=== PATIENT | female | born 1955 | race Caucasian/White ===

== ENCOUNTER 2022-01-31 09:31 | Outpatient (CLI) | payer MEDICARE, SELFPAY ==
--- OUTSIDE RECORDS SUMMARY | 2022-01-31 09:35 | XMS_ITS | Encounter Summary ---
:1955 Author Organization [facility] Address [address] [place] [address] Care Team Providers Name Role Phone Elsewhere, Pcp Primary Care Provider Unavailable Reason for Referral Outpatient (Routine) - Authorized Specialty Diagnoses / Procedures Referred By Contact Refer red To Contact Diagnoses Pain Knee Bilateral Primary Osteoarthritis Knee Bilateral Kimberlyn Alvarez APRN, [facility] [place] [facility] Procedures lno-jmjz-zhsqxqdn-elbow arthrocentesis: Bilat knee joint C.N.P., D.N.P. [address] [place] [address] Referral ID Status Reason Start Date Expiration Date Visits V isits Requested Authorized [id number] Authorized 03/13/2021 03/13/2022 1 1 N MACHINE INTERFACE ENGINEER Reason for Visit Reason Comments Injection Visit Injection Visit Outpatient (Routine) - Closed Specialty Diagnoses / Procedures Referred By Contact Refer gilson To Contact Orthopedic Surgery Kimberlyn Alvarez APRN, [facility] [place] [facility] C.N.P., D.N.P. [address] [place] [address] Referral ID Status Reason Start Date Expiration Date Visits Requ ested Visits Authorized [id number] Closed 03/06/2021 03/06/2022 1 1 Encounter Details Date Type Department Care Team Description 03/13/2021 Office Visit Department of Kimberlyn Alvarez, Pain Knee B ilateral (Primary Dx); Orthopedic Surgery in [facility] Prima ry Osteoarthritis Knee Bilateral Virginia Wagoner D.N.P. [address] [place] [phone] Social History Tobacco Use Types Packs/Day Years Used Date Smoking Tobacco: Former Cigarettes Quit : 04/07/1987 Smokeless Tobacco: Never Alcohol Habits Answer Date Recorded How often do you have a drink containing 4 or more times a w [place] 07/30/2021 alcohol? How many drinks containing alcohol do you have 1 or 2 07/30/2021 on a typical day when you are drinking? How often do you have six or more drinks on one Never 07/30/2021 occasion? Social Isolation Answer Date Recorded In a typical week, how many times do you Twice a week 07/30/2021 talk on the phone with family, friends, or neighbors? How often do you get together with friends More than three t imes a week 07/30/2021 or relatives? How often do you attend religious or Patient refused 2021 yazidi services? Do you belong to any clubs or Yes 07/30/2021 organizations such as religious groups, unions, fraternal or athletic groups, or school groups? How often do you attend meetings of the More than 4 times pe r year 07/30/2021 clubs or organizations you belong to? Are you now , , , Living with partner 07/30/2021 , never or living with a partner? Physical Activity Answer Date Recorded On average, how many days per week do you engage in moderate to 4 days 07/30/2021 strenuous exercise (like walking fast, running, jogging, dancing, swimming, biking, or other activities that cause a light or heavy sweat)? On average, how many minutes do you engage in exercise at is 40 min 07/30/2021 level? Stress Answer Date Recorded Do you feel stress - tense, restless, nervous, or anxious, N ot at all 07/30/2021 or unable to sleep at night because your mind is troubled all the time - these days? Financial Resource Strain Answer Date Recorded How hard is it for you to pay for the very basics like Not h melba at all 07/30/2021 food, housing, medical care, and heating? Intimate Partner Violence Answer Date Recorded Within the last year, have you been afraid of your partner o r No 07/30/2021 ex-partner? Within the last year, have you been humiliated or emotionall y No 07/30/2021 abused in other ways by your partner or ex-partner? Within the last year, have you been kicked, hit, slapped, or No 07/30/2021 otherwise physically hurt by your partner or ex-partner? Within the last year, have you been raped or forced to have any No 07/30/2021 kind of sexual activity by your partner or ex-partner? Food Insecurity Answer Date Recorded Within the past 12 months, you worried that your food would Never true 07/30/2021 run out before you got money to buy more. Within the past 12 months, the food you bought just didn't N ever true 07/30/2021 last and you didn't have money to get more. Transportation Needs Answer Date Recorded In the past 12 months, has lack of transportation kept you f rom No 07/30/2021 medical appointments or from getting medications? In the past 12 months, has lack of transportation kept you f rom No 07/30/2021 meetings, work, or getting things needed for daily living? Housing Stability Answer Date Recorded In the last 12 months, was there a time when you were not ab le No 07/30/2021 to pay the mortgage or rent on time? In the last 12 months, how many places have you lived? 1 07/30/2021 In the last 12 months, was there a time when you did not hav e a No 07/30/[address] or slept in a alf (including now)? Education Answer Date Recorded What is the highest level of school Bachelor's degree (e.g., BA, AB, 03/10/2019 you have completed or the highest BS) degree you have received? 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 - 03/13/2021 8:00 AM CST Priscilla Fitzpatrick is a pleasant 65 y.o. female who has known significant osteoarthritis of her bilateral knee. She has had Euflexxa injections in the past which were very helpful. she is here today forher 2nd injection. She is noting discomfort in her knees and does not want her future activities to be limited by her knee pain. She has tried conservative therapy as well as non conservative therapy including yykb-jcg-zbltook analgesics which includes NSAIDs, activity modification, ice, physical therapy with continued home exercises.. ? Physical exam in general patient appears nondistressed. bilateral knee has no signs or symptoms of an infection. ?? Impression and plan- Priscilla Fitzpatrick is a very pleasant 65 y.o. who has known degenerative arthritis of the knee. She is here for 2nd of 3 Euflexxa injections. After brief discussion on benefits and as well as risks, consent form was obtained, per sterile technique using 1% lidocaine and the lateral approach 1 standard dose of Euflexa was injected into the bilateral knee without difficulty. ??Patient tolerated the procedure well. Will plan to see back in the following week for remainder of injections. Questions were answered N MACHINE INTERFACE ENGINEER documented in this encounter Procedure Notes Loreta Crowell R.N. - 03/13/2021 8:00 AM CSTAssociated Order(s): pox-cftz-xiapwfsb-elbow arthrocentesis: Bilat knee joint Post-Procedure Diagnose(s): Pain Knee Bilateral; Primary Osteoarthritis Knee Bilateral Knee site- Bilat knee joint : injection only Date/Time: 03/13/2021 8:27 AM Performed by: Kimberlyn Alvarez APRN, C.N.P., D.N.P. Authorized by: Kimberlyn Alvarez APRN, C.N.P., D.N.P. PROCEDURE DETAILS Procedure Location knee Knee site: Bilat knee joint Site prep: patient was prepped and draped in usual sterile fashion Procedural approach: anterolateral Procedure performed: injection only Needle gauge: 22 G Procedural Medication The following medications were administered at the target site(s) On the right: Local anesthetic: 5 mL lidocaine 10 mg/mL (1 %) Viscosupplement: 20 mg sodium hyaluronate (viscosup) 10 mg/mL(mw 2.4 -3.6 million) On the left: Local anesthetic: 5 mL lidocaine 10 mg/mL (1 %) Viscosupplement: 20 mg sodium hyaluronate (viscosup) 10 mg/mL(mw 2.4 -3.6 million) CONSENT Consent obtained: written PRE-PROCEDURE DETAILS Procedure purpose: therapeutic Site preparation: povidone-iodine SEDATION / ANESTHESIA Anesthesia method: none POST-PROCEDURE DETAILS Procedure completed successfully: yes Complications: no apparent complications Post-procedure instructions: avoid strenuous activity for 5 days Discharge instructions: dressing care and follow-up with ordering provider N MACHINE INTERFACE ENGINEER documented in this encounter Plan of Treatment Upcoming Encounters Date Type Specialty Care Team Description 02/02/2022 Immunization Family Medicine 02/12/2022 Office Visit Dermatology Lacy Dykes M.D. [address] [place], [place] [phone] (Lisha rk) 02/22/2022 Office Visit Orthopedic Surgery Kimberlyn Alvarez APRN, C.N.P., D.N.P. [address] [place], [place] [phone] (Wo rk) 03/12/2022 Diagnostic Otorhinolaryngology Blanka Carranza C.N.P. [address] [place] [address] Aleena Hassan Au.D. [address] [place] [phone] documented as of this encounter Procedures Procedure Name Priority Date/Time Associated Diagnosis Comme nts KS ARTHCS ASP/INJ Routine 03/13/2021 8:27 AM Pain Knee B ilateral Results for this MJR JT WO US HUMAN MACHINE INTERFACE ENGINEER Primary Osteoarthritis proce dure are in Knee Bilateral the results section. documented in this encounter Results KS ARTHCS ASP/INJ MJR JT WO US (03/13/2021 8:27 AM HUMAN MACHINE INTERFACE ENGINEER) Narrative MMODAL - 03/13/2021 8:27 AM HUMAN MACHINE INTERFACE ENGINEER Loreta Crowell R.N. ? 03/13/2021 12:16 PM Knee site- Bilat knee joint : injection only Date/Time: 03/13/2021 8:27 AM Performed by: Kimberlyn Alvarez APRN, C.N. PPhil, D.N.P. Authorized by: Kimberlyn Alvarez APRN, C.N .P., D.N.P. PROCEDURE DETAILS Procedure Location knee Knee site: Bilat knee joint Site prep: patient was prepped and drape d in usual sterile fashion ?? Procedural approach: anterolateral Procedure performed: injection only Needle gauge: 22 G Procedural Medication The following medications were administe red at the target site(s) On the right: Local anesthetic: 5 mL lidocaine 10 mg/m L (1 %) Viscosupplement: 20 mg sodium hyaluronat e (viscosup) 10 mg/mL(mw 2.4 -3.6 million) On the left: Local anesthetic: 5 mL lidocaine 10 mg/m L (1 %) Viscosupplement: 20 mg sodium hyaluronat e (viscosup) 10 mg/mL(mw 2.4 -3.6 million) CONSENT Consent obtained: written PRE-PROCEDURE DETAILS Procedure purpose: therapeutic Site preparation: povidone-iodine SEDATION / ANESTHESIA Anesthesia method: none POST-PROCEDURE DETAILS Procedure completed successfully: yes Complications: no apparent complications ?? Post-procedure instructions: avoid stren uous activity for 5 days Discharge instructions: dressing care an d follow-up with ordering provider Kimberlyn Alvarez APRN, C.N.P., D.N.P. PROCEDURE/MINOR CONNOR GICAL ORDERABLES Performing Organization Address City/State/ZIP Code Phon e Number MMODAL MMODAL NA documented in this encounter Visit Diagnoses Diagnosis Pain Knee Bilateral - Primary Primary Osteoarthritis Knee Bilateral documented in this encounter Administered Medications Inactive Administered Medications - up to 3 most recent administrations Medication Order MAR Action Action Date Dose Rate Site lidocaine 10 mg/mL (1 %) injection 5 Given 03/13/2021 8:27 AM CS T 5 mL mL (XYLOCAINE) 5 mL, infiltration, One-Time Injection, Starting on Fri03/13/21 at 0827, For 1 dose lidocaine 10 mg/mL (1 %) injection 5 mL Given 03/13/2021 8:27 AM HUMAN MACHINE INTERFACE ENGINEER 5 mL (XYLOCAINE) 5 mL, infiltration, One-Time Injection, Starting on Fri03/13/21 at 0827, For 1 dose sodium hyaluronate (viscosup) injection 20 mg Given 8:27 AM HUMAN MACHINE INTERFACE ENGINEER 20 mg (EUFLEXXA) 20 mg, intra-articular, One-Time Injection, Starting on Fri03/13/21 at 0827, For 1 dose sodium hyaluronate (viscosup) injection 20 mg Given 8:27 AM HUMAN MACHINE INTERFACE ENGINEER 20 mg (EUFLEXXA) 20 mg, intra-articular, One-Time Injection, Starting on Fri03/13/21 at 0827, For 1 dose documented in this encounter Additional Health Concerns Assessment Noted Time PHQ-9 Depression Total Score: 2 04/22/2015 11:24 AM CS T documented as of this encounter Care Teams Director Television Relationship Specialty Start Date End Date Elsewhere, Pcp PCP - General Family Medicine 06/16/20 documented as of this encounter
--- OUTSIDE RECORDS SUMMARY | 2022-01-31 09:35 | XMS_ITS | Encounter Summary ---
:1955 Author Organization [facility] Address [address] [place] [address] Care Team Providers Name Role Phone Elsewhere, Pcp Primary Care Provider Unavailable Encounter Details Date Type Department Care Team Description 04/13/2021 Orders Only [facility] Jennifer Carranza, [place] C.N.P. [address] [place] [phone] Social History Tobacco Use Types Packs/Day Years Used Date Smoking Tobacco: Former Cigarettes Quit : 04/07/1987 Smokeless Tobacco: Never Alcohol Habits Answer Date Recorded How often do you have a drink containing 4 or more times a w jamul 07/30/2021 alcohol? How many drinks containing alcohol [...] or relatives? How often do you attend judaism or Patient refused 2021 methodist services? Do you belong to any clubs or Yes 07/30/2021 organizations such as judaism groups, unions, fraternal or athletic groups, or [...] minutes do you engage in exercise at th is 40 min 07/30/2021 level? Stress Answer [...] place to sleep or slept in a halfway (including now)? Education Answer Date Recorded What is the highest level of school Bachelor's degree (e.g., BA, AB, 03/10/2019 you have completed or the highest BS) degree you have received? 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 [address] [place], [place] [phone] (Wo rk) 02/22/2022 Office Visit Orthopedic Surgery Kimberlyn Alvarez, JOSE DANIEL, C.N.P., D.N.P. [address] [place], [place] [phone] (Wo rk) 03/12/2022 Diagnostic Otorhinolaryngology Blanka Carranza, C.N.P. [address] [place] [address] Aleena Hassan Au.D. [address] [place] [address] documented as of this encounter Visit Diagnoses Not on filedocumented in this encounter Additional Health Concerns Assessment Noted Time PHQ-9 Depression Total Score: 2 04/22/2015 11:24 AM CS T documented as of this encounter Care Teams Sampler And Test Preparer Relationship Specialty Start Date End Date Elsewhere, Pcp PCP - General Family Medicine 06/16/20 documented as of this encounter
--- OUTSIDE RECORDS SUMMARY | 2022-01-31 09:35 | XMS_ITS | Encounter Summary ---
:1955 Author Organization [facility] Address [address] [place] [address] Care Team Providers Name Role Phone Elsewhere, Pcp Primary Care Provider Unavailable Reason for Visit Reason Comments Surgical Listing Encounter Details Date Type Department Care Team Description 09/14/2021 Clinical Communication Department of Kimberlyn Alvarez S urgical Listing Orthopedic Surgery [employer], C.N.P., in [place], D.N.[address] [address] [place], [place] [phone] (Work) [phone] Social History Tobacco Use Types Packs/Day Years Used Date Smoking Tobacco: Former Cigarettes Quit : 04/07/1987 Smokeless Tobacco: Never Alcohol Habits Answer Date Recorded How often do you have a drink containing 4 or more times a w tonto apache 07/30/2021 alcohol? How many drinks containing alcohol [...] or relatives? How often do you attend restorationist or Patient refused 2021 taoist services? Do you belong to any clubs or Yes 07/30/2021 organizations such as restorationist groups, unions, fraternal or athletic groups, or [...] place to sleep or slept in a senior care (including now)? Education Answer Date Recorded What is the highest level of school Bachelor's degree (e.g., BA, AB, 03/10/2019 you have completed or the highest BS) degree you have received? 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 - 09/19/2021 11:00 AM CDT Please cancel case on 10/09/2021. Telephone Encounter - Janeen Nguyễn R.N. - 09/19/2021 10:39 AM CDT TC from patient today cancelling surgery for 10/09/21 in [place]. All appointments have been cancelled. Telephone Encounter - Trish Bhatti R.N. - 09/14/2021 10:44 AM CDT Priscilla is scheduled for left shoulder arthroscopy with rotator cuff repair on October [address] Sweeney in [place]. documented in this encounter Plan of Treatment Upcoming Encounters Date Type Specialty Care Team Description 02/02/2022 Immunization Family Medicine 02/12/2022 Office Visit Dermatology Lacy Dykes M.D. [address] [place], [place] [phone] (Wo rk) 02/22/2022 Office Visit Orthopedic Surgery Kimberlyn Alvarez APRN, C.N.P., D.N.P. [address] [place], [place] [phone] (Wo rk) 03/12/2022 Diagnostic Otorhinolaryngology Blanka Carranza, C.N.P. [address] [place], [place] [phone] Aleena Hassan Au.D. [address] [place] [phone] documented as of this encounter Visit Diagnoses Not on filedocumented in this encounter Additional Health Concerns Assessment Noted Time PHQ-9 Depression Total Score: 2 04/22/2015 11:24 AM CS T documented as of this encounter Care Teams Pump Press Operator Relationship Specialty Start Date End Date Elsewhere, Pcp PCP - General Family Medicine 06/16/20 documented as of this encounter
--- OUTSIDE RECORDS SUMMARY | 2022-01-31 09:35 | XMS_ITS | Encounter Summary ---
:1955 Author Organization [facility] Address [address] [place] [address] Care Team Providers Name Role Phone Elsewhere, Pcp Primary Care Provider Unavailable Encounter Details Date Type Department Care Team Description 04/10/2021 Orders Only [facility] Ramu [place] D.D.S. [address] [place] [phone] [place] [address] [phone] (Wo rk) Social History Tobacco Use Types Packs/Day Years Used Date Smoking Tobacco: Former Cigarettes Quit : 04/07/1987 Smokeless Tobacco: Never Alcohol Habits Answer Date Recorded How often do you have a drink containing 4 or more times a w te-moak 07/30/2021 alcohol? How many drinks containing alcohol [...] or relatives? How often do you attend alevism or Patient refused 2021 hoahaoism services? Do you belong to any clubs or Yes 07/30/2021 organizations such as alevism groups, unions, fraternal or athletic groups, or [...] place to sleep or slept in a residential (including now)? Education Answer Date Recorded What is the highest level of school Bachelor's degree (e.g., BA, AB, 03/10/2019 you have completed or the highest BS) degree you have received? 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 [address] [place], [place] [phone] (Wo rk) 02/22/2022 Office Visit Orthopedic Surgery Kimberlyn Alvarez, JOSE DANIEL, C.N.P., D.N.P. [address] [place], [place] [phone] (Wo rk) 03/12/2022 Diagnostic Otorhinolaryngology Blanka Carranza, C.N.P. [address] [place] [address] Aleena Hassan Au.D. [address] [place] [phone] documented as of this encounter Visit Diagnoses Not on filedocumented in this encounter Additional Health Concerns Assessment Noted Time PHQ-9 Depression Total Score: 2 04/22/2015 11:24 AM CS T documented as of this encounter Care Teams Tonsorial Artist Relationship Specialty Start Date End Date Elsewhere, Pcp PCP - General Family Medicine 06/16/20 documented as of this encounter
--- OUTSIDE RECORDS SUMMARY | 2022-01-31 09:35 | XMS_ITS | Encounter Summary ---
:1955 Author Organization [facility] Address [address] [place] [address] Care Team Providers Name Role Phone Elsewhere, Pcp Primary Care Provider Unavailable Reason for Referral Outpatient (Routine) - Authorized Specialty Diagnoses / Procedures Referred By Contact Refer red To Contact Diagnoses Primary Osteoarthritis Knee Bilateral Pain Knee Bilateral Joy Moreno APRN, [facility] [place] [facility] Procedures mtt-wrsv-jezibazm-elbow arthrocentesis: Bilat knee joint C.N.P., D.N.P. [address] [place] [address] Referral ID Status Reason Start Date Expiration Date Visits V isits Requested Authorized [id number] Authorized 03/20/2021 03/20/2022 1 1 INATION EQUIPMENT OPERATOR Reason for Visit Reason Comments Injection Visit 3rd bilateral Euflexxa Injection Visit Outpatient (Routine) - Closed Specialty Diagnoses / Procedures Referred By Contact Refer gilson To Contact Orthopedic Surgery Kimberlyn Alvarez APRN, [facility] [place] [facility] C.N.P., D.N.P. [address] [place] [address] Referral ID Status Reason Start Date Expiration Date Visits Requ ested Visits Authorized [id number] Closed 03/06/2021 03/06/2022 1 1 Encounter Details Date Type Department Care Team Description 03/20/2021 Office Visit Department of Joy Moreno Primary Oste oarthritis Knee Bilateral (Primary Dx); Orthopedic Surgery in [place] in Knee Bilateral Virginia Wagoner D.N.P. [address] [place] [phone] Social History Tobacco Use Types Packs/Day Years Used Date Smoking Tobacco: Former Cigarettes Quit : 04/07/1987 Smokeless Tobacco: Never Alcohol Habits Answer Date Recorded How often do you have a drink containing 4 or more times a w [place] 07/30/2021 alcohol? How many drinks containing alcohol [...] or relatives? How often do you attend restorationism or Patient refused 2021 pentecostal services? 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 - 03/20/2021 8:00 AM CST SUBJECTIVE Priscilla Fitzpatrick is a pleasant 65 y.o. female who has known significant osteoarthritis of her bilateral knee(s). She continues to have pain most noted with activity and is here today to discuss options. She has tried conservative therapy as well as non conservative therapy including tkkq-lhl-xqgqmhr a nalgesics which includes NSAIDs, activity modification, ice, physical therapy with continued home exercises, and cortisone injection without any significant improvement. OBJECTIVE PHYSICAL EXAMINATION Patient appears nondistressed. bilateral knee has no signs or symptoms of an infection. There is 0-120?? flexion. Knee is stable to valgus and varus. DIAGNOSTICS X-ray of knee confirms degenerative arthritis of bilateral knee. ASSESSMENT / PLAN Priscilla Fitzpatrick is a very pleasant 65 y.o. who has known degenerative arthritis of the knee. It isimpairing on activities of daily living. She has tried conservative measures without improvement. Wedid discuss viscosupplementation treatment options as well as total knee arthroplasty as a more definitive treatment. She would like to proceed/continue with viscosupplementation injections - this willbe her 3rd in a series. After brief discussion on benefits and as well as risks, consent form was obtained, per sterile technique using 1% lidocaine and the lateral approach 1 standard dose of Euflexxawas injected into the bilateral knee without difficulty. Patient tolerated the procedure well. Will plan to see back in the following weeks for remainder of injections. Questions were answered. INATION EQUIPMENT OPERATOR documented in this encounter Procedure Notes Joy Moreno APRN, C.N.P., D.N.P. - 03/20/2021 8:00 AM CSTAssociated Order(s): eji-bkcs-bobvnyhc-elbow arthrocentesis: Bilat knee joint Post-Procedure Diagnose(s): Primary Osteoarthritis Knee Bilateral; Pain Knee Bilateral Knee site- Bilat knee joint Date/Time: 03/20/2021 8:10 AM Performed by: Joy Moreno APRN, C.N.P., D.N.P. Authorized by: Joy Moreno APRN, C.N.P., D.N.P. PROCEDURE DETAILS Procedure Location knee Knee site: Bilat knee joint Site prep: patient was prepped and draped in usual sterile fashion Procedural approach: anterolateral Needle gauge: 22 G Procedural Medication The following medications were administered at the target site(s) Local anesthetic: 3 mL lidocaine 10 mg/mL (1 %) Viscosupplement: 20 mg sodium hyaluronate (viscosup) 10 mg/mL(mw 2.4 -3.6 million) CONSENT Consent obtained: written PRE-PROCEDURE DETAILS Procedure purpose: therapeutic Site preparation: povidone-iodine SEDATION / ANESTHESIA Anesthesia method: none POST-PROCEDURE DETAILS Procedure completed successfully: yes Complications: no apparent complications Post-procedure instructions: avoid strenuous activity for 5 days Discharge instructions: dressing care and follow-up with ordering provider INATION EQUIPMENT OPERATOR documented in this encounter Plan of Treatment Upcoming Encounters Date Type Specialty Care Team Description 02/02/2022 Immunization Family Medicine 02/12/2022 Office Visit Dermatology Lacy Dykes M.D. [address] [place] [phone] (Lisha rk) 02/22/2022 Office Visit Orthopedic Surgery Kimberlyn Alvarez APRN, C.N.P., D.N.P. [address] [place], [place] [phone] (Lisha rk) 03/12/2022 Diagnostic Otorhinolaryngology Blanka Carranza C.N.PPhil [address] [place] [address] Aleena [place] [address] documented as of this encounter Procedures Procedure Name Priority Date/Time Associated Diagnosis Comme nts PA ARTHCS ASP/INJ Routine 03/20/2021 8:10 AM Primary Osteoarth ritis Results for this MJR JT WO US BROMINATION EQUIPMENT OPERATOR Knee Bilateral procedure are in Pain Knee Bilateral the resu lts section. documented in this encounter Results PA ARTHCS ASP/INJ MJR JT WO US (03/20/2021 8:10 AM BROMINATION EQUIPMENT OPERATOR) Narrative MMODAL - 03/20/2021 8:10 AM BROMINATION EQUIPMENT OPERATOR Joy Moreno APRN, C.N.P., D.N.P. ? 03/20/2021 12:24 PM Knee site- Bilat knee joint Date/Time: 03/20/2021 8:10 AM Performed by: Joy Moreno APRN, C. N.P., D.N.P. Authorized by: Joy Moreno APRN, C .N.P., D.N.P. PROCEDURE DETAILS Procedure Location knee Knee site: Bilat knee joint Site prep: patient was prepped and drape d in usual sterile fashion ?? Procedural approach: anterolateral Needle gauge: 22 G Procedural Medication The following medications were administe red at the target site(s) Local anesthetic: 3 mL lidocaine 10 mg/m L (1 %) [...] care an d follow-up with ordering provider Joy Moreno APRN, C.N.P., D.N.P. PROCEDURE/MINOR S URGICAL ORDERABLES Performing Organization Address City/State/ZIP Code Phon e Number MMODAL MMODAL NA documented in this encounter Visit Diagnoses Diagnosis Primary Osteoarthritis Knee Bilateral - Primary Pain Knee Bilateral documented in this encounter Administered Medications Inactive Administered Medications - up to 3 most recent administrations Medication Order MAR Action Action Date Dose Rate Site lidocaine 10 mg/mL (1 %) injection 3 Given 03/20/2021 8:10 AM CS T 3 mL mL (XYLOCAINE) 3 mL, infiltration, One-Time Injection, Starting on Fri03/20/21 at 0810, For 1 dose sodium hyaluronate (viscosup) injection 20 mg Given 8:10 AM BROMINATION EQUIPMENT OPERATOR 20 mg (EUFLEXXA) 20 mg, intra-articular, One-Time Injection, Starting on Fri03/20/21 at 0810, For 1 dose documented in this encounter Additional Health Concerns Assessment Noted Time PHQ-9 Depression Total Score: 2 04/22/2015 11:24 AM CS T documented as of this encounter Care Teams Tap Out Operator Relationship Specialty Start Date End Date Elsewhere, Pcp PCP - General Family Medicine 06/16/20 documented as of this encounter
--- OUTSIDE RECORDS SUMMARY | 2022-01-31 09:35 | XMS_ITS | Encounter Summary ---
:1955 Author Organization [facility] Address [address] [place] [address] Care Team Providers Name Role Phone Elsewhere, Pcp Primary Care Provider Unavailable Reason for Referral MRI/CAT/PET Scan (Routine) - Closed Specialty Diagnoses / Procedures Referred By Contact Refer red To Contact Radiology Diagnoses Sinusitis Chronic Jennifer Carranza C.N.P. [facility] [place] [facility] Procedures CT Sinuses without IV Contrast IN CT MAXFAC WO CNTRST [address] [place], [place] [address] Referral ID Status Reason Start Date Expiration Date Visits Requ ested Visits Authorized [id number] Closed 04/13/2021 04/13/2022 1 1 ER OPERATOR Reason for Visit MRI/CAT/PET Scan (Routine) - Closed Specialty Diagnoses / Procedures Referred By Contact Refer red To Contact Radiology Diagnoses Sinusitis Chronic Jennifer Carranza C.N.P. [facility] [place] [facility] Procedures CT Sinuses without IV Contrast IN CT MAXFAC WO CNTRST [address] [place], [place] [address] Referral ID Status Reason Start Date Expiration Date Visits Requ ested Visits Authorized [id number] Closed 04/13/2021 04/13/2022 1 1 Encounter Details Date Type Department Care Team Description 04/16/2021 Hospital Encounter Department of Jennifer Carranza Chronic Radiology in [place], [place] [address] [address] [place], [place] [phone] (Work) [phone] Social History Tobacco Use Types Packs/Day Years Used Date Smoking Tobacco: Former Cigarettes Quit : 04/07/1987 Smokeless Tobacco: Never Alcohol Habits Answer Date Recorded How often do you have a drink containing 4 or more times a w [place] 07/30/2021 alcohol? How many drinks containing alcohol [...] or relatives? How often do you attend roman catholic or Patient refused 2021 lutheran services? Do you belong to any clubs or Yes 07/30/2021 organizations such as roman catholic groups, unions, fraternal or athletic groups, or [...] place to sleep or slept in a intermediate (including now)? Education Answer Date Recorded What is the highest level of school Bachelor's degree (e.g., BA, AB, 03/10/2019 you have completed or the highest BS) degree you have received? 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 B.ANI/L.ACI/L.BERNICE/L.PLAN Take 1 capsule by 0 04/0 06/2012 /.TASH (PROBIOTIC mouth daily. FORMULA ORAL) calcium carbonate Take 500 mg by mouth. 0 (CALCIUM 500 ORAL) cholecalciferol, vitamin Take 1,000 Units by 0 D3, 1,000 Unit tablet mouth. EPINEPHrine 0.3 mg/0.3 See instructions 0 016 mL injection syringe fluconazole (DIFLUCAN) TAKE 1 TABLET BY 2 tablet 0 022 04/13/2022 150 mg tablet MOUTH ONE TIME AT THE ONSET OF SYMPTOMS. MAY REPEAT IN SEVEN DAYS IF NEEDED liothyronine Take 1 tablet by 0 06/05/2015 (for_CYTOMEL) 5 mcg mouth daily. tablet MULTIVITAMIN ORAL Take by mouth daily. 0 05/02/19 15 ondansetron ODT Take 1 tablet by 0 04/18/2015 (ZOFRAN-ODT) 4 mg mouth every 8 (eight) disintegrating tablet hours as needed for nausea. SYNTHROID 175 mcg tablet Take 1 tablet by 0 09/11 mouth daily. traZODone (DESYREL) 50 Take 1 tablet by 0 018 mg tablet mouth at bedtime as needed for sleep. valACYclovir (VALTREX) Take 1 tablet by 0 018 500 mg tablet mouth 2 (two) times a day. as needed valsartan (DIOVAN) 40 mg Take 2 tablets by 0 04/07 tablet mouth daily. ZINC ORAL Take by mouth. As 0 needed zolpidem (AMBIEN) 10 mg Take 0.5 tablets by 0 tablet mouth at bedtime. documented as of this encounter Plan of Treatment Upcoming Encounters Date Type Specialty Care Team Description 02/02/2022 Immunization Family Medicine 02/12/2022 Office Visit Dermatology Lacy Dykes M.D. [address] [place], [place] [phone] (Wo rk) 02/22/2022 Office Visit Orthopedic Surgery Kimberlyn Alvarez APRN C.N.P., D.N.P. [address] [place], [place] [phone] (Wo rk) 03/12/2022 Diagnostic Otorhinolaryngology Blanka Carranza C.N.P. [address] [place] [address] Aleena Hassan Au.D. [address] [place] [address] documented as of this encounter Procedures Procedure Name Priority Date/Time Associated Comments Diagnosis CT SINUSES RAD - Routine 04/16/2021 9:08 Sinusitis Chronic Result s for this WITHOUT IV (most inpatients AM FOLDER OPERATOR procedure a re in CONTRAST and all the results outpatients) section. documented in this encounter Results CT Sinuses without IV Contrast (04/16/2021 9:08 AM FOLDER OPERATOR) Anatomical Region Laterality Modality Head, Neuroradiology RST LOS, Neuroradiology ARZ LOS, N/A Computed Tomography Neuroradiology [facility]LA [facility] Specimen (Source) Anatomical Collection Method Collection Time Re ceived Time Location / / Volume Laterality 04/16/2021 10:34 AM FOLDER OPERATOR Impressions 04/16/2021 10:47 AM FOLDER OPERATOR 1. Polypoid lesion in the right maxillary sinus. This may represent a fungus ball. 2. Scattered minimal mucosal thickening as described. Narrative 04/16/2021 10:47 AM FOLDER OPERATOR EXAM: CT SINUSES WITHOUT IV CONTRAST FINDINGS: CT sinuses without contrast . Indication sinusitis. No available comparison. There is a mildly hyperattenuating polyp oid mass in the right maxillary sinus including a focal calcification. The foc al calcification would be somewhat unusual for a retention cyst or polyp an d raises the question of a fungus ball or other abnormality. Less likely, the a pparent calcification could represent gutter percha from the adjacent root can al. There is minimal mucosal thickening infe riorly in the left maxillary sinus. The maxillary ostia and infundibula are matthews nt, despite focal pneumatization of the right uncinate. Complex nasal septal dev iation with bilateral nasal septal spurs. The ethmoid air cells are essentially cl ear. The sphenoid sinuses are clear, with patent ostia. There is minimal mucosal thickening meet g the inferior frontal sinuses. Patent frontal ostia. Possible tiny right caudate head infarct . Bilateral carotid siphon and right vertebral artery calcification. Subcutan eous induration over the zygomas may represent prior cosmetic injections. Procedure Note Mack Matute M.D. - 04/16/2021Format ting of this note might be different from the original. EXAM: CT SINUSES WITHOUT IV CONTRAST FINDINGS: CT sinuses without contrast . Indication sinusitis. No available comparison. There is a mildly hyperattenuating polyp oid mass in the right maxillary sinus including a focal calcification. The foc al calcification would be somewhat unusual for a retention cyst or polyp an d raises the question of a fungus ball or other abnormality. Less likely, the a pparent calcification could represent gutter percha from the adjacent root can al. There is minimal mucosal thickening infe riorly in the left maxillary sinus. The maxillary ostia and infundibula are matthews nt, despite focal pneumatization of the right uncinate. Complex nasal septal dev iation with bilateral nasal septal spurs. The ethmoid air cells are essentially cl ear. The sphenoid sinuses are clear, with patent ostia. There is minimal mucosal thickening meet g the inferior frontal sinuses. Patent frontal ostia. Possible tiny right caudate head infarct . Bilateral carotid siphon and right vertebral artery calcification. Subcutan eous induration over the zygomas may represent prior cosmetic injections. IMPRESSION: 1. Polypoid lesion in the right maxillar y sinus. This may represent a fungus ball. 2. Scattered minimal mucosal thickening as described. Jennifer FARIAS CT PROCEDURES documented in this encounter Visit Diagnoses Diagnosis Sinusitis Chronic documented in this encounter Additional Health Concerns Assessment Noted Time PHQ-9 Depression Total Score: 2 04/22/2015 11:24 AM CS T documented as of this encounter Care Teams Communications Tower Climber Relationship Specialty Start Date End Date Elsewhere, Pcp PCP - General Family Medicine 06/16/20 documented as of this encounter
--- OUTSIDE RECORDS SUMMARY | 2022-01-31 09:35 | XMS_ITS | Encounter Summary ---
:1955 Author Organization [facility] Address [address] [place] [address] Care Team Providers Name Role Phone Elsewhere, Pcp Primary Care Provider Unavailable Reason for Visit Appointment Request (Routine) - Closed Specialty Diagnoses / Procedures Referred By Contact Refer red To Contact Family Medicine Referral ID Status Reason Start Date Expiration Date Visits Requ ested Visits Authorized [id number] Closed 08/13/2021 08/13/2022 1 1 Encounter Details Date Type Department Care Team Description 08/15/2021 Immunization Department of Azam Bowers [facility], [place] [facility], in [address] [address] [place], [place] [address] [phone] Social History Tobacco Use Types Packs/Day Years Used Date Smoking Tobacco: Former Cigarettes Quit : 04/07/1987 Smokeless Tobacco: Never Alcohol Habits Answer Date Recorded How often do you have a drink containing 4 or more times a w [place] 07/30/2021 alcohol? How many drinks containing [...] or relatives? How often do you attend samaritan or Patient refused 2021 adventism services? Do you belong to any clubs or Yes 07/30/2021 organizations such as samaritan groups, unions, fraternal or athletic groups, or [...] place to sleep or slept in a usp (including now)? Education Answer Date Recorded What is the highest level of school Bachelor's degree (e.g., BA, AB, 03/10/2019 you have completed or the highest BS) degree you have received? 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 [address] [place], [place] [phone] (Wo rk) 02/22/2022 Office Visit Orthopedic Surgery Kimberlyn Alvarez APRN, C.N.P., D.N.P. [address] [place], [place] [phone] (Wo rk) 03/12/2022 Diagnostic Otorhinolaryngology Blanka Carranza, C.N.P. [address] [place], [place] [phone] Aleena Hassan Au.D. [address] [place] [address] documented as of this encounter Visit Diagnoses Not on filedocumented in this encounter Additional Health Concerns Assessment Noted Time PHQ-9 Depression Total Score: 2 04/22/2015 11:24 AM SAUL T documented as of this encounter Care Teams Stockkeeper Relationship Specialty Start Date End Date Elsewhere, Pcp PCP - General Family Medicine 06/16/20 documented as of this encounter
--- OUTSIDE RECORDS SUMMARY | 2022-01-31 09:35 | XMS_ITS | Encounter Summary ---
:1955 Author Organization [facility] Address [address] [place] [address] Care Team Providers Name Role Phone Elsewhere, Pcp Primary Care Provider Unavailable Reason for Referral Outpatient (Routine) - Closed Specialty Diagnoses / Procedures Referred By Contact Refer red To Contact Diagnoses Pain Shoulder Left Kimberlyn Alvarez APRN, [facility] [place] [facility] Procedures DX Shoulder Left 2+ Views C.N.P., D.N.P. [address] [place] [address] Referral ID Status Reason Start Date Expiration Date Visits Requ ested Visits Authorized [id number] Closed 08/03/2021 08/03/2022 1 1 Reason for Visit Outpatient (Routine) - Closed Specialty Diagnoses / Procedures Referred By Contact Refer red To Contact Diagnoses Pain Shoulder Left Kimberlyn Alvarez APRN, [facility] [place] [facility] Procedures DX Shoulder Left 2+ Views C.N.P., D.N.P. [address] [place] [address] Referral ID Status Reason Start Date Expiration Date Visits Requ ested Visits Authorized [id number] Closed 08/03/2021 08/03/2022 1 1 Encounter Details Date Type Department Care Team Description 08/03/2021 Hospital Encounter Department of Kimberlyn Alvarez, Pain Shoulder Left Radiology in [place], [place] D.N.P. [address] [place] [address] [phone] Social History Tobacco Use Types Packs/Day Years Used Date Smoking Tobacco: Former Cigarettes Quit : 04/07/1987 Smokeless Tobacco: Never Alcohol Habits Answer Date Recorded How often do you have a drink containing 4 or more times a w [place] 07/30/2021 alcohol? How many drinks containing alcohol [...] or relatives? How often do you attend buddhist or Patient refused 2021 denominational services? 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 B.ANI/L.ACI/L.BERNICE/L.PLAN Take 1 capsule by 0 04/06/2012 /.TASH (PROBIOTIC mouth daily. FORMULA ORAL) calcium [...] 06/05/2015 (for_CYTOMEL) 5 mcg mouth daily. tablet meclizine (ANTIVERT) 25 0 06/30/2021 mg tablet MULTIVITAMIN ORAL Take by mouth daily. [...] Visit Dermatology Lacy Dykes M.D. [address] [place], [place] [phone] (Wo rk) 02/22/2022 Office Visit Orthopedic Surgery Kimberlyn Alvarez APRN, C.N.P., D.N.P. [address] [place], [place] [phone] (Wo rk) 03/12/2022 Diagnostic Otorhinolaryngology Blanka Carranza C.N.P. [address] [place], [place] [phone] Aleena Hassan Au.D. [address] [place] [address] documented as of this encounter Procedures Procedure Name Priority Date/Time Associated Comments Diagnosis DX SHOULDER LEFT RAD - Routine 08/03/2021 10:05 Pain Shoulder Resul ts for this 2+ VIEWS (most inpatients AM CDT Left procedure a re in and all the results outpatients) section. documented in this encounter Results DX Shoulder Left 2+ Views (08/03/2021 10:05 AM CDT) Anatomical Region Laterality Modality Upper Extremity, Shoulder, Musculoskeletal RST LOS, Left Digital Radiography Musculoskeletal ARZ LOS, Muskuloskeletal FLA LOS Specimen (Source) Anatomical Collection Method Collection Time Re ceived Time Location / / Volume Laterality 08/03/2021 12:29 PM CDT Impressions 08/03/2021 12:35 PM CDT 1. No acute abnormalities are identified in the left shoulder. 2. Mild osteoarthritis in the glenohumer al and acromioclavicular joints. Narrative 08/03/2021 12:35 PM CDT EXAM: DX SHOULDER LEFT 2+ VIEWS COMPARISON: Chest x-ray 06/14/2010 FINDINGS: No acute fractures or dislocat ions are seen. The left shoulder is mildly demineralized. There is mild osteoarthritis in the temo ohumeral and acromioclavicular joints. Incidentally noted are aortic calcifications. Procedure Note Tim Burns M.D. - 08/03/2021Format ting of this note might be different from the original. EXAM: DX SHOULDER LEFT 2+ VIEWS COMPARISON: Chest x-ray 06/14/2010 FINDINGS: No acute fractures or dislocat ions are seen. The left shoulder is mildly demineralized. There is mild osteoarthritis in the temo ohumeral and acromioclavicular joints. Incidentally noted are aortic calcifications. IMPRESSION: 1. No acute abnormalities are identified in the left shoulder. 2. Mild osteoarthritis in the glenohumer al and acromioclavicular joints. Kp Rios APRN.N.P., D.N.P. IMG DIAGNOSTIC IMAG ING PROCEDURES documented in this encounter Visit Diagnoses Diagnosis Pain Shoulder Left documented in this encounter Additional Health Concerns Assessment Noted Time PHQ-9 Depression Total Score: 2 04/22/2015 11:24 AM CS T documented as of this encounter Care Teams Hairspring Truing Inspector Relationship Specialty Start Date End Date Elsewhere, Pcp PCP - General Family Medicine 06/16/20 documented as of this encounter
--- OUTSIDE RECORDS SUMMARY | 2022-01-31 09:35 | XMS_ITS | Encounter Summary ---
:1955 Author Organization [facility] Address [address] [place] [address] Care Team Providers Name Role Phone Elsewhere, Pcp Primary Care Provider Unavailable Encounter Details Date Type Department Care Team Description 09/19/2021 Clinical Communication Department of Kimberlyn Alvarez, Orthopedic Surgery in [facility] [place] D.N.P. [address] [place] [address] [place] [phone] Social History Tobacco Use Types Packs/Day Years Used Date Smoking Tobacco: Former Cigarettes Quit : 04/07/1987 Smokeless Tobacco: Never Alcohol Habits Answer Date Recorded How often do you have a drink containing 4 or more times a w [place] 07/30/2021 alcohol? How many drinks containing alcohol [...] or relatives? How often do you attend taoist or Patient refused 2021 tenriism services? Do you belong to any clubs or Yes 07/30/2021 organizations such as taoist groups, unions, fraternal or athletic groups, or [...] place to sleep or slept in a group home (including now)? Education Answer Date Recorded What is the highest level of school Bachelor's degree (e.g., BA, AB, 03/10/2019 you have completed or the highest BS) degree you have received? 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 - 09/19/2021 10:41 AM CDT Surgery cancelled. Telephone Encounter - Esther Mcelroy - 09/19/2021 9:36 AM CDT Patient would like to cancel their upcoming surgery with Dr. Sweeney on 10/09/21. Patient does not want to reschedule at this time. Patient had decided to not do surgery right now. All appts have been cancelled as well documented in this encounter Plan of Treatment Upcoming Encounters Date Type Specialty Care Team Description 02/02/2022 Immunization Family Medicine 02/12/2022 Office Visit Dermatology Lacy Dykes M.D. [address] [place], [place] [phone] (Wo rk) 02/22/2022 Office Visit Orthopedic Surgery Kimberlyn Alvarez, JOSE DANIEL, C.N.P., D.N.P. [address] [place], [place] [phone] (Wo rk) 03/12/2022 Diagnostic Otorhinolaryngology Blanka Carranza C.N.PPhil [address] [place], [place] [id number] Aleena Hassan Au.D. [address] [place] [phone] documented as of this encounter Visit Diagnoses Not on filedocumented in this encounter Additional Health Concerns Assessment Noted Time PHQ-9 Depression Total Score: 2 04/22/2015 11:24 AM CS T documented as of this encounter Care Teams Milk Driver Relationship Specialty Start Date End Date Elsewhere, Pcp PCP - General Family Medicine 06/16/20 documented as of this encounter
--- OUTSIDE RECORDS SUMMARY | 2022-01-31 09:35 | XMS_ITS | Clinical Summary ---
:1955 Author Organization [facility] Address [address] [place] [address] Care Team Providers Name Role Phone Elsewhere, Pcp Primary Care Provider Unavailable Source Comments Patient records contain information from all sites at [facility]. For routine questions regarding patient records, call [phone] during business hours, M-F 8:00 AM - 5:00 PM Central Time. Record requests for emergency care only can be directed to [phone] at any time.[facility] Allergies Active Allergy Reactions Severity Noted Date Comments Diphtheria,Pertussis,T Other (see comments) 06/14/2010 No reaction listed in etanus,Polio Vacc Cerner Hylan G-F 20 Other (see comments) 06/22/2013 Synvisc - No reaction listed in Cerne r Pollen Extracts Other (see comments) 07/03/2013 No r eaction listed in Cerner Wasp Venom Other (see comments) 12/31/2010 Hornet - No reaction listed in Cerne r Medications Medication Sig Dispensed Refills Start Date End Date Status zolpidem (AMBIEN) 10 Take 0.5 tablets 0 01/04/2016 Active mg tablet by mouth at bedtime. valsartan (DIOVAN) 40 Take 2 tablets by 0 04/18/2016 Active mg tablet mouth daily. EPINEPHrine 0.3 See instructions 0 04/18/2015 Active mg/0.3 mL injection syringe liothyronine Take 1 tablet by 0 06/05/2015 Active (for_CYTOMEL) 5 mcg mouth daily. tablet MULTIVITAMIN ORAL Take by mouth 0 05/02/2014 Active daily. B.ANI/L.ACI/L.BERNICE/L.P Take 1 capsule by 0 07/08/2012 Active FRED/L.TASH (PROBIOTIC mouth daily. FORMULA ORAL) ondansetron ODT Take 1 tablet by 0 04/18/2015 Active (ZOFRAN-ODT) 4 mg mouth every 8 disintegrating tablet (eight) hours as needed for nausea. SYNTHROID 175 mcg Take 1 tablet by 0 09/11/2017 Active tablet mouth daily. traZODone (DESYREL) Take 1 tablet by 0 08/18/2017 Active 50 mg tablet mouth at bedtime as needed for sleep. atorvastatin Take 1 tablet by 0 12/09/2017 Active (LIPITOR) 10 mg mouth every other tablet day. valACYclovir Take 1 tablet by 0 12/11/2017 Active (VALTREX) 500 mg mouth 2 (two) tablet times a day. as needed cholecalciferol, Take 1,000 Units 0 Active vitamin D3, 1,000 by mouth. Unit tablet ZINC ORAL Take by mouth. As 0 Ac tive needed calcium carbonate Take 500 mg by 0 Active (CALCIUM 500 ORAL) mouth. meclizine (ANTIVERT) 0 06/30/2021 Active 25 mg tablet fluconazole TAKE 1 TABLET BY 2 tablet 0 04/13/2021 04/13/2022 Active (DIFLUCAN) 150 mg MOUTH ONE TIME AT tablet THE ONSET OF SYMPTOMS. MAY REPEAT IN SEVEN DAYS IF NEEDED amoxicillin-pot TAKE 1 TABLET BY 14 tablet 0 04/13/20212022 Active clavulanate MOUTH TWO TIMES A (AUGMENTIN) 875-125 DAY mg per tablet amoxicillin-pot TAKE 1 TABLET BY 14 tablet 0 04/10/20212022 Active clavulanate MOUTH TWO TIMES A (AUGMENTIN) 875-125 DAY UNTIL GONE mg per tablet Active Problems Problem Noted Date Tear Rotator Cuff Subsequent Left 09/14/2021 Overview: Added automatically from request for annabelle duncan [id number] Pain Knee Left 11/16/2019 Overview: Added automatically from request for annabelle duncan [id number] Anterior Cruciate Ligament Reconstruction Status Post 05/29/2017 Hypertension NOS 05/26/2017 Hypothyroidism 05/26/2017 Hyperlipidemia 05/26/2017 Pain Knee Right 05/22/2017 Overview: Added automatically from request for annabelle duncan [id number] Depression/Beckie/Bipolar NOS 04/18/2015 Overview: Disorder Mood NOS Dysthymia 06/11/2011 Overview: Dysthymic Disorder Limitation Of Motion Finger Right Follow Up Examination Postoperative Visit Vertigo Benign Paroxysmal Positional Left Vertigo Benign Paroxysmal Positional Bilateral Immunizations Name Administration Dates Next Due HZV (ZOSTAVAX) 05/02/2014 Influenza TIV (IM) 04/30/2016, 02/04/2014, 03/20/2012, 02/08/2005 Influenza high dose QV(65 years or 01/25/2021 older) (PF) Influenza, Injectable, Mdck, 02/27/2013 Preservative Free, Quadrivalent Influenza, Unspecified 01/18/2015, 02/05/2014, 02/27/2013, 01/20/2013, 03/20/2012 PPSV23 01/25/2021 RZV (SHINGRIX) 08/02/2020, 01/14/2020 SARS-COV-2 (COVID-19) - PFIZER (12 03/05/2021, 07/17/2020, 0 06/21/2020 years or older) SARS-COV-2 (COVID-19) - PFIZER TS(12 08/15/2021 years or older) Td (Adult), adsorbed 12/14/2001 Tdap 10/14/2008, 11/25/2005 influenza vaccine QV(FLUBLOK) (18 12/30/2019, 02/01/2019 years or older) (PF) influenza vaccine quad 02/28/2017 (FLUZONE/FLUARIX) (6 months and older)(PF) Family History Medical History Relation Name Comments Hyperlipidemia Brother Basal cell carcinoma Father Coronary artery disease Father Heart attack Father in age 40s Hyperlipidemia Father Hypertension Father Prostate cancer Father Basal cell carcinoma Mother Osteoporosis Mother Anesthesia problems Neg Hx Relation Name Status Comments Brother Father Mother Social History Tobacco Use Types Packs/Day Years Used Date Smoking Tobacco: Former Cigarettes Quit : 04/07/1987 Smokeless Tobacco: Never Alcohol Habits Answer Date Recorded How often do you have a drink containing 4 or more times a w [place] 07/30/2021 alcohol? How many drinks containing alcohol [...] or relatives? How often do you attend yazidi or Patient refused 2021 zoroastrianism services? Do you belong to any clubs or Yes 07/30/2021 organizations such as yazidi groups, unions, fraiCeutica or athletic groups, or school groups? How [...] place to sleep or slept in a half-way (including now)? Education Answer Date Recorded What is the highest level of school Bachelor's degree (e.g., BA, AB, 03/10/2019 you have completed or the highest BS) degree you have received? 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 Vital Signs Vital Sign Reading Time Taken Comments Blood Pressure 117/79 07/29/2019 9:00 AM CDT Pulse 78 07/29/2019 9:00 AM CDT Temperature 36.9 ??C (98.4 ??F) 03/12/2018 11:45 AM ORDER MANAGER Respiratory Rate 19 03/12/2018 11:30 AM ORDER MANAGER Oxygen Saturation 95% 03/12/2018 11:30 AM ORDER MANAGER Inhaled Oxygen Concentration - - Weight 70.3 kg (154 lb 15.7 oz) 08/18/2015 7:16 AM CDT Height 160 cm (5' 3) 03/12/2018 8:32 AM ORDER MANAGER Body Mass Index 27.12 08/18/2015 7:16 AM CDT Plan of Treatment Upcoming Encounters Date Type Specialty Care Team Description 02/02/2022 Immunization Family Medicine 02/12/2022 Office Visit Dermatology Lacy Dykes M.D. [address] [place], [place] [phone] (Wo rk) 02/22/2022 Office Visit Orthopedic Surgery Kimberlyn Alvarez APRN, C.N.P., D.N.P. [address] [place], [place] [phone] (Wo rk) 03/12/2022 Diagnostic Otorhinolaryngology Blanka Carranza, C.N.P. [address] [place], [place] [address] Aleena Hassan Au.D. [address] [place] [address] Health Maintenance Due Date Last Done Comments CT Colonography 1955 Cologuard 1955 Hepatitis C Screening 1955 Office Visit for Blood Pressure 1955 Check / Re-check Colonoscopy 07/02/2018 07/03/2011 Colorectal Cancer Surveillance 07/02/2018 DTaP,Tdap,and Td Vaccines (3 - Td 10/14/2018 10/14/2008, , or Tdap) 12/14/2001 Depression Screening (Annual 04/07/2021 PHQ-2) COVID-19 Vaccine (5 - Booster for 10/10/2021 08/15/2021, , Pfizer series) 07/17/2020, Additional history exists Mammogram 02/06/2022 02/06/2021, 01/20/2020, 01/18/2019, Additional history exists Creatinine Level 03/06/2022 03/06/2021, 01/06/2020, 08/18/2015, Additional history exists Potassium Level 03/06/2022 03/06/2021, 01/06/2020, 08/18/2015, Additional history exists Sodium Level 03/06/2022 03/06/2021, 01/06/2020, 08/18/2015, Additional history exists Thyroid Stimulating Hormone (TSH) 03/06/2022 03/06/2021, , test for thyroid function 10/02/2018, Additional history exists Fasting Glucose for Diabetes 03/06/2024 03/06/2021, 016, Screening 05/02/2014, Additional history exists Lipid (Cholesterol) Screening 03/06/2026 03/06/2021, 2019, 10/02/2018, Additional history exists Cervical Cancer Screening Discontinued 05/02/2014, 07/11/2011 , 06/14/2010 Zoster Vaccines Completed 08/02/2020, 01/14/2020, 05/02/2014 Fall Risk Screen (Annual) Completed 04/16/2021 Influenza Vaccine Completed 01/15/2022, 01/25/2021, 12/30/2019, Additional history exists Pneumococcal vaccine (65+ years) Completed 01/15/2022, Medical Devices Implanted Type Area Cuff Slitter Device Shelf Model / Identifier Expiration Serial / Date Lot Monson Rigidfix Btb 2.7 - [id number] Hardware Right: Depuy Mite k 07/06/2019 [id number] / Implanted: Qty: 1 on 05/28/2017 at [facility] e.g. Knee / pins/screws [id number] /rods Anch Sut Crk Scrw Ft 2.2 - [id number] Hardware Arthrex [id number]- [id number] / Implanted: Qty: 1 on 03/12/2018 by Anibal Larkin M.D. at [facility] e.g. / pins/screws /rods Interference Screw Knee Right: Quintin and [id number] 2019 [id number] / Implanted: Qty: 1 on 05/28/2017 at [facility] Imp lant Knee Nephew / [id number] Insurance Payer Benefit Plan / Subscriber ID Effective Dates Phone Addre ss Type Group [facility] [id number] 2020-Tato [phone] [address] [address] PPO BLUE [employer] MEDICARE PLAN t [address] [place], [place] [phone] Care Teams Rib Bender Relationship Specialty Start Date End Date Elsewhere, Pcp PCP - General Family Medicine 06/16/20
--- OUTSIDE RECORDS SUMMARY | 2022-01-31 09:35 | XMS_ITS | Encounter Summary ---
:1955 Author Organization [facility] Address [address] [place] [address] Care Team Providers Name Role Phone Elsewhere, Pcp Primary Care Provider Unavailable Reason for Referral Outpatient (Routine) - Closed Specialty Diagnoses / Procedures Referred By Contact Refer red To Contact Orthopedic Surgery Kimberlyn Alvarez APRN, [facility] Region C.N.P., D.N.P. [address] [place] [phone] Referral ID Status Reason Start Date Expiration Date Visits Requ ested Visits Authorized [id number] Closed 08/03/2021 08/03/2022 1 1 RI/CAT/PET Scan (Routine) - Closed Specialty Diagnoses / Procedures Referred By Contact Refer red To Contact Radiology Diagnoses Pain Shoulder Left Kimberlyn Alvarez APRN, [facility] Region Procedures MR Shoulder Left without IV Contrast [place] MRI UPR EXT JOINT WO CNTRST C.N.P., D.N.P. [address] [place] [phone] Referral ID Status Reason Start Date Expiration Date Visits Requ ested Visits Authorized [id number] Closed 08/03/2021 08/03/2022 1 1 utpatient (Routine) - Closed Specialty Diagnoses / Procedures Referred By Contact Refer red To Contact Diagnoses Pain Shoulder Left Kimberlyn Alvarez, JOSE DANIEL, [facility] Region Procedures DX Shoulder Left 2+ Views C.N.PPhil, D.N.P. [address] [place] [phone] Referral ID Status Reason Start Date Expiration Date Visits Requ ested Visits Authorized [id number] Closed 08/03/2021 08/03/2022 1 1 Reason for Visit Reason Comments Pain Has bothered her some for a few years and last couple of months have gotten worse, also did have fall an d landed on back of shoulder- seems like that pain is getting better. Appointment Request (Routine) - Closed Specialty Diagnoses / Procedures Referred By Contact Refer red To Contact Family Medicine Referral ID Status Reason Start Date Expiration Date Visits Requ ested Visits Authorized [id number] Closed 07/04/2021 07/04/2022 1 1 Encounter Details Date Type Department Care Team Description 08/03/2021 Comprehensive Visit Department of Kimberlyn Alvarez, Pain Shoulder Left Orthopedic Surgery Darrell SKYNGavino, ([place] Dx) [place] [address] [address] [place], [place] [phone] (Work) [phone] Social History Tobacco Use Types Packs/Day Years Used Date Smoking Tobacco: Former Cigarettes Quit : 04/07/1987 Smokeless Tobacco: Never Alcohol Habits Answer Date Recorded How often do you have a drink containing 4 or more times a w [place] 07/30/2021 alcohol? How many drinks containing alcohol [...] or relatives? How often do you attend advent or Patient refused 2021 faith services? Do you belong to any clubs or Yes 07/30/2021 organizations such as advent groups, unions, fraBlink (air taxi) or athletic groups, or school groups? 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 - 08/03/2021 10:00 AM CDT Priscilla is a very pleasant 65-year-old who comes in today with increasing pain of her left shoulder.She has had pain in her armpit for quite some time but did not limit her activities until most recently she fell and slipped on some ice hitting the posterior portion of her shoulder and has had increased pain with her activities. They are certain motions that seem to aggravate it more. She denies anyparticular weakness. There is no distal numbness or tingling noted. Physical exam-left shoulder with flexion to 130??, abduction to 100?? but does cause some discomfort, she does have slightly limited internal and external rotation when compared to the contralateral side. Her rotator cuff strength is 5/5. She does have pain with palpation at her biceps groove. Diagnostic studies x-ray of her left shoulder shows mild arthritis of her glenohumeral joint. Impression and plan- Priscilla is a very pleasant 65-year-old who is having left shoulder pain. I suspect a labral tear but would like to have more definitive diagnosis with MRI. Will plan to see her back for those results and formulate a plan of care. Her questions were answered documented in this encounter Plan of Treatment Upcoming Encounters Date Type Specialty Care Team Description 02/02/2022 Immunization Family Medicine 02/12/2022 Office Visit Dermatology Lacy Dykes M.D. [address] [place], [place] [phone] (Lisha rk) 02/22/2022 Office Visit Orthopedic Surgery Kimberlyn Alvarez APRN, C.N.P., D.N.P. [address] [place], [place] [phone] (Wo rk) 03/12/2022 Diagnostic Otorhinolaryngology Blanka Carranza, C.N.P. [address] [place] [address] Aleena Hassan Au.D. [address] [place] [address] Scheduled Referrals Name Type Priority Associated Order Schedule Diagnoses Orthopedic Surgery Outpatient Referral Routine Ex pected: office visit 08/03/2021, (clinic) Expires: 11/02/2022 documented as of this encounter Results MR Shoulder Left without IV Contrast (08/10/2021 9:04 AM CDT) Anatomical Region Laterality Modality Upper Extremity, Shoulder, Musculoskeletal RST LOS, Left Magnetic Resonance Musculoskeletal ARZ LOS, Muskuloskeletal FLA LOS Specimen (Source) Anatomical Collection Method Collection Time Re ceived Time Location / / Volume Laterality 08/10/2021 1:24 PM CDT Impressions 08/10/2021 1:35 PM CDT 1. Supraspinatus tendinosis with full-th ickness, partial width tearing of the posterior insertional fibers, measuring 8 mm. Otherwise, mild rotator cuff tendinosis. 2. Moderate arthropathy of the acromiocl avicular and glenohumeral joints. Glenohumeral joint effusion. Narrative 08/10/2021 1:35 PM CDT EXAM: MR SHOULDER LEFT WITHOUT IV CONTRAST COMPARISON:08/03/2021 radiographs FINDINGS: Supraspinatus tendinosis with full-thick ness, partial width tearing of the posterior insertional fibers at the conjoined tendon. Tear joseph sures up to 8 x 6 mm, example series 7 image 14 and series 9 image 15. No tendon retraction or muscul ar atrophy. Infraspinatus tendinosis without tearing . Teres minor is normal. Mild subscapularis tendinosis. Moderate arthropathy of the acromioclavi cular joint. Trace fluid in the subacromial subdeltoid bursa. Fluid surrounds the extra-articular long head of the bicipital tendon. The bicipital tendon is intact. Small to moderate glenohumeral joint eff usion. The inferior glenohumeral ligament is unremarkable. Moderate glenohumeral chondromalacia. Ge neralized degenerative irregularity of the labrum. Procedure Note Joshua Hernandez M.D. - 08/10/2021Formatt ing of this note might be different from the original. EXAM: MR SHOULDER LEFT WITHOUT IV CONTRA ST COMPARISON:08/03/2021 radiographs FINDINGS: Supraspinatus tendinosis with full-thick ness, partial width tearing of the posterior insertional fibers at the conjoined tendon. Tear joseph sures up to 8 x 6 mm, example series 7 image 14 and series 9 image 15. No tendon retraction or muscul ar atrophy. Infraspinatus tendinosis without tearing . Teres minor is normal. Mild subscapularis tendinosis. Moderate arthropathy of the acromioclavi cular joint. Trace fluid in the subacromial subdeltoid bursa. Fluid surrounds the extra-articular long head of the bicipital tendon. The bicipital tendon is intact. Small to moderate glenohumeral joint eff usion. The inferior glenohumeral ligament is unremarkable. Moderate glenohumeral chondromalacia. Ge neralized degenerative irregularity of the labrum. IMPRESSION: 1. Supraspinatus tendinosis with full-th ickness, partial width tearing of the posterior insertional fibers, measuring 8 mm. Otherwise, mild rotator cuff tendinosis. 2. Moderate arthropathy of the acromiocl avicular and glenohumeral joints. Glenohumeral joint effusion. Kimberlyn Alvarez APRN, C.N.P., D.N.P. IMG MRI PROCEDURES DX Shoulder Left 2+ Views (08/03/2021 10:05 [...] glenohumer al and acromioclavicular joints. Kp Rios APRN.N.María., D.N.P. IMG DIAGNOSTIC IMAG ING PROCEDURES documented in this encounter Visit Diagnoses Diagnosis Pain Shoulder Left - Primary Pain Shoulder Left Pain Shoulder Left documented in this encounter Additional Health Concerns Assessment Noted Time PHQ-9 Depression Total Score: 2 04/22/2015 11:24 AM CS T documented as of this encounter Care Teams Military Pilot Relationship Specialty Start Date End Date Elsewhere, Pcp PCP - General Family Medicine 06/16/20 documented as of this encounter
--- OUTSIDE RECORDS SUMMARY | 2022-01-31 09:35 | XMS_ITS | Encounter Summary ---
:1955 Author Organization [facility] Address [address] [place] [address] Care Team Providers Name Role Phone Elsewhere, Pcp Primary Care Provider Unavailable Reason for Referral Outpatient (Routine) - Authorized Specialty Diagnoses / Procedures Referred By Contact Refer gilson To Contact Anesthesiology Diagnoses Tear Rotator Cuff Subsequent Left Kimberlyn Alvarez APRN, [facility] C.N.P., D.N.P. [address] [place] [phone] Referral ID Status Reason Start Date Expiration Date Visits V isits Requested Authorized [id number] Authorized 09/14/2021 09/14/2022 1 1 Reason for Visit Reason Comments Follow-up Here for MRI results Outpatient (Routine) - Closed Specialty Diagnoses / Procedures Referred By Contact Brett riggins To Contact Orthopedic Surgery Kimberlyn Alvarez APRN, [facility] C.[facility]., D.N.P. [address] [place] [phone] Referral ID Status Reason Start Date Expiration Date Visits Requ ested Visits Authorized [id number] Closed 08/03/2021 08/03/2022 1 1 Encounter Details Date Type Department Care Team Description 09/14/2021 Office Visit Department of Kimberlyn Alvarez, Rudolph Freitas r Cuff Orthopedic Surgery in [place], CPhilNPhilP., Subse quent Left Virginia Wagoner D.N.P. (Primary Dx) [address] [place] [phone] Social History Tobacco Use Types Packs/Day Years Used Date Smoking Tobacco: Former Cigarettes Quit : 04/07/1987 Smokeless Tobacco: Never Alcohol Habits Answer Date Recorded How often do you have a drink containing 4 or more times a w [place] 07/30/2021 alcohol? How many drinks containing alcohol [...] or relatives? How often do you attend caodaism or Patient refused 2021 evangelical services? 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 - 09/14/2021 10:30 AM CDT Priscilla is a pleasant 66-year-old who comes in today for results of her left shoulder MRI. Diagnostic studies MRI results show 1. Supraspinatus tendinosis with full- thickness, partial width tearing of the posterior insertional fibers, measuring 8 mm. Otherwise, mild rotator cuff tendinosis. 2. Moderate arthropathy of the acromioclavicular and glenohumeral joints. Glenohumeral joint effusion. Pertinent medical history. She is a nontobacco user. Nondiabetic. No history of blood clots or bleeding disorders. No history of anesthesia complications with exception of significant nausea. Impression and plan- Priscilla is a very pleasant 66-year-old who has a full- thickness supraspinatus tearing. We discussed treatment options and her best treatment option as active as she is is a rotatorcuff repair. We discussed the risks and the benefits of surgery as well as preoperative and postoperative expectations. At this time we will set her up for a left shoulder arthroscopy, subacromial decompression, distal clavicle resection, with mini open rotator cuff repair and possible biceps tenotomy. She agrees and understands this plan her questions were answered She does report a significant amount of nausea post hand surgery in the past. She will discuss this with Anesthesia prior to surgery. documented in this encounter Plan of Treatment Upcoming Encounters Date Type Specialty Care Team Description 02/02/2022 Immunization Family Medicine 02/12/2022 Office Visit Dermatology Lacy Dykes M.D. [address] [place] [phone] (Wo rk) 02/22/2022 Office Visit Orthopedic Surgery Kimberlyn Alvarez APRN, C.N.PPhil, D.N.P. [address] [place], [place] [phone] (Wo rk) 03/12/2022 Diagnostic Otorhinolaryngology Blanka Carranza C.NPhilPPhil [address] [place], [place] [id number] Aleena Hassan Au.D. [address] [place] [address] Scheduled Referrals Name Type Priority Associated Order Schedule Diagnoses Pre Operative Outpatient Referral Routine Tear Rotator Cuff 1 Occurrences Evaluation [facility] Subsequent Left starting 0 09/14/2021 nurse consult until 12/16/19 23 (clinic) documented as of this encounter Visit Diagnoses Diagnosis Tear Rotator Cuff Subsequent Left - Prim radha documented in this encounter Additional Health Concerns Assessment Noted Time PHQ-9 Depression Total Score: 2 04/22/2015 11:24 AM CS T documented as of this encounter Care Teams Office Correspondent Relationship Specialty Start Date End Date Elsewhere, Pcp PCP - General Family Medicine 06/16/20 documented as of this encounter
--- OUTSIDE RECORDS SUMMARY | 2022-01-31 09:35 | XMS_ITS | Encounter Summary ---
:1955 Author Organization [facility] Address [address] [place] [address] Care Team Providers Name Role Phone Elsewhere, Pcp Primary Care Provider Unavailable Reason for Visit Reason Comments Skin Check Appointment Request (Routine) - Incomplete Specialty Diagnoses / Procedures Referred By Contact Refer red To Contact Referral ID Status Reason Start Date Expiration Date Visits V isits Requested Authorized [id number] Incomplete 07/09/2021 07/09/2022 1 Encounter Details Date Type Department Care Team Description 09/17/2021 Comprehensive Visit Department of Lacy Dykes Dermatology in Michelet Roach M.D. (Primary Dx) [place], [place] [address] [phone] Social History Tobacco Use Types Packs/Day Years Used Date Smoking Tobacco: Former Cigarettes Quit : 04/07/1987 Smokeless Tobacco: Never Alcohol Habits Answer Date Recorded How often do you have a drink containing 4 or more times a w [place] 07/30/2021 alcohol? How many drinks containing alcohol [...] or relatives? How often do you attend adventist or Patient refused 2021 advent services? Do you belong to any clubs or Yes 07/30/2021 organizations such as adventist groups, unions, fraternal or athletic groups, or [...] place to sleep or slept in a penitentiary (including now)? Education Answer Date Recorded What is the highest level of school Bachelor's degree (e.g., BA, AB, 03/10/2019 you have completed or the highest BS) degree you have received? 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 - 09/17/2021 9:15 AM CDT SUBJECTIVE CHIEF COMPLAINT / REASON FOR VISIT Full skin cancer screening HISTORY OF PRESENT ILLNESS Priscilla Fitzpatrick is a pleasant 66 y.o. female who presents for a full skin cancer screening. The patient was last seen by me in Dermatology clinic on 03/06/21. She denies a personal history of skin cancer or family history for melanoma. She has a history of a nevus with severe atypia involving the right distal medial thigh, status post excision on 07/29/[address] Olivarez at [facility]. She uses sunscreen. She denies any new or changing lesions today. ?? MEDICAL HISTORY 1.??Right distal medial thigh: History of junctional nevus with severe atypia, status post re-excision on 07/29/[address] Olivarez at [facility] 2. Negative for skin cancer ?? FAMILY HISTORY 1. Non-melanoma skin cancer in mother and father 2. Negative for melanoma OBJECTIVE PHYSICAL EXAMINATION General: Awake, alert, in no acute distress, and with appropriate affect. Eyes: No scleral injection or icterus. No eyelid abnormalities. Lymph: No lower extremity edema. Skin: I have examined the scalp, face, neck, chest, abdomen, back, bilateral upper extremities, and bilateral lower extremities. My scribe (Hilary) served as a senior controls analyst for the entirety of the exam. Examination of the right distal medial thigh reveals no evidence for recurrence of the nevus x 1 with severe atypia. Examination of the face, trunk and extremities reveals multiple benign-appearing nevi and lentigines. Examination of the left upper chest reveals a small excoriation with no associated lesion. I recommend applying Vaseline for a few weeks. Follow up if not resolving. Examination of the skin just lateral to the left eye reveals 1-2 very small barely elevated skin tags which are not easily amenable to removal with scissor snip so I have recommended observation for now. Examination today reveals no suspicious lesions for skin cancer. ASSESSMENT / PLAN #1 Face, trunk and extremities: Multiple nevi and lentigines The ABCDE criteria for melanoma was reviewed with the patient. None of the patient's nevi reach the clinical threshold for biopsy. I recommend continued sun protection, self-skin examinations, and observation. Should any of the patient's nevi change in size, color, texture, or shape or develop symptoms such as itching or bleeding, I recommend an immediate return visit for reassessment. #2 Right distal medial thigh: Junctional nevus with severe atypia, status post re-excision on 07/29/[address] Olivarez at [facility], no recurrence ?? No clinical evidence of local recurrence today. Recommended monthly self-skin examinations to evaluate for new, changing, symptomatic, or otherwise worrisome lesions. Signs and symptoms of skin cancer discussed. Photoprotection was recommended. Return to Dermatology in 6 months for a full skin exam or immediately if any new or changing lesions are noted. PATIENT EDUCATION: Ready to learn. No apparent learning barriers were identified. Learning preferences include listening. Explained diagnosis and treatment plan; patient/guardian of patient expressed understanding of thecontent. By signing my name below, I, Hilary Marques, attest that this documentation has been prepared under the direction and in the presence of Kalaaji, Amer N, M.D. Electronically Signed: tiana Humphrey. 09/17/2021. 8:35 AM CDT. I, Lacy Dykes M.D., personally performed the services described in this documentation. All medical record entries made by the jaironibcelso were at my direction and in my presence. I have reviewed the chart and discharge instructions (if applicable) and agree that the record reflects my personal performance and is accurate and complete. Lacy Dykes M.D. documented in this encounter Plan of Treatment Upcoming Encounters Date Type Specialty Care Team Description 02/02/2022 Immunization Family Medicine 02/12/2022 Office Visit Dermatology Lacy Dykes M.D. [address] [place], [place] [phone] (Wo rk) 02/22/2022 Office Visit Orthopedic Surgery Kimberlyn Alvarez, JOSE DANIEL, C.N.P., D.N.P. [address] [place], [place] [phone] (Wo rk) 03/12/2022 Diagnostic Otorhinolaryngology Blanka Carranza, C.N.P. [address] [place] [address] Aleena Hassan Au.D. [address] [place] [phone] documented as of this encounter Visit Diagnoses Diagnosis Nevi Multiple - Primary documented in this encounter Additional Health Concerns Assessment Noted Time PHQ-9 Depression Total Score: 2 04/22/2015 11:24 AM CS T documented as of this encounter Care Teams Product Development Assistant Relationship Specialty Start Date End Date Elsewhere, Pcp PCP - General Family Medicine 06/16/20 documented as of this encounter
--- OUTSIDE RECORDS SUMMARY | 2022-01-31 09:35 | XMS_ITS | Encounter Summary ---
:1955 Author Organization [facility] Address [address] [place] [address] Care Team Providers Name Role Phone Elsewhere, Pcp Primary Care Provider Unavailable Reason for Referral MRI/CAT/PET Scan (Routine) - Closed Specialty Diagnoses / Procedures Referred By Contact Refer red To Contact Radiology Diagnoses Pain Shoulder Left Kimberlyn Alvarez APRN, [facility] [place] [facility] Procedures MR Shoulder Left without IV Contrast MA MRI UPR EXT JOINT WO CNTRST C.N.P., D.N.P. [address] [place] [phone] Referral ID Status Reason Start Date Expiration Date Visits Requ ested Visits Authorized [id number] Closed 08/03/2021 08/03/2022 1 1 Reason for Visit MRI/CAT/PET Scan (Routine) - Closed Specialty Diagnoses / Procedures Referred By Contact Refer red To Contact Radiology Diagnoses Pain Shoulder Left Kimberlyn Alvarez APRN, [facility] [place] [facility] Procedures MR Shoulder Left without IV Contrast MA MRI UPR EXT JOINT WO CNTRST C.N.P., D.N.P. [address] [place] [phone] Referral ID Status Reason Start Date Expiration Date Visits Requ ested Visits Authorized [id number] Closed 08/03/2021 08/03/2022 1 1 Encounter Details Date Type Department Care Team Description 08/10/2021 Hospital Encounter Department of Kimberlyn Alvarez, Pain Shoulder Left Radiology in [place] D.N.P. [address] [phone] Social History Tobacco Use Types Packs/Day Years [...] or relatives? How often do you attend pentecostalism or Patient refused 2021 amish services? Do you belong to any clubs or Yes 07/30/2021 organizations such as pentecostalism groups, unions, fraternal or athletic groups, or [...] place to sleep or slept in a jail (including now)? Education Answer Date Recorded What is the highest level of school Bachelor's degree (e.g., BA, AB, 03/10/2019 you have completed or the highest BS) degree you have received? 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 FORMULA ORAL) calcium carbonate [...] Dermatology Lacy Dykes M.D. [address] [place], [place] [phone] (Wo rk) 02/22/2022 Office Visit Orthopedic Surgery Kimberlyn Alvarez APRN, C.N.P., D.N.P. [address] [place], [place] [phone] ([facility]) 03/12/2022 Diagnostic Otorhinolaryngology Blanka Carranza, C.N.P. [address] [place], [place] [phone] Aleena Hassan Au.D. [address] [place] [phone] documented as of this encounter Procedures Procedure Name Priority Date/Time Associated Comments Diagnosis MR SHOULDER LEFT RAD - Routine 08/10/2021 9:04 Pain Shoulder Result s for this WITHOUT IV (most inpatients AM CDT Left procedure a re in CONTRAST and all the results outpatients) section. documented in this encounter Results MR Shoulder Left without [...] avicular and glenohumeral joints. Glenohumeral joint effusion. Kp Rios APRN.N.P., D.N.P. IMG MRI PROCEDURES documented in this encounter Visit Diagnoses Diagnosis Pain Shoulder Left documented in this encounter Additional Health Concerns Assessment Noted Time PHQ-9 Depression Total Score: 2 04/22/2015 11:24 AM CS T documented as of this encounter Care Teams Scarrer Relationship Specialty Start Date End Date Elsewhere, Pcp PCP - General Family Medicine 06/16/20 documented as of this encounter
--- OUTSIDE RECORDS SUMMARY | 2022-01-31 09:36 | XMS_ITS | Encounter Summary ---
:1955 Author Organization [facility] Address [address] [place] [address] Care Team Providers Name Role Phone Elsewhere, Pcp Primary Care Provider Unavailable Encounter Details Date Type Department Care Team Description 03/05/2021 Immunization Department of [facility] Azam Jones [facility], [facility], in [address] [address] [place], [place] [phone] Social History Tobacco Use Types Packs/Day Years Used Date Smoking Tobacco: Former Cigarettes Quit : 04/07/1987 Smokeless Tobacco: Never Alcohol Habits Answer Date Recorded How often do you have a drink containing 4 or more times a w [place] 07/30/2021 alcohol? How many drinks containing alcohol [...] or relatives? How often do you attend congregational or Patient refused 2021 restorationist services? Do you belong to any clubs or Yes 07/30/2021 organizations such as congregational groups, unions, fraternal or athletic groups, or [...] place to sleep or slept in a care home (including now)? Education Answer Date Recorded What is the highest level of school Bachelor's degree (e.g., BA, AB, 03/10/2019 you have completed or the highest BS) degree you have received? 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 [address] [place], [place] [phone] (Wo rk) 02/22/2022 Office Visit Orthopedic Surgery Kimberlyn Alvarez APRN, C.N.P., D.N.P. [address] [place], [place] [phone] (Wo rk) 03/12/2022 Diagnostic Otorhinolaryngology Blanka Carranza, C.N.P. [address] [place] [address] Aleena Hassan Au.D. [address] [place] [phone] documented as of this encounter Visit Diagnoses Not on filedocumented in this encounter Additional Health Concerns Assessment Noted Time PHQ-9 Depression Total Score: 2 04/22/2015 11:24 AM CS T documented as of this encounter Care Teams Electorate Officer Relationship Specialty Start Date End Date Elsewhere, Pcp PCP - General Family Medicine 06/16/20 documented as of this encounter
--- OUTSIDE RECORDS SUMMARY | 2022-01-31 09:36 | XMS_ITS | Encounter Summary ---
:1955 Author Organization [facility] Address [address] [place] [address] Care Team Providers Name Role Phone Elsewhere, Pcp Primary Care Provider Unavailable Encounter Details Date Type Department Care Team Description 03/06/2021 Hospital Encounter Department of Jennifer Carranza Disease; Laboratory Medicine M, C.N.P. Iron Deficiency Anemia Screening Exam; in [facility] [address] Hyperlipidemia; [place], [place] Incontinence Urinary [address] [place] [address] [facility] [phone] [place], [place] (Work) [phone] Social History Tobacco Use Types Packs/Day Years Used Date Smoking Tobacco: Former Cigarettes Quit : 04/07/1987 Smokeless Tobacco: Never Alcohol Habits Answer Date Recorded How often do you have a drink containing 4 or more times a w [place] 07/30/2021 alcohol? How many drinks containing alcohol [...] you attend yazidi or Patient refused 2021 samaritan services? Do you belong to any clubs or Yes 07/30/2021 organizations such as yazidi groups, unions, fraternal or athletic groups, or [...] place to sleep or slept in a fdc (including now)? Education Answer Date Recorded What is the highest level of school Bachelor's degree (e.g., BA, AB, 03/10/2019 you have completed or the highest BS) degree you have received? 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 B.ANI/L.ACI/L.BERNICE/L.PLAN/ Take 1 capsule by 0 06/2012 L.TASH (PROBIOTIC FORMULA mouth daily. ORAL) calcium carbonate Take 500 mg by mouth. 0 (CALCIUM 500 ORAL) cholecalciferol, vitamin Take 1,000 Units by 0 D3, 1,000 Unit tablet mouth. EPINEPHrine 0.3 mg/0.3 mL See instructions 0 04/07 injection syringe liothyronine Take 1 tablet by mouth 0 06/05/2015 (for_CYTOMEL) 5 mcg daily. tablet MULTIVITAMIN ORAL Take by mouth daily. 0 05/02/19 15 ondansetron ODT Take 1 tablet by mouth 0 04/18/19 16 (ZOFRAN-ODT) 4 mg every 8 (eight) hours disintegrating tablet as needed for nausea. SYNTHROID 175 mcg tablet Take 1 tablet by mouth 0 09/11/2017 daily. traZODone (DESYREL) 50 mg Take 1 tablet by mouth 0 08/18/2017 tablet at bedtime as needed for sleep. valACYclovir (VALTREX) Take 1 tablet by mouth 0 0 12/11/2017 500 mg tablet 2 (two) times a day. as needed [...] Visit Dermatology Lacy Dykes M.D. [address] [place], [place] [phone] (Wo rk) 02/22/2022 Office Visit Orthopedic Surgery Kimberlyn Alvarez APRN, C.N.P., D.N.P. [address] [place], [place] [phone] (Wo rk) 03/12/2022 Diagnostic Otorhinolaryngology Blanka Carranza, C.N.P. [address] [place] [address] Aleena Hassan Au.D. [address] [place] [address] documented as of this encounter Procedures Procedure Name Priority Date/Time Associated Comments Diagnosis URINALYSIS WITH Routine 03/06/2021 7:27 AM Graves' Disea se Results for this MICROSCOPIC STOCK CRANE OPERATOR Iron Deficiency procedure ar e in Anemia Screening the results Exam section. Hyperlipidemia Incontinence Urinary documented in this encounter Results Urinalysis with Microscopic: Urine, Midstream (03/06/2021 7:27 AM STOCK CRANE OPERATOR) Analysis Performed At Patho logist Time Signature Source Urine, Urine, 03/06/2021 CN[facility] Midstream 7:27 AM STOCK CRANE OPERATOR Clarity Clear Clear 03/06/2021 [facility] 7:37 AM STOCK CRANE OPERATOR Color Yellow 03/06/2021 [facility] 7:37 AM STOCK CRANE OPERATOR Comment: ----REFERENCE VALUE---- Colorless Yellow [place] Blood Negative Negative 03/06/2021 7:37 AM STOCK CRANE OPERATOR CN[facility] Nitrite Negative Negative 03/06/2021 7:37 AM STOCK CRANE OPERATOR [facility] Leukocyte Esterase Negative Negative 03/06/2021 7:37 AM CS T [facility] Protein Negative mg/dL 03/06/2021 7:37 AM STOCK CRANE OPERATOR CN[facility] Comment: ----REFERENCE VALUE---- Negative Trace Glucose Negative Negative mg/dL 03/06/2021 7:37 AM STOCK CRANE OPERATOR CN FL Ketones, QI(U) Negative Negative mg/dL 03/06/2021 7:[address] [facility] Bilirubin Negative Negative 03/06/2021 7:37 AM STOCK CRANE OPERATOR CN[facility] pH 7.0 5.0 - 8.0 03/06/2021 7:37 AM STOCK CRANE OPERATOR CN[facility] Specific [place] 1.015 1.001 - 1.035 03/06/2021 7:37 AM STOCK CRANE OPERATOR CN[facility] Urobilinogen 0.2 0.2 - 1.0 mg/dL 03/06/2021 7:37 AM CS T CNFL White Blood Cells None Seen /hpf 03/06/2021 7:48 AM STOCK CRANE OPERATOR CNFL Comment: ----REFERENCE VALUE---- Males: 0-3 Females: 0-10 Unknown: 0-10 Red Blood Cells Occ-2 0 - 2 /hpf 03/06/2021 7:48 AM STOCK CRANE OPERATOR CNFL Dysmorphic Red Blood Cells <=25 <=25 % 03/06/2021 7: 48 AM STOCK CRANE OPERATOR CN[facility] Specimen Anatomical Collection Method Collection Time Receive d Time (Source) Location / / Volume Laterality Urine (Urine, 03/06/2021 7:27 AM 03/06/20 7:27 Midstream) STOCK CRANE OPERATOR AM STOCK CRANE OPERATOR Jennifer Carranza C.N.P. LAB URINE ORDERABLES Performing Organization Address City/State/ZIP Code Phon e Number [facility]- [address] [place] [address] [place] [address] System in [address] documented in this encounter Visit Diagnoses Diagnosis Graves' Disease Iron Deficiency Anemia Screening Exam Hyperlipidemia Incontinence Urinary documented in this encounter Additional Health Concerns Assessment Noted Time PHQ-9 Depression Total Score: 2 04/22/2015 11:24 AM CS T documented as of this encounter Care Teams Grounds Supervisor Relationship Specialty Start Date End Date Elsewhere, Pcp PCP - General Family Medicine 06/16/20 documented as of this encounter
--- OUTSIDE RECORDS SUMMARY | 2022-01-31 09:36 | XMS_ITS | Encounter Summary ---
:1955 Author Organization [facility] Address [address] [place] [address] Care Team Providers Name Role Phone Elsewhere, Pcp Primary Care Provider Unavailable Reason for Visit Physical Therapy (Routine) - Closed Specialty Diagnoses / Procedures Referred By Contact Refer red To Contact Diagnoses Vertigo Benign Paroxysmal Positional Bilateral Iona Cui P.A.-C., [facility] Procedures PT Evaluate and treat P.A. [address] [place] [address] Referral ID Status Reason Start Date Expiration Date Visits Requ ested Visits Authorized [id number] Closed 01/05/2020 04/06/2020 1 1 Encounter Details Date Type Department Care Team Description 01/05/2020 Comprehensive Visit Department of Iona Cui P.A .-C., P.A. Vertigo Benign Rehabilitation Laura Solorzano, P.T. [address] [phone] Paroxysmal Services in [place], [place] Bilateral [address] [place] [phone] Social History Tobacco Use Types Packs/Day Years Used Date Smoking Tobacco: Former Cigarettes Quit : 04/07/1987 Smokeless Tobacco: Never Alcohol Habits Answer Date Recorded How often do you have a drink containing 4 or more times a w [place] 07/30/2021 alcohol? How many drinks containing alcohol [...] or relatives? How often do you attend confucianist or Patient refused 2021 pentecostalism services? Do you belong to any clubs or Yes 07/30/2021 organizations such as confucianist groups, unions, fraternal or athletic groups, or school groups? How often do you attend meetings of the More than 4 times [facility] 07/30/2021 clubs or organizations you belong to? 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 - 01/05/2020 11:30 AM CDT Physical Therapy Outpatient Evaluation/Treatment By co-signing this note, the provider certifies the therapy being provided to this patient is reasonable and necessary for the diagnosis or treatment of this patient. SUBJECTIVE Patient's Name: Priscilla Fitzpatrick Referring Provider: Iona Cui P.A.-C.* Visit Diagnosis: 1. Vertigo Benign Paroxysmal Positional Bilateral Reason for Referral: BPPV Onset Date: 01/01/20 Payor: [employer] / Plan: [employer] / Product Type: PPO / Epic Visit Count: 1 PERTINENT MEDICAL / SURGICAL HISTORY: Patient Active Problem List Diagnosis ??? Depression/Beckie/Bipolar NOS ??? Dysthymia ??? Pain Knee Right ??? Hypertension NOS ??? Hypothyroidism ??? Hyperlipidemia ??? Anterior Cruciate Ligament Reconstruction Status Post ??? Limitation Of Motion Finger Right ??? Follow Up Examination Postoperative Visit ??? Vertigo Benign Paroxysmal Positional Left ??? Pain Knee Left ??? Vertigo Benign Paroxysmal Positional Bilateral Past Surgical History: Procedure Laterality Date ??? ABDOMINAL SURGERY ??? ARTHROSCOPY RECONSTRUCTION ACL KNEE - ALLOGRAFT Right 05/28/2017 Procedure: ARTHROSCOPY RECONSTRUCTION ANTERIOR CRUCIATE LIGAMENT KNEE - ALLOGRAFT, partial medial menisectomy; Surgeon: Cedric Sweeney M.D.; Location: [facility] OR ??? BLADDER SURGERY 03/23/2003 Sling operation for stress incontinence ??? BLEPHAROPLASTY - LOWER LID Bilateral 10/01/2012 ??? BREAST BIOPSY 1988 ??? BREAST SURGERY Bilateral Breast Lifts ??? SECTION 1981 ??? COLPORRHAPHY 03/23/2003 Combined anterior posterior ??? HAND SURGERY Right 11/21/2004 Open treatment metacarpophalangeal dislocation ??? REDUCTION MAMMAPLASTY Bilateral 2004 Lift ??? REPAIR COLLATERAL LIGAMENT ULNAR - GAMEKEEPER'S THUMB Right 03/12/2018 Procedure: Repair Collateral Ligament Ulnar, Skier's Thumb; Surgeon: Anibal Larkin M.D.; Location: [facility] OR ??? TONSILLECTOMY Priscilla Fitzpatrick is a 64 y.o. female who presents to outpatient physical therapy for evaluation. Her symptoms consist of: 1. Vertigo Overall she reports her status remains the same. History of Present Illness:Reports 4-5 days ago she had onset of vertigo. She trialed the BrandtDaroff exercises but they have not helped at this time Previous Treatments: Treated previously For vertigo by this PT in 2019. Notes she has had episodes sine but was successful with porter-daroff exercises at home. Prior Level of Function: Level of [place]: Independent with ADLs and functional transfers Patient goals:Resolution of vertigo OBJECTIVE REVIEW OF SYSTEMS Neurological ROS: positive for - dizziness PHYSICAL EXAM Pain: n/a Ortho Exam Symptoms Description of Symptoms: spinning/vertigo, lightheaded, imbalance, nauseated, woozy Duration of Symptoms: While in specific position Frequency of Symptoms: With positional changes Provoking Activities: rolling, bending forward, supine to / from sit Positional Testing [facility]: (Patient had minimal to no symptoms with testing. Noted feeling off in left posterior position. No nystagmus noted. Symptoms in 3rd postition with rolling to right for left post treatement. >1 minute of symptoms. 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 TREATMENT Treatment today consisted of: Canalith Repositioning: Performed treatment for left posterior x 2. In 2nd maneuver observed nystagmus in that position. Lateral/horizontal left beating was noted. Treated for left horizontal. Home Exercise Program/Education: Educated on modification of activity for the day and on BPPV. Contact monitoring: PPE used during therapy: Therapist was wearing the following PPE throughout entire session: surgicalmask, eye protection and gloves Patient was wearing a mask during therapy session: yes Assessment Clinical Impression: Ms. Fitzpatrick presents to physical therapy with signs and symptoms consistent with BPPV. Impairments: dizziness Functional Deficits: difficulty with transfers, inability to perform her ADLS and daily activities without provocation of symptoms. Rehab Potential: Ms. Fitzpatrick has Excellent potential to achieve established physical therapy goalswithin the time frame outlined below, provided she actively participates in her physical therapy treatment plan and home program. Comorbidities: htn, hyperlipidemia, hx vertigo Personal Factors: None Clinical Presentation: Evolving Examination elements: 1-2 Clinical Decision Making: Low: no complicating factors, 1-2 eval elements, stable clinical presentation Functional Goals and Timeframes: PT Goal #1: Patient will have complete resolution of her vertigo symptoms in 2 weeks PT Goal #1 Date: 01/19/20 PT Goal #2: Patient will return to her regular exercise routine without symptoms PT Goal #2 Date: 01/19/20 Plan Ms. Fitzpatrick was educated regarding evaluative findings, diagnosis, prognosis, potential risks and benefits of rehabilitation interventions. A collaborative effort was used to establish goals and planof care. She was informed of her right to make decisions regarding her care, including refusal of examination or treatment or selection of services from another provider if desired. The treatment plan may be progressed or modified based upon her response to treatment. Treatment Plan: Start of Plan of Care: 01/05/2020 Number of Visits: 5 visits PT Duration: 3 weeks PT Frequency: Monitor status Treatment interventions may include: Neuromuscular re-education, Self-care / Home management(canalith repositioning maneuver) Plan for next session: Reassess BPPV. Time Spent with Patient PT Evaluation (min): 25 min Time Calculation Total Treatment Time (min): 25 min Laura Solorzano P.T. Department of Rehabilitation Services in [address] [address] Dept: [phone] documented in this encounter Plan of Treatment Upcoming Encounters Date Type Specialty Care Team Description 02/02/2022 Immunization Family Medicine 02/12/2022 Office Visit Dermatology Lacy Dykes M.D. [address] [place], [place] [phone] (Wo rk) 02/22/2022 Office Visit Orthopedic Surgery Kimberlyn Alvarez APRN, C.N.P., D.N.P. [address] [place], [place] [phone] (Wo rk) 03/12/2022 Diagnostic Otorhinolaryngology Blanka Carranza, C.N.P. [address] [place] [address] Aleena Hassan Au.D. [address] [place] [address] documented as of this encounter Visit Diagnoses Diagnosis Vertigo Benign Paroxysmal Positional Ladarius ateral documented in this encounter Additional Health Concerns Assessment Noted Time PHQ-9 Depression Total Score: 2 04/22/2015 11:24 AM CS T documented as of this encounter Care Teams Community Educator Relationship Specialty Start Date End Date Elsewhere, Pcp PCP - General Family Medicine 01/05/20 06/13/20 documented as of this encounter
--- OUTSIDE RECORDS SUMMARY | 2022-01-31 09:36 | XMS_ITS | Encounter Summary ---
:[address] [facility] Address [address] [place] [address] Care Team Providers Name Role Phone Elsewhere, Pcp Primary Care Provider Unavailable Encounter Details Date Type Department Care Team Description 07/17/2020 Immunization Department of [facility] Azam Jones For COVID-19 Medicine, [employer] Erika Augustine. Vaccine Immunization Professional Building, [address] t in [address] [address] [place] [address] [phone] Social History Tobacco Use Types Packs/Day Years Used Date Smoking Tobacco: Former Cigarettes Quit : 04/07/1987 Smokeless Tobacco: Never Alcohol Habits Answer Date Recorded How often do you have a drink containing 4 or more times a w [place] 07/30/2021 alcohol? How many drinks containing alcohol [...] you attend advent or Patient refused 2021 tenriism services? Do you belong to any clubs or Yes 07/30/2021 organizations such as advent groups, unions, fraternal or athletic groups, or school groups? How often do you attend meetings of the More than 4 times [facility] year 07/30/2021 clubs or organizations you belong [...] place to sleep or slept in a [place] [facility] [place] facility (including now)? Education Answer Date Recorded What is the highest level of school Bachelor's degree (e.g., BA, AB, 03/10/2019 you have completed or the highest BS) degree you have received? 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 [address] [place], [place] [phone] (Wo rk) 02/22/2022 Office Visit Orthopedic Surgery Kimberlyn Alvarez APRN, C.N.P., D.N.P. [address] [place], [place] [phone] (Wo rk) 03/12/2022 Diagnostic Otorhinolaryngology Blanka Carranza, C.N.P. [address] [place] [address] Aleena Hassan Au.D. [address] [place] [address] documented as of this encounter Visit Diagnoses Diagnosis Encounter For COVID-19 Vaccine Immunizat ion documented in this encounter Additional Health Concerns Assessment Noted Time PHQ-9 Depression Total Score: 2 04/22/2015 11:24 AM CS T documented as of this encounter Care Teams Nursing Technician Relationship Specialty Start Date End Date Elsewhere, Pcp PCP - General Family Medicine 06/16/20 documented as of this encounter
--- OUTSIDE RECORDS SUMMARY | 2022-01-31 09:36 | XMS_ITS | Encounter Summary ---
:1955 Author Organization [facility] Address [address] [place] [address] Care Team Providers Name Role Phone Unavailable Primary Care Provider Unavailable Reason for Referral Outpatient (Routine) - Closed Specialty Diagnoses / Procedures Referred By Contact Refer red To Contact Diagnoses Primary Osteoarthritis Knee Bilateral Kimberlyn Alvarez APRN, [facility] [place] [facility] Procedures elf-qogm-tursqdwn-elbow arthrocentesis: L knee joint C.N.P., D.N.P. [address] [place] [address] Referral ID Status Reason Start Date Expiration Date Visits Requ ested Visits Authorized [id number] Closed 11/09/2019 11/08/2020 1 1 utpatient (Routine) - Closed Specialty Diagnoses / Procedures Referred By Contact Refer red To Contact Diagnoses Primary Osteoarthritis Knee Bilateral Kimberlyn Alvarez APRN, [facility] [place] [facility] Procedures axh-rfim-gsefdkzd-elbow arthrocentesis: R knee joint C.N.P., D.N.P. [address] [place] [address] Referral ID Status Reason Start Date Expiration Date Visits Requ ested Visits Authorized [id number] Closed 11/09/2019 11/08/2020 1 1 Reason for Visit Reason Comments Pain Pain Outpatient (Routine) - Closed Specialty Diagnoses / Procedures Referred By Contact Refer red To Contact Orthopedic Surgery Kimberlyn Alvarez, JOSE DANIEL, [facility] [place], [place] [address] [place] [phone] Referral ID Status Reason Start Date Expiration Date Visits Requ ested Visits Authorized [id number] Closed 11/02/2019 11/01/2020 1 1 Encounter Details Date Type Department Care Team Description 11/09/2019 Office Visit Department of Kimberlyn Alvarez, Primary Ost eoarthritis Orthopedic Surgery in [place], Knee Bilateral (Primary Virginia Wagoner D.N.P. Dx) [address] [phone] Social History Tobacco Use Types Packs/Day Years Used Date Smoking Tobacco: Former Cigarettes Quit : 04/07/1987 Smokeless Tobacco: Never Alcohol Habits Answer Date Recorded How often do you have a drink containing 4 or more times a w [place] 07/30/2021 alcohol? How many drinks containing alcohol [...] or relatives? How often do you attend bahai or Patient refused 2021 pentecostalism services? Do you belong to any clubs or Yes 07/30/2021 organizations such as bahai groups, unions, fraternal or athletic groups, or [...] place to sleep or slept in a prison (including now)? Education Answer Date Recorded What is the highest level of school Bachelor's degree (e.g., BA, AB, 03/10/2019 you have completed or the highest BS) degree you have received? 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 - 11/09/2019 8:00 AM CDT Priscilla Fitzpatrikc is a pleasant 64 y.o. female who has known significant osteoarthritis of her bilateral knee. She continues to have pain most noted with activity and is here today to discuss options. She has tried conservative therapy as well as non conservative therapy including qlas-fqp-bevumdb anal gesics which includes NSAIDs, activity modification, ice, physical therapy with continued home exercises, and cortisone injection without any significant improvement. ? Physical exam in general patient appears nondistressed. bilateral knee has no signs or symptoms of an infection. ?? Diagnostic studies- Xray of knee confirms degenerative arthritis of bilateral knee. ?? Impression and plan- Priscilla Fitzpatrick is a very pleasant 64 y.o. who has known degenerative arthritis of the knee. It is impairing on activities of daily living. She has tried conservative measures without improvement. She has had a positive response to viscosupplementation in the past She is here for her 2nd of 3 injections. ??After brief discussion on benefits and as well as risks, consent form was obtained, per sterile technique using 1% lidocaine and the lateral approach 1 standard dose of Euflexa was injected into the bilateral knee without difficulty. ??Patient tolerated the procedure well. Will plan to see back in the following week for remainder of injections. Questions were answered documented in this encounter Procedure Notes Trish Bhatti R.N. - 11/09/2019 8:00 AM CDTAssociated Order(s): snd-fmxq-xqvwadug-elbow arthrocentesis: R knee joint; raq-oxdt-igzavhcg-elbow ar throcentesis: L knee joint Post-Procedure Diagnose(s): Primary Osteoarthritis Knee Bilateral Knee site- R knee joint : injection only Date/Time: 11/09/2019 8:06 AM Performed by: Kimberlyn Alvarez APRN, C.N.PPhil, Sharon.N.PPhil Authorized by: Kimberlyn Alvarez APRN, Kp.N.P., D.N.P. PROCEDURE DETAILS Procedure Location knee Knee site: R knee joint Site prep: patient was prepped and draped in usual sterile fashion Patient position: seated Procedural approach: anterolateral Procedure performed: injection only Needle gauge: 22 G Procedural Medication The following medications were administered at the target site(s) Local anesthetic: 3 mL lidocaine 10 mg/mL (1 %) Viscosupplement: 20 mg sodium hyaluronate (viscosup) 10 mg/mL(mw 2.4 -3.6 million) CONSENT Consent obtained: written PRE-PROCEDURE DETAILS Procedure purpose: therapeutic Skin preparation: povidone-iodine SEDATION / ANESTHESIA Anesthesia method: none POST-PROCEDURE DETAILS Procedure completed successfully: yes Complications: no apparent complications Post-procedure instructions: avoid strenuous activity for 5 days Discharge instructions: dressing care and follow-up with ordering provider Knee site- L knee joint : injection only Date/Time: 11/09/2019 8:07 AM Performed by: Kimberlyn Alvarez APRN, C.N.P., D.N.P. Authorized by: Kimberlyn Alvarez APRN, C.N.P., D.N.P. PROCEDURE DETAILS Procedure Location knee Knee site: L knee joint Site prep: patient was prepped and draped in usual sterile fashion Patient position: seated Procedural approach: anterolateral Procedure performed: injection only Needle gauge: 22 G, length: 1 1/2 in Procedural Medication The following medications were administered at the target site(s) Local anesthetic: 3 mL lidocaine 10 mg/mL (1 %) Viscosupplement: 20 mg sodium hyaluronate (viscosup) 10 mg/mL(mw 2.4 -3.6 million) CONSENT Consent obtained: written PRE-PROCEDURE DETAILS Procedure purpose: therapeutic Skin preparation: povidone-iodine SEDATION / ANESTHESIA Anesthesia method: none POST-PROCEDURE DETAILS Procedure completed successfully: yes Complications: no apparent complications Post-procedure instructions: avoid strenuous activity for 5 days Discharge instructions: dressing care and follow-up with ordering provider documented in this encounter Plan of Treatment Upcoming Encounters Date Type Specialty Care Team Description 02/02/2022 Immunization Family Medicine 02/12/2022 Office Visit Dermatology Lacy Dykes M.D. [address] [place], [place] [phone] (Wo rk) 02/22/2022 Office Visit Orthopedic Surgery Kimberlyn Alvarez APRN, C.N.P., D.N.P. [address] [place], [place] [phone] (Wo rk) 03/12/2022 Diagnostic Otorhinolaryngology Blanka Carranza, C.N.P. [address] [place] [address] Aleena Hassan Au.D. [address] [place] [phone] documented as of this encounter Procedures Procedure Name Priority Date/Time Associated Diagnosis Comme nts IN ARTHCS ASP/INJ Routine 11/09/2019 8:00 AM Primary Osteoarth ritis Results for this MJR JT WO US CDT Knee Bilateral procedure are in the results section. IN ARTHCS ASP/INJ Routine 11/09/2019 8:00 AM Primary Osteoarth ritis Results for this MJR JT WO US CDT Knee Bilateral procedure are in the results section. documented in this encounter Results IN ARTHCS ASP/INJ MJR JT WO US (11/09/2019 8:00 AM CDT) Narrative MMODAL - 11/09/2019 8:00 AM CDT Trish Bhatti R.N. ? 11/10/2019 ??6:11 PM Knee site- L knee joint : injection only Date/Time: 11/09/2019 8:07 AM Performed by: Kimberlyn Alvarez APRN, C.N. P., D.N.P. Authorized by: Kimberlyn Alvarez APRN, C.N .P., D.N.P. PROCEDURE DETAILS Procedure Location knee Knee site: L knee joint Site prep: patient was prepped and drape d in usual sterile fashion ?? Patient position: seated Procedural approach: anterolateral Procedure performed: injection only Needle gauge: 22 G, length: 1 1/2 in Procedural Medication The following medications were administe red at the target site(s) Local anesthetic: 3 mL lidocaine 10 mg/m L (1 %) Viscosupplement: 20 mg sodium hyaluronat e (viscosup) 10 mg/mL(mw 2.4 -3.6 million) CONSENT Consent obtained: written PRE-PROCEDURE DETAILS Procedure purpose: therapeutic Skin preparation: povidone-iodine SEDATION / ANESTHESIA Anesthesia method: none POST-PROCEDURE DETAILS Procedure completed successfully: yes Complications: no apparent complications ?? Post-procedure instructions: avoid stren uous activity for 5 days Discharge instructions: dressing care an d follow-up with ordering provider Kimberlyn Alvaerz APRN, C.N.PPhil, D.N.P. PROCEDURE/MINOR CONNOR GICAL ORDERABLES Performing Organization Address City/State/ZIP Code Phon e Number MMODAL MMODAL NA IN ARTHCS ASP/INJ M[facility] JT WO US (11/09/2019 8:00 AM CDT) Narrative MMODAL - 11/09/2019 8:00 AM CDT Trish Bhatti RMarian ? 11/10/2019 ??6:11 PM Knee site- R knee joint : injection only Date/Time: 11/09/2019 8:06 AM Performed by: Kimberlyn Alvarez APRN, C.N. PPhil, Sharon.N.P. Authorized by: Kimberlyn Alvarez APRN, C.N .Stacie, Sharon.N.P. PROCEDURE DETAILS Procedure Location knee Knee site: R knee joint Site prep: patient was prepped and drape d in usual sterile fashion ?? Patient position: seated Procedural approach: anterolateral Procedure performed: injection only Needle gauge: 22 G Procedural Medication The following medications were administe red at the target site(s) Local anesthetic: 3 mL lidocaine 10 mg/m L (1 %) Viscosupplement: 20 mg sodium hyaluronat e (viscosup) 10 mg/mL(mw 2.4 -3.6 million) CONSENT Consent obtained: written PRE-PROCEDURE DETAILS Procedure purpose: therapeutic Skin preparation: povidone-iodine SEDATION / ANESTHESIA Anesthesia method: none POST-PROCEDURE DETAILS Procedure completed successfully: yes Complications: no apparent complications ?? Post-procedure instructions: avoid stren uous activity for 5 days Discharge instructions: dressing care an d follow-up with ordering provider Kimberlyn Alvarez APRN, Kp.N.PPhil, Sharon.N.P. PROCEDURE/MINOR CONNOR GICAL ORDERABLES Performing Organization Address City/State/ZIP Code Phon e Number MMODAL MMODAL NA documented in this encounter Visit Diagnoses Diagnosis Primary Osteoarthritis Knee Bilateral - Primary documented in this encounter Administered Medications Inactive Administered Medications - up to 3 most recent administrations Medication Order MAR Action Action Date Dose Rate Site lidocaine 10 mg/mL (1 %) injection 3 Given 11/09/2019 8:06 AM CD T 3 mL mL (XYLOCAINE) 3 mL, infiltration, One-Time Injection, Starting on Fri11/09/19 at 0806, For 1 dose lidocaine 10 mg/mL (1 %) injection 3 mL Given 11/09/2019 8:07 AM CDT 3 mL (XYLOCAINE) 3 mL, infiltration, One-Time Injection, Starting on Fri11/09/19 at 0807, For 1 dose sodium hyaluronate (viscosup) injection 20 mg Given 8:06 AM CDT 20 mg (EUFLEXXA) 20 mg, intra-articular, One-Time Injection, Starting on Fri11/09/19 at 0806, For 1 dose sodium hyaluronate (viscosup) injection 20 mg Given 8:07 AM CDT 20 mg (EUFLEXXA) 20 mg, intra-articular, One-Time Injection, Starting on Fri11/09/19 at 0807, For 1 dose documented in this encounter Additional Health Concerns Assessment Noted Time PHQ-9 Depression Total Score: 2 04/22/2015 11:24 AM CS T documented as of this encounter
--- OUTSIDE RECORDS SUMMARY | 2022-01-31 09:36 | XMS_ITS | Encounter Summary ---
:1955 Author Organization [facility] Address [address] [place] [address] Care Team Providers Name Role Phone Elsewhere, Pcp Primary Care Provider Unavailable Encounter Details Date Type Department Care Team Description 03/06/2021 Hospital Encounter Department of Jennifer Carranza Disease; Laboratory Medicine M, C.N.P. Iron Deficiency Anemia Screening Exam; in [facility] [address] Hyperlipidemia; [place], [place] Incontinence Urinary [address] [place] [phone] [facility] [phone] [place], [place] (Work) [phone] Social History Tobacco Use Types Packs/Day Years Used Date Smoking Tobacco: Former Cigarettes Quit : 04/07/1987 Smokeless Tobacco: Never Alcohol Habits Answer Date Recorded How often do you have a drink containing 4 or more times a w [place] 07/30/2021 alcohol? How many drinks containing alcohol [...] or relatives? How often do you attend zoroastrian or Patient refused 2021 protestant services? Do you belong to any clubs or Yes 07/30/2021 organizations such as zoroastrian groups, unions, fraternal or athletic groups, or [...] place to sleep or slept in a custodial (including now)? Education Answer Date Recorded What is the highest level of school Bachelor's degree (e.g., BA, AB, 03/10/2019 you have completed or the highest BS) degree you have received? 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 [address] [place], [place] [phone] (Wo rk) 02/22/2022 Office Visit Orthopedic Surgery Kimberlyn Alvarez APRN, C.N.P., D.N.P. [address] [place], [place] [phone] (Wo rk) 03/12/2022 Diagnostic Otorhinolaryngology Blanka Carranza, C.N.P. [address] [place] [address] Aleena Hassan Au.D. [address] [place] [phone] documented as of this encounter Procedures Procedure Name Priority Date/Time Associated Comments Diagnosis LIPID PANEL, S Routine 03/06/2021 7:19 AM Graves' Disea se Results for this BRIDGE GANG WORKER Iron Deficiency procedure ar e in Anemia Screening the results Exam section. Hyperlipidemia Incontinence Urinary THYROID FUNCTION Routine 03/06/2021 7:19 AM Graves' Dise ase Results for this CASCADE, S BRIDGE GANG WORKER Iron Deficiency procedure ar e in Anemia Screening the results Exam section. Hyperlipidemia Incontinence Urinary CBC WITH DIFFERENTIAL, Routine 03/06/2021 7:19 AM Graves ' Disease Results for this B BRIDGE GANG WORKER Iron Deficiency procedure ar e in Anemia Screening the results Exam section. Hyperlipidemia Incontinence Urinary COMPREHENSIVE Routine 03/06/2021 7:19 AM Graves' Disea se Results for this METABOLIC PANEL, S/P BRIDGE GANG WORKER Iron Deficiency proc edure are in Anemia Screening the results Exam section. Hyperlipidemia Incontinence Urinary documented in this encounter Results CBC with Differential, Blood (03/06/2021 7:19 AM BRIDGE GANG WORKER) P athologist Signature Hemoglobin 13.0 11.6 - 03/06/2021 CNFL 15.0 g/dL 7:34 AM BRIDGE GANG WORKER Hematocrit 39.3 35.5 - 03/06/2021 CNFL 44.9 % 7:34 AM BRIDGE GANG WORKER Erythrocytes 4.03 3.92 - 03/06/2021 CNFL 5.13 7:34 AM BRIDGE GANG WORKER x10(12)/L MCV 97.5 78.2 - 03/06/2021 CNFL 97.9 fL 7:34 AM BRIDGE GANG WORKER RBC Distrib Width 13.4 12.2 - 03/06/2021 CNFL 16.1 % 7:34 AM BRIDGE GANG WORKER Platelet Count 241 157 - 371 03/06/2021 CNFL x10(9)/L 7:34 AM BRIDGE GANG WORKER Leukocytes 7.8 3.4 - 9.6 03/06/2021 CNFL x10(9)/L 7:34 AM BRIDGE GANG WORKER Neutrophils 5.79 1.56 - 03/06/2021 CNFL 6.45 7:34 AM BRIDGE GANG WORKER x10(9)/L Lymphocytes 1.29 0.95 - 03/06/2021 CNFL 3.07 7:34 AM BRIDGE GANG WORKER x10(9)/L Monocytes 0.48 0.26 - 03/06/2021 CNFL 0.81 7:34 AM BRIDGE GANG WORKER x10(9)/L Eosinophils 0.17 0.03 - 03/06/2021 CNFL 0.48 7:34 AM BRIDGE GANG WORKER x10(9)/L Basophils 0.03 0.01 - 03/06/2021 CNFL 0.08 7:34 AM BRIDGE GANG WORKER x10(9)/L Specimen Anatomical Collection Method Collection Time Receive d Time (Source) Location / / Volume Laterality Blood (Blood, 03/06/2021 7:19 AM 03/06/20 7:21 Venous) BRIDGE GANG WORKER AM BRIDGE GANG WORKER Jennifer Carranza C.N.P. LAB BLOOD ADD-ON Performing Organization Address City/State/ZIP Code Phon e Number [facility]- [address] [place] [address] [place] [address] [place] [address] System [address] Thyroid Function [place]ahan (03/06/2021 7:19 AM BRIDGE GANG WORKER) athologist Signature TSH, Sensitive 3.0 0.3 - 4.2 03/06/2021 CNFL mIU/L 8:31 AM BRIDGE GANG WORKER Specimen Anatomical Collection Method Collection Time Receive d Time (Source) Location / / Volume Laterality Blood (Blood, 03/06/2021 7:19 AM 03/06/20 7:21 Venous) BRIDGE GANG WORKER AM BRIDGE GANG WORKER Jennifer Carranza C.N.P. LAB BLOOD ADD-ON Performing Organization Address City/State/ZIP Code Phon e Number [address] [address] [place] [address] System [address] Comprehensive Metabolic Panel (03/06/2021 7:19 AM BRIDGE GANG WORKER) athologist Signature Potassium, P 4.3 3.6 - 5.2 03/06/2021 CNFL mmol/L 7:41 AM BRIDGE GANG WORKER Sodium, P 135 135 - 145 03/06/2021 CNFL mmol/L 7:41 AM BRIDGE GANG WORKER Chloride, P 101 98 - 107 03/06/2021 CNFL mmol/L 7:41 AM BRIDGE GANG WORKER Bicarbonate, P 24 22 - 29 03/06/2021 CNFL mmol/L 7:41 AM BRIDGE GANG WORKER Anion Gap, P 10 7 - 15 03/06/2021 CNFL 7:41 AM BRIDGE GANG WORKER BUN (Blood Urea 12 6 - 21 03/06/2021 CNFL Nitrogen), P mg/dL 7:41 AM BRIDGE GANG WORKER Creatinine 0.74 0.59 - 03/06/2021 CNFL 1.04 mg/dL 7:41 AM BRIDGE GANG WORKER eGFR-Black/Afric >90 >=60 03/06/2021 CNFL an Ivorian mL/min/BSA 7:41 AM BRIDGE GANG WORKER Comment: ----ADDITIONAL INFORMATION---- Estimated GFR calculated using the 2009 CKD_EPI creatinine equation. eGFR Non-Black/ 85 >=60 mL/min/BSA 7:41 AM BRIDGE GANG WORKER CNFL Comment: ----ADDITIONAL INFORMATION---- Estimated GFR calculated using the 2009 CKD_EPI creatinine equation. Calcium, Total, P 9.2 8.8 - 10.2 mg/dL 03/06/2021 7:41 AM BRIDGE GANG WORKER CNFL Glucose, P 100 70 - 140 mg/dL 03/06/2021 7:41 AM BRIDGE GANG WORKER C NFL Protein, Total, P 7.0 6.3 - 7.9 g/dL 03/06/2021 7:41 A M BRIDGE GANG WORKER CNFL Albumin, P 4.2 3.5 - 5.0 g/dL 03/06/2021 7:41 AM BRIDGE GANG WORKER C NFL Aspartate Aminotransferase 27 8 - 43 U/L 03/06/2021 7 :41 AM BRIDGE GANG WORKER CNFL (AST), P Alkaline Phosphatase, P 60 35 - 104 U/L 03/06/2021 7: 41 AM BRIDGE GANG WORKER CNFL Alanine Aminotransferase (ALT), 24 7 - 45 U/L 021 7:41 AM BRIDGE GANG WORKER CNFL P Bilirubin, Total, P 0.6 <=1.2 mg/dL 03/06/2021 7:41 AM BRIDGE GANG WORKER CNFL Specimen Anatomical Collection Method Collection Time Receive d Time (Source) Location / / Volume Laterality Blood (Blood, 03/06/2021 7:19 AM 03/06/20 7:21 Venous) BRIDGE GANG WORKER AM BRIDGE GANG WORKER Jennifer Carranza C.N.P. LAB BLOOD ADD-ON Performing Organization Address City/State/ZIP Code Phon e Number [id number] [place] [address] [place] [address] System [address] Lipid Panel (03/06/2021 7:19 AM BRIDGE GANG WORKER) athologist Signature Cholesterol, 197 mg/dL 03/06/2021 CNFL Total 7:41 AM BRIDGE GANG WORKER Comment: ----REFERENCE VALUE---- Desirable: < 200 Borderline high: 200 - 239 High: > or = 240 Triglycerides 77 mg/dL 03/06/2021 7:41 AM BRIDGE GANG WORKER CNF L Comment: ----REFERENCE VALUE---- Normal: <150 Borderline high: 150-199 High: 200-499 Very high: > or =500 Cholesterol, HDL 82 >=50 mg/dL 03/06/2021 7:41 AM BRIDGE GANG WORKER CNFL Calculated LDL 100 mg/dL 03/06/2021 7:41 AM BRIDGE GANG WORKER CN FL Comment: ----REFERENCE VALUE---- Desirable: <100 mg/dL Above Desirable: 100-129 mg/dL Borderline High: 130-159 mg/dL High: 160-189 mg/dL Very High: >=190 mg/dL Cholesterol, Non-HDL, Calculated 115 mg/dL 021 7:41 AM BRIDGE GANG WORKER CNFL Comment: ----REFERENCE VALUE---- Desirable: <130 Above Desirable: 130-159 Borderline high: 160-189 High: 190-219 Very high: > or =220 Specimen Anatomical Collection Method Collection Time Receive d Time (Source) Location / / Volume Laterality Blood (Blood, 03/06/2021 7:19 AM 03/06/20 7:21 Venous) BRIDGE GANG WORKER AM BRIDGE GANG WORKER Jennifer Carranza C.N.P. LAB BLOOD ADD-ON Performing Organization Address City/State/ZIP Code Phon e Number [facility]- [address] [place] [address] [place] [address] System [address] documented in this encounter Visit Diagnoses Diagnosis Graves' Disease Iron Deficiency Anemia Screening Exam Hyperlipidemia Incontinence Urinary documented in this encounter Additional Health Concerns Assessment Noted Time PHQ-9 Depression Total Score: 2 04/22/2015 11:24 AM CS T documented as of this encounter Care Teams Song Writer Relationship Specialty Start Date End Date Elsewhere, Pcp PCP - General Family Medicine 06/16/20 documented as of this encounter
--- OUTSIDE RECORDS SUMMARY | 2022-01-31 09:36 | XMS_ITS | Encounter Summary ---
:1955 Author Organization [facility] Address [address] [place] [address] Care Team Providers Name Role Phone Elsewhere, Pcp Primary Care Provider Unavailable Reason for Referral Outpatient (Routine) - Closed Specialty Diagnoses / Procedures Referred By Contact Refer red To Contact Diagnoses Screening Mammogram Breast Cancer Iona Cui P.A.-C., [facility] Region Procedures BI Breast Screening Bilateral with Tomosynthesis P.A. [address] [place] [address] Referral ID Status Reason Start Date Expiration Date Visits Requ ested Visits Authorized [id number] Closed 02/01/2021 02/01/2022 1 1 Reason for Visit Outpatient (Routine) - Closed Specialty Diagnoses / Procedures Referred By Contact Refer red To Contact Diagnoses Screening Mammogram Breast Cancer Iona Cui P.A.-C., [facility] Region Procedures BI Breast Screening Bilateral with Tomosynthesis P.A. [address] [place] [address] Referral ID Status Reason Start Date Expiration Date Visits Requ ested Visits Authorized [id number] Closed 02/01/2021 02/01/2022 1 1 Encounter Details Date Type Department Care Team Description 02/06/2021 Hospital Encounter Department of Iona Cui Mammogram Radiology in [place], [place], [place] P.A. [address] [phone] Social History Tobacco Use Types Packs/Day Years Used Date Smoking Tobacco: Former Cigarettes Quit : 04/07/1987 Smokeless Tobacco: Never Alcohol Habits Answer Date Recorded How often do you have a drink containing 4 or more times a w [place] 07/30/2021 alcohol? How many drinks containing alcohol [...] or relatives? How often do you attend jew or Patient refused 2021 hinduism services? 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 B.ANI/L.ACI/L.BERNICE/L.PLAN Take 1 capsule by 0 06/2012 /L.TASH (PROBIOTIC mouth daily. FORMULA ORAL) calcium carbonate Take 500 mg by mouth. 0 (CALCIUM 500 ORAL) cholecalciferol, vitamin Take 1,000 Units by 0 D3, 1,000 Unit tablet mouth. EPINEPHrine 0.3 mg/0.3 See instructions 0 016 mL injection syringe liothyronine Take 1 tablet [...] tablets by 0 tablet mouth at bedtime. CINNAMON BARK (CINNAMON Take 1,000 mg by 0 201503/06/2021 ORAL) mouth daily. citalopram (CeleXA) 20 Take 0.5 tablets by 0 04/0703/06/2021 mg tablet mouth daily. UNABLE TO FIND Tumeric raw herb 0 08/18/201502/07 daily documented as of this encounter Plan of Treatment Upcoming Encounters Date Type Specialty Care Team Description 02/02/2022 Immunization Family Medicine 02/12/2022 Office Visit Dermatology Lacy Dykes M.D. [address] [place], [place] [phone] (Wo rk) 02/22/2022 Office Visit Orthopedic Surgery Kimberlyn Alvarez, JOSE DANIEL, C.N.P., D.N.P. [address] [place] [phone] (Wo rk) 03/12/2022 Diagnostic Otorhinolaryngology Blanka Carranza C.NPhilPPhil [address] [place] [phone] Aleena Hassan Au.D. [address] [place] [phone] documented as of this encounter Procedures Procedure Name Priority Date/Time Associated Comments Diagnosis BI BREAST SCREENING RAD - Routine 02/06/2021 2:46 Screening Resu lts for BILATERAL WITH (most inpatients PM CDT Mammogram Breast this procedure TOMOSYNTHESIS and all Cancer are in the outpatients) results section. documented in this encounter Results BI Breast Screening Bilateral with Tomosynthesis (02/06/2021 2:46 PM CDT) Anatomical Region Laterality Modality Breast, Breast Imaging RST LOS, Breast Imaging ARZ LOS, [place] st Bilateral Mammography Imaging FLA LOS Specimen (Source) Anatomical Collection Method Collection Time Re ceived Time Location / / Volume Laterality 02/07/2021 12:35 PM CDT Impressions 02/07/2021 12:38 PM CDT Negative. RECOMMENDATION: ??Annual Screening Mammo gram ASSESSMENT: ??BI-RADS: 1: Negative. Narrative 02/07/2021 12:38 PM CDT EXAM: ??BI BREAST SCREENING BILATERAL WITH TOMOSYNTHESIS Current study was evaluated with a Compu ter Aided Detection (CAD) system. INDICATION: ??Screening mammogram. COMPARISON: ??Prior exam(s) were availab le and reviewed for comparison. DENSITY: ??d. The breast(s) are extremel y dense, which lowers the sensitivity of mammography. FINDINGS: ??No mammographic findings of malignancy. Procedure Note Joshua Hernandez M.D. - 02/07/2021Formatt ing of this note might be different from the original. EXAM: BI BREAST SCREENING BILATERAL WITH TOMOSYNTHESIS Current study was evaluated with a Compu ter Aided Detection (CAD) system. INDICATION: Screening mammogram. COMPARISON: Prior exam(s) were available and reviewed for comparison. DENSITY: d. The breast(s) are extremely dense, which lowers the sensitivity of mammography. FINDINGS: No mammographic findings of ma lignancy. IMPRESSION: Negative. RECOMMENDATION: Annual Screening Mammogr am ASSESSMENT: BI-RADS: 1: Negative. Zehra Galan P.A.-C. IMHomer BI PROCEDURES documented in this encounter Visit Diagnoses Diagnosis Screening Mammogram Breast Cancer documented in this encounter Additional Health Concerns Assessment Noted Time PHQ-9 Depression Total Score: 2 04/22/2015 11:24 AM CS T documented as of this encounter Care Teams Bow Machine Operator Relationship Specialty Start Date End Date Elsewhere, Pcp PCP - General Family Medicine 06/16/20 documented as of this encounter
--- OUTSIDE RECORDS SUMMARY | 2022-01-31 09:36 | XMS_ITS | Encounter Summary ---
:1955 Author Organization [facility] Address [address] [place] [address] Care Team Providers Name Role Phone Elsewhere, Pcp Primary Care Provider Unavailable Reason for Referral Specialty Diagnoses / Procedures Referred By Contact Refer red To Contact [facility] [place] Professional [address] [phone] Referral ID Status Reason Start Date Expiration Date Visits Requ ested Visits Authorized Encounter Details Date Type Department Care Team Description 06/21/2020 Immunization Department of Azam Bowers For COVID-19 Medicine, Glosterradha Augustine M.D. Vaccine Immunization Professional Building, [address] [facility] (Primary Dx) in [address] [address] [place] [phone] Social History Tobacco Use Types Packs/Day Years Used Date Smoking Tobacco: Former Cigarettes Quit : 04/07/1987 Smokeless Tobacco: Never Alcohol Habits Answer Date Recorded How often do you have a drink containing 4 or more times a w [place] 07/30/2021 alcohol? How many drinks containing alcohol [...] or relatives? How often do you attend amish or Patient refused 2021 religion services? Do you belong to any clubs or Yes 07/30/2021 organizations such as amish groups, unions, fraIntelen or athletic groups, or school groups? 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 [address] [place], [place] [phone] (Wo rk) 02/22/2022 Office Visit Orthopedic Surgery Kimberlyn Alvarez APRN, C.N.P., D.N.P. [address] [place], [place] [phone] (Wo rk) 03/12/2022 Diagnostic Otorhinolaryngology Blanka Carranza, C.N.P. [address] [place] [address] Aleena Hassan Au.D. [address] [place] [phone] Scheduled Referrals Name Type Priority Associated Diagnoses Order S chedule Covid immunization Outpatient Referral Routine Encounter For E xpected: office visit Covid-19 Vaccine 07/12/2020, Subsequent; 21 days Immunization Expires: 06/22/2023 documented as of this encounter Visit Diagnoses Diagnosis Encounter For COVID-19 Vaccine Immunizat ion - Primary documented in this encounter Additional Health Concerns Assessment Noted Time PHQ-9 Depression Total Score: 2 04/22/2015 11:24 AM CS T documented as of this encounter Care Teams Associate Editor Relationship Specialty Start Date End Date Elsewhere, Pcp PCP - General Family Medicine 06/16/20 documented as of this encounter
--- OUTSIDE RECORDS SUMMARY | 2022-01-31 09:36 | XMS_ITS | Encounter Summary ---
:1955 Author Organization [facility] Address [address] [place] [address] Care Team Providers Name Role Phone Elsewhere, Pcp Primary Care Provider Unavailable Reason for Visit Reason Comments Skin Check Appointment Request (Routine) - Incomplete Specialty Diagnoses / Procedures Referred By Contact Refer red To Contact Referral ID Status Reason Start Date Expiration Date Visits V isits Requested Authorized [id number] Incomplete 12/15/2020 12/15/2021 1 1 Encounter Details Date Type Department Care Team Description 03/06/2021 Office Visit Department of Lacy Dykes Nevi Multi ple (Primary Dx); Dermatology in [place] Keratosis Seborrheic [place], [place] [address] [phone] Social History Tobacco Use Types Packs/Day Years Used Date Smoking Tobacco: Former Cigarettes Quit : 04/07/1987 Smokeless Tobacco: Never Alcohol Habits Answer Date Recorded How often do you have a drink containing 4 or more times a w [place] 07/30/2021 alcohol? How many drinks containing alcohol [...] or relatives? How often do you attend zoroastrianism or Patient refused 2021 mormonism services? 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 - 03/06/2021 1:45 PM CST SUBJECTIVE CHIEF COMPLAINT / REASON FOR VISIT Full skin cancer screening HISTORY OF PRESENT ILLNESS Priscilla Fitzpatrick is a pleasant 65 y.o. female who presents for a full skin cancer screening. The patient was last seen by me in Dermatology clinic on 08/08/20. She denies a personal history of skin cancer or family history for melanoma. She has a history of a nevus with severe atypia involving the right distal medial thigh, status post excision on 07/29/[address] Olivarez at [facility]. She uses sunscreen. She denies any new or changing lesions today. MEDICAL HISTORY 1. 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 Olivarez at [facility] 2. Negative for skin cancer FAMILY HISTORY 1. Non-melanoma skin cancer in [...] extremities. My scribe (Hilary) served as a production specialist for the entirety of the exam. Examination of the face, trunk and extremities reveals multiple benign-appearing nevi, lentigines and seborrheic keratoses. Examination of the left third webspace reveals a 3.5 x 2.5 mm benign appearing nevus. Examination of the right distal medial thigh reveals no evidence for recurrence of the nevus with severe atypia. ASSESSMENT / PLAN #1 Face, trunk and [...] recommend an immediate return visit for reassessment. Follow up in 6months for a full skin check. #2 Face, trunk and extremities: Seborrheic keratosis The benign nature of the skin lesion(s) was discussed with the patient. No treatment is required. I recommend continued observation. Should this lesion change in size, color, texture, or shape or develop symptoms such as itching or bleeding, I recommend an immediate return visit for reassessment. #3 Right distal medial thigh: Junctional nevus with severe atypia, status post re-excision on 07/29/[address] Olivarez at [facility], no recurrence No clinical evidence of local recurrence today. [...] the direction and in the presence of Lacy Dykes M.D. Electronically Signed: tiana Humphrey. 03/05/2021. 3:32 PM SHUCKER. I, Lacy Dykes M.D., personally performed the services described in this documentation. All medical record entries made by the scribe were at my direction and in my presence. I have reviewed the chart and discharge instructions (if applicable) and agree that the record reflects my personal performance and is accurate and complete. Lacy Dykes M.D. KER documented in this encounter Plan of Treatment Upcoming Encounters Date Type Specialty Care Team Description 02/02/2022 [facility] [place] Family Medicine 02/12/2022 Office Visit Dermatology Lacy Dykes M.D. [address] [place], [place] [phone] (Wo rk) 02/22/2022 Office Visit Orthopedic Surgery Kimberlyn Alvarez, JOSE DANIEL, C.N.P., D.N.P. [address] [place], [place] [phone] (Wo rk) 03/12/2022 Diagnostic Otorhinolaryngology Blanka Carranza, C.N.P. [address] [place] [address] Aleena Hassan Au.D. [address] [place] [phone] documented as of this encounter Visit Diagnoses Diagnosis Nevi Multiple - Primary Keratosis Seborrheic documented in this encounter Additional Health Concerns Assessment Noted Time PHQ-9 Depression Total Score: 2 04/22/2015 11:24 AM CS T documented as of this encounter Care Teams Steel Sampler Relationship Specialty Start Date End Date Elsewhere, Pcp PCP - General Family Medicine 06/16/20 documented as of this encounter
--- OUTSIDE RECORDS SUMMARY | 2022-01-31 09:36 | XMS_ITS | Encounter Summary ---
:1955 Author Organization [facility] Address [address] [place] [address] Care Team Providers Name Role Phone Elsewhere, Pcp Primary Care Provider Unavailable Reason for Referral Outpatient (Routine) - Closed Specialty Diagnoses / Procedures Referred By Contact Refer red To Contact Diagnoses Screening Mammogram Breast Cancer Iona Cui P.A.-C., [facility] Region Procedures BI Breast Screening Bilateral P.A. [address] [place] [address] Referral ID Status Reason Start Date Expiration Date Visits Requ ested Visits Authorized [id number] Closed 01/05/2020 01/04/2021 1 1 Reason for Visit Outpatient (Routine) - Closed Specialty Diagnoses / Procedures Referred By Contact Refer red To Contact Diagnoses Screening Mammogram Breast Cancer Iona Cui P.A.-C., [facility] Region Procedures BI Breast Screening Bilateral P.A. [address] [place] [address] Referral ID Status Reason Start Date Expiration Date Visits Requ ested Visits Authorized [id number] Closed 01/05/2020 01/04/2021 1 1 Encounter Details Date Type Department Care Team Description 01/20/2020 Hospital Encounter Department of Iona Cui ng Mammogram Radiology in [place] Pantera Faulkner, Breast C [place], [place] P.A. [address] [address] Social History Tobacco Use Types Packs/Day Years Used Date Smoking Tobacco: Former Cigarettes Quit : 04/07/1987 Smokeless Tobacco: Never Alcohol Habits Answer Date Recorded How often do you have a drink containing 4 or more times a w nondalton 07/30/2021 alcohol? How many drinks containing alcohol [...] or relatives? How often do you attend sabianism or Patient refused 2021 jehovah's witness services? Do you belong to any clubs or Yes 07/30/2021 organizations such as sabianism groups, unions, fraternal or athletic groups, or [...] place to sleep or slept in a nursing home (including now)? Education Answer Date Recorded What is the highest level of school Bachelor's degree (e.g., BA, AB, 03/10/2019 you have completed or the highest BS) degree you have received? 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 B.ANI/L.ACI/L.BERNICE/L.PLAN Take 1 capsule by 0 06/2012 /.TASH (PROBIOTIC mouth daily. FORMULA ORAL) [...] Visit Dermatology Lacy Dykes M.D. [address] [place], [place] [phone] (Lisha mccann) 02/22/2022 Office Visit Orthopedic Surgery Kimberyln Alvarez, JOSE DANIEL, C.N.P., D.N.P. [address] [place] [phone] (Wo rk) 03/12/2022 Diagnostic Otorhinolaryngology Blanka Carranza C.NPhilPPhil [address] [place], [place] [phone] Aleena Hassan Au.D. [address] [place] [address] documented as of this encounter Procedures Procedure Name Priority Date/Time Associated Comments Diagnosis BI BREAST RAD - Routine 01/20/2020 11:25 Screening Results fo r this SCREENING (most inpatients AM CDT Mammogram Breast procedu re are in BILATERAL and all Cancer the results outpatients) section. documented in this encounter Results BI Breast Screening Bilateral (01/20/2020 11:25 AM CDT) Anatomical Region Laterality Modality Breast, Breast Imaging RST LOS, Breast Imaging ARZ LOS, Monitor st Bilateral Mammography Imaging FLA LOS Specimen (Source) Anatomical Collection Method Collection Time Re ceived Time Location / / Volume Laterality 01/20/2020 12:11 PM CDT Impressions 01/20/2020 12:14 PM CDT Negative. RECOMMENDATION: ??Annual Screening Mammo gram ASSESSMENT: ??BI-RADS: 1: Negative. Narrative 01/20/2020 12:14 PM CDT EXAM: ??BI BREAST SCREENING BILATERAL Current study was evaluated with a Compu ter Aided Detection (CAD) system. INDICATION: ??Screening mammogram. COMPARISON: ??Prior exam(s) were availab le and reviewed for comparison. DENSITY: ??d. The breast(s) are extremel y dense, which lowers the sensitivity of mammography. FINDINGS: ??No mammographic findings of malignancy. Procedure Note Tim Burns M.D. - 01/20/2020Format ting of this note might be different from the original. EXAM: BI BREAST SCREENING BILATERAL Current study was evaluated with a Compu [...] documented as of this encounter Care Teams Salvage Winder And Inspector Relationship Specialty Start Date End Date Elsewhere, Pcp PCP - General Family Medicine 01/05/20 06/13/20 documented as of this encounter
--- OUTSIDE RECORDS SUMMARY | 2022-01-31 09:36 | XMS_ITS | Encounter Summary ---
:1955 Author Organization [facility] Address [address] [place] [address] Care Team Providers Name Role Phone Elsewhere, Pcp Primary Care Provider Unavailable Reason for Visit Physical Therapy (Routine) - Canceled Specialty Diagnoses / Procedures Referred By Contact Refer red To Contact Diagnoses Vertigo Benign Paroxysmal Positional Bilateral Iona Cui P.A.-C., [facility] Procedures PT Ongoing treatment P.A. [address] [place] [address] Referral ID Status Reason Start Date Expiration Date Visits V isits Requested Authorized [id number] Canceled 01/05/2020 04/06/2020 99 40 Encounter Details Date Type Department Care Team Description 01/06/2020 Clinical Support Department of Iona Cui P.A.-C ., P.A. Vertigo Benign Rehabilitation Services Laura Solorzano, P.T. [address] [facility] [address] [place] [address] Paroxysmal in [facility] Bilateral [address] [phone] Social History Tobacco Use Types Packs/Day Years [...] or relatives? How often do you attend temple or Patient refused 2021 orthodoxy services? Do you belong to any clubs or Yes 07/30/2021 organizations such as temple groups, unions, fraternal or athletic groups, or [...] place to sleep or slept in a fpc (including now)? Education Answer Date Recorded What is the highest level of school Bachelor's degree (e.g., BA, AB, 03/10/2019 you have completed or the highest BS) degree you have received? 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 - 01/06/2020 9:00 AM CDT Physical Therapy Outpatient Treatment Note SUBJECTIVE Patient's Name: Priscilla Alanisfield Referring Provider: Iona Cui P.A.-C.* Visit Diagnosis: 1. Vertigo Benign Paroxysmal Positional Bilateral Reason for Referral: BPPV Onset Date: 01/01/20 Payor: [employer] / Plan: [employer] / Product Type: PPO / No data recorded Patient comments: *Patient came in this morning reporting her symptoms are much better. Reports somedifficulty with tracking this morning but overall has sofía ble to move through postitions without vertigo symptoms OBJECTIVE TREATMENT Treatment today consisted of: Patient not seen for visit today Contact monitoring: PPE used during therapy: Therapist was wearing the following PPE throughout entire session: surgicalmask and eye protection Patient was wearing a mask during therapy session: yes Assessment Clinical Impression: Priscilla was seen for BPPV yesterday. She reported to session today that she is feelings much better. Patient to continue to monitor improvement of symptoms. If they persist she cancontact therapist. Anticipate symptoms will continue to resolve and patient will be d/c from skilledPT services. Functional Goals and Timeframes: PT Goal #1: Patient will have complete resolution of her vertigo symptoms in 2 weeks PT Goal #1 Date: 01/19/20 PT Goal #2: Patient will return to her regular exercise routine without symptoms PT Goal #2 Date: 01/19/20 Plan Discharge from PT Laura Solorzano P.T. Department of Rehabilitation Services in [address] [address] Dept: [phone] documented in this encounter Plan of Treatment Upcoming Encounters Date Type Specialty Care Team Description 02/02/2022 Immunization Family Medicine 02/12/2022 Office Visit Dermatology Lacy Dykes M.D. [address] [place], [place] [phone] (Lisha rk) 02/22/2022 Office Visit Orthopedic Surgery Kimberlyn Alvarez APRN, C.N.P., D.N.P. [address] [place], [place] [phone] (Wo rk) 03/12/2022 Diagnostic Otorhinolaryngology Blanka Carranza, C.N.P. [address] [place] [address] Aleena Hassan Au.D. [address] [place] [address] documented as of this encounter Visit Diagnoses Diagnosis Vertigo Benign Paroxysmal Positional Ladarius ateral documented in this encounter Additional Health Concerns Assessment Noted Time PHQ-9 Depression Total Score: 2 04/22/2015 11:24 AM CS T documented as of this encounter Care Teams Engineering Systems Analyst Relationship Specialty Start Date End Date Elsewhere, Pcp PCP - General Family Medicine 01/05/20 06/13/20 documented as of this encounter
--- OUTSIDE RECORDS SUMMARY | 2022-01-31 09:36 | XMS_ITS | Encounter Summary ---
:1955 Author Organization [facility] Address [address] [place] [address] Care Team Providers Name Role Phone Unavailable Primary Care Provider Unavailable Reason for Referral Outpatient (Routine) - Closed Specialty Diagnoses / Procedures Referred By Contact Refer red To Contact Diagnoses Pain Knee Bilateral Kimberlyn Alvarez APRN, [facility] [place] [facility] Procedures dgq-vswb-tjrhlovi-elbow arthrocentesis: L knee joint C.N.P., D.N.P. [address] [place] [phone] Referral ID Status Reason Start Date Expiration Date Visits Requ ested Visits Authorized [id number] Closed 11/16/2019 11/15/2020 1 1 utpatient (Routine) - Closed Specialty Diagnoses / Procedures Referred By Contact Refer red To Contact Diagnoses Pain Knee Bilateral Kimberlyn Alvarez APRN, [facility] Procedures koy-kmvq-tvlvmktb-elbow arthrocentesis: R knee joint C.N.P., D.N.P. [address] [place] [address] Referral ID Status Reason Start Date Expiration Date Visits Requ ested Visits Authorized [id number] Closed 11/16/2019 11/15/2020 1 1 Reason for Visit Reason Comments Pain 3rd Euflexxa injection Pain Outpatient (Routine) - Closed Specialty Diagnoses / Procedures Referred By Contact Refer red To Contact Orthopedic Surgery Kimberlyn Alvarez, JOSE DANIEL, [facility] [place], [place] [address] [place] [phone] Referral ID Status Reason Start Date Expiration Date Visits Requ ested Visits Authorized [id number] Closed 11/02/2019 11/01/2020 1 1 Encounter Details Date Type Department Care Team Description 11/16/2019 Office Visit Department of Kimberlyn Alvarez, Pain Knee B ilateral Orthopedic Surgery in [place], (Prim radha Dx) Virginia Wagoner D.N.P. [address] [address] [phone] Social History Tobacco Use Types Packs/Day Years Used Date Smoking Tobacco: Former Cigarettes Quit : 04/07/1987 Smokeless Tobacco: Never Alcohol Habits Answer Date Recorded How often do you have a drink containing 4 or more times a w hoh 07/30/2021 alcohol? How many drinks containing alcohol [...] or relatives? How often do you attend hindu or Patient refused 2021 sikhism services? 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 - 11/16/2019 10:30 AM CDT Priscilla Fitzpatrick??is a pleasant 64 y.o.??female??who has known significant osteoarthritis of her??bilateral??knee. She??continues to have pain most noted with activity and is here today to discuss options. She??has tried conservative therapy as well as non conservative therapy including doqm-jmp-obwcojg analgesics which includes NSAIDs, activity modification, ice, physical therapy with continued home exercises, and cortisone injection without any significant improvement. ? Physical exam in general patient appears nondistressed.?bilateral??knee has no signs or symptoms of an infection. ?? Diagnostic studies- Xray of knee confirms degenerative arthritis of??bilateral??knee. ?? Impression and plan-??Priscilla Fitzpatrick??is a very pleasant 64 y.o.??who has known degenerative arthritis of the knee. It is impairing on activities of daily living. She??has tried conservative measures without improvement. ??She has had a positive response to viscosupplementation in the past She is here for her 3rd injection. ??After brief discussion on benefits and as well as risks, consent form was obtained, per sterile technique using 1% lidocaine and the lateral approach 1 standard dose of??Euflexa??was injected into the bilateral??knee without difficulty. ??Patient tolerated the procedure well. Will plan to see back in 6 months for repeat of injections. Questions were answered documented in this encounter Procedure Notes Trish Bhatti R.N. - 11/16/2019 10:30 AM CDTAssociated Order(s): nln-ftnl-qwfcjywk-elbow arthrocentesis: R knee joint; ovy-gspk-vckwnusf-elbow ar throcentesis: L knee joint Post-Procedure Diagnose(s): Pain Knee Bilateral Knee site- R knee joint : injection only Date/Time: 11/16/2019 11:22 AM Performed by: Kimberlyn Alvarez APRN, C.N.PPhil, Sharon.N.P. Authorized by: Kimberlyn Alvarez APRN, C.N.P., D.N.P. [...] L knee joint : injection only Date/Time: 11/16/2019 11:23 AM Performed by: Kimberlyn Alvarez APRN, C.N.P., D.N.P. Authorized by: Kim, Kimberlyn L, WIRE SETTER, C.N.P., D.N.P. PROCEDURE DETAILS Procedure Location knee [...] Visit Dermatology Lacy Dykes M.D. [address] [place], [place] [phone] (Wo rk) 02/22/2022 Office Visit Orthopedic Surgery Kimberlyn Alvarez APRN, C.N.P., D.N.P. [address] [place], [place] [phone] (Wo rk) 03/12/2022 Diagnostic Otorhinolaryngology Blanka Carranza C.N.P. [address] [place] [address] Aleena Hassan Au.D. [address] [place] [address] documented as of this encounter Procedures Procedure Name Priority Date/Time Associated Diagnosis Comme nts NM ARTHCS ASP/INJ Routine 11/16/2019 10:30 AM Pain Knee Bilate ral Results for this MJR JT WO US CDT procedure are i n the results section. NM ARTHCS ASP/INJ Routine 11/16/2019 10:30 AM Pain Knee Bilate ral Results for this MJR JT WO US CDT procedure are i n the results section. documented in this encounter Results NM ARTHCS ASP/INJ MJR JT WO US (11/16/2019 10:30 AM CDT) Narrative MMODAL - 11/16/2019 10:30 AM CDT Trish Bhatti R.N. ? 11/22/2019 ??9:02 AM Knee site- L knee joint : injection only Date/Time: 11/16/2019 11:23 AM Performed by: Kimberlyn Alvarez APRN, C.N. [...] Code Phon e Number MMODAL MMODAL NA NM ARTHCS ASP/INJ MJR JT WO US (11/16/2019 10:30 AM CDT) Narrative MMODAL - 11/16/2019 10:30 AM CDT Trish Bhatti R.N. ? 11/22/2019 ??9:02 AM Knee site- R knee joint : injection only Date/Time: 11/16/2019 11:22 AM Performed by: Kimberlyn Alvarez APRN, C.N. PPhil, PreetiNPhilP. Authorized by: Kimberlyn Alvarez APRN C.N .PPhil, Sharon.N.P. PROCEDURE DETAILS Procedure Location knee Knee [...] follow-up with ordering provider Kimberlyn Alvarez APRN, C.N.PPhil, Sharon.N.P. PROCEDURE/MINOR CONNOR GICAL ORDERABLES Performing Organization Address City/State/ZIP Code Phon e Number MMODAL MMODAL NA documented in this encounter Visit Diagnoses Diagnosis Pain Knee Bilateral - Primary documented in this encounter Administered Medications Inactive Administered Medications - up to 3 most recent administrations Medication Order MAR Action Action Date Dose Rate Site lidocaine 10 mg/mL (1 %) injection Given 11/16/2019 11:22 AM CDT 3 mL 3 mL (XYLOCAINE) 3 mL, infiltration, One-Time Injection, Starting on Fri11/16/19 at 1122, For 1 dose lidocaine 10 mg/mL (1 %) injection 3 mL Given 11/16/2019 11:23 A M CDT 3 mL (XYLOCAINE) 3 mL, infiltration, One-Time Injection, Starting on 8/11/20 at 1123, For 1 dose sodium hyaluronate (viscosup) injection 20 mg Given 11:22 AM CDT 20 mg (EUFLEXXA) 20 mg, intra-articular, One-Time Injection, Starting on Fri11/16/19 at 1122, For 1 dose sodium hyaluronate (viscosup) injection 20 mg Given 11:23 AM CDT 20 mg (EUFLEXXA) 20 mg, intra-articular, One-Time Injection, Starting on Fri11/16/19 at 1123, For 1 dose documented in this encounter Additional Health Concerns Assessment Noted Time PHQ-9 Depression Total Score: 2 04/22/2015 11:24 AM CS T documented as of this encounter
--- OUTSIDE RECORDS SUMMARY | 2022-01-31 09:36 | XMS_ITS | Encounter Summary ---
:1955 Author Organization [facility] Address [address] [place] [address] Care Team Providers Name Role Phone Elsewhere, Pcp Primary Care Provider Unavailable Reason for Referral Outpatient (Routine) - Closed Specialty Diagnoses / Procedures Referred By Contact Refer red To Contact Diagnoses Pain Knee Bilateral Kimberlyn Alvarez APRN, [facility] [place] [facility] Procedures txj-zxro-zcjoaefv-elbow arthrocentesis: L knee joint C.N.P., D.N.P. [address] [place] [phone] Referral ID Status Reason Start Date Expiration Date Visits Requ ested Visits Authorized [id number] Closed 11/02/2019 11/01/2020 1 1 utpatient (Routine) - Closed Specialty Diagnoses / Procedures Referred By Contact Refer red To Contact Diagnoses Pain Knee Bilateral Kimberlyn Alvarez APRN, [facility] [place] [facility] Procedures yrf-bdlq-taigvuhc-elbow arthrocentesis: R knee joint C.N.P., D.N.P. [address] [place] [address] Referral ID Status Reason Start Date Expiration Date Visits Requ ested Visits Authorized [id number] Closed 11/02/2019 11/01/2020 1 1 utpatient (Routine) - Closed Specialty Diagnoses / Procedures Referred By Contact Refer red To Contact Orthopedic Surgery Kimberlyn Alvarez APRN, [facility] C.N.P., D.N.P. [address] [place] [phone] Referral ID Status Reason Start Date Expiration Date Visits Requ ested Visits Authorized [id number] Closed 11/02/2019 11/01/2020 1 1 utpatient (Routine) - Closed Specialty Diagnoses / Procedures Referred By Contact Refer red To Contact Orthopedic Surgery Kimberlyn Alvarez [facility]N [facility] C.N.P., D.N.P. [address] [place] [phone] Referral ID Status Reason Start Date Expiration Date Visits Requ ested Visits Authorized [id number] Closed 11/02/2019 11/01/2020 1 1 Scheduling Instructions Schedule at 8 am with Kimberlyn Reason for Visit Reason Comments Pain Pain when doing stairs, and riding Bike, got bilateral euflexxa injections 2018- has been more act jamila since retiring in April Pain Intermittent pain when walki ng Appointment Request (Routine) - Closed Specialty Diagnoses / Procedures Referred By Contact Refer red To Contact Orthopedic Surgery Referral ID Status Reason Start Date Expiration Date Visits Requ ested Visits Authorized [id number] Closed 10/18/2019 10/17/2020 1 1 Encounter Details Date Type Department Care Team Description 11/02/2019 Office Visit Department of Kimberlyn Alvarez, Pain Knee B ilateral Orthopedic Surgery in SCHOOL HEALTH ASSISTANT, C.N.P., (Prim radha Dx) Virginia Wagoner D.N.P. [address] [place] [address] [phone] Social History Tobacco Use Types Packs/Day Years Used Date Smoking Tobacco: Former Cigarettes Quit : 04/07/1987 Smokeless Tobacco: Never Alcohol Habits Answer Date Recorded How often do you have a drink containing 4 or more times a w [employer] [place] [place] 07/30/2021 alcohol? How many drinks containing alcohol [...] or relatives? How often do you attend faith or Patient refused 2021 mandaen services? Do you belong to any clubs or Yes 07/30/2021 organizations such as faith groups, unions, fraternal or athletic groups, or [...] place to sleep or slept in a longterm (including now)? Education Answer Date Recorded What is the highest level of school Bachelor's degree (e.g., BA, AB, 03/10/2019 you have completed or the highest BS) degree you have received? 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 - 11/02/2019 11:30 AM CDT Priscilla Fitzpatrick is a pleasant 64 y.o. female who has known significant osteoarthritis of her bilateral knee. She continues to have pain most noted with activity and is here today to discuss options. She has tried conservative therapy as well as non conservative therapy including keac-qkj-emkbpvq anal gesics which includes NSAIDs, activity modification, ice, physical therapy with continued home exercises, and cortisone injection without any significant improvement. ?? Physical exam in general patient appears nondistressed. [...] response to viscosupplementation in the past She would liketo proceed with viscosupplementation injections. After brief discussion on benefits and as well as risks, consent form was obtained, per sterile technique using 1% lidocaine and the lateral approach 1 standard dose of Euflexa was injected into the bilateral knee without difficulty. Patient tolerated the procedure well. Will plan to see back in the following weeks for remainder of injections. Questions were answered documented in this encounter Procedure Notes Trish Bhatti R.N. - 11/02/2019 11:30 AM CDTAssociated Order(s): dyk-byfq-gyqmcmim-elbow arthrocentesis: L knee joint; hma-fase-hzzsmhfa-elbow ar throcentesis: R knee joint Post-Procedure Diagnose(s): Pain Knee Bilateral Knee site- R knee joint Date/Time: 11/02/2019 12:10 PM Performed by: Kimberlyn Alvarez APRN, C.N.P., Sharon.N.P. Authorized by: Kimberlyn Alvarez APRN, C.N.P., D.N.P. PROCEDURE DETAILS Procedure Location knee Knee site: R knee joint Site prep: patient was prepped and draped in usual sterile fashion Patient position: seated Procedural approach: anterolateral Needle gauge: 22 G, length: 1 1/2 [...] ordering provider Knee site- L knee joint Date/Time: 11/02/2019 12:12 PM Performed by: Kimberlyn Alvarez APRN, C.N.PPhil, D.N.P. Authorized by: Kimberlyn Alvarez APRN, C.N.P., D.N.P. PROCEDURE DETAILS Procedure Location knee Knee site: L knee joint Site prep: patient was prepped and draped in usual sterile fashion Patient position: seated Procedural approach: anterolateral Needle gauge: 22 G, length: 1 1/2 [...] Dermatology Lacy Dykes M.D. [address] [place], [place] [phone] (Wo rk) 02/22/2022 Office Visit Orthopedic Surgery Kimberlyn Alvarez APRN, C.N.P., D.N.P. [address] [place], [place] [phone] (Wo rk) 03/12/2022 Diagnostic Otorhinolaryngology Blanka Carranza C.N.P. [address] [place], [place] [phone] Aleena Hassan Au.D. [address] [place] [phone] Scheduled Referrals Name Type Priority Associated Order Schedule Diagnoses Orthopedic Surgery Outpatient Referral Routine Ex pected: office visit 11/09/2019 (clinic) (Approximate), Expires: 11/01/2022 Orthopedic Surgery Outpatient Referral Routine Ex pected: office visit 11/16/2019 (clinic) (Approximate), Expires: 11/01/2022 documented as of this encounter Procedures Procedure Name Priority Date/Time Associated Diagnosis Comme nts SC ARTHCS ASP/INJ Routine 11/02/2019 12:12 PM Pain Knee Bilate ral Results for this MJR JT WO US CDT procedure are i n the results section. SC ARTHCS ASP/INJ Routine 11/02/2019 12:10 PM Pain Knee Bilate ral Results for this MJR JT WO US CDT procedure are i n the results section. documented in this encounter Results SC ARTHCS ASP/INJ MJR JT WO US (11/02/2019 12:12 PM CDT) Narrative MMODAL - 11/02/2019 12:12 PM CDT Kimberlyn Alvarez APRN, C.N.P., D.N.P. ? 12/20/2020 ??2:29 PM Knee site- L knee joint Date/Time: 11/02/2019 12:12 PM Performed by: Kimberlyn Alvarez APRN, C.N. PPhil, D.N.P. Authorized by: Kimberlyn Alvarez APRN C.N .P., D.N.P. PROCEDURE DETAILS Procedure Location knee Knee site: L knee joint Site prep: patient was prepped and drape d in usual sterile fashion ?? Patient position: seated Procedural approach: anterolateral Needle gauge: 22 G, length: 1 1/2 [...] with ordering provider Kimberlyn Alvarez APRN, C.N.PPhil, D.N.P. PROCEDURE/MINOR CONNOR GICAL ORDERABLES Performing Organization Address City/State/ZIP Code Phon e Number MMODAL MMODAL NA SC ARTHCS ASP/INJ MJR JT WO US (11/02/2019 12:10 PM CDT) Narrative MMODAL - 11/02/2019 12:10 PM CDT Kimberlyn Alvarez APRN C.N.PPhil, D.N.P. ? 12/20/2020 ??2:29 PM Knee site- R knee joint Date/Time: 11/02/2019 12:10 PM Performed by: Kimberlyn Alvarez APRN, C.N. PPhil, D.N.P. Authorized by: Kimberlyn Alvarez APRN, C.N .P., D.N.P. PROCEDURE DETAILS Procedure Location knee Knee site: R knee joint Site prep: patient was prepped and drape d in usual sterile fashion ?? Patient position: seated Procedural approach: anterolateral Needle gauge: 22 G, length: 1 1/2 [...] lidocaine 10 mg/mL (1 %) injection Given 11/02/2019 12:10 PM CDT 3 mL 3 mL (XYLOCAINE) 3 mL, infiltration, One-Time Injection, Starting on Fri11/02/19 at 1210, For 1 dose lidocaine 10 mg/mL (1 %) injection 3 mL Given 11/02/2019 12:12 P M CDT 3 mL (XYLOCAINE) 3 mL, infiltration, One-Time Injection, Starting on Fri11/02/19 at 1212, For 1 dose sodium hyaluronate (viscosup) injection 20 mg Given 12:10 PM CDT 20 mg (EUFLEXXA) 20 mg, intra-articular, One-Time Injection, Starting on Fri11/02/19 at 1210, For 1 dose sodium hyaluronate (viscosup) injection 20 mg Given 12:12 PM CDT 20 mg (EUFLEXXA) 20 mg, intra-articular, One-Time Injection, Starting on Fri11/02/19 at 1212, For 1 dose documented in this encounter Additional Health Concerns Assessment Noted Time PHQ-9 Depression Total Score: 2 04/22/2015 11:24 AM CS T documented as of this encounter Care Teams Manager Surgery Relationship Specialty Start Date End Date Elsewhere, Pcp PCP - General Family Medicine 06/16/20 documented as of this encounter
--- OUTSIDE RECORDS SUMMARY | 2022-01-31 09:36 | XMS_ITS | Encounter Summary ---
:1955 Author Organization [facility] Address [address] [place] [address] Care Team Providers Name Role Phone Elsewhere, Pcp Primary Care Provider Unavailable Encounter Details Date Type Department Care Team Description 01/05/2020 Clinical Communication Department of Rhonda Oneill, Medicine, [place] [facility], in [address] [phone] Social History Tobacco Use Types Packs/Day Years Used Date Smoking Tobacco: Former Cigarettes Quit : 04/07/1987 Smokeless Tobacco: Never Alcohol Habits Answer Date Recorded How often do you have a drink containing 4 or more times a w [place] 07/30/2021 alcohol? How many drinks containing alcohol [...] or relatives? How often do you attend shinto or Patient refused 2021 catholic services? Do you belong to any clubs or Yes 07/30/2021 organizations such as shinto groups, unions, fraternal or athletic groups, or [...] place to sleep or slept in a snf (including now)? Education Answer Date Recorded What is the highest level of school Bachelor's degree (e.g., BA, AB, 03/10/2019 you have completed or the highest BS) degree you have received? 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 Is the patient requesting a COVID test only or other appointments? Other Appointments 2. Have you tested positive for COVID-19 in the last 30 days or do you have a pending COVID-19 test because you had symptoms? no 3. In the last 14 days have you had close contact with a lab confirmed positive case of COVID-19 (close contact is defined as a household case of COVID or being within 6 feet of a COVID-19 patient for more than 5 minutes or having direct contact with infectious secretions, e.g., being coughed on)? no 4. In the past 14 days, are any of the following symptoms new to you and not related to an existing health condition? a. Fever greater than or equal to 37.8 C (100.0 F)? no b. New symptoms (Specifically: headache, cough, shortness of breath, respiratory distress, sore throat, diarrhea, nausea, vomiting, chills and repeated shaking with chills, myalgia's (muscle aches), loss of smell, or change or loss of taste sensation)? no 5. Are you having NEW trouble breathing, worsening breathing, or feeling as though you're going to collapse when you stand or sit up? no 6. Have you tested positive for COVID in the last 90 days? no Route reply to: Scheduling Contact Number: documented in this encounter Plan of Treatment Upcoming Encounters Date Type Specialty Care Team Description 02/02/2022 Immunization Family Medicine 02/12/2022 Office Visit Dermatology Lacy Dykes M.D. [address] [place], [place] [phone] (Wo rk) 02/22/2022 Office Visit Orthopedic Surgery Kimberlyn Alvarez APRN, C.N.P., D.N.P. [address] [place], [place] [phone] (Wo rk) 03/12/2022 Diagnostic Otorhinolaryngology Blanka Carranza C.N.P. [address] [place], [place] [phone] Aleena Hassan Au.D. [address] [place] [phone] documented as of this encounter Visit Diagnoses Not on filedocumented in this encounter Additional Health Concerns Assessment Noted Time PHQ-9 Depression Total Score: 2 04/22/2015 11:24 AM CS T documented as of this encounter Care Teams Med Dir Relationship Specialty Start Date End Date Elsewhere, Pcp PCP - General Family Medicine 01/05/20 06/13/20 documented as of this encounter
--- OUTSIDE RECORDS SUMMARY | 2022-01-31 09:36 | XMS_ITS | Encounter Summary ---
:1955 Author Organization [facility] Address [address] [place] [address] Care Team Providers Name Role Phone Elsewhere, Pcp Primary Care Provider Unavailable Encounter Details Date Type Department Care Team Description 12/19/2020 Clinical Communication Department of Jenise Munoz Internal Medicine in [facility] [address] [place], [place] [phone] Social History Tobacco Use Types Packs/Day Years Used Date Smoking Tobacco: Former Cigarettes Quit : 04/07/1987 Smokeless Tobacco: Never Alcohol Habits Answer Date Recorded How often do you have a drink containing 4 or more times a w [place] 07/30/2021 alcohol? How many drinks containing alcohol [...] or relatives? How often do you attend tenriism or Patient refused 2021 druze services? 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 [address] [place], [place] [phone] (Wo rk) 02/22/2022 Office Visit Orthopedic Surgery Kimberlyn Alvarez, JOSE DANIEL, C.N.P., D.N.P. [address] [place], [place] [phone] (Wo rk) 03/12/2022 Diagnostic Otorhinolaryngology Blanka Carranza, C.N.P. [address] [place] [address] Aleena Hassan Au.D. [address] [place] [phone] documented as of this encounter Visit Diagnoses Not on filedocumented in this encounter Additional Health Concerns Assessment Noted Time PHQ-9 Depression Total Score: 2 04/22/2015 11:24 AM CS T documented as of this encounter Care Teams Applied Statistician Relationship Specialty Start Date End Date Elsewhere, Pcp PCP - General Family Medicine 06/16/20 documented as of this encounter
--- OUTSIDE RECORDS SUMMARY | 2022-01-31 09:36 | XMS_ITS | Encounter Summary ---
:1955 Author Organization [facility] Address [address] [place] [address] Care Team Providers Name Role Phone Elsewhere, Pcp Primary Care Provider Unavailable Reason for Visit Reason Comments Colon cancer screening chart review Encounter Details Date Type Department Care Team Description 06/16/2020 Clinical Communication Department of Iona Cui on cancer Family Medicine, L, P.A.-C., screening c [facility], in [address] [phone] Social History Tobacco Use Types Packs/Day Years Used Date Smoking Tobacco: Former Cigarettes Quit : 04/07/1987 Smokeless Tobacco: Never Alcohol Habits Answer Date Recorded How often do you have a drink containing 4 or more times a w [place] 07/30/2021 alcohol? How many drinks containing alcohol [...] or relatives? How often do you attend spiritism or Patient refused 2021 moravian services? 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 - 06/16/2020 10:58 AM INPATIENT SERVICES RN Review of chart for colon cancer screening shows pt established care at [facility] with Dr. Brenda Gannon 12/30/19. Please update records to reflect PCP elsewhere. TIENT SERVICES RN documented in this encounter Plan of Treatment Upcoming Encounters Date Type Specialty Care Team Description 02/02/2022 Immunization Family Medicine 02/12/2022 Office Visit Dermatology Lacy Dykes M.D. [address] [place], [place] [phone] (Lisha rk) 02/22/2022 Office Visit Orthopedic Surgery Kimberlyn Alvarez APRN, C.N.P., D.N.P. [address] [place], [place] [phone] (Wo rk) 03/12/2022 Diagnostic Otorhinolaryngology Blanka Carranza C.N.P. [address] [place] [address] Aleena Hassan Au.D. [address] [place] [phone] documented as of this encounter Visit Diagnoses Not on filedocumented in this encounter Additional Health Concerns Assessment Noted Time PHQ-9 Depression Total Score: 2 04/22/2015 11:24 AM CS T documented as of this encounter Care Teams Tube Skiver Relationship Specialty Start Date End Date Elsewhere, Pcp PCP - General Family Medicine 06/16/20 documented as of this encounter
--- OUTSIDE RECORDS SUMMARY | 2022-01-31 09:36 | XMS_ITS | Encounter Summary ---
:1955 Author Organization [facility] Address [address] [place] [address] Care Team Providers Name Role Phone Elsewhere, Pcp Primary Care Provider Unavailable Reason for Referral Outpatient (Routine) - Closed Specialty Diagnoses / Procedures Referred By Contact Refer red To Contact Orthopedic Surgery Kimberlyn Alvarez APRN, [facility] C.N.P., D.N.P. [address] [place] [phone] Referral ID Status Reason Start Date Expiration Date Visits Requ ested Visits Authorized [id number] Closed 03/06/2021 03/06/2022 1 1 Scheduling Instructions 8 am patient is aware utpatient (Routine) - Closed Specialty Diagnoses / Procedures Referred By Contact Brett red To Contact Orthopedic Surgery Kimberlyn Alvarez APRN, [facility] C.N.P., D.N.P. [address] [place] [phone] Referral ID Status Reason Start Date Expiration Date Visits Requ ested Visits Authorized [id number] Closed 03/06/2021 03/06/2022 1 1 Scheduling Instructions 8 am patient is aware utpatient (Routine) - Authorized Specialty Diagnoses / Procedures Referred By Contact Refer red To Contact Diagnoses Pain Knee Bilateral Primary Osteoarthritis Knee Bilateral Kimberlyn Alvarez, JOSE DANIEL, [facility] [place] [facility] Procedures fnr-mpjy-qptjzmyr-elbow arthrocentesis: Bilat knee joint Siomara, Sharon.N.PPhil [address] [place] [phone] Referral ID Status Reason Start Date Expiration Date Visits V isits Requested Authorized [id number] Authorized 03/06/2021 03/06/2022 1 1 E MECHANIC Reason for Visit Reason Comments Pain Pain Encounter Details Date Type Department Care Team Description 03/06/2021 Office Visit Department of Kimberlyn Alvarez, Pain Knee B ilateral (Primary Dx); Orthopedic Surgery in [place] SKY, Prima ry Osteoarthritis Knee Bilateral OrrickMelvina Wagoner [address] [phone] Social History Tobacco Use Types Packs/Day Years Used Date Smoking Tobacco: Former Cigarettes Quit : 04/07/1987 Smokeless Tobacco: Never Alcohol Habits Answer Date Recorded How often do you have a drink containing 4 or more times a w [place] 07/30/2021 alcohol? How many drinks containing alcohol [...] or relatives? How often do you attend worship or Patient refused 2021 jewish services? 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 - 03/06/2021 8:00 AM CST Priscilla Fitzpatrick is a pleasant 65 y.o. female who has known significant osteoarthritis of her bilateral knee. She has had Euflexxa injections in the past which were very helpful. She is noting discomfort in her knees and does not want her future activities to be limited by her knee pain. She has tried conservative therapy as well as non conservative therapy including soww-gqb-daqnbzi analgesics which includes NSAIDs, activity modification, ice, physical therapy with continued home exercises.. ?? Physical exam in general patient appears nondistressed. bilateral knee has no signs or symptoms of an infection. There is 0-120?? flexion. Knee is stable to valgus and varus. ?? Diagnostic studies- Xray of knee confirms degenerative arthritis of bilateral knee. ?? Impression and plan- Priscilla Fitzpatrick is a very pleasant 65 y.o. who has known degenerative arthritis of the knee. She is here for repeat Euflexxa injections. After brief discussion on benefits and aswell as risks, consent form was obtained, per sterile technique using 1% lidocaine and the lateral approach 1 standard dose of Euflexa was injected into the bilateral knee without difficulty. Patient tolerated the procedure well. Will plan to see back in the following weeks for remainder of injections. Questions were answered E MECHANIC documented in this encounter Procedure Notes Trish Bhatti R.N. - 03/06/2021 8:00 AM CSTAssociated Order(s): ykv-iqsf-hhxskcod-elbow arthrocentesis: Bilat knee joint Post-Procedure Diagnose(s): Pain Knee Bilateral; Primary Osteoarthritis Knee Bilateral Knee site- Bilat knee joint : injection only Date/Time: 03/06/2021 8:09 AM Performed by: Kimberlyn Alvarez APRN, Kp.N.P., Sharon.N.P. Authorized by: Kimberlyn Alvarez APRN, Kp.N.P., Sharon.N.P. PROCEDURE DETAILS Procedure Location knee Knee site: Bilat knee joint Site prep: patient was prepped and draped in usual sterile fashion Patient position: seated Procedural approach: anterolateral Procedure performed: injection only Needle gauge: 22 G, length: 1 1/2 in Procedural Medication The following medications were administered at the target site(s) On the right: Local anesthetic: 3 mL lidocaine 10 mg/mL (1 %) Viscosupplement: 20 mg sodium hyaluronate (viscosup) 10 mg/mL(mw 2.4 -3.6 million) On the left: Local anesthetic: 3 mL lidocaine 10 mg/mL (1 %) Viscosupplement: 20 mg sodium hyaluronate (viscosup) 10 mg/mL(mw 2.4 -3.6 million) CONSENT Consent obtained: written UNIVERSAL PROTOCOL All relevant documentation and testing were reviewed and available. All required blood products, implants, devices and or special equipment were made available as applicable. Pre-procedure verificationwas conducted and the correct site was marked if required. A fire risk assessment was done as applicable. The procedural time-out was conducted prior to performing the procedure and confirmed in a procedural pause. PRE-PROCEDURE DETAILS Procedure purpose: therapeutic Appropriate hand hygiene, gown, cap, mask, protective eyewear, sterile gloves, skin preparation, sterile drape, and strict aseptic technique were utilized as applicable for the procedure. Site preparation: povidone-iodine SEDATION / ANESTHESIA Anesthesia method: none POST-PROCEDURE DETAILS Procedure completed successfully: yes Complications: no apparent complications Post-procedure instructions: avoid strenuous activity for 5 days Discharge instructions: dressing care and follow-up with ordering provider E MECHANIC documented in this encounter Plan of Treatment Upcoming Encounters Date Type Specialty Care Team Description 02/02/2022 Immunization Family Medicine 02/12/2022 Office Visit Dermatology Lacy Dykes M.D. [address] [place], [place] [phone] (Wo rk) 02/22/2022 Office Visit Orthopedic Surgery Kimberlyn Alvarez APRN, C.N.P., D.N.P. [address] [place], [place] [phone] (Wo rk) 03/12/2022 Diagnostic Otorhinolaryngology Blanka Carranza, C.N.P. [address] [place], [place] [phone] Aleena Hassan Au.D. [address] [place] [address] Scheduled Referrals Name Type Priority Associated Order Schedule Diagnoses Orthopedic Surgery Outpatient Referral Routine Ex pected: office visit 03/13/2021 (clinic) (Approximate), Expires: 06/04/2022 Orthopedic Surgery Outpatient Referral Routine Ex pected: office visit 03/20/2021, (clinic) Expires: 06/04/2022 documented as of this encounter Procedures Procedure Name Priority Date/Time Associated Diagnosis Comme nts CO ARTHCS ASP/INJ Routine 03/06/2021 8:09 AM Pain Knee B ilateral Results for this MJR JT WO US LATHE MECHANIC Primary Osteoarthritis proce dure are in Knee Bilateral the results section. documented in this encounter Results CO ARTHCS ASP/INJ MJR JT WO US (03/06/2021 8:09 AM LATHE MECHANIC) Narrative MMODAL - 03/06/2021 8:09 AM LATHE MECHANIC Trish Bhatti R.N. ? 03/06/2021 ??8:22 AM Knee site- Bilat knee joint : injection only Date/Time: 03/06/2021 8:09 AM Performed by: Kimberlyn Alvarez APRN, C.N. [...] target site(s) On the right: Local anesthetic: 3 mL lidocaine 10 mg/m L (1 %) Viscosupplement: 20 mg sodium hyaluronat e (viscosup) 10 mg/mL(mw 2.4 -3.6 million) On the left: Local anesthetic: 3 mL lidocaine 10 mg/m L (1 %) Viscosupplement: 20 mg sodium hyaluronat e (viscosup) 10 mg/mL(mw 2.4 -3.6 million) CONSENT Consent obtained: written UNIVERSAL PROTOCOL All relevant documentation and testing w ere reviewed and available. All required blood products, implants, devic es and or special equipment were made available as applicable. Pre-proced ure verification was conducted and the correct site was marked if required. A fire risk assessment was done as applicable. The procedural time-out w as conducted prior to performing the procedure and confirmed in a procedu ral pause. PRE-PROCEDURE DETAILS Procedure purpose: therapeutic Appropriate hand hygiene, gown, cap, mas k, protective eyewear, sterile gloves, skin preparation, sterile drape, and strict aseptic technique were utilized as applicable for the procedure . Site preparation: povidone-iodine SEDATION / ANESTHESIA Anesthesia [...] 10 mg/mL (1 %) injection 3 Given 03/06/2021 8:09 AM CS T 3 mL mL (XYLOCAINE) 3 mL, infiltration, One-Time Injection, Starting on Fri03/06/21 at 0809, For 1 dose lidocaine 10 mg/mL (1 %) injection 3 mL Given 03/06/2021 8:09 AM LATHE MECHANIC 3 mL (XYLOCAINE) 3 mL, infiltration, One-Time Injection, Starting on Fri03/06/21 at 0809, For 1 dose sodium hyaluronate (viscosup) injection 20 mg Given 8:09 AM LATHE MECHANIC 20 mg (EUFLEXXA) 20 mg, intra-articular, One-Time Injection, Starting on Fri03/06/21 at 0809, For 1 dose sodium hyaluronate (viscosup) injection 20 mg Given 8:09 AM LATHE MECHANIC 20 mg (EUFLEXXA) 20 mg, intra-articular, One-Time Injection, Starting on Fri03/06/21 at 0809, For 1 dose documented in this encounter Additional Health Concerns Assessment Noted Time PHQ-9 Depression Total Score: 2 04/22/2015 11:24 AM CS T documented as of this encounter Care Teams Building Services Technician Relationship Specialty Start Date End Date Elsewhere, Pcp PCP - General Family Medicine 06/16/20 documented as of this encounter
--- OUTSIDE RECORDS SUMMARY | 2022-01-31 09:36 | XMS_ITS | Encounter Summary ---
:1955 Author Organization [facility] Address [address] [place] [address] Care Team Providers Name Role Phone Elsewhere, Pcp Primary Care Provider Unavailable Reason for Visit Reason Comments Skin Check Encounter Details Date Type Department Care Team Description 01/17/2020 Office Visit Department of Lacy Dykes Nevi Multi ple (Primary Dx); Dermatology in [place]he[place] Heaton Keratosis Seborrheic [place], [place] [address] [phone] Social History Tobacco Use Types Packs/Day Years Used Date Smoking Tobacco: Former Cigarettes Quit : 04/07/1987 Smokeless Tobacco: Never Alcohol Habits Answer Date Recorded How often do you have a drink containing 4 or more times a w [place] 07/30/2021 alcohol? How many drinks containing alcohol [...] you attend hindu or Patient refused 2021 yazidism services? 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 - 01/17/2020 8:15 AM CDT SUBJECTIVE CHIEF COMPLAINT / REASON FOR VISIT Skin cancer screening exam HISTORY OF PRESENT ILLNESS Ms. Priscilla Fitzpatrick is a 64 y.o. female who presents today for a full skin cancer screening examination. She was last seen for her full skin cancer screening exam on 03/15/2019. 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 Olivarez at [facility]. The patient denies a personal or family history for melanoma. She reports regular use of sunscreen. No areas of concern today. Allergies Allergen Reactions ??? Diphtheria,Pertussis,Tetanus,Polio Vacc Other (see comments) No reaction listed in Cerner ??? Hylan G-F 20 Other (see comments) Synvisc - No reaction listed in Cerner ??? Pollen Extracts Other (see comments) No reaction listed in Cerner ??? Wasp Venom Other (see comments) Hornet - No reaction listed in Cerner MEDICAL HISTORY 1. 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 Olivarez at [facility] FAMILY HISTORY 1. Non-melanoma skin cancers in mother and father 2. Negative for melanoma OBJECTIVE PHYSICAL EXAMINATION General: Awake, alert, in no acute distress, and with appropriate affect. Eyes: No scleral injection or icterus. No eyelid abnormalities. Lymph: No lower extremity edema. Skin: I have examined the scalp, face, neck, chest, abdomen, back, bilateral upper extremities, and bilateral lower extremities. My scribe Cristina was present for the full exam today. Examination of the right distal medial thigh reveals no clinical evidence for local recurrence of severely atypical nevus. Examination of the right upper posterior thigh reveals a dermatofibroma. Examination of face, trunk, and extremities reveals multiple benign appearing nevi and lentigines, and multiple SKs. Examination today reveals no suspicious lesions for skin cancer. ASSESSMENT / PLAN #1 Face, trunk, and extremities: Multiple benign appearing nevi and lentigines The ABCDE criteria for melanoma was reviewed with the patient. None of the patient's nevi reach the clinical threshold for biopsy. I recommend continued sun protection, self-skin examinations, and observation. Should any of the patient's nevi change in size, color, texture, or shape or develop symptoms such as itching or bleeding, I recommend an immediate return visit for reassessment. #2 Face, trunk, and extremities: Seborrheic keratosis The benign nature of the skin lesion(s) was discussed with the patient. No treatment is required. I recommend continued observation. Should symptoms or changes develop related to this condition, I would recommend a return visit for reassessment. #3 Right upper posterior thigh: Dermatofibroma The benign nature of the skin lesion(s) was discussed with the patient. No treatment is required. I recommend continued observation. Should symptoms or changes develop related to this condition, I would recommend a return visit for reassessment. #4 Right distal medial thigh: Junctional nevus with severe atypia, status post re-excision on 07/29/[address] Olivarez at [facility], no recurrence Examination today reveals no clinical evidence of recurrence. Follow up immediately if changes are noticed during monthly self examination. Otherwise followup in 6 months. PATIENT EDUCATION: Ready to learn. No apparent learning barriers were identified. Learning preferences include listening. Explained diagnosis and treatment plan; patient/guardian of patient expressed understanding of thecontent. By signing my name below, I, Lori Graff, attest that this documentation has been prepared underthe direction and in the presence of Lacy Dykes M.D. Electronically Signed: tiana Gil. 01/17/2020. I, Lacy Dykes M.D., personally performed the services described in this documentation. All medical record entries made by the scribe were at my direction and in my presence. I have reviewed the chart and discharge instructions (if applicable) and agree that the record reflects my personal performance and is accurate and complete. Lacy Dykes M.D. 01/17/2020. documented in this encounter Plan of Treatment Upcoming Encounters Date Type Specialty Care Team Description 02/02/2022 Immunization Family Medicine 02/12/2022 Office Visit Dermatology Lacy Dykes M.D. [address] [place], [place] [phone] (Wo rk) 02/22/2022 Office Visit Orthopedic Surgery Kimberlyn Alvarez, JOSE DANIEL, C.N.P., D.N.P. [address] [place], [place] [phone] (Wo rk) 03/12/2022 Diagnostic Otorhinolaryngology Blanka Carranza, C.N.P. [address] [place] [address] Aleena Hassan Au.D. [address] [place] [phone] documented as of this encounter Visit Diagnoses Diagnosis Nevi Multiple - Primary Keratosis Seborrheic documented in this encounter Additional Health Concerns Assessment Noted Time PHQ-9 Depression Total Score: 2 04/22/2015 11:24 AM CS T documented as of this encounter Care Teams Fiscal Specialist Relationship Specialty Start Date End Date Elsewhere, Pcp PCP - General Family Medicine 01/05/20 06/13/20 documented as of this encounter
--- OUTSIDE RECORDS SUMMARY | 2022-01-31 09:36 | XMS_ITS | Encounter Summary ---
:1955 Author Organization [facility] Address [address] [place] [address] Care Team Providers Name Role Phone Unavailable Primary Care Provider Unavailable Encounter Details Date Type Department Care Team Description 11/23/2019 Clinical Communication Department of Bibi Freeman, Orthopedic Surgery in [address] [phone] Social History Tobacco Use Types Packs/Day Years Used Date Smoking Tobacco: Former Cigarettes Quit : 04/07/1987 Smokeless Tobacco: Never Alcohol Habits Answer Date Recorded How often do you have a drink containing 4 or more times a w [place] 07/30/2021 alcohol? How many drinks containing alcohol [...] or relatives? How often do you attend hoahaoism or Patient refused 2021 alevism services? 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 - 11/23/2019 1:12 PM CDT Discussed with Kimberlyn, this case request was entered on the wrong person in error. Priscilla is not having surgery. Emerald are you able to delete this case request? Telephone Encounter - Oksana Engle L.P.NPhil - 11/23/2019 12:08 PM CDT Forwarding to [facility] Wagoner, she was seen there on that day, do you have any knowledge of this? Telephone Encounter - Bibi Freeman R.N. - 11/23/2019 11:48 AM CDT Patient is listed on 11/[address] Sweeney. We have not received communication and there have not been any preoperative appointments been scheduled. Please review. Thanks documented in this encounter Plan of Treatment Upcoming Encounters Date Type Specialty Care Team Description 02/02/2022 Immunization Family Medicine 02/12/2022 Office Visit Dermatology Lacy Dykes M.D. [address] [place], [place] [phone] ( rk) 02/22/2022 Office Visit Orthopedic Surgery Kimberlyn Alvarez APRN, C.N.P., D.N.P. [address] [place], [place] [phone] ([facility]) 03/12/2022 Diagnostic Otorhinolaryngology Blanka Carranza, C.N.P. [address] [place], [place] [phone] Aleena Hassan Au.D. [address] [place] [phone] documented as of this encounter Visit Diagnoses Not on filedocumented in this encounter Additional Health Concerns Assessment Noted Time PHQ-9 Depression Total Score: 2 04/22/2015 11:24 AM CS T documented as of this encounter
--- OUTSIDE RECORDS SUMMARY | 2022-01-31 09:36 | XMS_ITS | Encounter Summary ---
:1955 Author Organization [facility] Address [address] [place] [address] Care Team Providers Name Role Phone Elsewhere, Pcp Primary Care Provider Unavailable Reason for Visit Reason Comments Skin Check Appointment Request (Routine) - Closed Specialty Diagnoses / Procedures Referred By Contact Refer red To Contact Referral ID Status Reason Start Date Expiration Date Visits Requ ested Visits Authorized [id number] Closed 06/06/2020 06/06/2021 1 1 Encounter Details Date Type Department Care Team Description 08/08/2020 Office Visit Department of Lacy Dykes Nevi Multi ple (Primary Dx); Dermatology in [place] Keratosis Seborrheic [place], [place] [address] [phone] Social History Tobacco Use Types Packs/Day Years Used Date Smoking Tobacco: Former Cigarettes Quit : 04/07/1987 Smokeless Tobacco: Never Alcohol Habits Answer Date Recorded How often do you have a drink containing 4 or more times a w [place] 07/30/2021 alcohol? How many drinks containing alcohol [...] or relatives? How often do you attend evangelical or Patient refused 2021 scientologist services? Do you belong to any clubs or Yes 07/30/2021 organizations such as evangelical groups, unions, fraternal or athletic groups, or [...] place to sleep or slept in a correction (including now)? Education Answer Date Recorded What is the highest level of school Bachelor's degree (e.g., BA, AB, 03/10/2019 you have completed or the highest BS) degree you have received? 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 - 08/08/2020 4:00 PM CDT SUBJECTIVE CHIEF COMPLAINT / REASON FOR VISIT Skin cancer screening exam HISTORY OF PRESENT ILLNESS Ms. Priscilla Fitzpatrick is a 64 y.o. female who presents today for a full skin cancer screening examination. The patient was last seen by me in Dermatology clinic on 01/17/2020. She has been in [place] all winter in unfortunately her mother who lives there this year. The patient denies a personal history of skin cancer or family history for melanoma. She does have ahistory of a junctional nevus with severe atypia involving the right distal medial thigh, status post re-excision on 07/29/[address] Olivarez at [facility]. The patient denies any lesions of concern. Allergies Allergen Reactions ??? Diphtheria,Pertussis,Tetanus,Polio Vacc Other (see comments) No reaction listed in Cerner ??? Hylan G-F 20 Other (see comments) Synvisc - No reaction listed in Cerner ??? Pollen Extracts Other (see comments) No reaction listed in Cerner ??? Wasp Venom Other (see comments) Hornet - No reaction listed in Cerner MEDICAL HISTORY No history of skin cancer Right distal medial thigh: Junctional nevus with severe atypia, status post re- excision on 07/29/[address] Olivarez at [facility] ?? FAMILY HISTORY Non-melanoma skin cancers in mother and father Negative for melanoma OBJECTIVE PHYSICAL EXAMINATION General: [...] recurrence of severely atypical nevus. Examination of face, trunk, and extremities reveals multiple benign appearing nevi and lentigines, and multiple SKs. Examination today reveals no suspicious lesions for skin cancer. ASSESSMENT / PLAN #1 Right distal medial thigh: Junctional nevus with severe atypia, status post re-excision on 07/29/[address] Olivarez at [facility], no recurrence Examination today reveals no clinical evidence of recurrence. Follow up immediately if changes are noticed during monthly self examination. Otherwise followup in 6 months. #2 Face, trunk, and extremities: Multiple benign appearing [...] an immediate return visit for reassessment. #3 Face, trunk, and extremities: Seborrheic keratosis The benign nature of the skin lesion(s) was discussed with the patient. No treatment is required. I recommend continued observation. Should symptoms or changes develop related to this condition, I would recommend a return visit for reassessment. PATIENT EDUCATION: Ready to learn. No apparent learning barriers were identified. Learning preferences include listening. Explained diagnosis and treatment plan; patient/guardian of patient expressed understanding of thecontent. By signing my name below, I, Lori Graff, attest that this documentation has been prepared underthe direction and in the presence of Lacy Dykes M.D. Electronically Signed: tiana Gil. I, Lacy Dykes M.D., personally performed the [...] Visit Dermatology Lacy Dykes M.D. [address] [place], [place] [phone] (Wo rk) 02/22/2022 Office Visit Orthopedic Surgery Kimberlyn Alvarez, JOSE DANIEL, C.N.P., D.N.P. [address] [place], [place] [phone] (Wo rk) 03/12/2022 Diagnostic Otorhinolaryngology Blanka Carranza, C.N.P. [address] [place] [address] Aleena Hassan Au.D. [address] [place] [phone] documented as of this encounter Visit Diagnoses Diagnosis Nevi Multiple - Primary Keratosis Seborrheic documented in this encounter Additional Health Concerns Assessment Noted Time PHQ-9 Depression Total Score: 2 04/22/2015 11:24 AM CS T documented as of this encounter Care Teams Chrome Plater Helper Relationship Specialty Start Date End Date Elsewhere, Pcp PCP - General Family Medicine 06/16/20 documented as of this encounter
--- OUTSIDE RECORDS SUMMARY | 2022-01-31 09:36 | XMS_ITS | Encounter Summary ---
:1955 Author Organization [facility] Address [address] [place] [address] Care Team Providers Name Role Phone Elsewhere, Pcp Primary Care Provider Unavailable Reason for Referral Specialty Diagnoses / Procedures Referred By Contact Refer red To Contact Chantel Koenig M.D. [facility] Region [address] [place] [address] Referral ID Status Reason Start Date Expiration Date Visits Requ ested Visits Authorized PIGMENT REDUCER Encounter Details Date Type Department Care Team Description 02/15/2021 [facility] Sa laura Koenig M.D. [address] [place], [place] [phone] (Wo rk) Social History Tobacco Use Types Packs/Day Years Used Date Smoking Tobacco: Former Cigarettes Quit : 04/07/1987 Smokeless Tobacco: Never Alcohol Habits Answer Date Recorded How often do you have a drink containing 4 or more times a w [place] 07/30/2021 alcohol? How many drinks containing alcohol [...] you attend hindu or Patient refused 2021 denominational services? Do [...] place to sleep or slept in a fci (including now)? Education Answer Date Recorded What is the highest level of school Bachelor's degree (e.g., BA, AB, 03/10/2019 you have completed or the highest BS) degree you have received? 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 [address] [place], [place] [phone] (Lisha mccann) 02/22/2022 Office Visit Orthopedic Surgery Kimberlyn Alvarez APRN, C.N.P., D.N.P. [address] [place], [place] [phone] (Wo rk) 03/12/2022 Diagnostic Otorhinolaryngology Blanka Carranza, C.N.P. [address] [place] [address] Aleena Hassan Au.D. [address] [place] [phone] Scheduled Referrals Name Type Priority Associated Order Schedule Diagnoses Covid immunization Outpatient Referral Routine Ex pected: office visit Booster 021 (Approximate), Expires: 02/15/2022 documented as of this encounter Visit Diagnoses Not on filedocumented in this encounter Additional Health Concerns Assessment Noted Time PHQ-9 Depression Total Score: 2 04/22/2015 11:24 AM CS T documented as of this encounter Care Teams Doughmaker Relationship Specialty Start Date End Date Elsewhere, Pcp PCP - General Family Medicine 06/16/20 documented as of this encounter
--- OUTSIDE RECORDS SUMMARY | 2022-01-31 09:36 | XMS_ITS | Encounter Summary ---
:[address] [facility] Address [address] [place] [address] Care Team Providers Name Role Phone Elsewhere, Pcp Primary Care Provider Unavailable Reason for Visit Reason Comments Other Euflexxa - Insurance Problem Encounter Details Date Type Department Care Team Description 12/19/2020 Clinical Communication Department of Kimberlyn Alvarze (Euflexxa - Orthopedic Surgery L, VP CLIENT SERVICES, Insurance Problem) in [place], C.N.P., D.N.P. [address] [phone] Social History Tobacco Use Types Packs/Day Years Used Date Smoking Tobacco: Former Cigarettes Quit : 04/07/1987 Smokeless Tobacco: Never Alcohol Habits Answer Date Recorded How often do you have a drink containing 4 or more times a w [place] 07/30/2021 alcohol? How many drinks containing alcohol [...] or relatives? How often do you attend presybeterian or Patient refused 2021 buddhism services? Do you belong to any clubs or Yes 07/30/2021 organizations such as presybeterian groups, unions, fraternal or athletic groups, or [...] place to sleep or slept in a [facility] (including now)? Education Answer Date Recorded What is the highest level of school Bachelor's degree (e.g., BA, AB, 03/10/2019 you have completed or the highest BS) degree you have received? 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 Telephone Encounter - Deb Tamez - 12/20/2020 4:38 PM CDT I also called out Patient account services, and they are going to send out a ammended claim to the insurance co. We need to use code J 7323 for Euflexxa Telephone Encounter - Deb Tamez - 12/20/2020 4:28 PM CDT At patients request I did call Jaz Lyles ( the rx management for [employer]) at . All theydid at this time was to make a note in her file regarding the 11/02/2019 office note should be covered. Telephone Encounter - Deb Tamez - 12/20/2020 3:32 PM CDT Images from the original note were not included. Can you see if the provider can update the Proc Doc medication? If not I can change it but I do not like to if the documentation doesn???t back it up. Marge Covarrubias Telephone Encounter - Deb Tamez - 12/20/2020 3:14 PM CDT Wrong J code was used it was changed, and I asked that a new bill or correction be sent to the insurance co. Telephone Encounter - Deb Tamez - 12/19/2020 11:54 AM CDT Patient calls today. She states she had Euflexxa injections in both knees in on 11/02/19 Her insurance co is denying her injections. She has had these injections previously on 12/02/17, & 02/02/19, and they where covered. She gave me this information: [employer]- RX Management Is phone: [phone] Member ID- [id number] Ref#-[id number] Code J 7321 In her past injections of Euflexxa the J code has been (7323) ? Could this be the problem? She is allergic to synvisc, has failed all conservative measures( anti- inflammatories, steroid injections, takes inflammatories regularly. The insurance co said at this point they want a phone call to the med management. I believe a request was put in the day of the injection, but they have always stated a prior auth is not needed for this, so I do not know what changed. 7 documented in this encounter Plan of Treatment Upcoming Encounters Date Type Specialty Care Team Description 02/02/2022 Immunization Family Medicine 02/12/2022 Office Visit Dermatology Lacy Dykes M.D. [address] [place], [place] [phone] (Wo rk) 02/22/2022 Office Visit Orthopedic Surgery Kimberlyn Alvarez APRN C.N.P., D.N.P. [address] [place], [place] [phone] (Wo rk) 03/12/2022 Diagnostic Otorhinolaryngology Blanka Carranza, C.N.P. [address] [place], [place] [phone] Aleena Hassan Au.D. [address] [place] [address] documented as of this encounter Visit Diagnoses Not on filedocumented in this encounter Additional Health Concerns Assessment Noted Time PHQ-9 Depression Total Score: 2 04/22/2015 11:24 AM CS T documented as of this encounter Care Teams Fire Protection Specialist Relationship Specialty Start Date End Date Elsewhere, Pcp PCP - General Family Medicine 06/16/20 documented as of this encounter
--- OUTSIDE RECORDS SUMMARY | 2022-01-31 09:37 | XMS_ITS | Encounter Summary ---
:1955 Author Organization [facility] Address [address] [place] [address] Care Team Providers Name Role Phone Unavailable Primary Care Provider Unavailable Reason for Visit Reason Onset Date Comments [facility] D[facility] appointment 05/27/2019 Encounter Details Date Type Department Care Team Description 05/27/2019 Clinical Communication Department of Lacy Dykes Derm Dermatology in N, MPhilD. appointment [place], [place] [address] [facility] [address] [place] [phone] Social History Tobacco Use Types Packs/Day Years Used Date Smoking Tobacco: Former Cigarettes Quit : 04/07/1987 Smokeless Tobacco: Never Alcohol Habits Answer Date Recorded How often do you have a drink containing 4 or more times a w [place] 07/30/2021 alcohol? How many drinks containing alcohol [...] you attend taoist or Patient refused 2021 temple services? 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 - 05/27/2019 10:35 AM CASTING AND PASTING SUPERVISOR INFORMATION DISCUSSED I notified the patient that she has appointment schedule in [place] on 06/29/2019 @ 0915 and she should be able to view this information on her portal. PLAN Information: not applicable Caller agreeable to plan of care: yes The following references were used: Patients list of upcoming appointments found in her EHR. ING AND PASTING SUPERVISOR Telephone Encounter - Jenise Healy - 05/27/2019 10:15 AM CST Reason for Communication: Patient is supposed to have a right knee surgery in [place], per Dr. Dykes. She has not heard from them, but I don't see an order in for this surgery. It is supposed to bescheduled for June 28, 2019 or right around that time, as she will be home from [place] then. Please call. Current Can Nursing/Provider leave a detailed message: Yes Did the patient refuse triage through Nurse line? (for symptom based concerns): NA Action Needed: Please call/schedule Name of Medication (if relevant): NA ING AND PASTING SUPERVISOR documented in this encounter Plan of Treatment Upcoming Encounters Date Type Specialty Care Team Description 02/02/2022 Immunization Family Medicine 02/12/2022 Office Visit Dermatology Lacy Dykes M.D. [address] [place], [place] [phone] (Wo rk) 02/22/2022 Office Visit Orthopedic Surgery Kimberlyn Alvarez APRN, C.N.P., D.N.P. [address] [place], [place] [phone] (Lisha rk) 03/12/2022 Diagnostic Otorhinolaryngology Blanka Carranza, C.N.P. [address] [place], [place] [phone] Aleena Hassan Au.D. [address] [place] [phone] documented as of this encounter Visit Diagnoses Not on filedocumented in this encounter Additional Health Concerns Assessment Noted Time PHQ-9 Depression Total Score: 2 04/22/2015 11:24 AM CS T documented as of this encounter
--- OUTSIDE RECORDS SUMMARY | 2022-01-31 09:37 | XMS_ITS | Encounter Summary ---
:1955 Author Organization [facility] Address [address] [place] [address] Care Team Providers Name Role Phone Unavailable Primary Care Provider Unavailable Reason for Visit Physical Therapy (Routine) - Closed Specialty Diagnoses / Procedures Referred By Contact Refer red To Contact Diagnoses Vertigo Benign Paroxysmal Positional Left Jennifer Carranza, C.N.P. [facility] Procedures PT Evaluate and treat [address] [place], [place] [address] Referral ID Status Reason Start Date Expiration Date Visits Requ ested Visits Authorized [id number] Closed 02/26/2019 02/26/2020 1 1 Encounter Details Date Type Department Care Team Description 02/26/2019 Comprehensive Visit Department of Blanka Carranza, C.N.P. [address] [place], [place] [phone] Vertigo Benign Rehabilitation Laura Solorzano, P.T. [address] [place] [phone] Paroxysmal Services in [address] [phone] Social History Tobacco Use Types Packs/Day Years Used Date Smoking Tobacco: Former Cigarettes Quit : 04/07/1987 Smokeless Tobacco: Never Alcohol Habits Answer Date Recorded How often do you have a drink containing 4 or more times a w [place] 07/30/2021 alcohol? How many drinks containing alcohol [...] you attend restorationism or Patient refused 2021 jewish services? Do [...] or slept in a half-way (including now)? 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 - 02/26/2019 2:30 PM CST Physical Therapy Outpatient Evaluation/Treatment SUBJECTIVE Patient's Name: Priscilla Fitzpatrick Referring Provider: Jose Ramon Quinn* Visit Diagnosis: 1. Vertigo Benign Paroxysmal Positional Left Reason for Referral: BPPV Onset Date: 02/26/19 Payor: [employer] / Plan: [employer]pie / Product Type: PPO / [place] Visit Count: 1 PERTINENT MEDICAL / SURGICAL HISTORY: Patient Active Problem List Diagnosis ??? Depression/Beckie/Bipolar NOS ??? Dysthymia ??? Pain Knee Right ??? Hypertension NOS ??? Hypothyroidism ??? Hyperlipidemia ??? Anterior Cruciate Ligament Reconstruction Status Post ??? Limitation Of Motion Finger Right ??? Follow Up Examination Postoperative Visit ??? Vertigo Benign Paroxysmal Positional Left Past Surgical History: Procedure Laterality Date ??? ABDOMINAL SURGERY ??? ARTHROSCOPY RECONSTRUCTION ACL KNEE - ALLOGRAFT Right 05/28/2017 Procedure: ARTHROSCOPY RECONSTRUCTION ANTERIOR CRUCIATE LIGAMENT KNEE - ALLOGRAFT, partial medial menisectomy; Surgeon: Cedric Sweeney M.D.; Location: [facility] OR ??? BLADDER SURGERY 03/23/2003 Sling [...] Skier's Thumb; Surgeon: Anibal Larkin M.D.; Location: [facility] OR ??? TONSILLECTOMY Priscilla Fitzpatrick is a 63 y.o. female who presents to outpatient physical therapy for evaluation. Her symptoms consist of: 1. BPPV Overall she reports her status is improving with medication. History of Present Illness:Woke up overnight with nausea/vomiting. Prior hx of positional vertigo that resolved on its own. Spent day vomitting. Symptom improvement with mecalizine and zofran Does report she saw chiropractor on Friday and wonders if that could be related. 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 Family/Caregiver Present: No Patient goals:resolution of vertigo, has [employer] tomorrow and flies to [place] on Friday OBJECTIVE REVIEW OF SYSTEMS Neurological ROS: positive for - dizziness PHYSICAL EXAM Pain: n/a Ortho Exam Outcome Measures: Patient has symptoms with all positional changes, was lying in bed all day with nausea/vomitting. Symptoms Description of Symptoms: spinning/vertigo, imbalance, other (Comment), nauseated, foggy, wobbly, woozy(heavyheaded) Duration of Symptoms: vomiting all day, spinning would calm if she was competely still Provoking Activities: rolling, looking up/down, supine to / from sit, head turning, bending forward,walking Complaint of Hearing Loss: No ROM Cervical ROM: Pain with AROM Positional Testing Javon Hallpike: Duration greater than 1 minute, Left, Nystagmus - torsional Impressions Vestibular Impression: Left BPPV Vestibular Suppression Medications: Yes(meclazine and zofran) Treatment BPPV Treatment: Left posterior canal cupulolithiasis Liberatory maneuver(x2) TREATMENT Treatment today consisted of: Canalith Repositioning: Performed x 2 for left posterior. Did perform headshake. Home Exercise Program/Education: Educated on PT POC, BPPV, issued handout on BPPV as well as Porter-DarFive9 exercise. Educated at risk of reoccurance/increased symptoms with flying. Assessment Clinical Impression: Ms. Fitzpatrick presents to physical therapy with signs and symptoms consistent with BPPV Impairments: nausea, vomiting, imbalance, dizziness Functional Deficits: decreased functional mobility, limited ambulation, in ability to drive. Rehab Potential: Ms. Fitzpatrick has Excellent potential [...] in 2 weeks PT Goal #1 Date: 03/12/19 PT Goal #2: patient will have no c/o nausea vomiting in 1 week PT Goal #2 Date: 03/05/19 Plan Ms. Fitzpatrick was educated regarding evaluative [...] Treatment Plan: Start of Plan of Care: 02/26/2019 Number of Visits: 3 visits PT Duration: 3 weeks PT Frequency: Monitor status Treatment interventions may include: Neuromuscular re-education, Self-care / Home management(canalith repositioning) Plan for next session: re-assess positional manuevers.Anticipate symptom resolution after 1 visit. Patient will call in the AM with a report of her symptoms. Time Spent with Patient PT Evaluation (min): 26 min Time Calculation Total Treatment Time (min): 26 min Laura Solorzano P.T. Department of Rehabilitation Services in [address] [phone] Dept: [phone] LY CHAIN PLANNER documented in this encounter Plan of Treatment Upcoming Encounters Date Type Specialty Care Team Description 02/02/2022 Immunization Family Medicine 02/12/2022 Office Visit Dermatology Lacy Dykes M.D. [address] [place], [place] [phone] (Wo rk) 02/22/2022 Office Visit Orthopedic Surgery Kimberlyn Alvarez APRN, C.N.P., D.N.P. [address] [place], [place] [phone] (Wo rk) 03/12/2022 Diagnostic Otorhinolaryngology Blanka Carranza, C.N.P. [address] [place] [address] Aleena Hassan Au.D. [address] [place] [phone] documented as of this encounter Visit Diagnoses Diagnosis Vertigo Benign Paroxysmal Positional Lef t documented in this encounter Additional Health Concerns Assessment Noted Time PHQ-9 Depression Total Score: 2 04/22/2015 11:24 AM CS T documented as of this encounter
--- OUTSIDE RECORDS SUMMARY | 2022-01-31 09:37 | XMS_ITS | Encounter Summary ---
:1955 Author Organization [facility] Address [address] [place] [address] Care Team Providers Name Role Phone Unavailable Primary Care Provider Unavailable Reason for Visit Occupational Therapy (Routine) - Canceled Specialty Diagnoses / Procedures Referred By Contact Refer red To Contact Diagnoses Limitation Of Motion Finger Right Anibal Larkin M.D. [facility] Procedures OT Ongoing Treatment [address] [place] [phone] Referral ID Status Reason Start Date Expiration Date Visits V isits Requested Authorized [id number] Canceled 04/14/2018 04/14/2019 12 12 Encounter Details Date Type Department Care Team Description 05/11/2018 Clinical Support Department of Anibal Larkin M.D. [address] [place] [phone] Limitation Of Rehabilitation Berna Solorzano O.T. [address] [place] [phone] Motion Finger Right Services in [address] [phone] Social History Tobacco Use Types Packs/Day Years Used Date Smoking Tobacco: Former Cigarettes Quit : 04/07/1987 Smokeless Tobacco: Never Alcohol Habits Answer Date Recorded How often do you have a drink containing 4 or more times a w [place] 07/30/2021 alcohol? How many drinks containing alcohol [...] or relatives? How often do you attend mu-ism or Patient refused 2021 confucianist services? Do you belong to any clubs or Yes 07/30/2021 organizations such as mu-ism groups, unions, fraternal or athletic groups, or [...] or slept in a penitentiary (including now)? 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 - 05/11/2018 8:00 AM CST Occupational Therapy Outpatient Treatment By co-signing this note, the provider certifies the therapy being provided to this patient is reasonable and necessary for the diagnosis or treatment of this patient. SUBJECTIVE Patient reports she is doing well. Patient's Name: Priscilla Fitzpatrick Referring Provider: Anibal Larkin M.D. Visit Diagnosis: 1. Limitation Of Motion Finger Right Reason for Referral: Right thumb ulnar collateral ligament 03/12/18 Onset Date: 03/12/18 Payor: [employer] / Plan: PST [employer] / Product Type: PPO / Epic Visit Count: 1 Patient comments: Patient reports her thumb is feeling good. She has been completing her exercises. OBJECTIVE Pain: Patient does not have pain. Ortho Exam Patient has a well healing incision on the right thumb. Patient has been weaning out of her splint with no difficulty. Patient has good movement for IP flexion/ ext, and slight tightness at the MP. TREATMENT Treatment today consisted of: Manual Therapy: Patient tolerated soft tissue mobilization over the incision. Patient has several bumps at the distal and proximal ends of her incision. Therapeutic Exercise: Patient tolerated thumb flexion, ABD, opposition, x 10 reps x 2 sets of 10. Patient also completed blocking at the IP and MP x 10 reps x 2 sets. Patient completed Theraputty exercises. Home Exercise Program/Education: Patient given yellow thera putty to complete gross grasp, 3 point pinch, and lateral pinch x 10 reps x 3 sets per day. Pt reports good compliance with their HEP. Assessment Clinical Impression: Ms. Fitzpatrick presents to occupational therapy with signs and symptoms consistent with UCL repair. Patient is appropriate for skilled OT in order to increase [place] in ADL activities. Functional Goals and Timeframes: Functional Goals and Timeframes: OT Goal #1: Patient will complete HEP as directed as well as scar massage 3 x per day to decrease scar adhesions and increase mobility of right thumb. OT Goal #1 Date: 06/12/18 OT Goal #2: Patient will increase strength and ROM of the right hand in order to complete all work activities with no decrease in productivity. OT Goal #2 Date: 06/12/18 OT Goal #3: Patient will increase R ROM and strength in order to complete all ADL activities with nodifficulty. OT Goal #3 Date: 06/12/18 Plan 1x per week for 4 weeks. Plan for next session: Therapeutic Exercise. Time Spent with Patient Manual Therapy (min): 10 min Therapeutic Exercise (min): 20 min Time Calculation Total Timed Units (min): 30 min Total Treatment Time (min): 30 min Berna Solorzano O.T. UCTION ASSEMBLER documented in this encounter Plan of Treatment Upcoming Encounters Date Type Specialty Care Team Description 02/02/2022 Immunization Family Medicine 02/12/2022 Office Visit Dermatology Lacy Dykes M.D. [address] [place], [place] [phone] (Wo rk) 02/22/2022 Office Visit Orthopedic Surgery Kimberlyn Alvarez APRN C.N.P., D.N.P. [address] [facility], [place] [phone] (Wo rk) 03/12/2022 Diagnostic Otorhinolaryngology Blanka Carranza C.N.PPhil [address] [place], [place] [phone] Aleena Hassan Au.D. [address] [place] [phone] documented as of this encounter Visit Diagnoses Diagnosis Limitation Of Motion Finger Right documented in this encounter Additional Health Concerns Assessment Noted Time PHQ-9 Depression Total Score: 2 04/22/2015 11:24 AM CS T documented as of this encounter
--- OUTSIDE RECORDS SUMMARY | 2022-01-31 09:37 | XMS_ITS | Encounter Summary ---
:1955 Author Organization [facility] Address [address] [place] [address] Care Team Providers Name Role Phone Unavailable Primary Care Provider Unavailable Encounter Details Date Type Department Care Team Description 01/18/2019 Hospital Encounter Department of Jennifer Carranza Mammogram Radiology in [place] [facility] [place], [place] [facility] [address] [place] [address] [address] [address] [place], [place] [phone] (Work) [phone] Social History Tobacco Use Types Packs/Day Years Used Date Smoking Tobacco: Former Cigarettes Quit : 04/07/1987 Smokeless Tobacco: Never Alcohol Habits Answer Date Recorded How often do you have a drink containing 4 or more times a w [place] 07/30/2021 alcohol? How many drinks containing alcohol [...] you attend evangelical or Patient refused 2021 denominational services? Do [...] slept in a senior care (including now)? 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 B.ANI/L.ACI/L.BERNICE/L.PLAN Take 1 capsule by 0 06/2012 /L.TASH (PROBIOTIC mouth daily. FORMULA ORAL) EPINEPHrine 0.3 mg/0.3 See instructions 0 016 [...] tablets by 0 04/07 tablet mouth daily. zolpidem (AMBIEN) 10 mg Take 0.5 tablets by 0 tablet mouth at bedtime. CINNAMON BARK (CINNAMON Take 1,000 mg by 0 201503/06/2021 ORAL) mouth daily. citalopram (CeleXA) 20 Take 0.5 tablets by 0 04/0703/06/2021 mg tablet mouth daily. oxyCODONE (ROXICODONE) 5 Take 1 tablet (5 mg 15 tablet 0 11/02/2019 mg immediate release total) by mouth every tabletIndications: Acute 4 (four) hours as Pain needed for severe pain or score 7-10 of 10 (pain not controlled with non narcotic modalities) Indication: Acute Pain. UNABLE TO FIND Tumeric raw herb 0 08/18/201502/07 daily documented as of this encounter Plan of Treatment Upcoming Encounters Date Type Specialty Care Team Description 02/02/2022 Immunization Family Medicine 02/12/2022 Office Visit Dermatology Lacy Dykes M.D. [address] [place], [place] [phone] (Wo rk) 02/22/2022 Office Visit Orthopedic Surgery Kimberlyn Alvarez, JOSE DANIEL, C.N.P., D.N.P. [address] [place], [place] [phone] (Wo rk) 03/12/2022 Diagnostic Otorhinolaryngology Blanka Carranza, C.N.P. [address] [place], [place] [phone] Aleena Hassan Au.D. [address] [place] [phone] documented as of this encounter Procedures Procedure Name Priority Date/Time Associated Comments Diagnosis BI BREAST RAD - Routine 01/18/2019 2:22 Screening Results for this SCREENING (most inpatients PM CDT Mammogram Breast procedu re are in BILATERAL and all Cancer the results outpatients) section. documented in this encounter Results BI Breast Screening Bilateral (01/18/2019 2:22 PM CDT) Anatomical Region Laterality Modality Breast, Breast Imaging RST LOS, Breast Imaging ARZ LOS, Steffany st Bilateral Mammography Imaging FLA LOS Specimen (Source) Anatomical Collection Method Collection Time Re ceived Time Location / / Volume Laterality 01/18/2019 2:26 PM CDT Impressions 01/18/2019 2:27 PM CDT Negative. RECOMMENDATION: ??Annual Screening Mammo gram ASSESSMENT: ??BI-RADS: 1: Negative. Narrative 01/18/2019 2:27 PM CDT EXAM: ??BI BREAST SCREENING BILATERAL Current study was evaluated with a Compu ter Aided Detection (CAD) system. INDICATION: ??Screening mammogram. COMPARISON: ??Prior exam(s) were availab le and reviewed for comparison. DENSITY: ??d. The breast(s) are extremel y dense, which lowers the sensitivity of mammography. FINDINGS: ??No mammographic findings of malignancy. Procedure Note Stephen Sheppard M.D. - 01/18/2019Forma tting of this note might be different from [...] Screening Mammogr am ASSESSMENT: BI-RADS: 1: Negative. Jennifer FARIAS BI PROCEDURES documented in this encounter Visit Diagnoses Diagnosis Screening Mammogram Breast Cancer documented in this encounter Additional Health Concerns Assessment Noted Time PHQ-9 Depression Total Score: 2 04/22/2015 11:24 AM CS T documented as of this encounter
--- OUTSIDE RECORDS SUMMARY | 2022-01-31 09:37 | XMS_ITS | Encounter Summary ---
:1955 Author Organization [facility] Address [address] [place] [address] Care Team Providers Name Role Phone Unavailable Primary Care Provider Unavailable Reason for Referral Outpatient (Routine) - Closed Specialty Diagnoses / Procedures Referred By Contact Refer red To Contact Diagnoses Nevus Atypical Lacy Dykes M.D. 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 How many drinks containing alcohol [...] you attend yazidi or Patient refused 2021 holiness services? Do you belong to any clubs or Yes 07/30/2021 organizations such as yazidi groups, unions, fraternal or athletic groups, or school groups? How often do you attend meetings of the More than 4 times year 07/30/2021 clubs or organizations you belong [...] place to sleep or slept in a detention (including now)? Education Answer Date Recorded What is the highest level of school Bachelor's degree (e.g., BA, AB, 03/10/2019 you have completed or the highest BS) degree you have received? 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 [address] [place], [place] [phone] (Wo rk) 02/22/2022 Office Visit Orthopedic Surgery Kimberlyn Alvarez, JOSE DANIEL, C.N.P., D.N.P. [address] [place] [phone] (Wo rk) 03/12/2022 Diagnostic Otorhinolaryngology Blanka Carranza C.NPhilPPhil [address] [place] [phone] Aleena Hassan Au.D. [address] [place] [phone] documented as of this encounter Results MCKAYLA Excision 1-2 sites (07/29/2019 10:00 AM CDT) Narrative Sunny Olivarez M.D. - 07/29/2019 10:00 AM CDT Michael Nugent M.D. ? 07/29/2019 11:51 AM PREOP INDICATION: REMOVAL. Date of Surgery: 07/29/2019 Surgeon: Dr. Olivarez Aviation Technician Aircraft: Dr. Nugent Location: [facility] ?? Bldg:GO ?? Floor: 16 ?? [facility] Visit Type: Outpatient PostOp Diagnosis: ??Severely atypical ne vus Anatomic Location: ??Right medial thigh Preoperative size: 0.9 x 0.5 cm with cir cumferential margins of 5 mm for a total excision diameter of 1.9 x 1.5 cm. Procedure: Excision with intermediate la yered closure Prior to the procedure, final verificati on of the patient identity and correct marked surgical site was perform ed. Procedural pause conducted to verify: co rrect patient identity, procedure to be performed and as applicable, corre ct side and site, correct patient position, and availability of implants, special equipment or special requirements. INFORMED CONSENT Discussed the risks, benefits, alternati ves, and the necessity of other members of the healthcare team participa ting in the procedure. ?? All questions answered and consent given. PATIENT EDUCATION Ready to learn, no apparent learning bar riers were identified; learning preferences include listening. ??Explain ed diagnosis and treatment plan; patient expressed understanding of the c ontent. Preoperative medications: ??None Anesthesia used was 1% lidocaine with 1: 200,000 epinephrine. ??The skin was prepped in a sterile fashion rohith Langley. ??The lesion was excised with five-mm clinically tumo r-free margins in a fusiform ??fashion through the skin and through the subcutaneous tissue. ??Hemostasis was obtained with e lectrocoagulation. Due to wound size, the wound edges were closed in an intermediate layered fashion with 3-0 Vicryl and 4-0 PDS subcutaneous sutures and 5-0 nylon skin sutures. ??Postoperat jamila length: ??7.4 cm. ?? Estimated blood loss: Minimal. ??Complic ations: None. ??Wound care: Routine. ??Specimen sent to Dermatopatho logy. ??Biopsy report is pending. Postoperative medications: ??None ?? Lacy Dykes M.D. DERM PROCEDURE ORDERABLES documented in this encounter Visit Diagnoses Diagnosis Nevus Atypical - Primary Nevus Atypical documented in this encounter Additional Health Concerns Assessment Noted Time PHQ-9 Depression Total Score: 2 04/22/2015 11:24 AM CS T documented as of this encounter
--- OUTSIDE RECORDS SUMMARY | 2022-01-31 09:37 | XMS_ITS | Encounter Summary ---
:1955 Author Organization [facility] Address [address] [place] [address] Care Team Providers Name Role Phone Unavailable Primary Care Provider Unavailable Encounter Details Date Type Department Care Team Description 05/04/2019 Procedure visit Department of Lacy Dykes Tumor Skin Uncertain Behavior (Primary Dx); Dermatology in Michelet Roach M.D. [place], [place] [address] [phone] Social History Tobacco Use Types Packs/Day Years Used Date Smoking Tobacco: Former Cigarettes Quit : 04/07/1987 Smokeless Tobacco: Never Alcohol Habits Answer Date Recorded How often do you have a drink containing 4 or more times a w [place] 07/30/2021 alcohol? How many drinks containing alcohol [...] attend roman catholic or Patient refused 2021 amish services? 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 - 05/04/2019 11:15 AM CST CHIEF COMPLAINT/REASON FOR VISIT Return for biopsy of right medial thigh HISTORY OF PRESENT ILLNESS Ms. Priscilla Fitzpatrick is a 63 y.o. female who returns for a 6-mm punch biopsy of the right medial thigh to rule out an atypical nevus. The patient denies a personal history of skin cancer or family history for melanoma. Her mother and father have had non-melanoma skin cancers. She uses sunscreen. The patient has no other concerns today. Allergies Allergen Reactions ??? Diphtheria,Pertussis,Tetanus,Polio Vacc Other (see comments) No reaction listed in Cerner ??? Hylan G-F 20 Other (see comments) Synvisc - No reaction listed in Cerner ??? Pollen Extracts Other (see comments) No reaction listed in Cerner ??? Wasp Venom Other (see comments) Hornet - No reaction listed in Cerner PAST MEDICAL HISTORY Negative for skin cancer FAMILY HISTORY 1. Non-melanoma skin cancers in mother and father 2. Negative for melanoma PHYSICAL EXAM General: Awake, alert, in no acute distress, and with appropriate affect. Skin: Examination of the right medial thigh reveals a 2.5 mm x 3 mm reddish- brown nevus with slight irregular pigmentation. IMPRESSION/REPORT/PLAN #1 Right medial thigh: Rule out atypical nevus We recommend a 6-mm punch biopsy of the right medial thigh. Photograph taken 03/15/19 with patient's verbal consent. We will correspond as to the results and if any further treatment is needed. PROCEDURAL PAUSE: Procedural pause conducted to verify: correct patient identity, procedure to be performed, and as applicable, correct side and site, correct patient position, and availability of implants, special equipment, or special requirements. PROCEDURE DETAILS: Punch biopsy We explained the potential diagnosis and recommended that we obtain a biopsy. The risks and benefitsof the procedure were discussed, and the patient consented to these procedures. The patient denies any allergies to local anesthetics. Using 1% lidocaine with epinephrine for local anesthesia, a 6-mm punch biopsy was obtained from the right medial thigh. Biopsy submitted to Dermatopathology. Biopsy site closed with a top layer of three 4-0 nylon skin sutures. The skin sutures need to be removed in 10-14 days. Dressing was applied, and wound care instructions were explained. Biopsy results and any further recommendations will be communicated to the patient by letter. Patient given pamphlet [id number]. Discussed the risks, benefits, alternatives, and the necessity of other members of the healthcare team participating in the procedure. All questions answered and consent given. PATIENT EDUCATION: Ready to learn. No apparent learning barriers were identified. Learning preferences include listening. Explained diagnosis and treatment plan; patient/guardian of patient expressed understanding of thecontent. By signing my name below, I, Phil Lyons, attest that this documentation has been prepared under thedirection and in the presence of Lacy Dykes M.D. Electronically Signed: tiana Cuenca. 05/04/2019. 11:24 AM DIRECTOR CALL CENTER SALES. ILacy M.D., personally performed the services described in this documentation. All medical record entries made by the scribe were at my direction and in my presence. I have reviewed the chart and discharge instructions (if applicable) and agree that the record reflects my personal performance and is accurate and complete. Lacy Dykes M.D. . 05/04/2019. 5:15 PM DIRECTOR CALL CENTER SALES. CTOR CALL CENTER SALES documented in this encounter Miscellaneous Notes Result Encounter Note - Lacy Dykes M.D. - 05/13/2019 3:21 PM CST I called patient and informed her that the nevus biopsied from her right distal medial thigh was read out as a junctional nevus with severe atypia in that although this is considered benign given the severe atypia it does require re- excision with 5 mm margins which will result in a much longer excision scar. I have placed an order to have this done in our Procedure Clinic at [facility]. Patient will be traveling until June 26 so I have requested that this be done as soon as possible after shereturns from her traveling on June 26. She was very appreciative of the phone call and all questions answered. CTOR CALL CENTER SALES documented in this encounter Plan of Treatment Upcoming Encounters Date Type Specialty Care Team Description 02/02/2022 Immunization Family Medicine 02/12/2022 Office Visit Dermatology Lacy Dykes M.D. [address] [place], [place] [phone] (Wo rk) 02/22/2022 Office Visit Orthopedic Surgery Kimberlyn Alvarez, JOSE DANIEL, C.N.P., D.N.P. [address] [place], [place] [phone] (Wo rk) 03/12/2022 Diagnostic Otorhinolaryngology Blanka Carranza, C.N.P. [address] [place] [address] Aleena Hassan Au.D. [address] [place] [phone] documented as of this encounter Procedures Procedure Name Priority Date/Time Associated Comments Diagnosis DERMATOPATHOLOGY CONSULT Routine 05/04/2019 11:28 Tumor Skin Results for this AM DIRECTOR CALL CENTER SALES Uncertain Behavior procedure are in the results section. documented in this encounter Results Dermatopathology Consult (05/04/2019 11:28 AM DIRECTOR CALL CENTER SALES) Component Value Ref Test Analysis Performed Pathologis t Range Method Time At Signature 05/11/2019 PDRM 10:52 AM DIRECTOR CALL CENTER SALES Report Joseph Welch 05/11/2019 PDRM electronically Sudarshan Rodriguez 10:52 AM signed by DIRECTOR CALL CENTER SALES Gross Received in formalin labeled with the patient's name, 05/11/2019 PDRM Description: medical record number, and right medial thigh is a 0 .6 cm 10:52 AM in average diameter pale shah skin punch biopsy, excised to DIRECTOR CALL CENTER SALES a depth of 0.3 cm. ??There is a 0.4 x 0.3 cm pale shah-steel pigmented lesion with irregular borders centrally located on the skin surface. ??Specimen is bisected and submitted entirely in cassette A1. Grossed by AV. Disclaimer This test was developed and its performance characteri stics 05/11/2019 PDR determined by [facility] in a manner consistent with CLIA 10:52 AM requirements. This test has not been cleared or approved by DIRECTOR CALL CENTER SALES the [place]. Food and Drug Administration. Interpetation FINAL DIAGNOSIS 05/11/2019 PDRM A. ??DermPath Consult Wet Tissue; Right medial thigh, Skin 10:52 AM punch biopsy: ??Lentiginous junctional nevus with severe DIRECTOR CALL CENTER SALES atypia, extending to within 1.1 mm of the nearest peripheral border COMMENT Melan A stain highlights the atypical melanocytic proliferation. ??Multiple tissue levels examined. ??Complete surgical re-excision with appropriate margins is recommended. Specimen Anatomical Collection Method Collection Time Receive d Time (Source) Location / / Volume Laterality Tissue 05/04/2019 11:28 05/05/2019 AM DIRECTOR CALL CENTER SALES 11:11 AM DIRECTOR CALL CENTER SALES Narrative This result has an attachment that is no t available. Lacy Dykes M.D. LAB PATH DERM ORDERABLES Performing Organization Address City/State/ZIP Code Phon e Number [facility] - [address] [place], [place] [address] [place] [address] [facility] [address] documented in this encounter Visit Diagnoses Diagnosis Tumor Skin Uncertain Behavior - Primary Nevi Multiple documented in this encounter Administered Medications Inactive Administered Medications - up to 3 most recent administrations Medication Order MAR Action Action Date Dose Rate Site lidocaine-EPINEPHrine 1 %-1:100,000 Given 05/04/2019 11:35 AM CS T 3 mL injection 3 mL (XYLOCAINE W/EPI) 3 mL, infiltration, Once, On Fri05/04/19 at 1130, For 1 dose documented in this encounter Additional Health Concerns Assessment Noted Time PHQ-9 Depression Total Score: 2 04/22/2015 11:24 AM CS T documented as of this encounter
--- OUTSIDE RECORDS SUMMARY | 2022-01-31 09:37 | XMS_ITS | Encounter Summary ---
:1955 Author Organization [facility] Address [address] [place] [address] Care Team Providers Name Role Phone Unavailable Primary Care Provider Unavailable Reason for Referral Outpatient (Routine) - Closed Specialty Diagnoses / Procedures Referred By Contact Refer red To Contact Diagnoses Pain Knee Bilateral Kimberlyn Alvarez APRN, [facility] [place] [facility] Procedures owe-schi-yxrremjs-elbow arthrocentesis: L knee joint C.N.P., D.N.P. [address] [place] [phone] Referral ID Status Reason Start Date Expiration Date Visits Requ ested Visits Authorized [id number] Closed 02/09/2019 02/09/2020 1 1 utpatient (Routine) - Closed Specialty Diagnoses / Procedures Referred By Contact Refer red To Contact Diagnoses Pain Knee Bilateral Kimberlyn Alvarez APRN, [facility] [place] [facility] Procedures pfq-wwqn-ihsaobrj-elbow arthrocentesis: R knee joint C.N.P., D.N.P. [address] [place] [phone] Referral ID Status Reason Start Date Expiration Date Visits Requ ested Visits Authorized [id number] Closed 02/09/2019 02/09/2020 1 1 LOCK MACHINE OPERATOR Reason for Visit Reason Comments Pain 2nd bilateral knee injection Pain Outpatient (Routine) - Closed Specialty Diagnoses / Procedures Referred By Contact Refer red To Contact Orthopedic Surgery Cedric Sweeney M .D. [address] [phone] Referral ID Status Reason Start Date Expiration Date Visits Requ ested Visits Authorized [id number] Closed 02/02/2019 02/02/2020 1 1 Encounter Details Date Type Department Care Team Description 02/09/2019 Office Visit Department of Kimberlyn Alvarez, Pain Knee B ilateral Orthopedic Surgery in [place], (Prim radha Dx) Michelet Wagoner D.N.P. [address] [phone] Social History Tobacco Use Types Packs/Day Years Used Date Smoking Tobacco: Former Cigarettes Quit : 04/07/1987 Smokeless Tobacco: Never Alcohol Habits Answer Date Recorded How often do you have a drink containing 4 or more times a w [place] 07/30/2021 alcohol? How many drinks containing [...] or relatives? How often do you attend nondenominational or Patient refused 2021 protestant services? Do you belong to any clubs or Yes 07/30/2021 organizations such as nondenominational groups, unions, fraternal or athletic groups, or [...] slept in a nursing home (including now)? 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 - 02/09/2019 8:30 AM CST Priscilla Fitzpatrick is a pleasant 63 y.o. female who has known significant osteoarthritis of her bilateral knee. She continues to have pain most noted with activity and is here today to discuss options. She has tried conservative therapy as well as non conservative therapy including jtfw-gnb-igjgacx anal gesics which includes NSAIDs, activity modification, ice, physical therapy with continued home exercises, and cortisone injection without any significant improvement. ?? Physical exam in general patient appears nondistressed. bilateral knee has no signs or symptoms of an infection. There is 0-120?? flexion. ?? Impression and plan- Priscilla Fitzpatrick is a very pleasant 63 y.o. who has known degenerative arthritis of the knee. It is impairing on activities of daily living. She has tried conservative measures without improvement. She would like to proceed with her 2nd of 3 with viscosupplementation injections. After brief discussion on benefits and as well as risks, consent form was obtained, per sterile technique using 1% lidocaine and the lateral approach 1 standard dose of Euflexa was injected into the bilateral knee without difficulty. Patient tolerated the procedure well. Will plan to see back in the following week for remainder of injections. Questions were answered LOCK MACHINE OPERATOR documented in this encounter Procedure Notes Loreta Crowell R.N. - 02/09/2019 8:30 AM CSTAssociated Order(s): yyw-wwuf-lfgrteta-elbow arthrocentesis: R knee joint; ndh-ajdg-rdsldxxo-elbow ar throcentesis: L knee joint Post-Procedure Diagnose(s): Pain Knee Bilateral Knee site- R knee joint Date/Time: 02/09/2019 8:44 AM Performed by: Kimberlyn Alvarez APRN, C.N.P., [...] provider Knee site- L knee joint Date/Time: 02/09/2019 8:45 AM Performed by: Kimberlyn Alvarez APRN, C.N.P., D.N.P. Authorized by: Kimberlyn Alvarez APRN, C.N.P., D.N.P. PROCEDURE DETAILS Procedure Location knee Knee site: L knee joint Procedural approach: anterolateral Needle gauge: 22 G [...] dressing care and follow-up with ordering provider LOCK MACHINE OPERATOR documented in this encounter Plan of Treatment Upcoming Encounters Date Type Specialty Care Team Description 02/02/2022 Immunization Family Medicine 02/12/2022 Office Visit Dermatology Lacy Dykes M.D. [address] [place], [place] [phone] (Wo rk) 02/22/2022 Office Visit Orthopedic Surgery Kimberlyn Alvarez APRN, C.N.P., D.N.P. [address], [place] [phone] (Wo rk) 03/12/2022 Diagnostic Otorhinolaryngology Blanka Carranza C.N.P. [address] [place], [place] [phone] Aleena Hassan Au.D. [address] [place] [address] documented as of this encounter Procedures Procedure Name Priority Date/Time Associated Diagnosis Comme nts HI ARTHCS ASP/INJ Routine 02/09/2019 8:30 AM Pain Knee Bilater al Results for this MJR JT WO US FLAT LOCK MACHINE OPERATOR procedure are i n the results section. HI ARTHCS ASP/INJ Routine 02/09/2019 8:30 AM Pain Knee Bilater al Results for this MJR JT WO US FLAT LOCK MACHINE OPERATOR procedure are i n the results section. documented in this encounter Results HI ARTHCS ASP/INJ MJR JT WO US (02/09/2019 8:30 AM FLAT LOCK MACHINE OPERATOR) Narrative MMODAL - 02/09/2019 8:30 AM FLAT LOCK MACHINE OPERATOR Loreta Crowell R.N. ? 02/10/2019 ??5:01 PM Knee site- L knee joint Date/Time: 02/09/2019 8:45 AM Performed by: Kimberlyn Alvarez APRN, C.N. P., D.N.P. Authorized by: Kimberlyn Alvarez APRN, C.N .P., D.N.P. PROCEDURE DETAILS Procedure Location knee Knee site: L knee joint Procedural approach: anterolateral Needle gauge: 22 G [...] Code Phon e Number MMODAL MMODAL NA HI ARTHCS ASP/INJ MJR JT WO US (02/09/2019 8:30 AM FLAT LOCK MACHINE OPERATOR) Narrative MMODAL - 02/09/2019 8:30 AM FLAT LOCK MACHINE OPERATOR Loreta Crowell R.N. ? 02/10/2019 ??5:01 PM Knee site- R knee joint Date/Time: 02/09/2019 8:44 AM Performed by: Kimberlyn Alvarez APRN, C.N. [...] 10 mg/mL (1 %) injection 3 Given 02/09/2019 8:44 AM CS T 3 mL mL (XYLOCAINE) 3 mL, infiltration, One-Time Injection, Starting on Fri02/09/19 at 0844, For 1 dose lidocaine 10 mg/mL (1 %) injection 3 mL Given 02/09/2019 8:45 AM FLAT LOCK MACHINE OPERATOR 3 mL (XYLOCAINE) 3 mL, infiltration, One-Time Injection, Starting on Fri02/09/19 at 0845, For 1 dose sodium hyaluronate (viscosup) injection 20 mg Given 8:44 AM FLAT LOCK MACHINE OPERATOR 20 mg (EUFLEXXA) 20 mg, intra-articular, One-Time Injection, Starting on Fri02/09/19 at 0844, For 1 dose sodium hyaluronate (viscosup) injection 20 mg Given 8:45 AM FLAT LOCK MACHINE OPERATOR 20 mg (EUFLEXXA) 20 mg, intra-articular, One-Time Injection, Starting on Fri02/09/19 at 0845, For 1 dose documented in this encounter Additional Health Concerns Assessment Noted Time PHQ-9 Depression Total Score: 2 04/22/2015 11:24 AM CS T documented as of this encounter
--- OUTSIDE RECORDS SUMMARY | 2022-01-31 09:37 | XMS_ITS | Encounter Summary ---
:1955 Author Organization [facility] Address [address] [place] [address] Care Team Providers Name Role Phone Unavailable Primary Care Provider Unavailable Reason for Visit Reason Comments Biopsy Encounter Details Date Type Department Care Team Description 04/12/2019 Procedure visit Department of Lacy Dykes [facility] Dermatology in Michelet Roach M.D. (Primary Dx) [place], [place] [address] [phone] Social History Tobacco Use Types Packs/Day Years Used Date Smoking Tobacco: Former Cigarettes Quit : 04/07/1987 Smokeless Tobacco: Never Alcohol Habits Answer Date Recorded How often do you have a drink containing 4 or more times a w [place] 07/30/2021 alcohol? How many drinks containing alcohol [...] you attend amish or Patient refused 2021 jain services? Do you belong to any clubs or Yes 07/30/2021 organizations such as amish groups, unions, fraternal or athletic groups, or [...] place to sleep or slept in a long-term (including now)? Education Answer Date Recorded What is the highest level of school Bachelor's degree (e.g., BA, AB, 03/10/2019 you have completed or the highest BS) degree you have received? 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 - 04/12/2019 10:15 AM CST CHIEF COMPLAINT/REASON FOR VISIT Return [...] medial thigh reveals a 2.5 mm x 3.5 mm reddish- brown nevus with slight irregular pigmentation. IMPRESSION/REPORT/PLAN #1 Right medial thigh: Rule out atypical nevus We recommend a 6-mm punch biopsy of the right medial thigh. Photograph taken 03/15/19 with patient's verbal consent. The patient defers the procedure today, as she goes skiing during the winter. Plan for a return visit on 05/04/19 to get this done PATIENT EDUCATION: Ready to learn. No apparent learning barriers were identified. Learning preferences include listening. Explained diagnosis and treatment plan; patient/guardian of patient expressed understanding of thecontent. By signing my name below, I, Phil Lyons, attest that this documentation has been prepared under thedirection and in the presence of Lacy Dykes M.D. Electronically Signed: tiana Cuenca. 04/12/2019. 10:18 AM STUDENT EDUCATION SPECIALIST. I, Lacy Dykes M.D., personally performed the services described in this documentation. All medical record entries made by the scribe were at my direction and in my presence. I have reviewed the chart and discharge instructions (if applicable) and agree that the record reflects my personal performance and is accurate and complete. Lacy Dykes M.D. . 04/12/2019. 10:44 AM STUDENT EDUCATION SPECIALIST. ENT EDUCATION SPECIALIST documented in this encounter Plan of Treatment Upcoming Encounters Date Type Specialty Care Team Description 02/02/2022 Immunization Family Medicine 02/12/2022 Office Visit Dermatology Lacy Dykes M.D. [address] [place], [place] [phone] (Lisha mccann) 02/22/2022 Office Visit Orthopedic Surgery Kimberlyn Alvarez APRN, C.N.P., D.N.P. [address] [place], [place] [phone] (Lisha mccann) 03/12/2022 Diagnostic Otorhinolaryngology Blanka Carranza, C.N.P. [address] [place] [address] Aleena Hassan Au.D. [address] [place] [address] Scheduled Orders Name Type Priority Associated Diagnoses Order S chedule Dermatology misc minor Dermatology Routine Nevi Multiple Expe cted: 05/04/2019 procedure (Approximate), Expires: 2022 documented as of this encounter Visit Diagnoses Diagnosis Nevi Multiple - Primary documented in this encounter Additional Health Concerns Assessment Noted Time PHQ-9 Depression Total Score: 2 04/22/2015 11:24 AM CS T documented as of this encounter
--- OUTSIDE RECORDS SUMMARY | 2022-01-31 09:37 | XMS_ITS | Encounter Summary ---
:1955 Author Organization [facility] Address [address] [place] [address] Care Team Providers Name Role Phone Unavailable Primary Care Provider Unavailable Encounter Details Date Type Department Care Team Description 04/02/2018 Orders Only Department of Ella Solorzano Follow Up Ex amination Orthopedic Surgery in M, JOSE DANIEL, C .N.P. Postoperative Visit [place], [place] [address] [facility] (Primary Dx) [address] [place] [phone] Social History Tobacco Use Types Packs/Day Years Used Date Smoking Tobacco: Former Cigarettes Quit : 04/07/1987 Smokeless Tobacco: Never Alcohol Habits Answer Date Recorded How often do you have a drink containing 4 or more times a w [place] 07/30/2021 alcohol? How many drinks containing alcohol [...] you attend mu-ism or Patient refused 2021 orthodoxy services? Do [...] or slept in a halfway (including now)? 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 [address] [place], [place] [phone] (Wo rk) 02/22/2022 Office Visit Orthopedic Surgery Kimberlyn Alvarez, JOSE DANIEL, C.N.P., D.N.P. [address] [place], [place] [phone] (Wo rk) 03/12/2022 Diagnostic Otorhinolaryngology Blanka Carranza, C.N.P. [address] [place] [address] Aleena Hassan Au.D. [address] [place] [phone] Scheduled Orders Name Type Priority Associated Diagnoses Order S chedule Casting return visit Procedures Routine Follow Up Examinatio n Expected: 04/14/2018 Postoperative Visit (Approxi mate), Expires: 2020 documented as of this encounter Visit Diagnoses Diagnosis Follow Up Examination Postoperative Visi t - Primary documented in this encounter Additional Health Concerns Assessment Noted Time PHQ-9 Depression Total Score: 2 04/22/2015 11:24 AM CS T documented as of this encounter
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
--- OUTSIDE RECORDS SUMMARY | 2022-01-31 09:37 | XMS_ITS | Encounter Summary ---
:1955 Author Organization [facility] Address [address] [place] [address] Care Team Providers Name Role Phone Unavailable Primary Care Provider Unavailable Reason for Referral Outpatient (Routine) - Closed Specialty Diagnoses / Procedures Referred By Contact Refer red To Contact Diagnoses Screening Osteoporosis Jennifer Carranza [facility] [place] [facility] Procedures BMD Bone Density Spine Hips C.N.P. [address] [place], [place] [address] Referral ID Status Reason Start Date Expiration Date Visits Requ ested Visits Authorized [id number] Closed 12/08/2018 12/08/2019 1 1 Reason for Visit Outpatient (Routine) - Closed Specialty Diagnoses / Procedures Referred By Contact Refer red To Contact Diagnoses Screening Osteoporosis Jennifer Carranza [facility] [place] [facility] Procedures BMD Bone Density Spine Hips C.N.P. [address] [place], [place] [address] Referral ID Status Reason Start Date Expiration Date Visits Requ ested Visits Authorized [id number] Closed 12/08/2018 12/08/2019 1 1 Encounter Details Date Type Department Care Team Description 01/18/2019 Hospital Encounter Department of Jennifer Carranza [place] [address] [place] [address] [place] [address] [address] [place], [place] [phone] (Work) [phone] Social History Tobacco Use Types Packs/Day Years Used Date Smoking Tobacco: Former Cigarettes Quit : 04/07/1987 Smokeless Tobacco: Never Alcohol Habits Answer Date Recorded How often do you have a drink containing 4 or more times a w [place] 07/30/2021 alcohol? How many drinks containing alcohol [...] you attend bahai or Patient refused 2021 advent services? Do [...] place to sleep or slept in a chcf (including now)? 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 B.ANI/L.ACI/L.BERNICE/L.PLAN Take 1 capsule by 0 04/0 06/2012 /.TASH (PROBIOTIC mouth daily. FORMULA ORAL) EPINEPHrine 0.3 [...] Office Visit Dermatology Lacy Dykes M.D. [address] [place], [place] [phone] (Wo rk) 02/22/2022 Office Visit Orthopedic Surgery Kimberlyn Alvarez, JOSE DANIEL, C.N.P., D.N.P. [address] [place], [place] [phone] (Wo rk) 03/12/2022 Diagnostic Otorhinolaryngology Blanka Carranza C.NPhilPPhil [address] [place] [id number] Aleena Hassan Au.D. [address] [place] [address] documented as of this encounter Procedures Procedure Name Priority Date/Time Associated Comments Diagnosis BMD BONE DENSITY RAD - Routine 01/18/2019 2:48 Screening Results for this SPINE HIPS (most inpatients PM CDT Osteoporosis procedure a re in and all the results outpatients) section. documented in this encounter Results BMD Bone Density Spine Hips (01/18/2019 2:48 PM CDT) Anatomical Region Laterality Modality Hip, Lumbar Spine, Nuclear Medicine RST LOS, N/A Radiographic Imaging Musculoskeletal ARZ LOS, Muskuloskeletal FLA LOS Specimen (Source) Anatomical Collection Method Collection Time Re ceived Time Location / / Volume Laterality 01/18/2019 3:25 PM CDT Impressions 01/18/2019 3:27 PM CDT Low bone density (osteopenia). Narrative 01/18/2019 3:27 PM CDT EXAM: BMD BONE DENSITY SPINE HIPS COMPARISON: 05/02/2016 Assembling Motor Builder/Model: GE FINDINGS: ?? LUMBAR SPINE L1-L3 included unless otherwise indicate d. Lumbar BMD: 0.914 gm/cm2 T-score: -2.2 HIP(S) Lowest femoral BMD: 0.718 gm/cm 2 Lowest T-score: -2.3 BMD % change: -3.3% FRAX 10 year probability of major osteop orotic fracture is 11.7 % FRAX 10 year probability of hip fracture ??2.0 % FRAX scores: Not clinically validated fo r patients with history of therapy with bisphosphonates in the past two years, c alcitonin in the last year, PTH in the last year, Denosumab in the last year. ? ?Calcium and vitamin D do NOT constitute treatment' in this context. ??All treat ment decisions require clinical judgement and consideration of individual patient factors which may not be captured in the FRAX model and the risk of fracture may be over- or under-estimated by FRAX. Treatment recommended for: Patients with hip or vertebral fracture (clinical or morphometric). Patients with osteoporosis at the spine and/or hip as defined by T-score <= -2.5. Postmenopausal women or men age 50 and o lder with low bone mass (T-score -1 to -2.5, osteopenia) at the femoral neck, t otal hip, or spine and 10 year hip fracture probability >3% or a 10 year al l major osteoporosis related fracture probability of >20% based on the [place] ad apted WHO absolute risk model. Exclude secondary causes of low bone den sity in the appropriate clinical setting. Follow-up exams should be performed at n o sooner than two-year intervals. Direct comparison can only be performed on exams performed at the same facility. World Health Organization T-score criter ia: 0 to -1.0 ?? Normal range < -1.0 to > -2.5 ?? Low bone density (os teopenia) -2.5 or less ?? Osteoporosis Procedure Note Stephen Sheppard M.D. - 01/18/2019Forma tting of this note might be different from the original. EXAM: BMD BONE DENSITY SPINE HIPS COMPARISON: 05/02/2016 Assembling Motor Builder/Model: [employer] FINDINGS: LUMBAR SPINE L1-L3 included unless otherwise indicate d. Lumbar BMD: 0.914 gm/cm2 T-score: -2.2 HIP(S) Lowest femoral BMD: 0.718 gm/cm 2 Lowest T-score: -2.3 BMD % change: -3.3% FRAX 10 year probability of major osteop orotic fracture is 11.7 % FRAX 10 year probability of hip fracture 2.0 % FRAX scores: Not clinically validated fo r patients with history of therapy with bisphosphonates in the past two years, c alcitonin in the last year, PTH in the last year, Denosumab in the last year. C alcium and vitamin D do NOT constitute treatment' in this context. All treatme nt decisions require clinical judgement and consideration of individual patient factors which may not be captured in the FRAX model and the risk of fracture may be over- or under-estimated by FRAX. Treatment recommended for: Patients with hip or vertebral fracture (clinical or morphometric). Patients with osteoporosis at the spine and/or hip as defined by T-score <= -2.5. Postmenopausal women or men age 50 and o lder with low bone mass (T-score -1 to -2.5, osteopenia) at the femoral neck, t otal hip, or spine and 10 year hip fracture probability >3% or a 10 year al l major osteoporosis related fracture probability of >20% based on the [place] ad apted WHO absolute risk model. Exclude secondary causes of low bone den sity in the appropriate clinical setting. Follow-up exams should be performed at n o sooner than two-year intervals. Direct comparison can only be performed on exams performed at the same facility. World Health Organization T-score criter ia: 0 to -1.0 Normal range < -1.0 to > -2.5 Low bone density (osteo penia) -2.5 or less Osteoporosis IMPRESSION: Low bone density (osteopenia). Jennifer FARIAS DXA PROCEDURES documented in this encounter Visit Diagnoses Diagnosis Screening Osteoporosis documented in this encounter Additional Health Concerns Assessment Noted Time PHQ-9 Depression Total Score: 2 04/22/2015 11:24 AM CS T documented as of this encounter
--- OUTSIDE RECORDS SUMMARY | 2022-01-31 09:37 | XMS_ITS | Encounter Summary ---
:1955 Author Organization [facility] Address [address] [place] [address] Care Team Providers Name Role Phone Unavailable Primary Care Provider Unavailable Reason for Referral Outpatient (Routine) - Closed Specialty Diagnoses / Procedures Referred By Contact Refer red To Contact Orthopedic Surgery Anibal Larkin M .D. [facility] [address] [place] [phone] Referral ID Status Reason Start Date Expiration Date Visits Requ ested Visits Authorized [id number] Closed 04/14/2018 04/14/2019 1 1 Scheduling Instructions 6-8 wks hysical Therapy (Routine) - Closed Specialty Diagnoses / Procedures Referred By Contact Refer red To Contact Diagnoses Follow Up Examination Postoperative Visit Anibal Larkin M.D. 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 [address] [place] [address] Follow Up Examination Orthopedic Surgery Anibal aLrkin M.D. [address] [place] [phone] Postoperative Visit in [place], [place] [address] [place] [phone] Social History Tobacco Use Types Packs/Day Years Used Date Smoking Tobacco: Former Cigarettes Quit : 04/07/1987 Smokeless Tobacco: Never Alcohol Habits Answer Date Recorded How often do you have a drink containing 4 or more times a w [place] 07/30/2021 alcohol? How many drinks containing alcohol [...] or relatives? How often do you attend baptist or Patient refused 2021 pentecostal services? Do you belong to any clubs or Yes 07/30/2021 organizations such as baptist groups, unions, fraternal or athletic groups, or [...] a [place] [facility] (including now)? 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 B.ANI/L.ACI/L.BERNICE/L.PLAN Take 1 capsule by 0 /06/2012 /.TASH (PROBIOTIC mouth daily. FORMULA ORAL) EPINEPHrine [...] 08/18/201502/07 daily documented as of this encounter Procedure Notes Anibal Larkin M.D. - 04/14/2018 8:25 AM CST Preoperative Diagnosis: Status post Repair Collateral Ligament Ulnar, Skier's Thumb - Right on 03/12/2018 Preoperative Indication: Continuing care. Surgeon: Anibal Larkin MD Procedure: 1. Cast removal 2. Wound examination 3. Splint reapplication and initiation hand therapy Plan: Patient returned to the cast room post-operative above procedure. The cast was removed and the woundwas examined. The wound looks excellent . Sutures were to dissolvable. 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 She is doing quite well 5 weeks out and is stable. Nox-rays were obtained today will go transition to a hand therapy splint and see her back in 5-6 weeks. ODUCTION TECHNICIAN documented in this encounter Plan of Treatment Upcoming Encounters Date Type Specialty Care Team Description 02/02/2022 Immunization Family Medicine 02/12/2022 Office Visit Dermatology Lacy Dykes M.D. [address] [place], [place] [phone] (Lisha mccann) 02/22/2022 Office Visit Orthopedic Surgery Kimberlyn Alvarez APRN, C.N.P., D.N.P. [address] [place], [place] [phone] (Lisha mccann) 03/12/2022 Diagnostic Otorhinolaryngology Blanka Carranza, C.N.P. [address] [place] [address] Aleena Hassan Au.D. [address] [place] [address] Scheduled Orders Name Type Priority Associated Diagnoses Order S chedule Casting return Procedures Routine Follow Up Examination Once for 1 Occurrences visit Postoperative Visit starting 04/14/2018 until 9 Scheduled Referrals Name Type Priority Associated Order Schedule Diagnoses Orthopedic Surgery Outpatient Referral Routine Ex pected: office visit 05/15/2018 (clinic) (Approximate), Expires: 04/14/2021 documented as of this encounter Visit Diagnoses Diagnosis Follow Up Examination Postoperative Visi t documented in this encounter Additional Health Concerns Assessment Noted Time PHQ-9 Depression Total Score: 2 04/22/2015 11:24 AM CS T documented as of this encounter
--- OUTSIDE RECORDS SUMMARY | 2022-01-31 09:37 | XMS_ITS | Encounter Summary ---
:1955 Author Organization [facility] Address [address] [place] [address] Care Team Providers Name Role Phone Unavailable Primary Care Provider Unavailable Reason for Visit Outpatient (Routine) - Closed Specialty Diagnoses / Procedures Referred By Contact Refer red To Contact Orthopedic Surgery Anibal Larkin M .D. [facility] [address] [place] [address] Referral ID Status Reason Start Date Expiration Date Visits Requ ested Visits Authorized [id number] Closed 04/14/2018 04/14/2019 1 1 Encounter Details Date Type Department Care Team Description 05/22/2018 Office Visit Department of Anibal Larkin [employer] on Of Motion Orthopedic Surgery in [place] Right (Primary [place], [place] [address] [facility]) [address] [place] [phone] [phone] Social History Tobacco Use Types Packs/Day Years Used Date Smoking Tobacco: Former Cigarettes Quit : 04/07/1987 Smokeless Tobacco: Never Alcohol Habits Answer Date Recorded How often do you have a drink containing 4 or more times a w enterprise 07/30/2021 alcohol? How many drinks containing alcohol [...] or relatives? How often do you attend episcopalian or Patient refused 2021 bahai services? Do you belong to any clubs or Yes 07/30/2021 organizations such as episcopalian groups, unions, fraternal or athletic groups, or [...] or slept in a custodial (including now)? 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 - 05/22/2018 10:15 AM CST S. Mrs. Fitzpatrick returns now approximately 3 months status post right thumb ulnar collateral ligament repair. She is doing great, he is primarily out of her splint but wears it for activities like weightlifting and shoveling snow, which has been rather frequent of late. She is hoping to return to skiing in June. O: Going from right to left her stadium attendant strength is 18/6, causey pinch strength is 6/6.5, opposition pinchstrength is 4.5/6. She has no numbness and tingling and has excellent capillary refill. She does have some mild swelling still over the thumb MP joint. Her scar is very well healed and she has been doing scar massage. A/P: Patient was seen with Dr. larkin who is agree with the following plan. She is released to do all activities as tolerated. She may return to skiing in June. She will follow up with us on an as-needed basis. All of her questions were answered today. L FLOW MACHINE OPERATOR documented in this encounter Plan of Treatment Upcoming Encounters Date Type Specialty Care Team Description 02/02/2022 Immunization Family Medicine 02/12/2022 Office Visit Dermatology Lacy Dykes M.D. [address] [place], [place] [phone] (Lisha rk) 02/22/2022 Office Visit Orthopedic Surgery Kimberlyn Alvarez APRN, C.N.P., D.N.P. [address] [place], [place] [phone] ([facility]) 03/12/2022 Diagnostic Otorhinolaryngology Blanka Carranza, C.N.P. [address] [place], [place] [id number] Aleena Hassan Au.D. [address] [place] [address] documented as of this encounter Visit Diagnoses Diagnosis Limitation Of Motion Finger Right - Prim radha documented in this encounter Additional Health Concerns Assessment Noted Time PHQ-9 Depression Total Score: 2 04/22/2015 11:24 AM CS T documented as of this encounter
--- OUTSIDE RECORDS SUMMARY | 2022-01-31 09:37 | XMS_ITS | Encounter Summary ---
:1955 Author Organization [facility] Address [address] [place] [address] Care Team Providers Name Role Phone Unavailable Primary Care Provider Unavailable Reason for Referral Physical Therapy (Routine) - Closed Specialty Diagnoses / Procedures Referred By Contact Refer red To Contact Diagnoses Vertigo Benign Paroxysmal Positional Left Jennifer Carranza, C.N.P. 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 Paroxysmal Positional in [place] [address] Left (Pr imary Dx) [address] [address] [phone] Social History Tobacco Use Types Packs/Day Years Used Date Smoking Tobacco: Former Cigarettes Quit : 04/07/1987 Smokeless Tobacco: Never Alcohol Habits Answer Date Recorded How often do you have a drink containing 4 or more times a w [place] 07/30/2021 alcohol? How many drinks containing alcohol [...] you attend worship or Patient refused 2021 mu-ism services? Do you belong to any clubs [...] or slept in a intermediate (including now)? 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 [address] [place] [phone] (Wo rk) 02/22/2022 Office Visit Orthopedic Surgery Kimberlyn Alvarez APRN, C.N.P., D.N.P. [address] [place], [place] [phone] (Wo rk) 03/12/2022 Diagnostic Otorhinolaryngology Blanka Carranza C.N.P. [address] [place] [address] Aleena Hassan Au.D. [address] [place] [address] documented as of this encounter Visit Diagnoses Diagnosis Vertigo Benign Paroxysmal Positional Lef t - Primary documented in this encounter Additional Health Concerns Assessment Noted Time PHQ-9 Depression Total Score: 2 04/22/2015 11:24 AM CS T documented as of this encounter
--- OUTSIDE RECORDS SUMMARY | 2022-01-31 09:37 | XMS_ITS | Encounter Summary ---
:1955 Author Organization [facility] Address [address] [place] [address] Care Team Providers Name Role Phone Unavailable Primary Care Provider Unavailable Reason for Referral Outpatient (Routine) - Closed Specialty Diagnoses / Procedures Referred By Contact Refer red To Contact Diagnoses Pain Knee Bilateral Kimberlyn Alvarez APRN, [facility] [place] [facility] Procedures tgz-gaai-tkjpbpbc-elbow arthrocentesis: R knee joint C.N.P., D.N.P. [address] [place] [phone] Referral ID Status Reason Start Date Expiration Date Visits Requ ested Visits Authorized [id number] Closed 02/15/2019 02/15/2020 1 1 utpatient (Routine) - Closed Specialty Diagnoses / Procedures Referred By Contact Refer red To Contact Diagnoses Pain Knee Bilateral Kimberlyn Alvarez APRN, [facility] [place] [facility] Procedures nhg-wgfl-xuigvjkc-elbow arthrocentesis: L knee joint C.N.P., D.N.P. [address] [place] [phone] Referral ID Status Reason Start Date Expiration Date Visits Requ ested Visits Authorized [id number] Closed 02/15/2019 02/15/2020 1 1 SENIOR DEVELOPER Reason for Visit Reason Comments Pain Pain Outpatient (Routine) - Closed Specialty Diagnoses / Procedures Referred By Contact Refer red To Contact Orthopedic Surgery Diagnoses . Cedric Sweeney M.D. [facility] [address] [place] [phone] Referral ID Status Reason Start Date Expiration Date Visits Requ ested Visits Authorized [id number] Closed 02/02/2019 02/02/2020 1 1 Encounter Details Date Type Department Care Team Description 02/15/2019 Office Visit Department of Kimberlyn Alvarez, Pain Knee B ilateral Orthopedic Surgery in [place], (Prim radha Dx) [place], [place] D.N.P. [address] [phone] Social History Tobacco Use Types Packs/Day Years Used Date Smoking Tobacco: Former Cigarettes Quit : 04/07/1987 Smokeless Tobacco: Never Alcohol Habits Answer Date Recorded How often do you have a drink containing 4 or more times a w [place] 07/30/2021 alcohol? How many drinks containing alcohol [...] or relatives? How often do you attend orthodox or Patient refused 2021 roman catholic services? Do you belong to any clubs or Yes 07/30/2021 organizations such as orthodox groups, unions, fraternal or athletic groups, or [...] or slept in a correction (including now)? 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 - 02/15/2019 2:45 PM CST Priscilla Fitzpatrick is a pleasant 63 y.o. female who has known significant osteoarthritis of her bilateral knee. She has tried conservative therapy as well as non conservative therapy including cypo-gpp-vimncwa analgesics which includes NSAIDs, activity modification, ice, physical therapy with continuedhome exercises, and cortisone injection without any significant improvement. ? Physical exam in general patient appears nondistressed. bilateral knee has no signs or symptoms of an infection. ?? Impression and plan- Priscilla Fitzpatrick is a very pleasant 63 y.o. who has known degenerative arthritis of the knee. It is impairing on activities of daily living. She has tried conservative measures without improvement. ?? She is here for her 3rd injection of viscosupplementation injections. ??After brief discussion on benefits and as well as risks, consent form was obtained, per sterile technique using 1% lidocaine and the lateral approach 1 standard dose of Euflexa was injected into the bilateral knee without difficulty. ??Patient tolerated the procedure well. Questions were answered SENIOR DEVELOPER documented in this encounter Procedure Notes Jenise Gomes L.P.N. - 02/15/2019 2:45 PM CSTAssociated Order(s): zru-xbzi-jvljgbnx-elbow arthrocentesis: L knee joint; ibw-pnsm-ehsixyur-elbow ar throcentesis: R knee joint Post-Procedure Diagnose(s): Pain Knee Bilateral Knee site- L knee joint : injection only Date/Time: 02/15/2019 2:34 PM Performed by: Kimberlyn Alvarez APRN, C.N.P., D.N.P. Authorized by: Kimberlyn Alvarez APRN, C.N.P., D.N.P. PROCEDURE DETAILS Procedure Location knee Knee site: L knee joint Site prep: patient was prepped and draped in usual sterile fashion Procedural approach: anterolateral Procedure performed: injection only Needle gauge: 22 G Procedural Medication The following medications were administered at the target site(s) Local anesthetic: 3 mL lidocaine (PF) 10 mg/mL (1 %) Viscosupplement: 20 mg sodium hyaluronate (viscosup) 10 mg/mL(mw 2.4 -3.6 million) CONSENT Consent obtained: written PRE-PROCEDURE DETAILS Procedure purpose: therapeutic and diagnostic Indications: bilateral knee pain Skin preparation: povidone-iodine SEDATION / ANESTHESIA Anesthesia method: none POST-PROCEDURE DETAILS Procedure completed successfully: yes Complications: no apparent complications Discharge instructions: dressing care and follow-up with ordering provider Knee site- R knee joint : injection only Date/Time: 02/15/2019 2:35 PM Performed by: Kimberlyn Alvarez APRN, C.N.P., D.N.P. Authorized by: Kimberlyn Alvarez APRN, C.N.P., D.N.P. PROCEDURE DETAILS Procedure Location knee Knee site: R knee joint Site prep: patient was prepped and draped in usual sterile fashion Procedural approach: anterolateral Procedure performed: injection only Needle gauge: 22 G Procedural Medication The following medications were administered at the target site(s) Local anesthetic: 3 mL lidocaine (PF) 10 mg/mL (1 %) Viscosupplement: 20 mg sodium hyaluronate (viscosup) 10 mg/mL(mw 2.4 -3.6 million) CONSENT Consent obtained: written PRE-PROCEDURE DETAILS Procedure purpose: therapeutic and diagnostic Indications: bilateral knee pain Skin preparation: povidone-iodine SEDATION / ANESTHESIA Anesthesia method: none POST-PROCEDURE DETAILS Procedure completed successfully: yes Complications: no apparent complications Post-procedure instructions: avoid strenuous activity for 5 days Discharge instructions: dressing care and follow-up with ordering provider SENIOR DEVELOPER documented in this encounter Plan of Treatment Upcoming Encounters Date Type Specialty Care Team Description 02/02/2022 Immunization Family Medicine 02/12/2022 Office Visit Dermatology Lacy Dykes M.D. [address] [place], [place] [phone] (Wo rk) 02/22/2022 Office Visit Orthopedic Surgery Kimberlyn Alvarez APRN, C.N.P., D.N.P. [address] [place], [place] [phone] (Wo rk) 03/12/2022 Diagnostic Otorhinolaryngology Blanka Carranza C.N.P. [address] [place], [place] [phone] Aleena Hassan Au.D. [address] [place] [phone] documented as of this encounter Procedures Procedure Name Priority Date/Time Associated Diagnosis Comme nts IA ARTHCS ASP/INJ Routine 02/15/2019 2:45 PM Pain Knee Bilater al Results for this MJR JT WO US SAP SENIOR DEVELOPER procedure are i n the results section. IA ARTHCS ASP/INJ Routine 02/15/2019 2:45 PM Pain Knee Bilater al Results for this MJR JT WO US SAP SENIOR DEVELOPER procedure are i n the results section. documented in this encounter Results IA ARTHCS ASP/INJ MJR JT WO US (02/15/2019 2:45 PM SAP SENIOR DEVELOPER) Narrative MMODAL - 02/15/2019 2:45 PM SAP SENIOR DEVELOPER Jenise Gomes L.P.N. ? 02/17/2019 ??5:10 PM Knee site- R knee joint : injection only Date/Time: 02/15/2019 2:35 PM Performed by: Kimberlyn Alvarez APRN, C.N. P., D.N.P. Authorized by: Kimberlyn Alvarez APRN C.N .PPhil, D.N.P. PROCEDURE DETAILS Procedure Location knee Knee site: R knee joint Site prep: patient was prepped and drape d in usual sterile fashion ?? Procedural approach: anterolateral Procedure performed: injection only Needle gauge: 22 G Procedural Medication The following medications were administe red at the target site(s) Local anesthetic: 3 mL lidocaine (PF) 10 mg/mL (1 %) Viscosupplement: 20 mg sodium hyaluronat e (viscosup) 10 mg/mL(mw 2.4 -3.6 million) CONSENT Consent obtained: written PRE-PROCEDURE DETAILS Procedure purpose: therapeutic and diagn ostic Indications: bilateral knee pain Skin preparation: povidone-iodine SEDATION / ANESTHESIA Anesthesia method: none POST-PROCEDURE DETAILS Procedure completed successfully: yes Complications: no apparent complications ?? Post-procedure instructions: avoid stren uous activity for 5 days Discharge instructions: dressing care an d follow-up with ordering provider Kimberlyn Alvarez APRN, C.N.PPhil, D.N.P. PROCEDURE/MINOR CONNOR GICAL ORDERABLES Performing Organization Address City/State/ZIP Code Phon e Number MMODAL MMODAL NA [place] ARTHCS ASP/INJ MJR JT WO US (02/15/2019 2:45 PM SAP SENIOR DEVELOPER) Narrative MMODAL - 02/15/2019 2:45 PM SAP SENIOR DEVELOPER Jenise Gomes L.P.N. ? 02/17/2019 ??5:10 PM Knee site- L knee joint : injection only Date/Time: 02/15/2019 2:34 PM Performed by: Kimberlyn Alvarez APRN, C.N. [...] target site(s) Local anesthetic: 3 mL lidocaine (PF) 10 mg/mL (1 %) Viscosupplement: 20 mg sodium hyaluronat e (viscosup) 10 mg/mL(mw 2.4 -3.6 million) CONSENT Consent obtained: written PRE-PROCEDURE DETAILS Procedure purpose: therapeutic and diagn ostic Indications: bilateral knee pain Skin preparation: povidone-iodine SEDATION / ANESTHESIA Anesthesia method: none POST-PROCEDURE DETAILS Procedure completed successfully: yes Complications: no apparent complications ?? Discharge instructions: dressing care an d follow-up [...] Action Action Date Dose Rate Site lidocaine (PF) 10 mg/mL (1 %) Given 02/15/2019 2:34 PM SAP SENIOR DEVELOPER 3 mL injection 3 mL (XYLOCAINE) 3 mL, infiltration, One-Time Injection, Starting on Fri02/15/19 at 1434, For 1 dose lidocaine (PF) 10 mg/mL (1 %) injection 3 mL Given 02/15/2019 2: 35 PM SAP SENIOR DEVELOPER 3 mL (XYLOCAINE) 3 mL, infiltration, One-Time Injection, Starting on Fri02/15/19 at 1435, For 1 dose sodium hyaluronate (viscosup) injection 20 mg Given 2:34 PM SAP SENIOR DEVELOPER 20 mg (EUFLEXXA) 20 mg, intra-articular, One-Time Injection, Starting on Fri02/15/19 at 1434, For 1 dose sodium hyaluronate (viscosup) injection 20 mg Given 2:35 PM SAP SENIOR DEVELOPER 20 mg (EUFLEXXA) 20 mg, intra-articular, One-Time Injection, Starting on Fri02/15/19 at 1435, For 1 dose documented in this encounter Additional Health Concerns Assessment Noted Time PHQ-9 Depression Total Score: 2 04/22/2015 11:24 AM CS T documented as of this encounter
--- OUTSIDE RECORDS SUMMARY | 2022-01-31 09:37 | XMS_ITS | Encounter Summary ---
:1955 Author Organization [facility] Address [address] [place] [address] Care Team Providers Name Role Phone Unavailable Primary Care Provider Unavailable Reason for Referral Outpatient (Routine) - Closed Specialty Diagnoses / Procedures Referred By Contact Refer red To Contact Dermatology Sunny Olivarez M.D. [facility] [address] [place] [address] Referral ID Status Reason Start Date Expiration Date Visits Requ ested Visits Authorized [id number] Closed 07/29/2019 07/28/2020 1 1 Scheduling Instructions Michelet Wagoner, suture removal 10-14 days post op Reason for Visit Outpatient (Routine) - Closed Specialty Diagnoses / Procedures Referred By Contact Refer gilson To Contact Diagnoses Nevus Atypical Lacy Dykes M.D. [facility] Procedures MCKAYLA Excision 1-2 sites [address] [place] [address] Referral ID Status Reason Start Date Expiration Date Visits Requ ested Visits Authorized [id number] Closed 05/13/2019 05/12/2020 1 1 Encounter Details Date Type Department Care Team Description 07/29/2019 Procedure visit Department of Sunny Olivarez Ne vus Atypical [place]ology [place] [address] [place] [address] [place], [place] [phone] (Wo rk) [phone] Social History Tobacco Use Types Packs/Day Years Used Date Smoking Tobacco: Former Cigarettes Quit : 04/07/1987 Smokeless Tobacco: Never Alcohol Habits Answer Date Recorded How often do you have a drink containing 4 or more times a w [place] 07/30/2021 alcohol? How many drinks containing alcohol [...] you attend shinto or Patient refused 2021 druze services? 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 - 07/29/2019 10:00 AM CDTAssociated Order(s): MCKAYLA EXCISION 1-2 SITES PREOP INDICATION: REMOVAL. Date of Surgery: 07/29/2019 Surgeon: Dr. Olivarez Deicer Repairer Electric: Dr. Nugent Location: [facility]: Floor:16 Room:[facility] Visit Type: Outpatient PostOp Diagnosis: Severely atypical nevus Anatomic Location: Right medial thigh Preoperative size: 0.9 x 0.5 cm with circumferential margins of 5 mm for a total excision diameter of 1.9 x 1.5 cm. Procedure: Excision with intermediate layered closure Prior to the procedure, final verification of the patient identity and correct marked surgical site was performed. Procedural pause conducted to verify: correct patient identity, procedure to be performed and as applicable, correct side and site, correct patient position, and availability of implants, special equipment or special requirements. INFORMED CONSENT Discussed the risks, benefits, alternatives, and the necessity of other members of the healthcare team participating in the procedure. All questions answered and consent given. PATIENT EDUCATION Ready to learn, no apparent learning barriers were identified; learning preferences include listening. Explained diagnosis and treatment plan; patient expressed understanding of the content. Preoperative medications: None Anesthesia used was 1% lidocaine with 1:200,000 epinephrine. The skin was prepped in a sterile fashion with Hibiclens. The lesion was excised with five-mm clinically tumor-free margins in a fusiform fashion through the skin and through the subcutaneous tissue. Hemostasis was obtained with electrocoagulation. Due to wound size, the wound edges were closed in an intermediate layered fashion with 3-0 Vicryl and 4-0 PDS subcutaneous sutures and 5-0 nylon skin sutures. Postoperative length: 7.4 cm. Estimated blood loss: Minimal. Complications: None. Wound care: Routine. Specimen sent to Dermatopathology. Biopsy report is pending. Postoperative medications: None documented in this encounter Consult Notes Michael Nugent M.D. - 07/29/2019 10:00 AM CDT Referral Lacy Dykes M.D. Chief Complaint Severely atypical nevus HISTORY OF PRESENT ILLNESS is a very pleasant 63 y.o. female who presents today for treatment of severely atypicalnevus. Lesion was biopsied by Dr. Dykes in April and found consistent with a severely atypical nevus. She reports no prior history of skin cancer and no family history of melanoma. She reports no other specific concerns today. The dermatologic surgery preoperative information sheet was reviewed. History of well-controlled hypertension. She does not have a pacemaker or defibrillator and does not typically require antibiotics before dental work or other procedures. She is currently taking the following antithrombotic medications: None. No tobacco use and she does drink alcohol. REVIEW OF SYSTEMS Negative except for as above PHYSICAL EXAM Blood pressure 117/79, pulse 78. General: No acute distress. Pleasant and cooperative. Alert and oriented. Skin: Examination limited to the right posterior thigh per patient request. Over the right medial thigh, there is a 0.9 x 0.5 cm hyperpigmented macular scar at previous biopsy site. No other concerninglesions IMPRESSION/REPORT/PLAN #1 Severely atypical nevus, right medial thigh Recommended wide local excision for definitive treatment. Risks, benefits, and alternatives were discussed. Patient elected to proceed. Briefly, 0.5 cm margins were utilized. A fusiform excision was performed and the specimen sent to Dermatopathology. The resulting defect was closed in a intermediate layered fashion, with a postoperative length of 7.4 cm. Patient tolerated the procedure well. Please the operative note for additional details. The results of today's excision will go to Dr. Dykes, who will be in touch with the results and any additional recommendations. All questions answered. PROCEDURAL PAUSE Procedural pause conducted to verify: correct patient identity, procedure to be performed, and as applicable, correct side and site, correct patient position, and availability of implants, special equipment, or special requirements. PATIENT EDUCATION Ready to learn. No apparent learning barriers were identified. Learning preferences include listening. Explained diagnosis and treatment plan; patient/guardian of patient expressed understanding of thecontent. INFORMED CONSENT Discussed the risks, benefits, alternatives, and the necessity of other members of the healthcare team participating in the procedure. All questions answered and consent given. Associated attestation - Sunny Olivarez M.D. - 07/29/2019 12:21 PM CDT I saw and evaluated the patient, participating in the causey elements of the service. I discussed the findings, assessment and plan with the resident/fellow and agree with resident/fellow???s findings andplan as documented in the resident/fellow's note. I was immediately available for the entirety of the procedure(s) and present for the causey and critical portions. Ms. Fitzpatrick is here for treatment of a severely atypical nevus on the thigh. It is amenable to anexcision with 5 mm margins to mid fat. Primary repair was possible. Patient education provided priorto departure. She should be cautious with excessive physical activity due to the location close to the popliteal fossa. The 1st week in particular, especially since the patient enjoys cycling, she should be careful with flexion of the knee. Additional details may be found the separate notes of Dr. Nugent. If unexpected findings are discovered on the excision of pathology then additional action maybe indicated the patient is aware. documented in this encounter Miscellaneous Notes Result Encounter Note - Lacy Dykes M.D. - 08/02/2019 4:30 PM CDT Re-excision already done letter in procedure Clinic in [place]. Michelet Wagoner patient. Please send letter documented in this encounter Plan of Treatment Upcoming Encounters Date Type Specialty Care Team Description 02/02/2022 Immunization Family Medicine 02/12/2022 Office Visit Dermatology Lacy Dykes M.D. [address] [place], [place] [phone] (Lisha mccann) 02/22/2022 Office Visit Orthopedic Surgery Kimberlyn Alvarez, JOSE DANIEL, C.N.P., D.N.P. [address] [place], [place] [phone] (Lisha mccann) 03/12/2022 Diagnostic Otorhinolaryngology Blanka Carranza C.N.P. [address] [place] [address] Aleena Hassan Au.D. [address] [facility] [place] [phone] Scheduled Referrals Name Type Priority Associated Order Schedule Diagnoses Dermatology nurse Outpatient Referral Routine Exp ected: visit (clinic) 08/09/2019 (Approximate), Expires: 07/28/2022 documented as of this encounter Procedures Procedure Name Priority Date/Time Associated Comments Diagnosis MCKAYLA EXCISION 1-2 SITES Routine 07/29/2019 10:00 Nevus Atypical Results for this AM CDT procedure are i n the results section. DERMATOPATHOLOGY Routine 07/29/2019 9:54 AM Nevus Atypical Res ults for this CDT procedure are i n the results section. documented in this encounter Results MCKAYLA Excision 1-2 sites (07/29/2019 10:00 AM CDT) Narrative Sunny Olivarez M.D. - 07/29/2019 10:00 AM CDT Michael Nugent M.D. ? 07/29/2019 11:51 AM PREOP INDICATION: REMOVAL. Date of Surgery: 07/29/2019 Surgeon: Dr. Olivarez Deicer Repairer Electric: Dr. Nugent Location: [place] ?? Bldg:GO ?? Floor: 16 ?? Room:DERMPR Visit Type: Outpatient PostOp Diagnosis: ??Severely atypical [...] skin was prepped in a sterile fashion wi philip Langley. ??The lesion was excised with five-mm [...] ?? Lacy Dykes M.D. DERM PROCEDURE ORDERABLES Dermatopathology (07/29/2019 9:54 AM CDT) Component Value Ref Test Analysis Performed Pathologis t Range Method Time At Signature 08/02/2019 [facility] 2:12 PM CDT Report Mariah Titi Mcclelland, 08/02/2019 [facility] electronically Sudarshan 2:12 PM signed by CDT Gross Description Received in formalin labeled with patient name, p atient 08/02/2019 PDR number and labeled as right medial thigh is a 4.3 x 1.4 2:12 PM cm CDT non oriented skin ellipse excised to a depth of 0.3 cm. Eccentrically there is a 1.0 x 0.6 cm pink-shah cicatrix located 0.4 cm to the nearest peripheral margin. ??The margin is inked and the specimen is serially sectioned. Vending Machine Collector sections are submitted as follows: A1 tips A2 lesion A3 adjacent to lesion Grossed by KATHRYN. Interpretation FINAL DIAGNOSIS 08/02/2019 PDRM A. ??Right medial thigh, Skin excision: ??Re-excision of 2:12 PM atypical nevus ([id number], specimen collection date CDT 05/04/2019), no residual nevus identified Specimen (Source) Anatomical Collection Method Collection Time Re ceived Time Location / / Volume Laterality Skin (Right 07/29/2019 9:54 AM medial thigh) CDT Narrative This result has an attachment that is no t available. Lacy Dykes M.D. LAB PATH DERM ORDERABLES Performing Organization Address City/State/ZIP Code Phon e Number [facility] - [address] [place], [place] [address] [place] [address] [facility] [address] documented in this encounter Visit Diagnoses Diagnosis Nevus Atypical documented in this encounter Administered Medications Inactive Administered Medications - up to 3 most recent administrations Medication Order MAR Action Action Date Dose Rate Site lidocaine-EPINEPHrine 1%-1:200,000 Given 07/29/2019 11:34 AM CDT 16 mL injection 2-50 mL (XYLOCAINE W/EPI) 2-50 mL, injection, As needed, may repeat if the patient complains of pain/discomfort at the site up to 50 mL for entire procedure, Starting on Taniya 07/29/19 at 0940, For 1 day documented in this encounter Additional Health Concerns Assessment Noted Time PHQ-9 Depression Total Score: 2 04/22/2015 11:24 AM CS T documented as of this encounter
--- OUTSIDE RECORDS SUMMARY | 2022-01-31 09:37 | XMS_ITS | Encounter Summary ---
:1955 Author Organization [facility] Address [address] [place] [address] Care Team Providers Name Role Phone Unavailable Primary Care Provider Unavailable Reason for Referral Outpatient (Routine) - Closed Specialty Diagnoses / Procedures Referred By Contact Refer red To Contact Orthopedic Surgery Diagnoses . Cedric Sweeney M.D. [facility] [address] [phone] Referral ID Status Reason Start Date Expiration Date Visits Requ ested Visits Authorized [id number] Closed 02/02/2019 02/02/2020 1 1 Outpatient (Routine) - Closed Specialty Diagnoses / Procedures Referred By Contact Refer red To Contact Orthopedic Surgery Cedric Sweeney M .D. [facility] [address] [phone] Referral ID Status Reason Start Date Expiration Date Visits Requ ested Visits Authorized [id number] Closed 02/02/2019 02/02/2020 1 1 Outpatient (Routine) - Closed Specialty Diagnoses / Procedures Referred By Contact Refer red To Contact Diagnoses Pain Knee Bilateral Cedric Sweeney M.D. [facility] [place] [facility] Procedures mwx-nqqi-jgeqwcbr-elbow arthrocentesis: L knee joint MD EUFLEXXA 20MG MD ARTHCS ASP/INJ MJR JT WO US [address] [place] [phone] Referral ID Status Reason Start Date Expiration Date Visits Requ ested Visits Authorized [id number] Closed 02/02/2019 02/02/2020 1 1 Outpatient (Routine) - Closed Specialty Diagnoses / Procedures Referred By Contact Refer red To Contact Diagnoses Pain Knee Bilateral Cedric Sweeney M.D. [facility] [place] [facility] Procedures bfi-sewo-nlarabfm-elbow arthrocentesis: R knee joint [address] [place] [phone] Referral ID Status Reason Start Date Expiration Date Visits Requ ested Visits Authorized [id number] Closed 02/02/2019 02/02/2020 1 1 Reason for Visit Reason Comments Follow-up Pain Bursitis Encounter Details Date Type Department Care Team Description 02/02/2019 Office Visit Department of Cedric Sweeney Pain Kne e Bilateral Orthopedic Surgery in [place] (Primary Dx) [place], [address] [place] [phone] [place], [place] [phone] (Work) [phone] Social History Tobacco Use Types Packs/Day Years Used Date Smoking Tobacco: Former Cigarettes Quit : 04/07/1987 Smokeless Tobacco: Never Alcohol Habits Answer Date Recorded How often do you have a drink containing 4 or more times a w [place]-shoshone 07/30/2021 alcohol? How many drinks containing alcohol [...] you attend yazidi or Patient refused 2021 temple services? Do [...] or slept in a residential (including now)? 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 - 02/02/2019 10:30 AM CDTAssociated Order(s): zkj-ilox-amjuhoqo-elbow arthrocentesis: R knee joint; mxh-azyf-qpecfklt-elbow ar throcentesis: L knee joint Post-Procedure Diagnose(s): Pain Knee Bilateral Knee site- R knee joint : injection only Date/Time: 02/02/2019 11:00 AM Performed by: Cedric Sweeney M.D. Authorized by: Cedric Sweeney M.D. PROCEDURE DETAILS Procedure Location knee Knee site: [...] provider Knee site- L knee joint Date/Time: 02/02/2019 11:07 AM Performed by: Cedric Sweeney M.D. Authorized by: Cedric Sweeney M.D. PROCEDURE DETAILS Procedure Location knee Knee site: [...] dressing care and follow-up with ordering provider EPT ARTIST documented in this encounter Consult Notes Cedric Sweeney M.D. - 02/02/2019 10:30 AM CDT HISTORY OF PRESENT ILLNESS Priscilla is a 56-year-old woman, who is here in regard to her knees. She is noted to have significantosteoarthritis to both of her knees. She has had continued troubles with worsening pain. She did have significant improvement with previous hyaluronic acid injections and would like to repeat this again. She has failed conservative measures including physical therapy program, anti-inflammatory medications and activity modification. Her knee was prepped with iodine. Needle was then placed in the lateral aspect of each knee. An injection of 20 mg of Euflexxa was placed in each knee. She tolerated this well. We will plan to see her back next week and the following week for her second and third injections. EPT ARTIST documented in this encounter Plan of Treatment Upcoming Encounters Date Type Specialty Care Team Description 02/02/2022 Immunization Family Medicine 02/12/2022 Office Visit Dermatology Lacy Dykes M.D. [address] [place], [place] [phone] (Wo rk) 02/22/2022 Office Visit Orthopedic Surgery Kimberlyn Alvarez APRN C.N.P., D.N.P. [address] [place], [place] [phone] (Wo rk) 03/12/2022 Diagnostic Otorhinolaryngology Blanka Carranza C.N.P. [address] [place], [place] [phone] Aleena Hassan Au.D. [address] [place] [address] Scheduled Referrals Name Type Priority Associated Order Schedule Diagnoses Orthopedic Surgery Outpatient Referral Routine Ex pected: office visit 02/09/2019 (clinic) (Approximate), Expires: 02/02/2022 Orthopedic Surgery Outpatient Referral Routine Ex pected: office visit 02/15/2019 (clinic) (Approximate), Expires: 02/02/2022 documented as of this encounter Procedures Procedure Name Priority Date/Time Associated Diagnosis Comme nts MD ARTHCS ASP/INJ Routine 02/02/2019 10:30 AM Pain Knee Bilate ral Results for this MJR JT WO US CDT procedure are i n the results section. MD ARTHCS ASP/INJ Routine 02/02/2019 10:30 AM Pain Knee Bilate ral Results for this MJR JT WO US CDT procedure are i n the results section. documented in this encounter Results MD ARTHCS ASP/INJ MJR JT WO US (02/02/2019 10:30 AM CDT) Narrative MMODAL - 02/02/2019 10:30 AM CDT Loreta Crowell R.N. ? 02/08/2019 ??7:58 AM Knee site- L knee joint Date/Time: 02/02/2019 11:07 AM Performed by: Cedric Sweeney M.D. Authorized by: Cedric Sweeney M.D. PROCEDURE DETAILS Procedure Location knee Knee site: [...] care an d follow-up with ordering provider Cedric Sweeney M.D. PROCEDURE/MINOR SURGICAL ORD ERABLES Performing Organization Address City/State/ZIP Code Phon e Number MMODAL MMODAL NA MD ARTHCS ASP/INJ MJR JT WO US (02/02/2019 10:30 AM CDT) Narrative MMODAL - 02/02/2019 10:30 AM CDT Loreta Crowell R.N. ? 02/08/2019 ??7:58 AM Knee site- R knee joint : injection only Date/Time: 02/02/2019 11:00 AM Performed by: Cedric Sweeney M.D. Authorized by: Cedric Sweeney M.D. PROCEDURE DETAILS Procedure Location knee Knee site: [...] care an d follow-up with ordering provider Cedric Sweeney M.D. PROCEDURE/MINOR SURGICAL ORD ERABLES Performing Organization Address City/State/ZIP Code Phon e Number MMODAL MMODAL NA documented in this encounter Visit Diagnoses Diagnosis Pain Knee Bilateral - Primary documented in this encounter Administered Medications Inactive Administered Medications - up to 3 most recent administrations Medication Order MAR Action Action Date Dose Rate Site lidocaine 10 mg/mL (1 %) injection Given 02/02/2019 11:00 AM CDT 3 mL 3 mL (XYLOCAINE) 3 mL, infiltration, One-Time Injection, Starting on Fri02/02/19 at 1100, For 1 dose lidocaine 10 mg/mL (1 %) injection 3 mL Given 02/02/2019 11:07 A M CDT 3 mL (XYLOCAINE) 3 mL, infiltration, One-Time Injection, Starting on Fri02/02/19 at 1107, For 1 dose sodium hyaluronate (viscosup) injection 20 mg Given 11:00 AM CDT 20 mg (EUFLEXXA) 20 mg, intra-articular, One-Time Injection, Starting on Fri02/02/19 at 1100, For 1 dose sodium hyaluronate (viscosup) injection 20 mg Given 11:07 AM CDT 20 mg (EUFLEXXA) 20 mg, intra-articular, One-Time Injection, Starting on Fri02/02/19 at 1107, For 1 dose documented in this encounter Additional Health Concerns Assessment Noted Time PHQ-9 Depression Total Score: 2 04/22/2015 11:24 AM CS T documented as of this encounter
--- OUTSIDE RECORDS SUMMARY | 2022-01-31 09:37 | XMS_ITS | Encounter Summary ---
:1955 Author Organization [facility] Address [address] [place] [address] Care Team Providers Name Role Phone Unavailable Primary Care Provider Unavailable Encounter Details Date Type Department Care Team Description 03/15/2019 Ancillary Procedure Department of Dermatology Social History Tobacco Use Types Packs/Day Years [...] or relatives? How often do you attend buddhism or Patient refused 2021 presybeterian services? 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 [address] [place], [place] [phone] (Wo rk) 02/22/2022 Office Visit Orthopedic Surgery Kimberlyn Alvarez APRN, C.N.P., D.N.P. [address] [place], [place] [phone] (Wo rk) 03/12/2022 Diagnostic Otorhinolaryngology Blanka Carranza, C.N.P. [address] [place], [place] [phone] Aleena Hassan Au.D. [address] [place] [address] documented as of this encounter Procedures Procedure Name Priority Date/Time Associated Comments Diagnosis DERMATOLOGY IMAGE Routine 03/15/2019 8:40 AM Resu lts for this EXAM CLAIM EXAMINER procedure are i n the results section. documented in this encounter Results lower extremity, right posterior thigh 408-Dermatology Image Exam (03/15/2019 8:40 AM CLAIM EXAMINER) Specimen (Source) Anatomical Collection Method Collection Time Re ceived Time Location / / Volume Laterality 03/15/2019 8:39 AM CLAIM EXAMINER Narrative IIMS - 03/15/2019 8:41 AM CLAIM EXAMINER This order has been created and auto-finalized to support the import of images acquired without order. The clini enrique documentation to support these images can be found on the encounter scarlet t produced images. Provider Not In System IMG NON RAD IMAGING PROCEDUR ES Performing Organization Address City/State/ZIP Code Phon e Number IIMS IIMS NA documented in this encounter Visit Diagnoses Not on filedocumented in this encounter Additional Health Concerns Assessment Noted Time PHQ-9 Depression Total Score: 2 04/22/2015 11:24 AM SAUL T documented as of this encounter
--- OUTSIDE RECORDS SUMMARY | 2022-01-31 09:37 | XMS_ITS | Encounter Summary ---
:1955 Author Organization [facility] Address [address] [place] [address] Care Team Providers Name Role Phone Unavailable Primary Care Provider Unavailable Reason for Visit Reason Comments Suture / Staple Removal Outpatient (Routine) - Closed Specialty Diagnoses / Procedures Referred By Contact Refer red To Contact Dermatology Sunny Olivarez M.D. [facility] Region [address] [place] [address] Referral ID Status Reason Start Date Expiration Date Visits Requ ested Visits Authorized [id number] Closed 07/29/2019 07/28/2020 1 1 Encounter Details Date Type Department Care Team Description 08/09/2019 Nurse Only Department of Serge Olivarez [place].D. [address] [place] [address] Suture / Staple Dermatology in [place] Ginny Carlin RPhilNPhil [address] [phone] [phone] Social History Tobacco Use Types Packs/Day Years Used Date Smoking Tobacco: Former Cigarettes Quit : 04/07/1987 Smokeless Tobacco: Never Alcohol Habits Answer Date Recorded How often do you have a drink containing 4 or more times a w paimi[place] 07/30/2021 alcohol? How many drinks containing alcohol [...] or relatives? How often do you attend christian or Patient refused 2021 quaker services? 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 - 08/09/2019 10:45 AM CDTAssociated Order(s): Suture Removal Post-Procedure Diagnose(s): Nevus Atypical Suture Removal Date/Time: 08/09/2019 10:35 AM Performed by: Ginny Carlin L.PMarian Authorized by: Sunny Olivarez M.D. PROCEDURE DETAILS Wound appearance: Tender, good wound healing and no signs of infection Number of sutures removed: 8 PRE PROCEDURE DETAILS Sutures were placed at [place] facility: yes Indicaton: scheduled suture removal SEDATION / ANESTHESIA Anesthesia method: none POST PROCEDURE DETAILS Procedure completed successfully: yes Complications: no immediate complications Post-removal: Dressing applied documented in this encounter Plan of Treatment Upcoming Encounters Date Type Specialty Care Team Description 02/02/2022 Immunization Family Medicine 02/12/2022 Office Visit Dermatology Lacy Dykes M.D. [address] [place], [place] [phone] (Lisha rk) 02/22/2022 Office Visit Orthopedic Surgery Kimberlyn Alvarez APRN C.N.P., D.N.P. [address] [place], [place] [phone] (Wo ) 03/12/2022 Diagnostic Otorhinolaryngology Blanka Carranza C.N.P. [address] [place], [place] [phone] Aleena Hassan Au.D. [address] [place] [phone] documented as of this encounter Procedures Procedure Name Priority Date/Time Associated Diagnosis Comme nts SUTURE REMOVAL Routine 08/09/2019 10:45 AM Nevus Atypical Resu lts for this CDT procedure are i n the results section . documented in this encounter Results SUTURE REMOVAL (08/09/2019 10:45 AM CDT) Narrative MMODAL - 08/09/2019 10:45 AM CDT Ginny Carlin L.P.N. ? 08/09/2019 11:03 AM Suture Removal Date/Time: 08/09/2019 10:35 AM Performed by: Ginny Carlin L.PMarian Authorized by: Sunny Olivarez M.D . PROCEDURE DETAILS Wound appearance: ??Tender, good wound h ealing and no signs of infection Number of sutures removed: ??8 PRE PROCEDURE DETAILS Sutures were placed at [facility] facility: ye s ?? Indicaton: scheduled suture removal ?? SEDATION / ANESTHESIA Anesthesia method: none POST PROCEDURE DETAILS Procedure completed successfully: yes ?? Complications: no immediate complication s ?? Post-removal: ??Dressing applied Sunny Olivarez M.D. PROCEDURE/MINOR SURGICAL ORD ERABLES Performing Organization Address City/State/ZIP Code Phon e Number MMODAL MMODAL NA documented in this encounter Visit Diagnoses Diagnosis Nevus Atypical - Primary documented in this encounter Additional Health Concerns Assessment Noted Time PHQ-9 Depression Total Score: 2 04/22/2015 11:24 AM CS T documented as of this encounter
--- OUTSIDE RECORDS SUMMARY | 2022-01-31 09:37 | XMS_ITS | Encounter Summary ---
:1955 Author Organization [facility] Address [address] [place] [address] Care Team Providers Name Role Phone Unavailable Primary Care Provider Unavailable Encounter Details Date Type Department Care Team Description 07/22/2019 Clinical Communication Department of System, Provider Dermatology in [facility] [place], [place] [address] [place] [address] Social History Tobacco Use Types Packs/Day Years Used Date Smoking Tobacco: Former Cigarettes Quit : 04/07/1987 Smokeless Tobacco: Never Alcohol Habits Answer Date Recorded How often do you have a drink containing 4 or more times a w [place] 07/30/2021 alcohol? How many drinks containing alcohol [...] you attend religious or Patient refused 2021 congregational services? 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 a. Fever ? 38.0 C (100.5 F) last 24 hours?NO 2. In the past 5 days do you, anyone in the household, or anyone you have had prolonged exposure to have new symptoms (Specifically: cough, shortness of breath, respiratory distress, sore throat, diarrhea, chills, myalgia's (muscle aches), loss of smell, or change or loss of taste sensation)? NO 3. In the past 14 days have you, anyone in the household, or anyone you have had prolonged exposure to had close contact with persons who are under quarantine or isolation for COVID? {NO 4. In the last 14 days, have you, anyone in the household, or anyone you have had prolonged exposureto had close contact with a patient with known or possible COVID-19? NO 5. In the past 14 days have you been tested for COVID-19 with a positive or pending result? NO documented in this encounter Plan of Treatment Upcoming Encounters Date Type Specialty Care Team Description 02/02/2022 Immunization Family Medicine 02/12/2022 Office Visit Dermatology Lacy Dykes M.D. [address] [place] [phone] ( rk) 02/22/2022 Office Visit Orthopedic Surgery Kimberlyn Alvarez APRN C.N.P., D.N.P. [address] [place], [place] [phone] ( rk) 03/12/2022 Diagnostic Otorhinolaryngology Blanka Carranza, C.N.P. [address] [place], [place] [phone] Aleena Hassan Au.D. [address] [place] [address] documented as of this encounter Visit Diagnoses Not on filedocumented in this encounter Additional Health Concerns Assessment Noted Time PHQ-9 Depression Total Score: 2 04/22/2015 11:24 AM CS T documented as of this encounter
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
--- OUTSIDE RECORDS SUMMARY | 2022-01-31 09:37 | XMS_ITS | Encounter Summary ---
:1955 Author Organization [facility] Address [address] [place] [address] Care Team Providers Name Role Phone Unavailable Primary Care Provider Unavailable Reason for Visit Occupational Therapy (Routine) - Canceled Specialty Diagnoses / Procedures Referred By Contact Refer red To Contact Diagnoses Limitation Of Motion Finger Right Anibal Larkin M.D. [facility] Procedures OT Ongoing Treatment [address] [place] [phone] Referral ID Status Reason Start Date Expiration Date Visits V isits Requested Authorized [id number] Canceled 04/28/2018 04/06/2019 99 30 Encounter Details Date Type Department Care Team Description 05/18/2018 Clinical Support Department of Anibal Larkin M.D. [address] [place] [phone] Limitation Of Rehabilitation Berna Solorzano O.T. [address] [place] [phone] Motion Finger Right Services in [address] [phone] Social History Tobacco Use Types Packs/Day Years Used Date Smoking Tobacco: Former Cigarettes Quit : 04/07/1987 Smokeless Tobacco: Never Alcohol Habits Answer Date Recorded How often do you have a drink containing 4 or more times a w elem 07/30/2021 alcohol? How many drinks containing alcohol [...] or relatives? How often do you attend yarsani or Patient refused 2021 advent services? Do you belong to any clubs or Yes 07/30/2021 organizations such as yarsani groups, unions, fraternal or athletic groups, or [...] place to sleep or slept in a retirement (including now)? 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 - 05/18/2018 2:30 PM CST Occupational Therapy Outpatient Treatment ?? By co-signing this note, the provider certifies the therapy being provided to this patient is reasonable and necessary for the diagnosis or treatment of this patient. ? SUBJECTIVE Patient reports she is doing well. ?? Patient's Name: Priscillalauren Fitzpatrick Referring Provider: Anibal Larkin M.D. Visit Diagnosis: 1. Limitation Of Motion Finger Right ?? Reason for Referral: Right thumb ulnar collateral ligament 03/12/18 Onset Date: 03/12/18 Payor: [employer] / Plan: [employer] / Product Type: PPO / Epic Visit Count: 2 ?? Patient comments: Patient reports her thumb is feeling good. She has been completing her exercises. ?? OBJECTIVE Pain: Patient does not have pain. ?? Ortho Exam Patient has a well healing incision on the right thumb. Patient has been weaning out of her splint with no difficulty. Patient has good movement for IP flexion/ ext, and slight tightness at the MP. Patient left thumb IP flexion 50 degrees, MP 45 degrees. R thumb IP flexion 50 degrees, MP flexion 30 degrees. Left 3 point pinch: 5 kg, Right 4.5kg. Left lateral pinch 7 kg, right 6 kg. ?? TREATMENT Treatment today consisted of: Manual Therapy: Patient tolerated soft tissue mobilization over the incision. Patient has several bumps at the distal and proximal ends of her incision. ?? Therapeutic Exercise: Patient tolerated thumb flexion, ABD, opposition, x 10 reps x 2 sets of 10. Patient also completed blocking at the IP and MP x 10 reps x 2 sets. Patient completed Theraputty exercises. ?? Home Exercise Program/Education: Patient given yellow thera putty to complete gross grasp, 3 point pinch, and lateral pinch x 10 reps x 3 sets per day. Pt reports good compliance with their HEP. ? Assessment Clinical Impression: ??Amari??presents to occupational??therapy with signs and symptoms consistent with UCL repair. Patient is appropriate for skilled OT in order to increase [place] in ADL activities. ?? Functional Goals and Timeframes: Functional Goals and [...] with nodifficulty. OT Goal #3 Date: 06/12/18 ? Plan Patient will continue with HEP. ? Time Spent with Patient Manual Therapy (min): 10 min Therapeutic Exercise (min): 20 min ?? Time Calculation Total Timed Units (min): 30 min Total Treatment Time (min): 30 min ? Berna Solorzano O.T. S ANALYST documented in this encounter Plan of Treatment Upcoming Encounters Date Type Specialty Care Team Description 02/02/2022 Immunization Family Medicine 02/12/2022 Office Visit Dermatology Lacy Dykes M.D. [address] [place], [place] [phone] (Wo rk) 02/22/2022 Office Visit Orthopedic Surgery Kimberlyn Alvarez, JOSE DANIEL, C.N.P., D.N.P. [address] [place], [place] [phone] (Wo rk) 03/12/2022 Diagnostic Otorhinolaryngology Blanka Carranza, C.N.P. [address] [place], [place] [phone] Aleena Hassan Au.D. [address] [place] [phone] documented as of this encounter Visit Diagnoses Diagnosis Limitation Of Motion Finger Right documented in this encounter Additional Health Concerns Assessment Noted Time PHQ-9 Depression Total Score: 2 04/22/2015 11:24 AM SAUL T documented as of this encounter
--- OUTSIDE RECORDS SUMMARY | 2022-01-31 09:37 | XMS_ITS | Encounter Summary ---
:1955 Author Organization [facility] Address [address] [place] [address] Care Team Providers Name Role Phone Unavailable Primary Care Provider Unavailable Reason for Visit Reason Comments Skin Check Appointment Request (Routine) - Closed Specialty Diagnoses / Procedures Referred By Contact Refer red To Contact Dermatology Referral ID Status Reason Start Date Expiration Date Visits Requ ested Visits Authorized [id number] Closed 11/18/2018 11/18/2019 1 1 Encounter Details Date Type Department Care Team Description 03/15/2019 Office Visit Department of Lacy Dykes Nevi Multiple (Primary Dx); Dermatology in Michelet Roach M.D. Keratosis Seborrheic; [place], [place] [address] [facility] Tumor Skin Uncertain Behavior; [address] [place] [address] [place] [phone] Social History Tobacco Use Types Packs/Day Years Used Date Smoking Tobacco: Former Cigarettes Quit : 04/07/1987 Smokeless Tobacco: Never Alcohol Habits Answer Date Recorded How often do you have a drink containing 4 or more times a w [place] 07/30/2021 alcohol? How many drinks containing alcohol [...] or relatives? How often do you attend rastafarian or Patient refused 2021 oriental orthodox services? 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 - 03/15/2019 8:30 AM CST CHIEF COMPLAINT/REASON FOR VISIT Skin cancer screening exam HISTORY OF PRESENT ILLNESS Ms. Priscilla Fitzpatrick is a 63 y.o. female who presents for a full skin cancer screening examination.The patient denies a personal history of skin cancer or family history for melanoma. Her mother and father have had non-melanoma skin cancers. We are following two lesions involving the right upper posterior thigh (dermatofibroma) and right upper back (benign nevus). During our last visit on 03/09/18, we biopsied a lesion involving the right upper paraspinal back which came back as a moderately atypical nevus. She uses sunscreen. The patient has no [...] upper extremities, and bilateral lower extremities. My nurse (Ginny) served as a screen printing press operator for the entirety of the exam. Examination of the left glabella reveals a 9.5 mm x 8.5 light-brown flat annular patch, compatible with abenign lentigo. Examination of the left foot (web space between 3rd and 4th toes) reveals a 3.5 mm x3 mm uniformly pigmented brown nevus. Examination of the right thigh reveals a seborrheic keratosis.Examination of the right upper posterior thigh reveals a dermatofibroma. Examination of the face, trunk and extremities reveals multiple benign-appearing nevi, lentigines and seborrheic keratoses. Examination of the right lower posterior thigh reveals a 3 mm x 3.5 mm reddish-brown nevus with slight asymmetry. IMPRESSION/REPORT/PLAN #1 Right lower posterior thigh: Rule out atypical nevus I advised a return to the procedure clinic on 04/12/19 for a 6-mm punch biopsy. Photographs were takentoday with the patient's verbal consent. #2 Face, trunk and extremities: Multiple nevi and lentigines The ABCDE criteria for melanoma was reviewed with the patient. None of the patient's other nevi reach the clinical threshold for biopsy. I recommend continued sun protection, self-skin examinations, and observation. Should any of the patient's nevi change in size, color, texture, or shape or develop symptoms such as itching or bleeding, I recommend an immediate return visit for reassessment. Follow up in 6 months or immediately if any new or changing lesions are noted. #3 Face, trunk and extremities: Seborrheic keratosis The benign nature of the skin lesion(s) was discussed with the patient. No treatment is required. I recommend continued observation. Should symptoms or changes develop related to this condition, I would recommend a return visit for reassessment. #4 Right upper posterior thigh: Dermatofibroma The benign [...] Lacy Dykes M.D. Electronically Signed: tiana Cuenca. 03/15/2019. 8:27 AM. ILacy M.D., personally performed the services described in this documentation. All medical record entries made by the scribe were at my direction and in my presence. I have reviewed the chart and discharge instructions (if applicable) and agree that the record reflects my personal performance and is accurate and complete. Layc Dykes M.D. . 03/15/2019. 8:42 AM. T GRID ENGINEER documented in this encounter Plan of Treatment Upcoming Encounters Date Type Specialty Care Team Description 02/02/2022 Immunization Family Medicine 02/12/2022 Office Visit Dermatology Lacy Dykes M.D. [address] [place], [place] [phone] (Lisha mccann) 02/22/2022 Office Visit Orthopedic Surgery Kimberlyn Alvarez APRN, C.N.P., D.N.P. [address] [place], [place] [phone] (Lisha mccann) 03/12/2022 Diagnostic Otorhinolaryngology Blanka Carranza, C.N.P. [address] [place] [address] Aleena Hassan Au.D. [address] [place] [phone] Scheduled Orders Name Type Priority Associated Diagnoses Order S chedule Dermatology misc minor Dermatology Routine Nevi Multiple Expe cted: 04/12/2019 procedure (Approximate), Expires: 2021 documented as of this encounter Visit Diagnoses Diagnosis Nevi Multiple - Primary Keratosis Seborrheic Tumor Skin Uncertain Behavior Dermatofibroma documented in this encounter Additional Health Concerns Assessment Noted Time PHQ-9 Depression Total Score: 2 04/22/2015 11:24 AM CS T documented as of this encounter
--- OUTSIDE RECORDS SUMMARY | 2022-01-31 09:38 | XMS_ITS | Encounter Summary ---
:1955 Author Organization [facility] Address [address] [place] [address] Care Team Providers Name Role Phone Unavailable Primary Care Provider Unavailable Encounter Details Date Type Department Care Team Description 03/12/2018 Ancillary Procedure Department of Anesthesiology Social History Tobacco Use Types Packs/Day Years Used Date Smoking Tobacco: Former Cigarettes Quit : 04/07/1987 Smokeless Tobacco: Never Alcohol Habits Answer Date Recorded How often do you have a drink containing 4 or more times a w [place] 07/30/2021 alcohol? How many drinks containing alcohol [...] or relatives? How often do you attend sabianist or Patient refused 2021 orthodox services? Do you belong to any clubs or Yes 07/30/2021 organizations such as sabianist groups, unions, fraternal or athletic groups, or [...] or slept in a usp (including now)? 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 [address] [place], [place] [phone] (Wo rk) 02/22/2022 Office Visit Orthopedic Surgery Kimberlyn Alvarez APRN, C.N.P., D.N.P. [address] [place], [place] [phone] (Wo rk) 03/12/2022 Diagnostic Otorhinolaryngology Blanka Carranza, C.N.P. [address] [place], [place] [phone] Aleena Hassan Au.D. [address] [place] [phone] documented as of this encounter Procedures Procedure Name Priority Date/Time Associated Comments Diagnosis ANESTHESIOLOGY IMAGE Routine 03/12/2018 7:40 AM R esults for this EXAM FILLER PICKER procedure are i n the results section. documented in this encounter Results ANESTHESIOLOGY IMAGE EXAM (03/12/2018 7:40 AM FILLER PICKER) Specimen (Source) Anatomical Collection Method Collection Time Re ceived Time Location / / Volume Laterality 03/12/2018 7:40 AM FILLER PICKER Narrative [facility] - 03/12/2018 9:40 AM FILLER PICKER This order has been created and auto-finalized [...]
--- OUTSIDE RECORDS SUMMARY | 2022-01-31 09:38 | XMS_ITS | Encounter Summary ---
:1955 Author Organization [facility] Address [address] [place] [address] Care Team Providers Name Role Phone Unavailable Primary Care Provider Unavailable Reason for Referral Outpatient (Routine) - Closed Specialty Diagnoses / Procedures Referred By Contact Refer red To Contact Diagnoses Pain Knee Bilateral Kimberlyn Mayer APRN, [facility] [place] [facility] Procedures Large Joint Injection C.N.P., D.N.P. [address] [place] [address] Referral ID Status Reason Start Date Expiration Date Visits Requ ested Visits Authorized [id number] Closed 12/09/2017 12/09/2018 1 0 utpatient (Routine) - Closed Specialty Diagnoses / Procedures Referred By Contact Refer red To Contact Diagnoses Pain Knee Bilateral Kimberlyn Mayer APRN, [facility] [place] [facility] Procedures Large Joint Injection C.N.P., D.N.P. [address] [place] [address] Referral ID Status Reason Start Date Expiration Date Visits Requ ested Visits Authorized [id number] Closed 12/09/2017 12/09/2018 1 0 Reason for Visit Reason Comments Pain Here for Euflexxa injection Pain Auth/Cert Specialty Diagnoses / Procedures Referred By Contact Refer red To Contact Diagnoses Pain in right knee Pain in right knee Procedures FL ARTHCS ASP/INJ MJR JT WO US FL EUFLEXXA 20MG Euflexxa Injection Referral ID Status Reason Start Date Expiration Date Visits Requ ested Visits Authorized [id number] 1 1 Encounter Details Date Type Department Care Team Description 12/09/2017 Office Visit Department of Kimberlyn Mayer, Pain Knee B ilateral Orthopedic Surgery in [facility], CPhilNGavino, (Prim radha Dx) Michelet Wagoner D.N.P. [address] [place] [phone] Social History Tobacco Use Types Packs/Day Years [...] or relatives? How often do you attend jain or Patient refused 2021 pentecostalism services? 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 - 12/09/2017 8:00 AM CDT HISTORY OF PRESENT ILLNESS Priscilla is a 62-year-old woman who has been dealing with bilateral knee DJD. She still has problems with persistent pain in both of her knees. She has tried pharmacologic as well as non pharmacologic methods for her knee pain without significant improvement. She follows a physical therapy program without improvement. She has been taking anti-inflammatories regularly with only very temporary minimal improvement in her symptoms as well. She is here for viscosupplementation injections. However, she notably does have an allergic reaction with previous pseudoseptic reaction to Synvisc in the past. Therefore, we decided proceed with Euflexxa injections. Her knees were prepped with iodine. Needle was then placed in the lateral aspect of each knee. Injection of 1 standard unit of Euflexxa was placed in each knee. She tolerated this well. We will plan to see her back next week for her 3rd injection. ?? documented in this encounter Procedure Notes Trish Bhatti RMarian - 12/09/2017 8:00 AM CDTAssociated Order(s): LARGE JOINT INJECTION Post-Procedure Diagnose(s): Pain Knee Bilateral Fev-xrod-qwlplybp-elbow arthrocentesis Date/Time: 12/09/2017 8:03 AM Performed by: KIMBERLYN MAYER Authorized by: KIMBERLYN MAYER Laundry Operator utilized: cook morning not needed Risks discussed with: patient Procedural risks discussed, including (but not limited to) the following: allergic reaction, transient increased pain, possible continued pain, reaction to medication and infection Consent obtained: written The benefits, risks and alternatives to the procedure and the potential need for sedation or anesthesia as well as the names, roles, and responsibilities of healthcare team members performing significant interventional tasks were discussed with the patient and/or decision maker: yes The benefits, risks and alternatives to the possible need for blood products were discussed with thepatient and/or decision maker: not addressed All relevant documentation and testing were reviewed and available. All required blood products, implants, devices and/or special equipment were made available as applicable. The pre-procedure verification was conducted, the correct site was marked if required, and the procedural time out was conducted prior to performing the procedure and confirmed in a procedural pause: yes Procedure purpose: therapeutic Appropriate hand hygiene, gown, cap, mask, protective eyewear, sterile gloves, skin preparation, sterile drape, and strict aseptic technique were utilized as applicable for the procedure: yes Skin preparation: povidone-iodine Anesthesia method: none Procedure location: knee - Knee site: R knee joint Site prep: patient was prepped and draped in usual sterile fashion Patient position: seated Procedural approach: anterolateral Needle gauge: 22 G, length: 1 1/2 in The following medications were administered at the target site(s): Viscosupplement: 20 mg sodium hyaluronate (viscosup) 10 mg/mL(mw 2.4 -3.6 million) Procedure completed successfully: yes Complications: no apparent complications Post-procedure instructions: avoid strenuous activity for 5 days Discharge instructions: dressing care and follow-up with ordering provider Trish Bhatti RPhilN. - 12/09/2017 8:00 AM CDTAssociated Order(s): LARGE JOINT INJECTION Post-Procedure Diagnose(s): Pain Knee Bilateral Jui-tscr-dehzwxyf-elbow arthrocentesis Date/Time: 12/09/2017 8:04 AM Performed by: KIMBERLYN MAYER Authorized by: KIMBERLYN MAYER Laundry Operator utilized: cook morning not needed Risks discussed with: patient Procedural risks discussed, including (but not limited to) the following: allergic reaction, transient increased pain, possible continued pain, reaction to medication and infection Consent obtained: written The benefits, risks and alternatives to the procedure and the potential need for sedation or anesthesia as well as the names, roles, and responsibilities of healthcare team members performing significant interventional tasks were discussed with the patient and/or decision maker: yes The benefits, risks and alternatives to the possible need for blood products were discussed with thepatient and/or decision maker: not addressed All relevant documentation and testing were reviewed and available. All required blood products, implants, devices and/or special equipment were made available as applicable. The pre-procedure verification was conducted, the correct site was marked if required, and the procedural time out was conducted prior to performing the procedure and confirmed in a procedural pause: yes Procedure purpose: therapeutic Appropriate hand hygiene, gown, cap, mask, protective eyewear, sterile gloves, skin preparation, sterile drape, and strict aseptic technique were utilized as applicable for the procedure: yes Skin preparation: povidone-iodine Anesthesia method: none Procedure location: knee - Knee site: L knee joint Patient position: seated Procedural approach: anterolateral Needle gauge: 22 G, length: 1 1/2 in The following medications were administered at the target site(s): Viscosupplement: 20 mg sodium hyaluronate (viscosup) 10 mg/mL(mw 2.4 -3.6 million) Procedure completed successfully: yes Complications: no apparent complications Post-procedure instructions: avoid strenuous activity for 5 days Discharge instructions: dressing care and follow-up with ordering provider documented in this encounter Plan of Treatment Upcoming Encounters Date Type Specialty Care Team Description 02/02/2022 Immunization Family Medicine 02/12/2022 Office Visit Dermatology Lacy Dykes M.D. [address] [place], [place] [phone] (Lisha mccann) 02/22/2022 Office Visit Orthopedic Surgery Kimberlyn Mayer, JOSE DANIEL, C.N.P., D.N.P. [address] [place] [phone] (Wo rk) 03/12/2022 Diagnostic Otorhinolaryngology Blanka Carranza, CPhilNPhilPPhil [address] [place] [address] Aleena Hassan Au.D. [address] [facility] [place] [phone] documented as of this encounter Procedures Procedure Name Priority Date/Time Associated Diagnosis Comme nts FL ARTHCS ASP/INJ Routine 12/09/2017 8:00 AM Pain Knee Bilater al Results for this MJR JT WO US CDT procedure are i n the results section. FL ARTHCS ASP/INJ Routine 12/09/2017 8:00 AM Pain Knee Bilater al Results for this MJR JT WO US CDT procedure are i n the results section. documented in this encounter Results FL ARTHCS ASP/INJ MJR JT WO US (12/09/2017 8:00 AM CDT) Narrative MMODAL - 12/09/2017 8:00 AM CDT Trish Bhatti, RPhilN. ? 12/16/2017 12:32 PM Eqc-kxpd-bpzqscui-elbow arthrocentesis Date/Time: 12/09/2017 8:04 AM Performed by: KIMBERLYN MAYER Authorized by: KIMBERLYN MAYER Laundry Operator utilized: cook morning not ne eded ?? Risks discussed with: patient Procedural risks discussed, including (b ut not limited to) the following: allergic reaction, transient increased p ain, possible continued pain, reaction to medication and infection Consent obtained: written The benefits, risks and alternatives to the procedure and the potential need for sedation or anesthesia as well as the names, roles, and responsibilities of healthcare team memb ers performing significant interventional tasks were discussed with the patient and/or decision maker: yes ?? The benefits, risks and alternatives to the possible need for blood products were discussed with the patient and/or decision maker: not addressed All relevant documentation and testing w ere reviewed and available. All required blood products, implants, devic es and/or special equipment were made available as applicable. The pre-pr ocedure verification was conducted, the correct site was marked i f required, and the procedural time out was conducted prior to performi ng the procedure and confirmed in a procedural pause: yes ?? Procedure purpose: therapeutic Appropriate hand hygiene, gown, cap, mas k, protective eyewear, sterile gloves, skin preparation, sterile drape, and strict aseptic technique were utilized as applicable for the procedure : yes ?? Skin preparation: povidone-iodine Anesthesia method: none Procedure location: knee - Knee site: L knee joint Patient position: seated Procedural approach: anterolateral Needle gauge: 22 G, length: 1 1/2 in The following medications were administe red at the target site(s): ??Viscosupplement: 20 mg sodium hyaluro angélica (viscosup) 10 mg/mL(mw 2.4 -3.6 million) Procedure completed successfully: yes Complications: no apparent complications ?Post-procedure instructions: avoid st renuous activity for 5 days ??Discharge instructions: dressing care and follow-up with ordering provider Kimberlyn Mayer APRN, C.N.P., D.N.P. PROCEDURE/MINOR CONNOR GICAL ORDERABLES Performing Organization Address City/State/ZIP Code Phon e Number MMODAL MMODAL NA FL ARTHCS ASP/INJ MJR JT WO US (12/09/2017 8:00 AM CDT) Narrative MMODAL - 12/09/2017 8:00 AM CDT Trish Bhatti, RPhilNPhil ? 12/16/2017 12:32 PM Eiw-qjhr-zetjiesy-elbow arthrocentesis Date/Time: 12/09/2017 8:03 AM Performed by: KIMBERLYN MAYER Authorized by: KIMBERLYN MAYER Laundry Operator utilized: cook morning not ne eded ?? Risks discussed with: patient Procedural risks discussed, including (b ut not limited to) the following: allergic reaction, transient increased p ain, possible continued pain, reaction to medication and infection Consent obtained: written The benefits, risks and alternatives to the procedure and the potential need for sedation or anesthesia as well as the names, roles, and responsibilities of healthcare team memb ers performing significant interventional tasks were discussed with the patient and/or decision maker: yes ?? The benefits, risks and alternatives to the possible need for blood products were discussed with the patient and/or decision maker: not addressed All relevant documentation and testing w ere reviewed and available. All required blood products, implants, devic es and/or special equipment were made available as applicable. The pre-pr ocedure verification was conducted, the correct site was marked i f required, and the procedural time out was conducted prior to performi ng the procedure and confirmed in a procedural pause: yes ?? Procedure purpose: therapeutic Appropriate hand hygiene, gown, cap, mas k, protective eyewear, sterile gloves, skin preparation, sterile drape, and strict aseptic technique were utilized as applicable for the procedure : yes ?? Skin preparation: povidone-iodine Anesthesia method: none Procedure location: knee - Knee site: R knee joint Site prep: patient was prepped and drape d in usual sterile fashion ?? Patient position: seated Procedural approach: anterolateral Needle gauge: 22 G, length: 1 1/2 in The following medications were administe red at the target site(s): ??Viscosupplement: 20 mg sodium hyaluro angélica (viscosup) 10 mg/mL(mw 2.4 -3.6 million) Procedure completed successfully: yes Complications: no apparent complications ?Post-procedure instructions: avoid st renuous activity for 5 days ??Discharge instructions: dressing care and follow-up with ordering provider Kimberlyn Mayer APRN, C.N.P., D.N.P. PROCEDURE/MINOR CONNOR GICAL ORDERABLES Performing Organization Address City/State/ZIP Code Phon e Number MMODAL MMODAL NA documented in this encounter Visit Diagnoses Diagnosis Pain Knee Bilateral - Primary documented in this encounter Administered Medications Inactive Administered Medications - up to 3 most recent administrations Medication Order MAR Action Action Date Dose Rate Site sodium hyaluronate (viscosup) Given 12/09/2017 8:03 AM CDT 20 mg injection 20 mg (EUFLEXXA) 20 mg, intra-articular, One-Time Injection, Starting on Fri12/09/17 at 0803, For 1 dose sodium hyaluronate (viscosup) injection 20 mg Given 8:04 AM CDT 20 mg (EUFLEXXA) 20 mg, intra-articular, One-Time Injection, Starting on Fri12/09/17 at 0804, For 1 dose documented in this encounter Additional Health Concerns Assessment Noted Time PHQ-9 Depression Total Score: 2 04/22/2015 11:24 AM CS T documented as of this encounter
--- OUTSIDE RECORDS SUMMARY | 2022-01-31 09:38 | XMS_ITS | Encounter Summary ---
:1955 Author Organization [facility] Address [address] [place] [address] Care Team Providers Name Role Phone Unavailable Primary Care Provider Unavailable Encounter Details Date Type Department Care Team Description 12/05/2017 Hospital Encounter Department of Jennifer Carranza Mammogram Radiology in [place] M, C.NPhilPPhil High Risk Patient [place], [place] [address] [facility], [facility] [place] [address] [address] [address] [place], [place] [phone] (Work) [phone] Social History Tobacco Use Types Packs/Day Years Used Date Smoking Tobacco: Former Cigarettes Quit : 04/07/1987 Smokeless Tobacco: Never Alcohol Habits Answer Date Recorded How often do you have a drink containing 4 or more times a w chilkoot 07/30/2021 alcohol? How many drinks containing alcohol [...] or relatives? How often do you attend yarsanism or Patient refused 2021 mosque services? 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 valsartan (DIOVAN) 40 mg Take 2 tablets [...] Dermatology Lacy Dykes M.D. [address] [place], [place] [phone] (Wo rk) 02/22/2022 Office Visit Orthopedic Surgery Kimberlyn Alvarez APRN, C.N.P., D.N.P. [address] [place], [place] [phone] (Wo rk) 03/12/2022 Diagnostic Otorhinolaryngology Blanka Carranza, C.N.P. [address] [place], [place] [phone] Aleena Hassan Au.D. [address] [place] [phone] documented as of this encounter Procedures Procedure Name Priority Date/Time Associated Comments Diagnosis BI BREAST RAD - Routine 12/05/2017 10:34 Screening Results fo r this SCREENING (most inpatients AM CDT Mammogram High procedure are in BILATERAL and all Risk Patient the results outpatients) section. documented in this encounter Results BI Breast Screening Bilateral (12/05/2017 10:34 AM CDT) Anatomical Region Laterality Modality Breast, Breast Imaging RST LOS Bilateral Mammograp hy Specimen (Source) Anatomical Collection Method Collection Time Re ceived Time Location / / Volume Laterality 12/05/2017 11:38 AM CDT Impressions 12/05/2017 11:40 AM CDT IMPRESSION: ??Negative. RECOMMENDATION: ??Annual Screening Mammo gram ASSESSMENT: ??BI-RADS: 1: Negative. Narrative 12/05/2017 11:40 AM CDT EXAM: ??BI BREAST SCREENING BILATERAL Current study was evaluated with a Compu ter Aided Detection (CAD) system. INDICATION: ??Screening mammogram. COMPARISON: ??Prior exams were available for comparison. DENSITY: ??c. The breast(s) are heteroge neously dense, which may obscure small masses. FINDINGS: ??No mammographic findings of malignancy. Procedure Note Dawit Ribeiro M.D. - 12/05/2017Formatti ng of this note might be different from the original. EXAM: BI BREAST SCREENING BILATERAL Current study was evaluated with a Compu ter Aided Detection (CAD) system. INDICATION: Screening mammogram. COMPARISON: Prior exams were available f or comparison. DENSITY: c. The breast(s) are heterogene ously dense, which may obscure small masses. FINDINGS: No mammographic findings of ma lignancy. IMPRESSION: Negative. RECOMMENDATION: Annual Screening Mammogr am ASSESSMENT: BI-RADS: 1: Negative. Jennifer FARIAS BI PROCEDURES documented in this encounter Visit Diagnoses Diagnosis Screening Mammogram High Risk Patient documented in this encounter Additional Health Concerns Assessment Noted Time PHQ-9 Depression Total Score: 2 04/22/2015 11:24 AM CS T documented as of this encounter
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
--- OUTSIDE RECORDS SUMMARY | 2022-01-31 09:38 | XMS_ITS | Encounter Summary ---
:1955 Author Organization [facility] Address [address] [place] [address] Care Team Providers Name Role Phone Unavailable Primary Care Provider Unavailable Reason for Visit Reason Onset Date Comments Patient called to schedule cast room 03/23/2018 Encounter Details Date Type Department Care Team Description 03/23/2018 Clinical Department of Anibal Larkin Patient enrique led to Communication Orthopedic Surgery Sudarshan Mckeon schedule cast room in [place] [address] [place], [place] [address] [facility] [place] [address] [place], [place] [phone] (Work) [phone] Social History Tobacco Use Types Packs/Day Years Used Date Smoking Tobacco: Former Cigarettes Quit : 04/07/1987 Smokeless Tobacco: Never Alcohol Habits Answer Date Recorded How often do you have a drink containing 4 or more times a w [place] 07/30/2021 alcohol? How many drinks containing alcohol [...] or relatives? How often do you attend hinduism or Patient refused 2021 episcopal services? Do you belong to any clubs or Yes 07/30/2021 organizations such as hinduism groups, unions, fraternal or athletic groups, or [...] slept in a group home (including now)? Sex Assigned at Date Recorded Female 05/19/2017 11:19 AM LMSW documented as of this encounter Miscellaneous Notes Telephone Encounter - Mario Solorzano - 03/23/2018 2:23 PM CST Patient called to schedule future cast room appt. Please place order. documented in this encounter Plan of Treatment Upcoming Encounters Date Type Specialty Care Team Description 02/02/2022 Immunization Family Medicine 02/12/2022 Office Visit Dermatology Lacy Dykes M.D. [address] [place], [place] [phone] (Wo rk) 02/22/2022 Office Visit Orthopedic Surgery Kimberlyn Alvarez APRN, C.N.P., D.N.P. [address] [place], [place] [phone] (Wo rk) 03/12/2022 Diagnostic Otorhinolaryngology Blanka Carranza, C.N.P. [address] [place], [place] [id number] Aleena Hassan Au.D. [address] [place] [address] documented as of this encounter Visit Diagnoses Diagnosis Follow Up Examination Postoperative Visi t - Primary documented in this encounter Additional Health Concerns Assessment Noted Time PHQ-9 Depression Total Score: 2 04/22/2015 11:24 AM CS T documented as of this encounter
--- OUTSIDE RECORDS SUMMARY | 2022-01-31 09:38 | XMS_ITS | Encounter Summary ---
:1955 Author Organization [facility] Address [address] [place] [address] Care Team Providers Name Role Phone Unavailable Primary Care Provider Unavailable Encounter Details Date Type Department Care Team Description 03/12/2018 Orders Only Department of Orthopedic Jose Negron am Surgery in [facility] [place] [address] [facility] [address] [place] [address] [place] [address] [phone] Social History Tobacco Use Types Packs/Day Years [...] or relatives? How often do you attend voodoo or Patient refused 2021 mandaen services? 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 [address] [place], [place] [phone] (Wo rk) 02/22/2022 Office Visit Orthopedic Surgery Kimberlyn Alvarez APRN, C.N.P., D.N.P. [address] [place], [place] [phone] (Wo rk) 03/12/2022 Diagnostic Otorhinolaryngology Blanka Carranza, C.N.P. [address] [place] [address] Aleena Hassan Au.D. [address] [place] [address] documented as of this encounter Visit Diagnoses Not on filedocumented in this encounter Additional Health Concerns Assessment Noted Time PHQ-9 Depression Total Score: 2 04/22/2015 11:24 AM CS T documented as of this encounter
--- OUTSIDE RECORDS SUMMARY | 2022-01-31 09:38 | XMS_ITS | Encounter Summary ---
:1955 Author Organization [facility] Address [address] [place] [address] Care Team Providers Name Role Phone Unavailable Primary Care Provider Unavailable Reason for Visit Auth/Cert Specialty Diagnoses / Procedures Referred By Contact Refer red To Contact Diagnoses Sprain of metacarpophalangeal joint of right thumb, initial encounter RIGHT thumb UCL advancement Procedures SC NEUROPLAST[facility]NAR NERVE AT [facility] Repair Collateral Ligament Ulnar - Gamekeeper's Thumb, UCL advancement Referral ID Status Reason Start Date Expiration Date Visits Requ ested Visits Authorized [id number] 1 1 Encounter Details Date Type Department Care Team Description 03/12/2018 Surgery RST ROMB MAIN OR Anibal Larkin Y, Repair Collateral [address] M.D. Ligament Ulnar, [place], [place] [address] [place] [address] [place], [place] [phone] (Wo rk) Social History Tobacco Use Types Packs/Day Years Used Date Smoking Tobacco: Former Cigarettes Quit : 04/07/1987 Smokeless Tobacco: Never Alcohol Habits Answer Date Recorded How often do you have a drink containing 4 or more times a w [place] 07/30/2021 alcohol? How many drinks containing alcohol [...] or relatives? How often do you attend mosque or Patient refused 2021 mormon services? 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 documented as of this encounter Last Filed Vital Signs Vital Sign Reading Time Taken Comments Blood Pressure 103/71 03/12/2018 11:05 AM HANDICRAFT OR HOBBY SHOP MANAGER Pulse 58 03/12/2018 11:05 AM HANDICRAFT OR HOBBY SHOP MANAGER Temperature 36.9 ??C (98.4 ??F) 03/12/2018 8:32 AM HANDICRAFT OR HOBBY SHOP MANAGER Respiratory Rate 13 03/12/2018 11:05 AM HANDICRAFT OR HOBBY SHOP MANAGER Oxygen Saturation 90% 03/12/2018 11:05 AM HANDICRAFT OR HOBBY SHOP MANAGER Inhaled Oxygen Concentration - - Weight - - Height 160 cm (5' 3) 03/12/2018 8:32 AM HANDICRAFT OR HOBBY SHOP MANAGER Body Mass Index - - documented in this encounter Discharge Instructions Discharge InstructionsJerardo Negron IV, M.D. - 03/12/2018 11:01 AM HANDICRAFT OR HOBBY SHOP MANAGER SURGICAL DRESSING: The patient has a surgical dressing that was placed intra- operatively on the involved upper extremity. This dressing should remain in place until follow-up with your local surgeon/Dr. Larkin/Dr. Grant and should be kept clean and dry. The dressings will be removed at that time. Call the hospital beveling machine operator ([phone]) and ask for Dr. Larkin/'s service if you experience signs/symptoms of possible wound infection. These include, but are not limited to; increased redness, warmth, pain, tenderness, swelling, or drainage from the skin area that you can see. This also includes, but is not limited to, nausea and vomiting, shakes or chills, or fever greater than 101.5 degrees F. If any of these occur, the patient should notify Dr. Larkin/'s Orthopaedic surgical service via the [facility] beveling machine operator ([phone]), a local emergency room, or your local primary care physician. ACTIVITY: The patient should continue to be non-weightbearing on the involved upper extremity until returning to clinical follow-up with Dr. Larkin/. Please continue to wear the splint at all timesas directed. NARCOTIC PAIN MEDICATION: The patient may require narcotic pain medication (Percocet, Oxycodone, Vicodin, etc) for several days after dismissal from the hospital. These medications may cause symptoms such as drowsiness, confusion, nausea, and constipation. The patient is encouraged to not use these medications any longer than necessary, as they may be addictive if used over an extended time period. The patient should take a stool softener (Colace, Senna) while on narcotic pain medication to help prevent constipation. This is available over the counter. In addition, the patient is advised not to operate any motorized vehicle or heavy machinery while taking a narcotic medication. After 5-7 days, a narcotic pain medication should no longer be required. If a refill is needed, please be aware that narcotic medications cannot be refilled after hours or on weekends. Please plan on a one to two day period for prescription refills to be completed. Tylenol, available over the counter, may also safely be taken for ongoing pain control. In most patients, one gram of Tylenol can be taken safely every 6 to 8 hours. Do not exceed more than 4 grams of Tylenol per day in order to reduce the risk of liver toxicity. Be aware that some narcotic pain medications contain Tylenol. ICRAFT OR HOBBY SHOP MANAGER documented in this encounter Medications at Time of Discharge Medication Sig Dispensed Refills Start Date End Date SYNTHROID 175 mcg tablet Take 1 tablet by 0 09/11 mouth daily. atorvastatin (LIPITOR) Take 1 tablet by 0 [...] disintegrating tablet hours as needed for nausea. traZODone (DESYREL) 50 Take 1 tablet by [...] 08/18/201502/07 daily documented as of this encounter H&P Notes Jerardo Negron IV, M.D. - 03/12/2018 9:14 AM CST INTERVAL HISTORY AND PHYSICAL PRE-PROCEDURE UPDATE H&P reviewed. The patient was examined and there are no significant changes to the H&P. Sergio Negron M.D. ICRAFT OR HOBBY SHOP MANAGER Source Note - Chano Ibarra M.D. - 03/12/2018 9:01 AM HANDICRAFT OR HOBBY SHOP MANAGER Anesthesia Pre-Evaluation Pertinent components of the patient's history including current problem list, medical history, surgical history, family history, social history, medications and allergies were reviewed and updated as appropriate. The patient was examined and the Pre-op diagnosis, planned procedure, and H&P were reviewed and remain unchanged. PROBLEM LIST Relevant Problems CV (+) Hypertension NOS ENDO (+) Hypothyroidism Other (+) Depression/Beckie/Bipolar NOS (+) Dysthymia (+) Hyperlipidemia OBJECTIVE PHYSICAL EXAMINATION Airway (HEENT) Mallampati: II TM Distance: >3 FB Neck ROM: Full Mouth Opening: >3 cm Facies (pediatrics): normal Cardiovascular Rhythm: Regular Rate: Normal Cardiovascular Assessment: cardiovascular normal Functional Capacity: >4 METS Pulmonary Pulmonary Assessment: Clear Neurological Neurologic Assessment:??alert and alert and oriented x 3 Dental Dental Assessment: dentition intact General / Constitutional Constitutional Assessment: Normal ASSESSMENT / PLAN ANESTHESIA PLAN ASA: 2 Anesthesia Plan: regional Patient seen and allergies reviewed; anesthesia plan and risks discussed directly with patient / legal guardian, or through an supervisor coke handling; patient evaluated and approved for anesthesia / sedation. Use of blood products discussed with patient who consented to blood products. ICRAFT OR HOBBY SHOP MANAGER documented in this encounter OR Notes Op Note - Kiran Varela M.D. - 03/12/2018 10:03 AM CST FULL OP NOTE Procedure(s): Repair Collateral Ligament Ulnar, Skier's Thumb (Right) Surgeon(s): Anibal Larkin M.D. Anesthesia Type: Regional Pre-Operative Diagnosis: RIGHT thumb ulnar collateral ligament advancement. Post-Operative Diagnosis: Same as pre-operative diagnosis Findings: As expected Complications: None Description of Procedure: In the supine position the right upper extremity was prepped and draped in sterile fashion. After exsanguination the axillary tourniquet was inflated to 250 mm Hg. Upon examination the thumb MP joint was again found to be lax. A radially based skin flap was designed over the dorsal ulnar thumb base toallow for maximum exposure. A skin flap was raised and reflected radially with care taken to identify and protect radial sensory nerve branches. A Prolene suture was used to hold the skin flap in place. Next the extensor pollicis brevis tendon was identified and sharply divided longitudinally. The ulnar half of the tendon along with the sagittal band was then reflected off the the joint capsule ulnarly. The capsule was divided longitudinally to expose the ulnar collateral ligament, which was found to be still inserted onto the base of P1 but avulsed from the metacarpal head. Soft tissue from the ulnar collateral recess of the metacarpal head was sharply debrided allowing for placement of two bone anchor sutures into the collateral recess. With the joint reduced in neutral position, the ulnar collateral ligament was advanced proximally and secured to the ulnar collateral recess of the metacarpal head using the 2 bone anchor sutures. The joint capsule was closed to the extent possible. The EPB tendon was then repaired with 4 0 Ethibond [id number]-[id number] sutures thereby also reapproximating the sagittal band. The tourniquet was deflated and careful hemostasis achieved with bipolar cautery. The skin incision was closed with 4 0 Monocryl [id number]-yukff sutures. The incision was dressed with Xeroform gauze and fluffs and a thumb spica splint was placed with the thumb in neutral position. Patient was then escorted to the PACU in good condition Specimens * No specimens in log * Drains * No drains in log * Estimated Blood Loss 5 mL Implants Implant Name Type Inv. Item Serial No. Carbide Powder Processor Lot No. LRB No. Used Action ANCH SUT CRK SCRW FT 2.2 - [id number] Hardware e.g. pins/screws/rods ANCH SUT CRK SCRW FT 2.2 Arthrex Right 1 Implanted ANCH SUT CRK SCRW FT 2.2 - [id number] Hardware e.g. pins/screws/rods ANCH SUT CRK SCRW FT 2.2 [employer]threx Right 1 Implanted Kiran Varela M.D. ICRAFT OR HOBBY SHOP MANAGER Brief Op Note - Jerardo Negron IV, M.D. - 03/12/2018 10:03 AM HANDICRAFT OR HOBBY SHOP MANAGER BRIEF OP NOTE Procedure(s): Repair Collateral Ligament Ulnar, Skier's Thumb (Right) Surgeon(s): Anibal Larkin M.D. Anesthesia Type: Regional Pre-Operative Diagnosis: RIGHT thumb ulnar collateral ligament advancement. Brief Operative Note Details Specimens * No specimens in log * Drains * No drains in log * Estimated Blood Loss 5 mL Implants Implant Name Type Inv. Item Serial No. Carbide Powder Processor Lot No. LRB No. Used Action ANCH SUT CRK SCRW FT 2.2 - [id number] Hardware e.g. pins/screws/rods ANCH SUT CRK SCRW FT 2.2 [employer] Right 1 Implanted ANCH SUT CRK SCRW FT 2.2 - [id number] Hardware e.g. pins/screws/rods ANCH SUT CRK SCRW FT 2.2 [employer] Right 1 Implanted Sergio Negron M.D. ICRAFT OR HOBBY SHOP MANAGER documented in this encounter Plan of Treatment Upcoming Encounters Date Type Specialty Care Team Description 02/02/2022 Immunization Family Medicine 02/12/2022 Office Visit Dermatology Lacy Dykes M.D. [address] [place], [place] [phone] (Wo rk) 02/22/2022 Office Visit Orthopedic Surgery Kimberlyn Alvarez, JOSE DANIEL, C.N.P., D.N.P. [address] [place], [place] [phone] (Wo rk) 03/12/2022 Diagnostic Otorhinolaryngology Blanka Carranza, C.N.P. [address] [place], [place] [phone] Aleena Hassan Au.D. [address] [place] [phone] documented as of this encounter Procedures Procedure Name Priority Date/Time Associated Comments Diagnosis FL FLUORO LESS RAD - Routine 03/12/2018 10:46 Results for this THAN 1 HOUR (most inpatients AM HANDICRAFT OR HOBBY SHOP MANAGER procedure a re in and all the results outpatients) section. REPAIR COLLATERAL 03/12/2018 9:29 RIGHT thumb ulnar LIGAMENT ULNAR - AM HANDICRAFT OR HOBBY SHOP MANAGER collateral GAMEKEEPER'S THUMB ligament advancement. documented in this encounter Results FL Fluoro Less Than 1 Hour (03/12/2018 10:46 AM HANDICRAFT OR HOBBY SHOP MANAGER) Specimen (Source) Anatomical Location Collection Method / Collectio n Time Received Time / Laterality Volume Narrative 152 [facility]OS [facility] R[facility] - 03/12/2018 10:48 AM CS T This exam does not require a radiologist review or interpretation. Please refer to the patient's medical record on this date for clinical details. Darrell Gaspar APRNNGavino FARIAS FLUOROSCOPY PROCEDURE S Performing Organization Address City/State/ZIP Code Phon e Number [phone] [facility] documented in this encounter Visit Diagnoses Not on filedocumented in this encounter Administered Medications Inactive Administered Medications - up to 3 most recent administrations Medication Order MAR Action Action Date Dose Rate Site acetaminophen tablet 1,000 mg Given 03/12/2018 8:50 AM HANDICRAFT OR HOBBY SHOP MANAGER 1,000 mg (TYLENOL) 1,000 mg, oral, Once, On Taniya 03/12/18 at 0900, For 1 dose, Pre-Op celecoxib capsule 400 mg (CeleBREX) Given 03/12/2018 8:51 AM HANDICRAFT OR HOBBY SHOP MANAGER 400 mg 400 mg, oral, Once, On Taniya 18 at 0900, For 1 dose, Pre-Op fentaNYL injection 50 mcg (SUBLIMAZE) Given 03/12/2018 9:13 AM HANDICRAFT OR HOBBY SHOP MANAGER 50 mcg 50 mcg, intravenous, Every 2 min PRN, sedation, Starting on Taniya 03/12/18 at 0825, For 2 doses, Pre-Op lactated ringers Continued from OR 03/12/2018 11:05 AM 20 mL/hr 20 mL/hr 20 mL/hr, intravenous, HANDICRAFT OR HOBBY SHOP MANAGER Continuous, Starting on Taniya 03/12/18 at 1015, PACU & Post-Op midazolam (PF) injection 1 mg (VERSED) Given 03/12/2018 9:13 AM HANDICRAFT OR HOBBY SHOP MANAGER 2 mg 1 mg, intravenous, Every 2 min PRN, sedation, Starting on Taniya 03/12/18 at 0825, For 2 doses, Pre-Op scopolamine base 1 mg Medication Applied 03/12/2018 8:50 AM 1 patch Behind Right over 3 days 1 patch HANDICRAFT OR HOBBY SHOP MANAGER Ear (TRANSDERM SCOP) 1 patch, transdermal, Administer over 72 Hours, Once as needed, nausea, vomiting, Starting on Taniya 03/12/18 at 0848, For 1 dose, Pre-Op documented in this encounter Active and Recently Administered Medications Times are shown in HANDICRAFT OR HOBBY SHOP MANAGER. Scheduled Medication Order 03/10/2018 03/11/2018 03/12/2018 acetaminophen injection 1,000 mg (OFIRMEV) 0915 (Due) 1,000 mg, intravenous, at 400 mL/hr, Adm inister over 15 Minutes, Once, Taniya 03/12/18 at 0915, For 1 dose, PACU (only), Oral unless RASS less than -1 or nausea/vomiting. Do not use if given in last 6 hours , Restriction Criteria (Pharmacy will re view and approve if criteria met): Unable to take or tolerate medications administered via the enteral route or orally (not just NPO) acetaminophen tablet 1,000 mg (TYLENOL) (COMPLETED) 0850 (Given - Provider: Kimberly Means R.N.) 1,000 mg, oral, Once, On Taniya 03/12/18 at 0900, For 1 dose, Pre-Op acetaminophen tablet 1,000 mg (TYLENOL) 914 (Due) 1,000 mg, oral, Once, Taniya 03/12/18 at 091 5, For 1 dose, PACU (only), Oral unless RASS less than -1 or nausea/vomiting. Do not use if given in last 6 hours celecoxib capsule 400 mg (CeleBREX) (COMPLETED) 0851 (Given - Provider: Kimberly Means R.N.) 400 mg, oral, Once, On Taniya 03/12/18 at 0900, For 1 dose, Pre-Op Continuous Medication Order 03/10/2018 03/11/2018 03/12/2018 lactated ringers 1105 (Continued from OR - Provider: Jenise Antoine R.N.) 20 mL/hr, intravenous, Continuous, Start ing on Taniya 18 at 1015, PACU & Post-Op PRN Medication Order 03/10/2018 03/11/2018 03/12/2018 dexamethasone injection 4 mg (DECADRON) 4 mg, intravenous, Once as needed, nause a, vomiting, Starting Taniya 12/18 at 0902, For 1 dose, PACU (only), Give only if NOT given during the pre or intraoperative period. If ondansetron ordered, give dexamethasone with first dose of ondansetron. droperidol injection 0.625 mg (INAPSINE) 0.625 mg, intravenous, Every 6 hours PRN , nausea, vomiting, Starting Taniya 1218 at 0902, For 48 hours, PACU (only), Total of 3 doses in 24 hour period. RASS must be -2 or higher to administer. Reassess for nausea or vomiting after at least 1 0 minutes. If nausea or vomiting persists administer next ordered antiemetic medications (order for antiemetic medication administration ondansetron then droperidol then promethazine). fentaNYL injection 25 mcg (SUBLIMAZE) 25 mcg, intravenous, Every 2 min PRN, mo derate pain or score 4-6 of 10, severe pain or score 7-10 of 10, Starting Taniya 1218 at 0903, PACU (only), Up to maximum total dose of 200 mcg fentaNYL injection 50 mcg (SUBLIMAZE) (CANCELED) 912 (Given - Provider: Kimberly Means R.N.) 50 mcg, intravenous, Every 2 min PRN, se dation, Starting on Taniya 1218 at 0825, For 2 doses, Pre-Op midazolam (PF) injection 1 mg (VERSED) (CANCELED) 912 (Given - Provider: Kimberly Means R.N. - Comment: per Dr Sunny Guerrero) 1 mg, intravenous, Every 2 min PRN, rafael tion, Starting on Taniya 1218 at 0825, For 2 doses, Pre-Op ondansetron (PF) injection 4 mg (ZOFRAN) 4 mg, intravenous, Every 6 hours PRN, na usea, vomiting, Starting Taniya 12/18 at 0902, For 48 hours, PACU (only), Reassess for nausea or vomiting after at least 10 minutes. If nausea or vomiting persists administer next ordered antiemetic medi cations (order for antiemetic medication administration ondansetron then droperidol then promethazine). scopolamine base 1 mg over 3 days 1 patch (TRANSDERM SCOP) 0850 (Medication Applied - Provider: Kimberly Means R.N.)8795 (Due: Medication Removed - Provider: Discharge Provider, Automatic - Comment: Time automatically adjusted from order being discontinued) 1 patch, transdermal, Administer over 72 Hours, Once as needed, nausea, vomiting, Starting on Taniya 03/12/18 at 0848, For 1 dose, Pre-Op documented in this encounter Additional Health Concerns Assessment Noted Time PHQ-9 Depression Total Score: 2 04/22/2015 11:24 AM CS T documented as of this encounter
--- OUTSIDE RECORDS SUMMARY | 2022-01-31 09:38 | XMS_ITS | Encounter Summary ---
:1955 Author Organization [facility] Address [address] [place] [address] Care Team Providers Name Role Phone Unavailable Primary Care Provider Unavailable Reason for Referral Outpatient (Routine) - Closed Specialty Diagnoses / Procedures Referred By Contact Refer red To Contact Diagnoses Pain Knee Bilateral Kimberlyn Mayer APRN, [facility] [place] [facility] Procedures Large Joint Injection C.N.P., D.N.P. [address] [place] [phone] Referral ID Status Reason Start Date Expiration Date Visits Requ ested Visits Authorized [id number] Closed 12/16/2017 12/16/2018 1 0 utpatient (Routine) - Closed Specialty Diagnoses / Procedures Referred By Contact Refer red To Contact Diagnoses Pain Knee Bilateral Kimberlyn Mayer APRN, [facility] [place] [facility] Procedures Large Joint Injection C.N.P., D.N.P. [address] [place] [phone] Referral ID Status Reason Start Date Expiration Date Visits Requ ested Visits Authorized [id number] Closed 12/16/2017 12/16/2018 1 0 Reason for Visit Reason Comments Injection Visit 3rd euflexxa bilateral knees Pain Pain Auth/Cert Specialty Diagnoses / Procedures Referred By Contact Refer red To Contact Diagnoses Pain in right knee Pain in right knee Procedures OK ARTHCS ASP/INJ MJR JT WO US OK EUFLEXXA 20MG Euflexxa Injection Referral ID Status Reason Start Date Expiration Date Visits Requ ested Visits Authorized [id number] 1 1 Encounter Details Date Type Department Care Team Description 12/16/2017 Office Visit Department of Kimberlyn Mayer, Pain Knee B ilateral Orthopedic Surgery in [place], (Prim radha Dx) Michelet Wagoner D.N.P. [address] [place] [phone] Social History Tobacco Use Types Packs/Day Years Used Date Smoking Tobacco: Former Cigarettes Quit : 04/07/1987 Smokeless Tobacco: Never Alcohol Habits Answer Date Recorded How often do you have a drink containing 4 or more times a w [place] 07/30/2021 alcohol? How many drinks containing alcohol [...] or relatives? How often do you attend gnosticism or Patient refused 2021 hindu services? Do you belong to any clubs or Yes 07/30/2021 organizations such as gnosticism groups, unions, fraternal or athletic groups, or [...] or slept in a alf (including now)? Sex Assigned at Date Recorded Female 05/19/2017 11:19 AM [employer] documented as of this encounter Progress Notes Kimberlyn Mayer APRN, C.N.P., D.N.P. - 12/16/2017 1:15 PM CDT Priscilla is a 62-year-old woman who has been dealing with bilateral knee DJD. ??She still has problems with persistent pain in both of her knees. She has tried pharmacologic as well as non pharmacologicmethods for her knee pain without significant improvement. She follows a physical therapy program without improvement. ??She has been taking anti-inflammatories regularly with only very temporary minimal improvement in her symptoms as well. She is here for viscosupplementation injections. ??However, she notably does have an allergic reaction with previous pseudoseptic reaction to Synvisc in the past.??Therefore, we decided proceed with Euflexxa injections. ??Her knees were prepped with iodine. ??Needle was then placed in the lateral aspect of each knee. ??Injection of 1 standard unit of Euflexxa was placed in each knee. ??She tolerated this well. ??We will plan to see her back if her symptoms don't improve in the coming weeks. documented in this encounter Procedure Notes Loreta Crowell R.N. - 12/16/2017 1:15 PM CDTAssociated Order(s): LARGE JOINT INJECTION Post-Procedure Diagnose(s): Pain Knee Bilateral Knee injection Date/Time: 12/16/2017 1:40 PM Performed by: KIMBERLYN MAYER Authorized by: KIMBERLYN MAYER Wet Room Supervisor utilized: adjunct sociology professor not needed Risks discussed with: patient Procedural risks discussed, including (but not limited to) the following: allergic reaction, transient increased pain, possible continued pain, reaction to medication and infection Consent obtained: written Procedure purpose: therapeutic Skin preparation: povidone-iodine Anesthesia method: none Procedure location: knee - Knee site: R knee joint Site prep: patient was prepped and draped in usual sterile fashion Procedural approach: anterolateral Needle gauge: 22 G The following medications were administered at the target site(s): Local anesthetic: 3 mL lidocaine (PF) 10 mg/mL (1 %) Viscosupplement: 20 mg sodium hyaluronate (viscosup) 10 mg/mL(mw 2.4 -3.6 million) Procedure completed successfully: yes Complications: no apparent complications Post-procedure instructions: avoid strenuous activity for 5 days Discharge instructions: dressing care and follow-up with ordering provider Loreta Crowell R.N. - 12/16/2017 1:15 PM CDTAssociated Order(s): LARGE JOINT INJECTION Post-Procedure Diagnose(s): Pain Knee Bilateral Knee injection Date/Time: 12/16/2017 1:41 PM Performed by: KIMBERLYN MAYER Authorized by: KIMBERLYN MAYER Wet Room Supervisor utilized: adjunct sociology professor not needed Risks discussed with: patient Procedural risks discussed, including (but not limited to) the following: allergic reaction, transient increased pain, possible continued pain, reaction to medication and infection Consent obtained: written Procedure purpose: therapeutic Skin preparation: povidone-iodine Anesthesia method: none Procedure location: knee - Knee site: L knee joint Procedural approach: anterolateral Needle gauge: 22 G The following medications were administered at the target site(s): Local anesthetic: 3 mL lidocaine (PF) 10 [...] Dermatology Lacy Dykes M.D. [address] [place], [place] [phone] (Wo rk) 02/22/2022 Office Visit Orthopedic Surgery Kimberlyn Mayer, JOSE DANIEL, C.N.P., D.N.P. [address] [place], [place] [phone] (Wo rk) 03/12/2022 Diagnostic Otorhinolaryngology Blanka Carranza C.N.P. [address] [place], [place] [phone] Aleena Hassan Au.D. [address] [place] [address] documented as of this encounter Procedures Procedure Name Priority Date/Time Associated Diagnosis Comme nts OK ARTHCS ASP/INJ Routine 12/16/2017 1:15 PM Pain Knee Bilater al Results for this MJR JT WO US CDT procedure are i n the results section. OK ARTHCS ASP/INJ Routine 12/16/2017 1:15 PM Pain Knee Bilater al Results for this MJR JT WO US CDT procedure are i n the results section. documented in this encounter Results OK ARTHCS ASP/INJ MJR JT WO US (12/16/2017 1:15 PM CDT) Narrative MMODAL - 12/16/2017 1:15 PM CDT Loreta Crowell R.N. ? 12/16/2017 ??5:54 PM Knee injection Date/Time: 12/16/2017 1:41 PM Performed by: KIMBERLYN MAYER Authorized by: KIMBERLYN MAYER Wet Room Supervisor utilized: adjunct sociology professor not ne eded ?? Risks discussed with: patient Procedural risks discussed, including (b ut not limited to) the following: allergic reaction, transient increased p ain, possible continued pain, reaction to medication and infection Consent obtained: written Procedure purpose: therapeutic Skin preparation: povidone-iodine Anesthesia method: none Procedure location: knee - Knee site: L knee joint Procedural approach: anterolateral Needle gauge: 22 G The following medications were administe red at the target site(s): ??Local anesthetic: 3 mL lidocaine (PF) 10 mg/mL (1 %) ??Viscosupplement: 20 mg sodium hyaluro angélica (viscosup) 10 mg/mL(mw 2.4 -3.6 million) Procedure completed successfully: yes Complications: no apparent complications ?Post-procedure instructions: avoid st renuous activity for 5 days ??Discharge instructions: dressing care and follow-up with ordering provider Kimberlyn Mayer APRN, C.N.P., D.N.P. PROCEDURE/MINOR CONNOR GICAL ORDERABLES Performing Organization Address City/State/ZIP Code Phon e Number MMODAL MMODAL NA OK ARTHCS ASP/INJ MJR JT WO US (12/16/2017 1:15 PM CDT) Narrative MMODAL - 12/16/2017 1:15 PM CDT Loreta Crowell R.N. ? 12/16/2017 ??5:54 PM Knee injection Date/Time: 12/16/2017 1:40 PM Performed by: KIMBERLYN MAYER Authorized by: KIMBERLYN MAYER Wet Room Supervisor utilized: adjunct sociology professor not ne eded ?? Risks discussed with: patient Procedural risks discussed, including (b ut not limited to) the following: allergic reaction, transient increased p ain, possible continued pain, reaction to medication and infection Consent obtained: written Procedure purpose: therapeutic Skin preparation: povidone-iodine Anesthesia method: none Procedure location: knee - Knee site: R knee joint Site prep: patient was prepped and drape d in usual sterile fashion ?? Procedural approach: anterolateral Needle gauge: 22 G The following medications were administe red at the target site(s): ??Local anesthetic: 3 mL lidocaine (PF) 10 mg/mL (1 %) ??Viscosupplement: 20 mg sodium hyaluro angélica (viscosup) [...] lidocaine (PF) 10 mg/mL (1 %) Given 12/16/2017 1:40 PM CDT 3 mL injection 3 mL (XYLOCAINE) 3 mL, infiltration, One-Time Injection, Starting on Fri12/16/17 at 1340, For 1 dose lidocaine (PF) 10 mg/mL (1 %) injection 3 mL Given 12/16/2017 1: 41 PM CDT 3 mL (XYLOCAINE) 3 mL, infiltration, One-Time Injection, Starting on Fri12/16/17 at 1341, For 1 dose sodium hyaluronate (viscosup) injection 20 mg Given 1:40 PM CDT 20 mg (EUFLEXXA) 20 mg, intra-articular, One-Time Injection, Starting on Fri12/16/17 at 1340, For 1 dose sodium hyaluronate (viscosup) injection 20 mg Given 1:41 PM CDT 20 mg (EUFLEXXA) 20 mg, intra-articular, One-Time Injection, Starting on Fri12/16/17 at 1341, For 1 dose documented in this encounter Additional Health Concerns Assessment Noted Time PHQ-9 Depression Total Score: 2 04/22/2015 11:24 AM CS T documented as of this encounter
--- OUTSIDE RECORDS SUMMARY | 2022-01-31 09:38 | XMS_ITS | Encounter Summary ---
:1955 Author Organization [facility] Address [address] [place] [address] Care Team Providers Name Role Phone Unavailable Primary Care Provider Unavailable Encounter Details Date Type Department Care Team Description 10/30/2017 Orders Only Department of Orthopedic Kimberlyn Alvarez APRN, Surgery in [place], C.N.P., D.N .P. [address] [place] [address] [place] [address] [phone] Social History Tobacco Use Types Packs/Day Years Used Date Smoking Tobacco: Former Cigarettes Quit : 04/07/1987 Smokeless Tobacco: Never Alcohol Habits Answer Date Recorded How often do you have a drink containing 4 or more times a w [place] 07/30/2021 alcohol? How many drinks containing alcohol [...] or relatives? How often do you attend mormon or Patient refused 2021 scientology services? Do you belong to any clubs or Yes 07/30/2021 organizations such as mormon groups, unions, fraternal or athletic groups, or [...] or slept in a long-term (including now)? Sex Assigned at Date Recorded Female 05/19/2017 11:19 AM [employer] documented as of this encounter Plan of Treatment Upcoming Encounters Date Type Specialty Care Team Description 02/02/2022 Immunization Family Medicine 02/12/2022 Office Visit Dermatology Lacy Dykes M.D. [address] [place], [place] [phone] (Wo rk) 02/22/2022 Office Visit Orthopedic Surgery Kimberlyn Alvarez, JOSE DANIEL, C.N.P., D.N.P. [address] [place], [place] [phone] (Wo rk) 03/12/2022 Diagnostic Otorhinolaryngology Blanka Carranza, C.N.P. [address] [place] [address] Aleena Hassan Au.D. [address] [place] [address] documented as of this encounter Visit Diagnoses Not on filedocumented in this encounter Additional Health Concerns Assessment Noted Time PHQ-9 Depression Total Score: 2 04/22/2015 11:24 AM CS T documented as of this encounter
--- OUTSIDE RECORDS SUMMARY | 2022-01-31 09:38 | XMS_ITS | Encounter Summary ---
:1955 Author Organization [facility] Address [address] [place] [address] Care Team Providers Name Role Phone Unavailable Primary Care Provider Unavailable Reason for Visit Reason Comments Follow-up Patient here for Left knee M RI results. Outpatient (Routine) - Closed Specialty Diagnoses / Procedures Referred By Contact Refer red To Contact Orthopedic Surgery Kimberlyn Alvarez, DRIVER MATERIAL HANDLER, [facility] C.N.P., D.N.P. [address] [place] [phone] Referral ID Status Reason Start Date Expiration Date Visits Requ ested Visits Authorized [id number] Closed 10/14/2017 10/14/2018 1 1 Encounter Details Date Type Department Care Team Description 10/21/2017 Office Visit Department of Cedric Sweeney, Veena houston Left Orthopedic Surgery in M.D. (Primary Dx) Mears, [address] [place] [address] [address] [place], [place] [phone] [address] (Work) [phone] Social History Tobacco Use Types Packs/Day Years Used Date Smoking Tobacco: Former Cigarettes Quit : 04/07/1987 Smokeless Tobacco: Never Alcohol Habits Answer Date Recorded How often do you have a drink containing 4 or more times a w [place] 07/30/2021 alcohol? How many drinks containing alcohol [...] or relatives? How often do you attend sikh or Patient refused 2021 quaker services? 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 - 10/21/2017 2:30 PM CDT HISTORY OF PRESENT ILLNESS Priscilla is a 60-year-old woman who is here in regard to her knees. She is status post right knee ACLreconstruction and meniscectomy. She was noted to have some moderate degenerative changes at that point in time, and has worked with Physical Therapy for her recovery from this. In addition to that, she has worked with Physical Therapy also for her left knee as this has been bothering her to some extent in trying to continue rehabilitating both of these knees at the same time. She reports the left knee has remained somewhat painful and an MRI was obtained and she is here to discuss the results of this. DIAGNOSTICS The MRI of her left knee demonstrates a horizontal oblique tear of the medial meniscal body and posterior horn. Her lateral meniscus appears to be intact, but there are tricompartmental degenerative changes with some subchondral edema noted. ASSESSMENT / PLAN Priscilla is a 60-year-old woman who has bilateral knee pain and has degenerative changes in both of her knees. In addition to this, she also has a medial meniscus tear. I discussed with her the treatment options. At this point in time, for her left knee we could consider the possibility of knee arthroscopy and meniscectomy. We could also consider the possibility of injection treatment. Given the fact that she has tried a physical therapy program for both her right knee and left, and has tried medication management, including anti-inflammatory medications for an extended period of time, it may be reasonable to consider hyaluronic acid viscosupplementation injections for both of her knees. At this point in time, we will seek approval for viscosupplementation injections for both of her knees. If thisis approved, we will proceed with this, but at some point in time, the left knee may be benefit fromknee arthroscopy and meniscectomy. We will plan to see her back when the injections are approved for her viscosupplementation. The patient's visit today was 22 minutes long with 15 minutes of counseling for treatment options for her bilateral knee osteoarthritis. documented in this encounter Plan of Treatment Upcoming Encounters Date Type Specialty Care Team Description 02/02/2022 Immunization Family Medicine 02/12/2022 Office Visit Dermatology Lacy Dykes M.D. [address] [place], [place] [phone] (Lisha mccann) 02/22/2022 Office Visit Orthopedic Surgery Kimberlyn Alvarez APRN, C.N.P., D.N.P. [address] [place], [place] [phone] (Lisha mccann) 03/12/2022 Diagnostic Otorhinolaryngology Blanka Carranza C.N.P. [address] [place] [address] Aleena Hassan Au.D. [address] [facility] [address] documented as of this encounter Visit Diagnoses Diagnosis Pain Knee Left - Primary documented in this encounter Additional Health Concerns Assessment Noted Time PHQ-9 Depression Total Score: 2 04/22/2015 11:24 AM CS T documented as of this encounter
--- OUTSIDE RECORDS SUMMARY | 2022-01-31 09:38 | XMS_ITS | Encounter Summary ---
:1955 Author Organization [facility] Address [address] [place] [address] Care Team Providers Name Role Phone Unavailable Primary Care Provider Unavailable Encounter Details Date Type Department Care Team Description 11/27/2017 Clinical Communication Department of Anibal Larkin , Orthopedic Surgery [place] [address] [place], [place] [address] [facility] [address] [place], [place] [phone] (Wo rk) [address] [phone] Social History Tobacco Use Types Packs/Day Years [...] you attend amish or Patient refused 2021 zoroastrianism services? Do [...] place to sleep or slept in a skilled nursing (including now)? Sex Assigned at Date Recorded Female 05/19/2017 11:19 AM [employer] documented as of this encounter Plan of Treatment Upcoming Encounters Date Type Specialty Care Team Description 02/02/2022 Immunization Family Medicine 02/12/2022 Office Visit Dermatology Lacy Dykes M.D. [address] [place], [place] [phone] (Wo rk) 02/22/2022 Office Visit Orthopedic Surgery Kimberlyn Alvarez APRN, C.N.P., D.N.P. [address] [place], [place] [phone] (Wo rk) 03/12/2022 Diagnostic Otorhinolaryngology Blanka Carranza, C.N.P. [address] [place] [address] Aleena Hassan Au.D. [address] [place] [address] documented as of this encounter Results DX Thumb Right (01/27/2018 2:43 PM CDT) Anatomical Region Laterality Modality Upper Extremity, Fingers, Musculoskeletal RST LOS, Right Digital Radiography Musculoskeletal ARZ LOS, Muskuloskeletal FLA LOS Specimen (Source) Anatomical Collection Method Collection Time Re ceived Time Location / / Volume Laterality 01/27/2018 3:11 PM CDT Impressions 01/27/2018 3:13 PM CDT IMPRESSION: ??Moderate degenerative changes of the thumb and wrist, not significantly changed since 04/03/2016. Narrative 01/27/2018 3:13 PM CDT EXAM: ??DX THUMB RIGHT Procedure Note Elia Branham M.D. - 01/27/2018Format ting of this note might be different from the original. EXAM: DX THUMB RIGHT IMPRESSION: Moderate degenerative change s of the thumb and wrist, not significantly changed since 04/03/2016. Ella Solorzano APRN, C.N.P. IMG DIAGNOSTIC IMAGING CT OCEDURES documented in this encounter Visit Diagnoses Diagnosis Pain Thumb Right - Primary Pain Thumb Right documented in this encounter Additional Health Concerns Assessment Noted Time PHQ-9 Depression Total Score: 2 04/22/2015 11:24 AM CS T documented as of this encounter
--- OUTSIDE RECORDS SUMMARY | 2022-01-31 09:38 | XMS_ITS | Encounter Summary ---
:1955 Author Organization [facility] Address [address] [place] [address] Care Team Providers Name Role Phone Unavailable Primary Care Provider Unavailable Reason for Visit Auth/Cert Specialty Diagnoses / Procedures Referred By Contact Refer red To Contact Diagnoses Sprain of metacarpophalangeal joint of right thumb, initial encounter RIGHT thumb UCL advancement Procedures [place] NEUROPLASTYULNAR NERVE AT WRST Repair Collateral Ligament Ulnar - Gamekeeper's Thumb, UCL advancement Referral ID Status Reason Start Date Expiration Date Visits Requ ested Visits Authorized [id number] 1 1 Encounter Details Date Type Department Care Team Description 03/12/2018 Anesthesia Event RST ROMB Chano Cotter M.D. [address] [place] [address] 12[address] [facility] Humberto Estrada M.D. [address] [place] [phone] [place] [address] Anesthesia Record Procedure Summary Procedure Name Responsible Anesthesia Start Anesthesia Stop Anesthesiologist Time Time Repair Collateral Chano Ibarra M.D. 03/12/18 0917 8 1114 Ligament Ulnar, Skier's Thumb (Right) Events Date Time Event Comment 03/12/2018 0902 0917 An Start Machine/Equipmen t Checked Infection Precautions Foll owed Procedure/Site Verified NPO Sta tus Verified Supine Standard ASA Mon itors Applied 0917 An Pause 0946 Quick Note IN OR 409 0949 In Room 0949 An Start Data 0959 Turnover to Proceduralist 1003 Proc Start 1008 Quick Note BP cuff on RLE w ith lower readings than arm. Unable to a ttach vitals from device. 1019 an maria l now Checked BP on STANISLAV E with normal map. Returned cuff to LLE give n discomfort with inflation on arm 1049 an maria l now Recheck on UE ar m for BP after closure. 1050 Turnover to ANE Staff 1055 an stop data 1055 Proc Fin 1100 Out of Room 1114 An End I completed my h andoff to the receiving staff during [facility] we 1. Identified the patient 2. Ident ified the responsible provider 3. Revi ewed the pertinent medical history 4. Discu ssed the surgical course 5. Reviewed intra-o p anesthesia management and issues during an esthesia 6. Set expectations for post-procedure period 7. Allowed opportun ity for questions and acknowledgement of understanding. Name Total mepivacaine PF 1.5% injection 25 mL EPINEPHrine 0.1 mg/mL Regional 15 mcg propofol 10 mg/mL infusion 392.7 mg propofol 10 mg/mL injection 20 mg ondansetron PF 4 mg/2 mL injection 4 mg ceFAZolin 2 g dexamethasone 4 mg/mL injection 4 mg ePHEDrine PF 5 mg/mL syringe injection 5 mg Lactated Ringers Free Drip 600 mL Agents No agents on file. Blood No blood administrations on file. Lines, Drains, and Airways Type Details Placement Removal (RETIRED) Incision 05/28/17; 1006; Knee; 05/28/17 1006 by 1418 by Right; mastisol; Rivas Riojas, RPhilN. [facility]-Background ADAPTIC 3X3, STRP STRS , Schedul ing Automated SKNCLSR NWVN 4X0.5, Batch Job CAST PADDING WEBRIL 4IN, BNDG LINDA BAND NSTRL 11YDX6; 12/26/20 (Removed by background completion utility); 1418 (Removed by background completion utility) Peripheral IV Placement Date: 03/12/18 0915 by 03/12/18 1145 b y 12/06/18; Placement Dilma Schafer M.D. Lindquis t, Jennifer L, Time: 914; Catheter R.N. Size: 20 G; Orientation: Left; Location: Forearm; Removal Date: 03/12/18; Removal Time: 1145 (RETIRED) Incision 03/12/18; 1011; Hand; 03/12/18 1011 by 1418 by Right; DRSG XRF WND Gris Sahu, R.N. [facility] c-Background NADH 1X8 (x1), SPLINT , Scheduli ng Automated PLASTER 3X15 (x1), SPNG Batch Gris mendoza SRG GZ 16 PLY 4X4 (x1), STCKNT BIAS 4X3 (x1), DRSG CAST PAD 3X4 WEBRIL (x1); 12/26/20 (Removed by background completion utility); 1418 (Removed by background completion utility) documented in this encounter Social History Tobacco Use Types Packs/Day Years Used Date Smoking Tobacco: Former Cigarettes Quit : 04/07/1987 Smokeless Tobacco: Never Alcohol Habits Answer Date Recorded How often do you have a drink containing 4 or more times a w [place] devil 07/30/2021 alcohol? How many drinks containing alcohol [...] you attend restorationism or Patient refused 2021 holiness services? Do [...] place to sleep or slept in a [facility] (including now)? 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 - 03/12/2018 1:04 PM TOP CUTTER Associated Order(s): ANESTHESIA REGIONAL BLOCK Regional Block Date/Time: 03/12/2018 9:20 AM Performed by: DILMA SCHAFER Authorized by: CHRISTOPH FERNÁNDEZ Location: Pre Op / PACU Center protocol: All relevant documentation and testing were reviewed and available. All required blood products, implants, devices and/or special equipment were made available as applicable. The pre-procedure verification was conducted, the correct site was marked if required, and the procedural time out was conducted prior to performing the procedure and confirmed in a procedural pause: yes Pre-procedure details: Appropriate hand hygiene, gown, cap, mask, protective eyewear, sterile gloves, skin preparation, sterile drape, and strict aseptic technique were utilized as applicable for the procedure.: yes Skin prep: chlorhexidine Sedation/Anesthesia (see MAR for exact dosages): Anesthesia method: local infiltration Procedure details: Block type: primary anesthetic Upper extremity: supraclavicular Positioning: supine Laterality: right Block technique: ultrasound guided Ultrasound image: image acquired and saved Supraclavicular blockade were identified. Local anesthetic was injected under direct visualization and good circumferential spread was observed. No pain on injection or needle advancement. No complications noted patient tolerated procedure well. Injection technique: single injection Needle type: insulated Test dose: yes- negative test dose Incremental injection of local anesthetic with aspiration every:5cc Pain with needle advancement or injection of local anesthetic: no Post-procedure details: Procedure completed successfully: successful procedure Other complications: none CUTTER Anesthesia Postprocedure Evaluation - Isha Peña M.D. - 03/12/2018 11:14 AM CST Patient: Priscilla Fitzpatrick Procedure Summary Date: 03/12/18 Room / Location: [address] / [facility] in [place], [place] Anesthesia Start: 916 Anesthesia Stop: 1113 Procedure: Repair Collateral Ligament Ulnar, Skier's Thumb (Right ) Diagnosis: (RIGHT thumb ulnar collateral ligament advancement.) Provider: Anibal Larkin M.D. Responsible Provider: Chano Ibarra M.D. Anesthesia Type: regional ASA Status: 2 Anesthesia Type: regional Last vitals BP 95/56 (03/12/18919) Temp 36.8 ??C (03/12/18 1106) Pulse 60 (03/12/18919) Resp (!) 9 (03/12/18919) SpO2 97 % (03/12/18919) Anesthesia Post Evaluation Patient Disposition: dismissal Cardiovascular status: hemodynamics (HR & BP) acceptable Respiratory status: patent airway with spontaneous effort Temperature: normothermic Oxygen requirements: room air Level of consciousness: awake Pain score: pain adequately controlled and/or at baseline Post Op nausea/vomiting: none Hydration status: euvolemic CUTTER Anesthesia Preprocedure Evaluation - Chano Ibarra M.D. - 03/12/2018 9:01 AM CST Anesthesia Pre-Evaluation Pertinent components of the patient's [...] patient / legal guardian, or through an patient care representative; patient evaluated and approved for anesthesia / sedation. Use of blood products discussed with patient who consented to blood products. CUTTER documented in this encounter Plan of Treatment Upcoming Encounters Date Type Specialty Care Team Description 02/02/2022 Immunization Family Medicine 02/12/2022 Office Visit Dermatology Lacy Dykes M.D. [address] [place], [place] [phone] (Wo rk) 02/22/2022 Office Visit Orthopedic Surgery Kimberlyn Alvarez, JOSE DANIEL, C.N.P., D.N.P. [address] [place], [place] [phone] (Wo rk) 03/12/2022 Diagnostic Otorhinolaryngology Blanka Carranza, C.N.P. [address] [place], [place] [phone] Aleena Hassan Au.D. [address] [place] [address] documented as of this encounter Procedures Procedure Name Priority Date/Time Associated Comments Diagnosis ANESTHESIA REGIONAL Routine 03/12/2018 1:04 PM Re sults for this BLOCK TOP CUTTER procedure are i n the results section. documented in this encounter Results Regional Block (03/12/2018 1:04 PM TOP CUTTER) Narrative Christoph Fernández M.D. - 03/12/2018 1:04 PM TOP CUTTER Dilma Schafer M.D. ? 03/12/2018 ??1:06 PM Regional Block Date/Time: 03/12/2018 9:20 AM Performed by: DILMA SCHAFER Authorized by: CHRISTOPH FERNÁNDEZ Location: Pre Op / PACU Center protocol: All relevant documentation and testing w ere reviewed and available. All required blood products, implants, devic es and/or special equipment were made available as applicable. The pre-pr ocedure verification was conducted, the correct site was marked i f required, and the procedural time out was conducted prior to performi ng the procedure and confirmed in a procedural pause: yes ?? Pre-procedure details: Appropriate hand hygiene, gown, cap, mas k, protective eyewear, sterile gloves, skin preparation, sterile drape, and strict aseptic technique were utilized as applicable for the procedure .: yes ?? Skin prep: chlorhexidine Sedation/Anesthesia (see MAR for exact d osages): Anesthesia method: local infiltration Procedure details: Block type: primary anesthetic ?? Upper extremity: supraclavicular Positioning: supine ?? Laterality: right Block technique: ultrasound guided ?? Ultrasound image: image acquired and hermes ed Supraclavicular blockade were identified . Local anesthetic was injected under direct visualization and good circ umferential spread was observed. No pain on injection or needle advanceme nt. No complications noted patient tolerated procedure well. Injection technique: single injection Needle type: insulated Test dose: yes- negative test dose ?? Incremental injection of local anestheti c with aspiration every:5cc Pain with needle advancement or injectio n of local anesthetic: no ?? Post-procedure details: Procedure completed successfully: succes sful procedure Other complications: none Christoph Fernández M.D. PROCEDURE/MINOR SURGICAL ORD ERABLES documented in this encounter Visit Diagnoses Not on filedocumented in this encounter Administered Medications Inactive Administered Medications - up to 3 most recent administrations Medication Order MAR Action Action Date Dose Rate Site ceFAZolin injection (ANCEF) Given 03/12/2018 9:50 AM TOP CUTTER 2 g As needed, Starting on Taniya 03/12/18 at 0950, Anesthesia Intra-op dexamethasone injection (DECADRON) Given 03/12/2018 10:02 AM TOP CUTTER 4 mg As needed, Starting on Taniya 03/12/18 at 1002, Anesthesia Intra-op ePHEDrine (PF) injection Given 03/12/2018 10:20 AM TOP CUTTER 5 mg As needed, Starting on Taniya 03/12/18 at 1020, Anesthesia Intra-op EPINEPHrine injection (ADRENALIN) Given 03/12/2018 9:26 AM TOP CUTTER 15 mcg As needed, anaphylaxis, Starting on Taniya 03/12/18 at 0926, Anesthesia Intra-op lactated ringers New Bag 03/12/2018 9:15 AM TOP CUTTER intravenous, Continuous Infusion: Per Instructions PRN, Starting on Taniya 03/12/18 at 0915, Anesthesia Intra-op mepivacaine (PF) 15 mg/mL (1.5 %) injection Given 03/12/2018 9:2 6 AM TOP CUTTER 25 mL (CARBOCAINE) As needed, Starting on Taniya 03/12/18 at 0926, Anesthesia Intra-op ondansetron (PF) injection (ZOFRAN) Given 03/12/2018 10:30 AM TOP CUTTER 4 mg intravenous, As needed, nausea, vomiting, Starting on Taniya 03/12/18 at 1030, Anesthesia Intra-op propofol 10 mg/mL infusion Rate/Dose 03/12/2018 50 mcg/kg/min 22.4 m L/hr (DIPRIVAN) Change 10:35 AM TOP CUTTER intravenous, Continuous Infusion: Per Instructions PRN, Starting on Taniya 03/12/18 at 0950, Anesthesia Intra-op Rate/Dose Change 03/12/2018 10:25 AM TOP CUTTER 80 mcg/kg/min 35.9 mL/hr Rate/Dose Change 03/12/2018 10:20 AM TOP CUTTER 90 mcg/kg/min 40.4 mL/hr propofol injection (DIPRIVAN) Given 03/12/2018 9:55 AM TOP CUTTER 20 mg intravenous, As needed, Starting on Taniya 03/12/18 at 0955, Anesthesia Intra-op documented in this encounter Additional Health Concerns Assessment Noted Time PHQ-9 Depression Total Score: 2 04/22/2015 11:24 AM CS T documented as of this encounter
--- OUTSIDE RECORDS SUMMARY | 2022-01-31 09:38 | XMS_ITS | Encounter Summary ---
:1955 Author Organization [facility] Address [address] [place] [address] Care Team Providers Name Role Phone Unavailable Primary Care Provider Unavailable Encounter Details Date Type Department Care Team Description 11/14/2017 Clinical Communication Department of Cedric Sweeney , Orthopedic Surgery in [address] [phone] Social History Tobacco Use Types Packs/Day Years Used Date Smoking Tobacco: Former Cigarettes Quit : 04/07/1987 Smokeless Tobacco: Never Alcohol Habits Answer Date Recorded How often do you have a drink containing 4 or more times a w [place] 07/30/2021 alcohol? How many drinks containing alcohol [...] or relatives? How often do you attend mormonism or Patient refused 2021 jain services? Do you belong to any clubs or Yes 07/30/2021 organizations such as mormonism groups, unions, fraternal or athletic groups, or [...] or slept in a longterm (including now)? 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 This is not authorized yet. I will send another message to Jocelyn to check on status. Telephone Encounter - Myrna Wolf - 11/14/2017 9:23 AM CDT Checking on prior auth and has not heard back. It is for shots in her knees. Please call Priscilla and let her know, she can be reached at [phone] and a message may be left. documented in this encounter Plan of Treatment Upcoming Encounters Date Type Specialty Care Team Description 02/02/2022 Immunization Family Medicine 02/12/2022 Office Visit Dermatology Lacy Dykes M.D. [address] [place], [place] [phone] (Wo ramy) 02/22/2022 Office Visit Orthopedic Surgery Kimberlyn Alvarez, JOSE DANIEL, C.N.P., D.N.P. [address] [place] [phone] (Wo rk) 03/12/2022 Diagnostic Otorhinolaryngology Blanka Carranza, DarrellNPhilPPhil [address] [place] [address] Aleena Hassan Au.D. [address] [place] [phone] documented as of this encounter Visit Diagnoses Not on filedocumented in this encounter Additional Health Concerns Assessment Noted Time PHQ-9 Depression Total Score: 2 04/22/2015 11:24 AM CS T documented as of this encounter
--- OUTSIDE RECORDS SUMMARY | 2022-01-31 09:38 | XMS_ITS | Encounter Summary ---
:1955 Author Organization [facility] Address [address] [place] [address] Care Team Providers Name Role Phone Unavailable Primary Care Provider Unavailable Reason for Referral Outpatient (Routine) - Closed Specialty Diagnoses / Procedures Referred By Contact Refer red To Contact Diagnoses Pain Knee Bilateral Cedric Sweeney M.D. [facility] Procedures Large Joint Injection [address] [place] [phone] Referral ID Status Reason Start Date Expiration Date Visits Requ ested Visits Authorized [id number] Closed 12/02/2017 12/02/2018 1 0 Outpatient (Routine) - Closed Specialty Diagnoses / Procedures Referred By Contact Refer red To Contact Diagnoses Pain Knee Bilateral Cedric Sweeney M.D. [facility] Procedures Large Joint Injection [address] [place] [address] Referral ID Status Reason Start Date Expiration Date Visits Requ ested Visits Authorized [id number] Closed 12/02/2017 12/02/2018 1 0 Reason for Visit Reason Comments Injection Visit 1st right knee euflexxa Pain Auth/Cert Specialty Diagnoses / Procedures Referred By Contact Refer red To Contact Diagnoses Pain in right knee Pain in right knee Procedures IN [facility] ASP/INJ MJR JT WO US IN EUFLEXXA 20MG Euflexxa Injection in right knee Referral ID Status Reason Start Date Expiration Date Visits Requ ested Visits Authorized [id number] 1 1 Encounter Details Date Type Department Care Team Description 12/02/2017 Office Visit Department of Kimberlyn Alvarez APRN, C.N.P., D.N.P. [address] [place] [address] Pain Knee Bilateral Orthopedic Surgery in Cedric Sweeney M.D. [address] [place] [address] (Primary Dx) [address] [phone] Social History Tobacco Use Types [...] or relatives? How often do you attend confucianism or Patient refused 2021 confucianist services? 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 - 12/02/2017 8:00 AM CDTAssociated Order(s): LARGE JOINT INJECTION Post-Procedure Diagnose(s): Pain Knee Bilateral Knee injection Date/Time: 12/02/2017 8:26 AM Performed by: CEDRIC SWEENEY Authorized by: CEDRIC SWEENEY Welder Shielded Metal Arc utilized: dyed yarn operator not needed Risks discussed with: patient Procedural [...] with ordering provider Loreta Crowell R.N. - 12/02/2017 8:00 AM CDTAssociated Order(s): LARGE JOINT INJECTION Post-Procedure Diagnose(s): Pain Knee Bilateral Knee injection Date/Time: 12/02/2017 8:27 AM Performed by: CEDRIC SWEENEY Authorized by: CEDRIC SWEENEY Welder Shielded Metal Arc utilized: dyed yarn operator not needed Risks discussed with: patient Procedural [...] with ordering provider documented in this encounter Consult Notes Cedric Sweeney M.D. - 12/02/2017 8:00 AM CDT HISTORY OF PRESENT ILLNESS Priscilla is a 60-year-old woman who has been dealing with bilateral knee DJD. She still has problems with persistent pain in both of her knees. We had sent her for a physical therapy program and made nosignificant improvement in her symptoms. She has been taking anti-inflammatories regularly with onlyvery temporary minimal improvement in her symptoms as well. We had decided to proceed with hyaluronic acid injections and viscosupplementation. However, she notably does have an allergic reaction with previous pseudoseptic reaction to Synvisc in the past. Therefore, we decided proceed with Euflexxa injections beginning today. Her knees were prepped with iodine. Needle was then placed in the lateral aspect of each knee. Injection of 1 standard unit of Euflexxa was placed in each knee. She tolerated this well. We will plan to see her back next week and the following week for her 2nd and 3rd injections. documented in this encounter Plan of Treatment Upcoming Encounters Date Type Specialty Care Team Description 02/02/2022 Immunization Family Medicine 02/12/2022 Office Visit Dermatology Lacy Dykes M.D. [address] [place] [phone] (Wo rk) 02/22/2022 Office Visit Orthopedic Surgery Kimberlyn Alvarez APRN, C.N.P., D.N.P. [address] [facility] [place], [place] [phone] (Wo rk) 03/12/2022 Diagnostic Otorhinolaryngology Blanka Carranza, C.N.P. [address] [place], [place] [phone] Aleena Hassan Au.D. [address] [place] [phone] documented as of this encounter Procedures Procedure Name Priority Date/Time Associated Diagnosis Comme nts IN [facility] ASP/INJ Routine 12/02/2017 8:00 AM Pain Knee Bilater al Results for this MJR JT WO US CDT procedure are i n the results section. IN [facility] ASP/INJ Routine 12/02/2017 8:00 AM Pain Knee Bilater al Results for this MJR JT WO US CDT procedure are i n the results section. documented in this encounter Results IN [facility] ASP/INJ MJR JT WO US (12/02/2017 8:00 AM CDT) Narrative MMODAL - 12/02/2017 8:00 AM CDT Loreta Crowell R.N. ? 12/11/2017 ??3:17 PM Knee injection Date/Time: 12/02/2017 8:27 AM Performed by: CEDRIC SWEENEY Authorized by: CEDRIC SWEENEY Welder Shielded Metal Arc utilized: dyed yarn operator not ne eded ?? Risks discussed with: [...] dressing care and follow-up with ordering provider Cedric Sweeney M.D. PROCEDURE/MINOR SURGICAL ORD ERABLES Performing Organization Address City/State/ZIP Code Phon e Number MMODAL MMODAL NA IN [facility] ASP/INJ MJR JT WO US (12/02/2017 8:00 AM CDT) Narrative MMODAL - 12/02/2017 8:00 AM CDT Loreat Crowell R.N. ? 12/11/2017 ??3:17 PM Knee injection Date/Time: 12/02/2017 8:26 AM Performed by: CEDRIC SWEENEY Authorized by: CEDRIC SWEENEY Welder Shielded Metal Arc utilized: dyed yarn operator not ne eded ?? Risks discussed with: [...] dressing care and follow-up with ordering provider Cedric Sweeney M.D. PROCEDURE/MINOR SURGICAL ORD ERABLES Performing Organization Address City/[facility]/ZIP Code Phon e Number MMODAL MMODAL NA documented in this encounter Visit Diagnoses Diagnosis Pain Knee Bilateral - Primary documented in this encounter Administered Medications Inactive Administered Medications - up to 3 most recent administrations Medication Order MAR Action Action Date Dose Rate Site lidocaine (PF) 10 mg/mL (1 %) Given 12/02/2017 8:26 AM CDT 3 mL injection 3 mL (XYLOCAINE) 3 mL, infiltration, One-Time Injection, Starting on Fri12/02/17 at 0826, For 1 dose lidocaine (PF) 10 mg/mL (1 %) injection 3 mL Given 12/02/2017 8: 27 AM CDT 3 mL (XYLOCAINE) 3 mL, infiltration, One-Time Injection, Starting on Fri12/02/17 at 0827, For 1 dose sodium hyaluronate (viscosup) injection 20 mg Given 8:26 AM CDT 20 mg (EUFLEXXA) 20 mg, intra-articular, One-Time Injection, Starting on Fri12/02/17 at 0826, For 1 dose sodium hyaluronate (viscosup) injection 20 mg Given 8:27 AM CDT 20 mg (EUFLEXXA) 20 mg, intra-articular, One-Time Injection, Starting on Fri12/02/17 at 0827, For 1 dose documented in this encounter Additional Health Concerns Assessment Noted Time PHQ-9 Depression Total Score: 2 04/22/2015 11:24 AM CS T documented as of this encounter
--- OUTSIDE RECORDS SUMMARY | 2022-01-31 09:38 | XMS_ITS | Encounter Summary ---
:1955 Author Organization [facility] Address [address] [place] [address] Care Team Providers Name Role Phone Unavailable Primary Care Provider Unavailable Reason for Visit Reason Onset Date Comments surgery 11/14/2017 Encounter Details Date Type Department Care Team Description 11/14/2017 Clinical Communication Department of Anibal Larkin , surgery Orthopedic Surgery M.DPhil in [place], [facility] [place]note 2] [address] [place], [place] [address] [facility] [address] [place], [place] [phone] (Wo rk) [address] [phone] Social History Tobacco Use Types Packs/Day Years Used Date Smoking Tobacco: Former Cigarettes Quit : 04/07/1987 Smokeless Tobacco: Never Alcohol Habits Answer Date Recorded How often do you have a drink containing 4 or more times a w elim ira 07/30/2021 alcohol? How many drinks containing alcohol [...] or relatives? How often do you attend restoration or Patient refused 2021 yarsani services? 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 Looking around 02/02-02/06. Or any other dates in February. Is she able to schedule and see Dr. Larkin day before?Or will she need to see him first and then discuss surgery? Thank you documented in this encounter Plan of Treatment Upcoming Encounters Date Type Specialty Care Team Description 02/02/2022 Immunization Family Medicine 02/12/2022 Office Visit Dermatology Lacy Dykes M.D. [address] [place], [place] [phone] (Lisha mccann) 02/22/2022 Office Visit Orthopedic Surgery Kimberlyn Alvarez APRN, C.N.P., D.N.P. [address] [place], [place] [phone] (Lisha mccann) 03/12/2022 Diagnostic Otorhinolaryngology Blanka Carranza, C.N.P. [address] [place] [address] Aleena Hassan Au.D. [address] [place] [phone] documented as of this encounter Visit Diagnoses Not on filedocumented in this encounter Additional Health Concerns Assessment Noted Time PHQ-9 Depression Total Score: 2 04/22/2015 11:24 AM CS T documented as of this encounter
--- OUTSIDE RECORDS SUMMARY | 2022-01-31 09:38 | XMS_ITS | Encounter Summary ---
:1955 Author Organization [facility] Address [address] [place] [address] Care Team Providers Name Role Phone Unavailable Primary Care Provider Unavailable Encounter Details Date Type Department Care Team Description 10/21/2017 Clinical Communication Department of Grace Madrigal Orthopedic Surgery in [facility] [address] [phone] Social History Tobacco Use Types Packs/Day Years Used Date Smoking Tobacco: Former Cigarettes Quit : 04/07/1987 Smokeless Tobacco: Never Alcohol Habits Answer Date Recorded How often do you have a drink containing 4 or more times a w marshall 07/30/2021 alcohol? How many drinks containing alcohol [...] or relatives? How often do you attend sikhism or Patient refused 2021 worship services? 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 Message left for patient . Deb Telephone Encounter - Deb Tamez - 11/24/2017 8:50 AM CDT A order needs to be placed by the Provider In order for it to drop in to a que for the department who works on this. I do not see that it was ever put in. Telephone Encounter - Cedric Sweeney M.D. - 11/24/2017 7:26 AM CDT Can you check to see if approved Telephone Encounter - Jenise French LPhilP.NPhil - 11/14/2017 4:19 PM CDT Patient calling checking on status of authorization. Please inform patient Telephone Encounter - Grace Madrigal L.P.NPhil - 11/06/2017 2:01 PM CDT Kimberlyn put orders in for Euflexxa injections. Telephone Encounter - Valery Quintanillan - 11/05/2017 2:22 PM CDT I will be happy to work on getting this authorization, but the order needs to be put in so it drops into the WQ. Please enter the order for Euflexxa with the dosage and how many injections will be done. Make note that patient is allergic to Synvisc. Thank you, Juliann Telephone Encounter - Grace Madrigal L.P.NPhil - 10/31/2017 2:14 PM CDT Need prior authorization for Euflexxa injections, patient has an allergy to Synvisc. Telephone Encounter - Grace Madrigal L.P.NPhil - 10/30/2017 2:52 PM CDT Orders for Synvisc will be entered by Kimberlyn Alvarez CNP Telephone Encounter - Grace Madrigal L.P.NPhil - 10/30/2017 9:38 AM CDT Thank you will send to appropriate team. Telephone Encounter - Eleonora Domingo - 10/29/2017 10:02 AM CDT Wrong work list---needs to go to prior auth---NOT work comp team Telephone Encounter - Grace Madrigal L.P.N. - 10/21/2017 2:45 PM CDT Needing priorauthorization for Euflexxa injections to left knee. documented in this encounter Plan of Treatment Upcoming Encounters Date Type Specialty Care Team Description 02/02/2022 Immunization Family Medicine 02/12/2022 Office Visit Dermatology Lacy Dykes M.D. [address] [place], [place] [phone] (Wo rk) 02/22/2022 Office Visit Orthopedic Surgery Kimberlyn Alvarez APRN C.N.P., D.N.P. [address] [place], [place] [phone] (Wo rk) 03/12/2022 Diagnostic Otorhinolaryngology Blanka Carranza, C.N.P. [address] [place] [address] Aleena Hassan Au.D. [address] [place] [address] documented as of this encounter Visit Diagnoses Not on filedocumented in this encounter Additional Health Concerns Assessment Noted Time PHQ-9 Depression Total Score: 2 04/22/2015 11:24 AM CS T documented as of this encounter
--- OUTSIDE RECORDS SUMMARY | 2022-01-31 09:38 | XMS_ITS | Encounter Summary ---
:1955 Author Organization [facility] Address [address] [place] [address] Care Team Providers Name Role Phone Unavailable Primary Care Provider Unavailable Encounter Details Date Type Department Care Team Description 03/09/2018 Ancillary Procedure Department of Dermatology Social History Tobacco Use Types Packs/Day Years Used Date Smoking Tobacco: Former Cigarettes Quit : 04/07/1987 Smokeless Tobacco: Never Alcohol Habits Answer Date Recorded How often do you have a drink containing 4 or more times a w [place] 07/30/2021 alcohol? How many drinks containing alcohol [...] you attend sikh or Patient refused 2021 jainism services? Do you belong to any clubs [...] or slept in a fci (including now)? 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 [address] [place], [place] [phone] (Wo rk) 02/22/2022 Office Visit Orthopedic Surgery Kimberlyn Alvarez APRN, C.N.P., D.N.P. [address] [place], [place] [phone] (Wo rk) 03/12/2022 Diagnostic Otorhinolaryngology Blanka Carranza, C.N.P. [address] [place] [address] Aleena Hassan Au.D. [address] [place] [address] documented as of this encounter Procedures Procedure Name Priority Date/Time Associated Comments Diagnosis DERMATOLOGY IMAGE Routine 03/09/2018 8:15 AM Resu lts for this EXAM EDUCATIONAL CONSULTANT procedure are i n the results section. documented in this encounter Results DERMATOLOGY IMAGE EXAM (03/09/2018 8:15 AM EDUCATIONAL CONSULTANT) Specimen (Source) Anatomical Collection Method Collection Time Re ceived Time Location / / Volume Laterality 03/09/2018 8:11 AM EDUCATIONAL CONSULTANT Narrative [facility] - 03/09/2018 8:16 AM EDUCATIONAL CONSULTANT This order has been created and auto-finalized [...]
--- OUTSIDE RECORDS SUMMARY | 2022-01-31 09:38 | XMS_ITS | Encounter Summary ---
:1955 Author Organization [facility] Address [address] [place] [address] Care Team Providers Name Role Phone Unavailable Primary Care Provider Unavailable Encounter Details Date Type Department Care Team Description 01/27/2018 Hospital Encounter Department of Ella Solorzano Right Radiology, Faith Augustine APRN, C.N.P. [facility], in [address] [place], [place] [address] [place] [address] [place], [place] [phone] (Work) [phone] Social History Tobacco Use Types Packs/Day Years Used Date Smoking Tobacco: Former Cigarettes Quit : 04/07/1987 Smokeless Tobacco: Never Alcohol Habits Answer Date Recorded How often do you have a drink containing 4 or more times a w platinum 07/30/2021 alcohol? How many drinks containing alcohol [...] you attend evangelical or Patient refused 2021 mormon services? 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 citalopram (CeleXA) 20 Take 0.5 tablets by 0 04/0703/06/2021 mg tablet mouth daily. UNABLE TO FIND Tumeric raw herb 0 08/18/201502/07 daily documented as of this encounter Plan of Treatment Upcoming Encounters Date Type Specialty Care Team Description 02/02/2022 Immunization Family Medicine 02/12/2022 Office Visit Dermatology Lacy Dykes M.D. [address] [place], [place] [phone] ([facility]) 02/22/2022 Office Visit Orthopedic Surgery Kimberlyn Alvarez APRN, C.N.P., D.N.P. [address] [place], [place] [phone] ([facility]) 03/12/2022 Diagnostic Otorhinolaryngology Blanka Carranza, C.N.P. [address] [place], [place] [phone] Aleena Hassan Au.D. [address] [place] [phone] documented as of this encounter Procedures Procedure Name Priority Date/Time Associated Comments Diagnosis DX THUMB RIGHT RAD - Routine 01/27/2018 2:43 Pain Thumb Right Resul ts for this (most inpatients PM CDT procedure a re in and all the results outpatients) section. documented in this encounter Results DX Thumb Right (01/27/2018 [...] and wrist, not significantly changed since 04/03/2016. Authorizing Provider Result Darrell Flannery APRNNGavino IMHomer DIAGNOSTIC IMAGING [place] OCEDURES documented in this encounter Visit Diagnoses Diagnosis Pain Thumb Right documented in this encounter Additional Health Concerns Assessment Noted Time PHQ-9 Depression Total Score: 2 04/22/2015 11:24 AM CS T documented as of this encounter
--- OUTSIDE RECORDS SUMMARY | 2022-01-31 09:38 | XMS_ITS | Encounter Summary ---
:1955 Author Organization [facility] Address [address] [place] [address] Care Team Providers Name Role Phone Unavailable Primary Care Provider Unavailable Reason for Visit Auth/Cert Specialty Diagnoses / Procedures Referred By Contact Refer red To Contact Diagnoses Sprain of metacarpophalangeal joint of right thumb, initial encounter RIGHT thumb UCL advancement Procedures IL NEUROPLASTYULNAR NERVE AT WRST Repair Collateral Ligament Ulnar - Gamekeeper's Thumb, UCL advancement Referral ID Status Reason Start Date Expiration Date Visits Requ ested Visits Authorized [id number] 1 1 Encounter Details Date Type Department Care Team Description 03/12/2018 Hospital Encounter [facility] OR Anibal Larkin, [address] [facility] [place] [place] [address] [facility] [address] [place], [place] [phone] (Wo rk) Social History Tobacco Use Types Packs/Day Years Used Date Smoking Tobacco: Former Cigarettes Quit : 04/07/1987 Smokeless Tobacco: Never Alcohol Habits Answer Date Recorded How often do you have a drink containing 4 or more times a w robinson 07/30/2021 alcohol? How many drinks containing alcohol [...] or relatives? How often do you attend yazidism or Patient refused 2021 confucianism services? Do you belong to any clubs or Yes 07/30/2021 organizations such as yazidism groups, unions, fraternal or athletic groups, or [...] or slept in a jail (including now)? 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 - 03/12/2018 11:01 AM BUTT TRIMMER SURGICAL DRESSING: The patient has a surgical dressing that was placed intra- operatively on the involved upper extremity. This dressing should remain in place until follow-up with your local surgeon/Dr. Larkin/Dr. Grant and should be kept clean and dry. The dressings will be removed at that time. Call the hospital air shovel operator ([phone]) and ask for Dr. Larkin/'s service if [...] Orthopaedic surgical service via the [facility] air shovel operator ([phone]), a local emergency room, or your local [...] that some narcotic pain medications contain Tylenol. TRIMMER documented in this encounter Medications at Time of Discharge Medication Sig Dispensed Refills Start Date End Date SYNTHROID 175 mcg tablet Take 1 tablet by 0 09/11 mouth daily. atorvastatin (LIPITOR) Take 1 tablet by 0 09/04/2 018 10 mg tablet mouth every other day. B.ANI/L.ACI/L.BERNICE/L.PLAN Take 1 capsule by 0 04/06/2012 /.TASH (PROBIOTIC mouth daily. FORMULA ORAL) EPINEPHrine [...] daily documented as of this encounter H&P Jerardo Bueno IV, M.D. - 03/12/2018 9:14 AM CST INTERVAL HISTORY AND PHYSICAL PRE-PROCEDURE UPDATE H&P reviewed. The patient was examined and there are no significant changes to the H&P. Sergio Negron M.D. TRIMMER Source Note - Chano Ibarra M.D. - 03/12/2018 9:01 AM BUTT TRIMMER Anesthesia Pre-Evaluation Pertinent components of the patient's [...] patient / legal guardian, or through an organic chemist; patient evaluated and approved for anesthesia / sedation. Use of blood products discussed with patient who consented to blood products. TRIMMER documented in this encounter OR Notes Op [...] was then repaired with 4 0 Ethibond iiypkb-sc-vjing sutures thereby also reapproximating the sagittal band. The tourniquet was deflated and careful hemostasis achieved with bipolar cautery. The skin incision was closed with 4 0 Monocryl egkmiw-iv-jijjf sutures. The incision was dressed with Xeroform gauze and fluffs and a thumb spica splint was placed with the thumb in neutral position. Patient was then escorted to the PACU in good condition Specimens * No specimens in log * Drains * No drains in log * Estimated Blood Loss 5 mL Implants Implant Name Type Inv. Item Serial No. Uptwister Tender Lot No. LRB No. Used Action ANCH SUT CRK SCRW FT 2.2 - [id number] Hardware e.g. pins/screws/rods ANCH SUT CRK SCRW FT 2.2 Arthrex Right 1 Implanted ANCH SUT CRK SCRW FT 2.2 - [id number] Hardware e.g. pins/screws/rods ANCH SUT CRK SCRW FT 2.2 Arthrex Right 1 Implanted Kiran Varela M.D. TRIMMER Brief Op Note - Jerardo Negron IV, M.D. - 03/12/2018 10:03 AM BUTT TRIMMER BRIEF OP NOTE Procedure(s): Repair Collateral Ligament Ulnar, Skier's Thumb (Right) Surgeon(s): Anibal Larkin M.D. Anesthesia Type: Regional Pre-Operative Diagnosis: RIGHT thumb ulnar collateral ligament advancement. Brief Operative Note Details Specimens * No specimens in log * Drains * No drains in log * Estimated Blood Loss 5 mL Implants Implant Name Type Inv. Item Serial No. Uptwister Tender Lot No. LRB No. Used Action ANCH SUT CRK SCRW FT 2.2 - [id number] Hardware e.g. pins/screws/rods ANCH SUT CRK SCRW FT 2.2 Arthrex Right 1 Implanted ANCH SUT CRK SCRW FT 2.2 - [id number] Hardware e.g. pins/screws/rods ANCH SUT CRK SCRW FT 2.2 Arthrex Right 1 Implanted Sergio Negron M.D. TRIMMER documented in this encounter Plan of Treatment Upcoming Encounters Date Type Specialty Care Team Description 02/02/2022 Immunization Family Medicine 02/12/2022 Office Visit Dermatology Lacy Dykes M.D. [address] [place], [place] [phone] (Wo ) 02/22/2022 Office Visit Orthopedic Surgery Kimberlyn Alvarez APRN, C.N.P., D.N.P. [address] [place], [place] [phone] (Wo rk) 03/12/2022 Diagnostic Otorhinolaryngology Blanka Carranza, C.N.P. [address] [place], [place] [phone] Aleena Hassan Au.D. [address] [place] [address] documented as of this encounter Procedures Procedure Name Priority Date/Time Associated Comments Diagnosis FL FLUORO LESS RAD - Routine 03/12/2018 10:46 Results for this THAN 1 HOUR (most inpatients AM BUTT TRIMMER procedure a re in and all the results outpatients) section. REPAIR COLLATERAL 03/12/2018 9:29 RIGHT thumb ulnar LIGAMENT ULNAR - AM BUTT TRIMMER collateral GAMEKEEPER'S THUMB ligament advancement. documented in this encounter Results FL Fluoro Less Than 1 Hour (03/12/2018 10:46 AM BUTT TRIMMER) Specimen (Source) Anatomical Location Collection Method / Collectio n Time Received Time / Laterality Volume Narrative [facility] - 03/12/2018 10:48 AM CS T This exam does not require a radiologist review or interpretation. Please refer to the patient's medical record on this date for clinical details. Ella Solorzano APRN C.NPhilPPhil IMG FLUOROSCOPY PROCEDURE S Performing Organization Address City/State/ZIP Code Phon e Number [facility] documented in this encounter Visit Diagnoses Not on filedocumented in this encounter Administered Medications Inactive Administered Medications - up to 3 most recent administrations Medication Order MAR Action Action Date Dose Rate Site acetaminophen tablet 1,000 mg Given 03/12/2018 8:50 AM BUTT TRIMMER 1,000 mg (TYLENOL) 1,000 mg, oral, Once, On Taniya 03/12/18 at 0900, For 1 dose, Pre-Op celecoxib capsule 400 mg (CeleBREX) Given 03/12/2018 8:51 AM BUTT TRIMMER 400 mg 400 mg, oral, Once, On Taniya 03/12/18 at 0900, For 1 dose, Pre-Op fentaNYL injection 50 mcg (SUBLIMAZE) Given 03/12/2018 9:13 AM BUTT TRIMMER 50 mcg 50 mcg, intravenous, Every 2 min PRN, sedation, Starting on Taniya 03/12/18 at 0825, For 2 doses, Pre-Op lactated ringers Continued from OR 03/12/2018 11:05 AM 20 mL/hr 20 mL/hr 20 mL/hr, intravenous, BUTT TRIMMER Continuous, Starting on Taniya 03/12/18 at 1015, PACU & Post-Op midazolam (PF) injection 1 mg (VERSED) Given 03/12/2018 9:13 AM BUTT TRIMMER 2 mg 1 mg, intravenous, Every 2 min PRN, sedation, Starting on Taniya 03/12/18 at 0825, For 2 doses, Pre-Op scopolamine base 1 mg Medication Applied 03/12/2018 8:50 AM 1 patch Behind Right over 3 days 1 patch BUTT TRIMMER Ear (TRANSDERM SCOP) 1 patch, transdermal, Administer over 72 Hours, Once as needed, nausea, vomiting, Starting on Taniya 03/12/18 at 0848, For 1 dose, Pre-Op documented in this encounter Active and Recently Administered Medications Times are shown in BUTT TRIMMER. Scheduled Medication Order 03/10/2018 03/11/2018 03/12/2018 acetaminophen [...] dose, Pre-Op acetaminophen tablet 1,000 mg (TYLENOL) 0915 (Due) 1,000 mg, oral, Once, Taniya 03/12/18 at 091 5, For 1 dose, PACU (only), Oral unless RASS less than -1 or nausea/vomiting. Do not use if given in last 6 hours celecoxib capsule 400 mg (CeleBREX) (COMPLETED) 0851 (Given - Provider: Kimberly Means R.N.) 400 mg, oral, Once, On Taniya 18 at 0900, For 1 dose, Pre-Op Continuous [...] hours PRN , nausea, vomiting, Starting Taniya 12/18 at 0902, For [...] 0850 (Medication Applied - Provider: Kimberly Means R.N.)1159 (Due: Medication Removed - Provider: Discharge Provider, [...]
--- OUTSIDE RECORDS SUMMARY | 2022-01-31 09:38 | XMS_ITS | Encounter Summary ---
:1955 Author Organization [facility] Address [address] [place] [address] Care Team Providers Name Role Phone Unavailable Primary Care Provider Unavailable Reason for Visit Reason Comments Follow-up Encounter Details Date Type Department Care Team Description 03/20/2018 Hospital Encounter Department of Fer Negron IV, M.D. [address] [place] [address] Pain Thumb Right Orthopedic Surgery Anibal Larkin M.D. [address] [place] [address] in [place], [place] [address] [place] [phone] Social History Tobacco Use Types Packs/Day Years Used Date Smoking Tobacco: Former Cigarettes Quit : 04/07/1987 Smokeless Tobacco: Never Alcohol Habits Answer Date Recorded How often do you have a drink containing 4 or more times a w bishop [place] 07/30/2021 alcohol? How many drinks containing [...] or relatives? How often do you attend synagogue or Patient refused 2021 amish services? 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 - 03/20/2018 9:41 AM CST Cast Room Visit Preoperative Diagnosis: Status post Repair Collateral Ligament Ulnar, Skier's Thumb - Right on 03/12/2018 Preoperative Indication: Continuing care. Surgeon: Anibal Larkin MD Procedure: 1. Splint removal 2. Examination 3. Cast application Assessment/Plan: Ms. Fitzpatrick returns to the cast room. She is now 8 days status post the above- mentioned procedure.Postoperatively, she has done well. She has had minimal pain. On arrival to the cast room, her splint was removed. Her surgical incision appears to be healing well. The absorbable sutures are in place. Following examination, a thumb spica cast was applied by the cast room personnel. She will remain inthis cast for the next approximately 5 weeks. We will see her back at that time, anticipate transition into a splint with initiation of therapy at that appointment. Patient was seen with Dr. Larkin. NURSE documented in this encounter Plan of Treatment Upcoming Encounters Date Type Specialty Care Team Description 02/02/2022 Immunization Family Medicine 02/12/2022 Office Visit Dermatology Lacy Dykes M.D. [address] [place] [phone] ([facility]) 02/22/2022 Office Visit Orthopedic Surgery Kimberlyn Alvarez APRN C.N.P., D.N.P. [address] [place], [place] [phone] (Wo rk) 03/12/2022 Diagnostic Otorhinolaryngology Blanka Carranza, C.N.P. [address] [place] [address] Aleena Hassan Au.D. [address] [place] [address] Scheduled Orders Name Type Priority Associated Diagnoses Order S chedule Cast Room visit Procedures Routine Pain Thumb Right Once for 1 Occurrences starting 2017 until 03/20/2018 documented as of this encounter Visit Diagnoses Diagnosis Pain Thumb Right documented in this encounter Additional Health Concerns Assessment Noted Time PHQ-9 Depression Total Score: 2 04/22/2015 11:24 AM CS T documented as of this encounter
--- OUTSIDE RECORDS SUMMARY | 2022-01-31 09:38 | XMS_ITS | Encounter Summary ---
:1955 [facility] Address [address] [place] [address] Care Team Providers Name Role Phone Unavailable Primary Care Provider Unavailable Reason for Visit Reason Comments Skin Check Appointment Request (Routine) - Closed Specialty Diagnoses / Procedures Referred By Contact Refer red To Contact Dermatology Referral ID Status Reason Start Date Expiration Date Visits Requ ested Visits Authorized [id number] Closed 12/05/2017 12/05/2018 1 Encounter Details Date Type Department Care Team Description 03/09/2018 Office Visit Department of Lacy Dykes Tumor Skin Un certain Behavior (Primary Dx); Dermatology in Michelet Roach M.D. Nevi Multiple; [place], [place] [address] [facility] Dermatofibroma [address] [place] [phone] Social History Tobacco Use Types Packs/Day Years Used Date Smoking Tobacco: Former Cigarettes Quit : 04/07/1987 Smokeless Tobacco: Never Alcohol Habits Answer Date Recorded How often do you have a drink containing 4 or more times a w [place] 07/30/2021 alcohol? How many drinks containing alcohol [...] or relatives? How often do you attend latter-day or Patient refused 2021 roman catholic services? 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 - 03/09/2018 8:00 AM CST CHIEF COMPLAINT/REASON FOR VISIT Skin cancer screening exam HISTORY OF PRESENT ILLNESS Ms. Priscilla Fitzpatrick is a 62 y.o. female who presents today for a full skin cancer screening examination. This is my first time seeing the patient. She was most recently seen by Dr. Neetu Knight on 12/22/17 for a full skin cancer screening exam, at which time she had no lesions concerning for skin cancer. The patient also sees Dr. Kwok (dermatology) in [place] 1-2 times per year for laser treatments.The patient denies a history of skin cancer. Her parents have a history for probable non-melanoma skin cancer, but no family history for melanoma. She uses sunscreen SPF 30+. Today the patient has concern for a crusty lesion involving her left ear. She reports that the lesion has been intermittently present since she first noticed it several months ago. Allergies Allergen Reactions ??? Diphtheria,Pertussis,Tetanus,Polio Vacc Other (see comments) No reaction listed in [employer] ??? Hylan G-F 20 Other (see comments) Synvisc - No reaction listed in [employer]ner ??? Pollen Extracts Other (see comments) No reaction listed in [employer]ner ??? Wasp Venom Other (see comments) Hornet - No reaction listed in [employer] PAST MEDICAL HISTORY No history of skin cancer FAMILY HISTORY Mother and father have probable history for non-melanoma skin cancer No family history for melanoma PHYSICAL EXAM General: Awake, alert, in no acute distress, and with appropriate affect. Eyes: No scleral injection or icterus. No eyelid abnormalities. Lymph: No lower extremity edema. Skin: I have examined the scalp, face, neck, chest, abdomen, back, bilateral upper extremities, and bilateral lower extremities. Examination of the left ear reveals no evidence for a lesion on clinicalexamination today. Examination of the skin between the left third and fourth web space reveals a 4.5mm x 2.5 mm uniformly pigmented brown nevus. The patient states that this lesion has been present without change for many years. Examination of the right upper posterior thigh reveals a dermatofibroma.Examination of the trunk and extremities reveals multiple benign nevi. Examination of the right upper back reveals a 1 cm x 0.6 cm lesion with light-brown pigmentation at periphery with telangiectasia in center. IMPRESSION/REPORT/PLAN #1 Right upper paraspinal back (right upper back): Rule out atypical nevus versus partially removed seborrheic keratosis We recommend a 10-mm punch excision of the right upper paraspinal back (right upper back). I discussed with the patient that this lesion could represent a partially removed, healing seborrheic keratosis or a atypical nevus. Just to be safe, I recommend removal over continued observation. The patient will be undergoing hand surgery later this week, but prefers to do this excision today because her will be home to assist with wound care and she will not be traveling at this time she travels a lot. Furthermore, will be away for few months thereafter. Photograph taken today with patient's verbal consent. We will correspond as to the results and if any further treatment is needed. I advi sed the patient to avoid any stretching, bending, twisting or heavy lifting for the two weeks following the procedure and the patient understands. We also emphasized for her to keep the area clean and if she notices any signs of infection whatsoever, she should seek prompt evaluation with either us orher primary care physician. PROCEDURAL PAUSE Procedural pause conducted to verify: correct patient identity, procedure to be performed, and as applicable, correct side and site, correct patient position, and availability of implants, special equipment, or special requirements. PROCEDURE DETAILS Punch excision. We explained the potential diagnosis and recommended that we obtain a biopsy. The risks and benefitsof the procedure were discussed, and the patient consented to these procedures. The patient denies any allergies to local anesthetics. Using 1% lidocaine with epinephrine for local anesthesia, a 10-mm punch biopsy was obtained from the right upper paraspinal back (right upper back). Biopsy submitted to Dermatopathology. Biopsy site closed with a deep layer of subcutaneous sutures with four 4-0 vicryl, as well as a top layer of four 4-0 nylon. The superficial skin sutures need to be removed in 10-14 days. Dressing was applied, and wound care instructions were explained. Biopsy results and any further recommendations will be communicated to the patient by letter. Patient given pamphlet [id number]. Discussed the risks, benefits, alternatives, and the necessity of other members of the healthcare team participating in the procedure. All questions answered and consent given. #2 Multiple nevi The ABCDE criteria for melanoma was reviewed with the patient. None of the patient's nevi reach the clinical threshold for biopsy with the exception of the nevus involving the right upper back noted above. I recommend continued sun protection, self-skin examinations, and observation. Should any of thepatient's nevi change in size, color, texture, or shape or develop symptoms such as itching or bleeding, I recommend an immediate return visit for reassessment. #3 Right upper posterior thigh: Dermatofibroma The benign nature of the skin lesion(s) was discussed with the patient. No treatment is required. I recommend continued observation. Should symptoms or changes develop related to this condition, I would recommend a return visit for reassessment. PATIENT EDUCATION Ready to learn. No apparent learning barriers were identified. Learning preferences include listening. Explained diagnosis and treatment plan; patient/guardian of patient expressed understanding of thecontent. By signing my name below, Gema Lynn, attest that this documentation has been prepared under the direction and in the presence of Lacy Dykes M.D.. Electronically Signed: tiana Bautista. 03/09/2018. 8:05 AM . Lacy Lynn M.D., personally performed the services described in this documentation. All medical record entries made by the scribe were at my direction and in my presence. I have reviewed the chart and discharge instructions (if applicable) and agree that the record reflects my personal performance and is accurate and complete. Lacy Dykes M.D. . 03/09/2018. 9:07 AM. TH OUTREACH WORKER Lacy Dykes M.D. - 03/09/2018 8:00 AM CST Atypical nevus already treated letter TH OUTREACH WORKER documented in this encounter Plan of Treatment Upcoming Encounters Date Type Specialty Care Team Description 02/02/2022 Immunization Family Medicine 02/12/2022 Office Visit Dermatology Lacy Dykes M.D. [address] [place], [place] [phone] (Wo rk) 02/22/2022 Office Visit Orthopedic Surgery Kimberlyn Alvarez, JOSE DANIEL, C.N.P., D.N.P. [address] [place], [place] [phone] (Wo ) 03/12/2022 Diagnostic Otorhinolaryngology Blanka Carranza, C.N.P. [address] [place] [address] Aleena Hassan Au.D. [address] [place] [phone] documented as of this encounter Procedures Procedure Name Priority Date/Time Associated Comments Diagnosis DERMATOPATHOLOGY CONSULT Routine 03/09/2018 8:24 Tumor Skin Results for this AM HEALTH OUTREACH WORKER Uncertain Behavior procedure are in the results section. documented in this encounter Results Dermatopathology Consult (03/09/2018 8:24 AM HEALTH OUTREACH WORKER) Component Value Ref Test Analysis Performed At [facility] Method Time Signature Gross Received in formalin labeled with the patient's name, 03/17/2018 [facility] Description: medical record number, and right upper paraspinal byron k is 4:16 PM LABORATORIES - a 1.0 cm in average diameter pale shah skin punch biopsy [facility] excised to a depth of 0.5 cm. Eccentrically located and CAMPUS abutting the periphery of the skin surface is a 0.7 x 0.6 cm shah lightly pigmented, slightly raised lesion with irregular borders. ??The specimen is trisected and submitted entirely in cassette A1. Grossed by BW Boris Mcclelland, 03/17/2018 [facility] electronically M.D. 4:16 PM LABORATORIES - signed by [facility] 03/17/2018 [facility] 4:16 PM LABORATORIES - [facility] Disclaimer This test was developed and its performance characteri stics 03/17/2018 [facility] determined by [facility] in a manner consistent with CLIA 4:16 PM LABORATORIES - requirements. This test has not been cleared or approved b y [facility] the [place].S. Food and Drug Administration. CAMPUS Interpetation FINAL DIAGNOSIS 03/17/2018 [facility] A. ??DermPath Consult Wet Tissue; Right upper paraspinal 4:16 PM LABORATORIES - back, Skin punch biopsy: ??Compound nevus with moderate [facility] atypia, peripheral borders appear free of involvement CAMPUS COMMENT Melan A stain highlights the atypical melanocytic proliferation. ??Multiple tissue levels examined. ??Clinical photo reviewed. ??Absence of nevus at borders in sections from a shave or punch specimen does not necessarily indicate that the lesion has been completely removed. Clinical and pathological correlation is recommended to determine adequacy of removal. Specimen Anatomical Collection Method Collection Time Receive d Time (Source) Location / / Volume Laterality Tissue 03/09/2018 8:24 AM 8 HEALTH OUTREACH WORKER 10:43 AM [facility] Narrative This result has an attachment that is no t available. Lacy Dykes M.D. LAB PATH DERM ORDERABLES Performing Organization Address City/State/ZIP Code Phon e Number [facility] - [address] [place], [place] [address] [facility] documented in this encounter Visit Diagnoses Diagnosis Tumor Skin Uncertain Behavior - Primary Nevi Multiple Dermatofibroma documented in this encounter Administered Medications Inactive Administered Medications - up to 3 most recent administrations Medication Order MAR Action Action Date Dose Rate Site lidocaine-EPINEPHrine 1 %-1:100,000 Given 03/09/2018 8:20 AM HEALTH OUTREACH WORKER 2 mL injection 2 mL (XYLOCAINE W/EPI) 2 mL, infiltration, Once, On Fri03/09/18 at 0830, For 1 dose documented in this encounter Additional Health Concerns Assessment Noted Time PHQ-9 Depression Total Score: 2 04/22/2015 11:24 AM CS T documented as of this encounter
--- OUTSIDE RECORDS SUMMARY | 2022-01-31 09:38 | XMS_ITS | Encounter Summary ---
:1955 Author Organization [facility] Address [address] [place] [address] Care Team Providers Name Role Phone Unavailable Primary Care Provider Unavailable Encounter Details Date Type Department Care Team Description 11/24/2017 Orders Only Department of KimKimberlyn L, Pain Knee L eft Orthopedic Surgery in [facility], C.N.P., (Prim radha Dx) [place], [place] D.N.P. [address] [facility] [address] [place] [phone] Social History Tobacco Use Types Packs/Day Years Used Date Smoking Tobacco: Former Cigarettes Quit : 04/07/1987 Smokeless Tobacco: Never Alcohol Habits Answer Date Recorded How often do you have a drink containing 4 or more times a w [place] 07/30/2021 alcohol? How many drinks containing alcohol [...] you attend tenriism or Patient refused 2021 anabaptism services? Do you belong to any clubs [...] to sleep or slept in a senior living (including now)? 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 [address] [place], [place] [phone] (Wo rk) 02/22/2022 Office Visit Orthopedic Surgery Kimberlyn Alvarez APRN, C.N.P., D.N.P. [address] [place], [place] [phone] (Wo rk) 03/12/2022 Diagnostic Otorhinolaryngology Blanka Carranza, C.N.P. [address] [place] [address] Aleena Hassan Au.D. [address] [place] [phone] documented as of this encounter Visit Diagnoses Diagnosis Pain Knee Left - Primary documented in this encounter Additional Health Concerns Assessment Noted Time PHQ-9 Depression Total Score: 2 04/22/2015 11:24 AM CS T documented as of this encounter
--- OUTSIDE RECORDS SUMMARY | 2022-01-31 09:39 | XMS_ITS | Encounter Summary ---
:1955 Author Organization [facility] Address [address] [place] [address] Care Team Providers Name Role Phone Unavailable Primary Care Provider Unavailable Reason for Visit Reason Comments Communication Implant Info Encounter Details Date Type Department Care Team Description 07/02/2017 Clinical Department of Cedric Sweeney on Communication Orthopedic Surgery Sudarshan Augustine (Implant Info ) in [address] [address] [place], [place] [phone] [phone] (Work) [phone] Social History Tobacco Use Types Packs/Day Years Used Date Smoking Tobacco: Unknown Smokeless Tobacco: Never Alcohol Habits Answer Date Recorded How often do you have a drink containing 4 or more times a w [place] 07/30/2021 alcohol? How many drinks containing [...] or relatives? How often do you attend jainism or Patient refused 2021 adventism services? 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 Patellar Tendon Preshaped REF- [id number] LOT [id number] 2020-11-22 (01) [id number] documented in this encounter Plan of Treatment Upcoming Encounters Date Type Specialty Care Team Description 02/02/2022 Immunization Family Medicine 02/12/2022 Office Visit Dermatology Lacy Dykes M.D. [address] [place], [place] [phone] (Wo rk) 02/22/2022 Office Visit Orthopedic Surgery Kimberlyn Alvarez APRN, C.N.P., D.N.P. [address] [place], [place] [phone] (Wo rk) 03/12/2022 Diagnostic Otorhinolaryngology Blanka Carranza C.N.P. [address] [place] [address] Aleena Hassan Au.D. [address] [place] [phone] documented as of this encounter Visit Diagnoses Not on filedocumented in this encounter Additional Health Concerns Assessment Noted Time PHQ-9 Depression Total Score: 2 04/22/2015 11:24 AM CS T documented as of this encounter
--- OUTSIDE RECORDS SUMMARY | 2022-01-31 09:39 | XMS_ITS | Encounter Summary ---
:1955 Author Organization [facility] Address [address] [place] [address] Care Team Providers Name Role Phone Unavailable Primary Care Provider Unavailable Reason for Visit Physical Therapy (Routine) - Canceled Specialty Diagnoses / Procedures Referred By Contact Refer red To Contact Orthopedic Surgery Diagnoses Anterior Cruciate Ligament Reconstruction Status Post Cedric Sweeney, [facility] Region Procedures PT Ongoing treatment Sudarshan [address] [place] [address] Referral ID Status Reason Start Date Expiration Date Visits V isits Requested Authorized [id number] Canceled 06/02/2017 04/06/2018 15 24 Encounter Details Date Type Department Care Team Description 08/13/2017 Clinical Support Department of Cedric Sweeney M.D. [address] [place] [phone] Anterior Cruciate Rehabilitation Tushar Ware, P.TPhil [address] [place] [phone] Ligament Services in [facility] Status [place], [place] Post [address] [place] [phone] Social History Tobacco Use Types Packs/Day Years Used Date Smoking Tobacco: Former Cigarettes Quit : 04/07/1987 Smokeless Tobacco: Never Alcohol Habits Answer Date Recorded How often do you have a drink containing 4 or more times a w [place] 07/30/2021 alcohol? How many drinks containing alcohol [...] you attend jainism or Patient refused 2021 christian services? Do you belong to any clubs [...] or slept in a snf (including now)? 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 - 08/13/2017 11:15 AM CDT Physical Therapy Outpatient Treatment Note SUBJECTIVE Patient Name: Priscilla Fitzpatrick Referring Provider: Cedric Sweeney M.D. Rehab Diagnosis: 1. Anterior Cruciate Ligament Reconstruction Status Post Payor: [employer] / Plan: [employer]BS / Product Type: PPO / Total Visit Count: 14 Visit Count since last G-Codes: 14 Pt comments: patient is without complaints. She is back from her business trip today. OBJECTIVE Pain: Pain Assessment Pain Score: 1 Ortho Exam TREATMENT Treatment today consisted of: We continue with strengthening of the right knee. She work on straight leg raises. She worked on short arc quads with also open chain knee extension exercises. This was with 15 lb weights and some manual resistance as tolerated. We had patient work on her hamstring curls. This is progressing well. We had patient work on the leg press machine for 3 sets of 10. This was at 90 lb. She worked on a step Downs. She does have some pain behind her patella with this. She worked on lunges. After this, she worked on squats up against the wall with an exercise ball. She worked on side steps off for the platform. She worked on traveling exercises as well. This was to work on proprioception. She is also on the stair stepper for 15 minutes prior to this. She tolerated this all very well. Total time today was 45minutes of therapeutic exercise. Home Exercise Program/Education: She is to continue with her home exercise program. Assessment Clinical Impression: Patient is progressing very well. Strength is coming around well. Mobility is doing well. Functional Goals and Timeframes: Plan Will try to become more centered around proprioceptive activities. Tushar Ware P.T. Time Spent with Patient Functional G-code Worksheet documented in this encounter Plan of Treatment Upcoming Encounters Date Type Specialty Care Team Description 02/02/2022 Immunization Family Medicine 02/12/2022 Office Visit Dermatology Lacy Dykes M.D. [address] [place], [place] [phone] (Wo ) 02/22/2022 Office Visit Orthopedic Surgery Kimberlyn Alvarez, JOSE DANIEL, C.N.P., D.N.P. [address] [place], [place] [phone] (Wo rk) 03/12/2022 Diagnostic Otorhinolaryngology Blanka Carranza, C.N.P. [address] [place], [place] [phone] Aleena Hassan Au.D. [address] [place] [phone] documented as of this encounter Visit Diagnoses Diagnosis Anterior Cruciate Ligament Reconstructio n Status Post documented in this encounter Additional Health Concerns Assessment Noted Time PHQ-9 Depression Total Score: 2 04/22/2015 11:24 AM CS T documented as of this encounter
--- OUTSIDE RECORDS SUMMARY | 2022-01-31 09:39 | XMS_ITS | Encounter Summary ---
:1955 Author Organization [facility] Address [address] [place] [address] Care Team Providers Name Role Phone Unavailable Primary Care Provider Unavailable Reason for Visit Physical Therapy (Routine) - Canceled Specialty Diagnoses / Procedures Referred By Contact Refer red To Contact Orthopedic Surgery Diagnoses Anterior Cruciate Ligament Reconstruction Status Post Cedric Sweeney, [facility] Region Procedures PT Ongoing treatment Sudarshan [address] [place] [phone] Referral ID Status Reason Start Date Expiration Date Visits V isits Requested Authorized [id number] Canceled 06/02/2017 04/06/2018 15 24 Encounter Details Date Type Department Care Team Description 09/02/2017 Clinical Support Department of Cedric Sweeney M.D. [address] [place] [phone] Anterior Cruciate Rehabilitation Tushar Ware, P.TPhil [address] [place] [phone] Ligament Services in [facility] Status [place], [place] Post [address] [place] [phone] Social History Tobacco Use Types Packs/Day Years Used Date Smoking Tobacco: Former Cigarettes Quit : 04/07/1987 Smokeless Tobacco: Never Alcohol Habits Answer Date Recorded How often do you have a drink containing 4 or more times a w [place] 07/30/2021 alcohol? How many drinks containing [...] you attend mormon or Patient refused 2021 hinduism services? Do [...] or slept in a [facility] (including now)? 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 - 09/02/2017 8:30 AM CDT Physical Therapy Outpatient Treatment Note SUBJECTIVE Patient Name: Priscilla Fitzpatrick Referring Provider: Cedric Sweeney M.D. Rehab Diagnosis: 1. Anterior Cruciate Ligament Reconstruction Status Post Payor: [place] Incentive Targeting / Plan: [employer] BCBS / Product Type: PPO / Total Visit Count: 18 Visit Count since last G-Codes: 18 Pt comments: patient comes in today without complaints for her right knee. However, she feels she may have irritated her left knee on vacation. She does have some pain over the medial joint line of herleft knee. She felt the cortisone did help her right knee but this is becoming more irritating once a gain. She was gone on vacation for the past 2 weeks. OBJECTIVE Pain: Ortho Exam TREATMENT Treatment today consisted of: Patient continued with strengthening today. She worked on knee extension exercises as well as hamstring curls. This was on the treatment table. She worked on leg press exercises. From there patient worked on wall squats which she tolerated better. She is able to go down to a full plane. She did have some pain with her left knee with this. This was more problematic. We then had patient work on side toside cutting exercises at a slow speed. She tolerated this well. We had her work on step Downs. We tried diet isolate out the right quadriceps to do all the work. She is not to push off with her left foot. She is also on the elliptical machine for 5 minutes and then the recumbent bike for 15 minutes. Total time today was 40 minutes of therapeutic exercise. Clinical Impression: Patient tolerated well overall. She is having some increased pain in her left knee this being over the anterior medial joint line. The pain that she is having the patella on her right knee is slowly starting to increase once again. The injection did help temporarily when she is on vacation. Functional Goals and Timeframes: No Data Recorded Plan She will be seeing her service center specialist I believe this Friday. We will continue as needed. Tushar Ware P.T. Time Spent with Patient Functional G-code Worksheet documented in this encounter Plan of Treatment Upcoming Encounters Date Type Specialty Care Team Description 02/02/2022 Immunization Family Medicine 02/12/2022 Office Visit Dermatology Lacy Dykes M.D. [address] [place], [place] [phone] (Wo rk) 02/22/2022 Office Visit Orthopedic Surgery Kimberlyn Alvarez APRN, C.N.P., D.N.P. [address] [place], [place] [phone] (Lisha rk) 03/12/2022 Diagnostic Otorhinolaryngology Blanka Carranza, C.N.P. [address] [place] [address] Aleena Hassan Au.D. [address] [place] [phone] documented as of this encounter Visit Diagnoses Diagnosis Anterior Cruciate Ligament Reconstructio n Status Post documented in this encounter Additional Health Concerns Assessment Noted Time PHQ-9 Depression Total Score: 2 04/22/2015 11:24 AM CS T documented as of this encounter
--- OUTSIDE RECORDS SUMMARY | 2022-01-31 09:39 | XMS_ITS | Encounter Summary ---
:1955 Author Organization [facility] Address [address] [place] [address] Care Team Providers Name Role Phone Unavailable Primary Care Provider Unavailable Reason for Visit Physical Therapy (Routine) - Canceled Specialty Diagnoses / Procedures Referred By Contact Refer red To Contact Orthopedic Surgery Diagnoses Anterior Cruciate Ligament Reconstruction Status Post Cedric Sweeney, [facility] Region Procedures PT Ongoing treatment Sudarshan [address] [place] [phone] Referral ID Status Reason Start Date Expiration Date Visits V isits Requested Authorized [id number] Canceled 06/02/2017 04/06/2018 15 24 Encounter Details Date Type Department Care Team Description 09/19/2017 Clinical Support Department of Cedric Sweeney M.D. [address] [place] [address] Anterior Cruciate Rehabilitation Tushar Ware, P.TPhil [address] [place] [phone] Ligament Services in [facility] Status [place], [place] Post [address] [place] [phone] Social History Tobacco Use Types Packs/Day Years Used Date Smoking Tobacco: Former Cigarettes Quit : 04/07/1987 Smokeless Tobacco: Never Alcohol Habits Answer Date Recorded How often do you have a drink containing 4 or more times a w [place] 07/30/2021 alcohol? How many drinks containing alcohol [...] you attend amish or Patient refused 2021 faith services? 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 - 09/19/2017 8:00 AM CDT Physical Therapy Outpatient Treatment Note SUBJECTIVE Patient Name: Priscilla Fitzpatrick Referring Provider: Cedric Sweeney M.D. Rehab Diagnosis: 1. Anterior Cruciate Ligament Reconstruction Status Post Payor: [place] [employer] / Plan: [place] BCBS / Product Type: PPO / Total Visit Count: 22 Visit Count since last G-Codes: 22 Pt comments: Priscilla comes into therapy today stating that she is doing well overall. She still doeshave pain in the patellar region bilaterally. However, she does feel that this is little better thanprior to the injections. Going up and down stairs is the most difficult for her secondary to this discomfort. It is not related to any type of strength deficits that she has. There is some slight tenderness over the medial joint line of the right knee. Otherwise, she is doing very well. OBJECTIVE Pain: Pain Assessment Pain Score: 2 Ortho Exam patient presents with good motion overall today. This is to 130??. There is no extension lag. Her quadriceps strength is 5/5. She does feel little discomfort with valgus stress. However, this is also some apprehension due to an ACL injury. She showing good balance with proprioceptive training. Hamstring strength is 4+/5. She shows good stability with her gait/ambulation. TREATMENT Treatment today consisted of: Priscilla continued with her exercises today. We address quad strengthening with straight leg raises as well as knee extension exercises with manual resistance and ankle weights. She worked on leg press exercises at 110 lb for 3 sets of 10. We had her work on squatting exercises where she is going down to parallel with the floor. She worked on proprioceptive training as well as cutting side to side. She tolerated this well. Assessment Clinical Impression: At this time, patient is doing very well. She has met her goals. She will be following up with her client application support specialist today. Functional Goals and Timeframes: No Data Recorded Plan We will see with there is any issues will when she sees her client application support specialist. If things are going well we will discontinue therapy at this time. Tushar Ware P.T. Time Spent with Patient Functional G-code Worksheet documented in this encounter Plan of Treatment Upcoming Encounters Date Type Specialty Care Team Description 02/02/2022 Immunization Family Medicine 02/12/2022 Office Visit Dermatology Lacy Dykes M.D. [address] [place] [phone] (Wo rk) 02/22/2022 Office Visit Orthopedic Surgery Kimberlyn Alvarez APRN, C.N.P., D.N.P. [address] [place] [phone] (Wo rk) 03/12/2022 Diagnostic Otorhinolaryngology Blanka Carranza C.NPhilPPhil [address] [place] [address] Aleena Hassan Au.D. [address] [place] [phone] documented as of this encounter Visit Diagnoses Diagnosis Anterior Cruciate Ligament Reconstructio n Status Post documented in this encounter Additional Health Concerns Assessment Noted Time PHQ-9 Depression Total Score: 2 04/22/2015 11:24 AM CS T documented as of this encounter
--- OUTSIDE RECORDS SUMMARY | 2022-01-31 09:39 | XMS_ITS | Encounter Summary ---
:1955 Author Organization [facility] Address [address] [place] [address] Care Team Providers Name Role Phone Unavailable Primary Care Provider Unavailable Reason for Visit Physical Therapy (Routine) - Canceled Specialty Diagnoses / Procedures Referred By Contact Refer red To Contact Orthopedic Surgery Diagnoses Anterior Cruciate Ligament Reconstruction Status Post Cedric Sweeney, [facility] Region Procedures PT Ongoing treatment Sudarshan [address] [phone] Referral ID Status Reason Start Date Expiration Date Visits V isits Requested Authorized [id number] Canceled 06/02/2017 04/06/2018 15 24 Encounter Details Date Type Department Care Team Description 07/28/2017 Clinical Support Department of Cedric Sweeney M.D. [address] [place] [phone] Anterior Cruciate Rehabilitation Tushar Ware, P.TPhil [address] [place] [phone] Ligament Services in [facility] Status [place], [place] Post [address] [place] [phone] Social History Tobacco Use Types Packs/Day Years Used Date Smoking Tobacco: Former Cigarettes Quit : 04/07/1987 Smokeless Tobacco: Never Alcohol Habits Answer Date Recorded How often do you have a drink containing 4 or more times a w [place] 07/30/2021 alcohol? How many drinks containing alcohol [...] or relatives? How often do you attend latter day or Patient refused 2021 islam services? 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 - 07/28/2017 10:00 AM CDT Physical Therapy Outpatient Treatment Note SUBJECTIVE Patient Name: Mrs. Priscilla Fitzpatrick Referring Provider: Cedric Sweeney M.D. Referring Diagnosis: Rehab Diagnosis: 1. Anterior Cruciate Ligament Reconstruction Status Post Onset Date: Payor: [employer] / Plan: [employer] BCBS / Product Type: PPO / Total Visit Count: 11 Visit Count since last G-Codes: 11 Precautions/Restrictions: Patient is now 2 months postop. Pt comments: Patient is without complaints. OBJECTIVE Pain: Pain Assessment Pain Score: 1 Vital Signs: Ortho Exam TREATMENT Treatment today consisted of: We continue to work on strengthening. She warmed up on the stair stepper for 5 minutes. We then had patient work on leg press exercises on machine this at 90 lb. She then worked on hamstring curls with15 lb weights. She worked on knee extension exercises with 15 lb weights. There is some manual resistance with this as well. We had her work on step-downs. We then had her work on hip abduction exercises with Thera-Band to address the core. Lastly, she is on the elliptical machine for another 10 minutes. She tolerated this all well. Home Exercise Program/Education: She continues to do her home exercises. Assessment Clinical Impression: Patient is doing well overall. Her strength is coming around nicely. Functional Goals and Timeframes: Plan We will continue. Tushar Ware P.T. Time Spent with Patient Functional G-code Worksheet documented in this encounter Plan of Treatment Upcoming Encounters Date Type Specialty Care Team Description 02/02/2022 Immunization Family Medicine 02/12/2022 Office Visit Dermatology Lacy Dykes M.D. [address] [place], [place] [phone] (Wo ) 02/22/2022 Office Visit Orthopedic Surgery Kimberlyn Alvarez, JOSE DANIEL, C.N.P., D.N.P. [address] [place], [place] [phone] (Wo rk) 03/12/2022 Diagnostic Otorhinolaryngology Blanka Carranza, C.N.P. [address] [place] [address] Aleena Hassan Au.D. [address] [place] [phone] documented as of this encounter Visit Diagnoses Diagnosis Anterior Cruciate Ligament Reconstructio n Status Post documented in this encounter Additional Health Concerns Assessment Noted Time PHQ-9 Depression Total Score: 2 04/22/2015 11:24 AM CS T documented as of this encounter
--- OUTSIDE RECORDS SUMMARY | 2022-01-31 09:39 | XMS_ITS | Encounter Summary ---
:1955 Author Organization [facility] Address [address] [place] [address] Care Team Providers Name Role Phone Unavailable Primary Care Provider Unavailable Reason for Visit Reason Comments Post-op Encounter Details Date Type Department Care Team Description 07/25/2017 Office Visit Department of Kimberlyn Alvarez, Follow Up E xamination Orthopedic Surgery in [facility], C.N.P., Posto perative Visit Virginia Wagoner D.N.P. (Primary Dx) [address] [place] [phone] Social History Tobacco Use Types Packs/Day Years Used Date Smoking Tobacco: Former Cigarettes Quit : 04/07/1987 Smokeless Tobacco: Never Alcohol Habits Answer Date Recorded How often do you have a drink containing 4 or more times a w [place] 07/30/2021 alcohol? How many drinks containing alcohol [...] or relatives? How often do you attend taoism or Patient refused 2021 oriental orthodox services? 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 - 07/25/2017 9:00 AM CDT Priscilla is a very pleasant 61-year-old female who is status post ACL reconstruction performed on 05/28/2017. She is doing quite well at this time. She continues to be increasing her activity and following guidelines and protocol per physical therapy. Physical exam: Right knee with minimal swelling. Surgical incision is well healed. She is able to flex to 120?? without difficulty and has full extension. She is stable to valgus and varus and does have a definite. On her anterior drawer test. Impression/plan: Priscilla is pleasant 61 yo here today day for follow-up of her ACL reconstruction. She is doing quite well and will continue to work with physical therapy. We will plan to see her back in another 6-8 weeks. Questions were answered documented in this encounter Plan of Treatment Upcoming Encounters Date Type Specialty Care Team Description 02/02/2022 Immunization Family Medicine 02/12/2022 Office Visit Dermatology Lacy Dykes M.D. [address] [place] [phone] ([facility]) 02/22/2022 Office Visit Orthopedic Surgery Kimberlyn Alvarez APRN, C.N.P., D.N.P. [address] [place], [place] [phone] ([facility]) 03/12/2022 Diagnostic Otorhinolaryngology Blanka Carranza, C.N.P. [address] [place], [place] [phone] Aleena Hassan Au.D. [address] [place] [phone] documented as of this encounter Visit Diagnoses Diagnosis Follow Up Examination Postoperative Visi t - Primary documented in this encounter Additional Health Concerns Assessment Noted Time PHQ-9 Depression Total Score: 2 04/22/2015 11:24 AM CS T documented as of this encounter
--- OUTSIDE RECORDS SUMMARY | 2022-01-31 09:39 | XMS_ITS | Encounter Summary ---
:1955 Author Organization [facility] Address [address] [place] [address] Care Team Providers Name Role Phone Unavailable Primary Care Provider Unavailable Reason for Visit Physical Therapy (Routine) - Canceled Specialty Diagnoses / Procedures Referred By Contact Refer red To Contact Orthopedic Surgery Diagnoses Anterior Cruciate Ligament Reconstruction Status Post Cedric Sweeney, [facility] Region Procedures PT Ongoing treatment Sudarshan [address] [place] [phone] Referral ID Status Reason Start Date Expiration Date Visits V isits Requested Authorized [id number] Canceled 06/02/2017 04/06/2018 15 24 Encounter Details Date Type Department Care Team Description 07/08/2017 Clinical Support Department of Cedric Sweeney M.D. [address] [place] [phone] Anterior Cruciate Rehabilitation Tushar Ware, P.TPhil [address] [place] [phone] Ligament Services in [facility] Status [place], [place] Post [address] [place] [phone] Social History Tobacco Use Types Packs/Day Years Used Date Smoking Tobacco: Unknown Smokeless Tobacco: Never Alcohol Habits Answer Date Recorded How often do you have a drink containing 4 or more times a w [place] 07/30/2021 alcohol? How many drinks containing alcohol [...] you attend presybeterian or Patient refused 2021 hoahaoism services? 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 - 07/08/2017 8:00 AM CDT Physical Therapy Outpatient Treatment Note SUBJECTIVE Patient Name: Mrs. Priscilla Fitzpatrick Referring Provider: Cedric Sweeney M.D. Referring Diagnosis: Rehab Diagnosis: 1. Anterior Cruciate Ligament Reconstruction Status Post Onset Date: Payor: [employer] / Plan: [employer] BCBS / Product Type: PPO / Total Visit Count: 6 Visit Count since last G-Codes: 6 Precautions/Restrictions: Patient is now 6 weeks post ACL repair. Pt comments: Patient is without significant complaints. She has been quite active with work. She does a lot of traveling for work. OBJECTIVE Pain: Pain Assessment Pain Score: 2 Vital Signs: Ortho Exam presently, patient has an extension lag of no more than 1-2 degrees. She is able to flex her knee to approximately 130??. Strength is progressing well. TREATMENT Today we continue with strengthening. We had her work on straight leg raises with 5 lb weights. She worked on knee extension exercises with a lb weights in some manual resistance as needed. She worked on the leg press machine for 3 sets of 10. She worked on hamstring curls this again with a lb and manual resistance as needed. From there, patient worked on sidestepping with Thera-Band around her knees. She worked on lunging off of the rebounder. We also had her work on some proprioceptive exercises on the gel cushion. She actually tolerated this quite well overall. Her balance was not significantly different than her left lower extremity. She was then on the Sci Fit for 15 minutes. Assessment Clinical Impression: Patient continues to do well overall. Functional Goals and Timeframes: Plan Will see once again I believe this Friday. Tushar Ware P.T. Time Spent with Patient Functional G-code Worksheet documented in this encounter Plan of Treatment Upcoming Encounters Date Type Specialty Care Team Description 02/02/2022 Immunization Family Medicine 02/12/2022 Office Visit Dermatology Lacy Dykes M.D. [address] [place], [place] [phone] (Wo ramy) 02/22/2022 Office Visit Orthopedic Surgery Kimberlyn Alvarez APRN, C.N.P., D.N.P. [address] [place], [place] [phone] (Wo rk) 03/12/2022 Diagnostic Otorhinolaryngology Blanka Carranza, C.N.P. [address] [place], [place] [phone] Aleena Hassan Au.D. [address] [place] [phone] documented as of this encounter Visit Diagnoses Diagnosis Anterior Cruciate Ligament Reconstructio n Status Post documented in this encounter Additional Health Concerns Assessment Noted Time PHQ-9 Depression Total Score: 2 04/22/2015 11:24 AM CS T documented as of this encounter
--- OUTSIDE RECORDS SUMMARY | 2022-01-31 09:39 | XMS_ITS | Encounter Summary ---
:1955 Author Organization [facility] Address [address] [place] [address] Care Team Providers Name Role Phone Unavailable Primary Care Provider Unavailable Reason for Visit Physical Therapy (Routine) - Canceled Specialty Diagnoses / Procedures Referred By Contact Refer red To Contact Orthopedic Surgery Diagnoses Anterior Cruciate Ligament Reconstruction Status Post Cedric Sweeney, [facility] Region Procedures PT Ongoing treatment Sudarshan [address] [place] [phone] Referral ID Status Reason Start Date Expiration Date Visits V isits Requested Authorized [id number] Canceled 06/02/2017 04/06/2018 15 24 Encounter Details Date Type Department Care Team Description 08/15/2017 Clinical Support Department of Cedric Sweeney M.D. [address] [place] [phone] Anterior Cruciate Rehabilitation Tushar Ware, P.TPhil [address] [place] [phone] Ligament Services in [facility] Status [place], [place] Post [address] [place] [phone] Social History Tobacco Use Types Packs/Day Years Used Date Smoking Tobacco: Former Cigarettes Quit : 04/07/1987 Smokeless Tobacco: Never Alcohol Habits Answer Date Recorded How often do you have a drink containing 4 or more times a w [place] 07/30/2021 alcohol? How many drinks containing alcohol [...] you attend hindu or Patient refused 2021 evangelical services? 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 - 08/15/2017 6:30 AM CDT Physical Therapy Outpatient Treatment Note SUBJECTIVE Patient Name: Priscilla Fitzpatrick Referring Provider: Cedric Sweeney M.D. Rehab Diagnosis: 1. Anterior Cruciate Ligament Reconstruction Status Post Payor: [employer] / Plan: [employer] / Product Type: PPO / Total Visit Count: 15 Visit Count since last G-Codes: 15 Pt comments: patient is without complaints other than the pain she has been having underneath her patella. This makes it difficult for her to go up and down stairs. OBJECTIVE Pain: Pain Assessment Pain Score: 1 Ortho Exam TREATMENT Treatment today consisted of: We continued today with strengthening. This was for quadriceps strengthening. She address straight leg raises as well as on short arc quads. She worked on knee extension exercises with 10 lb weights and some light manual resistance. This does cause some pain underneath the patella once again. She worked on hamstring curls. She worked on the leg press machine. After this, patient worked on balance activities on the BOSU ball. She worked on lunges and also crossovers on the steps. Again, this causes adiscomfort in the patella. We then had her work on some side shuffling only to the right side. Totaltime today was 45 minutes of therapeutic exercise. Assessment Clinical Impression: Patient is doing well overall. She does have a problem with pain in the patellar region. Functional Goals and Timeframes: Plan We will continue next week. She is going to try and establish a time to see the ortho to assess her knee/patella. We did discuss this with the orthopedics. They feel is appropriate to see her for this. Tushar Ware P.T. Time Spent with Patient Functional G-code Worksheet documented in this encounter Plan of Treatment Upcoming Encounters Date Type Specialty Care Team Description 02/02/2022 Immunization Family Medicine 02/12/2022 Office Visit Dermatology Lacy Dykes M.D. [address] [place], [place] [phone] (Wo ) 02/22/2022 Office Visit Orthopedic Surgery Kimberlyn Alvarez APRN, C.N.P., D.N.P. [address] [place], [place] [phone] (Wo ) 03/12/2022 Diagnostic Otorhinolaryngology Blanka Carranza, C.N.P. [address] [place], [place] [phone] Aleena Hassan Au.D. [address] [place] [phone] documented as of this encounter Visit Diagnoses Diagnosis Anterior Cruciate Ligament Reconstructio n Status Post documented in this encounter Additional Health Concerns Assessment Noted Time PHQ-9 Depression Total Score: 2 04/22/2015 11:24 AM CS T documented as of this encounter
--- OUTSIDE RECORDS SUMMARY | 2022-01-31 09:39 | XMS_ITS | Encounter Summary ---
:1955 Author Organization [facility] Address [address] [place] [address] Care Team Providers Name Role Phone Unavailable Primary Care Provider Unavailable Reason for Visit Physical Therapy (Routine) - Canceled Specialty Diagnoses / Procedures Referred By Contact Refer red To Contact Orthopedic Surgery Diagnoses Anterior Cruciate Ligament Reconstruction Status Post Cedric Sweeney, [facility] Region Procedures PT Ongoing treatment Sudarshan [address] [place] [phone] Referral ID Status Reason Start Date Expiration Date Visits V isits Requested Authorized [id number] Canceled 06/02/2017 04/06/2018 15 24 Encounter Details Date Type Department Care Team Description 07/18/2017 Clinical Support Department of Cedric Sweeney M.D. [address] [place] [phone] Anterior Cruciate Rehabilitation Tushar Ware, P.TPhil [address] [place] [phone] Ligament Services in [facility] Status [place], [place] Post [address] [place] [phone] Social History Tobacco Use Types Packs/Day Years Used Date Smoking Tobacco: Unknown Smokeless Tobacco: Never Alcohol Habits Answer Date Recorded How often do you have a drink containing 4 or more times a w [place] 07/30/2021 alcohol? How many drinks containing alcohol [...] or relatives? How often do you attend yazdanism or Patient refused 2021 pentecostalism services? 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 - 07/18/2017 9:30 AM CDT Physical Therapy Outpatient Treatment Note SUBJECTIVE Patient Name: Mrs. Priscilla Fitzpatrick Referring Provider: Cedric Sweeney M.D. Referring Diagnosis: Rehab Diagnosis: 1. Anterior Cruciate Ligament Reconstruction Status Post Onset Date: Payor: [employer] / Plan: [employer]BS / Product Type: PPO / Total Visit Count: 9 Visit Count since last G-Codes: 9 Precautions/Restrictions: Patient is ACL repair. Pt comments: Presently, patient really has no significant pain in the. She notes that she is not feeling well today having had a cold. She still wished to proceed with some therapy. OBJECTIVE Pain: Pain Assessment Pain Score: 1 Vital Signs: Ortho Exam } TREATMENT Treatment today consisted of: Patient warmed up on the stair stepper for approximately 10 minutes. She then worked on leg press exercise. After this, patient worked on knee extension exercises with light manual resistance. She work on hamstring curls with light manual resistance. We then had her work on balance exercises on the gel cushion. She is improving with this. She does have some Weak hip abductors. We instructed patient with Thera-Band for hip abduction strengthening. Total time today was 30 minutes of therapeutic exercise.Assessment Clinical Impression: Patient tolerated well overall. Her strength is coming along nicely. Mobility is doing well. She has an extension lag of no more than 1 degree. Functional Goals and Timeframes: Plan Plan will be to continue. Tushar Ware P.T. Time Spent with Patient Functional G-code Worksheet documented in this encounter Plan of Treatment Upcoming Encounters Date Type Specialty Care Team Description 02/02/2022 Immunization Family Medicine 02/12/2022 Office Visit Dermatology Lacy Dykes M.D. [address] [place], [place] [phone] (Wo rk) 02/22/2022 Office Visit Orthopedic Surgery Kimberlyn Alvarez APRN, C.N.P., D.N.P. [address] [place], [place] [phone] (Wo rk) 03/12/2022 Diagnostic Otorhinolaryngology Blanka Carranza, C.N.P. [address] [place] [address] Aleena Hassan Au.D. [address] [place] [phone] documented as of this encounter Visit Diagnoses Diagnosis Anterior Cruciate Ligament Reconstructio n Status Post documented in this encounter Additional Health Concerns Assessment Noted Time PHQ-9 Depression Total Score: 2 04/22/2015 11:24 AM CS T documented as of this encounter
--- OUTSIDE RECORDS SUMMARY | 2022-01-31 09:39 | XMS_ITS | Encounter Summary ---
:1955 Author Organization [facility] Address [address] [place] [address] Care Team Providers Name Role Phone Unavailable Primary Care Provider Unavailable Reason for Visit Reason Onset Date Comments scheduling 08/14/2017 Encounter Details Date Type Department Care Team Description 08/14/2017 Clinical Communication Department of Tushar Ware Orthopedic Surgery in J, P.T. [address] [phone] Social History Tobacco Use Types Packs/Day Years Used Date Smoking Tobacco: Former Cigarettes Quit : 04/07/1987 Smokeless Tobacco: Never Alcohol Habits Answer Date Recorded How often do you have a drink containing 4 or more times a w [place] 07/30/2021 alcohol? How many drinks containing alcohol [...] you attend christian or Patient refused 2021 yarsanism services? 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 Priscilla asked to talk to Mr Ware because he can squeeze her in. I said I would send a message for a call if she can get squeezed in. Thank you documented in this encounter Plan of Treatment Upcoming Encounters Date Type Specialty Care Team Description 02/02/2022 Immunization Family Medicine 02/12/2022 Office Visit Dermatology Lacy Dykes M.D. [address] [place], [place] [phone] (Wo rk) 02/22/2022 Office Visit Orthopedic Surgery Kimberlyn Alvarez, JOSE DANIEL, C.N.P., D.N.P. [address] [place], [place] [phone] (Wo rk) 03/12/2022 Diagnostic Otorhinolaryngology Blanka Carranza, C.N.P. [address] [place] [address] Aleena Hassan Au.D. [address] [place] [phone] documented as of this encounter Visit Diagnoses Not on filedocumented in this encounter Additional Health Concerns Assessment Noted Time PHQ-9 Depression Total Score: 2 04/22/2015 11:24 AM CS T documented as of this encounter
--- OUTSIDE RECORDS SUMMARY | 2022-01-31 09:39 | XMS_ITS | Encounter Summary ---
:1955 Author Organization [facility] Address [address] [place] [address] Care Team Providers Name Role Phone Unavailable Primary Care Provider Unavailable Encounter Details Date Type Department Care Team Description 10/01/2017 Clinical Support Department of Cedric Sweeney M.D. [address] [place] [phone] Anterior Cruciate Rehabilitation Tushar Ware, P.T. [address] [place] [phone] Ligament Services in [place], [place] Post [address] [place] [phone] Social History Tobacco Use Types Packs/Day Years [...] you attend hindu or Patient refused 2021 orthodoxy services? 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 - 10/01/2017 1:00 PM CDT Physical Therapy Outpatient Treatment Note SUBJECTIVE Visit Count since Last G-Code: 23 Episode Visit Count: 23 Visit Diagnosis: Referring Provider: Cedric Sweeney M.D. Subjective: Priscilal comes into therapy today really with no complaints. Her pain is very manageable.She does have some pain with patellar region at times. However, overall, this is better. She feels her strength is doing well overall but she realizes that there is more strengthening to improve upon. OBJECTIVE patient presents with knee extension strength as 4+/5. Hamstring strength is also 4+/5. She shows good proprioceptive control in comparison to the ipsilateral side. She has been able to perform cutting activities without a lot of significant pain in the knee joint itself. There is some feeling of stre tching this area. However, she does not feel sharp pain. Pain Assessment Pain Score: 1 Measures - Tools Measures - Tools Treatment today consisted of: Therapeutic Activity: Therapeutic Exercise: Today we instructed patient with exercises she [facility]. We did write this down for her to follow on a home exercise form. We included lunges as well as squats. She was instructed with the leg press machine. She is instructed with lunges. We did recommend that she perform hip abduction/abduction exercises. She also has access of the brand marketing coordinator to help assist in her needs. Otherwise, patient is doing very well. She is independent with a home exercise program. She has met her established goals. Neuromuscular Re-education: Home Exercise Program/Education: Patient has been set up on an established home exercise program. She is independent with this. Assessment Clinical Impression Patient has met all of her goals. Knee flexion is within normal limits. Strength is 4+/5. Plan Patient will follow up with a home exercise program as well as exercise at [facility]. She is to call should she have any questions or concerns. Additional Recommendations: Time Spent with Patient Functional G-code Worksheet documented in this encounter Plan of Treatment Upcoming Encounters Date Type Specialty Care Team Description 02/02/2022 Immunization Family Medicine 02/12/2022 Office Visit Dermatology Lacy Dykes M.D. [address] [place], [place] [phone] ([facility]) 02/22/2022 Office Visit Orthopedic Surgery Kimberlyn Alvarez APRN, C.N.P., D.N.P. [address] [place], [place] [phone] ([facility]) 03/12/2022 Diagnostic Otorhinolaryngology Blanka Carranza, C.N.P. [address] [place] [address] Aleena Hassan Au.D. [address] [place] [phone] documented as of this encounter Visit Diagnoses Diagnosis Anterior Cruciate Ligament Reconstructio n Status Post documented in this encounter Additional Health Concerns Assessment Noted Time PHQ-9 Depression Total Score: 2 04/22/2015 11:24 AM CS T documented as of this encounter
--- OUTSIDE RECORDS SUMMARY | 2022-01-31 09:39 | XMS_ITS | Encounter Summary ---
:1955 Author Organization [facility] Address [address] [place] [address] Care Team Providers Name Role Phone Unavailable Primary Care Provider Unavailable Reason for Visit Physical Therapy (Routine) - Canceled Specialty Diagnoses / Procedures Referred By Contact Refer red To Contact Orthopedic Surgery Diagnoses Anterior Cruciate Ligament Reconstruction Status Post Cedric Sweeney, [facility] Region Procedures PT Ongoing treatment Sudarshan [address] [place] [phone] Referral ID Status Reason Start Date Expiration Date Visits V isits Requested Authorized [id number] Canceled 06/02/2017 04/06/2018 15 24 Encounter Details Date Type Department Care Team Description 07/23/2017 Clinical Support Department of Cedric Sweeney M.D. [address] [place] [phone] Anterior Cruciate Rehabilitation Tushar Ware, P.TPhil [address] [place] [phone] Ligament Services in [facility] Status [place], [place] Post [address] [place] [phone] Social History Tobacco Use Types Packs/Day Years Used Date Smoking Tobacco: Unknown Smokeless Tobacco: Never Alcohol Habits Answer Date Recorded How often do you have a drink containing 4 or more times a w [place] 07/30/2021 alcohol? How many drinks containing alcohol [...] you attend yazidism or Patient refused 2021 adventism services? 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 - 07/23/2017 1:30 PM CDT Physical Therapy Outpatient Treatment Note SUBJECTIVE Patient Name: Mrs. Priscilla Fitzpatrick Referring Provider: Cedric Sweeney M.D. Referring Diagnosis: Rehab Diagnosis: No diagnosis found. Onset Date: Payor: [facility] / Plan: [employer] / Product Type: PPO / Total Visit Count: 10 Visit Count since last G-Codes: 10 Precautions/Restrictions: Patient is now approximately 8 weeks post ACL repair. Pt comments: Patient states she is doing well. She really has no pain. She has been doing many of her normal activities. OBJECTIVE Pain: Pain Assessment Pain Score: 1 Vital Signs: Ortho Exam Presently, patient has strength of 4+/5 in the right knee. Hamstring strength is 4+/5. Mobility is within functional limits. TREATMENT Treatment today consisted of: We continue to progress with strengthening. She is on the stair stepper for 5 minutes. She then worked on leg press exercises at 70 lb for 3 sets of 10-15 reps. After this, patient worked on knee extension exercises with 10 lb weights in manual resistance. She work on hamstring curls with a lb weights. This is all for 3 sets of 10. She then work done on a wall squats. After this she work on step-downs. She then worked on proprioceptive training with the gel cushion. This is improving nicely. Lastly,she is on the Sci Fit for 15 minutes at level 5. We did review her home exercises which involve sidestepping and lunging along with the other exercises with Thera-Band. Total time today was 30 minutes of therapeutic exercise. Assessment Clinical Impression: Patient is doing very well overall. Strength is coming around steadily. Functional Goals and Timeframes: Plan We will continue. Tushar Ware P.T. Time Spent with Patient Functional G-code Worksheet documented in this encounter Plan of Treatment Upcoming Encounters Date Type Specialty Care Team Description 02/02/2022 Immunization Family Medicine 02/12/2022 Office Visit Dermatology Lacy Dykes M.D. [address] [place], [place] [phone] (Wo rk) 02/22/2022 Office Visit Orthopedic Surgery Kimberlyn Alvraez APRN, C.N.P., D.N.P. [address] [place], [place] [phone] (Wo rk) 03/12/2022 Diagnostic Otorhinolaryngology Blanka Carranza, C.N.P. [address] [place] [address] Aleena Hassan Au.D. [address] [place] [phone] documented as of this encounter Visit Diagnoses Diagnosis Anterior Cruciate Ligament Reconstructio n Status Post documented in this encounter Additional Health Concerns Assessment Noted Time PHQ-9 Depression Total Score: 2 04/22/2015 11:24 AM CS T documented as of this encounter
--- OUTSIDE RECORDS SUMMARY | 2022-01-31 09:39 | XMS_ITS | Encounter Summary ---
:1955 Author Organization [facility] Address [address] [place] [address] Care Team Providers Name Role Phone Unavailable Primary Care Provider Unavailable Reason for Visit Physical Therapy (Routine) - Canceled Specialty Diagnoses / Procedures Referred By Contact Refer red To Contact Orthopedic Surgery Diagnoses Anterior Cruciate Ligament Reconstruction Status Post Cedric Sweeney, [facility] Region Procedures PT Ongoing treatment Sudarshan [address] [phone] Referral ID Status Reason Start Date Expiration Date Visits V isits Requested Authorized [id number] Canceled 06/02/2017 04/06/2018 15 24 Encounter Details Date Type Department Care Team Description 08/20/2017 Clinical Support Department of Cedric Sweeney M.D. [address] [place] [phone] Anterior Cruciate Rehabilitation Tushar Ware, P.TPhil [address] [place] [phone] Ligament Services in [facility] Status [place], [place] Post [address] [place] [phone] Social History Tobacco Use Types Packs/Day Years Used Date Smoking Tobacco: Former Cigarettes Quit : 04/07/1987 Smokeless Tobacco: Never Alcohol Habits Answer Date Recorded How often do you have a drink containing 4 or more times a w [place] 07/30/2021 alcohol? How many drinks containing [...] you attend tenriism or Patient refused 2021 latter-day services? Do you belong to any clubs [...] slept in a care home (including now)? 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 - 08/20/2017 8:45 AM CDT Physical Therapy Outpatient Treatment Note SUBJECTIVE Patient Name: Priscilla Fitzpatrick Referring Provider: Cedric Sweeney M.D. Rehab Diagnosis: 1. Anterior Cruciate Ligament Reconstruction Status Post Payor: [employer] / Plan: [employer] / Product Type: PPO / Total Visit Count: 17 Visit Count since last G-Codes: 17 Pt comments: patient is without complaints overall. She did have a cortisone injection in her right knee yesterday. At this point, she has not noticed any change. OBJECTIVE Pain: Pain Assessment Pain Score: 2 Ortho Exam TREATMENT Treatment today consisted of: We continued with strengthening today concentrating on strengthening of the hamstrings and quadriceps. We avoided any significant open chain exercises today secondary to the recent injection. She worked on the stair stepper for 15 minutes. She then worked on leg press exercises on machine. She worked on hamstring curls with some light manual resistance and 10 lb on each ankle. She worked on squattingexercises up against the wall. We had her work on step-ups. This did not appear to cause any significant issues in her knee. Total time today was 30 minutes of therapeutic exercise. Assessment Clinical Impression: Patient tolerated well overall. Functional Goals and Timeframes: Plan Patient will be going on vacation for 1 week. She is to continue with her walking at that time. We will follow up when she returns. Tushar Ware P.T. Time Spent with Patient Functional G-code Worksheet documented in this encounter Plan of Treatment Upcoming Encounters Date Type Specialty Care Team Description 02/02/2022 Immunization Family Medicine 02/12/2022 Office Visit Dermatology Lacy Dykes M.D. [address] [place], [place] [phone] (Wo rk) 02/22/2022 Office Visit Orthopedic Surgery Kimberlyn Alvarez, JOSE DANIEL, C.N.P., D.N.P. [address] [place], [place] [phone] (Wo rk) 03/12/2022 Diagnostic Otorhinolaryngology Blanka Carranza, C.N.P. [address] [place] [address] Aleena Hassan Au.D. [address] [place] [phone] documented as of this encounter Visit Diagnoses Diagnosis Anterior Cruciate Ligament Reconstructio n Status Post documented in this encounter Additional Health Concerns Assessment Noted Time PHQ-9 Depression Total Score: 2 04/22/2015 11:24 AM CS T documented as of this encounter
--- OUTSIDE RECORDS SUMMARY | 2022-01-31 09:39 | XMS_ITS | Encounter Summary ---
:1955 Author Organization [facility] Address [address] [place] [address] Care Team Providers Name Role Phone Unavailable Primary Care Provider Unavailable Reason for Visit Physical Therapy (Routine) - Canceled Specialty Diagnoses / Procedures Referred By Contact Refer red To Contact Orthopedic Surgery Diagnoses Anterior Cruciate Ligament Reconstruction Status Post Cedric Sweeney, [facility] Region Procedures PT Ongoing treatment Sudarshan [address] [place] [address] Referral ID Status Reason Start Date Expiration Date Visits V isits Requested Authorized [id number] Canceled 06/02/2017 04/06/2018 15 24 Encounter Details Date Type Department Care Team Description 08/18/2017 Clinical Support Department of Cedric Sweeney M.D. [address] [place] [address] Anterior Cruciate Rehabilitation Tushar Ware, P.TPhil [address] [place] [phone] Ligament Services in [facility] Status [place], [place] Post [address] [place] [phone] Social History Tobacco Use Types Packs/Day Years Used Date Smoking Tobacco: Former Cigarettes Quit : 04/07/1987 Smokeless Tobacco: Never Alcohol Habits Answer Date Recorded How often do you have a drink containing 4 or more times a w [place] 07/30/2021 alcohol? How many drinks containing alcohol [...] you attend confucianism or Patient refused 2021 jainism services? 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 - 08/18/2017 11:00 AM CDT Physical Therapy Outpatient Treatment Note SUBJECTIVE Patient Name: Priscilla Fitzpatrick Referring Provider: Cedric Sweeney M.D. Rehab Diagnosis: 1. Anterior Cruciate Ligament Reconstruction Status Post Payor: [employer] / Plan: [place] BC[employer] / Product Type: PPO / Total Visit Count: 16 Visit Count since last G-Codes: 16 Pt comments: Priscilla comes in today with complaints of pain still in her right knee underneath the patella. Otherwise, the pain she has is minimal. This makes it difficult for her to go up and down stairs. She will be seeing Orthopedics tomorrow. OBJECTIVE Pain: Pain Assessment Pain Score: 4 Ortho Exam TREATMENT Treatment today consisted of: We continued with strengthening today. We continue to progress with her abilities. We concentrated on proprioceptive training today with her other exercises. She worked on the had her work on squats. She is able go to approximately parallel with the floor. However, it is difficult for her to come up secondary to some pain in the patella. She is also on the elliptical machine and the the BOSU ball trying to balance on single leg stance is. We had her work on more functional activities. She worked on traveling exercises off the steps. We had her work on rhythmic movements with her going up and down steps. She worked on hamstring curls as well as knee extensions. She worked on straight leg raises. She worked on leg press exercises. Total time today was 45 minutes of therapeutic exercise. Assessment Clinical Impression: Patient is doing very well overall. She is becoming more aggressive with her activities. She does have some pain underneath the patella which has been limiting her ability for sit strengthening in of knee extension. She is having difficulty going up and down stairs because of this pain. Functional Goals and Timeframes: Plan We will continue. She will be seeing Orthopedics tomorrow for the patellar pain. Tushar Ware P.T. Time Spent with Patient Functional G-code Worksheet documented in this encounter Plan of Treatment Upcoming Encounters Date Type Specialty Care Team Description 02/02/2022 Immunization Family Medicine 02/12/2022 Office Visit Dermatology Lacy Dykes M.D. [address] [place], [place] [phone] (Lisha mccann) 02/22/2022 Office Visit Orthopedic Surgery Kimberlyn Alvarez APRN, C.N.P., D.N.P. [address] [place], [place] [phone] (Lisha mccann) 03/12/2022 Diagnostic Otorhinolaryngology Blanka Carranza, C.N.P. [address] [place] [address] Aleena Hassan Au.D. [address] [place] [phone] documented as of this encounter Visit Diagnoses Diagnosis Anterior Cruciate Ligament Reconstructio n Status Post documented in this encounter Additional Health Concerns Assessment Noted Time PHQ-9 Depression Total Score: 2 04/22/2015 11:24 AM CS T documented as of this encounter
--- OUTSIDE RECORDS SUMMARY | 2022-01-31 09:39 | XMS_ITS | Encounter Summary ---
:1955 Author Organization [facility] Address [address] [place] [address] Care Team Providers Name Role Phone Unavailable Primary Care Provider Unavailable Reason for Visit Physical Therapy (Routine) - Canceled Specialty Diagnoses / Procedures Referred By Contact Refer red To Contact Orthopedic Surgery Diagnoses Anterior Cruciate Ligament Reconstruction Status Post Cedric Sweeney, [facility] Region Procedures PT Ongoing treatment Sudarshan [address] [place] [phone] Referral ID Status Reason Start Date Expiration Date Visits V isits Requested Authorized [id number] Canceled 06/02/2017 04/06/2018 15 24 Encounter Details Date Type Department Care Team Description 07/11/2017 Clinical Support Department of Cedric Sweeney M.D. [address] [place] [phone] Anterior Cruciate Rehabilitation Tushar Ware, P.TPhil [address] [place] [phone] Ligament Services in [facility] Status [place], [place] Post [address] [place] [phone] Social History Tobacco Use Types Packs/Day Years Used Date Smoking Tobacco: Unknown Smokeless Tobacco: Never Alcohol Habits Answer Date Recorded How often do you have a drink containing 4 or more times a w [place] 07/30/2021 alcohol? How many drinks containing alcohol [...] you attend evangelical or Patient refused 2021 taoist services? 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 - 07/11/2017 8:30 AM CDT Physical Therapy Outpatient Treatment Note SUBJECTIVE Patient Name: Mrs. Priscilla Fitzpatrick Referring Provider: Cedric Sweeney M.D. Referring Diagnosis: Rehab Diagnosis: 1. Anterior Cruciate Ligament Reconstruction Status Post Onset Date: Payor: [employer] / Plan: [place] BCBS / Product Type: PPO / Total Visit Count: 7 Visit Count since last G-Codes: 7 Precautions/Restrictions: Patient is now approximately 7 weeks post ACL repair. Pt comments: Patient is doing well overall. 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 OBJECTIVE Pain: Pain Assessment Pain Score: 1 Vital Signs: Ortho Exam TREATMENT Treatment today consisted of: Today we continued with strengthening. She started working on straight leg raises with 4 lb weights.This was with the leg externally rotated. She worked on knee extension exercises with light manual resistance by the therapist. From there, she work on hamstring curls. This was with 8 lb weights. There is some manual resistance with this. From there, patient worked on her leg press exercises. We alsohad her work on lunges off of the rebounder. We then worked on proprioceptive training for balance. She tolerated this all well. This is improving. Lastly, she is on the Sci Fit for 15 minutes. Total time today was 45 minutes of therapeutic exercise. Assessment Clinical Impression: Patient is doing well overall. She is walking fairly well with some slight decrease extension. She has an extension lag of approximately 1-2 degrees. Functional Goals and Timeframes: Plan We will continue to work on strengthening. We will progress as able. Tushar Ware P.T. Time Spent with Patient Functional G-code Worksheet documented in this encounter Plan of Treatment Upcoming Encounters Date Type Specialty Care Team Description 02/02/2022 Immunization Family Medicine 02/12/2022 Office Visit Dermatology Lacy Dykes M.D. [address] [place], [place] [phone] (Wo ramy) 02/22/2022 Office Visit Orthopedic Surgery Kimberlyn Alvarez, JOSE DANIEL, C.N.P., D.N.P. [address] [place], [place] [phone] (Wo rk) 03/12/2022 Diagnostic Otorhinolaryngology Blanka Carranza, C.N.P. [address] [place], [place] [phone] Aleena Hassan Au.D. [address] [place] [phone] documented as of this encounter Visit Diagnoses Diagnosis Anterior Cruciate Ligament Reconstructio n Status Post documented in this encounter Additional Health Concerns Assessment Noted Time PHQ-9 Depression Total Score: 2 04/22/2015 11:24 AM CS T documented as of this encounter
--- OUTSIDE RECORDS SUMMARY | 2022-01-31 09:39 | XMS_ITS | Encounter Summary ---
:1955 Author Organization [facility] Address [address] [place] [address] Care Team Providers Name Role Phone Unavailable Primary Care Provider Unavailable Reason for Referral Outpatient (Routine) - Closed Specialty Diagnoses / Procedures Referred By Contact Refer red To Contact Orthopedic Surgery Kimberlyn Alvarez APRN, [facility] C.N.P., D.N.P. [address] [place] [phone] Referral ID Status Reason Start Date Expiration Date Visits Requ ested Visits Authorized [id number] Closed 10/14/2017 10/14/2018 1 1 Encounter Details Date Type Department Care Team Description 10/14/2017 Orders Only Department of Orthopedic Kimberlyn Alvarez APRN, Surgery in [facility] C.N.P., D.N.P. [address] [phone] [place], [place] [address] [phone] Social History Tobacco Use Types Packs/Day Years [...] you attend faith or Patient refused 2021 orthodoxy services? 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 [address] [place], [place] [phone] (Wo rk) 02/22/2022 Office Visit Orthopedic Surgery Kimberlyn Alvarez APRN, C.N.P., D.N.P. [address] [place], [place] [phone] (Wo rk) 03/12/2022 Diagnostic Otorhinolaryngology Blanka Carranza, C.N.P. [address] [place] [address] Aleena Hassan Au.D. [address] [facility] [place] [phone] Scheduled Referrals Name Type Priority Associated Order Schedule Diagnoses Orthopedic Surgery Outpatient Referral Routine Ex pected: office visit 10/14/2017 (clinic) (Approximate), Expires: 10/14/2020 documented as of this encounter Visit Diagnoses Not on filedocumented in this encounter Additional Health Concerns Assessment Noted Time PHQ-9 Depression Total Score: 2 04/22/2015 11:24 AM CS T documented as of this encounter
--- OUTSIDE RECORDS SUMMARY | 2022-01-31 09:39 | XMS_ITS | Encounter Summary ---
:1955 Author Organization [facility] Address [address] [place] [address] Care Team Providers Name Role Phone Unavailable Primary Care Provider Unavailable Reason for Visit Physical Therapy (Routine) - Canceled Specialty Diagnoses / Procedures Referred By Contact Refer red To Contact Orthopedic Surgery Diagnoses Anterior Cruciate Ligament Reconstruction Status Post Cedric Sweeney, [facility] Region Procedures PT Ongoing treatment Sudarshan [address] [place] [phone] Referral ID Status Reason Start Date Expiration Date Visits V isits Requested Authorized [id number] Canceled 06/02/2017 04/06/2018 15 24 Encounter Details Date Type Department Care Team Description 07/15/2017 Clinical Support Department of Cedric Sweeney M.D. [address] [place] [phone] Anterior Cruciate Rehabilitation Tushar Ware, P.TPhil [address] [place] [phone] Ligament Services in [facility] Status [place], [place] Post [address] [place] [phone] Social History Tobacco Use Types Packs/Day Years Used Date Smoking Tobacco: Unknown Smokeless Tobacco: Never Alcohol Habits Answer Date Recorded How often do you have a drink containing 4 or more times a w [place] 07/30/2021 alcohol? How many drinks containing alcohol [...] you attend judaism or Patient refused 2021 rastafarian services? 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 - 07/15/2017 8:30 AM CDT Physical Therapy Outpatient Treatment Note SUBJECTIVE Patient Name: Mrs. Priscilla Fitzpatrick Referring Provider: Cedric Sweeney M.D. Referring Diagnosis: Rehab Diagnosis: 1. Anterior Cruciate Ligament Reconstruction Status Post Onset Date: Payor: [employer] / Plan: [employer] BCBS / Product Type: PPO / Total Visit Count: 8 Visit Count since last G-Codes: 8 Precautions/Restrictions: Patient is 7 weeks postop ACL repair. Pt comments: Patient is without complaints overall. She feels her mobility is coming around nicely. OBJECTIVE Pain: Pain Assessment Pain Score: 1 Vital Signs: Ortho Exam Presently, knee flexion is to 130??. There is really no significant extension lag at this time. Strength is slowly improving. TREATMENT Treatment today consisted of: Today we had patient work on strengthening once again. She worked on the stair stepper for 5 minutes. She then worked on the leg press machine at 60 lb for 3 sets of 15. After this, patient worked on straight leg raises with 6 lb weights. She worked on short arc quads with 8 lb weights. She tolerated this all well. We are work on hip abduction in side-lying with 6 lb weights. She work on hamstring curls with 8 lb. After this, patient work on her proprioceptive training followed by wall squats. Again, she tolerated this well. Lastly, she is on the Sci Fit for 15 minutes at level 5. Home Exercise Program/Education: She continues to do her home exercises. Assessment Clinical Impression: Patient is doing well overall. Her mobility is doing well. Her gait/ambulation is with little deviation at this time. Strength continues to improve. Her proprioceptive balance is showing good improvement. Functional Goals and Timeframes: Plan We will continue. Tushar Ware P.T. Time Spent with Patient Functional G-code Worksheet documented in this encounter Plan of Treatment Upcoming Encounters Date Type Specialty Care Team Description 02/02/2022 Immunization Family Medicine 02/12/2022 Office Visit Dermatology Lacy Dykes M.D. [address] [place], [place] [phone] (Lisha mccann) 02/22/2022 Office Visit Orthopedic Surgery Kimberlyn Alvarez APRN, C.N.P., D.N.P. [address] [place], [place] [phone] (Wo rk) 03/12/2022 Diagnostic Otorhinolaryngology Blanka Carranza, C.N.P. [address] [place] [address] Aleena Hassan Au.D. [address] [place] [phone] documented as of this encounter Visit Diagnoses Diagnosis Anterior Cruciate Ligament Reconstructio n Status Post documented in this encounter Additional Health Concerns Assessment Noted Time PHQ-9 Depression Total Score: 2 04/22/2015 11:24 AM CS T documented as of this encounter
--- OUTSIDE RECORDS SUMMARY | 2022-01-31 09:39 | XMS_ITS | Encounter Summary ---
:1955 Author Organization [facility] Address [address] [place] [address] Care Team Providers Name Role Phone Unavailable Primary Care Provider Unavailable Reason for Referral Outpatient (Routine) - Closed Specialty Diagnoses / Procedures Referred By Contact Refer red To Contact Diagnoses Pain Knee Right Cedric Sweeney M.D. [facility] Procedures Large Joint Injection [address] [place] [phone] Referral ID Status Reason Start Date Expiration Date Visits Requ ested Visits Authorized [id number] Closed 08/19/2017 02/15/2018 1 1 Reason for Visit Reason Comments Pain She would like an injection after Kannan and Roberto in PT discussed it. She had an ACL done and her biggest problems is walking on steps. Appointment Request (Routine) - Closed Specialty Diagnoses / Procedures Referred By Contact Refer red To Contact Orthopedic Surgery Referral ID Status Reason Start Date Expiration Date Visits Requ ested Visits Authorized [id number] Closed 08/14/2017 02/10/2018 1 1 Encounter Details Date Type Department Care Team Description 08/19/2017 Office Visit Department of Cedric Sweeney Pain Kne e Right Orthopedic Surgery in [place] (Primary Dx) [place], [address] [place] [address] [phone] [place], [place] [phone] (Work) [phone] Social History Tobacco Use Types Packs/Day Years Used Date Smoking Tobacco: Former Cigarettes Quit : 04/07/1987 Smokeless Tobacco: Never Alcohol Habits Answer Date Recorded How often do you have a drink containing 4 or more times a w [place] 07/30/2021 alcohol? How many drinks containing alcohol [...] you attend synagogue or Patient refused 2021 mormon services? 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 - 08/19/2017 3:30 PM CDTAssociated Order(s): LARGE JOINT INJECTION Post-Procedure Diagnose(s): Pain Knee Right Large joint asp-inject Date/Time: 08/19/2017 4:05 PM Performed by: CEDRIC SWEENEY Authorized by: CEDRIC SWEENEY Virtual Customer Assistant utilized: tire manager not needed Risks discussed with: patient Procedural risks discussed, including (but not limited to) the following: allergic reaction, bleeding, transient increased pain, possible continued pain, reaction to medication and infection Procedure purpose: therapeutic Indications: Right knee pain Skin preparation: povidone-iodine Anesthesia method: none Procedure location: knee - Knee site: R knee joint Site prep: patient was prepped and draped in unsual sterile fashion Procedural approach: anterolateral Procedure performed: injection only Needle gauge: 22 G The following medications were administered at the target site(s): Local anesthetic: 4 mL lidocaine (PF) 10 mg/mL (1 %) Corticosteroid: 40 mg triamcinolone acetonide 40 mg/mL Procedure completed successfully: yes Complications: no apparent complications Post-procedure instructions: avoid strenuous activity for 5 days Discharge instructions: dressing care and follow-up with ordering provider documented in this encounter Consult Notes Cedric Sweeney M.D. - 08/19/2017 3:30 PM CDT Priscilla is a 62-year-old woman who is here in regard to her left knee. She is status post ACL reconstruction with patellar tendon allograft. She is doing quite well at this point in time. She still does have some significant discomfort, the knee just feels somewhat inflammatory. She is noted to have some degenerative changes at the time of her scope and ACL reconstruction. PHYSICAL EXAMINATION Examination of her knee, she does have some continued tenderness, as well as a mild effusion presenttoday. Her knee range of motion is just 1-2 degrees short of full extension and flexion. The knee isstable to varus and valgus stress and Danay', negative quadriceps. ASSESSMENT / PLAN Priscilla is a 62-year-old woman, who is status post ACL reconstruction. Her knee does seem to be somewhat inflammatory. I think she has had adequate healing that we could consider doing a cortisone injection just to help out with some of this inflammation. I discussed with her the risks, benefits, and alternatives to this. Her right knee was prepped with iodine. The needle was then placed into the lateral aspect of the knee, injection of 40 mg of Kenalog and Lidocaine were placed. She tolerated this well. We will plan to see her back on as needed basis. Consider in the future the possibility of hyaluronic acid injections. The patient's visit today was 16 minutes long with 12 minutes of counseling, here to continue treatment for her right knee pain, arthritis and ACL reconstruction. Cedric Sweeney M.D. - 08/19/2017 3:30 PM CDT The patient's visit on that date, it was all the above visit, should actually be of her right knee, and the right knee injection was completed. documented in this encounter Plan of Treatment Upcoming Encounters Date Type Specialty Care Team Description 02/02/2022 Immunization Family Medicine 02/12/2022 Office Visit Dermatology Lacy Dykes M.D. [address] [place], [place] [phone] (Wo rk) 02/22/2022 Office Visit Orthopedic Surgery Kimberlyn Alvarez, JOSE DANIEL, C.N.P., D.N.P. [address] [place], [place] [phone] (Wo rk) 03/12/2022 Diagnostic Otorhinolaryngology Blanka Carranza, C.N.P. [address] [place] [address] Aleena Hassan Au.D. [address] [place] [phone] documented as of this encounter Procedures Procedure Name Priority Date/Time Associated Diagnosis Comme nts SC ARTHCS ASP/INJ Routine 08/19/2017 3:30 PM Pain Knee Right R esults for this MJR JFernanda WO US CDT procedure are i n the results section. documented in this encounter Results SC ARTHCS ASP/INJ MJR JT WO US (08/19/2017 3:30 PM CDT) Narrative MMODAL - 08/19/2017 3:30 PM CDT Loreta Crowell R.N. ? 08/27/2017 ??9:52 AM Large joint asp-inject Date/Time: 08/19/2017 4:05 PM Performed by: CEDRIC SWEENEY Authorized by: CEDRIC SWEENEY Virtual Customer Assistant utilized: tire manager not ne eded ?? Risks discussed with: patient Procedural risks discussed, including (b ut not limited to) the following: allergic reaction, bleeding, transient i ncreased pain, possible continued pain, reaction to medication and infecti on Procedure purpose: therapeutic Indications: Right knee pain Skin preparation: povidone-iodine Anesthesia method: none Procedure location: knee - Knee site: R knee joint Site prep: patient was prepped and drape d in unsual sterile fashion ?? Procedural approach: anterolateral Procedure performed: injection only Needle gauge: 22 G The following medications were administe red at the target site(s): ??Local anesthetic: 4 mL lidocaine (PF) 10 mg/mL (1 %) ??Corticosteroid: 40 mg triamcinolone a cetonide 40 mg/mL Procedure completed successfully: yes Complications: no apparent complications ?Post-procedure instructions: avoid st renuous activity for 5 days ??Discharge instructions: dressing care and follow-up with ordering provider Cedric Sweeney M.D. PROCEDURE/MINOR SURGICAL ORD ERABLES Performing Organization Address City/State/ZIP Code Phon e Number MMODAL MMODAL NA documented in this encounter Visit Diagnoses Diagnosis Pain Knee Right - Primary documented in this encounter Administered Medications Inactive Administered Medications - up to 3 most recent administrations Medication Order MAR Action Action Date Dose Rate Site lidocaine (PF) 10 mg/mL (1 %) Given 08/19/2017 4:05 PM CDT 4 mL injection 4 mL (XYLOCAINE) 4 mL, infiltration, One-Time Injection, Starting on Fri08/19/17 at 1605, For 1 dose triamcinolone acetonide injection 40 mg Given 08/19/2017 4:05 PM CDT 40 mg (KENALOG-40) 40 mg, intra-articular, One-Time Injection, Starting on Fri08/19/17 at 1605, For 1 dose documented in this encounter Additional Health Concerns Assessment Noted Time PHQ-9 Depression Total Score: 2 04/22/2015 11:24 AM CS T documented as of this encounter
--- OUTSIDE RECORDS SUMMARY | 2022-01-31 09:39 | XMS_ITS | Encounter Summary ---
:1955 Author Organization [facility] Address [address] [place] [address] Care Team Providers Name Role Phone Unavailable Primary Care Provider Unavailable Reason for Visit Physical Therapy (Routine) - Canceled Specialty Diagnoses / Procedures Referred By Contact Refer red To Contact Orthopedic Surgery Diagnoses Anterior Cruciate Ligament Reconstruction Status Post Cedric Sweeney, [facility] Region Procedures PT Ongoing treatment Sudarshan [address] [place] [address] Referral ID Status Reason Start Date Expiration Date Visits V isits Requested Authorized [id number] Canceled 06/02/2017 04/06/2018 15 24 Encounter Details Date Type Department Care Team Description 09/08/2017 Clinical Support Department of Cedric Sweeney M.D. [address] [place] [address] Anterior Cruciate Rehabilitation Tushar Ware, P.TPhil [address] [place] [phone] Ligament Services in [facility] Status [place], [place] Post [address] [place] [phone] Social History Tobacco Use Types Packs/Day Years Used Date Smoking Tobacco: Former Cigarettes Quit : 04/07/1987 Smokeless Tobacco: Never Alcohol Habits Answer Date Recorded How often do you have a drink containing 4 or more times a w [place] 07/30/2021 alcohol? How many drinks containing [...] or relatives? How often do you attend pentecostal or Patient refused 2021 sikh services? 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 - 09/08/2017 8:45 AM CDT Physical Therapy Outpatient Treatment Note SUBJECTIVE Patient Name: Priscilla Fitzpatrick Referring Provider: Cedric Sweeney M.D. Rehab Diagnosis: 1. Anterior Cruciate Ligament Reconstruction Status Post Payor: [employer] / [employer] / Plan: [employer] BCBS / Product Type: PPO / Total Visit Count: 20 Visit Count since last G-Codes: 20 Pt comments: patient comes in today stating that she is feeling little better overall as compared tolast week. She still feels she has a cold. Otherwise, her knee itself is doing fairly well. The injections have worn off where she still does have some pain in the patellar region bilaterally. OBJECTIVE Pain: Pain Assessment Pain Score: 2 Ortho Exam At this point, knee mobility is within functional limits. She has no extension lag at this time. On knee extension strength on the right is 4+/5. This Is in comparison to the ipsilateral side. Hamstring strength is 4+/5 bilaterally. we had patient work on knee extension exercises today trying to stay within somewhat of a pain-free range due to the patellar irritation. She worked on wall squats and leg press exercises on the machine. We had her work on lunges off the rebounder. This cause more pain in the patella on left greater than right. We had her work on side shuffles. She became somewhat shortof breath and she had a stop to rest. We did check her blood pressure which was 120/60. Heart rate was 120 beats per minute. She did recover rather quickly with this. TREATMENT Treatment today consisted of:we had patient work on knee extension exercises today trying to stay within somewhat of a pain-free range due to the patellar irritation. She worked on wall squats and leg press exercises on the machine. We had her work on lunges off the rebounder. This cause more pain in the patella on left greater than right. We had her work on side shuffles. She became somewhat short of breath and she had a stop to rest. We did check her blood pressure which was 120/60. Heart rate [id number] beats per minute. She did recover rather quickly with this. {Assessment Clinical Impression: Patient tolerated well overall. Her strength is coming around steadily overall. Her stability is good. She is having some pain in both patellas left greater than right now. This may be affecting summerstrength with knee extension. Functional Goals and Timeframes: No Data Recorded Plan I we are going to give this 1 week. We will see how she is doing at that time. She is nearing most of her goals. Tushar Ware P.T. Time Spent with Patient Functional G-code Worksheet documented in this encounter Plan of Treatment Upcoming Encounters Date Type Specialty Care Team Description 02/02/2022 Immunization Family Medicine 02/12/2022 Office Visit Dermatology Lacy Dykes M.D. [address] [place] [phone] (Wo rk) 02/22/2022 Office Visit Orthopedic Surgery Kimberlyn Alvarez APRN, C.N.P., D.N.P. [address] [place], [place] [phone] (Wo rk) 03/12/2022 Diagnostic Otorhinolaryngology Blanka Carranza, C.N.P. [address] [place] [address] Aleena Hassan Au.D. [address] [place] [phone] documented as of this encounter Visit Diagnoses Diagnosis Anterior Cruciate Ligament Reconstructio n Status Post documented in this encounter Additional Health Concerns Assessment Noted Time PHQ-9 Depression Total Score: 2 04/22/2015 11:24 AM CS T documented as of this encounter
--- OUTSIDE RECORDS SUMMARY | 2022-01-31 09:39 | XMS_ITS | Encounter Summary ---
:1955 Author Organization [facility] Address [address] [place] [address] Care Team Providers Name Role Phone Unavailable Primary Care Provider Unavailable Reason for Referral MRI/CAT/PET Scan (Routine) - Closed Specialty Diagnoses / Procedures Referred By Contact Refer red To Contact Radiology Diagnoses Primary Osteoarthritis Knee Left Kimberlyn Alvarez, JOSE DANIEL, [facility] Region Procedures MR Knee Left without IV Contrast ND MRI LWR EXT JOINT WO CNTRST HC MRI LWR EXT JOINT WO CNTRST ND MRI LWR EXT JOINT WO CNTRST C.N.P., D.N.P. [address] [place] [phone] Referral ID Status Reason Start Date Expiration Date Visits Requ ested Visits Authorized [id number] Closed 09/19/2017 09/19/2018 1 1 Reason for Visit Auth/Cert Specialty Diagnoses / Procedures Referred By Contact Refer red To Contact Diagnoses Unilateral primary osteoarthritis, left knee Primary Osteoarthritis Knee Left Procedures ND MRI LWR EXT JOINT WO CNTRST MR KNEE LEFT WITHOUT IV CONTRAST [[id number]] Referral ID Status Reason Start Date Expiration Date Visits Requ ested Visits Authorized [id number] 1 1 Encounter Details Date Type Department Care Team Description 10/09/2017 Hospital Encounter Department of Kimberlyn Alvarez Prima ry Osteoarthritis Radiology in [place] JOSE DANIEL CPhilNJesusita., Knee [place], [place] D.N.P. [address] [phone] Social History Tobacco Use Types Packs/Day Years Used Date Smoking Tobacco: Former Cigarettes Quit : 04/07/1987 Smokeless Tobacco: Never Alcohol Habits Answer Date Recorded How often do you have a drink containing 4 or more times a w [place] 07/30/2021 alcohol? How many drinks containing alcohol [...] you attend pentecostal or Patient refused 2021 jewish services? 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 [address] [place], [place] [phone] (Wo rk) 02/22/2022 Office Visit Orthopedic Surgery Kimberlyn Alvarez APRN, C.N.P., D.N.P. [address] [place], [place] [phone] (Wo rk) 03/12/2022 Diagnostic Otorhinolaryngology Blanka Carranza, C.N.P. [address] [place] [address] Aleena Hassan Au.D. [address] [place] [phone] documented as of this encounter Procedures Procedure Name Priority Date/Time Associated Diagnosis Comme nts MR KNEE LEFT RAD - Routine 10/09/2017 10:38 Primary Results fo r WITHOUT IV (most inpatients AM CDT Osteoarthritis Knee this procedure CONTRAST and all Left are in the outpatients) results section. documented in this encounter Results MR Knee Left without IV Contrast (10/09/2017 10:38 AM CDT) Anatomical Region Laterality Modality Lower Extremity, Knee, Musculoskeletal RST LOS Left Magnetic Resonance Specimen (Source) Anatomical Collection Method Collection Time Re ceived Time Location / / Volume Laterality 10/09/2017 12:07 PM CDT Impressions 10/09/2017 12:23 PM CDT IMPRESSION: 1. ??Horizontal oblique tear of the medi al meniscal body and posterior horn. 2. ??Lateral meniscus is intact. 3. ??Tricompartmental areas of full-thic kness fissuring and subchondral edema. Narrative 10/09/2017 12:23 PM CDT EXAM: MR KNEE LEFT WITHOUT IV CONTRAST COMPARISON: 06/15/2013 radiographs. No re cent radiographs available for comparison. FINDINGS: Horizontal oblique tear of the medial me niscal body and posterior horn, example series 7 image 12 and coronal images 21. 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 Fu ll-thickness fissuring and subchondral edema involves the medial aspect of the medial tibial plateau, series 7 image 13. No lateral meniscal tear. Full-thickness fissuring of the central weightbearing lateral femoral condyle with mild subcho ndral edema, example series 5 image 10 and series 7 image 13. Other scattered g rade 2-3 areas of chondromalacia of the lateral compartment. Grade 4 fissuring and subchondral edema of the patellar cartilage involving the medial eminence and adjacent medial late ral patellar facets. High-grade partial-thickness trochlear fissuring. ACL and PCL are intact. Mild proximal pa tellar tendinopathy. Medial collateral ligament is intact. Lateral supporting s tructures are intact. Minimal increased signal in the suprapatellar fat. Procedure Note Joshua Hernandez M.D. - 10/09/2017Formatt ing of this note might be different from the original. EXAM: MR KNEE LEFT WITHOUT IV CONTRAST COMPARISON: 06/15/2013 radiographs. No re cent radiographs available for comparison. FINDINGS: Horizontal oblique tear of the medial me niscal body and posterior horn, example series 7 image 12 and coronal images 21. 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 Fu ll-thickness fissuring and subchondral edema involves the medial aspect of the medial tibial plateau, series 7 image 13. No lateral meniscal tear. Full-thickness fissuring of the central weightbearing lateral femoral condyle with mild subcho ndral edema, example series 5 image 10 and series 7 image 13. Other scattered g rade 2-3 areas of chondromalacia of the lateral compartment. Grade 4 fissuring and subchondral edema of the patellar cartilage involving the medial eminence and adjacent medial late ral patellar facets. High-grade partial-thickness trochlear fissuring. ACL and PCL are intact. Mild proximal pa tellar tendinopathy. Medial collateral ligament is intact. Lateral supporting s tructures are intact. Minimal increased signal in the suprapatellar fat. IMPRESSION: 1. Horizontal oblique tear of the medial meniscal body and posterior horn. 2. Lateral meniscus is intact. 3. Tricompartmental areas of full-thickn ess fissuring and subchondral edema. Kimberlyn Alvarez APRN, C.N.P., D.N.P. IMG MRI PROCEDURES documented in this encounter Visit Diagnoses Diagnosis Primary Osteoarthritis Knee Left documented in this encounter Additional Health Concerns Assessment Noted Time PHQ-9 Depression Total Score: 2 04/22/2015 11:24 AM CS T documented as of this encounter
--- OUTSIDE RECORDS SUMMARY | 2022-01-31 09:39 | XMS_ITS | Encounter Summary ---
:1955 Author Organization [facility] Address [address] [place] [address] Care Team Providers Name Role Phone Unavailable Primary Care Provider Unavailable Reason for Referral MRI/CAT/PET Scan (Routine) - Closed Specialty Diagnoses / Procedures Referred By Contact Refer red To Contact Radiology Diagnoses Primary Osteoarthritis Knee Left Kimberlyn Alvarez, JOSE DANIEL, [facility] Region Procedures MR Knee Left without IV Contrast CT MRI LWR EXT JOINT WO CNTRST HC MRI LWR EXT JOINT WO CNTRST CT MRI LWR EXT JOINT WO CNTRST C.N.P., D.N.P. [address] [place] [phone] Referral ID Status Reason Start Date Expiration Date Visits Requ ested Visits Authorized [id number] Closed 09/19/2017 09/19/2018 1 1 Reason for Visit Reason Comments Post-op S/p Right knee arthroscopy, partial medial meniscectomy, arthroscopically assisted ACL reconstruction using patellar tendon allograft 05/28 Pain Some swelling Appointment Request (Routine) - Closed Specialty Diagnoses / Procedures Referred By Contact Refer red To Contact Family Medicine Referral ID Status Reason Start Date Expiration Date Visits Requ ested Visits Authorized [id number] Closed 08/20/2017 02/16/2018 1 1 Encounter Details Date Type Department Care Team Description 09/19/2017 Office Visit Department of Kimberlyn Alvarez, Follow Up E xamination Postoperative Visit (Primary Dx); Orthopedic Surgery in [place], Prima ry Osteoarthritis Knee Left Virginia Wagoner D.N.P. [address] [place] [phone] Social History Tobacco Use Types Packs/Day Years Used Date Smoking Tobacco: Former Cigarettes Quit : 04/07/1987 Smokeless Tobacco: Never Alcohol Habits Answer Date Recorded How often do you have a drink containing 4 or more times a w [place] 07/30/2021 alcohol? How many drinks containing alcohol [...] or relatives? How often do you attend holiness or Patient refused 2021 christian services? 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 - 09/19/2017 9:00 AM CDT Priscilla is very pleasant 62-year-old female comes in today status post right ACL reconstruction withpatellar tendon allograft. She is doing quite well at this time. She has continued to work with physical therapy her range of motion in strength are continuing to improve. On her last visit she did have a cortisone injection and noted some improvement with her symptoms. She does continue to have pain in her patellar region expectedly noted with steps. 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 She has symptoms in both knees that are significantin the patellar area despite her physical therapy. She is concerned today that she has some left knee pain that occurred while she was on a trip. She did not fall but does note some medial pain to palpation and occasionally some instability. Physical exam general patient appears nondistressed right knee with just mild effusion present. Her range of motion is excellent. She is stable to valgus and varus and Danay's test is negative. She has excellent quadriceps strength on the right side. Left knee with mild medial effusion. She is stable to valgus and varus but does have some discomfort with varus. States she is stable with negative Danay's test. She has some significant medial joint line tenderness to palpation expectedly when compared to contralateral side. Impression and plan 1. Status post ACL reconstruction of her right knee. I think patient is doing excellent at this time she will continue with her home exercises. She definitely has some patellofemoral pain that does continue and she notes pain also on her left knee. She does have noted degenerative joint disease and would benefit from hyaluronic injections bilaterally. She her schedule is quite tight and she will consider this for October. 2. Left knee pain I suspect this could be a meniscal injury. Will go ahead and order an MRI today and consider treatment options if positive. We did discuss for going the scan and proceeding with a cortisone injection however really feel we should evaluate the meniscus. Patient agrees with this plan and understand 12 min was spent with patient of which 8 min was counseling and treatment options regarding her leftknee pain in addition to evaluation of her status post right ACL surgery documented in this encounter Plan of Treatment Upcoming Encounters Date Type Specialty Care Team Description 02/02/2022 Immunization Family Medicine 02/12/2022 Office Visit Dermatology Lacy Dykes M.D. [address] [place], [place] [phone] (Wo rk) 02/22/2022 Office Visit Orthopedic Surgery Kimberlyn Alvarez APRN C.N.P., D.N.P. [address] [facility] [place] [place] [phone] (Wo rk) 03/12/2022 Diagnostic Otorhinolaryngology Blanka Carranza, C.N.P. [address] [place], [place] [phone] Aleena Hassan Au.D. [address] [facility] [place] [phone] documented as of this encounter Results MR Knee Left without [...] documented in this encounter Visit Diagnoses Diagnosis Follow Up Examination Postoperative Visi t - Primary Primary Osteoarthritis Knee Left Primary Osteoarthritis Knee Left documented in this encounter Additional Health Concerns Assessment Noted Time PHQ-9 Depression Total Score: 2 04/22/2015 11:24 AM CS T documented as of this encounter
--- OUTSIDE RECORDS SUMMARY | 2022-01-31 09:39 | XMS_ITS | Encounter Summary ---
:1955 Author Organization [facility] Address [address] [place] [address] Care Team Providers Name Role Phone Unavailable Primary Care Provider Unavailable Reason for Visit Physical Therapy (Routine) - Canceled Specialty Diagnoses / Procedures Referred By Contact Refer red To Contact Orthopedic Surgery Diagnoses Anterior Cruciate Ligament Reconstruction Status Post Cedric Sweeney, [facility] Region Procedures PT Ongoing treatment Sudarshan [address] [place] [address] Referral ID Status Reason Start Date Expiration Date Visits V isits Requested Authorized [id number] Canceled 06/02/2017 04/06/2018 15 24 Encounter Details Date Type Department Care Team Description 09/23/2017 Clinical Support Department of Cedric Sweeney M.D. [address] [place] [phone] Anterior Cruciate Rehabilitation Tushar Ware, P.TPhil [address] [place] [phone] Ligament Services in [facility] Status [place], [place] Post [address] [place] [phone] Social History Tobacco Use Types Packs/Day Years Used Date Smoking Tobacco: Former Cigarettes Quit : 04/07/1987 Smokeless Tobacco: Never Alcohol Habits Answer Date Recorded How often do you have a drink containing 4 or more times a w [place] 07/30/2021 alcohol? How many drinks containing alcohol [...] or relatives? How often do you attend uatsdin or Patient refused 2021 faith services? 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 - 09/23/2017 8:30 AM CDT Physical Therapy Outpatient Treatment Note SUBJECTIVE Patient Name: Priscilla Fitzpatrick Referring Provider: Cedric Sweeney M.D. Rehab Diagnosis: 1. Anterior Cruciate Ligament Reconstruction Status Post Payor: [facility] [employer] / Plan: [employer] / Product Type: PPO / Total Visit Count: Visit count could not be calculated. Make sure you are using a visit which is associated with an episode. Visit Count since last G-Codes: Visit count could not be calculated. Make sure you are using a visitwhich is associated with an episode. Pt comments: Priscilla was in to see Orthopedics last week. They feel she is doing well overall. They feel that she could follow up with her home exercises. She is having some issues with pain in left knee for which they will order up on MRI. OBJECTIVE Pain: Pain Assessment Pain Score: 0 - No pain Ortho Exam today, patient presents with minimal pain on a in the left knee. She really has no pain in her right knee at this time. Her mobility is doing well overall. This is all within functional limits. Her strength is 4+/5 or better for knee extension/flexion. Her proprioception is improving steadily. She shows no compromise in her gait. TREATMENT Treatment today consisted of: Today we continue with strengthening of the quads and hamstrings. She did warm up on the elliptical machine for this for 15 minutes. We had her work on her proprioceptive training once again as well. This continues to improve. Total time today was 30 minutes of therapeutic exercise. Home Exercise Program/Education: Assessment Clinical Impression: Patient is doing very well overall. She [facility]. Functional Goals and Timeframes: No Data Recorded Plan Patient will schedule 1 appointment at the [facility] at which point we will instruct patient with more aggressive exercises as she continues to progress with her mobility and strength. After this, we will discontinue with formal therapy. Tushar Ware P.T. Time Spent with Patient Functional G-code Worksheet documented in this encounter Plan of Treatment Upcoming Encounters Date Type Specialty Care Team Description 02/02/2022 Immunization Family Medicine 02/12/2022 Office Visit Dermatology Lacy Dykes M.D. [address] [place] [phone] (Lisha mccann) 02/22/2022 Office Visit Orthopedic Surgery Kimberlyn Alvarez APRN, C.N.P., D.N.P. [address] [place] [phone] (Lisha mccann) 03/12/2022 Diagnostic Otorhinolaryngology Blanka Carranza C.N.P. [address] [place] [address] Aleena Hassan Au.D. [address] [place] [phone] documented as of this encounter Visit Diagnoses Diagnosis Anterior Cruciate Ligament Reconstructio n Status Post documented in this encounter Additional Health Concerns Assessment Noted Time PHQ-9 Depression Total Score: 2 04/22/2015 11:24 AM CS T documented as of this encounter
--- OUTSIDE RECORDS SUMMARY | 2022-01-31 09:39 | XMS_ITS | Encounter Summary ---
:1955 Author Organization [facility] Address [address] [place] [address] Care Team Providers Name Role Phone Unavailable Primary Care Provider Unavailable Reason for Visit Physical Therapy (Routine) - Canceled Specialty Diagnoses / Procedures Referred By Contact Refer red To Contact Orthopedic Surgery Diagnoses Anterior Cruciate Ligament Reconstruction Status Post Cedric Sweeney, [facility] [employer] [facility] Region Procedures PT Ongoing treatment Sudarshan [address] [place] [phone] Referral ID Status Reason Start Date Expiration Date Visits V isits Requested Authorized [id number] Canceled 06/02/2017 04/06/2018 15 24 Encounter Details Date Type Department Care Team Description 08/04/2017 Clinical Support Department of Cedric Sweeney M.D. [address] [place] [address] Anterior Cruciate Rehabilitation Tsuhar Ware, P.TPhil [address] [place] [phone] Ligament Services in [facility] Status [place], [place] Post [address] [place] [phone] Social History Tobacco Use Types Packs/Day Years Used Date Smoking Tobacco: Former Cigarettes Quit : 04/07/1987 Smokeless Tobacco: Never Alcohol Habits Answer Date Recorded How often do you have a drink containing 4 or more times a w [place] 07/30/2021 alcohol? How many drinks containing alcohol [...] you attend nondenominational or Patient refused 2021 presybeterian services? 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 - 08/04/2017 10:30 AM CDT Physical Therapy Outpatient Treatment Note SUBJECTIVE Patient Name: Priscilla Fitzpatrick Referring Provider: Cedric Sweeney M.D. Rehab Diagnosis: 1. Anterior Cruciate Ligament Reconstruction Status Post Payor: [employer] / Plan: [employer] BCBS / Product Type: PPO / Total Visit Count: 12 Visit Count since last G-Codes: 12 Precautions/Restrictions: Patient is status post ACL repair. Pt comments: Patient states that she has no significant issues at this time. OBJECTIVE Pain: Pain Assessment Pain Score: 1 Ortho Exam TREATMENT Treatment today consisted of: {we continue with strengthening today. She started on the stair stepper for 10 minutes. This was at level 2. At this, she worked on leg press exercises on machine this being at 80 lb. She worked on straight leg raises with 10 lb weights on each leg. She worked on knee extensions in short sitting with 10 lb weights as well as some light manual resistance. This would be equivalent to 14- 15 lb. She thenworked on hamstring curls in the prone position. After this, patient worked on squatting exercises both against the wall and along the stairs. She worked on lunging exercises. She tolerated this well. Total time today was 30 minutes of therapeutic exercise. Home Exercise Program/Education: She continues with her home exercise program. Assessment Clinical Impression: Patient is doing well overall. She still has difficulty trying to squat beyond 60?? with knee flexion. Strength is slowly improving for knee extension. Straight leg raises are doing well. Functional Goals and Timeframes: Plan Will see once again later this week. Tushar Ware P.T. Time Spent with Patient Functional G-code Worksheet documented in this encounter Plan of Treatment Upcoming Encounters Date Type Specialty Care Team Description 02/02/2022 Immunization Family Medicine 02/12/2022 Office Visit Dermatology Lacy Dykes M.D. [address] [place], [place] [phone] (Lisha mccann) 02/22/2022 Office Visit Orthopedic Surgery Kimberlyn Alvarez APRN C.N.P., D.N.P. [address] [place], [place] [phone] (Wo ramy) 03/12/2022 Diagnostic Otorhinolaryngology Blanka Carranza, C.N.P. [address] [place] [address] Aleena Hassan Au.D. [address] [place] [phone] documented as of this encounter Visit Diagnoses Diagnosis Anterior Cruciate Ligament Reconstructio n Status Post documented in this encounter Additional Health Concerns Assessment Noted Time PHQ-9 Depression Total Score: 2 04/22/2015 11:24 AM CS T documented as of this encounter
--- OUTSIDE RECORDS SUMMARY | 2022-01-31 09:39 | XMS_ITS | Encounter Summary ---
:1955 Author Organization [facility] [place] Address [address] [place] [address] Care Team Providers Name Role Phone Unavailable Primary Care Provider Unavailable Reason for Visit Physical Therapy (Routine) - Canceled Specialty Diagnoses / Procedures Referred By Contact Refer red To Contact Orthopedic Surgery Diagnoses Anterior Cruciate Ligament Reconstruction Status Post Cedric Sweeney, [facility] Region Procedures PT Ongoing treatment Sudarshan [address] [address] Referral ID Status Reason Start Date Expiration Date Visits V isits Requested Authorized [id number] Canceled 06/02/2017 04/06/2018 15 24 Encounter Details Date Type Department Care Team Description 07/25/2017 Clinical Support Department of Cderic Sweeney M.D. [address] [place] [address] Anterior Cruciate Rehabilitation Tushar Ware, P.TPhil [address] [place] [phone] Ligament Services in [facility] Status [place], [place] Post [address] [place] [phone] Social History Tobacco Use Types Packs/Day Years Used Date Smoking Tobacco: Former Cigarettes Quit : 04/07/1987 Smokeless Tobacco: Never Alcohol Habits Answer Date Recorded How often do you have a drink containing 4 or more times a w [place] 07/30/2021 alcohol? How many drinks containing alcohol [...] you attend mu-ism or Patient refused 2021 sikh services? 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 - 07/25/2017 8:00 AM CDT Physical Therapy Outpatient Treatment Note SUBJECTIVE Patient Name: Mrs. Priscilla Fitzpatrick Referring Provider: Cedric Sweeney M.D. Referring Diagnosis: Rehab Diagnosis: 1. Anterior Cruciate Ligament Reconstruction Status Post Onset Date: Payor: [employer] / Plan: [employer] BCBS / Product Type: PPO / Total Visit Count: 10 Visit Count since last G-Codes: 10 Precautions/Restrictions: Patient is post ACL repair. Pt comments: Patient was sore in the knee after treatment last time. We worked her quadriceps more aggressively. OBJECTIVE Pain: Pain Assessment Pain Score: 1 Vital Signs: Ortho Exam Patient is with no swelling in the knee atThis time. She has a solid end feel with anterior drawer test. There is no significant pain in the knee this morning. TREATMENT Treatment today consisted of: We continue with strengthening. She is on the stationary bike for increased mobility of for 5 minutes. She then worked on leg press exercises on machine at 60 lb. From there, patient work on hamstring curls with 10 lb weights. She worked on straight leg raises with 8 lb weights. She then worked on knee extension exercises with 12-15 lb. She then worked on wall slides with a ball behind her back. She worked on squatting exercises along the T-bar to slowly lower herself down. She then worked on lungesup against the rebounder. Lastly she worked on balance on the BOSU ball. This was challenging for her. Total time today was 30 minutes of therapeutic exercise. Assessment Clinical Impression: Patient is doing well overall. Her strength is coming along nicely. Functional Goals and Timeframes: Plan Plan will be to continue. She does have a follow-up appointment with Orthopedics today. Tushar Ware P.T. Time Spent with Patient Functional G-code Worksheet documented in this encounter Plan of Treatment Upcoming Encounters Date Type Specialty Care Team Description 02/02/2022 Immunization Family Medicine 02/12/2022 Office Visit Dermatology Lacy Dykes M.D. [address] [place], [place] [phone] (Wo rk) 02/22/2022 Office Visit Orthopedic Surgery Kimberlyn Alvarez, JOSE DANIEL, C.N.P., D.N.P. [address] [place], [place] [phone] (Wo rk) 03/12/2022 Diagnostic Otorhinolaryngology Blanka Carranza, C.N.P. [address] [place] [address] Aleena Hassan Au.D. [address] [place] [phone] documented as of this encounter Visit Diagnoses Diagnosis Anterior Cruciate Ligament Reconstructio n Status Post documented in this encounter Additional Health Concerns Assessment Noted Time PHQ-9 Depression Total Score: 2 04/22/2015 11:24 AM CS T documented as of this encounter
--- OUTSIDE RECORDS SUMMARY | 2022-01-31 09:39 | XMS_ITS | Encounter Summary ---
:1955 Author Organization [facility] Address [address] [place] [address] Care Team Providers Name Role Phone Unavailable Primary Care Provider Unavailable Reason for Visit Physical Therapy (Routine) - Canceled Specialty Diagnoses / Procedures Referred By Contact Refer red To Contact Orthopedic Surgery Diagnoses Anterior Cruciate Ligament Reconstruction Status Post Cedric Sweeney, [facility] Region Procedures PT Ongoing treatment Sudars[place] [address] [phone] Referral ID Status Reason Start Date Expiration Date Visits V isits Requested Authorized [id number] Canceled 06/02/2017 04/06/2018 15 24 Encounter Details Date Type Department Care Team Description 09/17/2017 Clinical Support Department of Cedric Sweeney M.D. [address] [place] [address] Anterior Cruciate Rehabilitation Tushar Ware, P.TPhil [address] [place] [phone] Ligament Services in [facility] Status [place], [place] Post [address] [place] [phone] Social History Tobacco Use Types Packs/Day Years Used Date Smoking Tobacco: Former Cigarettes Quit : 04/07/1987 Smokeless Tobacco: Never Alcohol Habits Answer Date Recorded How often do you have a drink containing 4 or more times a w [place] 07/30/2021 alcohol? How many drinks containing alcohol [...] you attend amish or Patient refused 2021 mandaeism services? 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 - 09/17/2017 9:00 AM CDT Physical Therapy Outpatient Treatment Note SUBJECTIVE Patient Name: Priscilla Fitzpatrick Referring Provider: Cedric Sweeney M.D. Rehab Diagnosis: 1. Anterior Cruciate Ligament Reconstruction Status Post Payor: [employer] / Plan: [employer] BCBS / Product Type: PPO / Total Visit Count: 21 Visit Count since last G-Codes: 21 Pt comments: patient comes in today without a lot for complaints. She still does have pain in bilateral patellas. She feels injection has mostly worn off. OBJECTIVE Pain: Pain Assessment Pain Score: 1 Ortho Exam Presently, patient presents with knee extension strength 4 +/5. Patellar pain will affect her strength tear. She presents with hamstring strength being 4+/5. She has good resistance with straight leg raises. Knee flexion is to 125??. There is some pain at terminal extension. However, her extension is to 0??. TREATMENT Treatment today consisted of: Today we continue with strengthening concentrating on quad strengthening. She work on straight leg raises along with hamstring curls. She tolerated this well. From there, she worked on leg press exercises. She was able to tolerate 90 lb for 3 sets of 10-15 repetitions. She then worked on step-downs. She worked on squatting exercises along the wall. We increased the resistance with 5 lb weights in each hand. We then had patient work on side shuffling. She is able to tolerate this well. There is some pain on the inside of her knees bilaterally. This seems to be more related to her patellar issues. She then worked on proprioceptive training with the BOSU ball and a gel cushion. She is showing continued improvement here. Home Exercise Program/Education: She continues to do her home exercises. Assessment Clinical Impression: At this point, patient is doing very well overall. Functional Goals and Timeframes: No Data Recorded Plan Patient will be seeing Orthopedics I believe this Friday. If all goes well with this, we will look at discharging. Tushar Ware P.T. Time Spent with Patient Functional G-code Worksheet documented in this encounter Plan of Treatment Upcoming Encounters Date Type Specialty Care Team Description 02/02/2022 Immunization Family Medicine 02/12/2022 Office Visit Dermatology Lacy Dykes M.D. [address] [place], [place] [phone] (Wo rk) 02/22/2022 Office Visit Orthopedic Surgery Kimberlyn Alvarez APRN, C.N.P., D.N.P. [address] [place], [place] [phone] (Wo rk) 03/12/2022 Diagnostic Otorhinolaryngology Blanka Carranza, C.N.P. [address] [place] [address] Aleena Hassan Au.D. [address] [place] [address] [place], [place] [phone] documented as of this encounter Visit Diagnoses Diagnosis Anterior Cruciate Ligament Reconstructio n Status Post documented in this encounter Additional Health Concerns Assessment Noted Time PHQ-9 Depression Total Score: 2 04/22/2015 11:24 AM CS T documented as of this encounter
--- OUTSIDE RECORDS SUMMARY | 2022-01-31 09:39 | XMS_ITS | Encounter Summary ---
:1955 Author Organization [facility] Address [address] [place] [address] Care Team Providers Name Role Phone Unavailable Primary Care Provider Unavailable Reason for Visit Physical Therapy (Routine) - Canceled Specialty Diagnoses / Procedures Referred By Contact Refer red To Contact Orthopedic Surgery Diagnoses Anterior Cruciate Ligament Reconstruction Status Post Cedric Sweeney, [facility] Region Procedures PT Ongoing treatment Sudarshan [address] [phone] Referral ID Status Reason Start Date Expiration Date Visits V isits Requested Authorized [id number] Canceled 06/02/2017 04/06/2018 15 24 Encounter Details Date Type Department Care Team Description 09/04/2017 Clinical Support Department of Cedric Sweeney M.D. [address] [place] [address] Anterior Cruciate Rehabilitation Tushar Ware, P.TPhil [address] [place] [phone] Ligament Services in [facility] Status [place], [place] Post [address] [place] [phone] Social History Tobacco Use Types Packs/Day Years [...] or relatives? How often do you attend religion or Patient refused 2021 quaker services? 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 - 09/04/2017 1:00 PM CDT Physical Therapy Outpatient Treatment Note SUBJECTIVE Patient Name: Priscilla Fitzpatrick Referring Provider: Cedric Sweeney M.D. Rehab Diagnosis: 1. Anterior Cruciate Ligament Reconstruction Status Post Payor: [employer] / Plan: [employer] BCBS / Product Type: PPO / Total Visit Count: 19 Visit Count since last G-Codes: 19 Pt comments: Priscilla comes into therapy today more work complaints of pain in the patellas. She can tell at the injection is wearing off. She is also having pain in her left knee which is somewhat concerning for her. Otherwise, she is doing well in relation to pain from the ACL repair. She is not feeling up to par today. She is with some dizziness. She does not feel like she has lot of energy. OBJECTIVE Pain: Pain Assessment Pain Score: 1 Ortho Exam TREATMENT Treatment today consisted of: Patient continued with some strengthening today. She warmed up on the stationary bike. She did not feel like she could tolerate the elliptical machine. We then had patient work on hamstring curls. She worked on leg press exercises on machine. We had also work on wall squats. We had her work on steps and also side shuffling. This she tolerated well. Total time today was 25 minutes of therapeutic exercise. Assessment Clinical Impression: Patient is doing well with strength overall. We are becoming more aggressive in some of her activities. However, she did not feel very well today. Functional Goals and Timeframes: No Data Recorded Plan Will see next week. Tushar Ware P.T. Time Spent with Patient Functional G-code Worksheet documented in this encounter Plan of Treatment Upcoming Encounters Date Type Specialty Care Team Description 02/02/2022 Immunization Family Medicine 02/12/2022 Office Visit Dermatology Lacy Dykes M.D. [address] [place], [place] [phone] (Lisha mccann) 02/22/2022 Office Visit Orthopedic Surgery Kimberlyn Alvarez APRN C.N.P., D.N.P. [address] [place], [place] [phone] (Wo rk) 03/12/2022 Diagnostic Otorhinolaryngology Blanka Carranza, C.N.P. [address] [place] [address] Aleena Hassan Au.D. [address] [place] [phone] documented as of this encounter Visit Diagnoses Diagnosis Anterior Cruciate Ligament Reconstructio n Status Post documented in this encounter Additional Health Concerns Assessment Noted Time PHQ-9 Depression Total Score: 2 04/22/2015 11:24 AM CS T documented as of this encounter
--- OUTSIDE RECORDS SUMMARY | 2022-01-31 09:39 | XMS_ITS | Encounter Summary ---
:1955 Author Organization [facility] Address [address] [place] [address] Care Team Providers Name Role Phone Unavailable Primary Care Provider Unavailable Reason for Visit Physical Therapy (Routine) - Canceled Specialty Diagnoses / Procedures Referred By Contact Refer red To Contact Orthopedic Surgery Diagnoses Anterior Cruciate Ligament Reconstruction Status Post Cedric Sweeney, [facility] Region Procedures PT Ongoing treatment Sudarshan [address] [phone] Referral ID Status Reason Start Date Expiration Date Visits V isits Requested Authorized [id number] Canceled 06/02/2017 04/06/2018 15 24 Encounter Details Date Type Department Care Team Description 08/08/2017 Clinical Support Department of Cedric Sweeney M.D. [address] [place] [phone] Anterior Cruciate Rehabilitation Tushar Ware, P.TPhil [address] [place] [phone] Ligament Services in [facility] Status [place], [place] Post [address] [place] [phone] Social History Tobacco Use Types Packs/Day Years [...] you attend zoroastrian or Patient refused 2021 congregation services? 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 - 08/08/2017 8:30 AM CDT Physical Therapy Outpatient Treatment Note SUBJECTIVE Patient Name: Priscilla Fitzpatrick Referring Provider: Cedric Sweeney M.D. Rehab Diagnosis: 1. Anterior Cruciate Ligament Reconstruction Status Post Payor: [employer] / Plan: [employer] BCBS / Product Type: PPO / Total Visit Count: 13 Visit Count since last G-Codes: 13 Pt comments: Patient is without complaints at this time. OBJECTIVE Pain: Pain Assessment Pain Score: 1 Ortho Exam TREATMENT Treatment today consisted of: We continued today with strengthening. She started out with straight leg raises with manual resistance. She also included approximately 12 lb here. She worked on knee extension exercises with manual resistance. We then had her work on hamstring curls in the prone position. This was with 10 lb weights.At this, we had her work on knee extension in short sitting. This was with 15 lb on the right knee. She then worked on the leg press machine. She also worked on step- downs. She tried to isolate out herright leg in doing this. After this, patient work on squatting exercises. She then worked on lunges.She tolerated this all well. Total time today was 45 minutes of therapeutic exercise. Assessment Clinical Impression: Patient tolerated well overall. She continues to progress. Functional Goals and Timeframes: Plan We will continue. Tushar Ware P.T. Time Spent with Patient Functional G-code Worksheet documented in this encounter Plan of Treatment Upcoming Encounters Date Type Specialty Care Team Description 02/02/2022 Immunization Family Medicine 02/12/2022 Office Visit Dermatology Lacy Dykes M.D. [address] [place], [place] [phone] ([facility]) 02/22/2022 Office Visit Orthopedic Surgery Kimberlyn Alvarez, JOSE DANIEL, C.N.P., D.N.P. [address] [place], [place] [phone] ([facility]) 03/12/2022 Diagnostic Otorhinolaryngology Blanka Carranza, C.N.P. [address] [place] [address] Aleena Hassan Au.D. [address] [place] [phone] documented as of this encounter Visit Diagnoses Diagnosis Anterior Cruciate Ligament Reconstructio n Status Post documented in this encounter Additional Health Concerns Assessment Noted Time PHQ-9 Depression Total Score: 2 04/22/2015 11:24 AM CS T documented as of this encounter
--- OUTSIDE RECORDS SUMMARY | 2022-01-31 09:40 | XMS_ITS | Encounter Summary ---
:1955 Author Organization [facility] Address [address] [place] [address] Care Team Providers Name Role Phone Unavailable Primary Care Provider Unavailable Encounter Details Date Type Department Care Team Description 05/28/2017 Telemedicine Department of General Surgery Social History Tobacco Use Types Packs/Day Years Used Date Smoking Tobacco: Former Smokeless Tobacco: Never Alcohol Habits Answer Date Recorded How often do you have a drink containing 4 or more times a w [place] 07/30/2021 alcohol? How many drinks containing alcohol [...] you attend sabianism or Patient refused 2021 catholic services? 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 [address] [place], [place] [phone] (Wo rk) 02/22/2022 Office Visit Orthopedic Surgery Kimberlyn Alvarez APRN, C.N.P., D.N.P. [address] [place], [place] [phone] (Wo rk) 03/12/2022 Diagnostic Otorhinolaryngology Blanka Carranza, C.N.P. [address] [place], [place] [id number] Aleena Hassan Au.D. [address] [place] [phone] documented as of this encounter Procedures Procedure Name Priority Date/Time Associated Diagnosis Comme nts SURGERY IMAGE EXAM Routine 05/28/2017 10:35 AM Re sults for this ACQUISITION PROFESSIONAL procedure are i n the results section. documented in this encounter Results SURGERY IMAGE EXAM (05/28/2017 10:35 AM ACQUISITION PROFESSIONAL) Specimen (Source) Anatomical Collection Method Collection Time Re ceived Time Location / / Volume Laterality 05/28/2017 10:32 AM ACQUISITION PROFESSIONAL Narrative [facility] - 05/28/2017 12:56 PM ACQUISITION PROFESSIONAL This order has been created and auto-finalized [...]
--- OUTSIDE RECORDS SUMMARY | 2022-01-31 09:40 | XMS_ITS | Encounter Summary ---
:1955 Author Organization [facility] Address [address] [place] [address] Care Team Providers Name Role Phone Unavailable Primary Care Provider Unavailable Reason for Visit Physical Therapy (Routine) - Canceled Specialty Diagnoses / Procedures Referred By Contact Refer red To Contact Orthopedic Surgery Diagnoses Anterior Cruciate Ligament Reconstruction Status Post Cedric Sweeney, [facility] Region Procedures PT Ongoing treatment Sudarshan [address] [place] [address] Referral ID Status Reason Start Date Expiration Date Visits V isits Requested Authorized [id number] Canceled 06/02/2017 04/06/2018 15 24 Encounter Details Date Type Department Care Team Description 06/17/2017 Clinical Support Department of Cedric Sweeney M.D. [address] [place] [address] Anterior Cruciate Rehabilitation Tushar Ware, P.TPhil [address] [place] [phone] Ligament Services in [facility] Status [place], [place] Post [address] [place] [phone] Social History Tobacco Use Types Packs/Day Years [...] you attend episcopalian or Patient refused 2021 temple services? 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 - 06/17/2017 9:30 AM CDT Physical Therapy Outpatient Treatment Note Referring Provider: Cedric Sweeney M.D. Medical Diagnosis: 1. Anterior Cruciate Ligament Reconstruction Status Post - PT Ongoing treatment Payor: Payor: [employer] / Plan: [employer] BCBS / Product Type: PPO / Total Visit Count: 3 Visit Count since last G-Codes: 3 Principal Problem: Patient Active Problem List Diagnosis ??? Depression/Beckie/Bipolar NOS ??? Dysthymia ??? Pain Knee Right ??? Hypertension NOS ??? Hypothyroidism ??? Hyperlipidemia ??? Anterior Cruciate Ligament Reconstruction Status Post ??? Tachycardia Supraventricular (HCC) SUBJECTIVE Priscilla comes into therapy today without complaints. She just got home from a few visits trip and she tolerated this fairly well. The flight was somewhat uncomfortable. Pain Assessment Pain Score: 3 OBJECTIVE We continued today with strengthening and mobility. We worked on passive range of motion of the knee. We are able to obtain knee flexion to approximately 100??. There is a minimal extension lag of no more than 1-2 degrees. We had her work on heel slides as well as straight leg raises. We included 3 lbweights for straight leg raises. She worked on knee extension exercises with light manual resistance. She also worked on hamstring strengthening with patient in the prone position. She worked on the leg press machine this being at 40 lb for 3 sets of 10 repetitions. Lastly, she is on the stationary bike for approximately 10 minutes. She is able to make full revolutions. Measures - Tools Measures - Tools Treatment Provided Today: 30 minutes of therapeutic exercise. Home Exercise Program: ASSESSMENT Patient is doing well overall. She is only using the brace when she was in large crowds. Otherwise, she can go without the brace at this time. Therapy Goals PLAN We will continue to progress with strengthening as able. Tushar Ware P.T. Time Spent with Patient Functional G-code Worksheet documented in this encounter Plan of Treatment Upcoming Encounters Date Type Specialty Care Team Description 02/02/2022 Immunization Family Medicine 02/12/2022 Office Visit Dermatology Lacy Dykes M.D. [address] [place], [place] [phone] (Lisha mccann) 02/22/2022 Office Visit Orthopedic Surgery Kimberlyn Alvarez APRN, C.N.P., D.N.P. [address] [place], [place] [phone] (Lisha mccann) 03/12/2022 Diagnostic Otorhinolaryngology Blanka Carranza, C.N.P. [address] [place] [address] Aleena Hassan Au.D. [address] [facility] [place] [phone] documented as of this encounter Visit Diagnoses Diagnosis Anterior Cruciate Ligament Reconstructio n Status Post documented in this encounter Additional Health Concerns Assessment Noted Time PHQ-9 Depression Total Score: 2 04/22/2015 11:24 AM CS T documented as of this encounter
--- OUTSIDE RECORDS SUMMARY | 2022-01-31 09:40 | XMS_ITS | Encounter Summary ---
:1955 Author Organization 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 Postoperative Visit [place] [phone] (Primary Dx) [address] (Work) [place] [address] Social History Tobacco Use Types Packs/Day [...] you attend amish or Patient refused 2021 episcopalian services? Do you belong to any clubs or Yes 07/30/2021 organizations such as amish groups, unions, [email or web address] or athletic groups, or school groups? 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 [address] [place], [place] [phone] (Wo rk) 02/22/2022 Office Visit Orthopedic Surgery Kimberlyn Alvarez, JOSE DANIEL, C.N.P., D.N.P. [address] [place], [place] [phone] (Wo rk) 03/12/2022 Diagnostic Otorhinolaryngology Blanka Carranza, C.N.P. [address] [place], [place] [phone] Aleena Hassan Au.D. [address] [place] [phone] documented as of this encounter Visit Diagnoses Diagnosis Follow Up Examination Postoperative Visi t - Primary documented in this encounter Additional Health Concerns Assessment Noted Time PHQ-9 Depression Total Score: 2 04/22/2015 11:24 AM CS T documented as of this encounter
--- OUTSIDE RECORDS SUMMARY | 2022-01-31 09:40 | XMS_ITS | Encounter Summary ---
:1955 Author Organization [facility] Address [address] [place] [address] Care Team Providers Name Role Phone Unavailable Primary Care Provider Unavailable Encounter Details Date Type Department Care Team Description 05/28/2017 Telemedicine Department of General Surgery Social History Tobacco Use Types Packs/Day Years Used Date Smoking Tobacco: Former Smokeless Tobacco: Never Alcohol Habits Answer Date Recorded How often do you have a drink containing 4 or more times a w [place] 07/30/2021 alcohol? How many drinks containing [...] you attend mormon or Patient refused 2021 voodoo services? 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 [address] [place], [place] [phone] (Wo rk) 02/22/2022 Office Visit Orthopedic Surgery Kimberlyn Alvarez APRN, C.N.P., D.N.P. [address] [place], [place] [phone] (Wo rk) 03/12/2022 Diagnostic Otorhinolaryngology Blanka Carranza, C.N.P. [address] [place], [place] [phone] Aleena Hassan Au.D. [address] [place] [address] documented as of this encounter Procedures Procedure Name Priority Date/Time Associated Diagnosis Comme nts SURGERY IMAGE EXAM Routine 05/28/2017 10:56 AM Re sults for this PUBLIC SERVICES LIBRARIAN procedure are i n the results section. documented in this encounter Results SURGERY IMAGE EXAM (05/28/2017 10:56 AM PUBLIC SERVICES LIBRARIAN) Specimen (Source) Anatomical Collection Method Collection Time Re ceived Time Location / / Volume Laterality 05/28/2017 11:27 AM PUBLIC SERVICES LIBRARIAN Narrative [facility] - 05/28/2017 10:56 AM PUBLIC SERVICES LIBRARIAN This order has been created and auto-finalized [...]
--- OUTSIDE RECORDS SUMMARY | 2022-01-31 09:40 | XMS_ITS | Encounter Summary ---
:1955 Author Organization [facility] Address [address] [place] [address] Care Team Providers Name Role Phone Unavailable Primary Care Provider Unavailable Reason for Visit MRI/CAT/PET Scan (Routine) - Closed Specialty Diagnoses / Procedures Referred By Contact Refer red To Contact Radiology Diagnoses Pain Knee Right Emilie Anne M.D. [facility] Procedures MR Knee Right without IV Contrast TX MRI LWR EXT JOINT WO CNTRST HC MRI LWR EXT JOINT WO CNTRST TX MRI LWR EXT JOINT WO CNTRST [address] [place] [phone] Referral ID Status Reason Start Date Expiration Date Visits Requ ested Visits Authorized [id number] Closed 07/15/2017 01/11/2018 1 1 Encounter Details Date Type Department Care Team Description 05/14/2017 Hospital Encounter Department of Emilie Anne, Pain Knee Right Radiology in [place]ira [place] M.D. [place] [address] [place] [place] [phone] [phone] Social History Tobacco Use Types Packs/Day Years Used Date Smoking Tobacco: Former Alcohol Habits Answer Date Recorded How often do you have a drink containing 4 or more times a w [place] 07/30/2021 alcohol? How many drinks containing alcohol [...] you attend amish or Patient refused 2021 scientology services? 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 FORMULA ORAL) liothyronine Take 1 tablet by 0 06/05/2015 (for_CYTOMEL) 5 mcg mouth daily. tablet MULTIVITAMIN ORAL Take by mouth daily. 0 05/02/19 15 ondansetron ODT Take 1 tablet by 0 04/18/2015 (ZOFRAN-ODT) 4 mg mouth every 8 (eight) disintegrating tablet hours as needed for nausea. valsartan (DIOVAN) 40 mg Take 2 tablets by 0 04/07 tablet mouth daily. zolpidem (AMBIEN) 10 mg Take 0.5 tablets by 0 tablet mouth at bedtime. EPINEPHrine 0.3 mg/0.3 See instructions 0 01/12/2 016 mL injection syringe CINNAMON BARK (CINNAMON Take 1,000 mg by 0 201503/06/2021 ORAL) mouth daily. citalopram (CeleXA) 20 Take 0.5 tablets by 0 04/0703/06/2021 mg tablet mouth daily. levothyroxine Take 1 tablet by 0 08/24/201509/19 (SYNTHROID) 150 mcg mouth daily. tablet UNABLE TO FIND Tumeric raw herb 0 08/18/201502/07 daily documented as of this encounter Plan of Treatment Upcoming Encounters Date Type Specialty Care Team Description 02/02/2022 Immunization Family Medicine 02/12/2022 Office Visit Dermatology Lacy Dykes M.D. [address] [place], [place] [phone] ( rk) 02/22/2022 Office Visit Orthopedic Surgery Kimberlyn Alvarez APRN, C.N.P., D.N.P. [address] [place], [place] [phone] (Wo rk) 03/12/2022 Diagnostic Otorhinolaryngology Blanka Carranza, C.N.P. [address] [place], [place] [phone] Aleena Hassan Au.D. [address] [place] [phone] documented as of this encounter Procedures Procedure Name Priority Date/Time Associated Comments Diagnosis MR KNEE RIGHT RAD - Routine 05/14/2017 4:26 Pain Knee Right Results for this WITHOUT IV (most inpatients PM TIE TAPE MACHINE OPERATOR procedure a re in CONTRAST and all the results outpatients) section. documented in this encounter Results MR Knee Right without IV Contrast (05/14/2017 4:26 PM TIE TAPE MACHINE OPERATOR) Anatomical Region Laterality Modality Lower Extremity, Knee Right Magnetic Resonance Specimen (Source) Anatomical Collection Method Collection Time Re ceived Time Location / / Volume Laterality 05/14/2017 4:31 PM TIE TAPE MACHINE OPERATOR Impressions 05/14/2017 4:44 PM TIE TAPE MACHINE OPERATOR IMPRESSION: 1. ??Full-thickness, essentially complet e tear of the anterior cruciate ligament. 2. ??Complex tear of the medial meniscal body and posterior horn with extrusion. 3. ??Nondisplaced subcortical fracture o f the posterior aspect of the lateral tibial plateau. Tibial plateau contusion s posteriorly. 4. ??Tricompartmental chondromalacia, in cluding grade 4 patellofemoral chondromalacia. Narrative 05/14/2017 4:44 PM TIE TAPE MACHINE OPERATOR EXAM: MR KNEE RIGHT WITHOUT IV CONTRAST COMPARISON: 04/01/2017 radiographs FINDINGS: Complex tear of the medial meniscal body and posterior horn. For example prominent radial tear of the posterior h orn, series 10 image 11. Complex tearing the medial meniscal body with extrusion, series 10 image 15. Grade IV chondromalacia central weightbearing med ial femoral condyle, series 10 image 15, series 9 image 22). Bone contusion of th e medial tibial plateau posteriorly, series 9 image 23, series 3 image 27). Degenerative intrasubstance signal the l ateral meniscus, without discrete tearing. Full-thickness fissuring of the anterior weightbearing lateral femoral condyle, series 9 image 12. Full-thickne ss fissuring along the lateral aspect of lateral femoral condyle with subchondral edema. Bone contusion and nondisplaced fracture of the posterior aspect of late ral femoral condyle, series 3 image 25, series 6 image 11. Full-thickness fissuring of the lateral patellar facet with subchondral edema, series 3 image 12. Small focal area of f ull-thickness fissuring with subchondral edema of the medial patellar facet, seri es 3 image 14. The medial lateral patellofemoral ligaments are intact. Full-thickness, essentially complete tea r of the anterior cruciate ligament. Posterior cruciate ligament is intact. E xtensor mechanism is intact. Medial collateral ligament is intact. Inflammat ory signal deep to the medial collateral ligament, favor reactive change. Lateral supporting structures are intact. Fluid about the popliteus myotendinous junctio n. Moderate size knee joint effusion. Procedure Note Joshua Hernandez M.D. - 05/14/2017Formatt ing of this note might be different from the original. EXAM: MR KNEE RIGHT WITHOUT IV CONTRAST COMPARISON: 04/01/2017 radiographs FINDINGS: Complex tear of the medial meniscal body and posterior horn. For example prominent radial tear of the posterior h orn, series 10 image 11. Complex tearing the medial meniscal body with extrusion, series 10 image 15. Grade IV chondromalacia central weightbearing med ial femoral condyle, series 10 image 15, series 9 image 22). Bone contusion of th e medial tibial plateau posteriorly, series 9 image 23, series 3 image 27). Degenerative intrasubstance signal the l ateral meniscus, without discrete tearing. Full-thickness fissuring of the anterior weightbearing lateral femoral condyle, series 9 image 12. Full-thickne ss fissuring along the lateral aspect of lateral femoral condyle with subchondral edema. Bone contusion and nondisplaced fracture of the posterior aspect of late ral femoral condyle, series 3 image 25, series 6 image 11. Full-thickness fissuring of the lateral patellar facet with subchondral edema, series 3 image 12. Small focal area of f ull-thickness fissuring with subchondral edema of the medial patellar facet, seri es 3 image 14. The medial lateral patellofemoral ligaments are intact. Full-thickness, essentially complete tea r of the anterior cruciate ligament. Posterior cruciate ligament is intact. E xtensor mechanism is intact. Medial collateral ligament is intact. Inflammat ory signal deep to the medial collateral ligament, favor reactive change. Lateral supporting structures are intact. Fluid about the popliteus myotendinous junctio n. Moderate size knee joint effusion. IMPRESSION: 1. Full-thickness, essentially complete tear of the anterior cruciate ligament. 2. Complex tear of the medial meniscal b sintia and posterior horn with extrusion. 3. Nondisplaced subcortical fracture of the posterior aspect of the lateral tibial plateau. Tibial plateau contusion s posteriorly. 4. Tricompartmental chondromalacia, incl uding grade 4 patellofemoral chondromalacia. Emilie FARIAS MRI PROCEDURES documented in this encounter Visit Diagnoses Diagnosis Pain Knee Right documented in this encounter Additional Health Concerns Assessment Noted Time PHQ-9 Depression Total Score: 2 04/22/2015 11:24 AM CS T documented as of this encounter
--- OUTSIDE RECORDS SUMMARY | 2022-01-31 09:40 | XMS_ITS | Encounter Summary ---
:1955 Author Organization [facility] Address [address] [place] [address] Care Team Providers Name Role Phone Unavailable Primary Care Provider Unavailable Reason for Visit Reason Comments Communication Encounter Details Date Type Department Care Team Description 04/15/2017 Clinical Communication Department of Emilie Anne, Communication Orthopedic Surgery in [address] [phone] Social History Tobacco Use Types Packs/Day Years Used Date Smoking Tobacco: Former Alcohol Habits Answer Date Recorded How often do you have a drink containing 4 or more times a w [place] 07/30/2021 alcohol? How many drinks containing alcohol [...] you attend judaism or Patient refused 2021 spiritism services? 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 Thank you ENT TRANSPORT OFFICER documented in this encounter Plan of Treatment Upcoming Encounters Date Type Specialty Care Team Description 02/02/2022 Immunization Family Medicine 02/12/2022 Office Visit Dermatology Lacy Dykes M.D. [address] [place], [place] [phone] (Wo rk) 02/22/2022 Office Visit Orthopedic Surgery Kimberlyn Alvarez APRN, C.N.P., D.N.P. [address] [place], [place] [phone] (Wo rk) 03/12/2022 Diagnostic Otorhinolaryngology Blanka Carranza, C.N.P. [address] [place] [address] Aleena Hassan Au.D. [address] [place] [address] documented as of this encounter Visit Diagnoses Not on filedocumented in this encounter Additional Health Concerns Assessment Noted Time PHQ-9 Depression Total Score: 2 04/22/2015 11:24 AM CS T documented as of this encounter
--- OUTSIDE RECORDS SUMMARY | 2022-01-31 09:40 | XMS_ITS | Encounter Summary ---
:1955 Author Organization [facility] Address [address] [place] [address] Care Team Providers Name Role Phone Unavailable Primary Care Provider Unavailable Reason for Visit Reason Comments Communication Encounter Details Date Type Department Care Team Description 04/14/2017 Clinical Communication Department of Kannan Dodd C ommunication Orthopedic Surgery in [place] [phone] Social History Tobacco Use Types Packs/Day Years Used Date Smoking Tobacco: Former Alcohol Habits Answer Date Recorded How often do you have a drink containing 4 or more times a w [place] 07/30/2021 alcohol? How many drinks containing alcohol [...] you attend caodaism or Patient refused 2021 adventist services? 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 - 04/14/2017 9:47 AM MEAT HANGER Order placed. HANGER Telephone Encounter - Alba Ventura C.S.T. - 04/14/2017 9:29 AM MEAT HANGER Patient called and stated that she was seen by Dr. Anne 04/08/17 for a torn meniscus. She stated that she was given an injection and it has not helped. She is in [place], [place] and was interested ingetting an MRI done so she could have surgery when she returns to [place] in [facility]. She would like to keep her care with Dr. Sweeney team. The best way to reach is [phone], it is ok to leave adetailed message. Fax number for [place] is [phone]. Please advise. HANGER documented in this encounter Plan of Treatment Upcoming Encounters Date Type Specialty Care Team Description 02/02/2022 Immunization Family Medicine 02/12/2022 Office Visit Dermatology Lacy Dykes M.D. [address] [place] [phone] (Wo rk) 02/22/2022 Office Visit Orthopedic Surgery Kimberlyn Alvarez, JOSE DANIEL, C.N.P., D.N.P. [address] [place], [place] [phone] (Wo rk) 03/12/2022 Diagnostic Otorhinolaryngology Blanka Carranza C.NPhilPPhil [address] [place], [place] [phone] Aleena Hassan Au.D. [address] [place] [phone] documented as of this encounter Visit Diagnoses Not on filedocumented in this encounter Additional Health Concerns Assessment Noted Time PHQ-9 Depression Total Score: 2 04/22/2015 11:24 AM SAUL T documented as of this encounter
--- OUTSIDE RECORDS SUMMARY | 2022-01-31 09:40 | XMS_ITS | Encounter Summary ---
:1955 Author Organization [facility] Address [address] [place] [address] Care Team Providers Name Role Phone Unavailable Primary Care Provider Unavailable Reason for Visit Physical Therapy (Routine) - Canceled Specialty Diagnoses / Procedures Referred By Contact Refer red To Contact Orthopedic Surgery Diagnoses Anterior Cruciate Ligament Reconstruction Status Post Cedric Sweeney, [facility] Region Procedures PT Ongoing treatment Sudarshan [address] [place] [address] Referral ID Status Reason Start Date Expiration Date Visits V isits Requested Authorized [id number] Canceled 06/02/2017 04/06/2018 15 24 Encounter Details Date Type Department Care Team Description 06/06/2017 Clinical Support Department of Cedric Sweeney M.D. [address] [place] [phone] Anterior Cruciate Rehabilitation Tushar Ware, P.TPhil [address] [place] [phone] Ligament Services in [facility] Status [place], [place] Post [address] [place] [phone] Social History Tobacco Use Types Packs/Day Years Used Date Smoking Tobacco: Former Smokeless Tobacco: Never Alcohol Habits Answer Date Recorded How often do you have a drink containing 4 or more times a w [place] 07/30/2021 alcohol? How many drinks containing alcohol [...] you attend rastafarian or Patient refused 2021 denominational services? 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 - 06/06/2017 8:30 AM CST Physical Therapy Outpatient Treatment Note Referring Provider: Cedric Sweeney M.D. Medical Diagnosis: 1. Anterior Cruciate Ligament Reconstruction Status Post - PT Ongoing treatment Payor: Payor: [facility] / Plan: [employer] BCBS / Product Type: PPO / Total Visit Count: Visit count could not be calculated. Make sure you are using a visit which is associated with an episode. Visit Count since last G-Codes: Visit count could not be calculated. Make sure you are using a visitwhich is associated with an episode. Principal Problem: Patient Active Problem List Diagnosis ??? Mood Disorder NOS ??? Dysthymia ??? Pain Knee Right ??? Hypertension NOS ??? Hypothyroidism ??? Hyperlipidemia ??? Anterior Cruciate Ligament Reconstruction Status Post ??? Tachycardia Supraventricular (HCC) SUBJECTIVE Priscilla comes into therapy today stating that her knee is a little sore. She has been basically sleeping without the brace now. She does use a brace throughout the day as needed. This is from 0-30 degrees in the brace. Pain Assessment Pain Score: 3 OBJECTIVE We continue with therapy today consisting of passive range of motion. We worked on flexion which is to approximately 95??. There is a slight extension lag of no more than 3??. We had her work on some straight leg raises with quad isometrics. She work on some short arc quads against gravity. We also had her work on some heel slides with light manual resistance. She tolerated this all well. We advised that she go relatively easy on this over the weekend. She should use a brace symptomatic we. If her pain increases she needs to decrease her activities. Measures - Tools Measures - Tools Treatment Provided Today: 25 minutes of manual therapy. Home Exercise Program: ASSESSMENT Patient is doing well overall. Therapy Goals PLAN We will continue to progress with both mobility and strength as able. Tushar Ware P.T. Time Spent with Patient Functional G-code Worksheet CALENDER documented in this encounter Plan of Treatment Upcoming Encounters Date Type Specialty Care Team Description 02/02/2022 Immunization Family Medicine 02/12/2022 Office Visit Dermatology Lacy Dykes M.D. [address] [place], [place] [phone] (Lisha mccann) 02/22/2022 Office Visit Orthopedic Surgery Kimberlyn Alvarez APRN, C.N.P., D.N.P. [address] [place], [place] [phone] (Lisha mccann) 03/12/2022 Diagnostic Otorhinolaryngology Blanka Carranza, C.N.P. [address] [place] [address] Aleena Hassan Au.D. [address] [place] [phone] documented as of this encounter Visit Diagnoses Diagnosis Anterior Cruciate Ligament Reconstructio n Status Post documented in this encounter Additional Health Concerns Assessment Noted Time PHQ-9 Depression Total Score: 2 04/22/2015 11:24 AM CS T documented as of this encounter
--- OUTSIDE RECORDS SUMMARY | 2022-01-31 09:40 | XMS_ITS | Encounter Summary ---
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 [facility] [address] [place] [phone] Referral ID Status Reason Start Date Expiration Date Visits Requ ested Visits Authorized [id number] Closed 05/22/2017 11/18/2017 1 1 IGHT KNIFE MACHINE CUTTER Reason for Visit Reason Comments Results Right knee MRI results Appointment Request (Routine) - Closed Specialty Diagnoses / Procedures Referred By Contact Refer elvira To Contact Orthopedic Surgery Referral ID Status Reason Start Date Expiration Date Visits Requ ested Visits Authorized [id number] Closed 04/25/2017 10/22/2017 1 1 Encounter Details Date Type Department Care Team Description 05/22/2017 Office Visit Department of Cedric Sweeney Pain Kne e Right Orthopedic Surgery in M.DPhil (Primary Dx) [place], [place] 701 [facility] [address] [place], [place] [phone] Social History Tobacco Use Types Packs/Day Years Used Date Smoking Tobacco: Former Alcohol Habits Answer Date Recorded How often do you have a drink containing 4 or more times a w [place] 07/30/2021 alcohol? How many drinks containing alcohol [...] or relatives? How often do you attend congregation or Patient refused 2021 muslim services? 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 - 05/22/2017 10:15 AM CST HISTORY OF PRESENT ILLNESS Priscilla is a 61-year-old woman who is here in regard to her right knee. She sustained injury to her right knee while involved in an exercise class, felt a popping sensation in her knee, difficulty withambulation. She was in [place] at the time. She was able to get some stabilization treatment there and then came home and had started her evaluation. She had an MRI obtained of her knee and she is here today to discuss results of this. She says that she is having problems with continued instability feeling to this knee, where it feels like it wants to give way. She notes that she is a very active person. She likes to do skiing as well as exercise on a regular basis and wonders what her next steps are. PHYSICAL EXAMINATION Examination of her right knee, she is noted to have a moderate effusion present today. Her knee range of motion is from 3-5 degrees short of full extension to approximately 95 degrees of flexion. She is stable to varus and valgus stress. Her Danay's is 2+ positive. Posterior drawer is negative. She does have quite severe tenderness along the medial joint line. RADIOGRAPHS: MRI that was recently obtained demonstrates an acute full-thickness ACL tear. The chondral injury and bony contusion to the posterolateral aspect of the tibia as well as a medial meniscus tear. In addition to this, she does have some areas of grade 4 changes, particularly in the patellofemoral joint. ASSESSMENT / PLAN Priscilla is a 61-year-old woman who is seen with a right knee injury, has an ACL tear and meniscal tearing. I discussed with her the treatment options. We discussed the fact that she does have some degenerative changes in this knee as well, and how this might affect her down the line. At this point in time, considering her high activity level and her reasonably good function prior to this injury, we will make plans to proceed with right knee ACL reconstruction and we will use a patellar tendon allograft and we will do a partial medial meniscectomy. She understands there is a possibility that with the degenerative changes she may have her knee may just gradually worsen and she may end up with total knee arthroplasty, but given her function prior to this injury, it would be reasonable to do the ACL reconstruction and meniscectomy, especially with her quite joaquin instability at this point. We will set this up in the near future with the preoperative workup done by her primary care physician. The patient's visit today was 24 minutes long, with 18 minutes of counseling regarding treatment options for her right knee injury. IGHT KNIFE MACHINE CUTTER documented in this encounter Plan of Treatment Upcoming Encounters Date Type Specialty Care Team Description 02/02/2022 Immunization Family Medicine 02/12/2022 Office Visit Dermatology Lacy Dykes M.D. [address] [place] [phone] (Wo rk) 02/22/2022 Office Visit Orthopedic Surgery Kimberlyn Alvarez APRN, C.N.P., D.N.P. [address] [place], [place] [phone] (Wo rk) 03/12/2022 Diagnostic Otorhinolaryngology Blanka Carranza, C.N.P. [address] [place] [address] Aleena Hassan Au.D. [address] [place] [phone] Scheduled Referrals Name Type Priority Associated Order Schedule Diagnoses Pre Operative Outpatient Referral Routine Pain Knee Right Expe cted: Evaluation [facility] nurse [id number] consult (clinic) (Approximat e), Expires: 05/22/2020 Orthopedic Surgery Outpatient Referral Routine Pain Knee Right Expected: Post Op (clinic) 05/22/2017 (Approximate), Expires: 05/22/2020 documented as of this encounter Visit Diagnoses Diagnosis Pain Knee Right - Primary documented in this encounter Additional Health Concerns Assessment Noted Time PHQ-9 Depression Total Score: 2 04/22/2015 11:24 AM CS T documented as of this encounter
--- OUTSIDE RECORDS SUMMARY | 2022-01-31 09:40 | XMS_ITS | Encounter Summary ---
:1955 Author Organization [facility] Address [address] [place] [address] Care Team Providers Name Role Phone Unavailable Primary Care Provider Unavailable Reason for Visit Physical Therapy (Routine) - Canceled Specialty Diagnoses / Procedures Referred By Contact Refer red To Contact Orthopedic Surgery Diagnoses Anterior Cruciate Ligament Reconstruction Status Post Cedric Sweeney, [facility] Region Procedures PT Ongoing treatment Sudarshan [address] [place] [address] Referral ID Status Reason Start Date Expiration Date Visits V isits Requested Authorized [id number] Canceled 06/02/2017 04/06/2018 15 24 Encounter Details Date Type Department Care Team Description 06/10/2017 Clinical Support Department of Cedric Sweeney M.D. [address] [place] [phone] Anterior Cruciate Rehabilitation Tushar Ware, P.TPhil [address] [place] [phone] Ligament Services in [facility] Status [place], [place] Post [address] [place] [phone] Social History Tobacco Use Types Packs/Day Years Used Date Smoking Tobacco: Former Smokeless Tobacco: Never Alcohol Habits Answer Date Recorded How often do you have a drink containing 4 or more times a w [place] 07/30/2021 alcohol? How many drinks containing alcohol [...] you attend zoroastrian or Patient refused 2021 muslim services? Do [...] Date Recorded Female 05/19/2017 11:19 AM SAP BASIS documented as of this encounter Progress Notes Tushar Ware, P.T. - 06/10/2017 8:30 AM CST Physical Therapy Outpatient Treatment Note Referring Provider: Cedric Sweeney M.D. Medical Diagnosis: 1. Anterior Cruciate Ligament Reconstruction Status Post - PT Ongoing treatment Payor: Payor: [facility] / Plan: [email or web address]BS / Product Type: PPO / Total [...] ??? Tachycardia Supraventricular (HCC) SUBJECTIVE Priscilla comes in today without complaints. She continues to wear her brace set at 30?? while she is ambulating outside. Pain is manageable. She did amb[facility] over the weekend. Shefelt this went fairly well. OBJECTIVE Today we continue with passive range of motion for knee flexion and extension. We had her on the stationary bike for the 1st time. She is able to make full revolutions. We then had patient come back tothe treatment table in we work more on passive range of motion as well as some isometric contractions along with short arc quads. We then instructed patient with exercises she can do at home with Thera-Band. This consisted of straight leg raises as well as knee flexion with this being with only the green an orange Thera-Band. Mobility was to 100?? of flexion with an extension lag of no more than 3??. Measures - Tools Measures - Tools Treatment Provided Today: 15 minutes of manual therapy and 15 minutes of therapeutic exercise. Home Exercise Program: ASSESSMENT Patient is doing well overall. She was encouraged to do these home exercises. She is to engage this lately. She is not to try an over power the resistance. Therapy Goals PLAN Patient will be on a business trip for the next week. Will follow up with therapy the following week. Tushar Ware P.T. Time Spent with Patient Functional G-code Worksheet BASIS documented in this encounter Plan of Treatment Upcoming Encounters Date Type Specialty Care Team Description 02/02/2022 Immunization Family Medicine 02/12/2022 Office Visit Dermatology Lacy Dykes M.D. [address] [place], [place] [phone] (Wo rk) 02/22/2022 Office Visit Orthopedic Surgery Kimberlyn Alvarez, JOSE DANIEL, C.N.P., D.N.P. [address] [place] [phone] (Wo rk) 03/12/2022 Diagnostic Otorhinolaryngology Blanka Carranza C.NPhilPPhil [address] [place] [id number] Aleena Hassan Au.D. [address] [facility] [phone] documented as of this encounter Visit Diagnoses Diagnosis Anterior Cruciate Ligament Reconstructio n Status Post documented in this encounter Additional Health Concerns Assessment Noted Time PHQ-9 Depression Total Score: 2 04/22/2015 11:24 AM CS T documented as of this encounter
--- OUTSIDE RECORDS SUMMARY | 2022-01-31 09:40 | XMS_ITS | Encounter Summary ---
:1955 Author Organization [facility] Address [address] [place] [address] Care Team Providers Name Role Phone Unavailable Primary Care Provider Unavailable Reason for Referral Outpatient (Routine) - Closed Specialty Diagnoses / Procedures Referred By Contact Refer red To Contact Orthopedic Surgery Diagnoses Pain Knee Right Kimberlyn Alvarez APRN, [facility] C.N[facility] D.N.P. [address] [place] [address] Referral ID Status Reason Start Date Expiration Date Visits Requ ested Visits Authorized [id number] Closed 05/28/2017 11/24/2017 1 1 Scheduling Instructions Ordered images/tests are associated with this appointment. R DEPARTMENT SUPERVISOR Reason for Visit Auth/Cert Specialty Diagnoses / Procedures Referred By Contact Refer red To Contact Diagnoses Pain Knee Right Procedures VT ARTHSC AID ACL RPR VT ARTHSC KNE W MNSCECTOMY MED/LAT ARTHROSCOPY RECONSTRUCTION ANTERIOR CRUCIATE LIGAMENT KNEE - ALLOGRAFT, partial medial menisectomy Referral ID Status Reason Start Date Expiration Date Visits Requ ested Visits Authorized [id number] 1 1 Encounter Details Date Type Department Care Team Description 05/28/2017 Hospital Encounter [facility] MAIN OR Cedric Sweeney Pain Knee Right [address] M.D. (Primary Dx) [place] [address] [id number] BERRY Marcos [phone] [phone] Social History Tobacco Use Types Packs/Day Years Used Date Smoking Tobacco: Former Smokeless Tobacco: Never Alcohol Habits Answer Date Recorded How often do you have a drink containing 4 or more times a w [place] 07/30/2021 alcohol? How many drinks containing alcohol [...] you attend alevism or Patient refused 2021 jewish services? Do [...] or slept in a prison (including now)? Sex Assigned at Date Recorded Female 05/19/2017 11:19 AM ORDER DEPARTMENT SUPERVISOR documented as of this encounter Last Filed Vital Signs Vital Sign Reading Time Taken Comments Blood Pressure 130/74 05/28/2017 3:15 PM ORDER DEPARTMENT SUPERVISOR Pulse 62 05/28/2017 3:15 PM ORDER DEPARTMENT SUPERVISOR Temperature 36.7 ??C (98.1 ??F) 05/28/2017 9:10 AM ORDER DEPARTMENT SUPERVISOR Respiratory Rate 16 05/28/2017 1:03 PM ORDER DEPARTMENT SUPERVISOR Oxygen Saturation 93% 05/28/2017 3:15 PM ORDER DEPARTMENT SUPERVISOR Inhaled Oxygen Concentration - - Weight - - Height - - Body Mass Index - - documented in this encounter Discharge Instructions Discharge Instr - ActivityMyrna Russell R.N. - 05/28/2017 4:34 PM ORDER DEPARTMENT SUPERVISOR Brace on and locked whenever bearing weight. Toe touch or full weight bearing, whichever is comfortable. Crutches for support. Can wean to using one crutch on the left side. Call to set up physical therapy R DEPARTMENT SUPERVISOR AttachmentsThe following attachments cannot be sent through Care Everywhere. Anterior Cruciate Ligament (ACL) Surgery ([place])documented in this encounter Medications at Time of Discharge Medication Sig Dispensed Refills Start Date End Date B.ANI/L.ACI/L.BERNICE/L.PLAN Take 1 capsule by 0 06/2012 /.TASH (PROBIOTIC mouth daily. FORMULA ORAL) liothyronine Take [...] bedtime. EPINEPHrine 0.3 mg/0.3 See instructions 0 016 mL injection syringe CINNAMON BARK (CINNAMON Take 1,000 mg by 0 201503/06/2021 ORAL) mouth daily. citalopram (CeleXA) 20 Take 0.5 tablets by 0 04/0703/06/2021 mg tablet mouth daily. levothyroxine Take 1 tablet by 0 08/24/201509/19 (SYNTHROID) 150 mcg mouth daily. tablet UNABLE TO FIND Tumeric raw herb 0 08/18/201502/07 daily oxyCODONE 1-2 tabs every 4-6 30 tablet 0 05/28/20172017 (for_ROXICODONE) 5 mg hrs prn pain immediate release tablet documented as of this encounter Progress Notes Laura Ayala M.D. - 05/28/2017 5:50 PM CST Anesthesia Post-Op Visit Patient: Priscilla Fitzpatrick Anesthesia Post-Op Visit Postoperative day: 1 Follow-up type: outpatient regional Comments: No complaints. Eye dryness resolved. Block type: cont adductor canal block Catheter site: clean, intact, non tender Sensory assessment: normal-preoperative baseline Motor assessment: normal-preoperative baseline Current pain scale: 2/10 Pain scale last 24 hours: 4/10 Rate (ml/hour): 5 Frequency of On-Q bolus (hour): 3 R DEPARTMENT SUPERVISOR Laura Ayala M.D. - 05/28/2017 5:50 PM CST Anesthesia Post-Op Visit Patient: Priscilla Fitzpatrick Anesthesia Post-Op Visit Postoperative day: 2 Follow-up type: outpatient regional Comments: Unable to reach by phone. Left message on identified voice mail to d/c catheter and pain pump when empty. Block type: cont adductor canal block R DEPARTMENT SUPERVISOR documented in this encounter Nursing Notes Laura Pierson REileen. - 05/28/2017 2:12 PM CST Pt. States right eye is sore post op. Outer corner of eye is slightly red, sclera edema noted. Lacrilube ordered and placed in eye with some relief. R DEPARTMENT SUPERVISOR documented in this encounter OR Notes Op Note - Cedric Sweeney M.D. - 05/28/2017 11:47 AM CST Date of Operation: 05/29/2017 PRE-OPERATIVE DIAGNOSIS 1. Right knee ACL tear. 2. Medial meniscal tear. POST-OPERATIVE DIAGNOSIS 1. Right knee ACL tear. 2. Medial meniscal tear. PROCEDURE(S) 1. Right knee arthroscopy. 2. Partial medial meniscectomy. 3. Arthroscopically assisted ACL reconstruction using patellar tendon allograft. SURGEON(S) AND ROLE Cedric Sweeney M.D. CONSTRUCTION IRONWORKER: Kimberlyn Alvarez APRN, Sharon.N.P., C.N.P. I requested Kimberlyn Alvarez to assist with this ACL reconstruction. Assistance was medically necessaryin order to safely perform the procedure without increased blood loss or morbidity. Assistance was provided through positioning, instrumentation, and retraction of incisions for better visualization of underlying structures and cauterization for hemostasis. Assistance was also provided through wound closure, instillation of anesthetic, application of sterile dressing, and safe transport from the operative suite. ANESTHESIA TYPE Spinal anesthesia. INDICATIONS: Priscilla is a 61-year-old woman, who sustained injury to her knee and has had problems with persistent instability as well as pain despite conservative measures making no significant improvement in symptoms. We discussed risks, benefits, alternatives to knee arthroscopy, partial medial meni scectomy and ACL reconstruction with her. She understands and desires to have surgery. Preop signed. DESCRIPTION OF PROCEDURE Patient was brought to the operating room and placed on the operating room table in the seated position. Spinal anesthesia was smoothly induced and she was then placed in supine position. Tourniquet placed around her right thigh. Right leg was then prepped and draped in sterile fashion. Leg was exsanguinated. Tourniquet inflated to 250 mmHg. Injection of 1% lidocaine with epinephrine placed in the medial lateral joint line. A small incision was made laterally incisions into the knee joint. Knee joint was then filled with saline. Patellofemoral joint was then visualized. She is noted to have grade 2B changes to the undersurface of the patella and grade 2 changes in the femoral trochlea. Medial gutter was visualized. There were no loose bodies seen. Medial compartments then visualized. Small incision was made medially. She was noted to have significant tearing to the posterior horn of the medial meniscus but quite significant grade 3 changes on the medial femoral condyle as well as medial tibial plateau. Punch was then used to remove this portion of the meniscus followed by a shaver to shave to a smooth transition. Once that was completed, the notch was visualized, the ACL was noted to be torn.Shaver was then used to remove the stump. PCL appeared to be intact. An ablation device then used to remove soft tissue from the notch followed by appropriate notchplasty. Once that was completed, the lateral compartments then visualized. There is no significant meniscal tearing. Lateral gutter is visualized. There were no loose bodies seen. A small incision was made on the medial aspect of the tibia. It is brought down through subcutaneous tissue to expose the proximal tibia. Medially the guide for the tibial pin was then placed intra-articularly and a guide pin was placed. A 10 mm reamer was thenreamed over this. Once that was completed, the remaining bone bits removed from the joint. The femoral guide was placed through the tibia up into the appropriate position. The femur guide pin was then placed up through the femur up into the anterior lateral aspect of the femur. A 10 mm reamer was thenreamed approximately 3 to 5 mm deep. Once that was completed, the rigid fix device then passed up through the tibia into the femur. Once this was in appropriate position, cross pin trocars were then placed from laterally. The rigid fix device was then removed. The graft was then placed up through the t ibia up into the femur. Once it was into position, 2 absorbable pins were then drilled across and placed. The trocar was then removed. The knee was put through a range of motion. Traction was placed distally with the knee in near full extension. A guide pin was then placed. An 8 x 25 mm absorbable screw was then placed in the tibia. Once that was completed, the remaining bone from the graft distally was then removed. Once that was completed, the final pictures of the ACL graft appeared to demonstrate to be intact in good position with no signs of impingement. The knee was then suctioned and copiously irrigated and suctioned out. The subcutaneous tissue was then closed using 3-0 Vicryl in interrupted fashion followed by 4-0 Monocryl for the skin. Incision then washed and dried. Steri-Strips were applied, followed by a nonadherent dressing and Rom bandage. The brace tourniquet was let down. Patient transferred to recovery in good condition. Needle and sponge counts correct. R DEPARTMENT SUPERVISOR documented in this encounter Plan of Treatment Upcoming Encounters Date Type Specialty Care Team Description 02/02/2022 Immunization Family Medicine 02/12/2022 Office Visit Dermatology Lacy Dykes M.D. [address] [place], [place] [phone] (Wo rk) 02/22/2022 Office Visit Orthopedic Surgery Kimberlyn Alvarez APRN C.N.PPhil, D.N.P. [address], [place] [phone] (Wo rk) 03/12/2022 Diagnostic Otorhinolaryngology Blanka Carranza C.N.P. [address] [place], [place] [id number] Aleena Hassan Au.D. [address] [place] [phone] Scheduled Referrals Name Type Priority Associated Order Schedule Diagnoses Orthopedic Surgery Outpatient Referral Routine Pain Knee Right Expected: Post Op (clinic) - 8 with surgical (Approximate), service Expires: 05/28/2020 documented as of this encounter Procedures Procedure Name Priority Date/Time Associated Diagnosis Comme nts ARTHROSCOPY RECONSTRUCTION 05/28/2017 11:07 AM Pain Kn ee Right ANTERIOR CRUCIATE LIGAMENT ORDER DEPARTMENT SUPERVISOR KNEE - ALLOGRAFT documented in this encounter Visit Diagnoses Diagnosis Pain Knee Right - Primary Pain Knee Right documented in this encounter Admitting Diagnoses Diagnosis Pain Knee Right documented in this encounter Administered Medications Inactive Administered Medications - up to 3 most recent administrations Medication Order MAR Action Action Date Dose Rate Site dexamethasone injection 4 mg (for_DECADR ON) 4 mg, intravenous, Once as needed, nausea, vomiting, S tarting on Fri05/28/17 at 1311, For 1 dose, PACU (only), Give only if NOT given during the pre or intraoperative period. If ondansetron or dered, give dexamethasone with first dose of ondansetron. droperidol injection 0.625 mg (for_INAPS INE) 0.625 mg, intravenous, Every 6 hours PRN , nausea, vomiting, Starting on Fri05/28/17 at 1311, For 48 hours, PACU (only), Tota l of 3 doses in 24 hour period. RASS must be -2 or higher to administer. Reassess for nausea or vomiting after at least 10 minutes. If nausea or vomiting persists administer nex t ordered antiemetic medications (order for antiemetic medication administr ation ondansetron then droperidol then promethazine). fentaNYL injection 25 mcg (for_SUBLIMAZE ) 25 mcg, intravenous, Every 2 min PRN, Fo r pain 4 or greater (maximum 100 mcg). If max dose of Fentanyl is reached and if pain is greater than 4, discontinue Fentanyl: give Hydromorphone, Starting T mykel at 1551, PACU (only), Starting on Fri05/28/17 at 1311, PACU (only) HYDROmorphone injection 0.5 mg (for_DILA UDID) 0.5 mg, intravenous, Every 5 min PRN, mo derate pain or score 4-6 of 10, severe pain or score 7-10 of 10, Starting on 05/09 at 1311, PACU (only), Up to maximum total dose of 2 mg lactated ringers New Bag 05/28/2017 10:22 AM ORDER DEPARTMENT SUPERVISOR 20 mL/hr, intravenous, Continuous, Starting on Fri05/28/17 at 0900, Pre-Op metoprolol tablet 12.5 mg (for_LOPRESSOR ) 12.5 mg, oral, Once as needed, if patien t did not take their last scheduled dose of beta loco prior to arrival, Starting on Fri05/28/17 at 0853, For 1 dose, Pre-Op, Do not give if patient does not take scheduled beta bl ockers, if patient is receiving intravenous vasopressors or inotropes, if he art rate is less than 50 beats per minute, if systolic blood pres sure is less than 90 mmHg or if diastolic blood pressure is less than 40 mmHg, or if patient has an allergy to metoprolol. ondansetron (PF) injection 4 mg (for_ZOF RAN) 4 mg, intravenous, Every 6 hours PRN, na usea, vomiting, Starting on Fri05/28/17 at 1311, For 48 hours, PACU (only), Reasses s for nausea or vomiting after at least 10 minutes. If nausea or vomiting persists administer nex t ordered antiemetic medications (order for antiemetic medication administr ation ondansetron then droperidol then promethazine). oxyCODONE IR tablet 10 mg (for_ROXICODON E) 10 mg, oral, Every 4 hours PRN, severe p ain or score 7-10 of 10, Starting on Fri05/28/17 at 1312, PACU & Post-Op, Second line therapy. If patient is greater than 7 after 2 hours, call service for new order. oxyCODONE IR tablet 5 mg (for_ROXICODONE ) Given 05/28/2017 5:31 PM ORDER DEPARTMENT SUPERVISOR 5 mg 5 mg, oral, Every 4 hours PRN, moderate pain or score 4-6 of 10, Starting on Fri05/28/17 at 1312, PACU & Post-Op, Second line therapy promethazine injection 6.25 mg (for_PHEN ERGAN) 6.25 mg, intravenous, Every 6 hours PRN, nausea, vomiting, Starting on Fri05/28/17 at 1311, For 48 hours, PACU (only), RASS must be -2 or higher to administer. Reassess for nausea/vomiting after at least 10 minutes . If nausea or vomiting persists administer next ordered antiemetic medication s (order for antiemetic medication administration ondansetron th en droperidol then promethazine). If given IV push: Administer no more than 12.5 mg over 2 minute s. ropivacaine (PF) 0.2 % 550 mL On-Q New Bag 05/28/2017 12:50 PM ORDER DEPARTMENT SUPERVISOR 5 mL/hr 5 mL/hr pain pump 6 mL/hr, nerve catheter, Continuous, Starting on Fri05/28/17 at 1215, Nerve Catheter Location: Adductor Canal, Device: On-Q Pump scopolamine base 1 mg Medication Applied 05/28/2017 9:56 AM 1 patch Behind Left over 3 days 1 patch ORDER DEPARTMENT SUPERVISOR Ear (for_TRANSDERM SCOP) 1 patch, transdermal, Administer over 72 Hours, Once as needed, nausea, vomiting, Starting on Fri05/28/17 at 0852, For 1 dose, Pre-Op sodium chloride injection 10 mL 10 mL, intravenous, Every 8 hours scheduled (RT), Firs t dose on Fri05/28/17 at 1500, Pre-Op, Peripheral Intravenous Cat heter and Rapid Infusion Catheter, prior to blood sampling, post blood transfusion or post blood s ampling sodium chloride injection 10 mL 10 mL, intravenous, Every 8 hours scheduled (RT), Firs t dose on Fri05/28/17 at 1500, Pre-Op, Peripheral Intravenous Cat heter and Rapid Infusion Catheter, prior to blood sampling, post blood transfusion or post blood s ampling sodium chloride injection 3 mL 3 mL, intravenous, Every 12 hours scheduled, First dos e on Fri05/28/17 at 0900, Pre-Op, Peripheral Intravenous Catheter and Rapid Infu hong Catheter, when no infusion to maintain patency sodium chloride injection 3 mL 3 mL, intravenous, Every 12 hours scheduled, First dos e on Fri05/28/17 at 0900, PACU & Post-Op, Peripheral Intravenous C atheter and Rapid Infusion Catheter, when no infusion to maintain patency sodium chloride injection 3 mL 3 mL, intravenous, As needed, line care, Starting on Fri05/28/17 at 0853, Pre-Op, Prior to and following infusion and betw een multiple consecutive infusions: sodium chloride 0.9 % injection sodium chloride injection 3 mL 3 mL, intravenous, Every 12 hours scheduled, First dos e on Fri05/28/17 at 0900, Pre-Op, Peripheral Intravenous Catheter and Rapid Infu hong Catheter, when no infusion to maintain patency traMADol tablet 100 mg (for_ULTRAM) 100 mg, oral, Every 6 hours PRN, moderat e pain or score 4-6 of 10, severe pain or score 7-10 of 10, Starting on Fri05/28/17 at 1312, PAC U & Post-Op, First line therapy or for pain greater than comfort goal (not to exceed 400 mg in 24 hours)., Drug Monitoring Program: Pharmacist to a djust medication order based on comorbities and indication. traMADol tablet 50 mg (for_ULTRAM) 50 mg, oral, Every 6 hours PRN, mild pain or score 1-3 of 10, Starting on Fri05/28/17 at 1312, PACU & Post-Op, Fir st line therapy, Drug Monitoring Program: Pharmacist to adjust medication order based on comorbi ties and indication. white petrolatum-mineral oil ophthalmic Given 05/28/19 18 1:30 PM ORDER DEPARTMENT SUPERVISOR 0.25 inches ointment 0.25 inch (for_REFRESH P.M.) 0.25 inch, both eyes, 3 times daily PRN, dry eyes, Starting on Fri05/28/17 at 1315 documented in this encounter Active and Recently Administered Medications Times are shown in ORDER DEPARTMENT SUPERVISOR. Scheduled Medication Order 05/26/2017 05/27/2017 05/28/2017 ceFAZolin in dextrose (iso-osm) IVPB 2 g (for_ANCEF) (COMPLETED) 1122 (Given - Provider: Joy Sagastume APRN, BOTTOM IRONER) 2 g, intravenous, at 100 mL/hr, Administ er over 30 Minutes, Once, On Fri05/28/17 at 0900, For 1 dose, Intra-Op, Preoperatively within 1 hour prior to surgical incision Duplex bag - activate before felicitasi ng. , Drug Monitoring Program: Pharmacis t to adjust medication order based on comorbities and indication., Indications: Prophylaxis, surgical lidocaine 10 mg/mL (1 %) injection 1 mL (for_XYLOCAINE) 0900 (Due) 1 mL, infiltration, Once, Fri05/28/17 at 0900, For 1 dose, Pre-Op, May admin up to 1 mL at the site of IV site if not allergic to lidocaine sodium chloride injection 10 mL 1500 (Due) 10 mL, intravenous, Every 8 hours schedu led (RT), First dose on Fri05/28/17 at 1500, Pre-Op, Peripheral Intravenous Catheter and Rapid Infusion Catheter, prior to blood sampling, post blood transfusion or post blood sampling sodium chloride injection 10 mL 1500 (Due) 10 mL, intravenous, Every 8 hours schedu led (RT), First dose on Fri05/28/17 at 1500, Pre-Op, Peripheral Intravenous Catheter and Rapid Infusion Catheter, prior to blood sampling, post blood transfusion or post blood sampling sodium chloride injection 3 mL 0 900 (Due) 3 mL, intravenous, Every 12 hours schedu led, First dose on Fri05/28/17 at 0900, Pre-Op, Peripheral Intravenous Catheter and Rapid Infusion Catheter, when no infusion to maintain patency sodium chloride injection 3 mL 0 900 (Due) 3 mL, intravenous, Every 12 hours schedu led, First dose on Fri05/28/17 at 0900, PACU & Post-Op, Peripheral Intravenous Catheter and Rapid Infusion Catheter, when no infusion to maintain patency sodium chloride injection 3 mL 0 900 (Due) 3 mL, intravenous, Every 12 hours schedu led, First dose on Fri05/28/17 at 0900, Pre-Op, Peripheral Intravenous Catheter and Rapid Infusion Catheter, when no infusion to maintain patency Continuous Medication Order 05/26/2017 05/27/2017 05/28/2017 lactated ringers 1022 (New Bag - Provider: Joy Sagastume APRN, DIANNE)1245 (Anesthesia Volume Adjustment - Provider: Joy Sagastume APRN, DIANNE) 20 mL/hr, intravenous, Continuous, Starting on Fri05/28/17 at 09 00, Pre-Op NaCl 0.9% infusion 1345 (Due) 50 mL/hr, intravenous, at 50 mL/hr, Cont inuous, Starting Fri05/28/17 at 1345, PACU & Post-Op, Until tolerating oral diet ropivacaine (PF) 0.2 % 550 mL On-Q pain pump 1250 (New Bag - Provider: Joy Sagastume APRN, DIANNE) 6 mL/hr, nerve catheter, Continuous, Sta rting on Fri05/28/17 at 1215, Nerve Catheter Location: Adductor Canal, Device: On-Q Pump PRN Medication Order 05/26/2017 05/27/2017 05/28/2017 dexamethasone injection 4 mg (for_DECADRON) 4 mg, intravenous, Once as needed, nause a, vomiting, Starting Fri05/28/17 at 1312, For 1 dose, PACU & Post-Op, Give only if NOT given during the pre or intraoperative period. If ondansetron ordered, give dexamethasone with first dose of ondansetron. dexamethasone injection 4 mg (for_DECADRON) 4 mg, intravenous, Once as needed, nause a, vomiting, Starting on Fri05/28/17 at 1311, For 1 dose, PACU (only), Give only if NOT given during the pre or intraoperative period. If ondansetron ordered, give dexamethasone with first dose of ondansetron. droperidol injection 0.625 mg (for_INAPSINE) 0.625 mg, intravenous, Every 6 hours PRN , nausea, vomiting, Starting Fri05/28/17 at 1312, For 48 hours, PACU & Post-Op, Total of 3 doses in 24 hour period. RASS must be -2 or higher to administer. R eassess for nausea or vomiting after at least 10 minutes. If nausea or vomiting persists administer next ordered antiemetic medications (order for antiemetic medication administration ondansetron then droperidol then promethazine). droperidol injection 0.625 mg (for_INAPSINE) 0.625 mg, intravenous, Every 6 hours PRN , nausea, vomiting, Starting on Fri05/28/17 at 1311, For 48 hours, PACU (only), Total of 3 doses in 24 hour period. RASS must be -2 or higher to administer. Reass ess for nausea or vomiting after at leas t 10 minutes. If nausea or vomiting persists administer next ordered antiemetic medications (order for antiemetic medication administration ondansetron then droperidol then promethazine). fentaNYL injection 25 mcg (for_SUBLIMAZE) 25 mcg, intravenous, Every 2 min PRN, Fo r pain 4 or greater (maximum 100 mcg). If max dose of Fentanyl is reached and if pain is greater than 4, discontinue Fentanyl: give Hydromorphone, Starting Today at 1551, PACU (only), Starting on Fri05/28/17 at 1311, PACU (onl y) HYDROmorphone injection 0.5 mg (for_DILAUDID) 0.5 mg, intravenous, Every 2 hour PRN, s evere pain or score 7-10 of 10, Starting Fri05/28/17 at 1312, For 2 doses, PACU & Post-Op, May administer if pain is greater than 7 after scheduled and PRN re gimen exhausted. If pain remains greater than 7, notify primary service. HYDROmorphone injection 0.5 mg (for_DILAUDID) 0.5 mg, intravenous, Every 5 min PRN, mo derate pain or score 4-6 of 10, severe pain or score 7-10 of 10, Starting on Fri05/28/17 at 1311, PACU (only), Up to maximum total dose of 2 mg lidocaine-EPINEPHrine 1 %-1:100,000 injection (for_XYLOCAINE W/EPI) (CANCELED) 1239 (Given - Provider: Cedric Sweeney M.D.) As needed, Starting on Fri05/28/17 at 1239, Intra-Op metoprolol tablet 12.5 mg (for_LOPRESSOR) 12.5 mg, oral, Once as needed, if patien t did not take their last scheduled dose of beta loco prior to arrival, Starting on Fri05/28/17 at 0853, For 1 dose, Pre-Op, Do not give if patient does not ta ke scheduled beta blockers, if patient i s receiving intravenous vasopressors or inotropes, if heart rate is less than 50 beats per minute, if systolic blood pressure is less than 90 mmHg or if diastolic blood pressure is less than 40 mmHg, or if patient has an allergy to metoprolol. ondansetron (PF) injection 4 mg (for_ZOFRAN) 4 mg, intravenous, Every 6 hours PRN, na usea, vomiting, Starting Fri05/28/17 at 1312, For 48 hours, PACU & Post-Op, Reassess for nausea or vomiting after at least 10 minutes. If nausea or vomiting p ersists administer next ordered antiemet ic medications (order for antiemetic medication administration ondansetron then droperidol then promethazine). ondansetron (PF) injection 4 mg (for_ZOFRAN) 4 mg, intravenous, Every 6 hours PRN, na usea, vomiting, Starting on Fri05/28/17 at 1311, For 48 hours, PACU (only), Reassess for nausea or vomiting after at least 10 minutes. If nausea or vomiting persi sts administer next ordered antiemetic m edications (order for antiemetic medication administration ondansetron then droperidol then promethazine). oxyCODONE IR tablet 10 mg (for_ROXICODONE)(Linked Group 1) 4373 (See Alternative - Provider: Aminah Butler R.N.) 10 mg, oral, Every 4 hours PRN, severe p ain or score 7-10 of 10, Starting on Fri05/28/17 at 1312, PACU & Post-Op, Second line therapy. If patient is greater than 7 after 2 hours, call service for new order. oxyCODONE IR tablet 5 mg (for_ROXICODONE)(Linked Group 1) 9433 (Given - Provider: Aminah Butler R.N.) 5 mg, oral, Every 4 hours PRN, moderate pain or score 4-6 of 10, Starting on Fri05/28/17 at 1312, PACU & Post-Op, Second line therapy promethazine injection 6.25 mg (for_PHENERGAN) 6.25 mg, intravenous, Every 6 hours PRN, nausea, vomiting, Starting Fri05/28/17 at 1312, For 48 hours, PACU & Post-Op, RASS must be -2 or higher to administer. Reassess for nausea/vomiting after at least 10 minutes. If nausea or vomiting persists administer next ordered antiemetic medications (order for antiemetic medication administration ondansetron then droperidol then promethazine). If given I V push: Administer no more than 12.5 mg over 2 minutes. promethazine injection 6.25 mg (for_PHENERGAN) 6.25 mg, intravenous, Every 6 hours PRN, nausea, vomiting, Starting on Fri05/28/17 at 1311, For 48 hours, PACU (only), RASS must be -2 or higher to administer. Reassess for nausea/vomiting after at leas t 10 minutes. If nausea or vomiting pers ists administer next ordered antiemetic medications (order for antiemetic medication administration ondansetron then droperidol then promethazine). If given IV pu sh: Administer no more than 12.5 mg over 2 minutes. scopolamine base 1 mg over 3 days 1 patch (for_TRANSDERM SCOP) 9337 (Medication Applied - Provider: Laura Pierson R.N.)2103 (Due: Medication Removed - Provider: Discharge Provider, Automatic - Comment: Time automatically adjusted from order being discontinued) 1 patch, transdermal, Administer over 72 Hours, Once as needed, nausea, vomiting, Starting on Fri05/28/17 at 0852, For 1 dose, Pre-Op sodium chloride injection 3 mL 3 mL, intravenous, As needed, line care, Starting on Fri05/28/17 at 0853, Pre- Op, Prior to and following infusion and between multiple consecutive infusions: sodium chloride 0.9 % injection traMADol tablet 100 mg (for_ULTRAM)(Linked Group 2) 2237 (See Alternative - Provider: Aminah Butler R.N.) 100 mg, oral, Every 6 hours PRN, moderat e pain or score 4-6 of 10, severe pain or score 7-10 of 10, Starting on Fri05/28/17 at 1312, PACU & Post-Op, First line therapy or for pain greater than comfo rt goal (not to exceed 400 mg in 24 hour s)., Drug Monitoring Program: Pharmacist to adjust medication order based on comorbities and indication. traMADol tablet 50 mg (for_ULTRAM)(Linked Group 2) 1727 (Not Given - Provider: Aminah Butler R.N. - Reason: Patient/family refused - Comment: Scanned medication out but patient then stated tramadol makes her sick to her stomach/vomiting. Wasted dose via pyxis.) 50 mg, oral, Every 6 hours PRN, mild lissy n or score 1-3 of 10, Starting on Fri05/28/17 at 1312, PACU & Post-Op, First line therapy, Drug Monitoring Program: Pharmacist to adjust medication order based on comorbities and indication. white petrolatum-mineral oil ophthalmic ointment 0.25 inch (for_ REFRESH P.M.) 1330 (Given - Provider: Laura Pierson R.N.) 0.25 inch, both eyes, 3 times daily PRN, dry eyes, Starting on Fri05/28/17 at 1315 Linked Groups Order Group 1: oxyCODONE IR tablet 5 mg (for_ROXICODONE)Jump to med 5 mg, oral, Every 4 hours PRN, moderate pain or score 4-6 of 10, Starting on Fri05/28/17 at 1312, PACU & Post-Op
Second line therapy
Or oxyCODONE IR tablet 10 mg (for_ROXICODONE)Jump to med 10 mg, oral, Every 4 hours PRN, severe p ain or score 7-10 of 10, Starting on Fri05/28/17 at 1312, PACU & Post-Op
Second line therapy. If patient is greater than 7 after 2 hours, call service for new order.
Group 2: traMADol tablet 50 mg (for_ULTRAM)Jump to med 50 mg, oral, Every 6 hours PRN, mild lissy n or score 1-3 of 10, Starting on Fri05/28/17 at 1312, PACU & Post-Op
First line therapy
Drug Monitoring Program: Pharmacist to adjust medication order based on comorbities and indication. Or traMADol tablet 100 mg (for_ULTRAM)Jump to med 100 mg, oral, Every 6 hours PRN, moderat e pain or score 4-6 of 10, severe pain or score 7-10 of 10, Starting on Fri05/28/17 at 1312, PACU & Post-Op
First line therapy or for pain greate r than comfort goal (not to exceed 400 m g in 24 hours).
Drug Monitoring Program: Pharmacist to adjust medication order based on comorbities and indication. documented in this encounter Additional Health Concerns Assessment Noted Time PHQ-9 Depression Total Score: 2 04/22/2015 11:24 AM CS T documented as of this encounter
--- OUTSIDE RECORDS SUMMARY | 2022-01-31 09:40 | XMS_ITS | Encounter Summary ---
:1955 Author Organization [facility] Address [address] [place] [address] Care Team Providers Name Role Phone Unavailable Primary Care Provider Unavailable Reason for Visit Reason Comments Follow-up ACL repair Post-op ACL repair Outpatient (Routine) - Closed Specialty Diagnoses / Procedures Referred By Contact Refer red To Contact Orthopedic Surgery Diagnoses Pain Knee Right Cedric Sweeney, [facility] [address] [place] [phone] Referral ID Status Reason Start Date Expiration Date Visits Requ ested Visits Authorized [id number] Closed 05/22/2017 11/18/2017 1 1 Encounter Details Date Type Department Care Team Description 06/17/2017 Office Visit Department of Orthopedic Cedric Sweeney, Pain Knee Right Surgery [place] [address] [phone] Social History Tobacco Use Types Packs/Day Years Used Date Smoking Tobacco: Former Smokeless Tobacco: Never Alcohol Habits Answer Date Recorded How often do you have a drink containing 4 or more times a w [place] 07/30/2021 alcohol? How many drinks [...] you attend adventist or Patient refused 2021 church services? 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 - 06/17/2017 9:00 AM CDT HISTORY OF PRESENT ILLNESS Priscilla is a 61-year-old woman here in regard to her right knee. She is status post ACL reconstruction. She is doing quite well at this point in time. She is still having some pain but it in general seems to be gradually improving. PHYSICAL EXAMINATION Examination of her knee: Her incision appears quite benign. Her knee range of motion is just 3-5 degrees short of full extension to 100 degrees of flexion. She is stable to varus and valgus stress. Herquadriceps strength is excellent. Danay's is negative. ASSESSMENT / PLAN #1 Priscilla is a 61-year-old woman status post anterior cruciate ligament reconstruction She is doing extremely well. We will have her continue to work on her exercise program, working on knee range of motion and strengthening with the help of physical therapy and we would plan to see her back in another 6 weeks. documented in this encounter Plan of Treatment Upcoming Encounters Date Type Specialty Care Team Description 02/02/2022 Immunization Family Medicine 02/12/2022 Office Visit Dermatology Lacy Dykes M.D. [address] [place], [place] [phone] (Wo rk) 02/22/2022 Office Visit Orthopedic Surgery Kimbelryn Alvarez APRN, C.N.P., D.N.P. [address] [place], [place] [phone] (Wo rk) 03/12/2022 Diagnostic Otorhinolaryngology Blanka Carranza, C.N.P. [address] [place], [place] [phone] Aleena Hassan Au.D. [address] [place] [phone] documented as of this encounter Visit Diagnoses Diagnosis Pain Knee Right documented in this encounter Additional Health Concerns Assessment Noted Time PHQ-9 Depression Total Score: 2 04/22/2015 11:24 AM SAUL T documented as of this encounter
--- OUTSIDE RECORDS SUMMARY | 2022-01-31 09:40 | XMS_ITS | Encounter Summary ---
:1955 Author Organization [facility] Address [address] [place] [address] Care Team Providers Name Role Phone Unavailable Primary Care Provider Unavailable Encounter Details Date Type Department Care Team Description 05/29/2017 Orders Only Department of Kannan Dodd Anterior Cr uciate Orthopedic Surgery in [facility] Ligame nt Reconstruction [place], [place] Status Post (Primary Dx) [address] [place] [address] Social History Tobacco Use Types Packs/Day Years Used Date Smoking Tobacco: Former Smokeless Tobacco: Never Alcohol Habits Answer Date Recorded How often do you have a drink containing 4 or more times a w [place] 07/30/2021 alcohol? How many drinks containing alcohol [...] you attend baptism or Patient refused 2021 alevism services? 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 [address] [place], [place] [phone] ( rk) 02/22/2022 Office Visit Orthopedic Surgery Kimberlyn Alvarez, JOSE DANIEL, C.N.P., D.N.P. [address] [place], [place] [phone] (Wo rk) 03/12/2022 Diagnostic Otorhinolaryngology Blanka Carranza, C.N.P. [address] [place] [address] Aleena Hassan Au.D. [address] [place] [phone] documented as of this encounter Visit Diagnoses Diagnosis Anterior Cruciate Ligament Reconstructio n Status Post - Primary documented in this encounter Additional Health Concerns Assessment Noted Time PHQ-9 Depression Total Score: 2 04/22/2015 11:24 AM CS T documented as of this encounter
--- OUTSIDE RECORDS SUMMARY | 2022-01-31 09:40 | XMS_ITS | Encounter Summary ---
:1955 Author Organization [facility] Address [address] [place] [address] Care Team Providers Name Role Phone Unavailable Primary Care Provider Unavailable Reason for Visit Physical Therapy (Routine) - Closed Specialty Diagnoses / Procedures Referred By Contact Refer red To Contact Physical Therapy Diagnoses Follow Up Examination Postoperative Visit Cedric Sweeney, [facility] [place] egion Procedures PT Evaluate and treat Sudarshan [address] [place] [address] Referral ID Status Reason Start Date Expiration Date Visits Requ ested Visits Authorized [id number] Closed 05/28/2017 11/24/2017 12 1 Encounter Details Date Type Department Care Team Description 06/02/2017 Comprehensive Visit Department of Edwin Sweeney M.D. [address] [place] [address] Anterior Cruciate Ligament Reconstructio n Status Post (Primary Dx); Rehabilitation Tushar Ware, P.T. [address] [place] [phone] Follow Up Examination Postoperative Visi t Services in [address] [phone] Social History Tobacco Use Types Packs/Day Years [...] you attend uatsdin or Patient refused 2021 [employer]aritan services? 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 - 06/02/2017 8:30 AM CST Physical Therapy Evaluation and Treatment Outpatient SUBJECTIVE Referring Provider: Cedric Sweeney M.D. [address] [place] [phone] Referring Diagnosis: Rehab Diagnosis: 1. Anterior Cruciate Ligament Reconstruction Status Post 2. Follow Up Examination Postoperative Visit Onset Date: PERTINENT MEDICAL / SURGICAL HISTORY: Patient Active Problem List Diagnosis ??? Mood Disorder NOS ??? Dysthymia ??? Pain Knee Right ??? Hypertension NOS ??? Hypothyroidism ??? Hyperlipidemia ??? Anterior Cruciate Ligament Reconstruction Status Post Past Surgical History: Procedure Laterality Date ??? ABDOMINAL SURGERY ??? ARTHROSCOPY RECONSTRUCTION ACL KNEE - ALLOGRAFT Right 05/28/2017 Procedure: ARTHROSCOPY RECONSTRUCTION ANTERIOR CRUCIATE LIGAMENT KNEE - ALLOGRAFT, partial medial menisectomy; Surgeon: Cedric Sweeney M.D.; Location: [facility] OR ??? BLADDER SURGERY 03/23/2003 Sling operation for stress incontinence ??? BLEPHAROPLASTY - LOWER LID Bilateral 10/01/2012 ??? BREAST SURGERY Bilateral Breast Lifts ??? SECTION 1982 ??? COLPORRHAPHY 03/23/2003 Combined anterior posterior ??? HAND SURGERY Right 11/21/2004 Open treatment metacarpophalangeal dislocation ??? TONSILLECTOMY Prior Hospitalization: Visit Count: @[email or web address]@ Priscilla Fitzpatrick is a 61 y.o. female who presents to outpatient physical therapy status post ACL repair . Overall she reports her status remains the same . History of Present Illness: Pain: 07/15 Functional Limitations: Patient presently ambulates with a crutch and has a straight leg brace on. Occupational Profile Prior Level of Function: Patient was independent. Current Level of Function: Patient is limited with ambulation at this time secondary to ACL repair. (hand dominance) Patient/Caregiver Goals: patient would like to resume normal activities as soon as possible. She does a lot of traveling forher work. She would like to drive as soon as possible. OBJECTIVE REVIEW OF SYSTEMS: PHYSICAL EXAM Observation / Inspection: Upon observation, patient ambulates into therapy with a standard crutch. She is full weight-bearing on her right lower extremity. However, she is to remain in a straight leg brace to do so. Posture: Overall posture is good. Range of Motion: Presently, patient presents with knee flexion to approximately 90?? with pain at pathological end range. Extension is to 0??. Strength: We do not test the strength at this time secondary to recent surgery. However, she does perform a good VMO contraction. Palpation: Ambulation / Balance: Patient is independent ambulating with a standard crutch. Special Tests: Functional Level: Patient is independent with ambulation. She is still unable to drive at this time.Otherwise, she is doing most of her own activities. Fall Assessment: Measures - Tools Assessment Clinical Impression: Upon observation, patient was able to get up on the treatment table without difficulty. We did remove the leg brace and we did check her mobility. Presently, she is able to bring her knee to approximately 90??. There is an extension lag of nearly 0??. We had patient work on quad isometrics. We had her work on straight leg raises which she could do without compromise of the knee. We also had her work on some heel slides. She tolerated this well. We strongly encouraged her to keepher knee in the brace at this time. We mention that this maybe 4-6 weeks in the brace. We readjustedthe brace to fit her appropriately. Rehab Potential: potential for Ms. Fitzpatrick's condition to improve in response to skilled physical therapy within a reasonable period of time, improving her functional ability is good. Complicating Factors: None. Clinical Presentation: stable Number of Evaluation Elements Assessed: 1 Clinical Decision Making Complexity: low PT Evaluation Code: PT Evaluation low complexity Functional Goals and Timeframes: 1. To increase knee flexion to 120?? within 3 weeks. 2 patient is independent with home exercise program which will address mobility and eventually strengthening within 2 weeks. 3. Patient is able to drive within 6 weeks. Long-term goal: 1. To increase overall strength of the knee to 4/5 within 6 weeks. 2. Patient is able to resume normal activities within 3 months. The severity of Ms. Fitzpatrick???s functional limitation will be re-assessed within the next ten visits. Treatment: Following physical therapy evaluation, Ms. Fitzpatrick was educated regarding the nature and progression of her chief complaint. Plan Ms. Fitzpatrick will be treated starting 06/02/2017 for 12 visits visits. Treatment may include manual therapy along with therapeutic exercises. Frequency and Duration: we will plan to see patient 3 times per week for the 1st week and then decrease to 1-2 times per week for the next several weeks. We will progress accordingly. This therapist communicated information to Ms. Fitzpatrick regarding evaluative findings, diagnosis, prognosis, potential risks and benefits of rehabilitation interventions. This therapist collaborated with her to establish goals and a therapy plan of care. She was informed of her right to make decisions regarding her care, including refusal of examination or treatment or selection of therapy services from another provider if desired. Tushar Ware P.T. @[email or web address]@ [employer] documented in this encounter Plan of Treatment Upcoming Encounters Date Type Specialty Care Team Description 02/02/2022 Immunization Family Medicine 02/12/2022 Office Visit Dermatology Lacy Dyeks M.D. [address] [place], [place] [phone] (Wo rk) 02/22/2022 Office Visit Orthopedic Surgery Kimberlyn Alvarez APRN C.N.P., D.N.P. [address] [place], [place] [phone] (Wo rk) 03/12/2022 Diagnostic Otorhinolaryngology Blanka Carranza C.N.P. [address] [place], [place] [phone] Aleena Hassan Au.D. [address] [place] [phone] documented as of this encounter Visit Diagnoses Diagnosis Anterior Cruciate Ligament Reconstructio n Status Post - Primary Follow Up Examination Postoperative Visi t documented in this encounter Additional Health Concerns Assessment Noted Time PHQ-9 Depression Total Score: 2 04/22/2015 11:24 AM CS T documented as of this encounter
--- OUTSIDE RECORDS SUMMARY | 2022-01-31 09:40 | XMS_ITS | Encounter Summary ---
:1955 Author Organization [facility] Address [address] [place] [address] Care Team Providers Name Role Phone Unavailable Primary Care Provider Unavailable Reason for Visit Physical Therapy (Routine) - Canceled Specialty Diagnoses / Procedures Referred By Contact Refer red To Contact Orthopedic Surgery Diagnoses Anterior Cruciate Ligament Reconstruction Status Post Cedric Sweeney, [facility] Region Procedures PT Ongoing treatment Sudarshan [address] [place] [address] Referral ID Status Reason Start Date Expiration Date Visits V isits Requested Authorized [id number] Canceled 06/02/2017 04/06/2018 15 24 Encounter Details Date Type Department Care Team Description 06/04/2017 Clinical Support Department of Cedric Sweeney M.D. [address] [place] [phone] Anterior Cruciate Rehabilitation Tushar Ware, P.TPhil [address] [place] [phone] Ligament Services in [facility] Status [place], [place] Post [address] [place] [phone] Social History Tobacco Use Types Packs/Day Years Used Date Smoking Tobacco: Former Smokeless Tobacco: Never Alcohol Habits Answer Date Recorded How often do you have a drink containing 4 or more times a w [place] 07/30/2021 alcohol? How many drinks containing alcohol [...] you attend pentecostalism or Patient refused 2021 lutheran services? 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 - 06/04/2017 1:30 PM CST Physical Therapy Outpatient Treatment Note Referring Provider: Cedric Sweeney M.D. Medical Diagnosis: 1. Anterior Cruciate Ligament Reconstruction Status Post - PT Ongoing treatment Payor: Payor: [employer] / Plan: [id number] BCBS / Product Type: PPO / Total Visit Count: 2 Visit Count since last G-Codes: 2 Principal Problem: Patient Active Problem List Diagnosis ??? Mood Disorder NOS ??? Dysthymia ??? Pain Knee Right ??? Hypertension NOS ??? Hypothyroidism ??? Hyperlipidemia ??? Anterior Cruciate Ligament Reconstruction Status Post SUBJECTIVE Priscilla comes into therapy today without complaints. She is now 1 week post ACL repair. She continues to wear brace. Pain Assessment Pain Score: 3 OBJECTIVE Today we did continue with some mobility of the right knee. We worked on passive range of motion forboth knee flexion and extension. We were able to initially obtain knee flexion to approximately 90??with an extension lag of no more than 3??. We did work on passive range of motion as well as some quad isometrics with straight leg raises. We also did start to work on some light open chain exercises.This was without difficulty. Patient was on the site fit for the 1st time today. She manage this well for 10 minutes. We did speak with . he was who feels that she can, the brace when she has good VMO contraction and she is stable without buckling of the right knee. She can discontinue wearing the brace at night. Measures - Tools Measures - Tools Treatment Provided Today: 30 minutes of therapeutic exercise. Home Exercise Program: ASSESSMENT Patient is doing well overall. Her mobility is slowly progressing. She is showing good VMO contraction. However, she is still not quite stable enough to go without the brace. We did give her a cane to use just to see how this goes at home with the brace on. We did adjust the brace from 0?? extension to 30?? of flexion. Therapy Goals PLAN Will continue to progress as able. We will see once again on Friday. She no longer needs to use the brace at night. Tushar Ware P.T. 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 [address] [place], [place] [phone] (Wo rk) 02/22/2022 Office Visit Orthopedic Surgery Kimberlyn Alvarez, JOSE DANIEL, C.N.P., D.N.P. [address] [place], [place] [phone] (Wo rk) 03/12/2022 Diagnostic Otorhinolaryngology Blanka Carranza C.NPhilPPhil [address] [place] [address] Aleena Hassan Au.D. [address] [facility] [place] [phone] documented as of this encounter Visit Diagnoses Diagnosis Anterior Cruciate Ligament Reconstructio n Status Post documented in this encounter Additional Health Concerns Assessment Noted Time PHQ-9 Depression Total Score: 2 04/22/2015 11:24 AM CS T documented as of this encounter
--- OUTSIDE RECORDS SUMMARY | 2022-01-31 09:40 | XMS_ITS | Encounter Summary ---
:1955 Author Organization [facility] Address [address] [place] [address] Care Team Providers Name Role Phone Unavailable Primary Care Provider Unavailable Reason for Visit Auth/Cert Specialty Diagnoses / Procedures Referred By Contact Refer red To Contact Diagnoses Pain Knee Right Procedures MD ARTHSC AID ACL RPR MD ARTHSC KNE W MNSCECTOMY MED/LAT ARTHROSCOPY RECONSTRUCTION ANTERIOR CRUCIATE LIGAMENT KNEE - ALLOGRAFT, partial medial menisectomy Referral ID Status Reason Start Date Expiration Date Visits Requ ested Visits Authorized [id number] 1 1 Encounter Details Date Type Department Care Team Description 05/28/2017 Surgery [facility] MAIN OR Cedric Sweeney, ARTHROSCOPY [address] RECONSTRUCTION [place] , [place] [address] CRUCIATE LIGAMENT KNEE - [id number] [place], [place] ALLOGRAFT, partial medial [phone] menisectomy [phone] (Wo rk) Social History Tobacco Use Types Packs/Day Years Used Date Smoking Tobacco: Former Smokeless Tobacco: Never Alcohol Habits Answer Date Recorded How often do you have a drink containing 4 or more times a w [place] 07/30/2021 alcohol? How many drinks containing [...] you attend evangelical or Patient refused 2021 hindu services? 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 - 05/28/2017 4:34 PM STABBER Brace on and locked whenever bearing weight. Toe touch or full weight bearing, whichever is comfortable. Crutches for support. Can wean to using one crutch on the left side. Call to set up physical therapy BER AttachmentsThe following attachments cannot be sent through Care Everywhere. Anterior Cruciate Ligament (ACL) Surgery (Vietnamese)documented in this encounter Medications at Time of Discharge Medication Sig Dispensed Refills Start Date End Date B.ANI/L.ACI/Kaushik.BERNICE/L.PLAN Take 1 capsule by 0 04/0 06/2012 [...] 5 Frequency of On-Q bolus (hour): 3 BER Laura Ayala M.D. - 05/28/2017 5:50 PM CST Anesthesia Post-Op Visit Patient: Priscilla Fitzpatrick Anesthesia Post-Op Visit Postoperative day: 2 Follow-up type: outpatient regional Comments: Unable to reach by phone. Left message on identified voice mail to d/c catheter and pain pump when empty. Block type: cont adductor canal block BER documented in this encounter Nursing Notes Laura Pierson R.N. - 05/28/2017 2:12 PM CST Pt. States right eye is sore post op. Outer corner of eye is slightly red, sclera edema noted. Lacrilube ordered and placed in eye with some relief. BER documented in this encounter OR Notes Op [...] allograft. SURGEON(S) AND ROLE Cedric Sweeney M.D. SCHOOL BUS DRIVER/MECHANIC: Kimberlyn Alvarez APRN, D.N.P., C.N.P. I requested Kimberlyn Alvarez to assist [...] good condition. Needle and sponge counts correct. BER documented in this encounter Plan of Treatment Upcoming Encounters Date Type Specialty Care Team Description 02/02/2022 Immunization Family Medicine 02/12/2022 Office Visit Dermatology Lacy Dykes M.D. [address] [place], [place] [phone] (Lisha mccann) 02/22/2022 Office Visit Orthopedic Surgery Kimberlyn Alvarez, JOSE DANIEL, C.N.P., D.N.P. [address] [place], [place] [phone] (Lisha mccann) 03/12/2022 Diagnostic Otorhinolaryngology Blanka Carranza C.N.P. [address] [place] [address] Aleena Hassan Au.D. [address] [place] [phone] Scheduled Referrals Name Type Priority Associated Order Schedule Diagnoses Orthopedic Surgery Outpatient Referral Routine Pain Knee Right Expected: Post Op (clinic) - 8 with surgical (Approximate), service Expires: 05/28/2020 documented as of this encounter Procedures Procedure Name Priority Date/Time Associated Diagnosis Comme nts ARTHROSCOPY RECONSTRUCTION 05/28/2017 11:07 AM Pain Kn ee Right ANTERIOR CRUCIATE LIGAMENT STABBER KNEE - ALLOGRAFT documented in this encounter Visit Diagnoses Diagnosis Pain Knee Right - Primary Pain Knee Right Pain Knee Right documented in this encounter [...] lactated ringers New Bag 05/28/2017 10:22 AM STABBER 20 mL/hr, intravenous, Continuous, Starting on Fri05/28/17 at 0900, Pre-Op lidocaine-EPINEPHrine 1 %-1:100,000 injection Given 12:39 PM STABBER 10 mL (for_XYLOCAINE W/EPI) As needed, Starting on Fri05/28/17 at 1239, Intra-Op metoprolol tablet 12.5 mg (for_LOPRESSOR ) 12.5 [...] mg (for_ROXICODONE ) Given 05/28/2017 5:31 PM STABBER 5 mg 5 mg, oral, Every 4 [...] mL On-Q New Bag 05/28/2017 12:50 PM STABBER 5 mL/hr 5 mL/hr pain pump 6 mL/hr, nerve catheter, Continuous, Starting on Fri05/28/17 at 1215, Nerve Catheter Location: Adductor Canal, Device: On-Q Pump scopolamine base 1 mg Medication Applied 05/28/2017 9:56 AM 1 patch Behind Left over 3 days 1 patch STABBER Ear (for_TRANSDERM SCOP) 1 patch, transdermal, Administer [...] indication. white petrolatum-mineral oil ophthalmic Given 05/28/19 1:30 PM STABBER 0.25 inches ointment 0.25 inch (for_REFRESH P.M.) 0.25 inch, both eyes, 3 times daily PRN, dry eyes, Starting on Fri05/28/17 at 1315 documented in this encounter Active and Recently Administered Medications Times are shown in STABBER. Scheduled Medication Order 05/26/2017 05/27/2017 05/28/2017 ceFAZolin in dextrose (iso-osm) IVPB 2 g (for_ANCEF) (COMPLETED) 1122 (Given - Provider: Joy Sagastume, SUPERVISOR BLUEPRINTING AND PHOTOCOPY, CHIEF RELAY TESTER) 2 g, intravenous, at 100 mL/hr, Administ [...] pump 1250 (New Bag - Provider: Joy Sagastume, SUPERVISOR [employer]PRINTING [employer] PHOTOCOPY, CHIEF RELAY TESTER) 6 mL/hr, nerve catheter, Continuous, Sta rting [...] IR tablet 10 mg (for_ROXICODONE)(Linked Group 1) 173 (See Alternative - Provider: Aminah Butler R.N.) 10 mg, oral, Every 4 hours PRN, severe p ain or score 7-10 of 10, Starting on Fri05/28/17 at 1312, PACU & Post-Op, Second line therapy. If patient is greater than 7 after 2 hours, call service for new order. oxyCODONE IR tablet 5 mg (for_ROXICODONE)(Linked Group 1) 173 (Given - Provider: Aminah Butler R.N.) 5 [...] over 3 days 1 patch (for_TRANSDERM SCOP) 0963 (Medication Applied - Provider: Laura Pierson R.N.)1826 (Due: Medication Removed - Provider: Discharge Provider, [...] traMADol tablet 100 mg (for_ULTRAM)(Linked Group 2) 1726 (See Alternative - Provider: Aminah Butler R.N.) [...] traMADol tablet 50 mg (for_ULTRAM)(Linked Group 2) 1726 (Not Given - Provider: Aminah Butler R.N. [...]
--- OUTSIDE RECORDS SUMMARY | 2022-01-31 09:40 | XMS_ITS | Encounter Summary ---
:1955 Author Organization [facility] Address [address] [place] [address] Care Team Providers Name Role Phone Unavailable Primary Care Provider Unavailable Reason for Visit Physical Therapy (Routine) - Canceled Specialty Diagnoses / Procedures Referred By Contact Refer red To Contact Orthopedic Surgery Diagnoses Anterior Cruciate Ligament Reconstruction Status Post Cerdic Sweeney, [facility] Region Procedures PT Ongoing treatment Sudarshan [address] [place] [address] Referral ID Status Reason Start Date Expiration Date Visits V isits Requested Authorized [id number] Canceled 06/02/2017 04/06/2018 15 24 Encounter Details Date Type Department Care Team Description 07/01/2017 Clinical Support Department of Cedric Sweeney M.D. [address] [place] [address] Anterior Cruciate Rehabilitation Tushar Ware, P.TPhil [address] [place] [phone] Ligament Services in [facility] Status [place], [place] Post [address] [place] [phone] Social History Tobacco Use Types Packs/Day Years Used Date Smoking Tobacco: Unknown Smokeless Tobacco: Never Alcohol Habits Answer Date Recorded How often do you have a drink containing 4 or more times a w [place] 07/30/2021 alcohol? How many drinks containing alcohol [...] or relatives? How often do you attend jewish or Patient refused 2021 holiness services? 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 - 07/01/2017 8:30 AM CDT Physical Therapy Outpatient Treatment Note SUBJECTIVE Referring Provider: Cedric Sweeney M.D. Referring Diagnosis: Rehab Diagnosis: 1. Anterior Cruciate Ligament Reconstruction Status Post Onset Date: Payor: [employer] (PRN) [employer] / Plan: [employer] / Product Type: PPO / Total Visit Count: 5 Visit Count since last G-Codes: 5 Precautions/Restrictions: Patient is now 5 weeks status post ACL repair Pt comments: Patient states that she is doing well overall. She was on a business trip where she dida lot of walking. This did cause some increase in swelling and soreness. However, this is temporary. OBJECTIVE Pain: Pain Assessment Pain Score: 2 Vital Signs: Ortho Exam Patient ambulated into therapy today TREATMENT We continued with passive range of motion with knee flexion now to 118??. There is a very minimal extension lag of no more than 2??. We had patient work on straight leg raises with a lb. She tolerated this well. We had her work on hamstring curls with 12 lb. She then worked on the leg press machine for 3 sets of 10 at 40 lb. At this, we had patient work on wall squats. She tolerated this well. She worked on some light knee extension exercises with manual resistance. This started to cause some increased pain underneath the patella. We decided to hold on this today. Patient was then on the Sci Fit for 15 minutes at 4.5. She tolerated this well. Treatment today consisted of: 45 minutes of therapeutic exercise. Assessment Clinical Impression: Patient is doing well overall. Her mobility is progressing. We are become more aggressive with her strengthening as well. We did have her on the stair stepper for the 1st time today. She tolerated thiswell. Functional Goals and Timeframes: Plan Plan will be to continue. Tushar Ware P.T. Time Spent with Patient Functional G-code Worksheet documented in this encounter Plan of Treatment Upcoming Encounters Date Type Specialty Care Team Description 02/02/2022 Immunization Family Medicine 02/12/2022 Office Visit Dermatology Lacy Dykes M.D. [address] [place], [place] [phone] (Wo rk) 02/22/2022 Office Visit Orthopedic Surgery Kimberlyn Alvarez, JOSE DANIEL, C.N.P., D.N.P. [address] [place], [place] [phone] (Wo rk) 03/12/2022 Diagnostic Otorhinolaryngology Blanka Carranza, C.N.P. [address] [place], [place] [phone] Aleena Hassan Au.D. [address] [place] [phone] documented as of this encounter Visit Diagnoses Diagnosis Anterior Cruciate Ligament Reconstructio n Status Post documented in this encounter Additional Health Concerns Assessment Noted Time PHQ-9 Depression Total Score: 2 04/22/2015 11:24 AM CS T documented as of this encounter
--- OUTSIDE RECORDS SUMMARY | 2022-01-31 09:40 | XMS_ITS | Encounter Summary ---
:1955 Author Organization [facility] Address [address] [place] [address] Care Team Providers Name Role Phone Unavailable Primary Care Provider Unavailable Reason for Visit Auth/Cert Specialty Diagnoses / Procedures Referred By Contact Refer red To Contact Diagnoses Pain Knee Right Procedures TN ARTHSC AID ACL RPR TN ARTHSC KNE W MNSCECTOMY MED/LAT ARTHROSCOPY RECONSTRUCTION ANTERIOR CRUCIATE LIGAMENT KNEE - ALLOGRAFT, partial medial menisectomy Referral ID Status Reason Start Date Expiration Date Visits Requ ested Visits Authorized [id number] 1 1 Encounter Details Date Type Department Care Team Description 05/28/2017 Anesthesia Event [facility] MAIN OR Laura Ayala M.D. [address] [facility] [address] [place] [id number] [place] [phone] (Wo rk) Anesthesia Record Procedure Summary Procedure Name Responsible Anesthesia Start Anesthesia Stop Anesthesiologist Time Time ARTHROSCOPY Laura Ayala M.D. 05/28/17 1108 05/28/17 13 03 RECONSTRUCTION ANTERIOR CRUCIATE LIGAMENT KNEE - ALLOGRAFT, partial medial menisectomy (Right: Knee) Events Date Time Event Comment 05/28/2017 1005 1023 An Start Data 1051 an stop data 1107 In Room 1108 An Start Machine/Equipmen t Checked Infection Precautions Foll owed Procedure/Site Verified NPO Sta tus Verified Supine Standard ASA Mon itors Applied 1124 Turnover to Proceduralist 1147 An Tourn Inflated 255mmHg 1147 Proc Start 1251 An Tourn Deflated 64 minutes 1252 Turnover to ANE Staff 1257 an stop data 1300 Proc Fin 1300 Out of Room 1303 An End I completed my h andoff to the receiving staff during [facility] we 1. Identified the patient 2. Ident ified the responsible provider 3. Revi ewed the pertinent medical history 4. Discu ssed the surgical course 5. Reviewed intra-o p anesthesia management and issues during an esthesia 6. Set expectations for post-procedure period 7. Allowed opportun ity for questions and acknowledgement of understanding. Name Total dexamethasone 4 mg/mL injection 8 mg ketorolac 30 mg injection 30 mg ondansetron PF 4 mg/2 mL injection 4 mg ketamine 10 mg/mL injection 20 mg midazolam 1 mg/mL injection 8 mg fentaNYL 50 mcg/mL injection 100 mcg bupivacaine PF 0.5% injection 20 mL propofol 10 mg/mL infusion 495.9 mg ceFAZolin in dextrose (iso-osm) IVPB 2 g (for_ANCEF) 2 g lidocaine 2% (mg) injection 60 mg bupivacaine-dextrose PF 0.75%-8.25% injection 1.6 mL ropivacaine (PF) 0.2 % 550 mL On-Q pain pump 1.08 mL lactated ringers 800 mL Agents No agents on file. Blood No blood administrations on file. Lines, Drains, and Airways Type Details Placement Removal Peripheral IV Placement Date: 05/28/17904 by 05/28/17 1651 b y 05/28/17; Placement Laura Pierson Bjurquist, Diana J, Time: 904; Catheter R.N. R.N. Size: 20 G; Orientation: Left; Location: Hand; Site Prep: Chlorhexidine (Preferred); Technique: Anatomical landmarks; Insertion Attempts: 1; Removal Date: 05/28/17; Removal Time: 1650; Removal Reason: Per order (RETIRED) Incision 05/28/17; 1006; Knee; 05/28/17 1006 by 1418 by Right; mastisol; Rivas Riojas, R.N. [facility] linic-Backgrou ADAPTIC 3X3, STRP STRS nd, Sched uling [facility] NWVN 4X0.5, CAST Automat ed Batch Job PADDING WEBRIL 4IN, BNDG LINDA BAND NSTRL 11YDX6; 12/26/20 (Removed by background completion utility); 1418 (Removed by background completion utility) Peripheral Nerve 05/28/17; 1050 (created 05/28/17 1050 by 1200 by Catheter via procedure Joy Sagastume APRN, Harms, Tim J, R.N. documentation); SERGER 05/29/17; 1200 (nerve catheter removed, unsure of date or time.) documented in this encounter Social History Tobacco [...] or relatives? How often do you attend methodist or Patient refused 2021 jehovah's witness services? Do you belong to any clubs or Yes 07/30/2021 organizations such as methodist groups, unions, fraternal or athletic groups, or [...] Date Recorded Female 05/19/2017 11:19 AM [employer] documented as of this encounter OR Notes Anesthesia Postprocedure Evaluation - Laura Ayala M.D. - 05/28/2017 2:21 PM CST Patient: Priscilla Fitzpatrick Procedure Summary Date: 05/28/17 Room / Location: [address] 01 [address] / [facility] OR Anesthesia Start: 1108 Anesthesia Stop: 1303 Procedure: ARTHROSCOPY RECONSTRUCTION ANTERIOR CRUCIATE LIGAMENT KNEE - ALLOGRAFT, partial medial menisectomy (Right Knee) Diagnosis: Pain Knee Right (Pain Knee Right [M25.561]) Surgeon: Cedric Sweeney M.D. Responsible Provider: Anesthesia Type: regional ASA Status: 2 Anesthesia Type: regional Last vitals BP 118/67 (05/28/17 1315) Pulse (!) 53 (05/28/17 1330) Resp 16 (05/28/17 1303) SpO2 96 % (05/28/17 1330) Anesthesia Post Evaluation 05/28/2017 2:21 PM Patient Disposition: dismissal Cardiovascular status: hemodynamics (HR & BP) acceptable Respiratory status: patent airway with spontaneous effort Temperature: normothermic Oxygen requirements: room air Level of consciousness: awake Pain score: pain adequately controlled and/or at baseline Post Op nausea/vomiting: none Hydration status: euvolemic Anesthesia observations: eye injury (right eye dry-lacrilube ordered) Comments: Nerve block catheter intact. Brochure given [employer] Anesthesia Procedure Notes - Joy Sagastume, GROUND CREW SUPERVISOR, SERGER - 05/28/2017 11:42 AM [employer] Associated Order(s): ANESTHESIA REGIONAL BLOCK Regional Block Date/Time: 05/28/2017 11:15 AM Performed by: NUBIA SANDERSON Authorized by: JOY SAGASTUME Location: OR [place] protocol: All relevant documentation and testing were [...] infiltration Procedure details: Block type: primary anesthetic Neuraxial: spinal Positioning: sitting Approach: midline Level inserted: L4-L5 Injection technique: single injection Needle type: wesley Gauge: 25G Length: 13 CSF: yes Pain with needle advancement or injection of local anesthetic: no Post-procedure details: Procedure completed successfully: successful procedure Other complications: none [employer] Anesthesia Procedure Notes - Joy Sagastume APRN, CRNA - 05/28/2017 10:50 AM [employer] Associated Order(s): ANESTHESIA REGIONAL BLOCK Regional Block Date/Time: 05/28/2017 10:50 AM Performed by: JOY SAGASTUME Authorized by: JOY SAGASTUME Location: Pre Op / PACU Olivia protocol: All relevant documentation and testing were [...] method: local infiltration Procedure details: Block type: pain block Block type comment: Post-Op pain block at request of surgeon Positioning: supine Block technique: ultrasound guided Ultrasound image: image acquired and saved Adductor canal blockade were identified. Local anesthetic was injected under direct visualization and good circumferential spread was observed. No pain on injection or needle advancement. No complications noted patient tolerated procedure well. Injection technique: catheter Needle type: tuohy Gauge: 18G Test dose: no test dose given Incremental injection of local anesthetic with aspiration every:5cc Pain with needle advancement or injection of local anesthetic: no Post-procedure details: Procedure completed successfully: successful procedure Other complications: none [employer] Anesthesia Preprocedure Evaluation - Laura Ayala M.D. - 05/26/2017 7:38 AM CST Anesthesia Pre-Evaluation Review of Systems and Problem List PROBLEM LIST Relevant Problems (+) Hypertension NOS (+) Hypothyroidism OBJECTIVE PHYSICAL EXAMINATION Airway (HEENT) Mallampati: II TM Distance: <3 FB Neck ROM: Full Cardiovascular Rhythm: Regular Rate: Normal Cardiovascular Assessment: Normal Pulmonary Pulmonary Assessment: Clear Neurological Normal Dental Normal General / Constitutional Normal ASSESSMENT / PLAN ANESTHESIA PLAN ASA: 2 Anesthesia Plan: regional Scop patch Cont adductor canal block Patient seen and allergies reviewed; anesthesia plan and risks discussed directly with patient / legal guardian, or through an audiovisual equipment operator; patient evaluated and approved for anesthesia / sedation. The use of blood products not discussed [employer] documented in this encounter Plan of Treatment Upcoming Encounters Date Type Specialty Care Team Description 02/02/2022 Immunization Family Medicine 02/12/2022 Office Visit Dermatology Lacy Dyeks M.D. [address] [place], [place] [phone] (Wo rk) 02/22/2022 Office Visit Orthopedic Surgery Kimberlyn Alvarez, JOSE DANIEL, C.N.P., D.N.P. [address] [place], [place] [phone] (Wo rk) 03/12/2022 Diagnostic Otorhinolaryngology Blanka Carranza, C.N.P. [address] [place] [address] Aleena Hassan Au.D. [address] [place] [phone] documented as of this encounter Procedures Procedure Name Priority Date/Time Associated Comments Diagnosis ANESTHESIA REGIONAL Routine 05/28/2017 11:42 AM R esults for this BLOCK [employer] procedure are i n the results section. MC ANE NERVE BLOCK Routine 05/28/2017 10:50 AM Re sults for this WITH ULTRASOUND [employer] procedure ar e in the results section. LDA ANE LOWER Routine 05/28/2017 10:50 AM Results for this EXTREMITY PNC [employer] procedure are in the results section. TN US GUIDE PLC NDL Routine 05/28/2017 10:50 AM R esults for this [employer] procedure are i n the results section. TN INJ ANES FEM Routine 05/28/2017 10:50 AM Resul ts for this NERVE CONT [employer] procedure are i n the results section. documented in this encounter Results Regional Block (05/28/2017 11:42 AM [employer]) Narrative Joy Sagastume APRN, CRNA - 05/28/2017 1 1:42 AM [employer] Joy Sagastume APRN, CRNA ? 05/28/2017 11:45 AM Regional Block Date/Time: 05/28/2017 11:15 AM Performed by: NUBIA SANDERSON Authorized by: JOY SAGASTUME Location: OR [place] protocol: All relevant documentation and testing w [...] Procedure details: Block type: primary anesthetic ?? Neuraxial: spinal ?? Positioning: sitting ?? Approach: midline Level inserted: L4-L5 Injection technique: single injection Needle type: wesley Gauge: 25G Length: 13 CSF: yes ?? Pain with needle advancement or injectio n of local anesthetic: no ?? Post-procedure details: Procedure completed successfully: succes sful procedure Other complications: none Procedure Note Joy Sagastume APRN, CRNA - 05/28/2017 1 1:42 AM CST Regional Block Date/Time: 05/28/2017 11:15 AM Performed by: NUBIA SANDERSON Authorized by: JOY SAGASTUME Location: OR [place] protocol: All relevant documentation and testing w [...] infiltration Procedure details: Block type: primary anesthetic Neuraxial: spinal Positioning: sitting Approach: midline Level inserted: L4-L5 Injection technique: single injection Needle type: wesley Gauge: 25G Length: 13 CSF: yes Pain with needle advancement or injectio n of local anesthetic: no Post-procedure details: Procedure completed successfully: succes sful procedure Other complications: none Joy Sagastume APRN, CRNA PROCEDURE/MINOR SURGICAL ORD ERABLES TN INJ ANES FEM NERVE CONT, TN US GUIDE PLC NDL, LDA ANE LOWER EXTREMITY PNC, MC ANE NERVE BLOCK WITH ULTRASOUND (05/28/2017 10:50 AM [employer]) Joy Ramos, JOSE DANIEL, SERGER - 05/28/2017 1 0:50 AM [employer] Joy Sagastume APRN, CRNA ? 05/28/2017 10:51 AM Regional Block Date/Time: 05/28/2017 10:50 AM Performed by: JOY SAGASTUME Authorized by: JOY SAGASTUME Location: Pre Op / PACU [place] protocol: All relevant documentation and testing w [...] method: local infiltration Procedure details: Block type: pain block ?? Block type comment: Post-Op pain block a t request of surgeon Positioning: supine ?? Block technique: ultrasound guided ?? Ultrasound image: image acquired and hermes ed Adductor canal blockade were identified. Local anesthetic was injected under direct visualization and good circ umferential spread was observed. No pain on injection or needle advanceme nt. No complications noted patient tolerated procedure well. Injection technique: catheter Needle type: tuohy Gauge: 18G Test dose: no test dose given ?? Incremental injection of local anestheti c with aspiration every:5cc Pain with needle advancement or injectio n of local anesthetic: no ?? Post-procedure details: Procedure completed successfully: succes sful procedure Other complications: none Procedure Note Joy Sagastume APRN, SERGER - 05/28/2017 1 0:50 AM CST Regional Block Date/Time: 05/28/2017 10:50 AM Performed by: JOY SAGASTUME Authorized by: JOY SAGASTUME Location: Pre Op / PACU [place] protocol: All relevant documentation and testing w [...] method: local infiltration Procedure details: Block type: pain block Block type comment: Post-Op pain block a t request of surgeon Positioning: supine Block technique: ultrasound guided Ultrasound image: image acquired and hermes ed Adductor canal blockade were identified. Local anesthetic was injected under direct visualization and good circumferential spread was observed. No pain on injection or needle advancement. No complications noted patient tolerated procedure well. Injection technique: catheter Needle type: tuohy Gauge: 18G Test dose: no test dose given Incremental injection of local anestheti c with aspiration every:5cc Pain with needle advancement or injectio n of local anesthetic: no Post-procedure details: Procedure completed successfully: succes sful procedure Other complications: none Joy Sagastume APRN, DIANNE PROCEDURE/MINOR SURGICAL ORD ERABLES documented in this encounter Visit Diagnoses Not on filedocumented in this encounter Administered Medications Inactive Administered Medications - up to 3 most recent administrations Medication Order MAR Action Action Date Dose Rate Site bupivacaine PF 0.5 % (5 mg/mL) Given 05/28/2017 10:36 AM [employer] 20 mL injection (for_MARCAINE) As needed, Starting on Fri05/28/17 at 1036, Anesthesia Intra-op wwhhtgopizg-xeykkgfk-gciup (PF) 0.75 % (7.5 Given 05/09 11:18 AM [employer] 1.6 mL mg/mL) injection (for_MARCAINE SPINAL) As needed, Starting on Fri05/28/17 at 1118, Anesthesia Intra-op ceFAZolin in dextrose (iso-osm) IVPB 2 g Given 05/28/2017 11:22 AM [employer] 2 g (for_ANCEF) 2 g, intravenous, at 100 mL/hr, Administer over 30 Minutes, Once, On Fri05/28/17 at 0900, For 1 dose, Intra-Op, Preoperatively within 1 hour prior to surgical incision Duplex bag - activate before hanging. , Drug Monitoring Program: Pharmacist to adjust medication order based on comorbities and indication., Indications: Prophylaxis, surgical dexamethasone injection (for_DECADRON) Given 05/28/2017 11:30 AM [employer] 8 mg As needed, Starting on Fri05/28/17 at 1137, Anesthesia Intra-op fentaNYL injection (for_SUBLIMAZE) Given 05/28/2017 10:25 AM [employer] 50 mcg intravenous, As needed, severe pain or score 7-10 of 10, Starting on Fri05/28/17 at 1024, Anesthesia Intra-op Given 05/28/2017 10:24 AM [employer] 50 mcg ketamine injection (for_KETALAR) Given 05/28/2017 11:10 AM [employer] 20 mg As needed, Starting on Fri05/28/17 at 1110, Anesthesia Intra-op ketorolac injection (for_TORADOL) Given 05/28/2017 12:48 PM [employer] 30 mg As needed, moderate pain or score 4-6 of 10, Starting on Fri05/28/17 at 1248, Anesthesia Intra-op lactated ringers New Bag 05/28/2017 10:22 AM [employer] 20 mL/hr, intravenous, Continuous, Starting on Fri05/28/17 at 0900, Pre-Op lidocaine (PF) (cardiac) injection Given 05/28/2017 11:20 AM [employer] 60 mg As needed, Starting on Fri05/28/17 at 1120, Anesthesia Intra-op midazolam (PF) injection (for_VERSED) Given 05/28/2017 11:08 AM [employer] 2 mg intravenous, As needed, Starting on Fri05/28/17 at 1024, Anesthesia Intra-op Given 05/28/2017 10:25 AM [employer] 2 mg Given 05/28/2017 10:24 AM [employer] 4 mg ondansetron (PF) injection (for_ZOFRAN) Given 05/28/2017 12:47 PM [employer] 4 mg As needed, nausea, vomiting, Starting on Fri05/28/17 at 1247, Anesthesia Intra-op propofol infusion (for_DIPRIVAN) New Bag 05/28/2017 11:23 75 mcg/kg/min 34.2 mL/hr intravenous, Continuous Infusion: AM [employer] Per Instructions PRN, Starting on Fri05/28/17 at 1123, Anesthesia Intra-op ropivacaine (PF) 0.2 % 550 mL On-Q New Bag 05/28/2017 12:50 PM [employer] 5 mL/hr 5 mL/hr pain pump 6 mL/hr, nerve catheter, Continuous, Starting on Fri05/28/17 at 1215, Nerve Catheter Location: Adductor Canal, Device: On-Q Pump documented in this encounter Additional Health Concerns Assessment Noted Time PHQ-9 Depression Total Score: 2 04/22/2015 11:24 AM CS T documented as of this encounter
--- OUTSIDE RECORDS SUMMARY | 2022-01-31 09:40 | XMS_ITS | Encounter Summary ---
:1955 Author Organization [facility] Address [address] [place] [address] Care Team Providers Name Role Phone Unavailable Primary Care Provider Unavailable Reason for Visit Physical Therapy (Routine) - Canceled Specialty Diagnoses / Procedures Referred By Contact Refer red To Contact Orthopedic Surgery Diagnoses Anterior Cruciate Ligament Reconstruction Status Post Cedric Sweeney, [facility] Region Procedures PT Ongoing treatment Sudarshan [address] [place] [address] Referral ID Status Reason Start Date Expiration Date Visits V isits Requested Authorized [id number] Canceled 06/02/2017 04/06/2018 15 24 Encounter Details Date Type Department Care Team Description 06/19/2017 Clinical Support Department of Cedric Sweeney M.D. [address] [place] [phone] Anterior Cruciate Rehabilitation Tushar Ware, P.TPhil [address] [place] [phone] Ligament Services in [facility] Status [place], [place] Post [address] [place] [phone] Social History Tobacco Use Types Packs/Day Years Used Date Smoking Tobacco: Former Smokeless Tobacco: Never Alcohol Habits Answer Date Recorded How often do you have a drink containing 4 or more times a w [place] 07/30/2021 alcohol? How many drinks containing alcohol [...] you attend congregation or Patient refused 2021 catholic services? 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 - 06/19/2017 10:30 AM CDT Physical Therapy Outpatient Treatment Note Referring Provider: Cedric Sweeney M.D. Medical Diagnosis: 1. Anterior Cruciate Ligament Reconstruction Status Post - PT Ongoing treatment Payor: Payor: [employer] [facility] / Plan: Shared Spectrum [employer]BS / Product Type: PPO / Total [...] Tachycardia Supraventricular (HCC) SUBJECTIVE Priscilla comes in without complaints today. She is doing well overall with her exercises at home. Sheis not walking with a cane or any assistive device at this time. OBJECTIVE We continued today with strengthening. We had patient work on straight leg raises with 7 lb weights.She worked on short arc quads with 5 lb weights. We had her work on hamstring curls with 7 lb weights. She then worked on the leg press machine at 40 lb for 3 sets of 10. At this, we had her work on proprioceptive exercises trying to maintain single leg stance. This was difficult for her to do. Lastly, she is on the Sci Fit for 15 minutes at level 5. Measures - Tools Measures - Tools Treatment Provided Today: 30 minutes of therapeutic exercise. Home Exercise Program: ASSESSMENT Patient is progressing steadily overall. Her ambulation is doing well. Strength is slowly improving.Mobility continues to improve with flexion to approximately 110??. Therapy Goals PLAN We will continue. Tushar Ware P.T. Time Spent with Patient Functional G-code Worksheet documented in this encounter Plan of Treatment Upcoming Encounters Date Type Specialty Care Team Description 02/02/2022 Immunization Family Medicine 02/12/2022 Office Visit Dermatology Lacy Dykes M.D. [address] [place], [place] [phone] (Wo rk) 02/22/2022 Office Visit Orthopedic Surgery Kimberlyn Alvarez APRN, C.N.P., D.N.P. [address] [place], [place] [phone] (Wo rk) 03/12/2022 Diagnostic Otorhinolaryngology Blanka Carranza, C.N.P. [address] [place] [address] Aleena Hassan Au.D. [address] [place] [phone] documented as of this encounter Visit Diagnoses Diagnosis Anterior Cruciate Ligament Reconstructio n Status Post documented in this encounter Additional Health Concerns Assessment Noted Time PHQ-9 Depression Total Score: 2 04/22/2015 11:24 AM CS T documented as of this encounter
--- OUTSIDE RECORDS SUMMARY | 2022-01-31 09:40 | XMS_ITS | Encounter Summary ---
:1955 Author Organization [facility] Address [address] [place] [address] Care Team Providers Name Role Phone Unavailable Primary Care Provider Unavailable Reason for Visit Physical Therapy (Routine) - Canceled Specialty Diagnoses / Procedures Referred By Contact Refer red To Contact Orthopedic Surgery Diagnoses Anterior Cruciate Ligament Reconstruction Status Post Cedric Sweeney, [facility] Region Procedures PT Ongoing treatment Sudarshan [address] [place] [address] Referral ID Status Reason Start Date Expiration Date Visits V isits Requested Authorized [id number] Canceled 06/02/2017 04/06/2018 15 24 Encounter Details Date Type Department Care Team Description 06/23/2017 Clinical Support Department of Cedric Sweeney M.D. [address] [place] [address] Anterior Cruciate Rehabilitation Tushar Ware, P.TPhil [address] [place] [phone] Ligament Services in [facility] Status [place], [place] Post [address] [place] [phone] Social History Tobacco Use Types Packs/Day Years [...] or relatives? How often do you attend mandaeism or Patient refused 2021 taoist services? 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 - 06/23/2017 8:00 AM CDT Physical Therapy Outpatient Treatment Note SUBJECTIVE Referring Provider: Cedric Sweeney M.D. Referring Diagnosis: Rehab Diagnosis: 1. Anterior Cruciate Ligament Reconstruction Status Post Onset Date: Payor: [employer] / Plan: [employer]app BCBS / Product Type: PPO / Total Visit Count: 4 Visit Count since last G-Codes: 4 Precautions/Restrictions: ACL precautions Pt comments: Patient was at a wedding last Friday. She is up on her feet much of the day. She has noted that her knee and her lower leg did swell some high with this. It is quite uncomfortable after this. However, the swelling has now since gone down. OBJECTIVE Pain: Pain Assessment Pain Score: 2 Vital Signs: Ortho Exam patient presents with minimal swelling at this time. We did check her overall mobility. She presents with knee flexion to 118??. There is still an extension lag of no more than 2?? at this time. TREATMENT Treatment today consisted of: Manual therapy for passive range of motion followed by strengthening consisting of straight leg raises with 8 lb. She performed hamstring curls with 10 lb. She also perform the extension exercises with 8 lb. She had him worked on leg press exercises on machine. This was with 40 lb. She was then instructed with wall slides. Lastly she is on the stationary bike for approximately 15 minutes. She tolerated this all well. Home Exercise Program/Education: We did review her home exercises today. This consisted of knee extension with Thera-Band. She is also instructed with straight leg raises with Thera-Band. We reviewed balance activities that she can do as well as wall slides for squatting. Assessment Clinical Impression: Patient continues to progress steadily. Her motion is improving and her strength is slowly progressing. Functional Goals and Timeframes: Plan Patient will be added on business for the next week. We will follow up in 1 weeks. At time. Tushar Ware P.T. Time Spent with Patient 30 minutes of therapeutic exercise Functional G-code Worksheet documented in this encounter Plan of Treatment Upcoming Encounters Date Type Specialty Care Team Description 02/02/2022 Immunization Family Medicine 02/12/2022 Office Visit Dermatology Lacy Dykes M.D. [address] [place], [place] [phone] (Lisha mccann) 02/22/2022 Office Visit Orthopedic Surgery Kimberlyn Alvarez APRN, C.N.P., D.N.P. [address] [place], [place] [phone] (Lisha mccann) 03/12/2022 Diagnostic Otorhinolaryngology Blanka Carranza C.N.P. [address] [place] [address] Aleena Hassan Au.D. [address] [place] [address] documented as of this encounter Visit Diagnoses Diagnosis Anterior Cruciate Ligament Reconstructio n Status Post documented in this encounter Additional Health Concerns Assessment Noted Time PHQ-9 Depression Total Score: 2 04/22/2015 11:24 AM CS T documented as of this encounter
--- OUTSIDE RECORDS SUMMARY | 2022-01-31 09:40 | XMS_ITS | Encounter Summary ---
:1955 Author Organization [facility] Address [address] [place] [address] Care Team Providers Name Role Phone Unavailable Primary Care Provider Unavailable Reason for Visit Reason Comments Communication Encounter Details Date Type Department Care Team Description 05/22/2017 Clinical Communication Department of Cedric Sweeney ommunication Orthopedic Surgery Sudarshan Augustine in [place], [address] [place], [place] [address] [facility] [address] [place], [place] [phone] (Work) [phone] Social History Tobacco Use Types Packs/Day Years Used Date Smoking Tobacco: Former Alcohol Habits Answer Date Recorded How often do you have a drink containing 4 or more times a w [place] 07/30/2021 alcohol? How many drinks containing alcohol [...] you attend orthodox or Patient refused 2021 yazidi services? 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 Sweeney. ICULTURAL AGENT documented in this encounter Plan of Treatment Upcoming Encounters Date Type Specialty Care Team Description 02/02/2022 Immunization Family Medicine 02/12/2022 Office Visit Dermatology Lacy Dykes M.D. [address] [place], [place] [phone] (Wo rk) 02/22/2022 Office Visit Orthopedic Surgery Kimberlyn Alvarez APRN, C.N.P., D.N.P. [address] [place], [place] [phone] (Wo rk) 03/12/2022 Diagnostic Otorhinolaryngology Blanka Carranza, C.N.P. [address] [place] [address] Aleena Hassan Au.D. [address] [place] [address] documented as of this encounter Visit Diagnoses Not on filedocumented in this encounter Additional Health Concerns Assessment Noted Time PHQ-9 Depression Total Score: 2 04/22/2015 11:24 AM CS T documented as of this encounter
--- OUTSIDE RECORDS SUMMARY | 2022-01-31 09:40 | XMS_ITS | Encounter Summary ---
:1955 Author Organization [facility] Address [address] [place] [address] Care Team Providers Name Role Phone Unavailable Primary Care Provider Unavailable Reason for Visit Outpatient (Routine) - Closed Specialty Diagnoses / Procedures Referred By Contact Refer red To Contact Diagnoses Pain Knee Right Cedric Sweeney M.D. [address] [phone] Referral ID Status Reason Start Date Expiration Date Visits Requ ested Visits Authorized [id number] Closed 05/22/2017 11/18/2017 1 1 Encounter Details Date Type Department Care Team Description 05/22/2017 Telemedicine Department of General Cedric Sweeney Pre anesthetic Medical Exam (Primary Dx); Surgery in [place] Marcos M.D. Pain Knee Right [address] [phone] Social History Tobacco Use Types Packs/Day Years [...] you attend voodoo or Patient refused 2021 holiness services? Do you belong to any clubs or Yes 07/30/2021 organizations such as voodoo groups, unions, fraUniversity of [place] or athletic groups, or school groups? 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 - 05/22/2017 11:00 AM CST Surgery Nurse Clinical Project Coordinator Skin Alert Assessment: Complete this section only if the patient is greater than or equal to 18 y/o BMI <19 or >40: No Documented risk factors that indicate higher risk for pressure ulcer? No Do you have impaired sensation? No Is patient chair-bound or unable to reposition themselves? No Anesthesia Risk Assessment: Do you have an implanted cardiac device? No Do you have difficulties lying flat? Yes Comment: lower back pain Do you have any holiness or other objection to having a blood transfusion? No Teaching: Preoperative education was done with (x) patient (_) parent _. It was confirmed the patient/family member had received the following preoperative education sheets: Preparing for Your Surgery ([id number]),???Surgical Site Infections ([id number]), Speak Up: Antibiotics ([id number]), ???Smoke Free, Advice for patients and visitors?? ([id number]), ???Managing Your Pain?? ([id number]) with the ???[employer]?? pamphlet ([id number]), ???Appointments Required Before Your Surgery?? ([id number]), and ???Financial Information for the Surgical Patient?? ([id number]). These were reviewed indetail. Total Joint Class scheduled: (x) N/A Date:_ Knee Manipulation-CPM set-up: (x) N/A (_) Yes Comment: _ If OT apt needed - setup one hour after clinic post-op: (x) N/A (_) Yes Back brace fitted: (x) N/A (_) Yes (_)Total Joint Surgery: Total Joint Class (good for one year). (_) Gave patient Hibiclens packet andreviewed Reducing Your Risk of Surgical Infection ([id number]). Patient filled out PHQ-9 Questionnaire. (_)Preop PT appt (total shoulders only). Patient filled out TOTAL JOINT ARTHROPLASTY DISCHARGE PLANNING FORM ([facility]: Forms 08/02/2013 / -108) as well as PHQ-9 Questionnaire. (_) Gave patient Hibiclens packet and reviewed Reducing Your Risk of Surgical Infection ([id number]). Additional Pamphlets also reviewed: (x) Managing Your Pain After Surgery ([id number]). (_)Parental Presence in the Operating Room ([facility]:Order Sets/Surgery/Home Instructions/TonsillectomyTeaching Checklist/PE Tubes Teaching Sheet 10/06/11) (_) Shoulder Replacement Surgery: Anatomic Prosthesis ([id number]) and reviewed teaching points for total shoulders instructions. (_) Rotator Cuff Repair Rehabilitation Pre-Op Education (no mc#) (_) Pre-op Teaching for Same Day Surgery-Procedure Room with Local Anesthesia (no mc#) Patient is ready to learn, no apparent learning barriers were identified. Reviewed diagnosis and treatment plan; patient verbalized understanding through teach back. All questions were answered. Patient has contact information and understands the need to call with any questions or concerns. Post op appointments: 1st po with surgeon or physician orthotics prosthetics assistant: (_) made (x)TBD (_)PO OT appt made (Hand surgery if requested) AL HUSBANDRY WORKER documented in this encounter Plan of Treatment Upcoming Encounters Date Type Specialty Care Team Description 02/02/2022 Immunization Family Medicine 02/12/2022 Office Visit Dermatology Lacy Dykes M.D. [address] [place], [place] [phone] (Wo rk) 02/22/2022 Office Visit Orthopedic Surgery Kimberlyn Alvarez APRN, C.N.P., D.N.P. [address] [place], [place] [phone] (Wo rk) 03/12/2022 Diagnostic Otorhinolaryngology Blanka Carranza, C.N.P. [address] [place], [place] [address] Aleena Hassan Au.D. [address] [place] [address] documented as of this encounter Visit Diagnoses Diagnosis Preanesthetic Medical Exam - Primary Pain Knee Right documented in this encounter Additional Health Concerns Assessment Noted Time PHQ-9 Depression Total Score: 2 04/22/2015 11:24 AM SAUL T documented as of this encounter
--- OUTSIDE RECORDS SUMMARY | 2022-01-31 09:40 | XMS_ITS | Encounter Summary ---
:1955 Author Organization [facility] Address [address] [place] [address] Care Team Providers Name Role Phone Unavailable Primary Care Provider Unavailable Reason for Referral MRI/CAT/PET Scan (Routine) - Closed Specialty Diagnoses / Procedures Referred By Contact Refer red To Contact Radiology Diagnoses Pain Knee Right Emilie Anne M.D. [facility] Procedures MR Knee Right without IV Contrast NC MRI LWR EXT JOINT WO CNTRST HC MRI LWR EXT JOINT WO CNTRST NC MRI LWR EXT JOINT WO CNTRST [address] [place] [phone] Referral ID Status Reason Start Date Expiration Date Visits Requ ested Visits Authorized [id number] Closed 07/15/2017 01/11/2018 1 1 CTOR OF ACCOUNTS RECEIVABLE Encounter Details Date Type Department Care Team Description 04/14/2017 Orders Only Department of Emilie Anne Pain Knee Right Orthopedic Surgery in [facility] (Primary Dx) [place], [place] [address] [place] [address] [phone] Social History Tobacco Use Types Packs/Day Years Used Date Smoking Tobacco: Former Alcohol Habits Answer Date Recorded How often do you have a drink containing 4 or more times a w [place] 07/30/2021 alcohol? How many drinks containing alcohol [...] or relatives? How often do you attend episcopal or Patient refused 2021 scientology services? Do you belong to any clubs or Yes 07/30/2021 organizations such as episcopal groups, unions, fraternal or athletic groups, or [...] or slept in a fpc (including now)? 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 [address] [place], [place] [phone] (Wo rk) 02/22/2022 Office Visit Orthopedic Surgery Kimberlyn Alvarez APRN, C.N.P., D.N.P. [address] [place], [place] [phone] (Wo rk) 03/12/2022 Diagnostic Otorhinolaryngology Blanka Carranza, C.N.P. [address] [place] [address] Aleena Hassan Au.D. [address] [facility] [place] [phone] documented as of this encounter Results MR Knee Right without IV Contrast (05/14/2017 4:26 PM DIRECTOR OF ACCOUNTS RECEIVABLE) Anatomical Region Laterality Modality Lower Extremity, Knee Right Magnetic Resonance Specimen (Source) Anatomical Collection Method Collection Time Re ceived Time Location / / Volume Laterality 05/14/2017 4:31 PM DIRECTOR OF ACCOUNTS RECEIVABLE Impressions 05/14/2017 4:44 PM DIRECTOR OF ACCOUNTS RECEIVABLE IMPRESSION: 1. ??Full-thickness, essentially complet e tear of the anterior cruciate ligament. 2. ??Complex tear of the medial meniscal body and posterior horn with extrusion. 3. ??Nondisplaced subcortical fracture o f the posterior aspect of the lateral tibial plateau. Tibial plateau contusion s posteriorly. 4. ??Tricompartmental chondromalacia, in cluding grade 4 patellofemoral chondromalacia. Narrative 05/14/2017 4:44 PM DIRECTOR OF ACCOUNTS RECEIVABLE EXAM: MR KNEE RIGHT WITHOUT IV CONTRAST [...]
--- OUTSIDE RECORDS SUMMARY | 2022-01-31 09:41 | XMS_ITS | Encounter Summary ---
:1955 Author Organization [facility] Address [address] [place] [address] Care Team Providers Name Role Phone Unavailable Primary Care Provider Unavailable Encounter Details Date Type Department Care Team Description 07/07/2014 Hospital Encounter HX [facility] Juwan White M.D. [address] [place] [address] (Wo rk) Social History Tobacco Use Types Packs/Day Years Used Date Smoking Tobacco: Never Assessed Alcohol Habits Answer Date Recorded How often do you have a drink containing 4 or more times a w [place] 07/30/2021 alcohol? How many drinks containing alcohol [...] you attend yazidism or Patient refused 2021 restoration services? Do you belong to any clubs [...] place to sleep or slept in a assisted (including now)? 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 ORAL) MULTIVITAMIN ORAL Take by mouth daily. 0 05/02/19 15 documented as of this encounter Miscellaneous Notes Miscellaneous - Keiry Menendez, C.N.A. - 09/19/2014 2:44 PM CDT *General Message Document Contains Addenda Addendum by THOMAS GAXIOLA MD on 21 October 2014 09:58:46 CDT From: THOMAS GAXIOLA MD To: PAUL Gaxiola Nurse; LILIYA BURNETT; Sent: 10/21/2014 09:58:46 CDT Subject: RE: *General Message Note dictated 10/21/2014 stating no relief from stockings and rationale for stab phlebectomy given normal incompetency US. Juwan Addendum by KEIRY MENENDEZ on 10 October 2014 10:40:21 CDT Talked to patient and put questionaire on Dr. Gaxiola's desk. Addendum by THOMAS GAXIOLA MD on 06 October 2014 09:20:39 CDT From: THOMAS GAXIOLA MD To: OW Fromdell Nurse; LILIYA BURNETT; Sent: 10/06/2014 09:20:39 CDT Subject: RE: *General Message Nh francisca, Teri - I need her vein sheet to complete her dictation. I don't know where to find this. Liliya - her veins function normally - there is no reflux. Based on this, she doesn't need laser, but rather stab phlebectomy. Juwan Addendum by KEIRY MENENDEZ on 04 October 2014 12:19:54 CDT From: KEIRY MENENDEZ (OW Froman Nurse) To: THOMAS GAXIOLA MD; Sent: 10/04/2014 12:19:54 CDT Subject: FW: *General Message Please complete your dictation for 06-07-14. Thanks Addendum by LILIYA BURNETT on 03 October 2014 09:53:53 CDT From: LILIYA BURNETT To: OW Fromdell Nurse; Sent: 10/03/2014 09:53:53 CDT Subject: RE: *General Message Please complete your notes on 06/17/2014. Insurance also need the vein reflux, which vein needed for stab phlebectomy. Thanks! From: KEIRY MENENDEZ (OW Froman Nurse) To: LILIYA BURNETT; Sent: 09/19/2014 14:44:04 CDT Subject: *General Message Preauth needed for fanta stab avulsion - pain - burning - compression stockings since 06-17-14. Source: [facility] POWERCHART Document Id: [id number] Electronically signed by Conversion, [facility] Gas Line Installer Supervisor [id number] at 09/01/2016 3:18 PM CDT Miscellaneous - Keiry Menendez, C.N.A. - 07/12/2014 5:33 PM CDT Reminder Msg Document Contains Addenda Addendum by KEIRY MENENDEZ on 19 September 2014 14:44:13 CDT preauth entered From: KEIRY MENENDEZ (OW Fromdell Nurse) To: PAUL Gaxiola Nurse; Sent: 07/12/2014 17:33:39 CDT Show up: 09/17/2014 17:33:00 CDT Subject: Reminder Msg Due Date/Time: 09/17/2014 17:33:00 CDT Please Remember to: enter preauth PATIENT: ( ) Call Patient ( ) Ask Patient to ( ) ( ) Call Relative ( ) Schedule Patient ( ) ( ) Call for Regulator Operator ( ) Follow up on Results ( ) Other: PROVIDER: ( ) Call Physician ( ) Call Pharmacist ( ) Call Lab ( ) Other: Special Instructions: Comments: Source: [facility] POWERCHART Document Id: [id number] Electronically signed by Jennifer [facility] Gas Line Installer Supervisor [id number] at 09/01/2016 3:18 PM CDT Miscellaneous - Thomas Gaxiola M.D. - 07/08/2014 7:30 AM CDT Results Notification Document Contains Addenda Addendum by KEIRY MENENDEZ on 12 July 2014 17:33:46 CDT Too soon for preauth. Stockings just started on 06-17-14. Liliya made aware. Will preauth after 3 months of stockings. Reminder entered. Addendum by GEOFFREY CORTEZ CMA on 08 July 2014 10:44:54 CDT From: GEOFFREY CORTEZ CMA (PAUL Gaxiola Nurse) To: LILIYA BURNETT; Cc: THOMAS GAXIOLA MD; Sent: 07/08/2014 10:44:54 CDT Show up: 07/08/2014 10:44:00 CDT Subject: RE: Results Notification Addendum by GEOFFREY CORTEZ CMA on 08 July 2014 10:44:22 CDT Pt. notified and is wanting to go forward with stab phlebectomy as well as injection(s) of spider veins. Forwarded to Liliya Burnett for approval. From: THOMAS GAXIOLA MD To: PAUL Gaxiola Nurse; Sent: 07/08/2014 07:30:07 CDT ! Show up: 07/08/2014 07:30:07 CDT Subject: Results Notification Actions: Notify patient of results Reminder Comments: Please inform Priscilla that her US shows normal function of the veins. No laser needed. I recommend stab phlebectomy to remove her varicose veins. Please prior auth for this. Thank you. Results: Date Result Type Result Name 07/07/2014 15:40 Radiology US Incompetency Bilat Source: [facility] POWERCHART Document Id: [id number] Electronically signed by Conversion, [facility] Gas Line Installer Supervisor [id number] at 09/01/2016 3:18 PM CDT documented in this encounter Plan of Treatment Upcoming Encounters Date Type Specialty Care Team Description 02/02/2022 Immunization Family Medicine 02/12/2022 Office Visit Dermatology Lacy Dykes M.D. [address] [place], [place] [phone] (Wo rk) 02/22/2022 Office Visit Orthopedic Surgery Kimberlyn Alvarez APRN, C.N.P., D.N.P. [address] [place], [place] [phone] (Wo rk) 03/12/2022 Diagnostic Otorhinolaryngology Blanak Carranza, C.N.P. [address] [place] [address] Aleena Hassan Au.D. [address] [place] [address] documented as of this encounter Procedures Procedure Name Priority Date/Time Associated Comments Diagnosis US LOWER EXTREMITY Routine 07/07/2014 2:00 PM Res ults for this VENOUS INSUFFICIENCY CDT procedu re are in BILATERAL the results section. documented in this encounter Results US Lower Extremity Venous Insufficiency Bilateral (07/07/2014 2:00 PM CDT) Anatomical Region Laterality Modality Lower Extremity Bilateral Ultrasound Specimen (Source) Anatomical Collection Method Collection Time Re ceived Time Location / / Volume Laterality 07/07/2014 2:00 PM CDT Impressions 07/07/2014 3:37 PM CDT ??Preserved bilateral lower from the venous competency Narrative 07/07/2014 3:37 PM CDT EXAM: ??US Incompetency Bilat AGE: ??58 years old. GENDER: ??Female. INDICATION: ??bilateral VV with pain COMPARISON: ??None. FINDINGS: During dynamic sonographic evaluation of the bilateral lower extremity veins, ice resurfacing machine operators demonstrate preserved venous competency of the bilateral lower extremity veins. Bilateral lower the veins are negative f or deep venous thrombosis. Procedure Note Stephen Sheppard M.D. / Provider, Lenora marion M.D. - 08/14/2016 EXAM: US Incompetency Bilat AGE: [age] years old. GENDER: Female. INDICATION: bilateral VV with pain COMPARISON: None. FINDINGS: During dynamic sonographic evaluation of the bilateral lower extremity veins, ice resurfacing machine operators demonstrate preserved venous competency of the bilateral lower extremity veins. Bilateral lower the veins are negative f or deep venous thrombosis. IMPRESSION: Preserved bilateral lower fr om the venous competency Moraima Meléndez R.V.T., R.D.M.S. IMHomer US PROCEDURES documented in this encounter Visit Diagnoses Not on filedocumented in this encounter Additional Health Concerns Assessment Noted Time PHQ-9 Depression Total Score: 1 04/13/2013 11:36 AM CS T documented as of this encounter
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
--- OUTSIDE RECORDS SUMMARY | 2022-01-31 09:41 | XMS_ITS | Encounter Summary ---
:1955 Author Organization [facility] Address [address] [place] [address] Care Team Providers Name Role Phone Unavailable Primary Care Provider Unavailable Encounter Details Date Type Department Care Team Description 05/02/2014 Hospital Encounter HX [facility] Kimberlyn Mayer, JOSE DANIEL, C.N.P., D. N.P. [address] [place] [address] (Wo rk) Social History Tobacco Use Types Packs/Day Years Used Date Smoking Tobacco: Never Assessed Alcohol Habits Answer Date Recorded How often do you have a drink containing 4 or more times a w [place] 07/30/2021 alcohol? How many drinks containing alcohol [...] you attend sabianism or Patient refused 2021 temple services? Do [...] Recorded Female 05/19/2017 11:19 AM INFORMATION TECHNOLOGY AUDITOR documented as of this encounter Last Filed Vital Signs Vital Sign Reading Time Taken Comments Blood Pressure 128/76 05/02/2014 8:45 AM INFORMATION TECHNOLOGY AUDITOR Pulse 70 05/02/2014 8:45 AM INFORMATION TECHNOLOGY AUDITOR Temperature - - Respiratory Rate 16 05/02/2014 8:45 AM INFORMATION TECHNOLOGY AUDITOR Oxygen Saturation - - Inhaled Oxygen Concentration - - Weight 69.1 kg (152 lb 5.4 oz) 05/02/2014 8:45 AM INFORMATION TECHNOLOGY AUDITOR Height 161 cm (5' 3.39) 05/02/2014 8:45 AM INFORMATION TECHNOLOGY AUDITOR Body Mass Index 26.66 05/02/2014 8:45 AM INFORMATION TECHNOLOGY AUDITOR documented in this encounter Medications at Time of Discharge Medication Sig Dispensed Refills Start Date End Date B.ANI/L.ACI/L.BERNICE/L.PLAN/L Take 1 capsule by 0 .TASH (PROBIOTIC FORMULA mouth daily. ORAL) MULTIVITAMIN ORAL Take by mouth daily. 0 05/02/19 15 documented as of this encounter H&P Notes Kimberlyn Mayer, JOSE DANIEL, C.N.P. - 05/02/2014 8:38 AM CST [id number] CHIEF COMPLAINT/REASON FOR VISIT Routine general medical exam. HISTORY OF PRESENT ILLNESS Priscilla is a 58-year-old female comes in today for her routine general medical exam. She has a personal history of hypertension and hypothyroidism. She is in need of her the zoster vaccine, screening for osteopenia, she does have a history of having osteopenia, lipid screening. Her other concern is she does have varicose veins of her lower extremities that do cause her discomfort. She would like it to be referred to see someone for that. She also has notes that she has discomfort with intercourse, this is not new for her. She has tried various lubrications without any improvement in her symptoms. She would like to consider alternative options such as would consider hormone replacement therapy as necessary. She is currently on Celexa, feels that medication works very well for her and does not wantto make any changes with that. MEDICATIONS Celexa 20 mg by mouth daily. Diovan 40 mg 2 tablets by mouth daily. EpiPen as needed. Famvir 500 mg every 8 hours on an as-needed basis. Liothyronine 5 mcg daily. Testosterone as directed. Multivitamin daily. Probiotic daily. Progesterone 200 mg 2 times daily as directed. Synthroid 137 mcg by mouth daily. Zofran as needed. Ambien 5 mg as needed. NEW RECONCILED MEDICATION: Estrogen vaginal cream 3 times weekly. ALLERGIES Wasps or hornets. Synvisc. DTaP. Pollen. SYSTEMS REVIEW Patient states that she does have some vaginal itching, some dryness identified. She denies any chest pain, shortness of breath. No dizziness. No lightheadedness. No changes in her bowel or bladder habits. No current infectious symptoms. She denies any new skin lesions that are of concern. Denies feeling any symptoms of depression. PHQ-9 score is 1. PAST MEDICAL/SURGICAL HISTORY PAST MEDICAL HISTORY: Dysthymia. Diarrhea. Family History of heart disease. Hypothyroidism following radio iodine therapy. 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 History of a thyroid nodule. MCL injury. Stress. History of SVT. PAST SURGICAL HISTORY: She has had: Blepharoplasty performed. Colonoscopies. Foot surgery. Bladder surgery. Breast surgery. Tonsillectomy. SOCIAL HISTORY Patient is a past tobacco user, quit at age 32. She drinks alcohol on a social basis and caffeine jewel daily basis. She does have a regular exercise program and goes to the gym on a regular basis. COUNSELING Age-appropriate counseling and risk factor reduction was provided. FAMILY HISTORY Noteworthy for: Mother with osteoporosis. Father with prostate cancer and heart disease. VITAL SIGNS Her blood pressure 128/76 with a pulse of 70. Respiratory rate of 16. Height 161 cm. Weight 69.1 kg with a BMI of 26.6. PHYSICAL EXAMINATION GENERAL: Patient appears non-distressed. SKIN: Warm and dry. HEENT: Unremarkable. VESSELS: Carotids with normal upstrokes. THYROID: Assessed and negative. LYMPH: With no cervical, supraclavicular, axillary, or femoral lymphadenopathy. HEART: Regular rate and rhythm. She has normal S1, S2. No murmurs or gallops. LUNGS: Clear to auscultation. BREASTS: Negative. ABDOMEN: Soft. No organomegaly. PELVIC: Her vaginal kruse are slightly hypopigmented but no significant abnormality noted. Exterior genitalia normal appearing. Speculum was inserted without difficulty and patient tolerated this well.No signs of infection. Pelvic exam is negative. EXTREMITIES: Without any edema. IMPRESSION/REPORT/PLAN 1. Routine general medical exam. Patient does need a lipid screening, actually she is not due for that at this time but she would like to have that on a regular schedule and her work does require it. We will go ahead and repeat that today as she is fasting. She needs a zoster vaccine. Also, a bone density scan for osteopenia. 2. Hypothyroidism. Following radio iodine therapy patient will needed a TSH today. 3. Hypertension. Blood pressure is excellent. We will make no changes but she will need a metabolic panel today also. 4. Atrophic vaginitis. We talked about different treatment options as well as well as lubrications. Patient is interested in conjugated estrogen cream. We did discuss the risks and benefits of this. Wewill have her use it up to 3 times weekly and if she finds no resolution in her symptoms she may require a RAILWAY SHUNTER referral. 5. Varicose veins. Patient would like a referral for varicose veins. I will go ahead and have her set up in [place] for this. They can go ahead and order ultrasounds as necessary. 6. Hormone replacement. Patient is on hormones that actually she was initially placed on by Urology.She does not want to be off of those. She would like to continue them with same dose. I did go aheadand order some hormone studies and we will go ahead and refill those. Ready to learn. No apparent learning barriers were identified. Learning preferences include listening. Explained diagnosis and treatment plan. Patient/Child/Caregiver expressed understanding of the content. Brooks Contreras/felipe Electronically Signed By: KIMBERLYN MAYER RN, RUG CUTTER HELPER On: 05/14/2014 01:12 PM Source: [facility] MHSDOLBEYNONRADSYS Document Id: [id number] RMATION TECHNOLOGY AUDITOR documented in this encounter Miscellaneous Notes Miscellaneous - Kimberlyn Mayer APRN, C.N.P. - 05/10/2014 4:52 PM CST Normal Results Letter 10 May 2014 PRISCILLA HAMPTON [id number] [facility] [id number] Dear PRISCILLA HAMPTON, I am pleased to report that your results from the following diagnostic pap test is normal. Scant cells were found from the transformation zone however, given your risk factors, this does not need to berepeat for 2-3 years. Please follow up with us as we discussed during your visit or sooner if you have any concerns. If you have questions or concerns, please do not hesitate to call our office. Result Name Current Result Spec Desc-Martinez See Comment 05/02/2014 ThPrep Scrn Accn-[place] [id number] 05/02/2014 ThPrep Scrn Cyto-[place] See Comment 05/02/2014 ThPrep Scrn Fnl-[place] See Comment 05/02/2014 Sincerely, KIMBERLYN MAYER [address] [place] [id number] Electronic Signature Electronically Signed By: KIMBERLYN MAYER RN, RUG CUTTER HELPER On: 10 May 2014 This document has images extracted. Source: [facility] POWERCHART Document Id: [id number] Electronically signed by Jennifer [facility] [employer] [id number] at 09/01/2016 1:46 PM CDT Miscellaneous - Kimberlyn Mayer APRN, C.N.P. - 05/06/2014 4:13 PM CST Normal Results Letter 06 May 2014 PRISCILLA HAMPTON [id number] [facility] [id number] Dear PRISCILLA HAMPTON, I am pleased to report that your results from the following diagnostic test(s) are normal, with exception that your testosterone level is high. You should decrease your use of the cream to every other day. Please follow up with us as we discussed during your visit or sooner if you have any concerns. If you have questions or concerns, please do not hesitate to call our office. Result Name Current Result Previous Result Normal Range Sodium Lvl (mM/L) 137.4 05/02/2014 135.8 07/16/2013 135.0 - 145.0 Potassium Lvl (mmol/L) 4.4 05/02/2014 4.3 07/16/2013 3.6 - 4.8 Chloride (mmol/L) 99 05/02/2014 98 07/16/2013 98 - 107 CO2 (mmol/L) 27.8 05/02/2014 (H) 29.3 07/16/2013 23.0 - 29.0 AGAP (mmol/L) 15 05/02/2014 13 07/16/2013 10 - 20 Glucose Fasting (mg/dL) 83 05/02/2014 70 - 99 Creatinine (mg/dL) 0.85 05/02/2014 0.80 07/16/2013 0.60 - 1.30 EGFR (MDRD) (mL/min/1.73m2) >60 05/02/2014 >60 07/16/2013 >=60 - EGFR (MDRD) (mL/min/1.73m2) >60 05/02/2014 >60 07/16/2013 >=60 - BUN (mg/dL) 12 05/02/2014 11 07/16/2013 7 - 18 Calcium Lvl (mg/dL) 9.6 05/02/2014 9.4 07/16/2013 8.6 - 10.0 Cholesterol (mg/dL) (H) 235 05/02/2014 (H) 222 12/13/2013 0 - 200 Trig (mg/dL) 31 05/02/2014 109 12/13/2013 9 - 150 HDL (mg/dL) (H) 106 05/02/2014 (H) 81 12/13/2013 35 - 60 LDL Calculated (mg/dL) 123 05/02/2014 118 12/13/2013 100 - 129 Chol/HDL Ratio 2 05/02/2014 3 12/13/2013 T4 Total-Martinez (mcg/dL) 7.0 05/02/2014 8.1 04/13/2013 4.5 - 11.7 - TSH (mIU/L) 1.51 05/02/2014 0.87 06/22/2013 0 0.27 - 4.20 T3 Free-Martinez (pg/mL) 2.3 05/02/2014 3.0 04/13/2013 2.0 - 3.5 - Testoster Free-Martinez (ng/dL) (H) 6.3 05/02/2014 0.3-1.9 - Testoster Tot-Martinez (ng/dL) (H) 315 05/02/2014 8-60 - Estrone-Martinez (pg/mL) 31 05/02/2014 Estradiol Enh-Martinez (pg/mL) 20 05/02/2014 Progesterone Lvl-Martinez (ng/mL) 8.6 05/02/2014 25-Hydroxy D-Martinez (ng/mL) 33 05/02/2014 25-Hydroxy D2-Martinez (ng/mL) <4.0 05/02/2014 25-Hydroxy D3-Martinez (ng/mL) 33 05/02/2014 Sincerely, KIMBERLYN MAYER [id number] [address] Electronic Signature Electronically Signed By: KIMBERLYN MAYER RN, RUG CUTTER HELPER On: 06 May 2014 This document has images extracted. Source: [facility] POWERCHART Document Id: [id number] Miscellaneous - Kimberlyn Mayer APRN, C.N.P. - 05/03/2014 9:46 AM CST referral Document Contains Addenda Addendum by KIMBERLYN MAYER RN, RUG CUTTER HELPER on 03 May 2014 13:49:02 INFORMATION TECHNOLOGY AUDITOR From: KIMBERLYN MAYER RN, RUG CUTTER HELPER To: SYBIL MAXWELL; Sent: 05/03/2014 13:49:02 INFORMATION TECHNOLOGY AUDITOR Subject: RE: referral yes- he is fabulous Addendum by SYBIL MAXWELL on 03 May 2014 10:15:41 INFORMATION TECHNOLOGY AUDITOR From: SYBIL MAXWELL To: KIMBERLYN MAYER RN, RUG CUTTER HELPER; Sent: 05/03/2014 10:15:41 INFORMATION TECHNOLOGY AUDITOR Subject: RE: referral Patient has an appt. set up for May 12 at 9:[address] Casas. He is a General Surgeon who does Varicose Veins. [facility] does not have a Vascular Dept. I have given patient Dr. Casas's schedulers number [phone] in the event she needs to cancel or reschedule. From: KIMBERLYN MAYER RN, RUG CUTTER HELPER To: SYBIL MAXWELL; Sent: 05/03/2014 09:46:54 INFORMATION TECHNOLOGY AUDITOR Subject: referral Referral Request Date: 05/03/14 Provider: Kim Where Referral is to be made: [facility] Type of Referral/Department: Vascular Consult Specific Clinical Question: eval for Varicose veins Pertinent History: painful legs- has use compression Best Phone Number: _-_-_ Appointment Days to Avoid: Best Time of day: Date/Time of appointment made: Sign off: Source: [facility] Document Id: [id number] Miscellaneous - Kimberlyn Mayer, JOSE DANIEL, C.N.P. - 05/02/2014 10:03 AM CST Ambulatory Patient Summary [address] [place], [place] [phone] Visit Information Name: PRISCILLA HAMPTON [facility] Number: [phone] Current Date: 05/02/2014 10:03:45 Physicians Attending Provider: KIMBERLYN MAYER RN, RUG CUTTER HELPER Primary Care Provider: KIMBERLYN MAYER RN, RUG CUTTER HELPER PRISCILLA HAMPTON has been given the following list of follow-up instructions, medication list, and patient education materials: Follow-up Instructions Your Medications Here is a list of your medications. It is important to take your medications as directed. Use a pillbox or chart to help remind you to take your medications. Please let your doctor or nurse know if you have problems taking your medications. Medication/Strength How to Take Indications/Special Instructions/Comments/Notes for Patient Medication Changes/Routing bifidobacterium-lactobacillus (Probiotic Formula oral capsule) 1 cap, Oral, once a day citalopram (Celexa 20 mg oral tablet) 1 Tablet(s), Oral, once a day Routed to [address] [address] conjugated estrogens topical (conjugated estrogens 0.625 mg/g vaginal cream with applicator) See Instructions 1 gm Vaginal 3 times weekly PM New Routed to [address] [address] EPINEPHrine (EpiPen Auto-Injector 0.3 mg injectable kit) See Instructions Twin injector epipen This is a CHANGE Routed to [address] [address] famciclovir (Famvir 500 mg oral tablet) 1 Tablet(s), Oral, every 8 hours at onset of cold sore x 1day. famciclovir (Famvir 500 mg oral tablet) 1 Tablet(s), Oral, every 8 hours x 7 day(s) Routed to [address] [address] levothyroxine (Synthroid 137 mcg (0.137 mg) oral tablet) 1 Tablet(s), Oral, once a day NYDIA- No generic please. labs needed for further refills, local this fill only liothyronine (liothyronine 5 mcg oral tablet) 1 Tablet(s), Oral, once a day Misc Prescription (Misc Prescription) See Instructions Testost-versa 4% apply 1/4 teaspoon daily This is a CHANGE Routed to [address] [address] multivitamin (multivitamin) Oral, once a day ondansetron (Zofran ODT 4 mg oral tablet, disintegrating) 1 Tablet(s), Oral, every 8 hours as neededfor Nausea progesterone (progesterone 200 mg oral capsule) 1 cap, Oral, two times a day Routed to [address] [address] valsartan (Diovan 40 mg oral tablet) 2 Tablet(s), Oral, once a day This is a CHANGE Routed to [address] [address] zolpidem (zolpidem 10 mg oral tablet) 0.5 Tablet(s), Oral, once a day (at bedtime) as needed for Sleep Scofields Stop Taking the Following Medications: calcium-vitamin D (Calcium 600+D) fluticasone nasal (Flonase 50 mcg/inh nasal spray) Medication list as of 05-02-14 10:03 Attention: If you have any medications at home that are not on this list, DO NOT take them until youcontact your provider for clarification. Give a copy of your medication list to your primary care provider. Update your medication list any time medications or doses are changed and carry your medication list at all times in case of emergency. Electronically Signed By: KIMBERLYN MAYER RN, RUG CUTTER HELPER Signed On:02-MAY-2014 10:03:31 Your Allergies & Intolerances Substance Reaction Symptoms Category Comments Synvisc Drug Pollen Drug POLLEN EXTRACT Daptacel (DTaP) Drug diphtheria/pertussis,acel/tetanus/polio Drug DTAP-IPV VACCINE Drug Other Environmental Environment SEASONAL ALLERGIES Your Problem List Problem Status Onset Comments Thyroid nodule Active 06/14/10 history SVT [Supraventricular tachycardia] Active 06/14/10 resolved Hypothyroidism following radioiodine therapy Active 12/27/10 onset date is unknown Family history - ischemic heart disease Active 12/27/10 onset date is unknown Family History of Osteoporosis Active 06/11/11 onset unknown Insomnia Active 08/01/10 Date of onset unknown Plantar heel pain Active 06/11/11 onset unknown Stress Active 06/11/11 onset unknown Dysthymic Disorder Active 04/07/2010 Osteopenia Active 07/22/11 date unknown Colon, polyp, benign Active 07/22/11 date unknown Campylobacter diarrhea Active 04/01/13 onset unknown Unspecified Hypothyroidism Active 12/04/2004 07/03/13 Unspecified hypothyroidism Sprain of Medial Collateral Ligament of Knee Active 01/28/2005 07/03/13 SPRAIN MEDIAL COLLAT LIG of the thumb Your Upcoming Appointments Date Time Location Provider No Appointments found Attention: Contact your local Clinic if further appointment detail needed. Your Goals/Additional instructions: Source: [facility] POWERCHART Document Id: [id number] RMATION TECHNOLOGY AUDITOR Miscellaneous - Kimberlyn Mayer APRN, C.N.P. - 05/02/2014 10:03 AM CST Ambulatory Discharge Medication List [address] [phone] Visit Information Name: PRISCILLA HAMPTON [facility] Number: [phone] Visit Date: 05/02/2014 10:03:43 Attending Provider: KIMBERLYN MAYER RN, RUG CUTTER HELPER Primary Care Provider: KIMBERLYN MAYER RN, RUG CUTTER HELPER PRISCILLA HAMPTON COSMO has been given the following list of medications: Your Medications It is important to take your medications as directed. Use a pill box or chart to help remind you to take your medications. Please let your doctor or nurse know if you have problems taking your medications. Medication/Strength How to Take Indications/Special Instructions/Comments/Notes for Patient Medication Changes/Routing bifidobacterium-lactobacillus (Probiotic Formula oral capsule) 1 cap, Oral, once a day citalopram (Celexa 20 mg oral tablet) 1 Tablet(s), Oral, once a day Routed to [facility] [address] [place] [address] conjugated estrogens topical (conjugated estrogens 0.625 mg/g vaginal cream with applicator) See Instructions 1 gm Vaginal 3 times weekly PM New Routed to [facility] [address] [place] [address] EPINEPHrine (EpiPen Auto-Injector 0.3 mg injectable kit) See Instructions Twin injector epipen This is a CHANGE [facility] [address] [place] [address] famciclovir (Famvir 500 mg oral tablet) 1 Tablet(s), Oral, every 8 hours at onset of cold sore x 1day. famciclovir (Famvir 500 mg oral tablet) 1 Tablet(s), Oral, every 8 hours x 7 day(s) Routed to [facility] [address] [place] [address] levothyroxine (Synthroid 137 mcg (0.137 mg) oral tablet) 1 Tablet(s), Oral, once a day NYDIA- No generic please. labs needed for further refills, local this fill only liothyronine (liothyronine 5 mcg oral tablet) 1 Tablet(s), Oral, once a day Misc Prescription (Misc Prescription) See Instructions Testost-versa 4% apply 1/4 teaspoon daily This is a CHANGE Routed to [address] [address] multivitamin (multivitamin) Oral, once a day ondansetron (Zofran ODT 4 mg oral tablet, disintegrating) 1 Tablet(s), Oral, every 8 hours as neededfor Nausea progesterone (progesterone 200 mg oral capsule) 1 cap, Oral, two times a day [facility] [address] [place] [address] valsartan (Diovan 40 mg oral tablet) 2 Tablet(s), Oral, once a day This is a CHANGE [facility] [address] [place] [address] zolpidem (zolpidem 10 mg oral tablet) 0.5 Tablet(s), Oral, once a day (at bedtime) as needed for Sleep Scofields Stop Taking the Following Medications: calcium-vitamin D (Calcium 600+D) fluticasone nasal (Flonase 50 mcg/inh nasal spray) Medication list as of 05-02-14 10:03 Attention: If you have any medications at home that are not on this list, DO NOT take them until youcontact your provider for clarification. Give a copy of your medication list to your primary care provider. Update your medication list any time medications or doses are changed and carry your medication list at all times in case of emergency. Electronically Signed By: KIMBERLYN MAYER RN, CNP Signed On:02-MAY-2014 10:03:31 Additional Information: Source: [facility] Document Id: [id number] RMATION TECHNOLOGY AUDITOR Miscellaneous - Kimberlyn Mayer APRN, C.N.P. - 05/02/2014 9:23 AM CST Quality Measures Quality Measures Entered On: 05/02/2014 9:24 INFORMATION TECHNOLOGY AUDITOR Performed On: 05/02/2014 9:23 INFORMATION TECHNOLOGY AUDITOR by KIMBERLYN MAYER RN, CNP Depression PHQ-9 Score : 1 KIMBERLYN MAYER RN, CNP - 05/02/2014 9:23 INFORMATION TECHNOLOGY AUDITOR Source: [facility] Document Id: [id number] INFORMATION TECHNOLOGY AUDITOR!3 RMATION TECHNOLOGY AUDITOR Miscellaneous - Wm Louis L.P.N. - 05/02/2014 8:56 AM CST Health Assessment Health Assessment Entered On: 05/02/2014 8:57 INFORMATION TECHNOLOGY AUDITOR Performed On: 05/02/2014 8:56 INFORMATION TECHNOLOGY AUDITOR by WM LOUIS LPN Health Assessment Complete Health Assessment Complete or Modified : Annual Health Assessment Annual Health Assessment Completed : Yes WM LOUIS LPN - 05/02/2014 8:56 INFORMATION TECHNOLOGY AUDITOR Nutrition Nutrition Risk Factors by History Adult : None WM LOUIS LPN - 05/02/2014 8:56 INFORMATION TECHNOLOGY AUDITOR Functional Current Daily Living Assistance : None WM LOUIS LPN - 05/02/2014 8:56 INFORMATION TECHNOLOGY AUDITOR Dependent Habits Tobacco Use/Currently Using : No Exposure to Tobacco Smoke : Care provider denies smoking in home Smoking Status : Former smoker WM LOUIS LPN - 05/02/2014 8:56 INFORMATION TECHNOLOGY AUDITOR Tobacco Use Grid Type : Cigarettes Last Use : age 32 WM LOUIS LPN - 05/02/2014 8:56 INFORMATION TECHNOLOGY AUDITOR Caffeine Use Grid Caffeine Use : Current Type : Coffee Frequency : Daily WM LOUIS LPN - 05/02/2014 8:56 INFORMATION TECHNOLOGY AUDITOR Recreational Drug Use Grid Drug Use : None WM LOUIS LPN - 05/02/2014 8:56 INFORMATION TECHNOLOGY AUDITOR Psychosocial Domestic Abuse Concerns : None Baptism Preference : No qualifying data available. 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 Entered On: 05/02/2014 8:50 INFORMATION TECHNOLOGY AUDITOR Performed On: 05/02/2014 8:45 INFORMATION TECHNOLOGY AUDITOR by WM LOUIS LPN Intake Chief Complaint : Yearly physical Temperature Core : 36.6 DegC(Converted to: 97.9 DegF) Peripheral Pulse Rate : 70 /min Respiratory Rate : 16 /min Heart Rhythm : Regular Systolic Blood Pressure : 128 mmHg Diastolic Blood Pressure : 76 mmHg NIBP Mean : 93 mmHg BP Location : Left upper extremity Blood Pressure Cuff Size : Large Height : 161 cm(Converted to: 5 ft 3 inch(es), 63 inch(es)) Actual Weight : 69.1 kg(Converted to: 152 lb 5 oz) Weight Source : Standing scale Dosing Weight Clinic : 69.1 kg Clinic BSA : 1.76 Body Mass Index : 26.66 kg/m2 WM LOUIS LPN - 05/02/2014 8:45 INFORMATION TECHNOLOGY AUDITOR General Info Information Given By : Patient Preferred Communication Mode : Verbal Languages : [place] Is Patient Female and 13-50 no hysterectomy : No WM LOUIS RADHA - 05/02/2014 8:45 INFORMATION TECHNOLOGY AUDITOR Subjective Pain Symptoms : No WM LOUIS RADHA - 05/02/2014 8:45 INFORMATION TECHNOLOGY AUDITOR Dependent Habits Tobacco Use/Currently Using : No Exposure to Tobacco Smoke : Care provider denies smoking in home Smoking Status : Former smoker WM LOUIS Dagmar GARCIA - 05/02/2014 8:45 INFORMATION TECHNOLOGY AUDITOR Tobacco Use Grid Type : Cigarettes Last Use : age 32 WM LOUIS RADHA - 05/02/2014 8:45 INFORMATION TECHNOLOGY AUDITOR Caffeine Use Grid Caffeine Use : Current Type : Coffee Frequency : Daily WM LOUIS Dagmar GARCIA - 05/02/2014 8:45 INFORMATION TECHNOLOGY AUDITOR Recreational Drug Use Grid Drug Use : None WM LOUIS Dagmar GARCIA 05/02/2014 8:45 INFORMATION TECHNOLOGY AUDITOR ID Screen Drug Resistant Organism : No Travel Within Last 21 Days : WM Pace RADHA 05/02/2014 8:45 INFORMATION TECHNOLOGY AUDITOR Source: ViaCube Document Id: [id number] INFORMATION TECHNOLOGY AUDITOR!44 RMATION TECHNOLOGY AUDITOR documented in this encounter Plan of Treatment Upcoming Encounters Date Type Specialty Care Team Description 02/02/2022 Immunization Family Medicine 02/12/2022 Office Visit Dermatology Lacy Dykes M.D. [address] [place], [place] [phone] (Wo rk) 02/22/2022 Office Visit Orthopedic Surgery Kimberlyn Mayer APRN, C.N.P., D.N.P. [address] [place], [place] [phone] (Wo rk) 03/12/2022 Diagnostic Otorhinolaryngology Blanka Carranza, C.N.P. [address] [place] [address] Aleena Hassan Au.D. BERRY Townsend [phone] documented as of this encounter Procedures Procedure Name Priority Date/Time Associated Diagnosis Comme nts LIPID PANEL, S Routine 05/02/2014 10:12 AM Result s for this INFORMATION TECHNOLOGY AUDITOR procedure are i n the results section. ESTROGENS, ESTRONE Routine 05/02/2014 10:12 AM Re sults for this (E1) AND ESTRADIOL INFORMATION TECHNOLOGY AUDITOR procedure are in (E2), FRACTIONATED, the resu lts S section. 25-HYDROXYVITAMIN Routine 05/02/2014 10:12 AM Res ults for this D2 AND D3, S INFORMATION TECHNOLOGY AUDITOR procedure are i n the results section. PROGESTERONE, S Routine 05/02/2014 10:12 AM Resul ts for this INFORMATION TECHNOLOGY AUDITOR procedure are i n the results section. TESTOSTERONE, TOT Routine 05/02/2014 10:12 AM Res ults for this AND FR, S INFORMATION TECHNOLOGY AUDITOR procedure are i n the results section. T3 Routine 05/02/2014 10:12 AM Results for this (TRIIODOTHYRONINE), INFORMATION TECHNOLOGY AUDITOR procedur e are in FREE, S the results section. THYROID-STIMULATING Routine 05/02/2014 10:12 AM R esults for this HORMONE-SENSITIVE INFORMATION TECHNOLOGY AUDITOR procedure are in (S-TSH) the results section. T4 (THYROXINE), TOT Routine 05/02/2014 10:12 AM R esults for this ONLY, S INFORMATION TECHNOLOGY AUDITOR procedure are i n the results section. BASIC METABOLIC Routine 05/02/2014 10:12 AM Resul ts for this PANEL, S/P INFORMATION TECHNOLOGY AUDITOR procedure are i n the results section. THINPREP SCREEN HPV Routine 05/02/2014 9:00 AM Re sults for this REFLEX INFORMATION TECHNOLOGY AUDITOR procedure are i n the results section. documented in this encounter Results Estrogens, Estrone (E1) and Estradiol (E2), Fractionated (05/02/2014 10:12 AM INFORMATION TECHNOLOGY AUDITOR) P athologist Signature Estrone, S 31 PGML POWERCHART Comment: REFERENCE VALUE------ Premenopausal :17-200 Postmenopausal : 7-40 Estradiol, Mass Spectrometry, S 20 PGML POWERCHART Comment: REFERENCE VALUE------ Premenopausal: 15-350 (E2 levels vary wi zoila through the menstrual cycle.) Postmenopausal: <10 Test Performed by: [facility] [place] [address] Ironer Machine: Fawn Sanchez Specimen (Source) Anatomical Collection Method Collection Time Re ceived Time Location / / Volume Laterality Blood 05/02/2014 10:12 AM INFORMATION TECHNOLOGY AUDITOR Darrell Rios APRNN.Stacie, D.N.P. LAB BLOOD NON ADD-O N Performing Organization Address [facility] Phon e Number POWERCHART Progesterone Level (05/02/2014 10:12 AM INFORMATION TECHNOLOGY AUDITOR) P athologist Signature Progesterone, S 8.6 NGML POWERCHART Comment: REFERENCE VALUE------ Premenopausal 0.20-1.50 Follicular phase 0.80-3.00 Ovulation phase 1.70-27.00 Luteal phase Postmenopausal <0.15-0.80 Test Performed by: [facility] [place] [address] Ironer Machine: Fawn Sanchez Specimen (Source) Anatomical Collection Method Collection Time Re ceived Time Location / / Volume Laterality Blood 05/02/2014 10:12 AM INFORMATION TECHNOLOGY AUDITOR Kp Rios APRN.N.P., D.N.P. LAB BLOOD ADD-ON Performing Organization Address [facility] Phon e Number POWERCHART (ABNORMAL) Testosterone, Total and Free (05/02/2014 10:12 AM INFORMATION TECHNOLOGY AUDITOR) P athologist Signature Testosterone, 315 (H) 8 - 60 POWERCHART Total NGDL Comment: ADDITIONAL INFORMATIO N Testing performed by Liquid Chromatograp hy-Tandem Mass Spectrometry (LC-MS/MS). Test Performed by: [facility] [place] [address] Ironer Machine: Fawn Sanchez % Free Testosterone 6.3 (H) 0.3 - 1.9 NGDL POWER CHART Comment: ADDITIONAL INFORMATIO N Testing performed by [facility] Dialysi s. Test Performed by: [facility] [place] [address] Ironer Machine: Fawn Sanchez Specimen (Source) Anatomical Collection Method Collection Time Re ceived Time Location / / Volume Laterality Blood 05/02/2014 10:12 AM INFORMATION TECHNOLOGY AUDITOR Kimberlyn Mayer APRN, Kp.N.PPhil, D.N.P. LAB BLOOD NON ADD-O N Performing Organization Address City/[facility] Code Phon e Number POWERCHART T4 (Thyroxine), Total Only (05/02/2014 10:12 AM INFORMATION TECHNOLOGY AUDITOR) P athologist Signature T4 (Thyroxine), 7.0 4.5 - 11.7 POWERCHART Total Only, S MCGDL Comment: Test Performed by: [facility] [place] [address] Ironer Machine: Fawn Sanchez Specimen (Source) Anatomical Collection Method Collection Time Re ceived Time Location / / Volume Laterality Blood 05/02/2014 10:12 AM INFORMATION TECHNOLOGY AUDITOR Kimberlyn Mayer APRN, Kp.N.P., D.N.P. LAB BLOOD ADD-ON Performing Organization Address City/[facility] Code Phon e Number POWERCHART T3 (Triiodothyronine), Free (05/02/2014 10:12 AM INFORMATION TECHNOLOGY AUDITOR) P athologist Signature T3 2.3 2.0 - 3.5 POWERCHART (Triiodothyroni PGML ne), Free, S Comment: Test Performed by: [place] [address] Ironer Machine: Fawn Sanchez Specimen (Source) Anatomical Collection Method Collection Time Re ceived Time Location / / Volume Laterality Blood 05/02/2014 10:12 AM INFORMATION TECHNOLOGY AUDITOR Kp Rios APRN.N.P., D.N.P. LAB BLOOD ADD-ON Performing Organization Address City/State/[facility] Code Phon e Number POWERCHART Thyroid-Stimulating Hormone-Sensitive (s-TSH) (05/02/2014 10:12 AM INFORMATION TECHNOLOGY AUDITOR) P athologist Signature TSH 1.51 0.27 - 4.20 POWERCHART (Thyrotropin) MIUL Specimen (Source) Anatomical Collection Method Collection Time Re ceived Time Location / / Volume Laterality Blood 05/02/2014 10:12 AM INFORMATION TECHNOLOGY AUDITOR Kimberlyn Mayer APRN C.N.P., D.N.P. LAB BLOOD ADD-ON Performing Organization Address City/[facility] Code Phon e Number POWERCHART (ABNORMAL) Lipid Panel (05/02/2014 10:12 AM INFORMATION TECHNOLOGY AUDITOR) P athologist Signature Cholesterol, 235 (H) 0 - 200 POWERCHART Total MGDL Comment: <200 mg/dL Desirable 200-239 mg/dL Borderline High >239 mg/dL High HX HDL 106 (H) 35 - 60 MGDL POWERCHART Comment: > 60 mg/dL Desirable 40 ? 60 mg/dL Low Risk <40 mg/dL Undesirable Triglycerides 31 9 - 150 MGDL POWERCHART Comment: <150 mg/dL Desirable 150-199 mg/dL Borderline High 200-499 mg/dL High > 499 Very High Calculated LDL 123 100 - 129 MGDL POWERCHART Total Cholesterol/HDL Ratio 2 PO WERCHART Specimen (Source) Anatomical Collection Method Collection Time Re ceived Time Location / / Volume Laterality Blood 05/02/2014 10:12 AM INFORMATION TECHNOLOGY AUDITOR Kimberlyn Mayer APRN C.N.P., D.N.P. LAB BLOOD ADD-ON Performing Organization Address City/State/ZIP Code Phon e Number POWERCHART BMP (Basic Metabolic Panel) (05/02/2014 10:12 AM INFORMATION TECHNOLOGY AUDITOR) athologist Signature Anion Gap 15 10 - 20 POWERCHART MMOLL BUN (Blood Urea 12 7 - 18 POWERCHART Nitrogen), S MGDL Chloride, S 99 98 - 107 POWERCHART MMOLL CO2 Total 27.8 23.0 - POWERCHART 29.0 MMOLL Creatinine 0.85 0.60 - POWERCHART 1.30 MGDL Glucose, 83 70 - 99 POWERCHART Fasting, S MGDL Calcium, Total, 9.6 8.6 - 10.0 POWERCHART S MGDL Sodium, S 137.4 135.0 - POWERCHART 145.0 MML Potassium, S 4.4 3.6 - 4.8 POWERCHART MMOLL HXeGFR (MDRD) >60 >=60 POWERCHART [id number] eGFR >60 >=60 POWERCHART Black/ [id number] Citizen [place] Specimen (Source) Anatomical Collection Method Collection Time Re ceived Time Location / / Volume Laterality Blood 05/02/2014 10:12 AM INFORMATION TECHNOLOGY AUDITOR Kp Rios APRN.N.P., D.N.P. LAB BLOOD ADD-ON Performing Organization Address City/State/ZIP Code Phon e Number POWERCHART 25-Hydroxyvitamin D2 and D3 (05/02/2014 10:12 AM INFORMATION TECHNOLOGY AUDITOR) athologist Signature HX25 HYDROXY D2 <4.0 NGML POWERCHART 25-Hydroxy D3 33 NGML POWERCHART Vitamin D, S 33 NGML POWERCHART Comment: REFERENCE VALUE------ 25-HYDROXY D TOTAL (D2+D3) Optimum level s in the healthy population are 20-50, patients with bone disease may benefit from higher levels within this r syeda. Test Performed by: [address] [address] Ironer Machine: Fawn Sanchez Specimen (Source) Anatomical Collection Method Collection Time Re ceived Time Location / / Volume Laterality Blood 05/02/2014 10:12 AM INFORMATION TECHNOLOGY AUDITOR Kp Rios APRN.N.P., D.N.P. LAB BLOOD ADD-ON Performing Organization Address City/State/ZIP Code Phon e Number POWERCHART Pathology ThinPrep Screen HPV Reflex (05/02/2014 9:00 AM INFORMATION TECHNOLOGY AUDITOR) [facility] Method Time Signature Interpretation [id number] POWERCHART [facility] See Comment POWERCHART [facility] Comment: A. ??ThinPrep Pap Test Screen (Cervical/ Endocervical HPV Reflex): Satisfactory for evaluation. Inadequate endocervical/transformation z one component Negative for intraepithelial lesion or m alignancy. High Risk HPV testing results are NEGATI VE. See specific genotype results below. HPV with Genotyping, PCR, ThinPrep: HPV High Risk Type 16, PCR: ??NEGATIVE HPV High Risk Type 18, PCR: ??NEGATIVE HPV other High Risk types, PCR: ??NEGATI VE Other High Risk HPV types include: ??31, 33, 35, 39, 45, 51, 52, 56, 58, 59, 66, and 68. [facility] [place] See Comment [place] Comment: Report electronically signed by Pritesh Lewis, SCT(ASCP) 05/10/2014 07:55 Interpreted by: MILDRED Rowe (ASCP) Spec [facility] See Comment POWERCHART Comment: A. ??ThinPrep Pap Test Screen (Cervical/ Endocervical HPV Reflex): Received cloudy specimen in ThinPrep via l. Test Performed by: [place] [address] Ironer Machine: Fawn Sanchez Specimen (Source) Anatomical Collection Method Collection Time Re ceived Time Location / / Volume Laterality Cervix/Endocervix 05/02/2014 9:00 AM INFORMATION TECHNOLOGY AUDITOR Kp Rios APRN.N.P., D.N.P. LAB PAP PATHDX [place] Performing Organization Address City/State/ZIP Code Phon e Number POWERCHART documented in this encounter Visit Diagnoses Not on filedocumented in this encounter Additional Health Concerns Assessment Noted Time PHQ-9 Depression Total Score: 1 04/13/2013 11:36 AM CS T documented as of this encounter
--- OUTSIDE RECORDS SUMMARY | 2022-01-31 09:41 | XMS_ITS | Encounter Summary ---
:1955 Author Organization [facility] Address [address] [place] [address] Care Team Providers Name Role Phone Unavailable Primary Care Provider Unavailable Encounter Details Date Type Department Care Team Description 04/18/2015 Hospital Encounter HX [facility] Moreno Melvin M.D. [address] [place], [place] [address] (Wo rk) Social History Tobacco Use Types [...] or relatives? How often do you attend lutheran or Patient refused 2021 rastafarian services? 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 ACCOUNT MANAGER documented as of this encounter Last Filed Vital Signs Vital Sign Reading Time Taken Comments Blood Pressure 142/77 04/18/2015 10:59 AM LOGISTICS ACCOUNT MANAGER Pulse 55 04/18/2015 10:59 AM LOGISTICS ACCOUNT MANAGER Temperature - - Respiratory Rate 16 04/18/2015 10:46 AM LOGISTICS ACCOUNT MANAGER Oxygen Saturation - - Inhaled Oxygen Concentration - - Weight 69.9 kg (154 lb 1.6 oz) 04/18/2015 10:46 AM LOGISTICS ACCOUNT MANAGER Height 161 cm (5' 3.39) 04/18/2015 10:59 AM LOGISTICS ACCOUNT MANAGER Body Mass Index 26.97 04/18/2015 10:46 AM LOGISTICS ACCOUNT MANAGER documented in this encounter Medications at Time of Discharge Medication Sig Dispensed Refills Start Date End Date B.ANI/L.ACI/L.BERNICE/L.PLAN Take 1 capsule by 0 /06/2012 /L.TASH (PROBIOTIC mouth daily. FORMULA ORAL) MULTIVITAMIN ORAL Take by mouth daily. 0 05/02/19 15 ondansetron ODT Take 1 tablet by 0 04/18/2015 (ZOFRAN-ODT) 4 mg mouth every 8 (eight) disintegrating tablet hours as needed for nausea. EPINEPHrine 0.3 mg/0.3 See instructions 0 016 mL injection syringe citalopram (CeleXA) 20 Take 0.5 tablets by 0 04/0703/06/2021 mg tablet mouth daily. documented as of this encounter Consult Notes Shanti Mendoza M.D. - 04/18/2015 10:42 AM CST [id number] CHIEF COMPLAINT/REASON FOR VISIT Medication refill. HISTORY OF PRESENT ILLNESS This is a 59-year-old woman with multiple problems. 1. Hypothyroidism. She is on both levothyroxine and liothyronine and is a little past due for thyroid panel testing, requesting a refill of her Synthroid. She has had no symptoms of hypo- or hyperthyroidism such as palpitations, lightheadedness, weight gain or loss, edema, abnormally dry skin or change in her mood. 2. Mood disorder. Her past medical history is vague in terms of whether the mood disorder meets criteria for major depressive disorder. She says there have been points in her life when she was quite tearful and that her usual primary provider had recommend that she stay on Celexa even after her mood condition stabilized, though at a lower dose. The patient does not complain of depressed mood, anxiety, difficulty sleeping, weight gain or loss, anhedonia and is willing to remain on the citalopram 10 mg daily and discuss it with her next primary care provider. 3. Hormone replacement. The patient has been tested and prescribed compounded testosterone at an independent pharmacy and would like to stay on this medication as it is helpful for her in terms of overall sense of well-being, elimination of hot flashes and preservation of libido. She currently also takes progesterone in conjunction with the testosterone product. We discuss the possibility that testosterone could lead to unwanted side effects such as elevated blood pressure, diabetes and unwanted alterations of the lipid profile. 4. Irritable bowel syndrome. It has been years since she had a colonoscopy or endoscopy to evaluate for other causes of her intermittent abdominal crampy pain and explosive diarrhea. She has faithfullytaken Citrucel for a 6-month period last year and noted that it had no beneficial effect on her symptoms. She uses Imodium infrequently when her GI symptoms would cause great problems. She has had no weight loss. She notices no mucus or blood in her stool. Stools are typically loose and seemingly unrelated to diet although she wonders if she might have a gluten sensitivity. 5. Insomnia. Patient uses Ambien 5 mg infrequently and typically when she is not sleeping in her ownbed (she travels for work) and wakes up in the middle of the night. PAST MEDICAL/SURGICAL HISTORY Reviewed in EHR. Notable for Mood disorder, hypertension, hypothyroidism, insomnia and irritable bowel syndrome. SYSTEMS REVIEW Weight has been stable. She has had no fevers, chills, or sweats. No skin concerns, chest discomfort, palpitations, dyspnea, change in appetite. No concerns. PHYSICAL EXAMINATION VITAL SIGNS: Temp is 36.4, heart rate 55 and regular, respiratory rate 16, blood pressure 142/77 pjl456/86, O2 sat is 100% on ambient air, weight 69.9 kg. GENERAL: She is alert, oriented. Speech is fluent. She is in no acute distress. IMPRESSION/REPORT/PLAN 1. Irritable bowel syndrome. I do recommend that the patient continue to use Imodium only infrequently and to seek to eat a high-fiber diet. I would recommend a Gastroenterology clinical application consultant and potentially colonoscopy to rule out potentially treatable illnesses such as microcystic colitis, ischemic colitis, infectious colitis. The patient has names of [facility] gastro[facility]ologists and will seek treatment with one of them. 2. Hypothyroidism. I did refill her Synthroid at the current dose and matilde a TSH and a thyroid panel. 3. Unspecified mood disorder. 4. Hypertension, potentially poorly controlled. PLAN: 1. Refill her Celexa 10 mg a day and discuss this with her primary care provider when she is able toestablish care. 2. Insomnia. No change in the treatment plan: Ambien 5 mg no more than 3 nights in a row and no morethan 10 times a month. 3. Hypertension with elevated blood pressure. I am concerned that her testosterone may contribute toher uncontrolled hypertension. Recommend that she lower or eliminate this medication. Check outpatient blood pressures at home or at a pharmacy with a brachial cuff, record the dates, first readings and times of the blood pressure readings. When she has accumulated 10 or more she should present these to her primary care provider for potential medication adjustment or further discussion about reductions of her testosterone. Refilled Diovan. Shanti Mendoza M.D./felipe Electronically Signed By: SHANTI MENDOZA MD On: 04/19/2015 09:44 AM Modified by and Electronically Signed by: SHANTI MENDOZA MD On: 04/19/2015 09:44 AM Source: [facility] MHSDOLBEYNONRADSYS Document Id: [id number] STICS ACCOUNT MANAGER documented in this encounter Nursing Notes Shanti Mendoza M.D. - 04/18/2015 12:11 PM CST Ambulatory Patient Education The following Patient Education Materials have been given to the patient: Patient Education Materials: Source: [employer] Document Id: [id number] STICS ACCOUNT MANAGER documented in this encounter Miscellaneous Notes Miscellaneous - Logan Pro L.P.N. - 04/22/2015 11:25 AM CST Quality Measures Quality Measures Entered On: 04/22/2015 11:25 LOGISTICS ACCOUNT MANAGER Performed On: 04/22/2015 11:25 LOGISTICS ACCOUNT MANAGER by LOGAN PRO LPN Depression PHQ-9 Score : 2 LOGAN PRO LPN - 04/22/2015 11:25 LOGISTICS ACCOUNT MANAGER Source: [employer] Document Id: [id number] LOGISTICS ACCOUNT MANAGER!3 STICS ACCOUNT MANAGER Miscellaneous - Logan Pro L.P.N. - 04/22/2015 11:24 AM CST PHQ-9 PHQ-9 Entered On: 04/22/2015 11:25 LOGISTICS ACCOUNT MANAGER Performed On: 04/22/2015 11:24 LOGISTICS ACCOUNT MANAGER by LOGAN PRO LPN PHQ-9 Little interest or pleasure in doing things : Not at all Feeling down, depressed, or hopeless : Not at all Trouble falling or staying asleep, or sleeping too much : Several days Feeling tired or having little energy : Not at all Poor appetite or overeating : Several days Feeling bad about yourself or that you are a failure : Not at all Trouble concentrating on things : Not at all Moving or speaking slowly; restless or fidgety : Not at all Thoughts that you would be better off /hurting self : Not at all PHQ-9 Calculated Score : 2 Problems make work, home, or dealing with others : Not difficult at all LOGAN PRO LPN - 04/22/2015 11:24 LOGISTICS ACCOUNT MANAGER Source: [employer] Document Id: [id number] LOGISTICS ACCOUNT MANAGER!13 STICS ACCOUNT MANAGER Ester - Shanti Mendoza M.D. - 04/19/2015 9:54 AM CST Provider Letter 19 April 2015 PRISCILLA HAMPTON [address] [address] [facility] [id number] Dear PRISCILLA HAMPTON, I am pleased to report that your results from the following diagnostic test(s) are normal, with the exception of slight elevation of your TSH (thyroid stimulation hormone). Since your free T3 and T4 levels are normal, I would advise that you continue your current dose of levothyroxine and liothyronine, and RECHECK THESE LABS IN SIX MONTHS. Please follow up with us as we discussed during your visit orsooner if you have any concerns. If you have questions or concerns, please do not hesitate to call our office. Result Name Current Result Previous Result Normal Range TSH (mIU/L) (H) 4.70 04/18/2015 1.51 05/02/2014 0.27 - 4.20 T4 Free-[place] (ng/dL) 1.0 04/18/2015 0.9 - 1.7 - T3 Free-[place] (pg/mL) 2.4 04/18/2015 2.3 05/02/2014 2.0 - 3.5 - Sincerely, SHANTI MENDOZA [address] [place] [address] Electronic Signature Electronically Signed By: SHANTI MENDOZA MD On: 19 April 2015 This document has images extracted. Source: [facility] POWERCHART Document Id: [id number] Electronically signed by Conversion, [facility] Bonding Machine Setter [id number] at 08/31/2016 10:28 AM CDT Ester - Shanti Mendoza M.D. - 04/18/2015 12:11 PM CST Ambulatory Patient Summary [address] [place] [id number] Visit Information Name: PRISCILLA HAMPTON [facility] Number: [id number] Current Date: 04/18/2015 12:11:52 Physicians Attending Provider: SHANTI MENDOZA MD Primary Care Provider: GILLIAN ALEXIS MD PRISCILLA HAMPTON has been given the following list of follow-up instructions, medication list, and patient education materials: Follow-up Instructions With: Address: When: Follow up with primary care provider Within 1 month Your Medications Here is a list of [...] day citalopram (Celexa 20 mg oral tablet) 0.5 Tablet(s), Oral, once a day [facility] [place] [address] [place] [address] EPINEPHrine (EpiPen Auto-Injector 0.3 mg injectable kit) See Instructions Twin injector epipen [facility] [address] [place] [address] levothyroxine (Synthroid 137 mcg (0.137 mg) oral tablet) 1 Tablet(s), Oral, once a day NYDIA- No generic please liothyronine (liothyronine 5 mcg oral tablet) 1 Tablet(s), Oral, once a day Misc Prescription (Misc Prescription) See Instructions Testost-versa 4% apply 1/4 teaspoon daily Misc Prescription (Misc Prescription) See Instructions Testost-versa 4% apply 1/4 teaspoon daily Routed to [facility] multivitamin (multivitamin) Oral, once a day ondansetron (Zofran ODT 4 mg oral tablet, disintegrating) 1 Tablet(s), Oral, every 8 hours as neededfor Nausea [facility] [address] [place] [address] progesterone (progesterone 200 mg oral capsule) 1 cap, Oral, two times a day [facility] [address] [place] [address] valsartan (Diovan 40 mg oral tablet) 2 Tablet(s), Oral, once a day [facility] [address] [place], [place] [id number] zolpidem (Ambien 10 mg oral tablet) 0.5 Tablet(s), Oral, once a day (at bedtime) 0.5 tab PO prn Thisis a CHANGE Routed to [facility] Stop Taking the Following Medications: conjugated estrogens topical (conjugated estrogens 0.625 mg/g vaginal cream with applicator) famciclovir (Famvir 500 mg oral tablet) lidocaine topical (Lidoderm 5% topical film) Medication list as of 04-18-15 12:11 Attention: If you have any medications at home that are not on this list, DO NOT take them until youcontact your provider for clarification. Give a copy of your medication list to your primary care provider. Update your medication list any time medications or doses are changed and carry your medication list at all times in case of emergency. Electronically Signed By: SHANTI MENDOZA MD Signed On:18-APR-2015 11:30:32 Your Allergies & Intolerances Substance Reaction Symptoms [...] Active 07/22/11 date unknown Campylobacter diarrhea Active 07/06/12 onset unknown Unspecified Hypothyroidism Active 12/04/2004 07/03/13 Unspecified hypothyroidism Sprain of Medial Collateral Ligament of Knee Active 01/28/2005 07/03/13 SPRAIN MEDIAL COLLAT LIG of the thumb Radiculopathy Lumbar 5 R Active 08/08/2014 Disorder Mood NOS Active Irritable Bowel Syndrome (IBS) Active Your Upcoming Appointments Date Time Location Provider No Appointments found Attention: Contact your local Clinic if further appointment detail needed. Consider Using Patient Online Services Patient Online [...] if you dont have one. Go to [email or web address] and click on Create Your Account. Then, follow the directions to complete the online form. Youll be asked for your [facility] number which you can find at the top of this document. Your Goals/Additional instructions: Source: [facility] POWERCHART Document Id: [id number] STICS ACCOUNT MANAGER Miscellaneous - Shanti Mendoza M.D. - 04/18/2015 12:11 PM CST Ambulatory Discharge Medication List [address] [id number] Visit Information Name: PRISCILLA HAMPTON [facility] Number: [id number] Visit Date: 04/18/2015 12:11:50 Attending Provider: SHANTI MENDOZA MD Primary Care Provider: GILLIAN ALEXIS MD PRISCILLA HAMPTON has been given the following [...] day citalopram (Celexa 20 mg oral tablet) 0.5 Tablet(s), Oral, once a day [facility] [address] [place] [address] EPINEPHrine (EpiPen Auto-Injector 0.3 mg injectable kit) See Instructions Twin injector epipen [facility] [address] [place] [address] levothyroxine (Synthroid 137 mcg (0.137 mg) oral tablet) 1 Tablet(s), Oral, once a day NYDIA- No generic please liothyronine (liothyronine 5 mcg oral tablet) 1 Tablet(s), Oral, once a day Misc Prescription (Misc Prescription) See Instructions Testost-versa 4% apply 1/4 teaspoon daily Misc Prescription (Misc Prescription) See Instructions Testost-versa 4% apply 1/4 teaspoon daily Routed to [facility] multivitamin (multivitamin) Oral, once a day ondansetron (Zofran ODT 4 mg oral tablet, disintegrating) 1 Tablet(s), Oral, every 8 hours as neededfor Nausea [facility] [address] [place] [address] progesterone (progesterone 200 mg oral capsule) 1 cap, Oral, two times a day [facility] [address] [place] [address] valsartan (Diovan 40 mg oral tablet) 2 Tablet(s), Oral, once a day [facility] [address] [place] [address] zolpidem (Ambien 10 mg oral tablet) 0.5 Tablet(s), Oral, once a day (at bedtime) 0.5 tab PO prn Thisis a CHANGE Routed to [facility] Stop Taking the Following Medications: conjugated estrogens topical (conjugated estrogens 0.625 mg/g vaginal cream with applicator) famciclovir (Famvir 500 mg oral tablet) lidocaine topical (Lidoderm 5% topical film) Medication list as of 01-12-16 12:11 Attention: If you have any medications at home that are not on this list, DO NOT take them until youcontact your provider for clarification. Give a copy of your medication list to your primary care provider. Update your medication list any time medications or doses are changed and carry your medication list at all times in case of emergency. Electronically Signed By: SHANTI MENDOZA MD Signed On:18-APR-2015 11:30:32 Additional Information: Source: [facility] [employer] Document Id: [id number] STICS ACCOUNT MANAGER Wm Zambrano LPhilP.N. - 04/18/2015 10:59 AM CST Ambulatory Vitals Height Weight Ambulatory Vitals Height Weight Entered On: 04/18/2015 10:59 LOGISTICS ACCOUNT MANAGER Performed On: 04/18/2015 10:59 LOGISTICS ACCOUNT MANAGER by WM LOUIS LPN Vitals/Ht/Wt Peripheral Pulse Rate : 55 /min (LOW) Systolic Blood Pressure : 142 mmHg (HI) Diastolic Blood Pressure : 77 mmHg NIBP Mean : 99 mmHg BP Location : Left upper extremity Blood Pressure Cuff Size : Regular Height : 161 cm(Converted to: 5 ft 3 inch(es), 63 inch(es)) WM LOUIS LPN - 04/18/2015 10:59 LOGISTICS ACCOUNT MANAGER Source: [facility] [employer] Document Id: [id number] LOGISTICS ACCOUNT MANAGER!9 STICS ACCOUNT MANAGER Ester - Wm Louis L.P.N. - 04/18/2015 10:46 AM CST Adult Porcelain Enameling Supervisor Intake/History Adult Porcelain Enameling Supervisor Intake/History Entered On: 04/18/2015 10:53 LOGISTICS ACCOUNT MANAGER Performed On: 04/18/2015 10:46 LOGISTICS ACCOUNT MANAGER by WM LOUIS LPN Intake Chief Complaint : Refill medications Temperature Core : 36.4 DegC(Converted to: 97.5 DegF) (LOW) Peripheral Pulse Rate : 68 /min Respiratory Rate : 16 /min Heart Rhythm : Regular Systolic Blood Pressure : 159 mmHg (HI) Diastolic Blood Pressure : 86 mmHg NIBP Mean : 110 mmHg BP Location : Left upper extremity Blood Pressure Cuff Size : Regular SpO2 : 100 % Oxygen Therapy : Room air Height : 161 cm(Converted to: 5 ft 3 inch(es), 63 inch(es)) Actual Weight : 69.9 kg(Converted to: 154 lb 2 oz) Weight Source : Standing scale Dosing Weight Clinic : 69.9 kg Clinic BSA : 1.77 Body Mass Index : 26.97 kg/m2 WM LOUIS LPN - 04/18/2015 10:46 LOGISTICS ACCOUNT MANAGER General Info Information Given By : Patient Languages : Micronesian Is Patient Female and 13-50 no hysterectomy : No WM LOUIS LPN - 04/18/2015 10:46 LOGISTICS ACCOUNT MANAGER Subjective Pain Symptoms : Yes WM LOUIS LPN - 04/18/2015 10:46 LOGISTICS ACCOUNT MANAGER Pain Scale Pain Scale Verbal 0-10 : Open WM LOUIS LPN 04/18/2015 10:46 LOGISTICS ACCOUNT MANAGER Pain Pain Assessment Grid Pain 1 Location : Finger Laterality : Bilateral Intensity : 2 WM LOUIS LPN - 04/18/2015 10:46 LOGISTICS ACCOUNT MANAGER Dependent Habits Exposure to Tobacco Smoke : Care provider denies smoking in home, Other: former Smoking Status : Former smoker Tobacco 2A : Yes Tobacco Use/Currently Using : No Tobacco Use/Last 30 Days : No Tobacco Use/Last 12 months : No Alcohol Use : Yes WM LOUIS LPN - 04/18/2015 10:46 LOGISTICS ACCOUNT MANAGER Caffeine Use Grid Caffeine Use : Current Type : Coffee Frequency : Weekly Amount : 2-3/wk WM LOUIS LPN - 04/18/2015 10:46 LOGISTICS ACCOUNT MANAGER Recreational Drug Use Grid Drug Use : None WM LOUIS LPN 04/18/2015 10:46 LOGISTICS ACCOUNT MANAGER Source: [facility] POWERCHART Document Id: [id number] LOGISTICS ACCOUNT MANAGER!51 STICS ACCOUNT MANAGER documented in this encounter Plan of Treatment Upcoming Encounters Date Type Specialty Care Team Description 02/02/2022 Immunization Family Medicine 02/12/2022 Office Visit Dermatology Lacy Dykes M.D. [address] [place] [phone] (Wo rk) 02/22/2022 Office Visit Orthopedic Surgery Kimberlyn Alvarez APRN C.N.P., D.N.P. [address] [place], [place] [phone] (Wo rk) 03/12/2022 Diagnostic Otorhinolaryngology Blanka Carranza, C.N.P. [address] [place], [place] [id number] Aleena Hassan Au.D. [address] [place] [address] documented as of this encounter Procedures Procedure Name Priority Date/Time Associated Diagnosis Comme nts T3 Routine 04/18/2015 11:53 AM Results for this (TRIIODOTHYRONINE), LOGISTICS ACCOUNT MANAGER procedur e are in FREE, S the results section. THYROID-STIMULATING Routine 04/18/2015 11:53 AM R esults for this HORMONE-SENSITIVE LOGISTICS ACCOUNT MANAGER procedure are in (S-TSH) the results section. T4 (THYROXINE), Routine 04/18/2015 11:53 AM Resul ts for this FREE, S LOGISTICS ACCOUNT MANAGER procedure are i n the results section. documented in this encounter Results T3 (Triiodothyronine), Free (04/18/2015 11:53 AM LOGISTICS ACCOUNT MANAGER) P athologist Signature T3 2.4 2.0 - 3.5 POWERCHART (Triiodothyroni PGML ne), Free, S Comment: Test Performed by: [facility] [address] [place] [address] Senior Technical Writer: Jerardo Qureshi II, M.D., Ph.D. Specimen (Source) Anatomical Collection Method Collection Time Re ceived Time Location / / Volume Laterality Blood 04/18/2015 11:53 AM LOGISTICS ACCOUNT MANAGER Shanti Mendoza M.D. LAB BLOOD ADD-ON Performing Organization Address City/State/ZIP Code Phon e Number POWERCHART T4 (Thyroxine), Free (04/18/2015 11:53 AM LOGISTICS ACCOUNT MANAGER) P athologist Signature T4 (Thyroxine), 1.0 0.9 - 1.7 POWERCHART Darcy More NGDL Comment: Test Performed by: [address] [address] Senior Technical Writer: Jerardo Qureshi II, M.D., Ph.D. Specimen (Source) Anatomical Collection Method Collection Time Re ceived Time Location / / Volume Laterality Blood 04/18/2015 11:53 AM LOGISTICS ACCOUNT MANAGER Shanti Mendoza M.D. LAB BLOOD ADD-ON Performing Organization Address City/State/ZIP Code Phon e Number POWERCHART (ABNORMAL) Thyroid-Stimulating Hormone-Sensitive (s-TSH) (04/18/2015 11:53 AM LOGISTICS ACCOUNT MANAGER) P athologist Signature TSH 4.70 (H) 0.27 - POWERCHART (Thyrotropin) 4.20 MIUL Specimen (Source) Anatomical Collection Method Collection Time Re ceived Time Location / / Volume Laterality Blood 04/18/2015 11:53 AM LOGISTICS ACCOUNT MANAGER Shanti Mendoza M.D. LAB BLOOD ADD-ON Performing Organization Address City/State/ZIP Code Phon e Number POWERCHART documented in this encounter Visit Diagnoses Not on filedocumented in this encounter Additional Health Concerns Assessment Noted Time PHQ-9 Depression Total Score: 2 04/22/2015 11:24 AM CS T documented as of this encounter
--- OUTSIDE RECORDS SUMMARY | 2022-01-31 09:41 | XMS_ITS | Encounter Summary ---
:1955 Author Organization [facility] Address [address] [place] [address] Care Team Providers Name Role Phone Unavailable Primary Care Provider Unavailable Encounter Details Date Type Department Care Team Description 02/14/2014 Hospital Encounter [facility]X [facility] JM BernardmanEdie [address] [place], [place] [phone] (Wo rk) Social History Tobacco Use Types Packs/Day Years Used Date Smoking Tobacco: Never Assessed Alcohol Habits Answer Date Recorded How often do you have a drink containing 4 or more times a w [place]oux 07/30/2021 alcohol? How many drinks containing [...] or relatives? How often do you attend muslim or Patient refused 2021 confucianist services? 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 ORAL) documented as of this encounter Plan of Treatment Upcoming Encounters Date Type Specialty Care Team Description 02/02/2022 Immunization Family Medicine 02/12/2022 Office Visit Dermatology Lacy Dykes M.D. [address] [place], [place] [phone] (Wo rk) 02/22/2022 Office Visit Orthopedic Surgery Kimberlyn Alvarez APRN, C.N.P., D.N.P. [address] [place], [place] [phone] (Wo ) 03/12/2022 Diagnostic Otorhinolaryngology Blanka Carranza, C.N.P. [address] [place] [address] Aleena Hassan Au.D. [address] [place] [phone] documented as of this encounter Visit Diagnoses Not on filedocumented in this encounter Additional Health Concerns Assessment Noted Time PHQ-9 Depression Total Score: 1 04/13/2013 11:36 AM CS T documented as of this encounter
--- OUTSIDE RECORDS SUMMARY | 2022-01-31 09:41 | XMS_ITS | Encounter Summary ---
:1955 Author Organization [facility] Address [address] [place] [address] Care Team Providers Name Role Phone Unavailable Primary Care Provider Unavailable Reason for Visit Appointment Request (Routine) - Incomplete Specialty Diagnoses / Procedures Referred By Contact Refer red To Contact Referral ID Status Reason Start Date Expiration Date Visits V isits Requested Authorized [id number] Incomplete 03/21/2017 09/17/2017 1 1 Encounter Details Date Type Department Care Team Description 04/01/2017 Comprehensive Visit Department of Emilie Anne [facility] Orthopedic Surgery Sudarshan Faulkner (Primary Dx) in [address] [address] [place], [place] [phone] (Work) [phone] Social History Tobacco Use Types Packs/Day Years Used Date Smoking Tobacco: Former Alcohol Habits Answer Date Recorded How often do you have a drink containing 4 or more times a w [place] 07/30/2021 alcohol? How many drinks containing alcohol [...] you attend episcopal or Patient refused 2021 mandaeism services? 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 Risks discussed with: patient Procedural risks discussed, including (but not limited to) the following: allergic reaction, bleeding, transient increased pain, possible continued pain, reaction to medication and infection Consent obtained: written Procedure purpose: therapeutic and diagnostic Indications: Knee pain Skin preparation: povidone-iodine Anesthesia method: none Procedure location: knee - Knee site: R knee joint Site prep: patient was prepped and draped in unsual sterile fashion Procedural approach: anterolateral Procedure performed: injection only Needle gauge: 22 G The following medications were administered at the target site(s): Local anesthetic: 8 mL lidocaine 10 mg/mL (1 %) Corticosteroid: 40 mg triamcinolone acetonide 40 mg/mL; 10 mg dexamethasone 10 mg/mL Procedure completed successfully: yes Complications: no apparent complications Post-procedure instructions: avoid strenuous activity for 2 days Discharge instructions: dressing care and follow-up with ordering provider & GENERAL COUNSEL documented in this encounter Consult Notes Emilie Anne M.D. - 04/01/2017 3:30 PM CST Orthopaedic Surgery Consult 04/01/2017 CC: 2 week history right knee pain. HPI: Priscilla Fitzpatrick is a pleasant 61-year-old woman who presents today with a 2 week history of pain the medial aspect of the right knee. She reports her symptoms started while she was doing a workout class while on a vacation in [facility]. She reports that she did a lunge forward with her rightlower extremity on to a staircase and felt a painful popping sensation in the medial aspect of her right knee. From that point onward for the rest of her vacation she continued to have pain in her right knee to the point where is difficult for her to tolerate weight-bearing and she had quite a bit of swelling. She is able to make it to her vacation and eventually as time went on her pain started to sl owly improve. At this point she estimates she has about 50-60% improved but reports that the left needs certainly does not feel like it normally would she continues to have pain medially. She notes that spending long periods of time on her feet or sitting for long periods of time makes her symptoms worse and she does note that she stiffens up quite a bit. She is anticipating a long car ride coming upwithin the next several days and is dropping that because she knows her right knee will be painful and stiff. She has never had any prior surgeries on her right knee has never had any prior injections.She has been seen by Dr. Sweeney several years ago in the past for left knee issues. 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 She still notes some swelling and notes that her symptoms are also worse if she does deep knee flexion. She reports that she does not trust her right knee and when she is walking she reports that it feels like her right knee will hyperextend. She denies groin pain, hip pain, low back pain. PMHX: Patient Active Problem List Diagnosis ??? Mood Disorder NOS ??? Dysthymia Meds: Current Outpatient Prescriptions on File Prior to Visit Medication Sig Dispense Refill ??? B.ANI/L.ACI/L.BERNICE/L.PLAN/L.TASH (PROBIOTIC FORMULA ORAL) Take 1 capsule by mouth daily. ??? CINNAMON BARK (CINNAMON ORAL) Take 1,000 mg by mouth daily. ??? citalopram (CeleXA) 20 mg tablet Take 0.5 tablets by mouth daily. ??? EPINEPHrine (EPIPEN) 0.3 mg/0.3 mL injection syringe See instructions ??? levothyroxine (SYNTHROID) 150 mcg tablet Take 1 tablet by mouth daily. ??? liothyronine (for_CYTOMEL) 5 mcg tablet Take 1 tablet by mouth daily. ??? MULTIVITAMIN ORAL Take by mouth daily. ??? ondansetron ODT (ZOFRAN ODT) 4 mg disintegrating tablet Take 1 tablet by mouth every 8 (eight) hours as needed for nausea. ??? UNABLE TO FIND Tumeric raw herb daily ??? valsartan (DIOVAN) 40 mg tablet Take 2 tablets by mouth daily. ??? zolpidem (AMBIEN) 10 mg tablet Take 0.5 tablets by mouth at bedtime. No current facility-administered medications on file prior to visit. Allergies: Allergies Allergen Reactions ??? Diphtheria,Pertussis,Tetanus,Polio Vacc Other (see comments) No reaction listed in [employer] ??? Hylan G-F 20 Other (see comments) Synvisc - No reaction listed in [employer] ??? Pollen Extracts Other (see comments) No reaction listed in [employer] ??? 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 She does not use tobacco products. Physical Exam: She ambulates in today on her own accord does not use any assistive devices but there is mild antalgia in her gait. With the patient supine position she is able to obtain nearly full extension of the right knee is only able tolerate flexion about 90-95 degrees limited by pain. There is a grade 2 effusion, there are no skin wounds no erythema she has mild pain with patellar grind. She has a stable grade 1A Danay and posterior drawer the knee is stable to varus and valgus stress she is tender along the medial joint line of the right knee nontender laterally she has no pain with passive range of motion right hip. Imaging: Plain weight-bearing radiographs of the right knee were obtained today. X-rays show overall pretty good preservation of joint space in the medial lateral and patellofemoral compartments of the right knee perhaps mild medial joint space narrowing medially in the right knee. Patient does have more degenerative changes notable in the patellofemoral joint on the left side compared to the right. No evidence of fracture. Clinical Assessment: Right knee pain possibly due to degenerative meniscus tear Plan: I reviewed with the patient that I recommend start conservatively. She was encouraged to take ictv-wgi-ubymrxm anti-inflammatories and/or Tylenol as needed which she has been to this point which has been mildly helpful. She does complain of GI upset issues if she takes too much oral anti-inflammatories for too long a period time. I did offer her steroid injection which she would like to go forward with. She is anticipating a flight down to [facility] (she is planning to spend the next month there starting later this week) and states that if she has ongoing symptoms despite steroid injection she will plan to follow up there for ongoing orthopedic care. I think this would be reasonable. I discussed with her that I think if she has ongoing symptoms with minimal benefit from today's injection then an MRI of the right knee would be the next reasonable step with possible consideration of arthroscopy if a meniscal tear is noted. She expressed her understanding and agreement with this plan like to proceed with an injection today. Please refer to the procedure note for details regarding today's injection. All questions answered, the patient return to see me as needed. Emilie Anne M.D. 04/01/2017 3:48 PM & GENERAL COUNSEL documented in this encounter Plan of Treatment Upcoming Encounters Date Type Specialty Care Team Description 02/02/2022 Immunization Family Medicine 02/12/2022 Office Visit Dermatology Lacy Dykes M.D. [address] [place] [phone] (Wo rk) 02/22/2022 Office Visit Orthopedic Surgery Kimberlyn Alvarez APRN, C.N.PPhil, D.N.PPhil [address] [facility] [place] [phone] (Wo rk) 03/12/2022 Diagnostic Otorhinolaryngology Blanka Carranza C.NGavino [address] [place] [id number] Aleena Hassan Au.D. [address] [facility] [place] [phone] documented as of this encounter Procedures Procedure Name Priority Date/Time Associated Diagnosis Comme nts ME ARTHCS ASP/INJ Routine 04/01/2017 3:30 PM Pain Knee Right R esults for this MJR JT WO US VP & GENERAL COUNSEL procedure are i n the results section. documented in this encounter Results ME ARTHCS ASP/INJ MJR JT WO US (04/01/2017 3:30 PM VP & GENERAL COUNSEL) Narrative MMODAL - 04/01/2017 3:30 PM VP & GENERAL COUNSEL Emilie Anne M.D. ? 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 Risks discussed with: patient Procedural risks discussed, including (b ut not limited to) the following: allergic reaction, bleeding, transient i ncreased pain, possible continued pain, reaction to medication and infecti on Consent obtained: written Procedure purpose: therapeutic and diagn ostic Indications: Knee pain Skin preparation: povidone-iodine Anesthesia method: none Procedure location: knee - Knee site: R knee joint Site prep: patient was prepped and drape d in unsual sterile fashion ?? Procedural approach: anterolateral Procedure performed: injection only Needle gauge: 22 G The following medications were administe red at the target site(s): ??Local anesthetic: 8 mL lidocaine 10 m g/mL (1 %) ??Corticosteroid: 40 mg triamcinolone a cetonide 40 mg/mL; 10 mg dexamethasone 10 mg/mL Procedure completed successfully: yes Complications: no apparent complications ?Post-procedure instructions: avoid st renuous activity for 2 days ??Discharge instructions: dressing care and follow-up with ordering provider Emilie Anne M.D. PROCEDURE/MINOR SURGICAL ORD ERABLES Performing Organization Address City/State/ZIP Code Phon e Number MMODAL MMODAL NA DX Knee Right Standing Right 3 Views (04/01/2017 3:27 PM VP & GENERAL COUNSEL) Anatomical Region Laterality Modality Lower Extremity, Knee Right Digital Radiograph y Specimen (Source) Anatomical Collection Method Collection Time Re ceived Time Location / / Volume Laterality 04/01/2017 3:59 PM VP & GENERAL COUNSEL Impressions 04/01/2017 4:00 PM VP & GENERAL COUNSEL IMPRESSION: No comparison. Normal alignment. No radiographic eviden ce of acute fracture or dislocation. 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 Lateral joint s pace appears preserved. No erosive or osteolytic changes. Small suprapatellar knee joint effusion. No evidence of fracture or dislocation. Arthritic frank es also noted on the left. Narrative 04/01/2017 4:00 PM VP & GENERAL COUNSEL EXAM: DX KNEE RIGHT STANDING RIGHT 3 VIEWS Procedure Note Efren Jain M.D. - 04/01/2017Formatt ing of this note might be different from the original. EXAM: DX KNEE RIGHT STANDING RIGHT 3 VIE WS IMPRESSION: No comparison. Normal alignment. No radiographic eviden ce of acute fracture or dislocation. 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 Lateral joint s pace appears preserved. No erosive or osteolytic changes. Small suprapatellar knee joint effusion. No evidence of fracture or dislocation. Arthritic frank es also noted on the left. Emilie Anne M.D. IMG DIAGNOSTIC IMAGING PROCE DURMELLISSA documented in this encounter Visit Diagnoses Diagnosis Pain Knee Right - Primary Pain Knee Right documented in this encounter Administered Medications Inactive Administered Medications - up to 3 most recent administrations Medication Order MAR Action Action Date Dose Rate Site dexamethasone injection 10 mg Given 04/01/2017 3:54 PM VP & GENERAL COUNSEL 10 mg (for_DECADRON) 10 mg, intra-articular, One-Time Injection, Starting on Fri04/01/17 at 1554, For 1 dose lidocaine 10 mg/mL (1 %) injection 8 mL Given 04/01/2017 3:54 PM VP & GENERAL COUNSEL 8 mL (for_XYLOCAINE) 8 mL, infiltration, One-Time Injection, Starting on Fri04/01/17 at 1554, For 1 dose triamcinolone acetonide injection 40 mg Given 04/01/2017 3:54 PM VP & GENERAL COUNSEL 40 mg (for_KENALOG-40) 40 mg, intra-articular, One-Time Injection, Starting on Fri04/01/17 at 1554, For 1 dose documented in this encounter Additional Health Concerns Assessment Noted Time PHQ-9 Depression Total Score: 2 04/22/2015 11:24 AM CS T documented as of this encounter
--- OUTSIDE RECORDS SUMMARY | 2022-01-31 09:41 | XMS_ITS | Encounter Summary ---
:1955 Author Organization [facility] Address [address] [place] [address] Care Team Providers Name Role Phone Unavailable Primary Care Provider Unavailable Encounter Details Date Type Department Care Team Description 04/25/2014 Hospital Encounter HX [facility] JM BernardmanEdie [address] [place], [place] [phone] (Wo rk) Social History Tobacco Use Types Packs/Day Years Used Date Smoking Tobacco: Never Assessed Alcohol Habits Answer Date Recorded How often do you have a drink containing 4 or more times a w [place] 07/30/2021 alcohol? How many drinks containing alcohol [...] or relatives? How often do you attend gnosticist or Patient refused 2021 jew services? 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 ORAL) documented as of this encounter Plan of Treatment Upcoming Encounters Date Type Specialty Care Team Description 02/02/2022 Immunization Family Medicine 02/12/2022 Office Visit Dermatology Lacy Dykes M.D. [address] [place], [place] [phone] (Wo rk) 02/22/2022 Office Visit Orthopedic Surgery Kimberlyn Alvarez APRN, C.N.P., D.N.P. [address] [place], [place] [phone] (Wo ) 03/12/2022 Diagnostic Otorhinolaryngology Blanka Carranza, C.N.P. [address] [place] [address] Aleena Hassan Au.D. [address] [place] [phone] documented as of this encounter Visit Diagnoses Not on filedocumented in this encounter Additional Health Concerns Assessment Noted Time PHQ-9 Depression Total Score: 1 04/13/2013 11:36 AM CS T documented as of this encounter
--- OUTSIDE RECORDS SUMMARY | 2022-01-31 09:41 | XMS_ITS | Encounter Summary ---
:1955 Author Organization [facility] Address [address] [place] [address] Care Team Providers Name Role Phone Unavailable Primary Care Provider Unavailable Encounter Details Date Type Department Care Team Description 08/18/2015 Hospital Encounter HX [facility] [place] Luis Ludwig M.D. [address] [place], [place] [address] (Wo rk) Social History Tobacco Use Types Packs/Day Years Used Date Smoking Tobacco: Never Assessed Alcohol Habits Answer Date Recorded How often do you have a drink containing 4 or more times a w [place] 07/30/2021 alcohol? How many drinks containing alcohol [...] you attend pentecostal or Patient refused 2021 catholic services? 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 - 08/18/2015 8:03 AM CDT Clinic Full Note CHIEF COMPLAINT/REASON FOR VISIT Yearly physical HISTORY OF PRESENT ILLNESS Patient is a 60 year old female who presents today for an annual wellness exam. 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 - partner Adrian Cabello. Lost son 11 days old secondary to prolapsed cord. Two stepkids-- 7 grandkids. Quit smoking in 30s. HCM Last PAP 2014. Mammograms annually. Colonoscopy first at 50- with polyp. MEDICATIONS Ambien 10 mg oral tablet, 5 mg, 0.5 tab(s), 0.5 tab PO prn, PO, Bedtime, 3 refills Celexa 20 mg oral tablet, 10 mg, 0.5 tab(s), PO, Daily, 3 refills Cinnamon, 1,000 mg, PO, Daily Diovan 40 mg oral tablet, 80 mg, 2 tab(s), PO, Daily, 3 refills EpiPen Auto-Injector 0.3 mg injectable kit, See Instructions, Twin injector epipen, 1 refills liothyronine 5 mcg oral tablet, 5 mcg, 1 tab(s), PO, Daily, 3 refills Misc Prescription, See Instructions, Testost-versa 4% apply 1/4 teaspoon daily, 2 refills, * Misc Prescription, Tumeric raw herb daily Misc Prescription, See Instructions, Testost-versa 4% apply 1/4 teaspoon daily, 6 refills, * multivitamin, PO, Daily Probiotic Formula oral capsule, 1 cap(s), PO, Daily progesterone 200 mg oral capsule, 200 mg, 1 cap(s), PO, 2xDay, 3 refills, * Synthroid 137 mcg (0.137 mg) oral tablet, 137 mcg, 1 tab(s), PO, Daily, 3 refills Zofran ODT 4 mg oral tablet, disintegrating, 4 mg, 1 tab(s), PO, q8hr, PRN, 3 refills * indicates non-compliance ALLERGIES Synvisc Daptacel (DTaP) diphtheria/pertussis,acel/tetanus/polio Other Environmental Pollen PAST MEDICAL HISTORY Chronic Colon, polyp, benign Disorder Mood NOS Dysthymic Disorder Family history - ischemic heart disease Family History of Osteoporosis Hypothyroidism following radioiodine therapy Irritable Bowel Syndrome (IBS) Osteopenia Plantar heel pain Radiculopathy Lumbar 5 R Sprain of Medial Collateral Ligament of Knee Stress Unspecified Hypothyroidism Historical No historical problems PROCEDURES/SURGICAL HISTORY COSMETIC BLEPHAROPLASTY LOWER LIDS BILATERAL - 10/01/2012 - Procedure: COSMETIC BLEPHAROPLASTY LOWERLIDS BILATERAL; BILATERAL LOWER LID EYELID COSMETIC BLEPHAROPLASTY; Surgeon: Donald Kumari MD; Location: [facility] (10/01/2012), Colonoscopy (07/03/2011), HC COLONOSCOPY W BIOPSY - 10/13/07 (10/13/2007), HC COLONOSCOPY W SNARE REMOVAL TUMOR/POLYP/LESION - 10/13/07 (10/13/2007), Colonoscopy (06/08/2007), C OPEN TREATMENT METACARPOPHALANGEAL DISLOCATION 1 - 11/21/04 - RT (11/21/2004), C COMBINED ANT/POST COLPORRHAPHY - 03/23/03 (03/23/2003), HC SLING OPERATION FOR STRESS INCONTINENCE - 03/23/03 (03/23/2003), section (1981), BREAST SURGERY (), C FULL ROUT OBSTE CARE, DELIV - C/S X 1 (), HC REMOVE TONSILS/ADENOIDS,<12 Y/O - Tonsillectomy and adenoidectomy < age 12 (), ORTHOPEDIC SURGERY (), RW 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 SOCIAL HISTORY Date Time: 08/18/2015 07:25 Tobacco: Smoking Status: Former smoker Exposure: Care provider denies smoking in home, Other: former Alcohol: Use: Yes Recreational Drugs: Use: None Type: No Results Found FAMILY HISTORY Mother:Positive: Osteoporosis Father:Positive: CA - Cancer of prostate; Coronary artery disease; Hyperlipidemia; Hypertension; Myocardial infarction Brother:Positive: Hyperlipidemia SYSTEMS REVIEW GENERAL: No weight gain, no weight loss, no fever in past month, no chills, no sweats, no fatigue EENT: No blurred vision, no double vision, no eye pain, no sinus problems, no hoarseness, no difficulty swallowing, no mouth sores, no diminished hearing, no ringing in ears, no enlarged glands PULMONARY: No shortness of breath, no cough, no wheezing, no sputum, no hemoptysis CARDIAC: No valve problems, no Chest pain, no Chest pressure, no rapid beating, no irregular beating, no dependent edema, pain in calves or with walking, no difficulty moving arms and legs GI: No heartburn, no nausea, no vomiting, no stomach trouble, no constipation, no diarrhea, no blood in BMs, no change in BMs BREAST: No lumps of breast, no nipple discharge, no pain in breast : No vaginal discharge, no burning/pain with urination, no difficulty starting stream, no difficulty emptying bladder, no excessive urination MUSCULOSKELETAL: No joint pain, no joint swelling, no joint stiffness, no muscle pain, no muscle stiffness, no back pain, no back stiffness SKIN: No skin rashes, no skin sores, no change in moles NEURO: No significant headaches, no slurred speech, no seizures, no dizziness, no loss of consciousness, no memory loss ENDOCRINE: No excessive thirst, no excessive bruising VITAL SIGNS T: 37 ??C (Core) HR: 70 RR: 16 BP: 132 / 83 SpO2: 99% HT: 161 cm WT: 70.3 kg BMI: 27.12 PHYSICAL EXAMINATION GENERAL: Patient is in no distress. Capable of full communication without difficulty. Patient is polite and cooperative. Appropriately dressed and normal hygiene. HEENT: Normocephalic. EOMI, PERRLA, Canals patent, TMs normal. Oropharynx without lesion of mucosa.Pharyngeal rises symmetrically without exudate. NECK: No nodes, no thyromegaly. No bruit auscultated. HEART: Regular rate and rhythm. No murmurs, gallops or rubs noted. LUNGS: Clear to auscultation bilaterally. No expiratory wheeze. No accessory muscles of respirationnoted. ABDOMEN: Nontender to palpation. No hepato-splenomegaly. No mass. Normal bowel sounds in all 4 quadrants. EXTREMITIES: No neurovascular compromise. No cyanosis, clubbing or edema. No abnormal limb length. IMPRESSION/REPORT/PLAN 1. Well Adult Exam Normal Fasting labs today. Annual mammograms. Last PAP 2014. Last colonoscopy 2011. Continue good diet andexercise. Ordered: OV Est Pt Prev 396 2. Hypothyroidism following radioiodine therapy On replacement- labs today. Ordered: OV Est Pt Prev 396 3. Disorder Mood NOS Stable on Celexa. Ordered: OV Est Pt Prev 4. Irritable Bowel Syndrome (IBS) Trial of hyoscyamine for severe bouts. Trial of dietary exclusions as desired. Ordered: OV Est Pt Prev 396 Electronically Signed By: LYNN LUDWIG MD On: 08/20/2015 05:23 AM Source: [facility] POWERManga Corta Document Id: [id number] documented in this encounter Miscellaneous Notes Miscellaneous - mW Louis L.P.N. - 01/03/2016 1:20 PM CDT Med Management Document Contains Addenda Addendum by NAIN REYNOLDS RN on January 04, 2016 15:03:40 CDT faxed to [facility] Addendum by LYNN LUDWIG MD on January 04, 2016 14:52:26 CDT From: LYNN LUDWIG MD Sent: 01/04/2016 14:52:26 CDT Subject: RE:Med Management Approved Order:zolpidem (Ambien 10 mg oral tablet) 0.5 tab(s) PO Bedtime 0.5 tab PO prn Qty: 45 tab(s) Refills: 3 Substitutions Allowed Print - [id number] Signed by LYNN LUDWIG MD 01/04/2016 14:52:23 From: WM LOUIS LPN (DC Family Medicine Nurse Ketty) To: LYNN LUDWIG MD; Sent: 01/03/2016 13:20:21 CDT Subject: Med Management On hold pending signature Order:zolpidem (Ambien 10 mg oral tablet) 0.5 tab(s) PO Bedtime 0.5 tab PO prn Qty: 45 tab(s) Refills: 3 Substitutions Allowed Print - [id number] Received refill request from [facility]. Medication last ordered 04/18/[address] Mendoza. Last visit with you was wellness exam 08/18/15. Source: [facility] POWERCHART Document Id: [id number] Telephone Encounter - Conversion, Historical Provider Ser - 10/16/2015 3:18 PM CDT *Phone Message Document Contains Addenda Addendum by LYNN LUDWIG MD on October 26, 2015 12:19:39 CDT no follow up UA needed Addendum by ROSALES GONZALES LPN on October 17, 2015 10:41:24 CDT From: ROSALES GONZALES LPN (DC Family Medicine Nurse Ketty) To: LYNN LUDWIG MD; Sent: 10/17/2015 10:41:24 CDT Subject: RE: *Phone Message Addendum by ROSALES GONZALES LPN on October 17, 2015 10:41:19 CDT called pt and states that she would like mehran as PCP,. informed pt that dr. ludwig is out of the clinic for the week, pt would like this addressed by PCP or proivder of the day. pt states thatshe will not come in for a follow up appt., she will wait for dr. corona return if needed. she is having no S/S at this time. Addendum by LYNN LUDWIG MD on October 16, 2015 16:15:34 CDT From: LYNN LUDWIG MD To: DC Family Medicine Nurse Ketty; DC Family Medicine Feeder Tender; Sent: 10/16/2015 16:15:34 CDT Subject: RE: *Phone Message Addendum by LYNN LUDWIG MD on October 16, 2015 16:14:53 CDT Patient is no longer on my panel- and needs to pick another PCP as she has been unhappy with my care. Please have her choose another PCP to follow up with. Addendum by WM LOUIS LPN on October 16, 2015 16:02:30 CDT From: WM LOUIS LPN (DC Family Medicine Nurse Ketty) To: LYNN LUDWIG MD; Sent: 10/16/2015 16:02:30 CDT Subject: FW: *Phone Message Please review and advise if follow up is needed Tayler Norris From: MERLYN SPAULDING I (DC Family Medicine Feeder Tender) To: [facility] Medicine Nurse Ketty; Sent: 10/16/2015 15:18:16 CDT Subject: *Phone Message Caller is: ( x ) Patient ( ) Mother ( ) Father ( ) Spouse ( ) Daughter ( ) Son ( ) Pharmacy ( ) Other: Physician: Dr Ludwig Patient MRN #: Reason for Call: Possible lab test Message: Patient is coming in for lab test on 10/17/15. She has finished antibiotic for UTI and is wondering if she should have urinalysis rechecked at that time since she had no symptoms with the firstinfection. Phone number is [phone]. Advice/Action: Source used: ( ) Verbalizes understanding of instructions ( ) Instructed to call back if symptoms worsen or do not resolve ( ) Refused to see provider ( ) Appointment Scheduled ( ) OK to leave message on voice mail ( ) Patient told to expect return call: ( ) today ( ) tomorrow ( ) next work day ( ) Patient's email ( ) Patient told physician out of office, will call upon return call on ( ) ( ) Patient told physician out of office, routed to other physician ( ) Other ( ) Call back telephone number ( ) Call back cell phone number ( ) Source: [facility] POWERCHART Document Id: [id number] Miscellaneous - Lynn Ludwig M.D. - 08/29/2015 9:35 PM CDT labs From: LYNN LUDWIG MD To: PRISCILLA HAMPTON Sent: 08/29/2015 21:35:43 CDT Subject: labs As previously discussed- the levothyroxine dose has been increased with a lab order placed for you to repeat your thyroid labs in 6-8 weeks on rececnt increase of medication for further titration as needed. Cholesterol appears artificially elevated by high amounts of HDL or good cholesterol which protects the heart and is beneficial to overall cardiac health. This is an excellent profile! Please feel free to contact me with any questions. Cristina Results: Date Result Name Ind Value Ref Range 08/18/2015 08:15 UA Color Light yellow 08/18/2015 08:15 UA Clarity Clear (Clear - ) 08/18/2015 08:15 UA Spec Grav 1.010 08/18/2015 08:15 UA pH 7.0 (<5.0 - ) 08/18/2015 08:15 UA Protein Negative mg/dL (Negative - ) 08/18/2015 08:15 UA Glucose Negative mg/dL (Negative - ) 08/18/2015 08:15 UA Ketones Negative mg/dL (Negative - ) 08/18/2015 08:15 UA Bili Negative (Negative - ) 08/18/2015 08:15 UA Urobilinogen 0.2 mg/dL (0.2 - ) 08/18/2015 08:15 UA Blood Negative (Negative - ) 08/18/2015 08:15 UA Nitrite Negative (Negative - ) 08/18/2015 08:15 UA Leuk Est (*) Small (Negative - ) 08/18/2015 08:15 UR WBC 4-10 /HPF (None Seen - ) 08/18/2015 08:15 UR RBC Occ-2 /HPF (None Seen - ) 08/18/2015 08:15 UR Renal Epi Cells (*) Occ-3 /HPF (None Seen - ) 08/18/2015 08:15 UR Squamous Epi Cells (*) Occ-3 /HPF (None Seen - ) 08/18/2015 08:15 UR Bacteria (*) Present (None Seen - ) 08/18/2015 08:00 Sodium Lvl (L) 134.9 mM/L (135.0 - 145.0) 08/18/2015 08:00 Potassium Lvl 4.4 mmol/L (3.6 - 4.8) 08/18/2015 08:00 Chloride 98 mmol/L (98 - 107) 08/18/2015 08:00 CO2 26.1 mmol/L (23.0 - 29.0) 08/18/2015 08:00 AGAP 11 mmol/L (10 - 20) 08/18/2015 08:00 Alkaline Phosphatase 70 U/L (46 - 118) 08/18/2015 08:00 Glucose Fasting 94 mg/dL (70 - 99) 08/18/2015 08:00 Creatinine 0.79 mg/dL (0.60 - 1.30) 08/18/2015 08:00 EGFR (MDRD) >60 mL/min/1.73m2 (>=60 - ) 08/18/2015 08:00 EGFR (MDRD) >60 mL/min/1.73m2 (>=60 - ) 08/18/2015 08:00 BUN 13 mg/dL (7 - 18) 08/18/2015 08:00 Calcium Lvl 10.0 mg/dL (8.8 - 10.2) 08/18/2015 08:00 Protein Total 7.7 g/dL (6.3 - 7.9) 08/18/2015 08:00 Albumin Lvl 4.6 g/dL (3.5 - 5.0) 08/18/2015 08:00 AST 25 unit/L (8 - 43) 08/18/2015 08:00 ALT 18 unit/L (7 - 45) 08/18/2015 08:00 Bili Total 0.5 mg/dL (0.1 - 1.0) 08/18/2015 08:00 Cholesterol (H) 296 mg/dL ( - <=199) 08/18/2015 08:00 Trig 51 mg/dL ( - <=149) 08/18/2015 08:00 HDL 127 mg/dL (>=50 - ) 08/18/2015 08:00 LDL Calculated (H) 158 mg/dL ( - <=129) 08/18/2015 08:00 Chol/HDL Ratio 2 08/18/2015 08:00 TSH (H) 10.20 mIU/L (0.27 - 4.20) 08/18/2015 08:00 T4 Free-Martinez 1.0 ng/dL (0.9 - 1.7 - ) 08/18/2015 08:00 25-Hydroxy D-Martinez 39 ng/mL 08/18/2015 08:00 25-Hydroxy D2-Martinez <4.0 ng/mL 08/18/2015 08:00 25-Hydroxy D3-Martinez 39 ng/mL 08/18/2015 08:00 Hgb 15.1 g/dL (12.0 - 15.5) 08/18/2015 08:00 Hct 43.4 % (34.9 - 44.5) 08/18/2015 08:00 WBC 5.1 x10(9)/L (3.4 - 10.5) 08/18/2015 08:00 RBC 4.51 x10(12)/L (3.90 - 5.03) 08/18/2015 08:00 MCV 96.2 fL (81.6 - 98.3) 08/18/2015 08:00 RDW 12.1 % (11.9 - 15.5) 08/18/2015 08:00 Platelet 244 x10(9)/L (150 - 450) 08/18/2015 08:00 Neutro Absolute 2.87 10(9)/L (1.70 - 7.00) 08/18/2015 08:00 Lymph Absolute 1.59 x10(9)/L (0.90 - 2.90) 08/18/2015 08:00 [place] Absolute 0.40 x10(9)/L (0.30 - 0.90) 08/18/2015 08:00 Eos Absolute 0.20 x10(9)/L (0.05 - 0.50) 08/18/2015 08:00 Baso Absolute 0.03 x10(9)/L (0.00 - 0.30) 08/18/2015 08:00 CBC Comment slide reviewed Source: [facility] POWERCHART Document Id: [id number] Ester - Judith Colmenares - 08/18/2015 2:59 PM CDT Quality Measures Quality Measures Entered On: 08/21/2015 14:59 CDT Performed On: 08/18/2015 14:59 CDT by JUDITH COLMENARES Depression PHQ-9 Score : 3 JUDITH COLMENARES - 08/21/2015 14:59 CDT Source: [facility] POWERCHART Document Id: [id number] CDT!3 Ester - Wm Louis L.P.N. - 08/18/2015 7:25 AM CDT Health Assessment Health Assessment Entered On: 08/18/2015 7:26 CDT Performed On: 08/18/2015 7:25 CDT by WM LOUIS LPN Health Assessment Complete Health Assessment Complete or Modified : Annual Health Assessment Annual Health Assessment Completed : Yes WM LOUIS LPN - 08/18/2015 7:25 CDT Nutrition Nutrition Risk Factors by History Adult : None WM LOUIS LPN - 08/18/2015 7:25 CDT Functional Current Daily Living Assistance : None WM LOUIS LPN - 08/18/2015 7:25 CDT Dependent Habits Exposure to Tobacco Smoke : Care provider denies smoking in home, Other: former Smoking Status : Former smoker Tobacco 2A : Yes Tobacco Use/Currently Using : No Tobacco Use/Last 30 Days : No Tobacco Use/Last 12 months : No WM LOUIS LPN - 08/18/2015 7:25 CDT Caffeine Use Grid Caffeine Use : Current Type : Coffee Frequency : Weekly Amount : 2-3/wk WM LOUIS LPN - 08/18/2015 7:25 CDT Alcohol Use : Yes WM LOUIS LPN - 08/18/2015 7:25 CDT Recreational Drug Use Grid Drug Use : None WM LOUIS LPN - 08/18/2015 7:25 CDT AUDIT Tool How Often Do You Have A Drink : 2 to 3 times a week How Many Drinks in a Day When Drinking : 1 or 2 Six or More Drinks On One Occassion : Never Audit Phase 1 Score : 3 WM LOUIS LPN - 08/18/2015 7:25 CDT Psychosocial Domestic Abuse Concerns : None Behavioral Health Screen/Safety Assmt : No Rastafari Preference : Unknown WM LOUIS LPN - 08/18/2015 7:25 CDT Advance Directive Advanced Directives : Yes Advance Directive Type : Living will Advance Directive Location : Other: Home WM LOUIS LPN - 08/18/2015 7:25 CDT Educ Needs Learning Style Preference Adult Grid Patient : Demonstration, Printed materials Family : None WM LOUIS LPN - 08/18/2015 7:25 CDT [facility] Document Id: [id number] CDT!42 Miscellaneous - Wm Louis L.PPhilNPhil - 08/18/2015 7:16 AM CDT Adult Team Guide Intake/History Adult Team Guide Intake/History Entered On: 08/18/2015 7:20 CDT Performed On: 08/18/2015 7:16 CDT by WM LOUIS LPN Intake Chief Complaint : Yearly physical Temperature Core : 37 DegC(Converted to: 98.6 DegF) Peripheral Pulse Rate : 70 /min Respiratory Rate : 16 /min Heart Rhythm : Regular Systolic Blood Pressure : 132 mmHg Diastolic Blood Pressure : 83 mmHg NIBP Mean : 99 mmHg BP Location : Left upper extremity Blood Pressure Cuff Size : Regular SpO2 : 99 % Oxygen Therapy : Room air Height : 161 cm(Converted to: 5 ft 3 inch(es), 63 inch(es)) Actual Weight : 70.3 kg(Converted to: 155 lb 0 oz) Weight Source : Standing scale Dosing Weight Clinic : 70.3 kg Clinic BSA : 1.77 Body Mass Index : 27.12 kg/m2 WM LOUIS LPN - 08/18/2015 7:16 CDT General Info Languages : Upper Sorbian Is Patient Female and 13-50 no hysterectomy : No LOUIS, WMKIMBERLY Leavitt LPN - 08/18/2015 7:16 CDT Subjective Pain Symptoms : No WM LOUIS LPN - 08/18/2015 7:16 CDT Dependent Habits Exposure to Tobacco Smoke : Care provider denies smoking in home, Other: former Smoking Status : Former smoker Tobacco 2A : Yes Tobacco Use/Currently Using : No Tobacco Use/Last 30 Days : No Tobacco Use/Last 12 months : No Alcohol Use : No WM LOUIS LPN - 08/18/2015 7:16 CDT Caffeine Use Grid Caffeine Use : Current Type : Coffee Frequency : Weekly Amount : 2-3/wk WM LOUIS LPN - 08/18/2015 7:16 CDT Recreational Drug Use Grid Drug Use : None WM LOUIS LPN - 08/18/2015 7:16 CDT Source: [employer] Document Id: [id number] CDT!42 documented in this encounter Plan of Treatment Upcoming Encounters Date Type Specialty Care Team Description 02/02/2022 Immunization Family Medicine 02/12/2022 Office Visit Dermatology Lacy Dykes M.D. [address] [place], [place] [phone] (Wo rk) 02/22/2022 Office Visit Orthopedic Surgery Kimberlyn Alvarez APRN, C.N.P., D.N.P. [address] [place], [place] [phone] (Wo rk) 03/12/2022 Diagnostic Otorhinolaryngology Blanka Carranza, C.N.P. [address] [place], [place] [id number] Aleena Hassan Au.D. [address] [place] [address] documented as of this encounter Procedures Procedure Name Priority Date/Time Associated Comments Diagnosis URINALYSIS WITH Routine 08/18/2015 8:15 AM Result s for this MICROSCOPIC CDT procedure are i n the results section. LIPID PANEL, S Routine 08/18/2015 8:00 AM Results for this CDT procedure are i n the results section. AUTOMATED Routine 08/18/2015 8:00 AM Results f or this DIFFERENTIAL, B CDT procedure ar e in the results section. 25-HYDROXYVITAMIN D2 Routine 08/18/2015 8:00 AM R esults for this AND D3, S CDT procedure are i n the results section. CBC WITH DIFFERENTIAL, Routine 08/18/2015 8:00 AM Results for this B CDT procedure are i n the results section. THYROID-STIMULATING Routine 08/18/2015 8:00 AM Re sults for this HORMONE-SENSITIVE CDT procedure are in (S-TSH) the results section. T4 (THYROXINE), FREE, Routine 08/18/2015 8:00 AM Results for this S CDT procedure are i n the results section. COMPREHENSIVE Routine 08/18/2015 8:00 AM Results for this METABOLIC PANEL, S/P CDT procedu re are in the results section. documented in this encounter Results (ABNORMAL) Urinalysis, Complete, Includes Microscopic (08/18/2015 8:15 AM CDT) [facility] gist Method Time Signature Clarity Clear Clear POWERCHART HXUr Color Light POWERCHART yellow Specific 1.010 POWERCHART [place], POCT, U pH, POCT, Urine 7.0 <5.0 POWERCHART Protein, Ur, Dip Negative Negative POWERCHART MGDL Glucose Negative Negative POWERCHART MGDL Ketones, QL(U) Negative Negative POWERCHART MGDL HXBILIRUBIN Negative Negative POWERCHART HXBLOOD Negative Negative POWERCHART Leukocyte Small (A) Negative POWERCHART Esterase HXNITRITE Negative Negative POWERCHART Urobilinogen 0.2 0.2 MGDL POWERCHART HXUR WBC. 4-10 None Seen POWERCHART HPF HXUR RBC. Occ-2 None Seen POWERCHART HPF HXUR Renal Epi Occ-3 (A) None Seen POWERCHART Cells HPF Squamous Occ-3 (A) None Seen POWERCHART Epithelial HPF HXUR Bacteria, Present (A) None Seen POWERCHART Specimen (Source) Anatomical Collection Method Collection Time Re ceived Time Location / / Volume Laterality Urine, First 08/18/2015 8:15 AM Voided CDT Lynn Ludwig M.D. LAB URINE ORDERABLES Performing Organization Address City/State/ZIP Code Phon e Number POWERCHART Automated Differential (08/18/2015 8:00 AM CDT) P athologist Signature Absolute 2.87 1.70 - POWERCHART Neutrophils 7.00 109L Lymphocytes 1.59 0.90 - POWERCHART 2.90 X109L Monocytes 0.40 0.30 - POWERCHART 0.90 X109L Eosinophils 0.20 0.05 - POWERCHART 0.50 X109L Absolute 0.03 0.00 - POWERCHART Basophil 0.30 X109L Specimen Anatomical Collection Method Collection Time Receive d Time (Source) Location / / Volume Laterality Blood 08/18/2015 8:00 AM 6 8:00 CDT AM CDT Lynn Ludwig M.D. LAB BLOOD ADD-ON Performing Organization Address City/[facility]/ZIP Code Phon e Number POWERCHART CBC with Differential (08/18/2015 8:00 AM CDT) [facility] Method Time Signature Comment slide POWERCHART reviewed Leukocytes 5.1 3.4 - POWERCHART 10.5 X109L Erythrocytes 4.51 3.90 - POWERCHART 5.03 [id number] Hemoglobin 15.1 12.0 - POWERCHART 15.5 GDL Hematocrit 43.4 34.9 - POWERCHART 44.5 MCV 96.2 81.6 - POWERCHART 98.3 FL HX RDW 12.1 11.9 - POWERCHART 15.5 Platelet Count 244 150 - 450 POWERCHART X109L Specimen (Source) Anatomical Collection Method Collection Time Re ceived Time Location / / Volume Laterality Blood 08/18/2015 8:00 AM CDT Lynn Ludwig M.D. LAB BLOOD ADD-ON Performing Organization Address City/State/ZIP Code Phon e Number POWERCHART 25-Hydroxyvitamin D2 and D3 (08/18/2015 8:00 AM CDT) P athologist Signature HX25 HYDROXY D2 <4.0 NGML POWERCHART 25-Hydroxy D3 39 NGML POWERCHART Vitamin D, S 39 NGML POWERCHART Comment: REFERENCE VALUE------ 25-HYDROXY D TOTAL (D2+D3) Optimum level s in the healthy population are 20-50, patients with bone disease may benefit from higher levels within this r syeda. Test Performed by: [place] [address] Hair And Makeup Designer: Jerardo Qureshi II, M.D., Ph.D. Specimen (Source) Anatomical Collection Method Collection Time Re ceived Time Location / / Volume Laterality Blood 08/18/2015 8:00 AM CDT Lynn Ludwig M.D. LAB BLOOD ADD-ON Performing Organization Address City/[facility]/ZIP Code Phon e Number POWERCHART (ABNORMAL) Thyroid-Stimulating Hormone-Sensitive (s-TSH) (08/18/2015 8:00 AM CDT) Analysis Performed At Patho logist Time Signature TSH 10.20 (H) 0.27 - POWERCHART (Thyrotropin) 4.20 MIUL Specimen (Source) Anatomical Collection Method Collection Time Re ceived Time Location / / Volume Laterality Blood 08/18/2015 8:00 AM CDT Lynn Ludwig M.D. LAB BLOOD ADD-ON Performing Organization Address City/[facility]/ZIP Code Phon e Number POWERCHART T4 (Thyroxine), Free (08/18/2015 8:00 AM CDT) P athologist Signature T4 (Thyroxine), 1.0 0.9 - 1.7 POWERCHART Free, S NGDL Comment: Test Performed by: [facility] [address] [place] [address] Hair And Makeup Designer: Jerardo Qureshi II, M.D., Ph.D. Specimen (Source) Anatomical Collection Method Collection Time Re ceived Time Location / / Volume Laterality Blood 08/18/2015 8:00 AM CDT Lynn Ludwig M.D. LAB BLOOD ADD-ON Performing Organization Address City/[facility]/ZIP Code Phon e Number POWERCHART (ABNORMAL) Lipid Panel (08/18/2015 8:00 AM CDT) P athologist Signature Cholesterol, 296 (H) <=199 MGDL POWERCHART Total Comment: 2013 National Lipid Association recommen dations for Total Cholesterol in adults ages 18 and up: Desirable <200 mg/dL Borderline high 200-239 mg/dL High 240 mg/dL 2014 National Lipid Association recommen dations for Total Cholesterol in children ages 2 to 17. Acceptable <170 mg/dL Borderline High 170-199 mg/dL High 200 mg/dL HX HDL 127 >=50 MGDL POWERCHART Comment: 2013 National Lipid Association recommen dations for HDL-C in adults ages 18 and up: Low <40 mg/dL (Men) Low <50 mg/dL (Women) 2014 National Lipid Association recommen dations for HDL-C in children ages 2 to 17. Low <40 mg/dL Borderline Low 40-45 mg/dL Acceptable >45 mg/dL Triglycerides 51 <=149 MGDL POWERCHART Comment: 2014 National Lipid Association recommen dations for Triglycerides in adults ages 18 and up: Normal <150 mg/dL Borderline High 150-199 mg/dL High 200-499 mg/dL Very High 500 mg/dL 2014 National Lipid Association recommen dations for Triglycerides in children ages 2 to 9. Acceptable <75 mg/dL Borderline High 75-99 mg/dL High 100 mg/dL 2014 National Lipid Association recommen dations for Triglycerides in children ages 10 to 17. Acceptable <90 mg/dL Borderline High 90-129 mg/dL High 130 mg/dL Trigs >400mg/dL: Triglycerides >400 mg/ dL. Calculated LDL cholesterol is not valid. Non-HDL cholesterol may be used for risk assessment when triglycerides are >400mg/dL. Calculated LDL 158 (H) <=129 MGDL POWERCHART Comment: 2013 National Lipid Association recommen dations for LDL-C in adults ages 18 and up: Desirable <100 mg/dL Above desirable 100-129 mg/dL Borderline high 130-159 mg/dL High 160-189 mg/dL Very High 190 mg/dL 2014 National Lipid Association recommen dations for LDL-C in children ages 2 to 17. Acceptable <110 mg/dL Borderline High 110-129mg/dL High 130 mg/dL LDL-C >190mg/dL: The markedly elevated LDL level is suggestive of a genetic condition such as familial hypercholesterolemia(FH) or familial defective apolipoprotein B-100 (FDB). Molecular genetic t esting for FH and FDB is available maryanne rutledge [facility]: FH/ADH Genetic Reflex [place] (test ADHP). Acquired (non-genetic) causes of markedly increased LDL cholesterol include cholestatic liver disease due to the presence of LpX. If a genetic form of hypercholesterolemia is suspected, family studies including biochemical testing fo r lipids (total cholesterol,triglycerides, LDL cholesterol and HDL cholesterol) are recommended. ??Please contact the laboratory at or the on-line test catalog at [employer] for information about how to order these bolivar ts or to speak with a genetic counselor. Further interpretation would require clinical information. Total Cholesterol/HDL Ratio 2 PO WERCHART Specimen (Source) Anatomical Collection Method Collection Time Re ceived Time Location / / Volume Laterality Blood 08/18/2015 8:00 AM CDT Lynn Ludwig M.D. LAB BLOOD ADD-ON Performing Organization Address City/State/ZIP Code Phon e Number POWERCHART (ABNORMAL) CMP (Comprehensive Metabolic Panel) (08/18/2015 8:00 AM CDT) Patholo gist Method Time Signature Alanine 18 7 - 45 POWERCHART Amniotransferase, LD UNITL Albumin, S 4.6 3.5 - 5.0 POWERCHART GDL Alkaline 70 46 - 118 POWERCHART Phosphatase, S UL Aspartate 25 8 - 43 POWERCHART Aminotransferase UNITL (AST), S Sodium, S 134.9 (L) 135.0 - POWERCHART 145.0 MML Potassium, S 4.4 3.6 - 4.8 POWERCHART MMOLL Chloride, S 98 98 - 107 POWERCHART MMOLL CO2 Total 26.1 23.0 - POWERCHART 29.0 MMOLL Glucose, Fasting, S 94 70 - 99 POWERCHART MGDL BUN (Blood Urea 13 7 - 18 POWERCHART Nitrogen), S MGDL Creatinine 0.79 0.60 - POWERCHART 1.30 MGDL Calcium, Total, S 10.0 8.8 - POWERCHART 10.2 MGDL Anion Gap 11 10 - 20 POWERCHART MMOLL HXeGFR (MDRD) >60 >=60 POWERCHART [id number] 2 eGFR Black/ >60 >=60 POWERCHART Serbian [id number] 2 Bilirubin, Total, S 0.5 0.1 - 1.0 POWERCHART MGDL Total Protein, S 7.7 6.3 - 7.9 POWERCHART GDL Specimen (Source) Anatomical Collection Method Collection Time Re ceived Time Location / / Volume Laterality Blood 08/18/2015 8:00 AM CDT Lynn Ludwig M.D. LAB BLOOD ADD-ON Performing Organization Address City/State/ZIP Code Phon e Number POWERCHART documented in this encounter Visit Diagnoses Not on filedocumented in this encounter Additional Health Concerns Assessment Noted Time PHQ-9 Depression Total Score: 2 04/22/2015 11:24 AM CS T documented as of this encounter
--- OUTSIDE RECORDS SUMMARY | 2022-01-31 09:41 | XMS_ITS | Encounter Summary ---
:1955 Author Organization [facility] Address [address] [place] [address] Care Team Providers Name Role Phone Unavailable Primary Care Provider Unavailable Encounter Details Date Type Department Care Team Description 05/27/2014 Hospital Encounter HX [facility]ENS Kimberlyn Mayer, JOSE DANIEL, C.N.P., D. N.P. [address] [place] [address] (Wo rk) Social History Tobacco Use Types Packs/Day Years Used Date Smoking Tobacco: Never Assessed Alcohol Habits Answer Date Recorded How often do you have a drink containing 4 or more times a w kasaan 07/30/2021 alcohol? How many drinks containing alcohol [...] you attend christian or Patient refused 2021 judaism services? 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 ORAL) MULTIVITAMIN ORAL Take by mouth daily. 0 05/02/19 15 documented as of this encounter Miscellaneous Notes Miscellaneous - Kimberlyn Mayer, JUNIOR ENGINEER, C.N.P. - 05/30/2014 7:46 AM CST Normal Results Letter 30 May 2014 PRISCILLA HAMPTON [id number] [facility] [id number] Dear PRISCILLA HAMPTON, I am pleased to report that your results from the following bone density scan shows Osteopenia. It is important you have Calcium 1200mg daily with 400IU vitamin D by diet or supplements. If you have questions or concerns, please do not hesitate to call our office. Result Name Current Result BD Hip/Pelvis/Spine 05/27/2014 Sincerely, KIMBERLYN MAYER [address] [id number] Electronic Signature Electronically Signed By: KIMBERLYN MAYER RN, PATTERNMAKER WOOD On: 30 May 2014 This document has images extracted. Source: [facility] POWERCHART Document Id: [id number] Miscellaneous - Conversion, Historical Provider Ser - 05/27/2014 11:59 PM CROP ADJUSTER Coding Summary-Paper Based CODING DATE: 05/31/2014 [facility] * Discharged to Home or Self Care PAYOR: [employer] ADMIT DX: 733.99 Other Disorders of Bone and Cartilage REASON FOR VISIT DX: 733.99 Other Disorders of Bone and Cartilage FINAL DX: PRINCIPAL: 733.99 Other Disorders of Bone and Cartilage SECONDARY: PROCEDURES DOCTOR NAME DATE NOTE: The code number assigned matches the documented diagnosis and / or procedure in the patient's chart. However, the narrative phrase printed from the coding software may appear abbreviated, or result in slightly different terminology. Coded By: GITA BARTLETT Date Saved: 05/31/2014 01:13 pm Source: [facility] [place] Document Id: [id number] documented in this encounter Plan of Treatment Upcoming Encounters Date Type Specialty Care Team Description 02/02/2022 Immunization Family Medicine 02/12/2022 Office Visit Dermatology Lacy Dykes M.D. [address] [place], [place] [phone] (Lisha mccann) 02/22/2022 Office Visit Orthopedic Surgery Kimberlyn Mayer APRN, C.N.P., D.N.P. [address] [place], [place] [phone] (Wo rk) 03/12/2022 Diagnostic Otorhinolaryngology Blanka Carranza, C.N.P. [address] [place] [address] Aleena Hassan Au.D. [address] [place] [address] documented as of this encounter Visit Diagnoses Not on filedocumented in this encounter Additional Health Concerns Assessment Noted Time PHQ-9 Depression Total Score: 1 04/13/2013 11:36 AM CS T documented as of this encounter
--- OUTSIDE RECORDS SUMMARY | 2022-01-31 09:41 | XMS_ITS | Encounter Summary ---
:1955 Author Organization [facility] Address [address] [place] [address] Care Team Providers Name Role Phone Unavailable Primary Care Provider Unavailable Encounter Details Date Type Department Care Team Description 09/07/2014 Hospital Encounter HX [facility] Kimberlyn Mayer, JOSE DANIEL, C.N.P., D. N.P. [address] [place] [address] (Wo rk) Social History Tobacco [...] you attend gnosticism or Patient refused 2021 confucianist services? 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 encounter Last Filed Vital Signs Vital Sign Reading Time Taken Comments Blood Pressure 126/74 09/07/2014 2:43 PM CDT Pulse 56 09/07/2014 2:43 PM CDT Temperature - - Respiratory Rate 16 09/07/2014 2:37 PM CDT Oxygen Saturation - - Inhaled Oxygen Concentration - - Weight 69.9 kg (154 lb 1.6 oz) 09/07/2014 2:43 PM CDT Height 161 cm (5' 3.39) 09/07/2014 2:43 PM CDT Body Mass Index 26.97 09/07/2014 2:43 PM CDT documented in this encounter Medications at Time of Discharge Medication Sig Dispensed Refills Start Date End Date B.ANI/L.ACI/L.BERNICE/L.PLAN/L Take 1 capsule by 0 .TASH (PROBIOTIC FORMULA mouth daily. ORAL) MULTIVITAMIN ORAL Take by mouth daily. 0 05/02/19 15 documented as of this encounter Progress Notes Kimberlyn Mayer, JOSE DANIEL, C.N.P. - 09/07/2014 2:20 PM CDT [id number] CHIEF COMPLAINT/REASON FOR VISIT 1. Follow up back pain. 2. Irritable bowel syndrome. HISTORY OF PRESENT ILLNESS 1. Follow up back pain. Priscilla is a very pleasant 59-year-old, who just returned from [facility] stating that she was treated before leaving for significant back pain. She was [facility] anddiagnosed with spondylosis noted to be of minor degree. Her symptoms are much improved and she feelsvery satisfied with her visit there as well as her current care. She does note that if she is sitting for long periods of time that will aggravate it at times. She does have some exercises and some yoga that does help that. 2. Irritable bowel syndrome. Patient has had this for many, many years. She states that while she was in [place] she met a GI doctor who recommended that she sees GI. She last had a colonoscopy 2 or 3 years ago which was considered to be normal. Patient continues to be symptomatic. She has tried changing her diet by decreasing her roughage and discontinuing caffeine and trying to limit coffee. Despitethat, continues to have these explosive diarrhea episodes at times. MEDICATIONS Please see the EMR for details. NEW RECONCILED MEDICATION: Citrucel on a daily basis. ALLERGIES Please see the EMR for those details. SYSTEMS REVIEW Patient denies any weight changes. She denies any particular abdominal pain. Does have some crampingprior to the significant diarrhea episodes. PHYSICAL EXAMINATION VITAL SIGNS: Her blood pressure 126/74 with a pulse of 58. GENERAL: Patient appears nondistressed. SKIN: Warm and dry. No additional physical examination performed. IMPRESSION/REPORT/PLAN 1. Back pain and spondylosis well controlled on current regimen. Patient is very happy with her visit with the [facility] and will continue to do their recommendations. 2. Irritable bowel syndrome. Patient would like to see extractor and wringer operator. I think at this point, she needs to take care of some of the easier causes of this. First of all, she could have an SSRI colitis, it was not shown on her last colonoscopy however. We will decrease her Celexa to 10 mg by mouth daily for a month and then discontinue it and she will report if she has any need for that or if she is noticing any symptoms. Also, we will increase her fiber intake by having her start Citrucel on a regular basis. Bulking of that stool hopefully will help those symptoms. Patient agrees with that. If she does fail despite those two changes, would consider a Gastroenterology consult if patient continues to want that. Ready to learn. No apparent learning barriers were identified. Learning preferences include listening. Explained diagnosis and treatment plan. Patient/Child/Caregiver expressed understanding of the content. Brooks Contreras/felipe Electronically Signed By: KIMBERLYN MAYER RN, ELECTRICIAN APPRENTICE POWERHOUSE On: 09/08/2014 12:46 PM Source: [facility] Document Id: [id number] documented in this encounter Miscellaneous Notes Miscellaneous - Conversion, Historical Provider Ser - 12/05/2015 3:41 PM CDT *General Message/existing act/stabavulsion From: KAITLYNN BURNETT Sent: 12/05/2015 15:41:45 CDT Subject: *General Message/existing act/stabavulsion I called insurance ([facility]), [id number] do not require PA. I asked about the procedure that wasdone last year, that I was told PA was not recommended but they denied the payment. The rep with stated, the reason why it was denied because it was not medically necessary. I was asked to mail (no fax) another appeal and attached medical records. Mailed to [facility] [address] [address] [facility] [address]. Source: [facility] POWERCHART Document Id: [id number] Miscellaneous - Jessie Demarco - 02/17/2015 2:52 PM CST Quality Measure - PHQ9 Document Contains Addenda Addendum by OBED PEREIRA LPN on 20 February 2015 08:03:40 HOTEL CUSTODIAN From: OBED PEREIRA LPN To: JESSIE DEMARCO; Sent: 02/20/2015 08:03:40 HOTEL CUSTODIAN Subject: RE: Quality Measure - PHQ9 phq9 mailed to patient From: JESSIE DEMARCO To: OBED PEREIRA LPN; Sent: 02/17/2015 14:52:13 HOTEL CUSTODIAN Subject: Quality Measure - PHQ9 This patient has been screened for quality measure compliance. The patient is due for a PHQ9 update and does not currently have any upcoming office visits scheduled. The Patients previous PHQ9 results were: Date: 05/02/2014 Score: 1 Thank you Source: [facility] POWERCHART Document Id: [id number] Miscellaneous - Kimberlyn Mayer, JOSE DANIEL, C.N.P. - 09/07/2014 3:04 PM CDT Ambulatory Patient Summary [address] [id number] Visit Information Name: MEMOCOSMOPRISCILLA COSMO [facility] Number: [id number] Current Date: 09/07/2014 15:04:20 Physicians Attending Provider: KIMBERLYN MAYER RN, ELECTRICIAN APPRENTICE POWERHOUSE Primary Care Provider: KIMBERLYN MAYER RN, ELECTRICIAN APPRENTICE POWERHOUSE MEMO, PRISCILLA COSMO has been given the following list [...] tablet) 0.5 Tablet(s), Oral, once a day for 1 month then stop This is a CHANGE conjugated estrogens topical (conjugated estrogens 0.625 mg/g vaginal cream with applicator) See Instructions 1 gm Vaginal 3 times weekly PM EPINEPHrine (EpiPen Auto-Injector 0.3 mg injectable kit) See Instructions Twin injector epipen famciclovir (Famvir 500 mg oral tablet) 1 Tablet(s), Oral, every 8 hours at onset of cold sore x 1day. levothyroxine (Synthroid 137 mcg (0.137 mg) oral tablet) 1 Tablet(s), Oral, once a day NYDIA- No generic please lidocaine topical (Lidoderm 5% topical film) 1 patch(es), Topical, once a day Apply to intact skin and remove patch after a maximum of 12 hr of application within a 24 hr period liothyronine (liothyronine 5 mcg oral tablet) 1 Tablet(s), Oral, once a day methylcellulose (Citrucel 2 g/19 g oral powder for reconstitution) 2 gm, Oral, once a day New Misc Prescription (Misc Prescription) See Instructions Testost-versa 4% apply 1/4 teaspoon daily multivitamin (multivitamin) Oral, once a day ondansetron (Zofran ODT 4 mg oral tablet, disintegrating) 1 Tablet(s), Oral, every 8 hours as neededfor Nausea progesterone (progesterone 200 mg oral capsule) 1 cap, Oral, two times a day valsartan (Diovan 40 mg oral tablet) 2 Tablet(s), Oral, once a day zolpidem (Ambien 10 mg oral tablet) 1 Tablet(s), Oral, once a day (at bedtime) 0.5 tab PO Stop Taking the Following Medications: Medication list as of 09-07-14 15:04 Attention: If you have any medications at [...] emergency. Electronically Signed By: KIMBERLYN MAYER RN, ELECTRICIAN APPRENTICE POWERHOUSE Signed On:07-SEP-2014 15:04:09 Your Allergies & Intolerances Substance Reaction Symptoms [...] thumb Radiculopathy Lumbar 5 R Active 08/08/2014 Your Upcoming Appointments Date Time Location Provider No Appointments found Attention: Contact your local Clinic if further appointment detail needed. Your Goals/Additional instructions: Source: [facility] POWERCHART Document Id: [id number] Miscellaneous - Kimberlyn Mayer APRN, C.N.P. - 09/07/2014 3:04 PM CDT Ambulatory Discharge Medication List [address] [id number] Visit Information Name: MEMOCOSMOPRISCILLAAMANDEEP WILBURN [facility] Number: [id number] Visit Date: 09/07/2014 15:04:19 Attending Provider: KIMBERLYN MAYER RN, ELECTRICIAN APPRENTICE POWERHOUSE Primary Care Provider: KIMBERLYN MAYER RN, ELECTRICIAN APPRENTICE POWERHOUSE PRISCILLA HAMPTON COSMO has been given the [...] tablet) 0.5 Tablet(s), Oral, once a day for 1 month then stop This is a CHANGE conjugated estrogens topical (conjugated estrogens 0.625 mg/g vaginal cream with applicator) See Instructions 1 gm Vaginal 3 times weekly PM EPINEPHrine (EpiPen Auto-Injector 0.3 mg injectable kit) See Instructions Twin injector epipen famciclovir (Famvir 500 mg oral tablet) 1 Tablet(s), Oral, every 8 hours at onset of cold sore x 1day. levothyroxine (Synthroid 137 mcg (0.137 mg) oral tablet) 1 Tablet(s), Oral, once a day NYDIA- No generic please lidocaine topical (Lidoderm 5% topical film) 1 patch(es), Topical, once a day Apply to intact skin and remove patch after a maximum of 12 hr of application within a 24 hr period liothyronine (liothyronine 5 mcg oral tablet) 1 Tablet(s), Oral, once a day methylcellulose (Citrucel 2 g/19 g oral powder for reconstitution) 2 gm, Oral, once a day New Misc Prescription (Misc Prescription) See Instructions Testost-versa 4% apply 1/4 teaspoon daily multivitamin (multivitamin) Oral, once a day ondansetron (Zofran ODT 4 mg oral tablet, disintegrating) 1 Tablet(s), Oral, every 8 hours as neededfor Nausea progesterone (progesterone 200 mg oral capsule) 1 cap, Oral, two times a day valsartan (Diovan 40 mg oral tablet) 2 Tablet(s), Oral, once a day zolpidem (Ambien 10 mg oral tablet) 1 Tablet(s), Oral, once a day (at bedtime) 0.5 tab PO Stop Taking the Following Medications: Medication list as of 09-07-14 15:04 Attention: If you have any medications at [...] emergency. Electronically Signed By: KIMBERLYN MAYER RN, ELECTRICIAN APPRENTICE POWERHOUSE Signed On:07-SEP-2014 15:04:09 Additional Information: Source: [facility] POWERCHART Document Id: [id number] Miscellaneous - Meredith Tobias L.P.N. - 09/07/2014 2:43 PM CDT Ambulatory Vitals Height Weight Ambulatory Vitals Height Weight Entered On: 09/07/2014 14:43 CDT Performed On: 09/07/2014 14:43 CDT by MEREDITH TOBIAS LPN Vitals/Ht/Wt Actual Weight : 69.9 kg(Converted to: 154 lb 2 oz) Weight Source : Standing scale Dosing Weight Clinic : 69.9 kg Clinic BSA : 1.77 Body Mass Index : 26.97 kg/m2 MEREDITH TOBIAS LPN - 09/07/2014 14:44 CDT Peripheral Pulse Rate : 56 /min (LOW) Systolic Blood Pressure : 126 mmHg Diastolic Blood Pressure : 74 mmHg NIBP Mean : 91 mmHg BP Location : Left upper extremity Blood Pressure Cuff Size : Large Height : 161 cm(Converted to: 5 ft 3 inch(es), 63 inch(es)) MEREDITH TOBIAS LPN - 09/07/2014 14:43 CDT Source: [facility] [employer] Document Id: [id number] CDT!7 Miscellaneous - Meredith Tobias, L.P.N. 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 Ambulatory Intake Additional Information : Discuss IBS. Discuss spine appointment in [place]. Temperature Core : 37.2 DegC(Converted to: 99.0 DegF) Peripheral Pulse Rate : 58 /min (LOW) Respiratory Rate : 16 /min Systolic Blood Pressure : 144 mmHg (HI) Diastolic Blood Pressure : 76 mmHg NIBP Mean : 99 mmHg BP Location : Left upper extremity Blood Pressure Cuff Size : Large SpO2 : 99 % Oxygen Therapy : Room air Height : 161 cm(Converted to: 5 ft 3 inch(es), 63 inch(es)) Weight Source : Standing scale MEREDITH TOBIAS LPN - 09/07/2014 14:37 CDT General Info Information Given By : Patient Preferred Communication Mode : Verbal Languages : Greenlandic Is Patient Female and 13-50 no hysterectomy : No MEREDITH TOBIAS [facility] - 09/07/2014 14:37 CDT Subjective Pain Symptoms : Yes MEREDITH TOBIAS [facility] - 09/07/2014 14:37 CDT Pain Scale Pain Scale Verbal 0-10 : Open MEREDITH TOBIAS [facility] - 09/07/2014 14:37 CDT Pain Pain Assessment Grid Pain 1 Location : Lower back Intensity : 3 MEREDITH TOBIAS [facility] - 09/07/2014 14:37 CDT Dependent Habits Tobacco Use/Currently Using : No Exposure to Tobacco Smoke : Care provider denies smoking in home, Other: former Smoking Status : Former smoker MEREDITH TOBIAS [facility] - 09/07/2014 14:37 CDT Tobacco Use Grid Type : Cigarettes MEREDITH TOBIAS [facility] - 09/07/2014 14:37 CDT Alcohol Use : Yes MEREDITH TOBIAS [facility] 09/07/2014 14:37 CDT Caffeine Use Grid Caffeine Use : Current Type : Coffee Frequency : Weekly Amount : 2-3/wk MEREDITH TOBIAS [facility] - 09/07/2014 14:37 CDT Recreational Drug Use Grid Drug Use : None MEREDITH TOBIAS [facility] - 09/07/2014 14:37 CDT Allergy (As Of: 09/07/2014 14:42:17 CDT) Allergies (Active) Daptacel (DTaP) Estimated Onset Date: Unspecified ; Created By: HARMEET LOPEZ LPN; Reaction Status: Active ; Category: Drug ; Substance: Daptacel (DTaP) ; Type: Allergy ; Updated By: HARMEET LOPEZ LPN; Reviewed Date: 09/07/2014 14:35 CDT diphtheria/pertussis,acel/tetanus/polio Comments: Comment 1: DTAP-IPV VACCINE ; Created By: Contributor_system [facility]; Reaction Status: Active ; Category: Drug ; Substance: diphtheria/pertussis,acel/tetanus/polio ; Type: Unknown ; Updated By: Contributor_system [facility]; Reviewed Date: 09/07/2014 14:35 CDT Other Environmental Comments: Comment 1: SEASONAL ALLERGIES ; Created By: Contributor_system, [facility]; Reaction Status: Active ; Category: Environment ; Substance: Other Environmental ; Type: Unknown ; Updated By: Contributor_system, [facility]; Reviewed Date: 09/07/2014 14:35 CDT Pollen Comments: Comment 1: POLLEN EXTRACT ; Created By: Contributor_system, [facility]; Reaction Status: Active ; Category: Drug ; Substance: Pollen ; Type: Unknown ; Updated By: Contributor_system, [facility]; Reviewed Date: 09/07/2014 14:35 CDT Synvisc Estimated Onset Date: Unspecified ; Created By: TIERA GUZMAN; Reaction Status: Active ; Category: Drug ; Substance: Synvisc ; Type: Allergy ; Severity: Moderate ; Updated By: TIERA GUZMAN; Reviewed Date: 09/07/2014 14:35 CDT WASP/HORNET VENUM Estimated Onset Date: Unspecified ; Created By: CONSTANCE NAJERA RN; Reaction Status: Active ; Category: Drug ; Substance: WASP/HORNET VENUM ; Type: Allergy ; Severity: Severe ; Updated By: CONSTANCE NAJERA RN; Reviewed Date: 09/07/2014 14:35 CDT ID Screen Drug Resistant Organism : No Recent Travel Location : [place] Symptoms/Risk Factors : No symptoms/risk factors Travel Within Last 21 Days : Yes Contact with someone with Ebola : No MEREDITH TOBIAS HOT PACKER - 09/07/2014 14:37 CDT Source: [facility] POWERCHART Document Id: [id number] CDT!53 documented in this encounter Plan of Treatment Upcoming Encounters Date Type Specialty Care Team Description 02/02/2022 Immunization Family Medicine 02/12/2022 Office Visit Dermatology Lacy Dykes M.D. [address] [place], [place] [phone] (Wo rk) 02/22/2022 Office Visit Orthopedic Surgery Kimberlyn Mayer, JOSE DANIEL C.N.P., D.N.P. [address] [facility] [place], [place] [phone] (Wo rk) 03/12/2022 Diagnostic Otorhinolaryngology Blanka Carranza C.N.P. [address] [place], [place] [phone] Aleena Hassan Au.D. [address] [place] [address] documented as of this encounter Visit Diagnoses Not on filedocumented in this encounter Additional Health Concerns Assessment Noted Time PHQ-9 Depression Total Score: 1 04/13/2013 11:36 AM CS T documented as of this encounter
--- OUTSIDE RECORDS SUMMARY | 2022-01-31 09:41 | XMS_ITS | Encounter Summary ---
:1955 Author Organization [facility] Address [address] [place] [address] Care Team Providers Name Role Phone Unavailable Primary Care Provider Unavailable Encounter Details Date Type Department Care Team Description 06/17/2014 Hospital Encounter HX [facility] Thomas Casas M.D. [address] [place] [address] (Wo rk) Social History Tobacco Use Types Packs/Day Years Used Date Smoking Tobacco: Never Assessed Alcohol Habits Answer Date Recorded How often do you have a drink containing 4 or more times a w [place] 07/30/2021 alcohol? How many drinks containing alcohol [...] you attend sikh or Patient refused 2021 temple services? 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 ORAL) MULTIVITAMIN ORAL Take by mouth daily. 0 05/02/19 15 documented as of this encounter Consult Notes Thomas Casas M.D. - 06/17/2014 2:51 PM CDT [id number] CHIEF COMPLAINT/REASON FOR VISIT Bilateral lower extremity symptomatic varicose veins. HISTORY OF PRESENT ILLNESS Priscilla is a 58-year-old female seen today for varicose veins. She has had the veins for several years. They are present on both legs but worse on the <__IM_1: DISCREPANCY__> left side than the <__IM_2: DISCREPANCY__> left. She has symptoms of mild pain and burning. These tend to be worse at the end of the day. She does not have significant trouble with swelling. She has had no prior DVT, superficial thrombophlebitis or venous ulcers. She has had prior sclerotherapy for spider veins. Otherwise no treatment for varicose veins. She denies a [facility] PAST MEDICAL/SURGICAL HISTORY Reviewed in the [facility] system. MEDICATIONS Reviewed in the [facility] system. ALLERGIES Reviewed. SOCIAL HISTORY Patient works for [employer]. She does a lot of traveling with her job. SYSTEMS REVIEW Positive for varicose vein symptoms. Otherwise negative. PHYSICAL EXAMINATION GENERAL: Priscilla is a pleasant female in no distress. HEENT: Head: Normocephalic, atraumatic. Eyes: Sclerae anicteric. Mouth reveals moist mucous membranes. EXTREMITIES: Her legs shows varicosities on her right lateral thigh and a few on the medial calf. Noswelling of the right leg. On the left, she has a similar location of veins with medial, anterior and lateral thigh. Also medial calf. The severity of the veins is more so on the left side. Both of herfeet are warm and well perfused. IMPRESSION/REPORT/PLAN A 58-year-old female with symptomatic bilateral lower extremity varicose veins with symptoms consisting of pain and burning. PLAN: 1. I discussed with Priscilla that I would like to get her started in knee-high compression stockings.She was fitted for these and given a pair of these in clinic today. 2. We will get her set up for a bilateral lower extremity venous incompetency ultrasound. Once results of this are available I will contact her with these results and a treatment plan will be formulated. We did discuss both endovenous ablation and superficial stab avulsion phlebectomy in the office today. She understands this plan well and has no questions. I will contact her when her ultrasound is complete. Thomas Casas M.D./felipe cc: Brooks Contreras [facility] in [address] [place] [address] Electronically Signed By: THOMAS CASAS MD On: 06/20/2014 08:20 AM Source: [facility] MHSDOLBEYNONRADSYS Document Id: [id number] documented in this encounter Miscellaneous Notes Miscellaneous - Thomas Casas M.D. - 06/17/2014 3:18 PM CDT [facility] [address] [place] [id number] Visit Information Name: PRISCILLA HAMPTON [facility] Number: [id number] Current Date: 06/17/2014 15:18:37 Physicians Attending Provider: THOMAS CASAS MD Primary Care Provider: KIMBERLYN MAYER RN, SALES ANALYTICS MANAGER PRISCILLA HAMPTON has been given the following [...] tablet) 1 Tablet(s), Oral, once a day conjugated estrogens topical (conjugated estrogens 0.625 mg/g [...] tablet) 2 Tablet(s), Oral, once a day Stop Taking the Following Medications: Medication list as of 06-17-14 15:18 Attention: If you have any medications at home that are not on this list, DO NOT take them until youcontact your provider for clarification. Give a copy of your medication list to your primary care provider. Update your medication list any time medications or doses are changed and carry your medication list at all times in case of emergency. Electronically Signed By: THOMAS CASAS MD Signed On:17-JUN-2014 15:18:22 Your Allergies & Intolerances Substance Reaction Symptoms [...] appointment detail needed. Your Goals/Additional instructions: Source: [facility] POWERCHART Document Id: [id number] Miscellaneous - Thomas Casas M.D. - 06/17/2014 3:18 PM CDT Ambulatory Discharge Medication List [facility] [address] [place] [id number] Visit Information Name: MEMO PRISCILLAAMANDEEP WILBURN [facility] Number: [id number] Visit Date: 06/17/2014 15:18:35 Attending Provider: THOMAS CASAS MD Primary Care Provider: KIMBERLYN MAYER RN, SALES ANALYTICS MANAGER MEMO PRISCILLA COSMO has been given the following [...] tablet) 1 Tablet(s), Oral, once a day conjugated estrogens topical (conjugated estrogens 0.625 mg/g [...] tablet) 2 Tablet(s), Oral, once a day Stop Taking the Following Medications: Medication list as of 06-17-14 15:18 Attention: If you have any medications at home that are not on this list, DO NOT take them until youcontact your provider for clarification. Give a copy of your medication list to your primary care provider. Update your medication list any time medications or doses are changed and carry your medication list at all times in case of emergency. Electronically Signed By: THOMAS CASAS MD Signed On:17-JUN-2014 15:18:22 Additional Information: Source: [facility] POWERCHART Document Id: [id number] documented in this encounter Plan of Treatment Upcoming Encounters Date Type Specialty Care Team Description 02/02/2022 Immunization Family Medicine 02/12/2022 Office Visit Dermatology Lacy Dykes M.D. [address] [place], [place] [phone] (Wo rk) 02/22/2022 Office Visit Orthopedic Surgery Kimberlyn Mayer APRN, C.N.P., D.N.P. [address] [place], [place] [phone] (Wo rk) 03/12/2022 Diagnostic Otorhinolaryngology Blanka Carranza, C.N.P. [address] [place], [place] [phone] Aleena Hassan Au.D. [address] [place] [address] documented as of this encounter Visit Diagnoses Not on filedocumented in this encounter Additional Health Concerns Assessment Noted Time PHQ-9 Depression Total Score: 1 04/13/2013 11:36 AM CS T documented as of this encounter
--- OUTSIDE RECORDS SUMMARY | 2022-01-31 09:41 | XMS_ITS | Encounter Summary ---
:1955 Author Organization [facility] Address [address] [place] [address] Care Team Providers Name Role Phone Unavailable Primary Care Provider Unavailable Encounter Details Date Type Department Care Team Description 12/22/2014 Hospital Encounter HX [facility] Patience Marc M.D. [address] [address] (Wo rk) Social History Tobacco Use Types [...] you attend judaism or Patient refused 2021 yazidism services? 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 ORAL) MULTIVITAMIN ORAL Take by mouth daily. 0 05/02/19 15 documented as of this encounter Progress Notes Patience Marc M.D. - 12/22/2014 10:24 AM CDT [id number] CHIEF COMPLAINT/REASON FOR VISIT Skin check. HISTORY OF PRESENT ILLNESS Ms. Hampton is a very pleasant 59-year-old female who comes today for a complete skin examination. Denies anything new, growing or changing or any particular cutaneous concerns. She reportsliving in [place] in the past and having regular skin checks. She also reports a history of tanning,not as frequent in the last couple of years. Denies any personal or family history of melanoma. Her parents had a history of most likely a nonmelanoma skin cancer. Nowadays she is more careful under the sun using her sunscreen. She comes today for further evaluation. ALLERGIES Wasps, Synvisc, Daptacel, diphtheria, pertussis, tetanus, polio, environmental and some pollen. MEDICATIONS Ambien. Celexa. Citrucel. Conjugated estrogen. Diovan. EpiPen. Famvir. Lidoderm topical film. Liothyronine. Multivitamins. Probiotics. Progesterone capsule. Synthroid. Zofran. PHYSICAL EXAMINATION GENERAL: She is alert, in no acute distress, in a pleasant and cooperative mood. SKIN: A skin examination was performed of the scalp and body hair, face, neck, chest (including breast and axillae), abdomen, back, right upper extremity, right lower extremity, left upper extremity, left lower extremity, in addition to inspection and palpation of the digits and nails. It is notable for a Agee skin type III. Involving her torso, upper and lower extremities she has some pigmented macules and papules consistent with melanocytic nevi. Involving the right upper back there is a brownish plaque measuring about 1.5 x 1.3 cm in diameter, homogeneous color, consistent with melanocytic nevi and it is the largest that she has over her back. She has scattered erythematous macules consistent with shelley angiomas and a few stuck-on papules and plaques consistent with seborrheic keratosis. No concerning lesion for skin cancer on exam today. IMPRESSION/REPORT/PLAN 1. Melanocytic nevi. The ABCDE criteria for moles and melanoma were reviewed with the patient. None of the patient's nevi reach the clinical threshold for biopsy. I recommend continued sun protection, self-skin examinations, and observation. Should any of the patient's nevi change in size, color, texture, shape, or develop symptoms, such as itching or bleeding, I recommend an immediate return visit for reassessment. 2. Seborrheic keratosis and shelley angiomas. The benign nature of this skin lesion was discussed with the patient. No treatment is required. I recommend continued observation. Should symptoms or changes develop related to this condition, I would recommend a return visit for reassessment. 3. Skin cancer screening. No concerning lesion for skin cancer on exam today. Reassurance provided. Discussed the importance of photo avoidance and photo protection. Yearly skin check was advised. All questions answered. PATIENT EDUCATION: Discussed skin cancer and treatment in detail along with consent with risks, benefits, and alternatives. The ABCDEs of melanoma and moles were reviewed with the patient, and educational material was given. Sun protection, monthly self-skin examination, and routine followup annually was recommended. DIAGNOSES 1. Melanocytic nevi. 2. Seborrheic keratosis and shelley angiomas. 3. Skin cancer screening. No concerning lesion for skin cancer on exam today. Happy to see her as needed. Patience Pena M.D./felipe Electronically Signed By: PATIENCE MARC MD On: 01/22/2015 12:45 PM Modified by and Electronically Signed by: PATIENCE MARC MD On: 01/22/2015 12:45 PM Source: [facility] MHSDOLBEYNONRADSYS Document Id: [id number] documented in this encounter Nursing Notes Deanne Siu L.P.NPhil - 12/22/2014 11:10 AM CDT Dermatology Intake Dermatology Intake Entered On: 12/22/2014 11:10 CDT Performed On: 12/22/2014 11:10 CDT by DEANNE SIU LPN General Accompanied By : Alone Chief Complaint : skin check General Health Assessment : Excellent DEANNE SIU LPN - 12/22/2014 11:10 CDT Dermatology Intake History Pain Symptoms : No DEANNE SIU LPN - 12/22/2014 11:10 CDT Dependent Habits Tobacco Use/Currently Using : No Exposure to Tobacco Smoke : Care provider denies smoking in home, Other: former Smoking Status : Former smoker DEANNE SIU LPN - 12/22/2014 11:10 CDT Tobacco Use Grid Type : Cigarettes DEANNE SIU LPN - 12/22/2014 11:10 CDT Caffeine Use Grid Caffeine Use : Current Type : Coffee Frequency : Weekly Amount : 2-3/wk DEANNE SIU LPN - 12/22/2014 11:10 CDT Recreational Drug Use Grid Drug Use : None DEANNE SIU LPN - 12/22/2014 11:10 CDT Source: [facility] POWERInvenra Document Id: [id number]!23 documented in this encounter Miscellaneous Notes Miscellaneous - Patience Marc M.D. - 12/23/2014 8:33 AM CDT Ambulatory Patient Summary [facility] [address], [address] [place], [place] [id number] Visit Information Name: MEMO PRISCILLA COSMO [facility] Number: [phone] Current Date: 12/23/2014 08:33:58 Physicians Attending Provider: PATIENCE MARC MD Primary Care Provider: KIMBERLYN MAYER RN, RN TESTING EMMOCOSMOPRISCILLA COSMO has been given the following list [...] a day for 1 month then stop conjugated estrogens topical (conjugated estrogens 0.625 mg/g [...] reconstitution) 2 gm, Oral, once a day Misc Prescription (Misc [...] the Following Medications: Medication list as of 12-23-14 08:33 Attention: If you have any medications at home that are not on this list, DO NOT take them until youcontact your provider for clarification. Give a copy of your medication list to your primary care provider. Update your medication list any time medications or doses are changed and carry your medication list at all times in case of emergency. Electronically Signed By: Signed On: Your Allergies & Intolerances Substance Reaction Symptoms [...] Your Upcoming Appointments Date Time Location Provider 02/15/2015 10:30 [facility] Surgery Yessenia ZAVALA, Thomas Daniel Attention: Contact your local Clinic if further [...] if you dont have one. Go to [email or web address] and click on Create Your Account. Then, follow the directions to complete the online form. Youll be asked for your [facility] number which you can find at the top of this document. Your Goals/Additional instructions: Source: [facility] POWERCHART Document Id: [id number] Miscellaneous - Patience Marc M.D. - 12/23/2014 8:33 AM CDT Ambulatory Discharge Medication List [address], [address] [place], [place] [id number] Visit Information Name: PRISCILLA HAMPTON [facility] Number: [phone] Visit Date: 12/23/2014 08:33:57 Attending Provider: PATIENCE MARC MD Primary Care Provider: KIMBERLYN AMYER RN, RN TESTING PRISCILLA HAMPTON has been given the following [...] a day for 1 month then stop conjugated estrogens topical (conjugated estrogens 0.625 mg/g [...] reconstitution) 2 gm, Oral, once a day Misc Prescription (Misc [...] the Following Medications: Medication list as of 12-23-14 08:33 Attention: If you have any medications at home that are not on this list, DO NOT take them until youcontact your provider for clarification. Give a copy of your medication list to your primary care provider. Update your medication list any time medications or doses are changed and carry your medication list at all times in case of emergency. Electronically Signed By: Signed On: Additional Information: Source: [facility] POWERCHART Document Id: [id number] documented in this encounter Plan of Treatment Upcoming Encounters Date Type Specialty Care Team Description 02/02/2022 Immunization Family Medicine 02/12/2022 Office Visit Dermatology Lacy Dykes M.D. [address] [place], [place] [phone] ( rk) 02/22/2022 Office Visit Orthopedic Surgery Kimberlyn Mayer APRN C.N.P., D.N.P. [address] [place], [place] [phone] ([facility]) 03/12/2022 Diagnostic Otorhinolaryngology Blanka Carranza, C.N.P. [address] [place], [place] [phone] Aleena Hassan Au.D. [address] [place] [address] documented as of this encounter Visit Diagnoses Not on filedocumented in this encounter Additional Health Concerns Assessment Noted Time PHQ-9 Depression Total Score: 1 04/13/2013 11:36 AM CS T documented as of this encounter
--- OUTSIDE RECORDS SUMMARY | 2022-01-31 09:41 | XMS_ITS | Encounter Summary ---
:1955 Author Organization [facility] Address [address] [place] [address] Care Team Providers Name Role Phone Unavailable Primary Care Provider Unavailable Encounter Details Date Type Department Care Team Description 03/22/2017 Abstract Department of Neurological Provider, [facility] orical Surgery in [address] [phone] Social History Tobacco Use Types Packs/Day Years Used Date Smoking Tobacco: Former Alcohol Habits Answer Date Recorded How often do you have a drink containing 4 or more times a w [place] 07/30/2021 alcohol? How many drinks containing alcohol [...] you attend congregation or Patient refused 2021 faith services? 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 [address] [place], [place] [phone] ( rk) 02/22/2022 Office Visit Orthopedic Surgery Kimberlyn Alvarez APRN, C.N.P., D.N.P. [address] [place], [place] [phone] (Wo rk) 03/12/2022 Diagnostic Otorhinolaryngology Blanka Carranza, C.N.P. [address] [place] [address] Aleena Hassan Au.D. [address] [place] [address] documented as of this encounter Visit Diagnoses Not on filedocumented in this encounter Additional Health Concerns Assessment Noted Time PHQ-9 Depression Total Score: 2 04/22/2015 11:24 AM CS T documented as of this encounter
--- OUTSIDE RECORDS SUMMARY | 2022-01-31 09:41 | XMS_ITS | Encounter Summary ---
:1955 Author Organization [facility] Address [address] [place] [address] Care Team Providers Name Role Phone Unavailable Primary Care Provider Unavailable Encounter Details Date Type Department Care Team Description 10/24/2015 Hospital Encounter HX [facility] Luis Alexis M.D. [address] [place], [place] [address] (Wo rk) Social History [...] or relatives? How often do you attend protestant or Patient refused 2021 jewish services? 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 - 10/26/2015 5:22 AM CDT stable thyroid From: GILLIAN ALEXIS MD To: MARJAN HAMPTON Sent: 10/26/2015 05:22:26 CDT Subject: stable thyroid stable thyroid Results: Date Result Name Value Ref Range 10/24/2015 09:00 TSH 0.78 mIU/L (0.27 - 4.20) 10/24/2015 09:00 T4 Free-Havana 1.2 ng/dL (0.9 - 1.7 - ) Source: [facility] POWERCHART Document Id: [id number] Electronically signed by Conversion, [facility] Community Development Technician [id number] at 09/01/2016 1:38 PM CDT documented in this encounter Plan of Treatment Upcoming Encounters Date Type Specialty Care Team Description 02/02/2022 Immunization Family Medicine 02/12/2022 Office Visit Dermatology Lacy Dykes M.D. [address] [place], [place] [phone] (Wo rk) 02/22/2022 Office Visit Orthopedic Surgery Kimberlyn Alvarez APRN, C.N.P., D.N.P. [address] [place], [place] [phone] (Wo rk) 03/12/2022 Diagnostic Otorhinolaryngology Blanka Carranza, C.N.P. [address] [place] [address] Aleena Hassan Au.D. [address] [place] [phone] documented as of this encounter Procedures Procedure Name Priority Date/Time Associated Diagnosis Comme nts THYROID-STIMULATING Routine 10/24/2015 9:00 AM Re sults for this HORMONE-SENSITIVE CDT procedure are in (S-TSH) the results section. T4 (THYROXINE), Routine 10/24/2015 9:00 AM Result s for this FREE, S CDT procedure are i n the results section. documented in this encounter Results T4 (Thyroxine), Free (10/24/2015 9:00 AM CDT) P athologist Signature T4 (Thyroxine), 1.2 0.9 - 1.7 POWERCHART Free, S NGDL Comment: Test Performed by: [address] [address] Tableau Architect: Jerardo Qureshi II, M.D., Ph.D. Specimen (Source) Anatomical Collection Method Collection Time Re ceived Time Location / / Volume Laterality Blood 10/24/2015 9:00 AM CDT Gillian Alexis M.D. LAB BLOOD ADD-ON Performing Organization Address City/State/ZIP Code Phon e Number POWERCHART Thyroid-Stimulating Hormone-Sensitive (s-TSH) (10/24/2015 9:00 AM CDT) P athologist Signature TSH 0.78 0.27 - 4.20 POWERCHART (Thyrotropin) MIUL Specimen (Source) Anatomical Collection Method Collection Time Re ceived Time Location / / Volume Laterality Blood 10/24/2015 9:00 AM CDT Gillian Alexis M.D. LAB BLOOD ADD-ON Performing Organization Address City/State/ZIP Code Phon e Number POWERCHART documented in this encounter Visit Diagnoses Not on filedocumented in this encounter Additional Health Concerns Assessment Noted Time PHQ-9 Depression Total Score: 2 04/22/2015 11:24 AM CS T documented as of this encounter
--- OUTSIDE RECORDS SUMMARY | 2022-01-31 09:41 | XMS_ITS | Encounter Summary ---
:1955 Author Organization [facility] Address [address] [place] [address] Care Team Providers Name Role Phone Unavailable Primary Care Provider Unavailable Encounter Details Date Type Department Care Team Description 04/01/2017 Hospital Encounter Department of Emilie Anne, Pain Knee Right Radiology in Bryce Flores M.D. [address] [phone] Social History Tobacco Use Types Packs/Day Years Used Date Smoking Tobacco: Former Alcohol Habits Answer Date Recorded How often do you have a drink containing 4 or more times a w [place] 07/30/2021 alcohol? How many drinks containing alcohol [...] you attend sabianism or Patient refused 2021 jainism services? 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 [address] [place], [place] [phone] (Wo rk) 02/22/2022 Office Visit Orthopedic Surgery Kimberlyn Alvarez APRN, C.N.P., D.N.P. [address] [employer] [place], [place] [phone] (Wo rk) 03/12/2022 Diagnostic Otorhinolaryngology Blanka Carranza C.N.P. [address] [place], [place] [address] Aleena Hassan Au.D. [address] [employer] [facility] [place] [address] documented as of this encounter Procedures Procedure Name Priority Date/Time Associated Comments Diagnosis DX KNEE RIGHT RAD - Routine 04/01/2017 3:27 Pain Knee Right Results for this STANDING RIGHT 3 (most inpatients PM HEAD LOFT WORKER procedu re are in VIEWS and all the results outpatients) section. documented in this encounter Results DX Knee Right Standing Right 3 Views (04/01/2017 3:27 PM HEAD LOFT WORKER) Anatomical Region Laterality Modality Lower Extremity, Knee Right Digital Radiograph y Specimen (Source) Anatomical Collection Method Collection Time Re ceived Time Location / / Volume Laterality 04/01/2017 3:59 PM HEAD LOFT WORKER Impressions 04/01/2017 4:00 PM HEAD LOFT WORKER IMPRESSION: No comparison. Normal alignment. No radiographic eviden ce of acute fracture or dislocation. 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 Lateral joint s pace appears preserved. No erosive or osteolytic changes. Small suprapatellar knee joint effusion. No evidence of fracture or dislocation. Arthritic frank es also noted on the left. Narrative 04/01/2017 4:00 PM HEAD LOFT WORKER EXAM: DX KNEE RIGHT STANDING RIGHT 3 [...] es also noted on the left. Emilie [facility] [place] documented in this encounter Visit Diagnoses Diagnosis Pain Knee Right documented in this encounter Additional Health Concerns Assessment Noted Time PHQ-9 Depression Total Score: 2 04/22/2015 11:24 AM CS T documented as of this encounter
--- OUTSIDE RECORDS SUMMARY | 2022-01-31 09:41 | XMS_ITS | Encounter Summary ---
:1955 Author Organization [facility] Address [address] [place] [address] Care Team Providers Name Role Phone Unavailable Primary Care Provider Unavailable Encounter Details Date Type Department Care Team Description 12/13/2013 [facility], JOSE DANIEL, C.N.P., D.N.P. [address] [place], [place] [phone] (Wo rk) Social History Tobacco Use Types Packs/Day Years Used Date Smoking Tobacco: Never Assessed Alcohol Habits Answer Date Recorded How often do you have a drink containing 4 or more times a w [place] 07/30/2021 alcohol? How many drinks containing alcohol [...] you attend congregational or Patient refused 2021 methodist services? 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 ORAL) documented as of this encounter Miscellaneous Notes Miscellaneous - Philip Mayer, JOSE DANIEL, C.N.P. - 12/13/2013 12:01 PM CDT Normal Results Letter 13 December 2013 MARJAN HAMPTON [id number] [facility] [phone] Dear MARJAN HAMPTON, I am pleased to report that your results from the following diagnostic test(s) are satisfactory. Please follow up with us as we discussed during your visit or sooner if you have any concerns. If you have questions or concerns, please do not hesitate to call our office. Result Name Current Result Previous Result Normal Range Glucose Lvl (mg/dL) 96 12/13/2013 98 07/16/2013 70 - 139 Cholesterol (mg/dL) (H) 222 12/13/2013 0 - 200 Trig (mg/dL) 109 12/13/2013 9 - 150 HDL (mg/dL) (H) 81 12/13/2013 35 - 60 LDL Calculated (mg/dL) 118 12/13/2013 100 - 129 Chol/HDL Ratio 3 12/13/2013 Vitamin B12 Lvl-[place] (ng/L) 497 12/07/2013 180 - 914 - Folate [facility] (mcg/L) 8.3 12/07/2013 >=4.0 - Sincerely, PHILIP MAYER [address] [address] Electronic Signature Electronically Signed By: PHILIP MAYER RN, CLIENT OPERATIONS MANAGER On: 13 December 2013 This document has images extracted. Source: [facility] POWERCHART Document Id: [id number] Electronically signed by Conversion, [facility] Claim Clerk [id number] at 09/03/2016 11:41 AM CDT documented in this encounter Plan of Treatment Upcoming Encounters Date Type Specialty Care Team Description 02/02/2022 Immunization Family Medicine 02/12/2022 Office Visit Dermatology Lacy Dykes M.D. [address] [place], [place] [phone] (Wo rk) 02/22/2022 Office Visit Orthopedic Surgery Philip Mayer, JOSE DANIEL, C.N.P., D.N.P. [address] [place], [place] [phone] (Wo rk) 03/12/2022 Diagnostic Otorhinolaryngology Blanka Carranza, C.N.P. [address] [place], [place] [phone] Aleena Hassan Au.D. [address] [place] [address] documented as of this encounter Procedures Procedure Name Priority Date/Time Associated Diagnosis Comme nts LIPID PANEL, S Routine 12/13/2013 8:02 AM Results for this CDT procedure are i n the results section . GLUCOSE, P Routine 12/13/2013 8:02 AM Results f or this CDT procedure are i n the results section . documented in this encounter Results Glucose (12/13/2013 8:02 AM CDT) athologist Signature Glucose 96 70 - 139 POWERCHART MGDL Specimen (Source) Anatomical Collection Method Collection Time Re ceived Time Location / / Volume Laterality Blood 12/13/2013 8:02 AM CDT Philip Mayer APRN, C.N.P., D.N.P. LAB BLOOD ADD-ON Performing Organization Address City/[facility] Code Phon e Number POWERCHART (ABNORMAL) Lipid Panel (12/13/2013 8:02 AM CDT) P athologist Signature Cholesterol, 222 (H) 0 - 200 POWERCHART Total MGDL Comment: <200 mg/dL Desirable 200-239 mg/dL Borderline High >239 mg/dL High HX HDL 81 (H) 35 - 60 MGDL POWERCHART Comment: > 60 mg/dL Desirable 40 ? 60 mg/dL Low Risk <40 mg/dL Undesirable Triglycerides 109 9 - 150 MGDL POWERCHART Comment: <150 mg/dL Desirable 150-199 mg/dL Borderline High 200-499 mg/dL High > 499 Very High Calculated LDL 118 100 - 129 MGDL POWERCHART Total Cholesterol/HDL Ratio 3 PO WERCHART Specimen (Source) Anatomical Collection Method Collection Time Re ceived Time Location / / Volume Laterality Blood 12/13/2013 8:02 AM CDT Philip Mayer APRN, Kp.N.P., D.N.P. LAB BLOOD ADD-ON Performing Organization Address City/State/[facility] Code Phon e Number POWERCHART documented in this encounter Visit Diagnoses Not on filedocumented in this encounter Additional Health Concerns Assessment Noted Time PHQ-9 Depression Total Score: 1 04/13/2013 11:36 AM CS T documented as of this encounter
--- OUTSIDE RECORDS SUMMARY | 2022-01-31 09:41 | XMS_ITS | Encounter Summary ---
:1955 Author Organization [facility] Address [address] [place] [address] Care Team Providers Name Role Phone Unavailable Primary Care Provider Unavailable Encounter Details Date Type Department Care Team Description 08/08/2014 Hospital Encounter HX [facility] Kimberlyn Mayer, JOSE DANIEL, C.N.P., D. N.P. [address] [place] [address] (Wo rk) Social History Tobacco Use Types Packs/Day Years Used Date Smoking Tobacco: Never Assessed Alcohol Habits Answer Date Recorded How often do you have a drink containing 4 or more times a w [place] 07/30/2021 alcohol? How many drinks containing alcohol [...] or relatives? How often do you attend denominational or Patient refused 2021 catholic services? 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 ORAL) MULTIVITAMIN ORAL Take by mouth daily. 0 05/02/19 15 documented as of this encounter Progress Notes Kimberlyn Mayer, JOSE DANIEL, C.N.P. - 08/08/2014 8:11 AM CDT [id number] CHIEF COMPLAINT/REASON FOR VISIT Back pain with radiculopathy. HISTORY OF PRESENT ILLNESS Priscilla is a very pleasant 58-year-old female who comes in today for evaluation of back pain. Unfortunately she is in a time crunch as she is planning to go to [place] on the . She has been seen by Heather Zavaleta, chiropractor and has had an MRI in 2006, with a repeat MRI just this last week. [facility] [place] [facility] [address] Dani Padilla. Patient reports that she started having pain a couple of weeks ago without any known trauma. She was having difficulty driving with her right foot, progressive pain. This started in the buttock and progressed down her leg in the posterior aspect. She does have some numbness, but mostly pain is her main concern. Shehas been using a back brace, which has been somewhat helpful. The patient has a longstanding historyof lower lumbar pain, been relatively managed with conservative therapy, but she has had an increaseof symptoms 3 weeks ago unrelated to any new trauma. The pain was radicular in nature and intense glu teal involvement with some paresthesias along the lateral side all the way down to her foot. DIAGNOSTICS Her updated MRI shows significant L5-S1 disk bulging with full compression and transversing S1 nerveroot. This is new compared to her MRI of 2006, which is probably correlating with her symptoms. There is also a mention of stenosis at L4-5 associated with progressed grade 1 degenerative anterolisthesis. Please see the scanned report for updated versions of this. MEDICATIONS New reconciled medications: Lidoderm patches. Prednisone 40 mg by mouth daily for 7 days. ALLERGIES Wasp and hornet venom, Synvisc, DTaP, environmental allergies seasonal and pollen. SYSTEMS REVIEW Patient reports that she has had 2 episodes of angioedema unprovoked by food or any medications, starts in her left lower lip and progresses across. She did show me a picture of the most recent. She has only had this episode occur 2 separate occasions, 1st one she was watching a football game at home,the 2nd one was during a business meeting. She denies any tongue swelling, difficulties with swallowing. She did take some Benadryl and her symptoms resolved. She denies any fevers, chills, chest pain,shortness of breath. No changes in bowel or bladder habits. PAST MEDICAL/SURGICAL HISTORY Please see the EMR. SOCIAL HISTORY The patient is a non tobacco, and social use of alcohol. PHYSICAL EXAMINATION VITAL SIGNS: Her blood pressure is a little elevated at 134/74 with a pulse of 76. GENERAL: Patient appears nondistressed. MUSCULOSKELETAL: She definitely is somewhat jennifer with her right leg area. She has bilateral strength with no weakness identified. Her deep tendon reflexes are normal. IMPRESSION/REPORT/PLAN Progressive moderate disk degeneration L4-L5 with radiculopathy on the right side. PLAN: 1. I will go ahead and place her on prednisone 40 mg by mouth daily for 7 days. I did write a refillas she is going to [place]. I explained to her she cannot take that on a regular basis for penitentiary, that we would just try a burst to see if we could improve her symptoms. Also wrote her a prescriptionfor Lidoderm patches to be used for 12 hours only on an on-and-off basis in hopes to give her some pa in relief for her trip. She is going to be [facility] with [facility], which will be very helpful. 2. Angioedema. Patient has a history of having 2 episodes of angioedema and lip swelling. We will plan to have patient return for evaluation of that. She is to use Benadryl and make sure her EpiPen is available if necessary. Ready to learn. No apparent learning barriers were identified. Learning preferences include listening. Explained diagnosis and treatment plan. Patient/Child/Caregiver expressed understanding of the content. Mila ContrerasNGavino/felipe Electronically Signed By: KIMBERLYN MAYER RN, TRACK TEMPLATE MAKER On: 2014 07:55 PM Source: [facility] MHSDOLBEYNONRADSYS Document Id: [id number] documented in this encounter Miscellaneous Notes Miscellaneous - Wm Louis L.P.N. - 08/08/2014 8:14 AM CDT Adult Code Enforcement Officer Intake/History Adult Code Enforcement Officer Intake/History Entered On: 08/08/2014 8:18 CDT Performed On: 08/08/2014 8:14 CDT by WM LOUIS LPN Intake Temperature Core : 36.7 DegC(Converted to: 98.1 DegF) Peripheral Pulse Rate : 76 /min Respiratory Rate : 16 /min Heart Rhythm : Regular Systolic Blood Pressure : 134 mmHg Diastolic Blood Pressure : 74 mmHg NIBP Mean : 94 mmHg BP Location : Left upper extremity Blood Pressure Cuff Size : Regular WM LOUIS LPN - 08/08/2014 8:21 CDT Chief Complaint : Follow up review mri herniated disc Height : 161 cm(Converted to: 5 ft 3 inch(es), 63 inch(es)) PAGE LOUISSSKIMBERLY Leavitt LPN - 08/08/2014 8:14 CDT General Info Information Given By : Patient Preferred Communication Mode : Verbal Languages : Georgian Is Patient Female and 13-50 no hysterectomy : No WM LOUIS LPN - 08/08/2014 8:14 CDT Subjective Pain Symptoms : Yes WM LOUIS LPN - 08/08/2014 8:14 CDT Pain Scale Pain Scale Verbal 0-10 : Open WM LOUIS [facility] - 08/08/2014 8:14 CDT Pain Pain Assessment Grid Pain 1 Location : Lower back Laterality : Left Intensity : 6 WM LOUIS LPN 08/08/2014 8:14 CDT Dependent Habits Tobacco Use/Currently Using : No Exposure to Tobacco Smoke : Care provider denies smoking in home Smoking Status : Former smoker WM LOUIS LPN - 08/08/2014 8:14 CDT Tobacco Use Grid Type : Cigarettes WM LOUIS [facility] - 08/08/2014 8:14 CDT Alcohol Use : Yes WM LOUIS [facility] 08/08/2014 8:14 CDT Caffeine Use Grid Caffeine Use : Current Type : Coffee Frequency : Daily WM LOUIS LPN 08/08/2014 8:14 CDT Recreational Drug Use Grid Drug Use : None WM LOUIS SPIRAL WINDING MACHINE HELPER 08/08/2014 8:14 CDT ID Screen Drug Resistant Organism : No Travel Within Last 21 Days : No Contact with someone with Ebola : No WM LOUIS LPN 08/08/2014 8:14 CDT Source: [facility] POWERCHART Document Id: [id number] CDT!11 documented in this encounter Plan of Treatment Upcoming Encounters Date Type Specialty Care Team Description 02/02/2022 Immunization Family Medicine 02/12/2022 Office Visit Dermatology Lacy Dykes M.D. [address] [place] [phone] (Wo rk) 02/22/2022 Office Visit Orthopedic Surgery Kimberlyn Mayer APRN, C.N.P., D.N.P. [address] [place], [place] [phone] (Wo rk) 03/12/2022 Diagnostic Otorhinolaryngology Blanka Carranza C.N.PPhil [address] [place], [place] [id number] Aleena Hassan Au.D. [address] [place] [phone] documented as of this encounter Visit Diagnoses Not on filedocumented in this encounter Additional Health Concerns Assessment Noted Time PHQ-9 Depression Total Score: 1 04/13/2013 11:36 AM CS T documented as of this encounter
--- OUTSIDE RECORDS SUMMARY | 2022-01-31 09:41 | XMS_ITS | Encounter Summary ---
:1955 Author Organization [facility] Address [address] [place] [address] Care Team Providers Name Role Phone Unavailable Primary Care Provider Unavailable Encounter Details Date Type Department Care Team Description 08/21/2015 Hospital Encounter HX [facility] Lynn Nagy M.D. [address] [place], [place] [address] (Wo rk) Social History Tobacco Use Types Packs/Day Years Used Date Smoking Tobacco: Never Assessed Alcohol Habits Answer Date Recorded How often do you have a drink containing 4 or more times a w [place] 07/30/2021 alcohol? How many drinks containing alcohol [...] you attend episcopalian or Patient refused 2021 hindu services? 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 documented as of this encounter Last Filed Vital Signs Vital Sign Reading Time Taken Comments Blood Pressure - - Pulse - - Temperature - - Respiratory Rate - - Oxygen Saturation - - Inhaled Oxygen Concentration - - Weight - - Height 161 cm (5' 3.39) 08/21/2015 7:55 AM CDT Body Mass Index - - [...] of this encounter Miscellaneous Notes Miscellaneous - Conversion, Historical Provider Ser - 08/21/2015 11:59 PM CDT Coding Summary-Paper Based CODING DATE: 08/28/2015 FINAL [place] [facility] STATUS: * Discharged to Home or Self Care PAYOR: [employer] ADMIT DX: REASON FOR VISIT DX: FINAL DX: PRINCIPAL: Z12.31 Encounter for screening mammogram for malignant neoplasm of breast SECONDARY: PROCEDURES DOCTOR NAME DATE NOTE: The code number assigned matches the documented diagnosis and / or procedure in the patient's chart. However, the narrative phrase printed from the coding software may appear abbreviated, or result in slightly different terminology. Coded By: SAMEER GABRIEL Date Saved: 08/28/2015 02:31 pm Source: [employer] Document Id: [id number] documented in this encounter Plan of Treatment Upcoming Encounters Date Type Specialty Care Team Description 02/02/2022 Immunization Family Medicine 02/12/2022 Office Visit Dermatology Lacy Dykes M.D. [address] [place], [place] [phone] (Wo rk) 02/22/2022 Office Visit Orthopedic Surgery Kimberlyn Alvarez APRN, C.N.P., D.N.P. [address] [place], [place] [phone] (Wo rk) 03/12/2022 Diagnostic Otorhinolaryngology Blanka Carranza, C.N.P. [address] [place] [address] Aleena Hassan Au.D. [address] [place] [phone] documented as of this encounter Visit Diagnoses Not on filedocumented in this encounter Additional Health Concerns Assessment Noted Time PHQ-9 Depression Total Score: 2 04/22/2015 11:24 AM CS T documented as of this encounter
--- OUTSIDE RECORDS SUMMARY | 2022-01-31 09:41 | XMS_ITS | Encounter Summary ---
:1955 Author Organization [facility] Address [address] [place] [address] Care Team Providers Name Role Phone Unavailable Primary Care Provider Unavailable Encounter Details Date Type Department Care Team Description 05/02/2016 Hospital Encounter HX [facility] Blanka Carranza, C.N.P. [address] [place] [address] (Wo rk) Social History Tobacco Use Types Packs/Day Years Used Date Smoking Tobacco: Former Alcohol Habits Answer Date Recorded How often do you have a drink containing 4 or more times a w [place] 07/30/2021 alcohol? How many drinks containing alcohol [...] you attend religious or Patient refused 2021 gnosticist services? 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 documented as of this encounter Last Filed Vital Signs Vital Sign Reading Time Taken Comments Blood Pressure - - Pulse - - Temperature - - Respiratory Rate - - Oxygen Saturation - - Inhaled Oxygen Concentration - - Weight - - Height 161 cm (5' 3.39) 05/02/2016 9:00 AM CONCRETE STONE FABRICATOR Body Mass Index - - documented in [...] Miscellaneous - Conversion, Historical Provider Ser - 05/02/2016 11:59 PM CONCRETE STONE FABRICATOR Coding Summary-Paper Based CODING DATE: 06/17/2016 FINAL [place] [facility] STATUS: * Discharged to Home or Self Care PAYOR: [employer] ADMIT DX: REASON FOR VISIT DX: FINAL DX: PRINCIPAL: M85.80 Other specified disorders of bone density and structure, unspecified site SECONDARY: PROCEDURES DOCTOR NAME DATE NOTE: The code number assigned matches the documented diagnosis and / or procedure in the patient's chart. However, the narrative phrase printed from the coding software may appear abbreviated, or result in slightly different terminology. Coded By: BETTY HARO Date Saved: 06/17/2016 12:44 pm Source: [employer] Document Id: [id number] documented in this encounter Plan of Treatment Upcoming Encounters Date Type Specialty Care Team Description 02/02/2022 Immunization Family Medicine 02/12/2022 Office Visit Dermatology Lacy Dykes M.D. [address] [place], [place] [phone] (Lisha mccann) 02/22/2022 Office Visit Orthopedic Surgery Kimberlyn Alvarez APRN, C.N.P., D.N.P. [address] [place], [place] [phone] (Lisha mccann) 03/12/2022 Diagnostic Otorhinolaryngology Blanka Carranza, C.N.P. [address] [place] [address] Aleena Hassan Au.D. [address] [place] [address] documented as of this encounter Visit Diagnoses Not on filedocumented in this encounter Additional Health Concerns Assessment Noted Time PHQ-9 Depression Total Score: 2 04/22/2015 11:24 AM CS T documented as of this encounter
--- OUTSIDE RECORDS SUMMARY | 2022-01-31 09:41 | XMS_ITS | Encounter Summary ---
:1955 Author Organization [facility] Address [address] [place] [address] Care Team Providers Name Role Phone Unavailable Primary Care Provider Unavailable Encounter Details Date Type Department Care Team Description 02/15/2015 Hospital Encounter HX [facility] Thomas Casas M.D. [address] [place] [address] (Wo rk) Social History Tobacco Use Types Packs/Day Years Used Date Smoking Tobacco: Never Assessed Alcohol Habits Answer Date Recorded How often do you have a drink containing 4 or more times a w [place] 07/30/2021 alcohol? How many drinks containing alcohol [...] you attend hoahaoism or Patient refused 2021 oriental orthodox services? 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 ORAL) MULTIVITAMIN ORAL Take by mouth daily. 0 05/02/19 15 documented as of this encounter Progress Notes Thomas Casas M.D. - 02/15/2015 10:30 AM CST [id number] HISTORY OF PRESENT ILLNESS Priscilla is a 59-year-old female who I saw earlier this year for varicose veins. This was back in June of this year. Her incompetency ultrasound was performed and negative for any evidence of reflux oneither leg. Despite this, she continues to have symptoms from her varicose veins. I recommended a stab avulsion phlebectomy and she presents for this today. Risks of the procedure are discussed with her to include bleeding, infection and wound healing problems. We also discussed varicose vein recurrence. She understands and agrees to the procedure. PROCEDURE With Priscilla in the standing position, her legs are marked for the location of the varicose veins. These are on the back of both of her calves. She was then placed on the procedure table in the prone position. Her legs are prepped in the usual fashion bilaterally. Then 1% lidocaine plain was injected at each site for anesthesia. Small stab type incisions were then made at each site and phlebectomy performed using mosquito clamps. Nice vein segments were removed at each incision. Once completed, pressure was held for hemostasis. All skin incisions were sealed with Dermabond. A total of 14 incisions were performed, 8 on the right leg and 6 on the left leg. Once completed, Telfa pads were placed overthe incisions and knee-high compression stockings were placed. Priscilla tolerated well. IMPRESSION/REPORT/PLAN A 59-year-old female with bilateral lower extremity symptomatic varicose veins now status post stab avulsion phlebectomy x14. PLAN: I discussed with Priscilla routine postprocedure instructions. She understood these well and didnot have questions. She will follow up in about 3 weeks. At that point she would like to proceed with sclerotherapy. I did inform her that this was a peterson pay procedure. She was okay with this. She will make this appointment when it works with her schedule. Thomas Casas M.D./felipe Electronically Signed By: THOMAS CASAS MD On: 02/16/2015 11:59 AM Source: [facility] MHSDOLBEYNONRADSYS Document Id: [id number] METER TEMPERATURE REGULATOR documented in this encounter Miscellaneous Notes Miscellaneous - Thomas Casas M.D. - 02/16/2015 7:15 AM CST Ambulatory Patient Summary [address] [id number] Visit Information Name: MEMO PRISCILLA COSMO [facility] Number: [id number] Current Date: 02/16/2015 07:15:31 Physicians Attending Provider: THOMAS CASAS MD Primary Care Provider: KIMBERLYN MAYER RN, MEDICINE AND HEALTH SERVICE MANAGER PRISCILLA [place] COSMO has been given the [...] the Following Medications: Medication list as of 02-16-15 07:15 Attention: If you have any medications at [...] Electronically Signed By: THOMAS CASAS MD Signed On:16-FEB-2015 07:15:20 Your Allergies & Intolerances Substance Reaction Symptoms [...] Your Upcoming Appointments Date Time Location Provider 03/06/2015 14:20 [facility] Thomas Casas MD Attention: Contact your local Clinic if further [...] if you dont have one. Go to [email or web address] and click on Create Your Account. Then, follow the directions to complete the online form. Youll be asked for your [facility] number which you can find at the top of this document. Your Goals/Additional instructions: Source: [facility] POWERCHART Document Id: [id number] METER TEMPERATURE REGULATOR Miscellaneous - Thomas Casas M.D. - 02/16/2015 7:15 AM CST Ambulatory Discharge Medication List [address] [id number] Visit Information Name: PRISCILLA HAMPTON [facility] Number: [id number] Visit Date: 02/16/2015 07:15:28 Attending Provider: THOMAS ACSAS MD Primary Care Provider: KIMBERLYN MAYER RN, MEDICINE AND HEALTH SERVICE MANAGER PRISCILLA [place] has been given the [...] the Following Medications: Medication list as of 02-16-15 07:15 Attention: If you have any medications at [...] Electronically Signed By: THOMAS CASAS MD Signed On:16-FEB-2015 07:15:20 Additional Information: Source: [facility] POWERCHART Document Id: [id number] METER TEMPERATURE REGULATOR documented in this encounter Plan of Treatment Upcoming Encounters Date Type Specialty Care Team Description 02/02/2022 Immunization Family Medicine 02/12/2022 Office Visit Dermatology Lacy Dykes M.D. [address] [place], [place] [phone] (Lisha mccann) 02/22/2022 Office Visit Orthopedic Surgery Kimberlyn Mayer, JOSE DANIEL, C.N.P., D.N.P. [address] [place] [phone] (Lisha mccann) 03/12/2022 Diagnostic Otorhinolaryngology Blanka Carranza C.NPhilPPhil [address] [place] [address] Aleena Hassan Au.D. [address] [place] [phone] documented as of this encounter Visit Diagnoses Not on filedocumented in this encounter Additional Health Concerns Assessment Noted Time PHQ-9 Depression Total Score: 1 04/13/2013 11:36 AM CS T documented as of this encounter
--- OUTSIDE RECORDS SUMMARY | 2022-01-31 09:42 | XMS_ITS | Encounter Summary ---
:1955 Author Organization [facility] Address [address] [place] [address] Care Team Providers Name Role Phone Unavailable Primary Care Provider Unavailable Encounter Details Date Type Department Care Team Description 06/16/2013 Hospital Encounter HX [facility] Kimberlyn Alvarez, JOSE DANIEL, C.N.P., D. N.P. [address] [place] [address] (Wo rk) Social History Tobacco Use Types Packs/Day Years Used Date Smoking Tobacco: Never Assessed Alcohol Habits Answer Date Recorded How often do you have a drink containing 4 or more times a w [place] 07/30/2021 alcohol? How many drinks containing [...] you attend quaker or Patient refused 2021 adventist services? 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 - 06/16/2013 1:22 PM CDT Ambulatory Vitals Height Weight Ambulatory Vitals Height Weight Entered On: 06/16/2013 13:22 CDT Performed On: 06/16/2013 13:22 CDT by MEREDITH TOBIAS LPN Vitals/Ht/Wt Peripheral Pulse Rate : 59 /min (LOW) Systolic Blood Pressure : 144 mmHg (HI) (Comment: True BP [MEREDITH TOBIAS LPN - 06/16/2013 13:22 CDT] ) Diastolic Blood Pressure : 80 mmHg NIBP Mean : 101 mmHg BP Location : Left upper extremity Blood Pressure Cuff Size : Large MEREDITH TOBIAS LPN - 06/16/2013 13:22 CDT Source: [facility] POWERCHART Document Id: [id number] CDT!8 Miscellaneous - Che Cutler L.P.N. - 06/16/2013 1:05 PM CDT Ambulatory Vitals Height Weight Ambulatory Vitals Height Weight Entered On: 06/16/2013 13:10 CDT Performed On: 06/16/2013 13:05 CDT by CHE CUTLER LPN, RT Vitals/Ht/Wt Peripheral Pulse Rate : 61 /min Systolic Blood Pressure : 142 mmHg (HI) Diastolic Blood Pressure : 81 mmHg NIBP Mean : 101 mmHg BP Location : Left upper extremity Blood Pressure Cuff Size : Large CHE CUTLER LPN, RT - 06/16/2013 13:05 CDT Source: [employer] Document Id: [id number] CDT!8 Miscellaneous - Che Cutler L.P.N. - 06/16/2013 1:04 PM CDT Ambulatory Vitals Height Weight Ambulatory Vitals Height Weight Entered On: 06/16/2013 13:04 CDT Performed On: 06/16/2013 13:04 CDT by CHE CUTLER LPN, RT Vitals/Ht/Wt Peripheral Pulse Rate : 59 /min (LOW) Systolic Blood Pressure : 144 mmHg (HI) Diastolic Blood Pressure : 80 mmHg NIBP Mean : 101 mmHg BP Location : Left upper extremity Blood Pressure Cuff Size : Large CHE CUTLER LPN, RT - 06/16/2013 13:04 CDT Source: [employer] Document Id: [id number] CDT!8 documented in this encounter Plan of Treatment Upcoming Encounters Date Type Specialty Care Team Description 02/02/2022 Immunization Family Medicine 02/12/2022 Office Visit Dermatology Lacy Dykes M.D. [address] [place] [phone] (Wo rk) 02/22/2022 Office Visit Orthopedic Surgery Kimberlyn Alvarze APRN C.N.P., D.N.P. [address] [place], [place] [phone] (Wo rk) 03/12/2022 Diagnostic Otorhinolaryngology Blanka Carranza C.N.P. [address] [place] [address] Aleena Hassan Au.D. [address] [place] [phone] documented as of this encounter Visit Diagnoses Not on filedocumented in this encounter Additional Health Concerns Assessment Noted Time PHQ-9 Depression Total Score: 1 04/13/2013 11:36 AM CS T documented as of this encounter
--- OUTSIDE RECORDS SUMMARY | 2022-01-31 09:42 | XMS_ITS | Encounter Summary ---
:1955 Author Organization [facility] Address [address] [place] [address] Care Team Providers Name Role Phone Unavailable Primary Care Provider Unavailable Encounter Details Date Type Department Care Team Description 12/03/2013 Hospital Encounter HX [facility] Kimberlyn Mayer, JOSE DANIEL, C.N.P., D. N.P. [address] [place] [address] (Wo rk) Social History Tobacco Use Types Packs/Day Years Used Date Smoking Tobacco: Never Assessed Alcohol Habits Answer Date Recorded How often do you have a drink containing 4 or more times a w stebbins 07/30/2021 alcohol? How many drinks containing alcohol [...] you attend restoration or Patient refused 2021 alevism services? 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 Last Filed Vital Signs Vital Sign Reading Time Taken Comments Blood Pressure 144/78 12/03/2013 11:09 AM CDT Pulse 66 12/03/2013 11:09 AM CDT Temperature - - Respiratory Rate 18 12/03/2013 10:21 AM CDT Oxygen Saturation - - Inhaled Oxygen Concentration - - Weight 69.3 kg (152 lb 12.5 oz) 12/03/2013 10:21 AM CDT Height 161 cm (5' 3.39) 12/03/2013 11:09 AM CDT Body Mass Index 26.73 12/03/2013 10:21 AM CDT documented in this encounter Medications at Time of Discharge Medication Sig Dispensed Refills Start Date End Date B.ANI/L.ACI/L.BERNICE/L.PLAN/ Take 1 capsule by 0 06/2012 L.TASH (PROBIOTIC FORMULA mouth daily. ORAL) documented as of this encounter H&P Notes Kimberlyn Mayer, JOSE DANIEL, C.N.P. - 12/03/2013 9:59 AM CDT [id number] CHIEF COMPLAINT/REASON FOR VISIT Wellness exam. HISTORY OF PRESENT ILLNESS Priscilla is a pleasant 58-year-old female who comes in today for her wellness exam. She is compliant with her medications. She is due for a mammogram and we will get that set up. She also needs to have her lipid profile as well as her fasting glucose. In July we did previous electrolytes which were noted to be within normal limits. The patient states that she has been going to a diet center which hasnot drawn any blood but has been injecting her with vitamin B6 and B12. She notes improvement in herenergy level but has not had those levels checked which is concerning to me. Her blood pressure was noted to be a little bit elevated today. In her history she has had high blood pressure initially her first checks and then it does seem to go downward, we will want to just recheck this. MEDICATIONS She is currently on: Celexa 20 mg by mouth daily. Epinephrine autoinjector as needed. Famvir 500 on an as needed basis. Flonase nasal spray 2 puffs each nostril daily. Levothyroxine 137 mcg daily. Liothyronine 5 mg twice daily. Zofran as an as needed basis. Diovan 40 mg by mouth daily. Ambien CR 6.25 mg on an as needed basis. Probiotic daily. Calcium with vitamin D. Progesterone daily. Testosterone cream daily. ALLERGIES Wasp and hornet venom. Synvisc. Tdap. Pollen. SYSTEMS REVIEW Patient notes that she has a lesion on her right lower mahajan that she has noted for quite some time. It is a mole. She denies any chest pain. Denies any shortness of breath. No activity intolerance. No changes in bowel or bladder habits. No current infectious symptoms. PAST MEDICAL/SURGICAL HISTORY History of SVT. MCL tear. Colon polyp. Plantar fasciitis. Osteoporosis. Thyroid nodule. Some insomnia. Some dysthymia. Blepharoplasty. Colonoscopy, last colonoscopy being in 2011. Metacarpal foot surgery. Bladder surgery. . Breast surgery. Tonsillectomy. Adenoidectomy. Hand surgery. SOCIAL HISTORY Patient has a significant other. She does work, she is very active, exercises regularly. She does drink alcohol on a social basis and she is a former tobacco user. Age-appropriate counseling and risk factor reduction was provided. FAMILY HISTORY Mother with osteoporosis. Father with prostate cancer and coronary artery disease. Brother with hyperlipidemia. VITAL SIGNS Blood pressure 144/78 with a pulse of 66, temperature 36.6, height 161, weight is 69.3 and a BMI of 26.7. PHYSICAL EXAMINATION GENERAL: Patient appears nondistressed. SKIN: Warm and dry. On her right lower mahajan, she has a dermatofibroma nodule that is mobile and of non concern, reassured patient. HEENT: Unremarkable. VESSELS: Carotids with normal upstrokes. No bruits. HEART: Regular rate and rhythm. Normal S1, S2. There is no murmurs or gallops. LUNGS: Clear to auscultation with good respiratory effort. ABDOMEN: Soft, no organomegaly. IMPRESSION/REPORT/PLAN Routine general medical exam. Set her up for a mammogram. Because of her diet and the supplementation, I would like to get a B12 and folate. We will get a lipid and glucose screening. Patient is not fasting today and we will go ahead and order that for the future. Her blood pressure is noted to be elevated, this is common for her. I will have her return for a blood pressure recheck. If it is continuing to be elevated, then we will increase her medication as necessary. Ready to learn. No apparent learning barriers were identified. Learning preferences include listening. Explained diagnosis and treatment plan. Patient/Child/Caregiver expressed understanding of the content. Mila ContrerasNGavino/felipe Electronically Signed By: KIMBERLYN MAYER RN, PROCESS AREA SUPERVISOR On: 12/09/2013 02:41 PM Source: [facility] MHSDOLBEYNONRADSYS Document Id: [id number] documented in this encounter Miscellaneous Notes Miscellaneous - Wm Louis L.PPhilN. - 12/03/2013 11:09 AM CDT Ambulatory Vitals Height Weight Ambulatory Vitals Height Weight Entered On: 12/03/2013 11:10 CDT Performed On: 12/03/2013 11:09 CDT by WM LOUIS LPN Vitals/Ht/Wt Peripheral Pulse Rate : 66 /min Systolic Blood Pressure : 144 mmHg (HI) Diastolic Blood Pressure : 78 mmHg NIBP Mean : 100 mmHg Height : 161 cm(Converted to: 5 ft 3 inch(es), 63 inch(es)) WM LOUIS LPN - 12/03/2013 11:09 CDT Source: [facility] POWERCHART Document Id: [id number] CDT!7 Miscellaneous - Kimberlyn Mayer APRN, C.N.P. - 12/03/2013 11:05 AM CDT Ambulatory Patient Summary [address] [place] [id number] Visit Information Name: PRISCILLA HAMPTON [facility] Number: [id number] Current Date: 12/03/2013 11:05:03 Physicians Attending Provider: KIMBERLYN MAYER RN, PROCESS AREA SUPERVISOR Primary Care Provider: KIMBERLYN MAYER RN, PROCESS AREA SUPERVISOR PRISCILLA HAMPTON has been given the following [...] capsule) 1 cap, Oral, once a day calcium-vitamin D (Calcium 600+D) 1200mg po daily citalopram (Celexa 20 mg oral tablet) 1 Tablet(s), Oral, once a day to cover until mail order arrives EPINEPHrine (EpiPen Auto-Injector) See Instructions Twin injector epipen famciclovir (Famvir 500 mg oral tablet) 1 Tablet(s), Oral, every 8 hours at onset of cold sore x 1day. fluticasone nasal (Flonase 50 mcg/inh nasal spray) 2 [place](s), Nostrils(Both), once a day levothyroxine (Synthroid 137 mcg (0.137 mg) oral tablet) 1 Tablet(s), Oral, once a day NDYIA- No generic please. liothyronine (liothyronine 5 mcg oral tablet) 1 Tablet(s), Oral, once a day Misc Prescription (Misc Prescription) 1 tab, Oral, once a day progesterone *Misc Prescription (Misc Prescription) cholestrom one tablet twice daily *Misc Prescription (Misc Prescription) Boswellia Complex 2 times a day *Misc Prescription (Misc Prescription) zyhan 3 times a day with food ondansetron (Zofran ODT 4 mg oral tablet, disintegrating) 1 Tablet(s), Oral, every 8 hours as neededfor Nausea Routed to [address] [address] testosterone (testosterone 2% transdermal cream) once a day valsartan (Diovan 40 mg oral tablet) 1 Tablet(s), Oral, once a day valsartan (Diovan 40 mg oral tablet) 1 Tablet(s), Oral, once a day Please dispense brand zolpidem (Ambien CR 6.25 mg oral tablet, extended release) 1 Tablet(s), Oral, once a day (at bedtime) Routed to Printer * You have let us know that you are not taking this medication as listed. Please talk with your primary care provider or the health care provider who prescribed the medication as soon as possible. Stop Taking the Following Medications: montelukast (Singulair 10 mg oral tablet) Medication list as of 12-03-13 11:05 Attention: If you have any medications at [...] appointment detail needed. Your Goals/Additional instructions: Source: [facility] POWERCHART Document Id: [id number] Miscellaneous - Kimberlyn Mayer APRN C.N.P. - 12/03/2013 11:05 AM CDT Ambulatory Discharge Medication List [address] [id number] Visit Information Name: PRISCILLA HAMPTON [facility] Number: [id number] Visit Date: 12/03/2013 11:05:01 Attending Provider: KIMBERLYN MAYER RN, PROCESS AREA SUPERVISOR Primary Care Provider: KIMBERLYN MAYER RN, PROCESS AREA SUPERVISOR PRISCILLA HAMPTON has been given the following [...] capsule) 1 cap, Oral, once a day calcium-vitamin D (Calcium 600+D) 1200mg po daily citalopram (Celexa 20 mg oral tablet) 1 Tablet(s), Oral, once a day to cover until mail order arrives EPINEPHrine (EpiPen Auto-Injector) See Instructions Twin injector epipen famciclovir (Famvir 500 mg oral tablet) 1 Tablet(s), Oral, every 8 hours at onset of cold sore x 1day. fluticasone nasal (Flonase 50 mcg/inh nasal spray) 2 [place](s), Nostrils(Both), once a day levothyroxine (Synthroid 137 mcg (0.137 mg) oral tablet) 1 Tablet(s), Oral, once a day NYDIA- No generic please. liothyronine (liothyronine 5 mcg oral tablet) 1 Tablet(s), Oral, once a day Misc Prescription (Misc Prescription) 1 tab, Oral, once a day progesterone *Misc Prescription (Misc Prescription) cholestrom one tablet twice daily *Misc Prescription (Misc Prescription) Boswellia Complex 2 times a day *Misc Prescription (Misc Prescription) zyhan 3 times a day with food ondansetron (Zofran ODT 4 mg oral tablet, disintegrating) 1 Tablet(s), Oral, every 8 hours as neededfor Nausea Routed to [address] [address] testosterone (testosterone 2% transdermal cream) once a day valsartan (Diovan 40 mg oral tablet) 1 Tablet(s), Oral, once a day valsartan (Diovan 40 mg oral tablet) 1 Tablet(s), Oral, once a day Please dispense brand zolpidem (Ambien CR 6.25 mg oral tablet, extended release) 1 Tablet(s), Oral, once a day (at bedtime) Routed to Printer * You have let us know that you are not taking this medication as listed. Please talk with your primary care provider or the health care provider who prescribed the medication as soon as possible. Stop Taking the Following Medications: montelukast (Singulair 10 mg oral tablet) Medication list as of 12-03-13 11:05 Attention: If you have any medications at [...] Signed By: Signed On: Additional Information: Source: [facility] POWERCHART Document Id: [id number] Miscellaneous - Siena Hernandez L.PPhilNPhil - 12/03/2013 10:21 AM CDT Adult Security Assessor Intake/History Adult Security Assessor Intake/History Entered On: 12/03/2013 10:23 CDT Performed On: 12/03/2013 10:21 CDT by SIENA HERNANDEZ LPN Intake Chief Complaint : wellness exam Temperature Core : 36.2 DegC(Converted to: 97.2 DegF) (LOW) Peripheral Pulse Rate : 59 /min (LOW) Respiratory Rate : 18 /min Heart Rhythm : Regular Systolic Blood Pressure : 161 mmHg (>HHI) Diastolic Blood Pressure : 91 mmHg (>HHI) NIBP Mean : 114 mmHg BP Location : Left upper extremity Blood Pressure Cuff Size : Regular SpO2 : 100 % Oxygen Therapy : Room air Height : 161 cm(Converted to: 5 ft 3 inch(es), 63 inch(es)) Actual Weight : 69.3 kg(Converted to: 152 lb 12 oz) Weight Source : Standing scale Dosing Weight Clinic : 69.3 kg Clinic BSA : 1.76 Body Mass Index : 26.74 kg/m2 SIENA HERNANDEZ LPN - 12/03/2013 10:21 CDT General Info Information Given By : Patient Preferred Communication Mode : Verbal Languages : Tajik Is Patient Female and 13-50 no hysterectomy : No SIENA HERNANDEZ LPN - 12/03/2013 10:21 CDT Subjective Pain Symptoms : No SIENA HERNANDEZ LPN - 12/03/2013 10:21 CDT Dependent Habits Tobacco Use/Currently Using : No Exposure to Tobacco Smoke : Care provider denies smoking in home Smoking Status : Former smoker SIENA HERNANDEZ LPN - 12/03/2013 10:21 CDT Tobacco Use Grid Type : Cigarettes Last Use : age 32 SIENA HERNANDEZ LPN - 12/03/2013 10:21 CDT Alcohol Use : Yes SIENA HERNANDEZ LPN - 12/03/2013 10:21 CDT Caffeine Use Grid Caffeine Use : Current Type : Coffee Frequency : Daily SIENA HERNANDEZ LPN - 12/03/2013 10:21 CDT Recreational Drug Use Grid Drug Use : None SIENA HERNANDEZ LPN - 12/03/2013 10:21 CDT Source: [employer] AGCHART Document Id: [id number] CDT!44 documented in this encounter Plan of Treatment Upcoming Encounters Date Type Specialty Care Team Description 02/02/2022 Immunization Family Medicine 02/12/2022 Office Visit Dermatology Lacy Dykes M.D. [address] [place], [place] [phone] (Wo rk) 02/22/2022 Office Visit Orthopedic Surgery Kimberlyn Mayer APRN, C.N.P., D.N.P. [address] [place], [place] [phone] ([facility]) 03/12/2022 Diagnostic Otorhinolaryngology Blanka Carranza, C.N.P. [address] [place], [place] [id number] Aleena Hassan Au.D. [address] [place] [address] documented as of this encounter Visit Diagnoses Not on filedocumented in this encounter Additional Health Concerns Assessment Noted Time PHQ-9 Depression Total Score: 1 04/13/2013 11:36 AM CS T documented as of this encounter
--- OUTSIDE RECORDS SUMMARY | 2022-01-31 09:42 | XMS_ITS | Encounter Summary ---
:1955 Author Organization [facility] Address [address] [place] [address] Care Team Providers Name Role Phone Unavailable Primary Care Provider Unavailable Encounter Details Date Type Department Care Team Description 12/07/2013 Hospital Encounter HX [facility] Kimberlyn Alvarez AP RN, C.N.P., D.N.P. [address] [place], [place] [phone] (Wo rk) Social History Tobacco Use Types Packs/Day Years Used Date Smoking Tobacco: Never Assessed Alcohol Habits Answer Date Recorded How often do you have a drink containing 4 or more times a w algaaciq 07/30/2021 alcohol? How many drinks containing alcohol [...] you attend zoroastrianism or Patient refused 2021 christianity services? Do you belong to any clubs or Yes 07/30/2021 organizations such as zoroastrianism groups, unions, fraternal or athletic groups, or school groups? How often do you attend meetings of the More than 4 times pe tone year 07/30/2021 clubs or organizations you belong [...] or slept in a fdc (including now)? 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 [address] [place], [place] [phone] (Wo rk) 02/22/2022 Office Visit Orthopedic Surgery Kimberlyn Alvarez APRN, C.N.P., D.N.P. [address] [place], [place] [phone] (Wo rk) 03/12/2022 Diagnostic Otorhinolaryngology Blanka Carranza, C.N.P. [address] [place], [place] [phone] Aleena Hassan Au.D. [address] [place] [address] documented as of this encounter Procedures Procedure Name Priority Date/Time Associated Diagnosis Comme nts VITAMIN B12 AND Routine 12/07/2013 7:39 AM Result s for this FOLATE, S CDT procedure are i n the results section. documented in this encounter Results Vitamin B12 Level and Folate (12/07/2013 7:39 AM CDT) athologist Signature Vitamin B12 497 180 - 914 POWERCHART Assay, S NGL Folate, S 8.3 >=4.0 MCGL POWERCHART Comment: Test Performed by: [place] [address] Cathode Ray Tube Assembler: Sky jones III, M.D. Specimen (Source) Anatomical Collection Method Collection Time Re ceived Time Location / / Volume Laterality Blood 12/07/2013 7:39 AM CDT Kimberlyn Alvarez APRN, C.N.P., D.N.P. LAB BLOOD NON ADD-O N Performing Organization Address City/State/ZIP Code Phon e Number POWERCHART documented in this encounter Visit Diagnoses Not on filedocumented in this encounter Additional Health Concerns Assessment Noted Time PHQ-9 Depression Total Score: 1 04/13/2013 11:36 AM CS T documented as of this encounter
--- OUTSIDE RECORDS SUMMARY | 2022-01-31 09:42 | XMS_ITS | Encounter Summary ---
:1955 Author Organization [facility] Address [address] [place] [address] Care Team Providers Name Role Phone Unavailable Primary Care Provider Unavailable Encounter Details Date Type Department Care Team Description 06/22/2013 Hospital Encounter HX [facility] Kimberlyn Mayer, JOSE DANIEL, C.N.P., D. N.P. [address] [place] [address] (Wo rk) Social History Tobacco [...] you attend zoroastrian or Patient refused 2021 religion services? 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 ORAL) documented as of this encounter Progress Notes Kimberlyn Mayer, JOSE DANIEL, C.N.P. - 06/22/2013 12:54 PM CDT [id number] CHIEF COMPLAINT/REASON FOR VISIT Elevated blood pressure and decreased pulse. HISTORY OF PRESENT ILLNESS Priscilla is a very pleasant 57-year-old female who comes in today with concerns of elevated blood pressure. She has come in multiple times for her blood pressure rechecks with nurse-only visits and continues to show some hypertension. Her main concern is every time she comes in her pulse seems to be low. She has had it in the low 50s which is very unusual for her. She denies any feelings of syncope. She denies any headaches. She denies any chest pain or shortness of breath. No changes in bowel or bladder habits. MEDICATIONS Please see the electronic medical record for details. ALLERGIES Please see the electronic medical record. VITAL SIGNS Her blood pressure is 135/77 with a pulse of 63. PHYSICAL EXAMINATION GENERAL: Patient appears nondistressed. HEENT: Her HEENT are unremarkable. LYMPH: Lymph was unremarkable. VESSELS: Carotids normal upstrokes, no bruits. HEART: Heart with regular rate and rhythm. Normal S1, S2. There are no murmurs or gallops. Her PMI is nondisplaced. LUNGS: Lungs are clear to auscultation. ABDOMEN: Soft with no organomegaly. EXTREMITIES: Extremities without any edema. DIAGNOSTICS: Her EKG was performed and this showed normal sinus rhythm with some possible left atrial enlargement. However, I really do not see the significance of that. Also back in June2011 she did have an echocardiogram that was a stress echo and was negative for ischemia. Her EF was 65% at rest and 70% at peak stress. IMPRESSION/REPORT/PLAN Hypertension. PLAN: I think that we need to treat her hypertension given her symptoms. She will report if she doeshave any new symptoms. I did discuss this with her in detail. We will place her on lisinopril 5 mg by mouth daily. We talked about correct administration as well as potential side effects of the medication. I would like to have her return in 3 weeks and recheck her blood pressure as well as her electrolytes at that time. Patient Education #1 Patient/parent/caregiver is ready to learn. No apparent learning barriers were identified. Learning preferences included listening. Explained diagnosis and treatment plan. Patient/parent/caregiver expressed understanding of the content. Mila ContrerasNGavino/antwon Electronically Signed By: KIMBERLYN MAYER RN, DISTILLERY MILLER On: 06/23/2013 02:50 PM Source: [facility] MHSDOLBEYNONRADSYS Document Id: [id number] documented in this encounter Miscellaneous Notes Miscellaneous - Kimberlyn Mayer APRN, C.N.P. - 06/22/2013 4:42 PM CDT Results Notification Document Contains Addenda Addendum by WM HANSEN LPN on 23 June 2013 13:51:34 CDT Message left on patients private voicemail From: KIMBERLYN MAYER RN, DISTILLERY MILLER To: HANSEN WMKIMBERLY Leavitt LPN; Sent: 06/22/2013 16:42:06 CDT Show up: 06/22/2013 16:42:00 CDT Subject: Results Notification please let Priscilla know her TSH is fine also. thanks. Results: Date Result Name Ind Value Ref Range 06/22/2013 13:03 TSH 0.87 mcIU/mL (0.30 - 5.00) 06/22/2013 13:03 Hgb (H) 15.7 g/dL (12.0 - 15.5) 06/22/2013 13:03 Hct (H) 45.5 % (34.9 - 44.5) 06/22/2013 13:03 WBC 10.2 x10(9)/L (3.4 - 10.5) 06/22/2013 13:03 RBC 4.76 x10(12)/L (3.90 - 5.03) 06/22/2013 13:03 MCV 95.6 fL (82.0 - 98.0) 06/22/2013 13:03 RDW 12.5 % (11.9 - 15.5) 06/22/2013 13:03 Platelet 332 x10(9)/L (150 - 450) Source: [facility] POWERCHART Document Id: [id number] Miscellaneous - Tiera Guzman, L.P.N. 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 Entered On: 06/22/2013 13:17 CDT Performed On: 06/22/2013 13:15 CDT by TIERA GUZMAN Intake Peripheral Pulse Rate : 63 /min Systolic Blood Pressure : 135 mmHg Diastolic Blood Pressure : 77 mmHg NIBP Mean : 96 mmHg BP Location : Right upper extremity Blood Pressure Cuff Size : Other: magalys b/p TIERA GUZMAN - 06/22/2013 13:22 CDT Chief Complaint : low heart rate and elevated b/p other symptoms include hot flashes at night, nausea in the morning recently treated for UTI Temperature Core : 37.4 DegC(Converted to: 99.3 DegF) Actual Weight : 70.2 kg(Converted to: 154 lb 12 oz) Weight Source : Standing scale Dosing Weight Clinic : 70.2 kg TIERA GUZMAN - 06/22/2013 13:15 CDT General Info Information Given By : Patient Languages : Greenlandic NYDIA GUZMANN 06/22/2013 13:15 CDT Subjective Pain Symptoms : No NYDIA GUZMANN 06/22/2013 13:15 CDT Dependent Habits Tobacco Use/Currently Using : No Exposure to Tobacco Smoke : Care provider denies smoking in home Smoking Status : Former smoker NYDIA GUZMANN 06/22/2013 13:15 CDT Tobacco Use Grid Type : Cigarettes Last Use : age 32 NYDIA GUZMANN 06/22/2013 13:15 CDT Caffeine Use Grid Caffeine Use : Current Type : Coffee Frequency : Daily NYDIA GUZMANN 06/22/2013 13:15 CDT Recreational Drug Use Grid Drug Use : None NYDIA GUZMANN 06/22/2013 13:15 CDT Source: [employer] Document Id: [id number] CDT!34 documented in this encounter Plan of Treatment Upcoming Encounters Date Type Specialty Care Team Description 02/02/2022 Immunization Family Medicine 02/12/2022 Office Visit Dermatology Lacy Dykes M.D. [address] [place], [place] [phone] (Wo rk) 02/22/2022 Office Visit Orthopedic Surgery Kimberlyn Mayer APRN, C.N.P., D.N.P. [address], [place] [phone] (Wo rk) 03/12/2022 Diagnostic Otorhinolaryngology Blanka Carranza, C.N.P. [address] [place] [address] Aleena Hassan Au.D. [facility] [place] [phone] documented as of this encounter Procedures Procedure Name Priority Date/Time Associated Diagnosis Comme nts CBC WITHOUT Routine 06/22/2013 1:03 PM Results f or this DIFFERENTIAL, B CDT procedure ar e in the results section. THYROID-STIMULATING Routine 06/22/2013 1:03 PM Re sults for this HORMONE-SENSITIVE CDT procedure are in (S-TSH) the results section. documented in this encounter Results (ABNORMAL) CBC without Differential (06/22/2013 1:03 PM CDT) Analysis Performed At Patho logist Time Signature Leukocytes 10.2 3.4 - 10.5 POWERCHART X109L Erythrocytes 4.76 3.90 - POWERCHART 5.03 [id number] Hemoglobin 15.7 (H) 12.0 - POWERCHART 15.5 GDL Hematocrit 45.5 (H) 34.9 - POWERCHART 44.5 MCV 95.6 82.0 - POWERCHART 98.0 FL HX RDW 12.5 11.9 - POWERCHART 15.5 Platelet Count 332 150 - 450 POWERCHART X109L Specimen (Source) Anatomical Collection Method Collection Time Re ceived Time Location / / Volume Laterality Blood 06/22/2013 1:03 PM CDT Kimberlyn Mayer APRN, C.N.P., D.N.P. LAB BLOOD ADD-ON Performing Organization Address City/State/ZIP Code Phon e Number POWERCHART Thyroid-Stimulating Hormone-Sensitive (s-TSH) (06/22/2013 1:03 PM CDT) P athologist Signature TSH 0.87 0.30 - 5.00 POWERCHART (Thyrotropin) MCIUML Specimen (Source) Anatomical Collection Method Collection Time Re ceived Time Location / / Volume Laterality Blood 06/22/2013 1:03 PM CDT Kimberlyn Mayer APRN, C.N.P., D.N.P. LAB BLOOD ADD-ON Performing Organization Address City/State/ZIP Code Phon e Number POWERCHART documented in this encounter Visit Diagnoses Not on filedocumented in this encounter Additional Health Concerns Assessment Noted Time PHQ-9 Depression Total Score: 1 04/13/2013 11:36 AM CS T documented as of this encounter
--- OUTSIDE RECORDS SUMMARY | 2022-01-31 09:42 | XMS_ITS | Encounter Summary ---
:1955 Author Organization [facility] Address [address] [place] [address] Care Team Providers Name Role Phone Unavailable Primary Care Provider Unavailable Encounter Details Date Type Department Care Team Description 06/22/2013 Hospital En[facility] Kimberlyn Alvarez, JOSE DANIEL, C.N.P., D. N.P. [address] [place] [address] (Wo rk) Social History Tobacco Use Types Packs/Day Years Used Date Smoking Tobacco: Never Assessed Alcohol Habits Answer Date Recorded How often do you have a drink containing 4 or more times a w havasupai 07/30/2021 alcohol? How many drinks containing alcohol [...] or relatives? How often do you attend mandaen or Patient refused 2021 hoahaoism services? 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 ORAL) documented as of this encounter Nursing Notes Ginny Guzman, LPhilP.N. - 06/22/2013 9:59 AM CDT Nurse Only Documentation Document Has Been Updated Nurse Only Documentation Entered On: 06/22/2013 10:00 CDT Performed On: 06/22/2013 9:59 CDT by GINNY GUZMAN Nurse Only Documentation Nurse Only Visit Documentation : patient came in for a check of her blood pressure concerns of it running high and pulse being slow. also complains of feeling hot alot with nausea in the morning no other symptoms. GINNY GUZMAN - 06/22/2013 10:02 CDT Vitals/Ht/Wt Peripheral Pulse Rate : 51 /min (LOW) Systolic Blood Pressure : 160 mmHg (HI) Diastolic Blood Pressure : 80 mmHg NIBP Mean : 107 mmHg BP Location : Left upper extremity Blood Pressure Cuff Size : Regular GINNY GUZMAN - 06/22/2013 9:59 CDT [facility] POWERCHART Document Id: [id number] CDT!3 documented in this encounter Miscellaneous Notes Miscellaneous - Ginny Guzman, L.P.N. - 06/22/2013 10:01 AM CDT Ambulatory Vitals Height Weight Ambulatory Vitals Height Weight Entered On: 06/22/2013 10:01 CDT Performed On: 06/22/2013 10:01 CDT by GINNY GUZMAN Vitals/Ht/Wt Peripheral Pulse Rate : 51 /min (LOW) Systolic Blood Pressure : 144 mmHg (HI) Diastolic Blood Pressure : 74 mmHg NIBP Mean : 97 mmHg BP Location : Left upper extremity Blood Pressure Cuff Size : Other: magalys b/p GINNY GUZMAN - 06/22/2013 10:01 CDT Source: [employer] Document Id: [id number] CDT!8 documented in this encounter Plan of Treatment Upcoming Encounters Date Type Specialty Care Team Description 02/02/2022 Immunization Family Medicine 02/12/2022 Office Visit Dermatology Lacy Dykes M.D. [address] [place], [place] [phone] (Wo rk) 02/22/2022 Office Visit Orthopedic Surgery Kimberlyn Alvarez APRN C.N.P., D.N.P. [address] [place], [place] [phone] (Wo rk) 03/12/2022 Diagnostic Otorhinolaryngology Blanka Carranza, C.N.P. [address] [place], [place] [id number] Aleena Hassan Au.D. [address] [place] [address] documented as of this encounter Visit Diagnoses Not on filedocumented in this encounter Additional Health Concerns Assessment Noted Time PHQ-9 Depression Total Score: 1 04/13/2013 11:36 AM CS T documented as of this encounter
--- OUTSIDE RECORDS SUMMARY | 2022-01-31 09:42 | XMS_ITS | Encounter Summary ---
:1955 Author Organization [facility] Address [address] [place] [address] Care Team Providers Name Role Phone Unavailable Primary Care Provider Unavailable Encounter Details Date Type Department Care Team Description 08/27/2013 Hospital Encounter HX [facility] Kimberlyn Mayer, JOSE DANIEL, C.N.P., D. N.P. [address] [place] [address] (Wo rk) Social History Tobacco [...] you attend evangelical or Patient refused 2021 zoroastrianism services? Do [...] at Date Recorded Female 05/19/2017 11:19 AM [employer] documented as of this encounter Last Filed Vital Signs Vital Sign Reading Time Taken Comments Blood Pressure 106/74 08/27/2013 12:26 PM CDT Pulse 64 08/27/2013 12:26 PM CDT Temperature - - Respiratory Rate 16 08/27/2013 12:26 PM CDT Oxygen Saturation - - Inhaled Oxygen Concentration - - Weight 69.4 kg (153 lb) 08/27/2013 12:26 PM CDT Height - - Body Mass Index 26.77 07/16/2013 8:44 AM CDT documented in this encounter Medications at Time of Discharge Medication Sig Dispensed Refills Start Date End Date B.ANI/L.ACI/L.BERNICE/L.PLAN/ Take 1 capsule by 0 06/2012 L.TASH (PROBIOTIC FORMULA mouth daily. ORAL) documented as of this encounter Progress Notes Kimberlyn Mayer, JOSE DANIEL, C.N.P. - 08/27/2013 12:09 PM CDT [id number] CHIEF COMPLAINT/REASON FOR VISIT Cough. HISTORY OF PRESENT ILLNESS Priscilla is a very pleasant, 58-year-old female who, about 2 months ago, was placed on lisinopril. She comes in today with an increased nonproductive cough that she has had for about 2 to 3 weeks. She states that she is coughing so hard that she is getting pain on her sides and she is also noted to be wheezing. She has difficulty sleeping at night. Also, she denies any fevers or chills. She states overall she does not feel that ill. She has been taking allergy medications and despite that has really not had any improvement. She feels that she has some postnasal drainage identified also. MEDICATIONS New reconciled medication is Siena-D and Flonase nasal spray, as well as Tessalon Perles. Discontinuing her lisinopril. SYSTEMS REVIEW No fevers or chills. VITAL SIGNS Her blood pressure is 106/74 with a pulse of 64. GENERAL: Patient appears nondistressed. HEENT: Her head is normocephalic. She has no significant sinus tenderness noted. Ears are clear. Nose with erythremic boggy turbinates. Throat was negative lymph was negative. LUNGS: Clear to auscultation with good respiratory effort. ABDOMEN: Soft, no organomegaly noted. DIAGNOSTICS CBC performed which is unremarkable. Also we did do some pulmonary function tests which did show some mild restrictive ventilatory defect. IMPRESSION/REPORT/PLAN Cough. I actually believe that this is probably accentuated by her lisinopril. We are going to discontinue the use of her lisinopril. Also I think she has some allergies that are causing it. Will have her use some Siena-D. We did talk about potential side effects as well as correct administration ofthat medication, and we will continue with the Tessalon Perles and add some Flonase nasal spray. If her symptoms do not improve, or has any worsening symptoms she will be sure to let us know. Patient Education: Ready to learn.No apparent learning barriers were identified.Learning preferencesinclude listening.Explained diagnosis and treatment plan.Patient/Child/Caregiver expressed understanding of the content. Mila ContrerasNGavino/felipe Electronically Signed By: KIMBERLYN MAYER RN, MARINE FIREMAN On: 09/01/2013 05:40 PM Source: [facility] MHSDOLBEYNONRADSYS Document Id: [id number] documented in this encounter Miscellaneous Notes Miscellaneous - Kimberlyn Mayer APRN, C.N.P. - 08/27/2013 4:26 PM CDT Results Notification From: KIMBERLYN MAYER RN, MARINE FIREMAN Sent: 08/27/2013 16:26:58 CDT Show up: 08/27/2013 16:27:00 CDT Subject: Results Notification pt called and informed of unremarkable results. Will make no change in plan of care. Results: Date Result Name Ind Value Ref Range 08/27/2013 13:21 Hgb 15.4 g/dL (12.0 - 15.5) 08/27/2013 13:21 Hct (H) 45.4 % (34.9 - 44.5) 08/27/2013 13:21 WBC 7.6 x10(9)/L (3.4 - 10.5) 08/27/2013 13:21 RBC 4.57 x10(12)/L (3.90 - 5.03) 08/27/2013 13:21 MCV (H) 99.3 fL (82.0 - 98.0) 08/27/2013 13:21 RDW 12.6 % (11.9 - 15.5) 08/27/2013 13:21 Platelet 266 x10(9)/L (150 - 450) 08/27/2013 13:21 Neutro % 59.9 % (42.0 - 77.0) 08/27/2013 13:21 Lymph % 31.5 % (23.0 - 44.0) 08/27/2013 13:21 Childress % 6.6 % (2.0 - 18.0) 08/27/2013 13:21 Eos % 1.6 % (1.0 - 5.0) 08/27/2013 13:21 Baso % 0.4 % (0.0 - 1.0) 08/27/2013 13:21 Neutro Absolute 4.52 10(9)/L (1.70 - 7.00) 08/27/2013 13:21 Lymph Absolute 2.38 x10(9)/L (0.90 - 2.90) 08/27/2013 13:21 Childress Absolute 0.50 x10(9)/L (0.30 - 0.90) 08/27/2013 13:21 Eos Absolute 0.12 x10(9)/L (0.05 - 0.50) 08/27/2013 13:21 Baso Absolute 0.03 x10(9)/L (0.00 - 0.30) 08/27/2013 13:21 Differential? Auto Source: [facility] POWERCHART Document Id: [id number] Electronically signed by Jennifer [facility] Stock Replenisher [id number] at 09/02/2016 8:58 PM CDT Miscellaneous - Kimberlyn Mayer APRN, C.N.P. - 08/27/2013 1:02 PM CDT Ambulatory Patient Summary [id number] [place], [place] [id number] Visit Information Name: MEMOPRISCILLA [facility] Number: [id number] Current Date: 08/27/2013 13:02:50 Physicians Attending Provider: KIMBERLYN MAYER RN, MARINE FIREMAN Primary Care Provider: KIMBERLYN MAYER RN, MARINE FIREMAN MEMOPRISCILLA has been given the following list of [...] Take Indications/Special Instructions/Comments/Notes for Patient Medication Changes/Routing benzonatate (Tessalon Perles 100 mg oral capsule) 1 cap, Oral, three times a day x 14 day(s) New Routed to [facility] [address] [address] bifidobacterium-lactobacillus (Probiotic Formula oral capsule) 1 cap, Oral, once a day calcium-vitamin D (Calcium 600+D) 1200mg po daily citalopram (Celexa 20 mg oral tablet) 1 Tablet(s), Oral, once a day citalopram (Celexa 20 mg oral tablet) 1 Tablet(s), Oral, once a day to cover until mail order arrives codeine-guaiFENesin (Guaifenesin AC Liquid oral syrup) 5 Milliliter, Oral, every 6 hours as needed for cough and congestion EPINEPHrine (EpiPen Auto-Injector) See Instructions Twin injector epipen famciclovir (Famvir 500 mg oral tablet) 1 Tablet(s), Oral, every 8 hours at onset of cold sore x 1day. fexofenadine-pseudoephedrine (Siena-D 12 Hour Allergy & Congestion 60 mg-120 mg oral tablet, extended release) 1 Tablet(s), Oral, every 12 hours fluticasone nasal (Flonase 50 mcg/inh nasal spray) 2 Freeland(s), Nostrils(Both), once a day HYDROcodone-acetaminophen (HYDROcodone-acetaminophen 5 mg-325 mg oral tablet) 1- 2 tab(s), Oral, every 6 hours as needed for moderate to severe p levothyroxine (Synthroid 137 mcg (0.137 mg) oral tablet) 1 Tablet(s), Oral, once a day NYDIA- No generic please. liothyronine (liothyronine 5 mcg oral tablet) 1 Tablet(s), Oral, once a day methylPREDNISolone (methylPREDNISolone 4 mg oral tablet) See Instructions Follow package instructions Misc Prescription (Misc Prescription) 1 tab, Oral, once a day progesterone Misc Prescription (Misc Prescription) cholestrom one tablet twice daily Misc Prescription (Misc Prescription) Boswellia Complex 2 times a day Misc Prescription (Misc Prescription) zyhan 3 times a day with food testosterone (testosterone 2% transdermal cream) once a day zolpidem (Ambien 5 mg oral tablet) 1 Tablet(s), Oral, once a day (at bedtime) Please note dose change due to new FDA guidelines / [place]ields Stop Taking the Following Medications: lisinopril (lisinopril 5 mg oral tablet) Medication list as of 08-27-13 13:02 Attention: If you have any medications at [...] emergency. Electronically Signed By: KIMBERLYN MAYER RN, MARINE FIREMAN Signed On:27-AUG-2013 13:02:35 Your Allergies & Intolerances Substance Reaction Symptoms [...] thumb Your Upcoming Appointments Date Time Location Reason Provider No Appointments found Attention: Contact your local Clinic if further appointment detail needed. Your Goals/Additional instructions: [facility] Document Id: [id number] Miscellaneous - Kimberlyn Mayer APRN, C.N.P. - 08/27/2013 1:02 PM CDT Ambulatory Discharge Medication List [address] [id number] Visit Information Name: PRISCILLA HAMPTON [facility] Number: [id number] Visit Date: 08/27/2013 13:02:48 Attending Provider: KIMBERLYN MAYER RN, MARINE FIREMAN Primary Care Provider: KIMBERLYN MAYER RN, MARINE FIREMAN PRISCILLA HAMPTON COSMO has been given the following list of medications: Your Medications It is important to take your medications as directed. Use a pill box or chart to help remind you to take your medications. Please let your doctor or nurse know if you have problems taking your medications. Medication/Strength How to Take Indications/Special Instructions/Comments/Notes for Patient Medication Changes/Routing benzonatate (Tessalon Perles 100 mg oral capsule) 1 cap, Oral, three times a day x 14 day(s) New Routed to [address] [id number] bifidobacterium-lactobacillus (Probiotic Formula oral capsule) 1 cap, Oral, once a day calcium-vitamin D (Calcium 600+D) 1200mg po daily citalopram (Celexa 20 mg oral tablet) 1 Tablet(s), Oral, once a day citalopram (Celexa 20 mg oral tablet) 1 Tablet(s), Oral, once a day to cover until mail order arrives codeine-guaiFENesin (Guaifenesin AC Liquid oral syrup) 5 Milliliter, Oral, every 6 hours as needed for cough and congestion EPINEPHrine (EpiPen Auto-Injector) See Instructions Twin injector epipen famciclovir (Famvir 500 mg oral tablet) 1 Tablet(s), Oral, every 8 hours at onset of cold sore x 1day. fexofenadine-pseudoephedrine (Siena-D 12 Hour Allergy & Congestion 60 mg-120 mg oral tablet, extended release) 1 Tablet(s), Oral, every 12 hours fluticasone nasal (Flonase 50 mcg/inh nasal spray) 2 Freeland(s), Nostrils(Both), once a day HYDROcodone-acetaminophen (HYDROcodone-acetaminophen 5 mg-325 mg oral tablet) 1- 2 tab(s), Oral, every 6 hours as needed for moderate to severe p levothyroxine (Synthroid 137 mcg (0.137 mg) oral tablet) 1 Tablet(s), Oral, once a day NYDIA- No generic please. liothyronine (liothyronine 5 mcg oral tablet) 1 Tablet(s), Oral, once a day methylPREDNISolone (methylPREDNISolone 4 mg oral tablet) See Instructions Follow package instructions Misc Prescription (Misc Prescription) 1 tab, Oral, once a day progesterone Misc Prescription (Misc Prescription) cholestrom one tablet twice daily Misc Prescription (Misc Prescription) Boswellia Complex 2 times a day Misc Prescription (Misc Prescription) zyhan 3 times a day with food testosterone (testosterone 2% transdermal cream) once a day zolpidem (Ambien 5 mg oral tablet) 1 Tablet(s), Oral, once a day (at bedtime) Please note dose change due to new FDA guidelines / [place] Stop Taking the Following Medications: lisinopril (lisinopril 5 mg oral tablet) Medication list as of 08-27-13 13:02 Attention: If you have any medications at [...] emergency. Electronically Signed By: KIMBERLYN MAYER RN, MARINE FIREMAN Signed On:27-AUG-2013 13:02:35 Additional Information: Source: [facility] POWERCHART Document Id: [id number] Miscellaneous - Meredith Tobias, L.P.N. - 08/27/2013 12:26 PM CDT Adult Parole Director Intake/History Adult Parole Director Intake/History Entered On: 08/27/2013 12:30 CDT Performed On: 08/27/2013 12:26 CDT by MEREDITH TOBIAS LPN Intake Chief Complaint : Increased non productive cough x2-3wks. Pain on sides when coughing. Wheezing. Difficulty sleeping at night. Temperature Core : 36.9 DegC(Converted to: 98.4 DegF) Peripheral Pulse Rate : 64 /min Respiratory Rate : 16 /min Systolic Blood Pressure : 106 mmHg Diastolic Blood Pressure : 74 mmHg NIBP Mean : 85 mmHg BP Location : Left upper extremity Blood Pressure Cuff Size : Regular SpO2 : 98 % Oxygen Therapy : Room air Actual Weight : 69.4 kg(Converted to: 153 lb 0 oz) Weight Source : Standing scale Dosing Weight Clinic : 69.4 kg MEREDITH TOBIAS LPN - 08/27/2013 12:26 CDT General Info Information Given By : Patient Preferred Communication Mode : Verbal Languages : Hungarian MEERDITH TOBIAS LPN - 08/27/2013 12:26 CDT Subjective Pain Symptoms : No MEREDITH TOBIAS LPN - 08/27/2013 12:26 CDT Dependent Habits Tobacco Use/Currently Using : No Exposure to Tobacco Smoke : Care provider denies smoking in home Smoking Status : Former smoker MEREDITH TOBIAS [facility] - 08/27/2013 12:26 CDT Tobacco Use Grid Type : Cigarettes Last Use : age 32 JATINDER MEREDITH Herrera [facility] - 08/27/2013 12:26 CDT Alcohol Use : Yes MEREDITH TOBIAS [facility] - 08/27/2013 12:26 CDT Caffeine Use Grid Caffeine Use : Current Type : Coffee Frequency : Daily MEREDITH TOBIAS [facility] - 08/27/2013 12:26 CDT Recreational Drug Use Grid Drug Use : None MEREDITH TOBIAS [facility] - 08/27/2013 12:26 CDT Source: [employer] Document Id: [id number] CDT!39 documented in this encounter Plan of Treatment Upcoming Encounters Date Type Specialty Care Team Description 02/02/2022 Immunization Family Medicine 02/12/2022 Office Visit Dermatology Lacy Dykes M.D. [address] [place], [place] [phone] (Wo rk) 02/22/2022 Office Visit Orthopedic Surgery Kimberlyn Mayer APRN C.N.P., D.N.P. [address], [place] [phone] (Wo rk) 03/12/2022 Diagnostic Otorhinolaryngology Blanka Carranza, C.N.P. [address] [place] [address] Aleena Hassan Au.D. [address] [place] [address] documented as of this encounter Procedures Procedure Name Priority Date/Time Associated Diagnosis Comme nts AUTOMATED Routine 08/27/2013 1:21 PM Results f or this DIFFERENTIAL, B CDT procedure ar e in the results section. CBC WITH Routine 08/27/2013 1:21 PM Results f or this DIFFERENTIAL, B CDT procedure ar e in the results section. documented in this encounter Results Automated Differential (08/27/2013 1:21 PM CDT) P athologist Signature Neutro % 59.9 42.0 - POWERCHART 77.0 Lymphocytes % 31.5 23.0 - POWERCHART 44.0 HX Childress % 6.6 2.0 - 18.0 POWERCHART HX Eos % 1.6 1.0 - 5.0 POWERCHART HX Baso % 0.4 0.0 - 1.0 POWERCHART Absolute 4.52 1.70 - POWERCHART Neutrophils 7.00 109L Lymphocytes 2.38 0.90 - POWERCHART 2.90 X109L Monocytes 0.50 0.30 - POWERCHART 0.90 X109L Eosinophils 0.12 0.05 - POWERCHART 0.50 X109L Absolute 0.03 0.00 - POWERCHART Basophil 0.30 X109L Specimen Anatomical Collection Method Collection Time Receive d Time (Source) Location / / Volume Laterality Blood 08/27/2013 1:21 PM 4 1:21 CDT PM CDT Kimberlyn Mayer APRN, C.N.P., D.N.P. LAB BLOOD ADD-ON Performing Organization Address City/State/ZIP Code Phon e Number POWERCHART (ABNORMAL) CBC with Differential (08/27/2013 1:21 PM CDT) [facility] Signature Leukocytes 7.6 3.4 - 10.5 POWERCHART X109L Erythrocytes 4.57 3.90 - POWERCHART 5.03 P1734T Hemoglobin 15.4 12.0 - POWERCHART 15.5 GDL Hematocrit 45.4 (H) 34.9 - POWERCHART 44.5 MCV 99.3 (H) 82.0 - POWERCHART 98.0 FL HX RDW 12.6 11.9 - POWERCHART 15.5 Platelet Count 266 150 - 450 POWERCHART X109L HXDifferential? Auto POWERCHART Specimen (Source) Anatomical Collection Method Collection Time Re ceived Time Location / / Volume Laterality Blood 08/27/2013 1:21 PM CDT Kimberyln Mayer APRN, C.N.P., D.N.P. LAB BLOOD ADD-ON Performing Organization Address City/State/ZIP Code Phon e Number POWERCHART documented in this encounter Visit Diagnoses Not on filedocumented in this encounter Additional Health Concerns Assessment Noted Time PHQ-9 Depression Total Score: 1 04/13/2013 11:36 AM CS T documented as of this encounter
--- OUTSIDE RECORDS SUMMARY | 2022-01-31 09:42 | XMS_ITS | Encounter Summary ---
:1955 Author Organization [facility] Address [address] [place] [address] Care Team Providers Name Role Phone Unavailable Primary Care Provider Unavailable Encounter Details Date Type Department Care Team Description 05/17/2013 Hospital Encounter HX [facility] Kimberlyn Mayer, JOSE DANIEL, C.N.P., D. N.P. [address] [place] [phone] (Wo rk) Social History Tobacco Use Types Packs/Day Years Used Date Smoking Tobacco: Never Assessed Alcohol Habits Answer Date Recorded How often do you have a drink containing 4 or more times a [place] 07/30/2021 alcohol? How many drinks containing [...] or relatives? How often do you attend rastafari or Patient refused 2021 buddhism services? 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 documented as of this encounter Last Filed Vital Signs Vital Sign Reading Time Taken Comments Blood Pressure 120/60 05/17/2013 11:45 AM WINDER TENDER Pulse 76 05/17/2013 11:45 AM WINDER TENDER Temperature - - Respiratory Rate 16 05/17/2013 11:45 AM WINDER TENDER Oxygen Saturation - - Inhaled Oxygen Concentration - - Weight 70.1 kg (154 lb 8.7 oz) 05/17/2013 11:45 AM WINDER TENDER Height - - Body Mass Index 27.04 05/03/2013 12:09 PM WINDER TENDER documented in this encounter Medications at Time of Discharge Medication Sig Dispensed Refills Start Date End Date B.ANI/L.ACI/L.BERNICE/L.PLAN/ Take 1 capsule by 0 06/2012 L.TASH (PROBIOTIC FORMULA mouth daily. ORAL) documented as of this encounter Progress Notes Kimberlyn Mayer, JOSE DANIEL, C.N.P. - 05/17/2013 11:31 AM CST [id number] CHIEF COMPLAINT/REASON FOR VISIT Urinary symptoms. HISTORY OF PRESENT ILLNESS Priscilla is a 57-year-old female who comes in today with dysuria, urgency and frequency that she has noted since yesterday. She denies any back pain, fevers or chills. She states that she is recovering from viral symptoms, which she feels much better for other than she continues to have a cough that keeps her up at night and during the day. MEDICATIONS New reconciled medication: Bactrim DS 1 tablet twice daily for 3 days. Tessalon Perles 100 mg 1 tablet up to 3 times daily as needed for cough. ALLERGIES Wasps/hornets venom. DTaP. VITAL SIGNS Her temperature is 37. PHYSICAL EXAMINATION GENERAL: Patient appears nondistressed. SKIN: Her skin is warm and dry. ABDOMEN: No CVA tenderness noted. LABORATORY: Urine shows moderate bacteria, positive blood, and positive WBC's. IMPRESSION/REPORT/PLAN 1. Urinary tract infection. We will treat with Bactrim DS 1 tablet by mouth twice daily for 3 days. There was a refill that was also submitted. 2. Cough. This is viral in nature. I did write her a prescription for Tessalon Perles to be used as needed. Patient Education Ready to learn No apparent learning barriers were identified Learning preferences include listening Explained diagnosis and treatment plan Patient/Child/Caregiver expressed understanding of the content Brooks Contreras/zoey Electronically Signed By: KIMBERLYN MAYER RN, CNP On: 05/20/2013 06:41 PM Source: [facility] MHSDOLBEYNONRADSYS Document Id: [id number] ER TENDER documented in this encounter Miscellaneous Notes Miscellaneous - Kimberlyn Mayer APRN, C.N.P. - 05/17/2013 12:17 PM CST Ambulatory Patient Summary [address] [address] Visit Information Name: PRISCILLA HAMPTON [facility] Number: [id number] Current Date: 05/17/2013 12:17:02 Physicians Attending Provider: KIMBERLYN MAYER RN, KIER HAND Primary Care Provider: KIMBERLYN MAYER RN, KIER HAND PRISCILLA HAMPTON COSMO has been given the [...] cap, Oral, three times a day x 10 day(s) Routed to [address] [address] bifidobacterium-lactobacillus (Probiotic Formula oral capsule) 1 cap, Oral, once a day calcium-vitamin D (Calcium 600+D) 1200mg po daily citalopram (Celexa 20 mg oral tablet) 1 Tablet(s), Oral, once a day epinephrine (EpiPen Auto-Injector 0.3 mg injectable kit) 0.3 mg, Intramuscular, as directed as needed for Shortness of breath / Wheezing Severe allergic reaction famciclovir (Famvir 500 mg oral tablet) 1 Tablet(s), Oral, every 8 hours at onset of cold sore x 1day. fluticasone nasal (Flonase 50 mcg/inh nasal spray) 2 Dallas(s), Nostrils(Both), once a day levothyroxine (Synthroid 137 mcg (0.137 mg) oral tablet) 1 Tablet(s), Oral, once a day NYDIA- No generic please. to cover while on vacation liothyronine (liothyronine 5 mcg oral tablet) 1 Tablet(s), Oral, once a day Misc Prescription (Misc Prescription) 1 tab, Oral, once a day progesterone Misc Prescription (Misc Prescription) cholestrom one tablet twice daily Misc Prescription (Misc Prescription) Boswellia Complex 2 times a day Misc Prescription (Misc Prescription) zyhan 3 times a day with food sulfamethoxazole-trimethoprim (Bactrim DS 800 mg-160 mg oral tablet) 1 Tablet(s), Oral, two times a day x 3 day(s) New Routed to [address] [address] testosterone (testosterone 2% transdermal cream) once a day zolpidem (Ambien 10 mg oral tablet) 1 Tablet(s), Oral, once a day (at bedtime) 1/2 to 1 tab as directed. Stop Taking the Following Medications: Medication list as of 05-17-13 12:17 Attention: If you have any medications at home that are not on this list, DO NOT take them until youcontact your provider for clarification. Give a copy of your medication list to your primary care provider. Update your medication list any time medications or doses are changed and carry your medication list at all times in case of emergency. Your Allergies & Intolerances Substance Reaction Symptoms Category Comments Daptacel (DTaP) Drug Drug Your Problem List Problem Status Onset Comments [...] unknown Campylobacter diarrhea Active 07/06/12 onset unknown Your Upcoming Appointments Date Time Location Reason Provider No Appointments found Attention: Contact your local Clinic if further appointment detail needed. Your Goals/Additional instructions: Source: [facility] POWERCHART Document Id: [id number] ER TENDER Miscellaneous - Kimberlyn Mayer APRN, C.N.P. - 05/17/2013 12:17 PM CST Ambulatory Depart Summary [address] [address] Visit Information Name: MEMOPRISCILLA [facility] Number: [id number] Visit Date: 05/17/2013 12:16:57 Attending Provider: KIMBERLYN MAYER RN, KIER HAND Primary Care Provider: KIMBERLYN MAYER RN, KIER HAND MEMO PRISCILLA WILBURN has been given the following list of [...] cap, Oral, three times a day x 10 day(s) Routed to [address] [address] bifidobacterium-lactobacillus (Probiotic Formula oral capsule) 1 cap, Oral, once a day calcium-vitamin D (Calcium 600+D) 1200mg po daily citalopram (Celexa 20 mg oral tablet) 1 Tablet(s), Oral, once a day epinephrine (EpiPen Auto-Injector 0.3 mg injectable kit) 0.3 mg, Intramuscular, as directed as needed for Shortness of breath / Wheezing Severe allergic reaction famciclovir (Famvir 500 mg oral tablet) 1 Tablet(s), Oral, every 8 hours at onset of cold sore x 1day. fluticasone nasal (Flonase 50 mcg/inh nasal spray) 2 Dallas(s), Nostrils(Both), once a day levothyroxine (Synthroid 137 mcg (0.137 mg) oral tablet) 1 Tablet(s), Oral, once a day NYDIA- No generic please. to cover while on vacation liothyronine (liothyronine 5 mcg oral tablet) 1 Tablet(s), Oral, once a day Misc Prescription (Misc Prescription) 1 tab, Oral, once a day progesterone Misc Prescription (Misc Prescription) cholestrom one tablet twice daily Misc Prescription (Misc Prescription) Boswellia Complex 2 times a day Misc Prescription (Misc Prescription) zyhan 3 times a day with food sulfamethoxazole-trimethoprim (Bactrim DS 800 mg-160 mg oral tablet) 1 Tablet(s), Oral, two times a day x 3 day(s) New Routed to [address] [address] testosterone (testosterone 2% transdermal cream) once a day zolpidem (Ambien 10 mg oral tablet) 1 Tablet(s), Oral, once a day (at bedtime) 1/2 to 1 tab as directed. Stop Taking the Following Medications: Medication list as of 05-17-13 12:16 Attention: If you have any medications at home that are not on this list, DO NOT take them until youcontact your provider for clarification. Give a copy of your medication list to your primary care provider. Update your medication list any time medications or doses are changed and carry your medication list at all times in case of emergency. Additional Information: Source: [facility] POWERCHART Document Id: [id number] ER TENDER Miscellaneous - Wm Louis L.P.N. 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 Intake/History Entered On: 05/17/2013 11:49 WINDER TENDER Performed On: 05/17/2013 11:45 WINDER TENDER by WM LOUIS LPN Intake Chief Complaint : questions UTI urgency dysuria started yesterday Temperature Core : 37 DegC(Converted to: 98.6 DegF) Peripheral Pulse Rate : 76 /min Respiratory Rate : 16 /min Heart Rhythm : Regular Systolic Blood Pressure : 120 mmHg Diastolic Blood Pressure : 60 mmHg NIBP Mean : 80 mmHg BP Location : Right upper extremity Blood Pressure Cuff Size : Regular Actual Weight : 70.1 kg(Converted to: 154 lb 9 oz) Weight Source : Standing scale Dosing Weight Clinic : 70.1 kg WM LOUIS LPN - 05/17/2013 11:45 WINDER TENDER General Info Information Given By : Patient Preferred Communication Mode : Verbal Languages : Syriac WM LOUIS LPN - 05/17/2013 11:45 WINDER TENDER Subjective Pain Symptoms : Yes WM LOUIS LPN - 05/17/2013 11:45 WINDER TENDER Pain Pain Assessment Grid Pain 1 Location : Other: dysuria Laterality : Bilateral Intensity : 1 WM LOUIS LPN - 05/17/2013 11:45 WINDER TENDER Dependent Habits Tobacco Use/Currently Using : No Exposure to Tobacco Smoke : Care provider denies smoking in home Smoking Status : Former smoker WM LOUIS LPN - 05/17/2013 11:45 WINDER TENDER Tobacco Use Grid Type : Cigarettes Last Use : age 32 WM LOUIS LPN - 05/17/2013 11:45 WINDER TENDER Caffeine Use Grid Caffeine Use : Current Type : Coffee Frequency : Daily WM LOUIS LPN - 05/17/2013 11:45 WINDER TENDER Recreational Drug Use Grid Drug Use : None WM LOUIS LPN - 05/17/2013 11:45 WINDER TENDER Source: [facility] POWERCHART Document Id: [id number] WINDER TENDER!43 ER TENDER documented in this encounter Plan of Treatment Upcoming Encounters Date Type Specialty Care Team Description 02/02/2022 Immunization Family Medicine 02/12/2022 Office Visit Dermatology Lacy Dykes M.D. [address] [place], [place] [phone] (Wo rk) 02/22/2022 Office Visit Orthopedic Surgery Kimberlyn Mayer APRN C.N.P., D.N.P. [address] [place] [phone] (Wo rk) 03/12/2022 Diagnostic Otorhinolaryngology Blanka Carranza, C.N.P. [address] [place], [place] [phone] Aleena Hassan Au.D. [address] [place] [phone] documented as of this encounter Procedures Procedure Name Priority Date/Time Associated Comments Diagnosis HXUR % DYSMORPHIC RBC Routine 05/17/2013 11:47 Re sults for this AM WINDER TENDER procedure are i n the results section. URINALYSIS, ROUTINE Routine 05/17/2013 11:47 Resu lts for this AM WINDER TENDER procedure are i n the results section. URINE MICROSCOPIC Routine 05/17/2013 11:47 Result s for this AM WINDER TENDER procedure are i n the results section. documented in this encounter Results HXUR % DYSMORPHIC RBC (05/17/2013 11:47 AM WINDER TENDER) P athologist Signature Dysmorphic RBC <=25 <=25 POWERCHART Specimen Anatomical Collection Method Collection Time Receive d Time (Source) Location / / Volume Laterality Urine 05/17/2013 11:47 05/17/2013 AM WINDER TENDER 11:47 AM WINDER TENDER Darrell Rios APRNN.PPhil, D.N.P. LAB HISTORICAL ORDE RS Performing Organization Address [facility]/ZIP Code Phon e Number POWERCHART Urine Microscopic (05/17/2013 11:47 AM WINDER TENDER) [facility] Method Time Signature HXUr WBC 51-100 POWERCHART Red Blood Cell 3-10 0 - 2 POWERCHART Clump, Urine HXUr Bacteria Moderate POWERCHART HXUr Epithelial Occasional POWERCHART Comment: Squamous Specimen Anatomical Collection Method Collection Time Receive d Time (Source) Location / / Volume Laterality Urine 05/17/2013 11:47 05/17/2013 AM WINDER TENDER 11:47 AM WINDER TENDER Darrell Rios APRNN.P., D.N.P. LAB URINE ORDERABLE S Performing Organization Address [facility] Phon e Number POWERCHART Urinalysis, Routine (05/17/2013 11:47 AM WINDER TENDER) [facility] Method Time Signature HXUr Color Yellow Yellow POWERCHART Appearance Slightly Clear POWERCHART Cloudy Glucose Negative Negative POWERCHART HXBILIRUBIN Negative Negative POWERCHART Ketones, QL(U) 1+ Negative POWERCHART Specific 1.025 1.000 - POWERCHART Epworth, POCT, U 1.030 pH, POCT, Urine 5.5 5.0 - 8.0 POWERCHART Protein, Ur, Dip Trace Negative POWERCHART Urobilinogen 0.2 POWERCHART HXNITRITE Negative Negative POWERCHART HXBLOOD 2+ Negative POWERCHART Leukocyte 2+ Negative POWERCHART Esterase Source Clean Void POWERCHART Urine Specimen (Source) Anatomical Collection Method Collection Time Re ceived Time Location / / Volume Laterality Urine 05/17/2013 11:47 AM WINDER TENDER Zoey Rios APRN.N.P., D.N.P. LAB URINE ORDERABLE S Performing Organization Address City/[facility]/ZIP Code Phon e Number POWERCHART documented in this encounter Visit Diagnoses Not on filedocumented in this encounter Additional Health Concerns Assessment Noted Time PHQ-9 Depression Total Score: 1 04/13/2013 11:36 AM CS T documented as of this encounter
--- OUTSIDE RECORDS SUMMARY | 2022-01-31 09:42 | XMS_ITS | Encounter Summary ---
:1955 Author Organization [facility] Address [address] [place] [address] Care Team Providers Name Role Phone Unavailable Primary Care Provider Unavailable Encounter Details Date Type Department Care Team Description 06/16/2013 - Hospital Encounter [facility] Cedric Sweeney, 09/26/2013 KARLA Heaton [address] [place] [phone] Social History Tobacco Use Types Packs/Day Years Used Date Smoking Tobacco: Never Assessed Alcohol Habits Answer Date Recorded How often do you have a drink containing 4 or more times a w crow 07/30/2021 alcohol? How many drinks containing alcohol [...] you attend restorationist or Patient refused 2021 rastafarian services? 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 ORAL) documented as of this encounter Consult Notes Tushar Alcantar P.T. - 06/16/2013 12:00 AM CDT [id number] CHIEF COMPLAINT/REASON FOR VISIT This patient comes in with some pain in her left forearm as well as some pain in her left upper trapregion. She did see Dr. Sweeney who felt that she should try some cervical traction for this. As for the pain that she is having in her forearm, Dr. Sweeney feels that this may be some epicondylitis. He did give her a forearm brace for this. Patient states that this has been an ongoing issue for her. There is really no date of onset. She notes it has been going on long enough where she has become somewhat used to it. She has tried chiropractic therapy and massage therapy in the past. She has had x-rays of the cervical spine. She presently rates her pain as a 2/10 on a 0 to 10 pain scale. She feels that she probably would not even have considered therapy at this time but she felt she should followup with Dr. Sweeney' orders. She describes the pain as being intermittent at this time. She notes that she does a lot of traveling and she is sitting a lot. She is in the plane much of the time where she isnot very comfortable. She notes that she is home approximately 1 week out of the month. MEDICATIONS She takes Synthroid at this time. IMPRESSION/REPORT/PLAN Upon observation, the patient ambulates into therapy with no problem. She is not a fall risk at thistime being able to perform a tug test without difficulty. With patient in short sitting we did checkher mobility which is within functional limits. She is without any significant pain with these motions. We did perform compression/distraction. Compression with extension causes pain in the left upper trap region. However, it does not mimic any type of radicular symptoms at this time. To be noted is that the x-rays did show some show some degenerative changes in the cervical spine. There is no weakness noted in the upper extremities at this time. Sensory is intact. Reflexes are symmetrical bilaterally. Patient is with most discomfort in the upper trap itself. We did treat today with trial cervical traction, this not exceeding 18pounds at this time. It cycled on for 80 seconds and off for 5. From there we worked on some manual techniques concentrating on trigger point therapy. We also worked on str etching of the cervical spine as well as contract relax exercises. She tolerated this all well. We also instructed patient with exercises to address the tendinitis she is experiencing in her forearm. Illustrations were given to her for this. Patient Education Ready to learn No apparent learning barriers were identified Learning preferences include listening Explained diagnosis and treatment plan Patient/Child/Caregiver expressed understanding of the content GOALS: 1. To decrease pain in the upper traps to 0/10. 2. Patient independent with home exercises addressing condition of the wrist extensors. 3. Patient able to resume normal activity without difficulty. Patient may wish to try a home traction unit if this gives her some relief. We also, along with the exercises for epicondylitis, instructedpatient with exercises for upper trap strengthening and cervical stabilization. We reviewed exercises that she should not do at this time. PLAN OF CARE: Modalities if necessary along with manual techniques and strengthening. Prognosis is good at this time. ASSESSMENT: Patient is with some pain in the cervical spine. She is also having some issues with epicondylitis of the left forearm. It is noted that she does have degenerative changes of the cervical spine which is probably contributing to this. PLAN: Plan will be to see patient 1 to 2 times a week for the next 3 to 4 weeks if necessary. She istraveling quite often so it may be difficult to schedule her on a consistent basis. Karishma Boyle/[facility] cc: Cerdic Sweeney M.D. [address] [place] [address] Electronically Signed By: TUSHAR ALCANTAR On: 06/28/2013 11:22 AM Co-Signed By: CEDRIC SWEENEY MD On: 06/29/2013 04:59 PM Source: [facility] MHSDOLBEYNONRADSYS Document Id: [id number] documented in this encounter Miscellaneous Notes Miscellaneous - Kimberlyn Mayer, JOSE DANIEL, C.N.P. - 07/26/2013 1:27 PM CDT FW: Prescription routing temporarily unavailable Document Contains Addenda Addendum by NAIN REYNOLDS RN on 26 July 2013 13:44:40 CDT called to [facility], verified that it had gone through. From: KIMBERLYN MAYER RN, CABLE ASSEMBLER AND SWAGER To: NAIN REYNOLDS RN; Sent: 07/26/2013 13:27:38 CDT Subject: FW: Prescription routing temporarily unavailable The system is currently not able to route this prescription to the pharmacy. Please use another means to communicate this prescription to the intended pharmacy. RX already received at [id number] ;RX#[id number] Comments: RX already received at [id number] ;RX#[id number] Source: [facility] POWERCHART Document Id: [id number] Miscellaneous - Conversion, Historical Provider Ser - 07/26/2013 8:59 AM CDT Med Management Document Contains Addenda Addendum by CHRISTINA JULES V on 26 July 2013 10:43:49 CDT LVM w/ upate on private line Addendum by KIMBERLYN MAYER RN, CABLE ASSEMBLER AND SWAGER on 26 July 2013 10:13:39 CDT From: KIMBERLYN MAYER RN, CABLE ASSEMBLER AND SWAGER Sent: 07/26/2013 10:13:38 CDT Subject: RE:Med Management Approved Order:citalopram (Celexa 20 mg oral tablet) 1 tab(s) PO Daily Qty: 90 tab(s) Duration: 90 day(s) Refills: 3 Substitutions Allowed Route To Pharmacy - [facility] Signed by KIMBERLYN MAYER RN, PAOLO 07/26/2013 10:13:21 From: CHRISTINA JULES V To: KIMBERLYN MAYER RN, CABLE ASSEMBLER AND SWAGER; CHRISTINA JULES V; Sent: 07/26/2013 08:59:57 CDT Subject: Med Management On hold pending signature Order:citalopram (Celexa 20 mg oral tablet) 1 tab(s) PO Daily Qty: 90 tab(s) Duration: 90 day(s) Refills: 3 Substitutions Allowed Route To Pharmacy - [facility] Pt seen 2 weeks ago for URI & thought you renewed this. Not mentioned in notes. Last PHQ9 was 1 in April. Alert/SVT issues occurs so I am unable to authorize Source: [facility] POWERCHART Document Id: [id number] documented in this encounter Plan of Treatment Upcoming Encounters Date Type Specialty Care Team Description 02/02/2022 Immunization Family Medicine 02/12/2022 Office Visit Dermatology Lacy Dykes M.D. [address] [place], [place] [phone] (Lisha mccann) 02/22/2022 Office Visit Orthopedic Surgery Kimberlyn Mayer, JOSE DANIEL, C.N.P., D.N.P. [address] [place] [phone] (Lisha mccann) 03/12/2022 Diagnostic Otorhinolaryngology Blanka Carranza C.NPhilPPhil [address] [place], [place] [phone] Aleena Hassan Au.D. [address] [place] [phone] documented as of this encounter Visit Diagnoses Not on filedocumented in this encounter Additional Health Concerns Assessment Noted Time PHQ-9 Depression Total Score: 1 04/13/2013 11:36 AM CS T documented as of this encounter
--- OUTSIDE RECORDS SUMMARY | 2022-01-31 09:42 | XMS_ITS | Encounter Summary ---
:1955 Author Organization [facility] Address [address] [place] [address] Care Team Providers Name Role Phone Unavailable Primary Care Provider Unavailable Encounter Details Date Type Department Care Team Description 04/13/2013 Hospital Encounter HX [facility] Kimberlyn Mayer, JOSE DANIEL, C.N.P., D. N.P. [address] [place] [address] (Wo rk) Social History Tobacco Use Types Packs/Day Years Used Date Smoking Tobacco: Never Assessed Alcohol Habits Answer Date Recorded How often do you have a drink containing 4 or more times a w [place] 07/30/2021 alcohol? How many drinks containing alcohol [...] you attend gnosticist or Patient refused 2021 oriental orthodox services? [...] at Date Recorded Female 05/19/2017 11:19 AM SOLAR SALES ENERGY ADVISOR documented as of this encounter Last Filed Vital Signs Vital Sign Reading Time Taken Comments Blood Pressure 128/76 04/13/2013 8:38 AM SOLAR SALES ENERGY ADVISOR Pulse 70 04/13/2013 8:38 AM SOLAR SALES ENERGY ADVISOR Temperature - - Respiratory Rate 16 04/13/2013 8:38 AM SOLAR SALES ENERGY ADVISOR Oxygen Saturation - - Inhaled Oxygen Concentration - - Weight 71.4 kg (157 lb 6.5 oz) 04/13/2013 8:38 AM SOLAR SALES ENERGY ADVISOR Height - - Body Mass Index 27.55 09/11/2012 9:27 AM CDT documented in this encounter Medications at Time of Discharge Medication Sig Dispensed Refills Start Date End Date B.ANI/L.ACI/L.BERNICE/L.PLAN/ Take 1 capsule by 0 06/2012 L.TASH (PROBIOTIC FORMULA mouth daily. ORAL) documented as of this encounter Progress Notes Kimberlyn Mayer, JOSE DANIEL, C.N.P. - 04/13/2013 8:26 AM CST [id number] CHIEF COMPLAINT/REASON FOR VISIT 1. Diarrhea. HISTORY OF PRESENT ILLNESS 1. Diarrhea. Priscilla is a pleasant 57-year-old female who comes in today with chronic issues of diarrhea that she has had for multiple years, she would like to further be referred to GI for evaluation of this. She has seen her chiropractor who did some lab tests on her, she went on a gluten-free diet and noted the diarrhea to be a little bit improved but now has noted it to return. Patient states that she has had started her day usually with a loose diarrhea type stool for multiple years, when she went on the gluten-free diet she would have some days of normal bowel movements within the morning. She is now has noted explosive diarrhea that progressively has just getting worse. In 2011 she had a Campylobacter infection, was treated appropriately but had become excessively sick from that. She denies any episodes of constipation. She has always avoided, milk. She states that when she does have a diarrhea episode she has minimal cramping with this significant diarrhea. She has not noted any blood in her stools. She reports that she had a colonoscopy about 4 years ago which did note a polyp, they repeated it 3 years later which was approximately a year ago and patient states that it was benign. I do not have those records as this was done in [place]. She does not recall them doing any biopsies. She believes she has had an H. pylori infection in the past but she cannot recall for sure. She has never been diagnosed with colitis, but is very concerned that her symptoms seem to be progressively getting worse. She would like to see a specialist. She does have a known history of hypothyroidism as well as insomnia, a history of SVT and dysthymic disorder. There is a strong family history of coronary artery disease also. Patient does take multiple supplements from her chiropractor. MEDICATIONS She is on: Celexa 20 mg by mouth daily. Epi Pen as-needed. Famvir 500 mg 3 times daily as needed. Synthroid 137 mcg by mouth daily. Ambien 5 mg at bedtime on an occasional basis. Probiotics 1 tablet twice daily. Calcium with Vitamin D 1200 mg by mouth daily. Liothyronine 5 mcg daily. Zyhan 3-times daily. Boswellia complex 2 times daily. Cholestrom twice daily. Progesterone 1 tablet daily. Testosterone cream daily. ALLERGIES Wasp Hornet venom. dTaP. SYSTEMS REVIEW Patient denies any fevers. She denies any abdominal pain. She denies any joint swelling, headaches, activity intolerance, chest pain, shortness of breath. She denies any current urinary symptoms. She does have a history of having her bladder tacked in the past. No current infectious symptoms, PAST MEDICAL/SURGICAL HISTORY MEDICAL - Noteworthy for: Dysthymic disorder. Family history of ischemic cardiac disease. Family history of osteoporosis. Hypothyroidism following radioiodine therapy. Insomnia. A history of the Campylobacter infection. Osteopenia. Plantar fasciitis, Increased stress. SVT. Thyroid nodule. SURGICAL Colonoscopy . Bladder surgery. Breast surgery. Hand surgery. Tonsillectomy. SOCIAL HISTORY Patient works a significantly high stress job. She does travel a significant amount. She is a formersmoker. She quit at age 32. Does drink alcohol on occasional basis. Starts her day off with 1 to 2 cups of caffeine. Is in a monogamous relationship. She is very active, exercises regularly, is very intune with her health. FAMILY HISTORY Mother with osteoporosis. Father with prostate cancer, coronary artery disease, hyperlipidemia, hypertension and an MA. A brother with hyperlipidemia. VITAL SIGNS Blood pressure: 128/76. Pulse: 70. RESPIRS: 16. Weight: 71.4 kg. PHYSICAL EXAMINATION IN GENERAL: Patient appears non-distressed. SKIN: Her skin is warm and dry. THYROID: Her thyroid was assessed, I am unable to appreciate any new abnormalities. HEART: With a regular rate rhythm. Normal S1, S2. LUNGS: Are clear to auscultation. ABDOMEN: Soft. There is no organomegaly. No tenderness to palpation. Normoactive bowel sounds. EXTREMITIES: Without any edema. IMPRESSION/REPORT/PLAN 1. Diarrhea. 2. History of hypothyroidism, PLAN: I would like to obtain some laboratory studies which will include a TSH, T3-T4, CBC a CRP and a basic metabolic panel as well as stool cultures. I will further refer patient to GI for evaluation of this. This is not classic irritable bowel, I do not know if there is a component of colitis that could be causing some of her symptoms but patient would really like to see a specialist to further help differentiate this. She thinks that she is more susceptible to GI infections because of it. I will try to obtain her colonoscopy report from [place] prior to her GI visit. PATIENT EDU #1 Patient Education Ready to learn No apparent learning barriers were identified Learning preferences include listening Explained diagnosis and treatment plan Patient/Child/Caregiver expressed understanding of the content. Mila ContrerasNPhilPPhil/ritu Electronically Signed By: KIMBERLYN MAYER RN, STEERSMAN On: 04/14/2013 06:56 PM Source: [facility] MHSDOLBEYNJORGESYS Document Id: [id number] R SALES ENERGY ADVISOR documented in this encounter Miscellaneous Notes Miscellaneous - Kimberlyn Mayer APRN, C.N.P. - 04/14/2013 7:01 PM CST Normal Results Letter 14 April 2013 PRISCILLA HAMPTON [id number] [facility] [id number] Dear PRISCILLA HAMPTON, I am pleased to report that your results from the following diagnostic test(s) are normal. If you have questions or concerns, please do not hesitate to call our office. Result Name Current Result Normal Range T4 Total-Martinez (mcg/dL) 8.1 04/13/2013 5.0 - 12.5 - T3 Free-Martinez (pg/mL) 3.0 04/13/2013 2.0 - 3.5 - Sincerely, KIMBERLYN MAYER [address] [place] [address] Electronic Signature Electronically Signed By: KIMBERLYN MAYER RN, STEERSMAN On: 14 April 2013 This document has images extracted. Source: [facility] [employer] Document Id: [id number] Miscellaneous - Kimberlyn Mayer APRN, C.N.P. - 04/14/2013 8:15 AM CST Normal Results Letter 14 April 2013 PRISCILLA HAMPTON [address] [facility] [id number] Dear PRISCILLA HAMPTON, I am pleased to report that your results from the following diagnostic test(s) are normal. Your electrolytes, kidney function, sugar, blood counts, thyroid test, and inflammatory marker (CRP) are satisfactory. Please follow up with us as we discussed during your visit or sooner if you have any concerns. If you have questions or concerns, please do not hesitate to call our office. Result Name Current Result Previous Result Normal Range Sodium Lvl (mM/L) 137.1 04/13/2013 135.0 - 145.0 Potassium Lvl (mmol/L) 4.2 04/13/2013 3.6 - 4.8 Chloride (mmol/L) 99 04/13/2013 98 - 107 CO2 (mmol/L) 27.0 04/13/2013 23.0 - 29.0 AGAP (mmol/L) 15 04/13/2013 10 - 20 Glucose Lvl (mg/dL) 98 04/13/2013 96 07/08/2012 70 - 139 Creatinine (mg/dL) 0.83 04/13/2013 0.60 - 1.30 EGFR (MDRD) (mL/min/1.73m2) >60 04/13/2013 >=60 - EGFR (MDRD) (mL/min/1.73m2) >60 04/13/2013 >=60 - BUN (mg/dL) 12 04/13/2013 7 - 18 Calcium Lvl (mg/dL) 9.3 04/13/2013 8.6 - 10.0 CRP (mg/dL) 0.1 04/13/2013 0.0 - 0.8 TSH (mcIU/mL) 0.65 04/13/2013 1.90 10/22/2012 (L) 0.12 07/08/2012 0.30 - 5.00 Hgb (g/dL) 15.0 04/13/2013 12.0 - 15.5 Hct (%) (H) 46.2 04/13/2013 34.9 - 44.5 WBC (x10(9)/L) 6.4 04/13/2013 3.4 - 10.5 RBC (x10(12)/L) 4.68 04/13/2013ell 3.90 - 5.03 MCV (fL) (H) 98.7 04/13/2013 82.0 - 98.0 RDW (%) 12.2 04/13/2013 11.9 - 15.5 Platelet (x10(9)/L) 255 04/13/2013 150 - 450 Neutro % (%) 73.7 04/13/2013 42.0 - 77.0 Lymph % (%) (L) 18.6 04/13/2013 23.0 - 44.0 Weston % (%) 4.1 04/13/2013 2.0 - 18.0 Eos % (%) 2.8 04/13/2013 1.0 - 5.0 Baso % (%) 0.8 04/13/2013 0.0 - 1.0 Neutro Absolute (10(9)/L) 4.72 04/13/2013 1.70 - 7.00 Lymph Absolute (x10(9)/L) 1.19 04/13/2013 0.90 - 2.90 Weston Absolute (x10(9)/L) (L) 0.26 04/13/2013 0.30 - 0.90 Eos Absolute (x10(9)/L) 0.18 04/13/2013 0.05 - 0.50 Baso Absolute (x10(9)/L) 0.05 04/13/2013 0.00 - 0.30 Differential? Auto 04/13/2013 Sincerely, KIMBERLYN MAYER [address] [place] [address] Electronic Signature Electronically Signed By: KIMBERLYN MAYER RN, STEERSMAN On: 14 April 2013 This document has images extracted. Source: [facility] [employer] Document Id: [id number] Electronically signed by Jennifer [facility] Interactive Developer [id number] at 09/03/2016 3:15 PM CDT Miscellaneous - Obed Pereira, L.P.N. - 04/13/2013 11:36 AM CST PHQ-9 PHQ-9 Entered On: 04/13/2013 11:37 SOLAR SALES ENERGY ADVISOR Performed On: 04/13/2013 11:36 SOLAR SALES ENERGY ADVISOR by OBED PEREIRA LPN PHQ-9 Little interest or pleasure in doing things : Not at all Feeling down, depressed, or hopeless : Not at all Trouble falling or staying asleep, or sleeping too much : Not at all Feeling tired or having little energy : [...] Not at all PHQ-9 Calculated Score : 1 Problems make work, home, or dealing with others : Not difficult at all OBED PEREIRA LPN - 04/13/2013 11:36 SOLAR SALES ENERGY ADVISOR Source: [facility] [employer] Document Id: [id number] SOLAR SALES ENERGY ADVISOR!13 R SALES ENERGY ADVISOR Miscellaneous - Kimberlyn Mayer APRN, C.N.P. - 04/13/2013 10:57 AM CST General Message Document Contains Addenda Addendum by SYBIL MAXWELL on 13 April 2013 14:39:11 SOLAR SALES ENERGY ADVISOR From: SYBIL MAXWELL To: KIMBERLYN MAYER RN, PAOLO; Sent: 04/13/2013 14:39:11 SOLAR SALES ENERGY ADVISOR Subject: RE: General Message done From: KIMBERLYN MAYER RN, CNP To: SYBIL MAXWELL; Sent: 04/13/2013 10:57:05 SOLAR SALES ENERGY ADVISOR Subject: General Message please obtain her last Colonoscopy report from [place] for our chart but also prior to GI visit. Thanks. Source: [facility] POWERCHART Document Id: [id number] Miscellaneous - Kimberlyn Mayer APRN, C.N.P. - 04/13/2013 9:38 AM CST Ambulatory Patient Summary [address] [address] Visit Information Name: PRISCILLA HAMPTON [facility] Number: [id number] Current Date: 04/13/2013 09:38:16 Physicians Attending Provider: KIMBERLYN MAYER RN, STEERSMAN Primary Care Provider: KIMBERLYN MAYER RN, STEERSMAN PRISCILLA HAMPTON has been given the following [...] once a day Misc Prescription (Misc Prescription) Boswellia Complex 2 times a day This is a CHANGE Misc Prescription (Misc Prescription) zyhan 3 times a day with food This is a CHANGE Misc Prescription (Misc Prescription) 1 tab, Oral, once a day progesterone Misc Prescription (Misc Prescription) cholestrom one tablet twice daily testosterone (testosterone 2% transdermal cream) once a day zolpidem (Ambien 10 mg oral tablet) 1 Tablet(s), Oral, once a day (at bedtime) 1/2 to 1 tab as directed. Stop Taking the Following Medications: Medication list as of 04-13-13 09:38 Attention: If you have any medications at [...] Osteoporosis Active 06/11/11 onset unknown Insomnia Active 04/27/11 Date of onset unknown Plantar heel pain [...] Source: [facility] POWERCHART Document Id: [id number] R SALES ENERGY ADVISOR Miscellaneous - Kimberlyn Mayer APRN, C.N.P. - 04/13/2013 9:37 AM CST Ambulatory Depart Summary [address] [address] Visit Information Name: PRISCILLA HAMPTON [facility] Number: [id number] Visit Date: 04/13/2013 09:37:26 Attending Provider: KIMBERLYN MAYER RN, STEERSMAN Primary Care Provider: KIMBERLYN MAYER RN, STEERSMAN PRISCILLA HAMPTON has been given the following [...] once a day Misc Prescription (Misc Prescription) Boswellia Complex 2 times a day This is a CHANGE Misc Prescription (Misc Prescription) zyhan 3 times a day with food This is a CHANGE Misc Prescription (Misc Prescription) 1 tab, Oral, once a day progesterone Misc Prescription (Misc Prescription) cholestrom one tablet twice daily testosterone (testosterone 2% transdermal cream) once a day zolpidem (Ambien 10 mg oral tablet) 1 Tablet(s), Oral, once a day (at bedtime) 1/2 to 1 tab as directed. Stop Taking the Following Medications: Medication list as of 04-13-13 09:37 Attention: If you have any medications at home that are not on this list, DO NOT take them until youcontact your provider for clarification. Give a copy of your medication list to your primary care provider. Update your medication list any time medications or doses are changed and carry your medication list at all times in case of emergency. Additional Information: Source: [facility] POWERCHART Document Id: [id number] R SALES ENERGY ADVISOR Miscellaneous - Kimberlyn Mayer APRN, C.N.P. - 04/13/2013 9:36 AM CST General Message Document Contains Addenda Addendum by SYBIL MAXWELL on 14 April 2013 15:42:00 SOLAR SALES ENERGY ADVISOR From: SYBIL MAXWELL To: KIMBERLYN MAYER RN, STEERSMAN; Sent: 04/14/2013 15:42:00 SOLAR SALES ENERGY ADVISOR Subject: RE: General Message Disregard previous message as patient has opted to cancel her 04-19-13. I have rescheduled her for Friday, with Dr. Elia Coulter 2:45 pm [facility] [address] I told her you would communicate with Dr. Coulter. Addendum by SYBIL MAXWELL on 13 April 2013 15:09:21 SOLAR SALES ENERGY ADVISOR From: SYBIL MAXWELL To: KIMBERLYN MAYER RN, STEERSMAN; Sent: 04/13/2013 15:09:21 SOLAR SALES ENERGY ADVISOR Subject: RE: General Message I have left a VM for patient to call me. Patient is scheduled for Friday with Dr. Mason Paz at 1:40pm [place] [address] [facility] [address]. She will need to arrive early to check in at Registration, Lobby level to take of Insurance, then report to [facility] 9th Floor [phone] From: KIMBERLYN MAYER RN, STEERSMAN To: SYBIL MAXWELL; Sent: 04/13/2013 09:36:01 SOLAR SALES ENERGY ADVISOR Subject: General Message Needs GI consult in [place]- Please talk to me about provider. Dx: Diarrhea- Reoccurent GI infection Contact her via cell: [phone] Source: [facility] POWERCHART Document Id: [id number] Miscellaneous - Wm Lousi L.PPhilNPhil - 04/13/2013 8:47 AM CST Health Assessment Health Assessment Entered On: 04/13/2013 8:48 SOLAR SALES ENERGY ADVISOR Performed On: 04/13/2013 8:47 SOLAR SALES ENERGY ADVISOR by WM LOUIS LPN Health Assessment Complete Health Assessment Complete or Modified : Annual Health Assessment Annual Health Assessment Completed : Yes WM LOUIS LPN - 04/13/2013 8:47 SOLAR SALES ENERGY ADVISOR Nutrition Nutrition Risk Factors by History Adult : None WM LOUIS LPN - 04/13/2013 8:47 SOLAR SALES ENERGY ADVISOR Functional Current Daily Living Assistance : None WM LOUIS LPN - 04/13/2013 8:47 SOLAR SALES ENERGY ADVISOR Dependent Habits Tobacco Use/Currently Using : No Smoking Status : Former smoker WM LOUIS LPN - 04/13/2013 8:47 SOLAR SALES ENERGY ADVISOR Tobacco Use Grid Type : Cigarettes Last Use : age 32 WM LOUIS LPN - 04/13/2013 8:47 SOLAR SALES ENERGY ADVISOR Caffeine Use Grid Caffeine Use : Current Type : Coffee Frequency : Daily WM LOUIS LPN - 04/13/2013 8:47 SOLAR SALES ENERGY ADVISOR Recreational Drug Use Grid Drug Use : None WM LOUIS LPN - 04/13/2013 8:47 SOLAR SALES ENERGY ADVISOR Psychosocial Domestic Abuse Concerns : None WM LOUIS LPN - 04/13/2013 8:47 SOLAR SALES ENERGY ADVISOR Advance Directive Advanced Directives : Yes WM LOUIS LPN - 04/13/2013 8:47 SOLAR SALES ENERGY ADVISOR Educ Needs Learning Style Preference Adult Grid Patient : Demonstration, Printed materials Family : None WM LOIUS LPN - 04/13/2013 8:47 SOLAR SALES ENERGY ADVISOR Source: [facility] [employer] Document Id: [id number] SOLAR SALES ENERGY ADVISOR!31 R SALES ENERGY ADVISOR Miscellaneous - Wm Louis LPhilPPhilNPhil - 04/13/2013 8:38 AM CST Adult Director Engineering Intake/History Adult Director Engineering Intake/History Entered On: 04/13/2013 8:43 SOLAR SALES ENERGY ADVISOR Performed On: 04/13/2013 8:38 SOLAR SALES ENERGY ADVISOR by WM LOUIS LPN Intake Chief Complaint : Go over paperwork that was dropped off last week hx food poisoning labs done colitis like a referral for gastrointestinal Temperature Core : 36.8 DegC(Converted to: 98.2 DegF) Peripheral Pulse Rate : 70 /min Respiratory Rate : 16 /min Heart Rhythm : Regular Systolic Blood Pressure : 128 mmHg Diastolic Blood Pressure : 76 mmHg NIBP Mean : 93 mmHg BP Location : Left upper extremity Blood Pressure Cuff Size : Regular Actual Weight : 71.4 kg(Converted to: 157 lb 7 oz) Weight Source : Standing scale Dosing Weight Clinic : 71.4 kg WM LOUIS LPN - 04/13/2013 8:38 SOLAR SALES ENERGY ADVISOR General Info Information Given By : Patient Preferred Communication Mode : Verbal Languages : Mohawk WM LOUIS LPN - 04/13/2013 8:38 SOLAR SALES ENERGY ADVISOR Subjective Pain Symptoms : No WM LOUIS LPN - 04/13/2013 8:38 SOLAR SALES ENERGY ADVISOR Dependent Habits Tobacco Use/Currently Using : No Smoking Status : Former smoker WM LOUIS DEVELOPMENT LEAD - 04/13/2013 8:38 SOLAR SALES ENERGY ADVISOR Tobacco Use Grid Type : Cigarettes Last Use : age 32 WM LOUIS DEVELOPMENT LEAD - 04/13/2013 8:38 SOLAR SALES ENERGY ADVISOR Caffeine Use Grid Caffeine Use : Current Type : Coffee Frequency : Daily OCTAVIANO LOUISICA Dagmar DEVELOPMENT LEAD - 04/13/2013 8:38 SOLAR SALES ENERGY ADVISOR Recreational Drug Use Grid Drug Use : None WM LOUIS RADHA - 04/13/2013 8:38 SOLAR SALES ENERGY ADVISOR Source: [facility] [employer] Document Id: [id number] SOLAR SALES ENERGY ADVISOR!36 R SALES ENERGY ADVISOR documented in this encounter Plan of Treatment Upcoming Encounters Date Type Specialty Care Team Description 02/02/2022 Immunization Family Medicine 02/12/2022 Office Visit Dermatology aLcy Dykes M.D. [address] [place], [place] [phone] (Wo rk) 02/22/2022 Office Visit Orthopedic Surgery Kimberlyn Mayer APRN, C.N.P., D.N.P. [address] [place], [place] [address] (Wo rk) 03/12/2022 Diagnostic Otorhinolaryngology Blanka Carranza, C.N.P. [address] [place] [address] Aleena Hassan Au.D. [address] [place] [address] documented as of this encounter Procedures Procedure Name Priority Date/Time Associated Diagnosis Comme nts AUTOMATED Routine 04/13/2013 9:54 AM Results f or this DIFFERENTIAL, B SOLAR SALES ENERGY ADVISOR procedure ar e in the results section. CBC WITH Routine 04/13/2013 9:54 AM Results f or this DIFFERENTIAL, B SOLAR SALES ENERGY ADVISOR procedure ar e in the results section. C-REACTIVE PROTEIN Routine 04/13/2013 9:54 AM Res ults for this (CRP), S/P SOLAR SALES ENERGY ADVISOR procedure are i n the results section. T3 Routine 04/13/2013 9:54 AM Results f or this (TRIIODOTHYRONINE), SOLAR SALES ENERGY ADVISOR procedur e are in FREE, S the results section. THYROID-STIMULATING Routine 04/13/2013 9:54 AM Re sults for this HORMONE-SENSITIVE SOLAR SALES ENERGY ADVISOR procedure are in (S-TSH) the results section. T4 (THYROXINE), TOT Routine 04/13/2013 9:54 AM Re sults for this ONLY, S SOLAR SALES ENERGY ADVISOR procedure are i n the results section. BASIC METABOLIC Routine 04/13/2013 9:54 AM Result s for this PANEL, S/P SOLAR SALES ENERGY ADVISOR procedure are i n the results section. documented in this encounter Results (ABNORMAL) Automated Differential (04/13/2013 9:54 AM SOLAR SALES ENERGY ADVISOR) Heidi Shaulis Method Time Signature Neutro % 73.7 42.0 - POWERCHART 77.0 Lymphocytes % 18.6 (L) 23.0 - POWERCHART 44.0 HX Weston % 4.1 2.0 - 18.0 POWERCHART HX Eos % 2.8 1.0 - 5.0 POWERCHART HX Baso % 0.8 0.0 - 1.0 POWERCHART Absolute 4.72 1.70 - POWERCHART Neutrophils 7.00 109L Lymphocytes 1.19 0.90 - POWERCHART 2.90 X109L Monocytes 0.26 (L) 0.30 - POWERCHART 0.90 X109L Eosinophils 0.18 0.05 - POWERCHART 0.50 X109L Absolute 0.05 0.00 - POWERCHART Basophil 0.30 X109L Specimen Anatomical Collection Method Collection Time Receive d Time (Source) Location / / Volume Laterality Blood 04/13/2013 9:54 AM 4 9:54 SOLAR SALES ENERGY ADVISOR AM SOLAR SALES ENERGY ADVISOR Kimberlyn Mayer APRN, C.N.P., D.N.P. LAB BLOOD ADD-ON Performing Organization Address City/State/ZIP Code Phon e Number POWERCHART (ABNORMAL) CBC with Differential (04/13/2013 9:54 AM SOLAR SALES ENERGY ADVISOR) Heidi Shaulis Method Time Signature Leukocytes 6.4 3.4 - 10.5 POWERCHART X109L Erythrocytes 4.68 3.90 - POWERCHART 5.03 [id number] Hemoglobin 15.0 12.0 - POWERCHART 15.5 GDL Hematocrit 46.2 (H) 34.9 - POWERCHART 44.5 MCV 98.7 (H) 82.0 - POWERCHART 98.0 FL HX RDW 12.2 11.9 - POWERCHART 15.5 Platelet Count 255 150 - 450 POWERCHART X109L HXDifferential? Auto POWERCHART Specimen (Source) Anatomical Collection Method Collection Time Re ceived Time Location / / Volume Laterality Blood 04/13/2013 9:54 AM SOLAR SALES ENERGY ADVISOR Kimberlyn Mayer APRN, C.N.P., D.N.P. LAB BLOOD ADD-ON Performing Organization Address City/State/ZIP Code Phon e Number POWERCHART T3 (Triiodothyronine), Free (04/13/2013 9:54 AM SOLAR SALES ENERGY ADVISOR) athologist Signature T3 3.0 2.0 - 3.5 POWERCHART (Triiodothyroni PGML ne), Free, S Comment: Test Performed by: [place] [address] Lane Marker Installer: Sky jones III, M.D. Specimen (Source) Anatomical Collection Method Collection Time Re ceived Time Location / / Volume Laterality Blood 04/13/2013 9:54 AM SOLAR SALES ENERGY ADVISOR Kimberlyn Mayer APRN C.N.P., D.N.P. LAB BLOOD ADD-ON Performing Organization Address City/State/ZIP Code Phon e Number POWERCHART BMP (Basic Metabolic Panel) (04/13/2013 9:54 AM SOLAR SALES ENERGY ADVISOR) P athologist Signature Anion Gap 15 10 - 20 POWERCHART MMOLL BUN (Blood Urea 12 7 - 18 POWERCHART Nitrogen), S MGDL Chloride, S 99 98 - 107 POWERCHART MMOLL CO2 Total 27.0 23.0 - POWERCHART 29.0 MMOLL Creatinine 0.83 0.60 - POWERCHART 1.30 MGDL Glucose 98 70 - 139 POWERCHART MGDL Calcium, Total, 9.3 8.6 - 10.0 POWERCHART S MGDL Sodium, S 137.1 135.0 - POWERCHART 145.0 MML Potassium, S 4.2 3.6 - 4.8 POWERCHART MMOLL HXeGFR (MDRD) >60 >=60 POWERCHART [id number] eGFR >60 >=60 POWERCHART Black/ [id number] [place] Specimen (Source) Anatomical Collection Method Collection Time Re ceived Time Location / / Volume Laterality Blood 04/13/2013 9:54 AM SOLAR SALES ENERGY ADVISOR Kp Rios APRN.N.P., D.N.P. LAB BLOOD ADD-ON Performing Organization Address City/State/ZIP Code Phon e Number POWERCHART CRP (C-Reactive Protein) (04/13/2013 9:54 AM SOLAR SALES ENERGY ADVISOR) athologist Signature C-Reactive 0.1 0.0 - 0.8 POWERCHART Protein (CRP), MGDL S Specimen (Source) Anatomical Collection Method Collection Time Re ceived Time Location / / Volume Laterality Blood 04/13/2013 9:54 AM SOLAR SALES ENERGY ADVISOR Kp Rios APRN.N.P., D.N.P. LAB BLOOD ADD-ON Performing Organization Address City/[facility]/ZIP Code Phon e Number POWERCHART T4 (Thyroxine), Total Only (04/13/2013 9:54 AM SOLAR SALES ENERGY ADVISOR) athologist Signature T4 (Thyroxine), 8.1 5.0 - 12.5 POWERCHART Total Only, S MCGDL Comment: Test Performed by: [place] [address] Lane Marker Installer: Sky jones III, M.D. Specimen (Source) Anatomical Collection Method Collection Time Re ceived Time Location / / Volume Laterality Blood 04/13/2013 9:54 AM SOLAR SALES ENERGY ADVISOR Kp Rios APRN.N.P., D.N.P. LAB BLOOD ADD-ON Performing Organization Address City/State/ZIP Code Phon e Number POWERCHART Thyroid-Stimulating Hormone-Sensitive (s-TSH) (04/13/2013 9:54 AM SOLAR SALES ENERGY ADVISOR) athologist Signature TSH 0.65 0.30 - 5.00 POWERCHART (Thyrotropin) MCIUML Specimen (Source) Anatomical Collection Method Collection Time Re ceived Time Location / / Volume Laterality Blood 04/13/2013 9:54 AM SOLAR SALES ENERGY ADVISOR Kimberlyn Mayer APRN, C.N.P., D.N.P. LAB BLOOD ADD-ON Performing Organization Address City/State/ZIP Code Phon e Number POWERCHART documented in this encounter Visit Diagnoses Not on filedocumented in this encounter Additional Health Concerns Assessment Noted Time PHQ-9 Depression Total Score: 1 04/13/2013 11:36 AM CS T documented as of this encounter
--- OUTSIDE RECORDS SUMMARY | 2022-01-31 09:42 | XMS_ITS | Encounter Summary ---
:1955 Author Organization [facility] Address [address] [place] [address] Care Team Providers Name Role Phone Unavailable Primary Care Provider Unavailable Encounter Details Date Type Department Care Team Description 10/02/2013 Hospital Encounter HX [facility] Mick Winslow, N.P. [address] [place] [phone] (Wo rk) Social History Tobacco Use Types [...] you attend yarsani or Patient refused 2021 restoration services? 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 documented as of this encounter Last Filed Vital Signs Vital Sign Reading Time Taken Comments Blood Pressure 138/78 10/02/2013 10:16 AM CDT Pulse 69 10/02/2013 9:36 AM CDT Temperature - - Respiratory Rate 18 10/02/2013 9:36 AM CDT Oxygen Saturation - - Inhaled Oxygen Concentration - - Weight 68.5 kg (151 lb 0.2 oz) 10/02/2013 9:36 AM CDT Height 161 cm (5' 3.39) 10/02/2013 10:16 AM CDT Body Mass Index 26.43 10/02/2013 9:36 AM CDT documented in this encounter Medications at Time of Discharge Medication Sig Dispensed Refills Start Date End Date B.ANI/L.ACI/L.BERNICE/L.PLAN/ Take 1 capsule by 0 06/2012 L.TASH (PROBIOTIC FORMULA mouth daily. ORAL) documented as of this encounter Progress Notes Ara Winslow, N.P. - 10/02/2013 8:56 AM CDT [id number] CHIEF COMPLAINT/REASON FOR VISIT 1. Possible UTI. 2. Elevated blood pressure. HISTORY OF PRESENT ILLNESS Priscilla is a 58-year-old female who is here today with 2 concerns. She reports that she may need to go back on blood pressure medication. She has a history of high blood pressure that was treated with a low-dose lisinopril. She states that ultimately she stopped taking this as advised due to a chroniccough. Her blood pressure had also been fairly well controlled and in the lower range of normal. Priscilla states that for the past week though she has felt dizzy when doing yoga for the past 2 days and she has checked her blood pressure at home, it has been elevated. It is noted on her initial blood pressure reading here in our clinic today it was 182/101. She denies any chest pain. She has had some slight headaches that she could maybe relate to having the elevated blood pressure. She has had no pain in her chest and otherwise has been feeling well with the exception of having some urgency with urination that she noted for the past 5 to 6 days. She also notes that her urine has been cloudy, she does have a history of UTI MEDICATIONS Reviewed. New prescriptions today are for: Diovan 40 mg 1 tab daily a 90 day prescription as well as a short-term 2 weeks prescription has beenwritten and sent to the pharmacy of her choice. Bactrim DS 1 tablet twice daily x7 days. ALLERGIES Reviewed and unchanged. Please see EMR. PAST MEDICAL/SURGICAL HISTORY Reviewed and unchanged. Please see EMR. VITAL SIGNS Temp 35.9, pulse 69, respirations 18, blood pressure initially is 182/101 recheck was 138/78, O2 saturation 98% on room air. PHYSICAL EXAMINATION GENERAL: Priscilla is alert, oriented x3. Appears in no acute distress. HEART: Rate is regular. S1, S2 is present. No murmur or rub. LUNGS: Clear to auscultation. DIAGNOSTICS Urinalysis initially showed trace amount of blood, trace leukocyte esterase. On microscopic there is4 to 10 WBCs and bacteria present. IMPRESSION/REPORT/PLAN 1. Hypertension. 2. Urinary tract infection. PLAN: 1. In regards to her hypertension. We discussed that although Priscilla's second reading being much better than her initial one today, that she would feel most comfortable going back on a low-dose blood pressure medication. A prescription for Diovan 40 mg 1 tab daily has been written. She is advised to monitor her blood pressure at home and follow up with us through the portal in the next 2 to 3 weeks as we may adjust her medicines as needed. We also discussed that possibly some of her lifestyle choices have been influencing her elevated blood pressure. She notes that she does drink socially. She does not smoke but has not been as active as she typically has been in the past. 2. A prescription for Bactrim DS 1 tablet twice daily x7 days has been written for treatment of the UTI. Fluids and rest are encouraged. She will follow up with the clinic as needed. [place]/felipe Electronically Signed By: ARA WINSLOW NP On: 10/15/2013 09:53 AM Source: [facility] MHSDOLBEYNONRADSYS Document Id: [id number] documented in this encounter Miscellaneous Notes Miscellaneous - Ara Winslow N.P. - 10/02/2013 10:16 AM CDT Ambulatory Vitals Height Weight Ambulatory Vitals Height Weight Entered On: 10/02/2013 10:17 CDT Performed On: 10/02/2013 10:16 CDT by ARA WINSLOW NP Vitals/Ht/Wt Systolic Blood Pressure : 138 mmHg Diastolic Blood Pressure : 78 mmHg NIBP Mean : 98 mmHg Height : 161 cm(Converted to: 5 ft 3 inch(es), 63 inch(es)) ARA WINSLOW NP - 10/02/2013 10:16 CDT Source: [facility] POWERCHART Document Id: [id number] CDT!6 Miscellaneous - Siena Hernandez L.PPhilNPhil - 10/02/2013 9:36 AM CDT Adult Public Health Director Intake/History Adult Public Health Director Intake/History Entered On: 10/02/2013 9:40 CDT Performed On: 10/02/2013 9:36 CDT by SIENA HERNANDEZ LPN Intake Chief Complaint : this am noted a elevated b/p this am at home on her monitor.And has been dizzy at times recently Temperature Core : 35.9 DegC(Converted to: 96.6 DegF) (LOW) Peripheral Pulse Rate : 69 /min Respiratory Rate : 18 /min Heart Rhythm : Regular Systolic Blood Pressure : 182 mmHg (>HHI) Diastolic Blood Pressure : 101 mmHg (>HHI) NIBP Mean : 128 mmHg BP Location : Left upper extremity Blood Pressure Cuff Size : Regular SpO2 : 98 % Oxygen Therapy : Room air Height : 161 cm(Converted to: 5 ft 3 inch(es), 63 inch(es)) Actual Weight : 68.5 kg(Converted to: 151 lb 0 oz) Weight Source : Standing scale Dosing Weight Clinic : 68.5 kg Clinic BSA : 1.75 Body Mass Index : 26.43 kg/m2 SIENA HERNANDEZ [facility] 10/02/2013 9:36 CDT General Info Information Given By : Patient Preferred Communication Mode : Verbal Languages : [place] SIENA HERNANDEZ [facility] - 10/02/2013 9:36 CDT Subjective Pain Symptoms : No SIENA HERNANDEZ [facility] - 10/02/2013 9:36 CDT Dependent Habits Tobacco Use/Currently Using : No Exposure to Tobacco Smoke : Care provider denies smoking in home Smoking Status : Former smoker SIENA HERNANDEZ [facility] - 10/02/2013 9:36 CDT Tobacco Use Grid Type : Cigarettes Last Use : age 32 BETH HERNANDEZSAKSHI Augustine [facility] 10/02/2013 9:36 CDT Alcohol Use : Yes HERNANDEZSIENA TAPIA [facility] - 10/02/2013 9:36 CDT Caffeine Use Grid Caffeine Use : Current Type : Coffee Frequency : Daily SIENA HERNANDEZ [facility] 10/02/2013 9:36 CDT Recreational Drug Use Grid Drug Use : None BETH HERNANDEZSAKSHI Augustine [facility] - 10/02/2013 9:36 CDT Source: [employer] ([employer]) Document Id: [id number] CDT!43 documented in this encounter Plan of Treatment Upcoming Encounters Date Type Specialty Care Team Description 02/02/2022 Immunization Family Medicine 02/12/2022 Office Visit Dermatology Lacy Dykes M.D. [address] [place], [place] [phone] (Lisha mccann) 02/22/2022 Office Visit Orthopedic Surgery Kimberlyn Alvarez APRN, C.N.P., D.N.P. [address] [place] [phone] (Wo rk) 03/12/2022 Diagnostic Otorhinolaryngology Blanka Carranza C.NPhilPPhil [address] [place] [phone] Aelena Hassan Au.D. [address] [facility] [place] [phone] documented as of this encounter Procedures Procedure Name Priority Date/Time Associated Comments Diagnosis URINALYSIS, ROUTINE Routine 10/02/2013 9:20 AM Re sults for this CDT procedure are i n the results section. URINE MICROSCOPIC Routine 10/02/2013 9:20 AM Resu lts for this CDT procedure are i n the results section. documented in this encounter Results (ABNORMAL) Urine Microscopic (10/02/2013 9:20 AM CDT) athologist Signature HXUR WBC. 4-10 HPF POWERCHART Comment: WBC clumps present. HXUR RBC. Occ-2 HPF POWERCHART Transitional Cells Occ-3 HPF POWERCHART HXUR Bacteria, Present (A) POWERCHART Squamous Epithelial Occ-3 HPF POWERCHART Specimen Anatomical Collection Method Collection Time Receive d Time (Source) Location / / Volume Laterality Urine 10/02/2013 9:20 AM 4 9:20 CDT AM CDT Ara Winslow N.P. LAB URINE ORDERABLES Performing Organization Address City/State/ZIP Code Phon e Number POWERCHART (ABNORMAL) Urinalysis, Routine (10/02/2013 9:20 AM CDT) [facility] Method Time Signature HXUr Color Yellow POWERCHART Glucose Negative MGDL POWERCHART HXBILIRUBIN Negative POWERCHART Ketones, QL(U) Negative MGDL POWERCHART Specific 1.015 POWERCHART Isabel, POCT, U pH, POCT, Urine 8.5 (A) POWERCHART Protein, Ur, Dip Negative MGDL POWERCHART Urobilinogen 0.2 MGDL POWERCHART HXNITRITE Negative POWERCHART HXBLOOD Trace (A) POWERCHART Leukocyte Trace (A) POWERCHART Esterase Clarity Clear POWERCHART Source Clean Void POWERCHART Urine Specimen (Source) Anatomical Collection Method Collection Time Re ceived Time Location / / Volume Laterality Urine 10/02/2013 9:20 AM CDT Ara Winslow N.P. LAB URINE ORDERABLES Performing Organization Address City/State/ZIP Code Phon e Number POWERCHART documented in this encounter Visit Diagnoses Not on filedocumented in this encounter Additional Health Concerns Assessment Noted Time PHQ-9 Depression Total Score: 1 04/13/2013 11:36 AM CS T documented as of this encounter
--- OUTSIDE RECORDS SUMMARY | 2022-01-31 09:42 | XMS_ITS | Encounter Summary ---
:1955 Author Organization [facility] Address [address] [place] [address] Care Team Providers Name Role Phone Unavailable Primary Care Provider Unavailable Encounter Details Date Type Department Care Team Description 04/16/2013 Hospital Encounter HX [facility] Kimberlyn Mayer AP RN, C.N.P., D.N.P. [address] [place], [place] [phone] (Wo rk) Social History Tobacco Use Types Packs/Day Years Used Date Smoking Tobacco: Never Assessed Alcohol Habits Answer Date Recorded How often do you have a drink containing 4 or more times a w eyak 07/30/2021 alcohol? How many drinks containing alcohol [...] you attend christian or Patient refused 2021 episcopal services? 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 ORAL) documented as of this encounter Miscellaneous Notes Miscellaneous - Kimberlyn Mayer, RETAIL CONSULTANT, C.N.P. - 04/19/2013 7:17 AM CST Normal Results Letter 19 April 2013 PRISCILLA HAMPTON [id number] [facility] [id number] Dear PRISCILLA HAMPTON, I am pleased to report that your results from the following diagnostic stool test(s) are normal. Please follow up with GI as we discussed during your visit or sooner if you have any concerns. If you have questions or concerns, please do not hesitate to call our office. Result Name Current Result Normal Range H pylori Ag Stl-Viper Negative 04/16/2013 Negative - Giardia Ag Stl-Viper Negative 04/16/2013 Negative - C diff Srce-Viper STOOL 04/16/2013 C diff Rslt-Viper Negative 04/16/2013 Not Applicable - Hrs Stool-Viper (HR) Random 04/16/2013 Tot Wt Stool-Viper (gm) 53 04/16/2013 Cryptosp Ag Stl-Viper Negative 04/16/2013 Negative - Sincerely, KIMBERLYN MAYER [address] [place] [address] Electronic Signature Electronically Signed By: KIMBERLYN MAYER RN, HOG PUSHER On: 19 April 2013 This document has images extracted. Source: [facility] [employer] Document Id: [id number] Electronically signed by Conversion, [facility] Mattress Finisher [id number] at 09/03/2016 3:15 PM CDT documented in this encounter Plan of Treatment Upcoming Encounters Date Type Specialty Care Team Description 02/02/2022 Immunization Family Medicine 02/12/2022 Office Visit Dermatology Lacy Dykes M.D. [address] [place], [place] [phone] (Wo rk) 02/22/2022 Office Visit Orthopedic Surgery Kimberlyn Mayer APRN, C.N.P., D.N.P. [address] [place], [place] [phone] (Wo rk) 03/12/2022 Diagnostic Otorhinolaryngology Blanka Carranza C.N.P. [address] [place] [address] Aleena Hassan Au.D. [address] [place] [phone] documented as of this encounter Procedures Procedure Name Priority Date/Time Associated Comments Diagnosis GIARDIA AG STL Routine 04/16/2013 7:00 Results fo r this AM RN ELIGIBILITY procedure are i n the results section. ENTERIC PATH RSLT Routine 04/16/2013 7:00 Results for this AM RN ELIGIBILITY procedure are i n the results section. C DIFF SRCE Routine 04/16/2013 7:00 Results for this AM RN ELIGIBILITY procedure are i n the results section. HELICOBACTER PYLORI AG, Routine 04/16/2013 7:00 R esults for this F AM RN ELIGIBILITY procedure are i n the results section. CRYPTOSPORIDIUM AG, F Routine 04/16/2013 7:00 Res ults for this AM RN ELIGIBILITY procedure are i n the results section. FAT, F Routine 04/16/2013 7:00 Results for this AM RN ELIGIBILITY procedure are i n the results section. FECAL LEUKOCYTES Routine 04/16/2013 7:00 Results for this AM RN ELIGIBILITY procedure are i n the results section. C. DIFFICILE TOXIN, F Routine 04/16/2013 7:00 Res ults for this AM RN ELIGIBILITY procedure are i n the results section. documented in this encounter Results HX-Enteric Path Rslt (04/16/2013 7:00 AM RN ELIGIBILITY) Patholo gist Method Time Signature Enteric See Comment POWERCHART Pathogens Culture, Stool Specimen (Source) Anatomical Collection Method Collection Time Re ceived Time Location / / Volume Laterality 04/16/2013 7:00 AM RN ELIGIBILITY Narrative POWERCHART - 04/19/2013 8:15 AM RN ELIGIBILITY SOURCE: STOOL ENTERIC PATHOGENS CULTURE, STOOL ? FINAL No growth of Salmonella, Shigella, Yersi leon, Campylobacter, or Aeromonas. Test Performed by: [facility] [place] [address] Film Examiner: Sky jones III, M.D. Kp Rios APRN.N.PPhil, D.N.P. LAB HISTORICAL ORDE RS Performing Organization Address [facility] Phon e Number POWERCHART C. difficile Toxin, F (04/16/2013 7:00 AM RN ELIGIBILITY) athologist Signature C. difficile Negative POWERCHART Toxin, F Specimen (Source) Anatomical Collection Method Collection Time Re ceived Time Location / / Volume Laterality 04/16/2013 7:00 AM RN ELIGIBILITY Narrative POWERCHART - 04/17/2013 7:35 PM RN ELIGIBILITY Laboratory developed test. Test Performed by: [place] [address] Film Examiner: Sky jones III, M.D. Kp Rios APRN.N.P., D.N.P. LAB MICROBIOLOGY - GENERAL ORDERABLES Performing Organization Address [facility] Phon e Number POWERCHART HX-C diff Srce (04/16/2013 7:00 AM RN ELIGIBILITY) athologist Signature HXC diff STOOL POWERCHART Srce-Viper Specimen (Source) Anatomical Collection Method Collection Time Re ceived Time Location / / Volume Laterality 04/16/2013 7:00 AM RN ELIGIBILITY Kp Rios APRN.N.P., D.N.P. LAB HISTORICAL ORDE RS Performing Organization Address [facility] Code Phon e Number POWERCHART HX-Giardia Ag Stl (04/16/2013 7:00 AM RN ELIGIBILITY) P athologist Signature Giardia Ag, F Negative POWERCHART Specimen (Source) Anatomical Collection Method Collection Time Re ceived Time Location / / Volume Laterality 04/16/2013 7:00 AM RN ELIGIBILITY Narrative POWERCHART - 04/17/2013 6:15 PM RN ELIGIBILITY Test Performed by: [place] [address] Film Examiner: Sky jones III, M.D. Kp Rios APRN.N.PPhil, D.N.P. LAB HISTORICAL ORDE RS Performing Organization Address [facility] Phon e Number POWERCHART Helicobacter pylori Ag, F (04/16/2013 7:00 AM RN ELIGIBILITY) [facility] Method Time Signature Helicobacter Negative Negative POWERCHART pylori Ag, F Comment: Test Performed by: [place] [address] Film Examiner: Sky jones III, M.D. Specimen (Source) Anatomical Collection Method Collection Time Re ceived Time Location / / Volume Laterality Stool 04/16/2013 7:00 AM RN ELIGIBILITY Kp Rios APRN.N.PPhil, D.N.P. LAB MICROBIOLOGY - GENERAL ORDERABLES Performing Organization Address [facility] Phon e Number POWERCHART Fecal Leukocytes (04/16/2013 7:00 AM RN ELIGIBILITY) [facility] gist Method Time Signature Fecal See Comment POWERCHART Leukocytes Comment: SOURCE: STOOL FECAL LEUKOCYTES ? FINAL No fecal leukocytes seen. Test Performed by: [place] [address] Film Examiner: Sky jones III, M.D. Specimen (Source) Anatomical Collection Method Collection Time Re ceived Time Location / / Volume Laterality Stool 04/16/2013 7:00 AM RN ELIGIBILITY Kp Rios APRN.N.PPhil, D.N.P. LAB MICROBIOLOGY - GENERAL ORDERABLES Performing Organization Address [facility] Phon e Number POWERCHART (ABNORMAL) Fat, Feces (04/16/2013 7:00 AM RN ELIGIBILITY) P athologist Signature HXHrs Random HR POWERCHART Stool-Viper Comment: More reliable results can be obtained fr om a timed collection. 48 and 72 hour collect ions will give the most reliable results. Per cent Fat >20% in a random collection is sugge stive of a fat malabsorption disorder and shou ld be confirmed with a timed collection. Test Performed by: [facility] [place] [address] Film Examiner: Sky jones III, M.D. HXTot Wt Stool-Viper 53 GM POWERCHART Comment: Test Performed by: [place] [address] Film Examiner: Sky jones III, M.D. % Fat 32 (H) <20 POWERCHART Comment: Test Performed by: [facility] [place] [address] Film Examiner: Sky jones III, M.D. Specimen (Source) Anatomical Collection Method Collection Time Re ceived Time Location / / Volume Laterality Stool 04/16/2013 7:00 AM RN ELIGIBILITY Darrell Rios APRNNGavino, D.N.PPhil LAB BODY FLUIDS AND STOOLS ORDERABLES Performing Organization Address [facility] Phon e Number POWERCHART Cryptosporidium Ag, F (04/16/2013 7:00 AM RN ELIGIBILITY) Patholo gist Method Time Signature Cryptosporidium Ag, Negative Negative POWERCHART F Comment: Test Performed by: [place] [address] Film Examiner: Sky jones III, M.D. Specimen (Source) Anatomical Collection Method Collection Time Re ceived Time Location / / Volume Laterality Stool 04/16/2013 7:00 AM RN ELIGIBILITY Kp Rios APRN.N.PPhil, D.N.PPhil LAB MICROBIOLOGY - GENERAL ORDERABLES Performing Organization Address City/State/ZIP Code Phon e Number POWERCHART documented in this encounter Visit Diagnoses Not on filedocumented in this encounter Additional Health Concerns Assessment Noted Time PHQ-9 Depression Total Score: 1 04/13/2013 11:36 AM CS T documented as of this encounter
--- OUTSIDE RECORDS SUMMARY | 2022-01-31 09:42 | XMS_ITS | Encounter Summary ---
:1955 Author Organization [facility] Address [address] [place] [address] Care Team Providers Name Role Phone Unavailable Primary Care Provider Unavailable Encounter Details Date Type Department Care Team Description 06/15/2013 Hospital Encounter HX NO MAPPING Zakia Sweeney M.D. [address] [place] [phone] (Wo rk) Social History Tobacco [...] you attend advent or Patient refused 2021 pentecostal services? 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 ORAL) documented as of this encounter Consult Notes Cedric Sweeney M.D. - 06/15/2013 2:50 PM CDT [id number] HISTORY OF PRESENT ILLNESS That is a 57-year-old woman who is here in regards to her left knee but she has also had some difficulties with left elbow and right shoulder pain. In regards to the left knee, she is status post previous Synvisc injection in the past because of problems with osteoarthritis. On her x-rays, she was found to have no significant degenerative changes but on MRI was found to have significant degenerative changes to the patellofemoral as well as medial compartments. We had tried Synvisc-1 several years ago and that seemed to improve things for a substantial period of time. At this point, she has had increased effusion yet again and has tried medication treatments as well as exercise program but still has problems with persistent pain. In regards to her elbow, she has had troubles with pain to the lateral aspect of her elbow primarily. It has been relatively mild in nature for her, but still has been an annoyance and has gone on for many months. She has tried a stretching program without significant improvement thus far. In regards to her shoulder, there is trouble with pain seeming to be at the medial aspect of her scapula as well as pain and numbness going down into her arm. She wakes up in the middle of the night and has to shake her arm out because of the numbness. PHYSICAL EXAMINATION EXTREMITIES/JOINTS: On examination of her left elbow, she has significant tenderness directly overlying the lateral epicondyle with pain with resisted extension and excellent range of motion of the elbow. On examination of her right shoulder, she has no scapular winging at this point in time. Her compr essive Phalen's test is negative. Her range of motion of her shoulder is not irritable and she has excellent strength when testing right upper extremity versus left. In regards to her left knee, she does have moderate effusion seen today. Her knee range of motion is from 0 to 120degrees. She is stableto varus and valgus stress and Danay's is negative. Anterior/posterior drawer is negative. IMAGING: New x-rays of the left knee obtained today do demonstrate some early degenerative changes although not as dramatic as we have seen on her previous MRI. IMPRESSION/REPORT/PLAN This is a 57-year-old woman who is dealing with multiple orthopedic problems. I think the right arm pain and shoulder pain is likely referred pain coming from her neck. My suggestion is to work with physical therapy and render out cervical traction. In regards to her left elbow, I believe this is a tennis elbow problem. We have given her a tennis elbow strap today but also have given her instruction in regards to exercises for her tennis elbow. In regards to her left knee, I think that is osteoarthritis. Therefore, because she has already tried multiple conservative measures and tried a Synvisc injection and that did seem to be helpful for her. She will try the Synvisc-1 to avoid having to come back for repeat visits. PROCEDURE: Her left knee was prepped with iodine. Needle was then placed in the lateral aspect of the knee. Injection of one standard unit of Synvisc was placed 48 mg. She tolerated this well. If she does not notice improvement from this injection by 5 to 6 weeks from now, consider possibly obtaining an MRI of her knee to evaluate the possibility of meniscal pathology. TOTAL TIME: greater than 25 minutes with more than 50% of this in counseling in regards to treatmentoptions for her left knee, left elbow and right shoulder pain. Cedric Sweeney M.D./ Electronically Signed By: CEDRIC SWEENEY MD On: 06/17/2013 01:30 PM Source: [facility] MHSDOLBEYNONRADSYS Document Id: [id number] documented in this encounter Miscellaneous Notes Miscellaneous - Cedric Sweeney M.D. - 06/15/2013 4:51 PM CDT Ambulatory Patient Summary [address] [id number] Visit Information Name: PRISCILLA HAMPTON [facility] Number: [id number] Current Date: 06/15/2013 16:51:53 Physicians Attending Provider: CEDRIC SWEENEY MD Primary Care Provider: KIMBERLYN MAYER RN, VETERINARY SURGERY TECHNOLOGIST PRISCILLA HAMPTON COSMO has been given the [...] nasal (Flonase 50 mcg/inh nasal spray) 2 [place](s), Nostrils(Both), once a day levothyroxine (Synthroid 137 [...] the Following Medications: Medication list as of 06-15-13 16:51 Attention: If you have any medications at [...] Upcoming Appointments Date Time Location Reason Provider 06/16/2013 13:00 [facility] Family Med BP check [facility] Nurse 06/16/2013 13:15 [facility] PT/OT eval and treat left tennis elbow, Cervical Traction for cervical radiculopathy Roberto Ware Attention: Contact your local Clinic if further appointment detail needed. Your Goals/Additional instructions: Source: [facility] POWERCHART Document Id: [id number] Miscellaneous - Cedric Sweeney M.D. - 06/15/2013 4:51 PM CDT Ambulatory Discharge Medication List [place] - Specialty [address] [id number] Visit Information Name: PRISCILLA HAMPTON [facility] Number: [id number] Visit Date: 06/15/2013 16:51:50 Attending Provider: CEDRIC SWEENEY MD Primary Care Provider: KIMBERLYN MAYER RN, VETERINARY SURGERY TECHNOLOGIST PRISCILLA HAMPTON COSMO has been given the [...] nasal (Flonase 50 mcg/inh nasal spray) 2 [place](s), Nostrils(Both), once a day levothyroxine (Synthroid 137 [...] the Following Medications: Medication list as of 06-15-13 16:51 Attention: If you have any medications at home that are not on this list, DO NOT take them until youcontact your provider for clarification. Give a copy of your medication list to your primary care provider. Update your medication list any time medications or doses are changed and carry your medication list at all times in case of emergency. Additional Information: Source: [facility] HealthTapCHART Document Id: [id number] Megha Casillas R.N. - 06/15/2013 3:40 PM CDT Ambulatory Vitals Height Weight Ambulatory Vitals Height Weight Entered On: 06/15/2013 15:41 CDT Performed On: 06/15/2013 15:40 CDT by MEGHA SOLORZANO RN Vitals/Ht/Wt Systolic Blood Pressure : 156 mmHg (HI) Diastolic Blood Pressure : 90 mmHg (HI) NIBP Mean : 112 mmHg MEGHA SOLORZANO RN - 06/15/2013 15:40 CDT Source: [facility] Eat In Chef Document Id: [id number] CDT!5 Megha Casillas RMarian - 06/15/2013 2:58 PM CDT Adult Dye Feeder Intake/History Adult Dye Feeder Intake/History Entered On: 06/15/2013 15:03 CDT Performed On: 06/15/2013 14:58 CDT by MEGHA SOLORZANO bridge saw operator Chief Complaint : left knee pain and swelling, had inj, several years ago, left elbow and right shoulder pain Temperature Core : 37.2 DegC(Converted to: 99.0 DegF) Peripheral Pulse Rate : 50 /min (LOW) Respiratory Rate : 16 /min Heart Rhythm : Regular Systolic Blood Pressure : 150 mmHg (HI) Diastolic Blood Pressure : 90 mmHg (HI) NIBP Mean : 110 mmHg BP Location : Left upper extremity Blood Pressure Cuff Size : Large SpO2 : 98 % MEGHA SOLORZANO RN - 06/15/2013 14:58 CDT General Info Information Given By : Patient Preferred Communication Mode : Verbal Languages : Monegasque MEGHA SOLORZANO RN - 06/15/2013 14:58 CDT Subjective Pain Symptoms : Yes MEGHA SOLORZANO RN - 06/15/2013 14:58 CDT Pain Pain Assessment Grid Pain 1 Pain 2 Pain 3 Location : Knee Shoulder Elbow MEGHA SOLORZANO RN - 06/15/2013 14:58 CDT MEGHA SOLORZANO RN - 06/15/2013 14:58 CDT MEGHA SOLORZANO RN - 06/15/2013 14:58 CDT Dependent Habits Tobacco Use/Currently Using : No Exposure to Tobacco Smoke : Care provider denies smoking in home Smoking Status : Former smoker MEGHA SOLORZANO RN - 06/15/2013 14:58 CDT Tobacco Use Grid Type : Cigarettes Last Use : age 32 MEGHA SOLORZANO RN - 06/15/2013 14:58 CDT Caffeine Use Grid Caffeine Use : Current Type : Coffee Frequency : Daily MEGHA SOLORZANO RN - 06/15/2013 14:58 CDT Recreational Drug Use Grid Drug Use : None MEGHA SOLORZANO RN - 06/15/2013 14:58 CDT Source: [facility] POWERCHART Document Id: [id number] CDT!43 documented in this encounter Plan of Treatment Upcoming Encounters Date Type Specialty Care Team Description 02/02/2022 Immunization Family Medicine 02/12/2022 Office Visit Dermatology Lacy Dykes M.D. [address] [place] [address] [phone] (Wo rk) 02/22/2022 Office Visit Orthopedic Surgery Kimberlyn Mayer APRN C.N.P., D.N.P. [address] [place], [place] [phone] (Wo rk) 03/12/2022 Diagnostic Otorhinolaryngology Blanka Carranza, C.N.P. [address] [place] [address] Aleena Hassan Au.D. [address] [place] [phone] documented as of this encounter Visit Diagnoses Not on filedocumented in this encounter Additional Health Concerns Assessment Noted Time PHQ-9 Depression Total Score: 1 04/13/2013 11:36 AM CS T documented as of this encounter
--- OUTSIDE RECORDS SUMMARY | 2022-01-31 09:42 | XMS_ITS | Encounter Summary ---
:1955 Author Organization [facility] Address [address] [place] [address] Care Team Providers Name Role Phone Unavailable Primary Care Provider Unavailable Encounter Details Date Type Department Care Team Description 10/22/[address] [facility] Philip Mayer AP RN, C.N.P., D.N.P. [address] [place], [place] [phone] (Wo rk) Social History [...] you attend christian or Patient refused 2021 mandaeism services? 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 ORAL) documented as of this encounter Miscellaneous Notes Miscellaneous - Philip Mayer, TRADING ASSISTANT, C.N.P. - 10/23/2012 8:17 AM CDT Normal Results Letter 23 October 2012 MARJAN HAMPTON [id number] [facility] [id number] Dear MARJAN HAMPTON, I am pleased to report that your results from the following diagnostic test(s) Thyroid test is in normal range. No changes in your regiment needed. If you have questions or concerns, please do not hesitate to call our office. Result Name Current Result Previous Result Normal Range TSH (mcIU/mL) 1.90 10/22/2012 (L) 0.12 07/08/2012 0.30 - 5.00 Sincerely, PHILIP MAYER [address] [place] [address] Electronic Signature Electronically Signed By: PHILIP MAYER RN, QUAIL FARMER On: 23 October 2012 This document has images extracted. Source: [facility] POWERCHART Document Id: [id number] documented in this encounter Plan of Treatment Upcoming Encounters Date Type Specialty Care Team Description 02/02/2022 Immunization Family Medicine 02/12/2022 Office Visit Dermatology Lacy Dykes M.D. [address] [place] [address] [phone] (Wo rk) 02/22/2022 Office Visit Orthopedic Surgery Philip Mayer APRN, C.N.P., D.N.P. [address] [place], [place] [phone] (Wo rk) 03/12/2022 Diagnostic Otorhinolaryngology Blanka Carranza C.N.PPhil [address] [place], [place] [phone] Aleena Hassan Au.D. [address] [place] [phone] documented as of this encounter Procedures Procedure Name Priority Date/Time Associated Diagnosis Comme nts THYROID-STIMULATING Routine 10/22/2012 1:07 PM Re sults for this HORMONE-SENSITIVE CDT procedure are in (S-TSH) the results section. documented in this encounter Results Thyroid-Stimulating Hormone-Sensitive (s-TSH) (10/22/2012 1:07 PM CDT) P athologist Signature TSH 1.90 0.30 - 5.00 POWERCHART (Thyrotropin) MCIUML Specimen (Source) Anatomical Collection Method Collection Time Re ceived Time Location / / Volume Laterality Blood 10/22/2012 1:07 PM CDT Philip Mayer APRN, C.N.P., D.N.P. LAB BLOOD ADD-ON Performing Organization Address City/State/ZIP Code Phon e Number POWERCHART documented in this encounter Visit Diagnoses Not on filedocumented in this encounter Additional Health Concerns Assessment Noted Time PHQ-9 Depression Total Score: 1 07/08/2012 7:53 AM CDT documented as of this encounter
--- OUTSIDE RECORDS SUMMARY | 2022-01-31 09:42 | XMS_ITS | Encounter Summary ---
:1955 Author Organization [facility] Address [address] [place] [address] Care Team Providers Name Role Phone Unavailable Primary Care Provider Unavailable Encounter Details Date Type Department Care Team Description 07/16/2013 Hospital Encounter HX [facility] Kimberlyn Mayer AP RN, C.N.P., D.N.P. [address] [place], [place] [phone] (Wo rk) Social History [...] you attend gnosticist or Patient refused 2021 pentecostal services? 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 ORAL) documented as of this encounter Miscellaneous Notes Miscellaneous - Kimberlyn Mayer, JOSE DANIEL, C.N.P. - 07/16/2013 3:19 PM CDT Normal Results Letter 16 July 2013 PRISCILLA HAMPTON [id number] [facility] [id number] Dear PRISCILLA HAMPTON, I am pleased to report that your results from the following diagnostic test(s) are normal. This tested your electrolytes, kidney function, and sugar.Please follow up with us as we discussed during yourvisit or sooner if you have any concerns. If you have questions or concerns, please do not hesitate to call our office. Result Name Current Result Previous Result Normal Range Sodium Lvl (mM/L) 135.8 07/16/2013 137.1 04/13/2013 135.0 - 145.0 Potassium Lvl (mmol/L) 4.3 07/16/2013 4.2 04/13/2013 3.6 - 4.8 Chloride (mmol/L) 98 07/16/2013 99 04/13/2013 98 - 107 CO2 (mmol/L) (H) 29.3 07/16/2013 27.0 04/13/2013 23.0 - 29.0 AGAP (mmol/L) 13 07/16/2013 15 04/13/2013 10 - 20 Glucose Lvl (mg/dL) 98 07/16/2013 98 04/13/2013 70 - 139 Creatinine (mg/dL) 0.80 07/16/2013 0.83 04/13/2013 0.60 - 1.30 EGFR (MDRD) (mL/min/1.73m2) >60 07/16/2013 >60 04/13/2013 >=60 - EGFR (MDRD) (mL/min/1.73m2) >60 07/16/2013 >60 04/13/2013 >=60 - BUN (mg/dL) 11 07/16/2013 12 04/13/2013 7 - 18 Calcium Lvl (mg/dL) 9.4 07/16/2013 9.3 04/13/2013 8.6 - 10.0 Sincerely, KIMBERLYN MAYER [address] [place], [place] [phone] Electronic Signature Electronically Signed By: KIMBERLYN MAYER RN, BRIM POUNCER MACHINE OPERATOR On: 16 July 2013 This document has images extracted. Source: [facility] POWERCHART Document Id: [id number] documented in this encounter Plan of Treatment Upcoming Encounters Date Type Specialty Care Team Description 02/02/2022 Immunization Family Medicine 02/12/2022 Office Visit Dermatology Lacy Dykes M.D. [address] [place], [place] [phone] (Wo rk) 02/22/2022 Office Visit Orthopedic Surgery Kimberlyn Mayer, JOSE DANIEL, C.N.P., D.N.P. [address] [place], [place] [phone] (Wo rk) 03/12/2022 Diagnostic Otorhinolaryngology Blanka Carranza C.N.P. [address] [place] [address] Aleena Hassan Au.D. Winnie Nayeli Vargas BERRY Marcos [phone] documented as of this encounter Procedures Procedure Name Priority Date/Time Associated Diagnosis Comme nts BASIC METABOLIC Routine 07/16/2013 8:38 AM Result s for this PANEL, S/P CDT procedure are i n the results section. documented in this encounter Results (ABNORMAL) BMP (Basic Metabolic Panel) (07/16/2013 8:38 AM CDT) [facility] Time Signature Anion Gap 13 10 - 20 POWERCHART MMOLL BUN (Blood Urea 11 7 - 18 POWERCHART Nitrogen), S MGDL Chloride, S 98 98 - 107 POWERCHART MMOLL CO2 Total 29.3 (H) 23.0 - POWERCHART 29.0 MMOLL Creatinine 0.80 0.60 - POWERCHART 1.30 MGDL Glucose 98 70 - 139 POWERCHART MGDL Calcium, Total, 9.4 8.6 - 10.0 POWERCHART S MGDL Sodium, S 135.8 135.0 - POWERCHART 145.0 MML Potassium, S 4.3 3.6 - 4.8 POWERCHART MMOLL HXeGFR (MDRD) >60 >=60 POWERCHART [id number] eGFR >60 >=60 POWERCHART Black/ [id number] Indonesian Specimen (Source) Anatomical Collection Method Collection Time Re ceived Time Location / / Volume Laterality Blood 07/16/2013 8:38 AM CDT Kimberlyn Mayer APRN, C.N.P., D.N.P. LAB BLOOD ADD-ON Performing Organization Address City/State/ZIP Code Phon e Number POWERCHART documented in this encounter Visit Diagnoses Not on filedocumented in this encounter Additional Health Concerns Assessment Noted Time PHQ-9 Depression Total Score: 1 04/13/2013 11:36 AM CS T documented as of this encounter
--- OUTSIDE RECORDS SUMMARY | 2022-01-31 09:42 | XMS_ITS | Encounter Summary ---
:1955 Author Organization [facility] Address [address] [place] [address] Care Team Providers Name Role Phone Unavailable Primary Care Provider Unavailable Encounter Details Date Type Department Care Team Description 08/17/2013 Hospital Encounter HX [facility] JM BernardmanEdie [address] [place], [place] [phone] (Wo rk) Social History [...] you attend faith or Patient refused 2021 sikh services? 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 ORAL) documented as of this encounter Plan of Treatment Upcoming Encounters Date Type Specialty Care Team Description 02/02/2022 Immunization Family Medicine 02/12/2022 Office Visit Dermatology Lacy Dykes M.D. [address] [place], [place] [phone] (Wo rk) 02/22/2022 Office Visit Orthopedic Surgery Kimberlyn Alvarez APRN, C.N.P., D.N.P. [address] [place], [place] [phone] (Wo ) 03/12/2022 Diagnostic Otorhinolaryngology Blanka Carranza, C.N.P. [address] [place] [address] Aleena Hassan Au.D. [address] [place] [phone] documented as of this encounter Visit Diagnoses Not on filedocumented in this encounter Additional Health Concerns Assessment Noted Time PHQ-9 Depression Total Score: 1 04/13/2013 11:36 AM CS T documented as of this encounter
--- OUTSIDE RECORDS SUMMARY | 2022-01-31 09:42 | XMS_ITS | Encounter Summary ---
:1955 Author Organization [facility] Address [address] [place] [address] Care Team Providers Name Role Phone Unavailable Primary Care Provider Unavailable Encounter Details Date Type Department Care Team Description 06/21/[address] [facility] Leslie Carrasco M.D. [address] [place] [phone] (Wo rk) Social History Tobacco Use Types Packs/Day Years Used Date Smoking Tobacco: Never Assessed Alcohol Habits Answer Date Recorded How often do you have a drink containing 4 or more times a w galena 07/30/2021 alcohol? How many drinks containing alcohol [...] you attend yazidism or Patient refused 2021 faith services? 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 ORAL) documented as of this encounter Progress Notes Cedric Sweeney M.D. - 06/21/2013 10:40 AM CDT [id number] CLINIC ENCOUNTER HISTORY: Priscilla is a 57-year-old woman who is here in regards to her left knee. We had tried a Synvisc One injection to her knee this past week and she had the onset of severe swelling and pain. She had been on crutches since that time and she says it has gotten very slightly better but it is not dramatically so. She has a sizable effusion that she notes today. PHYSICAL EXAMINATION: Examination of her knee: There is a large effusion present today. Her knee range of motion is from 0 to approximately 50 degrees. She is stable to varus and valgus stress. There is no redness to her knee. 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 I have discussed further treatment options. We will proceed with a cortisone injection today and while we do this we will also do an aspiration to her knee. Her knee was prepped with iodine. The needle was then placed in the lateral aspect of her knee. Aspiration was approximately 18 mL of fluid was obtained and injection of 2 cc of 40 mg Kenalog and lidocaine were placed into her knee. She tolerated this well. Hopefully this will give her some improvement in regards to her symptoms and she also has a prescription for some pain medication to use as needed until this helps to resolve. Once it is resolved we can consider the possibility of Supartz injections in the future but like I told her this would be a typically five injection series and we could consider a three injection series if need be, but I believe the five injection series would potentially be more helpful if it could be done and with her schedule it might be difficult to do this. The patient's visit today was greater than 15 minutes long with more than 50% of it in counseling in regards to continuing treatment for her left knee pseudoseptic reaction. Cedric Sweeney M.D. [facility]/micheal cc: Source: [facility] Document Id: [id number] Electronically signed by Jennifer [facility] Seo Manager [id number] at 09/01/2016 6:41 PM CDT documented in this encounter Plan of Treatment Upcoming Encounters Date Type Specialty Care Team Description 02/02/2022 Immunization Family Medicine 02/12/2022 Office Visit Dermatology Lacy Dykes M.D. [address] [place], [place] [phone] (Wo rk) 02/22/2022 Office Visit Orthopedic Surgery Kimberlyn Alvarez APRN, C.N.P., D.N.P. [address] [place], [place] [phone] (Wo rk) 03/12/2022 Diagnostic Otorhinolaryngology Blanka Carranza, C.N.P. [address] [place] [address] Aleena Hassan Au.D. [address] [place] [phone] documented as of this encounter Visit Diagnoses Not on filedocumented in this encounter Additional Health Concerns Assessment Noted Time PHQ-9 Depression Total Score: 1 04/13/2013 11:36 AM CS T documented as of this encounter
--- OUTSIDE RECORDS SUMMARY | 2022-01-31 09:42 | XMS_ITS | Encounter Summary ---
:1955 Author Organization [facility] Address [address] [place] [address] Care Team Providers Name Role Phone Unavailable Primary Care Provider Unavailable Encounter Details Date Type Department Care Team Description 09/20/2013 Hospital Encounter HX [facility] JM BernardmanEdie [address] [place], [place] [phone] (Wo rk) Social History [...] you attend jew or Patient refused 2021 religion services? 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 ORAL) documented as of this encounter Plan of Treatment Upcoming Encounters Date Type Specialty Care Team Description 02/02/2022 Immunization Family Medicine 02/12/2022 Office Visit Dermatology Lacy Dykes M.D. [address] [place], [place] [phone] (Wo rk) 02/22/2022 Office Visit Orthopedic Surgery Kimberlyn Alvarez APRN, C.N.P., D.N.P. [address], [place] [phone] (Wo ) 03/12/2022 Diagnostic Otorhinolaryngology Blanka Carranza, C.N.P. [address] [place] [address] Aleena Hassan Au.D. [address] [place] [address] documented as of this encounter Visit Diagnoses Not on filedocumented in this encounter Additional Health Concerns Assessment Noted Time PHQ-9 Depression Total Score: 1 04/13/2013 11:36 AM CS T documented as of this encounter
--- OUTSIDE RECORDS SUMMARY | 2022-01-31 09:42 | XMS_ITS | Encounter Summary ---
:1955 Author Organization [facility] Address [address] [place] [address] Care Team Providers Name Role Phone Unavailable Primary Care Provider Unavailable Encounter Details Date Type Department Care Team Description 09/11/2012 Hospital Encounter HX [facility] Kimberlyn Mayer, JOSE DANIEL, C.N.P., D. N.P. [address] [place] [address] (Wo rk) Social History Tobacco Use Types Packs/Day Years Used Date Smoking Tobacco: Never Assessed Alcohol Habits Answer Date Recorded How often do you have a drink containing 4 or more times a w sycuan 07/30/2021 alcohol? How many drinks containing alcohol [...] you attend caodaism or Patient refused 2021 roman catholic services? 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 Last Filed Vital Signs Vital Sign Reading Time Taken Comments Blood Pressure 120/70 09/11/2012 9:27 AM CDT Pulse 72 09/11/2012 9:27 AM CDT Temperature - - Respiratory Rate 16 09/11/2012 9:27 AM CDT Oxygen Saturation - - Inhaled Oxygen Concentration - - Weight 70.4 kg (155 lb 3.3 oz) 09/11/2012 9:27 AM CDT Height 161 cm (5' 3.39) 09/11/2012 9:27 AM CDT Body Mass Index 27.16 09/11/2012 9:27 AM CDT documented in this encounter Medications at Time of Discharge Medication Sig Dispensed Refills Start Date End Date B.ANI/L.ACI/L.BERNICE/L.PLAN/ Take 1 capsule by 0 06/2012 L.TASH (PROBIOTIC FORMULA mouth daily. ORAL) documented as of this encounter H&P Notes Kimberlyn Mayer, JOSE DANIEL, C.N.P. - 09/11/2012 9:18 AM CDT [id number] CHIEF COMPLAINT/REASON FOR VISIT 1. Pre-Op physical. HISTORY OF PRESENT ILLNESS Priscilla is a pleasant 57-year-old female who is being seen today per the request of Dr. Donald Kumari for blepharoplasty to be performed on October 01 at [facility]. Patient does havea history of Graves' disease. PAST MEDICAL SURGICAL HISTORY Includes: 1. Tonsillectomy. 2. . 3. Breast reduction. 4. Bladder repair. 5. Right hand tendon repair. 6. Tonsillectomy. 7. Colonoscopy. 8. Thyroid nodule. 9. History of SVT. 10. Hypothyroidism post thyroidectomy. 11. Insomnia. 12. Osteopenia. 13. Plantar heel pain. 14. 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 CURRENT MEDICATIONS She is currently on: 1. Celexa 20 mg daily. 2. Testosterone 2% daily. 3. Epi Pen on an as-needed basis. 4. Famvir on an as-needed basis. 5. Synthroid 137 mcg daily. 6. Ambien 10 mg at bedtime on an as-needed basis. 7. Probiotics 1 capsule daily. 8. Calcium with Vitamin D 1200 mg by mouth daily. 9. Cholestrom, 1 tablet twice daily. 10. Progesterone 1 tablet daily. ALLERGIES Wasps. Hornets, TDaP. SYSTEMS REVIEW Patient denies any concerns in regards to the skin, head, eyes, ears, nose, mouth or throat. She hasno current infectious symptoms. Psychologically she feels stable. She has no history of any Diabetes, cardiovascular concerns. She denies any respiratory issues. No history of Hepatitis, urinary issues, neurologic concern. Hematologic, no bleeding or abnormalities noted. No musculoskeletal concerns and no genitor/reproductive concerns. PAST MEDICAL/SURGICAL HISTORY As noted above. SOCIAL HISTORY She has a significant other who is very active in her life and helpful. She is a non-tobacco user. Exercises regularly, occasional use of alcohol. She continues to work. FAMILY HISTORY There is no family history of anesthesia complications or bleeding disorders. VITAL SIGNS Blood pressure: 120/70. Pulse: 72. Temperature: 37.0-degrees Centigrade. RESPIRS: 16. Height: 161 cm. Weight: 70.4 kg. BMI: 27.1. PHYSICAL EXAMINATION IN GENERAL: Patient appears non-distressed. SKIN: Her skin is warm and dry. HEAD: Is normocephalic. EYES: Pupils even equal react to light. Extraocular movements are normal. EARS: TMs are clear bilaterally. NOSE: Negative. THROAT: Negative. LYMPH: With no cervical, supraclavicular, axillary or femoral lymphadenopathy. NECK: Is supple. HEART: With a regular rate and rhythm. LUNGS: Clear to auscultation. ABDOMEN: Soft. There is no organomegaly. MUSCULOSKELETAL: Bilateral strength. No neck or spine pain. LYMPH: With no cervical, supraclavicular, axillary femoral lymphadenopathy. VESSELS: Normal carotids with normal upstrokes. PULSES: Positive pulses that are strong in 4 extremities. NEURO: Cranial nerves II-XII are grossly intact. DIAGNOSTIC STUDIES Her heart is in a regular rate and rhythm. I did not repeat an EKG. Her last EKG was 2010 which was a normal sinus rhythm. She also in 2011 had an echocardiogram that was completely normal. No history of heart disease. IMPRESSION/REPORT/PLAN Patient is diagnostically and therapeutically optimized for planned procedure. No anticipated complications identified. This information will be faxed to [facility]. Please see the form scanned into the chart. PATIENT EDU #1 Patient Education Ready to learn No apparent learning barriers were identified Learning preferences include listening Explained diagnosis and treatment plan Patient/Child/Caregiver expressed understanding of the content. Brooks Contreras/ritu cc: Fax to [facility]. Electronically Signed By: KIMBERLYN MAYER RN, CNP On: 09/16/2012 01:39 PM Source: [facility] MHSDOLBEYNONRADSYS Document Id: [id number] documented in this encounter Miscellaneous Notes Miscellaneous - Kimberlyn Mayer APRN, C.N.P. - 09/11/2012 10:01 AM CDT Ambulatory Depart Summary [address] [address] Visit Information Name: MEMOPRISCILLA [facility] Number: [id number] Visit Date: 09/11/2012 10:01:02 Attending Provider: KIMBERLYN MAYER RN, CIGAR BINDER Primary Care Provider: KIMBERLYN MAYER RN, CIGAR BINDER MEMO PRISCILLA COSMO has been given the following list of medications: Your Medications It is important to take your medications as directed. Use a pill box or chart to help remind you to take your medications. Please let your doctor or nurse know if you have problems taking your medications. Medication/Strength Dose Route Frequency Indications/Special Instructions/Comments levothyroxine (Synthroid 137 mcg (0.137 mg) oral tablet) 137 mcg Oral once a day NYDIA- No generic please. to cover while on vacation epinephrine (EpiPen Auto-Injector 0.3 mg injectable kit) 0.3 mg Intramuscular as directed as needed for Shortness of breath / Wheezing Severe allergic reaction citalopram (Celexa 20 mg oral tablet) 20 mg Oral once a day zolpidem (Ambien 10 mg oral tablet) 10 mg Oral once a day (at bedtime) 1/2 to 1 tab as directed. bifidobacterium-lactobacillus (Probiotic Formula oral capsule) 1 cap(s) Oral once a day Misc Prescription (Misc Prescription) cholestrom one tablet twice daily famciclovir (Famvir 500 mg oral tablet) 500 mg Oral every 8 hours at onset of cold sore x 1day. testosterone (testosterone 2% transdermal cream) once a day calcium-vitamin D (Calcium 600+D) 1200mg po daily Misc Prescription (Misc Prescription) 1 tab Oral once a day progesterone Attention: If you have any medications at home that are not on this list, DO NOT take them until youcontact your provider for clarification. Additional Information: Source: [facility] POWERCHART Document Id: [id number] Miscellaneous - Kimberlyn Mayer APRN, C.N.P. - 09/11/2012 10:01 AM CDT Ambulatory Patient Summary [address] [address] Visit Information Name: PRISCILLA HAMPTON [facility] Number: [id number] Current Date: 09/11/2012 10:01:03 Physicians Attending Provider: KIMBERLYN MAYER RN, CIGAR BINDER Primary Care Provider: KIMBERLYN MAYER RN, CIGAR BINDER Your Medications Here is a list of your medications. It is important to take your medications as directed. Use a pillbox or chart to help remind you to take your medications. Please let your doctor or nurse know if you have problems taking your medications. Medication/Strength Dose Route Frequency Indications/Special Instructions/Comments levothyroxine (Synthroid 137 mcg (0.137 mg) oral tablet) 137 mcg Oral once a day NYDIA- No generic please. to cover while on vacation epinephrine (EpiPen Auto-Injector 0.3 mg injectable kit) 0.3 mg Intramuscular as directed as needed for Shortness of breath / Wheezing Severe allergic reaction citalopram (Celexa 20 mg oral tablet) 20 mg Oral once a day zolpidem (Ambien 10 mg oral tablet) 10 mg Oral once a day (at bedtime) 1/2 to 1 tab as directed. bifidobacterium-lactobacillus (Probiotic Formula oral capsule) 1 cap(s) Oral once a day Misc Prescription (Misc Prescription) cholestrom one tablet twice daily famciclovir (Famvir 500 mg oral tablet) 500 mg Oral every 8 hours at onset of cold sore x 1day. testosterone (testosterone 2% transdermal cream) once a day calcium-vitamin D (Calcium 600+D) 1200mg po daily Misc Prescription (Misc Prescription) 1 tab Oral once a day progesterone Attention: If you have any medications at home that are not on this list, DO NOT take them until youcontact your provider for clarification. Your Allergies & Intolerances Substance Reaction Symptoms [...] Time Location Reason Provider No Appointments found Your Goals/Additional instructions: Source: [facility] POWERCHART Document Id: [id number] Miscellaneous - Wm Louis L.P.N. 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 Intake/History Entered On: 09/11/2012 9:32 CDT Performed On: 09/11/2012 9:27 CDT by WM LOUIS LPN Intake Chief Complaint : Pre op physical 10/01/12 thyroid eye disease at [place] Temperature Core : 37 DegC(Converted to: 98.6 DegF) Peripheral Pulse Rate : 72 /min Respiratory Rate : 16 /min Heart Rhythm : Regular Systolic Blood Pressure : 120 mmHg Diastolic Blood Pressure : 70 mmHg NIBP Mean : 87 mmHg BP Location : Left upper extremity Blood Pressure Cuff Size : Regular Height : 161 cm(Converted to: 5 ft 3 inch(es), 63.39 inch(es)) Actual Weight : 70.4 kg(Converted to: 155 lb 3 oz) Weight Source : Standing scale Dosing Weight Clinic : 70.4 kg Clinic BSA : 1.77 Body Mass Index : 27.16 kg/m2 WM LOUIS LPN - 09/11/2012 9:27 CDT General Info Information Given By : Patient Preferred Communication Mode : Verbal Languages : Beninese WM LOUIS LPN - 09/11/2012 9:27 CDT Subjective Pain Symptoms : No WM LOUIS LPN - 09/11/2012 9:27 CDT Dependent Habits Tobacco Use/Currently Using : No Smoking Status : Former smoker WM LOUIS LPN - 09/11/2012 9:27 CDT Tobacco Use Grid Type : Cigarettes Last Use : age 32 WM LOUIS LPN - 09/11/2012 9:27 CDT Alcohol Use : Yes WM LOUIS LPN - 09/11/2012 9:27 CDT Caffeine Use Grid Caffeine Use : Current Type : Coffee Frequency : Daily WM LOUIS LPN - 09/11/2012 9:27 CDT Recreational Drug Use Grid Drug Use : None WM LOUIS LPN - 09/11/2012 9:27 CDT [facility] Document Id: [id number]!40 documented in this encounter Plan of Treatment Upcoming Encounters Date Type Specialty Care Team Description 02/02/2022 Immunization Family Medicine 02/12/2022 Office Visit Dermatology Lacy Dykes M.D. [address] [place], [place] [phone] (Wo rk) 02/22/2022 Office Visit Orthopedic Surgery Kimberlyn Mayer APRN, C.N.P., D.N.P. [address] [place], [place] [phone] (Wo rk) 03/12/2022 Diagnostic Otorhinolaryngology Blanka Carranza C.N.P. [address] [place], [place] [id number] Aleena Hassan Au.D. [address] [place] [address] documented as of this encounter Visit Diagnoses Not on filedocumented in this encounter Additional Health Concerns Assessment Noted Time PHQ-9 Depression Total Score: 1 07/08/2012 7:53 AM CDT documented as of this encounter
--- OUTSIDE RECORDS SUMMARY | 2022-01-31 09:42 | XMS_ITS | Encounter Summary ---
:1955 Author Organization [facility] Address [address] [place] [address] Care Team Providers Name Role Phone Unavailable Primary Care Provider Unavailable Encounter Details Date Type Department Care Team Description 05/03/2013 Hospital Encounter [facility]X [facility] Ehsan marin M.D. [address] [place] [phone] (Wo rk) Social History Tobacco Use Types [...] or relatives? How often do you attend cheondoism or Patient refused 2021 christian services? 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 documented as of this encounter Last Filed Vital Signs Vital Sign Reading Time Taken Comments Blood Pressure 144/86 05/03/2013 12:09 PM INSECTICIDE MAKER Pulse 80 05/03/2013 12:09 PM INSECTICIDE MAKER Temperature - - Respiratory Rate 16 05/03/2013 12:09 PM INSECTICIDE MAKER Oxygen Saturation - - Inhaled Oxygen Concentration - - Weight 70.1 kg (154 lb 8.7 oz) 05/03/2013 12:09 PM INSECTICIDE MAKER Height 161 cm (5' 3.39) 05/03/2013 12:09 PM INSECTICIDE MAKER Body Mass Index 27.04 05/03/2013 12:09 PM INSECTICIDE MAKER documented in this encounter Medications at Time of Discharge Medication Sig Dispensed Refills Start Date End Date B.ANI/L.ACI/L.BERNICE/L.PLAN/ Take 1 capsule by 0 06/2012 L.TASH (PROBIOTIC FORMULA mouth daily. ORAL) documented as of this encounter Progress Notes Ehsan Santiago M.D. - 05/03/2013 11:58 AM CST [id number] CHIEF COMPLAINT/REASON FOR VISIT Head congestion, stiff neck. HISTORY OF PRESENT ILLNESS Priscilla is a 57-year-old female who comes in today stating that she has the crud but it isreally not that bad. She would not even be here if it was not for the fact that she is leaving town for 2 weeks tomorrow. Starting on the she developed some sinus and nasal congestion. Her ears feel plugged and she has a mild headache. She also has a cough which is looser today. Her head and earshurt when she coughs. There has been no fever or sore throat. She has been taking some NyQuil in theev. She states she does not normally like to take things, but again does not want to be in another state and have it worsen. She also notes that for the past week and a half she has been having a stiff neck and sore right shoulder. She has been using Icy Hot and doing some stretching and has had an adjustment and a massage but things are just not improving. She has never done muscle relaxants inthe past but she thinks she may need one. MEDICATIONS Reconciled. New medicines today are Auralgan 4 drops each ear 4 times a day as needed, Cheratussin 10 mL by mouth every 4 hours as needed for cough, Flexeril 5 mg by mouth 3 times a day as needed for muscle spasm, Flonase 2 sprays each nostril daily and Tessalon Perles 100 mg by mouth 3 times a ay times 7 days. ALLERGIES Wasps. Tdap. SYSTEMS REVIEW As per history of present illness. VITAL SIGNS Temperature 37 degrees. Pulse is 80 beats per minute. Respiratory rate is 16 breaths per minute. Blood pressure is 144/86. Oxygen saturation is 98% on room air. Height is 161 cm. Weight is 70.1 kg. BMIis 27.0. PHYSICAL EXAMINATION GENERAL: Patient is alert and oriented in no acute distress. HEENT: Right TM is clear. There is a little bit of wax in the canal. Left TM was initially blocked by wax which was removed. Then her TM was normal. Nasal mucosa is swollen, erythematous. She does havesome tenderness over her frontal sinuses and less tenderness over her maxillary sinuses. Oral mucosais moist. There is no oral pharyngeal erythema. NECK: Neck is supple. No lymphadenopathy. She does have some tenderness to palpation over her right trapezius muscle. CARDIOVASCULAR: Regular rate and rhythm. Normal S1 and S2. No murmurs, rubs or gallops. LUNGS: Clear to auscultation bilaterally. IMPRESSION/REPORT/PLAN 1. Acute upper respiratory tract infection. We discussed this is likely viral and antibiotics will not help. There will also not be a quick fix for being on a plane tomorrow. We did discuss symptomaticcontrol and patient was interested in Flonase, Auralgan, Tessalon Perles and Cheratussin. She statesshe would rather have everything in case she needs it rather than nothing and be calling from another state. 2. Trapezius strain. The patient was given a prescription for Flexeril. She can continue with symptomatic therapy as well. Patient Education Ready to learn No apparent learning barriers were identified Learning preferences include listening Explained diagnosis and treatment plan Patient/Child/Caregiver expressed understanding of the content Ehsan Burnette M.D./[facility] Electronically Signed By: EHSAN RODRIGUEZ MD On: 05/04/2013 02:31 PM Source: [facility] MHSDOLBEYNONRADSYS Document Id: [id number] CTICIDE MAKER documented in this encounter Miscellaneous Notes Miscellaneous - Ehsan Santiago M.D. - 05/03/2013 12:48 PM INSECTICIDE MAKER Ambulatory Patient Summary [address] [address] Visit Information Name: PRISCILLA HAMPTON [facility] Number: [id number] Current Date: 05/03/2013 12:48:32 Physicians Attending Provider: EHSAN RODRIGUEZ MD Primary Care Provider: KIMBERLYN MAYER RN, ASSISTANT GOLF COACH PRISCILLA HAMPTON has been given the following [...] Take Indications/Special Instructions/Comments/Notes for Patient Medication Changes/Routing antipyrine-benzocaine otic (Auralgan otic solution) 4 Drops, Ears (Both), four times a day as neededfor Pain x 7 day(s) New Routed to [facility] [address] [place] [id number] benzonatate (Tessalon Perles 100 mg oral capsule) 1 cap, Oral, three times a day x 7 day(s) New Routed to [facility] [address] [place] [address] [place] [address] bifidobacterium-lactobacillus (Probiotic Formula oral capsule) 1 cap, Oral, once a day calcium-vitamin D (Calcium 600+D) 1200mg po daily citalopram (Celexa 20 mg oral tablet) 1 Tablet(s), Oral, once a day codeine-guaiFENesin (Cheratussin AC 10 mg-100 mg/5 mL oral syrup) 10 Milliliter, Oral, every 4 hoursas needed for cough New Routed to [facility] cyclobenzaprine (Flexeril 5 mg oral tablet) 1 Tablet(s), Oral, three times a day as needed for Muscle spasm x 7 day(s) New Routed to [address] [address] epinephrine (EpiPen Auto-Injector 0.3 mg injectable kit) 0.3 mg, Intramuscular, as directed as needed for Shortness of breath / Wheezing Severe allergic reaction famciclovir (Famvir 500 mg oral tablet) 1 Tablet(s), Oral, every 8 hours at onset of cold sore x 1day. fluticasone nasal (Flonase 50 mcg/inh nasal spray) 2 Saco(s), Nostrils(Both), once a day New Routedto [address] [address] levothyroxine (Synthroid 137 mcg (0.137 mg) oral [...] the Following Medications: Medication list as of 05-03-13 12:48 Attention: If you have any medications at [...] appointment detail needed. Your Goals/Additional instructions: Source: [facility] POWERCHART Document Id: [id number] CTICIDE MAKER Miscellaneous - Ehsan Santiago M.D. - 05/03/2013 12:48 PM INSECTICIDE MAKER Ambulatory Depart Summary [address] [address] Visit Information Name: PRISCILLA HAMPTON [facility] Number: [id number] Visit Date: 05/03/2013 12:48:27 Attending Provider: EHSAN RODRIGUEZ MD Primary Care Provider: KIMBERLYN MAYER RN, ASSISTANT GOLF COACH PRISCILLA HAMPTON COSMO has been given the following list of medications: Your Medications It is important to take your medications as directed. Use a pill box or chart to help remind you to take your medications. Please let your doctor or nurse know if you have problems taking your medications. Medication/Strength How to Take Indications/Special Instructions/Comments/Notes for Patient Medication Changes/Routing antipyrine-benzocaine otic (Auralgan otic solution) 4 Drops, Ears (Both), four times a day as neededfor Pain x 7 day(s) New Routed to [address] [address] benzonatate (Tessalon Perles 100 mg oral capsule) 1 cap, Oral, three times a day x 7 day(s) New Routed to [address] [address] bifidobacterium-lactobacillus (Probiotic Formula oral capsule) 1 cap, Oral, once a day calcium-vitamin D (Calcium 600+D) 1200mg po daily citalopram (Celexa 20 mg oral tablet) 1 Tablet(s), Oral, once a day codeine-guaiFENesin (Cheratussin AC 10 mg-100 mg/5 mL oral syrup) 10 Milliliter, Oral, every 4 hoursas needed for cough New Routed to [place] cyclobenzaprine (Flexeril 5 mg oral tablet) 1 Tablet(s), Oral, three times a day as needed for Muscle spasm x 7 day(s) New Routed to [address] [address] epinephrine (EpiPen Auto-Injector 0.3 mg injectable kit) 0.3 mg, Intramuscular, as directed as needed for Shortness of breath / Wheezing Severe allergic reaction famciclovir (Famvir 500 mg oral tablet) 1 Tablet(s), Oral, every 8 hours at onset of cold sore x 1day. fluticasone nasal (Flonase 50 mcg/inh nasal spray) 2 Saco(s), Nostrils(Both), once a day New Routedto [address] [address] levothyroxine (Synthroid 137 mcg (0.137 mg) oral [...] the Following Medications: Medication list as of 05-03-13 12:48 Attention: If you have any medications at home that are not on this list, DO NOT take them until youcontact your provider for clarification. Give a copy of your medication list to your primary care provider. Update your medication list any time medications or doses are changed and carry your medication list at all times in case of emergency. Additional Information: Source: [facility] POWERCHART Document Id: [id number] CTICIDE MAKER Miscellaneous - Warner Morin LPhilPPhliN. - 05/03/2013 12:09 PM CST Adult Airset Caster Intake/History Adult Airset Caster Intake/History Entered On: 05/03/2013 12:14 INSECTICIDE MAKER Performed On: 05/03/2013 12:09 INSECTICIDE MAKER by WARNER MORIN LPN Intake Chief Complaint : Head congestion, since last friday, and into chest Stiff neck and right shoulder Temperature Core : 37.0 DegC(Converted to: 98.6 DegF) Peripheral Pulse Rate : 80 /min Respiratory Rate : 16 /min Heart Rhythm : Regular Systolic Blood Pressure : 144 mmHg (HI) Diastolic Blood Pressure : 86 mmHg NIBP Mean : 105 mmHg BP Location : Left upper extremity Blood Pressure Cuff Size : Regular SpO2 : 98 % Oxygen Therapy : Room air Height : 161.0 cm(Converted to: 5 ft 3 inch(es), 63.39 inch(es)) Actual Weight : 70.1 kg(Converted to: 154 lb 9 oz) Weight Source : Standing scale Dosing Weight Clinic : 70.1 kg Clinic BSA : 1.77 Body Mass Index : 27.04 kg/m2 WARNER MORIN LPN - 05/03/2013 12:09 INSECTICIDE MAKER General Info Information Given By : Patient Languages : Latvian WARNER MORIN CATH LAB RADIOLOGY TECHNICIAN - 05/03/2013 12:09 INSECTICIDE MAKER Subjective Pain Symptoms : No WARNER MORIN LPN 05/03/2013 12:09 INSECTICIDE MAKER Dependent Habits Tobacco Use/Currently Using : No Tobacco Use/Last 12 months : No Tobacco Use/Advised to Quit : No Exposure to Tobacco Smoke : Care provider denies smoking in home Smoking Status : Former smoker WARNER MORIN CATH LAB RADIOLOGY TECHNICIAN - 05/03/2013 12:09 INSECTICIDE MAKER Tobacco Use Grid Type : Cigarettes Last Use : age 32 WARNER MORIN CATH LAB RADIOLOGY TECHNICIAN 05/03/2013 12:09 INSECTICIDE MAKER Alcohol Use : Yes WARNER MORIN CATH LAB RADIOLOGY TECHNICIAN 05/03/2013 12:09 INSECTICIDE MAKER Caffeine Use Grid Caffeine Use : Current Type : Coffee Frequency : Daily WARNER MORIN CATH LAB RADIOLOGY TECHNICIAN 05/03/2013 12:09 INSECTICIDE MAKER Recreational Drug Use Grid Drug Use : None WARNER MORIN CATH LAB RADIOLOGY TECHNICIAN 05/03/2013 12:09 INSECTICIDE MAKER Source: [facility] Lemon Document Id: [id number] INSECTICIDE MAKER!44 CTICIDE MAKER documented in this encounter Plan of Treatment Upcoming Encounters Date Type Specialty Care Team Description 02/02/2022 Immunization Family Medicine 02/12/2022 Office Visit Dermatology Lacy Dykes M.D. [address] [place], [place] [phone] (Wo rk) 02/22/2022 Office Visit Orthopedic Surgery Kimberlyn Mayer APRN, C.N.P., D.N.P. [address], [place] [phone] (Wo rk) 03/12/2022 Diagnostic Otorhinolaryngology Blanka Carranza, C.N.P. [address] [place] [address] Aleena Hassan Au.D. [address] [place] [phone] documented as of this encounter Visit Diagnoses Not on filedocumented in this encounter Additional Health Concerns Assessment Noted Time PHQ-9 Depression Total Score: 1 04/13/2013 11:36 AM CS T documented as of this encounter
--- OUTSIDE RECORDS SUMMARY | 2022-01-31 09:42 | XMS_ITS | Encounter Summary ---
:1955 Author Organization [facility] Address [address] [place] [address] Care Team Providers Name Role Phone Unavailable Primary Care Provider Unavailable Encounter Details Date Type Department Care Team Description 07/16/2013 Hospital Encounter HX [facility] Kimberlyn Mayer, JOSE DANIEL, C.N.P., D. N.P. [address] [place] [phone] (Wo rk) Social History Tobacco Use Types Packs/Day Years Used Date Smoking Tobacco: Never Assessed Alcohol Habits Answer Date Recorded How often do you have a drink containing 4 or more times a w [facility] [place] 07/30/2021 alcohol? How many drinks containing [...] you attend judaism or Patient refused 2021 denominational services? 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 Last Filed Vital Signs Vital Sign Reading Time Taken Comments Blood Pressure 124/76 07/16/2013 8:44 AM CDT Pulse 70 07/16/2013 8:44 AM CDT Temperature - - Respiratory Rate 16 07/16/2013 8:44 AM CDT Oxygen Saturation - - Inhaled Oxygen Concentration - - Weight 70.6 kg (155 lb 10.3 oz) 07/16/2013 8:44 AM CDT Height 161 cm (5' 3.39) 07/16/2013 8:44 AM CDT Body Mass Index 27.24 07/16/2013 8:44 AM CDT documented in this encounter Medications at Time of Discharge Medication Sig Dispensed Refills Start Date End Date B.ANI/L.ACI/L.BERNICE/L.PLAN/ Take 1 capsule by 0 06/2012 L.TASH (PROBIOTIC FORMULA mouth daily. ORAL) documented as of this encounter Progress Notes Kimberlyn Mayer, JOSE DANIEL, C.N.P. - 07/16/2013 8:36 AM CDT [id number] CHIEF COMPLAINT/REASON FOR VISIT 1. Hypertension. 2. Allergies. HISTORY OF PRESENT ILLNESS 1. Priscilla is a very, very pleasant 57-year-old female comes in today for review of her laboratory studies as well as a recheck of her blood pressure. She states that she has been checking her blood pressure and it is usually running in the low 130s pretty persistent. However, today it looks excellent. She really does not want to have any medication changes as she really would like to work hard this summer with exercise and watching her diet to make these modifications. Given her results I think that is very appropriate. 2. Allergies. Patient states that she has been having a dry cough wakes her up at night. She has used Claritin and Flonase despite that has not had any improvement. She knows these are her allergies, it gives her a little sinus pressure. She does not feel otherwise ill. She can note the postnasal drainage also. She states that all the iipi-jod-cbzbtss remedies have not worked. She has tried Zyrtec also as well as Siena. 3. Insomnia. Patient was just questioning why we decreased her Ambien to 5 mg. She rarely uses it and will continue with that dosage. MEDICATIONS See EMR for details. New reconciled medication is Siena-D 1 tablet twice daily as needed. ALLERGIES Please see the EMR for details. SYSTEMS REVIEW No chest pain or shortness of breath. No activity intolerance. No changes in bowel or bladder habitsand no lower extremity edema. PHYSICAL EXAMINATION VITAL SIGNS: Blood pressure is 124/76 with a pulse of 70. Her weight is 70.6 kg. GENERAL: Patient appears non-distress. SKIN: Warm and dry. HEAD: Normocephalic. HEART: Regular rate and rhythm. LUNGS: Clear to auscultation. ABDOMEN: Soft, no organomegaly. EXTREMITIES: Without any edema. IMPRESSION/REPORT/PLAN 1. Hypertension well controlled. Patient would really like to focus on lifestyle changes. She thinksshe can do them on her own. We will recheck her blood pressure in about 2 to 3 months. 2. Allergies. I will have her use some Claritin D. We talked about correct administration as well aspotential side effects to these medications. 3. Insomnia. She is doing well with the rare use of Ambien 5 mg and will continue with that. PATIENT EDUCATION Ready to learn. No apparent learning barriers were identified. Learning preferences include listening. Explained diagnosis and treatment plan. Patient/Child/Caregiver expressed understanding of the content. Kimberlyn Mayer, F.N.P./[facility] Electronically Signed By: KIMBERLYN MAYER RN, DIRECTOR OF RETAIL MERCHANDISING On: 08/03/2013 04:57 PM Source: [facility] MHSDOLBEYNONRADSYS Document Id: [id number] documented in this encounter Miscellaneous Notes Miscellaneous - Wm Louis L.P.N. 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 Intake/History Document Has Been Updated Adult Aircraft Design Engineer Intake/History Entered On: 07/16/2013 8:47 CDT Performed On: 07/16/2013 8:44 CDT by WM LOUIS LPN Intake Chief Complaint : Follow up lab work and B/P Temperature Core : 36.3 DegC(Converted to: 97.3 DegF) (LOW) Peripheral Pulse Rate : 70 /min Respiratory Rate : 16 /min Heart Rhythm : Regular Systolic Blood Pressure : 124 mmHg Diastolic Blood Pressure : 76 mmHg NIBP Mean : 92 mmHg BP Location : Left upper extremity Blood Pressure Cuff Size : Large Height : 161 cm(Converted to: 5 ft 3 inch(es), 63 inch(es)) Actual Weight : 70.6 kg(Converted to: 155 lb 10 oz) Weight Source : Standing scale Dosing Weight Clinic : 70.6 kg Clinic BSA : 1.78 Body Mass Index : 27.24 kg/m2 WM LOUIS LPN - 07/16/2013 8:44 CDT General Info Information Given By : Patient Preferred Communication Mode : Verbal Languages : Argentine WM LOUIS LPN - 07/16/2013 8:44 CDT Subjective Pain Symptoms : No WM LOUIS LPN - 07/16/2013 8:44 CDT Dependent Habits Tobacco Use/Currently Using : No Exposure to Tobacco Smoke : Care provider denies smoking in home Smoking Status : Former smoker WM LOUIS LPN - 07/16/2013 8:44 CDT Tobacco Use Grid Type : Cigarettes Last Use : age 32 WM LOUIS LPN - 07/16/2013 8:44 CDT Caffeine Use Grid Caffeine Use : Current Type : Coffee Frequency : Daily WM LOUIS LPN - 07/16/2013 8:44 CDT Recreational Drug Use Grid Drug Use : None WM LOUIS LPN - 07/16/2013 8:44 CDT Allergy (As Of: 07/16/2013 08:47:38 CDT) Allergies (Active) Daptacel (DTaP) Estimated Onset Date: Unspecified ; Created By: HARMEET LOPEZ LPN; Reaction Status: Active ; Category: Drug ; Substance: Daptacel (DTaP) ; Type: Allergy ; Updated By: HARMEET LOPEZ LPN; Reviewed Date: 06/22/2013 13:36 CDT diphtheria/pertussis,acel/tetanus/polio Comments: Comment 1: DTAP-IPV VACCINE ; Created By: Contributor_system, [facility]; Reaction Status: Active ; Category: Drug ; Substance: diphtheria/pertussis,acel/tetanus/polio ; Type: Unknown Other Environmental Comments: Comment 1: SEASONAL ALLERGIES ; Created By: ContributorCalcula Technologiessystem [facility]; Reaction Status: Active ; Category: Environment ; Substance: Other Environmental ; Type: Unknown Pollen Comments: Comment 1: POLLEN EXTRACT ; Created By: Contributor_system [facility]; Reaction Status: Active ; Category: Drug ; Substance: Pollen ; Type: Unknown Synvisc Estimated Onset Date: Unspecified ; Created By: TIERA GUZMAN; Reaction Status: Active ; Category: Drug ; Substance: Synvisc ; Type: Allergy ; Severity: Moderate ; Updated By: TIERA GUZMAN; Reviewed Date: 06/22/2013 13:36 CDT WASP/HORNET VENUM Estimated Onset Date: Unspecified ; Created By: CONSTANCE NAJERA RN; Reaction Status: Active ; Category: Drug ; Substance: WASP/HORNET VENUM ; Type: Allergy ; Severity: Severe ; Updated By: CONSTANCE NAJERA RN; Reviewed Date: 06/22/2013 13:36 CDT Source: [facility] [employer] Document Id: [id number]!40 documented in this encounter Plan of Treatment Upcoming Encounters Date Type Specialty Care Team Description 02/02/2022 Immunization Family Medicine 02/12/2022 Office Visit Dermatology Lacy Dykes M.D. [address] [place] [phone] ([facility]) 02/22/2022 Office Visit Orthopedic Surgery Kimberlyn Mayer APRN, C.N.P., D.N.P. [address] [place], [place] [phone] ([facility]) 03/12/2022 Diagnostic Otorhinolaryngology Blanka Carranza, C.N.P. [address] [place], [place] [id number] Aleena Hassan Au.D. [address] [place] [address] documented as of this encounter Visit Diagnoses Not on filedocumented in this encounter Additional Health Concerns Assessment Noted Time PHQ-9 Depression Total Score: 1 04/13/2013 11:36 AM CS T documented as of this encounter
--- OUTSIDE RECORDS SUMMARY | 2022-01-31 09:42 | XMS_ITS | Encounter Summary ---
:1955 Author Organization [facility] Address [address] [place] [address] Care Team Providers Name Role Phone Unavailable Primary Care Provider Unavailable Encounter Details Date Type Department Care Team Description 12/13/[address] [facility] Kimberlyn Mayer, JOSE DANIEL, C.N.P., D. N.P. [address] [place] [address] (Wo rk) Social History Tobacco Use Types Packs/Day Years Used Date Smoking Tobacco: Never Assessed Alcohol Habits Answer Date Recorded How often do you have a drink containing 4 or more times a w nez [place] 07/30/2021 alcohol? How many drinks containing alcohol [...] or relatives? How often do you attend adventism or Patient refused 2021 protestant services? 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 ORAL) documented as of this encounter Miscellaneous Notes Miscellaneous - Meredith Tobias, L.P.N. - 12/13/2013 8:14 AM CDT *General Message Document Contains Addenda Addendum by MEREDITH TOBIAS LPN on 13 December 2013 09:47:37 CDT Patient notified. Addendum by KIMBERLYN MAYER RN, PAOLO on 13 December 2013 09:33:50 CDT From: KIMBERLYN MAYER RN, MECHANICAL DEVELOPER PROVER To: MEREDITH TOBIAS LPN; Sent: 12/13/2013 09:33:50 CDT Subject: RE: *General Message lets have her increase to two tabs (80mg) daily and recheck BP in 2-3 wks. thanks Addendum by KIMBERLYN MAYER RN, MECHANICAL DEVELOPER PROVER on 13 December 2013 09:32:18 CDT Submitted: Modify:valsartan (Diovan 40 mg oral tablet) 2 tab(s) PO Daily Qty: 14 each Refills: 0 Substitutions Allowed Route To Pharmacy - [facility] Signed by KIMBERLYN MAYER RN, PAOLO 12/13/2013 09:31:35 From: MEREDITH TOBIAS LPN To: KIMBERLYN MAYER RN, MECHANICAL DEVELOPER PROVER; Sent: 12/13/2013 08:14:18 CDT Subject: *General Message Patient came in for BP check. BP 148/89 Pulse- 62. Please advise any new orders. [facility] [employer] Document Id: [id number] Miscellaneous - Meredith Tobias, L.P.N. - 12/13/2013 8:08 AM CDT Ambulatory Vitals Height Weight Ambulatory Vitals Height Weight Entered On: 12/13/2013 8:09 CDT Performed On: 12/13/2013 8:08 CDT by MEREDITH TOBIAS LPN Vitals/Ht/Wt Peripheral Pulse Rate : 62 /min Systolic Blood Pressure : 148 mmHg (HI) Diastolic Blood Pressure : 89 mmHg NIBP Mean : 109 mmHg BP Location : Left upper extremity Blood Pressure Cuff Size : Regular SpO2 : 99 % Height : 161 cm(Converted to: 5 ft 3 inch(es), 63 inch(es)) MEREDITH TOBIAS LPN - 12/13/2013 8:08 CDT [facility] [employer] [employer] Document Id: [id number] CDT!10 documented in this encounter Plan of Treatment Upcoming Encounters Date Type Specialty Care Team Description 02/02/2022 Immunization Family Medicine 02/12/2022 Office Visit Dermatology Lacy Dykes M.D. [address] [place] [phone] (Wo rk) 02/22/2022 Office Visit Orthopedic Surgery Kimberlyn Mayer APRN C.N.P., D.N.P. [address] [place], [place] [phone] (Wo rk) 03/12/2022 Diagnostic Otorhinolaryngology Blanka Carranza C.N.PPhil [address] [place], [place] [phone] Aleena Hassan Au.D. [address] [place] [phone] documented as of this encounter Visit Diagnoses Not on filedocumented in this encounter Additional Health Concerns Assessment Noted Time PHQ-9 Depression Total Score: 1 04/13/2013 11:36 AM CS T documented as of this encounter
--- OUTSIDE RECORDS SUMMARY | 2022-01-31 09:43 | XMS_ITS | Encounter Summary ---
:1955 Author Organization [facility] Address [address] [place] [address] Care Team Providers Name Role Phone Unavailable Primary Care Provider Unavailable Encounter Details Date Type Department Care Team Description 02/25/2011 Hospital Encounter HX [facility] Kimberlyn Mayer, JOSE DANIEL, C.N.P., D. N.P. [address] [place] [address] (Wo rk) Social History Tobacco Use Types Packs/Day Years Used Date Smoking Tobacco: Never Assessed Alcohol Habits Answer Date Recorded How often do you have a drink containing 4 or more times a w [place] 07/30/2021 alcohol? How many drinks containing alcohol [...] or relatives? How often do you attend jehovah's witness or Patient refused 2021 taoism services? 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 - 02/25/2011 12:00 AM CST [id number] CHIEF COMPLAINT/REASON FOR VISIT 1. Is recheck of anxiety and dysthymic disorder. HISTORY OF PRESENT ILLNESS 1. Priscilla is a pleasant 55-year-old female comes in today for recheck of her anxiety. She states that she has definitely noticed an improvement with medication. She is very happy with the improvement. States that she is still is emotional but deals with her stress much more manageable, her concentration is better. Some situations in her life have not changed and actually gotten a little worse but she feels like is them much better. MEDICATIONS Please see the EMR for those details. ALLERGIES Please see EMR for those details. PHYSICAL EXAMINATION IN GENERAL: The patient is well groomed, maintains good eye contact, very kind. PHQ9: Her PHQ9 score is two. VITAL SIGNS Please see EMR IMPRESSION/REPORT/PLAN IMPRESSION & PLAN 1. Dysthymic disorder. I will make no changes in her regimen. Plan to see patient back in six months. She will let me know if she is having any problems prior to that. PATIENT EDU #1 Patient Education Ready to learn. No apparent learning barriers were identified. Learning preferences include listening. Explained diagnosis and treatment plan. Patient/Child/Caregiver expressed understanding of the content. Kimberlyn Mayer N.P. /ritu Electronically Signed By: KIMBERLYN MAYER RN, COIL PLACER On: 03/07/2011 04:05 PM [facility] Document Id: [id number] DEMONSTRATION AGENT documented in this encounter Miscellaneous Notes Miscellaneous - Kimberlyn Mayer APRN, C.N.P. - 02/25/2011 12:50 PM CST Ambulatory Patient Summary [address] [address] Visit Information Name: PRISCILLA HAMPTON Current Date: 02/25/2011 12:50:40 Primary Care Provider: KIMBERLYN MAYER RN, COIL PLACER Your Medications Here is a list of your medications. It is important to take your medications as directed. Use a pillbox or chart to help remind you to take your medications. Please let your doctor or nurse know if you have problems taking your medications. Medication/Strength Dose Route Frequency Indications/Special Instructions/Comments zolpidem (Ambien 10 mg oral tablet) 10 mg Oral once a day (at bedtime) Insomnia citalopram (Celexa 20 mg oral tablet) 20 mg Oral once a day ergocalciferol (Vitamin D2) po daily calcium-vitamin D (Calcium 600+D) 1200mg po daily multivitamin (Vitamin B Complex oral liquid) 5 mL Oral once a day levothyroxine (Synthroid 150 mcg (0.15 mg) oral tablet) 150 mcg Oral once a day Waiting for mail order famciclovir (Famvir 500 mg oral tablet) 500 mg Oral every 8 hours at onset of cold sore x 1day. Misc Prescription (Misc Prescription) 1 tab Oral once a day Your Allergies & Intolerances Substance Reaction Symptoms Category Comments Daptacel (DTaP) Drug Drug Your Problem List Problem Status Onset Comments Thyroid nodule Active history SVT [Supraventricular tachycardia] Active resolved Hypothyroidism following radioiodine therapy Active onset date is unknown General Physical Examination Active Family history - ischemic heart disease Active onset date is unknown Family History of Osteoporosis Active Insomnia Active Date of onset unknown Plantar heel pain Active Stress Active Dysthymic Disorder Active Your Recommendations We want to make sure you get the tests, immunizations, and guidance you need to stay healthy. Here is a customized list of recommendations, based on information we have in your medical record. Your doctor may have additional recommendations for you, based on your personal medical history and risk factors. You can help us by calling us to make an appointment when you are due for your tests. Additional information regarding recommendations: Test/Treatment Last Done Next Due Additional Information Depression: PHQ-9 every 6 months 02/25/2011 08/27/2011 Screening Colonoscopy or Flex Sig or Occult Blood X3 06/08/2007 06/05/2017 Checks for signs of cancer of the colon. Screening Mammogram every 1 year Women 40-75 02/25/2011 X-rays of breast to check for breast cancer. Screening Pap Smear every 3 years Women 21-65 06/14/2010 06/13/2013 Checks for signs of cancer of the cervix. Lipid Panel every 5 years Age 20-75 06/14/2010 06/13/2015 Checks blood for good (HDL) and bad (LDL) cholesterol. Know your numbers, they are one indicator of your risk for heart attack and stroke. Vaccine: Flu every 1 year 02/25/2011 Immunization to help prevent you from getting the flu strain expected to be a problem for that year's flu season. Vaccine: Tetanus every 10 years 11/25/2005 11/23/2015 Immunization to help prevent you from getting the serious disease Tetanus (Lockjaw). Your Upcoming Appointments Date Time Location Reason Provider No Appointments found Your Goals/Additional instructions: Source: [facility] [employer]ART Document Id: [id number] DEMONSTRATION AGENT Miscellaneous - Kimberlyn Mayer APRN, C.N.P. - 02/25/2011 12:50 PM CST Ambulatory Depart Summary [id number] [place] [address] Visit Information Name: PRISCILLA HAMPTON Current Date: 02/25/2011 12:50:38 Primary Care Provider: KIMBERLYN MAYER RN, COIL PLACER PRISCILLA HAMPTON has been given the following list of medications: Your Medications It is important to take your medications as directed. Use a pill box or chart to help remind you to take your medications. Please let your doctor or nurse know if you have problems taking your medications. Medication/Strength Dose Route Frequency Indications/Special Instructions/Comments zolpidem (Ambien 10 mg oral tablet) 10 mg Oral once a day (at bedtime) Insomnia citalopram (Celexa 20 mg oral tablet) 20 mg Oral once a day ergocalciferol (Vitamin D2) po daily calcium-vitamin D (Calcium 600+D) 1200mg po daily multivitamin (Vitamin B Complex oral liquid) 5 mL Oral once a day levothyroxine (Synthroid 150 mcg (0.15 mg) oral tablet) 150 mcg Oral once a day Waiting for mail order famciclovir (Famvir 500 mg oral tablet) 500 mg Oral every 8 hours at onset of cold sore x 1day. Misc Prescription (Misc Prescription) 1 tab Oral once a day Additional Information: Yes - Current list of reconciled medications is provided and explained to the patient and/or family, guardian/caregiver. Source: [facility] [place] Document Id: [id number] DEMONSTRATION AGENT Miscellaneous - Kimberlyn Mayer APRN, C.N.P. - 02/25/2011 12:50 PM CST Quality Measures Quality Measures Entered On: 02/25/2011 12:50 HOME DEMONSTRATION AGENT Performed On: 02/25/2011 12:50 HOME DEMONSTRATION AGENT by KIMBERLYN MAYER RN, CNP Depression PHQ-9 Score : 2 KIMBERLYN MAYER RN, PAOLO - 02/25/2011 12:50 HOME DEMONSTRATION AGENT Source: [facility] [employer] Document Id: [id number] HOME DEMONSTRATION AGENT!3 DEMONSTRATION AGENT Miscellaneous - Isabela Conrad L.P.N. - 02/25/2011 12:23 PM CST Ambulatory Vitals Height Weight Ambulatory Vitals Height Weight Entered On: 02/25/2011 12:24 HOME DEMONSTRATION AGENT Performed On: 02/25/2011 12:23 HOME DEMONSTRATION AGENT by ISABELA COOK LPN Vitals/Ht/Wt Systolic Blood Pressure : 136mmHg Diastolic Blood Pressure : 70mmHg NIBP Mean : 92mmHg BP Location : Right upper extremity ISABELA COOK LPN - 02/25/2011 12:23 HOME DEMONSTRATION AGENT Source: [facility] POWERCHART Document Id: [id number] HOME DEMONSTRATION AGENT!6 DEMONSTRATION AGENT Miscellaneous - Isabela Conrad L.P.N. 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 Intake/History Entered On: 02/25/2011 12:22 HOME DEMONSTRATION AGENT Performed On: 02/25/2011 12:18 HOME DEMONSTRATION AGENT by ISABELA COOK LPN Intake Chief Complaint : follow up on meds Temperature Core : 36.7C(Converted to: 98.1DegF) Peripheral Pulse Rate : 60/min Respiratory Rate : 16/min Systolic Blood Pressure : 140mmHg Diastolic Blood Pressure : 82mmHg NIBP Mean : 101mmHg BP Location : Right upper extremity Heart Rhythm : Regular Actual Weight : 65.2kg(Converted to: 143lb 12oz) Weight Source : Standing scale Dosing Weight Clinic : 65.20kg ISABELA COOK LPN - 02/25/2011 12:18 HOME DEMONSTRATION AGENT Subjective Pain Symptoms : No ISABELA COOK LPN - 02/25/2011 12:18 HOME DEMONSTRATION AGENT Dependent Habits Tobacco Use/Currently Using : No Smoking Status : Former smoker Alcohol Use : Yes ISABELA COOK LPN - 02/25/2011 12:18 HOME DEMONSTRATION AGENT Caffeine Use Grid Caffeine Use : Current Type : Coffee Frequency : Daily ISABELA COOK LPN - 02/25/2011 12:18 HOME DEMONSTRATION AGENT Allergy Allergies (Active) Daptacel (DTaP) Estimated Onset Date: Unspecified ; Created By: HARMEET LOPEZ LPN; Reaction Status: Active ; Category: Drug ; Substance: Daptacel (DTaP) ; Type: Allergy ; Updated By: HARMEET LOPEZ LPN; Reviewed Date: 12/31/2010 11:16 CDT WASP/HORNET VENUM Estimated Onset Date: Unspecified ; Created By: CONSTANCE NAJERA RN; Reaction Status: Active ; Category: Drug ; Substance: WASP/HORNET VENUM ; Type: Allergy ; Severity: Severe ; Updated By: CONSTANCE NAJERA RN; Reviewed Date: 12/31/2010 11:16 CDT Source: [facility] [place] Document Id: [id number] HOME DEMONSTRATION AGENT!25 DEMONSTRATION AGENT documented in this encounter Plan of Treatment Upcoming Encounters Date Type Specialty Care Team Description 02/02/2022 Immunization Family Medicine 02/12/2022 Office Visit Dermatology Lacy Dykes M.D. [address] [place], [place] [phone] (Wo rk) 02/22/2022 Office Visit Orthopedic Surgery Kimberlyn Mayer APRN, C.N.P., D.N.P. [address] [place], [place] [phone] (Wo rk) 03/12/2022 Diagnostic Otorhinolaryngology Blanka Carranza, C.N.P. [address] [place], [place] [phone] Aleena Hassan Au.D. [address] [place] [phone] documented as of this encounter Visit Diagnoses Not on filedocumented in this encounter
--- OUTSIDE RECORDS SUMMARY | 2022-01-31 09:43 | XMS_ITS | Encounter Summary ---
:1955 Author Organization [facility] Address [address] [place] [address] Care Team Providers Name Role Phone Unavailable Primary Care Provider Unavailable Encounter Details Date Type Department Care Team Description 06/13/2009 Hospital Encounter [facility] Hugo Still, L.P.N. [address] [place], [place] [address] Social History Tobacco Use Types Packs/Day Years Used Date Smoking Tobacco: Never Assessed Alcohol Habits Answer Date Recorded How often do you have a drink containing 4 or more times a w [place] 07/30/2021 alcohol? How many drinks containing [...] you attend cheondoism or Patient refused 2021 synagogue services? 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 - 06/13/2009 12:00 AM KNIFE EDGER [id number] Patient of Dr. Caceres, please review in her absence. Accepting this Rx will FAX it directly to the pharmacy. Thank You! Source: [facility] Document Id: [id number] Telephone Encounter - Svetlana Rowan L.P.N. - 06/13/2009 12:00 AM KNIFE EDGER [id number] Called [facility], the class of drug (Ambien) order is only good for 6 months. She has only filled the prescription twice. Thank You! Source: [facility] Document Id: [id number] documented in this encounter Plan of Treatment Upcoming Encounters Date Type Specialty Care Team Description 02/02/2022 Immunization Family Medicine 02/12/2022 Office Visit Dermatology Lacy Dykes M.D. [address] [place], [place] [phone] (Lisha mccann) 02/22/2022 Office Visit Orthopedic Surgery Kimberlyn Alvarez APRN, C.N.P., D.N.P. [address] [place] [phone] (Lisha mccann) 03/12/2022 Diagnostic Otorhinolaryngology Blanka Carranza, DarrellNPhilPPhil [address] [place] [address] Aleena Hassan Au.D. [address] [place] [phone] documented as of this encounter Visit Diagnoses Not on filedocumented in this encounter
--- OUTSIDE RECORDS SUMMARY | 2022-01-31 09:43 | XMS_ITS | Encounter Summary ---
:1955 Author Organization [facility] Address [address] [place] [address] Care Team Providers Name Role Phone Unavailable Primary Care Provider Unavailable Encounter Details Date Type Department Care Team Description 03/20/2012 Hospital Encounter [facility] Kimberlyn Alvarez AP RN, C.N.P., D.N.P. [address] [place], [place] [phone] (Wo rk) Social History Tobacco Use Types Packs/Day Years Used Date Smoking Tobacco: Never Assessed Alcohol Habits Answer Date Recorded How often do you have a drink containing 4 or more times a w [place] 07/30/2021 alcohol? How many drinks containing alcohol [...] or relatives? How often do you attend scientology or Patient refused 2021 sikhism services? 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 [address] [place], [place] [phone] (Wo rk) 02/22/2022 Office Visit Orthopedic Surgery Kimberlyn Alvarez, JOSE DANIEL, C.N.P., D.N.P. [address] [place], [place] [phone] (Wo rk) 03/12/2022 Diagnostic Otorhinolaryngology Blanka Carranza, C.N.P. [address] [place], [place] [phone] Aleena Hassan Au.D. [address] [place] [phone] documented as of this encounter Procedures Procedure Name Priority Date/Time Associated Diagnosis Comme nts ENTERIC PATH RSLT Routine 03/20/2012 1:22 PM Resu lts for this TECHNICAL ARTIST procedure are i n the results section. documented in this encounter Results HX-Enteric Path Rslt (03/20/2012 1:22 PM TECHNICAL ARTIST) [facility] Time Signature Enteric See Comment POWERCHART Pathogens Culture, Stool Specimen (Source) Anatomical Collection Method Collection Time Re ceived Time Location / / Volume Laterality 03/20/2012 1:22 PM TECHNICAL ARTIST Narrative POWERCHART - 03/23/2012 10:57 AM TECHNICAL ARTIST SOURCE: STOOL ENTERIC PATHOGENS CULTURE, STOOL ? FINAL No growth of Salmonella, Shigella, Yersi leon, Campylobacter, or Aeromonas. Test Performed by: [address] [address] E Learning Manager: Sky jones III, M.D. Binta Sahu M.D. LAB HISTORICAL ORDERS Performing Organization Address City/State/ZIP Code Phon e Number POWERCHART documented in this encounter Visit Diagnoses Not on filedocumented in this encounter Additional Health Concerns Assessment Noted Time PHQ-9 Depression Total Score: 1 06/11/2011 8:31 AM TECHNICAL ARTIST documented as of this encounter
--- OUTSIDE RECORDS SUMMARY | 2022-01-31 09:43 | XMS_ITS | Encounter Summary ---
:1955 Author Organization [facility] Address [address] [place] [address] Care Team Providers Name Role Phone Unavailable Primary Care Provider Unavailable Encounter Details Date Type Department Care Team Description 08/05/2012 [facility] JOSE [facility]ANIEL, C.N.P., D.N.P. [address] [place], [place] [phone] (Wo rk) Social History [...] or relatives? How often do you attend anabaptism or Patient refused 2021 voodoo services? 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 ORAL) documented as of this encounter Plan of Treatment Upcoming Encounters Date Type Specialty Care Team Description 02/02/2022 Immunization Family Medicine 02/12/2022 Office Visit Dermatology Lcay Dykes M.D. [address] [place], [place] [phone] (Wo rk) 02/22/2022 Office Visit Orthopedic Surgery Kimberlyn Alvarez, JOSE DANIEL, C.N.P., D.N.P. [address] [place], [place] [phone] (Wo rk) 03/12/2022 Diagnostic Otorhinolaryngology Blanka Carranza, C.N.P. [address] [place] [address] Aleena Hassan Au.D. [address] [place] [phone] documented as of this encounter Visit Diagnoses Not on filedocumented in this encounter Additional Health Concerns Assessment Noted Time PHQ-9 Depression Total Score: 1 07/08/2012 7:53 AM CDT documented as of this encounter
--- OUTSIDE RECORDS SUMMARY | 2022-01-31 09:43 | XMS_ITS | Encounter Summary ---
:1955 Author Organization [facility] Address [address] [place] [address] Care Team Providers Name Role Phone Unavailable Primary Care Provider Unavailable Encounter Details Date Type Department Care Team Description 12/31/2010 Hospital Encounter HX NO MAPPING Dilma Harris, PreetiPPhilMPhil [address] [place] [phone] (Wo rk) Social History Tobacco Use Types Packs/Day Years Used Date Smoking Tobacco: Never Assessed Alcohol Habits Answer Date Recorded How often do you have a drink containing 4 or more times a w minto 07/30/2021 alcohol? How many drinks containing alcohol [...] you attend methodist or Patient refused 2021 congregation services? 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 - 12/31/2010 12:00 AM CDT ORTHOCONOS IMPRESSION/REPORT/PLAN Bilateral plantar fasciitis. Discussed the nature of the condition with the patient. Recommended that she cut back on her optional exercise at this time. We discussed treatment options and she is desiring injections of cortisone bilaterally. Following informed consent, 3 cc of a 1:1:1 mix of 1% Xylocaine plain, dexamethasone phosphate, and Kenalog 40 was infiltrated into each plantar fascial calcaneal insertion area. Patient instructed to follow up if she has continued problems, questions, concerns, or recurrence. Also briefly discussed the possibility of surgical intervention if this should continue to be problematic for her in the future. Patient understanding and happy with this plan. HISTORY OF PRESENT ILLNESS Patient is seen for consult for plantar fasciitis that has failed conservative treatment. She is a well-educated woman who has done her research on this topic. 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 and is, therefore, very well Versed in medical lingo. She has tried previous treatment such as ice, stretching, anti-inflammatories, and also has very supportive and appropriate orthotics made by a chiropractor and these seem to be fitting her well. X-rays were also done previously and I did review showing small plantar calcaneal spur but otherwise no abnormalities. Patient states this has been going on about 6 months. PHYSICAL EXAMINATION EXTREMITIES: pain to palpation of plantar medial calcaneal tubercle definitely right greater than left. No pain on medial collateral compression. No posterior calcaneal pain. No erythema, edema, ecchymosis, or signs of acute process. Dilma Harris D.P.M. / Electronically Signed By: DILMA HARRIS DPM On: 01/02/2011 12:32 PM Source: [facility] MHSDOL[facility] Document Id: [id number] documented in this encounter Miscellaneous Notes Miscellaneous - Conversion, Historical Provider Ser - 12/31/2010 11:16 AM CDT Adult Nurses' Aide Intake/History Adult Nurses' Aide Intake/History Entered On: 12/31/2010 11:24 CDT Performed On: 12/31/2010 11:16 CDT by CONSTANCE NAJERA branch or department chief librarian Chief Complaint: pain right foot arch and heel. To a lesser degree, pain in left foot, same areas. Pt has tried ice, tennis balls and orthotics. x-rays done right foot clinic. Onset of Symptoms: october 2010 Systolic Blood Pressure: 118mmHg Diastolic Blood Pressure: 72mmHg NIBP Mean: 87mmHg BP Location: Left upper extremity CONSTANCE NAJERA RN - 12/31/2010 11:16 CDT Subjective Pain Symptoms: Yes CONSTANCE NAJERA RN - 12/31/2010 11:16 CDT Pain Pain Assessment Grid Pain 1 Location: Foot Laterality: Right Intensity: 8 Acceptable Intensity: 3 Time Pattern: Chronic Onset: Gradual Quality: Radiating, Sharp (Comment: pins [CONSTANCE NAJERA RN - 12/31/2010 11:16 CDT] ) Pain Radiation: Yes Alleviating Factors: Cold therapy, Other: stretching CONSTANCE NAJERA RN - 12/31/2010 11:16 CDT Dependent Habits Tobacco Use/Currently Using: No Alcohol Use: Yes CONSTANCE NAJERA RN - 12/31/2010 11:16 CDT Caffeine Use Grid Caffeine Use: Current Type: Coffee Frequency: Daily CONSTANCE NAJERA RN - 12/31/2010 11:16 CDT Allergy Allergies (Active) Daptacel (DTaP) Estimated Onset [...] RN; Reviewed Date: 12/31/2010 11:16 CDT Source: [facility] POWERCHART Document Id: [id number] documented in this encounter Plan of Treatment Upcoming Encounters Date Type Specialty Care Team Description 02/02/2022 Immunization Family Medicine 02/12/2022 Office Visit Dermatology Lacy Dykes M.D. [address] [place], [place] [phone] (Lisha mccann) 02/22/2022 Office Visit Orthopedic Surgery Kimberlyn Alvarez APRN, C.N.P., D.N.P. [address] [place], [place] [phone] (Wo rk) 03/12/2022 Diagnostic Otorhinolaryngology Blanka Carranza, C.N.P. [address] [place] [address] Aleena Hassan Au.D. [address] [place] [address] documented as of this encounter Visit Diagnoses Not on filedocumented in this encounter
--- OUTSIDE RECORDS SUMMARY | 2022-01-31 09:43 | XMS_ITS | Encounter Summary ---
:1955 Author Organization [facility] Address [address] [place] [address] Care Team Providers Name Role Phone Unavailable Primary Care Provider Unavailable Encounter Details Date Type Department Care Team Description 06/11/2011 Hospital Encounter HX [facility] Kimberlyn Mayer, JOSE DANIEL, C.N.P., D. N.P. [address] [place] [address] (Wo rk) Social History Tobacco Use Types Packs/Day Years Used Date Smoking Tobacco: Never Assessed Alcohol Habits Answer Date Recorded How often do you have a drink containing 4 or more times a w [place] 07/30/2021 alcohol? How many drinks containing alcohol [...] you attend denominational or Patient refused 2021 mosque services? 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 - 06/11/2011 12:00 AM CST [id number] CHIEF COMPLAINT/REASON FOR VISIT 1. Recheck of stress and dysthymia. HISTORY OF PRESENT ILLNESS 1. Priscilla is a 55-year-old female who comes in today for a followup of her dysthymic disorder and stress reactions. We placed her on Celexa. She states that clearly she is doing much much better. She had to deal with the of her dog and she states that she felt like she did very well with that with the assistance of the medication. She denies any side effects. Initially she did have some headaches with some dizziness but that completely resolved within a week after starting the medications. She overall feels that she is doing very well and has no particular concerns at this time. CURRENT MEDICATIONS Ambien. Calcium. Celexa. Famvir. Synthroid. Testosterone. Vitamin B. Vitamin D. ALLERGIES DTaP. Wasp and hornet venom. SYSTEMS REVIEW She denies any shortness of breath but has noted significant tachycardia and palpitations, especially when she starts exercising which was somewhat concerning to her she does have a family history of coronary artery disease and does have a history of SVT. She states that it usually will resolve after she calms down but she states that it definitely is more than what is normal. She denies feeling lightheaded or passing out and does know that when she gets to that point she has to slow things down and rest again. She denies any changes in bowel or bladder habits. She does have a familial history of several polyps in her family. She had polyps herself and was recommended for a repeat colonoscopy in three years which she is due for at this time. She denies any heat and cold intolerances or any changes in her skin or hair. No significant weight changes. PAST MEDICAL/SURGICAL HISTORY Please see the EMR for those details. SOCIAL HISTORY She is a past smoker and quit over 17 years ago. She is not but has a significant other. VITAL SIGNS Please see the EMR PHYSICAL EXAMINATION No physical examination performed today. Patient is well groomed, maintains eye contact, and is very animated. IMPRESSION/REPORT/PLAN 1. Dysthymic disorder and stress. Patient is doing very well on the Celexa and will continue with that. 2. Hypothyroidism. Patient is due for a TSH. We will check that on a return visit when she comes in for a general medical exam. We will also do a vitamin D level at that time. 3. Osteopenia. Patient does have a history of the osteopenia and we will get a vitamin D level on her return prior to her general medical exam. 4. History of colon polyps. We will obtain a colonoscopy prior to her return. She would like to have that done in [place]. 5. History of SVT and some noted tachycardia. We will go ahead and order a stress echo at this time and we will review that on her return visit. We will also obtain a mammogram and we will review all of these on her return visit for a full general medical exam. PATIENT EDUCATION: Ready to learn No apparent learning barriers were identified Learning preferences include listening Explained diagnosis and treatment plan Patient/Child/Caregiver expressed understanding of the content Kimberlyn Mayer N.P. /fatmata Electronically Signed By: KIMBERLYN MAYER RN, PAOLO On: 06/19/2011 07:08 AM Source: [facility] [email or web address] Document Id: [id number] documented in this encounter Nursing Notes Conversion, Historical Provider Ser - 06/11/2011 4:46 PM CST Referral Referral to RW for colonoscopy. Order Fax'd to [phone]. Navya will contact pt to set up date. Pt aware of process. Electronically Signed By: LAURA LANDIN LPN On: 06/11/2011 04:48 PM Source: [facility] POWERCHART Document Id: [id number] documented in this encounter Miscellaneous Notes Miscellaneous - Kimberlyn Mayer APRN, C.N.P. - 06/11/2011 4:16 PM CST Ambulatory Patient Summary [address] [address] Visit Information Name: PRISCILLA HAMPTON Current Date: 06/11/2011 16:16:08 Physicians Attending Provider: KIMBERLYN MAYER RN, GROUP CARE WORKER Primary Care Provider: KIMBERLYN MAYER RN, GROUP CARE WORKER Your Medications Here is a list of your medications. It is important to take your medications as directed. Use a pillbox or chart to help remind you to take your medications. Please let your doctor or nurse know if you have problems taking your medications. Medication/Strength Dose Route Frequency Indications/Special Instructions/Comments bisacodyl (Bisco-Lax 5 mg oral enteric coated tablet) See Instructions as directed for colonoscopy prep polyethylene glycol 3350 with electrolytes (GoLYTELY oral powder for reconstitution) 240 mL Oral every 10 minutes as directed for colonoscopy prep levothyroxine (Synthroid 150 mcg (0.15 mg) oral tablet) 150 mcg Oral once a day testosterone (testosterone 2% transdermal cream) once a day zolpidem (Ambien 10 mg oral tablet) 10 mg Oral once a day (at bedtime) Insomnia citalopram (Celexa 20 mg oral tablet) 20 mg Oral once a day ergocalciferol (Vitamin D2) po daily calcium-vitamin D (Calcium 600+D) 1200mg po daily multivitamin (Vitamin B Complex oral liquid) 5 mL Oral once a day famciclovir (Famvir 500 mg oral tablet) 500 [...] date is unknown General Physical Examination Active 06/14/2010 Family history - ischemic heart disease Active onset date is unknown Family History of Osteoporosis Active onset unknown Insomnia Active Date of onset unknown Plantar heel pain Active onset unknown Stress Active onset unknown Dysthymic Disorder Active 04/07/2010 Osteopenia Active Colon, polyp, benign Active Your Recommendations We want to make [...] Depression: PHQ-9 every 6 months 02/25/2011 08/27/2011 Health Assessment every 1 year 06/11/2011 06/10/2012 Screening Colonoscopy or Flex Sig or Occult Blood 06/08/2007 06/05/2017 Checks for signs of cancer of the colon. Screening Pap Smear every 3 years Women 21-65 06/14/2010 06/13/2013 Checks for signs of cancer of the cervix. Lipid Panel every 5 years Age 20-75 06/14/2010 06/13/2015 Checks blood for good (HDL) and bad (LDL) cholesterol. Know your numbers, they are one indicator of your risk for heart attack and stroke. Vaccine: Flu every 1 year 06/11/2011 Immunization to help prevent you from getting the flu strain expected to be a problem for that year's flu season. Vaccine: Tetanus every 10 years 11/25/2005 11/23/2015 Immunization to help prevent you from getting the serious disease Tetanus (Surinderjaw). Your Upcoming Appointments Date Time Location Reason Provider No Appointments found Your Goals/Additional instructions: Source: [facility] POWERCHART Document Id: [id number] N FISHING GUIDE Miscellaneous - Kimberlyn Mayer APRN, C.N.P. - 06/11/2011 4:16 PM CST Ambulatory Depart Summary [address] [address] Visit Information Name: PRISCILLA HAMPTON Visit Date: 06/11/2011 16:16:08 Attending Provider: KIMBERLYN MAYER RN, GROUP CARE WORKER Primary Care Provider: KIMBERLYN MAYER RN, GROUP CARE WORKER PRISCILLA HAMPTON has been given the following list of medications: Your Medications It is important to take your medications as directed. Use a pill box or chart to help remind you to take your medications. Please let your doctor or nurse know if you have problems taking your medications. Medication/Strength Dose Route Frequency Indications/Special Instructions/Comments bisacodyl (Bisco-Lax 5 mg oral enteric coated tablet) See Instructions as directed for colonoscopy prep polyethylene glycol 3350 with electrolytes (GoLYTELY oral powder for reconstitution) 240 mL Oral every 10 minutes as directed for colonoscopy prep levothyroxine (Synthroid 150 mcg (0.15 mg) oral tablet) 150 mcg Oral once a day testosterone (testosterone 2% transdermal cream) once a day zolpidem (Ambien 10 mg oral tablet) 10 mg Oral once a day (at bedtime) Insomnia citalopram (Celexa 20 mg oral tablet) 20 mg Oral once a day ergocalciferol (Vitamin D2) po daily calcium-vitamin D (Calcium 600+D) 1200mg po daily multivitamin (Vitamin B Complex oral liquid) 5 mL Oral once a day famciclovir (Famvir 500 mg oral tablet) 500 mg Oral every 8 hours at onset of cold sore x 1day. Misc Prescription (Misc Prescription) 1 tab Oral once a day progesterone Attention: If you have any medications at home that are not on this list, DO NOT take them until youcontact your provider for clarification. Additional Information: Source: [facility] POWERCHART Document Id: [id number] N FISHING GUIDE Wm Zambrano L.P.N. - 06/11/2011 11:30 AM CST Ambulatory Vitals Height Weight Ambulatory Vitals Height Weight Entered On: 06/11/2011 11:30 OCEAN FISHING GUIDE Performed On: 06/11/2011 11:30 OCEAN FISHING GUIDE by WM LOUIS LPN Vitals/Ht/Wt Systolic Blood Pressure : 122mmHg Diastolic Blood Pressure : 70mmHg NIBP Mean : 87mmHg BP Location : Right upper extremity WM LOUIS LPN - 06/11/2011 11:30 OCEAN FISHING GUIDE [facility] Document Id: [id number] OCEAN FISHING GUIDE!6 N FISHING GUIDE Wm Zambrano L.P.N. - 06/11/2011 11:22 AM CST Health Assessment Health Assessment Entered On: 06/11/2011 11:23 OCEAN FISHING GUIDE Performed On: 06/11/2011 11:22 OCEAN FISHING GUIDE by WM LOUIS LPN Health Assessment Complete Health Assessment Complete or Modified : Annual Health Assessment Annual Health Assessment Completed : Yes WM LOUIS LPN - 06/11/2011 11:22 OCEAN FISHING GUIDE Nutrition Nutrition Risk Factors by History Adult : None WM LOUIS LPN - 06/11/2011 11:22 OCEAN FISHING GUIDE Functional Current Daily Living Assistance : None WM LOUIS LPN - 06/11/2011 11:22 OCEAN FISHING GUIDE Dependent Habits Tobacco Use/Currently Using : No Smoking Status : Former smoker WM LOUIS LPN - 06/11/2011 11:22 OCEAN FISHING GUIDE Tobacco Use Grid Type : Cigarettes WM LOUIS LPN - 06/11/2011 11:22 OCEAN FISHING GUIDE Caffeine Use Grid Caffeine Use : Current Type : Coffee Frequency : Daily WM LOUIS LPN - 06/11/2011 11:22 OCEAN FISHING GUIDE Recreational Drug Use Grid Drug Use : None WM LOUIS LPN - 06/11/2011 11:22 OCEAN FISHING GUIDE Psychosocial Domestic Abuse Concerns : None WM LOUIS LPN - 06/11/2011 11:22 OCEAN FISHING GUIDE Advance Directive Advanced Directives : Yes WM LOUIS LPN - 06/11/2011 11:22 OCEAN FISHING GUIDE Educ Needs Learning Style Preference Adult Grid Patient : Demonstration, Printed materials Family : None WM LOUIS LPN - 06/11/2011 11:22 OCEAN FISHING GUIDE Source: [facility] Document Id: [id number] OCEAN FISHING GUIDE!30 N FISHING GUIDE Miscellaneous - Wm Louis LPhilP.NPhil - 06/11/2011 11:17 AM CST Adult Veterans Rehabilitation Counselor Intake/History Adult Veterans Rehabilitation Counselor Intake/History Entered On: 06/11/2011 11:22 OCEAN FISHING GUIDE Performed On: 06/11/2011 11:17 OCEAN FISHING GUIDE by WM LOUIS LPN Intake Chief Complaint : Follow up refill RX Temperature Core : 37.6C(Converted to: 99.7DegF) Peripheral Pulse Rate : 72/min Respiratory Rate : 18/min Heart Rhythm : Regular Systolic Blood Pressure : 146mmHg (HI) Diastolic Blood Pressure : 72mmHg NIBP Mean : 97mmHg BP Location : Left upper extremity Blood Pressure Cuff Size : Regular Height : 159cm(Converted to: 5ft 3inch(es), 62.60inch(es)) Actual Weight : 66.2kg(Converted to: 145lb 15oz) Weight Source : Standing scale Dosing Weight Clinic : 66.20kg Clinic BSA : 1.71 Body Mass Index : 26.19kg/m2 WM LOUIS LPN - 06/11/2011 11:17 OCEAN FISHING GUIDE Subjective Pain Symptoms : No WM LOUIS LPN - 06/11/2011 11:17 OCEAN FISHING GUIDE Dependent Habits Tobacco Use/Currently Using : No Smoking Status : Former smoker WM LOUIS LPN - 06/11/2011 11:17 OCEAN FISHING GUIDE Tobacco Use Grid Type : Cigarettes Comments (Comment: quit 17 yrs ago [WM LOUIS LPN - 06/11/2011 11:17 OCEAN FISHING GUIDE] ) WM LOUIS LPN - 06/11/2011 11:17 OCEAN FISHING GUIDE Alcohol Use : Yes WM LOUIS LPN - 06/11/2011 11:17 OCEAN FISHING GUIDE Caffeine Use Grid Caffeine Use : Current Type : Coffee Frequency : Daily WM LOUIS LPN - 06/11/2011 11:17 OCEAN FISHING GUIDE Recreational Drug Use Grid Drug Use : None WM LOUIS LPN - 06/11/2011 11:17 OCEAN FISHING GUIDE Allergy Allergies (Active) Daptacel (DTaP) Estimated Onset Date: Unspecified ; Created By: HARMEET LOPEZ LPN; Reaction Status: Active ; Category: Drug ; Substance: Daptacel (DTaP) ; Type: Allergy ; Updated By: HARMEET LOPEZ LPN; Reviewed Date: 04/29/2011 9:24 OCEAN FISHING GUIDE WASP/HORNET VENUM Estimated Onset Date: Unspecified ; Created By: CONSTANCE NAJERA RN; Reaction Status: Active ; Category: Drug ; Substance: WASP/HORNET VENUM ; Type: Allergy ; Severity: Severe ; Updated By: CONSTANCE NAJERA RN; Reviewed Date: 04/29/2011 9:24 OCEAN FISHING GUIDE Source: [facility] POWERCHART Document Id: [id number] OCEAN FISHING GUIDE!35 N FISHING GUIDE Miscellaneous - Wm Louis L.PPhilNPhil - 06/11/2011 8:31 AM CST PHQ-9 PHQ-9 Entered On: 06/12/2011 8:31 OCEAN FISHING GUIDE Performed On: 06/11/2011 8:31 OCEAN FISHING GUIDE by WM LOUIS LPN PHQ-9 Little interest or pleasure in doing things : Not at all Feeling down, depressed, or hopeless : Not at all Trouble falling or staying asleep, or sleeping too much : Not at all Feeling tired or having little energy : Not at all Poor appetite or overeating : Not at all Feeling bad about yourself or that you are a failure : Not at all Trouble concentrating on things : Several days Moving or speaking slowly; restless or fidgety : Not at all Thoughts that you would be better off /hurting self : Not at all PHQ-9 Calculated Score : 1 Problems make work, home, or dealing with others : Not difficult at all WM LOUIS LPN - 06/12/2011 8:31 OCEAN FISHING GUIDE Source: [facility] [employer] Document Id: [id number] OCEAN FISHING GUIDE!13 N FISHING GUIDE documented in this encounter Plan of Treatment Upcoming Encounters Date Type Specialty Care Team Description 02/02/2022 Immunization Family Medicine 02/12/2022 Office Visit Dermatology Lacy Dykes M.D. [address] [place], [place] [phone] ([facility]) 02/22/2022 Office Visit Orthopedic Surgery Kimberlyn Mayer, JOSE DANIEL, C.N.P., D.N.P. [address] [place], [place] [phone] (Wo rk) 03/12/2022 Diagnostic Otorhinolaryngology Blanka Carranza, C.N.P. [address] [place] [address] Aleena Hassan Au.D. [address] [place] [address] documented as of this encounter Visit Diagnoses Not on filedocumented in this encounter Additional Health Concerns Assessment Noted Time PHQ-9 Depression Total Score: 1 06/11/2011 8:31 AM OCEAN FISHING GUIDE documented as of this encounter
--- OUTSIDE RECORDS SUMMARY | 2022-01-31 09:43 | XMS_ITS | Encounter Summary ---
:1955 Author Organization [facility] Address [address] [place] [address] Care Team Providers Name Role Phone Unavailable Primary Care Provider Unavailable Encounter Details Date Type Department Care Team Description 09/24/2010 Hospital Encounter HX [facility] Kimberlyn Alvarez AP RN, C.N.P., D.N.P. [address] [place], [place] [phone] (Wo rk) Social History Tobacco Use Types Packs/Day Years Used Date Smoking Tobacco: Never Assessed Alcohol Habits Answer Date Recorded How often do you have a drink containing 4 or more times a w [place] 07/30/2021 alcohol? How many drinks containing alcohol [...] or relatives? How often do you attend druze or Patient refused 2021 jehovah's witness services? 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 [address] [place], [place] [phone] (Wo rk) 02/22/2022 Office Visit Orthopedic Surgery Kimberlyn Alvarez, JOSE DANIEL, C.N.P., D.N.P. [address] [place], [place] [phone] (Wo rk) 03/12/2022 Diagnostic Otorhinolaryngology Blanka Carranza, C.N.P. [address] [place] [address] Aleena Hassan Au.D. [address] [place] [address] documented as of this encounter Visit Diagnoses Not on filedocumented in this encounter
--- OUTSIDE RECORDS SUMMARY | 2022-01-31 09:43 | XMS_ITS | Encounter Summary ---
:1955 Author Organization [facility] Address [address] [place] [address] Care Team Providers Name Role Phone Unavailable Primary Care Provider Unavailable Encounter Details Date Type Department Care Team Description 07/03/2011 Hospital Encounter HX NO MAPPING Jose Pappas am, M.D. [address] [place] [address] [phone] (Wo rk) Social History Tobacco Use Types Packs/Day Years Used Date Smoking Tobacco: Never Assessed Alcohol Habits Answer Date Recorded How often do you have a drink containing 4 or more times a w [place] 07/30/2021 alcohol? How many drinks containing alcohol [...] you attend yazidism or Patient refused 2021 hinduism services? 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 [address] [place], [place] [phone] (Wo rk) 02/22/2022 Office Visit Orthopedic Surgery Kimberlyn Alvarez APRN, C.N.P., D.N.P. [address] [place], [place] [phone] (Wo rk) 03/12/2022 Diagnostic Otorhinolaryngology Blanka Carranza, C.N.P. [address] [place], [place] [id number] Aleena Hassan Au.D. 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
--- OUTSIDE RECORDS SUMMARY | 2022-01-31 09:43 | XMS_ITS | Encounter Summary ---
:1955 Author Organization [facility] Address [address] [place] [address] Care Team Providers Name Role Phone Unavailable Primary Care Provider Unavailable Encounter Details Date Type Department Care Team Description 02/14/2012 Hospital Encounter HX [facility] Kimberlyn Mayer, JOSE DANIEL, C.N.P., D.N.P. [address] [place] [phone] Shabnam Emery M.D. Social History Tobacco Use Types Packs/Day Years Used Date Smoking Tobacco: Never Assessed Alcohol Habits Answer Date Recorded How often do you have a drink containing 4 or more times a w [place] 07/30/2021 alcohol? How many drinks containing alcohol [...] you attend voodoo or Patient refused 2021 mosque services? 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 - 02/14/2012 2:58 PM CST [id number] CHIEF COMPLAINT/REASON FOR VISIT Priscilla comes in because of diarrhea. HISTORY OF PRESENT ILLNESS She had an episode of diarrhea last July, had a Campylobacter infection, and was treated with Z-Akhil. She seemed to get better, although she has had episodes of diarrhea off and on since then. Things got worse with nausea, vomiting, and diarrhea five days ago. She was seen in the clinic here on Friday and put on Zofran and Lomotil and the Lomotil is helping some. The Zofran has been helping some, but she continues with her symptoms and she is concerned that she has a recurrence of the Campylobacterand needs antibiotic. She thinks she got the Campylobacter initially from poorly cooked chicken. Shehas not had any other exposures of that sort but the symptoms seem similar. She has had a little bitof blood in her stools as well from the diarrhea. PHYSICAL EXAMINATION GENERAL: On exam her temperature is 37.6. LUNGS: Her lungs are clear. HEART: Her heart is regular without murmur. ABDOMEN: Bowel sounds are present in all four quadrants. ABDOMEN: Abdomen is soft. There is no masses, tenderness, no organomegaly. IMPRESSION/REPORT/PLAN Diarrhea, nausea and vomiting. Plan: We will get some stool samples and check for infection again. We will hold off on treating until we get positive results. In the meantime, she will continue with the Zofran and the Lomotil. Shabnam Emery M.D./fatmata Electronically Signed By: SHABNAM EMERY MD On: 02/14/2012 04:04 PM Source: [facility] [id number] Document Id: [id number] OGEN OPERATOR documented in this encounter Miscellaneous Notes Miscellaneous - Shabnam Emery M.D. - 02/14/2012 5:39 PM CST Ambulatory Patient Summary [address] [address] Visit Information Name: PRISCILLA HAMPTON Current Date: 02/14/2012 17:39:33 Physicians Attending Provider: SHABNAM EMERY MD; KIMBERLYN MAYER RN, BOTTOM BUFFER Primary Care Provider: KIMBERLYN MAYER RN, BOTTOM BUFFER Your Medications Here is a list of your medications. It is important to take your medications as directed. Use a pillbox or chart to help remind you to take your medications. Please let your doctor or nurse know if you have problems taking your medications. Medication/Strength Dose Route Frequency Indications/Special Instructions/Comments diphenoxylate-atropine (Lomotil 2.5 mg-0.025 mg oral tablet) 1 tab(s) Oral four times a day as needed for loose stool ondansetron (Zofran ODT 8 mg oral tablet, disintegrating) 8 mg Oral every 8 hours as needed for Nausea zolpidem (Ambien 10 mg oral tablet) 10 mg Oral once a day (at bedtime) epinephrine (EpiPen Auto-Injector 0.3 mg injectable kit) 0.3 mg Intramuscular as directed as needed for Shortness of breath / Wheezing Severe allergic reaction levothyroxine (Synthroid 150 mcg (0.15 mg) oral tablet) 150 mcg Oral once a day NYDIA citalopram (Celexa 20 mg oral tablet) 20 mg Oral once a day testosterone (testosterone 2% [...] Colon, polyp, benign Active 07/22/11 date unknown Your Upcoming Appointments Date Time Location Reason Provider No Appointments found Your Goals/Additional instructions: Source: [facility] POWERCHART Document Id: [id number] OGEN OPERATOR Miscellaneous - Shabnam Emery M.D. - 02/14/2012 5:39 PM CST Ambulatory Depart Summary [address] [address] Visit Information Name: MEMOPRISCILLA REES Visit Date: 02/14/2012 17:39:32 Attending Provider: SHABNAM EMERY MD; KIMBERLYN MAYER RN, BOTTOM BUFFER Primary Care Provider: KIMBERLYN MAYER RN, BOTTOM BUFFER PRISCILLA HAMPTON has been given the following list of medications: Your Medications It is important to take your medications as directed. Use a pill box or chart to help remind you to take your medications. Please let your doctor or nurse know if you have problems taking your medications. Medication/Strength Dose Route Frequency Indications/Special Instructions/Comments diphenoxylate-atropine (Lomotil 2.5 mg-0.025 mg oral tablet) 1 tab(s) Oral four times a day as needed for loose stool ondansetron (Zofran ODT 8 mg oral tablet, disintegrating) 8 mg Oral every 8 hours as needed for Nausea zolpidem (Ambien 10 mg oral tablet) 10 mg Oral once a day (at bedtime) epinephrine (EpiPen Auto-Injector 0.3 mg injectable kit) 0.3 mg Intramuscular as directed as needed for Shortness of breath / Wheezing Severe allergic reaction levothyroxine (Synthroid 150 mcg (0.15 mg) oral tablet) 150 mcg Oral once a day NYDIA citalopram (Celexa 20 mg oral tablet) 20 mg Oral once a day testosterone (testosterone 2% transdermal cream) once a day calcium-vitamin D (Calcium 600+D) 1200mg po daily Misc Prescription (Misc Prescription) 1 tab Oral once a day progesterone Attention: If you have any medications at home that are not on this list, DO NOT take them until youcontact your provider for clarification. Additional Information: Source: [facility] POWERCHART Document Id: [id number] OGEN OPERATOR Miscellaneous - Tiera Guzman, L.P.N. - 02/14/2012 3:06 PM CST Adult Building Services Coordinator Intake/History Adult Building Services Coordinator Intake/History Entered On: 02/14/2012 15:10 NITROGEN OPERATOR Performed On: 02/14/2012 15:06 NITROGEN OPERATOR by TIERA GUZMAN Intake Chief Complaint : persistent diarrhea and vomitting same symptoms as she had in july Temperature Core : 37.6C(Converted to: 99.7DegF) Peripheral Pulse Rate : 72/min Respiratory Rate : 14/min Heart Rhythm : Regular Systolic Blood Pressure : 100mmHg Diastolic Blood Pressure : 60mmHg NIBP Mean : 73mmHg BP Location : Left upper extremity Blood Pressure Cuff Size : Regular Actual Weight : 66.1kg(Converted to: 145lb 12oz) Weight Source : Standing scale Dosing Weight Clinic : 66.10kg TIERA GUZMAN 02/14/2012 15:06 NITROGEN OPERATOR Subjective Pain Symptoms : No TIERA GUZMAN 02/14/2012 15:06 NITROGEN OPERATOR Dependent Habits Tobacco Use/Currently Using : No Smoking Status : Never smoker TIERA GUZMAN 02/14/2012 15:06 NITROGEN OPERATOR Tobacco Use Grid Type : Cigarettes Last Use : age 32 TIERA GUZMAN 02/14/2012 15:06 NITROGEN OPERATOR Caffeine Use Grid Caffeine Use : Current Type : Coffee Frequency : Daily TIERA GUZMAN 02/14/2012 15:06 NITROGEN OPERATOR Recreational Drug Use Grid Drug Use : None TIERA GUZMAN 02/14/2012 15:06 NITROGEN OPERATOR Allergy Allergies (Active) Daptacel (DTaP) Estimated Onset Date: Unspecified ; Created By: HARMEET LOPEZ LPN; Reaction Status: Active ; Category: Drug ; Substance: Daptacel (DTaP) ; Type: Allergy ; Updated By: HARMEET LOPEZ LPN; Reviewed Date: 02/11/2012 10:53 NITROGEN OPERATOR WASP/HORNET VENUM Estimated Onset Date: Unspecified ; Created By: CONSTANCE NAJERA RN; Reaction Status: Active ; Category: Drug ; Substance: WASP/HORNET VENUM ; Type: Allergy ; Severity: Severe ; Updated By: CONSTANCE NAJERA RN; Reviewed Date: 02/11/2012 10:53 NITROGEN OPERATOR Source: [facility] POWERCHART Document Id: [id number] OGEN OPERATOR documented in this encounter Plan of Treatment Upcoming Encounters Date Type Specialty Care Team Description 02/02/2022 Immunization Family Medicine 02/12/2022 Office Visit Dermatology Lacy Dykes M.D. [address] [place], [place] [phone] (Lisha mccann) 02/22/2022 Office Visit Orthopedic Surgery Kimberlyn Mayer APRN, C.N.P., D.N.P. [address] [place] [phone] (Wo rk) 03/12/2022 Diagnostic Otorhinolaryngology Blanka Carranza, DarrellNPhilPPhil [address] [place] [address] Aleena Hassan Au.D. [address] [place] [phone] documented as of this encounter Visit Diagnoses Not on filedocumented in this encounter Additional Health Concerns Assessment Noted Time PHQ-9 Depression Total Score: 1 06/11/2011 8:31 AM NITROGEN OPERATOR documented as of this encounter
--- OUTSIDE RECORDS SUMMARY | 2022-01-31 09:43 | XMS_ITS | Encounter Summary ---
:1955 Author Organization [facility] Address [address] [place] [address] Care Team Providers Name Role Phone Unavailable Primary Care Provider Unavailable Encounter Details Date Type Department Care Team Description 07/11/2011 Hospital Encounter [facility]X [facility] Kimberlyn Mayer, JOSE DANIEL, C.N.P., D. N.P. [address] [place] [address] (Wo rk) Social History Tobacco [...] you attend pentecostalism or Patient refused 2021 baptist services? Do you belong to any clubs [...] at Date Recorded Female 05/19/2017 11:19 AM COTTON JAMMER documented as of this encounter Last Filed Vital Signs Vital Sign Reading Time Taken Comments Blood Pressure 120/74 07/11/2011 12:22 PM CDT Pulse 60 07/11/2011 12:22 PM CDT Temperature - - Respiratory Rate 16 07/11/2011 12:22 PM CDT Oxygen Saturation - - Inhaled Oxygen Concentration - - Weight 66.1 kg (145 lb 11.6 oz) 07/11/2011 12:22 PM CDT Height 158.5 cm (5' 2.4) 07/11/2011 12:22 PM CDT Body Mass Index 26.31 07/11/2011 12:22 PM CDT documented in this encounter Progress Notes Kimberlyn Mayer, JOSE DANIEL, C.N.P. - 07/11/2011 12:00 AM CDT [id number] CHIEF COMPLAINT/REASON FOR VISIT Annual exam. HISTORY OF PRESENT ILLNESS Priscilla is a pleasant 55-year-old female who comes in today for an annual exam. She did have some other issues that were addressed on her last visit and she did have a stress echo which was noted to be completely negative. We talked at length in regards to this. She does get annual mammograms. She did have a Pap smear a year ago but states that she does have a history of HPV. I do not see that in her history and she has had normal Pap smears. We did opt to possibly not to do a Pap, but the patient states that she feels more comfortable doing it this year and maybe considering not next year. She has had no new partners. She is sexually active. CURRENT MEDICATIONS Ambien 10 mg daily, calcium with vitamin D daily, Celexa 20 mg by mouth daily, EpiPen as needed, Synthroid 150 mcg by mouth daily, testosterone transdermal cream as needed, vitamin B and vitamin D on a daily basis , and Xanax 0.25 up to three times daily on an as-needed basis which is to be used quite rare. ALLERGIES Wasps, hornet venom, and DTaP. SYSTEMS REVIEW She denies any chest pain or shortness of breath. No changes in bowel or bladder habits. No current infectious symptoms. No new skin lesions. The rest of her review of systems was noted to be negative. PAST MEDICAL/SURGICAL HISTORY Colon polyp, dysthymic disorder, family history of ischemic heart disease, family history of osteoporosis, hypothyroidism, insomnia, osteopenia, plantar fasciitis, stress, supraventricular tachycardia, history of a thyroid nodule, bladder surgery, breast surgery, section, colonoscopy, hand surgery, and a tonsillectomy. SOCIAL HISTORY The patient is not but she is with a significant other. She is a nonsmoker. Occasional use of alcohol. FAMILY HISTORY Please see the EMR for details. It is noteworthy for heart disease. VITAL SIGNS Blood pressure is 120/74. Pulse 60. Temperature 37.2. Height 158 cm. Weight 66.1 kg. BMI is 26.3. PHYSICAL EXAMINATION GENERAL: The patient appears nondistressed. SKIN: Warm and dry. HEENT: Head is normocephalic. ENT examined and negative. LYMPH: No cervical, supraclavicular, axillary, or femoral lymphadenopathy. Thyroid assessed and negative. BREASTS: No masses or abnormalities noted. VESSELS: Carotids with normal upstrokes. No bruits. HEART: Regular rate and rhythm. Normal S1, S2. No murmurs or gallops. PMI is nondisplaced. LUNGS: Clear to auscultation. ABDOMEN: Soft. No organomegaly. GENITALIA: Pap smear obtained without any difficulty. No adnexal tenderness. No abnormalities noted. EXTREMITIES: Without any edema. IMPRESSION/REPORT/PLAN 1. Routine annual general medical exam. We will call her with the results of her Pap. She has one request to get her blood type done due to some family issues. We will go ahead and order that today. 2. Stress. The patient states that she is under a lot of stress. She has noticed a difference since being on the Celexa and likes that medications. She asked how long she will plan on being on it. I did talk to her about six to nine months and then we will discontinue it or wean her down from it. We will put her on a short-acting anxiety medication. 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 I do not feel good about that. I would rather give her an anxiety medication. She will take Xanax 0.25 mg on a very rare basis. She can even cut those in half just to kind of calm her down. She is agreeable to that. 3. Age appropriate counseling and risk factor reduction was provided by Kimberlyn Mayer. We did review results of all her tests. Patient Education Ready to learn No apparent learning barriers were identified Learning preferences include listening Explained diagnosis and treatment plan Patient/Child/Caregiver expressed understanding of the content Kimberlyn Mayer N.P. / Electronically Signed By: KIMBERLYN MAYER RN VOCAL MUSIC INSTRUCTOR On: 07/13/2011 01:49 PM [facility] Document Id: [id number] documented in this encounter Miscellaneous Notes Miscellaneous - Kimberlyn Mayer APRN, C.N.P. - 07/16/2011 8:21 AM CDT Results Notification Document Contains Addenda Addendum by LAURA LANDIN LPN on 16 July 2011 08:42:01 CDT Copy mailed pt. From: KIMBERLYN MAYER RN, VOCAL MUSIC INSTRUCTOR To: LAURA LANDIN LPN; Sent: 07/16/2011 08:21:34 CDT Show up: 07/16/2011 08:21:00 CDT Subject: Results Notification pap is negative. There were scant endocervical cells- related to menopause most likely- No worries as she is low risk. Repeat in 2yrs. Results: Date Result Name Value 07/11/2011 13:58 Spec Desc-[place] See Comment 07/11/2011 13:58 ThPrep Scrn Accn-[place] [id number] 07/11/2011 13:58 ThPrep Scrn Cyto-[place] See Comment 07/11/2011 13:58 ThPrep Scrn Fnl-[place] See Comment Source: [employer] Document Id: [id number] Miscellaneous - Kimberlyn Mayer APRN, C.N.P. - 07/11/2011 3:18 PM CDT Results Notification Document Contains Addenda Addendum by LAURA LANDIN LPN on 12 July 2011 08:35:00 CDT Copy mailed pt. From: KIMBERLYN MAYER RN, VOCAL MUSIC INSTRUCTOR To: LAURA LANDIN LPN; Sent: 07/11/2011 15:18:44 CDT Show up: 07/11/2011 15:19:00 CDT Subject: Results Notification please send her this info. Thanks Results: Date Result Name Value 07/11/2011 13:30 ABO/Rh A POS Source: [employer] Document Id: [id number] Miscellaneous - Kimberlyn Mayer APRN, C.N.P. - 07/11/2011 1:19 PM CDT Ambulatory Patient Summary [address] [place] [address] Visit Information Name: MEMO, PRISCILLA Current Date: 07/11/2011 13:19:52 Physicians Attending Provider: KIMBERLYN MAYER RN, VOCAL MUSIC INSTRUCTOR Primary Care Provider: KIMBERLYN MAYER RN, VOCAL MUSIC INSTRUCTOR Your Medications Here is a list of your medications. It is important to take your medications as directed. Use a pillbox or chart to help remind you to take your medications. Please let your doctor or nurse know if you have problems taking your medications. Medication/Strength Dose Route Frequency Indications/Special Instructions/Comments epinephrine (EpiPen Auto-Injector 0.3 mg injectable kit) 0.3 mg Intramuscular as directed as needed for Shortness of breath / Wheezing Severe allergic reaction alprazolam (Xanax 0.25 mg oral tablet) 0.25 mg Oral three times a day as needed for Anxiety levothyroxine (Synthroid 150 mcg (0.15 mg) oral tablet) 150 mcg Oral once a day NYDIA zolpidem (Ambien 10 mg oral tablet) 10 mg Oral once a day (at bedtime) citalopram (Celexa 20 mg oral tablet) 20 mg Oral once a day testosterone (testosterone 2% transdermal cream) once a day ergocalciferol (Vitamin D2) po [...] Osteopenia Active Colon, polyp, benign Active Your Upcoming Appointments Date Time Location Reason Provider No Appointments found Your Goals/Additional instructions: Source: [facility] POWERCHART Document Id: [id number] Miscellaneous - Kimberlyn Mayer APRN, C.N.P. - 07/11/2011 1:19 PM CDT Ambulatory Depart Summary [address] [address] Visit Information Name: PRISCILLA HAMPTON Visit Date: 07/11/2011 13:19:51 Attending Provider: KIMBERLYN MAYER RN, VOCAL MUSIC INSTRUCTOR Primary Care Provider: KIMBERLYN MAYER RN, VOCAL MUSIC INSTRUCTOR PRISCLILA HAMPTON has been given the following list of medications: Your Medications It is important to take your medications as directed. Use a pill box or chart to help remind you to take your medications. Please let your doctor or nurse know if you have problems taking your medications. Medication/Strength Dose Route Frequency Indications/Special Instructions/Comments epinephrine (EpiPen Auto-Injector 0.3 mg injectable kit) 0.3 mg Intramuscular as directed as needed for Shortness of breath / Wheezing Severe allergic reaction alprazolam (Xanax 0.25 mg oral tablet) 0.25 mg Oral three times a day as needed for Anxiety levothyroxine (Synthroid 150 mcg (0.15 mg) oral tablet) 150 mcg Oral once a day NYDIA zolpidem (Ambien 10 mg oral tablet) 10 mg Oral once a day (at bedtime) citalopram (Celexa 20 mg oral tablet) 20 mg Oral once a day testosterone (testosterone 2% transdermal cream) once a day ergocalciferol (Vitamin D2) po [...] your provider for clarification. Additional Information: Source: [facility] POWERCHART Document Id: [id number] Miscellaneous - Conversion, Historical Provider Ser - 07/11/2011 12:22 PM CDT Adult Potato Chip Maker Intake/History Adult Potato Chip Maker Intake/History Entered On: 07/11/2011 12:26 CDT Performed On: 07/11/2011 12:22 CDT by LINA AMOS LPN Intake Chief Complaint : physical no concerns LMP Date : Postmenopausal Temperature Core : 37.2C(Converted to: 99.0DegF) Peripheral Pulse Rate : 60/min Respiratory Rate : 16/min Systolic Blood Pressure : 120mmHg Diastolic Blood Pressure : 74mmHg NIBP Mean : 89mmHg Height : 158.5cm(Converted to: 5ft 2inch(es), 62.40inch(es)) Actual Weight : 66.1kg(Converted to: 145lb 12oz) Dosing Weight Clinic : 66.10kg Clinic BSA : 1.71 Body Mass Index : 26.31kg/m2 LINA AMOS LPN - 07/11/2011 12:22 CDT Subjective Pain Symptoms : Yes LINA AMOS LPN - 07/11/2011 12:22 CDT Pain Pain Assessment Grid Pain 1 Pain 2 Location : Lower back Foot Laterality : Right Intensity : 3 3 LINA AMOS LPN - 07/11/2011 12:22 CDT LINA AMOS LPN - 07/11/2011 12:22 CDT Dependent Habits Tobacco Use/Currently Using : No Smoking Status : Former smoker LINA AMOS LPN - 07/11/2011 12:22 CDT Tobacco Use Grid Type : Cigarettes Last Use : age 32 LINA AMOS LPN - 07/11/2011 12:22 CDT Caffeine Use Grid Caffeine Use : Current Type : Coffee Frequency : Daily LINA AMOS LPN - 07/11/2011 12:22 CDT Recreational Drug Use Grid Drug Use : None LINA AMOS LPN - 07/11/2011 12:22 CDT Allergy Allergies (Active) Daptacel (DTaP) Estimated Onset Date: Unspecified ; Created By: HARMEET LOPEZ LPN; Reaction Status: Active ; Category: Drug ; Substance: Daptacel (DTaP) ; Type: Allergy ; Updated By: HARMEET LOPEZ LPN; Reviewed Date: 06/11/2011 11:24 COTTON JAMMER WASP/HORNET VENUM Estimated Onset Date: Unspecified ; Created By: CONSTANCE NAJERA RN; Reaction Status: Active ; Category: Drug ; Substance: WASP/HORNET VENUM ; Type: Allergy ; Severity: Severe ; Updated By: CONSTANCE NAJERA RN; Reviewed Date: 06/11/2011 11:24 COTTON JAMMER Source: [facility] Document Id: [id number] documented in this encounter Plan of Treatment Upcoming Encounters Date Type Specialty Care Team Description 02/02/2022 Immunization Family Medicine 02/12/2022 Office Visit Dermatology Lacy Dykes M.D. [address] [place], [place] [phone] (Wo rk) 02/22/2022 Office Visit Orthopedic Surgery Kimberlyn Mayer APRN, C.N.P., D.N.P. [address] [place], [place] [phone] (Wo rk) 03/12/2022 Diagnostic Otorhinolaryngology Blanka Carranza, C.N.P. [address] [place] [address] Aleena Hassan Au.D. [address] [place] [phone] documented as of this encounter Procedures Procedure Name Priority Date/Time Associated Diagnosis Comme nts THINPREP SCREEN HPV Routine 07/11/2011 1:58 PM Re sults for this REFLEX CDT procedure are i n the results section. ABORH, RBC Routine 07/11/2011 1:30 PM Results f or this CDT procedure are i n the results section. documented in this encounter Results Pathology ThinPrep Screen HPV Reflex (07/11/2011 1:58 PM CDT) [facility] gist Method Time Signature Interpretation [id number] POWERCHART HXThPrep Scrn See Comment [facility] Comment: A. ??ThinPrep Pap Test Screen (Cervical/ Endocervical HPV Reflex): Satisfactory for evaluation. Inadequate endocervical/transformation z one component Scanty cellularity. Partially obscuring inflammation. Negative for intraepithelial lesion or m alignancy. Comment: An inadequate endocervical/[place]uston sformational zone component is not necessarily an indicati on for immediately repeating the pap. Correlation with the history an d clinical exam are required. HXThPrep Scrn [facility] See Comment [facility]O RCHART Comment: Report electronically signed by Pritesh Lewis, SCT(ASCP) 07/16/2011 07:55 Interpreted by: Chantel Nicholas, CT (ASCP) [facility] See Comment POWERCHART Comment: A. ??ThinPrep Pap Test Screen (Cervical/ Endocervical HPV Reflex): Received cloudy specimen in ThinPrep via l. Test Performed by: [facility] Dpt of Lab Med and Pathology [address] [place] [address] Inspector Line: Sky jones III, M.D. Specimen Anatomical Collection Method Collection Time Receive d Time (Source) Location / / Volume Laterality Cervix/Endocervi 07/11/2011 1:58 PM 07/10 1:58 x CDT PM CDT Kimberlyn Mayer APRN, C.N.P., D.N.P. LAB PAP PATHDX ORDE TORI Performing Organization Address City/State/ZIP Code Phon e Number POWERCHART ABO/Rh (07/11/2011 1:30 PM CDT) athologist Signature ABORh Interp A POS POWERCHART Specimen (Source) Anatomical Collection Method Collection Time Re ceived Time Location / / Volume Laterality 07/11/2011 1:30 PM CDT Kimberlyn Mayer APRN, C.N.P., D.N.P. LAB BLOOD BANK TEST ORDERABLES Performing Organization Address City/State/ZIP Code Phon e Number POWERCHART documented in this encounter Visit Diagnoses Not on filedocumented in this encounter Additional Health Concerns Assessment Noted Time PHQ-9 Depression Total Score: 1 06/11/2011 8:31 AM COTTON JAMMER documented as of this encounter
--- OUTSIDE RECORDS SUMMARY | 2022-01-31 09:43 | XMS_ITS | Encounter Summary ---
:1955 Author Organization [facility] Address [address] [place] [address] Care Team Providers Name Role Phone Unavailable Primary Care Provider Unavailable Encounter Details Date Type Department Care Team Description 07/03/2011 Hospital Encounter HX NO MAPPING Jose Pappas am, M.D. [address] [place] [phone] (Wo rk) Social History Tobacco [...] you attend yarsani or Patient refused 2021 zoroastrian services? 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 [address] [place], [place] [phone] (Wo rk) 02/22/2022 Office Visit Orthopedic Surgery Kimberlyn Alvarez APRN, C.N.P., D.N.P. [address] [place], [place] [phone] (Wo rk) 03/12/2022 Diagnostic Otorhinolaryngology Blanka Carranza, C.N.P. [address] [place], [place] [phone] Aleena Hassan Au.D. [address] [place] [phone] documented as of this encounter Visit Diagnoses Not on filedocumented in this encounter Additional Health Concerns Assessment Noted Time PHQ-9 Depression Total Score: 1 06/11/2011 8:31 AM COMMUNICATIONS INSTRUCTOR documented as of this encounter
--- OUTSIDE RECORDS SUMMARY | 2022-01-31 09:43 | XMS_ITS | Encounter Summary ---
:1955 Author Organization [facility] Address [address] [place] [address] Care Team Providers Name Role Phone Unavailable Primary Care Provider Unavailable Encounter Details Date Type Department Care Team Description 07/08/2012 Hospital Encounter HX [facility] Kimberlyn Mayer, JOSE DANIEL, C.N.P., D. N.P. [address] [place] [address] (Wo rk) Social History Tobacco Use Types Packs/Day Years Used Date Smoking Tobacco: Never Assessed Alcohol Habits Answer Date Recorded How often do you have a drink containing 4 or more times a w [place] 07/30/2021 alcohol? How many drinks containing alcohol [...] you attend faith or Patient refused 2021 scientology services? 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 ORAL) documented as of this encounter H&P Notes Kimberlyn Mayer, JOSE DANIEL, CPhilN.P. - 07/08/2012 1:08 PM CDT [id number] CHIEF COMPLAINT/REASON FOR VISIT General medical exam age. HISTORY OF PRESENT ILLNESS Priscilla is a pleasant 56-year-old female who comes in today for her annual medical exam. She does need her medications refilled. She has no other particular concerns other than she was concerned that last year she had 2 cases of Campylobacter and has had bouts of loose stools just every once in awhile usually only occurring once but was unusual for her and she wants to know if there is anything particularly she can do to avoid that. She does have a known history of osteopenia and hypothyroidism. Shedoes have history of dysthymic disorder, feels that is well controlled and it is more of anxiety andfocusing and she really feels that Celexa has been helpful for that and does not want to change thatat that this time. Her PHQ-9 score is 9. She is due for her mammogram also. CURRENT MEDICATIONS Ambien 10 mg by mouth daily she takes a half tablet at bedtime on an as-needed basis. Calcium with vitamin 1200 mg daily. Celexa 20 mg by mouth daily. Epi Pen on an as-needed basis. Famvir 500 mg at the onset of a cold sore on an as-needed basis. Cholestron 1 tablet twice daily. Progesterone 1 tablet daily. Probiotic 1 tablet daily. Testosterone 2% transdermal cream on a daily basis. Levothroid new reconciled medication dose is 137 mcg daily. ALLERGIES Wasps. Hornets. DTaP. SYSTEMS REVIEW She denies any visual changes. She denies any hearing difficulties. She denies any activity intolerance. No chest pain now. No shortness of breath. No dizziness, headaches. No skin changes. No changes in bowel or bladder habits. No current infectious symptoms. The rest of her review of systems was noted to be negative. PAST MEDICAL/SURGICAL HISTORY Past medical-surgical history is noteworthy for colon polyps, dysthymic disorder, osteopenia, supraventricular tachycardia, thyroid nodule, plantar fasciitis, increased stress Campylobacter, family history of ischemic heart disease. SOCIAL HISTORY Patient is in a monogamous relationship. She is not currently . She lives with her significant other. She is a nonsmoker. Occasional use of alcohol. She does exercise on a regular basis, is conscientious of her diet. Age appropriate counseling and risk factor reduction was provided. 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 FAMILY HISTORY Family history is noteworthy for ischemic heart disease and osteoporosis, prostate cancer, coronary artery disease, hyperlipidemia. PHYSICAL EXAMINATION VITAL SIGNS: Her blood pressure is 122/70 with a pulse of 70, weight 69.9 kg. GENERAL: Patient appears nondistressed. SKIN: Skin is warm and dry. No lesions or abnormalities noted. HEENT: Unremarkable. LYMPH: With no cervical or supraclavicular lymphadenopathy. Thyroid assessed and negative. VESSELS: Carotids with normal upstrokes, no bruits. HEART: Regular rate and rhythm. Normal S1, S2; no murmurs or gallops. LUNGS: Clear to auscultation with good respiratory effort. ABDOMEN: Soft, no organomegaly. EXTREMITIES: Without any edema. IMPRESSION/REPORT/PLAN 1. General medical exam. 2. Dysthymic disorder. 3. Osteopenia. 4. Hypothyroidism. PLAN: Today we are going to order a mammogram. I did also do diagnostic studies which included a glucose of 96 and a TSH which was noted to be low. We did decrease her levothyroxine down to 137 mcg andwe will recheck her TSH again in 3 months. We are going to continue with her current regimen of medications and make no changes at this time. She will need another bone density scan and we will get that set up. I answered her questions. PATIENT EDUCATION: Ready to learn No apparent learning barriers were identified Learning preferences include listening Explained diagnosis and treatment plan Patient/Child/Caregiver expressed understanding of the content Brooks Contreras/fatmata Electronically Signed By: KIMBERLYN MAYER RN, GARNETT MACHINE OPERATOR On: 07/10/2012 03:32 PM Source: [facility] MHSDOLBEYNONRADSYS Document Id: [id number] documented in this encounter Miscellaneous Notes Miscellaneous - Obed Pereira L.P.N. - 07/24/2012 9:03 AM CDT General Message Document Contains Addenda Addendum by OBED PEREIRA LPN on 24 July 2012 11:48:24 CDT spoke with patient and informed her of Kimberlyn's action and the new medication Rx was sent to [facility]. Advised patient that we would be happy to refund her copay on the previous generic prescription. She should bring in a copy of her reciept and leave it for Katelin Patel and we will take care of it. Patient states that in the future she may just have her meds sent to [facility] because of the problems she has had with mail order. She thanked us for getting back to her was will call if any further concerns. Addendum by OBED PEREIRA LPN on 24 July 2012 10:52:12 CDT From: OBED PEREIRA LPN To: CHRISTINA JULES V; Sent: 07/24/2012 10:52:12 CDT Subject: FW: General Message Addendum by KIMBERLYN MAYER RN, CNP on 24 July 2012 10:01:36 CDT From: KIMBERLYN MAYER RN, CNP To: OBED PEREIRA LPN; Sent: 07/24/2012 10:01:36 CDT Subject: RE: General Message They are the same medicine. Addendum by KIMBERLYN MAYER RN, CNP on 24 July 2012 10:01:08 CDT From: KIMBERLYN MAYER RN, CNP To: OBED PEREIRA LPN; Sent: 07/24/2012 10:01:08 CDT Subject: RE: General Message Addendum by KIMBERLYN MAYER RN, CNP on 24 July 2012 10:01:04 CDT Submitted: Discontinue:levothyroxine (Levothroid 137 mcg (0.137 mg) oral tablet) Signed by KIMBERLYN MAYER RN, CNP 07/24/2012 10:00:59 Addendum by KIMBERLYN MAYER RN, CNP on 24 July 2012 10:00:41 CDT Submitted: Order:levothyroxine (Synthroid 137 mcg (0.137 mg) oral tablet) 1 tab(s) PO Daily NYDIA- No generic please. Qty: 90 tab(s) Refills: 3 Substitutions Allowed Route To Pharmacy - [facility] Signed by KIMBERLYN MAYER RN, CNP From: OBED PEREIRA LPN To: KIMBERLYN MAYER RN, CNP; OBED PEREIRA LPN; Cc: CHRISTINA JULES V; Sent: 07/24/2012 09:03:59 CDT Subject: General Message S. Patient recieved her thyroid medication from [facility] and it was Levothyroxine and NOT Synthroid. B. She has been on Synthroid for YEARS and wants a new prescription sent. She is very upset that shehas #90 tablets at home that she cannot use, she cannot send back and she had to pay for this. She says This kind of thing is happening all the time at this clinic and although she really loves Kimberlyn, this cannot continue.She would like this remedied today. A. This thyroid medication was decreased after her 07/08 physical and unfortunately a new Rx was submitted as Levothyroxine instead of the Synthroid that she had always been on. R. Did you mean for her to be on Levothyroxine? Was this a mistake by the refill nurse? Would you like to reorder this as Synthroid? Should she in the meantime, take the levothyroxine until a new supply of Synthroid is sent? Please advise. [phone] Source: [facility] POWERCHART Document Id: [id number] Miscellaneous - Kimberlyn Mayer, JOSE DANIEL, CPhilNPhilP. - 07/09/2012 9:13 AM CDT Results Notification Document Contains Addenda Addendum by TIERA GUZMAN on 09 July 2012 14:07:34 CDT left message for patient regarding below and copy mailed to patient. From: KIMBERLYN MAYER RN, GARNETT MACHINE OPERATOR To: WM LOUIS LPN; Sent: 07/09/2012 09:13:18 CDT Show up: 07/09/2012 09:11:00 CDT Subject: Results Notification Please let Priscilla know her TSH is a bit low and we need to decrease the Levothyroid to 137mcg daily. New script written and need to recheck TSH again in 3 months. thanks Results: Date Result Name Ind Value Ref Range 07/08/2012 14:15 Glucose Lvl 96 mg/dL (70 - 139) 07/08/2012 14:15 TSH (L) 0.12 mcIU/mL (0.30 - 5.00) Source: [facility] GOOM Document Id: [id number] Miscellaneous - Kimberlyn Mayer APRN, C.N.P. - 07/08/2012 1:49 PM CDT Quality Measures Quality Measures Entered On: 07/08/2012 13:49 CDT Performed On: 07/08/2012 13:49 CDT by KIMBERLYN MAYER RN, PAOLO Depression PHQ-9 Score : 1 KIMBERLYN MAYER RN, PAOLO - 07/08/2012 13:49 CDT Source: [facility]OM Document Id: [id number] Miscellaneous - Wm Louis L.P.NPhil - 07/08/2012 1:19 PM CDT Health Assessment Health Assessment Entered On: 07/08/2012 13:19 CDT Performed On: 07/08/2012 13:19 CDT by WM LOUIS LPN Health Assessment Complete Health Assessment Complete or Modified : Annual Health Assessment Annual Health Assessment Completed : Yes WM LOUIS LPN - 07/08/2012 13:19 CDT Nutrition Nutrition Risk Factors by History Adult : None WM LOUIS LPN - 07/08/2012 13:19 CDT Functional Current Daily Living Assistance : None WM LOUIS LPN - 07/08/2012 13:19 CDT Dependent Habits Tobacco Use/Currently Using : No Smoking Status : Former smoker WM LOUIS LPN - 07/08/2012 13:19 CDT Tobacco Use Grid Type : Cigarettes Last Use : age 32 WM LOUIS LPN - 07/08/2012 13:19 CDT Caffeine Use Grid Caffeine Use : Current Type : Coffee Frequency : Daily WM LOUIS LPN - 07/08/2012 13:19 CDT Recreational Drug Use Grid Drug Use : None WM LOUIS LPN - 07/08/2012 13:19 CDT Psychosocial Domestic Abuse Concerns : None WM LOUIS LPN - 07/08/2012 13:19 CDT Advance Directive Advanced Directives : Yes WM LOUIS LPN - 07/08/2012 13:19 CDT Educ Needs Learning Style Preference Adult Grid Patient : Demonstration, Printed materials Family : None WM LOUIS LPN - 07/08/2012 13:19 CDT [facility] Document Id: [id number] Miscellaneous - Wm Louis LPhilP.NPhil - 07/08/2012 1:13 PM CDT 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 Intake/History Entered On: 07/08/2012 13:17 CDT Performed On: 07/08/2012 13:13 CDT by WM LOUIS LPN Intake Chief Complaint : Refill RX last year 2 cases of canpo bacteria gets bouts of loose stools every once in awhile Temperature Core : 36.9DegC(Converted to: 98.4DegF) Peripheral Pulse Rate : 70/min Respiratory Rate : 18/min Heart Rhythm : Regular Systolic Blood Pressure : 122mmHg Diastolic Blood Pressure : 70mmHg NIBP Mean : 87mmHg BP Location : Right upper extremity Blood Pressure Cuff Size : Regular Actual Weight : 67.9kg(Converted to: 149lb 11oz) Weight Source : Standing scale Dosing Weight Clinic : 67.90kg WM LOUIS LPN - 07/08/2012 13:13 CDT General Info Information Given By : Patient Preferred Communication Mode : Verbal Languages : Malay WM LOUIS LPN - 07/08/2012 13:13 CDT Subjective Pain Symptoms : No WM LOUIS LPN - 07/08/2012 13:13 CDT Dependent Habits Tobacco Use/Currently Using : No Smoking Status : Former smoker TYRONE WMKIMBERLY Leavitt LPN - 07/08/2012 13:13 CDT Tobacco Use Grid Type : Cigarettes Last Use : age 32 OCTAVIANO LOUISKIMBERLY Leavitt LPN - 07/08/2012 13:13 CDT Alcohol Use : Yes OCTAVIANO LOUISKIMBERLY Leavitt LPN - 07/08/2012 13:13 CDT Caffeine Use Grid Caffeine Use : Current Type : Coffee Frequency : Daily TYRONE WM Leavitt LPN - 07/08/2012 13:13 CDT Recreational Drug Use Grid Drug Use : None OCTAVIANO LOUISKIMBERLY Leavitt LPN - 07/08/2012 13:13 CDT Allergy Allergies (Active) Daptacel (DTaP) Estimated Onset Date: Unspecified ; Created By: HARMEET LOPEZ LPN; Reaction Status: Active ; Category: Drug ; Substance: Daptacel (DTaP) ; Type: Allergy ; Updated By: HARMEET LOPEZ LPN; Reviewed Date: 05/22/2012 8:37 ELECTROENCEPHALOGRAPHIC TECHNICIAN WASP/HORNET VENUM Estimated Onset Date: Unspecified ; Created By: CNOSTANCE NAJERA RN; Reaction Status: Active ; Category: Drug ; Substance: WASP/HORNET VENUM ; Type: Allergy ; Severity: Severe ; Updated By: CONSTANCE NAJERA RN; Reviewed Date: 05/22/2012 8:37 ELECTROENCEPHALOGRAPHIC TECHNICIAN Source: [facility] Document Id: [id number] Miscellaneous - Wm Louis L.PPhilNPhil - 07/08/2012 7:53 AM CDT PHQ-9 PHQ-9 Entered On: 07/10/2012 7:53 CDT Performed On: 07/08/2012 7:53 CDT by WM LOUIS LPN PHQ-9 Little interest [...] difficult at all WM LOUIS LPN - 07/10/2012 7:53 CDT Source: [facility] POWERCHART Document Id: [id number] documented in this encounter Plan of Treatment Upcoming Encounters Date Type Specialty Care Team Description 02/02/2022 Immunization Family Medicine 02/12/2022 Office Visit Dermatology Lacy Dykes M.D. [address] [place], [place] [phone] (Lisha rk) 02/22/2022 Office Visit Orthopedic Surgery Kimberlyn Mayer APRN, C.N.P., D.N.P. [address], [place] [phone] ( rk) 03/12/2022 Diagnostic Otorhinolaryngology Blanka Carranza, C.N.P. [address] [place] [address] Aleena Hassan Au.D. [address] [place] [address] documented as of this encounter Procedures Procedure Name Priority Date/Time Associated Diagnosis Comme nts GLUCOSE, P Routine 07/08/2012 2:15 PM Results f or this CDT procedure are i n the results section. THYROID-STIMULATING Routine 07/08/2012 2:15 PM Re sults for this HORMONE-SENSITIVE CDT procedure are in (S-TSH) the results section. documented in this encounter Results Glucose (07/08/2012 2:15 PM CDT) P athologist Signature Glucose 96 70 - 139 POWERCHART MGDL Specimen (Source) Anatomical Collection Method Collection Time Re ceived Time Location / / Volume Laterality Blood 07/08/2012 2:15 PM CDT Kimberlyn Mayer APRN, C.N.P., D.N.P. LAB BLOOD ADD-ON Performing Organization Address City/State/ZIP Code Phon e Number POWERCHART (ABNORMAL) Thyroid-Stimulating Hormone-Sensitive (s-TSH) (07/08/2012 2:15 PM CDT) Analysis Performed At Patho logist Time Signature TSH 0.12 (L) 0.30 - 5.00 POWERCHART (Thyrotropin) MCIUML Specimen (Source) Anatomical Collection Method Collection Time Re ceived Time Location / / Volume Laterality Blood 07/08/2012 2:15 PM CDT Kimberlyn Mayer APRN, C.N.P., D.N.P. LAB BLOOD ADD-ON Performing Organization Address City/State/[facility] Code Phon e Number POWERCHART documented in this encounter Visit Diagnoses Not on filedocumented in this encounter Additional Health Concerns Assessment Noted Time PHQ-9 Depression Total Score: 1 07/08/2012 7:53 AM CDT documented as of this encounter
--- OUTSIDE RECORDS SUMMARY | 2022-01-31 09:43 | XMS_ITS | Encounter Summary ---
:1955 Author Organization [facility] Address [address] [place] [address] Care Team Providers Name Role Phone Unavailable Primary Care Provider Unavailable Encounter Details Date Type Department Care Team Description 02/11/2012 Hospital Encounter HX [facility] Mick Winslow, N.P. [address] [place] [phone] (Wo rk) Social History Tobacco Use Types Packs/Day Years Used Date Smoking Tobacco: Never Assessed Alcohol Habits Answer Date Recorded How often do you have a drink containing 4 or more times a w [place] 07/30/2021 alcohol? How many drinks containing alcohol [...] you attend mandaen or Patient refused 2021 jew services? Do [...] at Date Recorded Female 05/19/2017 11:19 AM UNDERCOAT SPRAYER documented as of this encounter Last Filed Vital Signs Vital Sign Reading Time Taken Comments Blood Pressure 92/64 02/11/2012 10:55 AM UNDERCOAT SPRAYER Pulse 83 02/11/2012 10:55 AM UNDERCOAT SPRAYER Temperature - - Respiratory Rate 18 02/11/2012 10:55 AM UNDERCOAT SPRAYER Oxygen Saturation - - Inhaled Oxygen Concentration - - Weight 67.2 kg (148 lb 2.4 oz) 02/11/2012 10:55 AM UNDERCOAT SPRAYER Height - - Body Mass Index 26.75 07/11/2011 12:22 PM CDT documented in this encounter Progress Notes Ara Winslow N.P. - 02/11/2012 10:31 AM CST [id number] CHIEF COMPLAINT/REASON FOR VISIT Cold for two and a half weeks. Started with nausea, vomiting, and diarrhea yesterday. HISTORY OF PRESENT ILLNESS Priscilla is a 56-year-old female who is here today with complaints of not feeling well. She reports that for about two and a half weeks she had a cold but thought she was managing her symptoms well up until yesterday when she developed significant diarrhea, chills and vomiting. She states she had multiple diarrhea stools yesterday. She has vomited approximately two to three times in the past 24 hours.She has noticed some nausea as well some crampy abdominal pain often associated with the diarrhea orthe vomiting. She has noted a low grade fever. She denies any known exposures to illness. She has not noticed any blood in her stool or any foodborne illness exposure either. Priscilla is concerned because she will be flying to [facility]. tomorrow and she is concerned about managing her symptoms during travel. She denies any persistent abdominal pain. She has had no urinary discomfort. CURRENT MEDICATIONS Reviewed. New prescription today is Zofran 8 mg tablet one up to three times a day as needed for nausea. ALLERGIES 1. Hot Wasp. 2. Daptacel. PAST MEDICAL/SURGICAL HISTORY Reviewed and unchanged. Please see EMR. VITAL SIGNS Temperature 37.8. Pulse 83. Respirations 18. Blood pressure 92/64. Oxygen saturation is 96% on room air. PHYSICAL EXAMINATION GENERAL: Priscilla is alert and oriented x3. She appears pale. HEENT: Head is normocephalic, atraumatic. Oral mucosa is moist. Oropharynx is without erythema, exudate or swelling. HEART: Heart rate is regular. S1, S2 is present. No murmur or rub. LUNGS: Clear to auscultation. ABDOMEN: Soft, nondistended. Bowel sounds are present x4 and hyperactive. No tenderness is noted with palpation. No CVA. IMPRESSION/REPORT/PLAN Gastroenteritis. PLAN I discussed the different evaluation options with Priscilla. At this time she would like to proceed with symptomatic treatment. A prescription for Zofran was written. She may take one tablet every eight hours as needed for nausea. We discussed that Imodium would help her symptoms although if there is some type of viral or bacterial origin to the diarrhea we would not want to stop this up, but in light of her having to travel this may be a reasonable option. She was encouraged to increase her fluids and follow a liquid diet and gradually increase this as her symptoms improve. We discussed that if she were to develop any significant fever that is not resolving, blood in her stool, persistent abdominalpain, or lack of improvement in her symptoms this would require follow- up. Priscilla's questions have been addressed and she is agreeable to this plan of care. Patient Education Ready to learn No apparent learning barriers were identified Learning preferences include listening Explained diagnosis and treatment plan Patient/Child/Caregiver expressed understanding of the content Brooks [place]/silvio Electronically Signed By: ARA WINSLOW SUBSURFACE AUGMENTEE OPERATOR On: 02/11/2012 01:41 PM Source: [facility] MHSDOLBEYNONRADSYS Document Id: [id number] RCOAT SPRAYER documented in this encounter Miscellaneous Notes Miscellaneous - Ara Winslow, NPhilP. - 02/11/2012 12:05 PM CST Ambulatory Patient Summary [place] [id number] [place] [address] Visit Information Name: PRISCILLA HAMPTON Current Date: 02/11/2012 12:05:33 Physicians Attending Provider: ARA WINSLOW SUBSURFACE AUGMENTEE OPERATOR Primary Care Provider: KIMBERLYN MAYER RN, INDUSTRIAL GAS FITTER HELPER Your Medications Here is a list of your medications. It is important to take your medications as directed. Use a pillbox or chart to help remind you to take your medications. Please let your doctor or nurse know if you have problems taking your medications. Medication/Strength Dose Route Frequency Indications/Special Instructions/Comments ondansetron (Zofran ODT 8 mg oral tablet, [...] (testosterone 2% transdermal cream) once a day *calcium-vitamin D (Calcium 600+D) 1200mg po daily multivitamin (Vitamin B Complex oral liquid) 5 mL Oral once a day Misc Prescription (Misc Prescription) 1 tab Oral once a day progesterone * You have let us know that you are not taking this medication as listed. Please talk with your primary care provider or the health care provider who prescribed the medication as soon as possible. Attention: If you have any medications at [...] therapy Active 12/27/10 onset date is unknown General Physical Examination [...] Upcoming Appointments Date Time Location Reason Provider 02/14/2012 15:00 [facility] FU ON FLU Binta Sahu MD Your Goals/Additional instructions: Source: [facility] POWERCHART Document Id: [id number] RCOAT SPRAYER Miscellaneous - Ara Winslow NPhilP. - 02/11/2012 12:05 PM CST Ambulatory Depart Summary [address] [address] Visit Information Name: PRISCILLA HAMPTON Visit Date: 02/11/2012 12:05:32 Attending Provider: ARA WINSLOW SUBSURFACE AUGMENTEE OPERATOR Primary Care Provider: KIMBERLYN MAYER RN, INDUSTRIAL GAS FITTER HELPER PRISCILLA HAMPTON has been given the following list of medications: Your Medications It is important to take your medications as directed. Use a pill box or chart to help remind you to take your medications. Please let your doctor or nurse know if you have problems taking your medications. Medication/Strength Dose Route Frequency Indications/Special Instructions/Comments ondansetron (Zofran ODT 8 mg oral tablet, [...] (testosterone 2% transdermal cream) once a day *calcium-vitamin D (Calcium 600+D) 1200mg po daily multivitamin (Vitamin B Complex oral liquid) 5 mL Oral once a day Misc Prescription (Misc Prescription) 1 tab Oral once a day progesterone * You have let us know that you are not taking this medication as listed. Please talk with your primary care provider or the health care provider who prescribed the medication as soon as possible. Attention: If you have any medications at home that are not on this list, DO NOT take them until youcontact your provider for clarification. Additional Information: Source: [facility] POWERCHART Document Id: [id number] RCOAT SPRAYER Miscellaneous - Siena Snowden L.P.NPhil - 02/11/2012 10:55 AM CST Adult Workforce Specialist Intake/History Adult Workforce Specialist Intake/History Entered On: 02/11/2012 11:01 UNDERCOAT SPRAYER Performed On: 02/11/2012 10:55 UNDERCOAT SPRAYER by SIENA SNOWDEN LPN Intake Chief Complaint : cold 2 and a half weeks, diarrhea started yesterday, nausea,stomach cramps eats,chills ,chronic cough from this cold, terrible HE when coughs Temperature Core : 37.8C(Converted to: 100.0DegF) Peripheral Pulse Rate : 83/min Respiratory Rate : 18/min Heart Rhythm : Regular Systolic Blood Pressure : 92mmHg Diastolic Blood Pressure : 64mmHg NIBP Mean : 73mmHg BP Location : Left upper extremity Blood Pressure Cuff Size : Regular SpO2 : 96% Oxygen Therapy : Room air Actual Weight : 67.2kg(Converted to: 148lb 2oz) Weight Source : Standing scale Dosing Weight Clinic : 67.20kg SIENA SNOWDEN LPN - 02/11/2012 10:55 UNDERCOAT SPRAYER Subjective Pain Symptoms : Yes SIENA SNOWDEN LPN - 02/11/2012 10:55 UNDERCOAT SPRAYER Pain Pain Assessment Grid Pain 1 Pain 2 Pain 3 Location : Abdomen (Comment: cramps whem eats, [SIENA SNOWDEN LPN - 02/11/2012 10:55 UNDERCOAT SPRAYER] ) Head(Comment: when coughs [SIENA SNOWDEN LPN - 02/11/2012 10:55 UNDERCOAT SPRAYER] ) Other: body aches Intensity : 2 4 5 BETH SNOWDENSAKSHI Augustine [facility] - 02/11/2012 10:55 UNDERCOAT SPRAYER SIENA SNOWDEN [facility] - 02/11/2012 10:55 UNDERCOAT SPRAYER SIENA SNOWDEN [facility] - 02/11/2012 10:55 UNDERCOAT SPRAYER Dependent Habits Tobacco Use/Currently Using : No Smoking Status : Former smoker BETH SNOWDENSAKSHI Augustine [facility] - 02/11/2012 10:55 UNDERCOAT SPRAYER Tobacco Use Grid Type : Cigarettes Last Use : age 32 BETH SNOWDENSAKSHI Augustine [facility] - 02/11/2012 10:55 UNDERCOAT SPRAYER Alcohol Use : Yes SIENA SNOWDEN Fawn [facility] - 02/11/2012 10:55 UNDERCOAT SPRAYER Caffeine Use Grid Caffeine Use : Current Type : Coffee Frequency : Daily BETH SNOWDENSAKSHI Augustine [facility] - 02/11/2012 10:55 UNDERCOAT SPRAYER Recreational Drug Use Grid Drug Use : None SIENA SNOWDEN [facility] - 02/11/2012 10:55 UNDERCOAT SPRAYER Allergy Allergies (Active) Daptacel (DTaP) Estimated Onset Date: Unspecified ; Created By: HARMEET LOPEZ LPN; Reaction Status: Active ; Category: Drug ; Substance: Daptacel (DTaP) ; Type: Allergy ; Updated By: HARMEET LOPEZ LPN; Reviewed Date: 02/11/2012 10:53 UNDERCOAT SPRAYER WASP/HORNET VENUM Estimated Onset Date: Unspecified ; Created By: CONSTANCE NAJERA RN; Reaction Status: Active ; Category: Drug ; Substance: WASP/HORNET VENUM ; Type: Allergy ; Severity: Severe ; Updated By: CONSTANCE NAJERA RN; Reviewed Date: 02/11/2012 10:53 UNDERCOAT SPRAYER Source: [facility] POWERCHART Document Id: [id number] RCOAT SPRAYER documented in this encounter Plan of Treatment Upcoming Encounters Date Type Specialty Care Team Description 02/02/2022 Immunization Family Medicine 02/12/2022 Office Visit Dermatology Lacy Dykes M.D. [address] [place] [phone] (Wo rk) 02/22/2022 Office Visit Orthopedic Surgery Kimberlyn Mayer APRN C.N.P., D.N.P. [address] [place], [place] [phone] (Wo rk) 03/12/2022 Diagnostic Otorhinolaryngology Blanka Carranza C.N.P. [address] [place] [address] Aleena Hassan Au.D. [address] [place] [phone] documented as of this encounter Visit Diagnoses Not on filedocumented in this encounter Additional Health Concerns Assessment Noted Time PHQ-9 Depression Total Score: 1 06/11/2011 8:31 AM UNDERCOAT SPRAYER documented as of this encounter
--- OUTSIDE RECORDS SUMMARY | 2022-01-31 09:43 | XMS_ITS | Encounter Summary ---
:1955 Author Organization [facility] Address [address] [place] [address] Care Team Providers Name Role Phone Unavailable Primary Care Provider Unavailable Encounter Details Date Type Department Care Team Description 10/13/2009 Hospital Encounter HX [facility] Madison Stanton M.D. [address] [place] [phone] (Wo rk) Social History Tobacco [...] you attend baptism or Patient refused 2021 shinto services? 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 - 10/13/2009 12:00 AM CDT [id number] Message from [employer]: Priscilla Fitzpatrick would like a refill of the following medications: SYNTHROID 175 MCG OR TABS [Lynn Caceres MD] Preferred pharmacy: [facility] Comment: I will try and schedule my yearly physical soon but this script runs out in two weeks [facility] Document Id: [id number] Electronically signed by Conversion, [facility] Billing Specialist [id number] at 09/08/2016 9:12 AM CDT Telephone Encounter - Carol Robertson R.N. - 10/13/2009 12:00 AM CDT [id number] Last visit: BP Readings from Last 1 Encounters: 10/14/2008 138/76 TSH <0.03 07/10/2007 Unable to approve medication per the RN refill protocol due to: - Provider not in refill pool Patient has future appointment scheduled on:10/14/2009 w/ prescribing provider. [facility] Document Id: [id number] Electronically signed by Conversion, [facility] Billing Specialist [id number] at 09/08/2016 9:12 AM CDT documented in this encounter Plan of Treatment Upcoming Encounters Date Type Specialty Care Team Description 02/02/2022 Immunization Family Medicine 02/12/2022 Office Visit Dermatology Lacy Dykes M.D. [address] [place] [phone] (Wo rk) 02/22/2022 Office Visit Orthopedic Surgery Kimberlyn Alvarez APRN C.N.P., D.N.P. [address] [place], [place] [phone] (Wo rk) 03/12/2022 Diagnostic Otorhinolaryngology Blanka Carranza, C.N.P. [address] [place], [place] [phone] Aleena Hassan Au.D. [address] [place] [phone] documented as of this encounter Visit Diagnoses Not on filedocumented in this encounter
--- OUTSIDE RECORDS SUMMARY | 2022-01-31 09:43 | XMS_ITS | Encounter Summary ---
:[address] [facility] Address [address] [place] [address] Care Team Providers Name Role Phone Unavailable Primary Care Provider Unavailable Encounter Details Date Type Department Care Team Description 03/20/[address] [facility] Kimberlyn Alvarez, JOSE DANIEL, C.N.P., D. N.P. [address] [place] [phone] (Wo rk) Social History Tobacco [...] you attend zoroastrian or Patient refused 2021 alevism services? 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 [address] [place], [place] [phone] (Wo rk) 02/22/2022 Office Visit Orthopedic Surgery Kimberlyn Alvarez, JOSE DANIEL, C.N.P., D.N.P. [address] [place], [place] [phone] (Wo rk) 03/12/2022 Diagnostic Otorhinolaryngology Blanka Carranza, C.N.P. [address] [place] [address] Aleena Hassan Au.D. [address] [place] [phone] documented as of this encounter Visit Diagnoses Not on filedocumented in this encounter Additional Health Concerns Assessment Noted Time PHQ-9 Depression Total Score: 1 06/11/2011 8:31 AM MANAGER EXCHANGE documented as of this encounter
--- OUTSIDE RECORDS SUMMARY | 2022-01-31 09:43 | XMS_ITS | Encounter Summary ---
:1955 Author Organization [facility] Address [address] [place] [address] Care Team Providers Name Role Phone Unavailable Primary Care Provider Unavailable Encounter Details Date Type Department Care Team Description 04/29/2011 Hospital Encounter HX NO MAPPING Dilma Harris, PreetiPPhilMPhil [address] [place] [phone] (Wo rk) Social History Tobacco Use Types Packs/Day Years Used Date Smoking Tobacco: Never Assessed Alcohol Habits Answer Date Recorded How often do you have a drink containing 4 or more times a w apache 07/30/2021 alcohol? How many drinks containing [...] you attend jewish or Patient refused 2021 bahai services? Do [...] at Date Recorded Female 05/19/2017 11:19 AM TRAINING INSTRUCTOR documented as of this encounter Last Filed Vital Signs Vital Sign Reading Time Taken Comments Blood Pressure 118/80 04/29/2011 9:29 AM TRAINING INSTRUCTOR Pulse - - Temperature - - Respiratory Rate - - Oxygen Saturation - - Inhaled Oxygen Concentration - - Weight - - Height - - Body Mass Index - - documented in this encounter Consult Notes Dilma Harris D.P.M. - 04/29/2011 12:00 AM CST ORTHOCONOS IMPRESSION/REPORT/PLAN Right residual plantar fascitis. PLAN: Recommended repeat injection. Patient in agreement with this. Therefore, informed consent was signed and 3 cubic centimeters of a 1:1:1 mix of 1% Xylocaine plain, dexamethasone phosphate, and Kenalog 40 was infiltrated along the plantar fascial insertion area. The patient tolerated the procedure well and was instructed to follow-up if she continues to have problems in another month or two and also especially if she desires to schedule surgery if this does not adequately reduce her pain. Also, if she should begin an exercise routine or training for a race, to utilize 800 milligrams of ibuprofen three times daily to help minimize inflammation and recurrence. Patient understanding and happy with this plan. Follow-up again on an as needed basis. CHIEF COMPLAINT/REASON FOR VISIT Patient seen for follow-up of bilateral heel pain. HISTORY OF PRESENT ILLNESS She had previous injections back in December. She states that the left is doing quite well, but the right still has some residual heel pain. She states the pain that radiates along the plantar fascial band into the arch is resolved. She is quite active with exercising and is also talking about running a race this summer so hoping to get things under control before that occurs. She also had several questions about potential surgical intervention which we addressed today. Discussion of the procedure itself expected postoperative recovery course including about 4-6 weeks for adequate healing time. Also, no guarantees could be made regarding the complete resolution of her pain with this type of surgery. Patient is understanding of that. PHYSICAL EXAM Neurovascular status intact to the right foot. Right plantar fascial band is quite tight. She has pain to palpation of the medial plantar calcaneal tubercle. No erythema, edema, ecchymosis, or signs of acute process and no pain on medial to lateral compression. Dilma Harris D.P.M. /fatmata CC: Kimberlyn Alvarez N.P. Electronically Signed By: DILMA HARRIS DPFawn On: 05/09/2011 03:50 PM Source: [facility] MHSDOLCELIYNCHRISTIANO Document Id: [id number] NING INSTRUCTOR documented in this encounter Miscellaneous Notes Miscellaneous - Conversion, Historical Provider Ser - 04/29/2011 9:29 AM TRAINING INSTRUCTOR Adult Dialysis Technician Intake/History Adult Dialysis Technician Intake/History Entered On: 04/29/2011 9:33 TRAINING INSTRUCTOR Performed On: 04/29/2011 9:29 TRAINING INSTRUCTOR by CONSTANCE NAJERA lighting specialist Chief Complaint : follow up from 12/31/2010 bilat foot injections. Pt states injections were effective. Pt states the pain has returned after 2 months and is now more located in the heel area in the right foot. Left foot is pain free. Temperature Core : 37.8C(Converted to: 100.0DegF) Systolic Blood Pressure : 118mmHg Diastolic Blood Pressure : 80mmHg NIBP Mean : 93mmHg BP Location : Left upper extremity CONSTANCE NAJERA RN - 04/29/2011 9:29 TRAINING INSTRUCTOR Subjective Pain Symptoms : Yes CONSTANCE NAJERA RN - 04/29/2011 9:29 TRAINING INSTRUCTOR Pain Pain Assessment Grid Pain 1 Location : Foot CONSTANCE NAJERA RN - 04/29/2011 9:29 TRAINING INSTRUCTOR Dependent Habits Tobacco Use/Currently Using : No Smoking Status : Former smoker Alcohol Use : Yes CONSTANCE NAJERA RN - 04/29/2011 9:29 TRAINING INSTRUCTOR Caffeine Use Grid Caffeine Use : Current Type : Coffee Frequency : Daily CONSTANCE NAJERA RN - 04/29/2011 9:29 TRAINING INSTRUCTOR Allergy Allergies (Active) Daptacel (DTaP) Estimated Onset Date: Unspecified ; Created By: HARMEET LOPEZ LPN; Reaction Status: Active ; Category: Drug ; Substance: Daptacel (DTaP) ; Type: Allergy ; Updated By: HARMEET LOPEZ LPN; Reviewed Date: 04/29/2011 9:24 TRAINING INSTRUCTOR WASP/HORNET VENUM Estimated Onset Date: Unspecified ; Created By: CONSTANCE NAJERA RN; Reaction Status: Active ; Category: Drug ; Substance: WASP/HORNET VENUM ; Type: Allergy ; Severity: Severe ; Updated By: CONSTANCE NAJERA RN; Reviewed Date: 04/29/2011 9:24 TRAINING INSTRUCTOR Source: [facility] [employer] Document Id: [id number] TRAINING INSTRUCTOR!23 documented in this encounter Plan of Treatment Upcoming Encounters Date Type Specialty Care Team Description 02/02/2022 Immunization Family Medicine 02/12/2022 Office Visit Dermatology Lacy Dykes M.D. [address] [place], [place] [phone] (Wo rk) 02/22/2022 Office Visit Orthopedic Surgery Kimberlyn Alvarez APRN, C.N.P., D.N.P. [address] [place], [place] [phone] (Wo rk) 03/12/2022 Diagnostic Otorhinolaryngology Blanka Carranza, C.N.P. [address] [place] [address] Aleena Hassan Au.D. [address] [place] [phone] documented as of this encounter Visit Diagnoses Not on filedocumented in this encounter
--- OUTSIDE RECORDS SUMMARY | 2022-01-31 09:43 | XMS_ITS | Encounter Summary ---
:1955 Author Organization [facility] Address [address] [place] [address] Care Team Providers Name Role Phone Unavailable Primary Care Provider Unavailable Encounter Details Date Type Department Care Team Description 07/03/2011 Hospital Encounter HX NO MAPPING Jose Pappas am, M.D. [address] [place] [phone] (Wo rk) Social History Tobacco [...] you attend orthodox or Patient refused 2021 restoration services? Do [...] Date Recorded Female 05/19/2017 11:19 AM SOFTWARE TOOLS ENGINEER documented as of this encounter Plan of Treatment Upcoming Encounters Date Type Specialty Care Team Description 02/02/2022 Immunization Family Medicine 02/12/2022 Office Visit Dermatology Lacy Dykes M.D. [address] [place], [place] [phone] (Wo rk) 02/22/2022 Office Visit Orthopedic Surgery Kimberlyn Alvarez APRN, C.N.P., D.N.P. [address] [place], [place] [phone] (Wo rk) 03/12/2022 Diagnostic Otorhinolaryngology Blanka Carranza, C.N.P. [address] [place], [place] [phone] Aleena Hassan Au.D. [address] [place] [phone] documented as of this encounter Visit Diagnoses Not on filedocumented in this encounter Additional Health Concerns Assessment Noted Time PHQ-9 Depression Total Score: 1 06/11/2011 8:31 AM SOFTWARE TOOLS ENGINEER documented as of this encounter
--- OUTSIDE RECORDS SUMMARY | 2022-01-31 09:43 | XMS_ITS | Encounter Summary ---
:1955 Author Organization [facility] Address [address] [place] [address] Care Team Providers Name Role Phone Unavailable Primary Care Provider Unavailable Encounter Details Date Type Department Care Team Description 07/04/2011 Hospital Encounter HX [facility] Kimberlyn Alvraez, Vivien THOMSON, C.N.P., D.N.P. [address] [place], [place] [phone] (Wo rk) Social History Tobacco Use Types Packs/Day Years Used Date Smoking Tobacco: Never Assessed Alcohol Habits Answer Date Recorded How often do you have a drink containing 4 or more times a w [place] 07/30/2021 alcohol? How many drinks containing alcohol [...] you attend muslim or Patient refused 2021 gnosticist services? 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 - 07/04/2011 12:00 AM CDT 1ECG STRESS TEST NOTE 1) Negative stress electrocardiogram. I was present during the stress echocardiography performed today. I have monitored the electrocardiographic findings. Patient started with systolic blood pressure of 132/82 and a heart rate of 64. She exercised in a Stage V over the Rufus protocol for a total of 12-minutes and 33-seconds. Peak blood pressure was 190/78 with a peak heart rate of 158 (Target heart rate 145). Patient reported no chest pain. The study was terminated due to dyspnea. Rest electrocardiogram shows in my interpretation, sinus bradycardia with a rate of 49 beats per minute. Left atrial enlargement is present. AV conduction and QRS duration are within normal limits. Early repolarization pattern is present without evidence of repolarization abnormalities. With the stress there were no significant ST segment deviations (Less than [address] segment depression, upsloping). The stress test is negative for ischemia. The imaging report will follow. Vishnu Bonilla M.D. /ritu Electronically Signed By: VISHNU BONILLA MD On: 07/25/2011 10:22 AM Modified by and Electronically Signed by: VISHNU BONILLA MD On: 07/25/2011 10:22 AM Source: [facility] MHSDOLBEYNONRADSYS Document Id: [id number] documented in this encounter Plan of Treatment Upcoming Encounters Date Type Specialty Care Team Description 02/02/2022 Immunization Family Medicine 02/12/2022 Office Visit Dermatology Lacy Dykes M.D. [address] [place], [place] [phone] (Wo rk) 02/22/2022 Office Visit Orthopedic Surgery Kimberlyn Alvarez, JOSE DANIEL, C.N.P., D.N.P. [address] [place], [place] [phone] (Wo rk) 03/12/2022 Diagnostic Otorhinolaryngology Blanka Carranza, C.N.P. [address] [place], [place] [id number] Aleena Hassan Au.D. 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
--- OUTSIDE RECORDS SUMMARY | 2022-01-31 09:43 | XMS_ITS | Encounter Summary ---
:1955 Author Organization [facility] Address [address] [place] [address] Care Team Providers Name Role Phone Unavailable Primary Care Provider Unavailable Encounter Details Date Type Department Care Team Description 07/22/2011 Hospital Encounter [facility] [place] Jojo Hua M.D. [address] [place] [phone] (Wo rk) Social History Tobacco Use Types Packs/Day Years Used Date Smoking Tobacco: Never Assessed Alcohol Habits Answer Date Recorded How often do you have a drink containing 4 or more times a w [place] 07/30/2021 alcohol? How many drinks containing alcohol [...] you attend hoahaoism or Patient refused 2021 muslim services? 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 - 07/22/2011 12:00 AM CDT [id number] IMPRESSION/REPORT/PLAN Severe gastroenteritis, most likely infectious diarrhea. PLAN Considering the patient has blood in the stool, I started the patient on Cipro 500 mg twice a day for 7-10 days. I advised her to drink Gatorade, Powerade, or U2 electrolyte fluids. The patient is able to tolerate orally. Her symptoms of vomiting have stopped. The patient is recommended that she should use a lot of electrolyte fluids. She should take [id number] Tylenol, Imodium if needed for severe diarrhea, and start taking Cipro. The prescription is called to the local pharmacy, 500 mg twice a day for 7-10 days. If not significantly improved in one week or earlier or if it gets worse she should follow-up in the clinic. MARGIN CODE A total of 25 minutes was spent with most of the time in [id number] consultation. The patient will bring a stool culture sample. The results are pending. CHIEF COMPLAINT/REASON FOR VISIT The patient is a 55-year-old female who presented to the clinic with complaints of diarrhea going on for the last one week. He said it started Jenifer when she started having some chills, episodes of vomiting, and then the diarrhea continued. She had about 5-10 loose stools a day. She also noticed some blood in the stool lately. She said the blood was almost on the side of the stool and kind of streaks of blood. She has a significant amount of abdominal cramping. She said this started when she was going to travel from [place], and before she took the plane ride she started having chills. Then she started getting sick. Even on the airplane she had to use three or four blankets. She also started having muscle aches and headaches and a lot of GI upset symptoms. She had a significant amount of nausea and vomiting, and the diarrhea continued for the last one week. PAST MEDICAL/SURGICAL HISTORY Fairly unremarkable. History of insomnia, osteopenia, plantar/heel pain, history of supraventricular tachycardia, thyroid nodule. CURRENT MEDICATIONS Medication list is reviewed and reconciled. ALLERGIES Wasp and hornet or to any venom. VITAL SIGNS Reviewed. Blood pressure is 126/70. Oxygen saturations are 96%. PHYSICAL EXAMINATION GENERAL: Patient in no acute distress. SKIN: Skin turgor is average. Mucous membranes are minimally dry. HEENT: Head and neck, eye, ear, nose, and throat exam is fairly unremarkable otherwise. NECK: Supple. ABDOMEN: Minimal bowel sounds are noticed. No guarding. No point tenderness. Kena Hua M.D. / Electronically Signed By: KENA HUA MD On: 07/25/2011 07:40 AM [facility] Document Id: [id number] documented in this encounter Miscellaneous Notes Miscellaneous - Kena Hua M.D. - 07/26/2011 1:14 PM CDT Results Notification From: KENA HUA MD To: LAURA LANDIN RADHA Sent: 07/26/2011 13:14:30 CDT ! Show up: 07/26/2011 18:14:30 [facility] Subject: Results Notification Actions: Note to Nurse Source: [facility] POWERCHART Document Id: [id number] Electronically signed by Jennifer, [facility] Visitor Information Assistant [id number] at 09/08/2016 8:31 AM CDT Miscellaneous - Kena Hua M.D. - 07/24/2011 7:53 AM CDT Results Notification Document Contains Addenda Addendum by TIERA GUZMAN on 24 July 2011 10:52:18 CDT From: TIERA GUZMAN To: KENA HUA MD; Sent: 07/24/2011 10:52:18 CDT Show up: 07/24/2011 10:51:00 CDT Subject: RE: Results Notification Addendum by TIERA GUZMAN on 24 July 2011 10:51:49 CDT patient is still having the diarrhea and little energy because of it. the stomach has settled down slightly since starting the cipro on friday. she is not eating much keeping to toast and hard boiled eggs she is going to try adding soup to her diet today. she has not used any immodium for the diarrhea. is this something she can use while being on the cipro? she tried some kapectat last week with [facility]. she can be reached at [phone] ok to leave a message on this phone. Addendum by TIERA GUZMAN on 24 July 2011 10:31:02 CDT left message regarding below. From: KENA HUA MD To: LAURA LANDIN LPN Sent: 07/24/2011 07:53:38 CDT ! Show up: 07/24/2011 12:53:38 [facility] Subject: Results Notification Actions: Notify patient of results Source: [facility] POWERCHART Document Id: [id number] Electronically signed by Jennifer [facility] Visitor Information Assistant [id number] at 09/08/2016 8:31 AM CDT Miscellaneous - Kena Hua M.D. - 07/23/2011 6:51 AM CDT Results Notification Document Contains Addenda Addendum by OBED PEREIRA LPN on 23 July 2011 10:54:59 CDT From: OBED PEREIRA LPN To: KENA HUA MD; Sent: 07/23/2011 10:54:59 CDT Show up: 07/23/2011 10:54:00 CDT Subject: RE: Results Notification patient aware and will await culture report. Feeling somewhat better, still having loose stools From: KENA HUA MD To: AZALIA PUTNAM RN Sent: 07/23/2011 06:51:49 CDT ! Show up: 07/23/2011 11:51:49 [facility] Subject: Results Notification Actions: Notify patient of results Source: [facility] G5CHART Document Id: [id number] Electronically signed by Jennifer [facility] Visitor Information Assistant [id number] at 09/08/2016 8:31 AM CDT Miscellaneous - Kena Hua M.D. - 07/22/2011 7:51 AM CDT Ambulatory Depart Summary [id number] [place] [address] Visit Information Name: PRISCILLA HAMPTON Visit Date: 07/22/2011 07:51:04 Attending Provider: KENA HUA MD Primary Care Provider: KIMBERLYN MAYER RN, CAR FRAMER PRISCILLA HAMPTON has been given the following list of medications: Your Medications It is important to take your medications as directed. Use a pill box or chart to help remind you to take your medications. Please let your doctor or nurse know if you have problems taking your medications. Medication/Strength Dose Route Frequency Indications/Special Instructions/Comments ciprofloxacin (Cipro 500 mg oral tablet) 500 mg Oral two times a day for 10 Days epinephrine (EpiPen Auto-Injector 0.3 mg injectable kit) [...] your provider for clarification. Additional Information: Source: [facility] POWERCHART Document Id: [id number] Miscellaneous - Kena Hua M.D. - 07/22/2011 7:51 AM CDT Ambulatory Patient Summary [id number] [place] [address] Visit Information Name: PRISCILLA HAMPTON Current Date: 07/22/2011 07:51:05 Physicians Attending Provider: KENA HUA MD Primary Care Provider: KIMBERLYN MAYER RN, CAR FRAMER Your Medications Here is a list of your medications. It is important to take your medications as directed. Use a pillbox or chart to help remind you to take your medications. Please let your doctor or nurse know if you have problems taking your medications. Medication/Strength Dose Route Frequency Indications/Special Instructions/Comments ciprofloxacin (Cipro 500 mg oral tablet) 500 mg Oral two times a day for 10 Days epinephrine (EpiPen Auto-Injector 0.3 mg injectable kit) [...] unknown Dysthymic Disorder Active 04/07/2010 Osteopenia Active date unknown Colon, polyp, benign Active date unknown Your Upcoming Appointments Date Time Location Reason Provider No Appointments found Your Goals/Additional instructions: Source: [employer] Document Id: [id number] Miscellaneous - Siena Snowden L.P.N. - 07/22/2011 7:28 AM CDT Health Assessment Health Assessment Entered On: 07/22/2011 7:28 CDT Performed On: 07/22/2011 7:28 CDT by SIENA SNOWDEN LPN Health Assessment Complete Health Assessment Complete or Modified : Annual Health Assessment Annual Health Assessment Completed : Yes SIENA SNOWDEN LPN - 07/22/2011 7:28 CDT Nutrition Nutrition Risk Factors by History Adult : None SIENA SNOWDEN LPN - 07/22/2011 7:28 CDT Functional Current Daily Living Assistance : None SIENA SNOWDEN LPN 07/22/2011 7:28 CDT Dependent Habits Tobacco Use/Currently Using : No Smoking Status : Former smoker SIENA SNOWDEN LPN - 07/22/2011 7:28 CDT Tobacco Use Grid Type : Cigarettes Last Use : age 32 SIENA SNOWDEN LPN 07/22/2011 7:28 CDT Caffeine Use Grid Caffeine Use : Current Type : Coffee Frequency : Daily SIENA SNOWDEN LPN 07/22/2011 7:28 CDT Recreational Drug Use Grid Drug Use : None SIENA SNOWDEN LPN 07/22/2011 7:28 CDT Psychosocial Domestic Abuse Concerns : None SIENA SNOWDEN LPN 07/22/2011 7:28 CDT Advance Directive Advanced Directives : Yes SIENA SNOWDEN LPN 07/22/2011 7:28 CDT Educ Needs Learning Style Preference Adult Grid Patient : None Family : None SIENA SNOWDEN LPN 07/22/2011 7:28 CDT Source: [facility] POWERCHART Document Id: [id number] CDT!31 Miscellaneous - Siena Snowden L.P.N. - 07/22/2011 7:24 AM CDT Adult Regional Agronomist Intake/History Adult Regional Agronomist Intake/History Entered On: 07/22/2011 7:27 CDT Performed On: 07/22/2011 7:24 CDT by SIENA SNOWDEN LPN Intake Chief Complaint : emesis, diarrhea, blood in stool, elevated temp. stomach pains before Onset of Symptoms : last week Temperature Core : 36C(Converted to: 96.8DegF) (LOW) Peripheral Pulse Rate : 61/min Respiratory Rate : 18/min Heart Rhythm : Regular Systolic Blood Pressure : 126mmHg Diastolic Blood Pressure : 70mmHg NIBP Mean : 89mmHg BP Location : Right upper extremity Blood Pressure Cuff Size : Regular SpO2 : 96% Oxygen Therapy : Room air Actual Weight : 64.3kg(Converted to: 141lb 12oz) Weight Source : Standing scale Dosing Weight Clinic : 64.30kg SIENA SNOWDEN LPN - 07/22/2011 7:24 CDT Subjective Pain Symptoms : Yes SIENA SNOWDEN LPN - 07/22/2011 7:24 CDT Pain Pain Assessment Grid Pain 1 Pain 2 Location : Abdomen (Comment: stomach [SIENA SNOWDEN LPN - 07/22/2011 7:24 CDT] ) Head Intensity : 6 3 SIENA SNOWDEN LPN - 07/22/2011 7:24 CDT SIENA SNOWDEN LPN - 07/22/2011 7:24 CDT Dependent Habits Tobacco Use/Currently Using : No Smoking Status : Former smoker SIENA SNOWDEN LPN 07/22/2011 7:24 CDT Tobacco Use Grid Type : Cigarettes Last Use : age 32 SIENA SNOWDEN LPN - 07/22/2011 7:24 CDT Alcohol Use : Yes SIENA SNOWDEN LPN 07/22/2011 7:24 CDT Caffeine Use Grid Caffeine Use : Current Type : Coffee Frequency : Daily SIENA SNOWDEN LPN - 07/22/2011 7:24 CDT Recreational Drug Use Grid Drug Use : None SIENA SNOWDEN LPN - 07/22/2011 7:24 CDT Allergy Allergies (Active) Daptacel (DTaP) Estimated Onset Date: Unspecified ; Created By: HARMEET LOPEZ LPN; Reaction Status: Active ; Category: Drug ; Substance: Daptacel (DTaP) ; Type: Allergy ; Updated By: HARMEET LOPEZ LPN; Reviewed Date: 07/22/2011 7:23 CDT WASP/HORNET VENUM Estimated Onset Date: Unspecified ; Created By: CONSTANCE NAJERA RN; Reaction Status: Active ; Category: Drug ; Substance: WASP/HORNET VENUM ; Type: Allergy ; Severity: Severe ; Updated By: CONSTANCE NAJERA RN; Reviewed Date: 07/22/2011 7:23 CDT [facility] Document Id: [id number] CDT!44 documented in this encounter Plan of Treatment Upcoming Encounters Date Type Specialty Care Team Description 02/02/2022 Immunization Family Medicine 02/12/2022 Office Visit Dermatology Lacy Dykes M.D. [address] [place], [place] [phone] (Wo rk) 02/22/2022 Office Visit Orthopedic Surgery Kimberlyn Mayer APRN, C.N.P., D.N.P. [address] [place], [place] [phone] (Wo rk) 03/12/2022 Diagnostic Otorhinolaryngology Blanka Carranza, C.N.P. [address] [place], [place] [id number] Aleena Hassan Au.D. [address] [place] [phone] documented as of this encounter Procedures Procedure Name Priority Date/Time Associated Comments Diagnosis HXMANUAL DIFFERENTIAL Routine 07/22/2011 11:55 Re sults for this AM CDT procedure are i n the results section. CBC WITH DIFFERENTIAL, Routine 07/22/2011 11:55 R esults for this B AM CDT procedure are i n the results section. COMPREHENSIVE Routine 07/22/2011 11:55 Results fo r this METABOLIC PANEL, S/P AM CDT procedu re are in the results section. ENTERIC PATH RSLT Routine 07/22/2011 8:00 AM Resu lts for this CDT procedure are i n the results section. C DIFF SRCE Routine 07/22/2011 8:00 AM Results f or this CDT procedure are i n the results section. C. DIFFICILE TOXIN, F Routine 07/22/2011 8:00 AM Results for this CDT procedure are i n the results section. documented in this encounter Results HXMANUAL DIFFERENTIAL (07/22/2011 11:55 AM CDT) Patholo gist Method Time Signature Absolute 57 42 - 77 POWERCHART Neutrophil Count HX Lymph Manual 33 23 - 44 POWERCHART Monocytes 5 0 - 11 POWERCHART HX Eos Manual 5 1 - 5 POWERCHART HXAtypical Present POWERCHART Lymphocytes RBC Morphology Unremarkabl POWERCHART e. Specimen Anatomical Collection Method Collection Time Receive d Time (Source) Location / / Volume Laterality Blood 07/22/2011 11:55 07/22/2011 AM CDT 11:55 AM CDT Kena Hua M.D. LAB HISTORICAL ORDERS Performing Organization Address City/State/ZIP Code Phon e Number POWERCHART CBC with Differential (07/22/2011 11:55 AM CDT) P athologist Signature Leukocytes 7.1 4.8 - 10.8 POWERCHART X109L Erythrocytes 4.47 4.20 - POWERCHART 5.40 X109L Hemoglobin 14.8 12.0 - POWERCHART 15.5 GDL Hematocrit 41.4 37.0 - POWERCHART 47.0 MCV 93 81 - 99 FL POWERCHART HX RDW 12.5 11.5 - POWERCHART 14.5 Platelet Count 262 150 - 450 POWERCHART X109L HXDifferential? Manual POWERCHART Specimen (Source) Anatomical Collection Method Collection Time Re ceived Time Location / / Volume Laterality Blood 07/22/2011 11:55 AM CDT Kena Hua M.D. LAB BLOOD ADD-ON Performing Organization Address City/State/ZIP Code Phon e Number POWERCHART (ABNORMAL) CMP (Comprehensive Metabolic Panel) (07/22/2011 11:55 AM CDT) [facility] Method Time Signature Alanine 14 (L) 15 - 37 POWERCHART Amniotransferase, LD UL Albumin, S 3.9 3.5 - 5.0 POWERCHART GDL Alkaline 61 41 - 108 POWERCHART Phosphatase, S UL Aspartate 17 12 - 31 POWERCHART Aminotransferase UL (AST), S Sodium, S 135.3 135.0 - POWERCHART 145.0 MML Potassium, S 3.8 3.6 - 4.8 POWERCHART MML Chloride, S 104 100 - 108 POWERCHART MML CO2 Total 27.1 23.0 - POWERCHART 29.0 MMOLL BUN (Blood Urea 6 (L) 7 - 18 POWERCHART Nitrogen), S MGDL Creatinine 0.84 0.60 - POWERCHART 1.30 MGDL Calcium, Total, S 9.0 8.5 - POWERCHART 10.1 MGDL BUN/Creatinine Ratio 7.0 (L) 10.0 - POWERCHAR T 20.0 Anion Gap 4 (L) 10 - 20 POWERCHART MMOLL HXeGFR (MDRD) >60 (H) <=61 POWERCHART [id number] Comment: A GFR of <60 mL/min is indicative of chr onic kidney disease. (MDRD calculation valid on patients 18 - 70 years.) eGFR Black/ >60 MLMIN PO WERCHART Bilirubin, Total, S 0.3 0.1 - 1.0 MGDL POWER CHART Total Protein, S 6.8 6.3 - 7.9 GDL POWERCHAR T Glucose 84 70 - 139 MGDL POWERCHART Specimen (Source) Anatomical Collection Method Collection Time Re ceived Time Location / / Volume Laterality Blood 07/22/2011 11:55 AM CDT Kena Hua M.D. LAB BLOOD ADD-ON Performing Organization Address City/State/ZIP Code Phon e Number POWERCHART HX-Enteric Path Rslt (07/22/2011 8:00 AM CDT) Patholo gist Method Time Signature Enteric See Comment POWERCHART Pathogens Culture, Stool Specimen (Source) Anatomical Collection Method Collection Time Re ceived Time Location / / Volume Laterality 07/22/2011 8:00 AM CDT Narrative POWERCHART - 07/25/2011 3:05 PM CDT SOURCE: STOOL ENTERIC PATHOGENS CULTURE, STOOL ? FINAL CAMPYLOBACTER JEJUNI Semi-Urgent Result. Test Performed by: [facility] Dpt of Lab Med and Pathology [address] [place] [address] Anvil Worker: Sky jones III, M.D. Kena Hua M.D. LAB HISTORICAL ORDERS Performing Organization Address [facility] Phon e Number POWERCHART C. difficile Toxin, F (07/22/2011 8:00 AM CDT) athologist Signature C. difficile Negative POWERCHART Toxin, F Specimen (Source) Anatomical Collection Method Collection Time Re ceived Time Location / / Volume Laterality 07/22/2011 8:00 AM CDT Narrative POWERCHART - 07/23/2011 8:47 PM CDT Laboratory developed test. Test Performed by: [facility] Dpt of Lab Med and Pathology [address] [place] [address] Anvil Worker: Sky jones III, M.D. Kena Hua M.D. LAB MICROBIOLOGY - GENERAL O RDERABLES Performing Organization Address [facility] Phon e Number POWERCHART HX-C diff Srce (07/22/2011 8:00 AM CDT) athologist Signature HXC diff Stool [facility] Spec[facility] (Source[facility] Anatomical Collection Method Collection Time Re ceived Time Location / / Volume Laterality 07/22/2011 8:00 AM CDT Kena Hua M.D. 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
--- OUTSIDE RECORDS SUMMARY | 2022-01-31 09:43 | XMS_ITS | Encounter Summary ---
:1955 Author Organization [facility] Address [address] [place] [address] Care Team Providers Name Role Phone Unavailable Primary Care Provider Unavailable Encounter Details Date Type Department Care Team Description 02/14/2012 Hospital Encounter HX [facility] Shabnam Emery M.D . Social History Tobacco Use Types Packs/Day Years Used Date Smoking Tobacco: Never Assessed Alcohol Habits Answer Date Recorded How often do you have a drink containing 4 or more times a w [place] 07/30/2021 alcohol? How many drinks containing alcohol [...] you attend mandaen or Patient refused 2021 yazidism services? 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 - 02/19/2012 12:00 AM CST [id number] I received the preliminary results for stool cultures that shows a gram-negative bacillus which looks like Campylobacter. They will have the definitive results tomorrow, but I did call Priscilla. I left a message on her answering machine that we will be starting her back on Zithromax 500 mg a day for five days. I asked her to call me back if she has any questions or concerns about that treatment. Shabnam Emery M.D./[facility] Electronically Signed By: SHABNAM EMERY MD On: 02/19/2012 12:50 PM Source: [facility] [id number] Document Id: [id number] TOLOGIC SUPPORT SPECIALIST documented in this encounter Miscellaneous Notes Miscellaneous - Shabnam Emery M.D. - 02/28/2012 3:02 PM CST Results Notification Document Contains Addenda Addendum by LAURA LANDIN LPN on 28 February 2012 16:20:53 CRYPTOLOGIC SUPPORT SPECIALIST Pt already aware. From: SHABNAM EMERY MD To: TIERA GUZMAN Sent: 02/28/2012 15:02:00 CRYPTOLOGIC SUPPORT SPECIALIST ! Show up: 02/28/2012 21:02:00 [facility] Subject: Results Notification Actions: Notify patient of results Source: [facility] MC[employer], IncCHART Document Id: [id number] Electronically signed by Conversion, [facility] Certified Credit Counselor [id number] at 09/07/2016 6:44 PM CDT Shabnam Valdez M.D. - 02/19/2012 7:44 AM CST Results Notification Document Contains Addenda Addendum by TIERA GUZMAN on 19 February 2012 12:47:45 CRYPTOLOGIC SUPPORT SPECIALIST notified. From: SHABNAM EMERY MD To: TIERA GUZMAN Sent: 02/19/2012 07:44:28 CRYPTOLOGIC SUPPORT SPECIALIST ! Show up: 02/19/2012 13:44:28 [facility] Subject: Results Notification Actions: Notify patient of results Source: [facility] [employer]CHART Document Id: [id number] Electronically signed by Conversion, [facility] Certified Credit Counselor [id number] at 09/07/2016 6:44 PM CDT Shabnam Valdez M.D. - 02/17/2012 2:20 PM CST Results Notification Document Contains Addenda Addendum by TIERA GUZMAN on 18 February 2012 09:14:13 CRYPTOLOGIC SUPPORT SPECIALIST notified. From: SHABNAM EMERY MD To: TIERA GUZMAN Sent: 02/17/2012 14:20:29 CRYPTOLOGIC SUPPORT SPECIALIST ! Show up: 02/17/2012 20:20:29 [facility] Subject: Results Notification Actions: Notify patient of results Source: [facility] POWERCHART Document Id: [id number] Electronically signed by Conversion, [facility] Certified Credit Counselor [id number] at 09/07/2016 6:44 PM CDT documented in this encounter Plan of Treatment Upcoming Encounters Date Type Specialty Care Team Description 02/02/2022 Immunization Family Medicine 02/12/2022 Office Visit Dermatology Lacy Dykes M.D. [address] [place], [place] [phone] (Wo rk) 02/22/2022 Office Visit Orthopedic Surgery Kimberlyn Alvarez APRN, C.N.P., D.N.P. [address] [place], [place] [phone] (Wo rk) 03/12/2022 Diagnostic Otorhinolaryngology Blanka Carranza, C.N.P. [address] [place] [address] Aleena Hassan Au.D. [address] [place] [address] documented as of this encounter Procedures Procedure Name Priority Date/Time Associated Comments Diagnosis GIARDIA AG STL Routine 02/14/2012 4:00 PM Results for this CRYPTOLOGIC SUPPORT SPECIALIST procedure are i n the results section. ENTERIC PATH RSLT Routine 02/14/2012 4:00 PM Resu lts for this CRYPTOLOGIC SUPPORT SPECIALIST procedure are i n the results section. C DIFF SRCE Routine 02/14/2012 4:00 PM Results f or this CRYPTOLOGIC SUPPORT SPECIALIST procedure are i n the results section. HX YADI RESULT-PRINCETON Routine 02/14/2012 4:00 PM Res ults for this CRYPTOLOGIC SUPPORT SPECIALIST procedure are i n the results section. OVA AND PARASITE, Routine 02/14/2012 4:00 PM Resu lts for this CONCENTRATE AND CRYPTOLOGIC SUPPORT SPECIALIST procedure ar e in PERMANENT SMEAR, the results MICROSCOPY, FECES section. C. DIFFICILE TOXIN, F Routine 02/14/2012 4:00 PM Results for this CRYPTOLOGIC SUPPORT SPECIALIST procedure are i n the results section. HX YADI RESULT-PRINCETON Routine 02/14/2012 8:00 AM Res ults for this CRYPTOLOGIC SUPPORT SPECIALIST procedure are i n the results section. documented in this encounter Results HX Hx Yadi Result-[place] (02/14/2012 4:00 PM CRYPTOLOGIC SUPPORT SPECIALIST) [facility] gist Method Time Signature HX YADI See Comment POWERCHART Result-Martinez Specimen (Source) Anatomical Collection Method Collection Time Re ceived Time Location / / Volume Laterality 02/14/2012 4:00 PM CRYPTOLOGIC SUPPORT SPECIALIST Narrative POWERCHART - 02/24/2012 9:11 AM CRYPTOLOGIC SUPPORT SPECIALIST SOURCE: STOOL SUSCEPTIBILITY, AEROBIC, YADI Cancel reason - 02/24/2012 09:08 Notific ation to cancel testing received from the referring faci lity. Test Performed by: [facility] [place] [address] Electrical And Radio Aircraft Mechanic: Sky jones III, M.D. Historical Provider LAB HISTORICAL ORDERS Performing Organization Address [facility] Phon e Number POWERCHART HX-Enteric Path Rslt (02/14/2012 4:00 PM CRYPTOLOGIC SUPPORT SPECIALIST) [facility] Method Time Signature Enteric See Comment POWERCHART Pathogens Culture, Stool Specimen (Source) Anatomical Collection Method Collection Time Re ceived Time Location / / Volume Laterality 02/14/2012 4:00 PM CRYPTOLOGIC SUPPORT SPECIALIST Narrative POWERCHART - 02/21/2012 3:23 PM CRYPTOLOGIC SUPPORT SPECIALIST SOURCE: STOOL ENTERIC PATHOGENS CULTURE, STOOL ? FINAL CAMPYLOBACTER COLI Semi-Urgent Result. Test Performed by: [place] [address] Electrical And Radio Aircraft Mechanic: Sky jones III, M.D. Shabnam Emery M.D. LAB HISTORICAL ORDERS Performing Organization Address City/[facility] Phon e Number POWERCHART HX-Giardia Ag Stl (02/14/2012 4:00 PM CRYPTOLOGIC SUPPORT SPECIALIST) P athologist Signature Giardia Ag, F Negative POWERCHART Specimen (Source) Anatomical Collection Method Collection Time Re ceived Time Location / / Volume Laterality 02/14/2012 4:00 PM CRYPTOLOGIC SUPPORT SPECIALIST Narrative POWERCHART - 02/17/2012 8:51 PM CRYPTOLOGIC SUPPORT SPECIALIST Test Performed by: [place] [address] Electrical And Radio Aircraft Mechanic: Sky jones III, M.D. Shabnam Emery M.D. LAB HISTORICAL ORDERS Performing Organization Address [facility] Code Phon e Number POWERCHART C. difficile Toxin, F (02/14/2012 4:00 PM CRYPTOLOGIC SUPPORT SPECIALIST) P athologist Signature C. difficile Negative POWERCHART Toxin, F Specimen (Source) Anatomical Collection Method Collection Time Re ceived Time Location / / Volume Laterality 02/14/2012 4:00 PM CRYPTOLOGIC SUPPORT SPECIALIST Narrative POWERCHART - 02/17/2012 7:45 PM CRYPTOLOGIC SUPPORT SPECIALIST Laboratory developed test. Test Performed by: [facility] [place] [address] Electrical And Radio Aircraft Mechanic: Sky jones III, M.D. Shabnam Emery M.D. LAB MICROBIOLOGY - GENERAL O RAFAEL Performing Organization Address [facility] Code Phon e Number POWERCHART HX-C diff Srce (02/14/2012 4:00 PM CRYPTOLOGIC SUPPORT SPECIALIST) athologist Signature HXC diff STOOL POWERCHART Srce-[place] Specimen (Source) Anatomical Collection Method Collection Time Re ceived Time Location / / Volume Laterality 02/14/2012 4:00 PM CRYPTOLOGIC SUPPORT SPECIALIST Shabnam Emery M.D. LAB HISTORICAL ORDERS Performing Organization Address [facility] Code Phon e Number POWERCHART Parasitic Examination (02/14/2012 4:00 PM CRYPTOLOGIC SUPPORT SPECIALIST) Patholo gist Method Time Signature Ova and See Comment POWERCHART Parasite, Microscopy, F Comment: SOURCE: STOOL PARASITIC EXAMINATION ?FINAL No parasites seen. Leukocytes, many. Red blood cells, few. Cryptosporidium, Cyclospora, and microsp oridia are not readily detected by this method. Single negative specimen does not rule o ut parasitic infection. Test Performed by: [facility] [place] [address] Electrical And Radio Aircraft Mechanic: Sky jones III, M.D. Specimen (Source) Anatomical Collection Method Collection Time Re ceived Time Location / / Volume Laterality Stool 02/14/2012 4:00 PM CRYPTOLOGIC SUPPORT SPECIALIST Shabnam Emery M.D. LAB MICROBIOLOGY - GENERAL O RAFAEL Performing Organization Address City/State/ZIP Code Phon e Number POWERCHART HX Hx Yadi Result-[place] (02/14/2012 8:00 AM CRYPTOLOGIC SUPPORT SPECIALIST) [facility] gist Method Time Signature HX YADI See Comment POWERCHART Result-[place] Specimen (Source) Anatomical Collection Method Collection Time Re ceived Time Location / / Volume Laterality 02/14/2012 8:00 AM CRYPTOLOGIC SUPPORT SPECIALIST Narrative POWERCHART - 02/28/2012 2:52 PM CRYPTOLOGIC SUPPORT SPECIALIST SOURCE: STOOL SUSCEPTIBILITY, AEROBIC, YADI ? FINAL CAMPYLOBACTER JEJUNI Organism ? CAMPYLOBACTER JEJUNI Antibiotic ?? YADI (mcg/mL) ??Interpretat ion Ciprofloxacin ?0.25 ? S Erythromycin ?4 ? S S=SUSCEPTIBLE ??I=INTERMEDIATE ??R=RESIS TANT N=NOT SUSCEPTIBLE ??D=DOSE DEPENDENT LINDA CEPTIBLE Test Performed by: [facility] - [address] [address] Electrical And Radio Aircraft Mechanic: Sky jones, Sudarshan BEAL Shabnam Emery M.D. LAB HISTORICAL ORDERS Performing Organization Address City/State/ZIP Code Phon e Number POWERCHART documented in this encounter Visit Diagnoses Not on filedocumented in this encounter Additional Health Concerns Assessment Noted Time PHQ-9 Depression Total Score: 1 06/11/2011 8:31 AM CRYPTOLOGIC SUPPORT SPECIALIST documented as of this encounter
--- OUTSIDE RECORDS SUMMARY | 2022-01-31 09:43 | XMS_ITS | Encounter Summary ---
:1955 Author Organization [facility] Address [address] [place] [address] Care Team Providers Name Role Phone Unavailable Primary Care Provider Unavailable Encounter Details Date Type Department Care Team Description 07/04/2011 Hospital Encounter HX [facility] Kimberlyn Mayer AP RN, C.N.P., D.N.P. [address] [place], [place] [phone] (Wo rk) Social History Tobacco Use Types Packs/Day Years Used Date Smoking Tobacco: Never Assessed Alcohol Habits Answer Date Recorded How often do you have a drink containing 4 or more times a w [place] 07/30/2021 alcohol? How many drinks containing alcohol [...] you attend sabianist or Patient refused 2021 synagogue services? 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 - 07/07/2011 1:30 PM CDT Results Notification Document Contains Addenda Addendum by LAURA LANDIN LPN on 08 July 2011 10:23:34 CDT Copy mailed pt. From: KIMBERLYN MAYER RN, JIG OPERATOR To: LAURA LANDIN LPN; Sent: 07/07/2011 13:30:51 CDT Show up: 07/07/2011 13:31:00 CDT Subject: Results Notification please let her know Vit D levels are satifactory. Results: Date Result Name Value 07/04/2011 08:49 25-Hydroxy D-Martinez 36 ng/mL 07/04/2011 08:49 25-Hydroxy D2-Martinez <4.0 ng/mL 07/04/2011 08:49 25-Hydroxy D3-Martinez 36 ng/mL Source: [facility] POWERCHART Document Id: [id number] Electronically signed by Jennifer [facility] Apprenticeship Training Representative [id number] at 09/08/2016 7:41 AM CDT Miscellaneous - Kimberlyn Mayer APRN, C.N.P. - 07/04/2011 7:16 PM CDT Results Notification Document Contains Addenda Addendum by HARMEET LOPEZ LPN on 05 July 2011 10:42:52 CDT Spoke with patient regarding results. Patient states, understanding. Addendum by HARMEET LOPEZ LPN on 05 July 2011 10:13:37 CDT Left message to return call. From: KIMBERLYN MAYER RN, JIG OPERATOR To: KAILEYLAURA ZAYAS Kaushik GARCIA; Sent: 07/04/2011 19:16:25 CDT Show up: 07/04/2011 19:17:00 CDT Subject: Results Notification please report to her satifactory resutls. thanks No change in meds. Results: Date Result Name Value Ref Range 07/04/2011 08:49 TSH 1.68 mcIU/mL (0.30 - 5.00) Source: [facility] POWERCHART Document Id: [id number] Electronically signed by Conversion, [facility] Apprenticeship Training Representative [id number] at 09/08/2016 7:41 AM CDT documented in this encounter Plan of Treatment Upcoming Encounters Date Type Specialty Care Team Description 02/02/2022 Immunization Family Medicine 02/12/2022 Office Visit Dermatology Lacy Dykes M.D. [address] [place], [place] [phone] (Lisha mccann) 02/22/2022 Office Visit Orthopedic Surgery Kimberlyn Mayer, JOSE DANIEL, C.N.P., D.N.P. [address] [place], [place] [phone] (Wo rk) 03/12/2022 Diagnostic Otorhinolaryngology Blanka Carranza, C.N.P. [address] [place], [place] [address] Aleena Hassan Au.D. [address] [place] [address] documented as of this encounter Procedures Procedure Name Priority Date/Time Associated Diagnosis Comme nts 25-HYDROXYVITAMIN Routine 07/04/2011 8:49 AM Resu lts for this D2 AND D3, S CDT procedure are i n the results section. THYROID-STIMULATING Routine 07/04/2011 8:49 AM Re sults for this HORMONE-SENSITIVE CDT procedure are in (S-TSH) the results section. documented in this encounter Results 25-Hydroxyvitamin D2 and D3 (07/04/2011 8:49 AM CDT) athologist Signature HX25 HYDROXY D2 <4.0 NGML POWERCHART 25-Hydroxy D3 36 NGML POWERCHART Vitamin D, S 36 NGML POWERCHART Comment: -- REFERENCE VALUE -- 25-HYDROXY D TOTAL (D2+D3) Optimum levels in the normal population are 25-80 Test Performed by: [facility] Dpt of Lab Med and Pathology [address] [place] [address] Operations Officer Trust Department: Sky jones III, M.D. Specimen (Source) Anatomical Collection Method Collection Time Re ceived Time Location / / Volume Laterality Blood 07/04/2011 8:49 AM CDT Kimberlyn Mayer APRN, C.N.P., D.N.P. LAB BLOOD ADD-ON Performing Organization Address City/[facility] Code Phon e Number POWERCHART Thyroid-Stimulating Hormone-Sensitive (s-TSH) (07/04/2011 8:49 AM CDT) athologist Signature TSH 1.68 0.30 - 5.00 POWERCHART (Thyrotropin) MCIUML Specimen (Source) Anatomical Collection Method Collection Time Re ceived Time Location / / Volume Laterality Blood 07/04/2011 8:49 AM CDT Kimberlyn Mayer APRN, C.N.P., D.N.P. 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
--- OUTSIDE RECORDS SUMMARY | 2022-01-31 09:43 | XMS_ITS | Encounter Summary ---
:1955 Author Organization [facility] Address [address] [place] [address] Care Team Providers Name Role Phone Unavailable Primary Care Provider Unavailable Encounter Details Date Type Department Care Team Description 06/14/2010 Hospital Encounter [facility] Kimberlyn Mayer, JOSE DANIEL, C.N.P., D. N.P. [address] [place] [address] (Wo rk) Social History Tobacco Use Types Packs/Day Years Used Date Smoking Tobacco: Never Assessed Alcohol Habits Answer Date Recorded How often do you have a drink containing 4 or more times a w [place] 07/30/2021 alcohol? How many drinks containing alcohol [...] you attend yarsanism or Patient refused 2021 confucianism services? 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 - 06/14/2010 12:00 AM CST [id number] CHIEF COMPLAINT/REASON FOR VISIT 1. Health maintenance exam. 2. Hypothyroidism status post radiation for hyperthyroidism. 3. Personal history of SVT. HISTORY OF PRESENT ILLNESS 1. Priscilla is a 54-year-old female who comes in today for a health maintenance exam. She is has no particular concerns. It has been three years since she has had a Pap smear which she is quite overdue for. She is currently taking Ambien on an as-needed basis. Also, she uses progesterone and testosterone cream to help with perimenopausal and post menopausal symptoms. She states that is very adequate and she is doing very well. She has no particular concerns in regards to that. She does have a history of a personal history of SVT and is concerned about having a cardiac workup. She does work out on a regular basis on a treadmill and has had no recurrence of palpitations that she can recall. She has in the past had her care done at [facility] and have her physicals then. Had her last colonoscopy was in 2007 and she was noted to be completely normal and she was recommended to recheck again in 10 years. Her last lipid profile was in 2007 and she does believe that she had a reaction to a tetanus and does not want a tetanus recheck. She has never had a bone density scan, does have a family history of osteoporosis with her mother. CURRENT MEDICATIONS She is currently on: Multivitamin one tablet daily. Synthroid 175 mcg by mouth daily. Ambien 10 mg on an as-needed basis. Progesterone capsules daily. Testosterone cream on a daily basis. She also takes vitamin D sublingually daily. Calcium chewables one tablet twice daily. ALLERGIES She is allergic to bee stings and DTAP. SYSTEMS REVIEW Patient denies any heart palpitations currently. She denies any chest pain. She denies any shortness of breath. No new skin lesions. She denies any changes in her skin or hair and no dizziness or vertigo. No changes in bowel or bladder habits. The rest her review of systems was noted to be negative. PAST MEDICAL/SURGICAL HISTORY She has a history of SVT, hyperthyroidism that underwent radiation therapy and currently is left in a hypothyroid state. She is a P2, G1 with no children. She had right hand surgery. She had a stress echo in 2000 which was noted to be normal. SOCIAL HISTORY She is single, , a smoker of 20 years, quit greater than 12 years ago. Drinks caffeine approximately three to four cups per day. She has no children. Alcohol use is one to four glasses of wine per day. 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 FAMILY HISTORY Father had an CA in his 40s that resulted in a CABG later in life. Brother with hyperlipidemia. Maternal uncle who had a coronary artery CA at age 42. Mother with asthma, osteoporosis, and thyroid disorder. Paternal grandfather in his 60s with heart disease and a maternal grandfather with CAD in his 60s. VITAL SIGNS Blood pressure is 110/70, pulse of 78, temperature 36.4, weight of 60.6 kg, and height of 158.4 cm. PHYSICAL EXAMINATION In General: Patient appears nondistressed. SKIN: With no lesions or abnormalities that were of concern. Her head is normocephalic. Eyes: Pupils even, equal, react to light. Extraocular movements are normal. ENT: Was examined and negative. Lymph with no cervical, supraclavicular, axillary or femoral lymphadenopathy. Thyroid was assessed and negative. Breasts: With no masses or abnormalities noted. VESSELS: Carotids with normal upstrokes, no bruits noted. Pulses palpable x4 extremities. Heart with a regular rate and rhythm. She has normal S1-S2. I am unable to appreciate any murmurs or gallops. Her lungs are clear to auscultation with good respiratory effort. ABDOMEN: Soft, no organomegaly. Genitalia: Normal appearing. Rectum is normal-appearing. Vaginal mucosa is normal. Pap smear obtained without any difficulty. No adnexal tenderness was noted. Uterus is normal with palpation. Extremities without any edema. IMPRESSION/REPORT/PLAN 1. Health maintenance exam. 2. Hypothyroidism following radiation therapy for hyperthyroidism. 3. Strong family history of coronary artery disease. 4. Strong family history of osteoporosis. 5. A personal history of SVT. Today for laboratory studies, we will go ahead and order a chest x-ray, an EKG, we will do a Pap smear as well as a chlamydia test, lipid profile, basic metabolic panel, TSH, vitamin D levels, homocysteine levels per patient request, urinalysis, and we will call the patient with these results. I will go ahead and refill her medications accordingly. Laboratory studies with a fasting glucose of 88. Her sodium 136, her potassium is 3.90. Her BUN is 15. Her creatinine is 0.8, cholesterol 212, triglycerides 65, HDL 95, LDL of 104. Her urine completely negative and her TSH is low at 0.03. 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 I will refill her Ambien, her Synthroid we will make an adjustment decreasing from 175 mcg down to 150 mcg and recheck her TSH again in two months. Age appropriate counseling and risk factor reduction was provided by Kimberlyn Mayer. PATIENT EDUCATION: Ready to learn No apparent learning barriers were identified Learning preferences include listening Explained diagnosis and treatment plan Patient/Child/Caregiver expressed understanding of the content Kimberlyn Mayer N.P. /fatmata Electronically Signed By: KIMBERLYN MAYER RN, FISHING BOAT MATE On: 06/15/2010 05:38 Source: [facility] MHSDOLBEYNONRADSYS Document Id: [id number] MACY INTERN documented in this encounter Miscellaneous Notes Miscellaneous - Kimberlyn Mayer APRN, C.N.P. - 06/14/2010 3:46 PM CST Ambulatory Patient Summary [facility] [address] [place] [address] Visit Information Name: PRISCILLA HAMPTON Current Date: 06/14/2010 15:46:41 Primary Care Provider: KIMBERLYN MAYER RN, FISHING BOAT MATE Your Medications Here is a list of your medications. It is important to take your medications as directed. Use a pillbox or chart to help remind you to take your medications. Please let your doctor or nurse know if you have problems taking your medications. Medication/Strength Dose Route Frequency Indications/Special Instructions/Comments Misc Prescription (Misc Prescription) 1 tab Oral once a day multivitamin (multivitamin) 1 tab Oral once a day levothyroxine (Synthroid 175 mcg (0.175 mg) oral tablet) 1 tab(s) Oral once a day Your Allergies & Intolerances Substance Reaction Symptoms Category Comments Bee Stings Drug Daptacel (DTaP) Drug Your Problem List Problem Status Onset Comments Thyroid nodule Active history SVT [Supraventricular tachycardia] Active resolved Hypothyroidism following radioiodine therapy Active General Physical Examination Active Family history - ischemic heart disease Active Family History of Osteoporosis Active Your Recommendations We want to make [...] Test/Treatment Last Done Next Due Additional Information Screening Colonoscopy or Flex Sig or Barium Enema or Occult Blood X3 06/08/2007 06/05/2017 Checks for signs of cancer of the colon. Lipid Panel every 5 years Age 20-75 06/14/2010 06/13/2015 Checks blood for good (HDL) and bad (LDL) cholesterol. Know your numbers, they are one indicator of your risk for heart attack and stroke. Vaccine: Flu every 1 year 06/14/2010 Immunization to help prevent you from getting the flu strain expected to be a problem for that year's flu season. Vaccine: Tetanus every 10 years 11/25/2005 11/23/2015 Immunization to help prevent you from getting the serious disease Tetanus (Lockjaw). Your Upcoming Appointments Date Time Location Reason Provider No Appointments found Your Goals/Additional instructions: Source: [facility] POWERCHART Document Id: [id number] Electronically signed by Jennifer [facility] Bag Press Operator [id number] at 09/08/2016 6:48 PM CDT Ester - Kimberlyn Mayer APRN, C.N.P. - 06/14/2010 3:46 PM CST Ambulatory Depart Summary [facility] - [address] [address] Visit Information Name: PRISCILLA HAMPTON Current Date: 06/14/2010 15:46:41 Primary Care Provider: KIMBERLYN MAYER RN, FISHING BOAT MATE PRISCILLA HAMPTON has been given the following list of medications: Your Medications It is important to take your medications as directed. Use a pill box or chart to help remind you to take your medications. Please let your doctor or nurse know if you have problems taking your medications. Medication/Strength Dose Route Frequency Indications/Special Instructions/Comments Misc Prescription (Misc Prescription) 1 tab Oral once a day multivitamin (multivitamin) 1 tab Oral once a day levothyroxine (Synthroid 175 mcg (0.175 mg) oral tablet) 1 tab(s) Oral once a day Additional Information: Yes - Current list of reconciled medications is provided and explained to the patient and/or family, guardian/caregiver. Source: [facility] POWERCHART Document Id: [id number] Electronically signed by Jennifer [facility] Bag Press Operator [id number] at 09/08/2016 6:48 PM CDT Ester - Isabela Conrad, L.P.N. - 06/14/2010 8:30 AM CST Health Assessment Health Assessment Entered On: 06/14/2010 8:31 PHARMACY INTERN Performed On: 06/14/2010 8:30 PHARMACY INTERN by ISABELA COOK LPN Nutrition Nutrition Risk Factors by History Adult: None ISABELA COOK LPN - 06/14/2010 8:30 PHARMACY INTERN Functional Current Daily Living Assistance: None ISABELA COOK LPN - 06/14/2010 8:30 PHARMACY INTERN Dependent Habits Tobacco Use/Currently Using: No ISABELA COOK LPN - 06/14/2010 8:30 PHARMACY INTERN Caffeine Use Grid Caffeine Use: Current Type: Coffee Frequency: Daily ISABELA COOK LPN - 06/14/2010 8:30 PHARMACY INTERN Psychosocial Domestic Concerns: None ISABELA COOK LPN - 06/14/2010 8:30 PHARMACY INTERN Advance Directive Advanced Directives: Yes ISABELA COOK LPN - 06/14/2010 8:30 PHARMACY INTERN Educ Needs Learning Style Preference Adult Grid Patient: None Family: None ISABELA COOK LPN - 06/14/2010 8:30 PHARMACY INTERN Source: [address] Document Id: [id number] PHARMACY INTERN!20 MACY INTERN Miscellaneous - Isabela Conrad, L.P.N. 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 Intake/History Entered On: 06/14/2010 8:30 PHARMACY INTERN Performed On: 06/14/2010 8:27 PHARMACY INTERN by ISABELA COOK LPN Intake Chief Complaint: yearly physical needs bone density wants a cardiac wirk up Temperature Core: 36.4C(Converted to: 97.5DegF) (LOW) Peripheral Pulse Rate: 78/min Respiratory Rate: 14/min Systolic Blood Pressure: 110mmHg Diastolic Blood Pressure: 70mmHg NIBP Mean: 83mmHg BP Location: Left upper extremity Heart Rhythm: Regular Height: 158.40cm(Converted to: 5ft 2in, 62.36in) Actual Weight: 60.690kg(Converted to: 133lb 13oz) Weight Source: Standing scale Dosing Weight Clinic: 60.69kg Clinic BSA: 1.63 Body Mass Index: 24kg/m2 ISABELA COOK LPN - 06/14/2010 8:27 PHARMACY INTERN Subjective Pain Symptoms: No ISABELA COOK LPN - 06/14/2010 8:27 PHARMACY INTERN Dependent Habits Tobacco Use/Currently Using: No Alcohol Use: Yes JOEYISABELA HERRING COMMUNICATIONS TECHNOLOGIST - 06/14/2010 8:27 PHARMACY INTERN Caffeine Use Grid Caffeine Use: Current Type: Coffee Frequency: Daily ISABELA COOK RADHA - 06/14/2010 8:27 PHARMACY INTERN Allergies Allergies (Active) Bee Stings Estimated Onset Date: Unspecified ; Created By: HARMEET LOPEZ LPN; Reaction Status: Active ; Category: Drug ; Substance: Bee Stings ; Type: Allergy ; Updated By: HARMEET LOPEZ LPN; Reviewed Date: 06/14/2010 8:25 PHARMACY INTERN Daptacel (DTaP) Estimated Onset Date: Unspecified ; Created By: HARMEET LOPEZ LPN; Reaction Status: Active ; Category: Drug ; Substance: Daptacel (DTaP) ; Type: Allergy ; Updated By: HARMEET LOPEZ LPN; Reviewed Date: 06/14/2010 8:25 PHARMACY INTERN Source: [address] Document Id: [id number] PHARMACY INTERN!27 MACY INTERN documented in this encounter Plan of Treatment Upcoming Encounters Date Type Specialty Care Team Description 02/02/2022 Immunization Family Medicine 02/12/2022 Office Visit Dermatology Lacy Dykes M.D. [address] [place], [place] [phone] (Wo rk) 02/22/2022 Office Visit Orthopedic Surgery Kimberlyn Mayer APRN, C.N.P., D.N.P. [address] [place], [place] [phone] (Wo rk) 03/12/2022 Diagnostic Otorhinolaryngology Blanka Carranza, C.N.P. [address] [place], [place] [id number] Aleena Hassan Au.D. [address] [place] [address] documented as of this encounter Procedures Procedure Name Priority Date/Time Associated Diagnosis Comme nts THINPREP SCREEN HPV Routine 06/14/2010 10:30 AM R esults for this REFLEX PHARMACY INTERN procedure are i n the results section. documented in this encounter Results ThinPrep Screen HPV Reflex (06/14/2010 10:30 AM PHARMACY INTERN) [facility] Method Time Signature Interpretation [id number] POWERCHART HXPre Scrn See Comment POWERCHART [facility] Comment: A. ??ThinPrep Pap Test Screen (Cervical/ Endocervical HPV Reflex): Satisfactory for evaluation. Inadequate endocervical/transformation z one component Negative for intraepithelial lesion or m alignancy. Comment: An inadequate endocervical/[place]ust[place] sformational zone component is not necessarily an indicati on for immediately repeating the pap. Correlation with the history an d clinical exam are required. Screened at [facility] Cytology Analysi s Office [address] [place] [id number] [facility] See Comment [place] Comment: Report electronically signed by MILDRED Mcintyre(ASCP) 06/19/2010 09:38 Interpreted by: MILDRED Mcintyre(ASCP) HX [facility] See Comment POWERCHART Comment: A. ??ThinPrep Pap Test Screen (Cervical/ Endocervical HPV Reflex): Received cloudy specimen in ThinPrep via l. Test Performed by: [facility] Dpt of Lab Med and Pathology [address] [place], [place] [id number] Long Term Care Phlebotomist: Sky jones III, M.D. Specimen Anatomical Collection Method Collection Time Receive d Time (Source) Location / / Volume Laterality Cervix/Endocervi 06/14/2010 10:30 011 x AM PHARMACY INTERN 10:30 AM PHARMACY INTERN Kimberlyn Mayer APRN, C.N.P., D.N.P. LAB PAP [facility]X [place] Performing Organization Address City/State/ZIP Code Phon e Number POWERCHART documented in this encounter Visit Diagnoses Not on filedocumented in this encounter
--- OUTSIDE RECORDS SUMMARY | 2022-01-31 09:43 | XMS_ITS | Encounter Summary ---
:1955 Author Organization [facility] Address [address] [place] [address] Care Team Providers Name Role Phone Unavailable Primary Care Provider Unavailable Encounter Details Date Type Department Care Team Description 06/14/2010 Hospital En[facility] Kimberlyn Alvarez, JOSE DANIEL, C.N.P., D.N.P. [address] [place], [place] [phone] (Wo rk) Social History [...] or relatives? How often do you attend anabaptist or Patient refused 2021 denominational services? 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 [address] [place], [place] [phone] (Wo rk) 02/22/2022 Office Visit Orthopedic Surgery Kimberlyn Alvarez, JOSE DANIEL, C.N.P., D.N.P. [address] [place], [place] [phone] (Wo rk) 03/12/2022 Diagnostic Otorhinolaryngology Blanka Carranza, C.N.P. [address] [place] [address] Aleena Hassan Au.D. [address] [place] [address] documented as of this encounter Visit Diagnoses Not on filedocumented in this encounter
--- OUTSIDE RECORDS SUMMARY | 2022-01-31 09:43 | XMS_ITS | Encounter Summary ---
:1955 Author Organization [facility] Address [address] [place] [address] Care Team Providers Name Role Phone Unavailable Primary Care Provider Unavailable Encounter Details Date Type Department Care Team Description 07/30/2012 Hospital Encounter [facility], JOSE DANIEL, C.N.P., D.N.P. [address] [place], [place] [phone] (Wo rk) Social History Tobacco Use Types Packs/Day Years Used Date Smoking Tobacco: Never Assessed Alcohol Habits Answer Date Recorded How often do you have a drink containing 4 or more times a w [place] 07/30/2021 alcohol? How many drinks containing alcohol [...] you attend yarsanism or Patient refused 2021 faith services? 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 ORAL) documented as of this encounter Miscellaneous Notes Miscellaneous - Philip Mayer, JOSE DANIEL, C.N.P. - 07/31/2012 7:37 AM CDT Normal Results Letter 31 July 2012 MARJAN HAMPTON [id number] [facility] [id number] Dear MARJAN HAMPTON, I am pleased to report that your results from the following diagnostic test(s) are Stable. Your bonedensity scan shows osteopneia. It is actually slightly improved from previous scan. It is important you continue to get adequate calcium and Vitamin D, 1200mg/ 800IU daily. As well as continue your regular physical activity. If you have questions or concerns, please do not hesitate to call our office. Result Name Current Result BD Hip/Pelvis/Spine 07/30/2012 Sincerely, PHILIP MAYER [address] [place] [address] Electronic Signature Electronically Signed By: PHILIP MAYER RN, BOTTOM BRUSHER On: 31 July 2012 This document has images extracted. Source: [facility] POWERCHART Document Id: [id number] Electronically signed by Jennifer [facility] Environment Artist [id number] at 09/04/2016 10:55 AM CDT documented in this encounter Plan of Treatment Upcoming Encounters Date Type Specialty Care Team Description 02/02/2022 Immunization Family Medicine 02/12/2022 Office Visit Dermatology Lacy Dykes M.D. [address] [place], [place] [phone] (Wo rk) 02/22/2022 Office Visit Orthopedic Surgery Philip Mayer APRN C.N.P., D.N.P. [address] [place], [place] [phone] (Wo rk) 03/12/2022 Diagnostic Otorhinolaryngology Blanka Carranza, C.N.P. [address] [place], [place] [phone] Aleena Hassan Au.D. [address] [place] [phone] documented as of this encounter Visit Diagnoses Not on filedocumented in this encounter Additional Health Concerns Assessment Noted Time PHQ-9 Depression Total Score: 1 07/08/2012 7:53 AM CDT documented as of this encounter
--- OUTSIDE RECORDS SUMMARY | 2022-01-31 09:43 | XMS_ITS | Encounter Summary ---
:1955 Author Organization [facility] Address [address] [place] [address] Care Team Providers Name Role Phone Unavailable Primary Care Provider Unavailable Encounter Details Date Type Department Care Team Description 05/22/2012 Hospital Encounter HX [facility] Shabnam Emrey M.D. Social History Tobacco Use Types Packs/Day Years Used Date Smoking Tobacco: Never Assessed Alcohol Habits Answer Date Recorded How often do you have a drink containing 4 or more times a w [place] 07/30/2021 alcohol? How many drinks containing alcohol [...] attend jehovah's witness or Patient refused 2021 congregation services? 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 - 05/22/2012 8:26 AM CST [id number] CHIEF COMPLAINT/REASON FOR VISIT Priscilla is here because of some rib pain. This is left-sided rib pain. She injured herself last night. She was running to catch a door that someone was holding open for her, tripped over the curb, and fell forward landing on her left side. She thinks she might have caught her left elbow under the ribsor she might have landed on something. She is not absolutely sure but it was quite painful. It has bothered her all night. She has had difficulty taking a deep breath or coughing. The pain is in the left lateral side just under the left breast. She has not been wearing a bra because that puts pressureon that area. When she does take deep breaths it catches and she has some obvious pain. She denies any fever. No upper respiratory type symptoms. She has a history of having a sternal fracture in the past and rib bruising. She says it is not anywhere near that. She has tried some ibuprofen which really has not helped much. She also took a whole Ambien, and she did sleep okay last night. PHYSICAL EXAMINATION GENERAL: She does not appear to be in any acute distress. VITAL SIGNS: Temperature is 37.4. LUNGS: Clear. CHEST: There is no bruising or erythema. She is tender to touch just on the left lateral side under the left breast. IMPRESSION/REPORT/PLAN Possible rib fracture vs. contusion. PLAN: We discussed the fact that treatment does not change if there is a fracture or are not so we decided not to do an x-ray but to treat the pain. She does not tolerate narcotics very well so we willtry her on tramadol. She has not had this before. If she has problems with it she will let me know, or if it does not control the pain she will let me know. She can try some ice on it. I wrote her somework restrictions saying that she cannot lift over 10 pounds or carry over 10 pounds. She is able towork from home. She does not have to travel for another week or so. If she has worsening symptoms orif she develops a cough or a fever she is to return. Shabnam Emery M.D./[facility] DOCID: [id number] Electronically Signed By: SHABNAM EMERY MD On: 05/22/2012 02:36 PM Source: [facility] MHSDOLBEYNONRADSYS Document Id: [id number] MODERATOR documented in this encounter Miscellaneous Notes Miscellaneous - Shabnam Emery M.D. - 05/22/2012 9:31 AM CST Ambulatory Patient Summary [address] [address] Visit Information Name: PRISCILLA HAMPTON [facility] Number: [id number] Current Date: 05/22/2012 09:31:33 Physicians Attending Provider: SHABNAM EMERY MD Primary Care Provider: KIMBERLYN MAYER RN, INTERCELL CONNECTOR PLACER Your Medications Here is a list of your medications. It is important to take your medications as directed. Use a pillbox or chart to help remind you to take your medications. Please let your doctor or nurse know if you have problems taking your medications. Medication/Strength Dose Route Frequency Indications/Special Instructions/Comments tramadol (tramadol 50 mg oral tablet) 100 mg Oral every 6 hours as needed for Pain famciclovir (Famvir 500 mg oral tablet) 500 mg Oral every 8 hours at onset of cold sore x 1day. zolpidem (Ambien 10 mg oral tablet) 10 [...] Active 07/22/11 date unknown Campylobacter diarrhea Active Your Upcoming Appointments Date Time Location Reason Provider No Appointments found Your Goals/Additional instructions: Source: [facility] POWERCHART Document Id: [id number] MODERATOR Miscellaneous - Shabnam Emery M.D. - 05/22/2012 9:31 AM CST Ambulatory Depart Summary [address] [address] Visit Information Name: PRISCILLA HAMPTON [facility] Number: [id number] Visit Date: 05/22/2012 09:31:32 Attending Provider: SHABNAM EMERY MD Primary Care Provider: KIMBERLYN MAYER RN, INTERCELL CONNECTOR PLACER PRISCILLA HAMPTON has been given the following list of medications: Your Medications It is important to take your medications as directed. Use a pill box or chart to help remind you to take your medications. Please let your doctor or nurse know if you have problems taking your medications. Medication/Strength Dose Route Frequency Indications/Special Instructions/Comments tramadol (tramadol 50 mg oral tablet) 100 mg Oral every 6 hours as needed for Pain famciclovir (Famvir 500 mg oral tablet) 500 mg Oral every 8 hours at onset of cold sore x 1day. zolpidem (Ambien 10 mg oral tablet) 10 [...] your provider for clarification. Additional Information: Source: [facility] POWERCHART Document Id: [id number] MODERATOR Miscellaneous - Shabnam Emery M.D. - 05/22/2012 8:54 AM CST School or Work Excuse School or Work Excuse Entered On: 05/22/2012 8:56 GAME MODERATOR Performed On: 05/22/2012 8:54 GAME MODERATOR by SHABNAM EMERY MD School or Work Excuse Date Patient Seen : 05/22/2012 GAME MODERATOR School or Work Restrictions : Other: unable to lift or carry over 10 lbs for 1week due to rib injury. Unable to travel for this reason for 1 wek Date of Return to School/Work Without Restrictions : 05/29/2012 GAME MODERATOR SHABNAM EMERY MD - 05/22/2012 8:54 GAME MODERATOR Source: [facility] POWERCHART Document Id: [id number] MODERATOR Miscellaneous - Tiera Guzman, LPhilPPhilN. - 05/22/2012 8:37 AM CST Adult Medical Assistant Float Intake/History Adult Medical Assistant Float Intake/History Entered On: 05/22/2012 8:41 GAME MODERATOR Performed On: 05/22/2012 8:37 GAME MODERATOR by TIERA GUZMAN Intake Chief Complaint : tripped and landed on a tile floor yesterday and hurt her ribs on the left side hard to move and take deep breath Temperature Core : 37.4C(Converted to: 99.3DegF) Peripheral Pulse Rate : 72/min Respiratory Rate : 16/min Heart Rhythm : Regular Systolic Blood Pressure : 120mmHg Diastolic Blood Pressure : 70mmHg NIBP Mean : 87mmHg BP Location : Right upper extremity Blood Pressure Cuff Size : Regular Actual Weight : 69.8kg(Converted to: 153lb 14oz) Weight Source : Standing scale Dosing Weight Clinic : 69.80kg TIERA GUZMAN 05/22/2012 8:37 GAME MODERATOR General Info Information Given By : Patient Languages : Wolof TIERA GUZMAN 05/22/2012 8:37 GAME MODERATOR Subjective Pain Symptoms : Yes TIERA GUZMAN 05/22/2012 8:37 GAME MODERATOR Pain Pain Assessment Grid Pain 1 Location : Other: rib Intensity : 7 Aggravating Factors : Breathing, Movement TIERA GUZMAN 05/22/2012 8:37 GAME MODERATOR Dependent Habits Tobacco Use/Currently Using : No Smoking Status : Former smoker TIERA GUZMAN 05/22/2012 8:37 GAME MODERATOR Tobacco Use Grid Type : Cigarettes Last Use : age 32 TIERA GUZMAN 05/22/2012 8:37 GAME MODERATOR Caffeine Use Grid Caffeine Use : Current Type : Coffee Frequency : Daily TIERA GUZMAN 05/22/2012 8:37 GAME MODERATOR Recreational Drug Use Grid Drug Use : None TIERA GUZMAN - 05/22/2012 8:37 GAME MODERATOR Allergy Allergies (Active) Daptacel (DTaP) Estimated Onset Date: Unspecified ; Created By: HARMEET LOPEZ LPN; Reaction Status: Active ; Category: Drug ; Substance: Daptacel (DTaP) ; Type: Allergy ; Updated By: HARMEET LOPEZ LPN; Reviewed Date: 05/22/2012 8:37 GAME MODERATOR WASP/HORNET VENUM Estimated Onset Date: Unspecified ; Created By: CONSTANCE NAJERA RN; Reaction Status: Active ; Category: Drug ; Substance: WASP/HORNET VENUM ; Type: Allergy ; Severity: Severe ; Updated By: CONSTANCE NAJERA RN; Reviewed Date: 05/22/2012 8:37 GAME MODERATOR Source: [facility] Document Id: [id number] MODERATOR documented in this encounter Plan of Treatment Upcoming Encounters Date Type Specialty Care Team Description 02/02/2022 Immunization Family Medicine 02/12/2022 Office Visit Dermatology Lacy Dykes M.D. [address] [place], [place] [phone] (Wo rk) 02/22/2022 Office Visit Orthopedic Surgery Kimberlyn Mayer APRN C.N.P., D.N.P. [address] [place], [place] [phone] (Wo rk) 03/12/2022 Diagnostic Otorhinolaryngology Blanka Carranza, C.N.P. [address] [place], [place] [id number] Aleena Hassan Au.D. [address] [place] [address] documented as of this encounter Visit Diagnoses Not on filedocumented in this encounter Additional Health Concerns Assessment Noted Time PHQ-9 Depression Total Score: 1 06/11/2011 8:31 AM GAME MODERATOR documented as of this encounter
--- OUTSIDE RECORDS SUMMARY | 2022-01-31 09:43 | XMS_ITS | Encounter Summary ---
:1955 Author Organization [facility] Address [address] [place] [address] Care Team Providers Name Role Phone Unavailable Primary Care Provider Unavailable Encounter Details Date Type Department Care Team Description 12/27/2010 Hospital Encounter HX [facility] Kimberlyn Mayer, JOSE DANIEL, C.N.P., D. N.P. [address] [place] [address] (Wo rk) Social History Tobacco [...] you attend baptist or Patient refused 2021 gnosticist services? 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 - 12/27/2010 12:00 AM CDT [id number] CHIEF COMPLAINT/REASON FOR VISIT 1. Foot pain. 2. Stress reaction. HISTORY OF PRESENT ILLNESS 1. Foot pain . Priscilla is a 55-year-old female who comes in today with bilateral heel pain but worse on the right than the left. She states that back in October she was under a lot of stress with work, was having multiple joint aches in her feet, her hands, her back. She did go to the chiropractor who started a natural remedy of many supplements and states that overall it has helped significant other than her feet. Patient states that she has tried various orthotics, has a very high arch in her foot but has continued to have pain in her feet. Her job requires her to be on her feet much of the time. She is actually walking most of the time in airports and traveling a huge amount. As the day progresses her pain in her heel also progresses and gets worse, the more she walks on it the worse it is. She describes it as a sharp pain that goes across her heel, has never had any x-rays and is wondering if she needs x-rays. She states in the past she has had an elevated SED rate but no further work-up was done on that as it was very minimal at that time. 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 2. Stress reaction. The patient states that she is under a significant amount of stress with work. She is having difficulty keeping up. She has tried natural remedies and states that it is starting to affect her more personally. She has overall been against antidepressant medications but states that she is feeling like she may need that at this point. CURRENT MEDICATIONS She is on various herbal supplements. She takes Ambien, Calcium with Vitamin D, Celexa, Famvir for cold sores on an as-needed basis, Synthroid, 150 mcg daily, Vitamin B complex and a Vitamin D, too. ALLERGIES 1) Bee stings. 2) DTAP. SYSTEMS REVIEW She denies any significant weight loss. She denies any chest pain or shortness of breath. No changes in bowel or bladder habits. No significant joint swelling or aching. She does have some small nodules on her PIP joint of her pinkies on both hands but no other joint swelling and they do not cause her any discomfort. No current infectious symptoms. SOCIAL HISTORY Patient has a high stressful job, requires a significant amount of traveling. There are only twenty people that do her job in the [employer]. She admits that she feels her stress is giving her physical symptoms. She tries to work out every day, has had to decrease that because of her heel pain. She is a non tobacco user and occasionally has alcohol. Denies any other drug use. VITAL SIGNS Her blood pressure is 112/62 with a pulse of 60 and her temperature is 36.9-degrees Centigrade. Her weight is 64.1 kg. PHYSICAL EXAMINATION IN GENERAL: Patient appears non-distressed. SKIN: Her skin is warm and dry. HEAD: Her head is normocephalic. HEART: With a regular rate and rhythm. LUNGS: Her lungs are clear to auscultation. ABDOMEN: Soft. There is no organomegaly. EXTREMITIES: She has pain at the calcaneus area of her right heel not so much on her left heel. She also has some lateral pain with pressure of the calcaneus both medially and laterally. There is no redness or swelling noted. There is no pain in her arch she has full range of motion of her foot. IMPRESSION/REPORT/PLAN IMPRESSION & PLAN 1. Plantar fasciitis. I believe this probably plantar fasciitis. Patient has tried conservative therapy already including massaging with a tennis ball, icing it, Ibuprofen, trying to stay off of that a little bit but only for short periods of time and gel cups heel cups without any improvement in her symptoms. I think I will do go ahead and obtain an x-ray to be sure she does not have any heel spurs or something more going on but I think we will further refer her to Podiatry for more aggressive treatment options and possibly even a Cortisone injection if appropriate. 2. Dysthymic disorder. After discussion with patient on treatment options. She would like to go ahead and start on oral medication. We will place on Celexa, 20 milligrams by mouth daily. She is take a half-tablet daily for eight days and then increase up to a full tablet. We talked about correct administration as well potential side effects of medication. I would like to plan to see her back in about two months. If she is unable to come back to see me due to her schedule I would like at least like a phone call to see how she is doing and maybe have her fill out PHQ9 questions. The patient did not want to do that today, however. PATIENT EDU #1 Patient Education Ready to learn. No apparent learning barriers were identified. Learning preferences include listening. Explained diagnosis and treatment plan. Patient/Child/Caregiver expressed understanding of the content. Kimberlyn Mayer N.P. /ritu Electronically Signed By: KIMBERLYN MAYER RN EMERGENCY VEHICLE TECHNICIAN On: 01/01/2011 10:28 PM Source: [facility] MHSDOLBEYNONRADSYS Document Id: [id number] documented in this encounter Miscellaneous Notes Miscellaneous - Kimberlyn Mayer APRN, C.N.P. - 12/27/2010 11:49 AM CDT Ambulatory Patient Summary [address] [place] [address] Visit Information Name: PRISCILLA HAMPTON Current Date: 12/27/2010 11:49:02 Primary Care Provider: KIMBERLYN MAYER RN, EMERGENCY VEHICLE TECHNICIAN Your Medications Here is a list of your medications. It is important to take your medications as directed. Use a pillbox or chart to help remind you to take your medications. Please let your doctor or nurse know if you have problems taking your medications. Medication/Strength Dose Route Frequency Indications/Special Instructions/Comments citalopram (Celexa 20 mg oral tablet) 20 mg Oral once a day ergocalciferol (Vitamin D2) po daily calcium-vitamin D (Calcium 600+D) 1200mg po daily multivitamin (Vitamin B Complex oral liquid) 5 mL Oral once a day levothyroxine (Synthroid 150 mcg (0.15 mg) oral tablet) 150 mcg Oral once a day Waiting for mail order zolpidem (Ambien 10 mg oral tablet) 10 mg Oral once a day (at bedtime) Insomnia famciclovir (Famvir 500 mg oral tablet) 500 [...] unknown Plantar heel pain Active Stress Active Your Recommendations We want to make [...] Information Screening Colonoscopy or Flex Sig or Occult Blood X3 06/08/2007 06/05/2017 Checks for signs of cancer of the colon. Screening Mammogram every 1 year Women 40-75 12/27/2010 X-rays of breast to check for breast [...] and stroke. Vaccine: Flu every 1 year 12/27/2010 Immunization to help prevent you from getting the flu strain expected to be a problem for that year's flu season. Vaccine: Tetanus every 10 years 11/25/2005 11/23/2015 Immunization to help prevent you from getting the serious disease Tetanus (Lockjaw). Your Upcoming Appointments Date Time Location Reason Provider No Appointments found Your Goals/Additional instructions: Source: [facility] [employer] Document Id: [id number] Electronically signed by Jennifer [facility] Linoleum Mechanic [id number] at 09/08/2016 2:59 PM CDT Miscellaneous - Kimberlyn Mayer, JOSE DANIEL, C.N.P. - 12/27/2010 11:49 AM CDT Ambulatory Depart Summary [address] [address] Visit Information Name: PRISCILLA HAMPTON Current Date: 12/27/2010 11:49:01 Primary Care Provider: KIMBERLYN MAYER RN, EMERGENCY VEHICLE TECHNICIAN MEMO PRISCILLA has been given the following list of medications: Your Medications It is important to take your medications as directed. Use a pill box or chart to help remind you to take your medications. Please let your doctor or nurse know if you have problems taking your medications. Medication/Strength Dose Route Frequency Indications/Special Instructions/Comments citalopram (Celexa 20 mg oral tablet) 20 mg Oral once a day ergocalciferol (Vitamin D2) po daily calcium-vitamin D (Calcium 600+D) 1200mg po daily multivitamin (Vitamin B Complex oral liquid) 5 mL Oral once a day levothyroxine (Synthroid 150 mcg (0.15 mg) oral tablet) 150 mcg Oral once a day Waiting for mail order zolpidem (Ambien 10 mg oral tablet) 10 mg Oral once a day (at bedtime) Insomnia famciclovir (Famvir 500 mg oral tablet) 500 mg Oral every 8 hours at onset of cold sore x 1day. Misc Prescription (Misc Prescription) 1 tab Oral once a day Additional Information: Yes - Current list of reconciled medications is provided and explained to the patient and/or family, guardian/caregiver. [facility] Document Id: [id number] Miscellaneous - Isabela Conrad, L.P.N. - 12/27/2010 11:04 AM CDT Health Assessment Health Assessment Entered On: 12/27/2010 11:04 CDT Performed On: 12/27/2010 11:04 CDT by ISABELA COOK LPN Nutrition Nutrition Risk Factors by History Adult: None ISABELA COOK LPN - 12/27/2010 11:04 CDT Functional Current Daily Living Assistance: None ISABELA COOK LPN - 12/27/2010 11:04 CDT Dependent Habits Tobacco Use/Currently Using: No ISABELA COOK LPN - 12/27/2010 11:04 CDT Caffeine Use Grid Caffeine Use: Current Type: Coffee Frequency: Daily ISABELA COOK LPN - 12/27/2010 11:04 CDT Psychosocial Domestic Abuse Concerns: None ISABELA COOK LPN - 12/27/2010 11:04 CDT Advance Directive Advanced Directives: Yes ISABELA COOK LPN - 12/27/2010 11:04 CDT Educ Needs Learning Style Preference Adult Grid Patient: None Family: None ISABELA COOK LPN - 12/27/2010 11:04 CDT Source: [facility] POWERCHART Document Id: [id number] CDT!20 [place]ster - Isabela Conrad LPhilP.N. - 12/27/2010 10:59 AM CDT Adult Patient Clerical Assistant Intake/History Adult Patient Clerical Assistant Intake/History Entered On: 12/27/2010 11:04 CDT Performed On: 12/27/2010 10:59 CDT by ISABELA COOK LPN Intake Chief Complaint: right foot heel spurs Temperature Core: 36.9C(Converted to: 98.4DegF) Peripheral Pulse Rate: 60/min Respiratory Rate: 14/min Systolic Blood Pressure: 112mmHg Diastolic Blood Pressure: 62mmHg NIBP Mean: 79mmHg BP Location: Right upper extremity Heart Rhythm: Regular Actual Weight: 64.100kg(Converted to: 141lb 5oz) Weight Source: Standing scale Dosing Weight Clinic: 64.10kg ISABELA COOK [facility] - 12/27/2010 10:59 CDT Subjective Pain Symptoms: No ISABELA COOK LPN - 12/27/2010 10:59 CDT Dependent Habits Tobacco Use/Currently Using: No Alcohol Use: Yes ISABELA COOK [facility] - 12/27/2010 10:59 CDT Caffeine Use Grid Caffeine Use: Current Type: Coffee Frequency: Daily ISABELA COOK LPN - 12/27/2010 10:59 CDT Allergy Allergies (Active) Bee Stings Estimated Onset Date: Unspecified ; Created By: HARMEET LOPEZ LPN; Reaction Status: Active ; Category: Drug ; Substance: Bee Stings ; Type: Allergy ; Updated By: HARMEET LOPEZ LPN; Reviewed Date: 06/14/2010 8:25 TILE GRINDER Daptacel (DTaP) Estimated Onset Date: Unspecified ; Created By: HARMEET LOPEZ LPN; Reaction Status: Active ; Category: Drug ; Substance: Daptacel (DTaP) ; Type: Allergy ; Updated By: HARMEET LOPEZ LPN; Reviewed Date: 06/14/2010 8:25 TILE GRINDER [facility] [facility] POWERCHART Document Id: [id number] CDT!24 documented in this encounter Plan of Treatment Upcoming Encounters Date Type Specialty Care Team Description 02/02/2022 Immunization Family Medicine 02/12/2022 Office Visit Dermatology Lacy Dykes M.D. [address] [place] [phone] (Wo rk) 02/22/2022 Office Visit Orthopedic Surgery Kimberlyn Mayer, JOSE DANIEL, C.N.P., D.N.P. [address] [place], [place] [phone] (Wo rk) 03/12/2022 Diagnostic Otorhinolaryngology Blanka Carranza C.NPhilPPhil [address] [place], [place] [phone] Aleena Hassan Au.D. [address] [place] [address] documented as of this encounter Visit Diagnoses Not on filedocumented in this encounter
--- OUTSIDE RECORDS SUMMARY | 2022-01-31 09:44 | XMS_ITS | Encounter Summary ---
:1955 Author Organization [facility] Address [address] [place] [address] Care Team Providers Name Role Phone Unavailable Primary Care Provider Unavailable Encounter Details Date Type Department Care Team Description 10/14/2008 Hospital Encounter HX NO MAPPING Loan Caceres M.D. [address] [place], [place] [phone] (Wo rk) Social History Tobacco Use Types Packs/Day Years Used Date Smoking Tobacco: Never Assessed Alcohol Habits Answer Date Recorded How often do you have a drink containing 4 or more times a w [place] 07/30/2021 alcohol? How many drinks containing alcohol [...] you attend temple or Patient refused 2021 congregational services? 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 [address] [place], [place] [phone] (Wo rk) 02/22/2022 Office Visit Orthopedic Surgery Kimberlyn Alvarez APRN, C.N.P., D.N.P. [address] [place], [place] [phone] (Wo rk) 03/12/2022 Diagnostic Otorhinolaryngology Blanka Carranza, C.N.P. [address] [place] [address] Aleena Hassan Au.D. [address] [place] [phone] documented as of this encounter Visit Diagnoses Not on filedocumented in this encounter
--- OUTSIDE RECORDS SUMMARY | 2022-01-31 09:44 | XMS_ITS | Encounter Summary ---
:1955 Author Organization [facility] Address [address] [place] [address] Care Team Providers Name Role Phone Unavailable Primary Care Provider Unavailable Encounter Details Date Type Department Care Team Description 10/14/2008 Hospital Encounter HX NO MAPPING Loan Caceres M.D. [address] [place], [place] [phone] (Wo rk) Social History Tobacco Use Types Packs/Day Years Used Date Smoking Tobacco: Never Assessed Alcohol Habits Answer Date Recorded How often do you have a drink containing 4 or more times a w kn[place] 07/30/2021 alcohol? How many drinks containing alcohol [...] you attend protestant or Patient refused 2021 rastafarian services? 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 [address] [place], [place] [phone] (Wo rk) 02/22/2022 Office Visit Orthopedic Surgery Kimberlyn Alvarez APRN, C.N.P., D.N.P. [address] [place], [place] [phone] (Wo rk) 03/12/2022 Diagnostic Otorhinolaryngology Blanka Carranza, C.N.P. [address] [place] [address] Aleena Hassan Au.D. [address] [place] [phone] documented as of this encounter Visit Diagnoses Not on filedocumented in this encounter
--- OUTSIDE RECORDS SUMMARY | 2022-01-31 09:44 | XMS_ITS | Encounter Summary ---
:1955 Author Organization [facility] Address [address] [place] [address] Care Team Providers Name Role Phone Unavailable Primary Care Provider Unavailable Encounter Details Date Type Department Care Team Description 10/02/2008 Hospital Encounter [facility]X [facility] INPT[facility] Carlene Castano M.D. [address] [place] [address] (Wo rk) Social History Tobacco Use Types Packs/Day Years Used Date Smoking Tobacco: Never Assessed Alcohol Habits Answer Date Recorded How often do you have a drink containing 4 or more times a w [place] 07/30/2021 alcohol? How many drinks containing alcohol [...] you attend buddhist or Patient refused 2021 rastafarian services? 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 [address] [place], [place] [phone] ( rk) 02/22/2022 Office Visit Orthopedic Surgery Kimberlyn Alvarez APRN, C.N.P., D.N.P. [address] [place], [place] [phone] (Wo rk) 03/12/2022 Diagnostic Otorhinolaryngology Blanka Carranza, C.N.P. [address] [place] [address] Aleena Hassan Au.D. [address] [place] [phone] documented as of this encounter Visit Diagnoses Not on filedocumented in this encounter
--- OUTSIDE RECORDS SUMMARY | 2022-01-31 09:44 | XMS_ITS | Encounter Summary ---
:1955 Author Organization [facility] Address [address] [place] [address] Care Team Providers Name Role Phone Unavailable Primary Care Provider Unavailable Encounter Details Date Type Department Care Team Description 08/30/2008 Hospital Encounter [facility]X [facility] Luis Caceres M.D. [address] [place] [phone] (Wo rk) Social History Tobacco Use Types Packs/Day Years Used Date Smoking Tobacco: Never Assessed Alcohol Habits Answer Date Recorded How often do you have a drink containing 4 or more times a w [place] 07/30/2021 alcohol? How many drinks containing alcohol [...] you attend yazdanism or Patient refused 2021 zoroastrianism services? 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 [facility] Document Id: [id number] Telephone Encounter - Jessica Nguyễn L.P.NPhil - 08/30/2008 12:00 AM CDT [id number] Accepting this Rx will FAX it directly to the pharmacy. [facility] Document Id: [id number] documented in this encounter Plan of Treatment Upcoming Encounters Date Type Specialty Care Team Description 02/02/2022 Immunization Family Medicine 02/12/2022 Office Visit Dermatology Lacy Dykes M.D. [address] [place], [place] [phone] (Wo rk) 02/22/2022 Office Visit Orthopedic Surgery Kimberlyn Alvarez APRN, C.N.P., D.N.P. [address] [place], [place] [phone] (Wo rk) 03/12/2022 Diagnostic Otorhinolaryngology Blanka Carranza C.NPhilPPhil [address] [place] [address] Aleena Hassan Au.D. [address] [place] [phone] documented as of this encounter Visit Diagnoses Not on filedocumented in this encounter
--- OUTSIDE RECORDS SUMMARY | 2022-01-31 09:44 | XMS_ITS | Encounter Summary ---
:1955 Author Organization [facility] Address [address] [place] [address] Care Team Providers Name Role Phone Unavailable Primary Care Provider Unavailable Encounter Details Date Type Department Care Team Description 09/07/2008 Hospital Encounter HX [facility] Suad Shankar M.D. [address] [place] [phone] (Wo rk) Social History Tobacco Use Types Packs/Day Years Used Date Smoking Tobacco: Never Assessed Alcohol Habits Answer Date Recorded How often do you have a drink containing 4 or more times a w [place] 07/30/2021 alcohol? How many drinks containing alcohol [...] you attend yarsanism or Patient refused 2021 bahai services? 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 [address] [place], [place] [phone] ( rk) 02/22/2022 Office Visit Orthopedic Surgery Kimberlyn Alvarez APRN, C.N.P., D.N.P. [address] [place], [place] [phone] (Wo rk) 03/12/2022 Diagnostic Otorhinolaryngology Blanka Carranza, C.N.P. [address] [place] [address] Aleena Hassan Au.D. [address] [place] [phone] documented as of this encounter Visit Diagnoses Not on filedocumented in this encounter
--- OUTSIDE RECORDS SUMMARY | 2022-01-31 09:44 | XMS_ITS | Encounter Summary ---
:1955 Author Organization [facility] Address [address] [place] [address] Care Team Providers Name Role Phone Unavailable Primary Care Provider Unavailable Encounter Details Date Type Department Care Team Description 10/18/2008 Hospital Encounter [facility] Luis Caceres M.D. [address] [place] [address] (Wo rk) Social History Tobacco [...] you attend yarsani or Patient refused 2021 mandaen services? 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 Preventative screening such as this helps insure your health for years to come. Congratulations for taking care of yourself! Please contact my office if you have any further questions. [phone]. Sincerely, Lynn Caceres M.D. OBSTETRICS/GYNECOLOGY [facility] Document Id: [id number] documented in this encounter Plan of Treatment Upcoming Encounters Date Type Specialty Care Team Description 02/02/2022 Immunization Family Medicine 02/12/2022 Office Visit Dermatology Lacy Dykes M.D. [address] [place], [place] [phone] (Wo rk) 02/22/2022 Office Visit Orthopedic Surgery Kimberlyn Alvarez APRN, C.N.P., D.N.P. [address] [place], [place] [phone] (Wo rk) 03/12/2022 Diagnostic Otorhinolaryngology Blanka Carranza, C.N.P. [address] [place] [address] Aleena Hassan Au.D. [address] [place] [phone] documented as of this encounter Visit Diagnoses Not on filedocumented in this encounter
--- OUTSIDE RECORDS SUMMARY | 2022-01-31 09:44 | XMS_ITS | Encounter Summary ---
:1955 Author Organization [facility] Address [address] [place] [address] Care Team Providers Name Role Phone Unavailable Primary Care Provider Unavailable Encounter Details Date Type Department Care Team Description 11/24/2008 Hospital Encounter HX [facility] INPT/OBSRV Doc Bowens M.D. [address] [place], [place] [address] (Wo rk) Social History Tobacco Use Types [...] or relatives? How often do you attend scientologist or Patient refused 2021 scientology services? 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 [address] [place], [place] [phone] ( rk) 02/22/2022 Office Visit Orthopedic Surgery Kimberlyn Alvarez APRN, C.N.P., D.N.P. [address] [place], [place] [phone] (Wo rk) 03/12/2022 Diagnostic Otorhinolaryngology Blanka Carranza, C.N.P. [address] [place] [address] Aleena Hassan Au.D. [address] [place] [phone] documented as of this encounter Visit Diagnoses Not on filedocumented in this encounter
--- OUTSIDE RECORDS SUMMARY | 2022-01-31 09:44 | XMS_ITS | Encounter Summary ---
:[address] [facility] Address [address] [place] [address] Care Team Providers Name Role Phone Unavailable Primary Care Provider Unavailable Encounter Details Date Type Department Care Team Description 11/15/2008 Hospital Encounter [facility]X [facility] INPT/OBSRV Doc Bowens M.D. [address] [place], [place] [address] (Wo rk) Social History Tobacco Use Types Packs/Day Years Used Date Smoking Tobacco: Never Assessed Alcohol Habits Answer Date Recorded How often do you have a drink containing 4 or more times a w teller 07/30/2021 alcohol? How many drinks containing alcohol [...] you attend holiness or Patient refused 2021 adventism services? 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 [address] [place], [place] [phone] ( rk) 02/22/2022 Office Visit Orthopedic Surgery Kimberlyn Alvarez APRN, C.N.P., D.N.P. [address] [place], [place] [phone] (Wo rk) 03/12/2022 Diagnostic Otorhinolaryngology Blanka Carranza, C.N.P. [address] [place] [address] Aleena Hassan Au.D. [address] [place] [phone] documented as of this encounter Visit Diagnoses Not on filedocumented in this encounter
--- OUTSIDE RECORDS SUMMARY | 2022-01-31 09:44 | XMS_ITS | Encounter Summary ---
:1955 Author Organization [facility] Address [address] [place] [address] Care Team Providers Name Role Phone Unavailable Primary Care Provider Unavailable Encounter Details Date Type Department Care Team Description 09/13/2008 Hospital Encounter HX [facility] INPT/OBSRV Carmen Sweeney M.D. [address] [place] [phone] (Wo rk) Social History Tobacco Use Types Packs/Day Years Used Date Smoking Tobacco: Never Assessed Alcohol Habits Answer Date Recorded How often do you have a drink containing 4 or more times a w [place] 07/30/2021 alcohol? How many drinks containing [...] you attend scientologist or Patient refused 2021 religion services? 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 [address] [place], [place] [phone] ( rk) 02/22/2022 Office Visit Orthopedic Surgery Kimberlyn Alvarez APRN, C.N.P., D.N.P. [address] [place], [place] [phone] (Wo rk) 03/12/2022 Diagnostic Otorhinolaryngology Blanka Carranza, C.N.P. [address] [place] [address] Aleena Hassan Au.D. [address] [place] [phone] documented as of this encounter Visit Diagnoses Not on filedocumented in this encounter
--- OUTSIDE RECORDS SUMMARY | 2022-01-31 09:44 | XMS_ITS | Encounter Summary ---
:1955 Author Organization [facility] Address [address] [place] [address] Care Team Providers Name Role Phone Unavailable Primary Care Provider Unavailable Encounter Details Date Type Department Care Team Description 10/18/2008 Hospital Encounter HX [facility] CAM INPT/OBSRV Carmen Sweeney M.D. [address] [place] [phone] (Wo rk) Social History Tobacco Use Types Packs/Day Years Used Date Smoking Tobacco: Never Assessed Alcohol Habits Answer Date Recorded How often do you have a drink containing 4 or more times a w [place] 07/30/2021 alcohol? How many drinks containing alcohol [...] you attend yazidism or Patient refused 2021 sikh services? 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 [address] [place], [place] [phone] ( rk) 02/22/2022 Office Visit Orthopedic Surgery Kimberlyn Alvarez APRN, C.N.P., D.N.P. [address] [place], [place] [phone] (Wo rk) 03/12/2022 Diagnostic Otorhinolaryngology Blanka Carranza, C.N.P. [address] [place] [address] Aleena Hassan Au.D. [address] [place] [phone] documented as of this encounter Visit Diagnoses Not on filedocumented in this encounter
--- OUTSIDE RECORDS SUMMARY | 2022-01-31 09:44 | XMS_ITS | Encounter Summary ---
:1955 Author Organization [facility] Address [address] [place] [address] Care Team Providers Name Role Phone Unavailable Primary Care Provider Unavailable Encounter Details Date Type Department Care Team Description 03/07/2009 Hospital Encounter HX [facility] INPT/OBSRV Doc Bowens M.D. [address] [place], [place] [address] (Wo rk) Social History [...] you attend yazdanism or Patient refused 2021 yarsanism services? 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 [address] [place], [place] [phone] ( rk) 02/22/2022 Office Visit Orthopedic Surgery Kimberlyn Alvarez APRN, C.N.P., D.N.P. [address] [place], [place] [phone] (Wo rk) 03/12/2022 Diagnostic Otorhinolaryngology Blanka Carranza, C.N.P. [address] [place] [address] Aleena Hassan Au.D. [address] [place] [phone] documented as of this encounter Visit Diagnoses Not on filedocumented in this encounter
--- OUTSIDE RECORDS SUMMARY | 2022-01-31 09:44 | XMS_ITS | Encounter Summary ---
:1955 Author Organization [facility] Address [address] [place] [address] Care Team Providers Name Role Phone Unavailable Primary Care Provider Unavailable Encounter Details Date Type Department Care Team Description 10/14/2008 Hospital Encounter [facility]X [facility] Luis Caceres M.D. [address] [place] [phone] (Wo rk) Social History Tobacco Use Types Packs/Day Years Used Date Smoking Tobacco: Never Assessed Alcohol Habits Answer Date Recorded How often do you have a drink containing 4 or more times a w [place] 07/30/2021 alcohol? How many drinks containing alcohol [...] you attend mandaeism or Patient refused 2021 jewish services? 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 [address] [place], [place] [phone] ( rk) 02/22/2022 Office Visit Orthopedic Surgery Kimberlyn Alvarez APRN, C.N.P., D.N.P. [address] [place], [place] [phone] (Wo rk) 03/12/2022 Diagnostic Otorhinolaryngology Blanka Carranza, C.N.P. [address] [place] [address] Aleena Hassan Au.D. [address] [place] [phone] documented as of this encounter Visit Diagnoses Not on filedocumented in this encounter
--- OUTSIDE RECORDS SUMMARY | 2022-01-31 09:44 | XMS_ITS | Encounter Summary ---
:1955 [address] [facility] Address [address] [place] [address] Care Team Providers Name Role Phone Unavailable Primary Care Provider Unavailable Encounter Details Date Type Department Care Team Description 10/18/2008 Hospital Encounter HX NO MAPPING Zakia Sweeney M.D. [address] [place] [phone] (Wo rk) Social History Tobacco [...] you attend mu-ism or Patient refused 2021 catholic services? 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 [address] [place], [place] [phone] (Wo rk) 02/22/2022 Office Visit Orthopedic Surgery Kimberlyn Alvarez APRN, C.N.P., D.N.P. [address] [place], [place] [phone] (Wo rk) 03/12/2022 Diagnostic Otorhinolaryngology Blanka Carranza, C.N.P. [address] [place], [place] [address] Aleena Hassan Au.D. [address] [place] [phone] documented as of this encounter Visit Diagnoses Not on filedocumented in this encounter
--- OUTSIDE RECORDS SUMMARY | 2022-01-31 09:44 | XMS_ITS | Encounter Summary ---
:1955 Author Organization [facility] Address [address] [place] [address] Care Team Providers Name Role Phone Unavailable Primary Care Provider Unavailable Encounter Details Date Type Department Care Team Description 10/14/2008 Hospital Encounter HX [facility] Madison Stanton M.D. [address] [place] [address] [phone] (Wo rk) Social History Tobacco Use Types Packs/Day Years Used Date Smoking Tobacco: Never Assessed Alcohol Habits Answer Date Recorded How often do you have a drink containing 4 or more times a w [place] 07/30/2021 alcohol? How many drinks containing alcohol [...] you attend hoahaoism or Patient refused 2021 druze services? 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 - 10/14/2008 8:00 AM CDT [id number] Quick Note: FT4 [employer], [employer] message sent to patient Source: [facility] Document Id: [id number] Electronically signed by Conversion, [facility] Casino Gaming Inspector [id number] at 09/08/2016 8:36 PM CDT Lynn Caceres M.D. - 10/14/2008 8:00 AM CDT [id number] Ms Fitzpatrick is a 53 year old Obstetric History T0 E0 M0 L0 , perimenopausal woman in for annual exam. HPI: skipping still, had been several months then got it 09/26/08 and then 10/13/08. 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 MEDICAL HISTORY: Past Medical History Diagnosis Date Female Stress Incontinence Unspecified Hypothyroidism Unspecified Cardiac Dysrhythmia Has some tachycardia, seen global consumer sector vice president, Takes Atenolol daily Mammographic Microcalcification 01/11/04 rt breast. Benign SURGICAL HISTORY:Past Surgical History Procedure Date Full rout obste care, deliv C/S X 1 Remove tonsils/adenoids,<12 y/o Tonsillectomy and adenoidectomy < age 12 Sling oper stres incontinence 03/23/03 Combined ant/post colporrhaphy 03/23/03 Open treatment metacarpophalangeal dislocation 1 11/21/04 RT Rw visitor use assistant (abstracted) breast lifts Colonoscopy,biopsy 10/13/07 Colonoscopy,remhe kajalghassan,snare 10/13/07 CURRENT MEDICATIONS:Current outpatient prescriptions Medication Sig SYNTHROID 175 MCG OR TABS 1 TABLET DAILY, DO NOT SUBSTITUTE GENERIC AMBIEN 10 MG OR TABS 1 TABLET AT BEDTIME NEEDED for sleep TESTOSTERONE unsure of stenth,uses cream XENICAL 120 MG OR CAPS 1 CAPSULE THREE TIMES DAILY BEFORE MEALS EPIPEN JIMI 1:1000 IJ Twin injector epipen PROGESTERONE 1000 MG/60GM EX CREA 1/4 tsp BID OTC progesterone cream ALLERGIES:Bee, Pollen, Seasonal allergies and Wasp venom REVIEW OF SYSTEMS: NEUROLOGIC: negative. EYES: negative. ENT: some allergies. GI: negative. BREAST: negative. : as above. TOOL TENDER: no breast pain or new or enlarging lumps on self exam, no discharge or pelvic pain. CV: negative. PULMONARY: negative. MUSCULOSKELETAL: seeing [facility] for her low back pain. PSYCH: negative. FAMILY HISTORY: Family History Problem Relation Breast CA No family hx of Colon CA No family hx of Diabetes No family hx of great uncle Heart Father PA at age 40 Cardiovascular Grandparents - Cardiovascular disease Hypertension Father Stroke No family hx of Alzheimers No family hx of Cancer Father prostat Heart Maternal Grandfather Heart Paternal Grandfather Thyroid Mother reviewed 04/11/2006 SOCIAL HISTORY:History Social History Marital Status: Spouse Name: Adrian Cabello Number of Children: 0 Years of Education: N/A Occupational History [employer], Social History Main Topics Tobacco Use: Quit Quit date: 03/07/2003 was smoking 3-4 cig a day Alcohol Use: 6 oz/week Drug Use: No Sexually Active: Yes -- Male partner(s) Other Topics Concern Blood Transfusions No Caffeine Concern Yes 3 coffees in am Sleep Concern Yes does us sleep aid occassionally Stress Concern Yes lost job Weight Concern No Special Diet No Back Care Yes Exercise Yes Seat Belt Yes Self-exams Yes Social History Narrative No narrative on file HEALTH MAINTENANCE: last pap was last yr, last mammogram was last yr, last lipids last yr, colon cancer screening 2007, calcium intake drinks milk, eats yogurt, last dental exam upt to date, last eye exam up to date, last dT ?10 yrs. PHYSICAL EXAMINATION: Vitals as above Well-developed, well-nourished woman in NAD HEENT: negative ENT: ENT exam normal, no neck nodes or sinus tenderness Neck: Supple, no adenopathy and thyroid normal LUNGS: Normal - Clear to auscultation without rales, rhonchi, or wheezing. BACK: no spinal or CVAT HEART: Regular rate, rhythm and No murmur, rub, gallop BREAST: No masses, skin, nipple or axillary changes ABDOMEN: Benign, Soft, flat, non-tender, No masses, organomegaly and No inguinal nodes PELVIC EXAM: Lymph: no enlarged groin nodes External genitalia: normal development, normal BUS, no lesions Perineum: normal skin, no lesions, good support Urethra meatus: normal , no lesion or caruncle Urethra: normal, nontender Bladder: nontender, no masses, not enlarged Vagina:normal mucosa and ruggae, no lesions not atrophic Cervix:primiparous and no lesions Uterus: smooth, firm, mobile, without irregularities anteverted Adnexa: not palpable RV: not indicated Rectum: no hemorrhoids, no bleeding EXTREMITIES: Normal, has smooth, non tender papule 7mm right index finger NEUROLOGIC: Normal SKIN: scattered benign nevi IMPRESSION: Annual gynecologic health maintenance examination in a shira menopausal woman-gets progesterone and testosterone, had T 85 last yr, gets it elsewhere 2. Hypothyroidism-refilled synthroid 3. Back pain-improved with back med rx program 4. Right index finger lesion ? Neuroma- now distorting nail. Will have her see Dr. Chambers. 5. Urgency, occ urge incontinence-discussed, Rx vagifem PLAN: pap smear done today, mammogram, DTAP, she will get her fasting lipids and FBS at [facility](needs it yearly to get a better rate on insurance) Refilled ambien, prn xenical-she take is when she travels., epipen Source: [facility] RWHXTRANSXRTFSYS Document Id: [id number] Electronically signed by Jennifer [facility] Casino Gaming Inspector [id number] at 09/08/2016 8:36 PM CDT documented in this encounter Plan of Treatment Upcoming Encounters Date Type Specialty Care Team Description 02/02/2022 Immunization Family Medicine 02/12/2022 Office Visit Dermatology Lacy Dykes M.D. [address] [place] [address] [phone] (Wo rk) 02/22/2022 Office Visit Orthopedic Surgery Kimberlyn Alvarez APRN C.N.P., D.N.P. [address] [facility], [place] [phone] (Wo rk) 03/12/2022 Diagnostic Otorhinolaryngology Blanka Carranza C.N.PPhil [address] [place], [place] [phone] Aleena Hassan Au.D. [address] [place] [phone] documented as of this encounter Visit Diagnoses Not on filedocumented in this encounter
--- OUTSIDE RECORDS SUMMARY | 2022-01-31 09:44 | XMS_ITS | Encounter Summary ---
:1955 Author Organization [facility] Address [address] [place] [address] Care Team Providers Name Role Phone Unavailable Primary Care Provider Unavailable Encounter Details Date Type Department Care Team Description 10/14/2008 Hospital Encounter [facility] Provider, Histori enrique Social History Tobacco Use Types Packs/Day Years Used Date Smoking Tobacco: Never Assessed Alcohol Habits Answer Date Recorded How often do you have a drink containing 4 or more times a w [place] 07/30/2021 alcohol? How many drinks containing alcohol [...] you attend mandaeism or Patient refused 2021 orthodoxy services? 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 [address] [place], [place] [phone] (Wo rk) 02/22/2022 Office Visit Orthopedic Surgery Kimberlyn Alvarez APRN, C.N.P., D.N.P. [address] [place], [place] [phone] (Wo rk) 03/12/2022 Diagnostic Otorhinolaryngology Blanka Carranza, C.N.P. [address] [place] [address] Aleena Hassan Au.D. [address] [place] [phone] documented as of this encounter Visit Diagnoses Not on filedocumented in this encounter
--- OUTSIDE RECORDS SUMMARY | 2022-01-31 09:44 | XMS_ITS | Encounter Summary ---
:1955 Author Organization [facility] Address [address] [place] [address] Care Team Providers Name Role Phone Unavailable Primary Care Provider Unavailable Encounter Details Date Type Department Care Team Description 11/11/2008 Hospital Encounter HX [facility] Doc Bowens M.D. [address] [place], [place] [address] (Wo rk) Social History Tobacco Use Types Packs/Day Years Used Date Smoking Tobacco: Never Assessed Alcohol Habits Answer Date Recorded How often do you have a drink containing 4 or more times a w [place] 07/30/2021 alcohol? How many drinks containing alcohol [...] you attend shinto or Patient refused 2021 yazidism services? 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 [address] [place], [place] [phone] ( rk) 02/22/2022 Office Visit Orthopedic Surgery Kimberlyn Alvarez APRN, C.N.P., D.N.P. [address] [place], [place] [phone] (Wo rk) 03/12/2022 Diagnostic Otorhinolaryngology Blanka Carranza, C.N.P. [address] [place] [address] Aleena Hsasan Au.D. [address] [place] [phone] documented as of this encounter Visit Diagnoses Not on filedocumented in this encounter
--- OUTSIDE RECORDS SUMMARY | 2022-01-31 09:44 | XMS_ITS | Encounter Summary ---
:1955 Author Organization [facility] Address [address] [place] [address] Care Team Providers Name Role Phone Unavailable Primary Care Provider Unavailable Encounter Details Date Type Department Care Team Description 09/13/2008 Hospital Encounter HX NO MAPPING Zakia Sweeney M.D. [address] [place] [phone] (Wo rk) Social History Tobacco Use Types Packs/Day Years Used Date Smoking Tobacco: Never Assessed Alcohol Habits Answer Date Recorded How often do you have a drink containing 4 or more times a w [place] 07/30/2021 alcohol? How many drinks containing alcohol [...] you attend restorationist or Patient refused 2021 congregation services? 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 [address] [place], [place] [phone] (Wo rk) 02/22/2022 Office Visit Orthopedic Surgery Kimberlyn Alvarez APRN, C.N.P., D.N.P. [address] [place], [place] [phone] (Wo rk) 03/12/2022 Diagnostic Otorhinolaryngology Blanka Carranza, C.N.P. [address] [place], [place] [phone] Aleena Hassan Au.D. [address] [place] [phone] documented as of this encounter Visit Diagnoses Not on filedocumented in this encounter
--- OUTSIDE RECORDS SUMMARY | 2022-01-31 09:45 | XMS_ITS | Encounter Summary ---
:1955 Author Organization [facility] Address [address] [place] [address] Care Team Providers Name Role Phone Unavailable Primary Care Provider Unavailable Encounter Details Date Type Department Care Team Description 07/10/2007 Hospital Encounter [facility]X [facility] Provider, Historic al Social History Tobacco Use Types Packs/Day Years Used Date Smoking Tobacco: Never Assessed Alcohol Habits Answer Date Recorded How often do you have a drink containing 4 or more times a w [place] 07/30/2021 alcohol? How many drinks containing alcohol [...] you attend yarsani or Patient refused 2021 shinto services? 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 - 07/10/2007 8:15 AM CDT [id number] Addended by: GILLIAN CACERES on: 07/11/2007 10:08:50 PM Modules accepted: Orders, Medications Source: [facility] Document Id: [id number] Electronically signed by [facility] After School Driver [id number] at 09/09/2016 2:13 AM CDT Miscellaneous - Gillian Caceres M.D. - 07/10/2007 8:15 AM CDT [id number] Addended by: GILLIAN CACERES on: 07/11/2007 10:11:36 PM Modules accepted: Orders Source: [facility] Document Id: [id number] Electronically signed by [facility], [facility] After School Driver [id number] at 09/09/2016 2:13 AM CDT documented in this encounter Plan of Treatment Upcoming Encounters Date Type Specialty Care Team Description 02/02/2022 Immunization Family Medicine 02/12/2022 Office Visit Dermatology Lacy Dykes M.D. [address] [place], [place] [phone] (Wo rk) 02/22/2022 Office Visit Orthopedic Surgery Kimberlyn Alvarez APRN, C.N.P., D.N.P. [address] [place] [phone] (Wo rk) 03/12/2022 Diagnostic Otorhinolaryngology Blanka Carranza, C.N.P. [address] [place] [address] Aleena Hassan Au.D. [address] [place] [phone] documented as of this encounter Visit Diagnoses Not on filedocumented in this encounter
--- OUTSIDE RECORDS SUMMARY | 2022-01-31 09:45 | XMS_ITS | Encounter Summary ---
:1955 Author Organization [facility] Address [address] [place] [address] Care Team Providers Name Role Phone Unavailable Primary Care Provider Unavailable Encounter Details Date Type Department Care Team Description 06/21/2008 Hospital Encounter [facility]X [facility] Carlene Castano M.D. [address] [place] [address] (Wo rk) Social History Tobacco Use Types Packs/Day Years Used Date Smoking Tobacco: Never Assessed Alcohol Habits Answer Date Recorded How often do you have a drink containing 4 or more times a w [place] 07/30/2021 alcohol? How many drinks containing [...] you attend anabaptism or Patient refused 2021 mandaeism services? 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 [address] [place], [place] [phone] ( rk) 02/22/2022 Office Visit Orthopedic Surgery Kimberlyn Alvarez APRN, C.N.P., D.N.P. [address] [place], [place] [phone] (Wo rk) 03/12/2022 Diagnostic Otorhinolaryngology Blanka Carranza, C.N.P. [address] [place] [address] Aleena Hassan Au.D. [address] [place] [phone] documented as of this encounter Visit Diagnoses Not on filedocumented in this encounter
--- OUTSIDE RECORDS SUMMARY | 2022-01-31 09:45 | XMS_ITS | Encounter Summary ---
:1955 Author Organization [facility] Address [address] [place] [address] Care Team Providers Name Role Phone Unavailable Primary Care Provider Unavailable Encounter Details Date Type Department Care Team Description 02/10/2006 Hospital Encounter [facility] Luis Caceres M.D. [address] [place] [phone] (Wo rk) Social History Tobacco Use Types Packs/Day Years Used Date Smoking Tobacco: Never Assessed Alcohol Habits Answer Date Recorded How often do you have a drink containing 4 or more times a w [place] 07/30/2021 alcohol? How many drinks containing [...] you attend uatsdin or Patient refused 2021 synagogue services? 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 She will need an extention on her meds,[facility] will be calling. thanks Source: [facility] RWHXTRANSXRTFSYS Document Id: [id number] documented in this encounter Plan of Treatment Upcoming Encounters Date Type Specialty Care Team Description 02/02/2022 Immunization Family Medicine 02/12/2022 Office Visit Dermatology Lacy Dykes M.D. [address] [place], [place] [phone] (Wo rk) 02/22/2022 Office Visit Orthopedic Surgery Kimberlyn Alvarez APRN, C.N.P., D.N.P. [address] [place], [place] [phone] (Wo rk) 03/12/2022 Diagnostic Otorhinolaryngology Blanka Carranza, C.N.P. [address] [place], [place] [phone] Aleena Hassan Au.D. [address] [place] [phone] documented as of this encounter Visit Diagnoses Not on filedocumented in this encounter
--- OUTSIDE RECORDS SUMMARY | 2022-01-31 09:45 | XMS_ITS | Encounter Summary ---
:1955 Author Organization [facility] Address [address] [place] [address] Care Team Providers Name Role Phone Unavailable Primary Care Provider Unavailable Encounter Details Date Type Department Care Team Description 10/19/2007 Hospital Encounter [facility] Madison Stanton M.D. [address] [place] [phone] (Wo rk) Social History Tobacco Use Types Packs/Day Years Used Date Smoking Tobacco: Never Assessed Alcohol Habits Answer Date Recorded How often do you have a drink containing 4 or more times a w [place] 07/30/2021 alcohol? How many drinks containing alcohol [...] you attend mandaen or Patient refused 2021 sabianism services? 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 [address] [place], [place] [phone] ( rk) 02/22/2022 Office Visit Orthopedic Surgery Kimberlyn Alvarez APRN, C.N.P., D.N.P. [address] [place], [place] [phone] (Wo rk) 03/12/2022 Diagnostic Otorhinolaryngology Blanka Carranza, C.N.P. [address] [place] [address] Aleena Hassan Au.D. [address] [place] [phone] documented as of this encounter Visit Diagnoses Not on filedocumented in this encounter
--- OUTSIDE RECORDS SUMMARY | 2022-01-31 09:45 | XMS_ITS | Encounter Summary ---
:1955 Author Organization [facility] Address [address] [place] [address] Care Team Providers Name Role Phone Unavailable Primary Care Provider Unavailable Encounter Details Date Type Department Care Team Description 06/24/2007 Hospital Encounter [facility]X [facility] Suad Shankar M.D. [address] [place] [phone] (Wo rk) Social History Tobacco Use Types Packs/Day Years Used Date Smoking Tobacco: Never Assessed Alcohol Habits Answer Date Recorded How often do you have a drink containing 4 or more times a w [place] 07/30/2021 alcohol? How many drinks containing alcohol [...] you attend hindu or Patient refused 2021 synagogue services? 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 [address] [place], [place] [phone] ( rk) 02/22/2022 Office Visit Orthopedic Surgery Kimberlyn Alvarez APRN, C.N.P., D.N.P. [address] [place], [place] [phone] (Wo rk) 03/12/2022 Diagnostic Otorhinolaryngology Blanka Carranza, C.N.P. [address] [place] [address] Aleena Hassan Au.D. [address] [place] [phone] documented as of this encounter Visit Diagnoses Not on filedocumented in this encounter
--- OUTSIDE RECORDS SUMMARY | 2022-01-31 09:45 | XMS_ITS | Encounter Summary ---
:1955 Author Organization [facility] Address [address] [place] [address] Care Team Providers Name Role Phone Unavailable Primary Care Provider Unavailable Encounter Details Date Type Department Care Team Description 07/13/2007 Hospital Encounter [facility] Provider, [facility] Social History Tobacco Use Types Packs/Day Years [...] you attend adventism or Patient refused 2021 yarsanism services? 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 Please access the [employer] web site at [email or web address]. Your access code is: [email or web address] Access Code Expiration: Sun Oct 11, 2007 12:32 PM If you allow your access code to , or if you have any questions please call the [employer] denial management representative at your primary clinic during normal clinic hours. Sincerely, [facility] Source: [facility] Document Id: [id number] documented in this encounter Plan of Treatment Upcoming Encounters Date Type Specialty Care Team Description 02/02/2022 Immunization Family Medicine 02/12/2022 Office Visit Dermatology Lacy Dykes M.D. [address] [place], [place] [phone] (Lisha mccann) 02/22/2022 Office Visit Orthopedic Surgery Kimberlyn Alvarez APRN, C.N.P., D.N.P. [address] [place], [place] [phone] (Lisha rk) 03/12/2022 Diagnostic Otorhinolaryngology Blanka Carranza C.N.P. [address] [place] [address] Aleena Hassan Au.D. [address] [place] [phone] documented as of this encounter Visit Diagnoses Not on filedocumented in this encounter
--- OUTSIDE RECORDS SUMMARY | 2022-01-31 09:45 | XMS_ITS | Encounter Summary ---
:1955 Author Organization [facility] Address [address] [place] [address] Care Team Providers Name Role Phone Unavailable Primary Care Provider Unavailable Encounter Details Date Type Department Care Team Description 08/23/2007 Hospital Encounter [facility] Madison Stanton M.D. [address] [place] [phone] (Wo rk) Social History Tobacco [...] you attend restoration or Patient refused 2021 baptist services? 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 [address] [place], [place] [phone] ( rk) 02/22/2022 Office Visit Orthopedic Surgery Kimberlyn Alvarez APRN, C.N.P., D.N.P. [address] [place], [place] [phone] (Wo rk) 03/12/2022 Diagnostic Otorhinolaryngology Blanka Carranza, C.N.P. [address] [place] [address] Aleena Hassan Au.D. [address] [place] [phone] documented as of this encounter Visit Diagnoses Not on filedocumented in this encounter
--- OUTSIDE RECORDS SUMMARY | 2022-01-31 09:45 | XMS_ITS | Encounter Summary ---
:1955 Author Organization [facility] Address [address] [place] [address] Care Team Providers Name Role Phone Unavailable Primary Care Provider Unavailable Encounter Details Date Type Department Care Team Description 08/21/2007 Hospital Encounter HX NO MAPPING Loan Caceres M.D. [address] [place], [place] [phone] (Wo rk) Social History Tobacco Use Types Packs/Day Years Used Date Smoking Tobacco: Never Assessed Alcohol Habits Answer Date Recorded How often do you have a drink containing 4 or more times a w [place] 07/30/2021 alcohol? How many drinks containing alcohol [...] you attend samaritan or Patient refused 2021 mu-ism services? 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 [address] [place], [place] [phone] (Wo rk) 02/22/2022 Office Visit Orthopedic Surgery Kimberlyn Alvarez APRN, C.N.P., D.N.P. [address] [place], [place] [phone] (Wo rk) 03/12/2022 Diagnostic Otorhinolaryngology Blanka Carranza, C.N.P. [address] [place] [address] Aleena Hassan Au.D. [address] [place] [phone] documented as of this encounter Visit Diagnoses Not on filedocumented in this encounter
--- OUTSIDE RECORDS SUMMARY | 2022-01-31 09:45 | XMS_ITS | Encounter Summary ---
:1955 Author Organization [facility] Address [address] [place] [address] Care Team Providers Name Role Phone Unavailable Primary Care Provider Unavailable Encounter Details Date Type Department Care Team Description 04/11/2006 Hospital Encounter HX NO MAPPING Loan Caceres M.D. [address] [place], [place] [phone] (Wo rk) Social History Tobacco Use Types Packs/Day Years Used Date Smoking Tobacco: Never Assessed Alcohol Habits Answer Date Recorded How often do you have a drink containing 4 or more times a w [place] 07/30/2021 alcohol? How many drinks containing [...] you attend confucianism or Patient refused 2021 voodoo services? 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 [address] [place], [place] [phone] (Wo rk) 02/22/2022 Office Visit Orthopedic Surgery Kimberlyn Alvarez APRN, C.N.P., D.N.P. [address] [place], [place] [phone] (Wo rk) 03/12/2022 Diagnostic Otorhinolaryngology Blanka Carranza, C.N.P. [address] [place] [address] Aleena Hassan Au.D. [address] [place] [phone] documented as of this encounter Visit Diagnoses Not on filedocumented in this encounter
--- OUTSIDE RECORDS SUMMARY | 2022-01-31 09:45 | XMS_ITS | Encounter Summary ---
:1955 Author Organization [facility] Address [address] [place] [address] Care Team Providers Name Role Phone Unavailable Primary Care Provider Unavailable Encounter Details Date Type Department Care Team Description 10/16/2007 Hospital Encounter HX [facility] INTERNMED Provider, [facility] Social History Tobacco Use Types Packs/Day Years Used Date Smoking Tobacco: Never Assessed Alcohol Habits Answer Date Recorded How often do you have a drink containing 4 or more times a w [place] 07/30/2021 alcohol? How many drinks containing alcohol [...] you attend rastafarian or Patient refused 2021 amish services? 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 I recommend you continue your current medications, and have a repeat colonoscopy in 3 years. This abbe change to what was previously stated. If you have any questions/concerns regarding this, please call [facility] at [phone]. Thank you for letting us serve you. Sincerely, Ricci Graff M.D./esvin Source: [facility] Document Id: [id number] documented in this encounter Plan of Treatment Upcoming Encounters Date Type Specialty Care Team Description 02/02/2022 Immunization Family Medicine 02/12/2022 Office Visit Dermatology Lacy Dykes M.D. [address] [place], [place] [phone] (Wo rk) 02/22/2022 Office Visit Orthopedic Surgery Kimberlyn Alvarez APRN, C.N.P., D.N.P. [address] [place], [place] [phone] (Wo rk) 03/12/2022 Diagnostic Otorhinolaryngology Blanka Carranza C.N.P. [address] [place] [address] Aleena Hassan Au.D. [address] [place] [phone] documented as of this encounter Visit Diagnoses Not on filedocumented in this encounter
--- OUTSIDE RECORDS SUMMARY | 2022-01-31 09:45 | XMS_ITS | Encounter Summary ---
:1955 Author Organization [facility] Address [address] [place] [address] Care Team Providers Name Role Phone Unavailable Primary Care Provider Unavailable Encounter Details Date Type Department Care Team Description 10/13/2007 Hospital Encounter HX NO MAPPING Provider, Historical Social History Tobacco Use Types Packs/Day Years Used Date Smoking Tobacco: Never Assessed Alcohol Habits Answer Date Recorded How often do you have a drink containing 4 or more times a w [place] 07/30/2021 alcohol? How many drinks containing alcohol [...] you attend denominational or Patient refused 2021 hindu services? 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 [address] [place], [place] [phone] (Wo rk) 02/22/2022 Office Visit Orthopedic Surgery Kimberlyn Alvarez APRN, C.N.P., D.N.P. [address] [place], [place] [phone] (Wo rk) 03/12/2022 Diagnostic Otorhinolaryngology Blanka Carranza, C.N.P. [address] [place] [address] Aleena Hassan Au.D. [address] [place] [phone] documented as of this encounter Visit Diagnoses Not on filedocumented in this encounter
--- OUTSIDE RECORDS SUMMARY | 2022-01-31 09:45 | XMS_ITS | Encounter Summary ---
:1955 Author Organization [facility] Address [address] [place] [address] Care Team Providers Name Role Phone Unavailable Primary Care Provider Unavailable Encounter Details Date Type Department Care Team Description 04/11/2006 Hospital Encounter HX [facility] XRAY Provider, Histori enrique Social History Tobacco Use Types Packs/Day Years Used Date Smoking Tobacco: Never Assessed Alcohol Habits Answer Date Recorded How often do you have a drink containing 4 or more times a w [place] 07/30/2021 alcohol? How many drinks containing [...] you attend christian or Patient refused 2021 buddhism services? 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 [address] [place], [place] [phone] (Wo rk) 02/22/2022 Office Visit Orthopedic Surgery Kimberlyn Alvarez APRN, C.N.P., D.N.P. [address] [place], [place] [phone] (Wo rk) 03/12/2022 Diagnostic Otorhinolaryngology Blanka Carranza, C.N.P. [address] [place] [address] Aleena Hassan Au.D. [address] [place] [address] documented as of this encounter Visit Diagnoses Not on filedocumented in this encounter
--- OUTSIDE RECORDS SUMMARY | 2022-01-31 09:45 | XMS_ITS | Encounter Summary ---
:1955 Author Organization [facility] Address [address] [place] [address] Care Team Providers Name Role Phone Unavailable Primary Care Provider Unavailable Encounter Details Date Type Department Care Team Description 10/16/2007 Hospital Encounter HX [facility] Madison Stanton M.D. [address] [place] [phone] (Wo rk) Social History Tobacco Use Types Packs/Day Years Used Date Smoking Tobacco: Never Assessed Alcohol Habits Answer Date Recorded How often do you have a drink containing 4 or more times a w [place] 07/30/2021 alcohol? How many drinks containing alcohol [...] you attend advent or Patient refused 2021 holiness services? 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 - 10/16/2007 12:00 AM CDT [id number] Message from [employer]: Original authorizing provider: Lynn Caceres MD Priscilla Alanisfield would like a refill of the following medications: AMBIEN 10 MG OR TABS [Lynn Caceres MD] Preferred pharmacy: other Comment: Please send a prescription for Ambien to [facility] mail order. I am no longer able to utilize my local retail pharmacy. thank you Source: [facility]WHX[facility] Document Id: [id number] documented in this encounter Plan of Treatment Upcoming Encounters Date Type Specialty Care Team Description 02/02/2022 Immunization Family Medicine 02/12/2022 Office Visit Dermatology Lacy Dykes M.D. [address] [place], [place] [phone] (Wo rk) 02/22/2022 Office Visit Orthopedic Surgery Kimberlyn Alvarez APRN, C.N.P., D.N.P. [address] [place], [place] [phone] (Wo rk) 03/12/2022 Diagnostic Otorhinolaryngology Blanka Carranza C.N.P. [address] [place] [address] Aleena Hassan Au.D. [address] [place] [address] documented as of this encounter Visit Diagnoses Not on filedocumented in this encounter
--- OUTSIDE RECORDS SUMMARY | 2022-01-31 09:45 | XMS_ITS | Encounter Summary ---
:1955 Author Organization [facility] Address [address] [place] [address] Care Team Providers Name Role Phone Unavailable Primary Care Provider Unavailable Encounter Details Date Type Department Care Team Description 10/23/2007 Hospital Encounter HX [facility] Madison Stanton M.D. [address] [place] [phone] (Wo rk) Social History Tobacco Use Types Packs/Day Years Used Date Smoking Tobacco: Never Assessed Alcohol Habits Answer Date Recorded How often do you have a drink containing 4 or more times a w [place] 07/30/2021 alcohol? How many drinks containing alcohol [...] you attend druze or Patient refused 2021 oriental orthodox services? 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 She needs both of these as a 90 day supply and she would like this sent to [facility]. Source: [facility] Document Id: [id number] Telephone Encounter - Inna Tamez L.P.N. - 10/23/2007 12:00 AM CDT [id number] Will you redo- [facility] did not receive rx and needs hard copy. Rx will be printed out for pharmacy upon accepting this encounter. Source: [facility] Document Id: [id number] Electronically signed by Conversion, [facility] Balloon Artist [id number] at 09/09/2016 3:37 AM CDT Telephone Encounter - Inna Tamez L.P.N. - 10/23/2007 12:00 AM CDT [id number] Hand faxed to [phone] as instructed to [facility]. Source: [facility] Document Id: [id number] Electronically signed by Conversion, [facility] Balloon Artist [id number] at 09/09/2016 3:37 AM CDT documented in this encounter Plan of Treatment Upcoming Encounters Date Type Specialty Care Team Description 02/02/2022 Immunization Family Medicine 02/12/2022 Office Visit Dermatology Lacy Dykes M.D. [address] [place], [place] [phone] (Wo rk) 02/22/2022 Office Visit Orthopedic Surgery Kimberlyn Alvarez APRN C.N.P., D.N.P. [address] [place], [place] [phone] (Wo rk) 03/12/2022 Diagnostic Otorhinolaryngology Blanka Carranza, C.N.P. [address] [place] [address] Aleena Hassan Au.D. [address] [place] [address] documented as of this encounter Visit Diagnoses Not on filedocumented in this encounter
--- OUTSIDE RECORDS SUMMARY | 2022-01-31 09:45 | XMS_ITS | Encounter Summary ---
:1955 Author Organization [facility] Address [address] [place] [address] Care Team Providers Name Role Phone Unavailable Primary Care Provider Unavailable Encounter Details Date Type Department Care Team Description 04/10/2006 Hospital Encounter [facility]X [facility] Suad Shankar M.D. [address] [place] [phone] (Wo rk) Social History Tobacco Use Types Packs/Day Years Used Date Smoking Tobacco: Never Assessed Alcohol Habits Answer Date Recorded How often do you have a drink containing 4 or more times a w [place] 07/30/2021 alcohol? How many drinks containing alcohol [...] you attend hindu or Patient refused 2021 rastafari services? 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 [address] [place], [place] [phone] ( rk) 02/22/2022 Office Visit Orthopedic Surgery iKmberlyn Alvarez APRN, C.N.P., D.N.P. [address] [place], [place] [phone] (Wo rk) 03/12/2022 Diagnostic Otorhinolaryngology Blanka Carranza, C.N.P. [address] [place] [address] Aleena Hassan Au.D. [address] [place] [address] documented as of this encounter Visit Diagnoses Not on filedocumented in this encounter
--- OUTSIDE RECORDS SUMMARY | 2022-01-31 09:45 | XMS_ITS | Encounter Summary ---
:1955 Author Organization [facility] Address [address] [place] [address] Care Team Providers Name Role Phone Unavailable Primary Care Provider Unavailable Encounter Details Date Type Department Care Team Description 07/11/2007 Hospital Encounter HX [facility] Madison Stanton M.D. [address] [place] [phone] (Wo rk) Social History Tobacco Use Types Packs/Day Years Used Date Smoking Tobacco: Never Assessed Alcohol Habits Answer Date Recorded How often do you have a drink containing 4 or more times a w [place] 07/30/2021 alcohol? How many drinks containing alcohol [...] you attend restorationist or Patient refused 2021 denominational services? 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 [address] [place], [place] [phone] ( rk) 02/22/2022 Office Visit Orthopedic Surgery Kimberlyn Alvarez APRN, C.N.P., D.N.P. [address] [place], [place] [phone] (Wo rk) 03/12/2022 Diagnostic Otorhinolaryngology Blanka Carranza, C.N.P. [address] [place] [address] Aleena Hassan Au.D. [address] [place] [address] documented as of this encounter Visit Diagnoses Not on filedocumented in this encounter
--- OUTSIDE RECORDS SUMMARY | 2022-01-31 09:45 | XMS_ITS | Encounter Summary ---
:1955 Author Organization [facility] Address [address] [place] [address] Care Team Providers Name Role Phone Unavailable Primary Care Provider Unavailable Encounter Details Date Type Department Care Team Description 08/21/2007 Hospital Encounter [facility]X [facility] XRAY Provider, Histori enrique Social History Tobacco Use Types Packs/Day Years Used Date Smoking Tobacco: Never Assessed Alcohol Habits Answer Date Recorded How often do you have a drink containing 4 or more times a w [place] 07/30/2021 alcohol? How many drinks containing alcohol [...] you attend protestant or Patient refused 2021 gnosticist services? 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 [address] [place], [place] [phone] (Wo rk) 02/22/2022 Office Visit Orthopedic Surgery Kimberlyn Alvarez APRN, C.N.P., D.N.P. [address] [place], [place] [phone] (Wo rk) 03/12/2022 Diagnostic Otorhinolaryngology Blanka Carranza, C.N.P. [address] [place] [address] Aleena Hassan Au.D. [address] [place] [address] documented as of this encounter Visit Diagnoses Not on filedocumented in this encounter
--- OUTSIDE RECORDS SUMMARY | 2022-01-31 09:45 | XMS_ITS | Encounter Summary ---
:1955 Author Organization [facility] Address [address] [place] [address] Care Team Providers Name Role Phone Unavailable Primary Care Provider Unavailable Encounter Details Date Type Department Care Team Description 08/21/2007 Hospital Encounter [facility] Madison Stanton M.D. [address] [place] [address] [phone] (Wo rk) Social History Tobacco [...] or relatives? How often do you attend catholic or Patient refused 2021 church services? 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 - 08/21/2007 3:00 PM CDT [id number] Quick Note: ChromaDex message sent to patient Free T4 normal, will just recheck next yr. Source: [facility] [employer] GroupXTRANSFitfully Document Id: [id number] Electronically signed by Conversion, [facility] Chief Hospital Administrator [id number] at 09/09/2016 4:52 AM CDT Lynn Caceres M.D. - 08/21/2007 3:00 PM CDT [id number] Quick Note: ChromaDex message sent to patient Testosterone 85 Source: [facility] [employer] LabsXTRANSXSYS Document Id: [id number] Electronically signed by Conversion, [facility] Chief Hospital Administrator [id number] at 09/09/2016 4:52 AM CDT Lynn Caceres M.D. - 08/21/2007 3:00 PM CDT [id number] Priscilla is a 52 year old here for her annual exam. Obstetric History T0 P0 TAB0 SAB0 E0 M0 L0 using condoms for contraception. 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 Her menses are regular or will skip a month, typical 24-26 d X 2-3 days, no sit cramps, not heavy, had one month of bleeding between cycles HPI: Happy on dose of synthroid, also doing well on testosterone and progesterone PAST MEDICAL HISTORY: Past Medical History Diagnosis Date Female Stress Incontinence Unspecified Hypothyroidism Unspecified Cardiac Dysrhythmia Has some tachycardia, seen foundation relations manager, Takes Atenolol daily Mammographic Microcalcification 01/11/04 rt breast. Benign PAST SURGICAL HISTORY: Past Surgical History Procedure Date Full rout obste care, deliv C/S X 1 Remove tonsils/adenoids,<12 y/o Tonsillectomy and adenoidectomy < age 12 Sling oper stres incontinence 03/23/03 Combined ant/post colporrhaphy 03/23/03 Open treatment metacarpophalangeal dislocation 1 11/21/04 RT Rw department director (abstracted) breast lifts CURRENT MEDICATIONS: Current outpatient prescriptions Medication Sig TESTOSTERONE unsure of stenth,uses cream SYNTHROID 175 MCG OR TABS 1 TABLET DAILY AMBIEN 10 MG OR TABS 1 TABLET AT BEDTIME NEEDED for sleep XENICAL 120 MG OR CAPS 1 CAPSULE THREE TIMES DAILY BEFORE MEALS EPIPEN JIMI 1:1000 IJ 1 TIME ONLY PROGESTERONE 1000 MG/60GM EX CREA 1/4 tsp BID OTC progesterone cream ALLERGIES: Bee, Pollen, Seasonal allergies and Wasp venom FAMILY HX: Family History Problem Relation Breast CA No family hx of Colon CA No family hx of Diabetes No family hx of great uncle Heart Father IN at age 40 Cardiovascular Grandparents - Cardiovascular disease Hypertension Father Stroke No family hx of Alzheimers No family hx of Cancer Father prostat Heart Maternal Grandfather Heart Paternal Grandfather Thyroid Mother reviewed 04/11/2006 ROS: REVIEW OF SYSTEMS: NEUROLOGIC: Negative EYES: Negative ENT: Negative GI: Negative BREAST: Negative : Negative LINE PULLER: Negative CV: Negative PULMONARY: Negative MUSCULOSKELETAL: Negative PSYCH: Negative SOCIAL HISTORY: History Social History Marital Status: Spouse Name: N/A Number of Children: 0 Years of Education: N/A Occupational History [employer], Social History Main Topics Tobacco Use: Quit Quit date: 03/07/2003 was smoking 3-4 cig a day Alcohol Use: 6 oz/week Drug Use: No Sexually Active: Yes -- Male partner(s) Other Topics Concern Blood Transfusions No Caffeine No Sleep Concern No Stress Concern Yes Weight Concern No Diet No Back Care Yes Exercise Yes Seat Belt Yes Self Exams Yes Social History Narrative No narrative on file HEALTH HABITS: calcium intake 2 servings daily, last dT <10 yrs, last lipids perfect this yr, last mammogram 2006 and was normal, last pap last yr and was normal, last eye exam was up to date, last dental exam was up to date PHYSICAL EXAM: This is a well-developed, well-nourished female in no apparent distress. ENT: ENT exam normal, no neck nodes or sinus tenderness. NECK: Supple, no adenopathy and thyroid normal. LUNGS: Normal - Clear to auscultation without rales, rhonchi, or wheezing.. HEART: Regular rate, rhythm and No murmur, rub, gallop. BREASTS: No masses, skin, nipple or axillary changes. ABDOMEN: Benign, Soft, flat, non-tender, No masses, organomegaly, No inguinal nodes and Bowel soundsnormoactive. PELVIC EXAM: Lymph: no enlarged groin nodes External genitalia: normal development, normal BUS, no lesions Perineum: normal skin, no lesions, good support Urethra meatus: normal , no lesion or caruncle Urethra: normal, nontender Bladder: nontender, no masses, not enlarged Vagina:normal mucosa and ruggae, no lesions not atrophic Cervix:primiparous and no lesions Uterus: smooth, firm, mobile, without irregularities mid to anteverted Adnexa: not palpable RV: not indicated Rectum: no hemorrhoids, no bleeding EXTREMITIES: Normal. NEUROLOGIC: Normal. 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 2. Back pain-has seen chiropractor, massage therapist. Will try flexaril prn, side effects discussed, consult PT. 3. Hypothyroidism-had a high fT4 in Apr 2007, couldn't get into her mychart so didn't get the lower dose of synthroid NYDIA. She feels so good on this dose that she doesn't want to decrease it unless really necessary. -will check FT4 today, if it's still high, will alternate .175 and 0.150 mg synthroid NYDIA and repeatin 6 weeks. 4. Compouned HRT-using different MD, could be throwing off TFTs. Will check testosterone level today. Health maintenance includes: pap smear done today and mammogram. She agrees to get colonoscopy done at [place], still has the prep. Refilled epipen (twin jet), xenical (uses this when she travels), and ambien (when she travels) Source: [facility] RWHXTRANSXRTFSYS Document Id: [id number] Electronically signed by Conversion, [facility] Chief Hospital Administrator [id number] at 09/09/2016 4:52 AM CDT documented in this encounter Miscellaneous Notes Miscellaneous - Conversion, Historical Provider Ser - 08/21/2007 3:00 PM CDT [id number] Priscilla Fitzpatrick [address] [place] [address] August 26, 2007 Dear Priscilla Fitzpatrick, I am happy to inform you that your recent cervical cancer screening test (PAP smear) was normal. Preventative screening such as this helps insure your health for years to come. Congratulations for taking care of yourself! Please contact my office if you have any further questions. [phone]. Sincerely, Lynn Caceres M.D. OBSTETRICS/GYNECOLOGY [facility] Source: [facility]XTRANSXRTFS[facility] Document Id: [id number] documented in this encounter Plan of Treatment Upcoming Encounters Date Type Specialty Care Team Description 02/02/2022 Immunization Family Medicine 02/12/2022 Office Visit Dermatology Lacy Dykes M.D. [address] [place], [place] [phone] (Wo rk) 02/22/2022 Office Visit Orthopedic Surgery Kimberlyn Alvarez APRN, C.N.P., D.N.P. [address] [place], [place] [phone] (Wo rk) 03/12/2022 Diagnostic Otorhinolaryngology Blanka Carranza, C.N.P. [address] [place] [address] Aleena Hassan Au.D. [address] [place] [address] documented as of this encounter Visit Diagnoses Not on filedocumented in this encounter
--- OUTSIDE RECORDS SUMMARY | 2022-01-31 09:45 | XMS_ITS | Encounter Summary ---
:1955 Author Organization [facility] Address [address] [place] [address] Care Team Providers Name Role Phone Unavailable Primary Care Provider Unavailable Encounter Details Date Type Department Care Team Description 09/24/2007 Hospital Encounter HX [facility] Madison Stanton M.D. [address] [place] [address] [phone] (Wo rk) Social History Tobacco Use Types Packs/Day Years Used Date Smoking Tobacco: Never Assessed Alcohol Habits Answer Date Recorded How often do you have a drink containing 4 or more times a w ruby 07/30/2021 alcohol? How many drinks containing alcohol [...] you attend spiritism or Patient refused 2021 anabaptist services? 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 - 09/24/2007 12:00 AM CDT [id number] Patient called clinic by mistake and was requesting to schedule colonoscopy. She is unable to do this in [place] so will need to schedule here. Source: [facility] Document Id: [id number] Electronically signed by Conversion, [facility] Chain Maker Machine [id number] at 09/09/2016 3:00 AM CDT Telephone Encounter - Jessica Nguyễn L.P.N. - 09/24/2007 12:00 AM CDT [id number] Needs oreders placed and then forward to schedulers/ Source: [facility] Document Id: [id number] Electronically signed by Conversion, [facility] Chain Maker Machine [id number] at 09/09/2016 3:00 AM CDT Telephone Encounter - Lynn Caceres M.D. - 09/24/2007 12:00 AM CDT [id number] Done, pls inform Source: [facility] Document Id: [id number] Electronically signed by Conversion, [facility] Chain Maker Machine [id number] at 09/09/2016 3:00 AM CDT documented in this encounter Plan of Treatment Upcoming Encounters Date Type Specialty Care Team Description 02/02/2022 Immunization Family Medicine 02/12/2022 Office Visit Dermatology Lacy Dykes M.D. [address] [place] [address] [phone] (Wo rk) 02/22/2022 Office Visit Orthopedic Surgery Kimberlyn Alvarez APRN C.N.P., D.N.P. [address] [place], [place] [phone] (Wo rk) 03/12/2022 Diagnostic Otorhinolaryngology Blanka Carranza, C.N.P. [address] [place], [place] [id number] Aleena Hassan Au.D. [address] [place] [address] documented as of this encounter Visit Diagnoses Not on filedocumented in this encounter
--- OUTSIDE RECORDS SUMMARY | 2022-01-31 09:45 | XMS_ITS | Encounter Summary ---
:1955 Author Organization [facility] Address [address] [place] [address] Care Team Providers Name Role Phone Unavailable Primary Care Provider Unavailable Encounter Details Date Type Department Care Team Description 04/11/2006 Hospital Encounter HX [facility] Madison Stanton M.D. [address] [place] [address] [phone] (Wo rk) Social History Tobacco [...] you attend gnosticism or Patient refused 2021 congregational services? 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 - 04/11/2006 10:15 AM CST [id number] Quick Note: Letter sent, TSH low but FT4 normal, no change in meds Source: [facility] RWHXTRANSXSYS Document Id: [id number] Electronically signed by Conversion, [facility] Phlebotomy Lab Assistant [id number] at 09/09/2016 7:26 AM CDT Lynn Caceres M.D. - 04/11/2006 10:15 AM CST [id number] Ms Fitzpatrick is a 50 year old Obstetric History T0 P0 TAB0 SAB0 E0 M0 L0 , perimenopausal woman in for annual exam. HPI: She is still having regular menses every month, no Break through bleeding, is using progesterone cream. 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 Benign SURGICAL HISTORY:Past Surgical History Procedure Date Full rout obste care, deliv C/S X 1 Remove tonsils/adenoids,<12 y/o Tonsillectomy and adenoidectomy < age 12 Sling oper stres incontinence 03/23/03 Combined ant/post colporrhaphy 03/23/03 Open rx mc-p disloc 11/21/04 RT Rw occupational therapist [place] (abstracted) breast lifts CURRENT MEDICATIONS:Current outpatient prescriptions Medication Sig AMBIEN 10 MG OR TABS 1 TABLET AT BEDTIME NEEDED for sleep SYNTHROID 175 MCG OR TABS one daily XENICAL 120 MG OR CAPS 1 CAPSULE THREE TIMES DAILY BEFORE MEALS FLEET PHOSPHO-SODA 18-48 GM/100ML OR SOLN Per Instructions BISACODYL 5 MG OR TBEC 4 tabs as directed SYNTHROID 175 MCG OR TABS one daily XENICAL 120 MG OR CAPS 1 CAPSULE THREE TIMES DAILY BEFORE MEALS ALLERGIES:Bee, Pollen, Seasonal allergies and Wasp venom REVIEW OF SYSTEMS: NEUROLOGIC: negative. EYES: negative. ENT: negative. GI: negative. BREAST: negative. : negative. 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 CV: negative. PULMONARY: negative. MUSCULOSKELETAL: negative. PSYCH: negative. FAMILY HISTORY: Family History Problem [...] HISTORY:History Social History Marital Status: Spouse Name: N/A Number of Children: N/A Years of Education: N/A Occupational History [employer], Social History Main Topics Tobacco Use: Quit Quit date: 03/07/2003 was smoking 3-4 cig a day Alcohol Use: 6.0 oz/week Drug Use: No Sexually Active: Yes -- Male partner(s) Other Topics Concern Blood Transfusions No Caffeine No Sleep Concern No Stress Concern Yes Weight Concern No Diet No Back Care Yes Exercise Yes Seat Belt Yes Self Exams Yes Social History Narrative No narrative on file HEALTH MAINTENANCE: last pap was 2004, last mammogram was 2004, last lipids 2004 and were excellent,colon cancer screening bot done yet, calcium intake adequate, last dental exam up to date, last eye exam >2 yrs, last dT >9 yrs. PHYSICAL EXAMINATION: Vitals as above Well-developed, well-nourished woman in NAD HEENT: negative ENT: ENT exam normal, no neck nodes or sinus tenderness Neck: Supple, no adenopathy and thyroid normal LUNGS: Normal - CTA without rales, rhonchi, or wheezing. BACK: no spinal or CVAT HEART: Regular rate, rhythm and No murmur, rub, gallop BREAST: No masses, skin, nipple or axillary changes, status post reduction mammoplasty ABDOMEN: Benign, Soft, flat, non-tender, No masses, organomegaly, No inguinal nodes and Bowel soundsnormoactive PELVIC EXAM: Lymph: no enlarged groin nodes External genitalia: normal development, normal BUS, no lesions Perineum: normal skin, no lesions, good support Urethra meatus: normal , no lesion or caruncle Urethra: normal, nontender Bladder: nontender, no masses, not enlarged Vagina:normal mucosa and ruggae, no lesions notrophic Cervix:multiparous and no lesions Uterus: smooth, firm, mobile, without irregularities anteverted Adnexa: non tender, 2 x 3 bilateral without abnormality RV: refuses Rectum: no hemorrhoids, no bleeding EXTREMITIES: Normal NEUROLOGIC: Normal SKIN: scattered benign nevi IMPRESSION: Annual gynecologic health maintenance examination in a healthy premenopausal woman-had some sleep issues that resolved with daily progesterone cream. 2. history of tachycardia-no recent symptoms PLAN: pap smear done today, mammogram, colonoscopy, tetanus vaccine and will get FBS done in [place] (ask nurse to call for order) 2. TSH, refilled synthroid. Feels best with high/normal FT4. 3. Wasp anaphylaxis-refilled epipen 4. Uses xenical with traveling. Takes ambien once in awhile at 3am if unable to sleep Source: [facility] Document Id: [id number] Electronically signed by Conversion, [facility] Phlebotomy Lab Assistant [id number] at 09/09/2016 7:26 AM CDT documented in this encounter Miscellaneous Notes Miscellaneous - Lynn Caceres M.D. - 04/11/2006 10:15 AM CST [id number] Priscilla [place] [address] [place] [address] April 14, 2006 Dear Priscilla: I am writing to inform you the results of the laboratory tests you had done during your recent visitto the clinic. No change needed in your thyroid medication. The TSH is low but there free T4 is in the normal range. The results of your recent lab(s) were: Office Visit on 04/11/2006 Component Date Value Range Status TSH (mU/L) 04/11/2006 <0.03* 0.4-5.0 Final T4, free serum (ng/dL) 04/11/2006 1.34 0.70-1.85 Final It was a pleasure to see you in the clinic. If you have any further questions or problems, please contact our office at [phone]. 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 Preventative screening such as this helps insure your health for years to come. Congratulations for taking care of yourself! Please contact my office if you have any further questions. [phone]. Sincerely, Lynn Caceres M.D. OBSTETRICS/GYNECOLOGY [facility] Source: [facility] Document Id: [id number] documented in this encounter Plan of Treatment Upcoming Encounters Date Type Specialty Care Team Description 02/02/2022 Immunization Family Medicine 02/12/2022 Office Visit Dermatology Lacy Dykes M.D. [address] [place], [place] [phone] (Lisha mccann) 02/22/2022 Office Visit Orthopedic Surgery Kimberlyn Alvarez APRN, C.N.P., D.N.P. [address] [place] [phone] (Lisha mccann) 03/12/2022 Diagnostic Otorhinolaryngology Blanka Carranza, CPhilNPhilPPhil [address] [place] [address] Aleena Hassan Au.D. [address] [place] [phone] documented as of this encounter Visit Diagnoses Not on filedocumented in this encounter
--- OUTSIDE RECORDS SUMMARY | 2022-01-31 09:45 | XMS_ITS | Encounter Summary ---
:1955 Author Organization [facility] Address [address] [place] [address] Care Team Providers Name Role Phone Unavailable Primary Care Provider Unavailable Encounter Details Date Type Department Care Team Description 04/11/2006 Hospital Encounter HX NO MAPPING Provider, Historical [...] you attend pentecostal or Patient refused 2021 hinduism services? 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 [address] [place], [place] [phone] (Wo rk) 02/22/2022 Office Visit Orthopedic Surgery Kimberlyn Alvarez APRN, C.N.P., D.N.P. [address] [place], [place] [phone] (Wo rk) 03/12/2022 Diagnostic Otorhinolaryngology Blanka Carranza, C.N.P. [address] [place] [address] Aleena Hassan Au.D. [address] [place] [phone] documented as of this encounter Visit Diagnoses Not on filedocumented in this encounter
--- OUTSIDE RECORDS SUMMARY | 2022-01-31 09:45 | XMS_ITS | Encounter Summary ---
:1955 Author Organization [facility] Address [address] [place] [address] Care Team Providers Name Role Phone Unavailable Primary Care Provider Unavailable Encounter Details Date Type Department Care Team Description 10/16/2007 Hospital Encounter HX [facility] Hugo Still, L.P.N. [address] [place], [place] [address] Social History Tobacco Use Types Packs/Day Years Used Date Smoking Tobacco: Never Assessed Alcohol Habits Answer Date Recorded How often do you have a drink containing 4 or more times a w spirit [place] 07/30/2021 alcohol? How many drinks containing [...] you attend mu-ism or Patient refused 2021 pentecostalism services? 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 - 10/16/2007 12:00 AM CDT [id number] Pharmacy request refill on Synthroid. Accepting this Rx will FAX it directly to the pharmacy. Thank You! [facility]: [facility] Document Id: [id number] documented in this encounter Plan of Treatment Upcoming Encounters Date Type Specialty Care Team Description 02/02/2022 Immunization Family Medicine 02/12/2022 Office Visit Dermatology Lacy Dykes M.D. [address] [place], [place] [phone] (Wo rk) 02/22/2022 Office Visit Orthopedic Surgery Kimberlyn Alvarez APRN, C.N.P., D.N.P. [address] [place], [place] [phone] (Wo rk) 03/12/2022 Diagnostic Otorhinolaryngology Blanka Carranza, C.N.P. [address] [place] [address] Aleena Hassan Au.D. [address] [place] [address] documented as of this encounter Visit Diagnoses Not on filedocumented in this encounter
--- OUTSIDE RECORDS SUMMARY | 2022-01-31 09:45 | XMS_ITS | Encounter Summary ---
:1955 Author Organization [facility] Address [address] [place] [address] Care Team Providers Name Role Phone Unavailable Primary Care Provider Unavailable Encounter Details Date Type Department Care Team Description 08/21/2007 Hospital Encounter HX [facility] Madison Stanton M.D. [address] [place] [phone] (Wo rk) Social History Tobacco Use Types Packs/Day Years Used Date Smoking Tobacco: Never Assessed Alcohol Habits Answer Date Recorded How often do you have a drink containing 4 or more times a w [place] 07/30/2021 alcohol? How many drinks containing alcohol [...] attend roman catholic or Patient refused 2021 episcopal services? 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 [address] [place], [place] [phone] ( rk) 02/22/2022 Office Visit Orthopedic Surgery Kimberlyn Alvarez APRN, C.N.P., D.N.P. [address] [place], [place] [phone] (Wo rk) 03/12/2022 Diagnostic Otorhinolaryngology Blanka Carranza, C.N.P. [address] [place] [address] Aleena Hassan Au.D. [address] [place] [phone] documented as of this encounter Visit Diagnoses Not on filedocumented in this encounter
--- OUTSIDE RECORDS SUMMARY | 2022-01-31 09:45 | XMS_ITS | Encounter Summary ---
:1955 Author Organization [facility] Address [address] [place] [address] Care Team Providers Name Role Phone Unavailable Primary Care Provider Unavailable Encounter Details Date Type Department Care Team Description 08/26/2007 Hospital Encounter [facility] Jessica Sanders, L.P.N. [address] [place], [place] [phone] Social History Tobacco Use Types Packs/Day Years Used Date Smoking Tobacco: Never Assessed Alcohol Habits Answer Date Recorded How often do you have a drink containing 4 or more times a w y[place]at 07/30/2021 alcohol? How many drinks containing alcohol [...] you attend buddhist or Patient refused 2021 presybeterian services? 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 - 08/26/2007 12:00 AM CDT [id number] FYI: I scheduled a colonoscopy for Priscilla in [place] for 09/15. They will take care of getting her the prep meds and instructions. Source: [facility] Document Id: [id number] Electronically signed by Jennifer, [facility] User Experience Developer [id number] at 09/09/2016 4:52 AM CDT documented in this encounter Plan of Treatment Upcoming Encounters Date Type Specialty Care Team Description 02/02/2022 Immunization Family Medicine 02/12/2022 Office Visit Dermatology Lacy Dykes M.D. [address] [place], [place] [phone] (Wo rk) 02/22/2022 Office Visit Orthopedic Surgery Kimberlyn Alvarez APRN, C.N.P., D.N.P. [address] [place], [place] [phone] (Wo rk) 03/12/2022 Diagnostic Otorhinolaryngology Blanka Carranza, C.N.P. [address] [place] [address] Aleena Hassan Au.D. [address] [place] [phone] documented as of this encounter Visit Diagnoses Not on filedocumented in this encounter
--- OUTSIDE RECORDS SUMMARY | 2022-01-31 09:45 | XMS_ITS | Encounter Summary ---
:1955 Author Organization [facility] Address [address] [place] [address] Care Team Providers Name Role Phone Unavailable Primary Care Provider Unavailable Encounter Details Date Type Department Care Team Description 04/08/[address] [facility] Madison Stanton M.D. [address] [place] [phone] (Wo rk) Social History Tobacco Use Types Packs/Day Years Used Date Smoking Tobacco: Never Assessed Alcohol Habits Answer Date Recorded How often do you have a drink containing 4 or more times a w ohog[place] 07/30/2021 alcohol? How many drinks containing alcohol [...] you attend pentecostalism or Patient refused 2021 gnosticism services? 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 Source: [facility] RWHXTRANSXRTFSYS Document Id: [id number] documented in this encounter Plan of Treatment Upcoming Encounters Date Type Specialty Care Team Description 02/02/2022 Immunization Family Medicine 02/12/2022 Office Visit Dermatology Lacy Dykes M.D. [address] [place], [place] [phone] (Wo rk) 02/22/2022 Office Visit Orthopedic Surgery Kimberlyn Alvarez APRN, C.N.P., D.N.P. [address] [place], [place] [phone] (Wo rk) 03/12/2022 Diagnostic Otorhinolaryngology Blanka Carranza, C.N.P. [address] [place] [address] Aleena Hassan Au.D. [address] [place] [phone] documented as of this encounter Visit Diagnoses Not on filedocumented in this encounter
--- OUTSIDE RECORDS SUMMARY | 2022-01-31 09:45 | XMS_ITS | Encounter Summary ---
:1955 Author Organization [facility] Address [address] [place] [address] Care Team Providers Name Role Phone Unavailable Primary Care Provider Unavailable Encounter Details Date Type Department Care Team Description 07/10/[address] [facility] Madison Stanton M.D. [address] [place] [phone] (Wo rk) Social History Tobacco Use Types Packs/Day Years Used Date Smoking Tobacco: Never Assessed Alcohol Habits Answer Date Recorded How often do you have a drink containing 4 or more times a w makah 07/30/2021 alcohol? How many drinks containing alcohol [...] you attend pentecostal or Patient refused 2021 roman catholic services? 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 - 07/10/2007 12:00 AM CDT [id number] Addended by: DOUG KUMARI on: 07/10/2007 8:04:19 AM Modules accepted: Orders Source: [facility] Document Id: [id number] documented in this encounter Plan of Treatment Upcoming Encounters Date Type Specialty Care Team Description 02/02/2022 Immunization Family Medicine 02/12/2022 Office Visit Dermatology Lacy Dykes M.D. [address] [place], [place] [phone] (Wo rk) 02/22/2022 Office Visit Orthopedic Surgery Kimberlyn Alvarez APRN, C.N.P., D.N.P. [address] [place], [place] [phone] (Wo rk) 03/12/2022 Diagnostic Otorhinolaryngology Blanka Carranza, C.N.P. [address] [place], [place] [phone] Aleena Hassan Au.D. [address] [place] [phone] documented as of this encounter Visit Diagnoses Not on filedocumented in this encounter
--- OUTSIDE RECORDS SUMMARY | 2022-01-31 09:45 | XMS_ITS | Encounter Summary ---
:1955 Author Organization [facility] Address [address] [place] [address] Care Team Providers Name Role Phone Unavailable Primary Care Provider Unavailable Encounter Details Date Type Department Care Team Description 12/09/2006 Hospital Encounter HX [facility] Rebekah Timmons M.D. [address] [place], [place] [address] (Wo rk) Social History Tobacco Use Types Packs/Day Years Used Date Smoking Tobacco: Never Assessed Alcohol Habits Answer Date Recorded How often do you have a drink containing 4 or more times a w otoe-[place]ou[place] 07/30/2021 alcohol? How many drinks containing alcohol [...] you attend adventism or Patient refused 2021 catholic services? 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 [address] [place], [place] [phone] ( rk) 02/22/2022 Office Visit Orthopedic Surgery Kimberlyn Alvarez APRN, C.N.P., D.N.P. [address] [place], [place] [phone] (Wo rk) 03/12/2022 Diagnostic Otorhinolaryngology Blanka Carranza, C.N.P. [address] [place] [address] Aleena Hassan Au.D. [address] [place] [phone] documented as of this encounter Visit Diagnoses Not on filedocumented in this encounter
--- OUTSIDE RECORDS SUMMARY | 2022-01-31 09:45 | XMS_ITS | Encounter Summary ---
:[address] [facility] Address [address] [place] [address] Care Team Providers Name Role Phone Unavailable Primary Care Provider Unavailable Encounter Details Date Type Department Care Team Description 10/13/2007 Hospital Encounter HX NO MAPPING Provider, Historical Social History Tobacco Use Types Packs/Day Years Used Date Smoking Tobacco: Never Assessed Alcohol Habits Answer Date Recorded How often do you have a drink containing 4 or more times a w [place] 07/30/2021 alcohol? How many drinks containing alcohol [...] you attend jain or Patient refused 2021 yarsani services? 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 [address] [place], [place] [phone] (Wo rk) 02/22/2022 Office Visit Orthopedic Surgery Kimberlyn Alvarez APRN, C.N.P., D.N.P. [address] [place], [place] [phone] (Wo rk) 03/12/2022 Diagnostic Otorhinolaryngology Blanka Carranza, C.N.P. [address] [place] [address] Aleena Hassan Au.D. [address] [place] [phone] documented as of this encounter Visit Diagnoses Not on filedocumented in this encounter
--- OUTSIDE RECORDS SUMMARY | 2022-01-31 09:46 | XMS_ITS | Encounter Summary ---
:[address] [facility] Address [address] [place] [address] Care Team Providers Name Role Phone Unavailable Primary Care Provider Unavailable Encounter Details Date Type Department Care Team Description 01/28/2005 - Hospital Encounter HX NO MAPPING Cedric Sweneey, 06/10/2005 Sudarshan [address] [place] [address] (Wo rk) Social History Tobacco Use Types Packs/Day Years Used Date Smoking Tobacco: Never Assessed Alcohol Habits Answer Date Recorded How often do you have a drink containing 4 or more times a w jena 07/30/2021 alcohol? How many drinks containing alcohol [...] attend latter day or Patient refused 2021 taoism services? 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 [address] [place], [place] [phone] ([facility]) 02/22/2022 Office Visit Orthopedic Surgery Kimberlyn Alvarez APRN, C.N.P., D.N.P. [address] [place], [place] [phone] (Wo rk) 03/12/2022 Diagnostic Otorhinolaryngology Blanka Carranza, C.N.P. [address] [place] [address] Aleena Hassan Au.D. [address] [place] [phone] documented as of this encounter Visit Diagnoses Not on filedocumented in this encounter
--- OUTSIDE RECORDS SUMMARY | 2022-01-31 09:46 | XMS_ITS | Encounter Summary ---
:1955 Author Organization [facility] Address [address] [place] [address] Care Team Providers Name Role Phone Unavailable Primary Care Provider Unavailable Encounter Details Date Type Department Care Team Description 01/11/2004 Hospital Encounter HX NO MAPPING Provider, Historical [...] you attend druze or Patient refused 2021 lutheran services? 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 [address] [place], [place] [phone] (Wo rk) 02/22/2022 Office Visit Orthopedic Surgery Kimberlyn Alvarez APRN, C.N.P., D.N.P. [address] [place], [place] [phone] (Wo rk) 03/12/2022 Diagnostic Otorhinolaryngology Blanka Carranza, C.N.P. [address] [place] [address] Aleena Hassan Au.D. [address] [place] [phone] documented as of this encounter Visit Diagnoses Not on filedocumented in this encounter
--- OUTSIDE RECORDS SUMMARY | 2022-01-31 09:46 | XMS_ITS | Encounter Summary ---
:1955 Author Organization [facility] Address [address] [place] [address] Care Team Providers Name Role Phone Unavailable Primary Care Provider Unavailable Encounter Details Date Type Department Care Team Description 12/13/2004 Hospital Encounter HX [facility] Kannan Arroyo P.A.AntonioC. Social History Tobacco Use Types Packs/Day Years [...] you attend evangelical or Patient refused 2021 nondenominational services? 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 Fitzpatrick is a pleasant 49-year-old female who is about three weeks out from a bony gamekeeper's injury to her right thumb with repair that was performed by Dr. Sweeney. I believe this was performed at [facility]. The patient does present today in a thumb immobilizing cast that does not extend beyond the wrist. She states that things have been going well, that she has not been having significant discomfort. OBJECTIVE: On examination, the cast was removed carefully so as to avoid disrupting the pin placement. CMS of the hand was intact. The sutures were removed today. There is a fair amount of granulation tissue around the incision sites but this does appear to be healing well with no evidence of infection. Repeat x-rays were taken today and reviewed by myself as well as Dr. Sweeney. It is felt that there may be a small amount of callus formation on the distal portion of the proximal phalanx of the thumb but the bony fragment that was repaired appears to have maintained position quite nicely. ASSESSMENT / PLAN: 49-year-old female three weeks status post a bony gamekeeper's thumb injury repaired by Dr. Sweeney. Patient is doing well. As stated, the sutures were removed. At this point in time, another thumb immobilizing cast was placed. This again did not extend below the wrist. It was discussed with her and Dr. Sweeney that he would like to see her back in about two weeks, perhaps over in [place], for pin removal. The patient demonstrated understanding of this and will make an appointment to see him at that time. VINH Baez/senthil cc: Source: [facility] Document Id: [id number] documented in this encounter Plan of Treatment Upcoming Encounters Date Type Specialty Care Team Description 02/02/2022 Immunization Family Medicine 02/12/2022 Office Visit Dermatology Lacy Dykes M.D. [address] [place], [place] [phone] (Wo rk) 02/22/2022 Office Visit Orthopedic Surgery Kimberlyn Alvarez APRN, C.N.P., D.N.P. [address] [place], [place] [phone] (Wo rk) 03/12/2022 Diagnostic Otorhinolaryngology Blanka Carranza, C.N.P. [address] [place], [place] [phone] Aleena Hassan Au.D. [address] [place] [phone] documented as of this encounter Visit Diagnoses Not on filedocumented in this encounter
--- OUTSIDE RECORDS SUMMARY | 2022-01-31 09:46 | XMS_ITS | Encounter Summary ---
:1955 Author Organization [facility] Address [address] [place] [address] Care Team Providers Name Role Phone Unavailable Primary Care Provider Unavailable Encounter Details Date Type Department Care Team Description 11/29/2004 Hospital Encounter HX [facility] Kannan Arroyo P.A.AntonioC. Social History Tobacco Use [...] you attend caodaism or Patient refused 2021 oriental orthodox services? 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 Fitzpatrick is a very pleasant 49-year-old female who presents today for followup of, what I believe is, a bony gamekeeper's thumb injury that was pinned and repaired by Dr. Sweeney about one week ago in [place]. I do not have the operative note at this visit, but the patient was briefly discussed with Dr. Sweeney and this indeed is what was performed. She is in some discomfort right now. She does present in a splint today, but overall it sounds like she is recovering quite well. PHYSICAL EXAMINATION: CMS is intact. There are two percutaneous pins present. The sutured skin appears to be intact and healing well with a little bit of granulation tissue. No evidence of infection. It is not felt that they are quite ready to come out at this time. X-rays were taken today and reviewed by myself as well as Dr. Sweeney. It is felt that the pins are holding the avulsed fragment in good alignment. ASSESSMENT/PLAN: Zcuhs-ckis-jiom-old female about a week out from pinning of a bony gamekeeper's injury on the right thumb. This was fixed by Dr. Sweeney in [place]. Ms. Fitzpatrick at this visit was placed in a cast, which did not cross the wrist joint; however, did completely protect the thumb. She also was given a card for airport security as she travels a lot for her job in order to inform them that she does have metal pins beneath her cast. She also was given a handicap permit to be used sparingly, but if necessary, for times when she does have a lot of luggage. Dr. Sweeney does not want her to have to walk long distances while grasping heavy objects such as those. She did request a sling; however, prior to her leaving it actually escaped my mind so if she does call or return, we certainly would be more than happy to get her one in order to help keep her arm steady while she is running. She is a very active individual and would like to continue to do so as long as she could. She will return in two weeks for cast removal and repeat x-rays. Extra caution should be taken in removing the cast because of the pins that are placed. VINH Baez/guerita cc: Source: [facility] BILOXIHXTRANSXSYS Document Id: [id number] Electronically signed by Conversion, [facility] Artists' Booking Representative [id number] at 09/09/2016 11:45 PM CDT documented in this encounter Plan of Treatment Upcoming Encounters Date Type Specialty Care Team Description 02/02/2022 Immunization Family Medicine 02/12/2022 Office Visit Dermatology Lacy Dykes M.D. [address] [place], [place] [phone] ([facility]) 02/22/2022 Office Visit Orthopedic Surgery Kimberlyn Alvarez APRN, C.N.P., D.N.P. [address] [place], [place] [phone] (Wo rk) 03/12/2022 Diagnostic Otorhinolaryngology Blanka Carranza, C.N.P. [address] [place] [address] Aleena Hassan Au.D. [address] [place] [phone] documented as of this encounter Visit Diagnoses Not on filedocumented in this encounter
--- OUTSIDE RECORDS SUMMARY | 2022-01-31 09:46 | XMS_ITS | Encounter Summary ---
:1955 Author Organization [facility] Address [address] [place] [address] Care Team Providers Name Role Phone Unavailable Primary Care Provider Unavailable Encounter Details Date Type Department Care Team Description 02/10/2006 Hospital Encounter HX [facility] Madison Stanton M.D. [address] [place] [phone] (Wo rk) Social History Tobacco [...] you attend orthodox or Patient refused 2021 congregation services? 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 Source: [facility] Document Id: [id number] Telephone Encounter - Conversion, Historical Provider Ser - 02/10/2006 12:00 AM CST [id number] Accepting this Rx will FAX it directly to the pharmacy. Source: [facility] Document Id: [id number] documented in this encounter Plan of Treatment Upcoming Encounters Date Type Specialty Care Team Description 02/02/2022 Immunization Family Medicine 02/12/2022 Office Visit Dermatology Lacy Dykes M.D. [address] [place], [place] [phone] (Wo rk) 02/22/2022 Office Visit Orthopedic Surgery Kimberlyn Alvarez APRN, C.N.P., D.N.P. [address] [place], [place] [phone] (Wo rk) 03/12/2022 Diagnostic Otorhinolaryngology Blanka Carranza, C.N.P. [address] [place] [address] Aleena Hassan Au.D. [address] [place] [phone] documented as of this encounter Visit Diagnoses Not on filedocumented in this encounter
--- OUTSIDE RECORDS SUMMARY | 2022-01-31 09:46 | XMS_ITS | Encounter Summary ---
:1955 Author Organization [facility] Address [address] [place] [address] Care Team Providers Name Role Phone Unavailable Primary Care Provider Unavailable Encounter Details Date Type Department Care Team Description 11/13/2004 Hospital Encounter HX NO MAPPING Provider, Historical [...] you attend baptist or Patient refused 2021 yarsani services? 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 [address] [place], [place] [phone] (Wo rk) 02/22/2022 Office Visit Orthopedic Surgery Kimberlyn Alvarez APRN, C.N.P., D.N.P. [address] [place], [place] [phone] (Wo rk) 03/12/2022 Diagnostic Otorhinolaryngology Blanka Carranza, C.N.P. [address] [place] [address] Aleena Hassan Au.D. [address] [place] [phone] documented as of this encounter Visit Diagnoses Not on filedocumented in this encounter
--- OUTSIDE RECORDS SUMMARY | 2022-01-31 09:46 | XMS_ITS | Encounter Summary ---
:1955 Author Organization [facility] Address [address] [place] [address] Care Team Providers Name Role Phone Unavailable Primary Care Provider Unavailable Encounter Details Date Type Department Care Team Description 01/28/2005 Hospital Encounter HX [facility] Kannan Arroyo P.A.AntonioC. Social History Tobacco Use [...] you attend episcopal or Patient refused 2021 orthodox services? 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 Fitzpatrick is a very pleasant 49-year-old female who is about 2 months status-post a bony gamekeepers injury to her right thumb that was surgically repaired by Dr. Sweeney. Patient is really doing quite well at this point in time. Her only real questions are that of when she is going to be able to return to lifting weights. On EXAMINATION there is really no tenderness to palpation anywhere about the thumb specifically about the ulnar collateral ligament and stressing of the ligament produces no laxity and has a very firm endpoint. The patient's range of motion of the thumb is significantly reduced as would be expected from being in thumb spica type cast for the last 6-8 weeks and CMS of the hand is intact. ASSESSMENT AND PLAN: 49-year-old female about 2 months status-post bony gamekeeper injury to her right thumb. After today's visit she has an appointment up in Occupational therapy where they hopefully will make her a thumb spica type splint that she could remove to work on gentle range of motion activities. If she has any questions or concerns she can call or return at any time. Otherwise it was discussed between her and Dr. Sweeney that she will make a follow-up appointment in the next few weeks either here or at [facility] to insure that things are progressing satisfactorily. VINH Baez/eboni cc: Source: [facility] RWHXTRANSXSYS Document Id: [id number] documented in this encounter Plan of Treatment Upcoming Encounters Date Type Specialty Care Team Description 02/02/2022 Immunization Family Medicine 02/12/2022 Office Visit Dermatology Lacy Dykes M.D. [address] [place], [place] [phone] (Wo rk) 02/22/2022 Office Visit Orthopedic Surgery Kimberlyn Alvarez APRN C.N.P., D.N.P. [address] [place], [place] [phone] ( rk) 03/12/2022 Diagnostic Otorhinolaryngology Blanka Carranza, C.N.P. [address] [place], [place] [phone] Aleena Hassan Au.D. [address] [place] [phone] documented as of this encounter Visit Diagnoses Not on filedocumented in this encounter
--- OUTSIDE RECORDS SUMMARY | 2022-01-31 09:46 | XMS_ITS | Encounter Summary ---
:1955 Author Organization [facility] Address [address] [place] [address] Care Team Providers Name Role Phone Unavailable Primary Care Provider Unavailable Encounter Details Date Type Department Care Team Description 02/26/2005 Hospital Encounter HX NO MAPPING Provider, Historical Social History Tobacco Use Types Packs/Day Years Used Date Smoking Tobacco: Never Assessed Alcohol Habits Answer Date Recorded How often do you have a drink containing 4 or more times a w [place] 07/30/2021 alcohol? How many drinks containing alcohol [...] you attend hindu or Patient refused 2021 cheondoism services? 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 [address] [place], [place] [phone] (Wo rk) 02/22/2022 Office Visit Orthopedic Surgery Kimberlyn Alvarez APRN, C.N.P., D.N.P. [address] [place], [place] [phone] (Wo rk) 03/12/2022 Diagnostic Otorhinolaryngology Blanka Carranza, C.N.P. [address] [place] [address] Aleena Hassan Au.D. [address] [place] [phone] documented as of this encounter Visit Diagnoses Not on filedocumented in this encounter
--- OUTSIDE RECORDS SUMMARY | 2022-01-31 09:46 | XMS_ITS | Encounter Summary ---
:1955 Author Organization [facility] Address [address] [place] [address] Care Team Providers Name Role Phone Unavailable Primary Care Provider Unavailable Encounter Details Date Type Department Care Team Description 01/10/2004 Hospital Encounter HX NO MAPPING Provider, Historical [...] you attend catholic or Patient refused 2021 rastafarian services? 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 Miscellaneous Notes Miscellaneous - Conversion, Historical Provider Ser - 01/10/2004 12:00 AM CDT [id number] Date of R/C request: [id number] disclosed to: Pt to hand carry [facility], by rad deptDescri ption of Disclosure: radiology films, by niels deptPurpose of Disclosure: continuing medical care Authorization: Yes - date authorization signed: [id number] of pages: 0Person processing requ est: Cristhian Alarcon [facility] Document Id: [id number] documented in this encounter Plan of Treatment Upcoming Encounters Date Type Specialty Care Team Description 02/02/2022 Immunization Family Medicine 02/12/2022 Office Visit Dermatology Lacy Dykes M.D. [address] [place], [place] [phone] (Wo rk) 02/22/2022 Office Visit Orthopedic Surgery Kimberlyn Alvarez APRN, C.N.P., D.N.P. [address] [place], [place] [phone] (Wo rk) 03/12/2022 Diagnostic Otorhinolaryngology Blanka Carranza, C.N.P. [address] [place], [place] [id number] Aleena Hassan Au.D. [address] [place] [phone] documented as of this encounter Visit Diagnoses Not on filedocumented in this encounter
--- OUTSIDE RECORDS SUMMARY | 2022-01-31 09:46 | XMS_ITS | Encounter Summary ---
:1955 Author Organization [facility] Address [address] [place] [address] Care Team Providers Name Role Phone Unavailable Primary Care Provider Unavailable Encounter Details Date Type Department Care Team Description 11/21/2004 Hospital Encounter HX NO MAPPING Provider, Historical Social History Tobacco Use Types Packs/Day Years Used Date Smoking Tobacco: Never Assessed Alcohol Habits Answer Date Recorded How often do you have a drink containing 4 or more times a w [place] 07/30/2021 alcohol? How many drinks containing alcohol [...] you attend yarsanism or Patient refused 2021 yazdanism services? 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 [address] [place], [place] [phone] (Wo rk) 02/22/2022 Office Visit Orthopedic Surgery Kimberlyn Alvarez APRN, C.N.P., D.N.P. [address] [place], [place] [phone] (Wo rk) 03/12/2022 Diagnostic Otorhinolaryngology Blanka Carranza, C.N.P. [address] [place] [address] Aleena Hassan Au.D. [address] [place] [phone] documented as of this encounter Visit Diagnoses Not on filedocumented in this encounter
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
--- OUTSIDE RECORDS SUMMARY | 2022-01-31 09:46 | XMS_ITS | Encounter Summary ---
:1955 Author Organization [facility] Address [address] [place] [address] Care Team Providers Name Role Phone Unavailable Primary Care Provider Unavailable Encounter Details Date Type Department Care Team Description 05/08/2004 Hospital Encounter HX [facility] Jessica Sanders, L.P.N. [address] [place], [place] [phone] Social History Tobacco Use Types Packs/Day Years Used Date Smoking Tobacco: Never Assessed Alcohol Habits Answer Date Recorded How often do you have a drink containing 4 or more times a w [place] 07/30/2021 alcohol? How many drinks containing alcohol [...] you attend rastafarian or Patient refused 2021 yazdanism services? 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 >> JESSICA Kruse May 08, 2004 11:14 AM Wants rx for he rsore throat. She said she is traveling and she only sees you. She can be reached at [phone]. [facility] is her pharmacy. [facility] Document Id: [id number] documented in this encounter Plan of Treatment Upcoming Encounters Date Type Specialty Care Team Description 02/02/2022 Immunization Family Medicine 02/12/2022 Office Visit Dermatology Lacy Dykes M.D. [address] [place], [place] [phone] (Lisha mccann) 02/22/2022 Office Visit Orthopedic Surgery Kimberlyn Alvarez APRN, C.N.P., D.N.P. [address] [place], [place] [phone] (Wo rk) 03/12/2022 Diagnostic Otorhinolaryngology Blanka Carranza, C.N.P. [address] [place] [address] Aleena Hassan Au.D. [address] [place] [address] documented as of this encounter Visit Diagnoses Not on filedocumented in this encounter
--- OUTSIDE RECORDS SUMMARY | 2022-01-31 09:46 | XMS_ITS | Encounter Summary ---
:1955 Author Organization [facility] Address [address] [place] [address] Care Team Providers Name Role Phone Unavailable Primary Care Provider Unavailable Encounter Details Date Type Department Care Team Description 01/06/2004 Hospital Encounter HX NO MAPPING Johnathon Díaz, DElisabet Cordoba [address] [place], [place] [address] (Wo rk) Social History Tobacco Use Types Packs/Day Years Used Date Smoking Tobacco: Never Assessed Alcohol Habits Answer Date Recorded How often do you have a drink containing 4 or more times a w [place] 07/30/2021 alcohol? How many drinks containing alcohol [...] you attend jew or Patient refused 2021 pentecostal services? 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 [address] [place], [place] [phone] (Wo rk) 02/22/2022 Office Visit Orthopedic Surgery Kimberlyn Alvarez APRN, C.N.P., D.N.P. [address] [place], [place] [phone] (Wo rk) 03/12/2022 Diagnostic Otorhinolaryngology Blanka Carranza, C.N.P. [address] [place], [place] [address] Aleena Hassan Au.D. [address] [place] [address] documented as of this encounter Visit Diagnoses Not on filedocumented in this encounter
--- OUTSIDE RECORDS SUMMARY | 2022-01-31 09:46 | XMS_ITS | Encounter Summary ---
:1955 Author Organization [facility] Address [address] [place] [address] Care Team Providers Name Role Phone Unavailable Primary Care Provider Unavailable Encounter Details Date Type Department Care Team Description 02/08/2005 Hospital Encounter HX [facility] Madison Stanton M.D. [address] [place] [phone] (Wo rk) Social History Tobacco Use Types Packs/Day Years Used Date Smoking Tobacco: Never Assessed Alcohol Habits Answer Date Recorded How often do you have a drink containing 4 or more times a w [place] 07/30/2021 alcohol? How many drinks containing alcohol [...] you attend denominational or Patient refused 2021 bahai services? 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 - 02/08/2005 1:00 PM CST [id number] Priscilla is a 49 year old here for her annual exam. Obstetric History T0 P0 TAB0 SAB0 E0 M0 L0 using none for contraception. Manager Residential HX: no abnormal paps. Her menses are regular, had 2 menses in October but otherwise are just once amonth, last 2-3 days, some cramps, very heavy, no bleeding between cycles HPI: no hot flushes, no menopause problems. No AMNA, has urgency the week prior to menses. PAST MEDICAL HISTORY: Previous Medical History: FEMALE STRESS INCONTINENCE HYPOTHYROIDISM NOS CARDIAC DYSRHYTHMIA NOS Comment: Has some tachycardia, seen imaging engineer, Takes Atenolol daily MAMMOGRAPHIC MICROCALCIFICATION 01/11/04 Comment: rt breast. Benign PAST SURGICAL HISTORY: Review of patient's past surgical history indicates: FULL ROUT OBSTE CARE, DELIV Comment: C/S X 1 REMOVE TONSILS/ADENOIDS,<12 Y/O Comment: Tonsillectomy and adenoidectomy < age 12 SLING OPER STRES INCONTINENCE 03/23/03 COMBINED ANT/POST COLPORRHAPHY 03/23/03 OPEN RX MC-P DISLOC 11/21/04 Comment: RT CURRENT MEDICATIONS: Current outpatient prescriptions: SYNTHROID 175 MCG OR TABS one daily AMBIEN 10 MG OR TABS 1 TABLET AT BEDTIME NEEDED for sleep XENICAL 120 MG OR CAPS 1 CAPSULE THREE TIMES DAILY BEFORE MEALS ALLERGIES: Bee, Pollen, Seasonal Allergies FAMILY HX: Family History: Breast CA No family hx of Colon CA No family hx of Diabetes No family hx of Heart Father Comment: [place] at age 40 Cardiovascular Comment: Grandparents - Cardiovascular disease ROS: REVIEW OF SYSTEMS: NEUROLOGIC: Negative EYES: Negative ENT: Negative GI: Negative BREAST: Negative : Negative AUTOMATION MECHANIC: Negative CV: Negative PULMONARY: Negative MUSCULOSKELETAL: Negative PSYCH: Negative SOCIAL HISTORY: Social History Marital Status: Spouse Name: N/A Years of Education: N/A Number of Children: N/A Occupational History None on file Social History Main Topics Tobacco Use: Quit Quit date: 03/07/2003 Comment: was smoking 3-4 cig a day Alcohol Use: Yes 6.0 oz/week Drug Use: No Sexually Active: Not Currently Other Topics Concern Social History Narrative None on file HEALTH HABITS: calcium intake supplements and drinks milk, last dT 6 yrs ago, last lipids 2004, lastmammogram 2003 and was normal, last pap 2003 and was normal, last eye exam was Q 2 yrs, last dental exam was Q 6 months. PHYSICAL EXAM: This is a well-developed, well-nourished female in no apparent distress. ENT: ENT exam normal, no neck nodes or sinus tenderness. NECK: Supple, no adenopathy and thyroid normal. LUNGS: Normal - CTA without rales, rhonchi, or wheezing.. HEART: Regular rate, rhythm and No murmur, rub, gallop. BREASTS: No masses, skin, nipple or axillary changes, [...] mucosa and ruggae, no lesions not atrophic Cervix:multiparous and no lesions Uterus: smooth, firm, mobile, without irregularities anteverted Adnexa: non tender, 2 x 3 bilateral without abnormality RV: not indicated Rectum: no hemorrhoids, no bleeding EXTREMITIES: Normal, appears to have wart on left 5th toe. NEUROLOGIC: Normal. SKIN: scattered benign nevi ASSESSMENT AND PLAN: Annual Manager Residential exam. 2. hypothyroidism- low TSH, but a normal fT4 feels good on this dose, less dry skin, less irritable.refilled synthroid 3. history of obesity, has lost the weight. Uses Xenical when travels only #90 lasts 3-4 months, uses ambien when she travels. refilled both 4. foot lesion-looks like a wart Health maintenance includes: pap smear done today and flu vaccine. 2. podiatry consult [facility] Document Id: [id number] Electronically signed by Conversion, [facility] Transitions Manager [id number] at 09/09/2016 9:58 PM CDT documented in this encounter Miscellaneous Notes Miscellaneous - Conversion, Historical Provider Ser - 02/08/2005 1:00 PM FOOD CRITIC [id number] Priscilla Fitzpatrick [address] [place] [address] February 18, 2005 Dear Priscilla Fitzpatrick, I am happy to inform you that your recent cervical cancer screening test (PAP smear) was normal. Preventative screening such as this helps insure your health for years to come. Congratulations for taking care of yourself! Please contact my office if you have any further questions. [phone]. Sincerely, Lynn Caceres M.D. OBSTETRICS/GYNECOLOGY [facility] Source: [facility] Document Id: [id number] documented in this encounter Plan of Treatment Upcoming Encounters Date Type Specialty Care Team Description 02/02/2022 Immunization Family Medicine 02/12/2022 Office Visit Dermatology Lacy Dykes M.D. [address] [place], [place] [phone] (Wo rk) 02/22/2022 Office Visit Orthopedic Surgery Kimberlyn Alvarez, JOSE DANIEL, C.N.P., D.N.P. [address] [place], [place] [phone] (Wo rk) 03/12/2022 Diagnostic Otorhinolaryngology Blanka Carranza, C.N.P. [address] [place] [address] Aleena Hassan Au.D. [address] [place] [address] documented as of this encounter Visit Diagnoses Not on filedocumented in this encounter
--- OUTSIDE RECORDS SUMMARY | 2022-01-31 09:46 | XMS_ITS | Encounter Summary ---
:1955 Author Organization [facility] Address [address] [place] [address] Care Team Providers Name Role Phone Unavailable Primary Care Provider Unavailable Encounter Details Date Type Department Care Team Description 02/18/2005 Hospital Encounter HX [facility] Jenise Chacon D.P.M. [address] [place] [phone] (Wo rk) Social History Tobacco Use Types Packs/Day Years Used Date Smoking Tobacco: Never Assessed Alcohol Habits Answer Date Recorded How often do you have a drink containing 4 or more times a w [place] 07/30/2021 alcohol? How many drinks containing alcohol [...] or relatives? How often do you attend christianity or Patient refused 2021 yazdanism services? 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 - 02/18/2005 10:30 AM CST [id number] SUBJECTIVE: Priscilla is a 49 year old female who presents today complaining of pain to corn between 4th - 5th toe. She has has orthotics for past 6 months. Previous Medical History: FEMALE STRESS INCONTINENCE HYPOTHYROIDISM NOS CARDIAC DYSRHYTHMIA NOS Comment: Has some tachycardia, seen dough braker, Takes Atenolol daily MAMMOGRAPHIC MICROCALCIFICATION 01/11/04 Comment: rt breast. Benign OBJECTIVE: Pulse 48, temperature 95.7. Patient is alert and orientated to time, place and person. Muskulos[place]atal: Motor- strength normal and symmetric graded at +5/5. Gait- normal including tandem walk, heel and toe walk. No gross deformities or dislocations. Rectus foot structure. Neurological: Light touch is not diminished bilateral. Sensations negative for numbness, pins and needles, burning and tingling bilateral. Coordination within normal limits. Patient is able to follow tasks as directed. Dermatological: Lower extremity shows positive for hyperkeratosis distal interphalangeal joint 5th digit 4th interspace left foot. Toenails: normal Vascular: Pedal pulses palpable. Normal hair growth pattern. Temperature warm to warm proximal to distal. No peripheral edema. ASSESSMENT: 700 CORNS AND CALLOSITIES 729.5 PAIN IN LIMB PLAN: Discussed with patient clinical findings and symptoms. She has classic findings for interdigital corn. Lesion paired with sterile #15 blade. Interdigital gel pad dispensed. Priscilla understands lesion my return and need additional debridement or surgical correction. Assessment for Priscilla will be ongoing with changes in treatment as indicated. Benefits/risks/alternatives to treatment have been reviewed and Priscilla has been instructed to contact this office if she has any questions or concerns. Priscilla will follow with podiatry as needed if she has continued problems or discomfort. This plan ofcare has been discussed with Priscilla and she is in agreement. Priscilla voiced understanding to information discussed this visit. Source: [facility] RWHXTR[facility]XRT[facility]YS Document Id: [id number] Electronically signed by Conversion, [facility] Search Engine Optimization Consultant [id number] at 09/09/2016 9:58 PM CDT documented in this encounter Plan of Treatment Upcoming Encounters Date Type Specialty Care Team Description 02/02/2022 Immunization Family Medicine 02/12/2022 Office Visit Dermatology Lacy Dykes M.D. [address] [place], [place] [phone] (Wo rk) 02/22/2022 Office Visit Orthopedic Surgery Kimberlyn Alvarez APRN, C.N.P., D.N.P. [address] [place], [place] [phone] (Wo rk) 03/12/2022 Diagnostic Otorhinolaryngology Blanka Carranza, C.N.P. [address] [place], [place] [address] Aleena Hassan Au.D. [address] [place] [address] documented as of this encounter Visit Diagnoses Not on filedocumented in this encounter
--- OUTSIDE RECORDS SUMMARY | 2022-01-31 09:46 | XMS_ITS | Encounter Summary ---
:1955 Author Organization [facility] Address [address] [place] [address] Care Team Providers Name Role Phone Unavailable Primary Care Provider Unavailable Encounter Details Date Type Department Care Team Description 11/20/2004 Hospital Encounter [facility]X [facility] Luis Caceres M.D. [address] [place] [address] (Wo rk) Social History Tobacco Use Types Packs/Day Years Used Date Smoking Tobacco: Never Assessed Alcohol Habits Answer Date Recorded How often do you have a drink containing 4 or more times a w [place] 07/30/2021 alcohol? How many drinks containing [...] you attend christian or Patient refused 2021 druze services? 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 - 11/20/2004 12:00 AM CDT [id number] Addended by: GILLIAN CACERES on: 11/22/2004 5:18:17 PM Modules accepted: Orders Source: [facility] Document Id: [id number] Electronically signed by Conversion, [facility] Director Of Search Engine Optimization [id number] at 09/09/2016 11:45 PM CDT Telephone Encounter - Inna Tamez L.P.N. - 11/20/2004 12:00 AM CDT [id number] Will you address this please? PCP is out of the office today. Accepting this rx will be faxed directly to pharmacy. Is over due for lab check so note added to comment line. Source[facility] Document Id: [id number] Electronically signed by Conversion, [facility] Director Of Search Engine Optimization [id number] at 09/09/2016 11:45 PM CDT Telephone Encounter - Cathy Haile M.D. - 11/20/2004 12:00 AM CDT [id number] Please let her know Rx was ent and no more refills until seen by her PCP. KD Source: [facility] Document Id: [id number] Electronically signed by Conversion, [facility] Director Of Search Engine Optimization [id number] at 09/09/2016 11:45 PM CDT Telephone Encounter - Gillian Caceres M.D. - 11/20/2004 12:00 AM CDT [id number] Pt seen 04, o.k. RF X 6 months. pls let patient know Source: [facility] Document Id: [id number] Electronically signed by Conversion, [facility] Director Of Search Engine Optimization [id number] at 09/09/2016 11:45 PM CDT documented in this encounter Plan of Treatment Upcoming Encounters Date Type Specialty Care Team Description 02/02/2022 Immunization Family Medicine 02/12/2022 Office Visit Dermatology Lacy Dykes M.D. [address] [place], [place] [phone] (Wo rk) 02/22/2022 Office Visit Orthopedic Surgery Kimberlyn Alvarez APRN, C.N.P., D.N.P. [address] [place], [place] [phone] (Wo rk) 03/12/2022 Diagnostic Otorhinolaryngology Blanka Carranza, C.N.P. [address] [place], [place] [phone] Aleena Hassan Au.D. [address] [place] [address] documented as of this encounter Visit Diagnoses Not on filedocumented in this encounter
--- OUTSIDE RECORDS SUMMARY | 2022-01-31 09:46 | XMS_ITS | Encounter Summary ---
:1955 Author Organization [facility] Address [address] [place] [address] Care Team Providers Name Role Phone Unavailable Primary Care Provider Unavailable Encounter Details Date Type Department Care Team Description 12/13/2004 Hospital Encounter HX [facility] Provider, Historic al Social History Tobacco Use Types Packs/Day Years Used Date Smoking Tobacco: Never Assessed Alcohol Habits Answer Date Recorded How often do you have a drink containing 4 or more times a w [place] 07/30/2021 alcohol? How many drinks containing alcohol [...] you attend mosque or Patient refused 2021 denominational services? 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 - 12/13/2004 9:30 AM CDT [id number] Priscilla Amari [address] [place] [address] December 18, 2004 Dear Priscilla: I am writing to inform you the results of the laboratory tests you had done during your recent visitto the clinic. Your thyroid test is acceptable. The TSH is a little low, but the free T4 is normal (the actual thyroid hormone level). I don't think we need to change your medication (if we did anything, we would decrease the amount. Your cyholesterol panel is perfect. I'll see you in January for yourphysical. If you need a mammogram done here, you can call to get one scheduled the same day. I can'tremember if you get them here or somewhere else. The results of your recent lab(s) were: TSH (mU/L) Date: 12/13/2004 Value: 0.06* Low: 0.4 High: 5.0 Status: Final CHOLESTEROL (mg/dL) Date: 12/13/2004 Value: 187 Low: 0 High: 200 Status: Final Comment: Cholesterol Reference Range: <200 The NCEP recommends further evaluation of: 1. Patients with cholesterol greater than 200 mg/dL if additional risk factors are present. 2. All patients with a cholesterol greater than 240 mg/dL. TRIGLYCERIDES (mg/dL) Date: 12/13/2004 Value: 48 Low: 0 High: 150 Status: Final HDL CHOLESTEROL (mg/dL) Date: 12/13/2004 Value: 68 Low: >40 High: Status: Final LDL CHOLESTEROL, CALCULATED (mg/dL) Date: 12/13/2004 Value: 109 Low: 0 High: 129 Status: Final VLDL-CALCULATED (mg/dL) Date: 12/13/2004 Value: 10 Low: 0 High: 30 Status: Final CHOLESTEROL/HDL RATIO Date: 12/13/2004 Value: 2.8 Low: 0.0 High: 5.0 Status: Final T4, free serum (ng/dL) Date: 12/13/2004 Value: 0.84 Low: 0.60 High: 1.17 Status: Final It was a pleasure to see you in the clinic. If you have any further questions or problems, please contact our office at [phone]. Sincerely, Lynn Caceres MD REFUELING RAMPMAN Department [facility] Document Id: [id number] Electronically signed by Conversion, [facility] Lime Vat Tender [id number] at 09/09/2016 7:14 PM CDT documented in this encounter Plan of Treatment Upcoming Encounters Date Type Specialty Care Team Description 02/02/2022 Immunization Family Medicine 02/12/2022 Office Visit Dermatology Lacy Dykes M.D. [address] [place], [place] [phone] (Wo rk) 02/22/2022 Office Visit Orthopedic Surgery Kimberlyn Alvarez APRN, C.N.P., D.N.P. [address] [place], [place] [phone] (Wo rk) 03/12/2022 Diagnostic Otorhinolaryngology Blanka Carranza, C.N.P. [address] [place] [address] Aleena Hassan Au.D. [address] [place] [address] documented as of this encounter Visit Diagnoses Not on filedocumented in this encounter
--- OUTSIDE RECORDS SUMMARY | 2022-01-31 09:46 | XMS_ITS | Encounter Summary ---
:1955 Author Organization [facility] Address [address] [place] [address] Care Team Providers Name Role Phone Unavailable Primary Care Provider Unavailable Encounter Details Date Type Department Care Team Description 02/20/2004 Hospital Encounter HX NO MAPPING Provider, Historical [...] you attend yarsanism or Patient refused 2021 worship services? 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 [address] [place], [place] [phone] (Wo rk) 02/22/2022 Office Visit Orthopedic Surgery Kimberlyn Alvarez APRN, C.N.P., D.N.P. [address] [place], [place] [phone] (Wo rk) 03/12/2022 Diagnostic Otorhinolaryngology Blanka Carranza, C.N.P. [address] [place] [address] Aleena Hassan Au.D. [address] [place] [address] documented as of this encounter Visit Diagnoses Not on filedocumented in this encounter
--- OUTSIDE RECORDS SUMMARY | 2022-01-31 09:46 | XMS_ITS | Encounter Summary ---
:1955 Author Organization [facility] Address [address] [place] [address] Care Team Providers Name Role Phone Unavailable Primary Care Provider Unavailable Encounter Details Date Type Department Care Team Description 01/10/2004 Hospital Encounter HX NO MAPPING Provider, Historical Social History Tobacco Use Types Packs/Day Years Used Date Smoking Tobacco: Never Assessed Alcohol Habits Answer Date Recorded How often do you have a drink containing 4 or more times a w hughes 07/30/2021 alcohol? How many drinks containing alcohol [...] you attend scientologist or Patient refused 2021 samaritan services? 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 [address] [place], [place] [phone] (Wo rk) 02/22/2022 Office Visit Orthopedic Surgery Kimberlyn Alvarez APRN, C.N.P., D.N.P. [address] [place], [place] [phone] (Wo rk) 03/12/2022 Diagnostic Otorhinolaryngology Blanka Carranza, C.N.P. [address] [place] [address] Aleena Hassan Au.D. [address] [place] [address] documented as of this encounter Visit Diagnoses Not on filedocumented in this encounter
--- OUTSIDE RECORDS SUMMARY | 2022-01-31 09:46 | XMS_ITS | Encounter Summary ---
:1955 Author Organization [facility] Address [address] [place] [address] Care Team Providers Name Role Phone Unavailable Primary Care Provider Unavailable Encounter Details Date Type Department Care Team Description 12/03/2004 Hospital En[facility] Madison Stanton M.D. [address] [place] [phone] (Wo rk) Social History Tobacco [...] you attend mandaen or Patient refused 2021 confucianism services? 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 to see you on 01/18/05 for P.E. Requests to have labs ordered including TSH prior to 12/13/04 as she has an appt. with another provider at that time. Wants to have blood work done priorto her appt. with you in Jan. Source[facility] Document Id: [id number] Telephone Encounter - Lynn Caceres M.D. - 12/03/2004 12:00 AM CDT [id number] done, please have her come fasting and we can get a cholesterol done, too. If she prefers, we can only get the TSH if she got her lipids done elsewhere. pls call and inform. Source: [facility] Document Id: [id number] Electronically signed by Conversion, [facility] Still Tender [id number] at 09/09/2016 11:45 PM CDT Telephone Encounter - Conversion, Historical Provider Ser - 12/03/2004 12:00 AM CDT [id number] Left message on patient's home phone informing her of Dr. Caceres's note. Source[facility] Document Id: [id number] documented in this encounter Plan of Treatment Upcoming Encounters Date Type Specialty Care Team Description 02/02/2022 Immunization Family Medicine 02/12/2022 Office Visit Dermatology Lacy Dykes M.D. [address] [place], [place] [phone] (Wo rk) 02/22/2022 Office Visit Orthopedic Surgery Kimberlyn Alvarez APRN, C.N.P., D.N.P. [address] [place], [place] [phone] (Wo rk) 03/12/2022 Diagnostic Otorhinolaryngology Blanka Carranza, C.N.P. [address] [place], [place] [phone] Aleena Hassan Au.D. [address] [place] [address] documented as of this encounter Visit Diagnoses Not on filedocumented in this encounter
--- OUTSIDE RECORDS SUMMARY | 2022-01-31 09:47 | XMS_ITS | Encounter Summary ---
:1955 Author Organization [facility] Address [address] [place] [address] Care Team Providers Name Role Phone Unavailable Primary Care Provider Unavailable Encounter Details Date Type Department Care Team Description 03/01/2003 Hospital Encounter [facility]X [facility] Cathy Layne M.D. Social History Tobacco Use Types Packs/Day Years Used Date Smoking Tobacco: Never Assessed Alcohol Habits Answer Date Recorded How often do you have a drink containing 4 or more times a w citizen [place] 07/30/2021 alcohol? How many drinks containing [...] you attend samaritan or Patient refused 2021 samaritan services? 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 Fitzpatrick is here for evaluation of incontinence - consult from Dr. Caceres. She has noticed leaking with cough, sneeze, lift, or straining, leaking with urge...unable to get to bathroom and le aking all the time...dribbling. Her fluid intake is usually large - non caffeine.PMH: Review of piter argueta's past medical history indicates: FEMALE STRESS INCONTINENCE HYPOTHYROIDISM NOS PSH: Review of patient's past surgical history indicates: HISTORY OF SURGERY = C/SX MEDS: Current prescri ptions:ATENOLOL 25 MG OR TABS 1 TABLET DAILYLEVOXYL 137 MCG OR TABS one dailyUrinalysis: essenti ally negativePostvoid residual is = 20 cc.Catheter was placed under sterile conditions, as were t he vaginal and bladder sensors. Initial bladder pressure is 4 cm H2O. This was then zeroed and test ing began.Fluid was infused and first sensation was at 250 cc. no detrusor spasm was noted. Max i nfused was 500 cc. She did not have any evidence of detrusor contraction. The catheter was tyra kevon and sensors left in place; cough and valsalva done and leakage was noted at 90 to 100cm H2O. Ure thral pressure was noted to be a max of = 24-26 cm H2O. Uroflow study was very classic valdovinos curve. It did not have any abnomality - voided = 550cc measured / 700cc by machine measure.Impression: s tress urinary incontinencePlan:follow up with dr. Burgess to discuss treatment.A copy of this n ote has been forwarded to Dr. Caceres for review. Source: [facility] RWHXTRANSXSYS Document Id: [id number] documented in this encounter Plan of Treatment Upcoming Encounters Date Type Specialty Care Team Description 02/02/2022 Immunization Family Medicine 02/12/2022 Office Visit Dermatology Lacy Dykes M.D. [address] [place], [place] [phone] (Wo rk) 02/22/2022 Office Visit Orthopedic Surgery Kimberlyn Alvarez APRN, C.N.P., D.N.P. [address] [place], [place] [phone] (Wo rk) 03/12/2022 Diagnostic Otorhinolaryngology Blanka Carranza, C.N.P. [address] [place], [place] [phone] Aleena Hassan Au.D. [address] [place] [address] documented as of this encounter Visit Diagnoses Not on filedocumented in this encounter
--- OUTSIDE RECORDS SUMMARY | 2022-01-31 09:47 | XMS_ITS | Encounter Summary ---
:1955 Author Organization [facility] Address [address] [place] [address] Care Team Providers Name Role Phone Unavailable Primary Care Provider Unavailable Encounter Details Date Type Department Care Team Description 02/25/2003 Hospital Encounter HX NO MAPPING Provider, Historical Social History Tobacco Use Types Packs/Day Years Used Date Smoking Tobacco: Never Assessed Alcohol Habits Answer Date Recorded How often do you have a drink containing 4 or more times a w [place] 07/30/2021 alcohol? How many drinks containing alcohol [...] you attend orthodox or Patient refused 2021 buddhist services? 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 [address] [place], [place] [phone] (Wo rk) 02/22/2022 Office Visit Orthopedic Surgery Kimberlyn Alvarez APRN, C.N.P., D.N.P. [address] [place], [place] [phone] (Wo rk) 03/12/2022 Diagnostic Otorhinolaryngology Blanka Carranza, C.N.P. [address] [place] [address] Aleena Hassan Au.D. [address] [place] [address] documented as of this encounter Visit Diagnoses Not on filedocumented in this encounter
--- OUTSIDE RECORDS SUMMARY | 2022-01-31 09:47 | XMS_ITS | Encounter Summary ---
:1955 Author Organization [facility] Address [address] [place] [address] Care Team Providers Name Role Phone Unavailable Primary Care Provider Unavailable Encounter Details Date Type Department Care Team Description 03/23/2003 - Hospital Encounter HX NO MAPPING Lynn Caceres, 03/24/2003 Sudarshan [address] [place] [address] (Wo rk) Social History Tobacco Use Types Packs/Day Years Used Date Smoking Tobacco: Never Assessed Alcohol Habits Answer Date Recorded How often do you have a drink containing 4 or more times a w ely shosh[place] 07/30/2021 alcohol? How many drinks containing alcohol [...] you attend sabianist or Patient refused 2021 yarsani services? 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 [address] [place], [place] [phone] ( rk) 02/22/2022 Office Visit Orthopedic Surgery Kimberlyn Alvarez APRN, C.N.P., D.N.P. [address] [place], [place] [phone] (Wo rk) 03/12/2022 Diagnostic Otorhinolaryngology Blanka Carranza, C.N.P. [address] [place] [address] Aleena Hassan Au.D. [address] [place] [address] documented as of this encounter Visit Diagnoses Not on filedocumented in this encounter
--- OUTSIDE RECORDS SUMMARY | 2022-01-31 09:47 | XMS_ITS | Encounter Summary ---
:1955 Author Organization [facility] Address [address] [place] [address] Care Team Providers Name Role Phone Unavailable Primary Care Provider Unavailable Encounter Details Date Type Department Care Team Description 03/18/2003 Hospital Encounter HX NO MAPPING Provider, Historical [...] you attend anabaptist or Patient refused 2021 scientology services? 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 Contact: Maxime @ [facility], A&P repair ([phone]), TVT ([id number]) has been precertified for a 2 day LOS. Notification #[id number]. Source: [facility] Document Id: [id number] documented in this encounter Plan of Treatment Upcoming Encounters Date Type Specialty Care Team Description 02/02/2022 Immunization Family Medicine 02/12/2022 Office Visit Dermatology Lacy Dykes M.D. [address] [place], [place] [phone] (Wo rk) 02/22/2022 Office Visit Orthopedic Surgery Kimberlyn Alvarez APRN, C.N.P., D.N.P. [address] [place], [place] [phone] (Wo rk) 03/12/2022 Diagnostic Otorhinolaryngology Blanka Carranza, C.N.P. [address] [place] [address] Aleena Hassan Au.D. [address] [place] [address] documented as of this encounter Visit Diagnoses Not on filedocumented in this encounter
--- OUTSIDE RECORDS SUMMARY | 2022-01-31 09:47 | XMS_ITS | Encounter Summary ---
:1955 Author Organization [facility] Address [address] [place] [address] Care Team Providers Name Role Phone Unavailable Primary Care Provider Unavailable Encounter Details Date Type Department Care Team Description 03/24/2003 Hospital Encounter HX NO MAPPING Provider, Historical Social History Tobacco Use Types Packs/Day Years Used Date Smoking Tobacco: Never Assessed Alcohol Habits Answer Date Recorded How often do you have a drink containing 4 or more times a w [place] 07/30/2021 alcohol? How many drinks containing alcohol [...] you attend yarsani or Patient refused 2021 confucianism services? 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 Stress inconti nence.2. Cystocele.3. Rectocele.FINAL DIAGNOSIS:1. Stress incontinence.2. Cystocele.3. Re ctocele.PROCEDURE: 1. Tension free vaginal tape. 2. Cystocele and rectocele repair. COMPLICAT IONS: None. HISTORY: This patient is a 47-year-old para 1 with a history of cystocele, rectocele and stress incontinence confirmed by urodynamic testing. She had no uterine descensus or problems wi th bleeding. After discussion regarding risks, benefits and alternatives she elected to proceed with TVT and AP repair. HOSPITAL COURSE: On 03/23/03 she underwent a TVT, AP repair and cystoscopy. Estimated blood loss was 100 ml. The bladder mucosa appeared normal. She did have a cystocele and rectocele present. No descensus and no complications.Her postop course was uncomplicated. She had scant bleeding by the morning of postop day #1. She will undergo a trial of void this morning. If she is able to void after instillation of 300 ml of normal saline, the Camar[place] will be removed. If she is unable to void or voids less than 200 ml, she will be discharged with the Camarillo and given Camarillo c are instructions.I advised her to avoid lifting greater than 10 pounds for six weeks and strictly t o adhere to this. No driving for about a week or so and no driving while taking Percocet and she melonie uld be able to step on the brake in case of an emergency. Discharge medications including Percocet 1 p.o. q. 4-6 hours p.r.n. pain and Ibuprofen mqxf-[id number] 200 mg take 2 or 3 of these every 4-6 h ours as needed for pain. If she goes home with the Camarillo, she will be given a prescription for Macro bid 1 p.o. q. d. while the Camar[place] is in place. I will see her back on Friday in [employer] should s he be unable to void or else in about two weeks when she plans to go back to work.Maximiliano ng M.D./camelia. 03/24/03 t. 03/30/03 Source: [facility] Document Id: [id number] documented in this encounter Plan of Treatment Upcoming Encounters Date Type Specialty Care Team Description 02/02/2022 Immunization Family Medicine 02/12/2022 Office Visit Dermatology Lacy Dykes M.D. [address] [place], [place] [phone] (iLsha mccann) 02/22/2022 Office Visit Orthopedic Surgery Kimberlyn Alvarez, JOSE DANIEL, C.N.P., D.N.P. [address] [place], [place] [phone] (Lisha rk) 03/12/2022 Diagnostic Otorhinolaryngology Blanka Carranza, C.N.P. [address] [place], [place] [phone] Aleena Hassan Au.D. [address] [place] [address] documented as of this encounter Visit Diagnoses Not on filedocumented in this encounter
--- OUTSIDE RECORDS SUMMARY | 2022-01-31 09:47 | XMS_ITS | Encounter Summary ---
:1955 Author Organization [facility] Address [address] [place] [address] Care Team Providers Name Role Phone Unavailable Primary Care Provider Unavailable Encounter Details Date Type Department Care Team Description 01/03/2004 Hospital Encounter HX [facility] Madison Stanton M.D. [address] [place] [phone] (Wo rk) Social History Tobacco Use Types Packs/Day Years Used Date Smoking Tobacco: Never Assessed Alcohol Habits Answer Date Recorded How often do you have a drink containing 4 or more times a w [place] 07/30/2021 alcohol? How many drinks containing [...] you attend shinto or Patient refused 2021 restorationist services? 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 [address] [place], [place] [phone] ( rk) 02/22/2022 Office Visit Orthopedic Surgery Kimberlyn Alvarez APRN, C.N.P., D.N.P. [address] [place], [place] [phone] (Wo rk) 03/12/2022 Diagnostic Otorhinolaryngology Blanka Carranza, C.N.P. [address] [place] [address] Aleena Hassan Au.D. [address] [place] [phone] documented as of this encounter Visit Diagnoses Not on filedocumented in this encounter
--- OUTSIDE RECORDS SUMMARY | 2022-01-31 09:47 | XMS_ITS | Encounter Summary ---
:1955 Author Organization [facility] Address [address] [place] [address] Care Team Providers Name Role Phone Unavailable Primary Care Provider Unavailable Encounter Details Date Type Department Care Team Description 08/21/2000 Hospital Encounter HX [facility] OBGYN Provider, Histor ical Social History Tobacco Use Types Packs/Day Years Used Date Smoking Tobacco: Never Assessed Alcohol Habits Answer Date Recorded How often do you have a drink containing 4 or more times a w [place] 07/30/2021 alcohol? How many drinks containing alcohol [...] you attend yazidism or Patient refused 2021 mu-ism services? 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 Contact: Priscilla Would like thyroid results and stated radiologist said mammogram was incomplete. Please call her. Source: [facility] RWHXTRANSXSYS Document Id: [id number] documented in this encounter Plan of Treatment Upcoming Encounters Date Type Specialty Care Team Description 02/02/2022 Immunization Family Medicine 02/12/2022 Office Visit Dermatology Lacy Dykes M.D. [address] [place], [place] [phone] (Wo rk) 02/22/2022 Office Visit Orthopedic Surgery Kimberlyn Alvarez APRN, C.N.P., D.N.P. [address] [place], [place] [phone] (Wo rk) 03/12/2022 Diagnostic Otorhinolaryngology Blanka Carranza, C.N.P. [address] [place] [address] Aleena Hassan Au.D. [address] [place] [phone] documented as of this encounter Visit Diagnoses Not on filedocumented in this encounter
--- OUTSIDE RECORDS SUMMARY | 2022-01-31 09:47 | XMS_ITS | Encounter Summary ---
:1955 Author Organization [facility] Address [address] [place] [address] Care Team Providers Name Role Phone Unavailable Primary Care Provider Unavailable Encounter Details Date Type Department Care Team Description 01/04/2004 Hospital Encounter HX NO MAPPING Provider, Historical Social History Tobacco Use Types Packs/Day Years Used Date Smoking Tobacco: Never Assessed Alcohol Habits Answer Date Recorded How often do you have a drink containing 4 or more times a w [place] 07/30/2021 alcohol? How many drinks containing alcohol [...] you attend episcopal or Patient refused 2021 adventist services? 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 [address] [place], [place] [phone] (Wo rk) 02/22/2022 Office Visit Orthopedic Surgery Kimberlyn Alvarez APRN, C.N.P., D.N.P. [address] [place], [place] [phone] (Wo rk) 03/12/2022 Diagnostic Otorhinolaryngology Blanka Carranza, C.N.P. [address] [place] [address] Aleena Hassan Au.D. [address] [place] [phone] documented as of this encounter Visit Diagnoses Not on filedocumented in this encounter
--- OUTSIDE RECORDS SUMMARY | 2022-01-31 09:47 | XMS_ITS | Encounter Summary ---
:1955 Author Organization [facility] Address [address] [place] [address] Care Team Providers Name Role Phone Unavailable Primary Care Provider Unavailable Encounter Details Date Type Department Care Team Description 03/23/2003 Hospital Encounter HX NO MAPPING Provider, Historical Social History Tobacco Use Types Packs/Day Years Used Date Smoking Tobacco: Never Assessed Alcohol Habits Answer Date Recorded How often do you have a drink containing 4 or more times a w [place] 07/30/2021 alcohol? How many drinks containing alcohol [...] you attend quaker or Patient refused 2021 gnosticism services? 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 Fawn Caceres M.D.Room No. 3306-1Med. Rec. No. [id number] : 55PRO CEDURE/OPERATIVE REPORTPREOPERATIVE DIAGNOSIS: 1. Cystocele/rectocele.2. Stress urinary incont inence.POSTOPERATIVE DIAGNOSIS:1. Cystocele/rectocele.2. Stress urinary incontinence.PROCEDUR ES: 1. TVT. 2. CYSTOCELE REPAIR. 3. RECTOCELE REPAIR. 4. CYSTOSCOPY.Surgeon: Shelby louise M.D.Supervisor [employer]: Shelby Camarillo M.D.Anesthesia: Spinal.Estimated Blood Loss: 100 ml.Complic ations: None.INDICATION FOR SURGERY: This patient is a 47-year-old female who has a history of st ress urinary incontinence for years. She had stress urinary incontinence confirmed by urodynamic bolivar ting. On exam, she had a cystocele, rectocele and no enterocele and no uterine descensus whatsoever. After discussion regarding risks, benefits and alternatives, we elected to proceed with TVT and AP repair. All questions were answered.OPERATIVE FINDINGS: She had a cystocele and rectocele. Again no uterine descensus. The bladder mucosa appeared normal. There were no complications.OPERATIVE REPORT: After administration of spinal anesthesia, the patient was placed in the dorsal lithotomy po sition and prepped and draped in the usual sterile fashion. The anterior bladder mucosa was grasped and infiltrated with a total of 10 ml of ?% Marcaine with Epinephrine. A transverse incision was mad e at the superior aspect of the vagina and then a midline incision was made down the anterior vaginal mucosa to within 2 cm of the urethral orifice and the pelvic fascia was dissected off the vaginal mu cosa bilaterally. The cystocele was then repaired using 2-0 Vicryl interrupted box-type suture. 0 V icryl was used for this. Excess vaginal mucosa was trimmed away and the superior portion of the vagi nal mucosa closed using 2-0 Vicryl continuous locking suture.The TVT was then preformed. The space lateral to the urethra was dissected bluntly to the level of the urogenital diaphragm. The skin was marked 1 cm superior and 2 cm lateral to the midline in the suprapubic area. The suprapubic area wa s infiltrated with a total of 20 ml of ?% Marcaine with Epinephrine. The catheter guide was then joe santy into the Caamrillo and the guide was placed along the patient's right side to move the UV junction aw ay from the trochars. The TVT trochar was then placed in the patient's right side. It was pierced a t the level of the urogenital diaphragm aiming towards the right shoulder. The direction was then ch anged to the maria l on the abdomen and the needle brought through the skin. The catheter was then tyra kevon from the bladder the cystoscope placed. A 7 degree cystoscope was used with normal saline as a d istending median. Approximately 300 or 400 ml was placed into the bladder and the bladder was thorou ghly inspected with no evidence of perforation. The fluid was removed from the bladder and the entir e needle brought through and the needle cut off at the level of the skin. The same procedure was don e along the left side. The catheter guide was placed along the patient's left side to force the UV j unction away from the needle. The needle was brought through at the level of the urogenital diaphrag m aiming towards the left shoulder. The needle was then brought along the suprapubic bone towards th e area marked on the abdomen and brought through the skin. The Camarillo catheter and guide were removed from the bladder and the cystoscope placed and again inspected. No evidence of perforation. The fl uid was removed and the needle brought through to the level of the skin and cut off.The plastic cov ering over the TVT was then removed. I used about a 12 Hegar diameter probe between the urethra and the TVT mesh and the plastic sheath was removed. Care was made not to over tighten the mesh. The me sh was cut at the level of the skin. The anterior mucosa was then closed using 2-0 Vicryl. There wa s minimal bleeding during this portion of the procedure. The rectocele was then performed. The po sterior vaginal mucosal was infiltrated with a total 10 ml of ?% Marcaine with Epinephrine. A transv erse incision was made at the level of the introitus and a V-shaped incision carried out on the perin eum. This triangular-shaped portion of the skin was then excised. A midline skin incision was made to the superior aspect of the posterior vagina. The endopelvic fascia was dissected sharply away fro m the vaginal mucosa bilaterally. The rectocele was then repaired using [address] ring suture. Excess vaginal mucosal was trimmed away. The vaginal mucosa was then closed using 2-0 Vicryl continuous locking suture in the vagina. The remainder of the repair was performed in the man ner of an episiotomy. There was minimal bleeding during this portion as well. Sponge and needle cou nts are correct. She tolerated the procedure well.Lynn Caceres M.D./gordon d. 03/23/03 t. 03/24/03 Source: [facility] RWHXTRANSXSYS Document Id: [id number] documented in this encounter Plan of Treatment Upcoming Encounters Date Type Specialty Care Team Description 02/02/2022 Immunization Family Medicine 02/12/2022 Office Visit Dermatology Lacy Dykes M.D. [address] [place], [place] [phone] (Wo rk) 02/22/2022 Office Visit Orthopedic Surgery Kimberlyn Alvarez, JOSE DANIEL, C.N.P., D.N.P. [address] [place], [place] [phone] (Wo rk) 03/12/2022 Diagnostic Otorhinolaryngology Blanka Carranza CPhilN.P. [address] [place], [place] [phone] Aleena Hassan Au.D. [address] [place] [phone] documented as of this encounter Visit Diagnoses Not on filedocumented in this encounter
--- OUTSIDE RECORDS SUMMARY | 2022-01-31 09:47 | XMS_ITS | Encounter Summary ---
:1955 Author Organization [facility] Address [address] [place] [address] Care Team Providers Name Role Phone Unavailable Primary Care Provider Unavailable Encounter Details Date Type Department Care Team Description 03/18/2003 Hospital Encounter HX NO MAPPING Provider, Historical Social History Tobacco Use Types Packs/Day Years Used Date Smoking Tobacco: Never Assessed Alcohol Habits Answer Date Recorded How often do you have a drink containing 4 or more times a w [place] 07/30/2021 alcohol? How many drinks containing alcohol [...] you attend protestant or Patient refused 2021 church services? 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 [address] [place], [place] [phone] (Wo rk) 02/22/2022 Office Visit Orthopedic Surgery Kimberlyn Alvarez APRN, C.N.P., D.N.P. [address] [place], [place] [phone] (Wo rk) 03/12/2022 Diagnostic Otorhinolaryngology Blanka Carranza, C.N.P. [address] [place] [address] Aleena Hassan Au.D. [address] [place] [phone] documented as of this encounter Visit Diagnoses Not on filedocumented in this encounter
--- OUTSIDE RECORDS SUMMARY | 2022-01-31 09:47 | XMS_ITS | Encounter Summary ---
:1955 Author Organization [facility] Address [address] [place] [address] Care Team Providers Name Role Phone Unavailable Primary Care Provider Unavailable Encounter Details Date Type Department Care Team Description 03/01/[address] [facility] Madison Stanton M.D. [address] [place] [phone] (Wo rk) Social History Tobacco Use Types Packs/Day Years Used Date Smoking Tobacco: Never Assessed Alcohol Habits Answer Date Recorded How often do you have a drink containing 4 or more times a w [place] 07/30/2021 alcohol? How many drinks containing alcohol [...] you attend religion or Patient refused 2021 pentecostal services? 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 She is status post urodynamic testing with dr. Haile and it showe d genuine AMNA, no DI. Normal PVR. Pt had cytocele, rectocele on exam.OBJECTIVE:not reexaminedASS ESSMENT:cystocele, rectocele, AMNA demonstrated by urodynmaics. No uterine desensusPLAN:AP repair, TVT. Risks, benefits, alternatives, and side effects thoroughly discussed with Pricsilla and questions answered. Patient voiced understanding of information given her.Risks discussed included but not l imited to increase in urgency post op that sometimes doesn't go away, damage to internal organs, perf of bladder, post op retension, catheter use for several weeks post op, need to take down mesh, need for further surgery. surgery date 03/23, spinalTotal encounter time was 15 minutes with 15 minutes of counseling Source: [facility] RWHXTRANSXSYS Document Id: [id number] documented in this encounter Plan of Treatment Upcoming Encounters Date Type Specialty Care Team Description 02/02/2022 Immunization Family Medicine 02/12/2022 Office Visit Dermatology Lacy Dykes M.D. [address] [place] [phone] (Wo rk) 02/22/2022 Office Visit Orthopedic Surgery Kimberlyn Alvarez, ELECTRIC MELT OPERATOR, C.N.P., D.N.P. [address] [place], [place] [phone] (Wo rk) 03/12/2022 Diagnostic Otorhinolaryngology Blanka Craranza, DarrellNPhilPPhil [address] [place], [place] [phone] Aleena Hassan Au.D. [address] [place] [phone] documented as of this encounter Visit Diagnoses Not on filedocumented in this encounter
--- OUTSIDE RECORDS SUMMARY | 2022-01-31 09:47 | XMS_ITS | Encounter Summary ---
:[address] [facility] Address [address] [place] [address] Care Team Providers Name Role Phone Unavailable Primary Care Provider Unavailable Encounter Details Date Type Department Care Team Description 03/21/2003 Hospital Encounter HX NO MAPPING Provider, Historical [...] you attend bahai or Patient refused 2021 gnosticism services? 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 [address] [place], [place] [phone] (Wo rk) 02/22/2022 Office Visit Orthopedic Surgery Kimberlyn Alvarez APRN, C.N.P., D.N.P. [address] [place], [place] [phone] (Wo rk) 03/12/2022 Diagnostic Otorhinolaryngology Blanka Carranza, C.N.P. [address] [place] [address] Aleena Hassan Au.D. [address] [place] [phone] documented as of this encounter Visit Diagnoses Not on filedocumented in this encounter
--- OUTSIDE RECORDS SUMMARY | 2022-01-31 09:47 | XMS_ITS | Encounter Summary ---
:1955 Author Organization [facility] Address [address] [place] [address] Care Team Providers Name Role Phone Unavailable Primary Care Provider Unavailable Encounter Details Date Type Department Care Team Description 01/31/2003 Hospital Encounter HX NO MAPPING Provider, Historical [...] or relatives? How often do you attend orthodoxy or Patient refused 2021 yazidi services? 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 [address] [place], [place] [phone] (Wo rk) 02/22/2022 Office Visit Orthopedic Surgery Kimberlyn Alvarez APRN, C.N.P., D.N.P. [address] [place], [place] [phone] (Wo rk) 03/12/2022 Diagnostic Otorhinolaryngology Blanka Carranza, C.N.P. [address] [place] [address] Aleena Hassan Au.D. [address] [place] [phone] documented as of this encounter Visit Diagnoses Not on filedocumented in this encounter
--- OUTSIDE RECORDS SUMMARY | 2022-01-31 09:47 | XMS_ITS | Encounter Summary ---
:1955 Author Organization [facility] Address [address] [place] [address] Care Team Providers Name Role Phone Unavailable Primary Care Provider Unavailable Encounter Details Date Type Department Care Team Description 10/05/2003 Hospital Encounter HX [facility] Chano Metcalf, R.N. [address] [place], [place] [phone] Social History Tobacco Use Types Packs/Day Years Used Date Smoking Tobacco: Never Assessed Alcohol Habits Answer Date Recorded How often do you have a drink containing 4 or more times a w [place] 07/30/2021 alcohol? How many drinks containing alcohol [...] you attend congregation or Patient refused 2021 spiritism services? 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 Advised to get TSH rechecked in 6 weeks in [place]. Pt called. >> YOU MORRIS [facility] Oct 06, 2003 4:46 PM Patient called back and was informed of information below. She would like to talk to you however, She has started a diabetic food diet and the COTTON BAG CLIPPER in charge of the program told her she should get her Thyroid level at 2 or under. That is what she is concerned about. Can you give her a call please. She will be on vacation tomorrow so will be in and out. If you can't reach her at home you can try her cell. # [phone] Thanks BR >> GILLIAN GATES FriOct 05, 2003 6:08 PM will keep the same dose. called at number below, left message that I rtned call, will try again later. IF she calls back, please tell her to keep the same dates and we'll recheck it at her annual exam. >> TAY ACEVEDO FriOct 05, 2003 11:34 AM >> CALL RECEIVED. Contact: Michelet Wagoner patient, had recent TSH in [place], results are 3.8 per patient. She is currently taking synthroid 150mcg, wonders if you want to adjust dose and when to redraw? [facility] is pharmacy, patient # [phone] Source: [facility] RWHXTRANSXSYS Document Id: [id number] documented in this encounter Plan of Treatment Upcoming Encounters Date Type Specialty Care Team Description 02/02/2022 Immunization Family Medicine 02/12/2022 Office Visit Dermatology Lacy Dykes M.D. [address] [place], [place] [phone] (Wo rk) 02/22/2022 Office Visit Orthopedic Surgery Kimberlyn Alvarez APRN, C.N.P., D.N.P. [address] [place], [place] [phone] (Wo rk) 03/12/2022 Diagnostic Otorhinolaryngology Blanka Carranza, C.N.P. [address] [place], [place] [phone] Aleena Hassan Au.D. [address] [place] [address] documented as of this encounter Visit Diagnoses Not on filedocumented in this encounter
--- OUTSIDE RECORDS SUMMARY | 2022-01-31 09:47 | XMS_ITS | Encounter Summary ---
:1955 Author Organization [facility] Address [address] [place] [address] Care Team Providers Name Role Phone Unavailable Primary Care Provider Unavailable Encounter Details Date Type Department Care Team Description 03/23/2003 Hospital Encounter HX NO MAPPING Loan Caceres M.D. [address] [place], [place] [phone] (Wo rk) Social History [...] you attend episcopal or Patient refused 2021 oriental orthodox services? 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 [address] [place], [place] [phone] (Wo rk) 02/22/2022 Office Visit Orthopedic Surgery Kimberlyn Alvarez APRN, C.N.P., D.N.P. [address] [place], [place] [phone] (Wo rk) 03/12/2022 Diagnostic Otorhinolaryngology Blanka Carranza, C.N.P. [address] [place] [address] Aleena Hassan Au.D. [address] [place] [phone] documented as of this encounter Visit Diagnoses Not on filedocumented in this encounter
--- OUTSIDE RECORDS SUMMARY | 2022-01-31 09:47 | XMS_ITS | Encounter Summary ---
:1955 Author Organization [facility] Address [address] [place] [address] Care Team Providers Name Role Phone Unavailable Primary Care Provider Unavailable Encounter Details Date Type Department Care Team Description 12/01/2003 Hospital Encounter HX NO MAPPING Provider, Historical Social History Tobacco Use Types Packs/Day Years Used Date Smoking Tobacco: Never Assessed Alcohol Habits Answer Date Recorded How often do you have a drink containing 4 or more times a w [place] 07/30/2021 alcohol? How many drinks containing alcohol [...] attend jehovah's witness or Patient refused 2021 pentecostal services? 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 [address] [place], [place] [phone] (Wo rk) 02/22/2022 Office Visit Orthopedic Surgery Kimberlyn Alvarez APRN, C.N.P., D.N.P. [address] [place], [place] [phone] (Wo rk) 03/12/2022 Diagnostic Otorhinolaryngology Blanka Carranza, C.N.P. [address] [place] [address] Aleena Hassan Au.D. [address] [place] [address] documented as of this encounter Visit Diagnoses Not on filedocumented in this encounter
--- OUTSIDE RECORDS SUMMARY | 2022-01-31 09:47 | XMS_ITS | Encounter Summary ---
:1955 Author Organization [facility] Address [address] [place] [address] Care Team Providers Name Role Phone Unavailable Primary Care Provider Unavailable Encounter Details Date Type Department Care Team Description 03/21/2003 Hospital Encounter HX [facility] Madison Stanton M.D. [address] [place] [phone] (Wo rk) Social History Tobacco [...] you attend gnosticist or Patient refused 2021 anabaptism services? 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 Future order placed for EKG.Modules accepted: Order Summary, Progress NotesMs Andrew caceres is here for a preop history and physical for TVT and AP repair scheduled on 03/23/03. Her Dx is AMNA, cystocele and rectocele.She is a 47 year old Obstetric History T0 P0 TAB0 SAB0 E0 M0 L0 currently not sexually active HPI: Many years of SUILabs/path: urodynamics with Sharon Faria showed AMNA, no DI, normal PVRXrays: N/AReview of patient's past medical history indica bolivar: FEMALE STRESS INCONTINENCE HYPOTHYROIDISM NOS Tachycardia , has seen machine lacer in on Atenolol Review of patient' s past surgical history indicates: HISTORY OF SURGERY = NONE Curr ent prescriptions:ATENOLOL 25 MG OR TABS 1 TABLET DAILYLEVOXYL 137 MCG OR TABS one dailyWellbutrin 150mg BIDAllergies:No Known Drug AllergiesROS: (normal unless otherwise noted above)REVIEW OF SYSTEMS:NEUROLOGIC: NegativeEYES: NegativeENT: NegativeGI: NegativeBREAST: NegativeGU: N egativeGYN: NegativeCV: NegativePULMONARY: NegativeMUSCULOSKELETAL: NegativePSYCH: Negative Social History Marital Status: Spouse Name: Years of E ducation: Number of children: Social History Main Topics Tobacco Use: q uit 2 weeks ago Alcohol Use: 6 oz per week Drug Use: Not Asked Sexually Active: Not As ked Comment: has had vasectomyOther Topics Concern None on fileSoci al History Narrative None on fileReview of patient's family history indicates: Breast CA No family hx of Colon CA No family hx of Irma robson No family hx of Heart Father Comment: CA at age 40 Cardiovascular Comment: Grandparents - Cardiovascular diseaseOld records reviewed and summarized aboveOn ExamVitals as above, well developed, well nursed woman in NAD.Eyes: ODALIS and normal EOMENT: grossly intact, no l esions noted.Neck: trachea midline, no masses,no Lymphadenopathy or thyroidomegaly.CV: RRR no murmu r, no edema, good pulses throughout.Lungs: CTA x 2, normal respiratory effort.Back: nl spinal or CV ATAbd: soft, non tender, no masses, no HSM noted. no rebound or guarding.Gyne Exam:deferred to EUA . My exam done 03/01 showed cystocele, rectocele, no enterocele no desensusExt: warm, no varicositi es, no calf tendernessMusculoskeletal: Normal gait and posture, good ROM, and appropriate strength noted.Assessment: AMNA, cystocele rectocele, no desensus of uterusOR CONCERNS: Diabetes none, Lat ex, tape or metal allergy none, herbal meds nonePlan: TVT, cytocele and rectocele repair2. Pt NPO after [place], to take Atenolol with sip of H2O am of surgery. Pt will bring the Wellbutrin and synthroid to hospital3. Will admit overnight, will use Percocet for pain (couldn't sleep with Vicoden in the p ast)4. If, for some reason, the TVT can not be done, pt consents to open Storm via laparotomy5. Sohail l check Hg and EKG am of surgery.The patient indicates understanding of diagnosis; risks, benefits and possible complications were explained at length ( including but not limited to infection, bleedin g, injury to other organs). The possiblity of need for further procedures or change in the procedure . The patients questions were answered. Patient agrees to surgery. Written consent was obtained inc luding risk and testing for body fluid exposure. [facility] Document Id: [id number] documented in this encounter Plan of Treatment Upcoming Encounters Date Type Specialty Care Team Description 02/02/2022 Immunization Family Medicine 02/12/2022 Office Visit Dermatology Lacy Dykes M.D. [address] [place], [place] [phone] (Wo rk) 02/22/2022 Office Visit Orthopedic Surgery Kimberlyn Alvarez, JOSE DANIEL, C.N.P., D.N.P. [address] [place], [place] [phone] (Wo rk) 03/12/2022 Diagnostic Otorhinolaryngology Blanka Carranza, C.N.P. [address] [place], [place] [phone] Aleena Hassan Au.D. [address] [place] [phone] documented as of this encounter Visit Diagnoses Not on filedocumented in this encounter
--- OUTSIDE RECORDS SUMMARY | 2022-01-31 09:47 | XMS_ITS | Encounter Summary ---
:1955 Author Organization [facility] Address [address] [place] [address] Care Team Providers Name Role Phone Unavailable Primary Care Provider Unavailable Encounter Details Date Type Department Care Team Description 05/16/2003 Hospital Encounter HX NO MAPPING Provider, Historical [...] you attend mandaeism or Patient refused 2021 yazidi services? 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 [address] [place], [place] [phone] (Wo rk) 02/22/2022 Office Visit Orthopedic Surgery Kimberlyn Alvarez APRN, C.N.P., D.N.P. [address] [place], [place] [phone] (Wo rk) 03/12/2022 Diagnostic Otorhinolaryngology Blanka Carranza, C.N.P. [address] [place] [address] Aleena Hassan Au.D. [address] [place] [phone] documented as of this encounter Visit Diagnoses Not on filedocumented in this encounter
--- OUTSIDE RECORDS SUMMARY | 2022-01-31 09:47 | XMS_ITS | Encounter Summary ---
:1955 Author Organization [facility] Address [address] [place] [address] Care Team Providers Name Role Phone Unavailable Primary Care Provider Unavailable Encounter Details Date Type Department Care Team Description 04/11/2003 Hospital Encounter HX NO MAPPING Provider, Historical Social History Tobacco Use Types Packs/Day Years Used Date Smoking Tobacco: Never Assessed Alcohol Habits Answer Date Recorded How often do you have a drink containing 4 or more times a w mi'kmaq 07/30/2021 alcohol? How many drinks containing alcohol [...] you attend zoroastrian or Patient refused 2021 mormonism services? 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 [address] [place], [place] [phone] (Wo rk) 02/22/2022 Office Visit Orthopedic Surgery Kimberlyn Alvarez APRN, C.N.P., D.N.P. [address] [place], [place] [phone] (Wo rk) 03/12/2022 Diagnostic Otorhinolaryngology Blanka Carranza, C.N.P. [address] [place] [address] Aleena Hassan Au.D. [address] [place] [phone] documented as of this encounter Visit Diagnoses Not on filedocumented in this encounter
--- OUTSIDE RECORDS SUMMARY | 2022-01-31 09:50 | XMS_ITS | Encounter Summary ---
:1955 Author Organization [facility] Address [address] [place] [address] Care Team Providers Name Role Phone Brenda Gannon MD Primary Care Provider Unavailable Reason for Visit Reason Comments Med Refill Encounter Details Date Type Department Care Team Description 02/21/2021 Refill Brenda Sewell, Hypothyroidism, unspecified type; [address] [place] Insomnia, unspecified type BERRY [place]agan [id number] Social History Tobacco Use Types Packs/Day Years Used Date Never Smoker Smokeless Tobacco: Never Used Alcohol Use Standard Drinks/Week Comments Yes 0 (1 standard drink = 0.6 oz pure alcoho l) occassional Alcohol Habits Answer Date Recorded How often do you have a drink containing alcohol? Not asked How many drinks containing alcohol do you have on a Not aske d typical day when you are drinking? How often do you have six or more drinks on one occasion? No t asked Comment: occassional 03/03/2018 Social Isolation Answer Date Recorded In a typical week, how many times do you talk on Three times a week 09/25/2018 the phone with family, friends, or neighbors? How often do you get together with friends or Three times a week 09/25/2018 relatives? How often do you attend spiritism or muslim Never 09/25/2018 services? Do you belong to any clubs or organizations such as No 09/25/2018 spiritism groups, unions, fraternal or athletic groups, or school groups? How often do you attend meetings of the clubs or Never 09/25/2018 organizations you belong to? Are you now , , , , Living wi th partner 09/25/2018 never or living with a partner? Physical Activity Answer Date Recorded On average, how many days per week do you engage in moderate to 4 days 09/25/2018 strenuous exercise (like walking fast, running, jogging, dancing, swimming, biking, or other activities that cause a light or heavy sweat)? On average, how many minutes do you engage in exercise at th is 60 min 09/25/2018 level? Stress Answer Date Recorded Do you feel stress - tense, restless, nervous, or Only a lit tle 09/25/2018 anxious, or unable to sleep at night because your mind is troubled all the time - these days? Financial Resource Strain Answer Date Recorded How hard is it for you to pay for the very basics like Not h melba at all 09/25/2018 food, housing, medical care, and heating? Intimate Partner Violence Answer Date Recorded Within the last year, have you been afraid of your partner o r No 09/25/2018 ex-partner? Within the last year, have you been humiliated or emotionall y No 09/25/2018 abused in other ways by your partner or ex-partner? Within the last year, have you been kicked, hit, slapped, or No 09/25/2018 otherwise physically hurt by your partner or ex-partner? Within the last year, have you been raped or forced to have any No 09/25/2018 kind of sexual activity by your partner or ex-partner? Food Insecurity Answer Date Recorded Within the past 12 months, you worried that your food would Never true 09/25/2018 run out before you got money to buy more. Within the past 12 months, the food you bought just didn't N ever true 09/25/2018 last and you didn't have money to get more. Transportation Needs Answer Date Recorded In the past 12 months, has lack of transportation kept you f rom No 09/25/2018 medical appointments or from getting medications? In the past 12 months, has lack of transportation kept you f rom No 09/25/2018 meetings, work, or getting things needed for daily living? Education Answer Date Recorded What is the highest level of school Bachelor's degree (e.g., BA, AB, 03/03/2018 you have completed or the highest BS) degree you have received? Sex Assigned at Date Recorded Not on file documented as of this encounter Miscellaneous Notes Telephone Encounter - Grace Shea LPN - 02/21/2021 5:32 AM CST Last visit in provider department: 02/10/2020 Last visit requested medication was discussed: 02/10/2020 [facility] Upcoming appointment with provider: Visit date not found Last Rx: Synthroid 175 mcg 12/20/2020 # 90, 0 refills Trazodone 50 mg 03/22/2020 # 180, 3 refills Requested Prescriptions Pending Prescriptions Disp Refills ??? Synthroid 175 MCG tablet [Pharmacy Med Name: SYNTHROID TABS 175MCG] 90 tablet 3 Sig: TAKE 1 TABLET ONCE DAILY ??? traZODone (DESYREL) 50 MG tablet [Pharmacy Med Name: TRAZODONE HCL TABS 50MG] 180 tablet 3 Sig: TAKE 1 TO 2 TABLETS DAILY NEEDED FOR SLEEP Labs: Component Latest Ref Rng & Units 01/06/2020 TSH 0.46 - 4.68 mIU/L 1.32 Vitals: BP Readings from Last 2 Encounters: 12/30/19 126/80 04/19/19 128/82 Patient is due for CP appointment. PSR/Nurse: Please contact patient to assist with scheduling. 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
--- OUTSIDE RECORDS SUMMARY | 2022-01-31 09:50 | XMS_ITS | Encounter Summary ---
:[address] [facility] Address [address] [place] [address] Care Team Providers Name Role Phone None, Pcp Primary Care Provider Unavailable Reason for Visit Reason Comments Annual Exam To discuss information Encounter Details Date Type Department Care Team Description 02/10/2020 Office Visit Michelet Wagoner Brenda Gannon Well adult exam (Primary Dx) ; [address] MD Yuri Essential hypertension; [place], [place] Cervical ca ncer screening; [address] Need for hepatitis C screeni ng test; [phone] Situational anx iety Social History Tobacco Use Types Packs/Day Years [...] 09/25/2018 relatives? How often do you attend yazidi or mosque Never 09/25/2018 services? Do you belong to any clubs or organizations such as No 09/25/2018 yazidi groups, unions, fraternal or athletic groups, [...] do you engage in exercise at is 60 min 09/25/2018 level? Stress Answer [...] on file documented as of this encounter Last Filed Vital Signs Vital Sign Reading Time Taken Comments Blood Pressure - - Pulse 69 02/10/2020 10:48 AM BODY WORK [employer]IM[employer] Temperature 36.9 ??C (98.4 ??F) 02/10/2020 10:48 AM BODY WORK [employer]IMMER Respiratory Rate - - Oxygen Saturation 94% 02/10/2020 10:48 AM BODY WORK [employer] TR[employer]MER Inhaled Oxygen Concentration - - Weight 78.1 kg (172 lb 3.2 oz) 02/10/2020 10:48 AM BODY WORK [employer]MER Height 156.9 cm (5' 1.77) 02/10/2020 10:48 AM B[employer] WORK [employer]MER Body Mass Index 31.73 02/10/2020 10:48 AM BODY WORK [employer]MER documented in this encounter Patient Instructions Patient InstructionsFrances Yuri Gannon MD - 02/10/2020 10:40 AM CST Images from the original note were not included. Patient Education Preventive Care 40-64 Years Old, Female Preventive care refers to visits with your health care provider and lifestyle choices that can promote health and wellness. This includes: ?? A yearly physical exam. This may also be called an annual well check. ?? Regular dental visits and eye exams. ?? Immunizations. ?? Screening for certain conditions. ?? Healthy lifestyle choices, such as eating a healthy diet, getting regular exercise, not using drugs or products that contain nicotine and tobacco, and limiting alcohol use. What can I expect for my preventive care visit? Physical exam Your health care provider will check your: ?? Height and weight. This may be used to calculate body mass index (BMI), which tells if you are jose healthy weight. ?? Heart rate and blood pressure. ?? Skin for abnormal spots. Counseling Your health care provider may ask you questions about your: ?? Alcohol, tobacco, and drug use. ?? Emotional well-being. ?? Home and relationship well-being. ?? Sexual activity. ?? Eating habits. ?? Work and work environment. ?? Method of control. ?? Menstrual cycle. ?? history. What immunizations do I need? Influenza (flu) vaccine ?? This is recommended every year. Tetanus, diphtheria, and pertussis (Tdap) vaccine ?? You may need a Td booster every 10 years. Varicella (chickenpox) vaccine ?? You may need this if you have not been vaccinated. Zoster (shingles) vaccine ?? You may need this after age 60. Measles, mumps, and rubella (MMR) vaccine ?? You may need at least one dose of MMR if you were born in 1957 or later. You may also need a second dose. Pneumococcal conjugate (PCV13) vaccine ?? You may need this if you have certain conditions and were not previously vaccinated. Pneumococcal polysaccharide (PPSV23) vaccine ?? You may need one or two doses if you smoke cigarettes or if you have certain conditions. Meningococcal conjugate (MenACWY) vaccine ?? You may need this if you have certain conditions. Hepatitis A vaccine ?? You may need this if you have certain conditions or if you travel or work in places where you maybe exposed to hepatitis A. Hepatitis B vaccine ?? You may need this if you have certain conditions or if you travel or work in places where you maybe exposed to hepatitis B. Haemophilus influenzae type b (Hib) vaccine ?? You may need this if you have certain conditions. Human papillomavirus (HPV) vaccine ?? If recommended by your health care provider, you may need three doses over 6 months. You may receive vaccines as individual doses or as more than one vaccine together in one shot (combination vaccines). Talk with your health care provider about the risks and benefits of combination vaccines. What tests do I need? Blood tests ?? Lipid and cholesterol levels. These may be checked every 5 years, or more frequently if you are over 50 years old. ?? Hepatitis C test. ?? Hepatitis B test. Screening ?? Lung cancer screening. You may have this screening every year starting at age 55 if you have a 40-cyco-ryuo history of smoking and currently smoke or have quit within the past 15 years. ?? Colorectal cancer screening. All adults should have this screening starting at age 50 and continuing until age 75. Your health care provider may recommend screening at age 45 if you are at increasedrisk. You will have tests every 1-10 years, depending on your results and the type of screening test. ?? Diabetes screening. This is done by checking your blood sugar (glucose) after you have not eaten for a while (fasting). You may have this done every 1-3 years. ?? Mammogram. This may be done every 1-2 years. Talk with your health care provider about when you should start having regular mammograms. This may depend on whether you have a family history of breastcancer. ?? BRCA-related cancer screening. This may be done if you have a family history of breast, ovarian, tubal, or peritoneal cancers. ?? Pelvic exam and Pap test. This may be done every 3 years starting at age 21. Starting at age 30, this may be done every 5 years if you have a Pap test in combination with an HPV test. Other tests ?? Sexually transmitted disease (STD) testing. ?? Bone density scan. This is done to screen for osteoporosis. You may have this scan if you are at high risk for osteoporosis. Follow these instructions at home: Eating and drinking ?? Eat a diet that includes fresh fruits and vegetables, whole grains, lean protein, and low-fat dairy. ?? Take vitamin and mineral supplements as recommended by your health care provider. ?? Do not drink alcohol if: ? Your health care provider tells you not to drink. ? You are , may be , or are planning to become . ?? If you drink alcohol: ? Limit how much you have to 0-1 drink a day. ? Be aware of how much alcohol is in your drink. In the [place] one drink equals one 12 oz bottle of beer (355 mL), one 5 oz glass of wine (148 mL), or one 1?? oz glass of hard liquor (44 mL). Lifestyle ?? Take daily care of your teeth and gums. ?? Stay active. Exercise for at least 30 minutes on 5 or more days each week. ?? Do not use any products that contain nicotine or tobacco, such as cigarettes, e-cigarettes, and chewing tobacco. If you need help quitting, ask your health care provider. ?? If you are sexually active, practice safe sex. Use a condom or other form of control (contraception) in order to prevent and STIs (sexually transmitted infections). ?? If told by your health care provider, take low-dose aspirin daily starting at age 50. What's next? ?? Visit your health care provider once a year for a well check visit. ?? Ask your health care provider how often you should have your eyes and teeth checked. ?? Stay up to date on all vaccines. This information is not intended to replace advice given to you by your health care provider. Make sure you discuss any questions you have with your health care provider. Document Released: 04/19/2016 Document Revised: 12/03/2018 Document Reviewed: 12/03/2018 Answer.To Interactive Patient Education ?? 2020 [email or web address]. WORK [employer]MER documented in this encounter Progress Notes Brenda Gannon MD - 02/10/2020 10:40 AM CST Images from the original note were not included. Well Adult - Estab Subjective Patient ID: Marjan Hampton is a 64 y.o. female. Chief Complaint Patient presents with ??? Annual Exam To discuss information HPI Patient is a 64-year-old female former smoker who presents for annual physical exam. She is tearful this morning because news of her mom, who lives in [place], is near . She will be traveling there soon with her . Concerns: request for medication to help with situational stress. Want to complete coronary calcium CT next year to screen for heart disease - her father had heart attack in early 40's. Her older brother completed scan and reportedly was normal. Concern about increased weight related to stress eating and not exercising as much due to gym closure due to current pandemic. She is due for Pap smear. Last was 3 years ago, normal. She did have an abnormal Pap smear in her 30s, with a normal biopsy. Her LMP was at the age of 52, no vaginal bleeding since. She is due for hepatitis C screening. She has completed annual mammogram. Last DEXA scan in 01/2019 showed osteopenia. Colonoscopy 06/12/2007 ([place]) - multiple polyps 3-7 mm in size; Normal colonoscopy in 06/2011 ([place]); Colonoscopy with [facility] on 12/17/2016 - repeat in 10 years. Alcohol glass wine most evenings. Past Medical History: She is on Lipitor 10 mg daily for elevated cholesterol, recent lab in January 2020. She is on medication for hypertension, controlled - brand Diovan. She is on medication for hypothyroidism, status post radioactive iodine ablation secondary to Graves' - controlled brand Synthroid and Cytomel. She has osteopenia and gets annual vitamin D level and she takes wzkr-ota-uncrhyy vitamin D and calcium. Regular exercises including weightbearing exercises. [facility] ?? She has chronic back and neck pain for which she sees a chiropractor and uses Flexeril rarely and only as needed. ?? She has benign paroxysmal positional vertigo that is been severe at times and she has been seen by physical therapy and [facility] for treatment. She performs home maneuvers as needed. ?? She has longstanding insomnia treated with nightly trazodone and only rarely uses half tablet of Ambien. She reports no side effects from these medications. ?? She reports exercise-induced asthma but has not required an inhaler for some years. ?? 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 She used to travel quite a bit. Current Outpatient Medications on File Prior to Visit Medication Sig Dispense Refill ??? atorvastatin (LIPITOR) 10 MG tablet Take 1 tablet (10 mg total) by mouth every other day 45 tablet 3 ??? CALCIUM PO Take 500 mg by mouth 1 (one) time each day ??? cholecalciferol (VITAMIN D-3) 25 MCG (1000 UT) tablet Take 1,000 Units by mouth 1 (one) time each day ??? DIOVAN 40 MG tablet Take TWO pills ONCE a day for blood pressure. 180 tablet 3 ??? liothyronine (CYTOMEL) 5 MCG tablet Take 1 tablet (5 mcg total) by mouth 1 (one) time each day 90 tablet 3 ??? Multiple Vitamins-Minerals (MULTIVITAMIN ADULT PO) Take 1 tablet by mouth 1 (one) time each day ??? ondansetron ODT (ZOFRAN ODT) 4 MG dispersible tablet Take 4 mg by mouth every 8 (eight) hours ifneeded for nausea ??? Synthroid 175 MCG tablet Take 1 tablet (175 mcg total) by mouth 1 (one) time each day 90 tablet 3 ??? traZODone (DESYREL) 50 MG tablet TAKE ONE TO TWO TABLETS BY MOUTH EVERY DAY NEEDED FOR SLEEP 180 tablet 3 ??? valACYclovir (VALTREX) 1 g tablet May take ONE tablet twice a day at the onset of a cold sore. 10 tablet 2 ??? Zinc Sulfate (ZINC 15 PO) Take by mouth ??? zolpidem (AMBIEN) 10 MG tablet TAKE ONE-HALF TABLET (5 MG) BY MOUTH AT NIGHT NEEDED FOR SLEEP45 tablet 3 ??? BACILLUS COAGULANS-INULIN PO Take 1 tablet by mouth 1 (one) time each day ??? cyclobenzaprine (FLEXERIL) 10 MG tablet Take 1 tablet (10 mg total) by mouth 3 (three) times a day if needed for muscle spasms 30 tablet 0 ??? EPINEPHrine (EPIPEN 2-AMISHA) 0.3 MG/0.3ML injection syringe Inject 0.3 mL (0.3 mg total) into the thigh if needed for anaphylaxis. Call 911 after use. 2 Syringe 3 No current facility-administered medications on file prior to visit. Other, Wasp venom, Dtap-ipv vaccine, Hylan g-f 20, Pollen extract, and Zmgztzl-jjdqnz-qgusg pertussis Immunization History Administered Date(s) Administered ??? Flu Vaccine 50-64yrs Flublok (Egg Free) 02/01/2019, 12/30/2019 ??? Influenza (IM) Preservative Free 02/24/2015 ??? Influenza 6mo-49yrs Quad Preservative Free IM 01/20/2013, 01/18/2015, 02/28/2017, 03/10/2018 ??? Influenza TIV (IM) 02/08/2005, 03/20/2012, 02/04/2014, 04/30/2016 ??? Influenza, Unspecified 03/20/2012, 01/20/2013, 02/27/2013, 02/05/2014, 01/18/2015 ??? Td 12/14/2001 ??? Tdap 11/25/2005, 10/14/2008 ??? Zoster 05/02/2014 ??? Zoster Recombinant 01/14/2020 The following portions of the patient's chart were reviewed in this encounter and updated as appropriate: Tobacco Allergies Meds Problems Med Hx Surg Hx Fam Hx Soc Hx Review of Systems The following systems were negative EXCEPT PER HPI: Constitutional, Skin, Eyes, CV, Respiratory, Gastrointestinal, Endo, , Hematologic, Musculoskeletal, Neuro, Psych, Allergy/Immuno Objective Physical Exam Pulse 69, temperature 36.9 ??C (98.4 ??F), temperature source Temporal, height 1.569 m (5' 1.77), weight 78.1 kg (172 lb 3.2 oz), SpO2 94 %. General Appearance: Alert, cooperative, no distress. Head: Normocephalic, without obvious abnormality. Eyes: PERRL, conjunctiva/corneas clear, EOM's intact, fundi benign, both eyes Ears: Normal TM's and external ear canals, both ears Nose: Nares normal, no drainage Throat: Lips, mucosa, and tongue normal; teeth and gums normal Neck: Supple, symmetrical, trachea midline, no adenopathy; no thyromegaly Back: No tenderness. ROM normal. Lungs: Clear to auscultation bilaterally, respirations unlabored Chest Wall: No tenderness or deformity Heart: Regular rate and rhythm, S1 and S2 normal, no murmur, rub or gallop Breast Exam: No tenderness, masses, or nipple abnormality Abdomen: Soft, nontender, nondistended, no organomegaly. Normoactive bowel sounds. Genitalia: Normal cervix and bimanual exam. Rectal: Not performed. Extremities: Extremities normal, atraumatic, without edema Pulses: 2+ and symmetric all extremities Skin: Skin without rashes or lesions Lymph nodes: Cervical, supraclavicular, and axillary nodes normal Neurologic: Not focal. PHQ 9 = 0 Assessment/Plan Diagnoses and all orders for this visit: Well adult exam Essential hypertension - Microalbumin/Creatinine Ratio; Future Cervical cancer screening - Pap Smear - HPV High Risk DNA Detection with Genotyping Need for hepatitis C screening test - HCV Ab Screen w/Reflex to HCV RNA by PCR, S; Future Situational anxiety - LORazepam (ATIVAN) 0.5 MG tablet; Take 0.5 tablets (0.25 mg total) by mouth 1 (one) time each day if needed for anxiety Discussed routine screening tests. Discussed short term prescription for lorazepam and risks of this medication. Discussed not taking this medication with other sedating medications/substances and not to take medication and drive. Will contact with results through portal. Will pursue coronary calcium CT scan next year. This dictation was created with voice recognition software and therefore may contain errors that went unnoticed. Health Maintenance Due Topic Date Due ? ? [facility] Pneumococcal Vaccine: <64 (1 of 3 - PCV13) 08/10/1961 ??? Pap Smear 04/30/2019 ??? Mammogram 01/19/2020 Patient Instructions Patient Education Preventive Care 40-64 Years Old, Female Preventive care refers to visits with your health care provider and lifestyle choices that can promote health and wellness. This includes: ?? A yearly physical exam. This may also be called an annual well check. ?? Regular dental visits and eye exams. ?? Immunizations. ?? Screening for certain conditions. ?? Healthy lifestyle choices, such as eating a healthy diet, getting regular exercise, not using drugs or products that contain nicotine and tobacco, and limiting alcohol use. What can I expect for my preventive care visit? Physical exam Your health care provider will check your: ?? Height and weight. This may be used to calculate body mass index (BMI), which tells if you are jose healthy weight. ?? Heart rate and blood pressure. ?? Skin for abnormal spots. Counseling Your health care provider may ask you questions about your: ?? Alcohol, tobacco, and drug use. ?? Emotional well-being. ?? Home and relationship well-being. ?? Sexual activity. ?? Eating habits. ?? Work and work environment. ?? Method of control. ?? Menstrual cycle. ?? history. What immunizations do I need? Influenza (flu) vaccine ?? This is recommended every year. Tetanus, diphtheria, and pertussis (Tdap) vaccine ?? You may need a Td booster every 10 years. Varicella (chickenpox) vaccine ?? You may need this if you have not been vaccinated. Zoster (shingles) vaccine ?? You may need this after age 60. Measles, mumps, and rubella (MMR) vaccine ?? You may need at least one dose of MMR if you were born in 1957 or later. You may also need a second dose. Pneumococcal conjugate (PCV13) vaccine ?? You may need this if you have certain conditions and were not previously vaccinated. Pneumococcal polysaccharide (PPSV23) vaccine ?? You may need one or two doses if you smoke cigarettes or if you have certain conditions. Meningococcal conjugate (MenACWY) vaccine ?? You may need this if you have certain conditions. Hepatitis A vaccine ?? You may need this if you have certain conditions or if you travel or work in places where you maybe exposed to hepatitis A. Hepatitis B vaccine ?? You may need this if you have certain conditions or if you travel or work in places where you maybe exposed to hepatitis B. Haemophilus influenzae type b (Hib) vaccine ?? You may need this if you have certain conditions. Human papillomavirus (HPV) vaccine ?? If recommended by your health care provider, you may need three doses over 6 months. You may receive vaccines as individual doses or as more than one vaccine together in one shot (combination vaccines). Talk with your health care provider about the risks and benefits of combination vaccines. What tests do I need? Blood tests ?? Lipid and cholesterol levels. These may be checked every 5 years, or more frequently if you are over 50 years old. ?? Hepatitis C test. ?? Hepatitis B test. Screening ?? Lung cancer screening. You may have this screening every year starting at age 55 if you have a 76-zuwy-fume history of smoking and currently smoke or have quit within the past 15 years. ?? Colorectal cancer screening. All adults should have this screening starting at age 50 and continuing until age 75. Your health care provider may recommend screening at age 45 if you are at increasedrisk. You will have tests every 1-10 years, depending on your results and the type of screening test. ?? Diabetes screening. This is done by checking your blood sugar (glucose) after you have not eaten for a while (fasting). You may have this done every 1-3 years. ?? Mammogram. This may be done every 1-2 years. Talk with your health care provider about when you should start having regular mammograms. This may depend on whether you have a family history of breastcancer. ?? BRCA-related cancer screening. This may be done if you have a family history of breast, ovarian, tubal, or peritoneal cancers. ?? Pelvic exam and Pap test. This may be done every 3 years starting at age 21. Starting at age 30, this may be done every 5 years if you have a Pap test in combination with an HPV test. Other tests ?? Sexually transmitted disease (STD) testing. ?? Bone density scan. This is done to screen for osteoporosis. You may have this scan if you are at high risk for osteoporosis. Follow these instructions at home: Eating and drinking ?? Eat a diet that includes fresh fruits and vegetables, whole grains, lean protein, and low-fat dairy. ?? Take vitamin and mineral supplements as recommended by your health care provider. ?? Do not drink alcohol if: ? Your health care provider tells you not to drink. ? You are , may be , or are planning to become . ?? If you drink alcohol: ? Limit how much you have to 0-1 drink a day. ? Be aware of how much alcohol is in your drink. In the [place] one drink equals one 12 oz bottle of beer (355 mL), one 5 oz glass of wine (148 mL), or one 1?? oz glass of hard liquor (44 mL). Lifestyle ?? Take daily care of your teeth and gums. ?? Stay active. Exercise for at least 30 minutes on 5 or more days each week. ?? Do not use any products that contain nicotine or tobacco, such as cigarettes, e-cigarettes, and chewing tobacco. If you need help quitting, ask your health care provider. ?? If you are sexually active, practice safe sex. Use a condom or other form of control (contraception) in order to prevent and STIs (sexually transmitted infections). ?? If told by your health care provider, take low-dose aspirin daily starting at age 50. What's next? ?? Visit your health care provider once a year for a well check visit. ?? Ask your health care provider how often you should have your eyes and teeth checked. ?? Stay up to date on all vaccines. This information is not intended to replace advice given to you by your health care provider. Make sure you discuss any questions you have with your health care provider. Document Released: 04/19/2016 Document Revised: 12/03/2018 Document Reviewed: 12/03/2018 Answer.To Interactive Patient Education ?? 2020 [email or web address]. WORK [employer]IMMER documented in this encounter Plan of Treatment Not on filedocumented as of this encounter Procedures Procedure Name Priority Date/Time Associated Comments Diagnosis HPV HIGH RISK DNA Routine 02/10/2020 11:18 AM Cervical cancer Results for this DETECTION WITH BODY WORK AUTO TRIMMER screening procedure are in GENOTYPING the results section. PAP TEST Routine 02/10/2020 11:18 AM Cervical cancer Resul ts for this BODY WORK [employer]IMMER screening procedure are i n the results section. documented in this encounter Results HCV Ab Screen w/Reflex to HCV RNA by PCR, S (02/10/2020 12:01 PM BODY WORK AUT[employer] TRIMMER) [facility] Method Time Signature Hepatitis C Negative Negative 02/12/2020 [facility] Antibody 12:26 PM [facility] [employer] [facility] Comment: Skouzc-wk-cqqvad ratio is <1.00. Test Performed by: [facility] [address] [id number] Local Hazmat Driver: Jerardo Qureshi M.D. Ph. D.; CLIA# [id number] Specimen Anatomical Collection Method Collection Time Receive d Time (Source) Location / / Volume Laterality Blood 02/10/2020 12:01 02/11/2020 2:33 PM BODY WORK AUTO TRIMMER PM BODY WORK AUTO TRIMMER Brenda Gannon MD LAB BLOOD ORDERABLES Performing Organization Address City/State/ZIP Code Phon e Number [facility] see result attachment for specific address HPV High Risk DNA Detection with Genotyping (02/10/2020 11:18 AM BODY WORK AUTO TRIMMER) [facility] Method Time Signature Source Endocervical 02/16/2020 [facility] 8:16 PM [facility] [employer] [facility] HPV Type 16 Negative Negative 02/16/2020 [facility] 8:16 PM [facility] [facility] HPV Type 18 Negative Negative 02/16/2020 [facility] 8:16 PM [facility] [facility] HPV non-Type Negative Negative 02/16/2020 [facility] 16 or 18 8:16 PM [facility] [employer] Comment: The following Other High Risk HPV types were not detected: 31, 33, 35, 39, 45, 51, 52, 56, 58, 59, 66, and 68 ADDITIONAL INFORMATIO N This test has been modified from the man ufacturer's instructions. Its performance characteri stics were determined by [facility] in a manner co nsistent with CLIA requirements. This test has not been mattie ared or approved by the U.S. Food and Drug Administration. Test Performed by: [address] [address] Local Hazmat Driver: Jerardo Qureshi M.D. Ph. D.; CLIA# [id number] Specimen (Source) Anatomical Collection Method Collection Time Re ceived Time Location / / Volume Laterality Pap collection 02/10/2020 11:18 0 1:33 bottle AM BODY WORK [employer] TRIMMER PM BODY WORK AUTO TRIMMER Brenda Gannon MD LAB CYTOLOGY ORDERABLES Performing Organization Address City/State/ZIP Code Phon e Number [facility] see result attachment for specific address Pap Smear (02/10/2020 11:18 AM BODY WORK AUTO TRIMMER) Specimen Anatomical Collection Method Collection Time Receive d Time (Source) Location / / Volume Laterality Sure Path PAP, 02/10/2020 11:18 0 2:58 screen AM BODY WORK AUTO TRIMMER PM BODY WORK AUTO TRIMMER Narrative [facility] - 02/05 11:31 AM BODY WORK AUTO TRIMMER ? [facility] ? [address] ?[place] [address] ? Patient: ?MARJAN HAMPTON ?Procedure: ? 02/10/2020 11:18 /Age/Sex: ??1955, 64 Y, F ? Received: ?02/11/2020 14:58 ?Accession #: ?? [id number] Billing: ?[id number] ?Patient Location: [facility] ?OFFICE Ordered by: ?? BRENDA GANNON MD ?Attending: ? BRENDA GANNON MD ? RECYCLING PROGRAM MANAGER CYTOLOGY FINAL REPORT SPECIMEN: (A) SURE PATH PAP, SCREEN SPECIMEN DESCRIPTION: Endocervical Received cloudy specimen in SurePath via l. CLINICAL INFORMATION: LMP: ??/??/2009 ?? Menopause: Y ?? Prev. normal: 04/2016 ??SPECIMEN ADEQUACY: Satisfactory for Evaluation. ??No endoce rvical cells/transformation zone component present. GENERAL CATEGORIZATION: Negative for Intraepithelial Lesion or M alignancy INTERPRETATION/RESULTS: Comment: ??An inadequate endocervical/tr ansformational zone component is not necessarily an indication for immediatel y repeating the pap. ??Correlation with the history and clinical exam are required. PAP Test Disclaimer Cervical cytology is a screening test pr imarily for squamous cancer and its precursors and has associated false-nega tive and false-positive results. Regular sampling and follow-up of unexplained cl inical signs and symptoms are recommended to minimize the impact of false negative and false positive results. Screened By: ROSALIA RICHARDS(ASCP) Signed By: WM SOLIS <Sign Out Dr. Welsh> Reported: ??02/17/2020 ? Page 1 of 1 Brenda Gannon MD LAB CYTOLOGY ORDERABLES Performing Organization Address City/State/ZIP Code Phon e Number [facility] [address] [place] [address] Microalbumin/Creatinine Ratio (02/10/2020 10:51 AM BODY WORK AUTO TRIMMER) athologist Signature Microalbumin,m <7.0 0.0 - 16.6 02/11/2020 [facility] g/day mg/L 1:48 PM BODY WORK AUTO TRIMMER [facility] Comment: . Creatinine, Urine 49 mg/dL 02/11/2020 1:48 PM BODY WORK AUTO TRIMMER [facility] Comment: No established reference range. Microalb/Creat Ratio see below 0 - 24 mg/g 02/11/2020 1:48 P M [facility] Comment: Microalbumin value outside of detectable range. Unable to report Microalbumin/Creatinine ratio. Co nsider 24-hour collection if clinically indicated. Specimen Anatomical Collection Method Collection Time Receive d Time (Source) Location / / Volume Laterality Urine 02/10/2020 10:51 02/11/2020 AM BODY WORK AUTO TRIMMER 12:41 PM BODY WORK AUTO TRIMMER Brenda Gannon MD LAB URINE ORDERABLES Performing Organization Address City/State/ZIP Code Phon e Number [facility] [address] [place] [address] documented in this encounter Visit Diagnoses Diagnosis Well adult exam - Primary Routine general medical examination at a health care facility Essential hypertension Unspecified essential hypertension Cervical cancer screening Screening for malignant neoplasm of the cervix Need for hepatitis C screening test Special screening examination for other specified viral diseases Situational anxiety documented in this encounter Care Teams Coping Machine Operator Relationship Specialty Start Date End Date None, Pcp PCP - General Depalletizer Operator 12/30/19 10/04/20 [address] [place] [address] documented as of this encounter
--- OUTSIDE RECORDS SUMMARY | 2022-01-31 09:50 | XMS_ITS | Encounter Summary ---
:1955 Author Organization [facility] Address [address] [place] [address] Care Team Providers Name Role Phone None, Pcp Primary Care Provider Unavailable Reason for Visit Reason Comments Immunizations SHINGRIX Encounter Details Date Type Department Care Team Description 08/02/2020 Immunization Michelet Wagoner Immunization due (Primary [address] Dx) Michelet Wagoner [place] [address] Social History Tobacco Use Types Packs/Day Years [...] 09/25/2018 relatives? How often do you attend hoahaoism or jewish Never 09/25/2018 services? Do you belong to any clubs or organizations such as No 09/25/2018 hoahaoism groups, unions, fraternal or athletic groups, [...] on file documented as of this encounter Plan of Treatment Not on filedocumented as of this encounter Visit Diagnoses Diagnosis Immunization due - Primary documented in this encounter Care Teams Carton Machine Operator Relationship Specialty Start Date End Date None, Pcp PCP - General Patrol Driver 12/30/19 10/04/20 [address] [place] [address] documented as of this encounter
--- OUTSIDE RECORDS SUMMARY | 2022-01-31 09:50 | XMS_ITS | Encounter Summary ---
:1955 Author Organization [facility] Address [address] [place] [address] Care Team Providers Name Role Phone Brenda Gannon MD Primary Care Provider Unavailable Reason for Visit Reason Comments Immunizations Encounter Details Date Type Department Care Team Description 01/25/2021 Immunization Michelet Wagoner Immunization due (Primary [address]x) [place], [place] [address] Social History Tobacco Use Types [...] 09/25/2018 relatives? How often do you attend cheondoism or orthodoxy Never 09/25/2018 services? Do you belong to any clubs or organizations such as No 09/25/2018 cheondoism groups, unions, fraternal or athletic groups, [...] Primary documented in this encounter Care Teams Sustainability Coach Relationship Specialty Start Date End Date Brenda Gannon MD PCP - General Family Medicine 10/05/20 documented as of this encounter
--- OUTSIDE RECORDS SUMMARY | 2022-01-31 09:50 | XMS_ITS | Encounter Summary ---
:1955 Author Organization [facility] Address [address] [place] [address] Care Team Providers Name Role Phone Jennifer Carranza APRN, PAOLO Primary Care Provider [phone] Reason for Visit Reason Onset Date Comments Ryan Rx 11/09/2021 Encounter Details Date Type Department Care Team Description 11/09/2021 Telephone [place] None, Pcp Diovan Rx [address] [facility] [place] [place] [address] [place] [address] Social History Tobacco Use Types Packs/Day Years [...] 09/25/2018 relatives? How often do you attend jainism or baptism Never 09/25/2018 services? Do you belong to any clubs or organizations such as No 09/25/2018 jainism groups, unions, fraternal or athletic groups, [...] this encounter Miscellaneous Notes Telephone Encounter - Holley Tatum RN - 11/12/2021 9:18 AM CDT Pharmacy is requesting refill of Diovan, pended last Rx. Please advise. Telephone Encounter - Jenise Moraes - 11/09/2021 3:42 PM CDT Vanessa miller orthodontic technician with [facility] (formerly [facility] called asking to talk wit a nurseabout Pt's Diovan Rx. Please call [phone] to advise. documented in this encounter Plan of Treatment Not on filedocumented as of this encounter Visit Diagnoses Diagnosis Essential hypertension Unspecified essential hypertension documented in this encounter Care Teams Bus Steward Relationship Specialty Start Date End Date Jennifer Carranza, BUSINESS OPERATIONS CONSULTANT, [place] PCP - General Family Medicine 11/12/[address] [place] [address] [place] [address] documented as of this encounter
--- OUTSIDE RECORDS SUMMARY | 2022-01-31 09:50 | XMS_ITS | Encounter Summary ---
:1955 Author Organization [facility] Address [address] [place] [address] Care Team Providers Name Role Phone None, Pcp Primary Care Provider Unavailable Reason for Referral Imaging (Routine) - Closed Specialty Diagnoses / Procedures Referred By Contact Refer red To Contact Radiology Diagnoses Hyperlipidemia, unspecified hyperlipidemia type Family history of early CAD Essential hypertension Brenda Gannon MD Procedures CT heart calcium scoring [address] [place] [address] Referral ID Status Reason Start Date Expiration Date Visits Requ ested Visits Authorized [id number] Closed 07/14/2020 01/10/2021 1 1 Encounter Details Date Type Department Care Team Description 07/14/2020 Orders Only Brenda Sewell Family history of early CAD (Primary Dx); [address] [facility] MD Yuri Hyperlipidemia, unspecified hyperlipidemia type; [place] [address] Essential hypertension [phone] Social History Tobacco Use Types Packs/Day Years [...] 09/25/2018 relatives? How often do you attend religion or temple Never 09/25/2018 services? Do you belong to any clubs or organizations such as No 09/25/2018 religion groups, unions, fraternal or athletic groups, or school groups? How often do you attend meetings of the clubs or Never 09/25/2018 organizations you belong to? Are you now , , , , Living wi partner 09/25/2018 never or living with a [...] as of this encounter Plan of Treatment Scheduled Orders Name Type Priority Associated Diagnoses Order S chedule CT heart calcium Imaging Routine Hyperlipidemia, unspecif ied Expected: 07/14/2020, scoring hyperlipidemia t ype Expires: 07/14/2021 Family history o f early CAD Essential hypertension documented as of this encounter Visit Diagnoses Diagnosis Family history of early CAD - Primary Family history of ischemic heart disease Hyperlipidemia, unspecified hyperlipidem ia type Essential hypertension Unspecified essential hypertension documented in this encounter Care Teams Branch Service Leader Relationship Specialty Start Date End Date None, Pcp PCP - General Casting Plug Assembler 12/30/19 10/04/[address] [place] [phone] documented as of this encounter
--- OUTSIDE RECORDS SUMMARY | 2022-01-31 09:50 | XMS_ITS | Encounter Summary ---
:1955 Author Organization [facility] Address [address] [place] [address] Care Team Providers Name Role Phone Brenda Gannon MD Primary Care Provider Unavailable Reason for Visit Reason Comments Med Refill Encounter Details Date Type Department Care Team Description 01/02/2021 Refill Brenda Sewell, Essential hypertension [address] [place] [address] Social History Tobacco Use Types Packs/Day Years [...] 09/25/2018 relatives? How often do you attend buddhism or yarsanism Never 09/25/2018 services? Do you belong to any clubs or organizations such as No 09/25/2018 buddhism groups, unions, fraternal or athletic groups, [...] this encounter Miscellaneous Notes Telephone Encounter - Elsy Madrigal RN - 01/02/2021 3:04 PM CDT Pt due for annual appt 02/09/2021. Please advise on renewal of medication Telephone Encounter - Virginia Rodriguez MA - 01/02/2021 2:38 PM CDT Last visit in provider department: 02/10/2020 Last visit requested medication was discussed: 02/10/2020- Annual exam Upcoming appointment with provider: None Last Rx: Requested Prescriptions Pending Prescriptions Disp Refills ??? Diovan 40 MG tablet [Pharmacy Med Name: DIOVAN TABS 40MG] 60 tablet 11 Sig: TAKE 2 TABLETS ONCE DAILY FOR BLOOD PRESSURE Labs: Component Latest Ref Rng & Units 01/06/2020 Total Protein 6.3 - 8.2 g/dL 7.8 Albumin, Serum 3.5 - 5.0 g/dL 4.7 Total Bilirubin 0.1 - 1.0 mg/dL <0.7 AST 8 - 43 U/L 30 Alkaline Phosphatase 38 - 128 U/L 64 ALT (SGPT) 0 - 34 U/L 28 Sodium 135 - 145 mEq/L 136 Potassium 3.5 - 5.1 mEq/L 4.4 Chloride 98 - 107 mEq/L 100 CO2 22 - 29 mmol/L 27 BUN 5 - 25 mg/dL 17 Creatinine 0.4 - 1.2 mg/dL 0.8 Glucose 70 - 100 mg/dL 95 Calcium, Total,S 8.4 - 10.2 mg/dL 10.1 Vitals: BP Readings from Last 2 Encounters: 12/30/19 126/80 04/19/19 128/82 Patient will be due for an appointment. PSR/Nurse: Please contact patient to assist with scheduling. documented in this encounter Plan of Treatment Not on filedocumented as of this encounter Visit Diagnoses Diagnosis Essential hypertension Unspecified essential hypertension documented in this encounter Care Teams Showroom Sales Consultant Relationship Specialty Start Date End Date Brenda Gannon MD PCP - General Family Medicine 10/05/20 documented as of this encounter
--- OUTSIDE RECORDS SUMMARY | 2022-01-31 09:50 | XMS_ITS | Encounter Summary ---
:1955 Author Organization [facility] Address [address] [place] [address] Care Team Providers Name Role Phone Brenda Gannon MD Primary Care Provider Unavailable Reason for Visit Reason Onset Date Comments Med refills 10/05/2020 Encounter Details Date Type Department Care Team Description 10/05/2020 Telephone Michelet Wagoner None, Pcp Med refills [address] [place], [place] [address] [place] [address] Social History Tobacco Use Types Packs/Day Years [...] 09/25/2018 relatives? How often do you attend rastafarian or restoration Never 09/25/2018 services? Do you belong to any clubs or organizations such as No 09/25/2018 rastafarian groups, unions, fraternal or athletic groups, [...] encounter Miscellaneous Notes Telephone Encounter - Jenise Stout MA - 10/05/2020 11:35 AM CDT Please review and refill as necessary. Last wellness exam was 02/2020, pr notes at that time, she isto return in 1 year for her next annual visit. Attempted to prompt both medications up for renewal, but both are no longer on her insurance formulary. Telephone Encounter - Jenise Moraes - 10/05/2020 10:21 AM CDT Pt called asking to only have Dr. Gannon see her and be her provider, as she prefers a female MD. Ptcalled regarding her recent med refills. Pt said the Diovan and Zolpidem were only filled for 30 days and said it should be for a year, with a 90 day quantity for each refill. Pt prefers the Diovan to be refilled through [facility] and the Zolpidem to be refilled through [facility].Please call Pt at [phone] to advise. documented in this encounter Plan of Treatment Not on filedocumented as of this encounter Visit Diagnoses Diagnosis Insomnia, unspecified type Essential hypertension Unspecified essential hypertension documented in this encounter Care Teams Healthcare Science Specialist Relationship Specialty Start Date End Date Brenda Gannon MD PCP - General Family Medicine 10/05/20 documented as of this encounter
--- OUTSIDE RECORDS SUMMARY | 2022-01-31 09:50 | XMS_ITS | Encounter Summary ---
:1955 Author Organization [facility] Address [address] [place] [address] Care Team Providers Name Role Phone None, Pcp Primary Care Provider Unavailable Reason for Visit Reason Onset Date Comments Med Refill 09/28/2020 Encounter Details Date Type Department Care Team Description 09/28/2020 Refill Brenda Sewell, Essential hypertension [address] [place] [address] Social History Tobacco Use Types Packs/Day Years [...] 09/25/2018 relatives? How often do you attend voodoo or anabaptist Never 09/25/2018 services? Do you belong to any clubs or organizations such as No 09/25/2018 voodoo groups, unions, fraternal or athletic groups, [...] this encounter Miscellaneous Notes Telephone Encounter - Khadra Manning LPN - 09/28/2020 8:03 AM CDT Last visit in provider department: 02/10/2020 Last visit requested medication was discussed: 02/10/2020, annual exam Upcoming appointment with provider: Visit date not found Last Rx: #180, 3 refills 08/26/2019 Requested Prescriptions Pending Prescriptions Disp Refills ??? Diovan 40 MG tablet 180 tablet 3 Sig: Take TWO pills ONCE a day for blood pressure. Labs: Lab Results Component Value Date CREATININE 0.8 01/06/2020 BUN 17 01/06/2020 NA 136 01/06/2020 K 4.4 01/06/2020 CL 100 01/06/2020 CO2 27 01/06/2020 Vitals: BP Readings from Last 2 Encounters: 12/30/19 126/80 04/19/19 128/82 documented in this encounter Plan of Treatment Not on filedocumented as of this encounter Visit Diagnoses Diagnosis Essential hypertension Unspecified essential hypertension documented in this encounter Care Teams Bow Maker Production Relationship Specialty Start Date End Date None, Pcp PCP - General Hook And Eye Sewing Machine Operator 12/30/19 10/04/[address] [place] [address] documented as of this encounter
--- OUTSIDE RECORDS SUMMARY | 2022-01-31 09:50 | XMS_ITS | Clinical Summary ---
:1955 Author Organization [facility] Address [address] [place] [address] Care Team Providers Name Role Phone Jennifer Carranza APRN, PRN OCCUPATIONAL THERAPIST Primary Care Provider [phone] Allergies Active Allergy Reactions Severity Noted Date Comments Dtap-Ipv Vaccine 09/30/2012 Hylan G-F 20 Other Anaphylaxis High 03/03/2018 Wasps Pollen Extract 02/08/2005 Kwznumm-Hilald-Yjrrk Pertussis Wasp Venom Anaphylaxis High 04/11/2006 Medications Medication Sig Dispensed Refills Start End Date Status Date BACILLUS Take 1 tablet 0 Active COAGULANS-INULIN PO by mouth 1 (one) time each day Multiple Take 1 tablet 0 Active Vitamins-Minerals by mouth 1 (MULTIVITAMIN ADULT (one) time PO) each day ondansetron ODT Take 4 mg by 0 A ctive (ZOFRAN ODT) 4 MG mouth every 8 dispersible tablet (eight) hours if needed for nausea CALCIUM PO Take 500 mg 0 Active by mouth 1 (one) time each day EPINEPHrine (EPIPEN Inject 0.3 mL 2 Syringe 3 Active 2-AMISHA) 0.3 MG/0.3ML (0.3 mg 9 injection total) into syringeIndications: the thigh if Allergic reaction, needed for subsequent encounter anaphylaxis. Call 911 after use. cholecalciferol Take 1,000 0 Act jamila (VITAMIN D-3) 25 MCG Units by (1000 UT) tablet mouth 1 (one) time each day Zinc Sulfate (ZINC Take by mouth 0 Active 15 PO) LORazepam (ATIVAN) Take 0.5 5 tablet 0 A ctive 0.5 MG tablets (0.25 0 tabletIndications: mg total) by Situational anxiety mouth 1 (one) time each day if needed for anxiety atorvastatin Take 1 tablet 90 tablet 3 Act jamila (LIPITOR) 10 MG (10 mg total) 1 tabletIndications: e by mouth every night valACYclovir MAY TAKE 1 10 tablet 2 Active (VALTREX) 1 g TABLET TWICE 1 tabletIndications: A DAY AT THE History of cold ONSET OF A sores COLD SORE Synthroid 175 MCG TAKE 1 TABLET 90 tablet 0 Active tabletIndications: ONCE DAILY 1 Hypothyroidism, unspecified type traZODone (DESYREL) TAKE 1 TO 2 180 tablet 0 Active 50 MG TABLETS DAILY 1 tabletIndications: NEEDED FOR Insomnia, SLEEP unspecified type liothyronine TAKE 1 TABLET 90 tablet 0 Act jamila (CYTOMEL) 5 MCG ONCE DAILY 2 tabletIndications: Hypothyroidism, unspecified type zolpidem (AMBIEN) 10 TAKE ONE-HALF 15 tablet 0 Active MG (1/2) TABLET 2 tabletIndications: AT NIGHT Insomnia, NEEDED FOR unspecified type SLEEP Diovan 40 MG TAKE 2 180 tablet 3 Active tabletIndications: TABLETS ONCE 2 Essential DAILY FOR hypertension BLOOD PRESSURE cyclobenzaprine Take 1 tablet 30 tablet 3 04/19/19 Discontinued (FLEXERIL) 10 MG (10 mg total) 9 20 (Therapy tabletIndications: by mouth 3 Completed) Muscle spasms of (three) times lower extremity, a day if unspecified needed for laterality muscle spasms Active Problems Problem Noted Date H/O colonoscopy with polypectomy 02/10/2020 Overview: Colonoscopy 06/12/2007 ([facility]) - multip le polyps 3-7 mm in size; Normal colonoscopy in 06/2011 (P[facility]ard); Colonoscopy with [facility] on 12/17/2016 - repeat in 10 years. Essential hypertension 12/30/2019 Osteopenia 12/30/2019 Knee pain 05/22/2017 Overview: Overview: Added automatically from request for annabelle duncan [id number] Insomnia 02/03/2017 Hyperlipidemia 04/30/2016 Hypothyroidism 12/04/2004 Overview: Overview: Problem list name updated by automated p rocess. Provider to review Resolved Problems Problem Noted Date Resolved Date Essential (primary) hypertension 05/26/2017 020 Dysthymia 06/11/2011 02/10/2020 Overview: Overview: Dysthymic Disorder Encounters Date Type Specialty Care Team Description 01/15/2022 Immunization Family Medicine Immunization due (Primary Dx) 11/09/2021 Telephone Family Medicine None, Pcp Diovan Rx from Last 3 Months Immunizations Name Administration Dates Next Due COVID-19, mRNA, LNP-S, PF, 30mcg/0.3mL 08/15/2021, , 06/21/2020 dose Pfizer Flu Vaccine 50-64yrs Flublok (Egg 12/30/2019, 02/01/2019 Free) Flu Vaccine High Dose 65yrs and Older 01/15/2022, 01/25/2021 IM Influenza (IM) Preservative Free 02/24/2015 Influenza 6mo-49yrs Quad Preservative 03/10/2018, 02/28/2017 , 01/18/2015, Free IM 01/20/2013 Influenza TIV (IM) 04/30/2016, 02/04/2014, 03/20/2012, 02/08/2005 Influenza, Unspecified 01/18/2015, 02/05/2014, 02/27/2013, 01/20/2013, 03/20/2012 Pneumococcal Conjugate PCV20 01/15/2022 Pneumococcal Polysaccharide 01/25/2021 Td 12/14/2001 Tdap 10/14/2008, 11/25/2005 Zoster 05/02/2014 Zoster Recombinant 08/02/2020, 01/14/2020 Family History Medical History Relation Comments Hyperlipidemia Brother Heart attack Father Hypertension Father Prostate cancer Father Osteoporosis Mother Heart attack Paternal Grandfather 50 or 60 Relation Status Comments Brother Father Mother Paternal Grandfather Social History Tobacco Use Types Packs/Day Years [...] 09/25/2018 relatives? How often do you attend baptist or bahai Never 09/25/2018 services? Do you belong to any clubs or organizations such as No 09/25/2018 baptist groups, unions, fraternal or athletic groups, [...] Assigned at Date Recorded Not on file Last Filed Vital Signs Vital Sign Reading Time Taken Comments Blood Pressure 126/80 12/30/2019 8:36 AM CDT Pulse 69 02/10/2020 10:48 AM RN NIGHT Temperature 36.9 ??C (98.4 ??F) 02/10/2020 10:48 AM RN NIGHT Respiratory Rate 16 12/30/2019 8:36 AM CDT Oxygen Saturation 94% 02/10/2020 10:48 AM RN NIGHT Inhaled Oxygen Concentration - - Weight 78.1 kg (172 lb 3.2 oz) 02/10/2020 10:48 AM RN NIGHT Height 156.9 cm (5' 1.77) 02/10/2020 10:48 AM RN NIGHT Body Mass Index 31.73 02/10/2020 10:48 AM RN NIGHT Plan of Treatment Health Maintenance Due Date Last Done Comments CT Colonography 1955 FIT-DNA 1955 Sigmoidoscopy 1955 iFOBT 1955 Fall Risk Performed 08/10/1973 [facility] Annual Wellness 08/10/1973 Mammogram 01/19/2021 01/20/2020, 01/18/2019, 01/18/2019, Additional history exists COVID-19 Vaccine (4 - 12/16/2021 08/15/2021, 03/05/2021, Booster for Pfizer series) 07/17/2020, Additiona l history exists Colonoscopy 12/17/2026 12/17/2016 Colorectal Cancer Screening 12/17/2026 Zoster Vaccines Completed 08/02/2020, 01/14/2020, 05/02/2014 Pneumococcal Vaccine: 65+ Completed 01/15/2022, 01/25/2021 Years HPV Vaccines Aged Out No longer eligib faye based on patient 's age to complete this topic Insurance Payer Benefit Plan / Subscriber ID Effective Dates Phone Addre ss Type Group [employer] [facility] MEDICARE [id number] 2020-[place] [address] [address] [place] [address] [place], [place] MEDICARE [id number] ADVANTAGE Care Teams Capsule Machine Operator Relationship Specialty Start Date End Date Jennifer Carranza APRN, PRN OCCUPATIONAL THERAPIST PCP - General Family Medicine 11/12/[address] [place] [address] [place] [address]
--- OUTSIDE RECORDS SUMMARY | 2022-01-31 09:50 | XMS_ITS | Encounter Summary ---
:1955 Author Organization [facility] Address [address] [place] [address] Care Team Providers Name Role Phone None, Pcp Primary Care Provider Unavailable Encounter Details Date Type Department Care Team Description 02/10/2020 Lab [place] Essential hypertension; [address] Need for hepatitis C screeni ng test [place], [place] [address] Social History Tobacco Use [...] 09/25/2018 relatives? How often do you attend buddhist or muslim Never 09/25/2018 services? Do you belong to any clubs or organizations such as No 09/25/2018 buddhist groups, unions, fraternal or athletic groups, [...] Name Priority Date/Time Associated Diagnosis Comme nts HCV AB SCREEN Routine 02/10/2020 12:01 Need for hepatitis C Re sults for this W/REFLEX TO HCV RNA PM POT PUNCHER screening test proced ure are in BY PCR, S the results section. MICROALBUMIN/CREATI Routine 02/10/2020 10:51 Essential Resu lts for this NINE RATIO AM POT PUNCHER hypertension procedure are i n the results section. documented in this encounter Results HCV Ab Screen w/Reflex to HCV RNA by PCR, S (02/10/2020 12:01 PM [facility]) [facility] Method Time Signature Hepatitis C Negative Negative 02/12/2020 [facility] Antibody 12:26 PM [facility] Comment: Wfyblb-wr-hpjisa ratio is <1.00. Test Performed by: [facility] [address] [id number] 90 Healthcare Administration Intern: Jerardo Qureshi M.D. Ph. D.; CLIA# [id number] Specimen Anatomical Collection Method Collection Time Receive d Time (Source) Location / / Volume Laterality Blood 02/10/2020 12:01 02/11/2020 2:33 PM POT PUNCHER PM POT PUNCHER Brenda Gannon MD LAB BLOOD ORDERABLES Performing Organization Address City/State/ZIP Code Phon e Number [facility] see result attachment for specific address Microalbumin/Creatinine Ratio (02/10/2020 10:51 AM POT PUNCHER) P athologist Signature Microalbumin,m <7.0 0.0 - 16.6 02/11/2020 [facility] g/day mg/L 1:48 PM [facility] Comment: . Creatinine, Urine 49 mg/dL 02/11/2020 1:48 PM [facility] Comment: No established reference range. Microalb/Creat Ratio see below 0 - 24 mg/g 02/11/2020 1:48 P M [facility] Comment: Microalbumin value outside of detectable range. Unable to report Microalbumin/Creatinine ratio. Co nsider 24-hour collection if clinically indicated. Specimen Anatomical Collection Method Collection Time Receive d Time (Source) Location / / Volume Laterality Urine 02/10/2020 10:51 02/11/2020 AM POT PUNCHER 12:41 PM POT PUNCHER Brenda Gannon MD LAB URINE ORDERABLES Performing Organization Address City/State/ZIP Code Phon e Number [facility] [address] [place] [address] documented in this encounter Visit Diagnoses Diagnosis Essential hypertension Unspecified essential hypertension Need for hepatitis C screening test Special screening examination for other specified viral diseases documented in this encounter Care Teams Computing Services Director Relationship Specialty Start Date End Date None, Pcp PCP - General Corporate Bond Trader 12/30/19 10/04/20 [address] [place] [address] documented as of this encounter
--- OUTSIDE RECORDS SUMMARY | 2022-01-31 09:50 | XMS_ITS | Encounter Summary ---
:1955 Author Organization [facility] Address [address] [place] [address] Care Team Providers Name Role Phone Brenda Gannon MD Primary Care Provider Unavailable Reason for Visit Reason Onset Date Comments PA rx 10/16/2020 Encounter Details Date Type Department Care Team Description 10/16/2020 Telephone [place] Brenda Gannon MD PA rx [address] [place] [address] Social History Tobacco Use Types Packs/Day Years [...] 09/25/2018 relatives? How often do you attend catholic or anabaptism Never 09/25/2018 services? Do you belong to any clubs or organizations such as No 09/25/2018 catholic groups, unions, fraternal or athletic groups, [...] this encounter Miscellaneous Notes Telephone Encounter - Viktoria Piero - 10/25/2020 4:14 PM CDT Late entry Pt called about medication and does not want to change medication as she has been taking it for years. I did advise her to call and speak with her insurance company about this. Telephone Encounter - Viktoria Harry - 10/16/2020 11:08 AM CDT Tia from [facility] states that the pt will need to try two of the formulary medications listed below before the Diovan would be covered. Candesartan edarbi Irbesartan Losartan olmesartan telmisartan Valsartan-pt tried on 10/2018-07/2019 LM for pt to call back to discuss medication options. Telephone Encounter - Viktoria Harry - 10/16/2020 8:15 AM CDT Diovan is not on formulary as a brand name to be covered the generic is covered. Please advise documented in this encounter Plan of Treatment Not on filedocumented as of this encounter Visit Diagnoses Not on filedocumented in this encounter Care Teams Adding Machine Mechanic Relationship Specialty Start Date End Date Brenda Gannon MD PCP - General Family Medicine 10/05/20 documented as of this encounter
--- OUTSIDE RECORDS SUMMARY | 2022-01-31 09:50 | XMS_ITS | Encounter Summary ---
:1955 Author Organization [facility] Address [address] [place] [address] Care Team Providers Name Role Phone Brenda Cox MD Primary Care Provider Unavailable Reason for Visit Reason Comments Med Refill Encounter Details Date Type Department Care Team Description 01/25/2021 Refill Brenda Sewell, History of cold sores [address] [place] [address] Social History Tobacco Use Types Packs/Day Years [...] 09/25/2018 relatives? How often do you attend anabaptism or zoroastrian Never 09/25/2018 services? Do you belong to any clubs or organizations such as No 09/25/2018 anabaptism groups, unions, fraternal or athletic groups, [...] encounter Miscellaneous Notes Telephone Encounter - Viktoria Harry - 01/30/2021 11:38 AM CDT Pt was unable to talk. Will call back later Telephone Encounter - Elsy Madrigal RN - 01/30/2021 11:27 AM CDT Please call patient to set up appointment with dr cox Telephone Encounter - Sparkle Patten MA - 01/30/2021 9:43 AM CDT Last visit in provider department: 02/10/2020 Last visit requested medication was discussed: 02/10/2020 Upcoming appointment with provider: none Last Rx: 12/20/2020 # 10, no refill Requested Prescriptions Pending Prescriptions Disp Refills ??? valACYclovir (VALTREX) 1 g tablet [Pharmacy Med Name: VALACYCLOVIR HCL TABS 1000MG] 10 tablet 3 Sig: MAY TAKE 1 TABLET TWICE A DAY AT THE ONSET OF A COLD SORE Pt due to be seen. Please work with your PSR to help pt set up appt. Please advise on extension until appt. documented in this encounter Plan of Treatment Not on filedocumented as of this encounter Visit Diagnoses Diagnosis History of cold sores documented in this encounter Care Teams Patrol Conductor Relationship Specialty Start Date End Date Brenda Cox MD PCP - General Family Medicine 10/05/20 documented as of this encounter
--- OUTSIDE RECORDS SUMMARY | 2022-01-31 09:50 | XMS_ITS | Encounter Summary ---
:1955 Author Organization [facility] Address [address] [place] [address] Care Team Providers Name Role Phone Brenda Gannon MD Primary Care Provider Unavailable Reason for Visit Reason Comments Med Refill Encounter Details Date Type Department Care Team Description 12/19/2020 Refill Brenda Sewell, History of cold sores [address] [place] [address] Social History Tobacco Use Types Packs/Day Years [...] 09/25/2018 relatives? How often do you attend temple or buddhism Never 09/25/2018 services? Do you belong to any clubs or organizations such as No 09/25/2018 temple groups, unions, fraternal or athletic groups, [...] this encounter Miscellaneous Notes Telephone Encounter - Janet Null RN - 12/20/2020 12:03 PM CDT Recall letter to go out . Telephone Encounter - Irina Blackmon MA - 12/20/2020 11:23 AM CDT Last visit in provider department: 02/10/20 Last visit requested medication was discussed: 02/10/20, annual exam Upcoming appointment with provider: none Last Rx: 12/14/19, #10, 2 refills Requested Prescriptions Pending Prescriptions Disp Refills ??? valACYclovir (VALTREX) 1 g tablet [Pharmacy Med Name: VALACYCLOVIR HCL TABS 1000MG] 10 tablet 3 Sig: MAY TAKE 1 TABLET TWICE A DAY AT THE ONSET OF A COLD SORE Patient is due for annual exam. PSR/Nurse: Please contact patient to assist with scheduling. documented in this encounter Plan of Treatment Not on filedocumented as of this encounter Visit Diagnoses Diagnosis History of cold sores documented in this encounter Care Teams Senior Boiler Operator Relationship Specialty Start Date End Date Brenda Gannon MD PCP - General Family Medicine 10/05/20 documented as of this encounter
--- OUTSIDE RECORDS SUMMARY | 2022-01-31 09:50 | XMS_ITS | Encounter Summary ---
:1955 Author Organization [facility] Address [address] [place] [address] Care Team Providers Name Role Phone None, Pcp Primary Care Provider Unavailable Encounter Details Date Type Department Care Team Description 07/17/2020 Orders Only Bredna Sewell Insomnia, unspecified [address] [place] type [place] [address] Social History Tobacco Use Types Packs/Day Years [...] 09/25/2018 relatives? How often do you attend congregation or sikh Never 09/25/2018 services? Do you belong to any clubs or organizations such as No 09/25/2018 congregation groups, unions, fraternal or athletic groups, [...] encounter Visit Diagnoses Diagnosis Insomnia, unspecified type documented in this encounter Care Teams Breaker Boss Relationship Specialty Start Date End Date None, Pcp PCP - General Airfield Operations Specialist 12/30/19 10/04/20 [address] [place] [address] documented as of this encounter
--- OUTSIDE RECORDS SUMMARY | 2022-01-31 09:50 | XMS_ITS | Encounter Summary ---
:1955 Author Organization [facility] Address [address] [place] [address] Care Team Providers Name Role Phone Brenda Gannon MD Primary Care Provider Unavailable Encounter Details Date Type Department Care Team Description 01/25/2021 Orders Only [place] Family Med Brenda Gannon MD [address] [place] [address] Social History Tobacco Use Types Packs/Day Years [...] 09/25/2018 relatives? How often do you attend yarsanism or shinto Never 09/25/2018 services? Do you belong to any clubs or organizations such as No 09/25/2018 yarsanism groups, unions, fraternal or athletic groups, [...] on filedocumented in this encounter Care Teams Supervisor Paper Machine Relationship Specialty Start Date End Date Brenda Gannon MD PCP - General Family Medicine 10/05/20 documented as of this encounter
--- OUTSIDE RECORDS SUMMARY | 2022-01-31 09:50 | XMS_ITS | Encounter Summary ---
:1955 Author Organization [facility] Address [address] [place] [address] Care Team Providers Name Role Phone None, Pcp Primary Care Provider Unavailable Encounter Details Date Type Department Care Team Description 06/28/2020 Orders Only Family [facility] Gordon Townsend MD [address] [facility] [address] [place] [address] [place] [address] [phone] (Wo rk) Social History Tobacco Use Types [...] 09/25/2018 relatives? How often do you attend orthodoxy or cheondoism Never 09/25/2018 services? Do you belong to any clubs or organizations such as No 09/25/2018 orthodoxy groups, unions, fraternal or athletic groups, [...] on filedocumented in this encounter Care Teams Combine Inspector Relationship Specialty Start Date End Date None, Pcp PCP - General Hand Stitcher 12/30/19 10/04/20 [address] [place] [address] documented as of this encounter
--- OUTSIDE RECORDS SUMMARY | 2022-01-31 09:50 | XMS_ITS | Encounter Summary ---
:1955 Author Organization [facility] Address [address] [place] [address] Care Team Providers Name Role Phone None, Pcp Primary Care Provider Unavailable Reason for Visit Reason Onset Date Comments Bladder infection 03/17/2020 Encounter Details Date Type Department Care Team Description 03/17/2020 Telephone [place] Preeti Seay, Bladder infection [address] [place], [place] [address] [facility] [address] [phone] [place] [address] (Wo rk) Social History Tobacco Use Types [...] 09/25/2018 relatives? How often do you attend confucianism or roman catholic Never 09/25/2018 services? Do you belong to any clubs or organizations such as No 09/25/2018 confucianism groups, unions, fraternal or athletic groups, [...] Telephone Encounter - Holley Tatum RN - 03/17/2020 3:24 PM CST Patient informed. RITY ALARM TECHNICIAN Telephone Encounter - Preeti Seay MD - 03/17/2020 3:13 PM CST Let Priscilla know that I have sent to the pharmacy in [place] for Macrobid to take. If she doesn't improve or get worse she should call us back. She could call my cell phone if needed. RITY ALARM TECHNICIAN Telephone Encounter - Holley Tatum RN - 03/17/2020 1:10 PM CST Patient is in [place] and reports having a low grade fever, burning with urination, urinary frequency, and right sided low back pain starting yesterday night. She is requesting and antibiotic be sent to [facility] in [place]. Patient denies any new allergies. Patient does not qualify for UTI protocol. RITY ALARM TECHNICIAN Telephone Encounter - Norma Hein - 03/17/2020 12:58 PM CST Please try again. Patient is urgently waiting. RITY ALARM TECHNICIAN Telephone Encounter - Holley Tatum RN - 03/17/2020 8:18 AM CST LMTC RITY ALARM TECHNICIAN Telephone Encounter - Norma Hein - 03/17/2020 8:02 AM CST Patient is in [place] and has a bladder infection. She is requesting RX. Please call her at [phone]. RITY ALARM TECHNICIAN documented in this encounter Plan of Treatment Not on filedocumented as of this encounter Visit Diagnoses Diagnosis Frequency of micturition - Primary Urinary frequency Dysuria documented in this encounter Care Teams Provider Enrollment Specialist Relationship Specialty Start Date End Date None, Pcp PCP - General Parachute Folder 12/30/19 10/04/20 [address] [place] [address] documented as of this encounter
--- OUTSIDE RECORDS SUMMARY | 2022-01-31 09:50 | XMS_ITS | Encounter Summary ---
:1955 Author Organization [facility] Address [address] [place] [address] Care Team Providers Name Role Phone None, Pcp Primary Care Provider Unavailable Reason for Visit Reason Onset Date Comments Second Shingrix Vaccine due 04/20/2020 Encounter Details Date Type Department Care Team Description 04/20/2020 Telephone Michelet Wagoner None, Pcp Second Shingrix Vaccine [address] [facility] [place], [place] [address] [address] [phone] [place] [address] Social History Tobacco Use Types Packs/Day Years [...] How often do you attend rastafarian or mormon Never 09/25/2018 services? Do you belong to [...] this encounter Miscellaneous Notes Telephone Encounter - Chantel Blair LPN - 04/20/2020 8:55 AM CST She is currently in [place] till May. When she return's she will come in. S ROLLER Telephone Encounter - Chantel Blair LPN - 04/20/2020 8:40 AM CST The patient is due for their #2 Shingrix 03/16/2021. S ROLLER documented in this encounter Plan of Treatment Not on filedocumented as of this encounter Visit Diagnoses Not on filedocumented in this encounter Care Teams Corporate Safety Coordinator Relationship Specialty Start Date End Date None, Pcp PCP - General Medical Case Manager 12/30/19 10/04/[address] [place] [phone] documented as of this encounter
--- OUTSIDE RECORDS SUMMARY | 2022-01-31 09:50 | XMS_ITS | Encounter Summary ---
:1955 Author Organization [facility] Address [address] [place] [address] Care Team Providers Name Role Phone Jennifer Carranza APRN, PAOLO Primary Care Provider [phone] Encounter Details Date Type Department Care Team Description 01/15/2022 Immunization [place] Immunization due (Primary [address] Dx) [place], [place] [address] Social History Tobacco Use [...] 09/25/2018 relatives? How often do you attend roman catholic or pentecostalism Never 09/25/2018 services? Do you belong to any clubs or organizations such as No 09/25/2018 roman catholic groups, unions, fraternal or athletic [...] Primary documented in this encounter Care Teams Benefits Officer Relationship Specialty Start Date End Date Jennifer Carranza APRN, PATIENT SERVICES CLERK PCP - General Family Medicine 11/12/[address] [place] [address] [place] [address] documented as of this encounter
--- OUTSIDE RECORDS SUMMARY | 2022-01-31 09:50 | XMS_ITS | Encounter Summary ---
:1955 Author Organization [facility] Address [address] [place] [address] Care Team Providers Name Role Phone None, Pcp Primary Care Provider Unavailable Reason for Visit Reason Onset Date Comments Med Refill 03/20/2020 Encounter Details Date Type Department Care Team Description 03/20/2020 Refill Brenda Sewell, Insomnia, unspecified [address] [place] [address] Social History Tobacco Use Types Packs/Day Years [...] How often do you attend religion or mu-ism Never 09/25/2018 services? Do you belong to [...] this encounter Miscellaneous Notes Telephone Encounter - Christi Jones LPN - 03/20/2020 7:40 AM VACUUM METALIZING SUPERVISOR Last visit in provider department: 02/10/20 Last visit requested medication was discussed: 02/10/20 WAE Upcoming appointment with provider: Visit date not found Last Rx: 02/11/19 #180 with 3 refills Requested Prescriptions Pending Prescriptions Disp Refills ??? traZODone (DESYREL) 50 MG tablet 180 tablet 3 Sig: TAKE ONE TO TWO TABLETS BY MOUTH EVERY DAY NEEDED FOR SLEEP UM METALIZING SUPERVISOR documented in this encounter Plan of Treatment Not on filedocumented as of this encounter Visit Diagnoses Diagnosis Insomnia, unspecified type documented in this encounter Care Teams Nurse Clinician Relationship Specialty Start Date End Date None, Pcp PCP - General Records Associate 12/30/19 10/04/20 [address] [place] [address] documented as of this encounter
--- OUTSIDE RECORDS SUMMARY | 2022-01-31 09:50 | XMS_ITS | Encounter Summary ---
:1955 Author Organization [facility] Address [address] [place] [address] Care Team Providers Name Role Phone None, Pcp Primary Care Provider Unavailable Reason for Visit Reason Comments Med Refill Encounter Details Date Type Department Care Team Description 03/29/2021 Refill Brenda Sewell, Hypothyroidism, unspecified type; [address] [place] [address] Insomnia, unspecified type; [place] [address] Essential hypertension [phone] Social History Tobacco Use Types Packs/Day Years [...] 09/25/2018 relatives? How often do you attend congregational or pentecostalism Never 09/25/2018 services? Do you belong to any clubs or organizations such as No 09/25/2018 congregational groups, unions, fraternal or athletic groups, [...] Notes Telephone Encounter - Viktoria Piero - 04/19/2021 12:43 PM CST Pt has changed clinics OPEDIC CODER Telephone Encounter - Viktoria Harry - 04/13/2021 11:49 AM CST Sent Geni message OPEDIC CODER Telephone Encounter - Leatha Diehl MA - 04/12/2021 1:21 PM CST Please call patient to schedule appointment. Thank you OPEDIC CODER Telephone Encounter - Brenda Gannon MD - 04/12/2021 12:30 PM CST Patient is due for clinic visit and labs. It has been over a year since I last saw her. OPEDIC CODER Telephone Encounter - Holley Tatum RN - 04/02/2021 1:43 PM CST Review request. OPEDIC CODER Telephone Encounter - Christi Jones LPN - 04/02/2021 12:22 PM ORTHOPEDIC CODER Last visit in provider department: 02/10/20 Last visit requested medication was discussed:02/10/20 Upcoming appointment with provider: Visit date not found Last Rx: Diovan 40 MG tablet 01/03/21 #180 no refills liothyronine (CYTOMEL) 5 MCG tablet 12/20/20 #90 no refills zolpidem (AMBIEN) 10 MG tablet 12/20/20 #15 no refills Requested Prescriptions Pending Prescriptions Disp Refills ??? liothyronine (CYTOMEL) 5 MCG tablet [Pharmacy Med Name: LIOTHYRONINE SODIUM TABS 5MCG] 90 tablet3 Sig: TAKE 1 TABLET ONCE DAILY ??? zolpidem (AMBIEN) 10 MG tablet [Pharmacy Med Name: ZOLPIDEM TARTRATE TABS 10MG] 15 tablet 0 Sig: TAKE ONE-HALF (1/2) TABLET AT NIGHT NEEDED FOR SLEEP ??? Diovan 40 MG tablet 180 tablet 0 Sig: TAKE 2 TABLETS ONCE DAILY FOR BLOOD PRESSURE Labs: 01/06/20 Vitals: BP Readings from Last 2 Encounters: 12/30/19 126/80 04/19/19 128/82 Patient is due for CP and Labs appointment. PSR/Nurse: Please contact patient to assist with scheduling. OPEDIC CODER documented in this encounter Plan of Treatment Not on filedocumented as of this encounter Visit Diagnoses Diagnosis Hypothyroidism, unspecified type Insomnia, unspecified type Essential hypertension Unspecified essential hypertension documented in this encounter Care Teams Boxing Inspector Relationship Specialty Start Date End Date None, Pcp PCP - General Tin Plater 04/19/21 11/11/[address] [place] [phone] documented as of this encounter
--- OUTSIDE RECORDS SUMMARY | 2022-01-31 09:50 | XMS_ITS | Encounter Summary ---
:1955 Author Organization [facility] Address [address] [place] [address] Care Team Providers Name Role Phone Brenda Gannon MD Primary Care Provider Unavailable Reason for Visit Reason Comments Med Refill Encounter Details Date Type Department Care Team Description 12/19/2020 Refill Brenda Sewell, Insomnia, unspecified type; [address] [place] Hypothyroidism, unspecified type [place] [address] Social History Tobacco Use Types Packs/Day Years [...] 09/25/2018 relatives? How often do you attend episcopal or mu-ism Never 09/25/2018 services? Do you belong to any clubs or organizations such as No 09/25/2018 episcopal groups, unions, fraternal or athletic groups, [...] Encounter - Janet Null RN - 12/20/2020 12:04 PM CDT Recall letter to go out in January for annual exam. Telephone Encounter - Sparkle Patten MA - 12/20/2020 11:20 AM CDT Last visit in provider department: 02/10/2020 Last visit requested medication was discussed: 02/10/2020 Upcoming appointment with provider: none Last Rx: zolpidem (AMBIEN) 10 MG tablet last rx, 10/06/2020 # 15, no refill liothyronine (CYTOMEL) 5 MCG tablet last rx, 01/31/2020 # 90, 3 refill Synthroid 175 MCG tablet last rx, 01/31/2020 # 90, 3 refill Requested Prescriptions Pending Prescriptions Disp Refills ??? zolpidem (AMBIEN) 10 MG tablet [Pharmacy Med Name: ZOLPIDEM TARTRATE TABS 10MG] 15 tablet 0 Sig: TAKE ONE-HALF (1/2) TABLET AT NIGHT NEEDED FOR SLEEP ??? liothyronine (CYTOMEL) 5 MCG tablet [Pharmacy Med Name: LIOTHYRONINE SODIUM TABS 5MCG] 90 tablet3 Sig: TAKE 1 TABLET ONCE DAILY ??? Synthroid 175 MCG tablet [Pharmacy Med Name: SYNTHROID TABS 175MCG] 90 tablet 3 Sig: TAKE 1 TABLET ONCE DAILY Labs: Component Latest Ref Rng & Units 01/06/2020 Cholesterol 0 - 199 mg/dL 259 (H) Triglycerides 0 - 149 mg/dL 63 HDL 40 - 250 mg/dL 92 LDL Calculated 0 - 99 mg/dL 154 (H) Fasting? Yes Component Latest Ref Rng & Units 01/06/2020 Cholesterol 0 - 199 mg/dL 259 (H) Triglycerides 0 - 149 mg/dL 63 HDL 40 - 250 mg/dL 92 LDL Calculated 0 - 99 mg/dL 154 (H) Fasting? Yes Vitals: BP Readings from Last 2 Encounters: 12/30/19 126/80 04/19/19 128/82 Pt due to be seen. Please work with your PSR to help pt set up appt. Please advise on extension until appt. documented in this encounter Plan of Treatment Not on filedocumented as of this encounter Visit Diagnoses Diagnosis Insomnia, unspecified type Hypothyroidism, unspecified type documented in this encounter Care Teams Senior Database Administrator Relationship Specialty Start Date End Date Brenda Gannon MD PCP - General Family Medicine 10/05/20 documented as of this encounter
--- OUTSIDE RECORDS SUMMARY | 2022-01-31 09:51 | XMS_ITS | Encounter Summary ---
:1955 Author Organization [facility] Address [address] [place] [address] Care Team Providers Name Role Phone Jennifer Carranza APRN, [place] Primary Care Provider Reason for Visit Reason Onset Date Comments Med Refill Med Refill 07/21/2019 Encounter Details Date Type Department Care Team Description 07/15/2019 Refill [place] Jennifer Carranza, Essential (primary) [address] [place] SKY hypertension [place], [place] [address] [address] [facility] [address] [phone] [place], [place] [address] Social History Tobacco Use Types Packs/Day Years [...] How often do you attend congregation or yazidism Never 09/25/2018 services? Do you belong to [...] Telephone Encounter - Jenise Stout MA - 07/21/2019 3:28 PM CDT Patient notified Rx was sent to pharmacy. Telephone Encounter - Brenda Gannon MD - 07/21/2019 12:37 PM CDT I sent in refill. Brenda Gannon MD Telephone Encounter - Jenise Stout MA - 07/21/2019 11:44 AM CDT Please review and advise for refill of his medication, thank you. Telephone Encounter - Nicole Velasco - 07/21/2019 8:32 AM CDT Patient needs a refill on Diovan and in order for insurance to cover it has to be Diovan not a generic. Please call patient when script has been sent. Telephone Encounter - Gaby Ibarra MA - 07/19/2019 2:17 PM CDT Patient has 1 refill left for 90 day supply per [facility]. documented in this encounter Plan of Treatment Not on filedocumented as of this encounter Visit Diagnoses Diagnosis Essential (primary) hypertension Unspecified essential hypertension documented in this encounter Care Teams Diving Judge Relationship Specialty Start Date End Date Jennifer Carranza, RESOLUTION SPECIALIST, FISH PACKER PCP - General 11/11/17 12/13/19 [address] [facility] [place] [address] documented as of this encounter
--- OUTSIDE RECORDS SUMMARY | 2022-01-31 09:51 | XMS_ITS | Encounter Summary ---
:1955 Author Organization [facility] Address [address] [place] [address] Care Team Providers Name Role Phone Jennifer Carranza DOLLY DRIVER, PIG MACHINE OPERATOR HELPER Primary Care Provider [phone] Reason for Visit Reason Onset Date Comments fever cough 05/05/2019 Encounter Details Date Type Department Care Team Description 05/05/2019 Telephone [place]agon[place] Jennifer Carranza, fever cough [address] DOLLY DRIVER, [place], [place] [address] [facility] [address] [phone] [place], [place] [address] Social History Tobacco Use [...] 09/25/2018 relatives? How often do you attend latter-day or temple Never 09/25/2018 services? Do you belong to any clubs or organizations such as No 09/25/2018 latter-day groups, unions, fraternal or athletic groups, [...] Telephone Encounter - Holley Tatum RN - 05/05/2019 2:37 PM CST LM on identified VM. Patient to call if she has any questions or would like to make an appointment. TEST WORKER Telephone Encounter - Jennifer Carranza APRN, PAOLO - 05/05/2019 2:20 PM TOLL TEST WORKER This certainly could be the influenza I be happy to see her at any point if she feels necessary. John TEST WORKER Telephone Encounter - Holley Tatum RN - 05/05/2019 10:29 AM CST Patient reports that she it started out as a dry cough and it is a bit more productive. She has beentaking ibuprofen and it helps with the fever but it comes back when it wears off. She has a headachefrom the fever. Please advise if patient should be evaluated or treated. TEST WORKER Telephone Encounter - Jenise Moraes - 05/05/2019 9:42 AM CST Pt called stating she is on day two of a fever, cough and just not feeling good. Pt is wondering if there is something going around, if anything she can do to help her symptoms or if she just needs to ride this out. Please call Pt at [phone] to advise. TEST WORKER documented in this encounter Plan of Treatment Not on filedocumented as of this encounter Visit Diagnoses Not on filedocumented in this encounter Care Teams Drum Sander Relationship Specialty Start Date End Date Jennifer Carranza APRN, PIG MACHINE OPERATOR HELPER PCP - General 11/11/17 12/13/[address] [place] [address] [place] [address] documented as of this encounter
--- OUTSIDE RECORDS SUMMARY | 2022-01-31 09:51 | XMS_ITS | Encounter Summary ---
:1955 Author Organization [facility] Address [address] [place] [address] Care Team Providers Name Role Phone Jennifer Carranza OFFICE SERVICES REPRESENTATIVE, RN ACCESS Primary Care Provider [phone] Reason for Visit Reason Onset Date Comments Hearing 11/18/2018 Encounter Details Date Type Department Care Team Description 11/18/2018 Telephone [place] Jennifer Carranza, Hearing [address] OFFICE SERVICES REPRESENTATIVE, [place], [place] [address] [address] [facility] [phone] [place], [place] [address] Social History Tobacco Use [...] 09/25/2018 relatives? How often do you attend pentecostal or sikh Never 09/25/2018 services? Do you belong to any clubs or organizations such as No 09/25/2018 pentecostal groups, unions, fraternal or athletic groups, [...] this encounter Miscellaneous Notes Telephone Encounter - Jennifer Carranza APRN, CNP - 11/23/2018 7:27 PM CDT Recommended the audiology department at [facility] in [place]. Left message on the patient's cell phone. Telephone Encounter - Jennifer Carranza APRN, CNP - 11/20/2018 11:17 AM CDT Will contact the patient next week, leaving a message on her cell phone. Telephone Encounter - Holley Tatum RN - 11/19/2018 1:15 PM CDT Patient is looking to be evaluated for hearing loss by an parking inspector. She would like your opinion on who to see. Telephone Encounter - Jennifer Carranza APRN, CNP - 11/19/2018 1:11 PM CDT Does she does want a hearing test likely due for the [place] patient's? Or an audiology referral? thanks John Telephone Encounter - Holley Tatum RN - 11/19/2018 11:07 AM CDT Do you want to see her to discuss her hearing? We will need an order either way for a hearing screening. Telephone Encounter - Norma Hein - 11/18/2018 2:15 PM CDT Patient is requesting a baseline hearing evaluation. Please call her at [phone]. documented in this encounter Plan of Treatment Not on filedocumented as of this encounter Visit Diagnoses Not on filedocumented in this encounter Care Teams Electric Stove Installer Relationship Specialty Start Date End Date Jennifer Carranza APRN, RN ACCESS PCP - General 11/11/17 12/13/19 100 [place] [address] documented as of this encounter
--- OUTSIDE RECORDS SUMMARY | 2022-01-31 09:51 | XMS_ITS | Encounter Summary ---
:1955 Author Organization [facility] Address [address] [place] [address] Care Team Providers Name Role Phone Jennifer Carranza ASSOCIATE PROFESSOR OF THEATRE, FEATURES EDITOR Primary Care Provider [phone] Encounter Details Date Type Department Care Team Description 11/04/2018 Orders Only [place] Jennifer Carranza, [address] ASSOCIATE PROFESSOR OF THEATRE, FEATURES EDITOR [place], [place] [address] [address] [facility] [address] [phone] [place], [place] [address] Social History Tobacco Use [...] How often do you attend buddhism or voodoo Never 09/25/2018 services? Do you belong to [...] on filedocumented in this encounter Care Teams Quality Control Clerk Relationship Specialty Start Date End Date Jennifer Carranza, ASSOCIATE PROFESSOR OF THEATRE, FEATURES EDITOR PCP - General 11/11/17 12/13/19 100 [facility] [address] documented as of this encounter
--- OUTSIDE RECORDS SUMMARY | 2022-01-31 09:51 | XMS_ITS | Encounter Summary ---
:1955 Author Organization [facility] Address [address] [place] [address] Care Team Providers Name Role Phone Jennifer Carranza APRN, YARD LABORER Primary Care Provider [phone] Reason for Visit Reason Onset Date Comments prescription 08/25/2019 Encounter Details Date Type Department Care Team Description 08/25/2019 Telephone Michelet Wagoner Jennifer Carranza, prescription [address] HEALTH RESEARCHER, [place], [place] [address] [facility] [phone] [place], [place] [address] Social History Tobacco Use [...] How often do you attend baptist or cheondoism Never 09/25/2018 services? Do you [...] Telephone Encounter - Elsy Madrigal RN - 08/27/2019 8:06 AM CDT Pt notified and verbalized understanding Telephone Encounter - Preeti Seay MD - 08/26/2019 5:22 PM CDT Rx sent out per patient's request. Telephone Encounter - Holley Tatum RN - 08/25/2019 4:38 PM CDT Patient was last dispensed valsartan [facility] and she will not take this medication because she said there is concerns of where the medication is sourced from . She is requesting an Rx for the brand name Diovan 40mg take 2 pills once daily be [facility]. Rx was pended properly please review and send rx to [facility]. Telephone Encounter - Deedee Santos - 08/25/2019 4:08 PM CDT Pt wants BRAND NAME Diovan ONLY. She gets it for free. If generic is sent through she has to pay forit. Please reach out to her to let her know when she can expect to get some. documented in this encounter Plan of Treatment Not on filedocumented as of this encounter Visit Diagnoses Diagnosis Essential hypertension - Primary Unspecified essential hypertension documented in this encounter Care Teams Roster Clerk Relationship Specialty Start Date End Date Jennifer Carranza, HEALTH RESEARCHER, YARD LABORER PCP - General 11/11/17 12/13/[address] [place], [place] [address], [place] [address] documented as of this encounter
--- OUTSIDE RECORDS SUMMARY | 2022-01-31 09:51 | XMS_ITS | Encounter Summary ---
:1955 Author Organization [facility] Address [address] [place] [address] Care Team Providers Name Role Phone Jennifer Carranza APRN, CNP Primary Care Provider [phone] Reason for Visit Reason Onset Date Comments Ambien refill 11/03/2019 Encounter Details Date Type Department Care Team Description 11/03/2019 Telephone [place] Preeti Seay MD Ambien refill [address] [place], [place] [address] [place], [place] [phone] (Wo rk) Social History Tobacco Use Types [...] How often do you attend buddhism or jehovah's witness Never 09/25/2018 services? Do you belong to [...] Telephone Encounter - Holley Tatum RN - 11/04/2019 8:17 AM CDT LM on identified VM informing patient. Telephone Encounter - Norma Hein - 11/04/2019 7:57 AM CDT RX faxed. Telephone Encounter - Holley Tatum RN - 11/04/2019 7:50 AM CDT Please fax Rx to [facility]. Telephone Encounter - Preeti Seay MD - 11/03/2019 3:43 PM CDT You can fax the Rx for Ambien to [facility] in [place] and then call Priscilla and let her know that this was done. Telephone Encounter - Rebekah Sweeney MA - 11/03/2019 2:48 PM CDT Sent as Rx refill message Telephone Encounter - Jenise Moraes - 11/03/2019 1:19 PM CDT Pt called stating she is needing her Ambien refilled. Pt uses [facility]. Please call Pt at [phone] to advise on refill status. documented in this encounter Plan of Treatment Not on filedocumented as of this encounter Visit Diagnoses Diagnosis Insomnia, unspecified type documented in this encounter Care Teams Spindle Plumber Relationship Specialty Start Date End Date Jennifer Carranza APRN, ALUMINUM CONTAINER TESTER PCP - General 11/11/17 12/13/19 100 [facility] [place] [address] documented as of this encounter
--- OUTSIDE RECORDS SUMMARY | 2022-01-31 09:51 | XMS_ITS | Encounter Summary ---
:1955 Author Organization [facility] Address [address] [place] [address] Care Team Providers Name Role Phone Jennifer Carranza APRN, CNP Primary Care Provider [phone] Reason for Referral Consultation (Routine) - Closed Specialty Diagnoses / Procedures Referred By Contact Refer red To Contact Diagnoses Screening for osteoporosis Jennifer Carranza, [facility] [place] [facility] - [address] [address] [place] [address] Phone: Fax: Referral ID Status Reason Start Date Expiration Date Visits Requ ested Visits Authorized [id number] Closed 12/08/2018 12/09/2019 1 1 Consultation (Routine) - Closed Specialty Diagnoses / Procedures Referred By Contact Refer red To Contact Diagnoses Screening mammogram, encounter for Jennifer Carranza, [facility] [place] - [address] [address] [place] [address] Phone: Fax: Referral ID Status Reason Start Date Expiration Date Visits Requ ested Visits Authorized [id number] Closed 12/08/2018 12/09/2019 1 1 Encounter Details Date Type Department Care Team Description 12/08/2018 Orders Only [place] Jennifer Carranza Screening mammogram, encount er for (Primary Dx); [address] M, TOP WADDY, DIRECTOR DIGITAL Screening for osteoporosis [place], [place] [address] [facility] [address] [address] [place] [address] [phone] Social History Tobacco Use Types Packs/Day Years [...] 09/25/2018 relatives? How often do you attend moravian or episcopal Never 09/25/2018 services? Do you belong to any clubs or organizations such as No 09/25/2018 moravian groups, unions, fraternal or athletic groups, or [...] of this encounter Plan of Treatment Scheduled Referrals Name Type Priority Associated Diagnoses Order [facility] Ambulatory External Outpatient Referral Routine Screening mamm ogram, Ordered: Referral encounter for 12/08/2018 Ambulatory External Outpatient Referral Routine Screening for Ordered: Referral osteoporosis 12/08/2018 documented as of this encounter Visit Diagnoses Diagnosis Screening mammogram, encounter for - Airam saenz Screening for osteoporosis Special screening for osteoporosis documented in this encounter Care Teams Head Waiter/Waitress Banquet Relationship Specialty Start Date End Date Jennifer Carranza APRN, DIRECTOR DIGITAL PCP - General 11/11/17 12/13/19 [address] [facility] [place] [address] documented as of this encounter
--- OUTSIDE RECORDS SUMMARY | 2022-01-31 09:51 | XMS_ITS | Encounter Summary ---
:1955 Author Organization [facility] Address [address] [place] [address] Care Team Providers Name Role Phone Jennifer Carranza CLINICAL MANAGER, EXPRESSIVE MUSIC THERAPIST Primary Care Provider [phone] Reason for Visit Reason Onset Date Comments RX 02/01/2019 Encounter Details Date Type Department Care Team Description 02/01/2019 Telephone [place] Jennifer Carranza, RX [address] CLINICAL MANAGER, PA[place], [place] [address] [facility] [phone] [place], [place] [address] Social History Tobacco Use [...] 09/25/2018 relatives? How often do you attend gnosticism or anabaptism Never 09/25/2018 services? Do you belong to any clubs or organizations such as No 09/25/2018 gnosticism groups, unions, fraternal or athletic groups, [...] Telephone Encounter - Chantel Blair LPN - 02/01/2019 2:53 PM CDT Patient informed Telephone Encounter - Jennifer Carranza APRN, CNP - 02/01/2019 2:36 PM CDT Completed, please call patient back only if needed. Thanks, John Telephone Encounter - Norma Hein - 02/01/2019 1:59 PM CDT Patient is needing RX for Epi-pen sent to [facility]. documented in this encounter Plan of Treatment Not on filedocumented as of this encounter Visit Diagnoses Diagnosis Allergic reaction, subsequent encounter documented in this encounter Care Teams [place] Hand Relationship Specialty Start Date End Date Jennifer Carranza APRN, PAOLO PCP - General 11/11/17 12/13/19 100 [facility] [place] [address] documented as of this encounter
--- OUTSIDE RECORDS SUMMARY | 2022-01-31 09:51 | XMS_ITS | Encounter Summary ---
:1955 Author Organization [facility] Address [address] [place] [address] Care Team Providers Name Role Phone Jennifer Carranza ENVIRONMENTAL ANALYST, SENIOR CASE MANAGER Primary Care Provider [phone] Reason for Visit Reason Onset Date Comments Med Refill 02/11/2019 Encounter Details Date Type Department Care Team Description 02/11/2019 Refill [place] Jennifer Carranza, Insomnia, unspecified [address] ENVIRONMENTAL ANALYST, SENIOR CASE MANAGER type [place], [place] [address] [phone] [place], [place] [address] Social History Tobacco Use [...] Encounter - Jennifer Carranza APRN, CNP - 02/11/2019 10:53 AM ADMINISTRATIVE PROCESSOR Prescription sent to [facility] NISTRATIVE PROCESSOR Telephone Encounter - Holley Tatum RN - 02/11/2019 10:33 AM CST Please reprocess Rx to [facility]. NISTRATIVE PROCESSOR Telephone Encounter - Jenise Moraes - 02/11/2019 9:39 AM CST Pt called to explain to John carranza that she did initially want her Rx for Trazodone to be filled at [facility]. But she was then contacted by [facility] stating they can give her a 90 day refill for less money. So the Pt would now prefer the refill to go to [facility]. Please call Pt at [phone] to advise. NISTRATIVE PROCESSOR Telephone Encounter - Roseann Cohen MA - 02/11/2019 9:04 AM ADMINISTRATIVE PROCESSOR switching to mail order pharmacy, new rx needed Last visit in Provider Department: 09/25/2018 CP Upcoming appointment with Provider: None Last Rx: 09/30/18 #180, 3 refills (to [facility]) Requested Prescriptions Pending Prescriptions Disp Refills ??? traZODone (DESYREL) 50 MG tablet 180 tablet 3 Sig: TAKE ONE TO TWO TABLETS BY MOUTH EVERY DAY NEEDED FOR SLEEP NISTRATIVE PROCESSOR documented in this encounter Plan of Treatment Not on filedocumented as of this encounter Visit Diagnoses Diagnosis Insomnia, unspecified type documented in this encounter Care Teams Branner Machine Tender Relationship Specialty Start Date End Date Jennifer Carranza APRN, SENIOR CASE MANAGER PCP - General 11/11/17 12/13/19 100 [facility] [place] [address] documented as of this encounter
--- OUTSIDE RECORDS SUMMARY | 2022-01-31 09:51 | XMS_ITS | Encounter Summary ---
:1955 Author Organization [facility] Address [address] [place] [address] Care Team Providers Name Role Phone None, Pcp Primary Care Provider Unavailable Reason for Visit Reason Comments Immunizations Shingrix Encounter Details Date Type Department Care Team Description 01/14/2020 Immunization [place] [address] [place], [place] [address] Social History Tobacco Use [...] 09/25/2018 relatives? How often do you attend rastafari or episcopal Never 09/25/2018 services? Do you belong to any clubs or organizations such as No 09/25/2018 rastafari groups, unions, fraternal or athletic groups, [...] on file documented as of this encounter Progress Notes Holley Tatum RN - 01/14/2020 10:30 AM CDT Patient reports a possible allergy to the Tetanus vaccine she stated she had a low grade fever for afew weeks after and an elevated WBC count however this didn't occur immediately following the vaccine so they aren't sure if this is the cause. Patient has had vaccines since this reaction with no issues. Patient waiting 10 minutes after administration prior to leaving. documented in this encounter Plan of Treatment Not on filedocumented as of this encounter Visit Diagnoses Not on filedocumented in this encounter Care Teams Toy Electric Train Repairer Relationship Specialty Start Date End Date None, Pcp PCP - General Reel Tender 12/30/19 10/04/20 [address] [place] [address] documented as of this encounter
--- OUTSIDE RECORDS SUMMARY | 2022-01-31 09:51 | XMS_ITS | Encounter Summary ---
:1955 Author Organization [facility] Address [address] [place] [address] Care Team Providers Name Role Phone None, Pcp Primary Care Provider Unavailable Reason for Visit Reason Comments Establish Care Encounter Details Date Type Department Care Team Description 12/30/2019 Office Visit Michelet Wagoner Brenda Gannon Essential (primary) hyperten hong (Primary Dx); [address] MD Yuri Mixed hyperlipidemia; BERRY Hernandez Postablativ e hypothyroidism; [address] Osteopenia, unspecified loca tion; [phone] Immunization du e Social History Tobacco Use Types Packs/Day Years [...] How often do you attend spiritism or yazdanism Never 09/25/2018 services? Do you belong to [...] Pressure 126/80 12/30/2019 8:36 AM CDT Pulse 86 12/30/2019 8:36 AM CDT Temperature 36.3 ??C (97.3 ??F) 12/30/2019 8:36 AM CDT Respiratory Rate 16 12/30/2019 8:36 AM CDT Oxygen Saturation 93% 12/30/2019 8:36 AM CDT Inhaled Oxygen Concentration - - Weight - - Height - - Body Mass Index - - documented in this encounter Patient Instructions Patient InstructionsFrances Yuri Gannon MD - 12/30/2019 8:40 AM CDT Images from the original note were [...] at age 55 if you have a 74-auxz-hbgz history of smoking and currently smoke or [...] 04/19/2016 Document Revised: 12/03/2018 Document Reviewed: 12/03/2018 [employer] Patient Education ?? 2020 [employer] documented in this encounter Progress Notes Brenda Gannon MD - 12/30/2019 8:40 AM CDT Images from the original note were not included. Estab Patient Visit Subjective Patient ID: Priscilla Fitzpatrick is a 64 y.o. female. Chief Complaint Patient presents with ??? Establish Care HPI Patient is a 64-year-old female former smoker who is here to establish care. She would like to meet with me and discuss her medical history to determine if she would follow-up for an annual physical exam. Last labs were in September 2018. Past medical history includes history of Graves' disease followed byradioactive iodine ablation. She has been on a stable dose of brand Synthroid and Cytomel. Hypertension has been controlled on brand Diovan. She takes Lipitor 10 mg every other day for hyperlipidemia. She has osteopenia and gets annual vitamin D level and she takes nbip-ojq-tozbxdm vitamin D and calcium. She does regular exercises including weightbearing exercises. Last bone mineral density was in January 2019 at [facility]. She has chronic back and neck pain for which she sees a chiropractor and uses Flexeril rarely and only as needed. She has benign paroxysmal positional vertigo that is been severe at times and she has been seen by physical therapy and [facility] for treatment. She performs home maneuvers as needed. She has longstanding insomnia treated with nightly trazodone and only rarely uses half tablet of Ambien. She reports no side effects from these medications. She reports exercise-induced asthma but has not required an inhaler for some years. 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 She used to travel quite a bit. She and her typically go to [place] for the winter but not sure this year due to current pandemic. She says her is 89 and very healthy. Last colonoscopy was in December 2016. She gets annual mammography. Last Pap smear which was a reflex was in April 2016. Current Outpatient Medications on File Prior to Visit Medication Sig Dispense Refill ??? atorvastatin (LIPITOR) 10 MG tablet Take 1 tablet (10 mg total) by mouth every other day 45 tablet 3 ??? BACILLUS COAGULANS-INULIN PO Take 1 tablet by mouth 1 (one) time each day ??? CALCIUM PO Take 500 mg by mouth 1 (one) time each day ??? cholecalciferol (VITAMIN D-3) 25 MCG (1000 UT) tablet Take 1,000 Units by mouth 1 (one) time each day ??? DIOVAN 40 MG tablet Take TWO pills ONCE a day for blood pressure. 180 tablet 3 ??? Multiple Vitamins-Minerals (MULTIVITAMIN ADULT PO) Take 1 tablet by mouth 1 (one) time each day ??? ondansetron ODT (ZOFRAN ODT) 4 MG dispersible tablet Take 4 mg by mouth every 8 (eight) hours ifneeded for nausea ??? SYNTHROID 175 MCG tablet Take 1 tablet (175 [...] NIGHT NEEDED FOR SLEEP45 tablet 3 ??? cyclobenzaprine (FLEXERIL) 10 MG tablet Take 1 tablet (10 mg total) by mouth 3 (three) times a day if needed for muscle spasms 30 tablet 0 ??? EPINEPHrine (EPIPEN 2-AMISHA) 0.3 MG/0.3ML injection syringe Inject 0.3 mL (0.3 mg total) into the thigh if needed for anaphylaxis. Call 911 after use. 2 Syringe 3 ??? liothyronine (CYTOMEL) 5 MCG tablet Take 1 tablet (5 mcg total) by mouth 1 (one) time each day 90 tablet 3 No current facility-administered medications on file prior to visit. Other, Wasp venom, Dtap-ipv vaccine, Hylan g-f 20, Pollen extract, and Cbkhirh-ewjanv-fencs pertussis The following portions of the patient's chart were reviewed in this encounter and updated as appropriate: Tobacco Allergies Meds Problems Med Hx Surg Hx Fam Hx Review of Systems See HPI. Objective Physical Exam Blood pressure 126/80, pulse 86, temperature 36.3 ??C (97.3 ??F), temperature source Temporal, resp.rate 16, SpO2 93 %. Generally she is well-appearing in acute distress. Assessment/Plan Diagnoses and all orders for this visit: Essential (primary) hypertension - Comprehensive metabolic panel; Future Mixed hyperlipidemia - Comprehensive metabolic panel; Future - Lipid panel; Future Postablative hypothyroidism - TSH; Future Osteopenia, unspecified location - Vitamin D, Total; Future Immunization due - Flu Vaccine 50-64yrs IM Flublok (Egg Free) This was a meet and greet visit so she plans to return for labs and physical exam in the near future. She received her influenza vaccine today. This dictation was created with voice recognition software and therefore may contain errors that went unnoticed. Patient Instructions Patient Education Preventive Care 40-64 [...] at age 55 if you have a 76-lwcg-kcld history of smoking and currently smoke or [...] 04/19/2016 Document Revised: 12/03/2018 Document Reviewed: 12/03/2018 [employer] Interactive Patient Education ?? 2020 [employer] documented in this encounter Plan of Treatment Not on filedocumented as of this encounter Results Vitamin D, Total (01/06/2020 8:24 AM CDT) athologist Signature Vitamin D, 46.4 ng/mL 01/07/2020 [facility] Total 1:46 PM CDT [facility] Comment: Deficient ?<20 ? ng/mL Insufficient ? 20-<30 ??ng/mL Sufficient ? 30-100 ??ng/mL Vitamin D2/D3 fractionation is recommend ed at the discretion of the clinician if Total Vitamin D is w ithin deficient or insufficient range. Specimen Anatomical Collection Method Collection Time Receive d Time (Source) Location / / Volume Laterality Blood 01/06/2020 8:24 AM 0 CDT 12:46 PM CDT Brenda Gannon MD LAB BLOOD ORDERABLES Performing Organization Address City/State/ZIP Code Phon e Number [facility] [address] [place] [address] (ABNORMAL) Lipid panel (01/06/2020 8:24 AM CDT) P athologist Signature Cholesterol 259 (H) 0 - 199 01/06/2020 [facility] mg/dL 4:21 PM CDT [facility] Comment: Recommended by National Cholesterol Education Program (ATP III) -------- Cholesterol Ranges -------- <200 ?Desirable 200-239 ? Borderline high >=240 ? High Triglycerides 63 0 - 149 mg/dL 01/06/2020 4:21 PM CDT [facility] Comment: -------- TRIG Ranges -------- <150 ?Normal 150-199 ? Borderline high 200-499 ? High >=500 ? Very high HDL 92 40 - 250 mg/dL 01/06/2020 4:21 PM CDT [facility] Comment: -------- HDL Ranges -------- <40 ?Low 40-59 ?Normal >=60 ? Optimal LDL Calculated 154 (H) 0 - 99 mg/dL 01/06/2020 4:21 PM CDT [facility] Comment: -------- LDL Ranges -------- <100 ? Optimal 100-129 ?Near optimal/above op timal 130-159 ?Borderline high 160-189 ?High >=190 ?Very high Fasting? Yes 01/06/2020 8:28 AM CDT [facility] Specimen Anatomical Collection Method Collection Time Receive d Time (Source) Location / / Volume Laterality Blood 01/06/2020 8:24 AM 0 2:21 CDT PM CDT Brenda Gannon MD LAB BLOOD ORDERABLES Performing Organization Address City/State/ZIP Code Phon e Number [facility] [address] [place] [address] TSH (01/06/2020 8:24 AM CDT) P athologist Signature TSH, Sensitive 1.32 0.46 - 01/07/2020 [facility] L 4.68 mIU/L 2:20 PM CDT [facility] Comment: The results from this or any other diagn ostic test should be used and interpreted only in the context of the overall clinical picture. Biotin levels in serum remain elevated f or up to 24 hours after oral or intravenous biotin adminis tration and may interfere with this assay to produce unr eliable results. Heterophilic antibodies in serum or plas ma samples may cause interference in immunoassays. ??Exposure to animal antigens, either in the environment or as part of treatment or imaging procedures, may have circulating anti-an imal antibodies present. These antibodies may interfere with the assay reagents to produce unreliable results. ??Results which are inconsistent with clinical observations indicate the need for additional testing. Specimen Anatomical Collection Method Collection Time Receive d Time (Source) Location / / Volume Laterality Blood 01/06/2020 8:24 AM 0 CDT 12:56 PM CDT Brenda Gannon MD LAB BLOOD ORDERABLES Performing Organization Address City/State/ZIP Code Phon e Number [facility] [address] [place] [address] Comprehensive metabolic panel (01/06/2020 8:24 AM CDT) P athologist Signature Total Protein 7.8 6.3 - 8.2 01/06/2020 [facility] g/dL 4:21 PM [facility] Albumin, Serum 4.7 3.5 - 5.0 01/06/2020 [facility] g/dL 4:21 PM [facility] Total Bilirubin <0.7 0.1 - 1.0 01/06/2020 [facility] mg/dL 4:21 PM [facility] AST 30 8 - 43 U/L 01/06/2020 [facility] 4:21 PM [facility] Alkaline 64 38 - 128 01/06/2020 [facility] Phosphatase U/L 4:21 PM [facility] ALT (SGPT) 28 0 - 34 U/L 01/06/2020 [facility] 4:21 PM [facility] Sodium 136 135 - 145 01/06/2020 [facility] mEq/L 4:21 PM [facility] Potassium 4.4 3.5 - 5.1 01/06/2020 [facility] mEq/L 4:21 PM [facility] Chloride 100 98 - 107 01/06/2020 [facility] mEq/L 4:21 PM [facility] CO2 27 22 - 29 01/06/2020 [facility] mmol/L 4:21 PM [facility] BUN 17 5 - 25 01/06/2020 [facility] mg/dL 4:21 PM [facility] Creatinine 0.8 0.4 - 1.2 01/06/2020 [facility] mg/dL 4:21 PM [facility] Glucose 95 70 - 100 01/06/2020 [facility] mg/dL 4:21 PM [facility] Calcium, Total,S 10.1 8.4 - 10.2 01/06/2020 [facility] mg/dL 4:21 PM [facility] Specimen Anatomical Collection Method Collection Time Receive d Time (Source) Location / / Volume Laterality Blood 01/06/2020 8:24 AM 0 2:21 CDT PM CDT Brenda Gannon MD LAB BLOOD ORDERABLES Performing Organization Address City/State/ZIP Code Phon e Number [facility] [address] [place] [address] documented in this encounter Visit Diagnoses Diagnosis Essential (primary) hypertension - Prima ry Unspecified essential hypertension Mixed hyperlipidemia Postablative hypothyroidism Other postablative hypothyroidism Osteopenia, unspecified location Immunization due documented in this encounter Care Teams Solutions Development Analyst Relationship Specialty Start Date End Date None, Pcp PCP - General Feed Research Aide 12/30/19 10/04/[address] [place] [address] documented as of this encounter
--- OUTSIDE RECORDS SUMMARY | 2022-01-31 09:51 | XMS_ITS | Encounter Summary ---
:1955 Author Organization [facility] Address [address] [place] [address] Care Team Providers Name Role Phone Jennifer Carranza APRN, CNP Primary Care Provider [phone] Reason for Visit Reason Comments Sore Throat Encounter Details Date Type Department Care Team Description 04/19/2019 Office Visit [place] Jennifer Carranza Pharyngitis, unspecified gavin ology (Primary Dx); [address] M, [place] History of vaginitis; [place] [address] Insomnia, unspecified type [id number] [place] [address] Social History Tobacco Use Types Packs/Day Years [...] 09/25/2018 relatives? How often do you attend zoroastrian or pentecostalism Never 09/25/2018 services? Do you belong to any clubs or organizations such as No 09/25/2018 zoroastrian groups, unions, fraternal or athletic groups, [...] Sign Reading Time Taken Comments Blood Pressure 128/82 04/19/2019 8:26 AM LOWER SCHOOL MUSIC TEACHER Pulse 82 04/19/2019 8:26 AM LOWER SCHOOL MUSIC TEACHER Temperature 36.1 ??C (97 ??F) 04/19/2019 8:26 AM LOWER SCHOOL MUSIC TEACHER Respiratory Rate 18 04/19/2019 8:26 AM LOWER SCHOOL MUSIC TEACHER Oxygen Saturation 94% 04/19/2019 8:26 AM LOWER SCHOOL MUSIC TEACHER Inhaled Oxygen Concentration - - Weight 75.4 kg (166 lb 3.6 oz) 04/19/2019 8:26 AM LOWER SCHOOL MUSIC TEACHER Height 157.2 cm (5' 1.89) 04/19/2019 8:26 AM LOWER SCHOOL MUSIC TEACHER Body Mass Index 30.51 04/19/2019 8:26 AM LOWER SCHOOL MUSIC TEACHER documented in this encounter Patient Instructions Patient InstructionsChlayton Carranza APRN, CNP - 04/19/2019 8:20 AM LOWER SCHOOL MUSIC TEACHER Take the antibiotic as directed, gargle with salt water, take Tylenol and/or ibuprofen per label directions, call me if symptoms persist or worsen If you have difficulty breathing please be evaluated emergently R SCHOOL MUSIC TEACHER documented in this encounter Progress Notes Jennifer Carranza APRN, CNP - 04/19/2019 8:20 AM CST Estab Patient Visit Subjective Patient ID: Priscilla Fitzpatrick is a 63 y.o. female presenting for the following concerns. Chief Complaint Patient presents with ??? Sore Throat HPI: The patient is a pleasant 63 y.o. year old female presenting ambulatory to the clinical setting withright-sided throat discomfort since yesterday. She reports initially the discomfort was minimal, butthen became quite significant, keeping her awake last night. She reports her throat feels numb. The patient feels her throat discomfort is radiating to her right ear, and there is swelling on the rightside of her neck. The patient reports her voice is muffled. No difficulty opening her mouth, nor breathing. The patient has nasal drainage and postnasal drainage, which she does not feel is causing hersymptoms. No nasal congestion. No fever, no chills. No headache. No nausea, vomiting, and/or diarrhea. The patient has been taking Tylenol and numbing throat spray, which did not affect or alleviate her discomfort. The patient does have a history of right-sided throat discomfort, which responded well to antibiotics. The patient does have a history of vaginal yeast infections while taking antibiotics.The patient is a non-smoker. ROS: GENERAL: No fever, no chills. The patient has insomnia and is requesting to have Ambien renewed, which is effective. EARS: See HPI. The patient is experiencing right ear pain. NOSE: See HPI. The patient has mild nasal congestion and nasal drainage. MOUTH/THROAT: See HPI. The patient has significant right-sided throat pain, which started yesterday. RESPIRATORY: No difficulty breathing. GASTROINTESTINAL: No nausea, vomiting, and/or diarrhea. NEUROLOGICAL: No headache. The following portions of the patient's chart were reviewed in this encounter and updated as appropriate: Tobacco Allergies Meds Problems Med Hx Surg Hx Fam Hx Current Outpatient Medications: ??? atorvastatin (LIPITOR) 10 MG tablet, Take 1 tablet (10 mg total) by mouth every other day, Disp:45 tablet, Rfl: 3 ??? BACILLUS COAGULANS-INULIN PO, Take 1 tablet by mouth 1 (one) time each day , Disp: , Rfl: ??? CALCIUM PO, Take 500 mg by mouth 2 (two) times a day, Disp: , Rfl: ??? liothyronine (CYTOMEL) 5 MCG tablet, Take 1 tablet (5 mcg total) by mouth 1 (one) time each day,Disp: 90 tablet, Rfl: 3 ??? Multiple Vitamins-Minerals (MULTIVITAMIN ADULT PO), Take 1 tablet by mouth 1 (one) time each day, Disp: , Rfl: ??? ondansetron ODT (ZOFRAN ODT) 4 MG dispersible tablet, Take 4 mg by mouth every 8 (eight) hours if needed for nausea, Disp: , Rfl: ??? Probiotic Product (ACIDOPHILUS/GOAT MILK) capsule, Take by mouth, Disp: , Rfl: ??? SYNTHROID 175 MCG tablet, Take 1 tablet (175 mcg total) by mouth 1 (one) time each day, Disp: 90tablet, Rfl: 3 ??? traZODone (DESYREL) 50 MG tablet, TAKE ONE TO TWO TABLETS BY MOUTH EVERY DAY NEEDED FOR SLEEP, Disp: 180 tablet, Rfl: 3 ??? valsartan (DIOVAN) 40 MG tablet, Take 2 tablets (80 mg total) by mouth 1 (one) time each day, Disp: 180 tablet, Rfl: 3 ??? zolpidem (AMBIEN) 10 MG tablet, TAKE ONE-HALF TABLET (5 MG) BY MOUTH AT NIGHT NEEDED FOR SLEEP, Disp: 45 tablet, Rfl: 3 ??? amoxicillin-clavulanate (AUGMENTIN) 875-125 MG per tablet, Take 1 tablet by mouth 2 (two) times a day for 10 days, Disp: 20 tablet, Rfl: 0 ??? cyclobenzaprine (FLEXERIL) 10 MG tablet, Take 1 tablet (10 mg total) by mouth 3 (three) times a day if needed for muscle spasms, Disp: 30 tablet, Rfl: 0 ??? EPINEPHrine (EPIPEN 2-AMISHA) 0.3 MG/0.3ML injection syringe, Inject 0.3 mL (0.3 mg total) into thethigh if needed for anaphylaxis. Call 911 after use., Disp: 2 Syringe, Rfl: 3 Objective Visit Vitals BP 128/82 (BP Location: Left arm, Patient Position: Sitting) Pulse 82 Temp 36.1 ??C (97 ??F) (Temporal) Resp 18 Ht 1.572 m (5' 1.89) Wt 75.4 kg (166 lb 3.6 oz) SpO2 94% BMI 30.51 kg/m?? Smoking Status Never Smoker BSA 1.81 m?? GENERAL: The patient is alert, orientated, and in no apparent distress. HEENT: Head normocephalic. The patient's voice sounds muffled. Eyes - pupils round and reactive to light. Ears - normal canals, normal pearly steel TMs bilaterally. Throat -normal oropharynx, uvula rises midline no appreciable abscesses. Neck - Supple. No cervical or posterior lymphadenopathy, however, there is fullness on the right side when compared to the left, which is tender upon palpation. DIAGNOSTICS: CBC with differential, strep, and throat culture. Lab on 04/19/2019 Component Date Value Ref Range Status ??? Strep A Ag, Rapid 04/19/2019 NEGATIVE Negative Final ??? WBC 04/19/2019 5.8 3.5 - 10.5 K/uL Final ??? RBC 04/19/2019 4.37 3.90 - 5.00 M/uL Final ??? Hemoglobin 04/19/2019 14.3 12.0 - 15.5 g/dL Final ??? Hematocrit 04/19/2019 43.2 35.0 - 44.0 % Final ??? Platelets 04/19/2019 234 150 - 450 K/uL Final ??? MCV 04/19/2019 98.9* 81.6 - 98.3 fL Final ??? MCH 04/19/2019 32.7* 26.0 - 32.0 pg Final ??? MCHC 04/19/2019 33.1 32.0 - 36.0 g/dL Final ??? RDW 04/19/2019 13.7 11.9 - 15.5 % Final ??? Lymphocytes % 04/19/2019 22.3 18.0 - 45.0 % Final ??? Mid-size Cells 04/19/2019 11.4* 3.3 - 10.1 % Final ??? Granulocytes/Neutrophils 04/19/2019 66.3 45.8 - 73.7 % Final ??? Lymphocytes Absolute 04/19/2019 1.3 0.9 - 2.9 K/uL Final ??? MIDS Absolute 04/19/2019 0.7 0.2 - 0.8 K/uL Final ??? Granulocytes/Neutrophils Absolute 04/19/2019 3.8 2.1 - 8.7 K/uL Final ??? Throat Strep A Culture 04/19/2019 Negative for Group A Strep at 48 hrs. Final Assessment/Plan Priscilla was seen today for sore throat. Diagnoses and all orders for this visit: Pharyngitis, unspecified etiology (Primary) - CBC Branch Off w/Diff; Future - amoxicillin-clavulanate (AUGMENTIN) 875-125 MG per tablet; Take 1 tablet by mouth 2 (two) times a day for 10 days - Rapid group A strep screen; Future History of vaginitis - fluconazole (DIFLUCAN) 150 MG tablet; Take 1 tablet (150 mg total) by mouth See administration instructions for 1 dose Take one tab now. Repeat in 7 days if symptoms persist. Insomnia, unspecified type - zolpidem (AMBIEN) 10 MG tablet; TAKE ONE-HALF TABLET (5 MG) BY MOUTH AT NIGHT NEEDED FOR SLEEP Discussed the plan of care with the patient. Prescribed Augmentin 875 mg / 125 mg tablet p.o. twice daily x10 days, quantity 20 tablets with no refills. The patient can gargle with salt water, push oral fluids, obtain plenty of rest, and use ibuprofen per label directions for discomfort. Discussed thesigns and symptoms of a peritonsillar abscess, and if she has any difficulty breathing she should beseen emergently. The patient agrees to notify me in the next 24 hours how she is feeling. She will be notified of her throat culture in 2 days. The patient was prescribed Diflucan 150 mg tablet, takingone at the onset of symptoms, which she may repeat in 7 days if symptoms persist. The patient's Ambien was renewed x 6 months. The patient agrees and understands this plan of care. Jennifer Carranza APRN, PA[place] R SCHOOL MUSIC TEACHER documented in this encounter Plan of Treatment Not on filedocumented as of this encounter Results (ABNORMAL) CBC Branch Off w/Diff (04/19/2019 8:55 AM LOWER SCHOOL MUSIC TEACHER) [facility] Method Time Signature WBC 5.8 3.5 - 10.5 04/19/2019 [facility] COLE[place] K/uL 11:07 AM LOWER SCHOOL MUSIC TEACHER FALLS RBC 4.37 3.90 - 04/19/2019 [facility] COLE[place] 5.00 M/uL 11:07 AM LOWER S[employer]OL MUSIC TEACHER [place]ALLS Hemoglobin 14.3 12.0 - 04/19/2019 [facility] [place] 15.5 g/dL 11:07 AM [employer] MUSIC TEACHER [place] Hematocrit 43.2 35.0 - 04/19/2019 [facility] COLEMAN 44.0 % 11:07 AM LOWER S[employer]OL MUSIC TEACHER [place]ALLS Platelets 234 150 - 450 04/19/2019 [facility] COLE[place] K/uL 11:07 AM LOWER S[employer]OL MUSIC TEACHER [place] MCV 98.9 (H) 81.6 - 04/19/2019 [facility] COLE[place] 98.3 fL 11:07 AM LOWER S[employer]OL MUSIC TEACHER [place] MCH 32.7 (H) 26.0 - 04/19/2019 [facility] COLEMAN 32.0 pg 11:07 AM L[employer] S[employer]OL MUSIC TEACHER [place] MCHC 33.1 32.0 - 04/19/2019 [facility] COLE[place] 36.0 g/dL 11:07 AM L[employer] S[employer] MUSIC TEACHER [place] RDW 13.7 11.9 - 04/19/2019 [facility] [place] 15.5 % 11:07 AM L[employer] MUSIC TEACHER [place] Lymphocytes % 22.3 18.0 - 04/19/2019 [facility] COLEMAN 45.0 % 11:07 AM L[employer] MUSIC TEACHER [place] Mid-size Cells 11.4 (H) 3.3 - 10.1 04/19/2019 [facility] [place] % 11:07 AM [employer] MUSIC TEACHER [place] Granulocytes/Sadie 66.3 45.8 - 04/19/2019 [facility] CO[place] trophils 73.7 % 11:07 AM L[employer] MUSIC TEACHER [place] Lymphocytes 1.3 0.9 - 2.9 04/19/2019 [facility] [place] Absolute K/uL 11:07 AM [employer] MUSIC TEACHER [place] MIDS Absolute 0.7 0.2 - 0.8 04/19/2019 [facility] [place] K/uL 11:07 AM [employer] MUSIC TEACHER [place] Granulocytes/Sadie 3.8 2.1 - 8.7 04/19/2019 [facility] [place] trophils K/uL 11:07 AM L[employer] S[employer] MUSIC TEACHER [place] Absolute Specimen Anatomical Collection Method Collection Time Receive d Time (Source) Location / / Volume Laterality Blood (Blood, 04/19/2019 8:55 AM 04/19/19 20 8:55 Venous) L[employer] S[employer] MUSIC TEACHER AM [employer]OL MUSIC TEACHER Jennifer Carranza APRN, CNP LAB BLOOD ORDERABLES Performing Organization Address City/[facility] Code Phon e Number [facility] [place] [address] [place] [address] Rapid group A strep screen (04/19/2019 8:44 AM L[employer] S[employer]OL MUSIC TEACHER) P athologist Signature Strep A Ag, NEGATIVE Negative 04/19/2019 [facility] [place] Rapid 9:07 AM L[employer] MUSIC TEACHER [place] Specimen Anatomical Collection Method Collection Time Receive d Time (Source) Location / / Volume Laterality Swab 04/19/2019 8:44 AM 0 9:07 [employer]OWER [employer] MUSIC TEACHER AM [employer] MUSIC TEACHER Jennifer Carranza APRN, CNP LAB BODY FLUIDS AND STOOL S ORDERABLES Performing Organization Address City/[facility]/ZIP Code Phon e Number [facility] [place] [address] [place] [address] documented in this encounter Visit Diagnoses Diagnosis Pharyngitis, unspecified etiology - Prim radha History of vaginitis Insomnia, unspecified type documented in this encounter Care Teams Cupola Liner Relationship Specialty Start Date End Date Jennifer Carranza, BUSINESS SERVICES INTERN, EXCHANGE TROUBLE SHOOTER PCP - General 11/11/17 12/13/19 [address] [facility] [place] [address] documented as of this encounter
--- OUTSIDE RECORDS SUMMARY | 2022-01-31 09:51 | XMS_ITS | Encounter Summary ---
:1955 Author Organization [facility] Address [address] [place] [address] Care Team Providers Name Role Phone Jennifer Carranza MARKETING MGR, COMMERCIAL AGENT Primary Care Provider [phone] Encounter Details Date Type Department Care Team Description 11/04/2018 Telephone [place] Jennifer Carranza, [address] MARKETING MGR, [place], [place] [address] [address] [facility] [address] [phone] [place], [place] [address] Social History Tobacco Use [...] 09/25/2018 relatives? How often do you attend mu-ism or bahai Never 09/25/2018 services? Do you belong to any clubs or organizations such as No 09/25/2018 mu-ism groups, unions, fraternal or athletic groups, [...] this encounter Miscellaneous Notes Telephone Encounter - Norma Hein - 11/05/2018 3:08 PM CDT Faxed and sent to scanning. Telephone Encounter - Holley Tatum RN - 11/05/2018 2:59 PM CDT Not scanned, please fax back and scan to chart. Telephone Encounter - Norma Hein - 11/05/2018 2:39 PM CDT Could you check the chart and see if it has been scanned in? Telephone Encounter - Holley Tatum RN - 11/05/2018 2:23 PM CDT Was this faxed? Telephone Encounter - Jennifer Carranza APRN, CNP - 11/05/2018 9:29 AM CDT This form has been completed for Diovan no generic 80 mg daily. Please check the form and fax back. Thanks John Telephone Encounter - Jenise Moraes - 11/04/2018 4:20 PM CDT Blank Rx form received and given to John Carranza. Telephone Encounter - Jennifer Carranza APRN, [place] - 11/04/2018 2:59 PM CDT The patient did not need the Ambien prescription which was destroyed. The patient does need Diovan 40 mg tablet, 2 tablets daily (no generic). Called [facility] and will send a blank prescription form to the office. [facility] will be sending a blank prescription which I would like for this patient. Thanks John documented in this encounter Plan of Treatment Not on filedocumented as of this encounter Visit Diagnoses Not on filedocumented in this encounter Care Teams Relief Operator Relationship Specialty Start Date End Date Jennifer Carranza APRN, COMMERCIAL AGENT PCP - General 11/11/17 12/13/19 100 [place] [address] documented as of this encounter
--- OUTSIDE RECORDS SUMMARY | 2022-01-31 09:51 | XMS_ITS | Encounter Summary ---
:1955 Author Organization [facility] Address [address] [place] [address] Care Team Providers Name Role Phone Unavailable Primary Care Provider Unavailable Reason for Visit Reason Onset Date Comments Med Refill 12/14/2019 Encounter Details Date Type Department Care Team Description 12/14/2019 Refill [place] Preeti Seay History of cold sores (Prima ry Dx); [address] [place] Hyperlipidemia, unspecified hyperlipidem ia type [place], [place] [address] [phone] [place] [address] Social History Tobacco Use Types Packs/Day Years [...] 09/25/2018 relatives? How often do you attend mormon or uatsdin Never 09/25/2018 services? Do you belong to any clubs or organizations such as No 09/25/2018 mormon groups, unions, fraternal or athletic groups, [...] Telephone Encounter - Chantel Blair LPN - 12/14/2019 4:14 PM CDT Patient informed Telephone Encounter - Preeti Seay MD - 12/14/2019 4:10 PM CDT I just sent these Rx's to Priscilla's mail in pharmacy. Anything else that I need to do? Telephone Encounter - Roseann Cohen MA - 12/14/2019 3:31 PM CDT Last visit in provider department: 04/19/2019 for pharyngitis Last visit requested medication was discussed: 09/25/18 WAE Upcoming appointment with provider: none Last Rx: atorvastatin (LIPITOR) 10 MG tablet 10/05/18 #45, 3 refills valACYclovir (VALTREX) 1 g tablet 09/25/18 #4, 5 refills Requested Prescriptions Pending Prescriptions Disp Refills ??? atorvastatin (LIPITOR) 10 MG tablet 45 tablet 0 Sig: Take 1 tablet (10 mg total) by mouth every other day ??? valACYclovir (VALTREX) 1 g tablet 4 tablet 1 Sig: Take 1 tablet (1,000 mg total) by mouth 2 (two) times a day Labs: 10/02/18 Lipid panel Patient is due for an annual appointment. PSR/Nurse: Please contact patient to assist with scheduling. documented in this encounter Plan of Treatment Not on filedocumented as of this encounter Visit Diagnoses Diagnosis History of cold sores - Primary Hyperlipidemia, unspecified hyperlipidem ia type documented in this encounter
--- OUTSIDE RECORDS SUMMARY | 2022-01-31 09:51 | XMS_ITS | Encounter Summary ---
:1955 Author Organization [facility] Address [address] [place] [address] Care Team Providers Name Role Phone Jeninfer Carranza BELLING MACHINE OPERATOR, CONCRETE PAVEMENT INSTALLER Primary Care Provider Encounter Details Date Type Department Care Team Description 12/08/2018 Telephone [place] Jennifer Carranza, [address] BELLING MACHINE OPERATOR, [place], [place] [address] [address] [facility] [phone] [place], [place] [address] Social History Tobacco Use [...] How often do you attend moravian or mormonism Never 09/25/2018 services? Do you belong to [...] encounter Miscellaneous Notes Telephone Encounter - Jenise Moraes - 12/08/2018 11:09 AM CDT Both referrals and face sheet faxed to [facility] radiology as requested. Telephone Encounter - Holley Tatum RN - 12/08/2018 10:51 AM CDT Please fax orders to [facility]. Telephone Encounter - Chantel Blair LPN - 12/08/2018 9:39 AM CDT Priscilla has been informed Telephone Encounter - Jennifer Carranza APRN, CNP - 12/08/2018 9:17 AM CDT Please contact the patient and let her know that I have sent an order for her screening DEXA scan and mammogram to [facility]. They will contact her to schedule. Thanks John documented in this encounter Plan of Treatment Not on filedocumented as of this encounter Visit Diagnoses Not on filedocumented in this encounter Care Teams Housekeeper Nanny Relationship Specialty Start Date End Date Jennifer Carranza APRN, [place]O PCP - General 11/11/17 12/13/19 100 [place] [address] documented as of this encounter
--- OUTSIDE RECORDS SUMMARY | 2022-01-31 09:51 | XMS_ITS | Encounter Summary ---
:1955 Author Organization [facility] Address [address] [place] [address] Care Team Providers Name Role Phone None, Pcp Primary Care Provider Unavailable Reason for Visit Reason Onset Date Comments refills/ lab work 12/31/2019 Encounter Details Date Type Department Care Team Description 12/31/2019 Telephone [place] Brenda Gannon, refills/ lab work [address] [place], [place] [address] Social History Tobacco Use [...] 09/25/2018 relatives? How often do you attend restorationist or moravian Never 09/25/2018 services? Do you belong to any clubs or organizations such as No 09/25/2018 restorationist groups, unions, fraternal or athletic groups, [...] Telephone Encounter - Chantel Blair LPN - 01/03/2020 12:25 PM CDT Noted Telephone Encounter - Holley Tatum RN - 12/31/2019 2:13 PM CDT Patient informed she will have labs done next and then will let us know what medications she needs reordered. Telephone Encounter - Jenise Moraes - 12/31/2019 12:12 PM CDT Pt called stating there should have been some refills from [facility] that need to be refilled.Pt also scheduled some fasting lab work for 01/06/20 and she is wanting to make sure a fullpanel is ordered. Pt said she was ok with having Dr. Gannon see her lab results before the refills are taken care of. Please call Pt at [phone] to advise. documented in this encounter Plan of Treatment Not on filedocumented as of this encounter Visit Diagnoses Not on filedocumented in this encounter Care Teams Manager Competitive Intelligence Relationship Specialty Start Date End Date None, Pcp PCP - General Chairman And Ceo 12/30/19 10/04/[address] [place] [id number] documented as of this encounter
--- OUTSIDE RECORDS SUMMARY | 2022-01-31 09:51 | XMS_ITS | Encounter Summary ---
:1955 Author Organization [facility] Address [address] [place] [address] Care Team Providers Name Role Phone Jennifer Carranza SOLAR SALES REPRESENTATIVE AND ASSESSOR, CREATIVE ENGAGEMENT DIRECTOR Primary Care Provider [phone] Reason for Visit Reason Onset Date Comments Vertigo 02/26/2019 Encounter Details Date Type Department Care Team Description 02/26/2019 Telephone [place] Jennifer Carranza, Vertigo [address] SOLAR SALES REPRESENTATIVE AND ASSESSOR, [place], [place] [address] [address] [facility] [phone] [place], [place] [address] Social History Tobacco Use [...] 09/25/2018 relatives? How often do you attend alevism or zoroastrian Never 09/25/2018 services? Do you belong to any clubs or organizations such as No 09/25/2018 alevism groups, unions, fraternal or athletic groups, [...] Telephone Encounter - Chantel Blair LPN - 02/26/2019 1:19 PM CST SENT M BLOCKER Telephone Encounter - Jennifer Carranza APRN, CNP - 02/26/2019 1:13 PM STEAM BLOCKER Referral completed. M BLOCKER Telephone Encounter - Chantel Blair LPN - 02/26/2019 1:07 PM CST Michelet Martinez P.T. M BLOCKER Telephone Encounter - Norma Hein - 02/26/2019 12:17 PM CST Patient is having dizziness again and is wondering if John Dillon could send referral for PT as discussed in previous visit. She would like appointment today if possible. You can reach her at [phone] M BLOCKER documented in this encounter Plan of Treatment Not on filedocumented as of this encounter Visit Diagnoses Not on filedocumented in this encounter Care Teams Fuels Sales Representative Relationship Specialty Start Date End Date Jennifer Carranza APRN, PAOLO PCP - General 11/11/17 12/13/19 100 [place] [address] documented as of this encounter
--- OUTSIDE RECORDS SUMMARY | 2022-01-31 09:51 | XMS_ITS | Encounter Summary ---
:1955 Author Organization [facility] Address [address] [place] [address] Care Team Providers Name Role Phone Jennifer Carranza APRN, PAOLO Primary Care Provider [phone] Encounter Details Date Type Department Care Team Description 04/19/2019 Lab [place] Pharyngitis, unspecified [address] etiology [place], [place] [address] Social History Tobacco Use [...] How often do you attend orthodoxy or congregational Never 09/25/2018 services? Do you belong to [...] Priority Date/Time Associated Diagnosis Comme nts CBC BRANCH OFFICE Routine 04/19/2019 8:55 AM Pharyngitis, Resu lts for this W/DIFF LAWYERS unspecified etiology procedu re are in the results section. RAPID GROUP A STREP Routine 04/19/2019 8:44 AM Pharyngitis, Re sults for this SCREEN LAWYERS unspecified etiology procedu re are in the results section. STREP A CULTURE, Routine 04/19/2019 8:44 AM Pharyngitis, Resul ts for this THROAT LAWYERS unspecified etiology procedu re are in the results section. documented in this encounter Results (ABNORMAL) CBC Branch Off w/Diff (04/19/2019 8:55 AM LAWYERS) [facility] Method Time Signature WBC 5.8 3.5 - 10.5 04/19/2019 [facility] K/uL 11:07 AM [place] RBC 4.37 3.90 - 04/19/2019 [facility] 5.00 M/uL 11:07 AM [place] Hemoglobin 14.3 12.0 - 04/19/2019 [facility] 15.5 g/dL 11:07 AM [place] Hematocrit 43.2 35.0 - 04/19/2019 [facility] 44.0 % 11:07 AM [place] Platelets 234 150 - 450 04/19/2019 [facility] K/uL 11:07 AM [place] MCV 98.9 (H) 81.6 - 04/19/2019 [facility] 98.3 fL 11:07 [place] MCH 32.7 (H) 26.0 - 04/19/2019 [facility] 32.0 pg 11:07 AM [place] MCHC 33.1 32.0 - 04/19/2019 [facility] 36.0 g/dL 11:07 [place] RDW 13.7 11.9 - 04/19/2019 [facility] 15.5 % 11:07 AM [place] Lymphocytes % 22.3 18.0 - 04/19/2019 [facility] 45.0 % 11:07 AM [place] Mid-size Cells 11.4 (H) 3.3 - 10.1 04/19/2019 [facility] % 11:07 AM [place] Granulocytes/Sadie 66.3 45.8 - 04/19/2019 [facility] trophils 73.7 % 11:07 AM [place] Lymphocytes 1.3 0.9 - 2.9 04/19/2019 [facility] Absolute K/uL 11:07 AM [place] MIDS Absolute 0.7 0.2 - 0.8 04/19/2019 [facility] K/uL 11:07 AM [place] Granulocytes/Sadie 3.8 2.1 - 8.7 04/19/2019 [facility] trophils K/uL 11:07 AM [place] Absolute Specimen Anatomical Collection Method Collection Time Receive d Time (Source) Location / / Volume Laterality Blood (Blood, 04/19/2019 8:55 AM 04/19/19 20 8:55 Venous) [facility] AM [facility] Jennifer Carranza APRN, CNP LAB BLOOD ORDERABLES Performing Organization Address City/[facility]/ZIP Code Phon e Number [facility] [place] [address] [place] [address] Strep A culture, throat (04/19/2019 8:44 AM LAWYERS) Patholo gist Method Time Signature Throat Strep Negative for 04/21/2019 [facility] A Culture Group A 6:59 AM LAWYERS [facility] CENTER Strep at 48 LABORATORY hrs. Specimen Anatomical Collection Method Collection Time Receive d Time (Source) Location / / Volume Laterality 04/19/2019 8:44 AM 0 LAWYERS 11:55 AM [facility]ERS Jennifer Carranza APRN, CNP LAB MICROBIOLOGY - GENERA L ORDERABLES Performing Organization Address City/[facility]/ZIP Code Phon e Number [facility] [address] [place] [id number] Rapid group A strep screen (04/19/2019 8:44 AM LAWYERS) P athologist Signature Strep A Ag, NEGATIVE Negative 04/19/2019 [facility] [place] Rapid 9:07 AM [place] Specimen Anatomical Collection Method Collection Time Receive d Time (Source) Location / / Volume Laterality Swab 04/19/2019 8:44 AM 0 9:07 [facility] AM [facility]YERS Jennifer Carranza APRN, CNP LAB BODY FLUIDS AND STOOL S ORDERABLES Performing Organization Address City/[facility]/ZIP Code Phon e Number [facility] [place] [address] [place] [address] documented in this encounter Visit Diagnoses Diagnosis Pharyngitis, unspecified etiology documented in this encounter Care Teams Mri Specialist Relationship Specialty Start Date End Date Jennifer Carranza APRN, CLAMP TRUCK DRIVER PCP - General 11/11/17 12/13/19 [address] [facility] [place] [address] documented as of this encounter
--- OUTSIDE RECORDS SUMMARY | 2022-01-31 09:51 | XMS_ITS | Encounter Summary ---
:1955 Author Organization [facility] Address [address] [place] [address] Care Team Providers Name Role Phone None, Pcp Primary Care Provider Unavailable Reason for Visit Reason Onset Date Comments RX 01/31/2020 Encounter Details Date Type Department Care Team Description 01/31/2020 Telephone Michelet Wagoner None, Pcp RX [address] [place], [place] [address] [place] [address] Social History Tobacco Use Types [...] How often do you attend catholic or rastafari Never 09/25/2018 services? Do you belong to [...] Telephone Encounter - Holley Tatum RN - 01/31/2020 9:45 AM CDT Patient requesting refills of her Synthroid [facility] RN verified dose with patient. Please review Rx request. Lab Results Component Value Date TSH 1.32 01/06/2020 Telephone Encounter - Norma Hein - 01/31/2020 9:41 AM CDT Patient had requested RX refills a week ago and has not heard anything. Please call her at [phone]. documented in this encounter Plan of Treatment Not on filedocumented as of this encounter Visit Diagnoses Diagnosis Hypothyroidism, unspecified type documented in this encounter Care Teams Practice Business Asst Relationship Specialty Start Date End Date None, Pcp PCP - General Materials Buyer 12/30/19 10/04/[address] [place] [id number] documented as of this encounter
--- OUTSIDE RECORDS SUMMARY | 2022-01-31 09:51 | XMS_ITS | Encounter Summary ---
:1955 Author Organization [facility] Address [address] [place] [address] Care Team Providers Name Role Phone None, Pcp Primary Care Provider Unavailable Encounter Details Date Type Department Care Team Description 01/06/2020 Lab [place] Osteopenia, unspecified loca tion; [address] Mixed hyperlipidemia; [place], [place] [address] Postablative hypothyroidism; [phone] Essential (prim radha) hypertension Social History Tobacco Use Types Packs/Day Years [...] 09/25/2018 relatives? How often do you attend episcopalian or roman catholic Never 09/25/2018 services? Do you belong to any clubs or organizations such as No 09/25/2018 episcopalian groups, unions, fraternal or athletic groups, [...] Name Priority Date/Time Associated Diagnosis Comme nts GLOMERULAR FILTRATION Routine 01/06/2020 8:24 Essential (prima ry) Results for this RATE AM CDT hypertension procedure are in Mixed hyperlipidemia the res ults section. VITAMIN D, TOTAL Routine 01/06/2020 8:24 Osteopenia, Results for this AM CDT unspecified location procedu re are in the results section. TSH Routine 01/06/2020 8:24 Postablative Results for this AM CDT hypothyroidism procedure are in the results section. LIPID PANEL Routine 01/06/2020 8:24 Mixed hyperlipidemia Resu lts for this AM CDT procedure are i n the results section. COMPREHENSIVE Routine 01/06/2020 8:24 Essential (primary) Resu lts for this METABOLIC PANEL AM CDT hypertension procedure are in Mixed hyperlipidemia the res ults section. documented in this encounter Results Glomerular filtration rate (GFR) (01/06/2020 8:24 AM CDT) athologist Signature GFR >60 01/06/2020 [facility] 4:21 PM CDT [facility] >60 01/06/2020 [facility] [place] GFR 4:21 PM CDT [facility] Comment: GFR calculated from serum creatinine v alue Chronic Kidney Disease less than 60 mL/m in/1.73 m2 Kidney Failure less than 15 mL/min/1.73 m2 Note: effective 08/20/06 IDMS-Traceable MDRD Study Equation used. Specimen Anatomical Collection Method Collection Time Receive d Time (Source) Location / / Volume Laterality 01/06/2020 8:24 AM 0 8:24 CDT AM CDT Brenda Gannon MD LAB BLOOD ORDERABLES Performing Organization Address City/State/ZIP Code Phon e Number [facility] [address] [place] [address] Comprehensive metabolic panel (01/06/2020 8:24 AM CDT) athologist Signature Total Protein 7.8 6.3 - 8.2 01/06/2020 [facility] g/dL 4:21 PM CDT [facility] Albumin, Serum 4.7 3.5 - 5.0 01/06/2020 [facility] g/dL 4:21 PM CDT [facility] Total Bilirubin <0.7 0.1 - 1.0 01/06/2020 [facility] mg/dL 4:21 PM [facility] AST 30 8 - 43 U/L 01/06/2020 [facility] 4:21 PM [facility] Alkaline 64 38 - 128 01/06/2020 [facility] Phosphatase U/L 4:21 PM [facility] ALT (SGPT) 28 0 - 34 U/L 01/06/2020 [facility] 4:21 PM [facility] Sodium 136 135 - 145 01/06/2020 [facility] mEq/L 4:21 PM [facility] Potassium 4.4 3.5 - 5.1 01/06/2020 [facility] mEq/L 4:21 PM [facility] Chloride 100 98 - 107 01/06/2020 [facility] mEq/L 4:21 PM [facility] CO2 27 22 - 29 01/06/2020 [facility] mmol/L 4:21 PM [facility] BUN 17 5 - 25 01/06/2020 [facility] mg/dL 4:21 PM [facility] Creatinine 0.8 0.4 - 1.2 01/06/2020 [facility] mg/dL 4:21 PM [facility] Glucose 95 70 - 100 01/06/2020 [facility] mg/dL 4:21 PM [facility] Calcium, Total,S 10.1 8.4 - 10.2 01/06/2020 [facility] mg/dL 4:21 PM [facility] Specimen Anatomical Collection Method Collection Time Receive d Time (Source) Location / / Volume Laterality Blood 01/06/2020 8:24 AM 0 2:21 CDT PM CDT Brenda Gannon MD LAB BLOOD ORDERABLES Performing Organization Address City/State/ZIP Code Phon e Number [facility] [address] [place] [address] TSH (01/06/2020 8:24 AM CDT) P athologist Signature TSH, Sensitive 1.32 0.46 - 01/07/2020 [facility] 4.68 mIU/L 2:20 PM T [facility] Comment: The results from this [...] Organization Address City/State/ZIP Code Phon e Number [facility] [address] [place] [address] (ABNORMAL) Lipid panel (01/06/2020 8:24 AM CDT) athologist Signature Cholesterol 259 (H) 0 - 199 01/06/2020 [facility] mg/dL 4:21 PM [facility] Comment: Recommended by National Cholesterol Education Program (ATP III) -------- Cholesterol Ranges -------- <200 ?Desirable 200-239 ? Borderline high >=240 ? High Triglycerides 63 0 - 149 mg/dL 01/06/2020 4:21 PM CDT [facility] Comment: -------- TRIG Ranges -------- <150 ?Normal 150-199 ? Borderline high 200-499 ? High >=500 ? Very high HDL 92 40 - 250 mg/dL 01/06/2020 4:21 PM CDT [facility] Comment: -------- HDL Ranges -------- <40 ?Low 40-59 ?Normal >=60 ? Optimal LDL Calculated 154 (H) 0 - 99 mg/dL 01/06/2020 4:21 PM CDT [facility] Comment: -------- LDL Ranges -------- <100 ? Optimal 100-129 ?Near optimal/above op timal 130-159 ?Borderline high 160-189 ?High >=190 ?Very high Fasting? Yes 01/06/2020 8:28 AM CDT [facility] Specimen Anatomical Collection Method Collection Time Receive d Time (Source) Location / / Volume Laterality Blood 01/06/2020 8:24 AM 0 2:21 CDT PM CDT Brenda Gannon MD LAB BLOOD ORDERABLES Performing Organization Address City/[facility] Code Phon e Number [facility] [address] [place] [address] Vitamin D, Total (01/06/2020 8:24 AM CDT) P athologist Signature Vitamin D, 46.4 ng/mL 01/07/2020 [facility] Total 1:46 PM CDT [facility] Comment: [...] Organization Address City/State/ZIP Code Phon e Number [facility] [address] [place] [address] documented in this encounter Visit Diagnoses Diagnosis Osteopenia, unspecified location Mixed hyperlipidemia Postablative hypothyroidism Other postablative hypothyroidism Essential (primary) hypertension Unspecified essential hypertension documented in this encounter Care Teams Coverstitch Machine Operator Relationship Specialty Start Date End Date None, Pcp PCP - General Flosser 12/30/19 10/04/[address] [place] [address] documented as of this encounter
--- OUTSIDE RECORDS SUMMARY | 2022-01-31 09:51 | XMS_ITS | Encounter Summary ---
:1955 Author Organization [facility] Address [address] [place] [address] Care Team Providers Name Role Phone None, Pcp Primary Care Provider Unavailable Reason for Visit Reason Onset Date Comments 12/30/2019 Encounter Details Date Type Department Care Team Description 12/30/2019 Telephone Michelet Wagoner None, Pcp FYI [address] [place], [place] [address] [place] [address] Social History Tobacco Use Types [...] 09/25/2018 relatives? How often do you attend tenriism or adventist Never 09/25/2018 services? Do you belong to any clubs or organizations such as No 09/25/2018 tenriism groups, unions, fraternal or athletic groups, [...] Telephone Encounter - Holley Tatum RN - 01/12/2020 9:14 AM CDT Noted. Telephone Encounter - Jenise Moraes - 01/12/2020 9:05 AM CDT Appt for Shingrix shot scheduled for Friday01/14/20. Telephone Encounter - Norma Hein - 12/30/2019 3:20 PM CDT Left message. Telephone Encounter - Holley Tatum RN - 12/30/2019 3:02 PM CDT Noted, please call patient to schedule her Shingrix. Telephone Encounter - Janice Payan - 12/30/2019 1:21 PM CDT FYI: Pt calls stating she was told to contact her insurance in regards to the Shingles vaccine. She states her insurance will cover these, so she would like them set aside for her so she can come in and receive it. documented in this encounter Plan of Treatment Not on filedocumented as of this encounter Visit Diagnoses Not on filedocumented in this encounter Care Teams Marketing Liaison Relationship Specialty Start Date End Date None, Pcp PCP - General Associate Team Physician 12/30/19 10/04/[address] [place] [phone] documented as of this encounter
--- OUTSIDE RECORDS SUMMARY | 2022-01-31 09:51 | XMS_ITS | Encounter Summary ---
:1955 Author Organization [facility] Address [address] [place] [address] Care Team Providers Name Role Phone Jennifer Carranza SHIFT SUPERVISOR MELTING, HOT WORT SETTLER Primary Care Provider [phone] Encounter Details Date Type Department Care Team Description 01/19/2019 Telephone [place]he[place] Jennifer Carranza, [address] SHIFT SUPERVISOR MELTING, PAOLO [place], [place] [address] [address] [facility] [address] [phone] [place], [place] [address] Social History Tobacco Use [...] 09/25/2018 relatives? How often do you attend jewish or faith Never 09/25/2018 services? Do you belong to any clubs or organizations such as No 09/25/2018 jewish groups, unions, fraternal or athletic groups, [...] Encounter - Jennifer Carranza APRN, CNP - 01/19/2019 1:43 PM CDT The patient was notified of her DEXA scan report, and will continue to monitor, and calcium supplement. documented in this encounter Plan of Treatment Not on filedocumented as of this encounter Visit Diagnoses Diagnosis Muscle spasms of lower extremity, unspec ified laterality - Primary documented in this encounter Care Teams Welfare Supervisor Relationship Specialty Start Date End Date Jennifer Carranza APRN, CNP PCP - General 11/11/17 12/13/19 [address] [facility] [place] [address] documented as of this encounter
--- OUTSIDE RECORDS SUMMARY | 2022-01-31 09:52 | XMS_ITS | Encounter Summary ---
:1955 Author Organization [facility] Address [address] [place] [address] Care Team Providers Name Role Phone Jennifer Carranza APRN, CNP Primary Care Provider [phone] Encounter Details Date Type Department Care Team Description 03/10/2018 Immunization [place] [address] [place], [place] [address] Social History Tobacco Use [...] 09/25/2018 relatives? How often do you attend mosque or zoroastrianism Never 09/25/2018 services? Do you belong to any clubs or organizations such as No 09/25/2018 mosque groups, unions, fraternal or athletic groups, [...] on filedocumented in this encounter Care Teams Facility Operations Manager Relationship Specialty Start Date End Date Jennifer Carranza, ACCOUNT RECEIVABLE CLERK, COMMERCIAL OCEAN CLAMMER PCP - General 11/11/17 12/13/19 [address] [facility] [place] [address] documented as of this encounter
--- OUTSIDE RECORDS SUMMARY | 2022-01-31 09:52 | XMS_ITS | Encounter Summary ---
:[address] [facility] Address [address] [place] [address] Care Team Providers Name Role Phone Jennifer Carranza GEOPHYSICAL PROSPECTOR, ALUMINUM SIDING INSTALLER Primary Care Provider [phone] Reason for Visit Reason Onset Date Comments Three refills needed 09/30/2018 Encounter Details Date Type Department Care Team Description 09/30/2018 Telephone [place] Jennifer Carranza, Three refills needed [address] JOSE DANIEL, PAOLO [place], [place] [address] [address] [facility] [address] [phone] [place], [place] [address] Social History Tobacco Use [...] 09/25/2018 relatives? How often do you attend gnosticist or latter-day Never 09/25/2018 services? Do you belong to any clubs or organizations such as No 09/25/2018 gnosticist groups, unions, fraternal or athletic groups, [...] Encounter - Jennifer Carranza APRN, CNP - 09/30/2018 1:36 PM CDT The patient is aware the medications have been sent to [facility]: trazodone, epi, and Ambien. Tayler, John Telephone Encounter - Holley Tatum RN - 09/30/2018 1:35 PM CDT Reviewed with provider and patient. Dosing is the same for Valtrex generic. Pharmacy will dispense generic and it should arrive for the patient in 3-5 days. Telephone Encounter - Holley Tatum RN - 09/30/2018 10:23 AM CDT Maria Fernanda from [facility] (P: [phone]) reference #[id number] called asking for further clarification on the Valtrex Rx as it was for one day. She wanted to know if in fact this was supposed to go to [facility] or not- patient was called and she said this one is fine to go to [facility] but the others need to go to [facility]. Please advise on refills of Tramadol, Zolpidem and Epi-pen. Patient said she doesn't have an issue with getting the generic of Valtrex IF the dosing would be the same and she wouldn't have to take it for longer etc. Please advise if you know if the dosing would be the same and if you are ok with her getting the generic as the Rx says fill branded. FYI-Patient leaving on Friday for a camping trip and needs the epi pen prior to leaving. Telephone Encounter - Holley Tatum RN - 09/30/2018 9:52 AM CDT Nicol from [facility] called questioning if it is ok to fill the Valtrex Rx as a generic. Reviewed Rx and there is a note to the pharmacy on the Rx stating Fill Branded; Nicol informed of this and they will fill it with the brand medication. Telephone Encounter - Laura Keith MA - 09/30/2018 9:21 AM CDT I have pended a medication refill for your review. Patient does not have Tramadol listed on medication list. Telephone Encounter - Jenise Moraes - 09/30/2018 9:11 AM CDT Pt called stating when she was recently in for her physical she said she and John Carranza dicussed getting her Epi Pen, Tramadol, and Ambien refills sent to [facility]. Pt is going out of town Friday and is especially needing the Epi pen refilled before she leaves. Please call Pt at [phone] advise. documented in this encounter Plan of Treatment Not on filedocumented as of this encounter Visit Diagnoses Diagnosis Allergic reaction, subsequent encounter - Primary Insomnia, unspecified type documented in this encounter Care Teams Charge Authorizer Relationship Specialty Start Date End Date Jennifer Carranza, GEOPHYSICAL PROSPECTOR, ALUMINUM SIDING INSTALLER PCP - General 11/11/17 12/13/19 [address] [place] [address] documented as of this encounter
--- OUTSIDE RECORDS SUMMARY | 2022-01-31 09:52 | XMS_ITS | Encounter Summary ---
:1955 Author Organization [facility] Address [address] [place] [address] Care Team Providers Name Role Phone Jennifer Carranza VICE PRESIDENT DIGITAL STRATEGIST, SHOE LAY OUT PLANNER Primary Care Provider [phone] Reason for Visit Reason Comments Pre-op Exam 03/12/18 right thumb repaire Encounter Details Date Type Department Care Team Description 03/06/2018 Consult [place] Jennifer Carranza, Preoperative examination (Pr imary Dx); [address] [place] SKY Right hand pain [place], [place] [address] [address] [facility] [address] [phone] [place], [place] [address] Social History Tobacco Use [...] How often do you attend temple or tenriism Never 09/25/2018 services? Do you belong to [...] Sign Reading Time Taken Comments Blood Pressure 134/72 03/06/2018 10:05 AM BRAKE LINING DRILLER Pulse 60 03/06/2018 10:05 AM BRAKE LINING DRILLER Temperature 37.1 ??C (98.7 ??F) 03/06/2018 10:05 AM BRAKE LINING DRILLER Respiratory Rate 16 03/06/2018 10:05 AM BRAKE LINING DRILLER Oxygen Saturation 96% 03/06/2018 10:36 AM BRAKE LINING DRILLER Inhaled Oxygen Concentration - - Weight 77.9 kg (171 lb 11.8 oz) 03/06/2018 10:05 AM BRAKE LINING DRILLER Height 159 cm (5' 2.6) 03/06/2018 10:05 AM BRAKE LINING DRILLER Body Mass Index 30.81 03/06/2018 10:05 AM BRAKE LINING DRILLER documented in this encounter Patient Instructions Patient InstructionsChlayton Carranza APRN, CNP - 03/06/2018 10:00 AM BRAKE LINING DRILLER NPO for 8 hours prior to your scheduled arrival time Take all other medications Preoperative teaching next Friday E LINING DRILLER documented in this encounter Progress Notes Jennifer Carranza APRN, CNP - 03/06/2018 10:00 AM CST Preoperative History and Physical - Estab Assessment/Plan Priscilla Fitzpatrick is a 62 y.o. female here for a preoperative evaluation. The patient will proceedwith a right hand surgery, under the care of Dr. Carson Sales at [facility] in [place], under anesthesia of choice, on March 12, 2018. The preoperative risk assessment has determined the following: No contraindications to planned surgery The patient will hold all over the counter medications at this time. The patient understands she will need a recycle driver. No problems updated. Priscilla was seen today for pre-op exam. Diagnoses and all orders for this visit: Preoperative examination (Primary) Right hand pain Subjective The patient is a pleasant 62 year old right hand dominant female presenting ambulatory today for a preoperative history and physical examination, for a right hand tendon repair scheduled on March, under the care of Dr. Carson Sales at [facility] in [place], under a local with block. The patient reports she ruptured her tendon in 2004, as she points between her right thumb and index finger,where there is a well healed scar, and had it surgical repaired. The patient started having discomfort and right hand weakness about 1 and 1/2 to 2 years ago, at which time she had it evaluated with the recommendation of proceeding with this surgery, which she has delayed until now. She reports the discomfort and disability is to the point, she is going to proceed with the recommended surgical procedure. Current Outpatient Medications: ??? atorvastatin (LIPITOR) 10 MG tablet, Take 10 mg by mouth every other day , Disp: , Rfl: ??? BACILLUS COAGULANS-INULIN PO, , Disp: , Rfl: ??? CALCIUM CARBONATE PO, Take 2 tablets by mouth 1 (one) time each day , Disp: , Rfl: ??? liothyronine (CYTOMEL) 5 MCG tablet, Take 5 mcg by mouth 1 (one) time each day, Disp: , Rfl: ??? Multiple Vitamins-Minerals (MULTIVITAMIN ADULT PO), Take 1 tablet by mouth 1 (one) time each day, Disp: , Rfl: ??? SYNTHROID 175 MCG tablet, Take 175 mcg by mouth 1 (one) time each day, Disp: , Rfl: ??? traZODone (DESYREL) 50 MG tablet, 1-2 tablet(s) daily PRN sleep., Disp: , Rfl: ??? valsartan (DIOVAN) 40 MG tablet, Take 80 mg by mouth 1 (one) time each day, Disp: , Rfl: ??? EPINEPHrine (EPIPEN 2-AMISHA) 0.3 MG/0.3ML injection syringe, , Disp: , Rfl: ??? ondansetron ODT (ZOFRAN ODT) 4 MG dispersible tablet, Take 4 mg by mouth every 8 (eight) hours if needed for nausea, Disp: , Rfl: ??? zolpidem (AMBIEN) 10 MG tablet, Take 1 tablet (10 mg total) by mouth at night if needed (as needed for sleep) (Patient not taking: Reported on 03/06/2018), Disp: 90 tablet, Rfl: 3 Allergies Allergen Reactions ??? Other Anaphylaxis Wasps ??? Wasp Venom Anaphylaxis ??? Diphth-Acell Pertussis-Tetanus ??? Dtap-Ipv Vaccine ??? Hylan G-F 20 ??? Pollen Extract Past Surgical History: Procedure Laterality Date ??? BLADDER REPAIR 03/23/2003 ??? BLEPHAROPLASTY ??? BREAST SURGERY Bilateral 02/2004 Lift ??? SECTION, CLASSIC 1982 ??? COLONOSCOPY 2011 ??? COLONOSCOPY 12/17/2016 3 mm small polyp removed ??? ESOPHAGOGASTRODUODENOSCOPY 12/17/2016 ??? FINGER SURGERY Right 11/21/2004 Ulnar collateral ligament repair, thumb ??? FOOT SURGERY metacarpal ??? TONSILLECTOMY Past Medical History: Diagnosis Date ??? Dysthymia ??? Hyperlipidemia ??? Hypertension ??? Hypothyroidism ??? Insomnia Family History Problem Relation Age of Onset ??? Osteoporosis Mother ??? Prostate cancer Father ??? Heart attack Father 42 ??? Hypertension Father ??? Hyperlipidemia Brother ??? Heart attack Paternal Grandfather 50 or 60 Social History Socioeconomic History ??? Marital status: Single Spouse name: Not on file ??? Number of children: Not on file ??? Years of education: Not on file ??? Highest education level: Bachelor's degree (e.g., BA, AB, BS) Social Needs ??? Financial resource strain: Not on file ??? Food insecurity - worry: Not on file ??? Food insecurity - inability: Not on file ??? Transportation needs - medical: Not on file ??? Transportation needs - non-medical: Not on file Occupational History ??? 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 Smoking status: Never Smoker ??? Smokeless tobacco: Never Used Substance and Sexual Activity ??? Alcohol use: Yes Comment: occassional ??? Drug use: No ??? Sexual activity: Not on file Other Topics Concern ??? Not on file Social History Narrative ??? Not on file Review of Systems Constitutional: Negative. Negative for appetite change, chills, fatigue and fever. HENT: Negative. Negative for congestion, ear pain, sinus pressure, sinus pain, sneezing and trouble swallowing. Eyes: Negative. Negative for discharge. Respiratory: Negative. Negative for cough, chest tightness, wheezing and stridor. The patient may experience dyspnea with exertion and likely from deconditioning. Cardiovascular: Negative. Negative for chest pain, palpitations and leg swelling. The patient does have a history of hypertension currently controlled. Gastrointestinal: Negative. Negative for abdominal distention, abdominal pain, blood in stool, constipation, diarrhea, rectal pain and vomiting. Endocrine: Negative. Negative for cold intolerance. The patient does have a history of hypothyroidism though stable. Genitourinary: Negative for difficulty urinating, frequency and urgency. Musculoskeletal: Positive for joint swelling (Right knee.). The patient does have pain and decreased label drier strength in her right hand. The patient continues to have right knee pain. Skin: Negative. Allergic/Immunologic: Negative. Neurological: Negative for dizziness, seizures, light-headedness and headaches. The patient does have a history of benign positional vertigo, which has not been problematic recently. Hematological: Negative. Psychiatric/Behavioral: Negative. Objective Cardiovascular Risk Able to walk briskly > two blocks on level ground w/o stop: Yes Climb one flight of stairs or up hill w/o stop?: Yes High Risk Surgery (orthopedic, intraperitoneal, major vascular, intrathoracic)?: No Ischemic Heart Disease: No Cerebral Vascular Disease: No Chornic Kidney Disease >/= Stage 3 (defined by GFR < 60): No Diabetes Mellitus: No Most recent Glucose over 100: No Congestive Heart Failure: No Coronary Artery Disease: No History of Arrythmias: No Valvular Disease: No Pulmonary Risk History of Asthma: No SpO2: 96 % History of COPD: No History of Obstructive Sleep Apnea: No STOP-Bang Questionnaire Do you snore loudly?: No Do you often feel tired or fatigued after your sleep?: No Has anyone ever observed you stop breathing in your sleep?: No Do you have or are you being treated for high blood pressure?: No Recent BMI (Calculated): 30.8 Is BMI greater than 35 kg/m2?: 0=No Age older than 50 years old?: 1=Yes Is your neck circumference greater than 17 inches (Male) or 16 inches (Female)?: No Gender - Male: 0=No STOP-Bang Total Score: 1 Appliances or Implants Difibrillator: No Pacemaker: No Other Risks Chronic Liver Disease: No Muscular Dystrophy: No Mytonic Dystrophy: No Myasthenia Gravis: No Malignant Hyperthermia: No : No Rheumatoid Arthritis: No Tracheostomy: No Seizure Disorder: No Visit Vitals BP 134/72 (BP Location: Left arm, Patient Position: Sitting) Pulse 60 Temp 37.1 ??C (98.7 ??F) (Temporal) Resp 16 Ht 1.59 m (5' 2.6) Wt 77.9 kg (171 lb 11.8 oz) SpO2 96% BMI 30.81 kg/m?? Smoking Status Never Smoker BSA 1.85 m?? Physical Exam Constitutional: She is oriented to person, place, and time. She appears well- developed and well-nourished. HENT: Head: Normocephalic. Right Ear: External ear normal. Left Ear: External ear normal. Nose: Nose normal. Mouth/Throat: Oropharynx is clear and moist. No oropharyngeal exudate. Eyes: Conjunctivae and EOM are normal. Neck: Normal range of motion. Neck supple. No thyromegaly present. Cardiovascular: Normal rate, regular rhythm, normal heart sounds and intact distal pulses. No murmur heard. Pulmonary/Chest: Effort normal and breath sounds normal. She has no wheezes. Abdominal: Soft. Bowel sounds are normal. She exhibits no distension and no mass. There is no tenderness. There is no guarding. Musculoskeletal: Normal range of motion. The patient has a well healed surgical incision between her right thumb and index finger, along the dorsal surface. Neurological: She is alert and oriented to person, place, and time. Skin: Skin is warm and dry. Psychiatric: She has a normal mood and affect. Radiology Tests to be Ordered: None Additional Tests to be Ordered: Laboratory Tests to be Ordered: Lab Results Component Value Date GLUCOSE 87 05/22/2017 CALCIUM 10.1 05/22/2017 NA 138 05/22/2017 K 4.2 05/22/2017 CO2 29 05/22/2017 CL 100 05/22/2017 BUN 15 05/22/2017 CREATININE 1.0 05/22/2017 Lab Results Component Value Date WBC 5.6 05/22/2017 HGB 14.4 05/22/2017 HCT 42.6 05/22/2017 MCV 96.6 05/22/2017 PLT 251 05/22/2017 Contact Anesthesiologist regarding: Referrals/Consultations: Immunizations: Tetanus Influenza the patient will return for a flu shot when she has a lipid panel drawn. Immunization History Administered Date(s) Administered ??? Influenza (IM) Preservative Free 02/24/2015 ? ? Influenza (IM)>3yr Quadrivalent Preservative Free 01/20/2013, 01/18/2015, 02/28/2017 ??? Influenza TIV (IM) 02/08/2005, 03/20/2012, 02/04/2014, 04/30/2016 ??? Influenza, Unspecified 03/20/2012, 01/20/2013, 02/27/2013, 02/05/2014, 01/18/2015 ??? Td 12/14/2001 ??? Tdap 11/25/2005, 10/14/2008 ??? Zoster 05/02/2014 Comments: You should not drive for at least 24 hours after your surgery, or as instructed by your surgeon. Medication Instructions: atorvastatin (LIPITOR) 10 MG tablet [[id number]] Do NOT take medication on morning of surgery. Bring this and all your medications to hospital E LINING DRILLER documented in this encounter Plan of Treatment Not on filedocumented as of this encounter Visit Diagnoses Diagnosis Preoperative examination - Primary Unspecified pre-operative examination Right hand pain Pain in soft tissues of limb documented in this encounter Care Teams Software Project Manager Relationship Specialty Start Date End Date Jennifer Carranza APRN, SHOE LAY OUT PLANNER PCP - General 11/11/17 12/13/[address] [place] [address] [place] [id number] documented as of this encounter
--- OUTSIDE RECORDS SUMMARY | 2022-01-31 09:52 | XMS_ITS | Encounter Summary ---
:1955 Author Organization [facility] Address [address] [place] [address] Care Team Providers Name Role Phone Jennifer Carranza FORESTRY PILOT, MEDICAL ASSISTANT DERMATOLOGY Primary Care Provider [phone] Reason for Visit Reason Onset Date Comments Med Refill 01/29/2018 Encounter Details Date Type Department Care Team Description 01/29/2018 Refill [place] Jennifer Carranza, Insomnia, unspecified [address] JOSE DANIEL, MEDICAL ASSISTANT DERMATOLOGY type [place], [place] [address] [address] [facility] [address] [phone] [place], [place] [address] Social History Tobacco Use Types Packs/Day Years Used Date Never Assessed Social Isolation Answer Date Recorded In a typical week, how many times do you talk on Three times a week 09/25/2018 the phone with family, friends, or neighbors? How often do you get together with friends or Three times a week 09/25/2018 relatives? How often do you attend pentecostal or tenriism Never 09/25/2018 services? Do you [...] or getting things needed for daily living? Sex Assigned at Date Recorded Not on file documented as of this encounter Miscellaneous Notes Telephone Encounter - Jennifer Carranza NP - 01/29/2018 12:58 PM CDT This refill request was submitted yesterday. Telephone Encounter - Moon Bustamante LPN - 01/29/2018 11:51 AM CDT Images from the original note were not included. Ambien (zolpidem), 10 mg, tablet, oral, 0.5 tablet, as needed, as needed for sleep 15 30 days 4 Jennifer Carranza 06/24/2017 Last visit for med 02/03/17 Next appt 03/05/18 documented in this encounter Plan of Treatment Not on filedocumented as of this encounter Visit Diagnoses Diagnosis Insomnia, unspecified type documented in this encounter Care Teams Civil Engineering Design Draftsperson Relationship Specialty Start Date End Date Jennifer Carranza, FORESTRY PILOT, MEDICAL ASSISTANT DERMATOLOGY PCP - General Family Medicine 11/12/[address] [place] [address] [place] [address] documented as of this encounter
--- OUTSIDE RECORDS SUMMARY | 2022-01-31 09:52 | XMS_ITS | Encounter Summary ---
:1955 Author Organization [facility] Address [address] [place] [address] Care Team Providers Name Role Phone Jennifer Carranza APRN, PAOLO Primary Care Provider [phone] Encounter Details Date Type Department Care Team Description 09/25/2018 [facility] History of urinary urgency [address] [place], [place] [address] Social History Tobacco Use [...] How often do you attend buddhism or yarsani Never 09/25/2018 services? Do you belong to [...] Date/Time Associated Comments Diagnosis URINALYSIS WITH Routine 09/25/2018 11:57 History of urinary Re sults for this REFLEX MICROSCOPIC AM CDT urgency procedure are in the results section. documented in this encounter Results (ABNORMAL) Urinalysis with reflex microscopic (clean catch) (09/25/2018 11:57 AM CDT) [facility] Method Time Signature Type CLEAN CATCH 09/25/2018 [facility] 1:35 PM CDT [place] Color, Urine STRAW YELLOW 09/25/2018 [facility] 1:35 PM CDT [place] Clarity, CLEAR CLEAR 09/25/2018 [facility] Urine 1:35 PM CDT [place] Glucose, NEGATIVE NEGATIVE 09/25/2018 [facility] Urine mg/dL 1:35 PM CDT [place] Bilirubin, NEGATIVE NEGATIVE 09/25/2018 [facility] Urine 1:35 PM CDT [place] Ketones, TRACE (A) NEGATIVE 09/25/2018 [facility] Urine mg/dL 1:35 PM CDT [place] Specific 1.010 1.000 09/25/2018 [facility] [place], ->=1.030 1:35 PM CDT [place] Urine Blood, Urine NEGATIVE NEGATIVE 09/25/2018 [facility] 1:35 PM CDT [place] pH, Urine 7.0 5.0 - 7.0 09/25/2018 [facility] 1:35 PM CDT [place] Protein, NEGATIVE NEGATIVE-TRA 09/25/2018 [facility] [place] Urine CE mg/dL 1:35 PM CDT [place] Urobilinogen, 0.2 0.2 - 1.0 09/25/2018 [facility] [place] Urine E.U./dL 1:35 PM CDT [place] Nitrite, NEGATIVE NEGATIVE 09/25/2018 [facility] Urine 1:35 PM CDT [place] Leukocytes, NEGATIVE NEGATIVE 09/25/2018 [facility] Urine 1:35 PM CDT [place] Specimen Anatomical Collection Method Collection Time Receive d Time (Source) Location / / Volume Laterality Urine (Urine, 09/25/2018 11:57 09/25/2018 Clean Catch) AM CDT 11:58 AM CDT Jennifer Carranza APRN, BEHAVIOUR SUPPORT TEACHER LAB URINE ORDERABLES Performing Organization Address City/State/ZIP Code Phon e Number [facility] [place] [address] [place] [address] documented in this encounter Visit Diagnoses Diagnosis History of urinary urgency documented in this encounter Care Teams System Support Analyst Relationship Specialty Start Date End Date Jennifer Carranza APRN, BEHAVIOUR SUPPORT TEACHER PCP - General 11/11/17 12/13/19 [address] [facility] [place] [address] documented as of this encounter
--- OUTSIDE RECORDS SUMMARY | 2022-01-31 09:52 | XMS_ITS | Encounter Summary ---
:1955 Author Organization [facility] Address [address] [place] [address] Care Team Providers Name Role Phone Jennifer Carranza APRN, CNP Primary Care Provider [phone] Encounter Details Date Type Department Care Team Description 09/30/2018 Orders Only Michelet Wagoner Jennifer Carranza Hyperlipidemia, unspecified hyperlipidemia type (Primary Dx); [address] MJOSE DANIEL CNP Insomnia, unspecified type; [place], [place] [address] Hypothyroidism, unspecified type; [address] [place] [address] Essential (primary) hypertension [phone] Social History Tobacco Use Types Packs/Day Years [...] How often do you attend episcopal or orthodox Never 09/25/2018 services? Do you belong to [...] as of this encounter Visit Diagnoses Diagnosis Hyperlipidemia, unspecified hyperlipidem ia type - Primary Insomnia, unspecified type Hypothyroidism, unspecified type Essential (primary) hypertension Unspecified essential hypertension documented in this encounter Care Teams South Asian History Professor Relationship Specialty Start Date End Date Jennifer Carranza APRN, VITICULTURIST PCP - General 11/11/17 12/13/[address] [place] [address] documented as of this encounter
--- OUTSIDE RECORDS SUMMARY | 2022-01-31 09:52 | XMS_ITS | Encounter Summary ---
:1955 Author Organization [facility] Address [address] [place] [address] Care Team Providers Name Role Phone Jennifer Carranza BAG MACHINE ADJUSTER, ORACLE BUSINESS ANALYST Primary Care Provider [phone] Reason for Visit Reason Comments Med Refill Encounter Details Date Type Department Care Team Description 07/22/2018 Refill [place] Jennifer Carranza, Insomnia, unspecified [address] JOSE DANIEL, PAOLO type (Primary Dx) [place], [place] [address] [address] [facility] [address] [phone] [place], [place] [address] Social History Tobacco Use [...] How often do you attend yarsanism or temple Never 09/25/2018 services? Do you [...] this encounter Miscellaneous Notes Telephone Encounter - Laura Keith MA - 07/22/2018 3:32 PM CDT Patient would like this Rx to be sent to [facility] Telephone Encounter - Jennifer Carranza APRN, CNP - 07/22/2018 3:29 PM CDT Please clarify with the patient where she would like this sent to, I know she has used mail order prescription pharmacy as well. Thanks John Telephone Encounter - Grace Shea LPN - 07/22/2018 3:21 PM CDT Trazodone 50 mg Last Rx 06/24/2017 # 180, 3 refills Last date med(s) reviewed: 03/06/2018 Pre-op examination No Appt. scheduled documented in this encounter Plan of Treatment Not on filedocumented as of this encounter Visit Diagnoses Diagnosis Insomnia, unspecified type - Primary documented in this encounter Care Teams Chute Man Relationship Specialty Start Date End Date Jennifer Carranza APRN, PAOLO PCP - General 11/11/17 12/13/19 [address] [place] [address] documented as of this encounter
--- OUTSIDE RECORDS SUMMARY | 2022-01-31 09:52 | XMS_ITS | Encounter Summary ---
:[address] [facility] Address [address] [place] [address] Care Team Providers Name Role Phone Jennifer Carranza APRN, PAOLO Primary Care Provider [phone] Reason for Visit Reason Comments Med Refill Encounter Details Date Type Department Care Team Description 03/09/2018 Refill [place] Jennifer Carranza, Essential (primary) [address] [place] SK[place] hypertension (Primary [place], [place] [address] Dx) [phone] [place], [place] [address] Social History Tobacco Use [...] 09/25/2018 relatives? How often do you attend religious or restorationism Never 09/25/2018 services? Do you belong to any clubs or organizations such as No 09/25/2018 religious groups, unions, fraternal or athletic groups, [...] Notes Telephone Encounter - Jenise Moraes - 03/13/2018 2:58 PM CST Pt has appt scheduled with John Carranza for 03/20/18. MOTIVE BUYER Telephone Encounter - Holley Tatum RN - 03/11/2018 3:22 PM CST Please call patient to set up a follow up appt. Rx refilled. MOTIVE BUYER Telephone Encounter - Jennifer Carranza APRN, PAOLO - 03/11/2018 3:15 PM AUTOMOTIVE BUYER Prescription renewed as requested. Tayler, John MOTIVE BUYER Telephone Encounter - Virginia Rodriguez MA - 03/11/2018 10:39 AM CST Last refill: 12/02/2017 Patient's last appointment for medication requested was 04/30/2016 No follow up scheduled at this time. Patient is due to be seen. Please work with your PSR???s to assist patient in scheduling appt. Please advise on extension until appointment. MOTIVE BUYER documented in this encounter Plan of Treatment Not on filedocumented as of this encounter Visit Diagnoses Diagnosis Essential (primary) hypertension - Prima ry Unspecified essential hypertension documented in this encounter Care Teams Patch Machine Operator Relationship Specialty Start Date End Date Jennifer Carranza APRN, ADVERTISING SOLICITOR PCP - General 11/11/17 12/13/19 [address] [place] [address] documented as of this encounter
--- OUTSIDE RECORDS SUMMARY | 2022-01-31 09:52 | XMS_ITS | Encounter Summary ---
:1955 Author Organization [facility] Address [address] [place] [address] Care Team Providers Name Role Phone Jennifer Carranza TRIMMER AND BORER MACHINE OPERATOR, HAT BODY INSPECTOR Primary Care Provider [phone] Reason for Visit Reason Comments Med Refill Encounter Details Date Type Department Care Team Description 10/30/2018 Refill [place] Jennifer Carranza, Insomnia, unspecified [address] TRIMMER AND BORER MACHINE OPERATOR, HAT BODY INSPECTOR type [place], [place] [address] [address] [facility] [address] [phone] [place], [place] [address] Social History Tobacco Use [...] 09/25/2018 relatives? How often do you attend evangelical or sabianism Never 09/25/2018 services? Do you belong to any clubs or organizations such as No 09/25/2018 evangelical groups, unions, fraternal or athletic groups, [...] Encounter - Jennifer Carranza APRN, CNP - 11/02/2018 4:22 PM CDT Called the patient and will review with her. Left a message. Telephone Encounter - Holley Tatum RN - 11/02/2018 3:48 PM CDT Please advise. Telephone Encounter - Celestina Guzman MA - 11/02/2018 3:35 PM CDT Last refill: 09/30/2018. #90. 3 refills. Take 1 tablet by mouth at night if needed. This request's signature states patient is to Take 1/2 tablet by mouth at night as needed. Last Annual Exam: No future visits scheduled at this time. Patient should have enough refills for this medication. Please review and advise on medication signature along with dosage. documented in this encounter Plan of Treatment Not on filedocumented as of this encounter Visit Diagnoses Diagnosis Insomnia, unspecified type documented in this encounter Care Teams High Density Press Laborer Relationship Specialty Start Date End Date Jennifer Carranza APRN, CNP PCP - General 11/11/17 12/13/19 [address] [facility] [place] [address] documented as of this encounter
--- OUTSIDE RECORDS SUMMARY | 2022-01-31 09:52 | XMS_ITS | Encounter Summary ---
:1955 Author Organization [facility] Address [address] [place] [address] Care Team Providers Name Role Phone Jennifer Carranza APRN, PAOLO Primary Care Provider [phone] Encounter Details Date Type Department Care Team Description 10/02/2018 Lab [place] Essential (primary) hyperten hong; [address] Osteopenia, unspecified loca tion; [place], [place] [address] Screening, anemia, deficienc y, iron; [phone] Hypothyroidism, unspecified type; Hyperlipidemia, unspecified hyperlipidemia type Social History Tobacco Use Types Packs/Day Years [...] 09/25/2018 relatives? How often do you attend yazidism or rastafarian Never 09/25/2018 services? Do you belong to any clubs or organizations such as No 09/25/2018 yazidism groups, unions, fraternal or athletic groups, [...] Priority Date/Time Associated Diagnosis Comme nts GLOMERULAR Routine 10/02/2018 8:22 AM Essential (primary) Re sults for this FILTRATION RATE CDT hypertension procedure ar e in the results section. VITAMIN D, TOTAL Routine 10/02/2018 8:22 AM Osteopenia, Resul ts for this CDT unspecified location procedu re are in the results section. CBC BRANCH OFFICE Routine 10/02/2018 8:22 AM Screening, anemia , Results for this W/DIFF CDT deficiency, iron procedure a re in the results section. T3 Routine 10/02/2018 8:22 AM Hypothyroidism, Result s for this CDT unspecified type procedure a re in the results section. TSH Routine 10/02/2018 8:22 AM Hypothyroidism, Result s for this CDT unspecified type procedure a re in the results section. T4, FREE Routine 10/02/2018 8:22 AM Hypothyroidism, Result s for this CDT unspecified type procedure a re in the results section. LIPID PANEL Routine 10/02/2018 8:22 AM Hyperlipidemia, Result s for this CDT unspecified procedure are i n hyperlipidemia type the resu lts section. BASIC METABOLIC Routine 10/02/2018 8:22 AM Essential (primary) Results for this PANEL CDT hypertension procedure are i n the results section. documented in this encounter Results Glomerular filtration rate (GFR) (10/02/2018 8:22 AM CDT) P athologist Signature GFR >60 10/02/2018 [facility] 8:40 AM CDT [facility] >60 10/02/2018 [facility] [place] GFR 8:40 AM CDT [facility] Comment: GFR calculated from serum creatinine v alue Chronic Kidney Disease less than 60 mL/m in/1.73 m2 Kidney Failure less than 15 mL/min/1.73 m2 Note: effective 08/20/06 IDMS-Traceable MDRD Study Equation used. Specimen Anatomical Collection Method Collection Time Receive d Time (Source) Location / / Volume Laterality 10/02/2018 8:22 AM 9 8:22 CDT AM CDT Jennifer Carranza APRN, HOLTER SCANNING TECHNICIAN LAB BLOOD ORDERABLES Performing Organization Address City/State/ZIP Code Phon e Number [facility] [address] [place] [address] (ABNORMAL) Lipid panel (10/02/2018 8:22 AM CDT) P athologist Signature Cholesterol 227 (A) 0 - 199 10/02/2018 [facility] mg/dL 1:19 PM T [facility] Comment: Recommended by National Cholesterol Education Program (ATP III) -------- Cholesterol Ranges -------- <200 ? Desirable 200-239 ? Borderline high >=240 ? High Triglycerides 64 0 - 149 mg/dL 10/02/2018 1:19 PM CDT [facility] Comment: -------- TRIG Ranges -------- <150 ?Normal 150-199 ? Borderline high 200-499 ? High >=500 ? Very high HDL 89 40 - 60 mg/dL 10/02/2018 1:19 PM CDT [facility] Comment: -------- HDL Ranges -------- <40 ?Low 40-59 ?Normal >=60 ? Optimal LDL Calculated 125 (A) 0 - 99 mg/dL 10/02/2018 1:19 PM CDT [facility] Comment: -------- LDL Ranges -------- <100 ? Optimal 100-129 ?Near optimal/above op timal 130-159 ?Borderline high 160-189 ?High >=190 ?Very high Specimen Anatomical Collection Method Collection Time Receive d Time (Source) Location / / Volume Laterality Blood (Blood, 10/02/2018 8:22 AM 10/03/19 19 Venous) CDT 12:19 PM CDT Jennifer Carranza APRN, CNP LAB BLOOD ORDERABLES Performing Organization Address [facility] Phon e Number [facility] [address] [place] [address] TSH (10/02/2018 8:22 AM CDT) athologist Signature TSH, Sensitive 0.46 0.46 - 10/02/2018 [facility] 4.68 mIU/L 1:50 PM CDT [facility] Comment: The results [...] Location / / Volume Laterality Blood (Blood, 10/02/2018 8:22 AM 10/03/19 Venous) CDT 12:29 PM CDT Jennifer Carranza APRN, CNP LAB BLOOD ORDERABLES Performing Organization Address [facility] Phon e Number [facility] [address] [place] [address] T3 (10/02/2018 8:22 AM CDT) athologist Signature T3, Total 1.11 0.97 - 1.69 10/02/2018 [facility] ng/mL 1:50 PM CDT [facility] Comment: The results from this or any other diagn ostic test should be used and interpreted only in the context of the overall clinical picture. Heterophilic antibodies in serum or plas ma [...] Location / / Volume Laterality Blood (Blood, 10/02/2018 8:22 AM 10/03/19 19 Venous) CDT 12:29 PM CDT Jennifer Carranza APRN, CNP LAB BLOOD ORDERABLES Performing Organization Address [facility] e Number [facility] [address] [place] [address] T4, free (10/02/2018 8:22 AM CDT) P athologist Signature Free T4 1.51 0.78 - 2.19 10/02/2018 [facility] ng/dL 1:32 PM CDT [facility] Comment: The results from this or any other diagn ostic test should be used and interpreted only in the context of the overall clinical picture. Heterophilic antibodies in serum or plas ma [...] Location / / Volume Laterality Blood (Blood, 10/02/2018 8:22 AM 10/03/19 19 Venous) CDT 12:29 PM CDT Jennifer Carranza APRN, CNP LAB BLOOD ORDERABLES Performing Organization Address [facility] Phon e Number [facility] [address] [place] [address] (ABNORMAL) CBC Branch Off w/Diff (10/02/2018 8:22 AM CDT) Patholo gist Method Time Signature WBC 4.4 3.5 - 10.5 10/02/2018 [facility] K/uL 8:30 AM CDT [place] RBC 4.56 3.90 - 10/02/2018 [facility] 5.00 M/uL 8:30 AM CDT [place] Hemoglobin 14.7 12.0 - 10/02/2018 [facility] 15.5 g/dL 8:30 AM CDT [place] Hematocrit 43.0 35.0 - 10/02/2018 [facility] 44.0 % 8:30 AM CDT [place] Platelets 251 150 - 450 10/02/2018 [facility] K/uL 8:30 AM CDT [place] MCV 94.3 81.6 - 10/02/2018 [facility] 98.3 fL 8:30 AM CDT [place] MCH 32.2 (H) 26.0 - 10/02/2018 [facility] 32.0 pg 8:30 AM CDT [place] MCHC 34.2 32.0 - 10/02/2018 [facility] 36.0 g/dL 8:30 AM CDT [place] RDW 12.6 11.9 - 10/02/2018 [facility] 15.5 % 8:30 AM CDT [place] Lymphocytes % 29.3 18.0 - 10/02/2018 [facility] 45.0 % 8:30 AM CDT [place] Mid-size Cells 4.7 3.3 - 10.1 10/02/2018 [facility] % 8:30 AM CDT [place] Granulocytes/Sadie 66.0 45.8 - 10/02/2018 [facility] trophils 73.7 % 8:30 AM CDT [place] Lymphocytes 1.3 0.9 - 2.9 10/02/2018 [facility] Absolute K/uL 8:30 AM CDT [place] MIDS Absolute 0.2 0.2 - 0.8 10/02/2018 [facility] K/uL 8:30 AM CDT [place] Granulocytes/Sadie 2.9 2.1 - 8.7 10/02/2018 [facility] trophils K/uL 8:30 AM CDT [place] Absolute Specimen Anatomical Collection Method Collection Time Receive d Time (Source) Location / / Volume Laterality Blood (Blood, 10/02/2018 8:22 AM 10/03/19 19 8:22 Venous) CDT AM CDT Jennifer Carranza APRN, HOLTER SCANNING TECHNICIAN LAB BLOOD ORDERABLES Performing Organization Address City/State/ZIP Code Phon e Number [facility] [place] [address] [place] [address] Vitamin D, Total ([facility] preferred) (10/02/2018 8:22 AM CDT) P athologist Signature Vitamin D, 49.4 ng/mL 10/02/2018 [facility] Total 1:09 PM CDT [facility] Comment: Deficient ?<20 ? ng/mL Insufficient ? 20-<30 ??ng/mL Sufficient ? 30-100 ??ng/mL Vitamin D2/D3 fractionation is recommend ed at the discretion of the clinician if Total Vitamin D is w ithin deficient or insufficient range. Specimen Anatomical Collection Method Collection Time Receive d Time (Source) Location / / Volume Laterality Blood (Blood, 10/02/2018 8:22 AM 10/03/19 19 Venous) CDT 12:19 PM CDT Jennifer Carranza APRN, HOLTER SCANNING TECHNICIAN LAB BLOOD ORDERABLES Performing Organization Address City/State/ZIP Code Phon e Number [facility] [address] [place] [phone] Basic metabolic panel (10/02/2018 8:22 AM CDT) P athologist Signature Sodium 141 135 - 145 10/02/2018 [facility] [place] mmol/L 8:40 AM CDT [place] Potassium 4.3 3.5 - 5.1 10/02/2018 [facility] [place] mmol/L 8:40 AM T [place] Comment: . Chloride 101 98 - 107 mmol/L 10/02/2018 8:40 AM CDT [facility] [place] Comment: . CO2 29 22 - 29 mmol/L 10/02/2018 8:40 AM CDT [facility] [place] Comment: . Creatinine 0.6 0.4 - 1.2 mg/dL 10/02/2018 8:40 AM CDT [facility] [place] Comment: . BUN 20 5 - 25 mg/dL 10/02/2018 8:40 AM CDT [facility] [place] Comment: . Glucose 91 70 - 100 mg/dL 10/02/2018 8:40 AM CDT [facility] [place] Calcium, Total,S 9.8 8.4 - 10.2 mg/dL 10/02/2018 8:40 AM CDT [facility] [place] Comment: . Fasting? Yes 10/02/2018 8:28 AM CDT [facility] [place] Specimen Anatomical Collection Method Collection Time Receive d Time (Source) Location / / Volume Laterality Blood (Blood, 10/02/2018 8:22 AM 10/03/19 19 8:22 Venous) CDT AM CDT Jennifer Carranza APRN, HOLTER SCANNING TECHNICIAN LAB BLOOD ORDERABLES Performing Organization Address City/State/ZIP Code Phon e Number [facility] [place] [address] [place] [address] documented in this encounter Visit Diagnoses Diagnosis Essential (primary) hypertension Unspecified essential hypertension Osteopenia, unspecified location Screening, anemia, deficiency, iron Screening for iron deficiency anemia Hypothyroidism, unspecified type Hyperlipidemia, unspecified hyperlipidem ia type documented in this encounter Care Teams Environmental Research Project Manager Relationship Specialty Start Date End Date eJnnifer Carranza APRN, HOLTER SCANNING TECHNICIAN PCP - General 11/11/17 12/13/19 100 [facility] [place] [id number] documented as of this encounter
--- OUTSIDE RECORDS SUMMARY | 2022-01-31 09:52 | XMS_ITS | Encounter Summary ---
:1955 Author Organization [facility] Address [address] [place] [address] Care Team Providers Name Role Phone Jennifer Carranza PACKAGE PICK UP, COLLEGE OR UNIVERSITY REGISTRAR Primary Care Provider [phone] Reason for Visit Reason Onset Date Comments Registry 09/18/2018 Hypertension Encounter Details Date Type Department Care Team Description 09/18/2018 Telephone [place] Jennifer Carranza, Registry (Hypertension [address] PACKAGE PICK UP, COLLEGE OR UNIVERSITY REGISTRAR ) [place], [place] [address] [address] [facility] [address] [phone] [place], [place] [address] Social History Tobacco Use [...] 09/25/2018 relatives? How often do you attend judaism or hoahaoism Never 09/25/2018 services? Do you belong to any clubs or organizations such as No 09/25/2018 judaism groups, unions, fraternal or athletic groups, [...] this encounter Miscellaneous Notes Telephone Encounter - Cindy Sanzcinda - 09/21/2018 9:43 AM CDT Patient returned call and scheduled appt. Telephone Encounter - Cindy Braden - 09/21/2018 9:37 AM CDT Left voicemail for patient to schedule. Telephone Encounter - Holley Tatum RN - 09/21/2018 8:21 AM CDT Please contact the patient for a medication review with John. Telephone Encounter - Jennifer Carranza APRN, PAOLO - 09/19/2018 8:35 AM CDT In the same treating the patient's blood pressure and she is due for medication review, please encourage. Thanks John Telephone Encounter - Laura Keith MA - 09/18/2018 2:34 PM CDT Are you treating patient for her hypertension? If so she is due for BP check and visit. Please advise documented in this encounter Plan of Treatment Not on filedocumented as of this encounter Visit Diagnoses Not on filedocumented in this encounter Care Teams Plate Conditioner Relationship Specialty Start Date End Date Jennifer Carranza APRN, COLLEGE OR UNIVERSITY REGISTRAR PCP - General 11/11/17 12/13/19 100 [facility] [place] [id number] documented as of this encounter
--- OUTSIDE RECORDS SUMMARY | 2022-01-31 09:52 | XMS_ITS | Encounter Summary ---
:1955 Author Organization [facility] Address [address] [place] [address] Care Team Providers Name Role Phone Jennifer Carranza APRN, PAOLO Primary Care Provider [phone] Encounter Details Date Type Department Care Team Description 03/10/2018 Orders Only [place] Jennifer Carranza Hyperlipidemia, [address] M, STOCKROOM HELPER, TUNNELING MACHINE OPERATOR unspecified [place] [address] hyperlipidemia type [address] [place] [address] (Primary Dx) [phone] Social History Tobacco Use Types Packs/Day Years [...] 09/25/2018 relatives? How often do you attend shinto or moravian Never 09/25/2018 services? Do you belong to any clubs or organizations such as No 09/25/2018 shinto groups, unions, fraternal or athletic groups, [...] documented as of this encounter Progress Notes Jennifer Carranza APRN, PAOLO - 03/10/2018 11:15 AM CST The patient is here for a lipid panel. DING SERVICES TECHNICIAN documented in this encounter Plan of Treatment Not on filedocumented as of this encounter Results (ABNORMAL) Lipid panel (03/10/2018 11:23 AM BUILDING SERVICES TECHNICIAN) athologist Signature Cholesterol 202 (A) 0 - 199 03/11/2018 [facility] mg/dL 1:27 PM [facility] Comment: Recommended by National Cholesterol Education Program (ATP III) -------- Cholesterol Ranges -------- <200 ? Desirable 200-239 ? Borderline high >=240 ? High Triglycerides 77 0 - 149 mg/dL 03/11/2018 1:27 PM [facility] Comment: -------- TRIG Ranges -------- <150 ?Normal 150-199 ? Borderline high 200-499 ? High >=500 ? Very high HDL 92 40 - 60 mg/dL 03/11/2018 1:27 PM [facility] Comment: -------- HDL Ranges -------- <40 ?Low 40-59 ?Normal >=60 ? Optimal LDL Calculated 95 0 - 99 mg/dL 03/11/2018 1:27 PM [facility] Comment: -------- LDL Ranges -------- <100 ? Optimal 100-129 ?Near optimal/above op timal 130-159 ?Borderline high 160-189 ?High >=190 ?Very high Fasting? Yes 03/10/2018 11:26 AM BUILDING SERVICES TECHNICIAN [facility] Specimen Anatomical Collection Method Collection Time Receive d Time (Source) Location / / Volume Laterality Blood (Blood, 03/10/2018 11:23 03/11/2018 Venous) AM BUILDING SERVICES TECHNICIAN 12:53 PM BUILDING SERVICES TECHNICIAN Jennifer Carranza APRN, TUNNELING MACHINE OPERATOR LAB BLOOD ORDERABLES Performing Organization Address City/State/ZIP Code Phon e Number [facility] [address] [place] [address] documented in this encounter Visit Diagnoses Diagnosis Hyperlipidemia, unspecified hyperlipidem ia type - Primary documented in this encounter Care Teams Financial Processing Clerk Relationship Specialty Start Date End Date Jennifer Carranza APRN, TUNNELING MACHINE OPERATOR PCP - General 11/11/17 12/13/19 100 [place] [address] documented as of this encounter
--- OUTSIDE RECORDS SUMMARY | 2022-01-31 09:52 | XMS_ITS | Encounter Summary ---
:1955 Author Organization [facility] Address [address] [place] [address] Care Team Providers Name Role Phone Jennifer Carranza APRN, [facility] Primary Care Provider [phone] Encounter Details Date Type Department Care Team Description 03/03/2018 Abstract [facility] Jennifer Carranza, JOSE DANIEL, [address] [place] [address] [place] [address] AVE [phone] [place] [address] Social History Tobacco Use Types Packs/Day Years Used Date Never Smoker Alcohol Use Standard Drinks/Week Comments Yes 0 [...] 09/25/2018 relatives? How often do you attend advent or orthodoxy Never 09/25/2018 services? Do you belong to any clubs or organizations such as No 09/25/2018 advent groups, unions, fraternal or athletic groups, [...] on filedocumented in this encounter Care Teams Architectural Intern Relationship Specialty Start Date End Date Jennifer Carranza APRN, SHOE DESIGNER PCP - General 11/11/17 12/13/19 100 [facility] [place] [address] documented as of this encounter
--- OUTSIDE RECORDS SUMMARY | 2022-01-31 09:52 | XMS_ITS | Encounter Summary ---
:1955 Author Organization [facility] Address [address] [place] [address] Care Team Providers Name Role Phone Jennifer Carranza CLERICAL SUPPORT SPECIALIST, MANAGER PEST Primary Care Provider [phone] Reason for Visit Reason Comments Med Refill Encounter Details Date Type Department Care Team Description 09/30/2018 Refill [place] Jennifer Carranza, Insomnia, unspecified [address] CLERICAL SUPPORT SPECIALIST, MANAGER PEST type [place], [place] [address] [address] [facility] [address] [phone] [place], [place] [address] Social History Tobacco Use [...] 09/25/2018 relatives? How often do you attend jehovah's witness or yazidi Never 09/25/2018 services? Do you belong to any clubs or organizations such as No 09/25/2018 jehovah's witness groups, unions, fraternal or athletic [...] Encounter - Jennifer Carranza APRN, CNP - 10/02/2018 8:32 AM CDT The patient was requesting Trazodone and Ambien which were renewed already. Telephone Encounter - [place] Rodriguez MA - 10/02/2018 8:26 AM CDT traMADol (ULTRAM) 50 MG tablet- Last refill: 03/27/2017 Medication not discussed in the last year No follow up scheduled at this time. Please advise if patient needs an appointment. No CSA on file Telephone Encounter - Cindy Feliciano - 09/30/2018 3:18 PM CDT Faxed. Telephone Encounter - Laura Keith MA - 09/30/2018 2:52 PM CDT Please fax Rx to [facility]. Telephone Encounter - Cindy Feliciano - 09/30/2018 12:25 PM CDT Veronica from [facility] would like to add the EpiPen as well. She did not have it on file to send over. documented in this encounter Plan of Treatment Not on filedocumented as of this encounter Visit Diagnoses Diagnosis Insomnia, unspecified type documented in this encounter Care Teams Business Intelligence Reporting Analyst Relationship Specialty Start Date End Date Jennifer Carranza APRN, PAOLO PCP - General Family Medicine 11/12/[address] [place] [address] [place] [address] documented as of this encounter
--- OUTSIDE RECORDS SUMMARY | 2022-01-31 09:52 | XMS_ITS | Encounter Summary ---
:1955 Author Organization [facility] Address [address] [place] [address] Care Team Providers Name Role Phone Jennifer Carranza APRN, CNP Primary Care Provider [phone] Reason for Visit Reason Comments Med Refill Encounter Details Date Type Department Care Team Description 09/25/2018 Office Visit [place] Jennifer Carranza Annual physical exam (Primar y Dx); [address], [place] Essential (primary) hypertension; [place], [place] [address] Hyperlipidemia, unspecified hyperlipidem ia type; [address] [place], [place] Hypothyroidism, unspecified type; [phone] [id number] Cold sore; [phone] Insomnia, unspe cified type; (Work) Osteopenia, uns pecified location; History of anap hylaxis; History of musc le spasm; History of urin radha urgency; Screening, anem ia, deficiency, iron Social History Tobacco Use Types Packs/Day Years [...] How often do you attend buddhist or holiness Never 09/25/2018 services? Do you belong to [...] Sign Reading Time Taken Comments Blood Pressure 110/66 09/25/2018 10:42 AM CDT Pulse 78 09/25/2018 10:42 AM CDT Temperature 36.2 ??C (97.1 ??F) 09/25/2018 10:42 AM CDT Respiratory Rate 16 09/25/2018 10:42 AM CDT Oxygen Saturation 99% 09/25/2018 10:42 AM CDT Inhaled Oxygen Concentration - - Weight 75.4 kg (166 lb 3.6 oz) 09/25/2018 10:42 AM CDT Height 157.2 cm (5' 1.89) 09/25/2018 10:42 AM CDT Body Mass Index 30.51 09/25/2018 10:42 AM CDT documented in this encounter Patient Instructions Patient InstructionsChlayton Carranza APRN, CNP - 09/25/2018 10:40 AM CDT Mammogram and DEXA scan in November, December Return for blood work and then will renew medications documented in this encounter Progress Notes Jennifer Carranza APRN, CNP - 09/25/2018 10:40 AM CDT Well Adult - Estab Subjective Patient ID: Priscilla Fitzpatrick is a 63 y.o. female presenting for the following concerns. Chief Complaint Patient presents with ??? Med Refill HPI: The patient is a pleasant 63-year-old female presenting ambulatory to the clinical setting today larisa annual physical and medication renewal. The patient's last Pap smear was in 04/30/16, no HPV co-testing, due in 2019. She did have an abnormal Pap smear in her 30s, with a normal biopsy. Her LMP was at the age of 52, no vaginal bleeding since. Her last mammogram was on December 05, 2017, and she will due for one in November. She did have a colonoscopy on 12/17/2016, a small polyp was removed, with the recommendation of repeating one in 2019. The patient has a history of osteopenia diagnosed on a DEXA scan in 05/2014, and she is currently on a calcium with vitamin D supplement; and her last DEXA scan was on 05/02/16, final impression: osteopenia. The patient had a Tdap on 10/14/2008, is allergic to TD, and a Zostavax on 05/02/2014. 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 The patient reports she had radiation to her thyroid gland, because of a goiter in her 20s, and has been on thyroid replacement since. The patient is currently on Synthroid 150 mcg and Liothyronine 5 mcg tablet daily for her hypothyroidism. She is on Vjueyv26 mg, 2 tablets, daily for her hypertension. No chest pain, discomfort, lightheadedness, dizziness,palpitations, peripheral edema, syncope, presyncope, and/or cardiac murmur. The patient is on Lipitor 10 mg every other day for hyperlipidemia. She has had a history of SVT which was likely stress related. She was on atenolol for a period of time. No recent episodes of SVT. The patient had a DEXA scanin 2014 and was diagnosed with osteopenia, her last DEXA scan was on 12/17/16 final impression: osteopenia. She is currently on a calcium supplement with Vitamin D. The patient reports she had a colonoscopy in 2016, with recommendation of repeating it in 3 years, 2019. She has lumbar L5 spondylolisthesis and sees a chiropractor on a regular basis, and traction seems to provide her with the best relief. Previous history of depression and anxiety, which has resolved. The patient is allergic to wasps and carries an EpiPen with her, which does need to be renewed. The patient has a history of insomnia and uses Ambien when traveling for her job. The patient reports she has irritable bowel syndrome, a spastic colon since she was in her 20s, which has improved, and she has learned to cope with this; she has been evaluated by a welding machine setter. The patient feels she has outgrown her lactose intolerance. The patient has a history of cerumen impactions. The following portions of the patient's chart were reviewed in this encounter and updated as appropriate: Tobacco Allergies Meds Problems Med Hx Surg Hx Fam Hx Current Outpatient Medications: ??? atorvastatin (LIPITOR) 10 MG tablet, Take 10 mg by mouth every other day , Disp: , Rfl: ??? BACILLUS COAGULANS-INULIN PO, Take 1 tablet by mouth 1 (one) time each day , Disp: , Rfl: ??? CALCIUM CARBONATE PO, Take 2 tablets by mouth 1 (one) time each day , Disp: , Rfl: ??? CALCIUM PO, Take 500 mg by mouth 2 (two) times a day, Disp: , Rfl: ??? DIOVAN 40 MG tablet, TAKE 2 TABLETS DAILY, Disp: 180 tablet, Rfl: 3 ??? liothyronine (CYTOMEL) 5 MCG tablet, Take 1 tablet (5 mcg total) by mouth 1 (one) time each day,Disp: 90 tablet, Rfl: 0 ??? Multiple Vitamins-Minerals (MULTIVITAMIN ADULT PO), Take [...] (one) time each day, Disp: 90tablet, Rfl: 0 ??? cyclobenzaprine (FLEXERIL) 10 MG tablet, Take 1 tablet (10 mg total) by mouth 3 (three) times a day if needed for muscle spasms, Disp: 30 tablet, Rfl: 0 ??? EPINEPHrine (EPIPEN 2-AMISHA) 0.3 MG/0.3ML injection syringe, Inject 0.3 mL (0.3 mg total) into thethigh if needed for anaphylaxis. Call 911 after use., Disp: 2 Syringe, Rfl: 3 ??? Testosterone powder, unsure of [facility],uses cream, Disp: , Rfl: ??? traZODone (DESYREL) 50 MG tablet, TAKE ONE TO TWO TABLETS BY MOUTH EVERY DAY NEEDED FOR SLEEP, Disp: 180 tablet, Rfl: 3 ??? zolpidem (AMBIEN) 10 MG tablet, Take 1 tablet (10 mg total) by mouth at night if needed (as needed for sleep), Disp: 90 tablet, Rfl: 3 Allergies Allergen Reactions ??? Other Anaphylaxis Wasps ??? Wasp Venom Anaphylaxis ??? Dtap-Ipv Vaccine ??? Hylan G-F 20 ??? Pollen Extract ??? Ctqsbxm-Duvqme-Leetf Pertussis Immunization History Administered Date(s) Administered ??? Influenza (IM) Preservative Free 02/24/2015 ? ? Influenza (IM)>3yr Quadrivalent Preservative Free 01/20/2013, 01/18/2015, 02/28/2017, 03/10/2018 ??? Influenza TIV (IM) 02/08/2005, 03/20/2012, 02/04/2014, 04/30/2016 ??? Influenza, Unspecified 03/20/2012, 01/20/2013, 02/27/2013, 02/05/2014, 01/18/2015 ??? Td 12/14/2001 ??? Tdap 11/25/2005, 10/14/2008 ??? Zoster 05/02/2014 Past Medical History: Diagnosis Date ??? Anaphylaxis ??? Colon polyps ??? Dysthymia ??? History of PSVT (paroxysmal supraventricular tachycardia) ??? Hyperlipidemia ??? Hypertension ??? Hypothyroidism ??? IBS (irritable bowel syndrome) ??? Insomnia ??? Mitral prolapse ??? Osteopenia Past Surgical History: Procedure Laterality Date ??? BLADDER REPAIR 03/23/2003 ??? BLEPHAROPLASTY ??? BREAST SURGERY Bilateral 02/2004 Lift ??? SECTION, CLASSIC 1981 ??? COLONOSCOPY 2011 ??? COLONOSCOPY 12/17/2016 3 mm small polyp removed ??? ESOPHAGOGASTRODUODENOSCOPY 12/17/2016 ??? FINGER SURGERY Right 11/21/2004 Ulnar collateral ligament repair, thumb ??? FOOT SURGERY metacarpal ??? HAND SURGERY Left 03/2018 ??? TONSILLECTOMY Family History Problem Relation Age of Onset [...] level: Bachelor's degree (e.g., BA, AB, BS) Occupational History ??? 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 Financial resource strain: Not hard at all ??? Food insecurity: Worry: Never true Inability: Never true ??? Transportation needs: Medical: No Non-medical: No Tobacco Use ??? Smoking status: Never Smoker ??? Smokeless tobacco: Never Used Substance and Sexual Activity ??? Alcohol use: Yes Comment: occassional ??? Drug use: No ??? Sexual activity: Not on file Lifestyle ??? Physical activity: Days per week: 4 days Minutes per session: 60 min ??? Stress: Only a little Relationships ??? Social connections: Talks on phone: Three times a week Gets together: Three times a week Attends holiness service: Never Active member of club or organization: No Attends meetings of clubs or organizations: Never Relationship status: Living with partner ??? Intimate partner violence: Fear of current or ex partner: No Emotionally abused: No Physically abused: No Forced sexual activity: No Other Topics Concern ??? Not on file Social History Narrative ??? Not on file REVIEW OF SYSTEMS: GENERAL: No fever, chills, change in appetite and/or fatigue. The patient has intentionally lost 8 pounds. SKIN: No rashes, no lesions. HEAD AND NECK: No headache, no dizziness. EYES: No visual changes. She does wear reading glasses and sees Dr. Arauz, eye doctor, in [place], on a regularly basis. EARS: No hearing loss, no tinnitus. NOSE: No chronic sinusitis. MOUTH AND THROAT: No problems with her teeth, gums and/or swallowing. She sees a dentist on a regular basis. CARDIOVASCULAR: No chest pain, pressure, palpitations, lightheadedness, dizziness, presyncope, syncope, and/or peripheral edema. The patient has a history of SVTs likely stress induced. She was on a beta loco for a period of time which she has since discontinued. The patient does have a history of h ypertension and is on Diovan 80 mg daily. She had a normal stress test on 07/04/11. She has a historyof mitral valve prolapse. RESPIRATORY: No dyspnea on exertion, cough, asthma, and/or wheezing. BREASTS: No masses, discharge, and/or change in appearance. She does a self exam. She had a mammogram in November of 2017, and is due in November. GASTROINTESTINAL: See HPI. The patient has a history of irritable bowel syndrome which she has learned to cope with. No associated symptoms, no abdominal pain, nausea, vomiting, hematochezia, and/or heartburn. GENITOURINARY: The patient does have urinary urgency, frequency, but she drinks a lot of water. She rarely drinks caffeine. No hematuria. GYNECOLOGIC: 1, para 1. The patient lost an infant son at 11 days old. Her last menstrual period was at the age of 52. She is not sexually active. She has had 1 abnormal Pap smear in her 30s, with normal biopsies x2. ENDOCRINE: The patient has hypothyroidism after having radiation of the thyroid for a goiter. She does have a history of osteopenia, and had a DEXA scan in 2014, repeated in 2016, and is currently on Calcium with Vitamin D supplement. MUSCULOSKELETAL: The patient has spondylolisthesis in her lower back and sees a chiropractor on a frequent basis. She does have arthritis in her knees. The patient continues to have pain, discomfort, and clicking in her right knee, having a previous arthroscopic procedure. The patient did proceed witha right knee MRI at [facility], and reports she has a hematoma in the back of her knee; the report is not available. NEUROLOGIC: No numbness, tingling, and/or weakness. PSYCHIATRIC: No anxiety and/or depression. Objective Visit Vitals BP 110/66 (BP Location: Right arm, Patient Position: Sitting) Pulse 78 Temp 36.2 ??C (97.1 ??F) (Temporal) Resp 16 Ht 1.572 m (5' 1.89) Wt 75.4 kg (166 lb 3.6 oz) SpO2 99% BMI 30.51 kg/m?? Smoking Status Never Smoker BSA 1.81 m?? GENERAL: The patient is alert, oriented, and in no apparent distress. HEENT: Head normocephalic. Eyes, pupils round and reactive to light. EOMs intact without nystagmus. Ears normal canals, normal pearly steel TMs bilaterally. Throat, normal oropharynx. Uvula rises midline. NECK: Supple. No cervical or posterior lymphadenopathy, no thyromegaly. RESPIRATORY: Lungs are clear, bilaterally. No wheezing. CARDIOVASCULAR: Normal heart rate and rhythm. No murmur. No peripheral edema. GASTROINTESTINAL: Abdomen soft, nontender, no organomegaly. Positive bowel sounds. BREASTS: Symmetric, no retractions, discharge or lesions. Contour and consistency firm and homogenous. No masses or tenderness. No lymphadenopathy. GYNECOLOGIC: The patient declined. MUSCULOSKELETAL: Patient moves freely about the room. PSYCHIATRIC: The patient???s thought process and conversations is appropriate DIAGNOSTICS: Pap smear, urinalysis, results pending. The patient agrees to return fasting for a lipid panel, TSH, T3, free T4, CBC with diff, vitamin D, and chem8. Assessment/Plan Encounter Diagnoses Name Primary? Annual physical exam Yes ??? Essential (primary) hypertension ??? Hyperlipidemia, unspecified hyperlipidemia type ??? Hypothyroidism, unspecified type ??? Cold sore ??? Insomnia, unspecified type ??? Osteopenia, unspecified location ??? History of anaphylaxis ??? History of muscle spasm ??? History of urinary urgency ??? Screening, anemia, deficiency, iron Discussed the plan of care with the patient. The patient is allergic to TD. She can consider the Shingrix. The patient agrees to proceed with a DEXA scan at [facility], when she has her mammogram in November. She is due for her colonoscopy in 2019. The patient's last Pap smear was in 2016, with no HPV co- testing, she will be due in 2019. The patient will continue Lipitor 10 mg daily every other day for hyperlipidemia, and will be notified of her lipid panel results, and any recommendations. Thepatient will continue Diovan 80 mg daily for her hypertension. The patient will continue Synthroid 150 mcg daily and Liothyronine 5 mcg tablet daily for hypothyroidism, until her TSH results are available. Recommended she attain 6045-4949 mg of calcium with 800 international vitamin D, in divided doses daily. Vitamin D level pending. The patient will continue nurse wound care for her muscle skeletalissues. The patient takes Ambien 10 mg tablet, 1/2-1 tablet as needed for insomnia, and trazodone 50mg at bedtime. Epi pen renewed for anaphylaxis, which she should carry with her. She will continue Valtrex 2000 mg twice daily for her cold sores x 2 doses. The patient can take Flexeril as needed for muscle spasms, and understands she should drive while taking it. The patient agreed to sign a releaseof information to review her right knee MRI from [facility]. She will be notified of her lab results. The patient agrees and understands this plan of care. Jennifer Carranza APRN, [place] documented in this encounter Plan of Treatment Not on filedocumented as of this encounter Results Basic metabolic panel (10/02/2018 8:22 AM CDT) athologist Signature Sodium 141 135 - 145 10/02/2018 [facility] [place] mmol/L 8:40 AM CDT [place] Potassium 4.3 3.5 - 5.1 10/02/2018 [facility] [place] mmol/L 8:40 AM T [place] Comment: . Chloride 101 98 - 107 mmol/L 10/02/2018 8:40 AM CDT [facility] [place] Comment: . CO2 29 22 - 29 mmol/L 10/02/2018 8:40 AM CDT [facility] [place] Comment: . Creatinine 0.6 0.4 - 1.2 mg/dL 10/02/2018 8:40 AM CDT [facility] [place] Comment: . BUN 20 5 - 25 mg/dL 10/02/2018 8:40 AM CDT [facility] [place] Comment: . Glucose 91 70 - 100 mg/dL 10/02/2018 8:40 AM CDT [facility] [place] Calcium, Total,S 9.8 8.4 - 10.2 mg/dL 10/02/2018 8:40 AM CDT [facility] [place] Comment: . Fasting? Yes 10/02/2018 8:28 AM CDT [facility] [place] Specimen Anatomical Collection Method Collection Time Receive d Time (Source) Location / / Volume Laterality Blood (Blood, 10/02/2018 8:22 AM 10/03/19 19 8:22 Venous) CDT AM CDT Jennifer Carranza APRN, CNP LAB BLOOD ORDERABLES Performing Organization Address [facility]/ZIP Code Phon e Number [facility] [place] [address] [place] [address] Vitamin D, Total ([facility] preferred) (10/02/2018 8:22 AM CDT) P athologist Signature Vitamin D, 49.4 ng/mL 10/02/2018 [facility] 1:09 PM CDT [facility] Comment: Deficient [...] CNP LAB BLOOD ORDERABLES Performing Organization Address City/[facility]/ZIP Code Phon e Number [facility] [address] [place] [id number] (ABNORMAL) CBC Branch Off w/Diff (10/02/2018 8:22 AM CDT) Patholo gist Method Time Signature WBC 4.4 3.5 - 10.5 10/02/2018 [facility] K/uL 8:30 AM CDT [place] RBC 4.56 3.90 - 10/02/2018 [facility] [place] 5.00 M/uL 8:30 AM CDT [place] Hemoglobin 14.7 12.0 - 10/02/2018 [facility] 15.5 g/dL 8:30 AM CDT [place] Hematocrit 43.0 35.0 - 10/02/2018 [facility] 44.0 % 8:30 AM CDT [place] Platelets 251 150 - 450 10/02/2018 [facility] K/uL 8:30 AM CDT [place] MCV 94.3 81.6 - 10/02/2018 [facility] 98.3 fL 8:30 AM CDT [place] MCH 32.2 (H) 26.0 - 10/02/2018 [facility] [place] 32.0 pg 8:30 AM CDT [place] MCHC 34.2 32.0 - 10/02/2018 [facility] [place] 36.0 g/dL 8:30 AM CDT [place] RDW 12.6 11.9 - 10/02/2018 [facility] [place] 15.5 % 8:30 AM CDT [place] Lymphocytes % 29.3 18.0 - 10/02/2018 [facility] [place] 45.0 % 8:30 AM CDT [place] Mid-size Cells 4.7 3.3 - 10.1 10/02/2018 [facility] % 8:30 AM CDT [place] Granulocytes/Sadie 66.0 45.8 - 10/02/2018 [facility] [place] trophils 73.7 % 8:30 AM CDT [place] Lymphocytes 1.3 0.9 - 2.9 10/02/2018 [facility] [place] Absolute K/uL 8:30 AM CDT [place] MIDS Absolute 0.2 0.2 - 0.8 10/02/2018 [facility] K/uL 8:30 AM CDT [place] Granulocytes/Sadie 2.9 2.1 - 8.7 10/02/2018 [facility] [place] trophils K/uL 8:30 AM CDT [place] Absolute Specimen Anatomical Collection Method Collection Time Receive d Time (Source) Location / / Volume Laterality Blood (Blood, 10/02/2018 8:22 AM 10/03/19 19 8:22 Venous) CDT AM CDT Jennifer Carranza APRN, COMPLAINT ADJUSTER LAB BLOOD ORDERABLES Performing Organization Address City/State/ZIP Code Phon e Number [facility] [place] [address] [place] [address] T4, free (10/02/2018 8:22 AM CDT) P athologist Signature Free T4 1.51 0.78 - 2.19 10/02/2018 [facility] ng/dL 1:32 PM CDT [facility] Comment: [...] CNP LAB BLOOD ORDERABLES Performing Organization Address [facility] Phon e Number [facility] [address] [place] [address] T3 (10/02/2018 8:22 AM CDT) P athologist Signature T3, Total 1.11 0.97 - [...] CNP LAB BLOOD ORDERABLES Performing Organization Address City/[facility] Phon e Number [facility] [address] [place] [address] TSH (10/02/2018 8:22 AM CDT) athologist Signature [...] CDT 12:29 PM CDT Jennifer Carranza APRN, COMPLAINT ADJUSTER LAB BLOOD ORDERABLES Performing Organization Address City/State/ZIP Code Phon e Number [facility] [address] [place] [address] (ABNORMAL) Lipid panel (10/02/2018 8:22 AM CDT) athologist Signature Cholesterol 227 (A) 0 - 199 10/02/2018 [facility] mg/dL 1:19 PM CDT [facility] Comment: Recommended by National Cholesterol Education Program (ATP III) -------- Cholesterol Ranges -------- <200 ? Desirable 200-239 ? Borderline high >=240 ? High Triglycerides 64 0 - 149 mg/dL 10/02/2018 1:19 PM CDT [facility] Comment: -------- TRIG Ranges -------- <150 ?Normal 150-199 ? Borderline high 200-499 ? High >=500 ? Very high HDL 89 40 - 60 mg/dL 10/02/2018 1:[address] [facility] Comment: -------- HDL Ranges -------- <40 ?Low 40-59 ?Normal >=60 ? Optimal LDL Calculated 125 (A) 0 - 99 mg/dL 10/02/2018 1:19 PM CDT [facility] Comment: -------- LDL Ranges -------- <100 ? Optimal 100-129 ?Near optimal/above op timal 130-159 ?Borderline high 160-189 ?High >=190 ?Very high Specimen Anatomical Collection Method Collection Time Receive d Time (Source) Location / / Volume Laterality Blood (Blood, 10/02/2018 8:22 AM 10/03/19 19 Venous) CDT 12:19 PM CDT Jennifer Carranza APRN, COMPLAINT ADJUSTER LAB BLOOD ORDERABLES Performing Organization Address City/State/ZIP Code Phon e Number [facility] [address] [place], [place] [id number] (ABNORMAL) Urinalysis with reflex microscopic (clean catch) (09/25/2018 11:57 AM CDT) [facility] Method Time Signature Type CLEAN CATCH 09/25/2018 [facility] 1:35 PM CDT [place] Color, Urine STRAW YELLOW 09/25/2018 [facility] 1:35 PM CDT [place] Clarity, CLEAR CLEAR 09/25/2018 [facility] Urine 1:35 PM CDT [place] Glucose, NEGATIVE NEGATIVE 09/25/2018 [facility] Urine mg/dL 1:35 PM CDT [place] Bilirubin, NEGATIVE NEGATIVE 09/25/2018 [facility] Urine 1:35 PM CDT [place] Ketones, TRACE (A) NEGATIVE 09/25/2018 [facility] [place] Urine mg/dL 1:35 PM CDT [place] Specific 1.010 1.000 09/25/2018 [facility] [place], ->=1.030 1:35 PM CDT [place] Urine Blood, Urine NEGATIVE NEGATIVE 09/25/2018 [facility] 1:35 PM CDT [place] pH, Urine 7.0 5.0 - 7.0 09/25/2018 [facility] 1:35 PM CDT [place] Protein, NEGATIVE NEGATIVE-TRA 09/25/2018 [facility] Urine CE mg/dL 1:35 PM CDT [place] Urobilinogen, 0.2 0.2 - 1.0 09/25/2018 [facility] Urine E.U./dL 1:35 PM CDT [place] Nitrite, NEGATIVE NEGATIVE 09/25/2018 [facility] Urine 1:35 PM CDT [place] Leukocytes, NEGATIVE NEGATIVE 09/25/2018 [facility] Urine 1:35 PM CDT [place] Specimen Anatomical Collection Method Collection Time Receive d Time (Source) Location / / Volume Laterality Urine (Urine, 09/25/2018 11:57 09/25/2018 Clean Catch) AM CDT 11:58 AM CDT Jennifer Carranza APRN, [place] LAB URINE ORDERABLES Performing Organization Address City/State/ZIP Code Phon e Number [facility] [place] [address] [place] [address] documented in this encounter Visit Diagnoses Diagnosis Annual physical exam - Primary Routine general medical examination at a health care facility Essential (primary) hypertension Unspecified essential hypertension Hyperlipidemia, unspecified hyperlipidem ia type Hypothyroidism, unspecified type Cold sore Herpes simplex without mention of compli cation Insomnia, unspecified type Osteopenia, unspecified location History of anaphylaxis History of muscle spasm History of urinary urgency Screening, anemia, deficiency, iron Screening for iron deficiency anemia documented in this encounter Care Teams Horseback Riding Instructor Relationship Specialty Start Date End Date Jennifer Carranza APRN, COMPLAINT ADJUSTER PCP - General 11/11/17 12/13/19 [address] [facility] [place] [id number] documented as of this encounter
--- OUTSIDE RECORDS SUMMARY | 2022-01-31 09:52 | XMS_ITS | Encounter Summary ---
:1955 Author Organization [facility] Address [address] [place] [address] Care Team Providers Name Role Phone Jennifer Carranza FILLER WIPER, ROUTE SERVICE REPRESENTATIVE Primary Care Provider [phone] Reason for Visit Reason Onset Date Comments Muscle Spasms 07/17/2018 Encounter Details Date Type Department Care Team Description 07/17/2018 Telephone [place] Jennifer Carranza, Muscle Spasms [address] FILLER WIPER, [place], [place] [address] [address] [facility] [address] [phone] [place], [place] [address] Social History Tobacco Use [...] 09/25/2018 relatives? How often do you attend restorationism or scientology Never 09/25/2018 services? Do you belong to any clubs or organizations such as No 09/25/2018 restorationism groups, unions, fraternal or athletic groups, [...] Telephone Encounter - Laura Keith MA - 07/17/2018 1:12 PM CDT Please send to [facility]. Patient aware this will be sent Telephone Encounter - Jennifer Carranza APRN, [place] - 07/17/2018 12:59 PM CDT Absolutely, I could prescribe Flexeril, which causes sedation, and she should not drive while takingthis medication. If she is okay with this, where which she like the medications and to? Thanks John Telephone Encounter - Holley Tatum RN - 07/17/2018 12:38 PM CDT Please review. Telephone Encounter - Jenise Moraes - 07/17/2018 11:49 AM CDT Pt called stating she has numerous back issues and she is doing some sort of traction for her spine.She is experiencing pretty bad muscle spasms and is wondering if there is a muscle relaxer she can take at night so she can sleep. Please call Pt at [phone] to advise. documented in this encounter Plan of Treatment Not on filedocumented as of this encounter Visit Diagnoses Diagnosis Muscle ache - Primary Unspecified myalgia and myositis Muscle spasm Spasm of muscle documented in this encounter Care Teams Title Agent Relationship Specialty Start Date End Date Jennifer Carranza APRN, ROUTE SERVICE REPRESENTATIVE PCP - General 11/11/17 12/13/19 [address] [facility] [place] [id number] documented as of this encounter
--- OUTSIDE RECORDS SUMMARY | 2022-01-31 09:52 | XMS_ITS | Encounter Summary ---
:1955 Author Organization Address [address] [place] [address] Care Team Providers Name Role Phone Jennifer Carranza APRN, [facility] Primary Care Provider [phone] Encounter Details Date Type Department Care Team Description 03/18/2018 Abstract [facility] Jennifer Carranza, JOSE DANIEL, [address] [place] [address] [place] [address] AVE [phone] [place] [id number] Social History Tobacco Use Types Packs/Day [...] 09/25/2018 relatives? How often do you attend samaritan or quaker Never 09/25/2018 services? Do you belong to any clubs or organizations such as No 09/25/2018 samaritan groups, unions, fraternal or athletic groups, [...] on filedocumented in this encounter Care Teams Instructional Technology Coordinator Relationship Specialty Start Date End Date Jennifer Carranza APRN, EMAIL MARKETING ASSISTANT PCP - General 11/11/17 12/13/19 [facility] [place] [id number] documented as of this encounter
--- OUTSIDE RECORDS SUMMARY | 2022-01-31 09:53 | XMS_ITS | Encounter Summary ---
:1955 Author Organization [facility] Address [address] [place] [address] Care Team Providers Name Role Phone Jennifer Carranza SHEET MANUFACTURING SUPERVISOR, CANOE BUILDER Primary Care Provider [phone] Reason for Visit Reason Onset Date Comments DELAY ON RX 01/28/2018 Encounter Details Date Type Department Care Team Description 01/28/2018 Telephone [place] Jennifer Carranza, DELAY ON RX [address] SHEET MANUFACTURING SUPERVISOR, [place], [place] [address] [address] [facility] [address] [phone] [place], [place] [address] Social History Tobacco Use [...] How often do you attend hoahaoism or presybeterian Never 09/25/2018 services? Do you belong to [...] Telephone Encounter - Chantel Blair LPN - 01/28/2018 11:46 AM CDT Reji is pending approval to [facility]. Telephone Encounter - Cindy Sanzshonaoneyda - 01/28/2018 11:34 AM CDT [place] from [facility] calling for refill on Zopiside (?) that was requested earlier this week. Patient came in to pick it up today and was upset it wasn't ready. documented in this encounter Plan of Treatment Not on filedocumented as of this encounter Visit Diagnoses Diagnosis Insomnia, unspecified type - Primary documented in this encounter Care Teams Amusement Park Worker Relationship Specialty Start Date End Date Jennifer Carranza APRN, CANOE BUILDER PCP - General 11/11/17 12/13/[address] [place] [id number] documented as of this encounter
--- OUTSIDE RECORDS SUMMARY | 2022-01-31 09:53 | XMS_ITS | Encounter Summary ---
:1955 Author Organization [facility] Address [address] [place] [address] Care Team Providers Name Role Phone Jennifer Carranza APRN, SONG PLUGGER Primary Care Provider [phone] Reason for Visit Reason Onset Date Comments Med Refill 01/29/2018 Encounter Details Date Type Department Care Team Description 01/29/2018 Refill [place] Jennifer Carranza APRN, [address] [place], [place] [address] [address] [facility] [address] [phone] [place], [place] [address] Social History Tobacco Use [...] How often do you attend pentecostal or hoahaoism Never 09/25/2018 services? Do you [...] on filedocumented in this encounter Care Teams Tip Stitcher Relationship Specialty Start Date End Date Jennifer Carranza APRN, SONG PLUGGER PCP - General Family Medicine 11/12/[address] [place] [address] [place] [id number] documented as of this encounter
[2022-01-31 14:39] LABS: Albumin* 4.6 g/dL (3.3-5.0); Chloride* 100 mmol/L (96-114)
[2022-01-31 14:40] LABS: Potassium* 4.8 mmol/L (3.6-5.1); Sodium* 137 mmol/L (135-149)
[2022-01-31 14:42] LABS: Alkaline Phosphatase* 71 U/L (40-150); Aspartate Amino Transferase* 26 U/L (12-35); Bilirubin Total* 0.5 mg/dL (0.1-1.5); Blood Urea Nitrogen* 16 mg/dL (7-30); Carbon Dioxide* 27 mmol/L (20-32); Cholesterol* 211 mg/dL (90-199); Creatinine* 0.8 mg/dL (0.5-1.5); Estimated Glomerular Filt Rate 81 ml/min; Glucose* 89 mg/dL (60-115); Total Protein* 7.4 g/dL (6.0-8.3); Triglycerides* 51 mg/dL (40-149); White Blood Count* 5.58 K/uL (4.50-11.00)
[2022-01-31 14:43] LABS: Alanine Aminotransferase* 22 U/L (4-35); Basophils Absolute Auto 0.04 K/uL (0.00-0.30); Basophils Percent Auto 0.7 % (0.0-3.0); Calcium* 9.7 mg/dL (8.4-10.6); Eosinophils Absolute Auto 0.12 K/uL (0.00-0.50); Eosinophils Percent Auto 2.2 % (0.0-7.0); HDL Cholesterol* 94 mg/dL (>=50); Hematocrit 42.6 % (33.0-51.0); Hemoglobin* 14.1 gm/dL (12.0-16.0); LDL Cholesterol Calculated 107 mg/dL (<100); Lymphocytes Absolute Auto 1.49 K/uL (0.90-2.90); Lymphocytes Percent Auto 26.7 % (20-44); Mean Corpuscular HGB Conc 33 gm/dL (32-36); Mean Corpuscular Hemoglobin 33 pg (26-34); Mean Corpuscular Volume 99 fL (80-100); Monocytes Percent Auto 5.6 % (0.0-11.0); Neutrophils Absolute Auto 3.62 K/uL (1.7-7.0); Neutrophils Percent Auto 64.8 % (42.0-72.0); Platelet Count* 247 K/uL (140-440); RDW Coefficient of Variation % 11.9 % (11.5-15.5); Red Blood Count 4.29 m/uL (4.00-5.20)
[2022-01-31 14:46] LABS: Slide Review Reflex No
[2022-02-01 16:42] LABS: Thyroid Stimulating Hormone* < 0.015 uIU/mL (0.270-4.20)
== END 2022-01-31 09:32 | disposition home or self-care (01) ==
PROVIDERS: PCP Nurse Practitioner Family; Visit Provider Nurse Practitioner Family
DX: Z00.00 Encounter for general adult medical examination without abnormal findings (principal); E78.5 Hyperlipidemia, unspecified; E03.9 Hypothyroidism, unspecified; I10 Essential (primary) hypertension; Z51.81 Encounter for therapeutic drug level monitoring; Z13.0 Encounter for screening for diseases of the blood and blood-forming organs and certain disorders involving the immune mechanism
CPT/HCPCS: 36415; 80053; 80061; 84443; 85025

== ENCOUNTER 2023-03-06 08:53 | Outpatient (CLI) | payer MEDICARE, SELFPAY | END 2023-03-06 08:54 | disposition home or self-care (01) | PROVIDERS: PCP Nurse Practitioner Family; Visit Provider Nurse Practitioner Family | DX: E78.2 Mixed hyperlipidemia (principal); I10 Essential (primary) hypertension; E03.9 Hypothyroidism, unspecified; Z79.899 Other long term (current) drug therapy | CPT/HCPCS: 80053; 80061; 84443; 85025 ==

== ENCOUNTER 2023-06-24 14:49 | Outpatient (CLI) | payer MEDICARE, SELFPAY | END 2023-06-24 14:50 | disposition home or self-care (01) | PROVIDERS: PCP Nurse Practitioner Family; Visit Provider Nurse Practitioner Family | DX: R00.2 Palpitations (principal); E03.9 Hypothyroidism, unspecified; I10 Essential (primary) hypertension | CPT/HCPCS: 80053; 83735; 84443; 84484 ==

== ENCOUNTER 2023-08-18 13:45 | Outpatient (CLI) | payer MEDICARE, SELFPAY ==
--- OUTSIDE RECORDS SUMMARY | 2023-08-18 13:49 | XMS_ITS | Clinical Summary ---
Author Name Unknown Organization [facility] Address [address] [place] [address] Care Team Providers Care Building Certifier Name Role Phone Elsewhere, Pcp Primary Care Provider Unavailabl e Source Comments Patient records contain information from all sites at [facility]. For routine questions regarding patient records, call [phone] during business hours, M-F 8:00 AM - 5:00 PM Central Time. Record requests for emergency care only can be directed to [phone] at any time.[facility] Allergies Active Allergy Reactions Criticality Noted Date Comments Diphtheria,Pertussis, Tetanus,Polio Vacc Other (see comments) 06/14/2010 No reaction listed in Cerner Hylan G-F 20 Other (see comments) 06/22/2013 Synvisc - No reaction listed in [facility]ner Pollen Extracts Other (see comments) 07/03/2013 No reaction listed in [employer]ner Wasp Venom Other (see comments) 12/31/2010 Hornet - No reaction listed in [employer]ner Medications Medication Sig Dispensed Refills Start Date End Date Status zolpidem (AMBIEN) 10 mg tablet Take 0.5 tablets by mouth at bedtime. 01/04/2016 Active valsartan (DIOVAN) 40 mg tablet Take 2 tablets by mouth daily. 04/18/2016 Active EPINEPHrine 0.3 mg/0.3 mL injection syringe See instructions 04/18/2015 Active MULTIVITAMIN ORAL Take by mouth daily. 05/02/2014 Active B.ANI/L.ACI/L.BERNICE/L. PLAN/L.TASH (PROBIOTIC FORMULA ORAL) Take 1 capsule by mouth daily. 07/08/2012 Active ondansetron ODT (ZOFRAN-ODT) 4 mg disintegrating tablet Take 1 tablet by mouth every 8 (eight) hours as needed for nausea. 04/18/2015 Active traZODone (DESYREL) 50 mg tablet Take 1 tablet by mouth at bedtime as needed for sleep. 08/18/2017 Active valACYclovir (VALTREX) 500 mg tablet Take 1 tablet by mouth 2 (two) times a day. as needed 12/11/2017 Active cholecalciferol, vitamin D3, 1,000 Unit tablet Take 1,000 Units by mouth. Active ZINC ORAL Take by mouth. As needed Active calcium carbonate (CALCIUM 500 ORAL) Take 500 mg by mouth. Active meclizine (ANTIVERT) 25 mg tablet 06/30/2021 Active cyclobenzaprine (FLEXERIL) 10 mg tablet as needed. 01/31/2022 Active estradioL (VAGIFEM) 10 mcg vaginal tablet 01/31/2022 Active sulfamethoxazole-tri methoprim (BACTRIM DS) 800-160 mg per tablet 02/13/2022 Active Synthroid 150 mcg tabletIndications:Hy pothyroidism Post Radio Iodine Take 1 tablet (150 mcg total) by mouth every morning before breakfast. 90 tablet 3 03/26/2022 Active Additional Information Patient not taking.Reported on 03/17/2023 atorvastatin (LIPITOR) 20 mg tablet Take 20 mg by mouth daily. 03/07/2023 Active Synthroid 125 mcg tabletIndications:Hy pothyroidism Post Radio Iodine Take 1 tablet (125 mcg total) by mouth every morning before breakfast. 90 tablet 3 06/04/2023 Active Active Problems Problem Noted Date Diagnosed Date Osteoporosis Post Menopausal Without Pathologica l Fracture 03/04/2022 Overview: Fractures None Treatment Reclast 5 mg yearly 06/2022 (after dental work) anticipate 3 years therapy. Additional history 2021: 30 lb weight loss No parental hip fx. No tobacco, has cut down on EtOH. Tear Rotator Cuff Subsequent Left 09/14/2021 Overview: Added automatically from request for surgery [id number] Pain Knee Left 11/16/2019 Overview: Added automatically from request for surgery [id number] Anterior Cruciate Ligament Reconstruction Status Post 05/29/2017 Hypertension NOS 05/26/2017 Hypothyroidism Post Radio Iodine 05/26/2017 Overview: Grave's disease s/p MANZO resulting in hypothyroidism 02/2022 Stopped cytomel, she reported low TSH in PCP at [place]. Lost 30 lbs in past year, intentionally. Follow up TSH in Mar. She realizes further dose adjustment may be necessary. Weight based replacement is about 100 mcg. She is taking it consistently and correctly. Hyperlipidemia 05/26/2017 Pain Knee Right 05/22/2017 Overview: Added automatically from request for surgery [id number] Depression/Beckie/Bipolar NOS 04/18/2015 Overview: Disorder Mood NOS Dysthymia 06/11/2011 Overview: Dysthymic Disorder Limitation Of Motion Finger Right Follow Up Examination Postoperative Visit Vertigo Benign Paroxysmal Positional Left Vertigo Benign Paroxysmal Positional Bilateral Encounters Date Type Department Care Team Description 06/24/2023 [facility] [address] [place] [address] Jennifer Carranza C.N.P. Palpitations (Primary Dx) 06/03/2023 Refill Division of Endocrinology in [place], [place] [address] [place] [address] Azam Rasheed M.D. Med Refill from Last 3 Months Immunizations Name Administration Dates Next Due HZV (ZOSTAVAX) 05/02/2014 Influenza (IM) Preservative Free 02/24/2015 Influenza TIV (IM) 04/30/2016, 4,03/20/2012,2004 Influenza high dose QV(65 ye ars or older) (PF) 02/06/2023,01/15/2022,01/25/2021 Influenza, Injectable, Mdck, Preservative Free, Quadrivalent 02/27/2013 Influenza, Injectable, Quadrivalent 12/07,02/01/2019,04/30/2016,2014,02/04/2014,02/27/2013,03/20/2012,1 04/10/2004 Influenza, Unspecified 01/18/2015,2013,02/27/2013,2012,03/20/2012 PCV20 01/15/2022 PPSV23 01/25/2021 RSV: respiratory syncytial v irus (AREXVY) recombinant vaccine 03/10/2023 RZV (SHINGRIX) 08/02/2020,01/14/2020 SARS-COV-2 (COVID-19) - MODE RNA (12 YEARS AND OLDER) [id number] 04/10/2023 SARS-COV-2 (COVID-19) - PFIZ ER (Discontinued)(12 years or older) 03/05/2021,07/17/2020,06/21/2020 SARS-COV-2 (COVID-19) - PFIZ ER BIVALENT TS(Discontinued)(12 YEARS OR OLDER) 02/02/2022 SARS-COV-2 (COVID-19) - PFIZ ER TS(Discontinued)(12 years or older) 08/15/2021 Td (Adult), adsorbed 12/14/2001 Tdap 10/14/2008,11/25/2005 influenza vaccine QV(FLUBLOK ) (18 years or older) (PF) 12/30/2019,02/01/2019 influenza vaccine quad (FLUZONE/FLUARIX) (6 months and older)(PF) 12/30/2019,02/01/2019,03/10/2018,2016,04/30/2016,02/24/2015,01/18/2015,1 ,02/27/2013,01/20/2013, 012,02/08/2005 Family History Medical History Relation Name Comments Hyperlipidemia Brother Basal cell carcinoma Father Coronary artery disease Father Heart attack Father in age 40s Hyperlipidemia Father Hypertension Father Prostate cancer Father Basal cell carcinoma Mother Osteoporosis Mother Anesthesia problems Neg Hx Relation Name Status Comments Brother Father Mother Social History Tobacco Use Types Packs/Day Years Used Date Smoking Tobacco: Former Cigarettes Q uit: 04/07/1987 Smokeless Tobacco: Never Tobacco Cessation:Counseling Given: Not Answered Humiliation, Afraid, Rape, and Kick questionnair e Answer Date Recorded Within the last year, have y ou been afraid of your partner or ex-partner? No 07/30/2021 Within the last year, have y ou been humiliated or emotionally abused in other ways by your partner or ex-partner? No Within the last year, have y ou been kicked, hit, slapped, or otherwise physically hurt by your partner or ex-partner? No 07/30/2021 Within the last year, have y ou been raped or forced to have any kind of sexual activity by your partner or ex-partner? No 07/30/2021 Social Connection and Isolat ion Panel [NHANES] Answer Date Recorded In a typical week, how many times do you talk on the phone with family, friends, or neighbors? Twice a week 07/30/2021 How often do you get togethe r with friends or relatives? More than three times a week 07/30/2021 How often do you attend [facility] or zoroastrian services? Patient declined 07/30/2021 Do you belong to any clubs o r organizations such as taoist groups, unions, fraternal or athletic groups, or school groups? Yes 07/30/2021 How often do you attend meet ings of the clubs or organizations you belong to? More than 4 times per year 07/30/2021 Are you , , di vorced, , never , or living with a partner? Living with partner 07/30/2021 AUDIT-C Answer Date Recorded Q1: How often do you have a drink containing alcohol? 4 or more times a week 07/30/2021 Q2: How many drinks containi ng alcohol do you have on a typical day when you are drinking? 1 or 2 2 Q3: How often do you have si x or more drinks on one occasion? Never 07/30/2021 Overall Financial Resource Strain (CARDIA) Answe r Date Recorded How hard is it for you to pa y for the very basics like food, housing, medical care, and heating? Not hard at all 07/30/2021 [facility] - Occupational Stress Questionnaire Answer Date Recorded Do you feel stress - tense, restless, nervous, or anxious, or unable to sleep at night because your mind is troubled all the time - these days? Not at all 07/30/2021 Exercise Vital Sign Answer Date Recorde d On average, how many days pe r week do you engage in moderate to strenuous exercise (like a brisk walk)? 4 days 07/30/2021 On average, how many minutes do you engage in exercise at this level? 40 min 07/30/2021 Hunger Vital Sign Answer Date Recorded Within the past 12 months, y ou worried that your food would run out before you got the money to buy more. Never true 07/31/19 Within the past 12 months, t he food you bought just didn't last and you didn't have money to get more. Never true 07/30/2021 PRAPARE - Transportation Answer Date Re corded In the past 12 months, has l ack of transportation kept you from medical appointments or from getting medications? No 07/07 In the past 12 months, has l ack of transportation kept you from meetings, work, or from getting things needed for daily living? No 07/30/2021 Housing Stability Vital Sign Answer Gonzales e Recorded In the last 12 months, was t here a time when you were not able to pay the mortgage or rent on time? No 07/30/2021 In the last 12 months, how many places have you lived? 1 07/30/2021 In the last 12 months, was t here a time when you did not have a steady place to sleep or slept in a nursing home (including now)? No 07/30/2021 Nutrition Answer Date Recorded Nutrition: EVOO Fat Source Yes 07/30 On average, how many serving s of fruits and vegetables do you eat per day (serving size is equal to 1 cup or approximately the size of a tennis ball)? 4-5 07/30/2021 Dental Answer Date Recorded Dental: Regular Dentist Yes 07/31/19 Employment Answer Date Recorded Employment status Retired 07/30/2021 Education Answer Date Recorded What is the highest level of school you have completed or the highest degree you have received? Bachelor's degree (e.g., BA, AB, BS) 03/10/2019 Sex and Gender Information Value Date Recorded Sex Assigned at Female 05/19/2017 11:19 AM FRETTED STRING INSTRUMENT REPAIRER Gender Identity Female 05/19/2017 11:19 AM FRETTED STRING INSTRUMENT REPAIRER Sexual Orientation Straight 05/19/2017 11 :19 AM FRETTED STRING INSTRUMENT REPAIRER Last Filed Vital Signs Vital Sign Reading Time Taken Comments Blood Pressure 136/87 03/04/2022 7:47 AM FRETTED STRING INSTRUMENT REPAIRER Pulse 79 03/04/2022 7:47 AM FRETTED STRING INSTRUMENT REPAIRER Temperature 36.9 ??C (98.4 ??F) 03/12/2018 1 1:45 AM FRETTED STRING INSTRUMENT REPAIRER Respiratory Rate 19 03/12/2018 11:3 0 AM FRETTED STRING INSTRUMENT REPAIRER Oxygen Saturation 95% 03/12/2018 11: 30 AM FRETTED STRING INSTRUMENT REPAIRER Inhaled Oxygen Concentration - - Weight 64.7 kg (142 lb 10.2 oz) 03/04/2022 7:47 AM FRETTED STRING INSTRUMENT REPAIRER Height 158.9 cm (5' 2.56) 03/04/2022 7:47 AM CS T Body Mass Index 25.62 03/04/2022 7:47 AM FRETTED STRING INSTRUMENT REPAIRER Plan of Treatment Upcoming Encounters Date Type Department Care Team (Late st Contact Info) Description 10/16/2023 9:00 AM CDT Appointment Department of Radiology in [address] [address] Jennifer Carranza, DarrellN.P. [address] [place] [address] Discharge Disposition: Home or Self Care Health Maintenance Due Date Last Done Comments CT Colonography 1955 Cologuard 1955 Hepatitis C Screening 1955 Colonoscopy 07/02/2018 07/03/2011 Colorectal Cancer Surveillance 07/02/2018 DTaP,Tdap,and Td Vaccines (3 - Td or Tdap) 10/14/2018 10/14/2008, 11/25/2005, 12/14/2001 Potassium Level 03/06/2022 03/06/2021, 04/2019, 10/02/2018, Additional history exists Sodium Level 03/06/2022 03/06/2021, 04/2019, 10/02/2018, Additional history exists Office Visit for Blood Press ure Check / Re-check 03/04/2023 03/04/2022 Depression Screening (Annual PHQ-2) 04/07/2023 Fall Risk Screen (Annual) 04/07/2023 Creatinine Level (Kidney Fun ction Test) 06/18/2023 06/17/2022, 03/06/2021, 01/06/2020, Additional history exists COVID-19 Vaccine (2022-2 4 season) 2023 04/10/2023, 02/02/2022, 08/15/2021, Additional history exists Thyroid Stimulating Hormone (TSH) test for thyroid function 09/07/2023 09/06/2022, 05/28/2022, 03/22/2022, Additional history exists Mammogram 02/26/2024 02/25/2023, 07/2021, 02/06/2021, Additional history exists Fasting Glucose for Diabetes Screening 03/06/2024 03/06/2021, 08/18/2015, 05/02/2014, Additional history exists Lipid (Cholesterol) Screening 03/06/2026, 01/06/2020, 10/02/2018, Additional history exists Cervical Cancer Screening Discontinued 2014, 07/11/2011, 06/14/2010 Zoster Vaccines Completed 08/02/2020, 12/2019, 05/02/2014 Pneumococcal vaccine (65+ years) Completed 01/16/20, 01/25/2021 Influenza Vaccine Completed 02/06/2023, , 01/25/2021, Additional history exists RSV vaccine - (32-3 6 weeks) or 60+ years Completed 03/10/2023 Medical Devices Implanted Type Area Legal Aid Device Identifier Shelf Expiration Date Model / Serial / Lot [place] Rigidfix Btb 2.7 - [id number] Implanted:Qty: 1 on 05/28/2017 at [facility] Hardware e.g. pins/screws /rods Right: Knee Depuy Mitek 07/06/2019 [id number] / / [id number] Anch Sut Crk Scrw Ft 2.2 - [id number] Implanted:Qty: 1 on 03/12/2018 by Ainbal Larkin M.D. at [facility] Hardware e.g. pins/screws /rods Arthrex [id number] AR-1318FT / / Anch Sut Crk Scrw Ft 2.2 - [id number] Implanted:Qty: 1 on 03/12/2018 by Anibal Larkin M.D. at [facility] Hardware e.g. pins/screws /rods Arthrex [id number] AR-1318FT / / Patellar Tendon Implanted:Qty: 1 on 05/28/2017 at [facility] Knee Implant Right: Knee [employer] [id number] 11/22/2020 [id number] / [id number] / [id number] Interference Screw Implanted:Qty: 1 on 05/28/2017 at [facility] Knee Implant Right: Knee Riberio and Nephew [id number] 07/19/2019 [id number] / / [id number] Procedures Procedure Name Priority Date/Time Associated Diagnosis Comments BI BREAST SCREENING BILATERAL WITH TOMOSYNTHESIS RAD - Routine (most inpatients and all outpatients) 02/25/2023 8:12 AM FRETTED STRING INSTRUMENT REPAIRER Screening Mammogram Breast Cancer THYROID-STIMULATING HORMONE-SENSITIVE (S-TSH) Routine 09/06/2022 8:22 AM CDT Hypothyroidism Post Radio Iodine CREATININE WITH EGFR, S/P Routine 06/17/2022 8:23 AM CDT Osteoporosis Post Menopausal Without Pathological Fracture LIPID PANEL, S Routine 03/06/2021 7:19 AM FRETTED STRING INSTRUMENT REPAIRER Graves' Disease Iron Deficiency Anemia Screening Exam Hyperlipidemia Incontinence Urinary COMPREHENSIVE METABOLIC PANEL, S/P Routine 03/06/2021 7:19 AM FRETTED STRING INSTRUMENT REPAIRER Graves' Disease Iron Deficiency Anemia Screening Exam Hyperlipidemia Incontinence Urinary THINPREP SCREEN HPV REFLEX Routine 05/02/2014 9:00 AM FRETTED STRING INSTRUMENT REPAIRER from Last 3 Months or Most Recently Relevant to Health Maintenance Results * BI Breast Screening Bilateral with Tomosynthesis (02/25/2023 8:12 AM FRETTED STRING INSTRUMENT REPAIRER) Anatomical Region Laterality Modality Breast, Breast Imaging RST L OS, Breast Imaging ARZ LOS, Breast Imaging FLA LOS Bilateral Mammography 02/25/2023 11:0 7 AM FRETTED STRING INSTRUMENT REPAIRER Impressions 02/25/2023 11:11 AM FRETTED STRING INSTRUMENT REPAIRER Negative. RECOMMENDATION: ??Annual Screening Mammogram ASSESSMENT: ??BI-RADS: 1: Negative. Narrative 02/25/2023 11:11 AM FRETTED STRING INSTRUMENT REPAIRER EXAM: ??BI BREAST SCREENING BILATERAL WITH TOMOSYNTHESIS Current study was evaluated with a Computer Aided Detection (CAD) system. INDICATION: ??Screening mammogram. COMPARISON: ??Prior exam(s) were available and reviewed for comparison. DENSITY: ??c. The breast(s) are heterogeneously dense, which may obscure small masses. FINDINGS: ??No findings of malignancy. ??No significant change since prior exam. Procedure Note Shawna Fournier M.D. - 02/25/2023 EXAM: BI BREAST SCREENING BILATERAL WITH TOMOSYNTHESIS Current study was evaluated with a Computer Aided Detection (CAD) system. INDICATION: Screening mammogram. COMPARISON: Prior exam(s) were available and reviewed for comparison. DENSITY: c. The breast(s) are heterogeneously dense, which may obscuresmall masses. FINDINGS: No findings of malignancy. No significant change since priorexam. IMPRESSION: Negative. RECOMMENDATION: Annual Screening Mammogram ASSESSMENT: BI-RADS: 1: Negative. Sunny Collado M.D. [facility] BI PROCEDUR ES * S-TSH (Thyroid-Stimulating Hormone - Sensitive) (09/06/2022 8:22 AM CDT) TSH, Sensitive 0.6 0.3 - 4.2 mIU/L 09/06/2022 11:56 AM CDT FL Blood (Blood, Venous) 09/06/2022 8:22 AM CDT 09/06/2022 8:22 AM CDT Azam Rasheed M.D. LAB BLOOD ADD-ON [facility] [address] [place] [id number], [facility] in [address] [address] * Creatinine with Estimated GFR (06/17/2022 8:23 AM CDT) Creatinine 0.74 0.59 - 1.04 mg/dL 06/17/2022 9:01 AM CDT CNFL Estimated GFR (eGFR) 89 >=60 mL/min/BSA 06/17/2022 9:01 AM CDT CNFL Comment: Estimated GFR calculated using the 2020 CKD_EPI creatinine equation. Blood (Blood, Venous) 06/17/2022 8:23 AM CDT 06/17/2022 8:25 AM CDT Urmila Xiao M.D., Ph.D. LAB BLOOD ADD-O [place] [address], [place] [address] * Lipid Panel (03/06/2021 7:19 AM FRETTED STRING INSTRUMENT REPAIRER) Cholesterol, Total 197 mg/dL 2020 7:41 AM FRETTED STRING INSTRUMENT REPAIRER CNFL Comment: ----REFERENCE VALUE---- Desirable: < 200 Borderline high: 200 - 239 High: > or = 240 Triglycerides 77 mg/dL 03/06/2021 7:41 AM FRETTED STRING INSTRUMENT REPAIRER CNFL Comment: ----REFERENCE VALUE---- Normal: <150 Borderline high: 150-199 High: 200-499 Very high: > or =500 Cholesterol, HDL 82 >=50 mg/dL 03/06/20 7:41 AM FRETTED STRING INSTRUMENT REPAIRER CNFL Calculated LDL 100 mg/dL 03/06/2021 7:41 AM FRETTED STRING INSTRUMENT REPAIRER CNFL Comment: ----REFERENCE VALUE---- Desirable: <100 mg/dL Above Desirable: 100-129 mg/dL Borderline High: 130-159 mg/dL High: 160-189 mg/dL Very High: >=190 mg/dL Cholesterol, Non-HDL, Calculated 115 mg/dL 03/06/2021 7:41 AM FRETTED STRING INSTRUMENT REPAIRER CNFL Comment: ----REFERENCE VALUE---- Desirable: <130 Above Desirable: 130-159 Borderline high: 160-189 High: 190-219 Very high: > or =220 Blood (Blood, Venous) 03/06/2021 7:19 AM FRETTED STRING INSTRUMENT REPAIRER 03/06/2021 7:21 AM FRETTED STRING INSTRUMENT REPAIRER Jennifer Carranza C.N.P. LAB BLOOD ADD- ON [facility] [address] [place] [address], [facility] CNFL [facility] [place] [address] * Comprehensive Metabolic Panel (03/06/2021 7:19 AM FRETTED STRING INSTRUMENT REPAIRER) Potassium, P 4.3 3.6 - 5.2 mmol/L 03/06/2021 7:41 AM FRETTED STRING INSTRUMENT REPAIRER CNFL Sodium, P 135 135 - 145 mmol/L 03/06/2021 7:41 AM FRETTED STRING INSTRUMENT REPAIRER CNFL Chloride, P 101 98 - 107 mmol/L 03/06/2021 7:41 AM FRETTED STRING INSTRUMENT REPAIRER CNFL Bicarbonate, P 24 22 - 29 mmol/L 03/06/2021 7:41 AM FRETTED STRING INSTRUMENT REPAIRER CNFL Anion Gap, P 10 7 - 15 03/06/2021 7:41 AM FRETTED STRING INSTRUMENT REPAIRER CNFL BUN (Blood Urea Nitrogen), P 12 6 - 21 mg/dL 03/06/2021 7:41 AM FRETTED STRING INSTRUMENT REPAIRER CNFL Creatinine 0.74 0.59 - 1.04 mg/dL 03/06/2021 7:41 AM FRETTED STRING INSTRUMENT REPAIRER CNFL eGFR-Black/ >90 >=60 mL/min/BS A 03/06/2021 7:41 AM FRETTED STRING INSTRUMENT REPAIRER CNFL Comment: ----ADDITIONAL INFORMATION---- Estimated GFR calculated using the 2009 CKD_EPI creatinine equation. eGFR Non-Black/ 85 >=60 mL/min/BS A 03/06/2021 7:41 AM FRETTED STRING INSTRUMENT REPAIRER CNFL Comment: ----ADDITIONAL INFORMATION---- Estimated GFR calculated using the 2009 CKD_EPI creatinine equation. Calcium, Total, P 9.2 8.8 - 10.2 mg/dL 03/06/2021 7:41 AM FRETTED STRING INSTRUMENT REPAIRER CNFL Glucose, P 100 70 - 140 mg/dL 03/06/2021 7:41 AM FRETTED STRING INSTRUMENT REPAIRER CNFL Protein, Total, P 7.0 6.3 - 7.9 g/dL 03/06/2021 7:41 AM FRETTED STRING INSTRUMENT REPAIRER CNFL Albumin, P 4.2 3.5 - 5.0 g/dL 03/06/2021 7:41 AM FRETTED STRING INSTRUMENT REPAIRER CNFL Aspartate Aminotransferase (AST), P 27 8 - 43 U/L 03/06/2021 7:41 AM FRETTED STRING INSTRUMENT REPAIRER CNFL Alkaline Phosphatase, P 60 35 - 104 U/L 03/06/2021 7:41 AM FRETTED STRING INSTRUMENT REPAIRER CNFL Alanine Aminotransferase (ALT), P 24 7 - 45 U/L 03/06/2021 7:41 AM FRETTED STRING INSTRUMENT REPAIRER CNFL Bilirubin, Total, P 0.6 <=1.2 mg/dL 03/06/2021 7:41 AM FRETTED STRING INSTRUMENT REPAIRER CNFL Blood (Blood, Venous) 03/06/2021 7:19 AM FRETTED STRING INSTRUMENT REPAIRER 03/06/2021 7:21 AM FRETTED STRING INSTRUMENT REPAIRER Jennifer Carranza C.N.P. LAB BLOOD ADD- ON [facility] [address] [place] [address], [facility] [place] [address] * Pathology ThinPrep Screen HPV Reflex (05/02/2014 9:00 AM FRETTED STRING INSTRUMENT REPAIRER) Interpretation [id number] [facility]ART [facility] See Comment POWERCHART Comment: A. ??ThinPrep Pap Test Screen (Cervical/Endocervical HPV Reflex): Satisfactory for evaluation. Inadequate endocervical/transformation zone component Negative for intraepithelial lesion or malignancy. High Risk HPV testing results are NEGATIVE. See specific genotype results below. HPV with Genotyping, PCR, ThinPrep: HPV High Risk Type 16, PCR: ??NEGATIVE HPV High Risk Type 18, PCR: ??NEGATIVE HPV other High Risk types, PCR: ??NEGATIVE Other High Risk HPV types include: ??31, 33, 35, 39, 45, 51, 52, 56, 58, 59, 66, and 68. HXThPrep Scrn Cyto-Elton See Comment POWERCHART Comment: Report electronically signed by ROSALIA Haile(ASCP) 05/10/2014 07:55 Interpreted by: MILDRED Rowe (ASCP) [facility] See Comment POWERCHART Comment: A. ??ThinPrep Pap Test Screen (Cervical/Endocervical HPV Reflex): Received cloudy specimen in ThinPrep vial. Test Performed by: [place] [address] Collection Administrator: Tushar Hernandez M.D. Cervix/Endocervix 05/02/2014 9:00 AM FRETTED STRING INSTRUMENT REPAIRER Kp Contreras APRN.N.P., D.N.P. LAB PAP PATHDX ORDERABLES POWERCHART from Last 3 Months or Most Recently Relevant to Health Maintenance Care Teams Building Certifier Relationship Specialty Start Date End Date Elsewhere, Pcp PCP - General Family Medicine 06/16/20
--- OUTSIDE RECORDS SUMMARY | 2023-08-18 13:49 | XMS_ITS ---
Author Name Unknown Organization [facility] Address [address] [place] [address] Care Team Providers Care Alternative Financing Specialist Name Role Phone Unavailable Unavailable Unavailable Surgery Details Not on file Complications Check Surgery Details section. Procedure Estimated Blood Loss Check Surgery Details section. Procedure Findings Check Surgery Details section. Procedure Specimens Taken Check Surgery Details section.
--- OUTSIDE RECORDS SUMMARY | 2023-08-18 13:49 | XMS_ITS | Encounter Summary ---
Author Name Unknown Organization [facility] Address [address] [place] [address] Care Team Providers Care Build Technician Name Role Phone Elsewhere, Pcp Primary Care Provider Unavailabl e Reason for Visit * Reason Comments Med Refill Encounter Details Date Type Department Care Team ([facility] st Contact Info) Description 06/03/2023 Refill Division of Endocrinology in [place], [place] [address] [place] [address] Azam Rasheed M.D. [address] [place] [phone] Med Refill Social History Tobacco Use Types Packs/Day Years Used Date Smoking Tobacco: Former Cigarettes Q uit: 04/07/1987 Smokeless Tobacco: Never Humiliation, Afraid, Rape, and Kick questionnair e [...] week 07/30/2021 How often do you attend chur or restorationist services? Patient declined 07/30/2021 Do you belong to any clubs o r organizations such as samaritan groups, unions, fraternal [...] and heating? Not hard at all 07/30/2021 [facility] - Occupational Stress Questionnaire Answer Date [...] money to buy more. Never true 07/31/19 22 Within the past 12 months, t he [...] or slept in a correction (including now)? No 07/30/2021 Nutrition Answer Date [...] Sex Assigned at Female 05/19/2017 11:19 AM MEN'S LOCKER ROOM ATTENDANT Gender Identity Female 05/19/2017 11:19 AM MEN'S LOCKER ROOM ATTENDANT Sexual Orientation Straight 05/19/2017 11 :19 AM MEN'S LOCKER ROOM ATTENDANT documented as of this encounter Plan of Treatment Upcoming Encounters Date Type Department Care Team (Late st Contact Info) Description 10/16/2023 9:00 AM CDT Appointment Department of Radiology in [address] [phone] Jennifer Carranza C.NGavino [address] [place] [phone] Discharge Disposition: Home or Self Care documented as of this encounter Visit Diagnoses Diagnosis Hypothyroidism Post Radio Iodine documented in this encounter Additional Health Concerns Assessment Noted Time PHQ-9 Depression Total Score: 2 04/22/19 16 11:24 AM MEN'S LOCKER ROOM ATTENDANT documented as of this encounter Care Teams Build Technician Relationship Specialty Start Date End Date Elsewhere, Pcp PCP - General Family Medicine 06/16/20 documented as of this encounter
--- OUTSIDE RECORDS SUMMARY | 2023-08-18 13:49 | XMS_ITS | Encounter Summary ---
Author Name Unknown Organization [facility] Address [address] [place] [address] Care Team Providers Care Gum Scoring Machine Operator Name Role Phone Elsewhere, Pcp Primary Care Provider Unavailabl e Reason for Referral * Outpatient (Routine) - Authorized Specialty Diagnoses / Procedures Referred By Hailey castañeda Referred To Contact Cardiovascular Disease Diagnoses Palpitations Jennifer Carranza, C.N.P. [address] [place] [address] [facility] Region Referral ID Status Reason Start Date Expiration Date V isits Requested Visits Authorized [id number] Authorized 06/24/2023 12/23/2024 1 1 Encounter Details Date Type Department Care Team (Late st Contact Info) Description 06/24/2023 [facility] [address] [place] [address] Jennifer Carranza, C.N.P. [address] [place] [address] Palpitations (Primary Dx) Social History Tobacco Use Types Packs/Day Years [...] How often do you attend [facility] or scientology services? Patient declined 07/30/2021 Do you belong to any clubs o r organizations such as yarsani groups, unions, fraternal [...] and heating? Not hard at all 07/30/2021 [facility] [place] of Occupat ional Health - Occupational Stress [...] or slept in a fpc (including now)? No 07/30/2021 Nutrition Answer Date [...] Sex Assigned at Female 05/19/2017 11:19 AM INSTRUMENT INSPECTOR Gender Identity Female 05/19/2017 11:19 AM INSTRUMENT INSPECTOR Sexual Orientation Straight 05/19/2017 11 :19 AM INSTRUMENT INSPECTOR documented as of this encounter Plan of Treatment Upcoming Encounters Date Type Department Care Team (Late st Contact Info) Description 10/16/2023 9:00 AM CDT Appointment Department of Radiology in [address] [phone] Jennifer Carranza, DarrellN.P. [address] [place] [phone] Discharge Disposition: Home or Self Care Scheduled Referrals Name Type Priority Associated Diagnoses Order Schedule Cardiovascular Diseases Referral Outpatient Referral Routine Palpitations Expected: 06/24/2023 (Approximate), Expires: 09/23/2024 documented as of this encounter Visit Diagnoses Diagnosis Palpitations- Primary documented in this encounter Additional Health Concerns Assessment Noted Time PHQ-9 Depression Total Score: 2 04/22/19 16 11:24 AM INSTRUMENT INSPECTOR documented as of this encounter Care Teams Gum Scoring Machine Operator Relationship Specialty Start Date End Date Elsewhere, Pcp PCP - General Family Medicine 06/16/20 documented as of this encounter
--- OUTSIDE RECORDS SUMMARY | 2023-08-18 13:49 | XMS_ITS | Clinical Summary ---
Author Name Unknown Organization [facility] Address [address] [place] [address] Care Team Providers Care Reliability Specialist Name Role Phone Unavailable Primary Care Provider Unavailabl e Allergies Active Allergy Reactions Criticality Noted Date Comments Dtap-Ipv Vaccine 09/30/2012 Hylan G-F 20 Other Anaphylaxis High 03/03/2018 Wasps Pollen Extract 02/08/2005 Gkyesee-Okliga-Lkcxg Pertussis Wasp Venom Anaphylaxis High 04/11/2006 Medications Medication Sig Dispensed Refills Start Date End Date Status BACILLUS COAGULANS-INULIN PO Take 1 tablet by mouth 1 (one) time each day Active Multiple Vitamins-Minerals (MULTIVITAMIN ADULT PO) Take 1 tablet by mouth 1 (one) time each day Active ondansetron ODT (ZOFRAN-ODT) 4 MG dispersible tablet Take 1 tablet (4 mg total) by mouth every 8 (eight) hours if needed for nausea Active CALCIUM PO Take 500 mg by mouth 1 (one) time each day Active EPINEPHrine (EPIPEN 2-AMISHA) 0.3 MG/0.3ML injection syringeIndications :Allergic reaction, subsequent encounter Inject 0.3 mL (0.3 mg total) into the thigh if needed for anaphylaxis. Call 911 after use. 2 Syringe 3 02/01/2019 Active Additional Information Patient not taking.Reported on 11/08/2022 cholecalciferol (VITAMIN D-3) 25 MCG (1000 UT) tablet Take 1 tablet (1,000 Units total) by mouth 1 (one) time each day Active Zinc Sulfate (ZINC 15 PO) Take by mouth Active atorvastatin (LIPITOR) 10 MG tabletIndications: e Take 1 tablet (10 mg total) by mouth every night 90 tablet 3 07/14/2020 Active valACYclovir (VALTREX) 1 g tabletIndications: History of cold sores MAY TAKE 1 TABLET TWICE A DAY AT THE ONSET OF A COLD SORE 10 tablet 2 01/31/2021 Active Synthroid 175 MCG tabletIndications: Hypothyroidism, unspecified type TAKE 1 TABLET ONCE DAILY 90 tablet 02/26/2021 Active Additional Information Patient taking differently: 125 mcg Oral Daily, Reported on 11/08/2022 traZODone (DESYREL) 50 MG tabletIndications: Insomnia, unspecified type TAKE 1 TO 2 TABLETS DAILY NEEDED FOR SLEEP 180 tablet 02/26/2021 Active zolpidem (AMBIEN) 10 MG tabletIndications: Insomnia, unspecified type TAKE ONE-HALF (1/2) TABLET AT NIGHT NEEDED FOR SLEEP 15 tablet 04/12/2021 Active zoledronic acid (Reclast) 5 MG/100ML solution Infuse 100 mL (5 mg total) into a venous catheter to be given in the clinic or hospital department Active Diovan 40 MG tabletIndications: Essential hypertension TAKE 2 TABLETS ONCE DAILY FOR BLOOD PRESSURE 180 tablet 3 12/20/2022 Active estradiol (VAGIFEM) 10 MCG tablet vaginal tablet 01/28/2023 Active cyclobenzaprine (FLEXERIL) 10 MG tabletIndications: Muscle spasms of lower extremity, unspecified laterality Take 1 tablet (10 mg total) by mouth 3 (three) times a day if needed for muscle spasms 30 tablet 3 01/19/2019 0 Discontinue d(Therapy Completed) Active Problems Problem Noted Date Diagnosed Date Anaphylaxis 11/08/2022 Atrophic vaginitis 11/08/2022 Benign paroxysmal positional vertigo 11/08/2022 Disorder of paranasal sinus 11/08/2022 Graves' disease 11/08/2022 Hearing deficit 11/08/2022 Irritable bowel syndrome 11/08/2022 Mitral valve prolapse 11/08/2022 Polyp of colon 11/08/2022 Age-related osteoporosis wit hout current pathological fracture 03/04/2022 Overview: Fractures None Treatment Reclast 5 mg yearly 06/2022 (after dental work) anticipate 3 years therapy. Additional history 2021: 30 lb weight loss No parental hip fx. No tobacco, has cut down on EtOH. Tear of left rotator cuff 09/14/2021 Overview: Added automatically from request for surgery [id number] H/O colonoscopy with polypectomy 02/10/2020 Overview: Colonoscopy 06/12/2007 ([place]) - multiple polyps 3-7 mm in size; Normal colonoscopy in 06/2011 ([place]); Colonoscopy with [facility] on 12/17/2016 - repeat in 10 years. Essential hypertension 12/30/2019 Osteopenia 12/30/2019 History of reconstruction of anterior cruciate ligament tear 05/29/2017 Hypothyroidism following radioiodine therapy Overview: Grave's disease s/p MANZO resulting in hypothyroidism 02/2022 Stopped cytomel, she reported low TSH in PCP at [facility]. Lost 30 lbs in past year, intentionally. Follow up TSH in Mar. She realizes further dose adjustment may be necessary. Weight based replacement is about 100 mcg. She is taking it consistently and correctly. Knee pain 05/22/2017 Overview: Overview: Added automatically from request for surgery [id number] Insomnia 02/03/2017 Hyperlipidemia 04/30/2016 Hypothyroidism 12/04/2004 Overview: Overview: Problem list name updated by automated process. Provider to review Resolved Problems Problem Noted Date Diagnosed Date Resolved Date Essential (primary) hypertension 05/26/2017 12/30/2019 Dysthymia 06/11/2011 02/10/2020 Overview: Overview: Dysthymic Disorder Immunizations Name Administration Dates Next Due COVID-19, mRNA, LNP-S, PF, 3 0mcg/0.3mL dose Pfizer 08/15/2021,07/17/2020,06/21/2020 Flu Vaccine 50-64yrs Flublok (Egg Free) 12/30/2019,02/01/2019 Flu Vaccine High Dose 65yrs and Older IM 02/06/2023,01/15/2022,01/25/2021 INFLUENZA QUADRIVALENT MDV (IM) 12/30/19 20,02/01/2019,04/30/2016,02/24,02/04/2014,02/27/2013,03/20/2012 ,02/08/2005 Influenza (IM) Preservative Free 02/24/2015 Influenza 6mo-64yrs Quad Pre servative Free IM 03/10/2018,02/28/2017,01/18/2015,01/20 Influenza TIV (IM) 04/30/2016, 4,03/20/2012,02/08 Influenza, Unspecified 01/18/2015,2013,02/27/2013,01/20,03/20/2012 Pneumococcal Conjugate PCV20 01/15/2022 Pneumococcal Polysaccharide 01/25/2021 Td 12/14/2001 Tdap 10/14/2008,11/25/2005 Zoster 05/02/2014 Zoster Recombinant 08/02/2020,01/14/2020 Family History Medical History Relation Comments Hyperlipidemia Brother Heart attack Father Hypertension Father Prostate cancer Father Osteoporosis Mother Heart attack Paternal Grandfather 50 or 60 Relation Status Comments Brother Father Mother Paternal Grandfather Social History Tobacco Use Types Packs/Day Years Used Date Smoking Tobacco: Never Passive Smoke Exposure: Never Smokeless Tobacco: Never Tobacco Cessation:Counseling Given: No Alcohol Use Standard Drinks/Week Comments Yes 0 (1 standard drink = 0.6 oz pur e alcohol) occassional Humiliation, Afraid, Rape, and Kick questionnair e Answer Date Recorded Within the last year, have y ou been afraid of your partner or ex-partner? No 11/08/2022 Within the last year, have y ou been humiliated or emotionally abused in other ways by your partner or ex-partner? No Within the last year, have y ou been kicked, hit, slapped, or otherwise physically hurt by your partner or ex-partner? No 11/08/2022 Within the last year, have y ou been raped or forced to have any kind of sexual activity by your partner or ex-partner? No 11/08/2022 Social Connection and Isolat ion Panel [NHANES] Answer Date Recorded In a typical week, how many times do you talk on the phone with family, friends, or neighbors? More than three times a week 11/08/2022 How often do you get togethe r with friends or relatives? Three times a week 11/08/2022 How often do you attend chur ch or oriental orthodox services? Never 11/08/2022 Do you belong to any clubs o r organizations such as episcopal groups, unions, fraternal or athletic groups, or school groups? Yes 11/08/2022 How often do you attend meet ings of the clubs or organizations you belong to? More than 4 times per year 11/08/2022 Are you , , di vorced, , never , or living with a partner? 11/08/2022 Overall Financial Resource Strain (CARDIA) Answe r Date Recorded How hard is it for you to pa y for the very basics like food, housing, medical care, and heating? Not hard at all 11/08/2022 PHQ-2 Answer Date Recorded PHQ-9 Total Score 0 03/07/2023 [facility] Occupat ional Health - Occupational Stress Questionnaire Answer Date Recorded Do you feel stress - tense, restless, nervous, or anxious, or unable to sleep at night because your mind is troubled all the time - these days? Not at all 11/08/2022 Exercise Vital Sign Answer Date Recorde d On average, how many days pe r week do you engage in moderate to strenuous exercise (like a brisk walk)? 4 days 11/08/2022 On average, how many minutes do you engage in exercise at this level? 60 min 11/08/2022 Hunger Vital Sign Answer Date Recorded Within the past 12 months, y ou worried that your food would run out before you got the money to buy more. Never true 11/09/19 23 Within the past 12 months, t he food you bought just didn't last and you didn't have money to get more. Never true 11/08/2022 PRAPARE - Transportation Answer Date Re corded In the past 12 months, has l ack of transportation kept you from medical appointments or from getting medications? No 07/2022 In the past 12 months, has l ack of transportation kept you from meetings, work, or from getting things needed for daily living? No 11/08/2022 Housing Stability Vital Sign Answer Gonzales e Recorded In the last 12 months, was t here a time when you were not able to pay the mortgage or rent on time? No 11/08/2022 In the last 12 months, how many places have you lived? 1 11/08/2022 In the last 12 months, was t here a time when you did not have a steady place to sleep or slept in a jail (including now)? No 11/08/2022 Education Answer Date Recorded What is the highest level of school you have completed or the highest degree you have received? Bachelor's degree (e.g., BA, AB, BS) 03/03/2018 Sex and Gender Information Value Date Recorded Sex Assigned at Not on file Gender Identity Not on file Sexual Orientation Not on file Last Filed Vital Signs Vital Sign Reading Time Taken Comments Blood Pressure 120/70 03/07/2023 1:15 PM HOG WORKER Pulse 65 03/07/2023 1:15 PM HOG WORKER Temperature 36.3 ??C (97.4 ??F) 03/07/2023 1:15 PM CS T Respiratory Rate 16 03/07/2023 1:15 PM HOG WORKER Oxygen Saturation 95% 03/07/2023 1:15 PM HOG WORKER Inhaled Oxygen Concentration - - Weight 68.7 kg (151 lb 6.4 oz) 03/07/2023 1:15 P M HOG WORKER Height 154.9 cm (5' 1) 03/07/2023 1:15 PM HOG WORKER Body Mass Index 28.61 03/07/2023 1:15 PM HOG WORKER Plan of Treatment Health Maintenance Due Date Last Done Comments CT Colonography 1955 FIT-DNA 1955 Sigmoidoscopy 1955 iFOBT 1955 DTaP,Tdap,and Td Vaccines (3 - Td or Tdap) 10/14/2018 10/14/2008, 11/25/2005, 12/14/2001 Medicare Annual Wellness Visit (AWV) 11/09/2023 11/08/2022 Mammogram 02/26/2024 02/25/2023, 02/06, 02/08/2022, Additional history exists Fall Risk Performed 03/07/2024 03/07/2023 Colonoscopy 12/17/2026 12/17/2016 Colorectal Cancer Screening 12/17/2026 Bone Density Scan 02/08/2027 02/08/2022, , 01/18/2019, Additional history exists Pap Smear Discontinued 02/10/2020, 04/30/2016 Zoster Vaccines Completed 08/02/2020, 12/2019, 05/02/2014 Pneumococcal Vaccine: 65+ Years Completed 01/15/2022, 01/25/2021 Influenza Vaccine Completed 02/06/2023, , 01/25/2021, Additional history exists COVID-19 Vaccine Completed 04/10/2023, , 08/15/2021, Additional history exists HPV Vaccines Aged Out No longer eligi ble based on patient's age to complete this topic Procedures Procedure Name Priority Date/Time Associated Diagnosis Comments MAMMO BREAST SCREENING TOMOSYNTHESIS BILATERAL Routine 02/25/2023 8:12 AM HOG WORKER DEXA BONE DENSITY Routine 02/08/2022 9:4 9 AM CDT PAP TEST Routine 02/10/2020 11:18 AM HOG WORKER Cervical cancer screening from Last 3 Months or Most Recently Relevant to Health Maintenance Results * Pap Smear (02/10/2020 11:18 AM HOG WORKER) Sure Path PAP, screen 02/10/2020 11:18 AM HOG WORKER 02/11/2020 2:58 PM HOG WORKER Narrative [facility] - 02/17/2020 11:31 AM HOG WORKER ? [facility] ? [address] ?[place] [address] ? Patient: ?MARJAN HAMPTON ?Procedure: ? 02/10/2020 11:18 /Age/Sex: ??1955, 64 Y, F ? Received: ?02/11/2020 14:58 ?Accession #: ?? [id number] Billing: ?[id number] ?Patient Location: [facility] [place] ?OFFICE Ordered by: ?? BRENDA GANNON MD ?Attending: ? BRENDA GANNON MD ? SOFTWARE ENGINEER [facility] CYTOLOGY FINAL REPORT SPECIMEN: (A) SURE PATH PAP, SCREEN SPECIMEN DESCRIPTION: Endocervical Received cloudy specimen in SurePath vial. CLINICAL INFORMATION: LMP: ??/??/2008 ?? Menopause: Y ?? Prev.normal: 04/2016 ??SPECIMEN ADEQUACY: Satisfactory for Evaluation. ??No endocervical cells/transformation zone component present. GENERAL CATEGORIZATION: Negative for Intraepithelial Lesion or Malignancy INTERPRETATION/RESULTS: Comment: ??An inadequate endocervical/transformational zone component is not necessarily an indication for immediately repeating the pap. ??Correlation with the history and clinical exam are required. PAP Test Disclaimer Cervical cytology is a screening test primarily for squamous cancer and its precursors and has associated false-negative and false-positive results. Regular sampling and follow-up of unexplained clinical signs and symptoms are recommended to minimize the impact of false negative and false positive results. Screened By: ROSALIA RICHARDS(ASCP) Signed By: WM SOLIS <Sign Out Dr. Welsh> Reported: ??02/17/2020 ? Page 1 of 1 Brenda Gannon MD LAB CYTOLOGY YARELI BRITT [facility] [address] [place], [place] [address] from Last 3 Months or Most Recently Relevant to Health Maintenance
--- OUTSIDE RECORDS SUMMARY | 2023-08-18 13:49 | XMS_ITS | Referral Summary ---
Author Name Unknown Organization [facility] Address [address] [place] [address] Care Team Providers Care Assistive Technology Specialist Name Role Phone Elsewhere, Pcp Primary Care Provider Unavailabl e Source Comments Patient records contain information from all sites at [facility]. For routine questions regarding patient records, call [phone] during business hours, M-F 8:00 AM - 5:00 PM Central Time. Record requests for emergency care only can be directed to [phone] at any time.[facility] Encounters Date Type Department Care Team Description 06/24/2023 [facility] [address] [place] [address] Jennifer Carranza C.N.P. Palpitations (Primary Dx) 06/03/2023 Refill Division of Endocrinology in [place], [place] [address] [place] [address] Azam Rasheed M.D. Med Refill from Last 3 Months Allergies Active Allergy Reactions Criticality Noted Date [...] Overview: Added automatically from request for surgery [id number] Pain Knee Left 11/16/2019 Overview: Added automatically from request for surgery [id number] Anterior Cruciate Ligament Reconstruction Status Post 05/29/2017 Hypertension NOS 05/26/2017 Hypothyroidism Post Radio Iodine 05/26/2017 Overview: Grave's disease s/p MANZO resulting in hypothyroidism 02/2022 Stopped cytomel, she reported low TSH in PCP at [place]. Lost 30 lbs in past year, intentionally. Follow up TSH in Mar. She realizes further dose adjustment may be necessary. Weight based replacement is about 100 mcg. She is taking it consistently and correctly. Hyperlipidemia 05/26/2017 Pain Knee Right 05/22/2017 Overview: Added automatically from request for surgery [id number] Depression/Beckie/Bipolar NOS 04/18/2015 Overview: Disorder Mood NOS [...] - MODE RNA (12 YEARS AND OLDER) [id number] 04/10/2023 SARS-COV-2 (COVID-19) - PFIZ ER (Discontinued)(12 years or older) 03/05/2021,07/17/2020,06/21/2020 SARS-COV-2 (COVID-19) - PFIZ ER BIVALENT TS(Discontinued)(12 YEARS OR OLDER) 02/02/2022 SARS-COV-2 (COVID-19) - PFIZ ER TS(Discontinued)(12 years or older) 08/15/2021 Td (Adult), adsorbed 12/14/2001 Tdap 10/14/2008,11/25/2005 influenza vaccine QV(FLUBLOK ) (18 years or older) (PF) 12/30/2019,02/01/2019 influenza vaccine quad (FLUZONE/FLUARIX) (6 months and older)(PF) 12/30/2019,02/01/2019,03/10/2018,2016,04/30/2016,02/24/2015,01/18/2015,1 ,02/27/2013,01/20/2013, 012,02/08/2005 Social History Tobacco Use Types Packs/Day Years [...] week 07/30/2021 How often do you attend [facility] or scientology services? Patient declined 07/30/2021 Do you belong to any clubs o r organizations such as oriental orthodox groups, unions, fraternal or athletic groups, [...] and heating? Not hard at all 07/30/2021 [facility] Occupat ional [facility] - Occupational Stress [...] or slept in a chcf (including now)? No 07/30/2021 Nutrition Answer Date [...] Sex Assigned at Female 05/19/2017 11:19 AM FOOD SCIENCE TECHNICIAN Gender Identity Female 05/19/2017 11:19 AM FOOD SCIENCE TECHNICIAN Sexual Orientation Straight 05/19/2017 11 :19 AM FOOD SCIENCE TECHNICIAN Last Filed Vital Signs Vital Sign Reading Time Taken Comments Blood Pressure 136/87 03/04/2022 7:47 AM FOOD SCIENCE TECHNICIAN Pulse 79 03/04/2022 7:47 AM FOOD SCIENCE TECHNICIAN Temperature 36.9 ??C (98.4 ??F) 03/12/2018 1 1:45 AM FOOD SCIENCE TECHNICIAN Respiratory Rate 19 03/12/2018 11:3 0 AM FOOD SCIENCE TECHNICIAN Oxygen Saturation 95% 03/12/2018 11: 30 AM FOOD SCIENCE TECHNICIAN Inhaled Oxygen Concentration - - Weight 64.7 kg (142 lb 10.2 oz) 03/04/2022 7:47 AM FOOD SCIENCE TECHNICIAN Height 158.9 cm (5' 2.56) 03/04/2022 7:47 AM CS T Body Mass Index 25.62 03/04/2022 7:47 AM FOOD SCIENCE TECHNICIAN Plan of Treatment Upcoming Encounters Date Type Department Care Team (Late st Contact Info) Description 10/16/2023 9:00 AM CDT Appointment Department of Radiology in [address] [phone] Jennifer Carranza C.N.P. [address] [place] [phone] Discharge Disposition: Home or Self Care Medical Devices Implanted Type Area Stage Settings Painter Device Identifier Shelf Expiration Date Model / Serial / Lot [place] Rigidfix Btb 2.7 - [id number] Implanted:Qty: 1 on 05/28/2017 at [facility] Hardware e.g. pins/screws /rods Right: Knee Depuy Mitek 07/06/2019 [id number] / / [id number] Anch Sut Crk Scrw Ft 2.2 - [id number] Implanted:Qty: 1 on 03/12/2018 by Anibal Larkin M.D. at [facility] Hardware e.g. pins/screws /rods Ar[employer]rex [id number] AR-1318FT / / Anch Sut Crk Scrw Ft 2.2 - [id number] Implanted:Qty: 1 on 03/12/2018 by Anibal Larkin M.D. at [facility] Hardware e.g. pins/screws /rods Ar[employer] [id number] AR-1318FT / / Patellar Tendon Implanted:Qty: 1 on 05/28/2017 at [facility] Knee Implant Right: Knee [employer] [id number] 11/22/2020 [id number] / [id number] / [id number] Interference Screw Implanted:Qty: 1 on 05/28/2017 at [facility] Knee Implant Right: Knee Ribeiro [employer] Nephew [id number] 07/19/2019 [id number] / / [id number] Procedures Procedure Name Priority Date/Time Associated Diagnosis Comments BI BREAST SCREENING BILATERAL WITH TOMOSYNTHESIS RAD - Routine (most inpatients and all outpatients) 02/25/2023 8:12 AM FOOD SCIENCE TECHNICIAN Screening Mammogram Breast Cancer THYROID-STIMULATING HORMONE-SENSITIVE (S-TSH) Routine 09/06/2022 8:22 AM CDT Hypothyroidism Post Radio Iodine CREATININE WITH EGFR, S/P Routine 06/17/2022 8:23 AM CDT Osteoporosis Post Menopausal Without Pathological Fracture LIPID PANEL, S Routine 03/06/2021 7:19 AM FOOD SCIENCE TECHNICIAN Graves' Disease Iron Deficiency Anemia Screening Exam Hyperlipidemia Incontinence Urinary COMPREHENSIVE METABOLIC PANEL, S/P Routine 03/06/2021 7:19 AM FOOD SCIENCE TECHNICIAN Graves' Disease Iron Deficiency Anemia Screening Exam Hyperlipidemia Incontinence Urinary THINPREP SCREEN HPV REFLEX Routine 05/02/2014 9:00 AM FOOD SCIENCE TECHNICIAN from Last 3 Months or Most Recently Relevant to Health Maintenance Results * BI Breast Screening Bilateral with Tomosynthesis (02/25/2023 8:12 AM FOOD SCIENCE TECHNICIAN) Anatomical Region Laterality Modality Breast, Breast Imaging RST L OS, Breast Imaging ARZ LOS, Breast Imaging FLA LOS Bilateral Mammography 02/25/2023 11:0 7 AM FOOD SCIENCE TECHNICIAN Impressions 02/25/2023 11:11 AM FOOD SCIENCE TECHNICIAN Negative. RECOMMENDATION: ??Annual Screening Mammogram ASSESSMENT: ??BI-RADS: 1: Negative. Narrative 02/25/2023 11:11 AM FOOD SCIENCE TECHNICIAN EXAM: ??BI BREAST SCREENING BILATERAL WITH TOMOSYNTHESIS [...] ASSESSMENT: BI-RADS: 1: Negative. Sunny Collado M.D. [facility]EDUR ES * S-TSH (Thyroid-Stimulating Hormone - Sensitive) (09/06/2022 8:22 AM CDT) TSH, Sensitive 0.6 0.3 - 4.2 mIU/L 09/06/2022 11:56 AM CDT CNFL Blood (Blood, Venous) 09/06/2022 8:22 AM CDT 09/06/2022 8:22 AM CDT Azam Rasheed M.D. LAB BLOOD ADD-ON [facility] [address] [place] [id number], [facility] CNFL [facility] in [address] [address] * Creatinine with Estimated GFR (06/17/2022 8:23 AM CDT) Creatinine 0.74 0.59 - 1.04 mg/dL 06/17/2022 9:01 AM CDT CNFL Estimated GFR (eGFR) 89 >=60 mL/min/BSA 06/17/2022 9:01 AM CDT CNFL Comment: Estimated GFR calculated using the 2020 CKD_EPI creatinine equation. Blood (Blood, Venous) 06/17/2022 8:23 AM CDT 06/17/2022 8:25 AM CDT Urmila Xiao M.D., Ph.D. LAB BLOOD ADD-O N [facility] [address] [place] [address], [facility] CNFL [place] [address] * Lipid Panel (03/06/2021 7:19 AM FOOD SCIENCE TECHNICIAN) [facility] Cholesterol, Total 197 mg/dL 2020 7:41 AM FOOD SCIENCE TECHNICIAN CNFL Comment: ----REFERENCE VALUE---- Desirable: < 200 Borderline high: 200 - 239 High: > or = 240 Triglycerides 77 mg/dL 03/06/2021 7:41 AM FOOD SCIENCE TECHNICIAN CNFL Comment: ----REFERENCE VALUE---- Normal: <150 Borderline high: 150-199 High: 200-499 Very high: > or =500 Cholesterol, HDL 82 >=50 mg/dL 03/06/20 7:41 AM FOOD SCIENCE TECHNICIAN CNFL Calculated LDL 100 mg/dL 03/06/2021 7:41 AM FOOD SCIENCE TECHNICIAN CNFL Comment: ----REFERENCE VALUE---- Desirable: <100 mg/dL Above Desirable: 100-129 mg/dL Borderline High: 130-159 mg/dL High: 160-189 mg/dL Very High: >=190 mg/dL Cholesterol, Non-HDL, Calculated 115 mg/dL 03/06/2021 7:41 AM FOOD SCIENCE TECHNICIAN CNFL Comment: ----REFERENCE VALUE---- Desirable: <130 Above Desirable: 130-159 Borderline high: 160-189 High: 190-219 Very high: > or =220 Blood (Blood, Venous) 03/06/2021 7:19 AM FOOD SCIENCE TECHNICIAN 03/06/2021 7:21 AM FOOD SCIENCE TECHNICIAN Jennifer M Carranza C.N.P. LAB BLOOD ADD- ON [facility] [address] [place] [address], [facility] CNFL [facility] in [address] [place] [address] * Comprehensive Metabolic Panel (03/06/2021 7:19 AM FOOD SCIENCE TECHNICIAN) Potassium, P 4.3 3.6 - 5.2 mmol/L 03/06/2021 7:41 AM FOOD SCIENCE TECHNICIAN CNFL Sodium, P 135 135 - 145 mmol/L 03/06/2021 7:41 AM FOOD SCIENCE TECHNICIAN CNFL Chloride, P 101 98 - 107 mmol/L 03/06/2021 7:41 AM FOOD SCIENCE TECHNICIAN CNFL Bicarbonate, P 24 22 - 29 mmol/L 03/06/2021 7:41 AM FOOD SCIENCE TECHNICIAN CNFL Anion Gap, P 10 7 - 15 03/06/2021 7:41 AM FOOD SCIENCE TECHNICIAN CNFL BUN (Blood Urea Nitrogen), P 12 6 - 21 mg/dL 03/06/2021 7:41 AM FOOD SCIENCE TECHNICIAN CNFL Creatinine 0.74 0.59 - 1.04 mg/dL 03/06/2021 7:41 AM FOOD SCIENCE TECHNICIAN CNFL eGFR-Black/ >90 >=60 mL/min/BS A 03/06/2021 7:41 AM FOOD SCIENCE TECHNICIAN CNFL Comment: ----ADDITIONAL INFORMATION---- Estimated GFR calculated using the 2009 CKD_EPI creatinine equation. eGFR Non-Black/ 85 >=60 mL/min/BS A 03/06/2021 7:41 AM FOOD SCIENCE TECHNICIAN CNFL Comment: ----ADDITIONAL INFORMATION---- Estimated GFR calculated using the 2009 CKD_EPI creatinine equation. Calcium, Total, P 9.2 8.8 - 10.2 mg/dL 03/06/2021 7:41 AM FOOD SCIENCE TECHNICIAN CNFL Glucose, P 100 70 - 140 mg/dL 03/06/2021 7:41 AM FOOD SCIENCE TECHNICIAN CNFL Protein, Total, P 7.0 6.3 - 7.9 g/dL 03/06/2021 7:41 AM FOOD SCIENCE TECHNICIAN CNFL Albumin, P 4.2 3.5 - 5.0 g/dL 03/06/2021 7:41 AM FOOD SCIENCE TECHNICIAN CNFL Aspartate Aminotransferase (AST), P 27 8 - 43 U/L 03/06/2021 7:41 AM FOOD SCIENCE TECHNICIAN CNFL Alkaline Phosphatase, P 60 35 - 104 U/L 03/06/2021 7:41 AM FOOD SCIENCE TECHNICIAN CNFL Alanine Aminotransferase (ALT), P 24 7 - 45 U/L 03/06/2021 7:41 AM FOOD SCIENCE TECHNICIAN CNFL Bilirubin, Total, P 0.6 <=1.2 mg/dL 03/06/2021 7:41 AM FOOD SCIENCE TECHNICIAN CNFL Blood (Blood, Venous) 03/06/2021 7:19 AM FOOD SCIENCE TECHNICIAN 03/06/2021 7:21 AM FOOD SCIENCE TECHNICIAN Jnenifer Carranza C.N.P. LAB BLOOD ADD- ON [facility] [address] [place] [address], [facility] CNFL [place] [address] * Pathology ThinPrep Screen HPV Reflex (05/02/2014 9:00 AM FOOD SCIENCE TECHNICIAN) Interpretation [id number] POWERCHART [facility] See Comment POWERCHART Comment: A. ??ThinPrep Pap [...] 52, 56, 58, 59, 66, and 68. [facility] See Comment POWERCHART Comment: Report electronically signed by Pritesh Lewis, SCT(ASCP) 05/10/2014 07:55 Interpreted by: MILDRED Rowe (ASCP) [facility] See Comment POWERCHART Comment: A. ??ThinPrep Pap Test Screen (Cervical/Endocervical HPV Reflex): Received cloudy specimen in ThinPrep vial. Test Performed by: [facility] [address] [place] [address] Welding Lead Burner: Tushar Hernandez M.D. Cervix/Endocervix 05/02/2014 9:00 AM FOOD SCIENCE TECHNICIAN Kimberlyn Alvarez APRN, C.N.P., D.N.P. LAB PAP PATHDX ORDERABLES POWERCHART from Last 3 Months or Most Recently Relevant to Health Maintenance Care Teams Assistive Technology Specialist Relationship Specialty Start Date End Date Elsewhere, Pcp PCP - General Family Medicine 06/16/20
--- OUTSIDE RECORDS SUMMARY | 2023-08-18 13:50 | XMS_ITS | Encounter Summary ---
Author Name Unknown Organization [facility] er Address [address] [place] [address] Care Team Providers Care Entry Specialists Name Role Phone Jennifer Carranza STRATEGY ANALYST, RECLAMATION FURNACE OPERATOR Primary Care Provi tien Reason for Visit * Reason Onset Date Comments Med Refill 01/29/2018 Encounter Details Date Type Department Care Team (Late st Contact Info) Description 01/29/2018 Refill [place] [address] [place] [address] Jennifer Carranza, STRATEGY ANALYST, RECLAMATION FURNACE OPERATOR [address] [place] [id number] Insomnia, unspecified type Social History Tobacco Use Types Packs/Day Years Used Date Smoking Tobacco: Never Assessed Sex and Gender Information Value Date Recorded Sex Assigned at Not on file Gender Identity Not on file Sexual Orientation Not on file documented as of this encounter Miscellaneous Notes * Telephone Encounter - Jennifer Carranza NP - 01/29/2018 12:58 PM CDT This refill request was submitted yesterday. * Telephone Encounter - Moon Bustamante LPN - 01/29/2018 11:51 AM CDT Images from the original note were not included. Ambien (zolpidem), 10 mg, tablet, oral, 0.5 tablet, as needed, as needed for sleep 15 30 days 4 Jennifer Carranza 06/24/2017 Last visit for med 02/03/17 Next appt 03/05/18 documented in this encounter Plan of Treatment Not on file documented as of this encounter Visit Diagnoses Diagnosis Insomnia, unspecified type documented in this encounter Care Teams Entry Specialists Relationship Specialty Start Date End Date Jennifer Carranza APRN, PAOL[address] [place] [address] PCP - General Family Medicine 11/12/21 12/19/22 documented as of this encounter
--- OUTSIDE RECORDS SUMMARY | 2023-08-18 13:50 | XMS_ITS | Encounter Summary ---
Author Name Unknown Organization [facility] er Address [address] [place] [address] Care Team Providers Care Supervisor Lamp Shades Name Role Phone Jennifer Carranza APRN, SENIOR SOFTWARE DEVELOPMENT ENGINEER Primary Care Provi tien Reason for Visit * Reason Onset Date Comments Med Refill 01/29/2018 Encounter Details Date Type Department Care Team (Late st Contact Info) Description 01/29/2018 Refill [place] [address] [place] [address] Jennifer Carranza APRN, SENIOR SOFTWARE DEVELOPMENT ENGINEER [address] [place] [address] Social History Tobacco Use Types Packs/Day Years Used Date Smoking Tobacco: Never Assessed Sex and Gender Information Value Date Recorded Sex Assigned at Not on file Gender Identity Not on file Sexual Orientation Not on file documented as of this encounter Plan of Treatment Not on file documented as of this encounter Visit Diagnoses Not on filedocumented in this encounter Care Teams Supervisor Lamp Shades Relationship Specialty Start Date End Date Jennifer Carranza APRN, SENIOR SOFTWARE DEVELOPMENT ENGINEER [address] [place] [address] PCP - General Family Medicine 11/12/21 12/19/22 documented as of this encounter
--- OUTSIDE RECORDS SUMMARY | 2023-08-18 13:50 | XMS_ITS | Encounter Summary ---
Author Name Unknown Organization [facility] er Address [address] [place] [address] Care Team Providers Care Stations Superintendent Name Role Phone Jennifer Carranza WAREHOUSE SUPERVISOR 3RD SHIFT, THEATER MANAGER Primary Care Provi tien Reason for Visit * Reason Onset Date Comments Med Refill 08/18/2018 Encounter Details Date Type Department Care Team (Late st Contact Info) Description 08/18/2018 Refill [place] [address] [place] [address] Jennifer Carranza, WAREHOUSE SUPERVISOR 3RD SHIFT, THEATER MANAGER [address] [place] [phone] Hypothyroidism, unspecified type (Primary Dx) Social History Tobacco Use Types Packs/Day Years Used Date Smoking Tobacco: Never Smokeless Tobacco: Never Alcohol Use Standard Drinks/Week Comments Yes 0 (1 standard drink = 0.6 oz pur e alcohol) occassional PHQ-2 Answer Date Recorded PHQ-2 Score 0 08/05/2018 Education Answer Date Recorded What is the highest level of school you have completed or the highest degree you have received? Bachelor's degree (e.g., BA, AB, BS) 03/03/2018 Sex and Gender Information Value Date Recorded Sex Assigned at Not on file Gender Identity Not on file Sexual Orientation Not on file documented as of this encounter Miscellaneous Notes * Telephone Encounter - Laura Keith MA - 08/18/2018 4:50 PM CDT Patient informed. Will call to schedule appt when she is back in town. * Telephone Encounter - Jennifer Carranza APRN, CNP - 08/18/2018 11:11 AM CDT Please notify the patient I did renew the Synthroid and liothyronine x 90 days, and she is due for a medication renewal. Thanks, John * Telephone Encounter - Gaby Ibarra MA - 08/18/2018 10:28 AM CDT Synthroid 175mcg #90, +3 refills 09/08/2017 Liothyronine Sodium 5mg #90 +3 refills 08/07/2017 dispense as written, no generics Last office visit Sug H+P 03/06/2018 No future appt scheduled Component Latest Ref Rng & Units 09/05/2017 TSH 0.46 - 4.68 mIU/L 1.45 If patient is due for appt or labs, please advise production support consultant or PSR to assist scheduling documented in this encounter Plan of Treatment Not on file documented as of this encounter Visit Diagnoses Diagnosis Hypothyroidism, unspecified type- Primary documented in this encounter Care Teams Stations Superintendent Relationship Specialty Start Date End Date Jennifer Carranza APRN, [address] [place] [address] PCP - General Family Medicine 11/12/21 12/19/22 documented as of this encounter
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
--- NOTE | 2023-09-23 08:56 | W.PM.SLEEP ---
Sleep Study Details Details Interpreting Provider: Kash Date of Sleep Study: 08/18/23 Sleep Study Details: STUDY TYPE:? Home unattended ? BMI:? Not recorded ORDERING PROVIDER:? Kash INDICATION:? Concern about sleep apnea ? SLEEP SUMMARY:? 497 minutes monitored RESPIRATORY SUMMARY:? AHI 6.6 per CMS guidelines PERIODIC LIMB MOVEMENTS OF SLEEP:? Not recorded CARDIAC:? Range 42-92, mean 51.2 IMPRESSION:? Mild obstructive sleep apnea RECOMMENDATION: If patient is symptomatic treatment options include CPAP or dental appliance.
== END 2023-08-18 13:46 | disposition home or self-care (01) ==
LOC: SLEEP 13:45
PROVIDERS: PCP Nurse Practitioner Family; Visit Provider Otolaryngology
DX: G47.33 Obstructive sleep apnea (adult) (pediatric) (principal)
CPT/HCPCS: 95806

== ENCOUNTER 2023-09-15 14:45 | Emergency (ER) | payer MEDICARE, SELFPAY ==
[2023-09-15] VITALS (17 sets, daily range): BP systolic 130–184; BP diastolic 69–95; PULSE 57–66; RESP 16–20; TEMP 37.1–37.2; O2SAT 94–98; BMI 28.3
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
--- NOTE | 2023-09-15 14:56 | CRLHL7_ITS ---
For Patients: As a result of the Century Cures Act, medical imaging exams and procedure reports are released immediately into your electronic medical record. You may view this report before your referring provider. If you have questions, please contact your health care provider. Indication : Trauma. Technique : CT of the brain without intravenous contrast. Comparison: None relevant available at the time of interpretation. Findings: No acute blurring of the steel-white differentiation. There is no intracranial hemorrhage. The ventricles are proportionate to the cerebral sulci. The 4th ventricle is midline. Basal cisterns appear patent. No abnormal extra-axial fluid collection identified. Mild parenchymal volume loss. There is mild patchy periventricular hypodensity, favored to represent chronic ischemic microvascular disease. There is no intracranial mass, mass effect or midline shift identified. No depressed calvarial fracture. Small mucous retention cyst/polyp right maxillary sinus. Impression: 1. No acute intracranial process. 2. Mild chronic ischemic microvascular disease. Please note that all CT scans at this facility use dose modulation, iterative reconstruction, and/or weight-based dosing when appropriate to reduce radiation dose to as low as reasonably achievable. Dictated by Edouard Bowden MD @ 09/15/2023 4:01:51 PM (Electronically Signed)
--- NOTE | 2023-09-15 14:56 | CRLHL7_ITS ---
For Patients: As a result of the Cures Act, medical imaging exams and procedure reports are released immediately into your electronic medical record. You may view this report before your referring provider. If you have questions, please contact your health care provider. Indication: Trauma. Technique: CT of the cervical spine performed without IV contrast. Comparison: None available. Findings: The vertebral body heights are maintained without evidence of fracture. Mild multilevel disc height loss and degeneration. Slight straightening to the cervical lordosis. Mild multilevel cervical spondylosis with varying degrees of spinal canal and neural foraminal narrowing. No prevertebral soft tissue swelling. Left pleural apical thickening. Impression: 1. No acute osseous injury involving the cervical spine. 2. Mild cervical spondylosis. Please note that all CT scans at this facility use dose modulation, iterative reconstruction, and/or weight-based dosing when appropriate to reduce radiation dose to as low as reasonably achievable. Dictated by Edouard Bowden MD @ 09/15/2023 4:08:23 PM (Electronically Signed)
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
--- OUTSIDE RECORDS SUMMARY | 2023-09-15 16:12 | XMS_ITS | Clinical Summary ---
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 Name Role Phone Unavailable Primary Care Provider Unavailabl e Allergies Active Allergy Reactions Criticality Noted Date Comments Dtap-Ipv Vaccine 09/30/2012 Hylan G-F 20 Other Anaphylaxis High 03/03/2018 Wasps Pollen Extract 02/08/2005 Qkzcvnv-Wfmjqo-Rfqjw Pertussis Wasp Venom Anaphylaxis High 04/11/2006 Medications [...] Overview: Added automatically from request for surgery [id number] H/O colonoscopy with polypectomy 02/10/2020 Overview: Colonoscopy 06/12/2007 ([place]) - multiple polyps 3-7 mm in size; Normal colonoscopy in 06/2011 ([place]); Colonoscopy with [facility] on 12/17/2016 - repeat in 10 years. Essential hypertension 12/30/2019 Osteopenia 12/30/2019 History of reconstruction of anterior cruciate ligament tear 05/29/2017 Hypothyroidism following radioiodine therapy Overview: Grave's disease s/p MANZO resulting in hypothyroidism 02/2022 Stopped cytomel, she reported low TSH in PCP at [place]. Lost 30 lbs in past year, intentionally. Follow up TSH in Mar. She realizes further dose adjustment may be necessary. Weight based replacement is about 100 mcg. She is taking it consistently and correctly. Knee pain 05/22/2017 Overview: Overview: Added automatically from request for surgery [id number] Insomnia 02/03/2017 Hyperlipidemia 04/30/2016 Hypothyroidism 12/04/2004 Overview: [...] often do you attend chur ch or cheondoism services? Never 11/08/2022 Do you belong to [...] Date Recorded PHQ-9 Total Score 0 03/07/2023 [facility] - Occupational Stress Questionnaire Answer Date [...] or slept in a alf (including now)? No 11/08/2022 Education Answer Date [...] Comments Blood Pressure 120/70 03/07/2023 1:15 PM CHANNEL MACHINE OPERATOR Pulse 65 03/07/2023 1:15 PM CHANNEL MACHINE OPERATOR Temperature 36.3 ??C (97.4 ??F) 03/07/2023 1:15 PM CS T Respiratory Rate 16 03/07/2023 1:15 PM CHANNEL MACHINE OPERATOR Oxygen Saturation 95% 03/07/2023 1:15 PM CHANNEL MACHINE OPERATOR Inhaled Oxygen Concentration - - Weight 68.7 kg (151 lb 6.4 oz) 03/07/2023 1:15 P M CHANNEL MACHINE OPERATOR Height 154.9 cm (5' 1) 03/07/2023 1:15 PM CHANNEL MACHINE OPERATOR Body Mass Index 28.61 03/07/2023 1:15 PM CHANNEL MACHINE OPERATOR Plan of Treatment Health Maintenance Due Date [...] SCREENING TOMOSYNTHESIS BILATERAL Routine 02/25/2023 8:12 AM CHANNEL MACHINE OPERATOR DEXA BONE DENSITY Routine 02/08/2022 9:4 9 AM CDT PAP TEST Routine 02/10/2020 11:18 AM CHANNEL MACHINE OPERATOR Cervical cancer screening from Last 3 Months or Most Recently Relevant to Health Maintenance Results * Pap Smear (02/10/2020 11:18 AM CHANNEL MACHINE OPERATOR) Sure Path PAP, screen 02/10/2020 11:18 AM CHANNEL MACHINE OPERATOR 02/11/2020 2:58 PM CHANNEL MACHINE OPERATOR Narrative [facility] - 02/17/2020 11:31 AM CHANNEL MACHINE OPERATOR ? [facility] ? [address] ?[place] [address] ? Patient: ?MARJAN HAMPTON ?Procedure: ? 02/10/2020 11:18 /Age/Sex: ??1955, 64 Y, F ? Received: ?02/11/2020 14:58 ?Accession #: ?? [id number] Billing: ?[id number] ?Patient [place] [facility] [place]OFFICE Ordered by: ?? BRENDA GANNON MD ?Attending: ? BRENDA GANNON MD ? INDIVIDUALIZED EDUCATION PLAN AIDE CYTOLOGY FINAL REPORT SPECIMEN: (A) SURE PATH [...] Brenda Gannon MD LAB CYTOLOGY YARELI BRITT [facility] [address] [place] [address] from Last 3 Months or Most Recently Relevant to Health Maintenance
--- OUTSIDE RECORDS SUMMARY | 2023-09-15 16:12 | XMS_ITS | Referral Summary ---
Author Organization [facility] Address [address] [place] [address] Care Team Providers Care Assistant Facility Manager Name Role Phone Elsewhere, Pcp Primary Care Provider Unavailabl e Source Comments Patient records contain information from all sites at [facility]. For routine questions regarding patient records, call [phone] during business hours, M-F 8:00 AM - 5:00 PM Central Time. Record requests for emergency care only can be directed to [phone] at any time.[facility] Encounters Date Type Department Care Team Description 06/24/2023 [facility] [address] [place] [address] Jennifer Carranza C.NPhilPPhil Palpitations (Primary Dx) from Last 3 Months Allergies Active Allergy [...] Overview: Added automatically from request for surgery [id number] Pain Knee Left 11/16/2019 Overview: Added automatically from request for surgery [id number] Anterior Cruciate Ligament Reconstruction Status Post 05/29/2017 Hypertension NOS 05/26/2017 Hypothyroidism Post Radio Iodine 05/26/2017 Overview: Grave's disease s/p MANZO resulting in hypothyroidism 02/2022 Stopped cytomel, she reported low TSH in PCP at [place]. Lost 30 lbs in past year, intentionally. Follow up TSH in Mar. She realizes further dose adjustment may be necessary. Weight based replacement is about 100 mcg. She is taking it consistently and correctly. Hyperlipidemia 05/26/2017 Pain Knee Right 05/22/2017 Overview: Added automatically from request for surgery [id number] Depression/Beckie/Bipolar NOS 04/18/2015 Overview: Disorder Mood NOS Dysthymia 06/11/2011 Overview: Dysthymic Disorder Limitation Of Motion Finger Right Follow Up Examination Postoperative Visit Vertigo Benign Paroxysmal Positional Left Vertigo Benign Paroxysmal Positional Bilateral Immunizations Name Administration Dates Next Due HZV (ZOSTAVAX) 05/02/2014 Influenza (IM) Preservative Free 02/24/2015 Influenza TIV (IM) 04/30/2016,,03/20/2012,2004 Influenza high dose QV(65 ye ars or older) (PF) 02/06/2023,01/15/2022,01/25/2021 Influenza, Injectable, Mdck, Preservative Free, Quadrivalent 02/27/2013 Influenza, Injectable, Quadrivalent 12/07,02/01/2019,04/30/2016,2014,02/04/2014,02/27/2013,03/20/2012,1 04/10/2004 Influenza, Unspecified 01/18/2015,2013,02/27/2013,2012,03/20/2012 PCV20 01/15/2022 PPSV23 01/25/2021 RSV: respiratory syncytial v irus (AREXVY) recombinant vaccine 03/10/2023 RZV (SHINGRIX) 08/02/2020,01/14/2020 SARS-COV-2 (COVID-19) - MODE RNA (12 YEARS AND OLDER) [id number] 04/10/2023 SARS-COV-2 (COVID-19) - PFIZ ER (Discontinued)(12 [...] How often do you attend chur or druze services? Patient declined 07/30/2021 Do you belong to any clubs o r organizations such as episcopalian groups, unions, fraternal [...] and heating? Not hard at all 07/30/2021 [facility] - Occupational Stress [...] slept in a senior living (including now)? No 07/30/2021 Nutrition Answer Date [...] Sex Assigned at Female 05/19/2017 11:19 AM CARTON PACKAGING MACHINE OPERATOR Gender Identity Female 05/19/2017 11:19 AM CARTON PACKAGING MACHINE OPERATOR Sexual Orientation Straight 05/19/2017 11 :19 AM CARTON PACKAGING MACHINE OPERATOR Last Filed Vital Signs Vital Sign Reading Time Taken Comments Blood Pressure 136/87 03/04/2022 7:47 AM CARTON PACKAGING MACHINE OPERATOR Pulse 79 03/04/2022 7:47 AM CARTON PACKAGING MACHINE OPERATOR Temperature 36.9 ??C (98.4 ??F) 03/12/2018 1 1:45 AM CARTON PACKAGING MACHINE OPERATOR Respiratory Rate 19 03/12/2018 11:3 0 AM CARTON PACKAGING MACHINE OPERATOR Oxygen Saturation 95% 03/12/2018 11: 30 AM CARTON PACKAGING MACHINE OPERATOR Inhaled Oxygen Concentration - - Weight 64.7 kg (142 lb 10.2 oz) 03/04/2022 7:47 AM CARTON PACKAGING MACHINE OPERATOR Height 158.9 cm (5' 2.56) 03/04/2022 7:47 AM CS T Body Mass Index 25.62 03/04/2022 7:47 AM CARTON PACKAGING MACHINE OPERATOR Plan of Treatment Upcoming Encounters Date Type Department Care Team (Latest Contact Info) Description 10/16/2023 9:00 AM CDT Appointment Department of Radiology in [address] [phone] Jennifer Carranza, C.N.P. [address] [place] [address] Discharge Disposition: Home or Self Care 11/19/2023 1:00 PM CDT Comprehensive Visit Department of Cardiovascular Diseases in [address] [phone] Teja Solorzano APRN, C.N.P. [address] [place] [phone] Discharge Disposition: Home or Self Care 02/23/2024 8:45 AM CARTON PACKAGING MACHINE OPERATOR Office Visit Department of Dermatology in [address] [phone] Lacy Dykes M.D. [address] [place] [phone] Medical Devices Implanted Type Area Home Health Care Case Manager Device Identifier Shelf Expiration Date Model / Serial / Lot [place] Rigidfix Btb 2.7 - [id number] Implanted:Qty: 1 on 05/28/2017 at [facility] Hardware e.g. pins/screws /rods Right: Knee Depuy Mitek 07/06/2019 [id number] / / [id number] [facility] Crk Scrw Ft 2.2 - [id number] Implanted:Qty: 1 on 03/12/2018 by Anibal Larkin M.D. at [facility] Hardware e.g. pins/screws /rods Arthrex [id number] AR-1318FT / / Anch Sut Crk Scrw Ft 2.2 - [id number] Implanted:Qty: 1 on 03/12/2018 by Anibal Larkin M.D. at [facility] Hardware e.g. pins/screws /rods Arthrex [id number] AR-1318FT / / Patellar Tendon Implanted:Qty: 1 on 05/28/2017 at [facility] Knee Implant Right: Knee [employer] [id number] 11/22/2020 [id number] / [id number] / [id number] Interference Screw Implanted:Qty: 1 on 05/28/2017 at [facility] Knee Implant Right: Knee Ribeiro and Nephew [id number] 07/19/2019 [id number] / / [id number] Procedures Procedure Name Priority Date/Time Associated Diagnosis Comments BI BREAST SCREENING BILATERAL WITH TOMOSYNTHESIS RAD - Routine (most inpatients and all outpatients) 02/25/2023 8:12 AM CARTON PACKAGING MACHINE OPERATOR Screening Mammogram Breast Cancer THYROID-STIMULATING HORMONE-SENSITIVE (S-TSH) Routine 09/06/2022 8:22 AM CDT Hypothyroidism Post Radio Iodine CREATININE WITH EGFR, S/P Routine 06/17/2022 8:23 AM CDT Osteoporosis Post Menopausal Without Pathological Fracture LIPID PANEL, S Routine 03/06/2021 7:19 AM CARTON PACKAGING MACHINE OPERATOR Graves' Disease Iron Deficiency Anemia Screening Exam Hyperlipidemia Incontinence Urinary COMPREHENSIVE METABOLIC PANEL, S/P Routine 03/06/2021 7:19 AM CARTON PACKAGING MACHINE OPERATOR Graves' Disease Iron Deficiency Anemia Screening Exam Hyperlipidemia Incontinence Urinary THINPREP SCREEN HPV REFLEX Routine 05/02/2014 9:00 AM CARTON PACKAGING MACHINE OPERATOR from Last 3 Months or Most Recently Relevant to Health Maintenance Results * BI Breast Screening Bilateral with Tomosynthesis (02/25/2023 8:12 AM CARTON PACKAGING MACHINE OPERATOR) Anatomical Region Laterality Modality Breast, Breast Imaging RST L OS, Breast Imaging ARZ LOS, Breast Imaging FLA LOS Bilateral Mammography 02/25/2023 11:0 7 AM CARTON PACKAGING MACHINE OPERATOR Impressions 02/25/2023 11:11 AM CARTON PACKAGING MACHINE OPERATOR Negative. RECOMMENDATION: ??Annual Screening Mammogram ASSESSMENT: ??BI-RADS: 1: Negative. Narrative 02/25/2023 11:11 AM CARTON PACKAGING MACHINE OPERATOR EXAM: ??BI BREAST SCREENING BILATERAL WITH TOMOSYNTHESIS [...] ASSESSMENT: BI-RADS: 1: Negative. Sunny Collado M.D. [facility] BI PROCEDUR ES * S-TSH (Thyroid-Stimulating Hormone - Sensitive) (09/06/2022 8:22 AM CDT) TSH, Sensitive 0.6 0.3 - 4.2 mIU/L 09/06/2022 11:56 AM CDT CNFL Blood (Blood, Venous) 09/06/2022 8:22 AM CDT 09/06/2022 8:22 AM CDT Azam A Wermers M.D. LAB BLOOD ADD-ON Performing Organization Address [facility] [place] [address], [place] [address] * Creatinine with Estimated GFR (06/17/2022 8:23 AM CDT) Creatinine 0.74 0.59 - 1.04 mg/dL 06/17/2022 9:01 AM CDT CNFL Estimated GFR (eGFR) 89 >=60 mL/min/BSA 06/17/2022 9:01 AM CDT CNFL Comment: Estimated GFR calculated using the 2020 CKD_EPI creatinine equation. Blood (Blood, Venous) 06/17/2022 8:23 AM CDT 06/17/2022 8:25 AM CDT Urmila Xiao M.D., Ph.D. LAB BLOOD ADD-O N Performing Organization Address [facility] Co de Phone Number [address] [address], [place] [address] * Lipid Panel (03/06/2021 7:19 AM CARTON PACKAGING MACHINE OPERATOR) Cholesterol, Total 197 mg/dL 2020 7:41 AM CARTON PACKAGING MACHINE OPERATOR CNFL Comment: ----REFERENCE VALUE---- Desirable: < 200 Borderline high: 200 - 239 High: > or = 240 Triglycerides 77 mg/dL 03/06/2021 7:41 AM CARTON PACKAGING MACHINE OPERATOR CNFL Comment: ----REFERENCE VALUE---- Normal: <150 Borderline high: 150-199 High: 200-499 Very high: > or =500 Cholesterol, HDL 82 >=50 mg/dL 03/06/20 7:41 AM CARTON PACKAGING MACHINE OPERATOR CNFL Calculated LDL 100 mg/dL 03/06/2021 7:41 AM CARTON PACKAGING MACHINE OPERATOR CNFL Comment: ----REFERENCE VALUE---- Desirable: <100 mg/dL Above Desirable: 100-129 mg/dL Borderline High: 130-159 mg/dL High: 160-189 mg/dL Very High: >=190 mg/dL Cholesterol, Non-HDL, Calculated 115 mg/dL 03/06/2021 7:41 AM CARTON PACKAGING MACHINE OPERATOR CNFL Comment: ----REFERENCE VALUE---- Desirable: <130 Above Desirable: 130-159 Borderline high: 160-189 High: 190-219 Very high: > or =220 Blood (Blood, Venous) 03/06/2021 7:19 AM CARTON PACKAGING MACHINE OPERATOR 03/06/2021 7:21 AM CARTON PACKAGING MACHINE OPERATOR Jennifer Carranza C.N.P. LAB BLOOD ADD- ON [facility] [address] [place] [address], [facility] CNFL [facility] [place] [address] * Comprehensive Metabolic Panel (03/06/2021 7:19 AM CARTON PACKAGING MACHINE OPERATOR) Potassium, P 4.3 3.6 - 5.2 mmol/L 03/06/2021 7:41 AM CARTON PACKAGING MACHINE OPERATOR CNFL Sodium, P 135 135 - 145 mmol/L 03/06/2021 7:41 AM CARTON PACKAGING MACHINE OPERATOR CNFL Chloride, P 101 98 - 107 mmol/L 03/06/2021 7:41 AM CARTON PACKAGING MACHINE OPERATOR CNFL Bicarbonate, P 24 22 - 29 mmol/L 03/06/2021 7:41 AM CARTON PACKAGING MACHINE OPERATOR CNFL Anion Gap, P 10 7 - 15 03/06/2021 7:41 AM CARTON PACKAGING MACHINE OPERATOR CNFL BUN (Blood Urea Nitrogen), P 12 6 - 21 mg/dL 03/06/2021 7:41 AM CARTON PACKAGING MACHINE OPERATOR CNFL Creatinine 0.74 0.59 - 1.04 mg/dL 03/06/2021 7:41 AM CARTON PACKAGING MACHINE OPERATOR CNFL eGFR-Black/ >90 >=60 mL/min/BS A 03/06/2021 7:41 AM CARTON PACKAGING MACHINE OPERATOR CNFL Comment: ----ADDITIONAL INFORMATION---- Estimated GFR calculated using the 2009 CKD_EPI creatinine equation. eGFR Non-Black/ 85 >=60 mL/min/BS A 03/06/2021 7:41 AM CARTON PACKAGING MACHINE OPERATOR CNFL Comment: ----ADDITIONAL INFORMATION---- Estimated GFR calculated using the 2009 CKD_EPI creatinine equation. Calcium, Total, P 9.2 8.8 - 10.2 mg/dL 03/06/2021 7:41 AM CARTON PACKAGING MACHINE OPERATOR CNFL Glucose, P 100 70 - 140 mg/dL 03/06/2021 7:41 AM CARTON PACKAGING MACHINE OPERATOR CNFL Protein, Total, P 7.0 6.3 - 7.9 g/dL 03/06/2021 7:41 AM CARTON PACKAGING MACHINE OPERATOR CNFL Albumin, P 4.2 3.5 - 5.0 g/dL 03/06/2021 7:41 AM CARTON PACKAGING MACHINE OPERATOR CNFL Aspartate Aminotransferase (AST), P 27 8 - 43 U/L 03/06/2021 7:41 AM CARTON PACKAGING MACHINE OPERATOR CNFL Alkaline Phosphatase, P 60 35 - 104 U/L 03/06/2021 7:41 AM CARTON PACKAGING MACHINE OPERATOR CNFL Alanine Aminotransferase (ALT), P 24 7 - 45 U/L 03/06/2021 7:41 AM CARTON PACKAGING MACHINE OPERATOR CNFL Bilirubin, Total, P 0.6 <=1.2 mg/dL 03/06/2021 7:41 AM CARTON PACKAGING MACHINE OPERATOR CNFL Blood (Blood, Venous) 03/06/2021 7:19 AM CARTON PACKAGING MACHINE OPERATOR 03/06/2021 7:21 AM CARTON PACKAGING MACHINE OPERATOR Jennifer Carranza C.N.P. LAB BLOOD ADD- ON Performing Organization Address [facility]/State/ZIP Co de Phone Number [facility] [address] [place] [address], [facility] [place] [address] * Pathology ThinPrep Screen HPV Reflex (05/02/2014 9:00 AM CARTON PACKAGING MACHINE OPERATOR) Interpretation [id number] POWERCHART [facility] See Comment POWERCHART Comment: A. ??ThinPrep Pap [...] 58, 59, 66, and 68. HXThPrep Scrn Cyto-[place] See Comment POWERCHART Comment: Report electronically signed by Pritesh Lewis, SCT(ASCP) 05/10/2014 07:55 Interpreted by: Marium Rivas CT (ASCP) HX Spec Desc-[place] See Comment POWERCHART Comment: A. ??ThinPrep Pap Test Screen (Cervical/Endocervical HPV Reflex): Received cloudy specimen in ThinPrep vial. Test Performed by: [place] [address] Metal Hanger: Tushar Hernandez M.D. Cervix/Endocervix 05/02/2014 9:00 AM CARTON PACKAGING MACHINE OPERATOR Kimberlyn Alvarez APRN C.N.P., D.N.P. LAB PAP PATHDX ORDERABLES POWERCHART from Last 3 Months or Most Recently Relevant to Health Maintenance Care Teams Assistant Facility Manager Relationship Specialty Start Date End Date Elsewhere, Pcp PCP - General Family Medicine 06/16/20
--- OUTSIDE RECORDS SUMMARY | 2023-09-15 16:12 | XMS_ITS ---
Author Organization [facility] Address [address] [place] [address] Care Team Providers Care Sewage Disposal Worker Name Role Phone Unavailable Unavailable Unavailable Surgery Details Not on file Complications Check Surgery Details section. Procedure Estimated Blood Loss Check Surgery Details section. Procedure Findings Check Surgery Details section. Procedure Specimens Taken Check Surgery Details section.
--- OUTSIDE RECORDS SUMMARY | 2023-09-15 16:12 | XMS_ITS | Clinical Summary ---
Author Organization [facility] Address [address] [place] [address] Care Team Providers Care Glass Cleaner Name Role Phone Elsewhere, Pcp Primary Care Provider Unavailabl e Source Comments Patient records contain information from all sites at [facility]. For routine questions regarding patient records, call [phone] during business hours, M-F 8:00 AM - 5:00 PM Central Time. Record requests for emergency care only can be directed to [phone] at any time.[facility] Allergies Active Allergy Reactions Criticality Noted Date [...] Overview: Added automatically from request for surgery [id number] Pain Knee Left 11/16/2019 Overview: Added automatically from request for surgery [id number] Anterior Cruciate Ligament Reconstruction Status Post 05/29/2017 Hypertension NOS 05/26/2017 Hypothyroidism Post Radio Iodine 05/26/2017 Overview: Grave's disease s/p MANZO resulting in hypothyroidism 02/2022 Stopped cytomel, she reported low TSH in PCP at [place]. Lost 30 lbs in past year, intentionally. Follow up TSH in Mar. She realizes further dose adjustment may be necessary. Weight based replacement is about 100 mcg. She is taking it consistently and correctly. Hyperlipidemia 05/26/2017 Pain Knee Right 05/22/2017 Overview: Added automatically from request for surgery [id number] Depression/Beckie/Bipolar NOS 04/18/2015 Overview: Disorder Mood NOS Dysthymia 06/11/2011 Overview: Dysthymic Disorder Limitation Of Motion Finger Right Follow Up Examination Postoperative Visit Vertigo Benign Paroxysmal Positional Left Vertigo Benign Paroxysmal Positional Bilateral Encounters Date Type Department Care Team Description 06/24/2023 [facility] [address] [phone] Jennifer Carranza C.NPhilP. Palpitations (Primary Dx) from Last 3 Months Immunizations Name Administration [...] - MODE RNA (12 YEARS AND OLDER) [id number] 04/10/2023 SARS-COV-2 (COVID-19) - PFIZ ER (Discontinued)(12 [...] week 07/30/2021 How often do you attend [facility] or gnosticism services? Patient declined 07/30/2021 Do you belong to any clubs o r organizations such as sabianism groups, unions, fraternal [...] and heating? Not hard at all 07/30/2021 [facility] [place] of Occupat ional Health - Occupational Stress [...] or slept in a long-term (including now)? No 07/30/2021 Nutrition Answer Date [...] Sex Assigned at Female 05/19/2017 11:19 AM SORTING COWS WORKER Gender Identity Female 05/19/2017 11:19 AM SORTING COWS WORKER Sexual Orientation Straight 05/19/2017 11 :19 AM SORTING COWS WORKER Last Filed Vital Signs Vital Sign Reading Time Taken Comments Blood Pressure 136/87 03/04/2022 7:47 AM SORTING COWS WORKER Pulse 79 03/04/2022 7:47 AM SORTING COWS WORKER Temperature 36.9 ??C (98.4 ??F) 03/12/2018 1 1:45 AM SORTING COWS WORKER Respiratory Rate 19 03/12/2018 11:3 0 AM SORTING COWS WORKER Oxygen Saturation 95% 03/12/2018 11: 30 AM SORTING COWS WORKER Inhaled Oxygen Concentration - - Weight 64.7 kg (142 lb 10.2 oz) 03/04/2022 7:47 AM SORTING COWS WORKER Height 158.9 cm (5' 2.56) 03/04/2022 7:47 AM CS T Body Mass Index 25.62 03/04/2022 7:47 AM SORTING COWS WORKER Plan of Treatment Upcoming Encounters Date Type Department Care Team (Latest Contact Info) Description 10/16/2023 9:00 AM CDT Appointment Department of Radiology in [address] [phone] Jennifer Carranza, C.N.P. [address] [place] [phone] Discharge Disposition: Home or Self Care 11/19/2023 1:00 PM CDT Comprehensive Visit Department of Cardiovascular Diseases in [address] [phone] Teja Solorzano, JOSE DANIEL, C.N.P. [address] [place] [phone] Discharge Disposition: Home or Self Care 02/23/2024 8:45 AM SORTING COWS WORKER Office Visit Department of Dermatology in [address] [phone] Lacy Dykes M.D. [address] [place] [phone] Health Maintenance Due Date Last Done Comments [...] 03/06/2021, 01/06/2020, Additional history exists COVID-19 Vaccine (2 4 season) 2023 04/10/2023, 02/02/2022, 08/15/2021, Additional history exists Thyroid Stimulating Hormone (TSH) test for thyroid function 09/07/2023 09/06/2022, 05/28/2022, 03/22/2022, Additional history exists Mammogram 02/26/2024 02/25/2023, 02/06, 02/08/2022, Additional history exists Fasting Glucose for Diabetes Screening 03/06/2024 03/06/2021, 08/18/2015, 05/02/2014, Additional history exists Lipid (Cholesterol) Screening 03/06/2026, 01/06/2020, 10/02/2018, Additional history exists Cervical Cancer Screening Discontinued 2019, 05/02/2014, 07/11/2011, Additional history exists Zoster Vaccines Completed 08/02/2020, 12/2019, 05/02/2014 Pneumococcal vaccine (65+ years) Completed 01/16/20, 01/25/2021 Influenza Vaccine Completed 02/06/2023, , 01/25/2021, Additional history exists RSV vaccine - (32-3 6 weeks) or 60+ years Completed 03/10/2023 Medical Devices Implanted Type Area Family Service Aide Device Identifier Shelf Expiration Date Model / Serial / Lot [employer] Rigidfix Btb 2.7 - [id number] Implanted:Qty: 1 on 05/28/2017 at [facility] Hardware e.g. pins/screws /rods Right: Knee Depuy Mitek 07/06/2019 [id number] / / [id number] Anch Sut Crk Scrw Ft 2.2 - [id number] Implanted:Qty: 1 on 03/12/2018 by Anibal Larkin M.D. at [facility] Hardware e.g. pins/screws /rods Arthrex [id number] AR-1318FT / / Anch Sut Crk Scrw Ft 2.2 - [id number] Implanted:Qty: 1 on 03/12/2018 by Anibal Larkin M.D. at [facility] Hardware e.g. pins/screws /rods Ar[employer]rex [id number] AR-1318FT / / Patellar Tendon Implanted:Qty: 1 on 05/28/2017 at [facility] Knee Implant Right: Knee [employer] [id number] 11/22/2020 [id number] / [id number] / [id number] Interference Screw Implanted:Qty: 1 on 05/28/2017 at [facility] Knee Implant Right: Knee Ribeiro [employer] Nephew [id number] 07/19/2019 [id number] / / [id number] Procedures Procedure Name Priority Date/Time Associated Diagnosis Comments BI BREAST SCREENING BILATERAL WITH TOMOSYNTHESIS RAD - Routine (most inpatients and all outpatients) 02/25/2023 8:12 AM SORTING COWS WORKER Screening Mammogram Breast Cancer THYROID-STIMULATING HORMONE-SENSITIVE (S-TSH) Routine 09/06/2022 8:22 AM CDT Hypothyroidism Post Radio Iodine CREATININE WITH EGFR, S/P Routine 06/17/2022 8:23 AM CDT Osteoporosis Post Menopausal Without Pathological Fracture LIPID PANEL, S Routine 03/06/2021 7:19 AM SORTING COWS WORKER Graves' Disease Iron Deficiency Anemia Screening Exam Hyperlipidemia Incontinence Urinary COMPREHENSIVE METABOLIC PANEL, S/P Routine 03/06/2021 7:19 AM SORTING COWS WORKER Graves' Disease Iron Deficiency Anemia Screening Exam Hyperlipidemia Incontinence Urinary THINPREP SCREEN HPV REFLEX Routine 05/02/2014 9:00 AM SORTING COWS WORKER from Last 3 Months or Most Recently Relevant to Health Maintenance Results * BI Breast Screening Bilateral with Tomosynthesis (02/25/2023 8:12 AM SORTING COWS WORKER) Anatomical Region Laterality Modality Breast, Breast Imaging RST L OS, Breast Imaging ARZ LOS, Breast Imaging FLA LOS Bilateral Mammography 02/25/2023 11:0 7 AM SORTING COWS WORKER Impressions 02/25/2023 11:11 AM SORTING COWS WORKER Negative. RECOMMENDATION: ??Annual Screening Mammogram ASSESSMENT: ??BI-RADS: 1: Negative. Narrative 02/25/2023 11:11 AM SORTING COWS WORKER EXAM: ??BI BREAST SCREENING BILATERAL WITH TOMOSYNTHESIS [...] Screening Mammogram ASSESSMENT: BI-RADS: 1: Negative. Sunny FARIAS BI PROCEDUR ES * S-TSH (Thyroid-Stimulating Hormone - Sensitive) (09/06/2022 8:22 AM CDT) TSH, Sensitive 0.6 0.3 - 4.2 mIU/L 09/06/2022 11:56 AM CDT CNFL Blood (Blood, Venous) 09/06/2022 8:22 AM CDT 09/06/2022 8:22 AM CDT Azam Rasheed M.D. LAB BLOOD ADD-ON Performing Organization Address [facility] Co de Phone Number FORMERLY NAMED [facility] [address] [place] [address], [facility] CNFL [place] [address] * Creatinine with Estimated GFR (06/17/2022 8:23 AM CDT) Creatinine 0.74 0.59 - 1.04 mg/dL 06/17/2022 9:01 AM CDT CNFL Estimated GFR (eGFR) 89 >=60 mL/min/BSA 06/17/2022 9:01 AM CDT CNFL Comment: Estimated GFR calculated using the 2020 CKD_EPI creatinine equation. Blood (Blood, Venous) 06/17/2022 8:23 AM CDT 06/17/2022 8:25 AM CDT Urmila Xiao M.D., Ph.D. LAB BLOOD ADD-O N Performing Organization Address [facility] Co de Phone Number FORMERLY NAMED [facility] [address] [place] [address], [facility] CN[facility] [place] [address] * Lipid Panel (03/06/2021 7:19 AM SORTING COWS WORKER) Cholesterol, Total 197 mg/dL 2020 7:41 AM SORTING COWS WORKER CNFL Comment: ----REFERENCE VALUE---- Desirable: < 200 Borderline high: 200 - 239 High: > or = 240 Triglycerides 77 mg/dL 03/06/2021 7:41 AM SORTING COWS WORKER CNFL Comment: ----REFERENCE VALUE---- Normal: <150 Borderline high: 150-199 High: 200-499 Very high: > or =500 Cholesterol, HDL 82 >=50 mg/dL 03/06/20 7:41 AM SORTING COWS WORKER CNFL Calculated LDL 100 mg/dL 03/06/2021 7:41 AM SORTING COWS WORKER CNFL Comment: ----REFERENCE VALUE---- Desirable: <100 mg/dL Above Desirable: 100-129 mg/dL Borderline High: 130-159 mg/dL High: 160-189 mg/dL Very High: >=190 mg/dL Cholesterol, Non-HDL, Calculated 115 mg/dL 03/06/2021 7:41 AM SORTING COWS WORKER CNFL Comment: ----REFERENCE VALUE---- Desirable: <130 Above Desirable: 130-159 Borderline high: 160-189 High: 190-219 Very high: > or =220 Blood (Blood, Venous) 03/06/2021 7:19 AM SORTING COWS WORKER 03/06/2021 7:21 AM SORTING COWS WORKER Jennifer Carranza C.N.P. LAB BLOOD ADD- ON [facility] [address] [place] [address], [facility] [place] [address] * Comprehensive Metabolic Panel (03/06/2021 7:19 AM SORTING COWS WORKER) Potassium, P 4.3 3.6 - 5.2 mmol/L 03/06/2021 7:41 AM SORTING COWS WORKER CNFL Sodium, P 135 135 - 145 mmol/L 03/06/2021 7:41 AM SORTING COWS WORKER CNFL Chloride, P 101 98 - 107 mmol/L 03/06/2021 7:41 AM SORTING COWS WORKER CNFL Bicarbonate, P 24 22 - 29 mmol/L 03/06/2021 7:41 AM SORTING COWS WORKER CNFL Anion Gap, P 10 7 - 15 03/06/2021 7:41 AM SORTING COWS WORKER CNFL BUN (Blood Urea Nitrogen), P 12 6 - 21 mg/dL 03/06/2021 7:41 AM SORTING COWS WORKER CNFL Creatinine 0.74 0.59 - 1.04 mg/dL 03/06/2021 7:41 AM SORTING COWS WORKER CNFL eGFR-Black/ >90 >=60 mL/min/BS A 03/06/2021 7:41 AM SORTING COWS WORKER CNFL Comment: ----ADDITIONAL INFORMATION---- Estimated GFR calculated using the 2009 CKD_EPI creatinine equation. eGFR Non-Black/ 85 >=60 mL/min/BS A 03/06/2021 7:41 AM SORTING COWS WORKER CNFL Comment: ----ADDITIONAL INFORMATION---- Estimated GFR calculated using the 2009 CKD_EPI creatinine equation. Calcium, Total, P 9.2 8.8 - 10.2 mg/dL 03/06/2021 7:41 AM SORTING COWS WORKER CNFL Glucose, P 100 70 - 140 mg/dL 03/06/2021 7:41 AM SORTING COWS WORKER CNFL Protein, Total, P 7.0 6.3 - 7.9 g/dL 03/06/2021 7:41 AM SORTING COWS WORKER CNFL Albumin, P 4.2 3.5 - 5.0 g/dL 03/06/2021 7:41 AM SORTING COWS WORKER CNFL Aspartate Aminotransferase (AST), P 27 8 - 43 U/L 03/06/2021 7:41 AM SORTING COWS WORKER CNFL Alkaline Phosphatase, P 60 35 - 104 U/L 03/06/2021 7:41 AM SORTING COWS WORKER CNFL Alanine Aminotransferase (ALT), P 24 7 - 45 U/L 03/06/2021 7:41 AM SORTING COWS WORKER CNFL Bilirubin, Total, P 0.6 <=1.2 mg/dL 03/06/2021 7:41 AM SORTING COWS WORKER CNFL Blood (Blood, Venous) 03/06/2021 7:19 AM SORTING COWS WORKER 03/06/2021 7:21 AM SORTING COWS WORKER Jennifer Carranza C.N.P. LAB BLOOD ADD- ON [facility] [address] [place] [address], [facility] in [address] [address] * Pathology ThinPrep Screen HPV Reflex (05/02/2014 9:00 AM SORTING COWS WORKER) Interpretation [id number] POWERCHART HXThPrep Scrn [facility] See Comment POWERCHART Comment: A. ??ThinPrep Pap [...] 58, 59, 66, and 68. HXThPrep Scrn Cyto-[place] See Comment POWERCHART Comment: Report electronically signed by Pritesh Lewis, SCT(ASCP) 05/10/2014 07:55 Interpreted by: MILDRED Rowe (ASCP) Spec [facility] See Comment POWERCHART Comment: A. ??ThinPrep Pap Test Screen (Cervical/Endocervical HPV Reflex): Received cloudy specimen in ThinPrep vial. Test Performed by: [address] [address] Earring Maker: Tuhsar Hernandez M.D. Cervix/Endocervix 05/02/2014 9:00 AM SORTING COWS WORKER Kp Contreras APRN.N.PPhil, D.N.P. LAB PAP PATHDX ORDERABLES POWERCHART from Last 3 Months or Most Recently Relevant to Health Maintenance Care Teams Glass Cleaner Relationship Specialty Start Date End Date Elsewhere, Pcp PCP - General Family Medicine 06/16/20
--- OUTSIDE RECORDS SUMMARY | 2023-09-15 16:12 | XMS_ITS | Encounter Summary ---
Author Organization [facility] Address [address] [place] [address] Care Team Providers Care First Aid Teacher Name Role Phone Elsewhere, Pcp Primary Care Provider Unavailabl e Reason for Referral * Outpatient (Routine) - Authorized Specialty Diagnoses / Procedures Referred By Hailey t Referred To Contact Cardiovascular Disease Diagnoses Palpitations Jennifer Carranza, C.N.P. [address] [place] [address] [facility] Region Referral ID Status Reason Start Date Expiration Date V isits Requested Visits Authorized [id number] Authorized 06/24/2023 12/23/2024 1 1 Encounter Details Date Type Department Care Team (Late st Contact Info) Description 06/24/[address] [facility] [address] [place] [address] Jennifer Carranza, C.N.P. [address] [place] [phone] Palpitations (Primary Dx) Social History Tobacco Use [...] often do you attend [facility] or evangelical services? Patient declined 07/30/2021 Do you belong to any clubs o r organizations such as hindu groups, unions, fraternal [...] and heating? Not hard at all 07/30/2021 [facility] [place] of Occupat ional Health - Occupational Stress [...] or slept in a snf (including now)? No 07/30/2021 Nutrition Answer Date [...] Sex Assigned at Female 05/19/2017 11:19 AM SUPERVISOR BEATER ROOM Gender Identity Female 05/19/2017 11:19 AM SUPERVISOR BEATER ROOM Sexual Orientation Straight 05/19/2017 11 :19 AM SUPERVISOR BEATER ROOM documented as of this encounter Plan of Treatment Upcoming Encounters Date Type Department Care Team (Latest Contact Info) Description 10/16/2023 9:00 AM CDT Appointment Department of Radiology in [address] [phone] Jennifer Carranza, C.N.P. [address] [place] [phone] Discharge Disposition: Home or Self Care 11/19/2023 1:00 PM CDT Comprehensive Visit Department of Cardiovascular Diseases in [address] [phone] Teja Solorzano APRN, C.N.P. [address] [place] [phone] Discharge Disposition: Home or Self Care 02/23/2024 8:45 AM SUPERVISOR BEATER ROOM Office Visit Department of Dermatology in [address] [phone] Lacy Dykes M.D. [address] [place] [phone] Scheduled Referrals Name Type Priority Associated Diagnoses Order Schedule Cardiovascular Diseases Referral Outpatient Referral Routine Palpitations Expected: 06/24/2023 (Approximate), Expires: 09/23/2024 documented as of this encounter Visit Diagnoses Diagnosis Palpitations- Primary documented in this encounter Additional Health Concerns Assessment Noted Time PHQ-9 Depression Total Score: 2 04/22/19 16 11:24 AM SUPERVISOR BEATER ROOM documented as of this encounter Care Teams First Aid Teacher Relationship Specialty Start Date End Date Elsewhere, Pcp PCP - General Family Medicine 06/16/20 documented as of this encounter
--- OUTSIDE RECORDS SUMMARY | 2023-09-15 16:13 | XMS_ITS | Encounter Summary ---
Author Organization [facility] er Address [address] [place] [address] Care Team Providers Care Safety Glass Installer Name Role Phone Jennifer Carranza METAL PATTERNMAKER APPRENTICE, INFORMATION TECHNOLOGY INTERNSHIP Primary Care Provi tien Reason for Visit * Reason Onset Date Comments Med Refill 01/29/2018 Encounter Details Date Type Department Care Team (Late st Contact Info) Description 01/29/2018 Refill [place] [address] [place] [address] Jennifer Carranza, METAL PATTERNMAKER APPRENTICE, INFORMATION TECHNOLOGY INTERNSHIP [address] [place] [phone] Insomnia, unspecified type Social History Tobacco Use [...] type documented in this encounter Care Teams Safety Glass Installer Relationship Specialty Start Date End Date Jennifer Carranza APRN, INFORMATION TECHNOLOGY INTERNSHIP [address] [place] [address] PCP - General Family Medicine 11/12/21 12/19/22 documented as of this encounter
--- OUTSIDE RECORDS SUMMARY | 2023-09-15 16:13 | XMS_ITS | Encounter Summary ---
Author Organization [facility] er Address [address] [place] [address] Care Team Providers Care Housing Director Name Role Phone Jennifer Carranza APRN, FASHION CONSULTANT SALES Primary Care Provi tien Reason for Visit * Reason Onset Date Comments Med Refill 01/29/2018 Encounter Details Date Type Department Care Team (Late st Contact Info) Description 01/29/2018 Refill [place] [address] [place] [address] Jennifer Carranza, SALES MERCHANDISER, FASHION CONSULTANT SALES [address] [place] [address] Social History Tobacco Use Types Packs/Day Years Used Date Smoking Tobacco: Never Assessed Sex and Gender Information Value Date Recorded Sex Assigned at Not on file Gender Identity Not on file Sexual Orientation Not on file documented as of this encounter Plan of Treatment Not on file documented as of this encounter Visit Diagnoses Not on filedocumented in this encounter Care Teams Housing Director Relationship Specialty Start Date End Date Jennifer Carranza APRN, FASHION CONSULTANT SALES [address] [place] [address] PCP - General Family Medicine 11/12/21 12/19/22 documented as of this encounter
--- OUTSIDE RECORDS SUMMARY | 2023-09-15 16:13 | XMS_ITS | Encounter Summary ---
Author Organization [facility] er Address [address] [place] [address] Care Team Providers Care Senior Director Marketing Name Role Phone Jennifer Carranza APRN, SPANISH TUTOR Primary Care Provi tien Reason for Visit * Reason Comments Med Refill Encounter Details Date Type Department Care Team (Late st Contact Info) Description 09/30/2018 Refill [place] [address] [place] [address] Jennifer Carranza, HEALTH INFORMATION MANAGERS, SPANISH TUTOR [address] [place] [phone] Insomnia, unspecified type Social History Tobacco Use [...] Family Three times a week 09/25/2018 Attends [employer] Services Never 09/25 Active Member of Clubs or Organizations No 09/25/2018 Attends Club or Organization Meetings Never 09/25/2018 Marital Status Living with partner 09/25/2018 Overall Financial Resource Strain (CARDIA) Answe r Date Recorded Difficulty of Paying Living Expenses Not hard at all 09/25/2018 PHQ-2 Answer Date Recorded PHQ-2 Score 0 08/05/2018 [facility] of Occupat ional Health - Occupational [...] documented in this encounter Care Teams Senior Director Marketing Relationship Specialty Start Date End Date Jennifer Carranza, HEALTH INFORMATION MANAGERS, SPANISH TUTOR [address] [place] [address] PCP - General Family Medicine 11/12/21 12/19/22 documented as of this encounter
--- OUTSIDE RECORDS SUMMARY | 2023-09-15 16:13 | XMS_ITS | Encounter Summary ---
Author Organization [facility] er Address [address] [place] [address] Care Team Providers Care Corporate Travel Counselor Name Role Phone Jennifer Carranza DATA SYSTEMS MANAGER, FIBERGLASS AUTOBODY REPAIRER Primary Care Provi tien Reason for Visit * Reason Onset Date Comments Med Refill 08/18/2018 Encounter Details Date Type Department Care Team (Late st Contact Info) Description 08/18/2018 Refill [place] [address] [place] [address] Jennifer Carranza, DATA SYSTEMS MANAGER, FIBERGLASS AUTOBODY REPAIRER [address] [place] [address] Hypothyroidism, unspecified type (Primary Dx) Social History [...] * Telephone Encounter - Jennifer Carranza APRN, PAOLO - 08/18/2018 11:11 AM CDT Please notify [...] due for appt or labs, please advise user support analyst or PSR to assist scheduling documented in this encounter Plan of Treatment Not on file documented as of this encounter Visit Diagnoses Diagnosis Hypothyroidism, unspecified type- Primary documented in this encounter Care Teams Corporate Travel Counselor Relationship Specialty Start Date End Date Jennifer Carranza APRN, PAOLO [address] [place] [address] PCP - General Family Medicine 11/12/21 12/19/22 documented as of this encounter
[2023-09-15] MEDS: HYDROmorphone 0.5 mg/0.5 ml inj IVP (16:57)
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
[2023-09-15] MEDS: lidocaine HCL 2 % JELLY (TOP) STERILE 6 ML UR (17:20)
--- NOTE | 2023-09-15 18:14 | ED.NURSE ---
See nursing note re: belonging disposition.
== END 2023-09-15 18:15 | disposition other institution (70) ==
LOC: ED 16:09
PROVIDERS: Emergency Provider Family Medicine; PCP Nurse Practitioner Family
DX: S22.42XA Multiple fractures of ribs, left side, initial encounter for closed fracture (principal); S42.102A Fracture of unspecified part of scapula, left shoulder, initial encounter for closed fracture; V19.3XXA Pedal cyclist (driver) (passenger) injured in unspecified nontraffic accident, initial encounter
CPT/HCPCS: 70450; 71260; 72125; 73030; 74177; 93005; 94761; 96374; 99284; 99285; 99291; G0390; J1170; Q9967

== ENCOUNTER 2023-09-15 17:54 | Outpatient (CLI) | payer MEDICARE, SELFPAY ==
--- OUTSIDE RECORDS SUMMARY | 2023-09-19 15:31 | XMS_ITS | Clinical Summary ---
Author Organization [facility] Address [address] [place] [phone] Phone Care Team Providers Care Anchor Tacker Name Role Phone Unavailable Primary Care Provider Unavailabl e Source Comments [email or web address] is fully rolled out on [employer]. Last update 09/09/08.[facility] Allergies Active Allergy Reactions Criticality Noted Date Comments Dtap-Ipv Vaccine Other (see comments) 3 Hylan G-F 20 Other (see comments) 06/22/2013 Synvisc - No reaction listed in [facility] Ketorolac Tromethamine Nausea/Vomiting Medium 09/15/19 24 Other Other (see comments) 06/14/2010 No reaction listed in [facility] Pollen Extract Other (see comments) 02/08/2005 No reaction listed in [facility] Wasp Venom Anaphylaxis,Other (see comments) High 04/11/2006 Hornet - No reaction listed in [facility] Medications * Be aware that medications may not be up to date as of this document. Always verify current medications with patient. Medication Sig Dispensed Refills Start Date End Date Status acetaminophen (TYLENOL) 325 mg oral tablet Take 3 tablets (975 mg) by mouth every 8 hours for 20 days. 180 tablet 09/18/2023 10/08/2023 Active cyclobenzaprine (FLEXERIL) 5 mg oral TABS Take 1 tablet (5 mg) by mouth every 8 hours for 10 days. 30 tablet 09/18/2023 09/28/2023 Active GABApentin (NEURONTIN) 300 mg oral capsule Take 1 capsule (300 mg) by mouth every 8 hours for 20 days. 60 capsule 09/18/2023 10/08/2023 Active ibuprofen (MOTRIN;ADVIL) 600 mg oral tabletIndications: Closed fracture of left scapula, unspecified part of scapula, initial encounter Take 1 tablet (600 mg) by mouth 3 times daily with meals for 20 days. 60 tablet 09/18/2023 10/08/2023 Active lidocaine (LIDODERM) 5% externally patch Apply 1 patch to painful area, leave on for 12 hours, then remove. May apply new patch at least 12 hours after removing previous one. 3 patch 09/18/2023 Active senna (SENOKOT) 8.6 mg oral tablet Take 1 tablet (8.6 mg) by mouth twice daily for 10 days. 20 tablet 09/18/2023 09/28/2023 Active azithromycin (ZITHROMAX) 250 mg oral TABS Take 2 tabs by mouth daily for one day - 09/20/23 2 tablet 09/20/2023 09/20/2023 Active cefUROXime (CEFTIN) 500 mg oral TABS Take 1 tablet (500 mg) by mouth twice daily for 3 days. 6 tablet 09/20/2023 09/23/2023 Active oxyCODONE (ROXICODONE) 5 mg oral tablet Take 1 tablet (5 mg) by mouth every 4 to 6 hours as needed for Pain. 40 tablet 09/19/2023 09/26/2023 Active atorvastatin (LIPITOR) 20 mg oral tablet Take 1 tablet (20 mg) by mouth daily. 06/18/2023 Suspended EPINEPHrine (EPIPEN / AUVI-Q) 0.3 mg/0.3 mL injection Inject 0.3 mL (0.3 mg) into a muscle one time as needed for Allergic Reaction(s). 03/07/2023 Suspended estradiol (VAGIFEM) 10 mcg vaginal tablet 1 tablet (10 mcg) by Vaginal route Twice a week. 07/28/2023 Suspended SYNTHROID 125 MCG oral tablet Take 1 tablet (125 mcg) by mouth daily before morning meal. 06/04/2023 Suspended traZODone (DESYREL) 50 mg oral tablet Take 2 tablets (100 mg) by mouth at bedtime as needed. 06/04/2023 Suspended DIOVAN 40 MG oral TABS Take 1 tablet (40 mg) by mouth twice daily. 09/12/2023 Suspended zolpidem (AMBIEN) 10 mg oral TABS Take 1 tablet (10 mg) by mouth at bedtime as needed. 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 Radiology Department [place] [address] [place] [address] Provider, Outside Referral of patient (Primary Dx) 09/15/2023 7:09 PM CDT - Present Hospital Encounter [facility] Surgery/Trauma/Sadie ro [address] [place] [address] Elsa Aguirre MD Stahler, Paul A, MD Richardson, Chad J, MD Fall, initial encounter 09/15/2023 Travel from Last 3 Months Immunizations Name Administration Dates Next Due Tetanus Toxoid, Reduced Diph theroid Toxoid Acellular Pertussis 09/17/2023 Tetanus and Diphtheria Toxoids Adsorbed-Td (TENI VAC) 09/17/2023() Social History Tobacco Use Types Packs/Day Years Used Date Smoking Tobacco: Never Assessed Sex and Gender Information Value Date Recorded Sex Assigned at Not on file Gender Identity Not on file Sexual Orientation Not on file Last Filed Vital Signs Vital Sign Reading Time Taken Comments Blood Pressure 123/67 09/19/2023 11:25 AM CDT Pulse 55 09/19/2023 11:25 AM CDT Temperature 36.4 ??C (97.5 ??F) 09/19/2023 11:25 AM C DT Respiratory Rate 17 09/19/2023 11:25 AM CDT Oxygen Saturation 99% 09/19/2023 11:25 AM CDT Inhaled Oxygen Concentration - - Weight - - Height - - Body Mass Index - - Plan of Treatment Upcoming Encounters Date Type Department Care Team (Late st Contact Info) Description 10/06/2023 10:20 AM CDT [facility] [address] [place] [phone] Vanessa Marie PA-C [address] [address] Scheduled Discharge Disposition: Discharged to home or self care (routine discharge) 10/06/2023 11:30 AM CDT [facility] [address] [place] [phone] Ashkan, Gen Surg Trauma [address] [place] [address] Scheduled Discharge Disposition: Discharged to home or self care (routine discharge) Health Maintenance Due Date Last Done Comments CT Colonography 1955 Colonoscopy 1955 Colorectal Cancer Screening 1955 Dental Oral Exam 1955 Dental Prophylaxis 1955 Dental X-Ray: Bitewings 1955 Depression Management 1955 FIT/Cologuard 1955 Hepatitis C Screening 1955 Sigmoidoscopy 1955 iFOB/FIT 1955 Periodontal Maintenance 08/10/1969 Medicare Annual Wellness 08/10/1973 HEALTH MAINTENANCE PROTOCOL 08/10/1974 PREVENTATIVE VISIT 10/14/2009 10/14/2008, 0 08/21/2007, 04/11/2006, Additional history exists Osteoporosis Screening (Dexa Scan) 08/10/2020 COVID-19 Vaccine ( season) 2023 04/10/2023, 02/02/2022, 08/15/2021, Additional history exists Breast Cancer Screening 02/25/2025 02/25/2023 Lipid Screening 03/06/2026 03/06/2021 TD/TDAP ADULTS 09/16/2033 09/17/2023, 10/05, 11/25/2005, Additional history exists Imm: Pneumonia greater than 65 years Completed 01/15/2022, 01/25/2021 INFLUENZA VACCINE Completed 02/06/2023, , 01/25/2021, Additional history exists RSV Infant Immunoglobulin Aged Out 03/10/2023 No longer eligible based on patient's age to complete this topic HIB Aged Out No longer eligi ble based on patient's age to complete this topic Imm: HepB Aged Out No longer eligi ble based on patient's age to complete this topic Procedures The patient is currently admitted. The information in this section might not be complete until the patient is discharged. Procedure Name Priority Date/Time Associated Diagnosis Comments PANEL BASIC METABOLIC (BMP) Timed 09/19/2023 11:02 AM CDT CBC WITH PLTS/AUTO DIFF Timed 09/19/2023 11:02 AM CDT PC CULTURE,BACTERIAL,DEF INATIVE,AEROBIC;BLOOD Timed 09/18/2023 12:21 PM CDT PC CULTURE,BACTERIAL,DEF INATIVE,AEROBIC;BLOOD Timed 09/18/2023 12:15 PM CDT ANTI XA ASSAY LMW HEPARIN Timed 09/18/2023 12:15 PM CDT ULT VENOUS LOWER EXT BILAT Today 09/18/2023 10:00 AM CDT XR CHEST 2 VIEWS PA + LAT* Timed 09/18/2023 6:13 AM CDT PANEL BASIC METABOLIC (BMP) Timed 09/18/2023 5:42 AM CDT TC LAB BLOOD DRAW BY VENIPUNCTURE Timed 09/18/2023 5:42 AM CDT PANEL BASIC METABOLIC (BMP) Timed 09/17/2023 5:55 AM CDT PC LAB CBC/PLT Timed 09/17/2023 5:55 AM CDT TELEMETRY STRIPS 09/17/2023 12:5 9 AM CDT TELEMETRY STRIPS 09/16/2023 6:28 PM CDT TELEMETRY STRIPS 09/16/2023 2:14 PM CDT PANEL BASIC METABOLIC (BMP) Timed 09/16/2023 8:19 AM CDT PC LAB CBC/PLT Timed 09/16/2023 8:[address] SPINE LUMBAR NO IV CON Routine 09/16/2023 6:[address] ABDOMEN/PELVIS W/IV CON Routine 09/16/2023 6:[address] SPINE THORACIC NO IV CON Routine 09/16/2023 6:45 AM CDT LUNG AIRWAY CLEARANCE EXPANSION PROTOCOL Routine 09/15/2023 11:01 PM CDT XR SHOULDER LT 2/3V AP/GRASH/Y* Routine 09/15/2023 10:[address] OUTSIDE READ CHEST Routine 09/15/2023 8:[address] OUTSIDE READ SPINE CERVICAL/NECK Routine 09/15/2023 8:[address] OUTSIDE READ HEAD/FACIAL BONES Routine 09/15/2023 8:10 PM CDT XR UPPER EXTREMITY OUTSIDE FILMS Routine 09/15/2023 5:22 PM CDT Referral of patient PANEL LIPID Routine 03/06/2021 7:19 AM SAMPLE WORKER from Last 3 Months or Most Recently Relevant to Health Maintenance Results * (ABNORMAL) CBC WITH PLTS/AUTO DIFF (09/19/2023 11:02 AM CDT) WBC 6.49 4.00 - 10.00 k/cmm [facility] RBC 3.81(L) 3.90 - 5.20 m/cmm [facility] Hgb 12.5 11.5 - 15.7 g/dL [facility] Hematocrit 37.2 34.0 - 45.0 % [facility] MCV 97.6 80.0 - 100.0 fL [facility] MCH 32.8(H) 25.0 - 32.0 pg [facility] MCHC 33.6 31.0 - 36.0 g/dL [facility] RDW 13.2 11.5 - 14.5 % [facility] Plt 162 150 - 400 k/cmm [facility] MPV 9.9 6.5 - 12.5 fL [facility] Automated Abs Neutrophil 5.24 1.70 - 6.50 k/cmm [facility] Comment:Preliminary ANC, Fin al Result to Follow Abs Immature Granulocyte 0.02 0.00 - 0.09 k/cmm [facility] Comment:The Immature Granulo cyte Absolute count contains metamyelocytes and myelocytes. Abs Neutrophil 5.24 1.70 - 6.50 k/cmm [facility] Abs Lymphocyte 0.68(L) 0.80 - 4.00 k/cmm [facility] Abs Monocyte 0.39 0.20 - 1.00 k/cmm [facility] Abs Eosinophil 0.14 0.00 - 0.60 k/cmm [facility] Abs Basophil 0.02 0.00 - 0.20 k/cmm [facility] Blood 09/19/2023 11:0 2 AM CDT 09/19/2023 11:13 AM CDT Khadra Hnason PA-C LABORATORY [facility] [address] [address] * PANEL BASIC METABOLIC (BMP) (09/19/2023 11:02 AM CDT) Only the most recent of4 resultswithin the time period is included. CO2 24 22 - 30 mmol/L [facility] Glucose 81 70 - 100 mg/dL [facility] BUN 15 8 - 23 mg/dL [facility] Creatinine 0.80 0.50 - 1.00 mg/dL [facility] Calcium 9.2 8.8 - 10.2 mg/dL [facility] Sodium 138 135 - 148 mmol/L [facility] Potassium 4.2 3.5 - 5.3 mmol/L [facility] Chloride 104 92 - 108 mmol/L [facility] eGFR (2020 CKD-EPI) 80 >=60 ml/min/1.7 3m2 [facility] Comment: The estimated glomerular filtration rate (eGFR) was calculated using the CKD-EPI 2020 creatinine equation, which does not include race as a factor. This equation is validated in individuals 18 years of age and older, and eGFR is normalized to a body surface area of 1.73m^2. AnGap 10 8 - 16 mmol/L [facility] Blood 09/19/2023 11:0 2 AM CDT 09/19/2023 11:13 AM CDT Khadra Hanson PA-C LABORATORY Performing Organization Address City/[facility]/ZIP Co de Phone Number [address] [phone] * ANTI XA ASSAY LMW HEPARIN (09/18/2023 12:15 PM CDT) Anti XA LMW 0.37 IU/mL [facility] Comment: Anti Xa Assay LMW Heparin Therapeutic Ranges: 0.4-1.1 IU/mL for twice daily 1.0-2.0 IU/mL for once daily Blood 09/18/2023 12:1 5 PM CDT 09/18/2023 12:38 PM CDT Anil Galindo MD LABORATORY Performing Organization Address City/[facility]/ZIP Co de Phone Number [address] [phone] * ULT VENOUS LOWER EXTREMITY BILAT (09/18/2023 10:00 AM CDT) Anatomical Region Laterality Modality Upper Leg Ultrasound 09/18/2023 9:57 AM CDT Impressions 09/18/2023 10:41 AM CDT Impression: No evidence of deep venous thrombosis in either lower extremity. I have personally reviewed the image(s) and initial interpretation, and I agree with the findings as documented by the resident/fellow. Reading Radiologist: Arcadio Santillan Reading Resident: Veronica Lauren Narrative 09/18/2023 10:41 AM CDT Indication: new fever, eval for DVT ?? Comparison: None. Technique: ?? 1. ??Pressley-scale imaging of the common femoral, femoral, profunda femoral origin, great saphenous and ??popliteal veins in both lower extremities including compressibility 2. ??Color Doppler of the above mentioned deep veins 3. ??Spectral waveform analysis of each of these veins Findings: The right common femoral vein, femoral vein, popliteal vein, profunda femoral origin, ??and great saphenous vein are fully compressible. They demonstrate normal Doppler flow, normal augmentation and normal color-flow. No thrombus is identified within them on grayscale imaging. The left common femoral vein, ??femoral ??vein, popliteal vein and great saphenous vein, profunda femoral origin are fully compressible. They demonstrate normal Doppler flow, normal augmentation and normal color-flow. No thrombus is identified within them on grayscale imaging. Procedure Note Arcadio Santillan [facility] - 09/18/2023 Indication: new fever, eval for DVT Comparison: None. Technique: 1. Pressley-scale imaging of the common femoral, femoral, profunda femoralorigin, great saphenous and popliteal veins in both lower extremitiesincluding compressibility 2. Color Doppler of the above mentioned deep veins 3. Spectral waveform analysis of each of these veins Findings: The right common femoral vein, femoral vein, popliteal vein, profundafemoral origin, and great saphenous vein are fully compressible. Theydemonstrate normal Doppler flow, normal augmentation and normalcolor-flow. No thrombus is identified within them on grayscale imaging. The left common femoral vein, femoral vein, popliteal vein and greatsaphenous vein, profunda femoral origin are fully compressible. Theydemonstrate normal Doppler flow, normal augmentation and normalcolor-flow. No thrombus is identified within them on grayscale imaging. IMPRESSION Impression: No evidence of deep venous thrombosis in either lower extremity. I have personally reviewed the image(s) and initial interpretation, and Iagree with the findings as documented by the resident/fellow. Reading Radiologist: Arcadio Santillan Reading Resident: Veronica Lauren Khadra A Koskiniemi PA-C RAD ULT * XR CHEST 2 VIEWS PA + LAT* (09/18/2023 6:13 AM CDT) Anatomical Region Laterality Modality Chest Computed Radiogr aphy 09/18/2023 6:25 AM CDT Impressions 09/18/2023 7:40 AM CDT Impression: 1. New patchy opacities throughout the right mid and lower lung bingham. Differential includes infection versus developing pulmonary contusion related to recent trauma. 2. New small left pleural effusion. 3. Multiple left-sided rib fractures. No appreciable pneumothorax. I have personally reviewed the image(s) and initial interpretation, and I agree with the findings as documented by the resident/fellow. Reading Radiologist: Rey Aaron Reading Resident: Rowan Guerrero 09/18/2023 7:40 AM CDT Technique: XR CHEST 2 VIEWS PA + LAT* Indication: Evaluate for pneumonia ?? Comparison: CT chest 09/15/2023 Findings: PA and lateral views of the chest were obtained. Normal cardiomediastinal silhouette. Blunting of the left costophrenic angle with small pleural effusion. Patchy opacities in the right mid and lower lung bingham, new compared to CT from 09/15/2023. No pneumothorax. Multiple mildly displaced left rib fracture as seen on CT from 09/15/2023. Procedure Note Rey Aaron, - 09/18/2023 Technique: XR CHEST 2 VIEWS PA + LAT* Indication: Evaluate for pneumonia Comparison: CT chest 09/15/2023 Findings: PA and lateral views of the chest were obtained. Normalcardiomediastinal silhouette. Blunting of the left costophrenic angle withsmall pleural effusion. Patchy opacities in the right mid and lower lungfields, new compared to CT from 09/15/2023. No pneumothorax. Multiplemildly displaced left rib fracture as seen on CT from 09/15/2023. IMPRESSION Impression: 1. New patchy opacities throughout the right mid and lower lung bingham.Differential includes infection versus developing pulmonary contusionrelated to recent trauma. 2. New small left pleural effusion. 3. Multiple left-sided rib fractures. No appreciable pneumothorax. I have personally reviewed the image(s) and initial interpretation, and Iagree with the findings as documented by the resident/fellow. Reading Radiologist: Rey Aaron Reading Resident: Rowan Guerrero Anil Galindo MD RAD XRAY * (ABNORMAL) CBC WITH PLATELET (09/18/2023 5:42 AM CDT) Only the most recent of3 resultswithin the time period is included. WBC 7.46 4.00 - 10.00 k/cmm [facility] RBC 3.99 3.90 - 5.20 m/cmm [facility] Hgb 13.2 11.5 - 15.7 g/dL [facility] Hematocrit 39.1 34.0 - 45.0 % [facility] MCV 98.0 80.0 - 100.0 fL [facility] MCH 33.1(H) 25.0 - 32.0 pg [facility] MCHC 33.8 31.0 - 36.0 g/dL [facility] RDW 12.7 11.5 - 14.5 % [facility] Plt 163 150 - 400 k/cmm [facility] MPV 9.5 6.5 - 12.5 fL [facility] Blood 09/18/2023 5:42 AM CDT 09/18/2023 5:46 AM CDT Anil Galindo MD LABORATORY [facility] [address] [address] * TELEMETRY STRIPS (09/17/2023 12:59 AM CDT) Only the most recent of3 resultswithin the time period is included. Narrative 09/17/2023 12:59 AM CDT Ordered by an unspecified provider. Provider Unknown RAD ECHO * CT SPINE LUMBAR NO IV CON (09/16/2023 6:47 AM CDT) Anatomical Region Laterality Modality Lumbar Spine Computed Tomogra phy 09/16/2023 7:46 AM CDT Impressions 09/16/2023 8:00 AM CDT Impression: No acute fracture or dislocation of the lumbar spine. Multilevel spondylosis, as described. Reading Radiologist: Sg Aly 09/16/2023 8:00 AM CDT Exam: Lumbar Spine CT Reconstructions, 09/16/2023 Indication: ??Back trauma, no prior imaging (Age >= 16y). Comparison: ??None. Technique: Images of the lumbar spine with axial, sagittal and coronal reconstructions were obtained from a CT examination of the abdomen and pelvis. Images were reviewed in a bone window. This is not additional radiation; these images are reconstructed from the abdomen/pelvis CT. Findings: Please refer to the abdomen/pelvis CT report for the findings on those examinations. Lumbar spine: There are 5 lumbar-type vertebral bodies. No acute fracture or dislocation. Anterior spondylolisthesis of L4 over L5 and of L5 over S1, likely degenerative. Multilevel disc space narrowing and scattered endplate spurring. Multilevel degenerative changes of the facet joints, greatest at L4-5 and L5-S1. 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 The findings on a level by level basis are as follows: T12-L1: No spinal canal or neural foraminal narrowing. L1-L2: ??Borderline mild spinal canal narrowing. No convincing neural foraminal narrowing. L2-3: ??Mild spinal canal narrowing. No convincing neural foraminal narrowing. ?? L3-4: ??At least mild spinal canal narrowing. Mild bilateral neural foraminal narrowing, greater on the left. L4-5: Mild spinal canal narrowing. Mild to moderate bilateral neural foraminal narrowing. Narrowing of the bilateral lateral recess. ?? L5-S1: Xcpglumv-ha-fqzwez bilateral neural foraminal narrowing and kfbdzdwm-gg-bvlrrg spinal canal narrowing, which may be in part developmental. Procedure Note Sg Aly, DO - 09/16/2023 Exam: Lumbar Spine CT Reconstructions, 09/16/2023 Indication: Back trauma, no prior imaging (Age >= 16y). Comparison: None. Technique: Images of the lumbar spine with axial, sagittal and coronalreconstructions were obtained from a CT examination of the abdomen andpelvis. Images were reviewed in a bone window. This is not additionalradiation; these images are reconstructed from the abdomen/pelvis CT. Findings: Please refer to the abdomen/pelvis CT report for the findings on thoseexaminations. Lumbar spine: There are 5 lumbar-type vertebral bodies. No acute fracture ordislocation. Anterior spondylolisthesis of L4 over L5 and of L5 over S1,likely degenerative. Multilevel disc space narrowing and scatteredendplate spurring. Multilevel degenerative changes of the facet joints,greatest at L4-5 and L5-S1. Congenital narrowing of the spinal canal atthe levels of L5 and S1. The findings on a level by level basis are as follows: T12-L1: No spinal canal or neural foraminal narrowing. L1-L2: Borderline mild spinal canal narrowing. No convincing neuralforaminal narrowing. L2-3: Mild spinal canal narrowing. No convincing neural foraminalnarrowing. L3-4: At least mild spinal canal narrowing. Mild bilateral neuralforaminal narrowing, greater on the left. L4-5: Mild spinal canal narrowing. Mild to moderate bilateral neuralforaminal narrowing. Narrowing of the bilateral lateral recess. L5-S1: Zgnbglcf-wp-psbvul bilateral neural foraminal narrowing ijnpbgjdbqc-qu-ialiya spinal canal narrowing, which may be in partdevelopmental. IMPRESSION Impression: No acute fracture or dislocation of the lumbar spine. Multilevel spondylosis, as described. Reading Radiologist: Sg Aly Anil Galindo MD RAD CT NEURO * CT ABDOMEN/PELVIS W/IV CON (09/16/2023 6:46 AM CDT) Anatomical Region Laterality Modality Abdomen, Pelvis Computed Tomogra phy 09/16/2023 7:00 AM CDT Impressions 09/16/2023 7:19 AM CDT Impression: 1. No acute traumatic abnormality within the abdomen or pelvis. 2. Ill-defined hypodensity within the pancreatic body. While this may represent fatty deposition, cannot exclude pancreatic lesion. Recommend further evaluation with nonemergent pancreas MRI. I have personally reviewed the image(s) and initial interpretation, and I agree with the findings as documented by the resident/fellow. Reading Radiologist: Azam Atkinson Reading Resident: Rowan Guerrero 09/16/2023 7:19 AM CDT Comparison: CT chest 09/15/2023 Indication: Abdominal trauma, blunt Technique: Volumetric helical acquisition of CT images from the lung bases through the symphysis pubis after the administration of intravenous contrast. DOSE: ?Total DLP = 340 mGy.cm. ?? Findings: Lung bases: Cardiac size is normal. Trace left pleural effusion. Bibasilar atelectasis. Abdomen/Pelvis: ?? Liver: Within normal limits. Gallbladder and biliary tree: No calcified gallstones. Layering hyperdense material within the gallbladder. No intra- or extrahepatic biliary ductal dilation. Pancreas: Ill-defined hypodensity within the pancreatic body (series 202, image 40) focal fatty infiltration of the pancreatic head. No focal ductal dilation. Spleen: Within normal limits. Adrenals: Subcentimeter hyperdense right adrenal nodule Kidneys, ureters and bladder: Symmetric enhancement of the kidneys. No renal calculi or hydronephrosis. Urinary bladder is within normal limits. Reproductive organs: Reproductive organs are within normal limits.. Stomach and bowel: Stomach is normal. No abnormally dilated loops of small or large bowel. Appendix is normal. Lymph nodes: No enlarged lymph nodes. Peritoneum: No free fluid or free air in the abdomen or pelvis. Vessels: Aorta and major branches are patent without aneurysm or significant stenosis. Portal vein and superior mesenteric vein are patent. Bones/Soft tissues: Skeletal structures: No acute or suspicious osseous abnormality. Degenerative changes of the pubic symphysis, sacroiliac joints, and spine. Please refer to separately dictated CT lumbar and thoracic spine reconstructions from same day for further discussion of the spine. Soft tissue: No soft tissue lesion visualized Procedure Note Azam Atkinson DO - 09/16/2023 Comparison: CT chest 09/15/2023 Indication: Abdominal trauma, blunt Technique: Volumetric helical acquisition of CT images from the lung basesthrough the symphysis pubis after the administration of intravenouscontrast. DOSE: Total DLP = 340 mGy.cm. Findings: Lung bases: Cardiac size is normal. Trace left pleural effusion. Bibasilaratelectasis. Abdomen/Pelvis: Liver: Within normal limits. Gallbladder and biliary tree: No calcified gallstones. Layering hyperdensematerial within the gallbladder. No intra- or extrahepatic biliary ductaldilation. Pancreas: Ill-defined hypodensity within the pancreatic body (series 202,image 40) focal fatty infiltration of the pancreatic head. No focal ductaldilation. Spleen: Within normal limits. Adrenals: Subcentimeter hyperdense right adrenal nodule Kidneys, ureters and bladder: Symmetric enhancement of the kidneys. Norenal calculi or hydronephrosis. Urinary bladder is within normallimits. Reproductive organs: Reproductive organs are within normal limits.. Stomach and bowel: Stomach is normal. No abnormally dilated loops of smallor large bowel. Appendix is normal. Lymph nodes: No enlarged lymph nodes. Peritoneum: No free fluid or free air in the abdomen or pelvis. Vessels: Aorta and major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
--- OUTSIDE RECORDS SUMMARY | 2023-09-19 15:32 | XMS_ITS | Clinical Summary ---
Author Organization [facility] Address [address] [place] [address] Care Team Providers Care Calciner Operator Name Role Phone Elsewhere, Pcp Primary Care Provider Unavailabl e Source Comments Patient records contain information from all sites at [facility]. For routine questions regarding patient records, call [phone] during business hours, M-F 8:00 AM - 5:00 PM Central Time. Record requests for emergency care only can be directed to [phone] at any time.[facility] Allergies Active Allergy Reactions Criticality Noted [...] Overview: Added automatically from request for surgery [id number] Pain Knee Left 11/16/2019 Overview: Added automatically from request for surgery [id number] Anterior Cruciate Ligament Reconstruction Status Post 05/29/2017 Hypertension NOS 05/26/2017 Hypothyroidism Post Radio Iodine 05/26/2017 Overview: Grave's disease s/p MANZO resulting in hypothyroidism 02/2022 Stopped cytomel, she reported low TSH in PCP at [place]. Lost 30 lbs in past year, intentionally. Follow up TSH in Mar. She realizes further dose adjustment may be necessary. Weight based replacement is about 100 mcg. She is taking it consistently and correctly. Hyperlipidemia 05/26/2017 Pain Knee Right 05/22/2017 Overview: Added automatically from request for surgery [id number] Depression/Beckie/Bipolar NOS 04/18/2015 Overview: Disorder Mood NOS Dysthymia 06/11/2011 Overview: Dysthymic Disorder Limitation Of Motion Finger Right Follow Up Examination Postoperative Visit Vertigo Benign Paroxysmal Positional Left Vertigo Benign Paroxysmal Positional Bilateral Encounters Date Type Department Care Team Description 06/24/2023 [facility] [address] [id number] Jennifer Carranza C.NPhilP. Palpitations (Primary Dx) from [...] - MODE RNA (12 YEARS AND OLDER) [id number] 04/10/2023 SARS-COV-2 (COVID-19) - PFIZ ER (Discontinued)(12 [...] week 07/30/2021 How often do you attend [facility] or pentecostalism services? Patient declined 07/30/2021 Do you belong to any clubs o r organizations such as sabianist groups, unions, fraternal [...] and heating? Not hard at all 07/30/2021 [facility] [place] [facility] Occup[facility] - Occupational Stress [...] [place] [facility] [place] (including now)? No 07/30/2021 Nutrition Answer Date [...] Sex Assigned at Female 05/19/2017 11:19 AM STEEL ERECTOR APPRENTICE Gender Identity Female 05/19/2017 11:19 AM STEEL ERECTOR APPRENTICE Sexual Orientation Straight 05/19/2017 11 :19 AM STEEL ERECTOR APPRENTICE Last Filed Vital Signs Vital Sign Reading Time Taken Comments Blood Pressure 136/87 03/04/2022 7:47 AM STEEL ERECTOR APPRENTICE Pulse 79 03/04/2022 7:47 AM STEEL ERECTOR APPRENTICE Temperature 36.9 ??C (98.4 ??F) 03/12/2018 1 1:45 AM STEEL ERECTOR APPRENTICE Respiratory Rate 19 03/12/2018 11:3 0 AM STEEL ERECTOR APPRENTICE Oxygen Saturation 95% 03/12/2018 11: 30 AM STEEL ERECTOR APPRENTICE Inhaled Oxygen Concentration - - Weight 64.7 kg (142 lb 10.2 oz) 03/04/2022 7:47 AM STEEL ERECTOR APPRENTICE Height 158.9 cm (5' 2.56) 03/04/2022 7:47 AM CS T Body Mass Index 25.62 03/04/2022 7:47 AM STEEL ERECTOR APPRENTICE Plan of Treatment Upcoming Encounters Date Type Department Care Team (Latest Contact Info) Description 10/16/2023 9:00 AM CDT Appointment Department of Radiology in [address] [phone] Jennifer Carranza, C.N.P. [address] [place] [phone] Discharge Disposition: Home or Self Care 11/19/2023 1:00 PM CDT Comprehensive Visit Department of Cardiovascular Diseases in [address] [phone] Teja Solorzano, JOSE DANIEL, C.N.P. [address] [place] [phone] Discharge Disposition: Home or Self Care 02/23/2024 8:45 AM STEEL ERECTOR APPRENTICE Office Visit Department of Dermatology in [address] [phone] Lacy Dykes M.D. [address] [place] [phone] Health Maintenance Due Date Last Done Comments [...] Completed 03/10/2023 Medical Devices Implanted Type Area Concrete Pile Driver Operator Device Identifier Shelf Expiration Date Model / Serial / Lot [place] Rigidfix Btb 2.7 - [id number] Implanted:Qty: 1 on 05/28/2017 at [facility] Hardware e.g. pins/screws /rods Right: Knee Depuy Mitek 07/06/2019 [id number] / / [id number] Anch Sut Crk Scrw Ft 2.2 - [id number] Implanted:Qty: 1 on 03/12/2018 by Anibal Larkin M.D. at [facility] Hardware e.g. pins/screws /rods Ar[employer]rex [id number] AR-1318FT / / Anch Sut Crk Scrw Ft 2.2 - [id number] Implanted:Qty: 1 on 03/12/2018 by Anibal Larkin M.D. at [facility] Hardware e.g. pins/screws /rods Ar[employer]rex [id number] AR-1318FT / / Patellar Tendon Implanted:Qty: 1 on 05/28/2017 at [facility] Knee Implant Right: Knee [employer] [id number] 11/22/2020 [id number] / [id number] / [id number] Interference Screw Implanted:Qty: 1 on 05/28/2017 at [facility] Knee Implant Right: Knee Ribeiro and Nephew [id number] 07/19/2019 [id number] / / [id number] Procedures Procedure Name Priority Date/Time Associated Diagnosis Comments BI BREAST SCREENING BILATERAL WITH TOMOSYNTHESIS RAD - Routine (most inpatients and all outpatients) 02/25/2023 8:12 AM STEEL ERECTOR APPRENTICE Screening Mammogram Breast Cancer THYROID-STIMULATING HORMONE-SENSITIVE (S-TSH) Routine 09/06/2022 8:22 AM CDT Hypothyroidism Post Radio Iodine CREATININE WITH EGFR, S/P Routine 06/17/2022 8:23 AM CDT Osteoporosis Post Menopausal Without Pathological Fracture LIPID PANEL, S Routine 03/06/2021 7:19 AM STEEL ERECTOR APPRENTICE Graves' Disease Iron Deficiency Anemia Screening Exam Hyperlipidemia Incontinence Urinary COMPREHENSIVE METABOLIC PANEL, S/P Routine 03/06/2021 7:19 AM STEEL ERECTOR APPRENTICE Graves' Disease Iron Deficiency Anemia Screening Exam Hyperlipidemia Incontinence Urinary THINPREP SCREEN HPV REFLEX Routine 05/02/2014 9:00 AM STEEL ERECTOR APPRENTICE from Last 3 Months or Most Recently Relevant to Health Maintenance Results * BI Breast Screening Bilateral with Tomosynthesis (02/25/2023 8:12 AM STEEL ERECTOR APPRENTICE) Anatomical Region Laterality Modality Breast, Breast Imaging RST L OS, Breast Imaging ARZ LOS, Breast Imaging FLA LOS Bilateral Mammography 02/25/2023 11:0 7 AM STEEL ERECTOR APPRENTICE Impressions 02/25/2023 11:11 AM STEEL ERECTOR APPRENTICE Negative. RECOMMENDATION: ??Annual Screening Mammogram ASSESSMENT: ??BI-RADS: 1: Negative. Narrative 02/25/2023 11:11 AM STEEL ERECTOR APPRENTICE EXAM: ??BI BREAST SCREENING BILATERAL WITH TOMOSYNTHESIS [...] M.D. LAB BLOOD ADD-ON Performing Organization Address [facility] Co de Phone Number [facility] [address] [place] [address], [facility] CNFL [facility] [place] [address] * Creatinine with Estimated GFR (06/17/2022 8:23 AM CDT) Creatinine 0.74 0.59 - 1.04 mg/dL 06/17/2022 9:01 AM CDT CNFL Estimated GFR (eGFR) 89 >=60 mL/min/BSA 06/17/2022 9:01 AM CDT CNFL Comment: Estimated GFR calculated using the 2020 CKD_EPI creatinine equation. Blood (Blood, Venous) 06/17/2022 8:23 AM CDT 06/17/2022 8:25 AM CDT Urmila Xiao M.D., Ph.D. LAB BLOOD ADD-O N Performing Organization Address [facility] Co de Phone Number [facility] [address] [place] [address], [facility] CNFL [facility] [place] [address] * Lipid Panel (03/06/2021 7:19 AM STEEL ERECTOR APPRENTICE) Cholesterol, Total 197 mg/dL 2020 7:41 AM STEEL ERECTOR APPRENTICE CNFL Comment: ----REFERENCE VALUE---- Desirable: < 200 Borderline high: 200 - 239 High: > or = 240 Triglycerides 77 mg/dL 03/06/2021 7:41 AM STEEL ERECTOR APPRENTICE CNFL Comment: ----REFERENCE VALUE---- Normal: <150 Borderline high: 150-199 High: 200-499 Very high: > or =500 Cholesterol, HDL 82 >=50 mg/dL 03/06/20 7:41 AM STEEL ERECTOR APPRENTICE CNFL Calculated LDL 100 mg/dL 03/06/2021 7:41 AM STEEL ERECTOR APPRENTICE CNFL Comment: ----REFERENCE VALUE---- Desirable: <100 mg/dL Above Desirable: 100-129 mg/dL Borderline High: 130-159 mg/dL High: 160-189 mg/dL Very High: >=190 mg/dL Cholesterol, Non-HDL, Calculated 115 mg/dL 03/06/2021 7:41 AM STEEL ERECTOR APPRENTICE CNFL Comment: ----REFERENCE VALUE---- Desirable: <130 Above Desirable: 130-159 Borderline high: 160-189 High: 190-219 Very high: > or =220 Blood (Blood, Venous) 03/06/2021 7:19 AM STEEL ERECTOR APPRENTICE 03/06/2021 7:21 AM STEEL ERECTOR APPRENTICE Jennifer Carranza C.N.P. LAB BLOOD ADD- ON [facility] [address] [place] [address], [facility] [place] [address] * Comprehensive Metabolic Panel (03/06/2021 7:19 AM STEEL ERECTOR APPRENTICE) Potassium, P 4.3 3.6 - 5.2 mmol/L 03/06/2021 7:41 AM STEEL ERECTOR APPRENTICE CNFL Sodium, P 135 135 - 145 mmol/L 03/06/2021 7:41 AM STEEL ERECTOR APPRENTICE CNFL Chloride, P 101 98 - 107 mmol/L 03/06/2021 7:41 AM STEEL ERECTOR APPRENTICE CNFL Bicarbonate, P 24 22 - 29 mmol/L 03/06/2021 7:41 AM STEEL ERECTOR APPRENTICE CNFL Anion Gap, P 10 7 - 15 03/06/2021 7:41 AM STEEL ERECTOR APPRENTICE CNFL BUN (Blood Urea Nitrogen), P 12 6 - 21 mg/dL 03/06/2021 7:41 AM STEEL ERECTOR APPRENTICE CNFL Creatinine 0.74 0.59 - 1.04 mg/dL 03/06/2021 7:41 AM STEEL ERECTOR APPRENTICE CNFL eGFR-Black/ >90 >=60 mL/min/BS A 03/06/2021 7:41 AM STEEL ERECTOR APPRENTICE CNFL Comment: ----ADDITIONAL INFORMATION---- Estimated GFR calculated using the 2009 CKD_EPI creatinine equation. eGFR Non-Black/ 85 >=60 mL/min/BS A 03/06/2021 7:41 AM STEEL ERECTOR APPRENTICE CNFL Comment: ----ADDITIONAL INFORMATION---- Estimated GFR calculated using the 2009 CKD_EPI creatinine equation. Calcium, Total, P 9.2 8.8 - 10.2 mg/dL 03/06/2021 7:41 AM STEEL ERECTOR APPRENTICE CNFL Glucose, P 100 70 - 140 mg/dL 03/06/2021 7:41 AM STEEL ERECTOR APPRENTICE CNFL Protein, Total, P 7.0 6.3 - 7.9 g/dL 03/06/2021 7:41 AM STEEL ERECTOR APPRENTICE CNFL Albumin, P 4.2 3.5 - 5.0 g/dL 03/06/2021 7:41 AM STEEL ERECTOR APPRENTICE CNFL Aspartate Aminotransferase (AST), P 27 8 - 43 U/L 03/06/2021 7:41 AM STEEL ERECTOR APPRENTICE CNFL Alkaline Phosphatase, P 60 35 - 104 U/L 03/06/2021 7:41 AM STEEL ERECTOR APPRENTICE CNFL Alanine Aminotransferase (ALT), P 24 7 - 45 U/L 03/06/2021 7:41 AM STEEL ERECTOR APPRENTICE CNFL Bilirubin, Total, P 0.6 <=1.2 mg/dL 03/06/2021 7:41 AM STEEL ERECTOR APPRENTICE CNFL Blood (Blood, Venous) 03/06/2021 7:19 AM STEEL ERECTOR APPRENTICE 03/06/2021 7:21 AM STEEL ERECTOR APPRENTICE Jennifer Carranza C.N.P. LAB BLOOD ADD- ON [facility] [address] [place] [phone], [facility] CNFL [facility] in [address] [address] * Pathology ThinPrep Screen HPV Reflex (05/02/2014 9:00 AM STEEL ERECTOR APPRENTICE) Interpretation [id number] POWERCHART HXThPrep Scrn Fnl-[place] See Comment POWERCHART Comment: A. ??ThinPrep Pap [...] 58, 59, 66, and 68. HXThPrep Scrn Cyto-[place] See Comment POWERCHART Comment: Report electronically signed by Pritesh Lewis, SCT(ASCP) 05/10/2014 07:55 Interpreted by: MILDRED Rowe (ASCP) [facility] See Comment POWERCHART Comment: A. ??ThinPrep Pap Test Screen (Cervical/Endocervical HPV Reflex): Received cloudy specimen in ThinPrep vial. Test Performed by: [address] [address] Fireproof Door Maker: Tushar Hernandez M.D. Cervix/Endocervix 05/02/2014 9:00 AM STEEL ERECTOR APPRENTICE Kp Contreras APRN.N.PPhil, D.N.P. LAB PAP PATHDX ORDERABLES POWERCHART from Last 3 Months or Most Recently Relevant to Health Maintenance Care Teams Calciner Operator Relationship Specialty Start Date End Date Elsewhere, Pcp PCP - General Family Medicine 06/16/20
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
--- OUTSIDE RECORDS SUMMARY | 2023-09-19 15:32 | XMS_ITS | Encounter Summary ---
Author Organization [facility] Address [address] [place] [phone] Phone Care Team Providers Care Box Tender Name Role Phone Unavailable Primary Care Provider Unavailabl e Encounter Details Date Type Department Care Team (Late st Contact Info) Description 09/17/2023 Orders Only Unspecified Department [place] Unknown, Provider Social History Tobacco Use Types Packs/Day Years [...] [facility] [address] [place] [address] Vanessa Marie PA-C [address] [place] [phone] Scheduled Discharge Disposition: Discharged to home or self care (routine discharge) 10/06/2023 11:30 AM CDT Office [facility] [address] [place] [phone] Ashkan, Gen Surg Trauma [address] [place] [phone] Scheduled Discharge Disposition: Discharged to home or self care (routine discharge) documented as of this encounter Procedures Procedure Name Priority Date/Time Associated Diagnosis Comments TELEMETRY STRIPS 09/17/2023 12:5 9 AM CDT documented in this encounter Results * TELEMETRY STRIPS (09/17/2023 12:59 AM CDT) Narrative 09/17/2023 12:59 AM CDT Ordered by an unspecified provider. Provider Unknown RAD ECHO documented in this encounter Visit Diagnoses Not on filedocumented in this encounter
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
--- OUTSIDE RECORDS SUMMARY | 2023-09-19 15:32 | XMS_ITS | Encounter Summary ---
Author Organization [facility] Address [address] [place] [address] Phone Care Team Providers Care Pan Washer Name Role Phone Unavailable Primary Care Provider Unavailabl e Encounter Details Date Type Department Care Team (Late st Contact Info) Description 09/16/2023 Orders Only Unspecified Department [place] Unknown, [...] [facility] [address] [place] [address] Vanessa Marie PA-C [address] [place] [address] Scheduled Discharge Disposition: Discharged to home or self care (routine discharge) 10/06/2023 11:30 AM CDT Office [facility] [address] [place] [phone] Ashkan, Gen Surg Trauma [address] [place] [phone] Scheduled Discharge Disposition: Discharged to home or self care (routine discharge) documented as of this encounter Procedures Procedure Name Priority Date/Time Associated Diagnosis Comments TELEMETRY STRIPS 09/16/2023 2:14 PM CDT documented in this encounter Results * TELEMETRY STRIPS (09/16/2023 2:14 PM CDT) Narrative 09/16/2023 2:14 PM CDT Ordered by an unspecified provider. Provider Unknown RAD ECHO documented in this encounter Visit Diagnoses Not on filedocumented in this encounter
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
--- OUTSIDE RECORDS SUMMARY | 2023-09-19 15:33 | XMS_ITS | Encounter Summary ---
Author Organization [facility] er Address [address] [place] [address] Care Team Providers Care Assembly Machine Tender Name Role Phone Jennifer Carranza APRN, BRICKLAYER HELPER Primary Care Provi tien Reason for Visit * Reason Comments Med Refill Encounter Details Date Type Department Care Team (Late st Contact Info) Description 09/30/2018 Refill [place] [address] [place] [address] Jennifer Carranza, SHOE PULLER, BRICKLAYER HELPER [address] [place] [phone] Insomnia, unspecified type Social History Tobacco Use [...] Family Three times a week 09/25/2018 Attends Baptism Services Never 09/25 Active Member of Clubs or Organizations No 09/25/2018 Attends Club or Organization Meetings Never 09/25/2018 Marital Status Living with partner 09/25/2018 Overall Financial Resource Strain (CARDIA) Answe r Date Recorded Difficulty of Paying Living Expenses Not hard at all 09/25/2018 PHQ-2 Answer Date Recorded PHQ-2 Score 0 08/05/2018 [facility] - [...] type documented in this encounter Care Teams Assembly Machine Tender Relationship Specialty Start Date End Date Jennifer Carranza, SHOE PULLER, BRICKLAYER HELPER [address] [place] [address] PCP - General Family Medicine 11/12/21 12/19/22 documented as of this encounter
--- OUTSIDE RECORDS SUMMARY | 2023-09-19 15:33 | XMS_ITS | Clinical Summary ---
Author Organization [facility] er Address [address] [place] [address] Care Team Providers Care Change Control Analyst Name Role Phone Unavailable Primary Care Provider Unavailabl e Allergies Active Allergy Reactions Criticality Noted Date Comments Dtap-Ipv Vaccine 09/30/2012 Hylan G-F 20 Other Anaphylaxis High 03/03/2018 Wasps Pollen Extract 02/08/2005 Pnhescb-Izmnzx-Tgdub Pertussis Wasp Venom Anaphylaxis High 04/11/2006 Medications [...] Overview: Added automatically from request for surgery [id number] H/O colonoscopy with polypectomy 02/10/2020 Overview: Colonoscopy 06/12/2007 ([place]) - multiple polyps 3-7 mm in size; Normal colonoscopy in 06/2011 ([place]); Colonoscopy with [facility] on 12/17/2016 - repeat in 10 years. Essential hypertension 12/30/2019 Osteopenia 12/30/2019 History of reconstruction of anterior cruciate ligament tear 05/29/2017 Hypothyroidism following radioiodine therapy Overview: Grave's disease s/p MANZO resulting in hypothyroidism 02/2022 Stopped cytomel, she reported low TSH in PCP at [place]. Lost 30 lbs in past year, intentionally. Follow up TSH in Mar. She realizes further dose adjustment may be necessary. Weight based replacement is about 100 mcg. She is taking it consistently and correctly. Knee pain 05/22/2017 Overview: Overview: Added automatically from request for surgery [id number] Insomnia 02/03/2017 Hyperlipidemia 04/30/2016 Hypothyroidism 12/04/2004 Overview: [...] often do you attend chur ch or pentecostal services? Never 11/08/2022 Do you belong to [...] Date Recorded PHQ-9 Total Score 0 03/07/2023 [facility] - Occupational Stress Questionnaire Answer Date [...] slept in a care home (including now)? No 11/08/2022 Education Answer Date [...] Comments Blood Pressure 120/70 03/07/2023 1:15 PM SCREEN PRINTING MACHINE LOADER UNLOADER Pulse 65 03/07/2023 1:15 PM SCREEN PRINTING MACHINE LOADER UNLOADER Temperature 36.3 ??C (97.4 ??F) 03/07/2023 1:15 PM CS T Respiratory Rate 16 03/07/2023 1:15 PM SCREEN PRINTING MACHINE LOADER UNLOADER Oxygen Saturation 95% 03/07/2023 1:15 PM SCREEN PRINTING MACHINE LOADER UNLOADER Inhaled Oxygen Concentration - - Weight 68.7 kg (151 lb 6.4 oz) 03/07/2023 1:15 P M SCREEN PRINTING MACHINE LOADER UNLOADER Height 154.9 cm (5' 1) 03/07/2023 1:15 PM SCREEN PRINTING MACHINE LOADER UNLOADER Body Mass Index 28.61 03/07/2023 1:15 PM SCREEN PRINTING MACHINE LOADER UNLOADER Plan of Treatment Health Maintenance Due Date Last Done Comments CT Colonography 1955 FIT-DNA 1955 Sigmoidoscopy 1955 iFOBT 1955 Medicare Annual Wellness Visit (AWV) 11/09/2023 11/08/2022 Mammogram 02/26/2024 02/25/2023, 02/06, 02/08/2022, Additional history exists Fall Risk Performed 03/07/2024 03/07/2023 Colonoscopy 12/17/2026 12/17/2016 Colorectal Cancer Screening 12/17/2026 Bone Density Scan 02/08/2027 02/08/2022, , 01/18/2019, Additional history exists DTaP,Tdap,and Td Vaccines (4 - Td or Tdap) 09/16/2033 09/17/2023, 10/14/2008, 11/25/2005, Additional history exists Pap Smear Discontinued 02/10/2020, [...] SCREENING TOMOSYNTHESIS BILATERAL Routine 02/25/2023 8:12 AM SCREEN PRINTING MACHINE LOADER UNLOADER DEXA BONE DENSITY Routine 02/08/2022 9:4 9 AM CDT PAP TEST Routine 02/10/2020 11:18 AM SCREEN PRINTING MACHINE LOADER UNLOADER Cervical cancer screening from Last 3 Months or Most Recently Relevant to Health Maintenance Results * Pap Smear (02/10/2020 11:18 AM SCREEN PRINTING MACHINE LOADER UNLOADER) Sure Path PAP, screen 02/10/2020 11:18 AM SCREEN PRINTING MACHINE LOADER UNLOADER 02/11/2020 2:58 PM SCREEN PRINTING MACHINE LOADER UNLOADER Narrative [facility] - 02/17/2020 11:31 AM SCREEN PRINTING MACHINE LOADER UNLOADER ? [facility] ? [address] ?[place] [address] ? Patient: ?MARJAN HAMPTON ?Procedure: ? 02/10/2020 11:18 /Age/Sex: ??1955, 64 Y, F ? Received: ?02/11/2020 14:58 ?Accession #: ?? [id number] Billing: ?[id number] ?Patient Location: [facility] ?OFFICE Ordered by: ?? BRENDA GANNON MD ?Attending: ? BRENDA GANNON MD ? EMR TRAINER CYTOLOGY FINAL REPORT SPECIMEN: (A) SURE PATH [...] Brenda Gannon MD LAB CYTOLOGY YARELI BRITT [facility] [address] [place] [address] from Last 3 Months or Most Recently Relevant to Health Maintenance
--- OUTSIDE RECORDS SUMMARY | 2023-09-19 15:33 | XMS_ITS ---
Author Organization [facility] Address [address] [place] [address] Care Team Providers Care Data Center Operator Name Role Phone Unavailable Unavailable Unavailable Surgery Details Not on file Complications Check Surgery Details section. Procedure Estimated Blood Loss Check Surgery Details section. Procedure Findings Check Surgery Details section. Procedure Specimens Taken Check Surgery Details section.
--- OUTSIDE RECORDS SUMMARY | 2023-09-19 15:33 | XMS_ITS | Encounter Summary ---
Author Organization [facility] er Address [address] [place] [address] Care Team Providers Care Ibm Bpm Architect Name Role Phone Jennifer Carranza APRN, PRODUCT DEVELOPMENT CARPENTER Primary Care Provi tien Reason for Visit * Reason Onset Date Comments Med Refill 01/29/2018 Encounter Details Date Type Department Care Team (Late st Contact Info) Description 01/29/2018 Refill [place] [address] [place] [address] Jennifer Carranza, THREAD MACHINE OPERATOR, PRODUCT DEVELOPMENT CARPENTER [address] [place] [address] Social History Tobacco Use Types Packs/Day Years Used Date Smoking Tobacco: Never Assessed Sex and Gender Information Value Date Recorded Sex Assigned at Not on file Gender Identity Not on file Sexual Orientation Not on file documented as of this encounter Plan of Treatment Not on file documented as of this encounter Visit Diagnoses Not on filedocumented in this encounter Care Teams Ibm Bpm Architect Relationship Specialty Start Date End Date Jennifer Carranza APRN, PRODUCT DEVELOPMENT CARPENTER [address] [place] [address] PCP - General Family Medicine 11/12/21 12/19/22 documented as of this encounter
--- OUTSIDE RECORDS SUMMARY | 2023-09-19 15:33 | XMS_ITS | Referral Summary ---
Author Organization [facility] Address [address] [place] [address] Care Team Providers Care Software Applications Architect Name Role Phone Elsewhere, Pcp Primary Care Provider Unavailabl e Source Comments Patient records contain information from all sites at [facility]. For routine questions regarding patient records, call [phone] during business hours, M-F 8:00 AM - 5:00 PM Central Time. Record requests for emergency care only can be directed to [phone] at any time.[facility] Encounters Date Type Department Care Team Description 06/24/2023 [facility] [address] [place] [address] Jennifer Carranza C.NPhilPPhil Palpitations (Primary Dx) from [...] Overview: Added automatically from request for surgery [id number] Pain Knee Left 11/16/2019 Overview: Added automatically from request for surgery [id number] Anterior Cruciate Ligament Reconstruction Status Post 05/29/2017 Hypertension NOS 05/26/2017 Hypothyroidism Post Radio Iodine 05/26/2017 Overview: Grave's disease s/p MANZO resulting in hypothyroidism 02/2022 Stopped cytomel, she reported low TSH in PCP at [place]. Lost 30 lbs in past year, intentionally. Follow up TSH in Mar. She realizes further dose adjustment may be necessary. Weight based replacement is about 100 mcg. She is taking it consistently and correctly. Hyperlipidemia 05/26/2017 Pain Knee Right 05/22/2017 Overview: Added automatically from request for surgery [id number] Depression/Beckie/Bipolar NOS 04/18/2015 Overview: Disorder Mood NOS [...] - MODE RNA (12 YEARS AND OLDER) [id number] 04/10/2023 SARS-COV-2 (COVID-19) - PFIZ ER (Discontinued)(12 [...] How often do you attend chur or anabaptist services? Patient declined 07/30/2021 Do you belong to any clubs o r organizations such as yazdanism groups, unions, fraternal [...] and heating? Not hard at all 07/30/2021 [facility] - Occupational [...] Sex Assigned at Female 05/19/2017 11:19 AM INSPECTOR OUTSIDE STEAM DISTRIBUTION Gender Identity Female 05/19/2017 11:19 AM INSPECTOR OUTSIDE STEAM DISTRIBUTION Sexual Orientation Straight 05/19/2017 11 :19 AM INSPECTOR OUTSIDE STEAM DISTRIBUTION Last Filed Vital Signs Vital Sign Reading Time Taken Comments Blood Pressure 136/87 03/04/2022 7:47 AM INSPECTOR OUTSIDE STEAM DISTRIBUTION Pulse 79 03/04/2022 7:47 AM INSPECTOR OUTSIDE STEAM DISTRIBUTION Temperature 36.9 ??C (98.4 ??F) 03/12/2018 1 1:45 AM INSPECTOR OUTSIDE STEAM DISTRIBUTION Respiratory Rate 19 03/12/2018 11:3 0 AM INSPECTOR OUTSIDE STEAM DISTRIBUTION Oxygen Saturation 95% 03/12/2018 11: 30 AM INSPECTOR OUTSIDE STEAM DISTRIBUTION Inhaled Oxygen Concentration - - Weight 64.7 kg (142 lb 10.2 oz) 03/04/2022 7:47 AM INSPECTOR OUTSIDE STEAM DISTRIBUTION Height 158.9 cm (5' 2.56) 03/04/2022 7:47 AM CS T Body Mass Index 25.62 03/04/2022 7:47 AM INSPECTOR OUTSIDE STEAM DISTRIBUTION Plan of Treatment Upcoming Encounters Date Type Department Care Team (Latest Contact Info) Description 10/16/2023 9:00 AM CDT Appointment Department of Radiology in [address] [phone] Jennifer Carranza, C.N.P. [address] [place] [phone] Discharge Disposition: Home or Self Care 11/19/2023 1:00 PM CDT Comprehensive Visit Department of Cardiovascular Diseases in [address] [phone] Teja Solorzano APRN, C.N.P. [address] [place] [phone] Discharge Disposition: Home or Self Care 02/23/2024 8:45 AM INSPECTOR OUTSIDE STEAM DISTRIBUTION Office Visit Department of Dermatology in [address] [phone] Lacy Dykes M.D. [address] [place] [phone] Medical Devices Implanted Type Area Emt/Dispatcher Device Identifier Shelf Expiration Date Model / Serial / Lot [place] Rigidfix Btb 2.7 - [id number] Implanted:Qty: 1 on 05/28/2017 at [facility] Hardware e.g. pins/screws /rods Right: Knee Depuy Mitek 07/06/2019 [id number] / / [id number] [facility] Crk Scrw Ft 2.2 - [id number] Implanted:Qty: 1 on 03/12/2018 by Anibal Larkin M.D. at [facility] [employer] Hard[employer] e.g. pins/screws /rods Arthrex [id number] AR-1318FT / / Anch Sut Crk Scrw Ft 2.2 - [id number] Implanted:Qty: 1 on 03/12/2018 by Anibal Larkin M.D. at [facility] [employer] Hard[employer] e.g. pins/screws /rods Arthrex [id number] AR-1318FT / / Patellar Tendon Implanted:Qty: 1 on 05/28/2017 at [facility] Knee Implant Right: Knee [employer] [id number] 11/22/2020 [id number] / [id number] / [id number] Interference Screw Implanted:Qty: 1 on 05/28/2017 at [facility] Knee Implant Right: Knee Ribeiro and Nephew [id number] 07/19/2019 [id number] / / [id number] Procedures Procedure Name Priority Date/Time Associated Diagnosis Comments BI BREAST SCREENING BILATERAL WITH TOMOSYNTHESIS RAD - Routine (most inpatients and all outpatients) 02/25/2023 8:12 AM INSPECTOR OUTSIDE STEAM DISTRIBUTION Screening Mammogram Breast Cancer THYROID-STIMULATING HORMONE-SENSITIVE (S-TSH) Routine 09/06/2022 8:22 AM CDT Hypothyroidism Post Radio Iodine CREATININE WITH EGFR, S/P Routine 06/17/2022 8:23 AM CDT Osteoporosis Post Menopausal Without Pathological Fracture LIPID PANEL, S Routine 03/06/2021 7:19 AM INSPECTOR OUTSIDE STEAM DISTRIBUTION Graves' Disease Iron Deficiency Anemia Screening Exam Hyperlipidemia Incontinence Urinary COMPREHENSIVE METABOLIC PANEL, S/P Routine 03/06/2021 7:19 AM INSPECTOR OUTSIDE STEAM DISTRIBUTION Graves' Disease Iron Deficiency Anemia Screening Exam Hyperlipidemia Incontinence Urinary THINPREP SCREEN HPV REFLEX Routine 05/02/2014 9:00 AM INSPECTOR OUTSIDE STEAM DISTRIBUTION from Last 3 Months or Most Recently Relevant to Health Maintenance Results * BI Breast Screening Bilateral with Tomosynthesis (02/25/2023 8:12 AM INSPECTOR OUTSIDE STEAM DISTRIBUTION) Anatomical Region Laterality Modality Breast, Breast Imaging RST L OS, Breast Imaging ARZ LOS, Breast Imaging FLA LOS Bilateral Mammography 02/25/2023 11:0 7 AM INSPECTOR OUTSIDE STEAM DISTRIBUTION Impressions 02/25/2023 11:11 AM INSPECTOR OUTSIDE STEAM DISTRIBUTION Negative. RECOMMENDATION: ??Annual Screening Mammogram ASSESSMENT: ??BI-RADS: 1: Negative. Narrative 02/25/2023 11:11 AM INSPECTOR OUTSIDE STEAM DISTRIBUTION EXAM: ??BI BREAST SCREENING BILATERAL WITH TOMOSYNTHESIS [...] ASSESSMENT: BI-RADS: 1: Negative. Sunny Collado M.D. [facility] BI PROCEDUR ES * S-TSH (Thyroid-Stimulating Hormone - Sensitive) (09/06/2022 8:22 AM CDT) TSH, Sensitive 0.6 0.3 - 4.2 mIU/L 09/06/2022 11:56 AM CDT CNFL Blood (Blood, Venous) 09/06/2022 8:22 AM CDT 09/06/2022 8:22 AM CDT Azam A Wermers M.D. LAB BLOOD ADD-ON Performing Organization Address [facility] [place] [address], [place] [address] * Creatinine with Estimated GFR (06/17/2022 8:23 AM CDT) Creatinine 0.74 0.59 - 1.04 mg/dL 06/17/2022 9:01 AM CDT CNFL Estimated GFR (eGFR) 89 >=60 mL/min/BSA 06/17/2022 9:01 AM CDT CNFL Comment: Estimated GFR calculated using the 2020 CKD_EPI creatinine equation. Blood (Blood, Venous) 06/17/2022 8:23 AM CDT 06/17/2022 8:25 AM CDT Urmila Xiao M.D., Ph.D. LAB BLOOD ADD-O N Performing Organization Address [facility] Co de Phone Number [address] [address], [place] [address] * Lipid Panel (03/06/2021 7:19 AM INSPECTOR OUTSIDE STEAM DISTRIBUTION) Cholesterol, Total 197 mg/dL 2020 7:41 AM INSPECTOR OUTSIDE STEAM DISTRIBUTION CNFL Comment: ----REFERENCE VALUE---- Desirable: < 200 Borderline high: 200 - 239 High: > or = 240 Triglycerides 77 mg/dL 03/06/2021 7:41 AM INSPECTOR OUTSIDE STEAM DISTRIBUTION CNFL Comment: ----REFERENCE VALUE---- Normal: <150 Borderline high: 150-199 High: 200-499 Very high: > or =500 Cholesterol, HDL 82 >=50 mg/dL 03/06/20 7:41 AM INSPECTOR OUTSIDE STEAM DISTRIBUTION CNFL Calculated LDL 100 mg/dL 03/06/2021 7:41 AM INSPECTOR OUTSIDE STEAM DISTRIBUTION CNFL Comment: ----REFERENCE VALUE---- Desirable: <100 mg/dL Above Desirable: 100-129 mg/dL Borderline High: 130-159 mg/dL High: 160-189 mg/dL Very High: >=190 mg/dL Cholesterol, Non-HDL, Calculated 115 mg/dL 03/06/2021 7:41 AM INSPECTOR OUTSIDE STEAM DISTRIBUTION CNFL Comment: ----REFERENCE VALUE---- Desirable: <130 Above Desirable: 130-159 Borderline high: 160-189 High: 190-219 Very high: > or =220 Blood (Blood, Venous) 03/06/2021 7:19 AM INSPECTOR OUTSIDE STEAM DISTRIBUTION 03/06/2021 7:21 AM INSPECTOR OUTSIDE STEAM DISTRIBUTION Jennifer Carranza C.N.P. LAB BLOOD ADD- ON [facility] [address] [place] [address], [facility] CNFL [place] [address] * Comprehensive Metabolic Panel (03/06/2021 7:19 AM INSPECTOR OUTSIDE STEAM DISTRIBUTION) Potassium, P 4.3 3.6 - 5.2 mmol/L 03/06/2021 7:41 AM INSPECTOR OUTSIDE STEAM DISTRIBUTION CNFL Sodium, P 135 135 - 145 mmol/L 03/06/2021 7:41 AM INSPECTOR OUTSIDE STEAM DISTRIBUTION CNFL Chloride, P 101 98 - 107 mmol/L 03/06/2021 7:41 AM INSPECTOR OUTSIDE STEAM DISTRIBUTION CNFL Bicarbonate, P 24 22 - 29 mmol/L 03/06/2021 7:41 AM INSPECTOR OUTSIDE STEAM DISTRIBUTION CNFL Anion Gap, P 10 7 - 15 03/06/2021 7:41 AM INSPECTOR OUTSIDE STEAM DISTRIBUTION CNFL BUN (Blood Urea Nitrogen), P 12 6 - 21 mg/dL 03/06/2021 7:41 AM INSPECTOR OUTSIDE STEAM DISTRIBUTION CNFL Creatinine 0.74 0.59 - 1.04 mg/dL 03/06/2021 7:41 AM INSPECTOR OUTSIDE STEAM DISTRIBUTION CNFL eGFR-Black/ >90 >=60 mL/min/BS A 03/06/2021 7:41 AM INSPECTOR OUTSIDE STEAM DISTRIBUTION CNFL Comment: ----ADDITIONAL INFORMATION---- Estimated GFR calculated using the 2009 CKD_EPI creatinine equation. eGFR Non-Black/ 85 >=60 mL/min/BS A 03/06/2021 7:41 AM INSPECTOR OUTSIDE STEAM DISTRIBUTION CNFL Comment: ----ADDITIONAL INFORMATION---- Estimated GFR calculated using the 2009 CKD_EPI creatinine equation. Calcium, Total, P 9.2 8.8 - 10.2 mg/dL 03/06/2021 7:41 AM INSPECTOR OUTSIDE STEAM DISTRIBUTION CNFL Glucose, P 100 70 - 140 mg/dL 03/06/2021 7:41 AM INSPECTOR OUTSIDE STEAM DISTRIBUTION CNFL Protein, Total, P 7.0 6.3 - 7.9 g/dL 03/06/2021 7:41 AM INSPECTOR OUTSIDE STEAM DISTRIBUTION CNFL Albumin, P 4.2 3.5 - 5.0 g/dL 03/06/2021 7:41 AM INSPECTOR OUTSIDE STEAM DISTRIBUTION CNFL Aspartate Aminotransferase (AST), P 27 8 - 43 U/L 03/06/2021 7:41 AM INSPECTOR OUTSIDE STEAM DISTRIBUTION CNFL Alkaline Phosphatase, P 60 35 - 104 U/L 03/06/2021 7:41 AM INSPECTOR OUTSIDE STEAM DISTRIBUTION CNFL Alanine Aminotransferase (ALT), P 24 7 - 45 U/L 03/06/2021 7:41 AM INSPECTOR OUTSIDE STEAM DISTRIBUTION CNFL Bilirubin, Total, P 0.6 <=1.2 mg/dL 03/06/2021 7:41 AM INSPECTOR OUTSIDE STEAM DISTRIBUTION CNFL Blood (Blood, Venous) 03/06/2021 7:19 AM INSPECTOR OUTSIDE STEAM DISTRIBUTION 03/06/2021 7:21 AM INSPECTOR OUTSIDE STEAM DISTRIBUTION Jennifer Carranza C.N.P. LAB BLOOD ADD- ON Performing Organization Address [facility]/State/ZIP Co de Phone Number [facility] [address] [place] [address], [place] [address] * Pathology ThinPrep Screen HPV Reflex (05/02/2014 9:00 AM INSPECTOR OUTSIDE STEAM DISTRIBUTION) Interpretation [id number] POWERCHART [facility] See Comment POWERCHART Comment: A. ??ThinPrep Pap [...] 58, 59, 66, and 68. HXThPrep Scrn Cyto-[place] See Comment POWERCHART Comment: Report electronically signed by Pritesh Lewis, SCT(ASCP) 05/10/2014 07:55 Interpreted by: Marium Rivas CT (ASCP) HX Spec Desc-[place] See Comment POWERCHART Comment: A. ??ThinPrep Pap Test Screen (Cervical/Endocervical HPV Reflex): Received cloudy specimen in ThinPrep vial. Test Performed by: [place] [address] Detail Technician: Tushar Hernandez M.D. Cervix/Endocervix 05/02/2014 9:00 AM INSPECTOR OUTSIDE STEAM DISTRIBUTION Kimberlyn Alvarez APRN C.N.P., D.N.P. LAB PAP PATHDX ORDERABLES POWERCHART from Last 3 Months or Most Recently Relevant to Health Maintenance Care Teams Software Applications Architect Relationship Specialty Start Date End Date Elsewhere, Pcp PCP - General Family Medicine 06/16/20
--- OUTSIDE RECORDS SUMMARY | 2023-09-19 15:33 | XMS_ITS | Encounter Summary ---
Author Organization [facility] er Address [address] [place] [address] Care Team Providers Care Critical Care Cns Name Role Phone Jennifer Carranza [employer]GER [employer], [employer] Primary Care Provi tien Reason for Visit * Reason Onset Date Comments Med Refill 01/29/2018 Encounter Details Date Type Department Care Team (Late st Contact Info) Description 01/29/2018 Refill [place] [address] [place] [address] Jennifer Carranza, [employer], [employer] [address] [place] [phone] Insomnia, unspecified type Social History Tobacco Use [...] type documented in this encounter Care Teams Critical Care Cns Relationship Specialty Start Date End Date Jennifer Carranza APRN, [employer] [address] [place] [address] PCP - General Family Medicine 11/12/21 12/19/22 documented as of this encounter
--- OUTSIDE RECORDS SUMMARY | 2023-09-19 15:33 | XMS_ITS | Encounter Summary ---
Author Organization [facility] Address [address] [place] [address] Care Team Providers Care Program Director Group Work Name Role Phone Elsewhere, Pcp Primary Care Provider Unavailabl e Reason for Referral * Outpatient (Routine) - Authorized Specialty Diagnoses / Procedures Referred By Hailey t Referred To Contact Cardiovascular Disease Diagnoses Palpitations Jennifer Carranza, C.N.P. [address] [place] [address] [facility] Region Referral ID Status Reason Start Date Expiration Date V isits Requested Visits Authorized [id number] Authorized 06/24/2023 12/23/2024 1 1 Encounter Details Date Type Department Care Team (Late st Contact Info) Description 06/24/2023 [facility] [address] [place] [address] Jennifer Carranza, C.N.P. [address] [place] [phone] Palpitations (Primary Dx) Social History [...] week 07/30/2021 How often do you attend [facility] or [facility] services? Patient declined 07/30/2021 Do you belong [...] and heating? Not hard at all 07/30/2021 [facility] [place] [facility] Occupat ional [facility] - Occupational Stress [...] or slept in a mcc (including now)? No 07/30/2021 Nutrition Answer Date [...] Sex Assigned at Female 05/19/2017 11:19 AM CLEAN IN PLACES OPERATOR Gender Identity Female 05/19/2017 11:19 AM CLEAN IN PLACES OPERATOR Sexual Orientation Straight 05/19/2017 11 :19 AM CLEAN IN PLACES OPERATOR documented as of this encounter Plan of Treatment Upcoming Encounters Date Type Department Care Team (Latest Contact Info) Description 10/16/2023 9:00 AM CDT Appointment Department of Radiology in [address] [phone] Jennifer Carranza, C.N.P. [address] [place] [address] Discharge Disposition: Home or Self Care 11/19/2023 1:00 PM CDT Comprehensive Visit Department of Cardiovascular Diseases in [address] [phone] Teja Solorzano APRN, C.N.P. [address] [place] [phone] Discharge Disposition: Home or Self Care 02/23/2024 8:45 AM CLEAN IN PLACES OPERATOR Office Visit Department of Dermatology in [address] [phone] Lacy Dykes M.D. [address] [place] [phone] Scheduled Referrals Name Type Priority Associated Diagnoses Order Schedule Cardiovascular Diseases Referral Outpatient Referral Routine Palpitations Expected: 06/24/2023 (Approximate), Expires: 09/23/2024 documented as of this encounter Visit Diagnoses Diagnosis Palpitations- Primary documented in this encounter Additional Health Concerns Assessment Noted Time PHQ-9 Depression Total Score: 2 04/22/19 16 11:24 AM CLEAN IN PLACES OPERATOR documented as of this encounter Care Teams Program Director Group Work Relationship Specialty Start Date End Date Elsewhere, Pcp PCP - General Family Medicine 06/16/20 documented as of this encounter
--- OUTSIDE RECORDS SUMMARY | 2023-09-19 15:33 | XMS_ITS | Encounter Summary ---
Author Organization [facility] er Address [address] [place] [address] Care Team Providers Care Experience Design Director Name Role Phone Jennifer Carranza SENIOR PACKAGING ENGINEER, GEOPHYSICAL COMPUTER Primary Care Provi tien Reason for Visit * Reason Onset Date Comments Med Refill 08/18/2018 Encounter Details Date Type Department Care Team (Late st Contact Info) Description 08/18/2018 Refill [place] [address] [place] [address] Jennifer Carranza, SENIOR PACKAGING ENGINEER, GEOPHYSICAL COMPUTER [address] [place] [address] Hypothyroidism, unspecified type (Primary Dx) Social History [...] due for appt or labs, please advise manager decision support or PSR to assist scheduling documented in this encounter Plan of Treatment Not on file documented as of this encounter Visit Diagnoses Diagnosis Hypothyroidism, unspecified type- Primary documented in this encounter Care Teams Experience Design Director Relationship Specialty Start Date End Date Jennifer Carranza APRN, [place] [address] [place] [address] PCP - General Family Medicine 11/12/21 12/19/22 documented as of this encounter
== END 2023-09-15 17:55 | disposition home or self-care (01) ==
LOC: AMB 09-19 15:29
PROVIDERS: PCP Nurse Practitioner Family; Visit Provider Family Medicine
DX: S22.32XA Fracture of one rib, left side, initial encounter for closed fracture (principal)
CPT/HCPCS: A0425; A0427

== ENCOUNTER 2023-10-13 09:58 | Outpatient (CLI) | payer MEDICARE, SELFPAY ==
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
--- OUTSIDE RECORDS SUMMARY | 2023-10-13 10:04 | XMS_ITS | Encounter Summary ---
Author Organization [facility] Address [address] [place] [phone] Phone Care Team Providers Care Half Backer Name Role Phone Unavailable Primary Care Provider [...] on file documented as of this encounter Procedures Procedure [...]
--- OUTSIDE RECORDS SUMMARY | 2023-10-13 10:04 | XMS_ITS | Encounter Summary ---
Author Organization [facility] Address [address] [place] [phone] Phone Care Team Providers Care Captain Of Guards Name Role Phone Unavailable Primary Care Provider [...]
--- OUTSIDE RECORDS SUMMARY | 2023-10-13 10:04 | XMS_ITS | Encounter Summary ---
Author Organization [facility] Address [address] [place] [address] Phone Care Team Providers Care Makeup Sales Advisor Name Role Phone Unavailable Primary Care Provider [...]
--- OUTSIDE RECORDS SUMMARY | 2023-10-13 10:04 | XMS_ITS | Encounter Summary ---
Author Organization [facility] Address [address] [place] [address] Phone Care Team Providers Care Egg Caser Name Role Phone Unavailable Primary Care Provider Unavailabl e Encounter Details Date Type Department Care Team (Late st Contact Info) Description 09/16/2023 Orders Only [facility] Film Room [facility] Radiology Department [facility] [address] [address] Provider, [place] [address] Referral of patient (Primary Dx) Social History Tobacco Use Types Packs/Day Years Used Date Smoking Tobacco: Never Assessed Sex and Gender Information Value Date Recorded Sex Assigned at Not on file Gender Identity Not on file Sexual Orientation Not on file documented as of this encounter Plan of Treatment Not on file documented as of this encounter Results * XR UPPER EXTREMITY OUTSIDE FILMS (09/15/2023 5:22 PM CDT) Narrative User, [id number] - 09/16/2023 6:25 AM CDT Outside Film Only Outside Provider RAD OUTSIDE FILMS documented in this encounter Visit Diagnoses Diagnosis Referral of patient- Primary Referral of patient without examination or treatment documented in this encounter
--- OUTSIDE RECORDS SUMMARY | 2023-10-13 10:04 | XMS_ITS | Encounter Summary ---
Author Organization [facility] Address [address] [place] [phone] Phone Care Team Providers Care Lance Crewmember Name Role Phone Unavailable Primary Care Provider Unavailabl e Encounter Details Date Type Department Care Team (Late st Contact Info) Description 09/16/2023 Documentation Only Unspecified Department [place] Unknown, Provider Social [...]
--- OUTSIDE RECORDS SUMMARY | 2023-10-13 10:04 | XMS_ITS | Encounter Summary ---
Author Organization [facility] Address [address] [place] [address] Phone Care Team Providers Care Research Professor Of Biostatistics Name Role Phone Unavailable Primary Care Provider Unavailabl e Encounter Details Date Type Department Care Team (Latest Contact Info) Description 10/06/2023 Travel Social History Tobacco Use Types Packs/Day [...]
--- OUTSIDE RECORDS SUMMARY | 2023-10-13 10:04 | XMS_ITS | Encounter Summary ---
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 automatically adjusted from order being discontinued) polyethylene glycol 3350 (MIRALAX;GLYCOLAX) packet 17 g 17 g, Oral, DAILY, First dose on Fri09/17/23 at 0930, Until Discontinued 0954 (Given - Provider: Mariaelena Floyd RN) 075 (Given - Provider: Mariaelena Floyd RN) 0850 (Given - Provider: Efren Carlton, ERIC) sennosides (SENOKOT) tablet 8.6 mg 8.6 mg, Oral, BID, First dose on Fri09/17/23 at 0930, Until Discontinued 0954 (Given - Provider: Mariaelena Floyd RN)1999 (Given - Provider: Lynn Smalls, ERIC) 075 (Given - Provider: Mariaelena Floyd RN)1957 (Given - Provider: Marysol Persaud, ERIC) 0849 (Given - Provider: Efren Carlton, ERIC) traZODone (DESYREL) tablet 50 mg 50 mg, Oral, BEDTIME, First dose on Fri09/15/23 at 2355, Until Discontinued 1999 (Given - Provider: Lynn Smalls, ERIC) 1958 (Given - Provider: Marysol Persaud, ERIC) valsartan (DIOVAN) tablet 40 mg 40 mg, Oral, BID, First dose on Fri09/16/23 at 0955, Until Discontinued 08 (Given - Provider: Mariaelena Floyd RN)1999 (Given - Provider: Lynn Smalls, ERIC) 0752 (Given - Provider: Mariaelena Floyd, ERIC)1959 (Given - Provider: Marysol Persaud, ERIC) 0849 (Given - Provider: Efren Carlton RN) VTE Anti Xa Monitoring Does not apply, PROTOCOL, Starting on Fri09/17/23 at 0948, Until Fri09/19/23 at 2024 PRN Medication Order 09/17/2023 09/18/2023 09/19/2023 HYDROmorphone PF (DILAUDID) 1 mg/mL injection 0.2 mg (CANCELED) 0.2 mg, IV Push, Q2H PRN, Starting on Fri09/15/23 at 2349, Until Fri09/19/23 at 0803, Severe Pain (Use First) 0313 (Given - Provider: Iona Toledo RN) melatonin tablet 3 mg 3 mg, Oral, BEDTIME PRN, Starting on Fri09/15/23 at 2349, Until Fri09/19/23 at 2024, Sleep 2359 (Given - Provider: Blair Salgado RN) ondansetron (ZOFRAN) 4 mg/2 mL injection 4 mg 4 mg, IV Push, Q 8H PRN, Starting on Fri09/15/23 at 2349, Until Fri09/19/23 at 2024, Nausea/Vomiting (Use First) oxyCODONE (ROXICODONE) tablet 5-10 mg 5-10 mg, Oral, Q4H PRN, Starting on Fri09/16/23 at 0757, Until Fri09/19/23 at 2024, Moderate Pain (Use First) 0538 (Given - Provider: Iona Toledo RN)0954 (Given - Provider: Mariaelena Floyd RN)1411 (Given - Provider: Mariaelena Floyd, ERIC)1847 (Given - Provider: Lynn Smalls RN)2358 (Given - Provider: Blair Salgado RN) 0340 (Given - Provider: Blair Salgado RN)0752 (Given - Provider: Mariaelena Floyd RN)1226 (Given - Provider: Mariaelena Floyd RN)1718 (Given - Provider: Marysol Persaud RN)2206 (Given - Provider: Marysol Persaud RN) 8767 (Given - Provider: Holley Stein, ERIC)1004 (Given - Provider: Efren Carlton, RN)1422 (Given - Provider: Efren Carlton, ERIC) Linked Groups Order Group 1: DC MED REC REVIEW BY PHARMACYJump to med Discharge Date: 09/19/2023, Discharge Location: Home, Anticipated Discharge Time: 10 am - 2 pm, Discharge Medication Orders: DC Med Orders Final, Does not apply, PROTOCOL, Starting on Fri09/19/23 at 0829, Until Fri09/19/23 at 2024 And Discharge Med Rec Final Review by Pharmacy (CANCELED) Routine, Order to be placed by provider [...]
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
--- OUTSIDE RECORDS SUMMARY | 2023-10-13 10:04 | XMS_ITS | Encounter Summary ---
Author Organization [facility] Address [address] [place] [phone] Phone Care Team Providers Care Control Clerk [employer] Name Role Phone Unavailable Primary Care Provider [...]
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
--- OUTSIDE RECORDS SUMMARY | 2023-10-13 10:05 | XMS_ITS | Encounter Summary ---
Author Organization [facility] Address [address] [place] [address] Care Team Providers Care Service Advocate Contact Name Role Phone Jennifer Carranza JOB PUTTER UP AND TICKET PREPARER, MUCK HAULER Primary Care Provi tien Reason for Visit * Reason Onset Date Comments Med Refill 08/18/2018 Encounter Details Date Type Department Care Team (Late st Contact Info) Description 08/18/2018 Refill [place] [address] [place] [address] Jennifer Carranza, JOB PUTTER UP AND TICKET PREPARER, MUCK HAULER [address] [place] [id number] Hypothyroidism, unspecified type (Primary Dx) Social History [...] due for appt or labs, please advise air support operations operator or PSR to assist scheduling documented in this encounter Plan of Treatment Not on file documented as of this encounter Visit Diagnoses Diagnosis Hypothyroidism, unspecified type- Primary documented in this encounter Care Teams Service Advocate Contact Relationship Specialty Start Date End Date Jennifer Carranza APRN, PAOLO [address] [place] [address] PCP - General Family Medicine 11/12/21 12/19/22 documented as of this encounter
--- OUTSIDE RECORDS SUMMARY | 2023-10-13 10:05 | XMS_ITS | Encounter Summary ---
Author Organization [facility] er Address [address] [place] [address] Care Team Providers Care Mutuel Cashier Name Role Phone Jennifer Carranza APRN, BUILDING CONSULTANT Primary Care Provi tien Reason for Visit * Reason Comments Med Refill Encounter Details Date Type Department Care Team (Late st Contact Info) Description 09/30/2018 Refill [place] [address] [place] [address] Jennifer Carranza, ASSEMBLY CLEANER, BUILDING CONSULTANT [address] [place] [id number] Insomnia, unspecified type Social History Tobacco Use [...] Family Three times a week 09/25/2018 Attends [employer] Services Never 09/25 Active Member of Clubs or Organizations No 09/25/2018 Attends Club or Organization Meetings Never 09/25/2018 Marital Status Living with partner 09/25/2018 Overall Financial Resource Strain (CARDIA) Answe r Date Recorded Difficulty of Paying Living Expenses Not hard at all 09/25/2018 PHQ-2 Answer Date Recorded PHQ-2 Score 0 08/05/2018 [facility] - Occupational [...] type documented in this encounter Care Teams Mutuel Cashier Relationship Specialty Start Date End Date Jennifer Carranza, ASSEMBLY CLEANER, BUILDING CONSULTANT [address] [place] [address] PCP - General Family Medicine 11/12/21 12/19/22 documented as of this encounter
--- OUTSIDE RECORDS SUMMARY | 2023-10-13 10:05 | XMS_ITS ---
Author Organization [facility] Address [address] [place] [address] Care Team Providers Care Sheet Metal Shop Foreman Name Role Phone Unavailable Unavailable Unavailable Surgery Details Not on file Complications Check Surgery Details section. Procedure Estimated Blood Loss Check Surgery Details section. Procedure Findings Check Surgery Details section. Procedure Specimens Taken Check Surgery Details section.
--- OUTSIDE RECORDS SUMMARY | 2023-10-13 10:05 | XMS_ITS | Clinical Summary ---
Author Organization [facility] Address [address] [place] [address] Care Team Providers Care Steel Estimator Name Role Phone Elsewhere, Pcp Primary Care Provider Unavailabl e Source Comments Patient records contain information from all sites at [facility]. For routine questions regarding patient records, call [phone] during business hours, M-F 8:00 AM - 5:00 PM Central Time. Record requests for emergency care only can be directed to [phone] at any time.[facility] Allergies Active Allergy Reactions Criticality Noted [...] Overview: Added automatically from request for surgery [id number] Pain Knee Left 11/16/2019 Overview: Added automatically from request for surgery [id number] Anterior Cruciate Ligament Reconstruction Status Post 05/29/2017 Hypertension NOS 05/26/2017 Hypothyroidism Post Radio Iodine 05/26/2017 Overview: Grave's disease s/p MANZO resulting in hypothyroidism 02/2022 Stopped cytomel, she reported low TSH in PCP at [facility]. Lost 30 lbs in past year, intentionally. Follow up TSH in Mar. She realizes further dose adjustment may be necessary. Weight based replacement is about 100 mcg. She is taking it consistently and correctly. Hyperlipidemia 05/26/2017 Pain Knee Right 05/22/2017 Overview: Added automatically from request for surgery [id number] Depression/Beckie/Bipolar NOS 04/18/2015 Overview: Disorder Mood NOS Dysthymia 06/11/2011 Overview: Dysthymic Disorder Limitation Of Motion Finger Right Follow Up Examination Postoperative Visit Vertigo Benign Paroxysmal Positional Left Vertigo Benign Paroxysmal Positional Bilateral Encounters Date Type Department Care Team Description 10/01/2023 Clinical Communication Department of Cardiovascular Diseases in [address] [phone] Fatoumata Dillon, R.N. 09/22/2023 Clinical Communication Department of Cardiovascular Diseases in [address] [phone] Teja Solorzano, DOCTOR OF MEDICINE, C.N.P. Reschedule (Reschedule ECHO appt to 11/13 from 10/15 due to L side fractured ribs/scapula) from Last 3 Months Immunizations Name Administration [...] - MODE RNA (12 YEARS AND OLDER) [id number] 04/10/2023 SARS-COV-2 (COVID-19) - PFIZ ER (Discontinued)(12 [...] any clubs o r organizations such as druze groups, unions, fraternal [...] when you are drinking? 1 or 2 Q3: How often do you have si x or more drinks on one occasion? Never 07/30/2021 Overall Financial Resource Strain (CARDIA) Answe r Date Recorded How hard is it for you to pa y for the very basics like food, housing, medical care, and heating? Not hard at all 07/30/2021 [employer] [place] of Occupat ional Health - Occupational Stress [...] Sex Assigned at Female 05/19/2017 11:19 AM DIGITAL PRINTER Gender Identity Female 05/19/2017 11:19 AM DIGITAL PRINTER Sexual Orientation Straight 05/19/2017 11 :19 AM DIGITAL PRINTER Last Filed Vital Signs Vital Sign Reading Time Taken Comments Blood Pressure 136/87 03/04/2022 7:47 AM DIGITAL PRINTER Pulse 79 03/04/2022 7:47 AM DIGITAL PRINTER Temperature 36.9 ??C (98.4 ??F) 03/12/2018 1 1:45 AM DIGITAL PRINTER Respiratory Rate 19 03/12/2018 11:3 0 AM DIGITAL PRINTER Oxygen Saturation 95% 03/12/2018 11: 30 AM DIGITAL PRINTER Inhaled Oxygen Concentration - - Weight 64.7 kg (142 lb 10.2 oz) 03/04/2022 7:47 AM DIGITAL PRINTER Height 158.9 cm (5' 2.56) 03/04/2022 7:47 AM CS T Body Mass Index 25.62 03/04/2022 7:47 AM DIGITAL PRINTER Plan of Treatment Upcoming Encounters Date Type Department Care Team (Latest Contact Info) Description 11/14/2023 1:30 PM CDT Appointment Department of Cardiovascular Diseases in [address] [phone] Jennifer Carranza, C.N.P. [address] [place] [phone] 11/19/2023 1:00 PM CDT Comprehensive Visit Department of Cardiovascular Diseases in [address] [phone] Teja Solorzano APRN, C.N.P. [address] [place] [phone] Discharge Disposition: Home or Self Care 03/15/2024 8:45 AM DIGITAL PRINTER Office Visit Department of Dermatology in [address] [phone] Lacy Dykes M.D. [address] [place] [phone] Discharge Disposition: Home or Self Care Health Maintenance Due Date Last Done Comments CT Colonography 1955 Cologuard 1955 Hepatitis C Screening 1955 Colonoscopy 07/02/2018 07/03/2011 Colorectal Cancer Surveillance 07/02/2018 Potassium Level 03/06/2022 03/06/2021, 04/2019, 10/02/2018, Additional history exists Sodium Level 03/06/2022 03/06/2021, 04/2019, 10/02/2018, Additional history exists Office Visit for Blood Press ure Check / Re-check 03/04/2023 03/04/2022 Depression Screening (Annual PHQ-2) 04/07/2023 Fall Risk Screen (Annual) 04/07/2023 Creatinine Level (Kidney Fun ction Test) 06/18/2023 06/17/2022, 03/06/2021, 01/06/2020, Additional history exists COVID-19 Vaccine (2022-05 4 season) 2023 04/10/2023, 02/02/2022, 08/15/2021, Additional history exists Thyroid Stimulating Hormone (TSH) test for thyroid function 09/07/2023 09/06/2022, 05/28/2022, 03/22/2022, Additional history exists Influenza Vaccine (#1) 2024 , 01/15/2022, 01/25/2021, Additional history exists Mammogram 02/26/2024 02/25/2023, 02/06, 02/08/2022, Additional history exists Fasting Glucose for Diabetes Screening 03/06/2024 03/06/2021, 08/18/2015, 05/02/2014, Additional history exists Lipid (Cholesterol) Screening 03/06/2026, 01/06/2020, 10/02/2018, Additional history exists DTaP,Tdap,and Td Vaccines (4 - Td or Tdap) 09/16/2033 09/17/2023, 10/14/2008, 11/25/2005, Additional history exists Cervical Cancer Screening Discontinued 2019, 05/02/2014, 07/11/2011, Additional history exists Zoster Vaccines Completed 08/02/2020, 12/2019, 05/02/2014 Pneumococcal vaccine (65+ years) Completed 01/16/20, 01/25/2021 RSV vaccine - (32-3 6 weeks) or 60+ years Completed 03/10/2023 Medical Devices Implanted Type Area Tube Builder Airplane Device Identifier Shelf Expiration Date Model / Serial / Lot [place] Rigidfix Btb 2.7 - [id number] Implanted:Qty: 1 on 05/28/2017 at [facility] Hardware e.g. pins/screws /rods Right: Knee Depuy Mitek 07/06/2019 [id number] / / [id number] Anch Sut Crk Scrw Ft 2.2 - [id number] Implanted:Qty: 1 on 03/12/2018 by Anibal Larkin M.D. at [facility] Hardware e.g. pins/screws /rods Arthrex [id number] AR-1318FT / / Anch Sut Crk Scrw Ft 2.2 - [id number] Implanted:Qty: 1 on 03/12/2018 by Anibal Larkin M.D. at [facility] Hardware e.g. pins/screws /rods Arthrex [id number] AR-1318FT / / Patellar Tendon Implanted:Qty: 1 on 05/28/2017 at [facility] Knee Implant Right: Knee [employer] [id number] 11/22/2020 [id number] / [id number] / [id number] Interference Screw Implanted:Qty: 1 on 05/28/2017 at [facility] Knee Implant Right: Knee Ribeiro and Nephew [id number] 07/19/2019 [id number] / / [id number] Procedures Procedure Name Priority Date/Time Associated Diagnosis Comments BI BREAST SCREENING BILATERAL WITH TOMOSYNTHESIS RAD - Routine (most inpatients and all outpatients) 02/25/2023 8:12 AM DIGITAL PRINTER Screening Mammogram Breast Cancer THYROID-STIMULATING HORMONE-SENSITIVE (S-TSH) Routine 09/06/2022 8:22 AM CDT Hypothyroidism Post Radio Iodine CREATININE WITH EGFR, S/P Routine 06/17/2022 8:23 AM CDT Osteoporosis Post Menopausal Without Pathological Fracture LIPID PANEL, S Routine 03/06/2021 7:19 AM DIGITAL PRINTER Graves' Disease Iron Deficiency Anemia Screening Exam Hyperlipidemia Incontinence Urinary COMPREHENSIVE METABOLIC PANEL, S/P Routine 03/06/2021 7:19 AM DIGITAL PRINTER Graves' Disease Iron Deficiency Anemia Screening Exam Hyperlipidemia Incontinence Urinary THINPREP SCREEN HPV REFLEX Routine 05/02/2014 9:00 AM DIGITAL PRINTER from Last 3 Months or Most Recently Relevant to Health Maintenance Results * BI Breast Screening Bilateral with Tomosynthesis (02/25/2023 8:12 AM DIGITAL PRINTER) Anatomical Region Laterality Modality Breast, Breast Imaging RST L OS, Breast Imaging ARZ LOS, Breast Imaging FLA LOS Bilateral Mammography 02/25/2023 11:0 7 AM DIGITAL PRINTER Impressions 02/25/2023 11:11 AM DIGITAL PRINTER Negative. RECOMMENDATION: ??Annual Screening Mammogram ASSESSMENT: ??BI-RADS: 1: Negative. Narrative 02/25/2023 11:11 AM DIGITAL PRINTER EXAM: ??BI BREAST SCREENING BILATERAL WITH TOMOSYNTHESIS [...] ASSESSMENT: BI-RADS: 1: Negative. Sunny Collado M.D. [facility] BI PROCEDUR ES * S-TSH (Thyroid-Stimulating Hormone - Sensitive) (09/06/2022 8:22 AM CDT) TSH, Sensitive 0.6 0.3 - 4.2 mIU/L 09/06/2022 11:56 AM CDT CNFL Blood (Blood, Venous) 09/06/2022 8:22 AM CDT 09/06/2022 8:22 AM CDT Azam Rasheed M.D. LAB BLOOD ADD-ON Performing Organization Address [facility] [place] [address], [place] [address] * Creatinine with Estimated GFR (06/17/2022 8:23 AM CDT) Creatinine 0.74 0.59 - 1.04 mg/dL 06/17/2022 9:01 AM CDT CNFL Estimated GFR (eGFR) 89 >=60 mL/min/BSA 06/17/2022 9:01 AM CDT [place] Comment: Estimated GFR calculated using the 2020 CKD_EPI creatinine equation. Blood (Blood, Venous) 06/17/2022 8:23 AM CDT 06/17/2022 8:25 AM CDT Urmila Xiao M.D., Ph.D. LAB BLOOD ADD-O N Performing Organization Address City/[facility]/[place] [address], [place] [address] * Lipid Panel (03/06/2021 7:19 AM DIGITAL PRINTER) Cholesterol, Total 197 mg/dL 2020 7:41 AM DIGITAL PRINTER CNFL Comment: ----REFERENCE VALUE---- Desirable: < 200 Borderline high: 200 - 239 High: > or = 240 Triglycerides 77 mg/dL 03/06/2021 7:41 AM DIGITAL PRINTER CNFL Comment: ----REFERENCE VALUE---- Normal: <150 Borderline high: 150-199 High: 200-499 Very high: > or =500 Cholesterol, HDL 82 >=50 mg/dL 03/06/20 7:41 AM DIGITAL PRINTER CNFL Calculated LDL 100 mg/dL 03/06/2021 7:41 AM DIGITAL PRINTER CNFL Comment: ----REFERENCE VALUE---- Desirable: <100 mg/dL Above Desirable: 100-129 mg/dL Borderline High: 130-159 mg/dL High: 160-189 mg/dL Very High: >=190 mg/dL Cholesterol, Non-HDL, Calculated 115 mg/dL 03/06/2021 7:41 AM DIGITAL PRINTER CNFL Comment: ----REFERENCE VALUE---- Desirable: <130 Above Desirable: 130-159 Borderline high: 160-189 High: 190-219 Very high: > or =220 Blood (Blood, Venous) 03/06/2021 7:19 AM DIGITAL PRINTER 03/06/2021 7:21 AM DIGITAL PRINTER Jennifer Carranza C.N.P. LAB BLOOD ADD- ON Performing Organization Address City/State/[facility] Co de Phone Number [facility] [address] [place] [address], [facility] in [address] [address] * Comprehensive Metabolic Panel (03/06/2021 7:19 AM DIGITAL PRINTER) Potassium, P 4.3 3.6 - 5.2 mmol/L 03/06/2021 7:41 AM DIGITAL PRINTER CNFL Sodium, P 135 135 - 145 mmol/L 03/06/2021 7:41 AM DIGITAL PRINTER CNFL Chloride, P 101 98 - 107 mmol/L 03/06/2021 7:41 AM DIGITAL PRINTER CNFL Bicarbonate, P 24 22 - 29 mmol/L 03/06/2021 7:41 AM DIGITAL PRINTER CNFL Anion Gap, P 10 7 - 15 03/06/2021 7:41 AM DIGITAL PRINTER CNFL BUN (Blood Urea Nitrogen), P 12 6 - 21 mg/dL 03/06/2021 7:41 AM DIGITAL PRINTER CNFL Creatinine 0.74 0.59 - 1.04 mg/dL 03/06/2021 7:41 AM DIGITAL PRINTER CNFL eGFR-Black/ >90 >=60 mL/min/BS A 03/06/2021 7:41 AM DIGITAL PRINTER CNFL Comment: ----ADDITIONAL INFORMATION---- Estimated GFR calculated using the 2009 CKD_EPI creatinine equation. eGFR Non-Black/ 85 >=60 mL/min/BS A 03/06/2021 7:41 AM DIGITAL PRINTER CNFL Comment: ----ADDITIONAL INFORMATION---- Estimated GFR calculated using the 2009 CKD_EPI creatinine equation. Calcium, Total, P 9.2 8.8 - 10.2 mg/dL 03/06/2021 7:41 AM DIGITAL PRINTER CNFL Glucose, P 100 70 - 140 mg/dL 03/06/2021 7:41 AM DIGITAL PRINTER CNFL Protein, Total, P 7.0 6.3 - 7.9 g/dL 03/06/2021 7:41 AM DIGITAL PRINTER CNFL Albumin, P 4.2 3.5 - 5.0 g/dL 03/06/2021 7:41 AM DIGITAL PRINTER CNFL Aspartate Aminotransferase (AST), P 27 8 - 43 U/L 03/06/2021 7:41 AM DIGITAL PRINTER CNFL Alkaline Phosphatase, P 60 35 - 104 U/L 03/06/2021 7:41 AM DIGITAL PRINTER CNFL Alanine Aminotransferase (ALT), P 24 7 - 45 U/L 03/06/2021 7:41 AM DIGITAL PRINTER CNFL Bilirubin, Total, P 0.6 <=1.2 mg/dL 03/06/2021 7:41 AM DIGITAL PRINTER CNFL Blood (Blood, Venous) 03/06/2021 7:19 AM DIGITAL PRINTER 03/06/2021 7:21 AM DIGITAL PRINTER Jennifer Carranza C.N.P. LAB BLOOD ADD- ON [facility] [address] [place] [id number], [place] CNFL [facility] in [address] [address] * Pathology ThinPrep Screen HPV Reflex (05/02/2014 9:00 AM DIGITAL PRINTER) Interpretation [id number] POWERCHART [facility] See Comment POWERCHART Comment: A. ??ThinPrep Pap [...] 52, 56, 58, 59, 66, and 68. [facility] See Comment POWERCHART Comment: Report electronically signed by ROSALIA Haile(ASCP) 05/10/2014 07:55 Interpreted by: MILDRED Rowe (ASCP) [facility] See Comment POWERCHART Comment: A. ??ThinPrep Pap Test Screen (Cervical/Endocervical HPV Reflex): Received cloudy specimen in ThinPrep vial. Test Performed by: [place] [address] Car Dropper: Tushar Hernandez M.D. Cervix/Endocervix 05/02/2014 9:00 AM DIGITAL PRINTER Kimberlyn Alvarez APRN C.N.P., D.N.P. LAB PAP PATHDX ORDERABLES POWERCHART from Last 3 Months or Most Recently Relevant to Health Maintenance Care Teams Steel Estimator Relationship Specialty Start Date End Date Elsewhere, Pcp PCP - General Family Medicine 06/16/20
--- OUTSIDE RECORDS SUMMARY | 2023-10-13 10:05 | XMS_ITS | Encounter Summary ---
Author Organization [facility] Address [address] [place] [address] Care Team Providers Care Merchant Tailor Name Role Phone Elsewhere, Pcp Primary Care Provider Unavailabl e Reason for Visit * Reason Onset Date Comments Reschedule 09/22/2023 Reschedule ECHO appt to 11/13 from 10/15 due to L side fractured ribs/scapula Encounter Details Date Type Department Care Team (Latest Contact Info) Description 09/22/2023 Clinical Communication Department of Cardiovascular Diseases in [place], [place] [address] [place] [phone] Teja Solorzano, JOSE DANIEL, C.N.P. [address] [place] [phone] Reschedule (Reschedule ECHO appt to 11/13 from 10/15 due to L side fractured ribs/scapula) Social History Tobacco Use Types Packs/Day Years [...] week 07/30/2021 How often do you attend [facility] or jehovah's witness services? Patient declined 07/30/2021 Do you belong to any clubs o r organizations such as pentecostalism groups, unions, fraternal [...] and heating? Not hard at all 07/30/2021 [facility] of Occupat ional Health - Occupational Stress [...] Sex Assigned at Female 05/19/2017 11:19 AM CASE PICKER Gender Identity Female 05/19/2017 11:19 AM CASE PICKER Sexual Orientation Straight 05/19/2017 11 :19 AM CASE PICKER documented as of this encounter Plan of Treatment Upcoming Encounters Date Type Department Care Team (Latest Contact Info) Description 11/14/2023 1:30 PM CDT Appointment Department of Cardiovascular Diseases in [place], [place] [address] [place] [phone] Jennifer Carranza, C.N.P. [address] [place] [phone] 11/19/2023 1:00 PM CDT Comprehensive Visit Department of Cardiovascular Diseases in [place], [place] [address] [place] [phone] Teja Solorzano APRN, C.N.P. [address] [place] [phone] Discharge Disposition: Home or Self Care 03/15/2024 8:45 AM CASE PICKER Office Visit Department of Dermatology in [address] [phone] Lacy Dykes M.D. [address] [place] [phone] Discharge Disposition: Home or Self Care documented as of this encounter Visit Diagnoses Not on filedocumented in this encounter Additional Health Concerns Assessment Noted Time PHQ-9 Depression Total Score: 2 04/22/19 16 11:24 AM CASE PICKER documented as of this encounter Care Teams Merchant Tailor Relationship Specialty Start Date End Date Elsewhere, Pcp PCP - General Family Medicine 06/16/20 documented as of this encounter
--- OUTSIDE RECORDS SUMMARY | 2023-10-13 10:05 | XMS_ITS | Encounter Summary ---
Author Organization [facility] er Address [address] [place] [address] Care Team Providers Care Environmental Service Aide Name Role Phone Jennifer Carranza APRN, RN MEDICAL SURGICAL Primary Care Provi tien Reason for Visit * Reason Onset Date Comments Med Refill 01/29/2018 Encounter Details Date Type Department Care Team (Late st Contact Info) Description 01/29/2018 Refill [place] [address] [place] [address] Jennifer Carranza, JEWELRY SALES REPRESENTATIVE, RN MEDICAL SURGICAL [address] [place] [address] Social History Tobacco Use Types Packs/Day Years Used Date Smoking Tobacco: Never Assessed Sex and Gender Information Value Date Recorded Sex Assigned at Not on file Gender Identity Not on file Sexual Orientation Not on file documented as of this encounter Plan of Treatment Not on file documented as of this encounter Visit Diagnoses Not on filedocumented in this encounter Care Teams Environmental Service Aide Relationship Specialty Start Date End Date Jennifer Carranza APRN, RN MEDICAL SURGICAL [address] [place] [address] PCP - General Family Medicine 11/12/21 12/19/22 documented as of this encounter
--- OUTSIDE RECORDS SUMMARY | 2023-10-13 10:05 | XMS_ITS | Referral Summary ---
Author Organization [facility] Address [address] [place] [address] Care Team Providers Care Process Operator Name Role Phone Elsewhere, Pcp Primary Care Provider Unavailabl e Source Comments Patient records contain information from all sites at [facility]. For routine questions regarding patient records, call [phone] during business hours, M-F 8:00 AM - 5:00 PM Central Time. Record requests for emergency care only can be directed to [phone] at any time.[facility] Encounters Date Type Department Care Team Description 10/01/2023 Clinical Communication Department of Cardiovascular Diseases in [address] [phone] Fatoumata Dillon, REileen. 09/22/2023 Clinical Communication Department of Cardiovascular Diseases in [address] [phone] Teja Solorzano, TELLER MANAGER, C.N.P. Reschedule (Reschedule ECHO appt to 11/13 from 10/15 due to L side fractured ribs/scapula) from Last 3 Months Allergies Active Allergy [...] Overview: Added automatically from request for surgery [id number] Pain Knee Left 11/16/2019 Overview: Added automatically from request for surgery [id number] Anterior Cruciate Ligament Reconstruction Status Post 05/29/2017 Hypertension NOS 05/26/2017 Hypothyroidism Post Radio Iodine 05/26/2017 Overview: Grave's disease s/p MANZO resulting in hypothyroidism 02/2022 Stopped cytomel, she reported low TSH in PCP at [place]. Lost 30 lbs in past year, intentionally. Follow up TSH in Mar. She realizes further dose adjustment may be necessary. Weight based replacement is about 100 mcg. She is taking it consistently and correctly. Hyperlipidemia 05/26/2017 Pain Knee Right 05/22/2017 Overview: Added automatically from request for surgery [id number] Depression/Beckie/Bipolar NOS 04/18/2015 Overview: Disorder Mood NOS [...] - MODE RNA (12 YEARS AND OLDER) [id number] 04/10/2023 SARS-COV-2 (COVID-19) - PFIZ ER (Discontinued)(12 [...] week 07/30/2021 How often do you attend [facility] or restorationist services? Patient declined 07/30/2021 Do you belong to any clubs o r organizations such as alevism groups, unions, fraternal [...] and heating? Not hard at all 07/30/2021 [facility] [place] of Occupat ional Health - Occupational Stress [...] Sex Assigned at Female 05/19/2017 11:19 AM DATA PROCESSING SUPERVISOR Gender Identity Female 05/19/2017 11:19 AM DATA PROCESSING SUPERVISOR Sexual Orientation Straight 05/19/2017 11 :19 AM DATA PROCESSING SUPERVISOR Last Filed Vital Signs Vital Sign Reading Time Taken Comments Blood Pressure 136/87 03/04/2022 7:47 AM DATA PROCESSING SUPERVISOR Pulse 79 03/04/2022 7:47 AM DATA PROCESSING SUPERVISOR Temperature 36.9 ??C (98.4 ??F) 03/12/2018 1 1:45 AM DATA PROCESSING SUPERVISOR Respiratory Rate 19 03/12/2018 11:3 0 AM DATA PROCESSING SUPERVISOR Oxygen Saturation 95% 03/12/2018 11: 30 AM DATA PROCESSING SUPERVISOR Inhaled Oxygen Concentration - - Weight 64.7 kg (142 lb 10.2 oz) 03/04/2022 7:47 AM DATA PROCESSING SUPERVISOR Height 158.9 cm (5' 2.56) 03/04/2022 7:47 AM CS T Body Mass Index 25.62 03/04/2022 7:47 AM DATA PROCESSING SUPERVISOR Plan of Treatment Upcoming Encounters Date Type Department Care Team (Latest Contact Info) Description 11/14/2023 1:30 PM CDT Appointment Department of Cardiovascular Diseases in [address] [phone] Jennifer Carranza, C.N.P. [address] [place] [phone] 11/19/2023 1:00 PM CDT Comprehensive Visit Department of Cardiovascular Diseases in [address] [phone] Teja Solorzano APRN, C.N.P. [address] [place] [phone] Discharge Disposition: Home or Self Care 03/15/2024 8:45 AM DATA PROCESSING SUPERVISOR Office Visit Department of Dermatology in [address] [phone] Lacy Dykes M.D. [address] [place] [phone] Discharge Disposition: Home or Self Care Medical Devices Implanted Type Area Draw Frame Runner Device Identifier Shelf Expiration Date Model / Serial / Lot Brackenridge Rigidfix Btb 2.7 - [id number] Implanted:Qty: 1 on 05/28/2017 at [facility] Hardware e.g. pins/screws /rods Right: Knee Depuy Mitek 07/06/2019 [id number] / / [id number] Anch Sut Crk Scrw Ft 2.2 - [id number] Implanted:Qty: 1 on 03/12/2018 by Anibal Larkin M.D. at [facility] Hardware e.g. pins/screws /rods Arthrex [id number] AR-1318FT / / Anch Sut Crk Scrw Ft 2.2 - [id number] Implanted:Qty: 1 on 03/12/2018 by Anibal Larkin M.D. at [facility] Hardware e.g. pins/screws /rods Arthrex [id number] AR-1318FT / / Patellar Tendon Implanted:Qty: 1 on 05/28/2017 at [facility] Knee Implant Right: Knee [employer] [id number] 11/22/2020 [id number] / [id number] / [id number] Interference Screw Implanted:Qty: 1 on 05/28/2017 at [facility] Knee Implant Right: Knee Ribeiro and Nephew [id number] 07/19/2019 [id number] / / [id number] Procedures Procedure Name Priority Date/Time Associated Diagnosis Comments BI BREAST SCREENING BILATERAL WITH TOMOSYNTHESIS RAD - Routine (most inpatients and all outpatients) 02/25/2023 8:12 AM DATA PROCESSING SUPERVISOR Screening Mammogram Breast Cancer THYROID-STIMULATING HORMONE-SENSITIVE (S-TSH) Routine 09/06/2022 8:22 AM CDT Hypothyroidism Post Radio Iodine CREATININE WITH EGFR, S/P Routine 06/17/2022 8:23 AM CDT Osteoporosis Post Menopausal Without Pathological Fracture LIPID PANEL, S Routine 03/06/2021 7:19 AM DATA PROCESSING SUPERVISOR Graves' Disease Iron Deficiency Anemia Screening Exam Hyperlipidemia Incontinence Urinary COMPREHENSIVE METABOLIC PANEL, S/P Routine 03/06/2021 7:19 AM DATA PROCESSING SUPERVISOR Graves' Disease Iron Deficiency Anemia Screening Exam Hyperlipidemia Incontinence Urinary THINPREP SCREEN HPV REFLEX Routine 05/02/2014 9:00 AM DATA PROCESSING SUPERVISOR from Last 3 Months or Most Recently Relevant to Health Maintenance Results * BI Breast Screening Bilateral with Tomosynthesis (02/25/2023 8:12 AM DATA PROCESSING SUPERVISOR) Anatomical Region Laterality Modality Breast, Breast Imaging RST L OS, Breast Imaging ARZ LOS, Breast Imaging FLA LOS Bilateral Mammography 02/25/2023 11:0 7 AM DATA PROCESSING SUPERVISOR Impressions 02/25/2023 11:11 AM DATA PROCESSING SUPERVISOR Negative. RECOMMENDATION: ??Annual Screening Mammogram ASSESSMENT: ??BI-RADS: 1: Negative. Narrative 02/25/2023 11:11 AM DATA PROCESSING SUPERVISOR EXAM: ??BI BREAST SCREENING BILATERAL WITH TOMOSYNTHESIS [...] M.D. LAB BLOOD ADD-ON Performing Organization Address [facility] Co de Phone Number [facility] [address] [place] [address], [facility] [id number] * Creatinine with Estimated GFR (06/17/2022 8:23 AM CDT) Creatinine 0.74 0.59 - 1.04 mg/dL 06/17/2022 9:01 AM CDT CNFL Estimated GFR (eGFR) 89 >=60 mL/min/BSA 06/17/2022 9:01 AM CDT CNFL Comment: Estimated GFR calculated using the 2020 CKD_EPI creatinine equation. Blood (Blood, Venous) 06/17/2022 8:23 AM CDT 06/17/2022 8:25 AM CDT Urmila Xiao M.D., Ph.D. LAB BLOOD ADD-O N Performing Organization Address [facility] Co de Phone Number [facility] [address] [place] [address], [facility] [id number] * Lipid Panel (03/06/2021 7:19 AM DATA PROCESSING SUPERVISOR) Cholesterol, Total 197 mg/dL 2020 7:41 AM DATA PROCESSING SUPERVISOR CNFL Comment: ----REFERENCE VALUE---- Desirable: < 200 Borderline high: 200 - 239 High: > or = 240 Triglycerides 77 mg/dL 03/06/2021 7:41 AM DATA PROCESSING SUPERVISOR CNFL Comment: ----REFERENCE VALUE---- Normal: <150 Borderline high: 150-199 High: 200-499 Very high: > or =500 Cholesterol, HDL 82 >=50 mg/dL 03/06/20 7:41 AM DATA PROCESSING SUPERVISOR CNFL Calculated LDL 100 mg/dL 03/06/2021 7:41 AM DATA PROCESSING SUPERVISOR CNFL Comment: ----REFERENCE VALUE---- Desirable: <100 mg/dL Above Desirable: 100-129 mg/dL Borderline High: 130-159 mg/dL High: 160-189 mg/dL Very High: >=190 mg/dL Cholesterol, Non-HDL, Calculated 115 mg/dL 03/06/2021 7:41 AM DATA PROCESSING SUPERVISOR CNFL Comment: ----REFERENCE VALUE---- Desirable: <130 Above Desirable: 130-159 Borderline high: 160-189 High: 190-219 Very high: > or =220 Blood (Blood, Venous) 03/06/2021 7:19 AM DATA PROCESSING SUPERVISOR 03/06/2021 7:21 AM DATA PROCESSING SUPERVISOR Jennifer Carranza C.N.P. LAB BLOOD ADD- ON Performing Organization Address City/State/[facility] Co de Phone Number [facility] [address] [place] [address], [facility] [place] [address] * Comprehensive Metabolic Panel (03/06/2021 7:19 AM DATA PROCESSING SUPERVISOR) Potassium, P 4.3 3.6 - 5.2 mmol/L 03/06/2021 7:41 AM DATA PROCESSING SUPERVISOR CNFL Sodium, P 135 135 - 145 mmol/L 03/06/2021 7:41 AM DATA PROCESSING SUPERVISOR CNFL Chloride, P 101 98 - 107 mmol/L 03/06/2021 7:41 AM DATA PROCESSING SUPERVISOR CNFL Bicarbonate, P 24 22 - 29 mmol/L 03/06/2021 7:41 AM DATA PROCESSING SUPERVISOR CNFL Anion Gap, P 10 7 - 15 03/06/2021 7:41 AM DATA PROCESSING SUPERVISOR CNFL BUN (Blood Urea Nitrogen), P 12 6 - 21 mg/dL 03/06/2021 7:41 AM DATA PROCESSING SUPERVISOR CNFL Creatinine 0.74 0.59 - 1.04 mg/dL 03/06/2021 7:41 AM DATA PROCESSING SUPERVISOR CNFL eGFR-Black/ >90 >=60 mL/min/BS A 03/06/2021 7:41 AM DATA PROCESSING SUPERVISOR CNFL Comment: ----ADDITIONAL INFORMATION---- Estimated GFR calculated using the 2009 CKD_EPI creatinine equation. eGFR Non-Black/ 85 >=60 mL/min/BS A 03/06/2021 7:41 AM DATA PROCESSING SUPERVISOR CNFL Comment: ----ADDITIONAL INFORMATION---- Estimated GFR calculated using the 2009 CKD_EPI creatinine equation. Calcium, Total, P 9.2 8.8 - 10.2 mg/dL 03/06/2021 7:41 AM DATA PROCESSING SUPERVISOR CNFL Glucose, P 100 70 - 140 mg/dL 03/06/2021 7:41 AM DATA PROCESSING SUPERVISOR CNFL Protein, Total, P 7.0 6.3 - 7.9 g/dL 03/06/2021 7:41 AM DATA PROCESSING SUPERVISOR CNFL Albumin, P 4.2 3.5 - 5.0 g/dL 03/06/2021 7:41 AM DATA PROCESSING SUPERVISOR CNFL Aspartate Aminotransferase (AST), P 27 8 - 43 U/L 03/06/2021 7:41 AM DATA PROCESSING SUPERVISOR CNFL Alkaline Phosphatase, P 60 35 - 104 U/L 03/06/2021 7:41 AM DATA PROCESSING SUPERVISOR CNFL Alanine Aminotransferase (ALT), P 24 7 - 45 U/L 03/06/2021 7:41 AM DATA PROCESSING SUPERVISOR CNFL Bilirubin, Total, P 0.6 <=1.2 mg/dL 03/06/2021 7:41 AM DATA PROCESSING SUPERVISOR CNFL Blood (Blood, Venous) 03/06/2021 7:19 AM DATA PROCESSING SUPERVISOR 03/06/2021 7:21 AM DATA PROCESSING SUPERVISOR Jennifer Carranza C.N.P. LAB BLOOD ADD- ON [facility] [address] [place] [address], [facility] in [address] [address] * Pathology ThinPrep Screen HPV Reflex (05/02/2014 9:00 AM DATA PROCESSING SUPERVISOR) Interpretation [id number] POWERCHART HXThPrep Scrn [facility] See Comment POWERCHART Comment: A. [...] 58, 59, 66, and 68. HXThPrep Scrn [facility] See Comment POWERCHART Comment: Report electronically signed by Pritesh Lewis, SCT(ASCP) 05/10/2014 07:55 Interpreted by: MILDRED Rowe (ASCP) HX Spec DescDell [facility] See Comment POWERCHART Comment: A. ??ThinPrep Pap Test Screen (Cervical/Endocervical HPV Reflex): Received cloudy specimen in ThinPrep vial. Test Performed by: [address] [address] [place] Architect: Tushar Hernandez M.D. Cervix/Endocervix 05/02/2014 9:00 AM DATA PROCESSING SUPERVISOR Darrell Contreras APRNNGavino, D.N.P. LAB PAP PATHDX ORDERABLES POWERCHART from Last 3 Months or Most Recently Relevant to Health Maintenance Care Teams Process Operator Relationship Specialty Start Date End Date Elsewhere, Pcp PCP - General Family Medicine 06/16/20
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
--- OUTSIDE RECORDS SUMMARY | 2023-10-13 10:05 | XMS_ITS | Encounter Summary ---
Author Organization [facility] Address [address] [place] [address] Care Team Providers Care Technology Resource Teacher Name Role Phone Jennifer Carranza SHOE POLISHER, COUNSELING DEPARTMENT CHAIR Primary Care Provi tien Reason for Visit * Reason Onset Date Comments Med Refill 01/29/2018 Encounter Details Date Type Department Care Team (Late st Contact Info) Description 01/29/2018 Refill [place] [address] [place] [address] Jennifer Carranza, SHOE POLISHER, COUNSELING DEPARTMENT CHAIR [address] [place] [phone] Insomnia, unspecified type Social History Tobacco Use [...] type documented in this encounter Care Teams Technology Resource Teacher Relationship Specialty Start Date End Date Jennifer Craranza APRN, COUNSELING DEPARTMENT CHAIR [address] [place] [address] PCP - General Family Medicine 11/12/21 12/19/22 documented as of this encounter
--- OUTSIDE RECORDS SUMMARY | 2023-10-13 10:05 | XMS_ITS | Clinical Summary ---
Author Organization [facility] Address [address] [place] [address] Care Team Providers Care Superintendent Plant Name Role Phone Unavailable Primary Care Provider Unavailabl e Allergies Active Allergy Reactions Criticality Noted Date Comments Dtap-Ipv Vaccine 09/30/2012 Hylan G-F 20 Other Anaphylaxis High 03/03/2018 Wasps Pollen Extract 02/08/2005 Qwjoolq-Uazbsh-Apiwn Pertussis Wasp Venom Anaphylaxis High 04/11/2006 Medications [...] Overview: Added automatically from request for surgery [id number] H/O colonoscopy with polypectomy 02/10/2020 Overview: Colonoscopy 06/12/2007 ([facility]) - multiple polyps 3-7 mm in size; Normal colonoscopy in 06/2011 ([facility]); Colonoscopy with [facility] on 12/17/2016 - repeat in 10 years. Essential hypertension 12/30/2019 Osteopenia 12/30/2019 History of reconstruction of anterior cruciate ligament tear 05/29/2017 Hypothyroidism following radioiodine therapy Overview: Grave's disease s/p MANZO resulting in hypothyroidism 02/2022 Stopped cytomel, she reported low TSH in PCP at [place]. Lost 30 lbs in past year, intentionally. Follow up TSH in Mar. She realizes further dose adjustment may be necessary. Weight based replacement is about 100 mcg. She is taking it consistently and correctly. Knee pain 05/22/2017 Overview: Overview: Added automatically from request for surgery [id number] Insomnia 02/03/2017 Hyperlipidemia 04/30/2016 Hypothyroidism 12/04/2004 Overview: [...] often do you attend chur ch or scientologist services? Never 11/08/2022 Do you belong to any clubs o r organizations such as mandaeism groups, unions, fraternal [...] Date Recorded PHQ-9 Total Score 0 03/07/2023 [facility] - Occupational Stress Questionnaire Answer Date Recorded [...] slept in a mcc (including now)? No 11/08/2022 Education Answer Date [...] Comments Blood Pressure 120/70 03/07/2023 1:15 PM CLEANER LABORATORY EQUIPMENT Pulse 65 03/07/2023 1:15 PM CLEANER LABORATORY EQUIPMENT Temperature 36.3 ??C (97.4 ??F) 03/07/2023 1:15 PM CS T Respiratory Rate 16 03/07/2023 1:15 PM CLEANER LABORATORY EQUIPMENT Oxygen Saturation 95% 03/07/2023 1:15 PM CLEANER LABORATORY EQUIPMENT Inhaled Oxygen Concentration - - Weight 68.7 kg (151 lb 6.4 oz) 03/07/2023 1:15 P M CLEANER LABORATORY EQUIPMENT Height 154.9 cm (5' 1) 03/07/2023 1:15 PM CLEANER LABORATORY EQUIPMENT Body Mass Index 28.61 03/07/2023 1:15 PM CLEANER LABORATORY EQUIPMENT Plan of Treatment Health Maintenance Due Date Last Done Comments CT Colonography 1955 FIT-DNA 1955 Sigmoidoscopy 1955 iFOBT 1955 Medicare Annual Wellness Visit (AWV) 11/09/2023 11/08/2022 Influenza Vaccine (#1) 2023 , 01/15/2022, 01/25/2021, Additional history exists Mammogram 02/26/2024 02/25/2023, 02/06, 02/08/2022, Additional history exists Fall Risk Performed 03/07/2024 03/07/2023 Colonoscopy 12/17/2026 12/17/2016 Colorectal Cancer Screening 12/17/2026 Bone Density Scan 02/08/2027 02/08/2022, , 01/18/2019, Additional history exists DTaP,Tdap,and Td Vaccines (4 - Td or Tdap) 09/16/2033 09/17/2023, 10/14/2008, 11/25/2005, Additional history exists Pap Smear Discontinued 02/10/2020, 04/30/2016 Zoster Vaccines Completed 08/02/2020, 1012/2019, 05/02/2014 Pneumococcal Vaccine: 65+ Years Completed 01/15/2022, 01/25/2021 COVID-19 Vaccine Completed 04/10/2023, , 08/15/2021, Additional history exists HPV Vaccines Aged Out No longer eligi ble based on patient's age to complete this topic Procedures Procedure Name Priority Date/Time Associated Diagnosis Comments MAMMOGRAM BREAST SCREENING TOMOSYNTHESIS BILATERAL Routine 02/25/2023 8:12 AM CLEANER LABORATORY EQUIPMENT DEXA BONE DENSITY Routine 02/08/2022 9:4 9 AM CDT PAP TEST Routine 02/10/2020 11:18 AM CLEANER LABORATORY EQUIPMENT Cervical cancer screening from Last 3 Months or Most Recently Relevant to Health Maintenance Results * Pap Smear (02/10/2020 11:18 AM CLEANER LABORATORY EQUIPMENT) Sure Path PAP, screen 02/10/2020 11:18 AM CLEANER LABORATORY EQUIPMENT 02/11/2020 2:58 PM CLEANER LABORATORY EQUIPMENT Narrative [facility] - 02/17/2020 11:31 AM CLEANER LABORATORY EQUIPMENT ? [facility] ? [address] ?[place] [address] ? Patient: ?MARJAN HAMPTON ?Procedure: ? 02/10/2020 11:18 /Age/Sex: ??1955, 64 Y, F ? Received: ?02/11/2020 14:58 ?Accession #: ?? [id number] Billing: ?[id number] ?Patient Location: [facility] ?OFFICE Ordered by: ?? BRENDA GANNON MD ?Attending: ? BRENDA GANNON MD ? FARM MANAGEMENT AGENT CYTOLOGY FINAL REPORT SPECIMEN: (A) SURE PATH [...] RICHARDS(ASCP) Signed By: WM SOLIS <Sign Out Signature> Reported: ??02/17/2020 ? Page 1 of 1 Brenda Gannon MD LAB CYTOLOGY YARELI BRITT [facility] [address] [place] [address] from Last 3 Months or Most Recently Relevant to Health Maintenance
--- NOTE | 2023-10-13 10:15 | CRLHL7_ITS ---
For Patients: As a result of the Cures Act, medical imaging exams and procedure reports are released immediately into your electronic medical record. You may view this report before your referring provider. If you have questions, please contact your health care provider. INDICATION: Hypodensity in the pancreas on a previous CT; follow-up and further assessment. COMPARISON: CT chest, abdomen and pelvis with and without contrast September 15, 2023. TECHNIQUE: Precontrast T1 and T2 weighted imaging; T2 haste imaging; diffusion-weighted imaging; in- and out of phase imaging; postcontrast imaging including subtraction; 15 cc of dotarem contrast was injected. FINDINGS: A 1.5 x 0.8 cm benign cavernous hemangioma segment 3 of the liver. A 1.6 x 1 cm cystic lesion mid body of the pancreas with high signal on the precontrast T2 haste imaging and low signal on precontrast T1 weighted imaging without enhancement post contrast administration; rule out side-branch IPMN. Liver, spleen and pancreas are otherwise unremarkable. Gallbladder is unremarkable. No adrenal pathology. Kidneys are unremarkable. No retroperitoneal lymphadenopathy. No evidence of abdominal ascites. IMPRESSION: 1. A 1.6 x 1 cm cystic lesion mid body of the pancreas; rule out side-branch IPMN; follow-up MRI of the pancreas in 12 months suggested. 2. A 1.5 x 0.8 cm benign cavernous hemangioma segment 3 of the liver; no follow-up is needed. Dictated by Abelardo Greer MD @ 10/15/2023 9:38:20 AM (Electronically Signed)
== END 2023-10-13 09:59 | disposition home or self-care (01) ==
LOC: MRI 09:58
PROVIDERS: PCP Nurse Practitioner Family; Visit Provider Nurse Practitioner Family
DX: R93.89 Abnormal findings on diagnostic imaging of other specified body structures (principal); K86.2 Cyst of pancreas; D18.09 Hemangioma of other sites
CPT/HCPCS: 74183; A9575

== ENCOUNTER 2024-03-09 09:13 | Outpatient (CLI) | payer MEDICARE, SELFPAY | END 2024-03-09 09:14 | disposition home or self-care (01) | PROVIDERS: PCP Nurse Practitioner Family; Visit Provider Nurse Practitioner Family | DX: I10 Essential (primary) hypertension (principal); E03.9 Hypothyroidism, unspecified; M81.0 Age-related osteoporosis without current pathological fracture; E78.5 Hyperlipidemia, unspecified; Z13.228 Encounter for screening for other metabolic disorders | CPT/HCPCS: 80053; 80061; 83695; 85025 ==

== ENCOUNTER 2024-10-26 09:06 | Outpatient (CLI) | payer MEDICARE, SELFPAY | END 2024-10-26 09:07 | disposition home or self-care (01) | PROVIDERS: PCP Nurse Practitioner Family; Visit Provider Nurse Practitioner Family | DX: I10 Essential (primary) hypertension (principal); Z01.818 Encounter for other preprocedural examination | CPT/HCPCS: 80053; 85025 ==